=== PATIENT | female | born 1975 | race Caucasian/White ===

== ENCOUNTER 2019-10-24 13:59 | Emergency (ER) | payer MEDICARE, MEDICAID, SELFPAY ==
--- NOTE | 2019-10-24 14:02 | XR_ITS ---
WS: [id number] XR chest 1V portable [id number] REASON FOR EXAM: sob FINDINGS: A large hiatal hernia is noted. The heart is not enlarged mediastinal interfaces are normal. Peripheral lung show no pneumonia, pleural effusion, pulmonary edema, or mass effect. The hilum and apices are normal. No osseous abnormalities. XR/XR chest 1V portable [id number] IMPRESSION: Large hiatal hernia.
--- NOTE | 2019-10-24 14:02 | ECG_ITS ---
Measurements Intervals [place] Rate: 101 P: 23 TX: 157 QRS: -16 QRSD: 88 T: 58 QT: 379 QTc: 493 SINUS TACHYCARDIA LOW QRS VOLTAGE IN PRECORDIAL LEADS [QRS DEFLECTION < 1.0 mV IN CHEST LEADS] POSSIBLE ANTERIOR MYOCARDIAL INFARCTION,PROBABLY OLD Compared to ECG 08/31/2019 01:15:28 Myocardial infarct finding now present Sinus rhythm no longer present T-wave abnormality no longer present Electronically Signed On 10-24-2019 19:30:31 [employer]ES PROFESSIONAL [employer] by Odalis Johnston M.D. [email or web address]
[2019-10-24 14:05] VITALS: BP 137/94; PULSE 109; RESP 16; TEMP 36.4; O2SAT 98; BMI 31.8
[2019-10-24 15:00] LABS: Basophils # 0.1 10^3/uL (0.0-0.1); Basophils % 1.1 %; Eosinophils # 0.1 10^3/uL (0.0-0.8); Eosinophils % 3.2 %; Hematocrit 29.4 % (37.0-47.0); Hemoglobin 7.1 g/dL (11.5-15.3); Lymphocytes # 1.5 10^3/uL (0.8-4.8); Mean Corpuscular HGB Conc 24.1 g/dL (30.0-36.0); Mean Corpuscular Hemoglobin 20.4 pg (28.0-34.0); Mean Corpuscular Volume 84.5 fL (81-99); Monocytes # 0.4 10^3/uL (0.2-0.9); Monocytes % 9.6 %; Neutrophils # 2.2 10^3/uL (1.8-7.7); Neutrophils % 50.6 %; Nucleated Red Blood Cells % 0 %; Platelet Count 434 10^3/cmm (130-400); Red Blood Count 3.48 10^6/uL (4.1-5.3); Red Cell Distribution Width 19.1 % (12.1-15.1); White Blood Count 4.4 10^3/uL (4.0-10.0)
--- NOTE | 2019-10-24 15:17 | ED_ITS ---
Entered by Ruby Mann, acting as scribe for Luis Alberto Yang DO Oct 24, 2019 13:59 HPI - SOB/Dyspnea General: Chief Complaint: Shortness of Breath/Dyspnea Stated Complaint: SOB Time Seen by Provider: 10/24/19 15:16 PFSH ED PFSH: Social History (Updated 09/07/19 @ 15:45 by ARIAN Mohr) Smoking and tobacco status: current every day smoker Quit status (tobacco): has quit using tobacco Former quit date comment: Smoked for one year 10 cugarettes a day Alcohol intake: current Alcohol intake frequency: 0-2 Drinks per Day Lives independently: Yes Household members: spouse Course Vital Signs: Vital signs: Vital Signs Temperature 97.6 F 10/24/19 14:05 Pulse Rate 109 H 10/24/19 14:05 Respiratory Rate 16 10/24/19 14:05 Blood Pressure 137/94 10/24/19 14:05 Pulse Oximetry 98 10/24/19 14:05 MDM - SOB/Dyspnea Lab Data: Labs: Lab Results 10/24/19 Range/Units 14:42 WBC 4.4 (4.0-10.0) 10^3/ uL RBC 3.48 L (4.1-5.3) 10^6/u L Hgb 7.1 L (11.5-15.3) g/dL Hct 29.4 L (37.0-47.0) % MCV 84.5 (81-99) fL MCH 20.4 L (28.0-34.0) pg MCHC 24.1 L (30.0-36.0) g/dL RDW 19.1 H (12.1-15.1) % Plt Count 434 H (130-400) 10^3/c mm MPV 10.0 (7.4-10.4) fL Neut % (Auto) 50.6 % Lymph % (Auto) 35.0 % [place] % (Auto) 9.6 % Eos % (Auto) 3.2 % Baso % (Auto) 1.1 % Neut # (Auto) 2.2 (1.8-7.7) 10^3/u L Lymph # (Auto) 1.5 (0.8-4.8) 10^3/u L [place] # (Auto) 0.4 (0.2-0.9) 10^3/u L Eos # (Auto) 0.1 (0.0-0.8) 10^3/u L Baso # (Auto) 0.1 (0.0-0.1) 10^3/u L Nucleated RBC % (a uto) 0 % Nucleated RBCs # 0.0 /100WBC Imaging Data^: CXR: Radiologist's impression: [address] [address] XRay Report Signed Patient: Delores Mckeon #: [id number] : 1975Acct#:[id number] Age/Sex: 44 / FADM Date: 10/24/19 Loc: ERRoom/Bed: Attending Dr: Ordering Provider/Ordering MD: Navarro Plata MD Date of Service: 10/24/19 Procedure(s): XR chest 1V portable [id number] Accession Number(s): [id number] Report Number: [id number] WS: [id number] XR chest 1V portable [id number] REASON FOR EXAM: sob FINDINGS: A large hiatal hernia is noted. The heart is not enlarged mediastinal interfaces are normal. Peripheral lung show no pneumonia, pleural effusion, pulmonary edema, or mass effect. The hilum and apices are normal. No osseous abnormalities. XR/XR chest 1V portable [id number] IMPRESSION: Large hiatal hernia. Dictated By:Gwyn Irving DO Signed By:Gwyn Irving DOSigned Date/Time:10/24/191414 DD/ 13 Discharge Plan Discharge Prescriptions: No Action levothyroxine 200 mcg capsule 200 mcg PO ONCE RF: 0 levetiracetam [Keppra] 500 mg tablet 500 mg PO BID RF: 0 liothyronine [Cytomel] 25 mcg tablet 25 mcg PO ONCE RF: 0 furosemide [Lasix] 40 mg tablet 40 mg PO QAM RF: 0 potassium chloride [Klor-Con M20] 20 mEq tablet,ER particles/crystals 20 meq PO BID RF: 0 epinephrine [EpiPen 2-Tim] 0.3 mg/0.3 mL auto-injector 0.3 mg IM ONCE RF: 0 Dexilant 60 mg capsule,biphase delayed releas 60 mg PO ONCE RF: 0 pantoprazole [Protonix] 40 mg tablet,delayed release (DR/EC) 40 mg PO BID RF: 0 albuterol sulfate 0.63 mg/3 mL solution for nebulization 0.63 mg INHALATION TID RF: 0 mupirocin calcium 2 % cream 1 applic TOPICAL TID RF: 0 promethazine 25 mg suppository 25 mg AK Q6H PRNRF: 0 Symbicort 160-4.5 mcg/actuation HFA aerosol inhaler 2 puff INHALATION BID RF: 0 Eliquis 5 mg tablet 5 mg PO BID RF: 0 loratadine 10 mg tablet 10 mg PO ONCE RF: 0 folic acid 1 mg tablet 1 mg PO ONCE RF: 0 quetiapine 100 mg tablet 100 mg PO ONCE RF: 0 potassium chloride 20 mEq tablet extended release 20 meq PO ONCE RF: 0 ondansetron HCl 4 mg tablet 4 mg PO Q6H RF: 0 metoprolol succinate [Toprol XL] 50 mg tablet extended release 24 hr 50 mg PO ONCE RF: 0 albuterol 90 mcg/actuation aerosol INHALATION QID PRNRF: 0 Incruse Ellipta 62.5 mcg/actuation blister with device 1 inh INHALATION BID RF: 0 clonazepam 0.5 mg tablet 0.5 mg PO TID RF: 0 quetiapine [Seroquel] 100 mg tablet 100 mg PO BID RF: 0 quetiapine [Seroquel] 100 mg tablet 100 mg PO ONCE RF: 0 quetiapine [Seroquel] 25 mg tablet 25 mg PO ONCE RF: 0 Coding Level of Care Code 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
[2019-10-24 15:32] LABS: Alanine Aminotransferase 6 U/L (0-33); Albumin Level 2.9 g/dL (3.5-5.2); Alkaline Phosphatase 204 IU/L (35-105); Anion Gap 18.7 (5-19); Aspartate Amino Transferase 8 U/L (0-32); Blood Urea Nitrogen 5 mg/dL (6-20); Calcium 7.8 mg/dL (8.5-10.5); Carbon Dioxide 22 mmol/L (22-29); Chloride 102 mmol/L (98-107); Globulin 4.9 g/dL (1.3-4.6); Glomerular Filtration Rate 67.7 mL/min (90-130); Glucose 138 mg/dL (65-115); NT Pro B Type Natriuretic Pept 521 pg/mL (0-125); Potassium 3.7 mmol/L (3.5-5.1); Sodium 139 mmol/L (136-145); Total Bilirubin 0.3 mg/dL (0.15-1.2); Total Protein 7.8 g/dL (6.6-8.7)
--- NOTE | 2019-10-24 15:45 | ED_ITS ---
Entered by Ruby Mann, acting as scribe for Luis Alberto Yagn DO Oct 24, 2019 13:59 HPI - SOB/Dyspnea General: Chief Complaint: Shortness of Breath/Dyspnea Stated Complaint: SOB Time Seen by Provider: 10/24/19 15:16 Source: patient Mode of arrival: ambulatory Limitations: no limitations History of Present Illness: HPI Narrative: 44 yo Female presents to ED with complaint of shortness of breath. Pt states that she is having chest pain and gurgling in her lungs. Pt states that she feels like she does when her hemoglobin gets low. Pt states that her stools have been dark but she has also been taking iron supplements. MD elicited complaint: shortness of breath Severity: moderate Exacerbating factors: nothing Relieving factors: nothing Associated symptoms: Reports chest pain and cough; Deny abdominal pain, dizziness, extremity pain, fever(s), nausea, orthopnea, palpitations, polydipsia, polyuria, syncope or vomiting Treatment prior to arrival: none Review of Systems Const: Denies: fever, chills, body aches, fatigue, malaise or night sweats Eyes: Denies: change in vision or blurry vision ENMT: Denies: throat pain, oral sores/lesions, dental pain, nasal discharge or nasal congestion Card: Reports: chest pain, edema and swelling of feet/ankles; Denies: palpitations, irregular heart rhythm, syncope, shortness of breath on exertion, shortness of breath when lying down or leg pain with exertion Resp: Reports: shortness of breath and non-productive cough; Denies: productive cough or wheezing GI: Denies: abdominal pain, nausea, vomiting, vomiting blood, coffee grounds in vomit, difficulty swallowing, heartburn/indigestion, diarrhea, constipation, cramping, blood in stool or black tarry stool : Denies: flank pain, painful urination, urinary frequency, urinary urgency, urinary incontinence or blood in urine Musc: Denies: neck pain, back pain, extremity pain, extremity swelling, joint pain or joint swelling Skin/Breast: Denies: rash, itching or redness Neuro: Denies: headache, numbness in extremities, weakness in extremities, changes in sensation, lack of coordination, difficulty walking, frequent falls, dizziness, vertigo or confusion Psych: Denies: anxiety, depression, loss of interest, visual hallucinations, auditory hallucinations, suicidal ideation or homicidal ideation Endo: Denies: excessive urination, excessive thirst, tired all the time or cold intolerance Sonido/Lymph: Denies: easy bruising, easy bleeding, petechiae, enlarged lymph nodes or tender lymph nodes PFSH ED PFSH: Social History Smoking and tobacco status: current every day smoker Quit status (tobacco): has quit using tobacco Former quit date comment: Smoked for one year 10 cugarettes a day Alcohol intake: current Alcohol intake frequency: 0-2 Drinks per Day Lives independently: Yes Household members: spouse Physical Exam Const: COMMON NORMALS: average body habitus, oriented x3 and alert GENERAL APPEARANCE: cooperative, comfortable, well kempt and well developed NUTRITIONAL APPEARANCE: obese ORIENTATION/CONSCIOUSNESS: Yes awake, Yes oriented to person and Yes oriented to place HENMT: COMMON NORMALS: normocephalic, head/scalp atraumatic, EAC's normal, TM's normal bilaterally, external nose normal, moist oral mucous membranes and o ropharynx normal HEAD & SCALP: normocephalic and atraumatic NOSE: external nose normal EXTERNAL AUDITORY CANAL: EAC's normal TYMPANIC MEMBRANE: TM's normal bilaterally MOUTH: oral and palatal mucosa normal, lip normal and tongue normal THROAT: posterior oropharynx normal and tonsils normal Eye: COMMON NORMALS: PERRL, EOMs intact bilaterally, conjunctivae normal and no scleral icterus CONJUNCTIVA: Yes conjunctivae normal PUPIL: Yes PERRL Neck/C-Spine: COMMON NORMALS: full ROM, no lymphadenopathy, supple, no meningeal signs and thyroid normal THYROID: thyroid normal and asymmetrical Lymph: LYMPHATIC: no lymphadenopathy noted Resp: COMMON NORMALS: normal respiratory effort, no retractions, no use of accessory muscles and clear to auscultation bilaterally AUSCULTATION: clear to auscultation bilaterally Cardio: COMMON NORMALS: regular rate and regular rhythm RATE: regular rate RHYTHM: regular rhythm HEART SOUNDS: no murmurs GI: COMMON NORMALS: normal to inspection, nondistended, normoactive bowel sounds, soft to palpation and no hepatosplenomegaly PALPATION: Yes soft and Yes no hepatosplenomegaly : COMMON NORMALS: Yes no CVA tenderness BLADDER/KIDNEY EXAM: Yes no CVA tenderness Back/Pelvis: COMMON NORMALS: no CVA tenderness LUMBAR SPINE/LOWER BACK: Yes normal to inspection Extremity: COMMON NORMALS: no clubbing, cyanosis or edema, no calf tenderness and no pedal edema Neuro: COMMON NORMALS: oriented x3 SENSORIUM/ORIENTATION: Yes alert, Yes oriented to person and Yes oriented to place MENINGEAL SIGNS: Yes no meningeal signs Psych: APPEARANCE: Yes well kempt Skin: COMMON NORMALS: no rashes or lesions noted and skin turgor normal GENERAL SKIN EXAM: no rashes or lesions noted and turgor normal Course ED course: Prolonged ER course due to difficulty establishing IV for CTA. Discussed the patient does have pulmonary nodules only followed up she also needs to have anemia followed up she is chronically been anemic but she is still very low at this point and on think she needs to be transfused but likely may need to in the relatively near future encourage her to follow-up early next week return if has problems. Reevaluation(s): Reevaluation #1: Patient's IV was established at 19:40 after multiple attempts by nursing staff on day shift and mine shifter, causing delay in patient's CTA and further treatment. Vital Signs: Vital signs: Vital Signs Temperature 97.6 F 10/24/19 14:05 Pulse Rate 109 H 10/24/19 14:05 Respiratory Rate 16 10/24/19 14:05 Blood Pressure 137/94 10/24/19 14:05 Pulse Oximetry 98 10/24/19 14:05 MDM - SOB/Dyspnea Lab Data: Labs: Lab Results 10/24/19 10/24/19 Range/Units 14:42 14:42 WBC 4.4 (4.0-10.0) 10^3/ uL RBC 3.48 L (4.1-5.3) 10^6/u L Hgb 7.1 L (11.5-15.3) g/dL Hct 29.4 L (37.0-47.0) % MCV 84.5 (81-99) fL MCH 20.4 L (28.0-34.0) pg MCHC 24.1 L (30.0-36.0) g/dL RDW 19.1 H (12.1-15.1) % Plt Count 434 H (130-400) 10^3/c mm MPV 10.0 (7.4-10.4) fL Neut % (Auto) 50.6 % Lymph % (Auto) 35.0 % [place] % (Auto) 9.6 % Eos % (Auto) 3.2 % Baso % (Auto) 1.1 % Neut # (Auto) 2.2 (1.8-7.7) 10^3/u L Lymph # (Auto) 1.5 (0.8-4.8) 10^3/u L [place] # (Auto) 0.4 (0.2-0.9) 10^3/u L Eos # (Auto) 0.1 (0.0-0.8) 10^3/u L Baso # (Auto) 0.1 (0.0-0.1) 10^3/u L Nucleated RBC % (a uto) 0 % Nucleated RBCs # 0.0 /100WBC Sodium 139 (136-145) mmol/L Potassium 3.7 (3.5-5.1) mmol/L Chloride 102 (98-107) mmol/L Carbon Dioxide 22 (22-29) mmol/L Anion Gap 18.7 (5-19) BUN 5 L (6-20) mg/dL Creatinine 0.9 (0.5-0.9) mg/dL GFR Calculation 67.7 L (90-130) mL/min Glucose 138 H (65-115) mg/dL Calcium 7.8 L (8.5-10.5) mg/dL Total Bilirubin 0.3 (0.15-1.2) mg/dL AST 8 (0-32) U/L ALT 6 (0-33) U/L Alkaline Phosphata se 204 H (35-105) IU/L NT-Pro-B Natriuret Pep 521 H (0-125) pg/mL Total Protein 7.8 (6.6-8.7) g/dL Albumin 2.9 L (3.5-5.2) g/dL Globulin 4.9 H (1.3-4.6) g/dL Imaging Data^: CXR: Radiologist's impression: [address] [address] XRay Report Signed Patient: Delores Mckeon AUnit #: [id number] : 1975Acct#:[id number] Age/Sex: 44 / FADM Date: 10/24/19 Loc: ERRoom/Bed: Attending Dr: Ordering Provider/Ordering MD: Navarro Plata MD Date of Service: 10/24/19 Procedure(s): XR chest 1V portable [id number] Accession Number(s): [id number] Report Number: [id number] WS: [id number] XR chest 1V portable [id number] REASON FOR EXAM: sob FINDINGS: A large hiatal hernia is noted. The heart is not enlarged mediastinal interfaces are normal. Peripheral lung show no pneumonia, pleural effusion, pulmonary edema, or mass effect. The hilum and apices are normal. No osseous abnormalities. XR/XR chest 1V portable [id number] IMPRESSION: Large hiatal hernia. Dictated By:Gwyn Irving DO Signed By:Gwyn Irving DOSigned Date/Time:10/24/191414 DD/ 13 CTA Chest: Radiologist's impression: [place] [address] CT Scan Report Signed Patient: Delores Mckeon #: [id number] : 1975Acct#:[id number] Age/Sex: 44 / FADM Date: 10/24/19 Loc: ERRoom/Bed: Attending Dr: Ordering Provider/Ordering MD: Luis Alberto Yang DO Date of Service: 10/24/19 Procedure(s): CT angio chest PE protcl [id number] Accession Number(s): [id number] Report Number: [id number] PROCEDURE INFORMATION: Exam: CT Angiography Chest With Contrast Exam date and time: 10/24/2019 8:00 PM Age: 44 years old Clinical indication: Shortness of breath; Prior surgery; Surgery date: 6+ months; Surgery type: Port w revision; Patient HX: SOB w HX of dvt and chf; Additional info: Dyspnea, HX of dvt TECHNIQUE: Imaging protocol: Computed tomographic angiography of the chest with intravenous contrast. 3D rendering: MIP and/or 3D reconstructed images were created by the technologist. Total DLP: 572.55 mGy-cm Radiation optimization: All CT scans at this facility use at least one of these dose optimization techniques: automated exposure control; mA and/or kV adjustment per patient size (includes targeted exams where dose is matched to clinical indication); or iterative reconstruction. Contrast material: VISI 320; Contrast volume: 95 ml; Contrast route: 18G; COMPARISON: CTA Chest-Pulmonary Emb [id number] 11/28/2016 11:28 PM FINDINGS: Limitations: Study is somewhat limited by patient motion. Pulmonary arteries: There is no evidence of filling defects within the pulmonary arterial circulation to suggest pulmonary embolism. Aorta: Unremarkable. No aortic aneurysm. No aortic dissection. Lungs: There is 11 x 13 x 9 mm nodule in the right lower lobe abutting the major fissure on image number [id number] which is larger than on prior examinations. Further evaluation such as with PET CT scan is suggested. Pleural space: Unremarkable. No pneumothorax. No pleural effusion. Heart: Unremarkable. No cardiomegaly. No pericardial effusion. Mediastinum: A large hiatal hernia is present. Liver: There is an 8 mm benign-appearing cyst in the left lobe of the liver. Adrenals: The adrenal glands are normal. Lymph nodes: There are enlarged bilateral axillary lymph nodes which are changed from 11/28/2016, largest on the right measuring 13 x 19 mm and on the left measuring 13 x 17 mm. Further evaluation is suggested. Bones/joints: Unremarkable. No acute fracture. Soft tissues: Unremarkable. CT/CT angio chest PE protcl [id number] IMPRESSION: 1. No evidence of pulmonary embolism. 2. Enlarging right pulmonary nodule 3. Bilateral axillary adenopathy 4. Large hiatus hernia. Radiation Dose CTDIVOL = (mGy): DLP = 572.55 (mGy-cm) Dictated By:Elio Braden Signed By:Yobany Bradenigned Date/Time:10/24/192052 DD/ 51 Discharge Plan Discharge Patient Disposition: Home, Self-Care Clinical Impression: Pulmonary nodule, Axillary adenopathy, Pleuritic chest pain, COPD (chronic obstructive pulmonary disease) Condition: Stable Prescriptions: New promethazine 12.5 mg tablet 12.5 mg PO Q6H PRN (Reason: nausea and vomiting) Qty: 10 RF: 0 tramadol 50 mg tablet 50 mg PO Q6H PRN (Reason: pain) Qty: 14 RF: 0 No Action levothyroxine 200 mcg capsule 200 mcg PO ONCE RF: 0 levetiracetam [Keppra] 500 mg tablet 500 mg PO BID RF: 0 liothyronine [Cytomel] 25 mcg tablet 25 mcg PO ONCE RF: 0 furosemide [Lasix] 40 mg tablet 40 mg PO QAM RF: 0 potassium chloride [Klor-Con M20] 20 mEq tablet,ER particles/crystals 20 meq PO BID RF: 0 epinephrine [EpiPen 2-Tim] 0.3 mg/0.3 mL auto-injector 0.3 mg IM ONCE RF: 0 Dexilant 60 mg capsule,biphase delayed releas 60 mg PO ONCE RF: 0 pantoprazole [Protonix] 40 mg tablet,delayed release (DR/EC) 40 mg PO BID RF: 0 albuterol sulfate 0.63 mg/3 mL solution for nebulization 0.63 mg INHALATION TID RF: 0 mupirocin calcium 2 % cream 1 applic TOPICAL TID RF: 0 promethazine 25 mg suppository 25 mg [place] Q6H PRNRF: 0 Symbicort 160-4.5 mcg/actuation HFA aerosol inhaler 2 puff INHALATION BID RF: 0 Eliquis 5 mg tablet 5 mg PO BID RF: 0 loratadine 10 mg tablet 10 mg PO ONCE RF: 0 folic acid 1 mg tablet 1 mg PO ONCE RF: 0 quetiapine 100 mg tablet 100 mg PO ONCE RF: 0 potassium chloride 20 mEq tablet extended release 20 meq PO ONCE RF: 0 ondansetron HCl 4 mg tablet 4 mg PO Q6H RF: 0 metoprolol succinate [Toprol XL] 50 mg tablet extended release 24 hr 50 mg PO ONCE RF: 0 albuterol 90 mcg/actuation aerosol INHALATION QID PRNRF: 0 Incruse Ellipta 62.5 mcg/actuation blister with device 1 inh INHALATION BID RF: 0 clonazepam 0.5 mg tablet 0.5 mg PO TID RF: 0 quetiapine [Seroquel] 100 mg tablet 100 mg PO BID RF: 0 quetiapine [Seroquel] 100 mg tablet 100 mg PO ONCE RF: 0 quetiapine [Seroquel] 25 mg tablet 25 mg PO ONCE RF: 0 Discharge Orders: Discharge Order (Routine); Ordered 10/24/19 Ordered By: Luis Alberto Yang Referrals: Jacek Ventura MD [Physician] - (Follow-up on pulmonary nodules and axillary lymphadenopathy seen on CT 10/24/2019) Discharge Diet: Usual diet Discharge Activity: Increase activity as tolerated Activity Restrictions/Additional Instructions: supermarket manager will make arrangements for you for follow-up with Dr. Ventura Interventions: ED Discharge Assessment Last Done: 10/24/19 22:04 Discharge Date/Time: 10/24/19 22:00 Coding Level of Care Code ED Local Hazmat Driver for Chg Fwd Exam Comprehensive The documentation recorded by the Johnathan juárez Carmen, accurately reflects the service I personally performed and the decisions made by Celia lopez Curtis L, DO Oct 24, 2019 13:59
--- NOTE | 2019-10-24 16:24 | CTR_ITS ---
PROCEDURE INFORMATION: Exam: CT Angiography Chest With Contrast Exam date and time: 10/24/2019 8:00 PM Age: 44 years old Clinical indication: Shortness of breath; Prior surgery; Surgery date: 6+ months; Surgery type: Port w revision; Patient HX: SOB w HX of dvt and chf; Additional info: Dyspnea, HX of dvt TECHNIQUE: Imaging protocol: Computed tomographic angiography of the chest with intravenous contrast. 3D rendering: MIP and/or 3D reconstructed images were created by the technologist. Total DLP: 572.55 mGy-cm Radiation optimization: All CT scans at this facility use at least one of these dose optimization techniques: automated exposure control; mA and/or kV adjustment per patient size (includes targeted exams where dose is matched to clinical indication); or iterative reconstruction. Contrast material: VISI 320; Contrast volume: 95 ml; Contrast route: 18G; COMPARISON: CTA Chest-Pulmonary Emb [id number] 11/28/2016 11:28 PM FINDINGS: Limitations: Study is somewhat limited by patient motion. Pulmonary arteries: There is no evidence of filling defects within the pulmonary arterial circulation to suggest pulmonary embolism. Aorta: Unremarkable. No aortic aneurysm. No aortic dissection. Lungs: There is 11 x 13 x 9 mm nodule in the right lower lobe abutting the major fissure on image number [id number] which is larger than on prior examinations. Further evaluation such as with PET CT scan is suggested. Pleural space: Unremarkable. No pneumothorax. No pleural effusion. Heart: Unremarkable. No cardiomegaly. No pericardial effusion. Mediastinum: A large hiatal hernia is present. Liver: There is an 8 mm benign-appearing cyst in the left lobe of the liver. Adrenals: The adrenal glands are normal. Lymph nodes: There are enlarged bilateral axillary lymph nodes which are changed from 11/28/2016, largest on the right measuring 13 x 19 mm and on the left measuring 13 x 17 mm. Further evaluation is suggested. Bones/joints: Unremarkable. No acute fracture. Soft tissues: Unremarkable. CT/CT angio chest PE protcl [id number] IMPRESSION: 1. No evidence of pulmonary embolism. 2. Enlarging right pulmonary nodule 3. Bilateral axillary adenopathy 4. Large hiatus hernia. Radiation Dose CTDIVOL = (mGy): DLP = 572.55 (mGy-cm)
[2019-10-24] MEDS: LORazepam 2 mg/mL INJ 1 mL 1 MG IVP (17:14)
[2019-10-24] MEDS: hydrocortisone 100 mg/2 mL SDV IVP (20:02)
[2019-10-24] MEDS: diphenhydrAMINE 50 mg/mL SDV 1mL IVP (20:02)
[2019-10-24] MEDS: iodixanol 320 mg/mL 100mL Btl IV (20:19)
--- NOTE | 2019-10-27 14:08 | DCPLANNER ---
sales strategy manager had message to schedule a follow up appointment for patient with Dr. Ventura in [facility]. sales strategy manager called [facility], spoke with Renee, a follow up appointment was scheduled for , November 05, 2019 at 2:[address] Ventura. Clinic will call patient with appointment information.
--- NOTE | 2019-11-12 09:15 | DCPLANNER ---
Patient did not attend appointment scheduled for 11.05.19 with [facility].
== END 2019-10-24 22:00 | disposition home or self-care (01) ==
PROVIDERS: Emergency Medicine; Emergency Provider Family Medicine; PCP Internal Medicine
DX: R07.81 Pleurodynia (principal); J44.9 Chronic obstructive pulmonary disease, unspecified; R91.1 Solitary pulmonary nodule; R59.0 Localized enlarged lymph nodes; E66.9 Obesity, unspecified; D64.9 Anemia, unspecified; Z79.51 Long term (current) use of inhaled steroids; Z87.891 Personal history of nicotine dependence
CPT/HCPCS: 36415; 71045; 71275; 80053; 83880; 85025; 93005; 96374; 96375; 99282; 99284; J1200; J1720; J2060; Q9967

== ENCOUNTER 2019-12-18 05:48 | Emergency (ER) | payer MEDICARE, MEDICAID, SELFPAY ==
[2019-12-18 06:00] VITALS: BP 115/62; PULSE 84; RESP 24; TEMP 36.5; O2SAT 97; BMI 36.6
--- NOTE | 2019-12-18 06:10 | ECG_ITS ---
Measurements Intervals [place] Rate: 86 P: 27 NE: 175 QRS: -6 QRSD: 94 T: 0 QT: 381 QTc: 457 SINUS RHYTHM LOW QRS VOLTAGE IN PRECORDIAL LEADS [QRS DEFLECTION < 1.0 mV IN CHEST LEADS] NONSPECIFIC ST & T-WAVE ABNORMALITY Compared to ECG 10/24/2019 15:37:51 T-wave abnormality now present Sinus tachycardia no longer present Myocardial infarct finding no longer present Electronically Signed On 12-18-2019 18:25:01 CDT by Magda Bennett M.D. [email or web address]
--- NOTE | 2019-12-18 06:10 | XR_ITS ---
WS: [id number] PORTABLE CHEST HISTORY: sob COMPARISON: 10/24/2019 Minimal opacification at the RIGHT lung base is new. Ill-defined and subsegmental. LEFT lung is clear . No pleural effusion or pneumothorax. Cardiac size: Mildly enlarged cardiac silhouette. Mediastinum/Aorta: No mediastinal widening. Large hiatal hernia. No osseous abnormality seen. XR/XR chest 1V portable [id number] IMPRESSION: 1. Minimal atelectasis or pneumonitis at the RIGHT lung base. 2. Large hiatal hernia.
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
[2019-12-18 07:02] VITALS: BP 120/69; PULSE 90; RESP 18; O2SAT 100
[2019-12-18 07:42] VITALS: BP 123/95; PULSE 90; RESP 18; O2SAT 100
[2019-12-18 07:58] LABS: Influenza A by IFA Negative (Negative); Influenza B by IFA Negative (Negative)
== END 2019-12-18 07:40 | disposition left against medical advice (07) ==
PROVIDERS: Emergency Medicine; Emergency Provider Family Medicine; PCP Internal Medicine
DX: Z53.21 Procedure and treatment not carried out due to patient leaving prior to being seen by health care provider (principal); J44.9 Chronic obstructive pulmonary disease, unspecified; I50.9 Heart failure, unspecified
CPT/HCPCS: 12345; 71045; 87804; 93005; 99282; 99283; J1940

== ENCOUNTER 2020-01-05 12:19 | Outpatient (CLI) | payer MEDICARE, MEDICAID, SELFPAY ==
--- NOTE | 2020-01-05 12:42 | XR_ITS ---
WS: [id number] XR chest 2V* [id number] REASON FOR EXAM: Shortness of breath FINDINGS: Prominent hiatal hernia is present. The heart is not grossly enlarged. The lung hernandez are well aerated there is no pneumonia, pleural effusion, pulmonary edema, The hilum and apices are normal. XR/XR chest 2V* [id number] IMPRESSION: Prominent hiatal hernia.
[2020-01-05 12:43] LABS: Basophils % 0.9 %; Eosinophils # 0.2 10^3/uL (0.0-0.8); Eosinophils % 5.7 %; Lymphocytes # 1.2 10^3/uL (0.8-4.8); Mean Corpuscular HGB Conc 24.1 g/dL (30.0-36.0); Mean Corpuscular Hemoglobin 17.1 pg (28.0-34.0); Monocytes # 0.3 10^3/uL (0.2-0.9); Monocytes % 7.1 %; Neutrophils # 2.4 10^3/uL (1.8-7.7); Neutrophils % 57.3 %; Nucleated Red Blood Cells % 0 %; Platelet Count 310 10^3/cmm (130-400); Red Blood Count 2.86 10^6/uL (4.1-5.3); Red Cell Distribution Width 18.1 % (12.1-15.1); White Blood Count 4.2 10^3/uL (4.0-10.0)
[2020-01-05 12:53] LABS: Hematocrit 20.3 % (37.0-47.0); Hemoglobin 4.9 g/dL (11.5-15.3)
[2020-01-06 15:41] LABS: Immunoglobulin E 18 kU/L (<OR=114)
== END 2020-01-05 12:20 | disposition home or self-care (01) ==
LOC: LAB 12:21
PROVIDERS: PCP Internal Medicine; Visit Provider Internal Medicine Critical Care Medicine
DX: R06.02 Shortness of breath (principal); K44.9 Diaphragmatic hernia without obstruction or gangrene; R06.00 Dyspnea, unspecified
CPT/HCPCS: 36415; 71046; 82785; 85025

== ENCOUNTER 2020-01-05 19:12 | Observation (INO) | payer MEDICARE, MEDICAID, SELFPAY ==
[2020-01-05 19:24] VITALS: PULSE 102; RESP 18; TEMP 36; O2SAT 91; BMI 33.6
[2020-01-05 20:20] LABS: Basophils # 0.1 10^3/uL (0.0-0.1); Basophils % 1.1 %; Eosinophils # 0.3 10^3/uL (0.0-0.8); Eosinophils % 5.6 %; Hematocrit 21.8 % (37.0-47.0); Lymphocytes # 1.3 10^3/uL (0.8-4.8); Lymphocytes % 28.7 %; Mean Corpuscular HGB Conc 24.3 g/dL (30.0-36.0); Mean Corpuscular Hemoglobin 17.3 pg (28.0-34.0); Mean Corpuscular Volume 71.2 fL (81-99); Mean Platelet Volume 9.3 fL (7.4-10.4); Monocytes # 0.3 10^3/uL (0.2-0.9); Monocytes % 7.2 %; Neutrophils # 2.5 10^3/uL (1.8-7.7); Neutrophils % 57.2 %; Nucleated Red Blood Cells % 0 %; Platelet Count 356 10^3/cmm (130-400); Red Blood Count 3.06 10^6/uL (4.1-5.3); Red Cell Distribution Width 18.3 % (12.1-15.1); White Blood Count 4.4 10^3/uL (4.0-10.0)
[2020-01-05 20:41] LABS: Hemoglobin 5.3 g/dL (11.5-15.3)
--- NOTE | 2020-01-05 20:41 | ECG_ITS ---
Measurements Intervals [place] Rate: 86 P: 39 OK: 163 QRS: 13 QRSD: 86 T: 43 QT: 389 QTc: 466 SINUS RHYTHM NONSPECIFIC T-WAVE ABNORMALITY Compared to ECG 12/18/2019 07:28:10 No significant changes Electronically Signed On 01-06-2020 17:11:27 CDT by Gamaliel Friend M.D. [email or web address]
[2020-01-05 20:43] LABS: INR 1.07 (0.8-1.2)
[2020-01-05 20:44] LABS: Partial Thromboplastin Time 27.5 SECONDS (23.9-36.7)
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
[2020-01-05 20:52] LABS: Alanine Aminotransferase < 5 U/L (0-33); Albumin Level 3.5 g/dL (3.5-5.2); Alkaline Phosphatase 212 IU/L (35-105); Aspartate Amino Transferase 8 U/L (0-32); Blood Urea Nitrogen 9 mg/dL (6-20); Calcium 7.8 mg/dL (8.5-10.5); Carbon Dioxide 21 mmol/L (22-29); Chloride 99 mmol/L (98-107); Globulin 4.7 g/dL (1.3-4.6); Glomerular Filtration Rate 48.6 mL/min (90-130); Glucose 103 mg/dL (65-115); Osmolality Calculated 272 mOsm/kg (285-295); Sodium 133 mmol/L (136-145); Total Bilirubin 0.5 mg/dL (0.15-1.2); Total Protein 8.2 g/dL (6.6-8.7)
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
--- NOTE | 2020-01-05 22:41 | ECG_ITS ---
Measurements Intervals Scenic Rate: 92 P: 31 MO: 155 QRS: 6 QRSD: 89 T: 50 QT: 386 QTc: 478 SINUS RHYTHM NONSPECIFIC T-WAVE ABNORMALITY Compared to ECG 12/18/2019 07:28:10 No significant changes Electronically Signed On 01-06-2020 17:14:53 CDT by Gamaliel Friend M.D. [email or web address]
[2020-01-05] MEDS: morphine 4 mg/mL SDV 1 mL IVP (23:20)
[2020-01-05 23:57] LABS: HCG, Serum Qual Negative (Negative)
[2020-01-05] MEDS: lidocaine 1% INJ 20 mL SUBCUT (23:59)
[2020-01-05] MEDS: calcium gluconate 0.1 gm/mL 10% SDV 10mL 1 GM IVP (23:59)
[2020-01-06] VITALS (32 sets, daily range): BP systolic 97–139; BP diastolic 62–83; PULSE 74–107; RESP 16–24; TEMP 36.4–37.2; O2SAT 20–100
[2020-01-06] MEDS: sodium chloride 0.9% 1,000 ML 100 ML IV
[2020-01-06 00:02] LABS: Troponin(5th) Baseline 6 ng/mL (0-10)
[2020-01-06] MEDS: ipratropium-albuterol 3 mL Neb INHALATION ×3 (02:33→21:33)
--- NOTE | 2020-01-06 02:41 | ECG_ITS ---
Measurements Intervals Fidelity Rate: 90 P: 43 CA: 158 QRS: 13 QRSD: 90 T: 73 QT: 379 QTc: 464 SINUS RHYTHM LOW QRS VOLTAGE IN PRECORDIAL LEADS [QRS DEFLECTION < 1.0 mV IN CHEST LEADS] NONSPECIFIC T-WAVE ABNORMALITY INTERPRETATION BASED ON A DEFAULT AGE OF 40 YEARS Compared to ECG 12/18/2019 07:28:10 No significant changes Electronically Signed On 01-06-2020 17:16:02 CDT by Gamaliel Friend M.D. [email or web address]
[2020-01-06 02:55] LABS: Lactate Dehydrogenase 339 U/L (135-214)
[2020-01-06 02:58] LABS: Alcohol Level < 10 mg/dL (0-10)
[2020-01-06] MEDS: sodium chloride 0.9% (100 ml) 100 ML (04:06)
[2020-01-06] MEDS: morphine 4 mg/mL SDV 1 mL 2 MG IVP ×5 (04:26→21:32)
--- NOTE | 2020-01-06 05:58 | PC.NURSE ---
Patient has complained of pain in lower abdomen and not able to void throughout the night. Bladder scan showed 743 ml in bladder. This nurse called Dr. Dennis who then ordered placement of hylton catheter. Hylton was then placed by this nurse with 650 urine output. Patient stated she felt immediate relief and tolerated well.
[2020-01-06] MEDS: pantoprazole 40 mg SDV IVP ×2 (08:29→17:30)
[2020-01-06] MEDS: levothyroxine 100 mcg Tablet 200 MCG PO (08:44)
[2020-01-06] MEDS: CLONazepam 0.5 mg Tablet PO ×3 (08:44→21:51)
--- NOTE | 2020-01-06 10:25 | PC.CHAP ---
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 child welfare assistant visit [] Patient/Family/Request visit [] Outpatient visit [] Follow-up visit [] Physician referral [] Code/Alert [x] Routine visit [] Staff referral [] Actively dying [] Patient sleeping [] Family support [] [] Out of room [] Palliative care [] [] Receiving care in room [] Pre-surgical visit [] Trauma [] Long length of stay [] ICU visit [] Other: Relational/Emotional Strength [] Patient feels connected with others/family/visitors/staff [] Distress [] Loneliness/isolation [] Abandonment Spirituality of Patient [] Person of Angy [] Attends Episcopalian of their Angy [x] Believes in Prayer [] Reads Bible or Hindu materials [] There are Spiritual issues to be addressed Time Study Technologist Interventions [x] Prayer [] Active listening [] Non-anxious presence [] Spiritual/emotional support [] Crisis/trauma care [] Spiritual counseling [] Bereavement support [] Provided bereavement packet [] Provided Bible/devotional materials [] Provided toy/stuffed animal, coloring book to patient or family member [] Provided Communion [] Anointing/Cavendish [] Salvation [x] Completed spiritual assessment [] Other: Impact on Illness or Injury [] Angry [] Fearful [] Anxious [] Often cries [] Exhaustion [] Unable to work [] Unable to attend sabianism [] Unable to walk/stand [] Unable to read [] Unable to drive [] Unable to eat/drink [] Unable to sleep [] Unable to be with family [] Patient intubated [] Other: Summary Patient's issue is being address by staff. Patient is ready to rest Time spent with patient 10min
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
[2020-01-06] MEDS: FUROsemide 10 mg/mL SDV 2mL 20 MG IVP (13:52)
[2020-01-06 15:20] LABS: Basophils % 0.5 %; Eosinophils # 0.3 10^3/uL (0.0-0.8); Eosinophils % 6.5 %; Hematocrit 26.7 % (37.0-47.0); Hemoglobin 7.5 g/dL (11.5-15.3); Lymphocytes % 24.4 %; Mean Corpuscular HGB Conc 28.1 g/dL (30.0-36.0); Mean Corpuscular Hemoglobin 20.9 pg (28.0-34.0); Mean Corpuscular Volume 74.4 fL (81-99); Mean Platelet Volume 9.7 fL (7.4-10.4); Monocytes # 0.4 10^3/uL (0.2-0.9); Monocytes % 9.5 %; Neutrophils # 2.4 10^3/uL (1.8-7.7); Neutrophils % 58.9 %; Nucleated Red Blood Cells % 0 %; Platelet Count 286 10^3/cmm (130-400); Red Blood Count 3.59 10^6/uL (4.1-5.3); Red Cell Distribution Width 20.6 % (12.1-15.1)
[2020-01-06 15:49] LABS: Anion Gap 14.1 (5-19); Blood Urea Nitrogen 7 mg/dL (6-20); Calcium 7.6 mg/dL (8.5-10.5); Carbon Dioxide 24 mmol/L (22-29); Chloride 100 mmol/L (98-107); Glomerular Filtration Rate 67.7 mL/min (90-130); Glucose 99 mg/dL (65-115); Osmolality Calculated 274 mOsm/kg (285-295); Potassium 4.1 mmol/L (3.5-5.1); Sodium 134 mmol/L (136-145)
[2020-01-06 15:50] LABS: Lactic Acid level (Lactate) 0.8 mmol/L (0.5-2.2)
--- NOTE | 2020-01-06 16:56 | PM.PN ---
Subjective Subjective: Interval history: Dr. Crowley's note sreviewed. Patient states she previously followed with hematology for BM suppression and received tranfusions from time to time. No ghassan or hematemesis today. pending FOB at no BM yet. hemodynamically stable. Completed one unit transfusion thus far. 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 Urinary Catheter Management^: Cosme: Cath Placed During This Visit: yes Reason for Continuing Indwelling Catheter: Acute Urinary Retention or Obstruction Urinary Catheter Date of Insertion: 01/06/20 Urinary Catheter Time of Insertion: 05:46 Data : 01/06/20 15:11 01/06/20 15:11 A&P Assessment and plan (1) Anemia: Status: Acute Qualifiers: Anemia type: unspecified type Qualified Code(s): D64.9 - Anemia, unspecified (2) Microcytic anemia: Status: Acute (3) Pulmonary nodule, right: Status: Acute (4) GERD with esophagitis: Status: Acute (5) Hypocalcemia: Status: Acute (6) Non-pitting edema: Status: Acute (7) Acute worsening of stage 3 chronic kidney disease: Status: Acute Additional A&P Information Acute on chronic microcytic anemia Baseline hemoglobin 7-10g/dl, recurrent episodes of iron deficiency anemia, previosuly followed with hematology for what appears to be BM suppression appreciate Dr. Sue's consult No acute indication for endoscopy at this point FOBT ordered History of hepatitis C with splenomegaly Hypersplenism could be the cause of her anemia, patient is denying esophageal varices or portal hypertension in the past Hypocalcemia without neurological symptoms Calcium gluconate given Albumin 3.5 Acute on chronic kidney disease stage III exacerbation due to hypotension and blood loss improved now History of PE, not able tolerate anticoagulation because of GI bleed IVC filter was placed 2016 It has not been removed Hiatal hernia with underlying GERD and esophagitis Patient has been having recurrent bouts of shortness of breath, hoarseness of voice due to her hiatal hernia, she is taking Protonix at home, Right pulmonary nodule Recent PET scan negative for activity, currently following up with Dr. Ventura and Dr. Escalera Attestations Medical Necessity Statement*: getting blood transfusion for symptomatic anemia, monitor H&H Coding Level of Care Code Acute Surgical Clinical Reviewer for Chg Fwd Diagnoses Anemia D64.9 Anemia type: unspecified type Microcytic anemia D50.9 Pulmonary nodule, right R91.1 GERD with esophagitis K21.0 Hypocalcemia E83.51 Non-pitting edema R60.9 Acute worsening of stage 3 chronic kidney disease N18.3
[2020-01-06] MEDS: sodium chloride 0.9% (100 ml) 100 ML 250 ML ×2 (17:27→17:28)
--- NOTE | 2020-01-06 18:52 | PC.NURSE ---
hylton removed as ordered, had 950 clear yellow urine taken out of hylton bag before taking hylton out, 9ml in balloon, pt tolerated well.
[2020-01-06 22:05] LABS: Hematocrit 30.5 % (37.0-47.0); Hemoglobin 8.6 g/dL (11.5-15.3)
[2020-01-07] VITALS (14 sets, daily range): BP systolic 104–134; BP diastolic 67–79; PULSE 79–104; RESP 15–20; TEMP 36.5–36.9; O2SAT 93–99
[2020-01-07] MEDS: morphine 4 mg/mL SDV 1 mL 2 MG IVP ×4 (01:30→14:32)
[2020-01-07] MEDS: guaiFENesin-dextromethorphan UDC 10 mL 30 ML PO (01:40)
[2020-01-07] MEDS: ipratropium-albuterol 3 mL Neb INHALATION ×2 (03:40→09:04)
[2020-01-07] MEDS: guaiFENesin-dextromethorphan UDC 10 mL 20 ML PO ×2 (06:18→10:28)
[2020-01-07 06:24] LABS: Hematocrit 31.2 % (37.0-47.0); Hemoglobin 8.6 g/dL (11.5-15.3)
[2020-01-07] MEDS: pantoprazole 40 mg SDV IVP (09:15)
[2020-01-07] MEDS: levothyroxine 100 mcg Tablet 200 MCG PO (09:15)
[2020-01-07] MEDS: CLONazepam 0.5 mg Tablet PO ×2 (09:15→14:33)
--- NOTE | 2020-01-07 14:01 | PM.DCS ---
Discharge Providers Date of Admission: 01/05/20 21:51 Date of Discharge: January 07, 2020 Attending Provider at Admission: Magda Dennis MD Attending Provider at Discharge: Klaudia Smith MD Primary Care Provider: Octaviano Sue MD Diagnoses at Discharge Discharge Diagnosis (1) Anemia: Status: Acute Qualifiers: Anemia type: unspecified type Qualified Code(s): D64.9 - Anemia, unspecified (2) Microcytic anemia: Status: Acute (3) Pulmonary nodule, right: Status: Acute (4) GERD with esophagitis: Status: Acute (5) Hypocalcemia: Status: Acute (6) Non-pitting edema: Status: Acute (7) Acute worsening of stage 3 chronic kidney disease: Status: Acute Reason for Visit Reason for Visit: Reason For Visit: ab labs Hospital Course Discharge Summary: Delores Mckeon is a 44 year old female who carries diagnosis of right pulmonary nodule, morbid obesity, recurrent blood transfusion due to blood loss anemia, iron deficiency anemia, gastritis, GERD, Ghosh's esophagus, diverticular disease, previous history of alcohol abuse, splenomegaly who came in for shortness of breath and lethargy. She saw Dr. Escalera for right pulmonary nodule and COPD, blood work at the clinic came back with hemoglobin of 4.9, she was asked to come to the ER for further evaluation. Patient is stating that for last couple of months she has been very tired and lethargic, she would get short of breath at rest and on exertion, she has chronic shortness of breath for which she takes 4 L of oxygen [id number], he has not noticed any fever, sick contacts. Upon presentation to the ER her hemoglobin was 5.3 and she underwent 3 units of blood transfusion which improved her hemoglobin to 8.7 this morning. She denies any complaints of nausea vomiting, hematemesis or melena. Dr. Sue, who is also her primary and has done endoscopies on her on the past was consulted. For additional history obtained from primary care doctor and the patient later, she stated that she had been worked up in the past for bone marrow suppression, presumptively alcohol induced suppression was thought to be the cause. She is to follow-up as an outpatient with hematology but then has not followed closely in the recent years. She is encouraged to resume this follow-up to a certain the cause of her numbness. An endoscopy was deferred as the patient denied any overt GI bleeding symptoms. She is being discharged now in stable condition. She symptomatically feels much better. 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 Urinary Catheter Management^: Cosme: Cath Placed During This Visit: yes, but has since been removed by the nurse Reason for Continuing Indwelling Catheter: Not indwelling catheter Urinary Catheter Date of Insertion: 01/06/20 Urinary Catheter Time of Insertion: 05:46 Date Urinary Catheter Removed: 01/06/20 Time Urinary Catheter Discontinued: 18:52 Discharge Data Data Completed and Pending: Pending at discharge Category Date Time Status Leukocyte Reduced RBC Stat Lab 01/05/20 19:55 Results Type and Screen S tat Lab 01/05/20 19:55 Results Labs from last 24 hours 01/07/20 01/06/20 01/06/20 06:10 21:39 15:11 WBC RBC Hgb 8.6 L 8.6 L Hct 31.2 L 30.5 L MCV MCH MCHC RDW Plt Count MPV Neut % (Auto) Lymph % (Auto) Haskell % (Auto) Eos % (Auto) Baso % (Auto) Neut # (Auto) Lymph # (Auto) Haskell # (Auto) Eos # (Auto) Baso # (Auto) Nucleated RBC % (a uto) Nucleated RBCs # Sodium Potassium Chloride Carbon Dioxide Anion Gap BUN Creatinine GFR Calculation Glucose Calculated Osmolal ity Lactic Acid (Sepsi s) 0.8 Calcium Blood Type Rho(D) Type Antibody Screen Crossmatch 01/06/20 01/06/20 01/05/20 15:11 15:11 19:55 WBC 4.0 RBC 3.59 L Hgb 7.5 L D Hct 26.7 L MCV 74.4 L MCH 20.9 L D MCHC 28.1 L D RDW 20.6 H Plt Count 286 MPV 9.7 Neut % (Auto) 58.9 Lymph % (Auto) 24.4 Haskell % (Auto) 9.5 Eos % (Auto) 6.5 Baso % (Auto) 0.5 Neut # (Auto) 2.4 Lymph # (Auto) 1.0 Haskell # (Auto) 0.4 Eos # (Auto) 0.3 Baso # (Auto) 0.0 Nucleated RBC % (a uto) 0 Nucleated RBCs # 0.0 Sodium 134 L Potassium 4.1 Chloride 100 Carbon Dioxide 24 Anion Gap 14.1 BUN 7 Creatinine 0.9 GFR Calculation 67.7 L Glucose 99 Calculated Osmolal ity 274 L Lactic Acid (Sepsi s) Calcium 7.6 L Blood Type A Positive Rho(D) Type Positive Antibody Screen Negative Crossmatch See Detail Vitals: Last Vital Signs Temp 98.4 F 01/07/20 11:23 Pulse 93 01/07/20 11:23 Resp 16 01/07/20 11:23 BP 126/78 01/07/20 11:23 Pulse Ox 95 01/07/20 11:23 Discharge Plan Discharge Patient Disposition: Home, Self-Care Condition: Stable Prescriptions: Continued atenolol 50 mg tablet 50 mg PO DAILY RF: 0 levothyroxine 200 mcg capsule 200 mcg PO DAILY RF: 0 liothyronine [Cytomel] 25 mcg tablet 25 mcg PO ONCE RF: 0 potassium chloride [Klor-Con M20] 20 mEq tablet,ER particles/crystals 20 meq PO BID RF: 0 epinephrine [EpiPen 2-Tim] 0.3 mg/0.3 mL auto-injector 0.3 mg IM ONCE RF: 0 pantoprazole [Protonix] 40 mg tablet,delayed release (DR/EC) 40 mg PO BID RF: 0 promethazine 25 mg suppository 25 mg VA Q6H PRN (Reason: Shortness Of Breath) RF: 0 ondansetron HCl 4 mg tablet 4 mg PO Q6H RF: 0 clonazepam 0.5 mg tablet 0.5 mg PO TID RF: 0 levetiracetam [Keppra] 500 mg tablet 1,000 mg PO BID RF: 0 tramadol 50 mg tablet 50 mg PO Q6H PRN (Reason: pain) Qty: 14 RF: 0 furosemide [Lasix] 40 mg tablet 40 mg PO QAM 30 Days Qty: 30 RF: 0 albuterol sulfate 0.63 mg/3 mL solution for nebulization 0.63 mg INHALATION TID 30 Days Qty: 270 RF: 0 Symbicort 160-4.5 mcg/actuation HFA aerosol inhaler 2 puff INHALATION BID 60 Days Qty: 10.2 RF: 2 Spiriva Respimat 2.5 mcg/actuation mist 2 puff INHALATION QAM 90 Days Qty: 4 RF: 2 Discontinued albuterol 90 mcg/actuation aerosol 90 mcg INHALATION QID PRN (Reason: Shortness Of Breath) RF: 0 Discharge Orders: Discharge Order (Routine); Ordered 01/07/20 Ordered By: Klaudia Smith Referrals: Octaviano Sue MD [Primary Care Provider] - 2 weeks Arvind Cr MD [Hospitalist] - 1 week Discharge Diet: Usual diet Discharge Activity: Resume usual activity Discharge Attestations Time Spent in Discharge Care*: greater than 30 min Quality Metrics Clinical Quality Measures During this hospital stay, did patient experience: None Coding Level of Care Code Acute 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
--- NOTE | 2020-01-07 15:51 | PC.RESP ---
Pulmonary Rehab information to patient.
== END 2020-01-07 18:14 | disposition home or self-care (01) ==
LOC: ER 21:54 → MEDSURG 01-06 00:11
PROVIDERS: Admitting Provider Internal Medicine; Emergency Provider Emergency Medicine; PCP Internal Medicine; Visit Provider Student in an Organized Health Care Education/Training Program
DX: D64.9 Anemia, unspecified (principal); D50.9 Iron deficiency anemia, unspecified; R91.1 Solitary pulmonary nodule; K21.0 Gastro-esophageal reflux disease with esophagitis; E83.51 Hypocalcemia; R60.9 Edema, unspecified; N18.3 Chronic kidney disease, stage 3 (moderate); Z86.19 Personal history of other infectious and parasitic diseases; Z86.711 Personal history of pulmonary embolism; J44.9 Chronic obstructive pulmonary disease, unspecified; I50.30 Unspecified diastolic (congestive) heart failure
CPT/HCPCS: 12345; 36415; 36430; 36556; 36592; 51702; 80048; 80053; 80307; 82274; 83605; 83615; 84484; 84703; 85014; 85018; 85025; 85045; 85610; 85730; 86850; 86900; 86920; 93005; 94640; 96361; 96374; 96375; 99282; 99285; C1751; C9113; G0378; J0610; J1940; J2001; J2270; J7030; P9016

== ENCOUNTER 2020-01-18 11:11 | Day surgery (SDC) | payer MEDICARE, MEDICAID, SELFPAY ==
[2020-01-15 13:08] VITALS: BMI 26.9
[2020-01-18 11:25] VITALS: BP 134/88; PULSE 108; RESP 16; TEMP 37.4; O2SAT 99
--- NOTE | 2020-01-18 11:53 | W.PM.OPSUD ---
Surgery/Procedure H&P Update DATE OF PROCEDURE: January 18, 2020 DATE H&P PERFORMED: 01/14/20 H&P UPDATE INFORMATION: I have reviewed H&P completed within last 30 days, I have examined patient prior to procedure (Patient is conscious alert oriented timesx3, head and neck examination PERRLA no masses no lymphadenopathy, chest is clear bilateral, abdominal examination nontender nondistended soft no signs of peritonitis) and No changes to prior documentation PREOP DIAGNOSIS: Symptomatic hiatal hernia PRIMARY INDICATION FOR PROCEDURE: The same PLANNED PROCEDURE: Operation Date: 01/18/20 12:35 Proposed Procedures p EGD 76152/K44.9(Not Applicable) - Marco A Nixon MD
[2020-01-18] MEDS: sodium chloride 0.9% 1,000 ML 30 ML IV (11:57)
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
[2020-01-18 13:18] VITALS: BP 125/80; PULSE 103; RESP 16; TEMP 36.6; O2SAT 94
[2020-01-18 13:33] VITALS: BP 117/77; PULSE 99; RESP 16; TEMP 36.6; O2SAT 96
[2020-01-19 10:07] LABS: H. Pylori / CLO Test Negative
== END 2020-01-18 13:50 | disposition home or self-care (01) ==
PROVIDERS: PCP Internal Medicine; Visit Provider Surgery
PROC: 0DJ08ZZ Inspection of Upper Intestinal Tract, Via Natural or Artificial Opening Endoscopic (ICD-10-PCS; CPT 43235; principal; 2020-01-18 12:30)
DX: K44.9 Diaphragmatic hernia without obstruction or gangrene (principal); D64.9 Anemia, unspecified; K21.9 Gastro-esophageal reflux disease without esophagitis; K29.70 Gastritis, unspecified, without bleeding; J44.9 Chronic obstructive pulmonary disease, unspecified; N18.3 Chronic kidney disease, stage 3 (moderate); B19.20 Unspecified viral hepatitis C without hepatic coma; Z86.718 Personal history of other venous thrombosis and embolism
CPT/HCPCS: 12345; 43239; 87077; J2704; J7030

== ENCOUNTER 2020-01-21 17:38 | Emergency (ER) | payer MEDICARE, MEDICAID, SELFPAY ==
[2020-01-21] VITALS (36 sets, daily range): BP systolic 129–178; BP diastolic 81–117; PULSE 96–104; RESP 16–20; TEMP 36.8; O2SAT 92–97; BMI 37.2
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
--- NOTE | 2020-01-21 18:14 | XR_ITS ---
WS: [id number] CHEST XRAY TECHNIQUE: Portable chest. CLINICAL INFORMATION: Wheezing COMPARISON: January 05, 2020 FINDINGS: Moderate esophageal hiatal hernia with air-fluid level. Heart: Cardiomegaly. Lungs: Shallow inspiration. Small pleural effusion. No focal pneumonia. Bones: Normal visualized bony structures. XR/XR chest 1V portable [id number] IMPRESSION: Moderate esophageal hiatal hernia with air-fluid level. Small left pleural effu vincenzo.
--- NOTE | 2020-01-21 18:16 | CTR_ITS ---
PROCEDURE INFORMATION: Exam: CT Head Without Contrast Exam date and time: 01/21/2020 6:16 PM Age: 44 years old Clinical indication: Altered mental status/memory loss; Confusion or disorientation; Additional info: Mental status change TECHNIQUE: Imaging protocol: Computed tomography of the head without contrast. Radiation optimization: All CT scans at this facility use at least one of these dose optimization techniques: automated exposure control; mA and/or kV adjustment per patient size (includes targeted exams where dose is matched to clinical indication); or iterative reconstruction. COMPARISON: CT head wo con* [id number] 08/30/2019 8:36 PM FINDINGS: Examination is limited by artifacts from patient motion. There are moderate intracranial arterial calcifications, unexpected for the patient's stated age. Evaluation of the brain demonstrates no other areas of abnormal density when allowing for artifacts from patient motion. There is mild to moderate cerebral cortical volume loss, unexpected for the patient's stated age. Ventricles do not appear significantly dilated. No depressed calvarial fracture is demonstrated. Visualized paranasal sinuses and mastoid air cells demonstrate no significant opacification. There is aeration of the right anterior clinoid process and the optic nerve traverses this region. CT/CT head wo con* [id number] IMPRESSION: No definite acute intracranial process is demonstrated. There are moderate intracranial arterial calcifications, unexpected for the patient's stated age. There is mild to moderate cerebral cortical volume loss, unexpected for the patient's stated age. Total DLP: 621.9 mGy-cm Radiation Dose CTDIVOL = (mGy): DLP = 621.9 (mGy-cm)
[2020-01-21] MEDS: ondansetron 2 mg/ML SDV 2 mL 4 MG IVP ×2 (18:20→21:12)
[2020-01-21] MEDS: ipratropium-albuterol 3 mL Neb INHALATION (18:22)
[2020-01-21 18:33] LABS: ABG PCO2 38.5 mmHg (35-45); ABG PH Result 7.42 (7.35-7.45); Alveolar-Arterial Oxygen Gradi 73.8 mmHg (5-10); Arterial Blood Gas Hematocrit 30.3 % (37-47); Base Excess ABG 0.1 mmol/L (-2.0-2.0); Blood Gas Allen Test Pos; Blood Gas Sample Site Brachial, left; Blood Gas Sample Type Arterial; Carboxyhemoglobin 1.2 %THgb (0.4-20.1); HCO3 ABG 24.6 mmol/L (22-26); HGB O2 Sat 92.9 % (95-100); Methemoglobin 0.6 % (0.4-1.5); Oxygen Device NC; Oxygen Saturation ABG 94.6; PO2 ABG 75.4 mmHg (80.0-100.0); Potassium Level - ABG 3.2 mmol/L (3.5-5.0); Total Hemoglobin 9.9 g/dL (12-16)
[2020-01-21] MEDS: sodium chloride 0.9% 500 ML IV (18:50)
[2020-01-21 19:27] LABS: Basophils # 0.1 10^3/uL (0.0-0.1); Basophils % 1.1 %; Eosinophils # 0.2 10^3/uL (0.0-0.8); Eosinophils % 4.9 %; Hematocrit 36.8 % (37.0-47.0); Hemoglobin 9.2 g/dL (11.5-15.3); Lymphocytes % 43.8 %; Mean Corpuscular Hemoglobin 21.9 pg (28.0-34.0); Mean Corpuscular Volume 87.6 fL (81-99); Mean Platelet Volume 9.5 fL (7.4-10.4); Monocytes # 0.3 10^3/uL (0.2-0.9); Neutrophils # 1.9 10^3/uL (1.8-7.7); Neutrophils % 42.8 %; Nucleated Red Blood Cells % 0 %; Platelet Count 356 10^3/cmm (130-400); Red Cell Distribution Width 23.8 % (12.1-15.1); White Blood Count 4.5 10^3/uL (4.0-10.0)
[2020-01-21] MEDS: morphine 4 mg/mL SDV 1 mL IVP ×2 (19:33→21:11)
[2020-01-21 19:39] LABS: Lactic Acid level (Lactate) 1.7 mmol/L (0.5-2.2)
[2020-01-21 19:40] LABS: Alanine Aminotransferase 6 U/L (0-33); Albumin Level 3.3 g/dL (3.5-5.2); Alkaline Phosphatase 177 IU/L (35-105); Anion Gap 17.4 (5-19); Aspartate Amino Transferase 9 U/L (0-32); Blood Urea Nitrogen 4 mg/dL (6-20); Calcium 7.4 mg/dL (8.5-10.5); Carbon Dioxide 22 mmol/L (22-29); Chloride 107 mmol/L (98-107); Globulin 4.1 g/dL (1.3-4.6); Glomerular Filtration Rate 77.6 mL/min (90-130); Glucose 115 mg/dL (65-115); Osmolality Calculated 293 mOsm/kg (285-295); Potassium 3.4 mmol/L (3.5-5.1); Sodium 143 mmol/L (136-145); Total Bilirubin 0.3 mg/dL (0.15-1.2); Total Protein 7.4 g/dL (6.6-8.7)
--- NOTE | 2020-01-21 19:53 | XR_ITS ---
WS: [id number] PROCEDURE: XR chest 2V* [id number] CLINICAL INFORMATION: wheezing COMPARISON: January 21, 2020 FINDINGS: Moderate Esophageal hiatal hernia with air-fluid level. Heart: Normal cardiac silhouette. Lungs: Lungs are clear. No consolidation or pleural fluid. Bones: Normal visualized bony structures. IVC filter. Cholecystectomy clips. XR/XR chest 2V* [id number] IMPRESSION: 1. Moderate esophageal hiatal hernia with air-fluid level. 2. No acute pulmonary infiltrates.
[2020-01-21 20:16] LABS: Partial Thromboplastin Time 24.5 SECONDS (23.9-36.7)
[2020-01-21 20:30] LABS: Bilirubin Urine Neg (NEGATIVE); Blood Urine Neg (Negative); Glucose Urine UA Norm (Normal); Ketones Urine Negative (Negative); Leukocyte Esterase Urine Negative (Negative); Nitrate Urine Negative (Negative); Protein Urine Neg (Negative); Urine Appearance Clear (CLEAR); Urine Color Yellow (Yellow); Urobilinogen Urine Norm (Negative); pH Urine 5 (5-7)
[2020-01-21 20:31] LABS: Add Urine Culture? No; Bacteria Urine TRACE; Mucus Urine 2+; RBC Urine 0-4 /hpf (0-2)
--- NOTE | 2020-01-22 10:12 | DCPLANNER ---
scheduling manager had message to schedule a follow up appointment for patient with general surgery. scheduling manager called [facility], spoke with Radha, a follow up appointment was scheduled for Monday, January 27, [address] at 1:[address] Nixon. Clinic will call patient with appointment information.
== END 2020-01-21 22:06 | disposition home or self-care (01) ==
PROVIDERS: Emergency Provider Physician Assistant; PCP Internal Medicine
DX: Z98.890 Other specified postprocedural states (principal); N18.3 Chronic kidney disease, stage 3 (moderate); J44.9 Chronic obstructive pulmonary disease, unspecified; I50.30 Unspecified diastolic (congestive) heart failure; Z86.19 Personal history of other infectious and parasitic diseases
CPT/HCPCS: 82272; 12345; 36415; 36600; 70450; 71045; 71046; 80051; 80053; 81001; 82810; 83605; 83986; 85025; 85610; 85730; 86850; 86900; 87040; 94640; 96361; 96374; 96375; 96376; 99283; 99284; J2270; J2405; J7040

== ENCOUNTER 2020-02-19 18:00 | Emergency (ER) | payer MEDICARE, MEDICAID, SELFPAY ==
[2020-02-19 18:20] VITALS: BP 119/74; PULSE 102; RESP 18; TEMP 36.6; O2SAT 88; BMI 30.9
--- NOTE | 2020-02-19 18:29 | ED_ITS ---
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 (Negative) ng/mL Urine Cocaine Scre en (Negative) ng/mL U Marijuana (THC) Screen (Negative) ng/mL Ethyl Alcohol 278 H (0-10) mg/dL Serum Ketones (Negative) 02/19/20 02/19/20 02/19/20 Range/Units 18:50 18:50 18:50 WBC (4.0-10.0) 10^3/ uL RBC (4.1-5.3) 10^6/u L Hgb (11.5-15.3) g/dL Hct (37.0-47.0) % MCV (81-99) fL MCH (28.0-34.0) pg MCHC (30.0-36.0) g/dL RDW (12.1-15.1) % Plt Count (130-400) 10^3/c mm MPV (7.4-10.4) fL Neut % (Auto) % Lymph % (Auto) % [place] % (Auto) % Eos % (Auto) % Baso % (Auto) % Neut # (Auto) (1.8-7.7) 10^3/u L Lymph # (Auto) (0.8-4.8) 10^3/u L [place] # (Auto) (0.2-0.9) 10^3/u L Eos # (Auto) (0.0-0.8) 10^3/u L Baso # (Auto) (0.0-0.1) 10^3/u L Nucleated RBC % (a uto) % Nucleated RBCs # /100WBC Specimen Type Sample Site ABG pH (7.35-7.45) ABG pCO2 (35-45) mmHg ABG pO2 (80.0-100.0) mmH g ABG HCO3 (22-26) mmol/L ABG O2 Saturation ABG Base Excess (-2.0-2.0) mmol/ L Scottie Test A-a O2 Gradient (5-10) mmHg Hematocrit (37-47) % Hgb O2 Saturation (95-100) % Carboxyhemoglobin (0.4-20.1) %THgb Methemoglobin (0.4-1.5) % Total Hemoglobin (12-16) g/dL Ionized Calcium (1.1-1.4) mmol/L O2 Delivery Device FiO2 % Retail Training Manager ID Sodium (136-145) mmol/L Potassium (3.5-5.1) mmol/L Chloride (98-107) mmol/L Carbon Dioxide (22-29) mmol/L Anion Gap (5-19) BUN (6-20) mg/dL Creatinine (0.5-0.9) mg/dL GFR Calculation (90-130) mL/min Glucose (65-115) mg/dL Calculated Osmolal ity (285-295) mOsm/k g Lactate (0.5-2.2) mmol/L Calcium (8.5-10.5) mg/dL Magnesium 2.3 (1.7-2.3) mg/dL Total Bilirubin (0.15-1.2) mg/dL AST (0-32) U/L ALT (0-33) U/L Alkaline Phosphata se (35-105) IU/L Creatine Kinase (26-192) U/L Troponin T Baselin e 6 (0-10) ng/L Troponin T 120 Min absentee-shawnee (0-10) ng/L Delta Troponin T (0-10) ABS# NT-Pro-B Natriuret Pep (0-125) pg/mL Total Protein (6.6-8.7) g/dL Albumin (3.5-5.2) g/dL Globulin (1.3-4.6) g/dL Lipase (13-60) U/L Urine Color (Yellow) Urine Appearance (CLEAR) Urine pH (5-7) Ur Specific Gravit y (1.005-1.030) Urine Protein (Negative) Urine Glucose (UA) (Normal) Urine Ketones (Negative) Urine Blood (Negative) Urine Nitrate (Negative) Urine Bilirubin (NEGATIVE) Urine Urobilinogen (Negative) mg/dL Ur Leukocyte Maryellen ase (Negative) Urine Opiates Scre en (Negative) ng/mL Ur Barbiturates Sc reen (Negative) ng/mL Ur Phencyclidine S crn (Negative) ng/mL Ur Amphetamines Sc reen (Negative) ng/mL U Benzodiazepines Scrn (Negative) ng/mL Urine Cocaine Scre en (Negative) ng/mL U Marijuana (THC) Screen (Negative) ng/mL Ethyl Alcohol (0-10) mg/dL Serum Ketones Negative (Negative) 02/19/20 02/19/20 02/19/20 Range/Units 18:50 19:25 21:25 WBC (4.0-10.0) 10^3/ uL RBC (4.1-5.3) 10^6/u L Hgb (11.5-15.3) g/dL Hct (37.0-47.0) % MCV (81-99) fL MCH (28.0-34.0) pg MCHC (30.0-36.0) g/dL RDW (12.1-15.1) % Plt Count (130-400) 10^3/c mm MPV (7.4-10.4) fL Neut % (Auto) % Lymph % (Auto) % [place] % (Auto) % Eos % (Auto) % Baso % (Auto) % Neut # (Auto) (1.8-7.7) 10^3/u L Lymph # (Auto) (0.8-4.8) 10^3/u L [place] # (Auto) (0.2-0.9) 10^3/u L Eos # (Auto) (0.0-0.8) 10^3/u L Baso # (Auto) (0.0-0.1) 10^3/u L Nucleated RBC % (a uto) % Nucleated RBCs # /100WBC Specimen Type Arterial Sample Site Brachial, left ABG pH 7.41 (7.35-7.45) ABG pCO2 38.7 (35-45) mmHg ABG pO2 67.9 L (80.0-100.0) mmH g ABG HCO3 24.2 (22-26) mmol/L ABG O2 Saturation 92.3 ABG Base Excess -0.4 (-2.0-2.0) mmol/ L Scottie Test N/a A-a O2 Gradient 32.8 H (5-10) mmHg Hematocrit 29.3 L (37-47) % Hgb O2 Saturation 90.2 L (95-100) % Carboxyhemoglobin 1.5 (0.4-20.1) %THgb Methemoglobin 0.7 (0.4-1.5) % Total Hemoglobin 9.5 L (12-16) g/dL Ionized Calcium 1.0 L (1.1-1.4) mmol/L O2 Delivery Device None FiO2 21.0 % Retail Training Manager ID [email or web address] Sodium 144.0 H (136-145) mmol/L Potassium 2.8 L (3.5-5.1) mmol/L Chloride (98-107) mmol/L Carbon Dioxide (22-29) mmol/L Anion Gap (5-19) BUN (6-20) mg/dL Creatinine (0.5-0.9) mg/dL GFR Calculation (90-130) mL/min Glucose 115.0 (65-115) mg/dL Calculated Osmolal ity (285-295) mOsm/k g Lactate (0.5-2.2) mmol/L Calcium (8.5-10.5) mg/dL Magnesium (1.7-2.3) mg/dL Total Bilirubin (0.15-1.2) mg/dL AST (0-32) U/L ALT (0-33) U/L Alkaline Phosphata se (35-105) IU/L Creatine Kinase (26-192) U/L Troponin T Baselin e (0-10) ng/L Troponin T 120 Min absentee-shawnee 6.00 (0-10) ng/L Delta Troponin T 0 (0-10) ABS# NT-Pro-B Natriuret Pep 396 H (0-125) pg/mL Total Protein (6.6-8.7) g/dL Albumin (3.5-5.2) g/dL Globulin (1.3-4.6) g/dL Lipase (13-60) U/L Urine Color (Yellow) Urine Appearance (CLEAR) Urine pH (5-7) Ur Specific Gravit y (1.005-1.030) Urine Protein (Negative) Urine Glucose (UA) (Normal) Urine Ketones (Negative) Urine Blood (Negative) Urine Nitrate (Negative) Urine Bilirubin (NEGATIVE) Urine Urobilinogen (Negative) mg/dL Ur Leukocyte Maryellen ase (Negative) Urine Opiates Scre en (Negative) ng/mL Ur Barbiturates Sc reen (Negative) ng/mL Ur Phencyclidine S crn (Negative) ng/mL Ur Amphetamines Sc reen (Negative) ng/mL U Benzodiazepines Scrn (Negative) ng/mL Urine Cocaine Scre en (Negative) ng/mL U Marijuana (THC) Screen (Negative) ng/mL Ethyl Alcohol (0-10) mg/dL Serum Ketones (Negative) 02/19/20 02/19/20 Range/Units 22:45 22:45 WBC (4.0-10.0) 10^3/ uL RBC (4.1-5.3) 10^6/u L Hgb (11.5-15.3) g/dL Hct (37.0-47.0) % MCV (81-99) fL MCH (28.0-34.0) pg MCHC (30.0-36.0) g/dL RDW (12.1-15.1) % Plt Count (130-400) 10^3/c mm MPV (7.4-10.4) fL Neut % (Auto) % Lymph % (Auto) % [place] % (Auto) % Eos % (Auto) % Baso % (Auto) % Neut # (Auto) (1.8-7.7) 10^3/u L Lymph # (Auto) (0.8-4.8) 10^3/u L [place] # (Auto) (0.2-0.9) 10^3/u L Eos # (Auto) (0.0-0.8) 10^3/u L Baso # (Auto) (0.0-0.1) 10^3/u L Nucleated RBC % (a uto) % Nucleated RBCs # /100WBC Specimen Type Sample Site ABG pH (7.35-7.45) ABG pCO2 (35-45) mmHg ABG pO2 (80.0-100.0) mmH g ABG HCO3 (22-26) mmol/L ABG O2 Saturation ABG Base Excess (-2.0-2.0) mmol/ L Scottie Test A-a O2 Gradient (5-10) mmHg Hematocrit (37-47) % Hgb O2 Saturation (95-100) % Carboxyhemoglobin (0.4-20.1) %THgb Methemoglobin (0.4-1.5) % Total Hemoglobin (12-16) g/dL Ionized Calcium (1.1-1.4) mmol/L O2 Delivery Device FiO2 % Retail Training Manager ID Sodium (136-145) mmol/L Potassium (3.5-5.1) mmol/L Chloride (98-107) mmol/L Carbon Dioxide (22-29) mmol/L Anion Gap (5-19) BUN (6-20) mg/dL Creatinine (0.5-0.9) mg/dL GFR Calculation (90-130) mL/min Glucose (65-115) mg/dL Calculated Osmolal ity (285-295) mOsm/k g Lactate (0.5-2.2) mmol/L Calcium (8.5-10.5) mg/dL Magnesium (1.7-2.3) mg/dL Total Bilirubin (0.15-1.2) mg/dL AST (0-32) U/L ALT (0-33) U/L Alkaline Phosphata se (35-105) IU/L Creatine Kinase (26-192) U/L Troponin T Baselin e (0-10) ng/L Troponin T 120 Min absentee-shawnee (0-10) ng/L Delta Troponin T (0-10) ABS# NT-Pro-B Natriuret Pep (0-125) pg/mL Total Protein (6.6-8.7) g/dL Albumin (3.5-5.2) g/dL Globulin (1.3-4.6) g/dL Lipase (13-60) U/L Urine Color Yellow (Yellow) Urine Appearance Clear (CLEAR) Urine pH 6 (5-7) Ur Specific Gravit y 1.010 (1.005-1.030) Urine Protein Neg (Negative) Urine Glucose (UA) Norm (Normal) Urine Ketones Negative (Negative) Urine Blood Neg (Negative) Urine Nitrate Negative (Negative) Urine Bilirubin Neg (NEGATIVE) Urine Urobilinogen Norm (Negative) mg/dL Ur Leukocyte Maryellen ase Negative (Negative) Urine Opiates Scre en Positive H (Negative) ng/mL Ur Barbiturates Sc reen Negative (Negative) ng/mL Ur Phencyclidine S crn Negative (Negative) ng/mL Ur Amphetamines Sc reen Negative (Negative) ng/mL U Benzodiazepines Scrn Negative (Negative) ng/mL Urine Cocaine Scre en Negative (Negative) ng/mL U Marijuana (THC) Screen Negative (Negative) ng/mL Ethyl Alcohol (0-10) mg/dL Serum Ketones (Negative) Imaging Data^: CT Head: Radiologist's impression: [address] [address] [address] Scan Report Signed Patient: Delores Mckeon Unit #: [id number] : 1975 Age/Sex: 44 / F ADM Date: 02/19/20 Loc: ER Room/Bed: Attending Dr: Ordering Provider/Ordering MD: Luis Alberto Yang DO Date of Service: 02/19/20 Procedure(s): CT head wo con* [id number] Accession Number(s): [id number] Report Number: [id number] PROCEDURE INFORMATION: Exam: CT Head Without Contrast Exam date and time: 02/19/2020 6:46 PM Age: 44 years old Clinical indication: Altered mental status/memory loss; Confusion or disorientation; Patient HX: AMS TECHNIQUE: Imaging protocol: Computed tomography of the head without contrast. Radiation optimization: All CT scans at this facility use at least one of these dose optimization techniques: automated exposure control; mA and/or kV adjustment per patient size (includes targeted exams where dose is matched to clinical indication); or iterative reconstruction. COMPARISON: CT head wo con* [id number] 01/21/2020 6:29 PM RADIATION DOSE METRICS: Total DLP (mGy-cm): 849.42 FINDINGS: Brain: There is unchanged mild volume loss and vascular calcifications. No hemorrhage. Unremarkable white matter. No mass effect. Ventricles: Normal. No ventriculomegaly. Bones/joints: Unremarkable. No acute fracture. Sinuses: Visualized sinuses are unremarkable. No fluid levels. Mastoid air cells: Visualized mastoid air cells are well aerated. Soft tissues: Unremarkable. CT/CT head wo con* [id number] IMPRESSION: No acute intracranial abnormality. Radiation Dose CTDIVOL = (mGy): DLP = 849.42 (mGy-cm) Dictated By: Desi Garcia Signed By: Desi Garcia Signed Date/Time: 02/19/201910 DD/ 09 CTA Head and Neck: Radiologist's impression: [place] [address] CT Scan Report Signed Patient: Delores Mckeon Unit #: [id number] : 1975 Age/Sex: 44 / F ADM Date: 02/19/20 Loc: ER Room/Bed: Attending Dr: Ordering Provider/Ordering MD: Luis Alberto Yang DO Date of Service: 02/19/20 Procedure(s): CT angio headneck* [id number] Accession Number(s): [id number] Report Number: [id number] PROCEDURE INFORMATION: Exam: CT Angiography Head With Contrast Exam date and time: 02/19/2020 8:00 PM Age: 44 years old Clinical indication: Weakness; Additional info: L side deficiets TECHNIQUE: Imaging protocol: Computed tomography angiography of the head with intravenous contrast. 3D rendering: MIP and/or 3D reconstructed images were created by the technologist. Radiation optimization: All CT scans at this facility use at least one of these dose optimization techniques: automated exposure control; mA and/or kV adjustment per patient size (includes targeted exams where dose is matched to clinical indication); or iterative reconstruction. Contrast material: VISIPAQUE; Contrast volume: 95 ml; Contrast route: INTRAVENOUS (IV); COMPARISON: CT head wo con* [id number] 02/19/2020 6:48 PM RADIATION DOSE METRICS: Total DLP (mGy-cm): 2140.03 FINDINGS: Anterior cerebral arteries: No occlusion or significant stenosis. No aneurysm. Right internal carotid artery: Intracranial segment is patent with no significant stenosis or occlusion. No aneurysm. Right middle cerebral artery: No occlusion or significant stenosis. No aneurysm. Right posterior cerebral artery: No occlusion or significant stenosis. No aneurysm. Right vertebral artery: No occlusion or significant stenosis. No aneurysm. Left internal carotid artery: Intracranial segment is patent with no significant stenosis or occlusion. No aneurysm. Left middle cerebral artery: No occlusion or significant stenosis. No aneurysm. Left posterior cerebral artery: No occlusion or significant stenosis. No aneurysm. Left vertebral artery: No occlusion or significant stenosis. No aneurysm. Basilar artery: No occlusion or significant stenosis. No aneurysm. IMPRESSION: No large vessel stenosis or occlusion. PROCEDURE INFORMATION: Exam: CT Angiography Neck With Contrast Exam date and time: 02/19/2020 8:00 PM Age: 44 years old Clinical indication: Weakness; Additional info: L side deficiets TECHNIQUE: Imaging protocol: Computed tomography angiography of the neck with intravenous contrast. 3D rendering: MIP and/or 3D reconstructed images were created by the technologist. Radiation optimization: All CT scans at this facility use at least one of these dose optimization techniques: automated exposure control; mA and/or kV adjustment per patient size (includes targeted exams where dose is matched to clinical indication); or iterative reconstruction. Contrast material: VISIPAQUE; Contrast volume: 95 ml; Contrast route: INTRAVENOUS (IV); COMPARISON: CT head wo con* [id number] 02/19/2020 6:48 PM RADIATION DOSE METRICS: Total DLP (mGy-cm): 2140.03 FINDINGS: Right common carotid artery: No stenosis. No dissection or occlusion. Right internal carotid artery: No stenosis of the extracranial segment. No dissection or occlusion. Right external carotid artery: No occlusion or stenosis of the origin. Right vertebral artery: No stenosis. No dissection or occlusion. Left common carotid artery: No stenosis. No dissection or occlusion. Left internal carotid artery: No stenosis of the extracranial segment. No dissection or occlusion. Left external carotid artery: No occlusion or stenosis of the origin. Left vertebral artery: No stenosis. No dissection or occlusion. Other vasculature: Motion artifact degrades the images. Retropharyngeal course of bilateral internal carotid and common carotid arteries. Bones/joints: No acute fracture. Soft tissues: Normal. No significant soft tissue swelling. CT/CT angio headneck* [id number] IMPRESSION: No acute abnormality. REFERENCES: NASCET CRITERIA. The degree of internal carotid artery stenosis is based on NASCET criteria. Normal is no stenosis. Mild is less than 50% stenosis. Moderate is 50-69% stenosis. Severe is 70% to 99% stenosis. Total occlusion is no detectable patent lumen. Radiation Dose CTDIVOL = (mGy): DLP = 2140.03 2140.03 (mGy-cm) Dictated By: Efra Dukes MD Signed By: Efra Dukes MD Signed Date/Time: 02/19/202217 DD/ 16 CXR: Radiologist's impression: [address] [address] XRay Report Signed Patient: Delores Mckeon Unit #: [id number] : 1975 Age/Sex: 44 / F ADM Date: 02/19/20 Loc: ER Room/Bed: Attending Dr: Ordering Provider/Ordering MD: Luis Alberto Yang DO Date of Service: 02/19/20 Procedure(s): XR chest 1V portable [id number] Accession Number(s): [id number] Report Number: [id number] PROCEDURE INFORMATION: Exam: XR Chest, 1 View Exam date and time: 02/19/2020 7:09 PM Age: 44 years old Clinical indication: Dyspnea; Additional info: Dyspnea/cough TECHNIQUE: Imaging protocol: XR of the chest Views: 1 view. COMPARISON: CT angio chest PE prot [id number] 10/24/2019 8:25 PM FINDINGS: Lungs: There is vascular congestion with cephalization of flow, interstitial edema and ground-glass opacities compatible with CHF. There is mild ground-glass opacity in the left lung base compatible with mild pneumonitis versus atelectasis. Pleural space: Unremarkable. No pleural effusion. No pneumothorax. Heart/Mediastinum: The heart is enlarged. Bones/joints: No acute abnormality. XR/XR chest 1V portable [id number] IMPRESSION: 1. There is vascular congestion with cephalization of flow, interstitial edema and ground-glass opacities compatible with CHF. 2. There is mild ground-glass opacity in the left lung base compatible with mild pneumonitis versus atelectasis. Dictated By: Desi Garcia Signed By: Desi Garcia Signed Date/Time: 02/19/201921 DD/ 19 EKG Data^: EKG 1: Attestation: I personally reviewed and interpreted this EKG as follows: EKG interpretation date: 02/19/20 EKG interpretation time: 19:46 Interpretation: Normal sinus rhythm at 97 beats a minute, normal axis, no blocks, normal intervals, nonspecific ST and T wave changes. EKG 2: Attestation: I personally reviewed and interpreted this EKG as follows: EKG interpretation date: 02/19/20 Interpretation: Normal sinus rhythm at 91 beats a minute, no blocks, normal intervals, nonspecific ST-T wave changes. Discharge Plan Discharge Patient Disposition: Left Against Medical Advice Clinical Impression: TIA (transient ischemic attack) Alcoholic intoxication Qualifiers: Complication of substance-induced condition: uncomplicated Qualified Code(s): F10.920 - Alcohol use, unspecified with intoxication, uncomplicated Condition: Stable Prescriptions: New aspirin 325 mg tablet 325 mg PO DAILY Qty: 30 RF: 0 No Action atenolol 50 mg tablet 50 mg PO DAILY RF: 0 levothyroxine 200 mcg capsule 200 mcg PO DAILY RF: 0 liothyronine [Cytomel] 25 mcg tablet 25 mcg PO DAILY RF: 0 potassium chloride [Klor-Con M20] 20 mEq tablet,ER particles/crystals 20 meq PO BID RF: 0 epinephrine [EpiPen 2-Tim] 0.3 mg/0.3 mL auto-injector 0.3 mg IM ONCE RF: 0 pantoprazole [Protonix] 40 mg tablet,delayed release (DR/EC) 40 mg PO BID RF: 0 promethazine 25 mg suppository 25 mg TX Q6H PRN (Reason: Shortness Of Breath) RF: 0 ondansetron HCl 4 mg tablet 4 mg PO Q6H RF: 0 clonazepam 0.5 mg tablet 0.5 mg PO TID RF: 0 levetiracetam [Keppra] 500 mg tablet 1,000 mg PO BID RF: 0 Incruse Ellipta 62.5 mcg/actuation blister with device 1 inh INHALATION DAILY Qty: 30 RF: 3 furosemide [Lasix] 40 mg tablet 40 mg PO QAM 30 Days Qty: 30 RF: 0 albuterol sulfate 0.63 mg/3 mL solution for nebulization 0.63 mg INHALATION TID 30 Days Qty: 270 RF: 0 Spiriva Respimat 2.5 mcg/actuation mist 2 puff INHALATION QAM 90 Days Qty: 4 RF: 2 ferric citrate 210 mg iron tablet 210 mg PO DAILY Qty: 30 RF: 0 Discharge Orders: Discharge Order (Routine); Ordered 02/19/20 Ordered By: Filomena Martinez Referrals: Octaviano Sue MD [Primary Care Provider] - 1-3 days Discharge Diet: Usual diet Discharge Activity: Increase activity as tolerated Patient Instructions: Transient Ischemic Attack (ED), Alcohol Intoxication (ED) Activity Restrictions/Additional Instructions: You're leaving AGAINST MEDICAL ADVICE and are at risk for or severe permanent disability by doing so. You are more than welcome to return at any time for recheck and for further evaluation and care suture change you change your mind. Be certain to take an aspirin daily and follow-up with your doctor as soon as possible for recheck. If you change your mind and wish to have further evaluation and care you are welcome to return here at any time. Stand Alone Forms: Against Medical Advice Discharge Date/Time: 02/19/20 23:22 Sign Out Sign Out Data: Patient Sign Out occurred on 02/19/20 at 19:30. Patient's care was discussed, and care was transferred from Luis Alberto Yang DO to Filomena Martinez. Sign Out Comment: Labs pending CT head and neck CTA head neck Last updated by Luis Alberto Yang DO at 02/19/20 19:15 Coding Level of Care Code ED Cinema Operator for Chg Fwd Exam Comprehensive
--- NOTE | 2020-02-19 18:39 | CTR_ITS ---
PROCEDURE INFORMATION: Exam: CT Head Without Contrast Exam date and time: 02/19/2020 6:46 PM Age: 44 years old Clinical indication: Altered mental status/memory loss; Confusion or disorientation; Patient HX: AMS TECHNIQUE: Imaging protocol: Computed tomography of the head without contrast. Radiation optimization: All CT scans at this facility use at least one of these dose optimization techniques: automated exposure control; mA and/or kV adjustment per patient size (includes targeted exams where dose is matched to clinical indication); or iterative reconstruction. COMPARISON: CT head wo con* [id number] 01/21/2020 6:29 PM RADIATION DOSE METRICS: Total DLP (mGy-cm): 849.42 FINDINGS: Brain: There is unchanged mild volume loss and vascular calcifications. No hemorrhage. Unremarkable white matter. No mass effect. Ventricles: Normal. No ventriculomegaly. Bones/joints: Unremarkable. No acute fracture. Sinuses: Visualized sinuses are unremarkable. No fluid levels. Mastoid air cells: Visualized mastoid air cells are well aerated. Soft tissues: Unremarkable. CT/CT head wo con* [id number] IMPRESSION: No acute intracranial abnormality. Radiation Dose CTDIVOL = (mGy): DLP = 849.42 (mGy-cm)
--- NOTE | 2020-02-19 18:39 | XRR_ITS ---
PROCEDURE INFORMATION: Exam: XR Chest, 1 View Exam date and time: 02/19/2020 7:09 PM Age: 44 years old Clinical indication: Dyspnea; Additional info: Dyspnea/cough TECHNIQUE: Imaging protocol: XR of the chest Views: 1 view. COMPARISON: CT angio chest PE protcl [id number] 10/24/2019 8:25 PM FINDINGS: Lungs: There is vascular congestion with cephalization of flow, interstitial edema and ground-glass opacities compatible with CHF. There is mild ground-glass opacity in the left lung base compatible with mild pneumonitis versus atelectasis. Pleural space: Unremarkable. No pleural effusion. No pneumothorax. Heart/Mediastinum: The heart is enlarged. Bones/joints: No acute abnormality. XR/XR chest 1V portable [id number] IMPRESSION: 1. There is vascular congestion with cephalization of flow, interstitial edema and ground-glass opacities compatible with CHF. 2. There is mild ground-glass opacity in the left lung base compatible with mild pneumonitis versus atelectasis.
--- NOTE | 2020-02-19 18:40 | ECG_ITS ---
[facility] ED Test Date: 2020-02-19 Pat Name: Delores Mckeon Department: Room: Gender: Female Remote Coders: : 1975 Requested By: Luis Alberto Munroe Order Number: [id number] Garland MD: Odalis Johnston M.D. Measurements Intervals [place] Rate: 97 P: 45 WV: 161 QRS: 33 QRSD: 95 T: 53 QT: 386 QTc: 492 Interpretive Statements SINUS RHYTHM LOW QRS VOLTAGE IN PRECORDIAL LEADS [QRS DEFLECTION < 1.0 mV IN CHEST LEADS] NONSPECIFIC T-WAVE ABNORMALITY Compared to ECG 01/06/2020 04:11:18 No significant changes Electronically Signed On 02-20-2020 22:51:19 CDT by Odalis Johnston M.D. [id number]
[2020-02-19 19:05] LABS: Basophils # 0.1 10^3/uL (0.0-0.1); Eosinophils # 0.2 10^3/uL (0.0-0.8); Eosinophils % 4.2 %; Hematocrit 33.6 % (37.0-47.0); Hemoglobin 9.4 g/dL (11.5-15.3); Mean Corpuscular Hemoglobin 23.9 pg (28.0-34.0); Mean Corpuscular Volume 85.5 fL (81-99); Mean Platelet Volume 9.1 fL (7.4-10.4); Monocytes # 0.4 10^3/uL (0.2-0.9); Monocytes % 7.9 %; Neutrophils # 2.3 10^3/uL (1.8-7.7); Neutrophils % 45.5 %; Nucleated Red Blood Cells % 0 %; Platelet Count 390 10^3/cmm (130-400); Red Blood Count 3.93 10^6/uL (4.1-5.3); Red Cell Distribution Width 25.2 % (12.1-15.1)
--- NOTE | 2020-02-19 19:07 | CTR_ITS ---
PROCEDURE INFORMATION: Exam: CT Angiography Head With Contrast Exam date and time: 02/19/2020 8:00 PM Age: 44 years old Clinical indication: Weakness; Additional info: L side deficiets TECHNIQUE: Imaging protocol: Computed tomography angiography of the head with intravenous contrast. 3D rendering: MIP and/or 3D reconstructed images were created by the technologist. Radiation optimization: All CT scans at this facility use at least one of these dose optimization techniques: automated exposure control; mA and/or kV adjustment per patient size (includes targeted exams where dose is matched to clinical indication); or iterative reconstruction. Contrast material: VISIPAQUE; Contrast volume: 95 ml; Contrast route: INTRAVENOUS (IV); COMPARISON: CT head wo con* [id number] 02/19/2020 6:48 PM RADIATION DOSE METRICS: Total DLP (mGy-cm): 2140.03 FINDINGS: Anterior cerebral arteries: No occlusion or significant stenosis. No aneurysm. Right internal carotid artery: Intracranial segment is patent with no significant stenosis or occlusion. No aneurysm. Right middle cerebral artery: No occlusion or significant stenosis. No aneurysm. Right posterior cerebral artery: No occlusion or significant stenosis. No aneurysm. Right vertebral artery: No occlusion or significant stenosis. No aneurysm. Left internal carotid artery: Intracranial segment is patent with no significant stenosis or occlusion. No aneurysm. Left middle cerebral artery: No occlusion or significant stenosis. No aneurysm. Left posterior cerebral artery: No occlusion or significant stenosis. No aneurysm. Left vertebral artery: No occlusion or significant stenosis. No aneurysm. Basilar artery: No occlusion or significant stenosis. No aneurysm. IMPRESSION: No large vessel stenosis or occlusion. PROCEDURE INFORMATION: Exam: CT Angiography Neck With Contrast Exam date and time: 02/19/2020 8:00 PM Age: 44 years old Clinical indication: Weakness; Additional info: L side deficiets TECHNIQUE: Imaging protocol: Computed tomography angiography of the neck with intravenous contrast. 3D rendering: MIP and/or 3D reconstructed images were created by the technologist. Radiation optimization: All CT scans at this facility use at least one of these dose optimization techniques: automated exposure control; mA and/or kV adjustment per patient size (includes targeted exams where dose is matched to clinical indication); or iterative reconstruction. Contrast material: VISIPAQUE; Contrast volume: 95 ml; Contrast route: INTRAVENOUS (IV); COMPARISON: CT head wo con* [id number] 02/19/2020 6:48 PM RADIATION DOSE METRICS: Total DLP (mGy-cm): 2140.03 FINDINGS: Right common carotid artery: No stenosis. No dissection or occlusion. Right internal carotid artery: No stenosis of the extracranial segment. No dissection or occlusion. Right external carotid artery: No occlusion or stenosis of the origin. Right vertebral artery: No stenosis. No dissection or occlusion. Left common carotid artery: No stenosis. No dissection or occlusion. Left internal carotid artery: No stenosis of the extracranial segment. No dissection or occlusion. Left external carotid artery: No occlusion or stenosis of the origin. Left vertebral artery: No stenosis. No dissection or occlusion. Other vasculature: Motion artifact degrades the images. Retropharyngeal course of bilateral internal carotid and common carotid arteries. Bones/joints: No acute fracture. Soft tissues: Normal. No significant soft tissue swelling. CT/CT angio headneck* [id number] IMPRESSION: No acute abnormality. REFERENCES: NASCET CRITERIA. The degree of internal carotid artery stenosis is based on NASCET criteria. Normal is no stenosis. Mild is less than 50% stenosis. Moderate is 50-69% stenosis. Severe is 70% to 99% stenosis. Total occlusion is no detectable patent lumen. Radiation Dose CTDIVOL = (mGy): DLP = 2140.03~2140.03 (mGy-cm)
[2020-02-19 19:17] LABS: Lactate (Lactic Acid level) 2.7 mmol/L (0.5-2.2)
[2020-02-19 19:21] LABS: Ketone (Acetest) Serum Negative (Negative)
[2020-02-19 19:26] LABS: Alanine Aminotransferase 10 U/L (0-33); Albumin Level 3.1 g/dL (3.5-5.2); Alcohol Level 278 mg/dL (0-10); Alkaline Phosphatase 207 IU/L (35-105); Anion Gap 16.9 (5-19); Aspartate Amino Transferase 16 U/L (0-32); Blood Urea Nitrogen 3 mg/dL (6-20); Calcium 7.7 mg/dL (8.5-10.5); Carbon Dioxide 22 mmol/L (22-29); Chloride 102 mmol/L (98-107); Creatine Phosphokinase 28 U/L (26-192); Globulin 3.3 g/dL (1.3-4.6); Glomerular Filtration Rate 77.6 mL/min (90-130); Glucose 109 mg/dL (65-115); Lipase 78 U/L (13-60); Osmolality Calculated 282 mOsm/kg (285-295); Sodium 138 mmol/L (136-145); Total Bilirubin 0.3 mg/dL (0.15-1.2); Total Protein 6.4 g/dL (6.6-8.7)
[2020-02-19 19:28] LABS: Potassium 2.9 mmol/L (3.5-5.1); Troponin(5th) Baseline 6 ng/L (0-10)
[2020-02-19 19:35] LABS: ABG PCO2 38.7 mmHg (35-45); ABG PH Result 7.41 (7.35-7.45); Alveolar-Arterial Oxygen Gradi 32.8 mmHg (5-10); Arterial Blood Gas Hematocrit 29.3 % (37-47); Base Excess ABG -0.4 mmol/L (-2.0-2.0); Blood Gas Sample Site Brachial, left; Blood Gas Sample Type Arterial; Carboxyhemoglobin 1.5 %THgb (0.4-20.1); HCO3 ABG 24.2 mmol/L (22-26); HGB O2 Sat 90.2 % (95-100); Methemoglobin 0.7 % (0.4-1.5); Oxygen Saturation ABG 92.3; PO2 ABG 67.9 mmHg (80.0-100.0); Potassium Level - ABG 2.8 mmol/L (3.5-5.0); Total Hemoglobin 9.5 g/dL (12-16)
[2020-02-19] MEDS: sodium chloride 0.9% 1,000 ML 999 ML IV (20:09)
[2020-02-19] MEDS: diphenhydrAMINE 50 mg/mL SDV 1mL IVP (20:10)
[2020-02-19] MEDS: potassium chloride oral liq 20 mEq/15 mL UDC 40 MEQ PO (20:13)
[2020-02-19 20:20] LABS: NT Pro B Type Natriuretic Pept 396 pg/mL (0-125)
--- NOTE | 2020-02-19 20:40 | ECG_ITS ---
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 Measurements Intervals [place] Rate: 91 P: 44 TX: 159 QRS: 31 QRSD: 92 T: 55 QT: 412 QTc: 509 Interpretive Statements SINUS RHYTHM LOW QRS VOLTAGE IN PRECORDIAL LEADS [QRS DEFLECTION < 1.0 mV IN CHEST LEADS] Compared to ECG 02/19/2020 18:50:03 T-wave abnormality no longer present Electronically Signed On 02-20-2020 23:00:46 CDT by Odalis Johnston M.D. [id number]
[2020-02-19 20:42] LABS: Magnesium 2.3 mg/dL (1.7-2.3)
[2020-02-19] MEDS: levofloxacin-dextrose 5 % 750 MG/150 ML PREMIX 150 MG IV (21:21)
[2020-02-19] MEDS: hydrocortisone 100 mg/2 mL SDV IVP (21:21)
[2020-02-19] MEDS: iodixanol 320 mg/mL 100mL Btl IV (21:54)
[2020-02-19 22:04] LABS: Troponin 5 2HR Delta 0 ABS# (0-10)
[2020-02-19 22:16] VITALS: O2SAT 94
[2020-02-19 23:08] LABS: Add Urine Microscopic? NO
[2020-02-19 23:16] LABS: Bilirubin Urine Neg (NEGATIVE); Blood Urine Neg (Negative); Glucose Urine UA Norm (Normal); Ketones Urine Negative (Negative); Leukocyte Esterase Urine Negative (Negative); Nitrate Urine Negative (Negative); Protein Urine Neg (Negative); Urine Appearance Clear (CLEAR); Urine Color Yellow (Yellow); Urobilinogen Urine Norm (Negative); pH Urine 6 (5-7)
[2020-02-19 23:20] LABS: Amphetamines Screen Urine Negative (Negative); Barbiturates Screen Urine Negative (Negative); Benzodiazepines Screen Urine Negative (Negative); Cocaine Screen Urine Negative (Negative); Opiate Screen Urine Positive (Negative); PCP Screen Urine Negative (Negative); THC Screen Urine Negative (Negative)
== END 2020-02-19 23:22 | disposition left against medical advice (07) ==
PROVIDERS: Family Medicine; Emergency Provider Emergency Medicine; PCP Internal Medicine
DX: G45.9 Transient cerebral ischemic attack, unspecified (principal); F10.120 Alcohol abuse with intoxication, uncomplicated; Y90.9 Presence of alcohol in blood, level not specified; I13.0 Hypertensive heart and chronic kidney disease with heart failure and stage 1 through stage 4 chronic kidney disease, or unspecified chronic kidney disease; N18.3 Chronic kidney disease, stage 3 (moderate); I50.30 Unspecified diastolic (congestive) heart failure; J44.9 Chronic obstructive pulmonary disease, unspecified; Z86.19 Personal history of other infectious and parasitic diseases
CPT/HCPCS: 12345; 36415; 36600; 70450; 70496; 70498; 71045; 80051; 80053; 80306; 80307; 81003; 82009; 82550; 82810; 83605; 83690; 83735; 83880; 83986; 84484; 85025; 87040; 93005; 96365; 96366; 96367; 96375; 99283; 99284; J1200; J1720; J1956; J3480; J7030; Q9967

== ENCOUNTER 2020-03-06 19:27 | Inpatient (IN) | payer MEDICARE, MEDICAID, SELFPAY ==
[2020-03-06 19:31] VITALS: BP 133/79; PULSE 107; RESP 26; TEMP 36.8; O2SAT 96; BMI 33.3
--- NOTE | 2020-03-06 19:55 | ECG_ITS ---
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 Measurements Intervals [place] Rate: 87 P: 41 LA: 173 QRS: -19 QRSD: 80 T: 27 QT: 370 QTc: 447 Interpretive Statements SINUS RHYTHM LOW QRS VOLTAGE IN PRECORDIAL LEADS [QRS DEFLECTION < 1.0 mV IN CHEST LEADS] INFERIOR MYOCARDIAL INFARCTION , PROBABLY OLD [40+ ms Q WAVE AND/OR ST/T ABNORMALITY IN II/aVF] Compared to ECG 02/19/2020 21:12:36 Myocardial infarct finding now present Electronically Signed On 03-06-2020 20:06:03 CDT by Ravinder House M.D. [id number]
--- NOTE | 2020-03-06 19:55 | XR_ITS ---
WS: [id number] PORTABLE CHEST HISTORY: sob COMPARISON: 02/19/2020 Lungs are clear and well expanded. No pleural effusion or pneumothorax. Cardiac size: Mildly enlarged cardiac silhouette. Mediastinum/Aorta: No mediastinal widening. Moderate size hiatal hernia. No osseous abnormality seen. XR/XR chest 1V portable [id number] IMPRESSION: 1. Mild cardiomegaly. 2. Moderate size hiatal hernia.
[2020-03-06] MEDS: FUROsemide 10 mg/mL SDV 10mL 80 MG IVP (20:21)
[2020-03-06 20:22] VITALS: RESP 18; O2SAT 98
[2020-03-06] MEDS: HYDROmorphone 1 mg/mL INJ 1 mL IVP ×2 (20:22→23:08)
[2020-03-06 21:15] LABS: Basophils % 0.3 %; Eosinophils # 0.3 10^3/uL (0.0-0.8); Eosinophils % 5.3 %; Hematocrit 26.9 % (37.0-47.0); Hemoglobin 7.6 g/dL (11.5-15.3); Lymphocytes # 1.1 10^3/uL (0.8-4.8); Lymphocytes % 17.8 %; Mean Corpuscular HGB Conc 28.3 g/dL (30.0-36.0); Mean Corpuscular Hemoglobin 25.1 pg (28.0-34.0); Mean Corpuscular Volume 88.8 fL (81-99); Monocytes # 0.4 10^3/uL (0.2-0.9); Monocytes % 6.4 %; Neutrophils # 4.1 10^3/uL (1.8-7.7); Neutrophils % 69.7 %; Nucleated Red Blood Cells % 0 %; Platelet Count 350 10^3/cmm (130-400); Red Blood Count 3.03 10^6/uL (4.1-5.3); Red Cell Distribution Width 23.9 % (12.1-15.1); White Blood Count 5.9 10^3/uL (4.0-10.0)
[2020-03-06 22:08] LABS: Alanine Aminotransferase 8 U/L (0-33); Albumin Level 3.1 g/dL (3.5-5.2); Alkaline Phosphatase 138 IU/L (35-105); Anion Gap 14.4 (5-19); Aspartate Amino Transferase 13 U/L (0-32); Blood Urea Nitrogen 5 mg/dL (6-20); Calcium 7.8 mg/dL (8.5-10.5); Carbon Dioxide 26 mmol/L (22-29); Chloride 100 mmol/L (98-107); Globulin 3.9 g/dL (1.3-4.6); Glomerular Filtration Rate 67.7 mL/min (90-130); Glucose 107 mg/dL (65-115); NT Pro B Type Natriuretic Pept 442 pg/mL (0-125); Osmolality Calculated 280 mOsm/kg (285-295); Potassium 3.4 mmol/L (3.5-5.1); Sodium 137 mmol/L (136-145); Total Bilirubin 0.5 mg/dL (0.15-1.2)
[2020-03-06 22:10] LABS: Alcohol Level < 10 mg/dL (0-10)
[2020-03-06 22:21] LABS: Lactic Sepsis W/Reflex 1.3 mmol/L (0.5-2.2)
[2020-03-06 23:08] VITALS: RESP 20; O2SAT 97
[2020-03-06 23:14] VITALS: BP 107/82; PULSE 98; RESP 24; O2SAT 96
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
[2020-03-07] VITALS (13 sets, daily range): BP systolic 108–137; BP diastolic 68–87; PULSE 73–100; RESP 16–20; TEMP 36.4–37.3; O2SAT 94–98
--- NOTE | 2020-03-07 01:20 | USCV_ITS ---
Mike Delores Age: 44 Gender: F : 1975 Exam Date: 03/07/2020 07:18 Ordering Phys: Magda Dennis MD Technologist: Sheryl Perales [place] [facility] [place]: SWELLING HISTORY: Lower extremity edema. PROCEDURES: Venous duplex imaging was performed in bilateral lower extremities. Bilaterally, the common femoral, superficial femoral, profunda femoral, popliteal, posterior tibial, greater saphenous veins, and the peroneal trunk were identified and interrogated in the standard fashion. FINDINGS: Normal 2-D Doppler and augmentation and compressibility throughout the lower extremity venous structures. Additional imaging through the proximal calf veins also reveals no thrombus. Limited evaluation of the greater saphenous vein is patent with no thrombus. CONCLUSIONS No DVT bilateral lower extremities. There is subcutaneous bilateral lower extremity edema noted. Dr. Kassie Darnell DO (Electronically Signed) Final Date: 07 March 2020 10:33 S
[2020-03-07] MEDS: calcium gluconate 0.1 gm/mL 10% SDV 10mL 1 GM IVP (02:01)
[2020-03-07] MEDS: ondansetron 2 mg/ML SDV 2 mL 4 MG IVP (02:01)
[2020-03-07] MEDS: potassium chloride ER 10 mEq Tablet 40 MEQ PO (02:59)
[2020-03-07] MEDS: sodium chloride 0.9% (100 ml) 100 ML (06:43)
--- NOTE | 2020-03-07 07:36 | PC.NURSE ---
Blood product infusion was not complete due to patient stating it is uncomfortable and no longer was the blood to infuse through this IV Patient also stated I want a different IV . IV is an 18g in upper left arm. IV is patent, flushed, and has blood return. Patient refuses to allow this IV to be used and requested a new one. There is 75 Ml of blood left in the unit that was wasted. A request was submitted for assistance in retaining a new IV access with ultrasound.
[2020-03-07 07:53] LABS: Glucose Point of Care 147 mg/dL (70-110)
--- NOTE | 2020-03-07 09:09 | PC.CHAP ---
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 clip on sunglasses assembler visit [] Patient/Family/Request visit [] Outpatient visit [] Follow-up visit [] Physician referral [] Code/Alert [x] Routine visit [] Staff referral [] Actively dying [] Patient sleeping [] Family support [] [] Out of room [] Palliative care [] [] Receiving care in room [] Pre-surgical visit [] Trauma [] Long length of stay [] ICU visit [] Other: Relational/Emotional Strength [] Patient feels connected with others/family/visitors/staff [] Distress [] Loneliness/isolation [] Abandonment Spirituality of Patient [] Person of Angy [] Attends Sabianist of their Angy [] Believes in Prayer [] Reads Bible or Bahai materials [] There are Spiritual issues to be addressed Nutrition Internship Interventions [x] Prayer [x] Active listening [x] Non-anxious presence [x] Spiritual/emotional support [] Crisis/trauma care [] Spiritual counseling [] Bereavement support [] Provided bereavement packet [] Provided Bible/devotional materials [] Provided toy/stuffed animal, coloring book to patient or family member [] Provided Communion [] Anointing/[place] [] Salvation [x] Completed spiritual assessment [] Other: Impact on Illness or Injury [] Angry [] Fearful [] Anxious [] Often cries [] Exhaustion [] Unable to work [] Unable to attend jew [] Unable to walk/stand [] Unable to read [] Unable to drive [] Unable to eat/drink [] Unable to sleep [] Unable to be with family [] Patient intubated [] Other: Summary Patient still having difficulty breathing. Time spent with patient 10 min
[2020-03-07] MEDS: pantoprazole 40 mg SDV IVP (09:43)
[2020-03-07] MEDS: FUROsemide 10 mg/mL SDV 2mL 40 MG IVP (09:46)
--- NOTE | 2020-03-07 12:41 | PC.RESP ---
Pulmonary Rehab information to patient.
[2020-03-07 17:27] LABS: Hematocrit 26.4 % (37.0-47.0); Hemoglobin 7.3 g/dL (11.5-15.3)
--- NOTE | 2020-03-07 17:41 | PM.PN ---
Subjective Subjective: Interval history: Delores got about 8090% of her first unit prior to the IV infiltrating. She states she still feels very tired. She does feel better than she did. History and physical was reviewed. She does not believe she is withdrawing. Medications: Reviewed: Yes Vitals/I&O/Wt Last Vital Signs Temp 99.2 F 03/07/20 15:51 Pulse 84 03/07/20 15:51 Resp 20 H 03/07/20 15:51 BP 108/72 03/07/20 15:51 Pulse Ox 98 03/07/20 15:51 03/07/20 03/07/20 03/07/20 06:59 14:59 22:59 Intake Total 0 / 0 1475 / 1475 Balance 0 / 0 1475 / 1475 Weight last 48 hrs Weight 85.275 kg Physical Exam Narrative: EXAM NARRATIVE: General exam no apparent distress. No evidence of withdrawal on exam. Cardiovascular regular in rhythm without murmur Lungs diminished breath sounds bilaterally Abdomen is soft, positive bowel sounds Extremities no cyanosis clubbing. 2+ edema. Data : 03/07/20 16:55 03/06/20 21:40 A&P Assessment and plan (1) Normocytic anemia, not due to blood loss: Hemoglobin repeated this afternoon is 7.3 still significantly low. Will observe till tomorrow. She has lost her IV. If hemoglobin does not improve with the diuresis given today, will need to ultrasound to do perhaps a midline for transfusion. Central line would carry significant risks in her. She has had a port before but there was concern of sepsis, port infection in the past. No obvious active bleeding currently. Bone marrow suppression from alcoholism may contribute. Status: Acute (2) Paraesophageal hernia: Status: Acute (3) COPD (chronic obstructive pulmonary disease): Severe but stable. Chronically on 4 L of oxygen. Status: Acute Qualifiers: COPD type: unspecified COPD Qualified Code(s): J44.9 - Chronic obstructive pulmonary disease, unspecified (4) Splenomegaly: Status: Acute (5) Hypocalcemia: Near normal. Status: Acute Additional A&P Information Alcoholism. No evidence of withdrawal. She reports she stopped drinking 3 days ago. History of seizure disorder History of splenomegaly History of cirrhosis Full code SCDs for DVT prophylaxis Attestations Medical Necessity Statement*: Needs continued hospitalization, for close follow-up with hemoglobin secondary to symptomatic anemia. May require repeat transfusion. Coding Level of Care Code Acute Inspector Fibrous Wallboard for Chg Fwd Diagnoses Normocytic anemia, not due to blood loss D64.9 Paraesophageal hernia K44.9 COPD (chronic obstructive pulmonary disease) J44.9 COPD type: unspecified COPD Splenomegaly R16.1 Hypocalcemia E83.51
[2020-03-07] MEDS: levETIRAcetam 500 mg Tablet 1000 MG PO (18:40)
[2020-03-07] MEDS: potassium chloride ER 10 mEq Tablet 20 MEQ PO (18:40)
[2020-03-07] MEDS: pantoprazole DR 40 mg Tablet PO (18:40)
[2020-03-07] MEDS: FUROsemide 40 mg Tablet PO (18:40)
[2020-03-07] MEDS: CLONazepam 0.5 mg Tablet PO (18:44)
[2020-03-08] VITALS (19 sets, daily range): BP systolic 100–145; BP diastolic 60–93; PULSE 78–100; RESP 16–20; TEMP 36.3–37.1; O2SAT 90–99
[2020-03-08 05:10] LABS: Anion Gap 15.9 (5-19); Blood Urea Nitrogen 8 mg/dL (6-20); Calcium 7.6 mg/dL (8.5-10.5); Carbon Dioxide 27 mmol/L (22-29); Chloride 101 mmol/L (98-107); Glomerular Filtration Rate 67.7 mL/min (90-130); Glucose 110 mg/dL (65-115); Osmolality Calculated 287 mOsm/kg (285-295); Potassium 3.9 mmol/L (3.5-5.1); Sodium 140 mmol/L (136-145)
[2020-03-08] MEDS: CLONazepam 0.5 mg Tablet PO ×2 (06:13→14:29)
[2020-03-08 07:37] LABS: Hematocrit 25.4 % (37.0-47.0)
[2020-03-08] MEDS: ipratropium-albuterol 3 mL Neb INHALATION (07:38)
[2020-03-08] MEDS: levothyroxine 100 mcg Tablet 200 MCG PO (08:51)
[2020-03-08] MEDS: levETIRAcetam 500 mg Tablet 1000 MG PO ×2 (08:51→17:29)
[2020-03-08] MEDS: potassium chloride ER 10 mEq Tablet 20 MEQ PO ×2 (08:51→17:29)
[2020-03-08] MEDS: pantoprazole DR 40 mg Tablet PO ×2 (08:52→17:29)
[2020-03-08] MEDS: FUROsemide 40 mg Tablet PO ×2 (08:52→17:29)
[2020-03-08] MEDS: ferrous sulfate EC 325 mg Tablet PO (08:52)
--- NOTE | 2020-03-08 10:50 | XR_ITS ---
WS: [id number] PORTABLE CHEST HISTORY: PICC PLACEMENT COMPARISON: 03/06/2020 Right-sided PICC line is been placed with tip terminating over the mid SVC after retraction. Lungs are clear and well expanded. No pleural effusion or pneumothorax. Cardiac size: Normal. Mediastinum/Aorta: Normal mediastinum. No osseous abnormality seen. XR/XR chest 1V portable [id number] IMPRESSION: Satisfactory placement right-sided PICC line.
--- NOTE | 2020-03-08 11:37 | PC.CHAP ---
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 gasket notcher visit [] Patient/Family/Request visit [] Outpatient visit [] Follow-up visit [] Physician referral [] Code/Alert [] Routine visit [] Staff referral [] Actively dying [] Patient sleeping [] Family support [] [] Out of room [] Palliative care [] [] Receiving care in room [] Pre-surgical visit [] Trauma [] Long length of stay [] ICU visit [x] Other: Fellow UP Relational/Emotional Strength [] Patient feels connected with others/family/visitors/staff [] Distress [] Loneliness/isolation [] Abandonment Spirituality of Patient [] Person of Angy [] Attends Mandaeism of their Angy [] Believes in Prayer [] Reads Bible or Catholic materials [] There are Spiritual issues to be addressed Die Assembler Interventions [] Prayer [] Active listening [] Non-anxious presence [] Spiritual/emotional support [] Crisis/trauma care [] Spiritual counseling [] Bereavement support [] Provided bereavement packet [] Provided Bible/devotional materials [] Provided toy/stuffed animal, coloring book to patient or family member [] Provided Communion [] Anointing/[place] [] Salvation [] Completed spiritual assessment [] Other: Impact on Illness or Injury [] Angry [] Fearful [] Anxious [] Often cries [] Exhaustion [] Unable to work [] Unable to attend druze [] Unable to walk/stand [] Unable to read [] Unable to drive [] Unable to eat/drink [] Unable to sleep [] Unable to be with family [] Patient intubated [] Other: Summary Fellow UP Time spent with patient 5 mins
[2020-03-08] MEDS: sodium chloride 0.9% (100 ml) 100 ML (12:27)
[2020-03-08] MEDS: FUROsemide 10 mg/mL SDV 2mL 20 MG IVP (15:26)
--- NOTE | 2020-03-08 16:44 | P.DS_ITS ---
Discharge Providers Date of Admission: 03/07/20 18:22 Date of Discharge: March 08, 2020 Attending Provider at Admission: Magda Dennis MD Attending Provider at Discharge: Sanjeev Olivo MD Primary Care Provider: Octaviano Sue MD Diagnoses at Discharge Discharge Diagnosis (1) Normocytic anemia, not due to blood loss: Status: Acute Problem details: Transfuse approximately 3 units while in the hospital. No evidence of active bleeding. (2) Paraesophageal hernia: Status: Acute (3) COPD (chronic obstructive pulmonary disease): Status: Acute Qualifiers: COPD type: unspecified COPD Qualified Code(s): J44.9 - Chronic obstructive pulmonary disease, unspecified (4) Splenomegaly: Status: Acute (5) Hypocalcemia: Status: Acute Reason for Visit Reason for Visit: sob Hospital Course Hospital Course: Delores is a 44-year-old white female who presented to the hospital with shortness of breath, dizziness. She was found to be significantly anemic, with a hemoglobin of 7.6. She also had some edema although this may not have been much more than what she has at baseline. She has had many GI evaluations, with the last EGD being in December demonstrating some gastritis. She continues to drink alcohol heavily. This is thought to play a role is in her gastritis as well as bone marrow suppression. She reports she is getting transfusions about every 1 month as an outpatient. This has not always been done at this hospital. While here she was admitted and a transfusion was ordered. During the first unit her IV infiltrated and it was discontinued with still approximately 75 to 100 cc to infuse. Hemoglobin was repeated at that time and still significantly low. A PICC line was therefore placed the next day and she received 2 more units of blood tolerating this well. She had significant improvement in shortness of breath. She believes she was ready to go home, on her normal oxygen amount of 4 L. Which she already has established at home. The PICC line will be left in at discharge, to facilitate if any other transfusions are needed in the next 6 to 8 weeks. If she does well, consideration of a port should occur. She has very difficult IV access. She had had a port in the past but this was removed secondary to concern of infection several years ago. I will defer port placement planning to her primary care provider or garage door opener installer. Other studies done while in the hospital included a venous duplex of lower extremities which was negative. A hemoglobin and hematocrit will be done after blood transfusion but she will not need to wait on the results for this hospital stay. It will serve as a baseline for recheck of her hemoglobin on follow-up with primary care provider. While in the hospital the patient had chronic pain and did receive some narcotics. A small number were ordered on discharge. I reviewed with her her listed allergy to oxycodone. She denied this reporting that was only from the Tylenol product. Precautions with its use were discussed including no driving, complicated decision-making, etc. Physical Exam Narrative: EXAM NARRATIVE: General exam no apparent distress Cardiovascular regular in rhythm Lungs clear but with diminished breath sounds bilaterally Abdomen is soft with positive bowel sounds PICC line right upper extremity without evidence of infection Extremities trace to 1+ bilateral chronic appearing edema. Discharge Data Data Completed and Pending: Completed Studies During Hospitalization Category Date Time Status XR chest 1V nichole ble [id number] Routine Exams 03/08/20 10:50 Completed XR chest 1V nichole ble [id number] Urgent Exams 03/06/20 19:55 [place] [id number] Routin e Ultrasound 03/07/20 01:20 Completed Pending at discharge Category Date Time Status Hemoglobin and He matocrit Timed Lab 03/08/20 16:39 Ordered Leukocyte Reduced RBC Routine Lab 03/07/20 01:20 Results Retype for XM Rou saud Lab 03/06/20 23:45 Results Type and Screen R outine Lab 03/06/20 23:45 Results Labs from last 24 hours 03/08/20 03/08/20 03/08/20 07:30 03:04 03:04 WBC Cancelled Corrected WBC Cancelled RBC Cancelled Hgb 7.0 L Cancelled Hct 25.4 L Cancelled MCV Cancelled MCH Cancelled MCHC Cancelled RDW Cancelled Plt Count Cancelled MPV Cancelled Gran % Cancelled Neut % (Auto) Cancelled Lymph % (Auto) Cancelled [place] % (Auto) Cancelled Eos % (Auto) Cancelled Baso % (Auto) Cancelled Neut # (Auto) Cancelled Lymph # (Auto) Cancelled [place] # (Auto) Cancelled Eos # (Auto) Cancelled Baso # (Auto) Cancelled Absolute Gran (aut o) Cancelled Nucleated RBC % (a uto) Cancelled Nucleated RBCs # Cancelled Sodium 140 Potassium 3.9 Chloride 101 Carbon Dioxide 27 Anion Gap 15.9 BUN 8 Creatinine 0.9 GFR Calculation 67.7 L Glucose 110 Calculated Osmolal ity 287 Calcium 7.6 L Blood Type Rho(D) Type Antibody Screen Crossmatch 03/07/20 03/06/20 16:55 23:45 WBC Corrected WBC RBC Hgb 7.3 L Hct 26.4 L MCV MCH MCHC RDW Plt Count MPV Gran % Neut % (Auto) Lymph % (Auto) [place] % (Auto) Eos % (Auto) Baso % (Auto) Neut # (Auto) Lymph # (Auto) [place] # (Auto) Eos # (Auto) Baso # (Auto) Absolute Gran (aut o) Nucleated RBC % (a uto) Nucleated RBCs # Sodium Potassium Chloride Carbon Dioxide Anion Gap BUN Creatinine GFR Calculation Glucose Calculated Osmolal ity Calcium Blood Type A Positive Rho(D) Type Positive Antibody Screen Negative Crossmatch See Detail Vitals: Last Vital Signs Temp 98.0 F 03/08/20 16:07 Pulse 90 03/08/20 16:07 Resp 18 03/08/20 16:07 BP 115/73 03/08/20 16:07 Pulse Ox 91 03/08/20 16:07 Discharge Plan Discharge Patient Disposition: Home Health Service Condition: Stable Prescriptions: New oxycodone 5 mg capsule 5 mg PO TID PRN (Reason: pain) Qty: 10 RF: 0 pantoprazole 40 mg Tablet,Delayed Release (Dr/Ec) 40 mg PO BID Qty: 60 RF: 0 Continued levothyroxine 200 mcg capsule 200 mcg PO DAILY RF: 0 liothyronine [Cytomel] 25 mcg tablet 25 mcg PO DAILY RF: 0 potassium chloride [Klor-Con M20] 20 mEq tablet,ER particles/crystals 20 meq PO BID RF: 0 epinephrine [EpiPen 2-Tim] 0.3 mg/0.3 mL auto-injector 0.3 mg IM ONCE RF: 0 promethazine 25 mg suppository 25 mg HI Q6H PRN (Reason: if unable to take PO zofran ) RF: 0 ondansetron HCl 4 mg tablet 4 mg PO Q6H PRN (Reason: Nausea) RF: 0 clonazepam 0.5 mg tablet 0.5 mg PO TID RF: 0 levetiracetam [Keppra] 500 mg tablet 1,000 mg PO BID RF: 0 Incruse Ellipta 62.5 mcg/actuation blister with device 1 inh INHALATION DAILY Qty: 30 RF: 3 furosemide 40 mg Tablet 40 mg PO BID RF: 0 ferrous sulfate 325 mg (65 mg iron) tablet,delayed release (DR/EC) 325 mg PO DAILY RF: 0 albuterol sulfate 0.63 mg/3 mL solution for nebulization 0.63 mg INHALATION TID 30 Days Qty: 270 RF: 0 Spiriva Respimat 2.5 mcg/actuation mist 2 puff INHALATION QAM 90 Days Qty: 4 RF: 2 Discontinued pantoprazole [Protonix] 40 mg tablet,delayed release (DR/EC) 40 mg PO BID RF: 0 Discharge Orders: Discharge Order (Routine); Ordered 03/08/20 Ordered By: Sanjeev Olivo Referrals: [facility] [place] [Outside] Octavaino Sue MD [Primary Care Provider] - 4-7 days (CBC on follow-up) Arvind Cr MD [Hospitalist] - 7-10 days Discharge Diet: Usual diet Discharge Activity: Increase activity as tolerated Activity Restrictions/Additional Instructions: Do not drink any alcohol. No alcohol. No alcohol Follow-up with primary care provider as well as hematology regarding anemia Return immediately for any fever Finish blood transfusion prior to discharge and draw hemoglobin and hematocrit. Results do not have to return prior to discharge. Discharge Attestations Time Spent in Discharge Care*: greater than 30 min Quality Metrics Clinical Quality Measures During this hospital stay, did patient experience: None Coding Level of Care Code Acute Python Consultant for Chg Fwd Diagnoses Normocytic anemia, not due to blood loss D64.9 Paraesophageal hernia K44.9 COPD (chronic obstructive pulmonary disease) J44.9 COPD type: unspecified COPD Splenomegaly R16.1 Hypocalcemia E83.51
[2020-03-08 18:45] LABS: Hematocrit 35.1 % (37.0-47.0)
[2020-03-08 18:57] LABS: Hemoglobin 10.2 g/dL (11.5-15.3)
--- NOTE | 2020-03-09 10:17 | PC.NURSE ---
This RN received a call from this patient as well as [facility] stating that the Oxycodone that was prescribed by Dr. Olivo upon d/c on 03/08 was written for capsules by mistake rather than tablets. I spoke with Dr. Olivo and it was corrected and a new E-Script was sent for tablets. I called [facility] and informed them of the correction and requested that the original order be cancelled. Per Yenifer with [facility], the original order will be cancelled and the tablets will be filled as ordered. I attempted to call and inform the patient of this, however she didn't answer and there was no voicemail available. Will try again later.
== END 2020-03-08 18:42 | disposition home health service (06) | DRG 812 ==
LOC: ER 19:45 → MEDSURG 03-07 00:29
PROVIDERS: Emergency Medicine; Admitting Provider Internal Medicine; PCP Internal Medicine; Visit Provider Internal Medicine
DX: D64.9 Anemia, unspecified (principal); I50.32 Chronic diastolic (congestive) heart failure; K76.6 Portal hypertension; J44.9 Chronic obstructive pulmonary disease, unspecified; K44.9 Diaphragmatic hernia without obstruction or gangrene; E83.51 Hypocalcemia; R16.1 Splenomegaly, not elsewhere classified; E66.01 Morbid (severe) obesity due to excess calories; Z68.33 Body mass index [BMI] 33.0-33.9, adult; K21.9 Gastro-esophageal reflux disease without esophagitis; B19.20 Unspecified viral hepatitis C without hepatic coma; K22.70 Barrett's esophagus without dysplasia; F10.20 Alcohol dependence, uncomplicated; F31.9 Bipolar disorder, unspecified; N18.3 Chronic kidney disease, stage 3 (moderate); Z86.010 Personal history of colon polyps; Z86.718 Personal history of other venous thrombosis and embolism; G40.909 Epilepsy, unspecified, not intractable, without status epilepticus; E03.9 Hypothyroidism, unspecified; Z77.22 Contact with and (suspected) exposure to environmental tobacco smoke (acute) (chronic); K70.30 Alcoholic cirrhosis of liver without ascites; Z99.81 Dependence on supplemental oxygen; G89.29 Other chronic pain
CPT/HCPCS: 12345; 36415; 36416; 36430; 36569; 71045; 80048; 80053; 80307; 82962; 83605; 83880; 85014; 85018; 85025; 86850; 86900; 86920; 93005; 93970; 94640; 96375; 99282; C9113; G0378; J0610; J1170; J1940; J2405; J2930; P9016

== ENCOUNTER 2020-03-14 19:15 | Emergency (ER) | payer MEDICARE, MEDICAID, SELFPAY ==
[2020-03-14 19:28] VITALS: BP 141/95; PULSE 112; RESP 16; TEMP 35.8; O2SAT 95; BMI 36.9
--- NOTE | 2020-03-14 20:40 | XRR_ITS ---
PROCEDURE INFORMATION: Exam: XR Chest, 1 View Exam date and time: 03/14/2020 9:14 PM Age: 44 years old Clinical indication: Dyspnea; Prior surgery; Surgery type: Picc line; Patient HX: Breast, cervical CA TECHNIQUE: Imaging protocol: XR of the chest Views: 1 view. COMPARISON: CR XR chest 1V portable [id number] 03/08/2020 10:59 AM FINDINGS: Tubes, catheters and devices: There is a right arm PICC line present with the tip in the superior vena cava. Lungs: No pneumonia or pulmonary edema. Pleural space: No pleural effusion or pneumothorax. Heart/Mediastinum: The cardiac silhouette is enlarged. Large hiatal hernia. Bones/joints: No acute osseous abnormality. XR/XR chest 1V portable [id number] IMPRESSION: 1. Cardiomegaly. 2. Large hiatal hernia.
--- NOTE | 2020-03-14 20:41 | ECG_ITS ---
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 Measurements Intervals [place] Rate: 96 P: 29 ID: 168 QRS: 5 QRSD: 90 T: 38 QT: 376 QTc: 476 Interpretive Statements SINUS RHYTHM Compared to ECG 03/06/2020 20:12:52 Myocardial infarct finding no longer present Electronically Signed On 03-15-2020 19:16:51 CDT by Magda Bennett M.D. [id number]
[2020-03-14 21:11] LABS: ABG PCO2 41.4 mmHg (35-45); ABG PH Result 7.41 (7.35-7.45); Arterial Blood Gas Hematocrit 30.8 % (37-47); Base Excess ABG 1.1 mmol/L (-2.0-2.0); Blood Gas Allen Test Pos; Blood Gas Sample Site Radial, left; Blood Gas Sample Type Arterial; HCO3 ABG 25.9 mmol/L (22-26); PO2 ABG 76.1 mmHg (80.0-100.0)
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
[2020-03-14] MEDS: ipratropium-albuterol 3 mL Neb 9 ML INHALATION (21:14)
[2020-03-14 21:15] VITALS: PULSE 96; RESP 20; O2SAT 97
[2020-03-14 21:29] LABS: Basophils # 0.1 10^3/uL (0.0-0.1); Basophils % 0.8 %; Eosinophils # 0.2 10^3/uL (0.0-0.8); Eosinophils % 2.4 %; Hematocrit 32.7 % (37.0-47.0); Hemoglobin 9.5 g/dL (11.5-15.3); Lymphocytes # 0.9 10^3/uL (0.8-4.8); Lymphocytes % 10.9 %; Mean Corpuscular HGB Conc 29.1 g/dL (30.0-36.0); Mean Corpuscular Hemoglobin 26.2 pg (28.0-34.0); Mean Corpuscular Volume 90.3 fL (81-99); Mean Platelet Volume 10.4 fL (7.4-10.4); Monocytes # 0.6 10^3/uL (0.2-0.9); Monocytes % 7.4 %; Neutrophils # 6.13 10^3/uL (1.8-7.7); Nucleated Red Blood Cells % 0 %; Platelet Count 267 10^3/cmm (130-400); Red Blood Count 3.62 10^6/uL (4.1-5.3); Red Cell Distribution Width 19.8 % (12.1-15.1); White Blood Count 7.9 10^3/uL (4.0-10.0)
[2020-03-14 21:49] LABS: Troponin(5th) Baseline 6 ng/L (0-10)
[2020-03-14] MEDS: FUROsemide 10 mg/mL SDV 4mL 40 MG IVP (22:06)
[2020-03-14 22:22] LABS: Alanine Aminotransferase 15 U/L (0-33); Albumin Level 3.3 g/dL (3.5-5.2); Alkaline Phosphatase 158 IU/L (35-105); Anion Gap 13.6 (5-19); Aspartate Amino Transferase 11 U/L (0-32); Blood Urea Nitrogen 8 mg/dL (6-20); Calcium 8.4 mg/dL (8.5-10.5); Carbon Dioxide 26 mmol/L (22-29); Chloride 99 mmol/L (98-107); Globulin 3.6 g/dL (1.3-4.6); Glomerular Filtration Rate 77.6 mL/min (90-130); Glucose 124 mg/dL (65-115); Magnesium 2.3 mg/dL (1.7-2.3); NT Pro B Type Natriuretic Pept 346 pg/mL (0-125); Osmolality Calculated 277 mOsm/kg (285-295); Potassium 3.6 mmol/L (3.5-5.1); Sodium 135 mmol/L (136-145); Total Bilirubin 1.2 mg/dL (0.15-1.2); Total Protein 6.9 g/dL (6.6-8.7)
[2020-03-14] MEDS: FUROsemide 10 mg/mL SDV 2mL 20 MG IVP (23:04)
[2020-03-14] MEDS: albuterol 8 gm MDI 2 PUFF INHALATION (23:06)
[2020-03-14 23:07] VITALS: PULSE 109; RESP 18; O2SAT 98
[2020-03-14 23:11] VITALS: BP 129/95; PULSE 112; RESP 18; O2SAT 94
== END 2020-03-14 23:12 | disposition home or self-care (01) ==
PROVIDERS: Emergency Provider Emergency Medicine; PCP Internal Medicine
DX: Z76.0 Encounter for issue of repeat prescription (principal); N18.3 Chronic kidney disease, stage 3 (moderate); I50.30 Unspecified diastolic (congestive) heart failure; Z86.19 Personal history of other infectious and parasitic diseases; J44.9 Chronic obstructive pulmonary disease, unspecified; Z77.22 Contact with and (suspected) exposure to environmental tobacco smoke (acute) (chronic)
CPT/HCPCS: 12345; 36600; 71045; 80053; 82803; 83735; 83880; 84484; 85025; 93005; 94640; 96374; 96375; 96376; 99283; 99284; J1940; J3535

== ENCOUNTER 2020-03-21 01:29 | Emergency (ER) | payer MEDICARE, MEDICAID, SELFPAY ==
[2020-03-21 01:35] VITALS: BP 136/96; PULSE 107; RESP 23; TEMP 36.4; O2SAT 100; BMI 35.4
--- NOTE | 2020-03-21 01:43 | XR_ITS ---
WS: [id number] PORTABLE CHEST HISTORY: sob COMPARISON: 03/14/2020 Right-sided PICC line has been placed with tip in the mid SVC. Lungs are clear and well expanded. Mild blunting of the LEFT costophrenic angle. Cardiac size: Moderately enlarged cardiac silhouette. Mediastinum/Aorta: No mediastinal widening. Small hiatal hernia. No osseous abnormality seen. XR/XR chest 1V portable [id number] IMPRESSION: 1. Minimal pleural thickening or pleural fluid at the LEFT costophrenic angle. 2. Small hiatal hernia.
--- NOTE | 2020-03-21 01:43 | ECG_ITS ---
[facility] Test Date: 2020-03-21 Pat Name: Delores Mckeon Department: Room: Gender: Female [employer]: : 1975 Requested By: Navarro Plata Order Number: [id number] Gar[place] MD: Gamaliel Friend M.D. Measurements Intervals [place] Rate: 93 P: -2 DC: 154 QRS: -2 QRSD: 77 T: 25 QT: 378 QTc: 472 Interpretive Statements SINUS RHYTHM LOW QRS VOLTAGE IN PRECORDIAL LEADS [QRS DEFLECTION < 1.0 mV IN CHEST LEADS] POSSIBLE RIGHT VENTRICULAR CONDUCTION DELAY [RSR (QR) IN V1/V2] ANTEROSEPTAL MYOCARDIAL INFARCTION , OF INDETERMINATE AGE [40+ ms Q WAVE IN V1-V4] Compared to ECG 03/14/2020 21:16:34 Low QRS voltage now present Myocardial infarct finding now present Electronically Signed On 03-22-2020 16:23:33 CDT by Gamaliel Friend M.D. [id number]
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
[2020-03-21 01:49] VITALS: BP 150/109; PULSE 108; RESP 16; O2SAT 99
[2020-03-21 02:00] LABS: Basophils # 0.1 10^3/uL (0.0-0.1); Basophils % 0.9 %; Eosinophils # 0.2 10^3/uL (0.0-0.8); Eosinophils % 2.2 %; Hematocrit 38.4 % (37.0-47.0); Hemoglobin 11.1 g/dL (11.5-15.3); Lymphocytes # 1.5 10^3/uL (0.8-4.8); Lymphocytes % 22.4 %; Mean Corpuscular HGB Conc 28.9 g/dL (30.0-36.0); Mean Corpuscular Hemoglobin 26.4 pg (28.0-34.0); Mean Corpuscular Volume 91.2 fL (81-99); Mean Platelet Volume 9.2 fL (7.4-10.4); Monocytes # 0.6 10^3/uL (0.2-0.9); Monocytes % 8.5 %; Neutrophils # 4.38 10^3/uL (1.8-7.7); Neutrophils % 65.6 %; Nucleated Red Blood Cells % 0 %; Platelet Count 304 10^3/cmm (130-400); Red Blood Count 4.21 10^6/uL (4.1-5.3); Red Cell Distribution Width 19.9 % (12.1-15.1); White Blood Count 6.7 10^3/uL (4.0-10.0)
[2020-03-21] MEDS: FUROsemide 10 mg/mL SDV 10mL 60 MG IVP (02:07)
[2020-03-21] MEDS: ipratropium-albuterol 3 mL Neb INHALATION (02:07)
[2020-03-21 02:08] VITALS: PULSE 101; RESP 20; O2SAT 99
[2020-03-21 02:28] LABS: Alanine Aminotransferase 11 U/L (0-33); Albumin Level 3.6 g/dL (3.5-5.2); Alkaline Phosphatase 190 IU/L (35-105); Aspartate Amino Transferase 12 U/L (0-32); Blood Urea Nitrogen 5 mg/dL (6-20); Calcium 8.1 mg/dL (8.5-10.5); Carbon Dioxide 23 mmol/L (22-29); Chloride 103 mmol/L (98-107); Creatinine Clr Calc Pharmacy 84.3977; Globulin 3.8 g/dL (1.3-4.6); Glomerular Filtration Rate 67.7 mL/min (90-130); Glucose 107 mg/dL (65-115); NT Pro B Type Natriuretic Pept 43 pg/mL (0-125); Osmolality Calculated 282 mOsm/kg (285-295); Sodium 138 mmol/L (136-145); Total Bilirubin 1.4 mg/dL (0.15-1.2); Total Protein 7.4 g/dL (6.6-8.7)
[2020-03-21 02:40] LABS: Anion Gap 16.2 (5-19); Potassium 4.2 mmol/L (3.5-5.1)
[2020-03-21 03:23] VITALS: BP 157/105; PULSE 111; RESP 16; O2SAT 96
== END 2020-03-21 03:32 | disposition home or self-care (01) ==
PROVIDERS: Emergency Provider Emergency Medicine; PCP Internal Medicine
DX: J44.9 Chronic obstructive pulmonary disease, unspecified (principal); Z77.22 Contact with and (suspected) exposure to environmental tobacco smoke (acute) (chronic); N18.3 Chronic kidney disease, stage 3 (moderate); I50.30 Unspecified diastolic (congestive) heart failure; Z86.19 Personal history of other infectious and parasitic diseases
CPT/HCPCS: 12345; 36415; 71045; 80053; 83880; 85025; 93005; 94640; 96374; 96375; 99282; 99284; J1940; J2930; J7611

== ENCOUNTER 2020-03-27 14:36 | Emergency (ER) | payer MEDICARE, MEDICAID, SELFPAY ==
[2020-03-27 14:43] VITALS: BP 133/87; PULSE 116; RESP 20; TEMP 37.2; O2SAT 96; BMI 35.7
== END 2020-03-27 16:25 | disposition left against medical advice (07) ==
LOC: ER 15:34
PROVIDERS: Emergency Provider Emergency Medicine; PCP Internal Medicine
DX: Z53.21 Procedure and treatment not carried out due to patient leaving prior to being seen by health care provider (principal)
CPT/HCPCS: 99281

== ENCOUNTER 2020-03-29 13:26 | Emergency (ER) | payer MEDICARE, MEDICAID, SELFPAY ==
[2020-03-29 13:28] VITALS: BP 143/104; PULSE 102; RESP 18; TEMP 36.6; O2SAT 95; BMI 40.7
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
--- NOTE | 2020-03-29 13:51 | PC.NURSE ---
Pt told Dr Begum that she wants her PICC line removed, and that there is nothing legally stopping her from ripping it out. Dr Begum warned pt not to take the PICC line out d/t risks of complications that could arise from this. Pt reports she is unable to care for the PICC line. PICC line dressing replaced. Pt educated on need to keep PICC line until PAC access can be obtained again. Pt verbalizes understanding of this.
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
== END 2020-03-29 14:19 | disposition home or self-care (01) ==
LOC: ER 13:48
PROVIDERS: Emergency Provider Family Medicine; PCP Internal Medicine
DX: T82.9XXA Unspecified complication of cardiac and vascular prosthetic device, implant and graft, initial encounter (principal); N18.3 Chronic kidney disease, stage 3 (moderate); I50.30 Unspecified diastolic (congestive) heart failure; Z86.19 Personal history of other infectious and parasitic diseases; Z77.22 Contact with and (suspected) exposure to environmental tobacco smoke (acute) (chronic)
CPT/HCPCS: 12345; 99282

== ENCOUNTER 2020-04-06 16:07 | Emergency (ER) | payer MEDICARE, MEDICAID, SELFPAY ==
[2020-04-06 16:22] VITALS: BP 118/74; PULSE 104; RESP 18; TEMP 36.7; O2SAT 94; BMI 35.4
== END 2020-04-06 18:58 | disposition left against medical advice (07) ==
PROVIDERS: Emergency Provider Emergency Medicine; PCP Internal Medicine
DX: Z53.21 Procedure and treatment not carried out due to patient leaving prior to being seen by health care provider (principal)
CPT/HCPCS: 99281

== ENCOUNTER 2020-04-09 04:50 | Emergency (ER) | payer MEDICARE, MEDICAID, SELFPAY ==
[2020-04-09 04:56] VITALS: BP 138/90; PULSE 133; RESP 32; TEMP 36.4; O2SAT 93; BMI 35.4
--- NOTE | 2020-04-09 05:03 | ECG_ITS ---
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 Measurements Intervals [place] Rate: 106 P: 40 FL: 167 QRS: 5 QRSD: 69 T: 22 QT: 338 QTc: 450 Interpretive Statements SINUS TACHYCARDIA MINIMAL ST DEPRESSION [0.025+ mV ST DEPRESSION] Compared to ECG 03/21/2020 02:12:25 ST (T wave) deviation now present Sinus rhythm no longer present Myocardial infarct finding no longer present Electronically Signed On 04-09-2020 12:41:42 CDT by Odalis Johnston M.D. [id number]
--- NOTE | 2020-04-09 05:03 | XRR_ITS ---
PROCEDURE INFORMATION: Exam: XR Chest, 1 View Exam date and time: 04/09/2020 6:06 AM Age: 44 years old Clinical indication: Shortness of breath; Additional info: SOB TECHNIQUE: Imaging protocol: XR of the chest Views: 1 view. COMPARISON: CR XR chest 1V portable [id number] 03/21/2020 1:49 AM FINDINGS: Tubes, catheters and devices: Right arm PICC catheter, not significantly changed in position. Lungs: No definite CHF/pulmonary edema. Poor inspiration somewhat limits evaluation, especially of the lung bases. Suspect mild right lung base opacities, new since the prior exam. This could represent pneumonitis or atelectasis. Please correlate clinically. Visible lungs appear essentially clear. Pleural space: No visible pneumothorax. No definite pleural fluid. Heart/Mediastinum: Mild to moderate cardiomegaly, essentially stable. Large hiatal hernia again identified. Bones/joints: No significant acute finding. XR/XR chest 1V portable [id number] IMPRESSION: 1. Suspect mild right lung base opacities, new since the prior exam. This could represent pneumonitis or atelectasis. Please correlate clinically. 2. Other findings discussed above.
[2020-04-09 05:25] LABS: Basophils % 0.6 %; Eosinophils # 0.1 10^3/uL (0.0-0.8); Hematocrit 30.7 % (37.0-47.0); Hemoglobin 8.6 g/dL (11.5-15.3); Lymphocytes # 0.7 10^3/uL (0.8-4.8); Lymphocytes % 11.2 %; Mean Corpuscular Hemoglobin 26.7 pg (28.0-34.0); Mean Corpuscular Volume 95.3 fL (81-99); Mean Platelet Volume 9.6 fL (7.4-10.4); Monocytes # 0.5 10^3/uL (0.2-0.9); Monocytes % 7.8 %; Neutrophils # 4.95 10^3/uL (1.8-7.7); Neutrophils % 78.9 %; Nucleated Red Blood Cells % 0 %; Platelet Count 255 10^3/cmm (130-400); Red Blood Count 3.22 10^6/uL (4.1-5.3); Red Cell Distribution Width 20.6 % (12.1-15.1); White Blood Count 6.3 10^3/uL (4.0-10.0)
[2020-04-09 05:35] LABS: INR 1.03 (0.8-1.2)
[2020-04-09 05:42] LABS: Troponin(5th) Baseline 6 ng/L (0-10)
[2020-04-09 05:48] LABS: ABG PCO2 42.4 mmHg (35-45); ABG PH Result 7.38 (7.35-7.45); Arterial Blood Gas Hematocrit 28.7 % (37-47); Base Excess ABG -0.4 mmol/L (-2.0-2.0); Blood Gas Operator Identificat HARKR; Blood Gas Sample Site Brachial, left; Blood Gas Sample Type Arterial; Carboxyhemoglobin 1.3 %THgb (0.4-20.1); HCO3 ABG 24.9 mmol/L (22-26); HGB O2 Sat 96.9 % (95-100); Methemoglobin 0.6 % (0.4-1.5); Oxygen Device NC; Total Hemoglobin 9.4 g/dL (12-16)
[2020-04-09 05:49] LABS: Blood Gas Allen Test Pos
[2020-04-09 05:52] LABS: Alanine Aminotransferase 9 U/L (0-33); Albumin Level 3.8 g/dL (3.5-5.2); Alkaline Phosphatase 171 IU/L (35-105); Anion Gap 14.7 (5-19); Aspartate Amino Transferase 10 U/L (0-32); Blood Urea Nitrogen 6 mg/dL (6-20); Calcium 7.8 mg/dL (8.5-10.5); Carbon Dioxide 26 mmol/L (22-29); Chloride 103 mmol/L (98-107); Creatinine Clr Calc Pharmacy 84.3977; Globulin 2.8 g/dL (1.3-4.6); Glomerular Filtration Rate 67.7 mL/min (90-130); Glucose 129 mg/dL (65-115); NT Pro B Type Natriuretic Pept 141 pg/mL (0-125); Osmolality Calculated 287 mOsm/kg (285-295); Potassium 3.7 mmol/L (3.5-5.1); Sodium 140 mmol/L (136-145); Total Bilirubin 0.8 mg/dL (0.15-1.2); Total Protein 6.6 g/dL (6.6-8.7)
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
[2020-04-09 06:20] VITALS: PULSE 101; RESP 20; O2SAT 98
[2020-04-09] MEDS: ipratropium-albuterol 3 mL Neb INHALATION (06:20)
[2020-04-09] MEDS: FUROsemide 10 mg/mL SDV 10mL 80 MG IVP (06:28)
[2020-04-09 06:30] VITALS: PULSE 98
[2020-04-09 06:38] VITALS: BP 122/88; PULSE 78; RESP 19; O2SAT 96
== END 2020-04-09 06:43 | disposition home or self-care (01) ==
PROVIDERS: Emergency Provider Emergency Medicine; PCP Internal Medicine
DX: R60.9 Edema, unspecified (principal); J44.1 Chronic obstructive pulmonary disease with (acute) exacerbation; N18.3 Chronic kidney disease, stage 3 (moderate); I50.30 Unspecified diastolic (congestive) heart failure; Z86.19 Personal history of other infectious and parasitic diseases; Z77.22 Contact with and (suspected) exposure to environmental tobacco smoke (acute) (chronic); R07.9 Chest pain, unspecified
CPT/HCPCS: 12345; 36600; 71045; 80053; 82805; 83880; 84484; 85025; 85610; 87040; 87077; 87205; 93005; 94640; 96374; 96375; 99282; 99284; J1940; J2930

== ENCOUNTER 2020-04-18 21:56 | Emergency (ER) | payer MEDICARE, MEDICAID, SELFPAY ==
[2020-04-18 22:18] VITALS: BP 110/66; PULSE 108; RESP 20; TEMP 36.9; O2SAT 94; BMI 38.9
--- NOTE | 2020-04-18 22:26 | XR_ITS ---
WS: [id number] EXAM: AP CHEST: PORTABLE UPRIGHT DATE OF EXAM: 04/18/2020, 2357 hours COMPARISON: Chest x-ray from 04/09/2020 HISTORY: Patient is 44 years old with shortness of breath. History of breast and cervical cancer.. FINDINGS: The cardiac silhouette is enlarged but similar. Retrocardiac hiatal hernia again noted with air-flui d level no longer visualized. The mediastinal contours are similar. Right-sided PICC line ends in t he SVC region. The pulmonary vascularity is congested. No interstitial edema. There is some minima l infiltrate in the left lung base. Question compression atelectasis secondary to the hiatal hernia. Loss of the left heart border is presumably related to soft tissue attenuation artifact versus minima l infiltrate atelectasis in the area of the lingula. There is no effusion or pneumothorax. No acute bony abnormality is seen. XR/XR chest 1V portable [id number] IMPRESSION: Stable enlarged cardiac silhouette. Some minimal infiltrate left lung base pres umably compression atelectasis. Pulmonary vascular congestion without pulmonary edema.
--- NOTE | 2020-04-18 22:27 | ECG_ITS ---
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 Measurements Intervals [place] Rate: 99 P: 37 SC: 150 QRS: 29 QRSD: 80 T: 74 QT: 341 QTc: 438 Interpretive Statements SINUS RHYTHM LOW QRS VOLTAGE IN PRECORDIAL LEADS [QRS DEFLECTION < 1.0 mV IN CHEST LEADS] MINIMAL ST DEPRESSION [0.025+ mV ST DEPRESSION] Compared to ECG 04/09/2020 05:05:35 Low QRS voltage now present ST (T wave) deviation still present Electronically Signed On 04-19-2020 13:37:27 CDT by Johnny Walsh M.D. [id number]
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
[2020-04-18] MEDS: LORazepam 2 mg/mL INJ 1 mL 1 MG IVP (22:50)
[2020-04-18 22:51] VITALS: BP 114/59; PULSE 98; RESP 16; O2SAT 93
[2020-04-18] MEDS: FUROsemide 10 mg/mL SDV 10mL 60 MG IVP (22:54)
[2020-04-18 23:53] LABS: Basophils # 0.1 10^3/uL (0.0-0.1); Basophils % 0.4 %; Eosinophils # 0.1 10^3/uL (0.0-0.8); Eosinophils % 0.9 %; Hemoglobin 8.4 g/dL (11.5-15.3); Lymphocytes # 0.9 10^3/uL (0.8-4.8); Lymphocytes % 7.3 %; Mean Corpuscular Hemoglobin 25.9 pg (28.0-34.0); Mean Corpuscular Volume 92.6 fL (81-99); Mean Platelet Volume 9.4 fL (7.4-10.4); Monocytes # 0.9 10^3/uL (0.2-0.9); Monocytes % 7.9 %; Neutrophils # 9.61 10^3/uL (1.8-7.7); Nucleated Red Blood Cells % 0 %; Platelet Count 235 10^3/cmm (130-400); Red Blood Count 3.24 10^6/uL (4.1-5.3); Red Cell Distribution Width 19.8 % (12.1-15.1); White Blood Count 11.6 10^3/uL (4.0-10.0)
[2020-04-19 00:23] VITALS: RESP 20
[2020-04-19] MEDS: morphine 4 mg/mL SDV 1 mL IVP (00:23)
[2020-04-19 00:24] LABS: Alanine Aminotransferase 7 U/L (0-33); Albumin Level 3.6 g/dL (3.5-5.2); Alkaline Phosphatase 137 IU/L (35-105); Anion Gap 13.8 (5-19); Aspartate Amino Transferase 8 U/L (0-32); Blood Urea Nitrogen 10 mg/dL (6-20); Calcium 7.1 mg/dL (8.5-10.5); Carbon Dioxide 22 mmol/L (22-29); Chloride 103 mmol/L (98-107); Globulin 3.4 g/dL (1.3-4.6); Glomerular Filtration Rate 48.6 mL/min (90-130); Glucose 112 mg/dL (65-115); NT Pro B Type Natriuretic Pept 1892 pg/mL (0-125); Osmolality Calculated 277 mOsm/kg (285-295); Potassium 3.8 mmol/L (3.5-5.1); Sodium 135 mmol/L (136-145); Total Bilirubin 0.7 mg/dL (0.15-1.2)
[2020-04-19 00:27] VITALS: BP 127/93; PULSE 98; RESP 20; O2SAT 97
[2020-04-19 01:41] VITALS: BP 121/85; PULSE 97; RESP 22; O2SAT 92
== END 2020-04-19 01:42 | disposition home or self-care (01) ==
PROVIDERS: Emergency Provider Emergency Medicine; PCP Internal Medicine
DX: I11.0 Hypertensive heart disease with heart failure (principal); I50.9 Heart failure, unspecified; N18.3 Chronic kidney disease, stage 3 (moderate); J44.9 Chronic obstructive pulmonary disease, unspecified; Z86.19 Personal history of other infectious and parasitic diseases; Z77.22 Contact with and (suspected) exposure to environmental tobacco smoke (acute) (chronic)
CPT/HCPCS: 12345; 36415; 71045; 80053; 83880; 85025; 93005; 96374; 96375; 99282; 99284; J1940; J2060; J2270

== ENCOUNTER 2020-04-20 19:16 | Emergency (ER) | payer MEDICARE, MEDICAID, SELFPAY ==
--- NOTE | 2020-04-20 19:19 | XR_ITS ---
WS: [id number] EXAM: AP CHEST: PORTABLE UPRIGHT DATE OF EXAM: 04/20/2020, 1924 hours COMPARISON: Chest x-ray from 04/18/2020 HISTORY: Patient is 44 years old with chest pain and shortness of breath. Leg swelling for the last 3 days. Hi story of breast and cervical cancer. Prior cholecystectomy and section. FINDINGS: The cardiac silhouette is enlarged but similar. The mediastinal contours are unchanged. Right-sided PICC line ends in the SVC region. The pulmonary vascularity is normal. Right lung is clear. There is minimal infiltrate/atelectasis in the left lung base which is less apparent than on the exam from 04/18/2020. Retrocardiac hernia again noted. There is no effusion or pneumothorax. No acute bony ab normality is seen. XR/XR chest 1V portable [id number] IMPRESSION: Regressing infiltrate/atelectatic left lung base. Persistent findings of a retrocardiac hiatal hernia. Right lung is clear. No pulmonary edema.
[2020-04-20 19:37] VITALS: BP 113/70; PULSE 102; RESP 22; TEMP 36.7; O2SAT 98; BMI 44.2
== END 2020-04-20 20:30 | disposition left against medical advice (07) ==
LOC: ER 19:41
PROVIDERS: Emergency Provider Emergency Medicine; PCP Internal Medicine
DX: Z53.21 Procedure and treatment not carried out due to patient leaving prior to being seen by health care provider (principal)
CPT/HCPCS: 71045; 99281; 99283

== ENCOUNTER 2020-04-24 16:20 | Observation (INO) | payer MEDICARE, MEDICAID, SELFPAY ==
[2020-04-24 16:38] VITALS: BP 101/55; PULSE 81; RESP 18; TEMP 36.5; O2SAT 96; BMI 40.4
--- NOTE | 2020-04-24 17:12 | ECG_ITS ---
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 Measurements Intervals [place] Rate: 74 P: 33 AR: 157 QRS: 22 QRSD: 86 T: 41 QT: 404 QTc: 450 Interpretive Statements SINUS RHYTHM LOW QRS VOLTAGE IN PRECORDIAL LEADS [QRS DEFLECTION < 1.0 mV IN CHEST LEADS] Compared to ECG 04/18/2020 22:39:40 ST (T wave) deviation no longer present Electronically Signed On 04-24-2020 18:32:02 CDT by Johnny Walsh M.D. [id number]
--- NOTE | 2020-04-24 17:12 | XRR_ITS ---
PROCEDURE INFORMATION: Exam: XR Chest, 1 View Exam date and time: 04/24/2020 5:28 PM Age: 44 years old Clinical indication: Dyspnea TECHNIQUE: Imaging protocol: XR of the chest Views: 1 view. COMPARISON: CR XR chest 1V portable [id number] 04/20/2020 7:22 PM FINDINGS: Tubes, catheters and devices: There is a right arm PICC with the tip in the superior vena cava. Lungs: Poor inspiration. Decreased lung volumes. No definite pneumonia or pulmonary edema. Pleural space: No pleural effusion or pneumothorax. Heart/Mediastinum: The cardiac silhouette appears enlarged, potentially accentuated by a left epicardial fat pad. There is a moderate size hiatal hernia. The superior mediastinal contours are normal. Bones/joints: No acute osseous abnormality. XR/XR chest 1V portable [id number] IMPRESSION: Poor inspiration. No definite pneumonia or pulmonary edema.
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
[2020-04-24 18:12] LABS: Add Urine Microscopic? YES; Bilirubin Urine Neg (NEGATIVE); Blood Urine Neg (Negative); Glucose Urine UA Norm (Normal); Ketones Urine Negative (Negative); Leukocyte Esterase Urine Negative (Negative); Nitrate Urine Negative (Negative); Protein Urine Neg (Negative); Urine Appearance SL Hazy (CLEAR); Urine Color Yellow (Yellow); Urobilinogen Urine 1 mg/dL (Negative); pH Urine 5 (5-7)
[2020-04-24 18:15] LABS: Add Urine Culture? No; Bacteria Urine 2+; Hyaline Casts Urine 15-25; Mucus Urine 2+; WBC Urine 0-4 /hpf (0-5)
--- NOTE | 2020-04-24 19:12 | ECG_ITS ---
[facility] Test Date: 2020-04-24 Pat Name: Delores Mckeon Department: Room: Gender: Female Charger: : 1975 Requested By: Cindy Munroe Order Number: [id number] [place] MD: Johnny Walsh M.D. Measurements Intervals [place] Rate: 73 P: 45 [place]: 172 QRS: 47 QRSD: 71 T: 55 QT: 394 QTc: 435 Interpretive Statements SINUS RHYTHM LOW QRS VOLTAGE IN PRECORDIAL LEADS [QRS DEFLECTION < 1.0 mV IN CHEST LEADS] ST DEPRESSION [0.05+ mV ST DEPRESSION] Compared to ECG 04/24/2020 18:31:57 ST (T wave) deviation now present Electronically Signed On 04-25-2020 12:03:22 CDT by Johnny Walsh M.D. [email or web address]
[2020-04-24 19:23] LABS: Basophils # 0.1 10^3/uL (0.0-0.1); Basophils % 0.6 %; Eosinophils # 0.2 10^3/uL (0.0-0.8); Eosinophils % 1.9 %; Hematocrit 25.5 % (37.0-47.0); Hemoglobin 7.1 g/dL (11.5-15.3); Lymphocytes # 0.7 10^3/uL (0.8-4.8); Lymphocytes % 8.7 %; Mean Corpuscular HGB Conc 27.8 g/dL (30.0-36.0); Mean Corpuscular Hemoglobin 25.9 pg (28.0-34.0); Mean Corpuscular Volume 93.1 fL (81-99); Mean Platelet Volume 10.5 fL (7.4-10.4); Monocytes # 0.5 10^3/uL (0.2-0.9); Monocytes % 5.6 %; Neutrophils # 6.71 10^3/uL (1.8-7.7); Neutrophils % 82.8 %; Nucleated Red Blood Cells % 0 %; Platelet Count 173 10^3/cmm (130-400); Red Blood Count 2.74 10^6/uL (4.1-5.3); Red Cell Distribution Width 19.2 % (12.1-15.1); White Blood Count 8.1 10^3/uL (4.0-10.0)
[2020-04-24 19:48] LABS: Lactic Sepsis W/Reflex 1.3 mmol/L (0.5-2.2)
[2020-04-24 20:09] LABS: Alanine Aminotransferase 6 U/L (0-33); Albumin Level 3.2 g/dL (3.5-5.2); Alkaline Phosphatase 129 IU/L (35-105); Anion Gap 13.2 (5-19); Aspartate Amino Transferase 8 U/L (0-32); Blood Urea Nitrogen 12 mg/dL (6-20); Calcium 7.1 mg/dL (8.5-10.5); Carbon Dioxide 22 mmol/L (22-29); Chloride 98 mmol/L (98-107); Globulin 3.2 g/dL (1.3-4.6); Glucose 89 mg/dL (65-115); Lipase 14 U/L (13-60); NT Pro B Type Natriuretic Pept 1601 pg/mL (0-125); Osmolality Calculated 266 mOsm/kg (285-295); Potassium 3.2 mmol/L (3.5-5.1); Procalcitonin 8.65 ng/mL (0-0.5); Sodium 130 mmol/L (136-145); Total Bilirubin 0.5 mg/dL (0.15-1.2); Total Protein 6.4 g/dL (6.6-8.7)
[2020-04-24 20:10] LABS: Troponin(5th) Baseline 6 ng/L (0-10)
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
[2020-04-24] MEDS: FUROsemide 10 mg/mL SDV 10mL 80 MG IVP (20:42)
[2020-04-24 20:44] VITALS: RESP 18
[2020-04-24] MEDS: fentaNYL 50 mcg/mL INJ 2mL 100 MCG IVP (20:44)
[2020-04-24] MEDS: ondansetron 2 mg/ML SDV 2 mL 4 MG IVP (20:52)
[2020-04-24 21:20] LABS: Troponin 5 2HR Delta 0 ABS# (0-10)
[2020-04-24 21:24] VITALS: BP 115/68; PULSE 75; RESP 18; O2SAT 98
[2020-04-24] MEDS: potassium chloride ER 10 mEq Tablet 40 MEQ PO (21:33)
[2020-04-24 21:38] VITALS: BP 101/58; PULSE 77; RESP 20; TEMP 36.4; O2SAT 100
[2020-04-24] MEDS: iron complex forte Capsule 1 EACH PO (21:53)
[2020-04-24] MEDS: CLONazepam 0.5 mg Tablet PO (21:53)
[2020-04-24 22:54] VITALS: RESP 18
[2020-04-24] MEDS: oxyCODONE 5 mg IR Tab/Cap PO (22:54)
[2020-04-24 23:12] VITALS: BP 96/62; PULSE 82; RESP 19; TEMP 36.9; O2SAT 100
[2020-04-25] VITALS (20 sets, daily range): BP systolic 96–116; BP diastolic 57–79; PULSE 69–84; RESP 17–22; TEMP 36.4–37; O2SAT 92–99
[2020-04-25] MEDS: sodium chloride 0.9% (100 ml) 200 ML 75 ML (01:01)
[2020-04-25] MEDS: oxyCODONE 5 mg IR Tab/Cap PO ×2 (06:03→12:02)
[2020-04-25 06:53] LABS: Calcium 7.5 mg/dL (8.5-10.5); Parathyroid Hormone 66.6 pg/mL (15-65)
[2020-04-25 08:31] LABS: Magnesium 2.3 mg/dL (1.7-2.3)
[2020-04-25] MEDS: ipratropium-albuterol 3 mL Neb INHALATION (08:47)
[2020-04-25] MEDS: levothyroxine 100 mcg Tablet 200 MCG PO (09:12)
[2020-04-25] MEDS: pantoprazole DR 40 mg Tablet PO (09:12)
[2020-04-25] MEDS: thiamine 100 mg Tablet PO (09:12)
[2020-04-25] MEDS: folic acid 1 mg Tablet PO (09:12)
[2020-04-25] MEDS: CLONazepam 0.5 mg Tablet PO ×2 (09:14→14:00)
[2020-04-25 10:03] LABS: Hematocrit 32.4 % (37.0-47.0); Hemoglobin 9.2 g/dL (11.5-15.3)
--- NOTE | 2020-04-25 11:49 | PC.CHAP ---
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 quill layer visit [] Patient/Family/Request visit [] Outpatient visit [] Follow-up visit [] Physician referral [] Code/Alert [x] Routine visit [] Staff referral [] Actively dying [] Patient sleeping [] Family support [] [] Out of room [] Palliative care [] [] Receiving care in room [] Pre-surgical visit [] Trauma [] Long length of stay [] ICU visit [] Other: Relational/Emotional Strength [x] Patient feels connected with others/family/visitors/staff [] Distress [] Loneliness/isolation [] Abandonment Spirituality of Patient [x] Person of Angy [] Attends Holiness of their Angy [x] Believes in Prayer [] Reads Bible or Moravian materials [] There are Spiritual issues to be addressed Organizational Effectiveness Director Interventions [x] Prayer [x] Active listening [x] Non-anxious presence [x] Spiritual/emotional support [] Crisis/trauma care [] Spiritual counseling [] Bereavement support [] Provided bereavement packet [] Provided Bible/devotional materials [] Provided toy/stuffed animal, coloring book to patient or family member [] Provided Communion [] Anointing/[place] [] Salvation [] Completed spiritual assessment [] Other: Impact on Illness or Injury [] Angry [] Fearful [] Anxious [] Often cries [] Exhaustion [] Unable to work [] Unable to attend taoism [] Unable to walk/stand [] Unable to read [] Unable to drive [] Unable to eat/drink [] Unable to sleep [] Unable to be with family [] Patient intubated [] Other: Summary Chaplains Elijah and Ratna Dawn prayed with patient. Time spent with patient 8 minutes.
--- NOTE | 2020-04-25 13:11 | PM.DCS ---
Discharge Providers Date of Admission: 04/24/20 20:54 Date of Discharge: April 25, 2020 Attending Provider at Admission: Magda Dennis MD Attending Provider at Discharge: Herminio Ovalle Primary Care Provider: Octaviano Sue MD Diagnoses at Discharge Discharge Diagnosis (1) Normocytic anemia, not due to blood loss: Status: Acute (2) Hypokalemia: Status: Acute (3) Splenomegaly: Status: Acute (4) Paraesophageal hernia: Status: Acute (5) Non-pitting edema: Status: Acute (6) Hypocalcemia: Status: Acute (7) GERD with esophagitis: Status: Acute (8) Pulmonary nodule, right: Status: Acute Reason for Visit Reason for Visit: fluid build up Hospital Course Hospital Course: 44-year-old lady with history of recurrent anemia due to which she follows with toe former, as well as with PICC line in place due to difficult peripheral IV access and need for recurrent transfusions, with arrangements underway for port a cath placement, was admitted for assessment management of symptomatic anemia, as well as exacerbation of diastolic CHF, with noted lower extremity edema, and other peripheral swelling reported by the patient. She received. Received transfusion, with good response and hemoglobin. She was treated with IV dose of Lasix. It appears she had run out of Lasix at home, and so I refill is being given to her for this, as well as for potassium. She is encouraged to maintain contact with her primary care provider's office for refills on her pain medications which she requests. She is encouraged to continue follow-up with her toe former and PCP in office, with rechecking of blood counts during the visit. She is encouraged to completely discontinue alcohol intake, due to concern of worsening anemia, possible bone marrow suppression, possible effects on liver, risk of progression to cirrhosis, worsening splenomegaly, and other complications. She verbalized understanding and states that she will discontinue any further alcohol intake. Hepatitis C appears was never treated, and so may benefit from additional assessment and treatment if this is possible. She is encouraged to continue follow-up with pulmonology, general surgery, and thoracic surgery as previously recommended for follow-up on chronic dyspnea, hiatal hernia, pulmonary nodule. Follow-up as previously with results of PFT and PET scan. As well as continue arrangements for Port-A-Cath and removal of PICC line. We discussed risks of infection. At this time there is been no sign of infection at the insertion site, she states that she has been maintaining PICC line in clean condition at home. She states that all of her questions have been answered to her satisfaction. Physical Exam Const: COMMON NORMALS: no acute distress, patient oriented x3 and alert NUTRITIONAL APPEARANCE: overweight ORIENTATION/CONSCIOUSNESS: Yes awake OTHER: She is still feeling some swelling going on, but we will continue diuresis at home. Otherwise denies any other complaints. HENMT: COMMON NORMALS: oropharynx normal Neck/C-Spine: COMMON NORMALS: no JVD Resp: COMMON NORMALS: normal respiratory effort and clear to auscultation bilaterally AUSCULTATION: clear to auscultation bilaterally Cardio: COMMON NORMALS: no JVD, regular rhythm, S1 normal heart sound present, S2 normal heart sound present and No murmurs present (Cardio) RHYTHM: regular rhythm HEART SOUNDS: S1 normal heart sound present and S2 normal heart sound present GI: COMMON NORMALS: Normal to inspection, nondistended, normoactive bowel sounds present, Soft to palpation and non-tender PALPATION: Yes Soft to palpation Extremity: COMMON NORMALS: no joint enlargement OTHER: Trace LE edema Neuro: COMMON NORMALS: patient oriented x3 and moves all extremities SENSORIUM/ORIENTATION: Yes alert Skin: COMMON NORMALS: no rashes or lesions noted GENERAL SKIN EXAM: no rashes or lesions noted Discharge Data Data Completed and Pending: Completed Studies During Hospitalization Category Date Time Status XR chest 1V nichole ble [id number] Stat Exams 04/24/20 17:12 Completed Labs from last 24 hours 04/25/20 04/24/20 04/24/20 09:32 20:50 20:50 WBC RBC Hgb 9.2 L Hct 32.4 L MCV MCH MCHC RDW Plt Count MPV Neut % (Auto) Lymph % (Auto) [place] % (Auto) Eos % (Auto) Baso % (Auto) Neut # (Auto) Lymph # (Auto) [place] # (Auto) Eos # (Auto) Baso # (Auto) Nucleated RBC % (a uto) Nucleated RBCs # Sodium Potassium Chloride Carbon Dioxide Anion Gap BUN Creatinine GFR Calculation Glucose Calculated Osmolal ity Lactic Acid Calcium Magnesium Total Bilirubin AST ALT Alkaline Phosphata se Troponin T Baselin e Troponin T 120 Min [place] 6.00 Delta Troponin T 0 NT-Pro-B Natriuret Pep Total Protein Albumin Globulin Lipase Procalcitonin PTH Intact Calcium (PTH Intac t) Urine Color Urine Appearance Urine pH Ur Specific Gravit y Urine Protein Urine Glucose (UA) Urine Ketones Urine Blood Urine Nitrate Urine Bilirubin Urine Urobilinogen Ur Leukocyte Maryellen ase Urine RBC Urine WBC Ur Squamous Epith Cells Amorphous Sediment Urine Bacteria Hyaline Casts Urine Mucus Blood Type A Positive Rho(D) Type Positive Antibody Screen Negative Crossmatch See Detail 04/24/20 04/24/20 04/24/20 19:11 19:11 19:11 WBC RBC Hgb Hct MCV MCH MCHC RDW Plt Count MPV Neut % (Auto) Lymph % (Auto) [place] % (Auto) Eos % (Auto) Baso % (Auto) Neut # (Auto) Lymph # (Auto) [place] # (Auto) Eos # (Auto) Baso # (Auto) Nucleated RBC % (a uto) Nucleated RBCs # Sodium Potassium Chloride Carbon Dioxide Anion Gap BUN Creatinine GFR Calculation Glucose Calculated Osmolal ity Lactic Acid Calcium Magnesium 2.3 Total Bilirubin AST ALT Alkaline Phosphata se Troponin T Baselin e 6 Troponin T 120 Min [place] Delta Troponin T NT-Pro-B Natriuret Pep Total Protein Albumin Globulin Lipase Procalcitonin PTH Intact 66.6 H Calcium (PTH Intac t) 7.5 L Urine Color Urine Appearance Urine pH Ur Specific Gravit y Urine Protein Urine Glucose (UA) Urine Ketones Urine Blood Urine Nitrate Urine Bilirubin Urine Urobilinogen Ur Leukocyte Maryellen ase Urine RBC Urine WBC Ur Squamous Epith Cells Amorphous Sediment Urine Bacteria Hyaline Casts Urine Mucus Blood Type Rho(D) Type Antibody Screen Crossmatch 04/24/20 04/24/20 04/24/20 19:11 19:11 19:11 WBC 8.1 RBC 2.74 L Hgb 7.1 L Hct 25.5 L MCV 93.1 MCH 25.9 L MCHC 27.8 L RDW 19.2 H Plt Count 173 MPV 10.5 H Neut % (Auto) 82.8 Lymph % (Auto) 8.7 [place] % (Auto) 5.6 Eos % (Auto) 1.9 Baso % (Auto) 0.6 Neut # (Auto) 6.71 Lymph # (Auto) 0.7 L [place] # (Auto) 0.5 Eos # (Auto) 0.2 Baso # (Auto) 0.1 Nucleated RBC % (a uto) 0 Nucleated RBCs # 0.0 Sodium 130 L Potassium 3.2 L Chloride 98 Carbon Dioxide 22 Anion Gap 13.2 BUN 12 Creatinine 1.0 H GFR Calculation 60.0 L Glucose 89 Calculated Osmolal ity 266 L Lactic Acid 1.3 Calcium 7.1 L Magnesium Total Bilirubin 0.5 AST 8 ALT 6 Alkaline Phosphata se 129 H Troponin T Baselin e Troponin T 120 Min [place] Delta Troponin T NT-Pro-B Natriuret Pep 1601 H Total Protein 6.4 L Albumin 3.2 L Globulin 3.2 Lipase 14 Procalcitonin 8.65 H PTH Intact Calcium (PTH Intac t) Urine Color Urine Appearance Urine pH Ur Specific Gravit y Urine Protein Urine Glucose (UA) Urine Ketones Urine Blood Urine Nitrate Urine Bilirubin Urine Urobilinogen Ur Leukocyte Maryellen ase Urine RBC Urine WBC Ur Squamous Epith Cells Amorphous Sediment Urine Bacteria Hyaline Casts Urine Mucus Blood Type Rho(D) Type Antibody Screen Crossmatch 04/24/20 16:58 WBC RBC Hgb Hct MCV MCH MCHC RDW Plt Count MPV Neut % (Auto) Lymph % (Auto) [place] % (Auto) Eos % (Auto) Baso % (Auto) Neut # (Auto) Lymph # (Auto) [place] # (Auto) Eos # (Auto) Baso # (Auto) Nucleated RBC % (a uto) Nucleated RBCs # Sodium Potassium Chloride Carbon Dioxide Anion Gap BUN Creatinine GFR Calculation Glucose Calculated Osmolal ity Lactic Acid Calcium Magnesium Total Bilirubin AST ALT Alkaline Phosphata se Troponin T Baselin e Troponin T 120 Min [place] Delta Troponin T NT-Pro-B Natriuret Pep Total Protein Albumin Globulin Lipase Procalcitonin PTH Intact Calcium (PTH Intac t) Urine Color Yellow Urine Appearance Sl hazy Urine pH 5 Ur Specific Gravit y 1.020 Urine Protein Neg Urine Glucose (UA) Norm Urine Ketones Negative Urine Blood Neg Urine Nitrate Negative Urine Bilirubin Neg Urine Urobilinogen 1 H Ur Leukocyte Maryellen ase Negative Urine RBC None Urine WBC 0-4 H Ur Squamous Epith Cells 10-15 H Amorphous Sediment Not Reportable Urine Bacteria 2+ H Hyaline Casts 15-25 H Urine Mucus 2+ Blood Type Rho(D) Type Antibody Screen Crossmatch Vitals: Last Vital Signs Temp 97.7 F 04/25/20 11:42 Pulse 76 04/25/20 11:42 Resp 18 04/25/20 12:02 BP 101/61 04/25/20 11:42 Pulse Ox 99 04/25/20 11:42 Discharge Plan Discharge Patient Disposition: Home Condition: Stable Prescriptions: Continued levothyroxine 200 mcg capsule 200 mcg PO DAILY RF: 0 liothyronine [Cytomel] 25 mcg tablet 25 mcg PO DAILY RF: 0 epinephrine [EpiPen 2-Tim] 0.3 mg/0.3 mL auto-injector 0.3 mg IM ONCE RF: 0 promethazine 25 mg suppository 25 mg NM Q6H PRN (Reason: if unable to take PO zofran ) RF: 0 ondansetron HCl 4 mg tablet 4 mg PO Q6H PRN (Reason: Nausea) RF: 0 clonazepam 0.5 mg tablet 0.5 mg PO TID RF: 0 levetiracetam [Keppra] 500 mg tablet 1,000 mg PO BID RF: 0 Incruse Ellipta 62.5 mcg/actuation blister with device 1 inh INHALATION DAILY Qty: 30 RF: 3 pantoprazole 40 mg Tablet,Delayed Release (Dr/Ec) 40 mg PO BID Qty: 60 RF: 0 oxycodone 5 mg tablet 5 mg PO Q6H PRN (Reason: pain) Qty: 10 RF: 0 albuterol sulfate 90 mcg/actuation HFA aerosol inhaler 2 inh INHALATION Q4H PRN (Reason: shortness of breath or wheezing) Qty: 6.7 RF: 0 albuterol sulfate 0.63 mg/3 mL solution for nebulization 0.63 mg INHALATION TID 30 Days Qty: 270 RF: 0 Spiriva Respimat 2.5 mcg/actuation mist 2 puff INHALATION QAM 90 Days Qty: 4 RF: 2 furosemide 40 mg Tablet 40 mg PO BID Qty: 60 RF: 0 Klor-Con M20 20 mEq tablet,ER particles/crystals 20 meq PO BID Qty: 30 RF: 0 Discharge Orders: Discharge Order (Routine); Ordered 04/25/20 Ordered By: Herminio Ovalle Referrals: Octaviano Sue MD [Primary Care Provider] - 05/02/20 2:45 pm ( ) Jacek Ventura MD [Physician] - Arvind Cr MD [Hospitalist] - 1 week (Recurrent anemia, arrangements for portacath) Kelsy Escalera MD [Physician] - Discharge Diet: Usual diet and As Directed Discharge Activity: Increase activity as tolerated Patient Instructions: Anemia, Hiatal Hernia (DC), Hypokalemia (DC) Activity Restrictions/Additional Instructions: Please abstain from any alcohol. Please follow up with your toe former and PCP with regards to continued work-up of recurrent anemia, arrangements to discontinue PICC line and port placement. Please have your primary care provider and/or Dr. Cr follow-up your hemoglobin level for anemia in office, whichever sees you first. Continue follow-up as previously with Dr. Escalera and Candace with results of pulmonary function testing and CAT scan results regarding a lung nodule. Continue follow-up with general surgery as recommended by pulmonology for hiatal hernia. If you run out of medications, please contact your primary care physician's office so that they may supply you with a refill. Similarly if you notice your having worsening swelling, gaining weight, please contact your primary care physician's office to discuss strategies for dealing with edema. If you experience any shortness of breath, dizziness, chest pain, or other abnormal symptoms, please seek medical attention without delay. Discharge Attestations Time Spent in Discharge Care*: greater than 30 min Quality Metrics Clinical Quality Measures During this hospital stay, did patient experience: None Coding Level of Care Code Acute Restaurant Operations Manager for Chg Fwd Diagnoses Normocytic anemia, not due to blood loss D64.9 Hypokalemia E87.6 Splenomegaly R16.1 Paraesophageal hernia K44.9 Non-pitting edema R60.9 Hypocalcemia E83.51 GERD with esophagitis K21.0 Pulmonary nodule, right R91.1
--- NOTE | 2020-04-25 15:45 | PC.RESP ---
PULMONARY REHAB INFORMATION SENT TO PATIENT.
== END 2020-04-25 14:12 | disposition home or self-care (01) ==
LOC: ER 19:39 → MEDSURG 22:50
PROVIDERS: Emergency Medicine; Admitting Provider Internal Medicine; Emergency Provider Emergency Medicine; PCP Internal Medicine; Visit Provider Internal Medicine
DX: D64.9 Anemia, unspecified (principal); E87.6 Hypokalemia; R16.1 Splenomegaly, not elsewhere classified; K44.9 Diaphragmatic hernia without obstruction or gangrene; R60.0 Localized edema; E83.51 Hypocalcemia; K21.0 Gastro-esophageal reflux disease with esophagitis; R91.1 Solitary pulmonary nodule; N18.3 Chronic kidney disease, stage 3 (moderate); J44.9 Chronic obstructive pulmonary disease, unspecified; I50.30 Unspecified diastolic (congestive) heart failure; E03.9 Hypothyroidism, unspecified; Z99.81 Dependence on supplemental oxygen; E66.01 Morbid (severe) obesity due to excess calories; Z68.41 Body mass index [BMI] 40.0-44.9, adult; F10.10 Alcohol abuse, uncomplicated; B19.20 Unspecified viral hepatitis C without hepatic coma; J96.11 Chronic respiratory failure with hypoxia; R07.89 Other chest pain
CPT/HCPCS: 12345; 36430; 71045; 80053; 81001; 82310; 83605; 83690; 83735; 83880; 83970; 84145; 84484; 85014; 85018; 85025; 86850; 86900; 86920; 93005; 94640; 96365; 96374; 96375; 99282; 99285; G0378; J0610; J1642; J1940; J2405; J3010; P9016

== ENCOUNTER 2020-04-27 18:06 | Emergency (ER) | payer MEDICARE, MEDICAID, SELFPAY ==
[2020-04-27 18:40] VITALS: BP 144/69; PULSE 77; RESP 14; TEMP 36.3; O2SAT 94; BMI 39.3
[2020-04-27 20:43] VITALS: BP 132/86; PULSE 82; RESP 16; TEMP 37; O2SAT 93
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
[2020-04-27 21:48] LABS: Basophils % 0.4 %; Eosinophils # 0.2 10^3/uL (0.0-0.8); Eosinophils % 3.3 %; Hematocrit 32.9 % (37.0-47.0); Hemoglobin 9.8 g/dL (11.5-15.3); Lymphocytes % 19.5 %; Mean Corpuscular HGB Conc 29.8 g/dL (30.0-36.0); Mean Corpuscular Hemoglobin 26.3 pg (28.0-34.0); Mean Corpuscular Volume 88.2 fL (81-99); Mean Platelet Volume 11.3 fL (7.4-10.4); Monocytes # 0.4 10^3/uL (0.2-0.9); Monocytes % 8.3 %; Neutrophils # 3.51 10^3/uL (1.8-7.7); Neutrophils % 67.9 %; Nucleated Red Blood Cells % 0 %; Platelet Count 132 10^3/cmm (130-400); Red Blood Count 3.73 10^6/uL (4.1-5.3); Red Cell Distribution Width 18.2 % (12.1-15.1); White Blood Count 5.2 10^3/uL (4.0-10.0)
[2020-04-27] MEDS: diphenhydrAMINE 25 mg Capsule PO (21:51)
[2020-04-27] MEDS: cefTRIAXone 1,000 mg SDV 1000 MG IM (21:51)
[2020-04-27] MEDS: lidocaine 1% INJ 20 mL 2.1 ML IM (21:51)
[2020-04-27 22:20] LABS: Slide Review Slide Review Perform
[2020-04-27 22:58] VITALS: RESP 18; O2SAT 95
[2020-04-27] MEDS: oxyCODONE 5 mg IR Tab/Cap PO (22:58)
[2020-04-27 23:02] VITALS: PULSE 85; RESP 18; O2SAT 95
== END 2020-04-27 23:03 | disposition home or self-care (01) ==
PROVIDERS: Emergency Provider Physician Assistant; PCP Internal Medicine
DX: Z46.89 Encounter for fitting and adjustment of other specified devices (principal); L03.113 Cellulitis of right upper limb; N18.3 Chronic kidney disease, stage 3 (moderate); J44.9 Chronic obstructive pulmonary disease, unspecified; Z86.19 Personal history of other infectious and parasitic diseases; I50.30 Unspecified diastolic (congestive) heart failure; Z77.22 Contact with and (suspected) exposure to environmental tobacco smoke (acute) (chronic)
CPT/HCPCS: 12345; 36415; 85025; 87040; 87070; 87075; 87077; 87186; 87205; 96372; 99281; 99283; J0696

== ENCOUNTER 2020-05-06 23:54 | Emergency (ER) | payer MEDICARE, MEDICAID, SELFPAY ==
[2020-05-07] VITALS (8 sets, daily range): BP systolic 118–152; BP diastolic 91–104; PULSE 99–116; RESP 18–23; TEMP 36; O2SAT 95–98; BMI 37.9
[2020-05-07 02:29] LABS: Add Urine Microscopic? NO
[2020-05-07 02:32] LABS: Urine Appearance Clear (CLEAR); Urine Color Yellow (Yellow); pH Urine 5 (5-7)
[2020-05-07 02:33] LABS: Bilirubin Urine 1+ (NEGATIVE); Blood Urine Neg (Negative); Glucose Urine UA Norm (Normal); Ketones Urine 1+ (Negative); Leukocyte Esterase Urine Negative (Negative); Nitrate Urine Negative (Negative); Protein Urine Neg (Negative); Urobilinogen Urine 1 mg/dL (Negative)
[2020-05-07] MEDS: ondansetron 2 mg/ML SDV 2 mL 4 MG IVP ×2 (02:52→04:18)
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
[2020-05-07 03:38] LABS: Basophils # 0.1 10^3/uL (0.0-0.1); Basophils % 0.9 %; Eosinophils # 0.1 10^3/uL (0.0-0.8); Eosinophils % 1.3 %; Hematocrit 36.1 % (37.0-47.0); Hemoglobin 10.6 g/dL (11.5-15.3); Lymphocytes # 0.9 10^3/uL (0.8-4.8); Lymphocytes % 8.9 %; Mean Corpuscular HGB Conc 29.4 g/dL (30.0-36.0); Mean Corpuscular Hemoglobin 25.5 pg (28.0-34.0); Mean Corpuscular Volume 86.8 fL (81-99); Mean Platelet Volume 10.7 fL (7.4-10.4); Monocytes # 0.5 10^3/uL (0.2-0.9); Monocytes % 4.4 %; Neutrophils # 8.88 10^3/uL (1.8-7.7); Neutrophils % 83.9 %; Nucleated Red Blood Cells % 0 %; Platelet Count 270 10^3/cmm (130-400); Red Blood Count 4.16 10^6/uL (4.1-5.3); Red Cell Distribution Width 17.5 % (12.1-15.1); White Blood Count 10.6 10^3/uL (4.0-10.0)
[2020-05-07 03:40] LABS: Albumin Level 3.8 g/dL (3.5-5.2); Alkaline Phosphatase 221 IU/L (35-105); Blood Urea Nitrogen 9 mg/dL (6-20); Calcium 8.5 mg/dL (8.5-10.5); Carbon Dioxide 24 mmol/L (22-29); Chloride 99 mmol/L (98-107); Globulin 4.2 g/dL (1.3-4.6); Glomerular Filtration Rate 48.6 mL/min (90-130); Glucose 124 mg/dL (65-115); Lipase 45 U/L (13-60); NT Pro B Type Natriuretic Pept 147 pg/mL (0-125); Osmolality Calculated 281 mOsm/kg (285-295); Sodium 137 mmol/L (136-145); Total Bilirubin 0.8 mg/dL (0.15-1.2)
[2020-05-07 03:41] LABS: Alanine Aminotransferase 11 U/L (0-33); Anion Gap 18.4 (5-19); Aspartate Amino Transferase 17 U/L (0-32); Potassium 4.4 mmol/L (3.5-5.1)
[2020-05-07 03:57] LABS: Slide Review Slide Review Perform
[2020-05-07] MEDS: fentaNYL 50 mcg/mL INJ 2mL 100 MCG IVP (04:17)
[2020-05-07] MEDS: ipratropium-albuterol 3 mL Neb INHALATION (04:17)
--- NOTE | 2020-05-07 04:26 | XRR_ITS ---
PROCEDURE INFORMATION: Exam: XR Chest, 1 View Exam date and time: 05/07/2020 4:46 AM Age: 44 years old Clinical indication: Shortness of breath; Additional info: SOB TECHNIQUE: Imaging protocol: XR of the chest Views: 1 view. COMPARISON: CR XR chest 1V portable [id number] 04/24/2020 5:18 PM FINDINGS: Lungs: Strandy and hazy opacities are seen in the left lung base compatible with left basilar atelectasis versus pneumonia. Pleural space: Unremarkable. No pleural effusion. No pneumothorax. Heart/Mediastinum: Unremarkable. No cardiomegaly. Bones/joints: Unremarkable. XR/XR chest 1V [id number] IMPRESSION: Strandy and hazy opacities in the left lung base compatible with left basilar atelectasis versus pneumonia.
[2020-05-07 04:37] LABS: C Reactive Protein 13.4 mg/L (0.0-4.9)
== END 2020-05-07 04:56 | disposition home or self-care (01) ==
PROVIDERS: Emergency Provider Emergency Medicine; PCP Internal Medicine
DX: R11.2 Nausea with vomiting, unspecified (principal); N18.3 Chronic kidney disease, stage 3 (moderate); J44.9 Chronic obstructive pulmonary disease, unspecified; I50.30 Unspecified diastolic (congestive) heart failure; Z86.19 Personal history of other infectious and parasitic diseases; Z77.22 Contact with and (suspected) exposure to environmental tobacco smoke (acute) (chronic)
CPT/HCPCS: 12345; 36415; 71045; 80053; 81003; 83690; 83880; 85025; 86140; 94640; 96374; 96375; 99283; J2405; J3010

== ENCOUNTER 2020-05-13 20:21 | Inpatient (IN) | payer MEDICARE, MEDICAID, SELFPAY ==
[2020-05-13] VITALS (8 sets, daily range): BP systolic 102–158; BP diastolic 63–99; PULSE 110–144; RESP 16–26; TEMP 39; O2SAT 91–99; BMI 39.7
--- NOTE | 2020-05-13 20:26 | XRR_ITS ---
PROCEDURE INFORMATION: Exam: XR Chest, 1 View Exam date and time: 05/13/2020 9:25 PM Age: 44 years old Clinical indication: Dyspnea TECHNIQUE: Imaging protocol: XR of the chest Views: 1 view. COMPARISON: CR XR chest 1V [id number] 05/07/2020 4:37 AM FINDINGS: Lungs: Left lower lobe atelectasis versus infiltrate. Pleural space: Unremarkable. No pleural effusion. No pneumothorax. Heart/Mediastinum: Cardiomegaly. Bones/joints: Unremarkable. XR/XR chest 1V portable [id number] IMPRESSION: 1. Cardiomegaly. 2. Left lower lobe atelectasis versus infiltrate.
--- NOTE | 2020-05-13 20:27 | ECG_ITS ---
[facility] Test Date: 2020-05-13 Pat Name: Delores Mckeon Department: Room: Gender: Female Rn Surgical Pcu: : 1975 Requested By: Filomena Valentine Order Number: [id number] Garland MD: Magda Bennett M.D. Measurements Intervals [place] Rate: 131 P: 12 [place]: 149 QRS: 5 QRSD: 77 T: 30 QT: 333 QTc: 492 Interpretive Statements SINUS TACHYCARDIA LOW QRS VOLTAGE IN PRECORDIAL LEADS [QRS DEFLECTION < 1.0 mV IN CHEST LEADS] NONSPECIFIC T-WAVE ABNORMALITY ABNORMAL RHYTHM ECG Compared to ECG 04/24/2020 20:09:59 T-wave abnormality now present Sinus rhythm no longer present ST (T wave) deviation no longer present Electronically Signed On 05-14-2020 16:20:39 CDT by Magda Bennett M.D. [email or web address]
[2020-05-13] MEDS: albuterol 8 gm MDI 6 PUFF INHALATION (21:10)
[2020-05-13 21:19] LABS: ABG PCO2 41.9 mmHg (35-45); ABG PH Result 7.37 (7.35-7.45); Arterial Blood Gas Hematocrit 28.2 % (37-47); Base Excess ABG -1.4 mmol/L (-2.0-2.0); Blood Gas Allen Test Pos; Blood Gas Sample Site Brachial, left; Blood Gas Sample Type Arterial; Carboxyhemoglobin 1.5 %THgb (0.4-20.1); HCO3 ABG 23.9 mmol/L (22-26); HGB O2 Sat 95.6 % (95-100); Ionized Calcium Level - ABG 1.1 mmol/L (1.1-1.4); Methemoglobin 0.7 % (0.4-1.5); Oxygen Device NC; Oxygen Saturation ABG 97.8; PO2 ABG 83.6 mmHg (80.0-100.0); Total Hemoglobin 9.2 g/dL (12-16)
[2020-05-13 21:22] LABS: Basophils % 0.3 %; Eosinophils # 0.1 10^3/uL (0.0-0.8); Eosinophils % 0.9 %; Hematocrit 31.4 % (37.0-47.0); Hemoglobin 8.9 g/dL (11.5-15.3); Lymphocytes # 0.2 10^3/uL (0.8-4.8); Lymphocytes % 1.8 %; Mean Corpuscular HGB Conc 28.3 g/dL (30.0-36.0); Mean Corpuscular Hemoglobin 25.2 pg (28.0-34.0); Mean Platelet Volume 10.6 fL (7.4-10.4); Monocytes # 0.1 10^3/uL (0.2-0.9); Monocytes % 0.8 %; Neutrophils # 10.08 10^3/uL (1.8-7.7); Neutrophils % 95.9 %; Nucleated Red Blood Cells % 0.3 %; Platelet Count 212 10^3/cmm (130-400); Red Blood Count 3.53 10^6/uL (4.1-5.3); Red Cell Distribution Width 19.2 % (12.1-15.1); White Blood Count 10.5 10^3/uL (4.0-10.0)
[2020-05-13] MEDS: LORazepam 2 mg/mL INJ 1 mL 0.5 MG IVP (21:30)
[2020-05-13] MEDS: ibuprofen 200 mg Tablet 400 MG PO (21:30)
[2020-05-13] MEDS: sodium chloride 0.9% 1,000 ML 100 ML IV (21:31)
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
[2020-05-13 21:41] LABS: Slide Review Slide Review Perform
[2020-05-13 21:51] LABS: Troponin(5th) Baseline 6 ng/L (0-10)
[2020-05-13 22:00] LABS: Alanine Aminotransferase 10 U/L (0-33); Albumin Level 3.6 g/dL (3.5-5.2); Alkaline Phosphatase 177 IU/L (35-105); Aspartate Amino Transferase 14 U/L (0-32); Blood Urea Nitrogen 10 mg/dL (6-20); Calcium 7.6 mg/dL (8.5-10.5); Carbon Dioxide 24 mmol/L (22-29); Chloride 97 mmol/L (98-107); Globulin 3.4 g/dL (1.3-4.6); Glomerular Filtration Rate 44.3 mL/min (90-130); Glucose 165 mg/dL (65-115); Magnesium 1.8 mg/dL (1.7-2.3); NT Pro B Type Natriuretic Pept 196 pg/mL (0-125); Osmolality Calculated 274 mOsm/kg (285-295); Sodium 132 mmol/L (136-145); Total Bilirubin 1.1 mg/dL (0.15-1.2)
[2020-05-13 22:04] LABS: Anion Gap 15.4 (5-19); Potassium 4.4 mmol/L (3.5-5.1)
[2020-05-13 22:05] LABS: SARS Covid-2 Antigen Negative (Negative)
--- NOTE | 2020-05-13 22:27 | ECG_ITS ---
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 Measurements Intervals [place] Rate: 116 P: 25 NC: 148 QRS: 22 QRSD: 82 T: 60 QT: 341 QTc: 476 Interpretive Statements SINUS TACHYCARDIA NONSPECIFIC T-WAVE ABNORMALITY ABNORMAL RHYTHM ECG Compared to ECG 05/13/2020 21:20:32 No significant changes Electronically Signed On 05-14-2020 16:22:12 CDT by Magda Bennett M.D. [id number]
[2020-05-13] MEDS: ipratropium 0.5 mg/2.5 mL Neb 1.5 MG INHALATION (22:48)
[2020-05-13] MEDS: morphine 4 mg/mL SDV 1 mL IVP (23:08)
[2020-05-13 23:21] LABS: Alcohol Level < 10 mg/dL (0-10)
[2020-05-13 23:56] LABS: Troponin 5 2HR Delta 0 ABS# (0-10)
[2020-05-14] VITALS (44 sets, daily range): BP systolic 86–145; BP diastolic 57–102; PULSE 64–109; RESP 14–29; TEMP 36.7–37.1; O2SAT 88–98; BMI 40.1
[2020-05-14 00:32] LABS: Add Urine Microscopic? YES; Bacteria Urine TRACE /hpf; Bilirubin Urine 1+ (Negative); Blood Urine Neg (Negative); Glucose Urine UA Norm (Normal); Ketones Urine 1+ (Negative); Leukocyte Esterase Urine Trace (Negative); Mucus Urine 1+ /hpf; Nitrate Urine Negative (Negative); Protein Urine Trace (Negative); RBC Urine 0-4 /hpf (0-2); Specific Gravity, Urine 1.025 (1.005-1.030); Squamous Epithelial Cell Urine 0-4 /hpf (0-5); Urine Appearance SL Hazy (CLEAR); Urine Color Yellow (Yellow); Urobilinogen Urine 1 mg/dL (Negative); pH Urine 5 (5-7)
--- NOTE | 2020-05-14 02:27 | ECG_ITS ---
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 Measurements Intervals [place] Rate: 90 P: 20 CO: 165 QRS: -1 QRSD: 81 T: 30 QT: 382 QTc: 469 Interpretive Statements SINUS RHYTHM LOW QRS VOLTAGE IN PRECORDIAL LEADS [QRS DEFLECTION < 1.0 mV IN CHEST LEADS] Compared to ECG 05/13/2020 22:36:41 Low QRS voltage now present Sinus tachycardia no longer present T-wave abnormality no longer present Electronically Signed On 05-14-2020 16:25:53 CDT by Magda Bennett M.D. [id number]
[2020-05-14] MEDS: sodium chloride 0.9% 1,000 ML 100 ML IV (03:20)
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
[2020-05-14] MEDS: albuterol 8 gm MDI 6 PUFF INHALATION ×3 (03:55→14:32)
[2020-05-14 04:12] LABS: Troponin 5 6HR Delta 0 ng/L (0-12)
[2020-05-14] MEDS: levofloxacin-dextrose 5 % 750 MG/150 ML PREMIX 100 MG IV (04:29)
[2020-05-14] MEDS: morphine 4 mg/mL SDV 1 mL 2 MG IVP ×2 (04:31→09:55)
--- NOTE | 2020-05-14 05:16 | PC.PHAR ---
Pharmacokinetic dosing service Date: 05/14/20 Time: 514 Objective: Patient: Delores Mckeon Floor: ICU-7 Age: 44 yo Serum creatinine: 1.3 mg/dL Height: 63.0 Inches Weight (kg): 101.741 Diagnosis: Relevant medical/social history: Cultures and sensitivities: Other labs: Assessment: IBW (kg): 52.40 Dosing wt(kg): 101.741 Estimated Creatinine clearance (ml/min): 45.2 CRCL method: Cockcroft and Gault using ibw(default). Drug selected: Vancomycin Loading dose (mg): 0 Vd (liters): 91.6 (factor used: 0.9 L/kg) Derrick (hr-1): 0.042 Half life (hrs): 16.50 Recommended dose: 2000 mg Interval: 24 hrs Infusion time (hrs): 1.5 Predicted peak (mcg/mL): 33.3 Predicted trough (mcg/mL): 12.94 Total body weight is being used for vancomycin dosing. Renal function is stable [ ] /unstable [ ] Recommendations: Give Vancomycin 2000 mg q 24 hrs with an expected Cpeak of 33.3 mcg/ml and an expected Ctrough of 12.94 mcg/ml Renal dosing of other antibiotics (review renal dosing of other medications and list guidelines here): Thank you for the consult, will continue to follow. Signature: Miryam Nelson [facility]
[2020-05-14 06:45] LABS: Basophils % 0.1 %; Hematocrit 29.1 % (37.0-47.0); Hemoglobin 8.1 g/dL (11.5-15.3); Lymphocytes # 0.4 10^3/uL (0.8-4.8); Lymphocytes % 4.7 %; Mean Corpuscular HGB Conc 27.8 g/dL (30.0-36.0); Mean Corpuscular Hemoglobin 25.4 pg (28.0-34.0); Mean Corpuscular Volume 91.2 fL (81-99); Mean Platelet Volume 10.1 fL (7.4-10.4); Monocytes # 0.1 10^3/uL (0.2-0.9); Monocytes % 1.3 %; Neutrophils % 93.5 %; Nucleated Red Blood Cells % 0 %; Platelet Count 181 10^3/cmm (130-400); Red Blood Count 3.19 10^6/uL (4.1-5.3); Red Cell Distribution Width 18.9 % (12.1-15.1); White Blood Count 7.6 10^3/uL (4.0-10.0)
[2020-05-14 07:12] LABS: Anion Gap 13.9 (5-19); Blood Urea Nitrogen 10 mg/dL (6-20); Calcium 7.7 mg/dL (8.5-10.5); Carbon Dioxide 22 mmol/L (22-29); Chloride 103 mmol/L (98-107); Glomerular Filtration Rate 53.7 mL/min (90-130); Glucose 220 mg/dL (65-115); Osmolality Calculated 283 mOsm/kg (285-295); Potassium 3.9 mmol/L (3.5-5.1); Sodium 135 mmol/L (136-145)
[2020-05-14] MEDS: ondansetron 2 mg/ML SDV 2 mL 4 MG IVP ×2 (08:09→18:00)
[2020-05-14] MEDS: sucralfate 1 gm Tablet PO ×4 (08:09→20:47)
[2020-05-14] MEDS: FUROsemide 40 mg Tablet PO ×2 (09:30→15:41)
[2020-05-14] MEDS: levothyroxine 100 mcg Tablet 200 MCG PO (09:30)
[2020-05-14] MEDS: levETIRAcetam 500 mg Tablet 1000 MG PO ×2 (09:30→17:51)
[2020-05-14] MEDS: pantoprazole DR 40 mg Tablet PO (09:36)
[2020-05-14] MEDS: potassium chloride ER 10 mEq Tablet 20 MEQ PO (09:36)
--- NOTE | 2020-05-14 14:05 | PM.PN ---
Subjective Subjective: Interval history: She is feeling somewhat better this morning. Sitting up in bed watching TV, but denies that this is due to orthopnea symptoms. Denies any chest pain or pressure. Is having some dry cough. Request for her chronic pain medications to be restarted. Vitals/I&O/Wt Last Vital Signs Temp 98.7 F 05/14/20 11:00 Pulse 81 05/14/20 14:00 Resp 29 H 05/14/20 14:00 BP 124/77 05/14/20 14:00 Pulse Ox 95 05/14/20 14:00 05/13/20 05/14/20 05/14/20 22:59 06:59 14:59 Intake Total 901.667 / 901.667 360 / 360 Output Total 600 / 600 700 / 700 Balance 301.667 / 301.667 -340 / -340 Weight last 48 hrs Weight 102.92 kg Weight 101.741 kg Physical Exam Const: COMMON NORMALS: no acute distress and patient oriented x3 NUTRITIONAL APPEARANCE: obese HENMT: COMMON NORMALS: oropharynx normal Neck/C-Spine: COMMON NORMALS: no JVD Resp: COMMON NORMALS: normal respiratory effort AUSCULTATION: diminished lung sounds Cardio: COMMON NORMALS: no JVD, regular rhythm, S1 normal heart sound present, S2 normal heart sound present and No murmurs present (Cardio) RHYTHM: regular rhythm HEART SOUNDS: S1 normal heart sound present and S2 normal heart sound present GI: COMMON NORMALS: Normal to inspection, nondistended, normoactive bowel sounds present, Soft to palpation and non-tender PALPATION: Yes Soft to palpation Extremity: COMMON NORMALS: no joint enlargement GENERAL: Yes edema (Bilateral lower extremity edema below the knees) Neuro: COMMON NORMALS: patient oriented x3 and moves all extremities Skin: COMMON NORMALS: no rashes or lesions noted GENERAL SKIN EXAM: no rashes or lesions noted Data : 05/14/20 06:26 05/14/20 06:26 Micro: Microbiology 05/14/20 08:45 MRSA Culture - Final Nose 05/14/20 07:40 Bacterial Antigens - Final Urine,Voided 05/14/20 07:40 Legionella Urinary Antigen - Final Urine Catheterized 05/14/20 06:20 Blood Culture - Preliminary Blood SPECIMEN COLLECTED 05/14/20 06:26 Blood Culture - Preliminary Blood SPECIMEN COLLECTED A&P Assessment and plan (1) Respiratory failure with hypoxia: Improving. Weaned off BiPAP. Currently on 3 L nasal cannula oxygen. Diminished air entry bilaterally. Continue steroids. Continue breathing treatments. Continue antibiotics for pneumonia. Rapid COVID-19 negative. Pending PCR. May transfer out of ICU if this is possible. ERNESTINE Cosme. Sepsis appears to be improving. Fever resolved. Leukocytosis resolved. -Monitor respiratory status closely Follow blood cx, sputum cx and gram stain bacterial antigens, Legionella, MRSA negative Status: Acute Qualifiers: Chronicity: acute Qualified Code(s): J96.01 - Acute respiratory failure with hypoxia (2) Sepsis: -as noted above Status: Acute Qualifiers: Acute respiratory failure type: with hypoxia Sepsis acute organ dysfunction status: with acute organ dysfunction Sepsis type: sepsis due to unspecified organism Severe sepsis acute organ dysfunction type: acute respiratory failure Severe sepsis shock status: without septic shock Qualified Code(s): A41.9 - Sepsis, unspecified organism; R65.20 - Severe sepsis without septic shock; J96.01 - Acute respiratory failure with hypoxia (3) UTI (urinary tract infection): -f/u urine cx -on IV antibiotics Status: Acute Qualifiers: Hematuria presence: with hematuria Urinary tract infection type: site unspecified Qualified Code(s): N39.0 - Urinary tract infection, site not specified; R31.9 - Hematuria, unspecified (4) Anemia: Discussed with her hemoglobin down to 8.1. Monitor. Transfuse if falling below 7. Continue follow-up with hematology. -Has known history of anemia with intermittent transfusion dependence -Follows up with Dr. Cr -Previously had a PICC line for transfusions, PICC line got infected and was subsequently removed. Pending reevaluation for port placement -Noted anemia, closely monitor hemoglobin, anticipate need for transfusion of blood products -has had GI workup done in 01/2020 with EGD showing GERD, hiatal hernia and gastritis Status: Chronic Qualifiers: Anemia type: unspecified type Qualified Code(s): D64.9 - Anemia, unspecified (5) COPD (chronic obstructive pulmonary disease): Clinically appears to be improving. Still decreased air entry bilaterally. -Oxygen dependent at baseline -Neb treatments as needed, IV steroids -Follows up with Dr. Escalera Status: Acute Qualifiers: COPD type: COPD with acute exacerbation Qualified Code(s): J44.1 - Chronic obstructive pulmonary disease with (acute) exacerbation (6) Seizures: -Seizure precautions -Resume Keppra Status: Chronic (7) Pulmonary nodule, right: -Surveillance imaging being done by Dr. Ventura; PET scan in 12/2017 showed no abnormal activity -Pending CT scan Status: Acute Additional A&P Information -Chronic diastolic CHF with possibly mild exacerbation as notes recent lower extremity edema, although otherwise denies orthopnea. Continue Lasix. Monitor I&O, volume status. Resume oral Lasix; monitor for fluid overload particularly if need for transfusion of blood products. 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 Continue to monitor renal function, avoid nephrotoxins, renally dose meds -cardiac diet as tolerated -GI ppx with PPI -DVT ppx with SCDs; no AC due to acute anemia -Dispo: home -Code status: FULL code Attestations Medical Necessity Statement*: Continue admission for assessment of management of respiratory failure, pneumonia, COPD suspicion, acute on chronic anemia. Coding Level of Care Code Acute Audio Technician for [facility] Diagnoses Respiratory failure with hypoxia J96.01 Chronicity: acute Sepsis A41.9; R65.20; J96.01 Acute respiratory failure type: with hypoxia Sepsis acute organ dysfunction status: with acute organ dysfunction Sepsis type: sepsis due to unspecified organism Severe sepsis acute organ dysfunction type: acute respiratory failure Severe sepsis shock status: without septic shock UTI (urinary tract infection) N39.0; R31.9 Hematuria presence: with hematuria Urinary tract infection type: site unspecified Anemia D64.9 Anemia type: unspecified type COPD (chronic obstructive pulmonary disease) J44.1 COPD type: COPD with acute exacerbation Seizures R56.9 Pulmonary nodule, right R91.1
[2020-05-14] MEDS: oxyCODONE 5 mg IR Tab/Cap PO ×2 (14:24→20:47)
[2020-05-14] MEDS: CLONazepam 0.5 mg Tablet PO ×2 (14:24→20:47)
[2020-05-14] MEDS: ibuprofen 200 mg Tablet 400 MG PO (17:51)
[2020-05-15] VITALS (11 sets, daily range): BP systolic 129–149; BP diastolic 73–91; PULSE 66–102; RESP 16–26; TEMP 36.4–36.6; O2SAT 92–97
[2020-05-15] MEDS: levofloxacin-dextrose 5 % 750 MG/150 ML PREMIX 100 MG IV (03:00)
[2020-05-15] MEDS: oxyCODONE 5 mg IR Tab/Cap PO ×3 (05:32→17:44)
[2020-05-15] MEDS: sucralfate 1 gm Tablet PO ×4 (06:03→21:24)
[2020-05-15] MEDS: albuterol 8 gm MDI 6 PUFF INHALATION (08:28)
[2020-05-15] MEDS: CLONazepam 0.5 mg Tablet PO ×3 (08:31→21:25)
[2020-05-15] MEDS: levothyroxine 100 mcg Tablet 200 MCG PO (08:31)
[2020-05-15] MEDS: levETIRAcetam 500 mg Tablet 1000 MG PO ×2 (08:31→17:02)
[2020-05-15] MEDS: potassium chloride ER 10 mEq Tablet 20 MEQ PO (08:31)
[2020-05-15] MEDS: FUROsemide 40 mg Tablet PO ×2 (08:31→16:59)
[2020-05-15] MEDS: pantoprazole DR 40 mg Tablet PO (08:32)
[2020-05-15] MEDS: guaiFENesin-dextromethorphan UDC 10 mL PO (14:08)
[2020-05-15] MEDS: ondansetron 2 mg/ML SDV 2 mL 4 MG IVP (14:08)
--- NOTE | 2020-05-15 14:19 | PC.NURSE ---
Patient is up in her room changing the sheets on her bed. Patient is not wearing her oxygen. Patient is 94% on room air. Patient states, He is he going to do anything different about my pain? Updated the patient that the doctor added the cough syrup and he wants to see if it helps. Patient verbalized understanding.
[2020-05-15 14:39] LABS: Coronavirus Lab Test PTC Negative
[2020-05-15 15:51] LABS: Basophils % 0.2 %; Hemoglobin 7.8 g/dL (11.5-15.3); Lymphocytes # 0.3 10^3/uL (0.8-4.8); Lymphocytes % 2.8 %; Mean Corpuscular HGB Conc 27.9 g/dL (30.0-36.0); Mean Corpuscular Hemoglobin 25.2 pg (28.0-34.0); Mean Corpuscular Volume 90.3 fL (81-99); Mean Platelet Volume 10.2 fL (7.4-10.4); Monocytes # 0.3 10^3/uL (0.2-0.9); Monocytes % 2.4 %; Neutrophils # 10.64 10^3/uL (1.8-7.7); Neutrophils % 94.1 %; Nucleated Red Blood Cells % 0 %; Platelet Count 220 10^3/cmm (130-400); Red Cell Distribution Width 18.6 % (12.1-15.1); White Blood Count 11.3 10^3/uL (4.0-10.0)
[2020-05-15 16:11] LABS: Alanine Aminotransferase 7 U/L (0-33); Albumin Level 3.2 g/dL (3.5-5.2); Alkaline Phosphatase 117 IU/L (35-105); Anion Gap 15.2 (5-19); Aspartate Amino Transferase 6 U/L (0-32); Blood Urea Nitrogen 13 mg/dL (6-20); Calcium 7.6 mg/dL (8.5-10.5); Carbon Dioxide 23 mmol/L (22-29); Chloride 102 mmol/L (98-107); Globulin 3.1 g/dL (1.3-4.6); Glomerular Filtration Rate 53.7 mL/min (90-130); Glucose 244 mg/dL (65-115); Osmolality Calculated 286 mOsm/kg (285-295); Potassium 4.2 mmol/L (3.5-5.1); Sodium 136 mmol/L (136-145); Total Bilirubin 0.3 mg/dL (0.15-1.2); Total Protein 6.3 g/dL (6.6-8.7)
[2020-05-15 16:22] LABS: Thyroid Stimulating Hormone 18.28 uIU/mL (0.27-4.20)
--- NOTE | 2020-05-15 18:09 | PC.NURSE ---
End of shift report Patient is COVIID negative. Patient was up walking around in her room without her oxygen and was stating 94% on room air. Patient has vomited 1x today and has since put her oxygen back on and states that she is feeling short of breath at this time. [id number] Dr. Dhaliwal at bedside.
--- NOTE | 2020-05-15 18:58 | PC.NURSE ---
Report to Eveline BARRETT
--- NOTE | 2020-05-15 19:53 | P.PN_ITS ---
Subjective Subjective: Interval history: Subjectively she is saying she is actually feeling somewhat better. Still having pleuritic pain, and asking for stronger medication than oxycodone. Intermittent nonproductive cough. Denies persistent/resting chest pain. Vitals/I&O/Wt Last Vital Signs Temp 97.8 F 05/15/20 15:11 Pulse 102 H 05/15/20 15:11 Resp 18 05/15/20 17:44 BP 143/73 05/15/20 15:11 Pulse Ox 93 05/15/20 17:44 05/15/20 05/15/20 05/15/20 06:59 14:59 22:59 Intake Total 150 / 1850 260 / 260 200 / 460 Output Total 400 / 400 450 / 850 Balance 150 / 1150 -140 / -140 -250 / -390 Weight last 48 hrs Weight 107.218 kg Weight 102.92 kg Weight 101.741 kg Physical Exam Const: COMMON NORMALS: no acute distress and patient oriented x3 NUTRITIONAL APPEARANCE: obese HENMT: COMMON NORMALS: oropharynx normal Neck/C-Spine: COMMON NORMALS: no JVD Resp: COMMON NORMALS: normal respiratory effort AUSCULTATION: diminished lung sounds (Improved air entry today.) Cardio: COMMON NORMALS: no JVD, regular rhythm, S1 normal heart sound present, S2 normal heart sound present and No murmurs present (Cardio) RHYTHM: regular rhythm HEART SOUNDS: S1 normal heart sound present and S2 normal heart sound present GI: COMMON NORMALS: Normal to inspection, nondistended, normoactive bowel sounds present, Soft to palpation and non-tender PALPATION: Yes Soft to palpation Extremity: COMMON NORMALS: no joint enlargement GENERAL: Yes edema (Bilateral lower extremity edema below the knees) Neuro: COMMON NORMALS: patient oriented x3 and moves all extremities Skin: COMMON NORMALS: no rashes or lesions noted GENERAL SKIN EXAM: no rashes or lesions noted Data : 05/15/20 15:34 05/15/20 15:34 Micro: Microbiology 05/14/20 06:26 Blood Culture - Preliminary Blood Gram positive cocci 05/15/20 15:39 Blood Culture - Preliminary Blood SPECIMEN COLLECTED 05/15/20 15:34 Blood Culture - Preliminary Blood SPECIMEN COLLECTED 05/13/20 23:06 Urine Culture - Preliminary Urine,Voided 05/14/20 06:20 Blood Culture - Preliminary Blood NEGATIVE TO DATE A&P Assessment and plan (1) Gram-positive cocci in clusters: Discussed with her blood cultures showing gram-positive cocci, 1/4 bottles. This evening I see upgraded to 2/4 bottles. Same set. Under usual circumstances this may be considered perhaps contamination. Discussed with her in her case we would want to be more cautious given she has recently had a PICC line removal due to suspected infection. Requested repeat blood culture 05/14. Follow-up ID and sensitivity on this culture and repeat. May need additional evaluation in case suspicion of true bacteremia. Status: Acute (2) Respiratory failure with hypoxia: Air entry is better today. She is still having pleuritic pain, intermittent dry cough. Denies chest pain. No hemoptysis. With history of PE, persistent pleuritic discomfort, dry cough, would like to assess that she does not have more new PE. Discussed with her this is probably less like given she already had a [place] filter in place, has not been on tachycardia relation, and so there is small but possibility that may have additional more PE. Discussed with her risks of additional imaging including contrast nephropathy COVID 19 PCR negative. weaning off oxygen. Continue steroids. Reduced methylprednisolone dose frequency. Continue breathing treatments. Continue antibiotics for pneumonia. Follow blood cx, sputum cx and gram stain bacterial antigens, Legionella, MRSA negative Status: Acute Qualifiers: Chronicity: acute Qualified Code(s): J96.01 - Acute respiratory failure with hypoxia (3) Sepsis: Improved Status: Acute Qualifiers: Acute respiratory failure type: with hypoxia Sepsis acute organ dysfunction status: with acute organ dysfunction Sepsis type: sepsis due to unspecified organism Severe sepsis acute organ dysfunction type: acute respiratory failure Severe sepsis shock status: without septic shock Qualified Code(s): A41.9 - Sepsis, unspecified organism; R65.20 - Severe sepsis without septic shock; J96.01 - Acute respiratory failure with hypoxia (4) UTI (urinary tract infection): No growth so far -f/u urine cx -on IV antibiotics Status: Acute Qualifiers: Hematuria presence: with hematuria Urinary tract infection type: site unspecified Qualified Code(s): N39.0 - Urinary tract infection, site not specified; R31.9 - Hematuria, unspecified (5) Anemia: Discussed with her hemoglobin down to 8.1. Monitor. Transfuse if falling below 7. Continue follow-up with hematology. Previously anticoagulated with Eliquis due to history of VTE. Due to anemia this was discontinued in the past. She states etiology of anemia is not known, but reports prior admission for GI bleed. Continue PPI. -Has known history of anemia with intermittent transfusion dependence -Follows up with Dr. Cr -Previously had a PICC line for transfusions, PICC line got infected and was subsequently removed. Long-term consideration for port placement. May need to be delayed currently for additional investigation of possible bacteremia. -Noted anemia, closely monitor hemoglobin, anticipate need for transfusion of blood products -has had GI workup done in 01/2020 with EGD showing GERD, hiatal hernia and gastritis Status: Chronic Qualifiers: Anemia type: unspecified type Qualified Code(s): D64.9 - Anemia, unspecified (6) COPD (chronic obstructive pulmonary disease): Clinically appears to be improving. Improving air entry bilaterally. -Oxygen dependent at baseline -Neb treatments as needed, decrease IV steroids -Follows up with Dr. Escalera Status: Acute Qualifiers: COPD type: COPD with acute exacerbation Qualified Code(s): J44.1 - Chronic obstructive pulmonary disease with (acute) exacerbation (7) Seizures: -Seizure precautions -Keppra Status: Chronic (8) Pulmonary nodule, right: -Surveillance imaging being done by Dr. Ventura; PET scan in 12/2017 showed no abnormal activity -Pending CT scan Status: Acute Additional A&P Information -Chronic diastolic CHF with possibly mild exacerbation as notes recent lower extremity edema, although otherwise denies orthopnea. Continue Lasix. Monitor I&O, volume status. Resume oral Lasix; monitor for fluid overload particularly if need for transfusion of blood products. 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 Continue to monitor renal function, avoid nephrotoxins, renally dose meds -cardiac diet as tolerated -GI ppx with PPI -DVT ppx with SCDs; no AC due to acute anemia -Dispo: home -Code status: FULL code Attestations Medical Necessity Statement*: Continue admission for additional investigation of possible bacteremia, improving respiratory failure, sepsis, treatment for pneumonia, COPD exacerbation. Coding Level of Care Code Acute Leadership Program Associate for [facility] Fwd Diagnoses Gram-positive cocci in clusters R68.89 Respiratory failure with hypoxia J96.01 Chronicity: acute Sepsis A41.9; R65.20; J96.01 Acute respiratory failure type: with hypoxia Sepsis acute organ dysfunction status: with acute organ dysfunction Sepsis type: sepsis due to unspecified organism Severe sepsis acute organ dysfunction type: acute respiratory failure Severe sepsis shock status: without septic shock UTI (urinary tract infection) N39.0; R31.9 Hematuria presence: with hematuria Urinary tract infection type: site unspecified Anemia D64.9 Anemia type: unspecified type COPD (chronic obstructive pulmonary disease) J44.1 COPD type: COPD with acute exacerbation Seizures R56.9 Pulmonary nodule, right R91.1
[2020-05-16] VITALS (14 sets, daily range): BP systolic 119–134; BP diastolic 79–88; PULSE 79–94; RESP 18–22; TEMP 36.1–36.8; O2SAT 91–97
[2020-05-16] MEDS: guaiFENesin-dextromethorphan UDC 10 mL PO ×2 (00:14→17:36)
[2020-05-16] MEDS: oxyCODONE 5 mg IR Tab/Cap PO ×3 (00:15→17:36)
[2020-05-16] MEDS: ondansetron 2 mg/ML SDV 2 mL 4 MG IVP (00:33)
[2020-05-16] MEDS: sucralfate 1 gm Tablet PO ×4 (06:05→22:05)
[2020-05-16 07:56] LABS: Eosinophils % 0.1 %; Hematocrit 28.4 % (37.0-47.0); Hemoglobin 8.1 g/dL (11.5-15.3); Lymphocytes # 0.4 10^3/uL (0.8-4.8); Lymphocytes % 3.6 %; Mean Corpuscular HGB Conc 28.5 g/dL (30.0-36.0); Mean Corpuscular Hemoglobin 24.9 pg (28.0-34.0); Mean Corpuscular Volume 87.4 fL (81-99); Mean Platelet Volume 10.6 fL (7.4-10.4); Monocytes # 0.5 10^3/uL (0.2-0.9); Monocytes % 3.9 %; Neutrophils # 11.16 10^3/uL (1.8-7.7); Neutrophils % 91.8 %; Nucleated Red Blood Cells % 0 %; Platelet Count 247 10^3/cmm (130-400); Red Blood Count 3.25 10^6/uL (4.1-5.3); Red Cell Distribution Width 18.6 % (12.1-15.1); White Blood Count 12.2 10^3/uL (4.0-10.0)
--- NOTE | 2020-05-16 08:09 | PC.NURSE ---
IV ACCESS WAS LOST AT AROUND 0100. MULTIPLE ATTEMPTS WERE MADE BY FLOOR NURSES AND [employer] AND DR. ARMANDO. DR. ARMANDO FINALLY OBTAINED ACCESS AROUND 0530 AND PT WAS STARTED ON VANCOMYCIN. 30 MINUTES LATER PT BEGAN TO SCREAM IN PAIN SAYING HER ARM WAS BURNING. THIS NURSE TRIED TO FLUSH THE IV AND PT HAD EXTREME PAIN AND BLOOD RETURN COULD NOT BE OBTAINED. THIS NURSE THEN CALLED AN ANESTHESIOLOGIST WHO OBTAINED IV ACCESS AT AROUND 0730, HOWEVER, SHE IS NOT CERTAIN IF SHE GOT THE ARTERY OR THE VEIN, SO A BLOOD GAS HAS TO BE OBTAINED BEFORE WE CAN RUN ANY MEDICATION THROUGH THE LINE.
[2020-05-16 08:13] LABS: Alanine Aminotransferase 6 U/L (0-33); Albumin Level 3.2 g/dL (3.5-5.2); Alkaline Phosphatase 103 IU/L (35-105); Anion Gap 11.7 (5-19); Aspartate Amino Transferase 5 U/L (0-32); Blood Urea Nitrogen 15 mg/dL (6-20); Calcium 7.6 mg/dL (8.5-10.5); Carbon Dioxide 27 mmol/L (22-29); Chloride 102 mmol/L (98-107); Globulin 3.1 g/dL (1.3-4.6); Glucose 145 mg/dL (65-115); Osmolality Calculated 283 mOsm/kg (285-295); Potassium 3.7 mmol/L (3.5-5.1); Sodium 137 mmol/L (136-145); Total Bilirubin 0.3 mg/dL (0.15-1.2); Total Protein 6.3 g/dL (6.6-8.7)
[2020-05-16 08:18] LABS: Vancomycin Trough 21.3 ug/mL (10-15)
[2020-05-16 08:19] LABS: Blood Gas Operator Identificat MONRO; Blood Gas Sample Type Venous; Oxygen Device NC
--- NOTE | 2020-05-16 09:24 | USCV_ITS ---
Delores Mckeon Age: 44 Gender: F : 1975 Exam Date: 05/16/2020 14:41 Ordering Phys: Edgardo Alexander MD Technologist: Stanford Burns Exam Location: [facility] [place] Indication: SOB BP: 128 / 73 HR: 92 Rhythm: Sinus Technical Quality: Suboptimal MEASUREMENTS (Male / Female) Normal Values 2D ECHO LV Diastolic Diameter PLAX 5.0 cm 4.2 - 5.9 / 3.9 - 5.3 cm LV Systolic Diameter PLAX 2.4 cm IVS Diastolic Thickness 0.6 cm 0.6 - 1.0 / 0.6 - 0.9 cm IVS Systolic Thickness 1.3 cm LVPW Diastolic Thickness 0.8 cm 0.6 - 1.0 / 0.6 - 0.9 cm LVPW Systolic Thickness 1.3 cm LVOT Diameter 2.0 cm LV Ejection Fraction 2D Teich 82.0 % LV Ejection Fraction MOD 2C 57.2 % LV Ejection Fraction 2C AL 57.7 % LA Diameter 4.2 cm LA Width 4.0 cm LA Height 4.6 cm RA Width 3.4 cm RA Height 4.1 cm M-MODE LV Diastolic Diameter MM 4.4 cm 4.2 - 5.9 / 3.9 - 5.3 cm LV Systolic Diameter MM 2.5 cm LV Ejection Fraction MM Teich 75.3 % IVS Diastolic Thickness MM 1.1 cm 0.6 - 1.0 / 0.6 - 0.9 cm IVS Systolic Thickness MM 1.5 cm LVPW Diastolic Thickness MM 1.0 cm 0.6 - 1.0 / 0.6 - 0.9 cm LVPW Systolic Thickness MM 1.4 cm RV Diastolic Diameter MM 1.8 cm Aortic Annulus Diameter 2.9 cm LA Ao Ratio MM 1.4 MV E Point Septal Separation 0.8 cm DOPPLER AV Peak Velocity 165.0 cm/s LVOT Peak Velocity 107.0 cm/s AV Area Cont Eq vti 2.0 cm squared AV Area Cont Eq pk 2.1 cm squared MV Area PHT 5.0 cm squared Mitral E to A Ratio 1.1 MV E' Velocity 11.0 cm/s Mitral E to MV E' Ratio 9.9 Mitral E to LV E' Lateral Ratio 9.8 Mitral E to LV E' Septal Ratio 10.0 TR Peak Velocity 188.0 cm/s TR Peak Gradient 14.2 mmHg TV Peak E Velocity 109.0 cm/s Right Atrial Pressure 3.0 mmHg Pulmonary Artery Systolic Pressu 17.1 mmHg FINDINGS Left Ventricle Normal left ventricular size and systolic function, EF 57 %. No regional wall motion abnormalities. Right Ventricle Normal right ventricular size and systolic function. Right Atrium Normal right atrial size. Left Atrium Mildly increased left atrial size. Some echodensities are noted in the left atrium, appears to be not attached to the valve Mitral Valve Thickened mitral valve. Mild mitral annular calcification. Aortic Valve No gross abnormalities noted Tricuspid Valve Trace tricuspid valve regurgitation. Estimated pulmonary artery peak systolic pressure of 70 mmHg Pulmonic Valve Pulmonic valve not well visualized. Pericardium No pericardial effusion. Aorta Normal aortic annulus size. CONCLUSIONS Normal left ventricular size and systolic function, EF 57 %. No regional wall motion abnormalities. Mildly increased left atrial size. Some echodensities are noted in the left atrium, cannot exclude a vegetation Thickened mitral valve. Mild mitral annular calcification. Trace tricuspid valve regurgitation. There is no pericardial effusion. Comparison with the previous study is difficult because of the difference in the technical quality. Consider HANY, to rule out vegetation, if clinically indicated Dr Ravinder House MD FACC (Electronically Signed) Final Date: 17 May 2020 18:07 S
--- NOTE | 2020-05-16 09:24 | PM.PN ---
Subjective Subjective: Interval history: No acute events overnight. States she is feeling a lot better. Still complaining of pain through the IV lines. Denies of any nausea, vomiting, headache. Complaining of cough. No expectoration. Denies of any nausea, vomiting, headache. Vitals/I&O/Wt Last Vital Signs Temp 97.8 F 05/16/20 07:16 Pulse 87 05/16/20 08:08 Resp 18 05/16/20 08:08 BP 129/86 05/16/20 07:16 Pulse Ox 94 05/16/20 08:08 05/15/20 05/16/20 05/16/20 22:59 06:59 14:59 Intake Total 200 / 960 Output Total 450 / 850 Balance -250 / 110 Weight last 48 hrs Weight 107.048 kg Weight 107.218 kg Physical Exam Narrative: EXAM NARRATIVE: General: No acute distress, AO x3, obese, sleepy HEENT: PERRLA, pupils bilaterally equal and reactive Chest: Bilateral expiratory wheeze, bilateral bronchial breath sounds, equal air entry all over the lung hernandez CVS: S1-S2 regular, no murmurs, no tachycardia, no gallops, no rubs Abdomen: Soft, nontender, no organomegaly, bowel sounds present Neuro: No focal deficits, no facial deformity, AO x3, power 5/5 in all limbs Data : 05/16/20 07:40 05/16/20 07:40 Micro: Microbiology 05/14/20 06:26 Blood Culture - Preliminary Blood Coagulase negativ staphylococc 05/13/20 23:06 Urine Culture - Final Urine,Voided 05/15/20 15:39 Blood Culture - Preliminary Blood SPECIMEN COLLECTED 05/15/20 15:34 Blood Culture - Preliminary Blood SPECIMEN COLLECTED 05/14/20 06:20 Blood Culture - Preliminary Blood NEGATIVE TO DATE A&P Assessment and plan (1) Gram-positive cocci in clusters: 2 out of 4 bottles positive for coag negative staph. Repeat blood cultures have remained negative. MRSA negative. PICC line from 826 also positive for staph epidermidis along with other staph colonies. At present patient is on vancomycin which is culture directed from the PICC line cultures. We will continue the same. Check echocardiogram to rule of infective endocarditis. Status: Acute (2) Respiratory failure with hypoxia: Could be multiple etiologies. Most likely because of bronchitis leading to exacerbation of asthma. Cannot rule out TRALI because of recurrent blood transfusions. Chances of pneumonia are less. But she is adequately covered with vancomycin and Levaquin. We will continue the same. Can be secondary to heart failure. Patient does have a history of diastolic heart failure in the past. Checking echocardiogram as above. Check proBNP. For now continue home dose of Lasix 40 mg twice daily. Strict input output charting. Daily weights. Patient has an IVC filter. Does have a history of DVT in the past for which she was on Eliquis in the past but which was stopped after the lower limb Dopplers were negative. Chances of PE are low but patient is already been ordered for CTA PE and wants to go ahead with that today in the afternoon. We will continue to follow. We will start patient on duo nebs, budesonide. We will wean off methylprednisolone to 40 mg daily. Most likely patient will require slow steroid taper as an outpatient. Oxygen supplementation keeping saturation over 90%. Status: Acute Qualifiers: Chronicity: acute Qualified Code(s): J96.01 - Acute respiratory failure with hypoxia (3) Sepsis: Improved Status: Acute Qualifiers: Acute respiratory failure type: with hypoxia Sepsis acute organ dysfunction status: with acute organ dysfunction Sepsis type: sepsis due to unspecified organism Severe sepsis acute organ dysfunction type: acute respiratory failure Severe sepsis shock status: without septic shock Qualified Code(s): A41.9 - Sepsis, unspecified organism; R65.20 - Severe sepsis without septic shock; J96.01 - Acute respiratory failure with hypoxia (4) UTI (urinary tract infection): No growth so far -f/u urine cx -on IV antibiotics Status: Acute Qualifiers: Hematuria presence: with hematuria Urinary tract infection type: site unspecified Qualified Code(s): N39.0 - Urinary tract infection, site not specified; R31.9 - Hematuria, unspecified (5) Anemia: Present with Dr. Cr. Patient is intermittent transfusion dependent. Check Iron panel. Will start patient on IV iron supplementation. Monitor. Transfuse if falling below 7. Continue follow-up with hematology. Previously anticoagulated with Eliquis due to history of VTE. Due to anemia this was discontinued in the past. She states etiology of anemia is not known, but reports prior admission for GI bleed. Continue PPI. -Has known history of anemia with intermittent transfusion dependence -Follows up with Dr. Cr -Previously had a PICC line for transfusions, PICC line got infected and was subsequently removed. Long-term consideration for port placement. May need to be delayed currently for additional investigation of possible bacteremia. -Noted anemia, closely monitor hemoglobin, anticipate need for transfusion of blood products -has had GI workup done in 01/2020 with EGD showing GERD, hiatal hernia and gastritis Status: Chronic Qualifiers: Anemia type: unspecified type Qualified Code(s): D64.9 - Anemia, unspecified (6) COPD (chronic obstructive pulmonary disease): Clinically appears to be improving. Improving air entry bilaterally. -Oxygen dependent at baseline -Neb treatments as needed, decrease IV steroids -Follows up with Dr. Escalera Status: Acute Qualifiers: COPD type: COPD with acute exacerbation Qualified Code(s): J44.1 - Chronic obstructive pulmonary disease with (acute) exacerbation (7) Seizures: -Seizure precautions -Keppra Status: Chronic (8) Pulmonary nodule, right: -Surveillance imaging being done by Dr. Ventura; PET scan in 12/2017 showed no abnormal activity -Pending CT scan Status: Acute Additional A&P Information -Chronic diastolic CHF with possibly mild exacerbation as notes recent lower extremity edema, although otherwise denies orthopnea. Continue Lasix. Monitor I&O, volume status. Resume oral Lasix; monitor for fluid overload particularly if need for transfusion of blood products. Echo (06/2019): EF=70%, no RWMA, trace to mild TR, trace NV -HTN; monitor vital signs -Morbid obesity: BMI-40 kg/m2 -Hypothyroidism; resume thyroid replacement; TSH elevated. 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 Continue to monitor renal function, avoid nephrotoxins, renally dose meds -cardiac diet as tolerated -GI ppx with PPI -DVT ppx with SCDs; no AC due to acute anemia Dispo: home Code status: FULL code Attestations Medical Necessity Statement*: Gram-positive bacteremia, respiratory failure Time Spent in Patient Care: Greater than 35 minutes (>than 50% of time spent in counselling and/or direct pt care on unit). Coding Level of Care Code Acute Belly Dancer for [facility] Diagnoses Gram-positive cocci in clusters R68.89 Respiratory failure with hypoxia J96.01 Chronicity: acute Sepsis A41.9; R65.20; J96.01 Acute respiratory failure type: with hypoxia Sepsis acute organ dysfunction status: with acute organ dysfunction Sepsis type: sepsis due to unspecified organism Severe sepsis acute organ dysfunction type: acute respiratory failure Severe sepsis shock status: without septic shock UTI (urinary tract infection) N39.0; R31.9 Hematuria presence: with hematuria Urinary tract infection type: site unspecified Anemia D64.9 Anemia type: unspecified type COPD (chronic obstructive pulmonary disease) J44.1 COPD type: COPD with acute exacerbation Seizures R56.9 Pulmonary nodule, right R91.1
--- NOTE | 2020-05-16 09:25 | PC.NURSE ---
Rcvd verbal order from Dr Alexander for 50mg IVP Benadryl to premedicate for CT scan.
[2020-05-16 10:13] LABS: Free T4 Free Thyroxine 0.82 ng/dL (0.82-1.77); NT Pro B Type Natriuretic Pept 2257 pg/mL (0-125)
[2020-05-16 10:22] LABS: PCO2 VBG 53.5 mmHg (41-51); PO2 VBG 22.9 mmHg (25-40); pH VBG 7.29 (7.32-7.42)
[2020-05-16 10:23] LABS: Base Excess VBG -1.3 mmol/L (-3.0-3.0); HCO3 VBG 25.4 mmol/L (24-28)
[2020-05-16] MEDS: diphenhydrAMINE 50 mg/mL SDV 1mL IVP (10:24)
[2020-05-16] MEDS: pantoprazole DR 40 mg Tablet PO (10:24)
[2020-05-16] MEDS: FUROsemide 40 mg Tablet PO ×2 (10:24→15:45)
[2020-05-16] MEDS: CLONazepam 0.5 mg Tablet PO ×3 (10:24→22:06)
[2020-05-16] MEDS: levothyroxine 100 mcg Tablet 200 MCG PO (10:24)
[2020-05-16] MEDS: potassium chloride ER 10 mEq Tablet 20 MEQ PO (10:24)
[2020-05-16] MEDS: levETIRAcetam 500 mg Tablet 1000 MG PO ×2 (10:24→16:45)
[2020-05-16] MEDS: levofloxacin-dextrose 5 % 750 MG/150 ML PREMIX 100 MG IV (10:34)
--- NOTE | 2020-05-16 11:22 | PC.NURSE ---
Notified Dr Alexander that patient refuses to let us use the two IVs she had. She states they are not in the correct place and they are burning. Anesthesia place the IV in the left upper arm this AM. Per Dr Alexander, call to see if someone can use ultrasound to place IV again.
--- NOTE | 2020-05-16 12:03 | PC.RESP ---
Pulmonary Rehab information to patient.
--- NOTE | 2020-05-16 12:58 | PC.NURSE ---
Called hotel houseman to find someone to try to insert IV using ultrasound. Human Factors Advisor Lead has called twice and hotel houseman said she is still looking.
--- NOTE | 2020-05-16 13:26 | PC.NURSE ---
IV started by Rolf from ER.
[2020-05-16] MEDS: iodixanol 320 mg/mL 100mL Btl IV (14:12)
[2020-05-16] MEDS: ipratropium-albuterol 3 mL Neb INHALATION ×2 (14:29→20:11)
[2020-05-16] MEDS: iron sucrose 200 MG in sodium chloride 0.9% (100 ml) 100 ML 220 MG IV (15:42)
[2020-05-16] MEDS: sodium chloride 0.9% (100 ml) 100 ML (15:43)
[2020-05-16] MEDS: benzonatate 100 mg Capsule PO ×2 (15:45→22:06)
[2020-05-16] MEDS: FUROsemide 10 mg/mL SDV 4mL 40 MG IVP (16:45)
[2020-05-16 16:51] LABS: Iron 16 ug/dL (37-145); Percent Saturation 4.5 % (20-50); Total Iron Binding Capacity 349 mcg/dl; Unsaturated Iron Binding 333 ug/dL (112-347)
--- NOTE | 2020-05-16 19:53 | CT_ITS ---
WS: [id number] CT CHEST ANGIOGRAPHY WITH REFORMATS HISTORY: cough, pleuritic pain, dyspnea TECHNIQUE: Contiguous axial images are obtained through the chest during arterial injection of intrav enous contrast. Images are reconstructed to evaluate the pulmonary arteries. MIP imaging also reviewe d. All CT scans at [facility] use at least one of these dose optimization techniques: aut omated exposure control; mA and/or kV adjustment per patient size (includes targeted exams where dose is matched to clinical indication); or iterative reconstruction. CONTRAST: Visipaque 320; 95 mL IV. DLP: 1505.31 mGy.cm COMPARISON: 10/24/2019 Study is significantly limited by breathing motion. Suboptimal opacification of the pulmonary arterie s. Centrally no pulmonary embolism is identified. Beyond the lobar branches the motion artifact is li miting assessment for pulmonary emboli. Pulmonary artery is enlarged measuring 3.4 cm. No pericardial or pleural effusions. Diffuse pulmonary haziness. Mild fluid overload and edema. RIGHT lower lobe pulmonary nodule which ab uts the fissure measures 1.2 cm and is unchanged. Mild dependent changes at the lung bases. No medias tinal or hilar adenopathy. Large hiatal hernia. There is air dissecting through the soft tissues planes around the RIGHT shoulder and over the pector sb muscle. Air extends along the proximal RIGHT humerus. There is inflammation or stranding in the soft tissues of the RIGHT upper extremity. There is no pneumothorax. Liver is enlarged. Stable hepatic cyst towards the diaphragm of the liver. Gallbladder has been surgi livier. Spleen also appears enlarged but is incompletely visualized. Spleen measures at least [address]/CT angio chest PE protcl [id number] IMPRESSION: 1. Significantly limited evaluation of the pulmonary arteries due to motion. C entrally there is no pulmonary embolism. 2. Moderate pulmonary artery enlargement. 3. Subcutaneous air dissecting through the soft tissues around the RIGHT shoul blayne and over the RIGHT pectoralis muscle. Correlate for possible recent interve ntion. Necrotizing fasciitis is a possible etiology if there is no other explan ation. 4. Stable RIGHT lower lobe pulmonary nodule with dependent changes bilaterally in both lungs. 5. Large hiatal hernia. 6. Cardiomegaly. 7. Spleen appears enlarged although not completely visualized on this examinat ion.
[2020-05-16] MEDS: budesonide 0.5 mg/2 mL Neb INHALATION (20:11)
[2020-05-17] VITALS (16 sets, daily range): BP systolic 116–147; BP diastolic 67–96; PULSE 64–115; RESP 17–22; TEMP 36.4–36.8; O2SAT 91–100
[2020-05-17] MEDS: guaiFENesin-dextromethorphan UDC 10 mL PO ×3 (02:48→17:42)
[2020-05-17] MEDS: oxyCODONE 5 mg IR Tab/Cap PO ×3 (02:50→17:43)
--- NOTE | 2020-05-17 05:08 | PC.NURSE ---
When RN went to administer vanc Pt's IV access had been lost, Doctor Sonny notified, okay given to hold IV meds until able to accessed or PICC placed.
[2020-05-17] MEDS: sucralfate 1 gm Tablet PO ×4 (06:02→21:20)
--- NOTE | 2020-05-17 07:43 | PC.NURSE ---
called house father for IV insertion using ultrasound.
--- NOTE | 2020-05-17 08:38 | P.PN_ITS ---
Subjective Subjective: Interval history: No acute events overnight. She denies of any nausea, vomiting, headache. She is concerned about cough. She does not have any expectoration, chest pain. Patient has remained afebrile and hemodynamically stable. Patient did lose IV access last night. Trying to arrange for an ultrasound- guided IV access. Vitals/I&O/Wt Last Vital Signs Temp 98.1 F 05/17/20 07:40 Pulse 64 05/17/20 07:40 Resp 22 H 05/17/20 07:40 BP 130/74 05/17/20 07:40 Pulse Ox 92 05/17/20 07:40 05/16/20 05/17/20 05/17/20 22:59 06:59 14:59 Intake Total 480 / 1460 Output Total 402 / 402 Balance 480 / 1460 -402 / 1058 Weight last 48 hrs Weight 107.104 kg Weight 107.411 kg Weight 107.048 kg Physical Exam Narrative: EXAM NARRATIVE: General: No acute distress, AO x3, obese, more awake today. HEENT: PERRLA, pupils bilaterally equal and reactive Chest: Bilateral expiratory wheeze, bilateral bronchial breath sounds, equal air entry all over the lung hernandez, no localized subcutaneous crepitus present, mild localized tenderness present in the right arm, no bruise, no blister no skin changes. CVS: S1-S2 regular, no murmurs, no tachycardia, no gallops, no rubs Abdomen: Soft, nontender, no organomegaly, bowel sounds present Neuro: No focal deficits, no facial deformity, AO x3, power 5/5 in all limbs Data : 05/17/20 10:22 05/17/20 10:22 Micro: Microbiology 05/14/20 06:26 Blood Culture - Preliminary Blood Coagulase negativ staphylococc 05/15/20 15:39 Blood Culture - Preliminary Blood NEGATIVE TO DATE 05/15/20 15:34 Blood Culture - Preliminary Blood NEGATIVE TO DATE 05/13/20 23:06 Urine Culture - Final Urine,Voided A&P Assessment and plan (1) Subcutaneous air: CTA done yesterday concerning for subcutaneous air dissecting the soft tissue on the right side involving the arm and chest including pectoralis muscle. CT discussed in detail with Dr. Darnell from radiology. She states it is quite possibly related to her recent PICC line but because of presence of some bubbles cannot rule out necrotizing fasciitis versus thrombophlebitis. We will get right upper limb ultrasound to rule out DVT. Patient has remained hemodynamically stable. Has remained afebrile. Leukocytosis is mild. She does have possible staph bacteremia which is still under evaluation. Patient did have a PICC line which had infected PICC line tip but was removed around 3 weeks ago. At this point clinically on examination as patient does not have any localized tenderness, subcutaneous crepitations chances of necrotizing fasciitis is low. Will get surgical consultation for further evaluation and work-up as needed. Status: Acute (2) Gram-positive cocci in clusters: 2 out of 4 bottles positive for coag negative staph. Have requested the lab for further speciation and identification with sensitivities. Repeat blood cultures have remained negative. MRSA negative. PICC line from 04/27 also positive for staph epidermidis along with other staph colonies. At present patient is on vancomycin which is culture directed from the PICC line cultures. We will continue the same. Check echocardiogram to rule of infective endocarditis. Status: Acute (3) Respiratory failure with hypoxia: At home patient is on 3 to 4 L of oxygen supplementation. At present saturation 95% on 2 L nasal cannula. Could be multiple etiologies. Most likely because of bronchitis leading to exacerbation of asthma. CT scan reviewed. Has ruled out PE and TRALI. Chances of pneumonia are less. But she is adequately covered with vancomycin and Levaquin. We will continue the same. Day 4 of antibiotics today. proBNP elevated. Echocardiogram done but results awaited. Change Lasix to 40 mg IV twice daily. Strict input output charting. Have asked nursing staff for strict output charting. Daily weights. Change methylprednisone 40 mg IV daily to prednisone 40 mg oral daily. Most likely patient will require slow steroid taper as an outpatient. Oxygen supplementation keeping saturation over 90%. Tessalon Perles 100 mg 3 times daily scheduled, Robitussin DM every 4 hours as needed. Status: Acute Qualifiers: Chronicity: acute Qualified Code(s): J96.01 - Acute respiratory failure with hypoxia (4) Sepsis: Improved Status: Acute Qualifiers: Acute respiratory failure type: with hypoxia Sepsis acute organ dysfunction status: with acute organ dysfunction Sepsis type: sepsis due to unspecified organism Severe sepsis acute organ dysfunction type: acute respiratory failure Severe sepsis shock status: without septic shock Qualified Code(s): A41.9 - Sepsis, unspecified organism; R65.20 - Severe sepsis without septic shock; J96.01 - Acute respiratory failure with hypoxia (5) UTI (urinary tract infection): No growth so far -f/u urine cx -on IV antibiotics Status: Acute Qualifiers: Hematuria presence: with hematuria Urinary tract infection type: site unspecified Qualified Code(s): N39.0 - Urinary tract infection, site not specified; R31.9 - Hematuria, unspecified (6) Anemia: Present with Dr. rC. Patient is intermittent transfusion dependent. Iron panel results appreciated. Continue with IV iron supplementation. Day 2 today. Monitor. Transfuse if falling below 7. Continue follow-up with hematology. Previously anticoagulated with Eliquis due to history of VTE. Due to anemia this was discontinued in the past. She states etiology of anemia is not known, but reports prior admission for GI bleed. Continue PPI. -Has known history of anemia with intermittent transfusion dependence -Follows up with Dr. Cr -Previously had a PICC line for transfusions, PICC line got infected and was subsequently removed. Long-term consideration for port placement. May need to be delayed currently for additional investigation of possible bacteremia. -Noted anemia, closely monitor hemoglobin, anticipate need for transfusion of blood products -has had GI workup done in 01/2020 with EGD showing GERD, hiatal hernia and gas tritis Status: Chronic Qualifiers: Anemia type: unspecified type Qualified Code(s): D64.9 - Anemia, unspecified (7) COPD (chronic obstructive pulmonary disease): Clinically appears to be improving. Improving air entry bilaterally. -Oxygen dependent at baseline -Neb treatments as needed, decrease IV steroids -Follows up with Dr. 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 Ventura; PET scan in 12/2017 showed no abnormal activity -Pending CT scan Status: Acute (10) Acute thrombosis of basilic vein: Status: Acute Additional A&P Information Chronic diastolic CHF with possibly mild exacerbation as notes recent lower extremity edema, although otherwise denies orthopnea. Continue Lasix. Monitor I&O, volume status. Resume oral Lasix; monitor for fluid overload particularly if need for transfusion of blood products. Echo (06/2019): EF=70%, no RWMA, trace to mild TR, trace NC HTN-goal blood pressure less than 140/90 mmHg. Monitor vital signs Morbid obesity: BMI-40 kg/m2 Hypothyroidism; resume thyroid replacement; TSH elevated. Free T3 and T4 within normal limits. 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 Continue to monitor renal function, avoid nephrotoxins, renally dose meds -cardiac diet as tolerated -GI ppx with PPI -DVT ppx with SCDs; no AC due to acute anemia Dispo: home Code status: FULL code Protonix 40 mg twice daily for PUD prophylaxis. Attestations Medical Necessity Statement*: Acute on chronic hypoxic respiratory failure, gram-positive bacteremia. Time Spent in Patient Care: Greater than 35 minutes (>than 50% of time spent in counselling and/or direct pt care on unit) . Coding Level of Care Code Acute Personalized Living Manager for Chg Fwd Diagnoses Subcutaneous air T79.7XXA Gram-positive cocci in clusters R68.89 Respiratory failure with hypoxia J96.01 Chronicity: acute Sepsis A41.9; R65.20; J96.01 Acute respiratory failure type: with hypoxia Sepsis acute organ dysfunction status: with acute organ dysfunction Sepsis type: sepsis due to unspecified organism Severe sepsis acute organ dysfunction type: acute respiratory failure Severe sepsis shock status: without septic shock UTI (urinary tract infection) N39.0; R31.9 Hematuria presence: with hematuria Urinary tract infection type: site unspecified Anemia D64.9 Anemia type: unspecified type COPD (chronic obstructive pulmonary disease) J44.1 COPD type: COPD with acute exacerbation Seizures R56.9 Pulmonary nodule, right R91.1 Acute thrombosis of basilic vein I82.619
[2020-05-17] MEDS: ipratropium-albuterol 3 mL Neb INHALATION ×3 (09:09→20:12)
[2020-05-17] MEDS: levETIRAcetam 500 mg Tablet 1000 MG PO ×2 (09:18→17:42)
[2020-05-17] MEDS: levothyroxine 100 mcg Tablet 200 MCG PO (09:18)
[2020-05-17] MEDS: FUROsemide 40 mg Tablet PO (09:18)
[2020-05-17] MEDS: predniSONE 20 mg Tablet 40 MG PO (09:19)
[2020-05-17] MEDS: CLONazepam 0.5 mg Tablet PO ×3 (09:19→21:20)
[2020-05-17] MEDS: potassium chloride ER 10 mEq Tablet 20 MEQ PO (09:19)
[2020-05-17] MEDS: fluticasone nasal spray 16gm Btl 1 SPRAY NASAL ×2 (09:19→17:43)
[2020-05-17] MEDS: benzonatate 100 mg Capsule PO ×3 (09:19→21:20)
--- NOTE | 2020-05-17 09:27 | PC.NURSE ---
Dr Alexander at bedside. per Dr Alexander no IV sticks in Right arm. Foot sticks are ok
--- NOTE | 2020-05-17 10:25 | PC.SOCIAL ---
Pg 2 IMM Explained to pt Pg 2 IMM. Provided pt a copy. No questions voiced. Signed, dated, & timed a copy & placed in chart.
--- NOTE | 2020-05-17 10:31 | USCV_ITS ---
Delores Mckeon Age: 44 Gender: F : 1975 Exam Date: 05/17/2020 13:08 Ordering Phys: Edgardo Alexander MD Technologist: Stanford Burns Exam Location: [facility] – [place]_ Indication: RT ARM PAIN HX OF PIC LINE HISTORY: Upper extremity swelling. PROCEDURES: Venous duplex imaging was performed in only the right upper extremity. The following venous structures were evaluated: internal jugular vein, subclavian vein, axillary vein, and brachial veins. In addition, the basilic vein, cephalic vein, radial vein, and ulnar vein. FINDINGS: Occluding thrombus in the right basilic vein. The remaining veins proximal and distal are patent with no thrombus. CONCLUSIONS Acute occlusive thrombus right basilic vein. Dr. Kassie Darnell DO (Electronically Signed) Final Date: 17 May 2020 13:37 S
[2020-05-17 10:57] LABS: Basophils % 0.1 %; Hematocrit 32.3 % (37.0-47.0); Lymphocytes # 0.7 10^3/uL (0.8-4.8); Mean Corpuscular HGB Conc 27.9 g/dL (30.0-36.0); Mean Corpuscular Hemoglobin 24.9 pg (28.0-34.0); Mean Corpuscular Volume 89.2 fL (81-99); Mean Platelet Volume 10.6 fL (7.4-10.4); Monocytes # 0.4 10^3/uL (0.2-0.9); Monocytes % 3.7 %; Neutrophils % 86.8 %; Nucleated Red Blood Cells # 0.1 /100WBC; Nucleated Red Blood Cells % 0.8 %; Platelet Count 260 10^3/cmm (130-400); Red Blood Count 3.62 10^6/uL (4.1-5.3); Red Cell Distribution Width 18.2 % (12.1-15.1); White Blood Count 9.8 10^3/uL (4.0-10.0)
[2020-05-17 11:20] LABS: Alanine Aminotransferase 10 U/L (0-33); Albumin Level 3.4 g/dL (3.5-5.2); Alkaline Phosphatase 97 IU/L (35-105); Blood Urea Nitrogen 17 mg/dL (6-20); Calcium 7.8 mg/dL (8.5-10.5); Carbon Dioxide 29 mmol/L (22-29); Chloride 96 mmol/L (98-107); Globulin 3.3 g/dL (1.3-4.6); Glomerular Filtration Rate 67.7 mL/min (90-130); Glucose 203 mg/dL (65-115); Osmolality Calculated 284 mOsm/kg (285-295); Sodium 136 mmol/L (136-145); Total Bilirubin 0.4 mg/dL (0.15-1.2); Total Protein 6.7 g/dL (6.6-8.7)
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
[2020-05-17 11:47] LABS: Anion Gap 15.2 (5-19); Aspartate Amino Transferase 10 U/L (0-32); Potassium 4.2 mmol/L (3.5-5.1)
--- NOTE | 2020-05-17 12:48 | PC.NURSE ---
Rcvd verbal order from Dr Alexander to switch IV levofloxacin to Levofloxacin 500mg PO daily, and order a one time dose of 80mg lasix. casualty underwriter entered orders
[2020-05-17] MEDS: levoFLOXacin 500 mg Tablet PO (13:43)
[2020-05-17] MEDS: FUROsemide 40 mg Tablet 80 MG PO (13:43)
--- NOTE | 2020-05-17 14:09 | PC.NURSE ---
Notified Dr Smith that patient has not urinated at all this shift and only had 200ml out last night. Per Dr Smith, notified and if he doesn't urinate by 1700, straight cath.
--- NOTE | 2020-05-17 15:01 | PC.NURSE ---
Patient just got IV access. Times adjusted for Iron Sucrose and Vancomycin
[2020-05-17] MEDS: iron sucrose 200 MG in sodium chloride 0.9% (100 ml) 100 ML 220 MG IV (15:17)
[2020-05-17] MEDS: pantoprazole DR 40 mg Tablet PO (17:42)
[2020-05-17] MEDS: FUROsemide 10 mg/mL SDV 4mL 40 MG IVP (17:43)
[2020-05-17] MEDS: budesonide 0.5 mg/2 mL Neb INHALATION (20:12)
[2020-05-17] MEDS: ondansetron 2 mg/ML SDV 2 mL 4 MG IVP (21:07)
--- NOTE | 2020-05-17 21:37 | PC.NURSE ---
This automobile service writer offered to give the pt motrin for her pain and she refused saying it will make my stomach bleed .
[2020-05-17] MEDS: HYDROmorphone 1 mg/mL INJ 1 mL 2 MG IVP (23:02)
[2020-05-18] VITALS (15 sets, daily range): BP systolic 124–143; BP diastolic 73–91; PULSE 88–113; RESP 16–21; TEMP 36.5–36.7; O2SAT 90–95
[2020-05-18] MEDS: guaiFENesin-dextromethorphan UDC 10 mL PO ×3 (02:28→20:38)
[2020-05-18] MEDS: ipratropium-albuterol 3 mL Neb INHALATION ×4 (02:50→20:05)
[2020-05-18] MEDS: FUROsemide 10 mg/mL SDV 4mL 40 MG IVP ×2 (04:07→15:07)
[2020-05-18] MEDS: sucralfate 1 gm Tablet PO ×4 (06:03→20:37)
[2020-05-18] MEDS: budesonide 0.5 mg/2 mL Neb INHALATION ×2 (08:23→19:55)
[2020-05-18] MEDS: iron sucrose 200 MG in sodium chloride 0.9% (100 ml) 100 ML 220 MG IV (09:09)
[2020-05-18] MEDS: levETIRAcetam 500 mg Tablet 1000 MG PO ×2 (09:10→16:58)
[2020-05-18] MEDS: CLONazepam 0.5 mg Tablet PO ×3 (09:10→20:37)
[2020-05-18] MEDS: predniSONE 20 mg Tablet 40 MG PO (09:10)
[2020-05-18] MEDS: levothyroxine 100 mcg Tablet 200 MCG PO (09:10)
[2020-05-18] MEDS: potassium chloride ER 10 mEq Tablet 20 MEQ PO (09:10)
[2020-05-18] MEDS: levoFLOXacin 500 mg Tablet PO (09:10)
[2020-05-18] MEDS: fluticasone nasal spray 16gm Btl 1 SPRAY NASAL (09:11)
[2020-05-18] MEDS: oxyCODONE 5 mg IR Tab/Cap PO ×3 (09:11→20:37)
[2020-05-18] MEDS: pantoprazole DR 40 mg Tablet PO ×2 (09:11→16:58)
[2020-05-18] MEDS: benzonatate 100 mg Capsule PO ×3 (10:11→20:37)
[2020-05-18] MEDS: linezolid 600 mg Tablet PO ×2 (10:11→20:37)
[2020-05-18] MEDS: ondansetron 2 mg/ML SDV 2 mL 4 MG IVP (11:01)
--- NOTE | 2020-05-18 13:40 | PM.PN ---
Subjective Subjective: Interval history: No acute events overnight. She is feeling a lot better. States her cough is better. Denies any nausea, vomiting, headache, dizziness. Patient has remained afebrile and hemodynamically stable. Vitals/I&O/Wt Last Vital Signs Temp 97.9 F 05/18/20 10:49 Pulse 104 H 05/18/20 10:49 Resp 20 H 05/18/20 10:49 BP 139/91 05/18/20 10:49 Pulse Ox 91 05/18/20 10:49 05/17/20 05/18/20 05/18/20 22:59 06:59 14:59 Intake Total 568 / 808 840 / 840 Output Total 2100 / 3600 2800 / 6400 250 / 250 Balance -1532 / -2792 -2800 / -5592 590 / 590 Weight last 48 hrs Weight 102.376 kg Weight 107.104 kg Weight 107.411 kg Physical Exam Narrative: EXAM NARRATIVE: General: No acute distress, AO x3, obese, more awake today. HEENT: PERRLA, pupils bilaterally equal and reactive Chest: Bilateral expiratory wheeze improving than yesterday, bilateral bronchial breath sounds, equal air entry all over the lung hernandez, no localized subcutaneous crepitus present, mild localized tenderness present in the right arm, no bruise, no blister no skin changes. CVS: S1-S2 regular, no murmurs, no tachycardia, no gallops, no rubs Abdomen: Soft, nontender, no organomegaly, bowel sounds present Neuro: No focal deficits, no facial deformity, AO x3, power 5/5 in all limbs Data : 05/17/20 10:22 05/17/20 10:22 Micro: Microbiology 05/14/20 06:26 Blood Culture - Preliminary Blood Staphylococcus hominis A&P Assessment and plan (1) Subcutaneous air: CTA done concerning for subcutaneous air dissecting the soft tissue on the right side involving the arm and chest including pectoralis muscle. CT discussed in detail with Dr. Darnell from radiology. She states it is quite possibly related to her recent PICC line but because of presence of some bubbles cannot rule out necrotizing fasciitis versus thrombophlebitis. Patient was seen by Dr. Nixon from surgery and necrotizing fasciitis has been ruled out as patient does not have any clinical findings on examination and has remained hemodynamically stable, afebrile with no leukocytosis. Right upper limb Doppler suggestive of basilic vein thrombosis. Status: Acute (2) Gram-positive cocci in clusters: 2 out of 4 bottles positive for staph hominis. Repeat blood cultures have remained negative. MRSA negative. PICC line from 04/27 also positive for staph epidermidis along with other staph colonies. Echocardiogram negative for infective endocarditis though patient does have possible echodensity in left atria. As patient's blood cultures have remained negative and the culture from blood is not the same from culture from PICC line counts of infective endocarditis are low. Will not go ahead with HANY for now. Patient's culture sensitive to Augmentin and linezolid. Unfortunately patient is allergic to penicillin. We will start patient on linezolid for overall 4 weeks. Patient might need weekly labs, possible blood culture as an outpatient. Patient will possibly require to follow-up with ID as an outpatient as patient is also been worked up for possible port as an outpatient. Will consult ID for further recommendations. Status: Acute (3) Respiratory failure with hypoxia: At home patient is on 3 to 4 L of oxygen supplementation. At present saturation 95% on 2 L nasal cannula. Could be multiple etiologies. Most likely because of bronchitis leading to exacerbation of asthma. CT scan reviewed. Has ruled out PE and TRALI. Chances of pneumonia are less. Today is day 5 of Levaquin. We will stop Levaquin after today. We will continue linezolid as above. proBNP elevated. Echocardiogram consistent with EF 57% with diastolic dysfunction. Patient is diuresed around 6 L yesterday and is feeling better. We will continue IV diuresis for 1 more day. Strict input output charting. Have asked nursing staff for strict output charting. Daily weights. Continue with prednisone 40 mg oral daily. Patient will require slow taper as an outpatient. Continue Flonase, DuoNeb's and budesonide. Oxygen supplementation keeping saturation over 90%. Tessalon Perles 100 mg 3 times daily scheduled, Robitussin DM every 4 hours as needed. Status: Acute Qualifiers: Chronicity: acute Qualified Code(s): J96.01 - Acute respiratory failure with hypoxia (4) Sepsis: Improved Status: Acute Qualifiers: Acute respiratory failure type: with hypoxia Sepsis acute organ dysfunction status: with acute organ dysfunction Sepsis type: sepsis due to unspecified organism Severe sepsis acute organ dysfunction type: acute respiratory failure Severe sepsis shock status: without septic shock Qualified Code(s): A41.9 - Sepsis, unspecified organism; R65.20 - Severe sepsis without septic shock; J96.01 - Acute respiratory failure with hypoxia (5) UTI (urinary tract infection): No growth so far -f/u urine cx -on IV antibiotics Status: Acute Qualifiers: Hematuria presence: with hematuria Urinary tract infection type: site unspecified Qualified Code(s): N39.0 - Urinary tract infection, site not specified; R31.9 - Hematuria, unspecified (6) Anemia: Follows up with Dr. Cr. Patient is intermittent transfusion dependent. Iron panel results appreciated. Continue with IV iron supplementation. Day 3/5 today. Hemoglobin stable. Monitor. Transfuse if falling below 7. Continue follow-up with hematology. Previously anticoagulated with Eliquis due to history of VTE. Due to anemia this was discontinued in the past. She states etiology of anemia is not known, but reports prior admission for GI bleed. Continue PPI. -Has known history of anemia with intermittent transfusion dependence -Follows up with Dr. Cr -Previously had a PICC line for transfusions, PICC line got infected and was subsequently removed. Long-term consideration for port placement. May need to be delayed currently for additional investigation of possible bacteremia. -Noted anemia, closely monitor hemoglobin, anticipate need for transfusion of blood products -has had GI workup done in 01/2020 with EGD showing GERD, hiatal hernia and gastritis Status: Chronic Qualifiers: Anemia type: unspecified type Qualified Code(s): D64.9 - Anemia, unspecified (7) COPD (chronic obstructive pulmonary disease): Clinically appears to be improving. Improving air entry bilaterally. -Oxygen dependent at baseline -Neb treatments as needed, decrease IV steroids -Follows up with Dr. Escalera Status: Acute Qualifiers: COPD type: COPD with acute exacerbation Qualified Code(s): J44.1 - Chronic obstructive pulmonary disease with (acute) exacerbation (8) Seizures: -Seizure precautions -Keppra Status: Chronic (9) Pulmonary nodule, right: -Surveillance imaging being done by Dr. Ventura; PET scan in 12/2017 showed no abnormal activity -Pending CT scan Status: Acute (10) Acute thrombosis of basilic vein: Status: Acute Additional A&P Information Chronic diastolic CHF with possibly mild exacerbation as notes recent lower extremity edema, although otherwise denies orthopnea. Continue Lasix. Monitor I&O, volume status. Resume oral Lasix; monitor for fluid overload particularly if need for transfusion of blood products. Echo (06/2019): EF=70%, no RWMA, trace to mild TR, trace [place] HTN-goal blood pressure less than 140/90 mmHg. Monitor vital signs Morbid obesity: BMI-40 kg/m2 Hypothyroidism; resume thyroid replacement; TSH elevated. Free T3 and T4 within normal limits. 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 Continue to monitor renal function, avoid nephrotoxins, renally dose meds -cardiac diet as tolerated -GI ppx with PPI -DVT ppx with SCDs; no AC due to acute anemia Dispo: home Code status: FULL code Protonix 40 mg twice daily for PUD prophylaxis. Attestations Medical Necessity Statement*: Gram-positive bacteremia, acute hypoxia Time Spent in Patient Care: Greater than 35 minutes (>than 50% of time spent in counselling and/or direct pt care on unit). Coding Level of Care Code Acute Watch Crystal Edge Grinder for Chg Fwd Diagnoses Subcutaneous air T79.7XXA Gram-positive cocci in clusters R68.89 Respiratory failure with hypoxia J96.01 Chronicity: acute Sepsis A41.9; R65.20; J96.01 Acute respiratory failure type: with hypoxia Sepsis acute organ dysfunction status: with acute organ dysfunction Sepsis type: sepsis due to unspecified organism Severe sepsis acute organ dysfunction type: acute respiratory failure Severe sepsis shock status: without septic shock UTI (urinary tract infection) N39.0; R31.9 Hematuria presence: with hematuria Urinary tract infection type: site unspecified Anemia D64.9 Anemia type: unspecified type COPD (chronic obstructive pulmonary disease) J44.1 COPD type: COPD with acute exacerbation Seizures R56.9 Pulmonary nodule, right R91.1 Acute thrombosis of basilic vein I82.619
--- NOTE | 2020-05-18 14:53 | PC.PT ---
PT note; physical therapy goals achieved, patient to continue independent ambulation with walker with nursing staff, and independent with home exercise program.
[2020-05-19] VITALS (17 sets, daily range): BP systolic 124–145; BP diastolic 63–78; PULSE 76–102; RESP 17–21; TEMP 36.6–36.8; O2SAT 81–95
[2020-05-19] MEDS: oxyCODONE 5 mg IR Tab/Cap PO ×3 (02:20→14:22)
[2020-05-19] MEDS: guaiFENesin-dextromethorphan UDC 10 mL PO ×2 (02:21→09:31)
[2020-05-19] MEDS: ipratropium-albuterol 3 mL Neb INHALATION ×2 (02:45→08:26)
[2020-05-19] MEDS: FUROsemide 10 mg/mL SDV 4mL 40 MG IVP (03:29)
[2020-05-19 05:12] LABS: Hematocrit 32.9 % (37.0-47.0); Hemoglobin 9.3 g/dL (11.5-15.3); Mean Corpuscular HGB Conc 28.3 g/dL (30.0-36.0); Mean Corpuscular Volume 88.4 fL (81-99); Mean Platelet Volume 9.7 fL (7.4-10.4); Platelet Count 263 10^3/cmm (130-400); Red Blood Count 3.72 10^6/uL (4.1-5.3); Red Cell Distribution Width 19.5 % (12.1-15.1); White Blood Count 9.9 10^3/uL (4.0-10.0)
[2020-05-19 05:46] LABS: Alanine Aminotransferase 10 U/L (0-33); Albumin Level 3.5 g/dL (3.5-5.2); Alkaline Phosphatase 93 IU/L (35-105); Anion Gap 14.5 (5-19); Aspartate Amino Transferase 6 U/L (0-32); Blood Urea Nitrogen 19 mg/dL (6-20); Calcium 7.9 mg/dL (8.5-10.5); Carbon Dioxide 32 mmol/L (22-29); Chloride 96 mmol/L (98-107); Glomerular Filtration Rate 53.7 mL/min (90-130); Glucose 124 mg/dL (65-115); Osmolality Calculated 292 mOsm/kg (285-295); Potassium 3.5 mmol/L (3.5-5.1); Sodium 139 mmol/L (136-145); Total Bilirubin 0.7 mg/dL (0.15-1.2); Total Protein 6.5 g/dL (6.6-8.7)
[2020-05-19] MEDS: sucralfate 1 gm Tablet PO ×2 (06:09→11:52)
[2020-05-19 06:43] LABS: Glucose Point of Care 112 mg/dL (70-110)
[2020-05-19 07:18] LABS: Slide Review Slide Review Perform
[2020-05-19 07:22] LABS: Absolute Segmented Neutrophil 6.9 10/cmm (1.6-7.1); Band Neutrophils Absolute 0.1 10^3/cmm (0.0-1.2); Lymphocytes 18 %; Monocytes Absolute 0.2 10^3/cmm (0.1-0.6); Polychromasia Trace; Segmented Neutrophils 70 %; Total Cells Counted 100 (0-100)
[2020-05-19 07:23] LABS: Anisocytosis 1+; Hypochromasia 1+; Platelet Estimate Normal (Normal); Poikilocytosis Trace
[2020-05-19] MEDS: budesonide 0.5 mg/2 mL Neb INHALATION (08:26)
--- NOTE | 2020-05-19 09:20 | PC.SOCIAL ---
IMM Updated Page 2 of IMM updated and given to patient. Initialed, dated, and timed and placed back in chart.
[2020-05-19] MEDS: levoFLOXacin 500 mg Tablet PO (09:26)
[2020-05-19] MEDS: pantoprazole DR 40 mg Tablet PO (09:26)
[2020-05-19] MEDS: levothyroxine 100 mcg Tablet 200 MCG PO (09:27)
[2020-05-19] MEDS: levETIRAcetam 500 mg Tablet 1000 MG PO (09:27)
[2020-05-19] MEDS: potassium chloride ER 10 mEq Tablet 20 MEQ PO (09:27)
[2020-05-19] MEDS: CLONazepam 0.5 mg Tablet PO ×2 (09:27→14:23)
[2020-05-19] MEDS: predniSONE 20 mg Tablet 40 MG PO (09:27)
[2020-05-19] MEDS: fluticasone nasal spray 16gm Btl 1 SPRAY NASAL (09:27)
[2020-05-19] MEDS: benzonatate 100 mg Capsule 200 MG PO ×2 (09:35→14:23)
[2020-05-19] MEDS: linezolid 600 mg Tablet PO (09:36)
[2020-05-19] MEDS: cetylpyridinium Lozenge 1 EACH MUCOUS MEM (09:36)
[2020-05-19] MEDS: iron sucrose 200 MG in sodium chloride 0.9% (100 ml) 100 ML 220 MG IV (11:51)
--- NOTE | 2020-05-19 12:31 | P.DS_ITS ---
Discharge Providers Date of Admission: 05/14/20 01:57 Date of Discharge: May 19, 2020 Attending Provider at Admission: Latha Matson MD Attending Provider at Discharge: Edgardo Alexander MD Consults: Surgery: Dr. Doe ID: Dr. Smith Primary Care Provider: Octaviano Sue MD Diagnoses at Discharge Discharge Diagnosis (1) Subcutaneous air: Status: Acute Problem details: On CTA done on 05/16- Subcutaneous air dissecting through the soft tissues around the RIGHT shoulder and over the RIGHT pectoralis muscle. (2) Gram-positive cocci in clusters: Status: Acute (3) Respiratory failure with hypoxia: Status: Acute Qualifiers: Chronicity: acute Qualified Code(s): J96.01 - Acute respiratory failure with hypoxia (4) Sepsis: Status: Acute Qualifiers: Acute respiratory failure type: with hypoxia Sepsis acute organ dysfunction status: with acute organ dysfunction Sepsis type: sepsis due to unspecified organism Severe sepsis acute organ dysfunction type: acute respiratory failure Severe sepsis shock status: without septic shock Qualified Code(s): A41.9 - Sepsis, unspecified organism; R65.20 - Severe sepsis without septic shock; J96.01 - Acute respiratory failure with hypoxia (5) UTI (urinary tract infection): Status: Acute Qualifiers: Hematuria presence: with hematuria Urinary tract infection type: site unspecified Qualified Code(s): N39.0 - Urinary tract infection, site not specified; R31.9 - Hematuria, unspecified (6) Anemia: Status: Chronic Qualifiers: Anemia type: unspecified type Qualified Code(s): D64.9 - Anemia, unspecified (7) COPD (chronic obstructive pulmonary disease): Status: Acute Problem details: -oxygen dependent Qualifiers: COPD type: COPD with acute exacerbation Qualified Code(s): J44.1 - Chronic obstructive pulmonary disease with (acute) exacerbation (8) Seizures: Status: Chronic (9) Pulmonary nodule, right: Status: Acute (10) Acute thrombosis of basilic vein: Status: Acute Reason for Visit Reason for Visit: sob Hospital Course Discharge Summary: Delores Mckeon, 44-year-old female with past medical history of CKD stage III, COPD on previous oxygen supplementation, pulmonary nodule, diastolic heart failure, recurrent anemia for which she is on recurrent blood transfusions through PICC line, history of DVT not on anticoagulation because of anemia, hypothyroidism, presence of IVC filter, seizure disorder and GERD, Recent PICC line infection which was removed on April 27 growing staph epidermidis presents to the ER on May 14 complaining of difficulty in breathing. On admission she was not a lot of respiratory distress for which she was put on BiPAP ventilation and transferred to the ICU. I started her started on broad-spectrum antibiotics for possible sepsis and blood cultures were done. For her acute on chronic respiratory failure multiple etiologies were possible. Pneumonia was ruled out with afebrile status, negative consolidation on chest imaging, PE was ruled out with CTA chest,TRALI was ruled out with CT chest. She also started on nebulization and steroids. She started feeling better and was moved out of the ICU. She has been saturating well on her baseline O2 supplementation for last 2 days but is been concerned with extensive cough. For cough along with acute on chronic hypoxic respiratory failure: She having COPD/asthma exacerbation due to post viral bronchitis. The cough is post viral bronchitis cough. Her symptoms are improving well with Flonase, steroid taper and nebulization. CT chest was concerning for possible subcutaneous air dissecting the soft tissue on the right side involving the arm and chest including pectoralis muscle. CT discussed in detail with Dr. Darnell from radiology. She states it is quite possibly related to her recent PICC line but because of presence of some bubbles cannot rule out necrotizing fasciitis versus thrombophlebitis. Necrotizing fasciitis was ruled out with a benign examination and surgical consultation. Patient remained hemodynamically stable and afebrile during the hospitalization. Right upper limb ultrasound was done which showed basilic vein thrombosis. Basilic vein being a superficial vein and patient and patient having a history of chronic anemia requiring recurrent blood transfusion report decided to treat patient conservatively and for her to repeat an upper limb ultrasound in 6 months. For possible PICC line infection: Her PICC line cultures from April 2016 grew staph epidermidis staph epidermidis. Her blood cultures grew 2 out of 4 for staph hominis. She was continued on vancomycin and repeat cultures have been negative. Echocardiogram was done to rule out endocarditis which was notable for EF of 50%, mildly dilated left atrium with some echodensities which are not attached, trace TR with PASP of 70 mmHg and grade 1 diastolic dysfunction. Unfortunately endocarditis could not be ruled out. Option of HANY versus antibiotic treatment for 6 weeks were discussed with the patient and she chose for antibiotic course for 6 weeks. Infectious disease was consulted as patient will need to be followed up with ID as an outpatient for possible port placement for further blood transfusion. Patient's antibiotics were changed to linezolid as per the culture sensitivities. Patient is been discharged in medically stable condition with home health for further rehabilitation on Flonase, steroid taper, nebulization, oral antibiotics for 6 weeks with advised to follow-up with ID in the next 2 weeks for surveillance blood cultures, weekly CBC while patient is on antibiotics which will be followed through ID, repeat right upper limb ultrasound and 2 to 3 months for follow-up of basilic vein thrombosis, follow-up with primary care provider within next 4 to 7 days. Physical Exam Narrative: EXAM NARRATIVE: General: No acute distress, AO x3, obese, more awake today. HEENT: PERRLA, pupils bilaterally equal and reactive Chest: Bilateral expiratory wheeze improving than yesterday, bilateral bronchial breath sounds, equal air entry all over the lung hernandez, no localized subcutaneous crepitus present, mild localized tenderness present in the right arm, no bruise, no blister no skin changes. CVS: S1-S2 regular, no murmurs, no tachycardia, no gallops, no rubs Abdomen: Soft, nontender, no organomegaly, bowel sounds present Neuro: No focal deficits, no facial deformity, AO x3, power 5/5 in all limbs Discharge Data Data Completed and Pending: Completed Studies During Hospitalization Category Date Time Status CT angio chest PE protcl [id number] Rose Marie kelly Cat Scan 05/16/20 19:53 Completed XR chest 1V nichole ble [id number] Stat Exams 05/13/20 20:26 Completed CV echo complete* [id number] Routine Ultrasound 05/16/20 09:24 [place] [id number] Routin e Ultrasound 05/17/20 10:31 Completed Pending at discharge Category Date Time Status Blood Culture Sta t Lab 05/14/20 06:20 Results Blood Culture Sta t Lab 05/15/20 15:39 Results Sputum Culture an d Gram Stain Sri bunch Lab 05/14/20 03:58 Uncollected Labs from last 24 hours 05/19/20 05/19/20 05/19/20 06:27 04:30 04:30 WBC 9.9 RBC 3.72 L Hgb 9.3 L Hct 32.9 L MCV 88.4 MCH 25.0 L MCHC 28.3 L RDW 19.5 H Plt Count 263 MPV 9.7 Lymph % (Auto) Not Reportable Vance % (Auto) Not Reportable Lymph # (Auto) Not Reportable Vance # (Auto) Not Reportable Total Counted 100 Absolute Neutrophi ls 7.0 H Segmented Neutroph ils 70 Abs Segm Neuts (Ma n) 6.9 Band Neutrophils 1.0 Abs Band Neuts (Ma n) 0.1 Lymphocytes (Manua l) 18 Monocytes (Manual) 2.0 Absolute Monocytes 0.2 Metamyelocytes 3.0 Myelocytes 6.0 Nucleated RBCs 2.0 H Platelet Estimate Normal Polychromasia Trace Hypochromasia 1+ H Poikilocytosis Trace Anisocytosis 1+ H Sodium 139 Potassium 3.5 Chloride 96 L Carbon Dioxide 32 H Anion Gap 14.5 BUN 19 Creatinine 1.1 H GFR Calculation 53.7 L Glucose 124 H POC Glucose 112 Calculated Osmolal ity 292 Calcium 7.9 L Total Bilirubin 0.7 AST 6 ALT 10 Alkaline Phosphata se 93 Total Protein 6.5 L Albumin 3.5 Globulin 3.0 Vitals: Last Vital Signs Temp 98.0 F 05/19/20 11:45 Pulse 101 H 05/19/20 11:45 Resp 18 05/19/20 11:45 BP 144/75 05/19/20 11:45 Pulse Ox 92 05/19/20 11:00 Discharge Plan Discharge Patient Disposition: Home Health Service Condition: Stable Prescriptions: New sucralfate 1 gram Tablet 1 g PO AC&BEDTIME Qty: 15 RF: 0 dextromethorphan-guaifenesin 10-100 mg/5 mL Syrup 10 ml PO Q4H PRN (Reason: Cough) Qty: 30 RF: 0 linezolid 600 mg Tablet 600 mg PO Q12H 28 Days Qty: 56 RF: 0 benzonatate 100 mg Capsule 200 mg PO TID Qty: 20 RF: 0 pantoprazole 40 mg Tablet,Delayed Release (Dr/Ec) 40 mg PO BID Qty: 20 RF: 0 menthol 1.7 mg lozenge 1.7 mg MUCOUS MEM Q4H PRN (Reason: sore throat) Qty: 20 RF: 0 Flonase Allergy Relief 50 mcg/actuation spray,suspension 1 spray INTRANASAL BID Qty: 9.9 RF: 0 prednisone 10 mg tablet See Rx Instructions .ROUTE .COMPLEX Qty: 42 RF: 0 budesonide 0.25 mg/2 mL suspension for nebulization 0.25 mg INHALATION BID Qty: 60 RF: 0 ipratropium-albuterol 0.5 mg-3 mg(2.5 mg base)/3 mL solution for nebulization 3 ml INHALATION Q6H Qty: 15 RF: 0 ferrous sulfate 325 mg (65 mg iron) tablet,delayed release (DR/EC) 325 mg PO BID Qty: 30 RF: 0 Continued furosemide 40 mg tablet 40 mg PO BID Qty: 60 RF: 8 albuterol sulfate 90 mcg/actuation HFA aerosol inhaler 2 inh INHALATION Q4H PRN (Reason: shortness of breath or wheezing) Qty: 6.7 RF: 0 albuterol sulfate 0.63 mg/3 mL solution for nebulization 0.63 mg INHALATION TID 30 Days Qty: 270 RF: 3 oxycodone 5 mg tablet 5 mg PO Q6H PRN (Reason: pain) 14 Days Qty: 10 RF: 0 levothyroxine 200 mcg capsule 200 mcg PO DAILY RF: 0 liothyronine [Cytomel] 25 mcg tablet 25 mcg PO DAILY RF: 0 epinephrine [EpiPen 2-Tim] 0.3 mg/0.3 mL auto-injector 0.3 mg IM ONCE RF: 0 promethazine 25 mg suppository 25 mg [place] Q6H PRN (Reason: if unable to take PO zofran ) RF: 0 clonazepam 0.5 mg tablet 0.5 mg PO TID RF: 0 levetiracetam [Keppra] 500 mg tablet 1,000 mg PO BID RF: 0 Incruse Ellipta 62.5 mcg/actuation blister with device 1 inh INHALATION DAILY Qty: 30 RF: 3 Spiriva Respimat 2.5 mcg/actuation mist 2 puff INHALATION QAM 90 Days Qty: 4 RF: 2 potassium chloride [Klor-Con M20] 20 mEq tablet,ER particles/crystals 20 meq PO BID Qty: 30 RF: 0 ondansetron 4 mg film 4 mg PO DAILY PRN (Reason: nausea and vomiting) Qty: 10 RF: 0 sucralfate [Carafate] 1 gram tablet 1 gm PO Q6H Qty: 30 RF: 0 Discontinued pantoprazole 40 mg tablet,delayed release (DR/EC) 40 mg PO BID Qty: 60 RF: 0 Discharge Orders: Discharge Order (Routine); Ordered 05/19/20 Ordered By: Edgardo Alexander Other Ambulatory Orders: Complete Blood Count w/Auto (WEEKLY) Timeframe: 20200609 Location: Determined by Patient Ordered By: Edgardo Alexander Complete Blood Count w/Auto (WEEKLY) Timeframe: 20200610 Location: Determined by Patient Ordered By: Edgardo Alexander Complete Blood Count w/Auto (WEEKLY) Timeframe: 20200611 Location: Determined by Patient Ordered By: Edgardo Alexander Complete Blood Count w/Auto (WEEKLY) Timeframe: 20200612 Location: Determined by Patient Ordered By: Edgardo Alexander Complete Blood Count w/Auto (WEEKLY) Timeframe: 20200613 Location: Determined by Patient Ordered By: Edgardo Alexander DME: Walker (Order) Location: None Selected Ordered By: Edgardo Alexander [place] [facility] [place] [facility] [Outside] Octaviano Sue MD [Primary Care Provider] - 05/25/20 2:30 pm Klaudia Smith MD [Hospitalist] - 06/07/20 10:45 am Discharge Diet: Usual diet, Cardiac and Low Salt Discharge Activity: Resume usual activity and Increase activity as tolerated Patient Instructions: Benzonatate (By mouth), Sucralfate (By mouth), Prednisone (By mouth), Budesonide (By breathing), Pantoprazole (By mouth), Menthol (By mouth), Dextromethorphan/Guaifenesin/Phenylephrine (By mouth), Ascorbic Acid/Cyanocobalamin/Ferrous Fumarate (By mouth), Hypoxia (GEN), Venous Thromboembolism (DC) Activity Restrictions/Additional Instructions: Linezolid and the antibiotic which you need to be on for 4 weeks. Linezolid can cause drop in the hemoglobin so CBC needs to be checked every week. Port to be put in only after confirmation from ID. Please check CBC weekly while being on antibiotics. Please check CMP in 1 week with a primary care provider. Please follow-up in ID clinic in 2 weeks for repeat blood cultures. Repeat right limb ultrasound in 2 months for follow up of basilic vein thrombosis Discharge Date/Time: 05/19/20 15:33 Discharge Attestations Time Spent in Discharge Care*: greater than 30 min Specific Discharge Activities: Specific discharge activities: educating patient, discussing with pcp/other providers, discussing with bilingual patient support caseworker/social workers/dc planners, documenting/other paperwork and evaluating patient/reviewing data Status at Discharge: Cognitive status at discharge: cognitively intact , Beh avioral status at discharge: cooperative , Functional status at discharge: uses cane/walker Overall status at discharge: patient is progressing back to baseline Quality Metrics Clinical Quality Measures During this hospital stay, did patient experience: None Coding Level of Care Code Acute Fur Finisher Seamstress for Chg Fwd Diagnoses Subcutaneous air T79.7XXA Gram-positive cocci in clusters R68.89 Respiratory failure with hypoxia J96.01 Chronicity: acute Sepsis A41.9; R65.20; J96.01 Acute respiratory failure type: with hypoxia Sepsis acute organ dysfunction status: with acute organ dysfunction Sepsis type: sepsis due to unspecified organism Severe sepsis acute organ dysfunction type: acute respiratory failure Severe sepsis shock status: without septic shock UTI (urinary tract infection) N39.0; R31.9 Hematuria presence: with hematuria Urinary tract infection type: site unspecified Anemia D64.9 Anemia type: unspecified type COPD (chronic obstructive pulmonary disease) J44.1 COPD type: COPD with acute exacerbation Seizures R56.9 Pulmonary nodule, right R91.1 Acute thrombosis of basilic vein I82.619
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
== END 2020-05-19 15:33 | disposition home health service (06) | DRG 871 ==
LOC: ER 20:49 → ICU 05-14 02:28 → MEDSURG 05-14 15:22
PROVIDERS: Internal Medicine; Admitting Provider Family Medicine; Emergency Provider Emergency Medicine; PCP Internal Medicine; Visit Provider Student in an Organized Health Care Education/Training Program
DX: A41.9 Sepsis, unspecified organism (principal); J96.01 Acute respiratory failure with hypoxia; J44.1 Chronic obstructive pulmonary disease with (acute) exacerbation; N39.0 Urinary tract infection, site not specified; I82.619 Acute embolism and thrombosis of superficial veins of unspecified upper extremity; R91.1 Solitary pulmonary nodule; R56.9 Unspecified convulsions; R31.9 Hematuria, unspecified; R65.20 Severe sepsis without septic shock; Z99.81 Dependence on supplemental oxygen; N18.3 Chronic kidney disease, stage 3 (moderate); D63.1 Anemia in chronic kidney disease; Z86.19 Personal history of other infectious and parasitic diseases; E03.9 Hypothyroidism, unspecified; Z91.5 Personal history of self-harm; F31.9 Bipolar disorder, unspecified
CPT/HCPCS: 12345; 36415; 36416; 36600; 51701; 51702; 71045; 71275; 80051; 80053; 80202; 80307; 81001; 81003; 82803; 82810; 82962; 83540; 83550; 83735; 83880; 83986; 84439; 84443; 84481; 84484; 85007; 85025; 85610; 86403; 87040; 87077; 87086; 87186; 87205; 87426; 87449; 87635; 87641; 93005; 93306; 93971; 94640; 94660; 96375; 97116; 97161; 97530; 99284; J0743; J1170; J1200; J1756; J1940; J1956; J2060; J2270; J2405; J2920; J2930; J3370; J3535; J7030; J7040; J7050; J7512; J7626; J7644; Q9967

== ENCOUNTER 2020-05-29 07:32 | Inpatient (IN) | payer MEDICARE, MEDICAID, SELFPAY ==
[2020-05-29] VITALS (14 sets, daily range): BP systolic 113–161; BP diastolic 71–98; PULSE 67–100; RESP 14–22; TEMP 36.3–36.8; O2SAT 91–100; BMI 39.8
--- NOTE | 2020-05-29 07:59 | USR_ITS ---
PROCEDURE INFORMATION: Exam: US Duplex Lower Extremity Veins, Bilateral Exam date and time: 05/29/2020 8:02 AM Age: 44 years old Clinical indication: Swelling (edema) of limb; Lower extremity, bilateral; Additional info: Leg swelling TECHNIQUE: Imaging protocol: Real-time duplex ultrasound of the extremities with 2-D gutierrez scale, color Doppler flow and spectral waveform analysis with image documentation. Complete exam focused on the bilateral lower extremity veins. COMPARISON: No relevant prior studies available. FINDINGS: Right deep veins: No deep venous thrombosis in the visualized right common femoral, profunda femoris, superficial femoral, popliteal, or peroneal veins. Right superficial veins: Saphenofemoral junction is patent without thrombus. Left deep veins: No deep venous thrombosis in the visualized left common femoral, profunda femoris, superficial femoral, popliteal, or peroneal veins. Left superficial veins: Saphenofemoral junction is patent without thrombus. Lymph nodes: Subcentimeter lymph nodes. Soft tissues: Prominent subcutaneous edema. US/CV venous duplex [facility] [id number] IMPRESSION: No deep venous thrombosis in the visualized bilateral lower extremities.
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
[2020-05-29 08:22] LABS: Basophils % 0.3 %; Eosinophils # 0.1 10^3/uL (0.0-0.8); Hematocrit 35.9 % (37.0-47.0); Hemoglobin 10.7 g/dL (11.5-15.3); Lymphocytes # 0.9 10^3/uL (0.8-4.8); Lymphocytes % 8.6 %; Mean Corpuscular HGB Conc 29.8 g/dL (30.0-36.0); Mean Corpuscular Hemoglobin 26.3 pg (28.0-34.0); Mean Corpuscular Volume 88.2 fL (81-99); Mean Platelet Volume 8.8 fL (7.4-10.4); Monocytes # 0.9 10^3/uL (0.2-0.9); Monocytes % 8.7 %; Neutrophils # 8.27 10^3/uL (1.8-7.7); Neutrophils % 81.2 %; Nucleated Red Blood Cells % 0 %; Platelet Count 164 10^3/cmm (130-400); Red Blood Count 4.07 10^6/uL (4.1-5.3); Red Cell Distribution Width 23.3 % (12.1-15.1); White Blood Count 10.2 10^3/uL (4.0-10.0)
[2020-05-29] MEDS: sodium chloride 0.9% 500 ML 999 ML IV (08:57)
[2020-05-29] MEDS: ondansetron 2 mg/ML SDV 2 mL 4 MG IVP ×3 (08:57→19:19)
--- NOTE | 2020-05-29 08:57 | PC.NURSE ---
Read and agree with assessment.
[2020-05-29 09:03] LABS: Alanine Aminotransferase 34 U/L (0-33); Albumin Level 3.6 g/dL (3.5-5.2); Alkaline Phosphatase 206 IU/L (35-105); Anion Gap 15.1 (5-19); Aspartate Amino Transferase 19 U/L (0-32); Blood Urea Nitrogen 10 mg/dL (6-20); Calcium 7.5 mg/dL (8.5-10.5); Carbon Dioxide 25 mmol/L (22-29); Chloride 102 mmol/L (98-107); Globulin 2.6 g/dL (1.3-4.6); Glomerular Filtration Rate 90.5 mL/min (90-130); Glucose 122 mg/dL (65-115); Osmolality Calculated 286 mOsm/kg (285-295); Potassium 4.1 mmol/L (3.5-5.1); Sodium 138 mmol/L (136-145); Total Bilirubin 2.6 mg/dL (0.15-1.2); Total Protein 6.2 g/dL (6.6-8.7)
[2020-05-29 09:48] LABS: SARS Covid-2 Antigen Negative (Negative)
--- NOTE | 2020-05-29 09:48 | XRR_ITS ---
PROCEDURE INFORMATION: Exam: XR Chest, 1 View Exam date and time: 05/29/2020 9:48 AM Age: 44 years old Clinical indication: Dyspnea; Additional info: Dyspnea/cough TECHNIQUE: Imaging protocol: XR of the chest Views: 1 view. COMPARISON: CR XR chest 1V portable [id number] 05/13/2020 9:16 PM FINDINGS: Lungs: Asymmetric left basilar airspace/pleural disease. Interstitial prominence. Heart/Mediastinum: Hiatal hernia. Borderline cardiomegaly. Bones/joints: Healing right rib fracture. XR/XR chest 1V portable [id number] IMPRESSION: 1. Asymmetric left basilar airspace/pleural disease. 2. Additional findings as described above.
--- NOTE | 2020-05-29 10:16 | CTR_ITS ---
PROCEDURE INFORMATION: Exam: CT Angiography Chest With Contrast Exam date and time: 05/29/2020 11:15 AM Age: 44 years old Clinical indication: Cough and dyspnea; Additional info: Dyspena TECHNIQUE: Imaging protocol: Computed tomographic angiography of the chest with intravenous contrast. 3D rendering (Not supervised by radiologist): MIP and/or 3D reconstructed images were created by the technologist. Radiation optimization: All CT scans at this facility use at least one of these dose optimization techniques: automated exposure control; mA and/or kV adjustment per patient size (includes targeted exams where dose is matched to clinical indication); or iterative reconstruction. Contrast material: OMNIPAQUE 350; Contrast volume: 95 ml; Contrast route: INTRAVENOUS (IV); COMPARISON: CT angio chest PE protcl [id number] 05/16/2020 2:03 PM RADIATION DOSE METRICS: Total DLP (mGy-cm): 532.95 FINDINGS: Pulmonary arteries: Evaluation of pulmonary emboli is limited due to suboptimal opacification of the pulmonary arteries, related to bolus timing. Pulmonary emboli are suspected in the left upper lobe (series 2: Image 122) , proximal right pulmonary artery (series 2: Image 196), and right lower lobe (series 2: Image 221). Aorta: Uniform opacification and normal caliber of the thoracic aorta. Lungs: Interstitial prominence, bronchial wall thickening, and mild airspace disease. Stable 1.3 cm cavitary nodule in the right lower lobe, immediately posterior to the right major fissure. For both low risk and high risk patients, consider CT Chest at 3 months, PET/CT, or biopsy. (Reference: [facility]). Pleural space: No significant pleural effusion. Heart: Borderline cardiomegaly. Mediastinal space: Large hiatal hernia. Lymph nodes: Subcentimeter lymph nodes. Upper abdomen: Hepatosplenomegaly and fatty infiltration of the liver. Status post cholecystectomy. Nonobstructing left renal calculi. Subtle infiltration of peripancreatic fat, suspicious for pancreatitis. Clinical correlation recommended. Bones/joints: Old right rib fracture. Marginal osteophytes and Schmorl's nodes. CT/CT angio chest PE protcl [id number] IMPRESSION: 1. Evaluation of pulmonary emboli is limited due to suboptimal opacification of the pulmonary arteries, related to bolus timing. Pulmonary emboli are suspected in the left upper lobe (series 2: Image 122) , proximal right pulmonary artery (series 2: Image 196), and right lower lobe (series 2: Image 221). 2. Interstitial prominence, bronchial wall thickening, and mild airspace disease. 3. Stable 1.3 cm cavitary nodule in the right lower lobe, immediately posterior to the right major fissure. 4. Subtle infiltration of peripancreatic fat, suspicious for pancreatitis. Clinical correlation recommended. 5. Additional findings as described above. THIS REPORT CONTAINS FINDINGS THAT MAY BE CRITICAL TO PATIENT CARE. The findings were verbally communicated via telephone conference with Luis Alberto Lambert at 12:27 PM CDT on 05/29/2020. The findings were acknowledged and understood. Radiation Dose CTDIVOL = (mGy): DLP = 532.95 (mGy-cm)
[2020-05-29 10:39] LABS: Fibrinogen 293 mg/dL (174-498)
[2020-05-29 11:01] LABS: C Reactive Protein 6.8 mg/L (0.0-4.9); Ferritin 150 ng/mL (15-150); Lactate Dehydrogenase 318 U/L (135-214)
[2020-05-29] MEDS: iohexol 350 mg/mL 100 mL Btl IV (12:12)
[2020-05-29] MEDS: ketorolac 30 mg/mL INJ IVP (12:14)
[2020-05-29 13:02] LABS: Lipase 212 U/L (13-60)
[2020-05-29] MEDS: HYDROmorphone 1 mg/mL INJ 1 mL IVP (13:50)
[2020-05-29] MEDS: promethazine 25 mg/mL SDV 1 mL IM (13:55)
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
--- NOTE | 2020-05-29 14:28 | USR_ITS ---
PROCEDURE INFORMATION: Exam: US Abdomen, Limited; Right Upper Quadrant Exam date and time: 05/29/2020 3:29 PM Age: 44 years old Clinical indication: Abdominal pain; Epigastric; Prior surgery; Surgery date: 6+ months; Surgery type: Gb; Additional info: Pancreatitis. Right upper quadrant. Please evaluate liver, biliary system and gallbladder. TECHNIQUE: Imaging protocol: US abdomen. Real time ultrasound with image documentation. Limited exam focused on the right upper quadrant. COMPARISON: 1. US gall bladder [id number] 08/19/2014 8:19 AM 2. US Abdomen* [id number] 06/05/2019 6:04:44 AM FINDINGS: Liver: Hepatic steatosis. No masses. Gallbladder: Cholecystectomy. Common bile duct: Dilated, maximum 12 mm. No significant intrahepatic ductal dilatation. Pancreas: Not visualized. Right kidney: No hydronephrosis. US/US abdomen limited [id number] IMPRESSION: Nonspecific biliary ductal dilatation status post cholecystectomy. Consider follow-up MRCP if indicated.
[2020-05-29 15:05] LABS: INR 1.06 (0.8-1.2)
[2020-05-29 15:06] LABS: Partial Thromboplastin Time 28.3 SECONDS (23.9-36.7)
[2020-05-29] MEDS: ipratropium-albuterol 3 mL Neb INHALATION (15:08)
--- NOTE | 2020-05-29 15:14 | PC.NURSE ---
This nurse in to introduce self and assume care of patient, radiology completing Ultrasound right now, introduced self, no distress noted.
[2020-05-29 15:19] LABS: Procalcitonin 0.16 ng/mL (0-0.5)
--- NOTE | 2020-05-29 16:02 | PC.NURSE ---
Dr. Whitt notified of pain level of 10/10, discussed patient allergies, patient reports, I can take morphine and dilaudid without any problem or allergic reaction. New order received for morphine PRN, see MAR for further details.
[2020-05-29] MEDS: pantoprazole 40 mg SDV IVP (16:34)
[2020-05-29] MEDS: morphine 4 mg/mL SDV 1 mL 2 MG IVP ×3 (16:35→22:09)
[2020-05-29] MEDS: sodium chloride 0.9% 1,000 ML 100 ML IV ×2 (16:40→23:36)
[2020-05-29] MEDS: levETIRAcetam 500 mg Tablet 1000 MG PO (16:43)
[2020-05-29] MEDS: sucralfate 1 gm Tablet PO ×2 (16:43→19:11)
[2020-05-29] MEDS: fluticasone nasal spray 16gm Btl 1 SPRAY INTRANASAL (16:43)
[2020-05-29 17:21] LABS: Alcohol Level < 10 mg/dL (0-10)
--- NOTE | 2020-05-29 17:23 | PC.NURSE ---
Dr. Whitt new orders for no bolus of heparin on initiation, just start maintenance, per protocol, see MAR for further details.
[2020-05-29] MEDS: heparin drip 25,000 UNIT/500 ML PREMIX 28.6 UNIT IV (17:33)
[2020-05-29] MEDS: linezolid premix 600 MG/300 ML PREMIX 300 MG IV (17:34)
--- NOTE | 2020-05-29 18:39 | PC.NURSE ---
patient resting with eyes closed, equal rise and fall of chest
[2020-05-29] MEDS: albuterol 8 gm MDI 2 PUFF INHALATION (20:53)
[2020-05-29] MEDS: LORazepam 2 mg/mL INJ 1 mL 1 MG IVP (23:30)
[2020-05-30] VITALS (19 sets, daily range): BP systolic 104–184; BP diastolic 69–80; PULSE 71–109; RESP 14–20; TEMP 36.6–37; O2SAT 96–100
[2020-05-30 00:10] LABS: Partial Thromboplastin Time 107.4 SECONDS (23.9-36.7)
[2020-05-30] MEDS: morphine 4 mg/mL SDV 1 mL 2 MG IVP ×7 (00:59→22:12)
[2020-05-30] MEDS: ondansetron 2 mg/ML SDV 2 mL 4 MG IVP ×3 (00:59→14:33)
[2020-05-30] MEDS: pantoprazole 40 mg SDV IVP ×2 (02:04→14:32)
[2020-05-30] MEDS: albuterol 8 gm MDI 2 PUFF INHALATION ×4 (02:35→20:03)
[2020-05-30 03:43] LABS: Amphetamines Screen Urine Negative (Negative); Barbiturates Screen Urine Negative (Negative); Benzodiazepines Screen Urine Negative (Negative); Cocaine Screen Urine Negative (Negative); Opiate Screen Urine Positive (Negative); PCP Screen Urine Negative (Negative); THC Screen Urine Negative (Negative)
[2020-05-30] MEDS: linezolid premix 600 MG/300 ML PREMIX 300 MG IV ×2 (03:50→14:33)
[2020-05-30] MEDS: sucralfate 1 gm Tablet PO ×4 (05:32→19:58)
[2020-05-30 06:08] LABS: Basophils % 0.6 %; Eosinophils # 0.2 10^3/uL (0.0-0.8); Eosinophils % 4.4 %; Hematocrit 27.3 % (37.0-47.0); Lymphocytes # 0.7 10^3/uL (0.8-4.8); Lymphocytes % 12.4 %; Mean Corpuscular HGB Conc 29.3 g/dL (30.0-36.0); Mean Corpuscular Hemoglobin 26.3 pg (28.0-34.0); Mean Corpuscular Volume 89.8 fL (81-99); Mean Platelet Volume 11.4 fL (7.4-10.4); Monocytes # 0.5 10^3/uL (0.2-0.9); Monocytes % 9.2 %; Neutrophils # 3.82 10^3/uL (1.8-7.7); Nucleated Red Blood Cells % 0 %; Platelet Count 121 10^3/cmm (130-400); Red Blood Count 3.04 10^6/uL (4.1-5.3); Red Cell Distribution Width 23.1 % (12.1-15.1); White Blood Count 5.2 10^3/uL (4.0-10.0)
[2020-05-30 06:26] LABS: Lipase 131 U/L (13-60); Magnesium 1.4 mg/dL (1.7-2.3)
[2020-05-30 06:27] LABS: Alanine Aminotransferase 19 U/L (0-33); Albumin Level 2.7 g/dL (3.5-5.2); Alkaline Phosphatase 151 IU/L (35-105); Anion Gap 11.5 (5-19); Aspartate Amino Transferase 10 U/L (0-32); Blood Urea Nitrogen 8 mg/dL (6-20); Calcium 6.9 mg/dL (8.5-10.5); Carbon Dioxide 24 mmol/L (22-29); Chloride 104 mmol/L (98-107); Glomerular Filtration Rate 77.6 mL/min (90-130); Glucose 112 mg/dL (65-115); Osmolality Calculated 281 mOsm/kg (285-295); Potassium 3.5 mmol/L (3.5-5.1); Sodium 136 mmol/L (136-145); Total Bilirubin 1.6 mg/dL (0.15-1.2); Total Protein 4.7 g/dL (6.6-8.7)
[2020-05-30] MEDS: levETIRAcetam 500 mg Tablet 1000 MG PO ×2 (08:27→17:56)
[2020-05-30] MEDS: levothyroxine 100 mcg Tablet 200 MCG PO (08:27)
[2020-05-30] MEDS: folic acid 1 mg Tablet PO (08:28)
[2020-05-30] MEDS: multivitamin therapeutic Tablet 1 TAB PO (08:28)
[2020-05-30] MEDS: fluticasone nasal spray 16gm Btl 1 SPRAY INTRANASAL ×2 (08:47→17:55)
--- NOTE | 2020-05-30 08:49 | PC.NURSE ---
Rechecked blood pressure due to high charted reading, blood pressure 116/70
[2020-05-30] MEDS: sodium chloride 0.9% 1,000 ML 100 ML IV (10:03)
[2020-05-30 10:42] LABS: Add Urine Culture? No; Bacteria Urine TRACE /hpf; Bilirubin Urine Neg (Negative); Blood Urine Neg (Negative); Glucose Urine UA Norm (Normal); Ketones Urine Negative (Negative); Leukocyte Esterase Urine Negative (Negative); Nitrate Urine Negative (Negative); Protein Urine Neg (Negative); Squamous Epithelial Cell Urine 0-4 /hpf (0-5); Urine Appearance Clear (CLEAR); Urine Color Dark Yellow (Yellow); Urobilinogen Urine 1 mg/dL (Negative); WBC Urine 0-4 /hpf (0-5); pH Urine 7 (5-7)
--- NOTE | 2020-05-30 11:35 | PC.NURSE ---
Patient requesting fluids, notified Dr. Smith, new order received for clear liquid diet. see orders for further details.
[2020-05-30 13:01] LABS: Partial Thromboplastin Time 53.4 SECONDS (23.9-36.7)
[2020-05-30] MEDS: heparin drip 25,000 UNIT/500 ML PREMIX 27 UNIT IV (13:25)
--- NOTE | 2020-05-30 14:40 | PC.NURSE ---
patient reports pain 10/10 with nausea to abdomen, administered morphine PRN and zofran PRN, see MAR for further details, patient resting with eyes closed within 5 minutes after administration of medication. Call light in reach, side rails up X2
[2020-05-30] MEDS: HYDROmorphone 1 mg/mL INJ 1 mL 0.5 MG IVP ×2 (16:00→19:54)
[2020-05-30] MEDS: enoxaparin 100 mg/mL Syringe SUBCUT (16:02)
--- NOTE | 2020-05-30 17:12 | PM.PN ---
Subjective Subjective: Interval history: Continues to complain of epigastric bandlike pain radiating into the back. Still with significant nausea, no vomiting. Continues with supplemental O2 at 4 L/min, maintaining O2 sats of 98%. 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 SAFETY SCIENTIST: no focal neuro deficits Data : 05/30/20 05:30 05/30/20 05:30 Micro: Microbiology 05/29/20 14:40 Blood Culture - Preliminary Blood NEGATIVE TO DATE 05/29/20 14:35 Blood Culture - Preliminary Blood NEGATIVE TO DATE 05/30/20 03:52 Gram Stain - Final Sputum - Expectorated Sputum A&P Additional A&P Information 54-year-old female with complicated past medical history including thrombophilia, DVTs, COPD, on home oxygen, previous pancreatitis, EtOH, upper GI bleeding, peptic ulcer disease, endocarditis and bacteremia for which she is currently on linezolid who is presenting with abdominal pain, nausea and vomiting, and shortness of breath. The patient has PE. She has history of thrombophilia but not on anticoagulation currently due to remote history of GI bleeding. She has IVC filter. I had a very long discussion with the patient regarding risks and benefits of anticoagulation. She agreed that at this point probably we should start the anticoagulation and monitor for any signs of blood loss. After discussion with hematology and the patient, she has agreed to be placed back on Lovenox. States that she was on this medication for the last 2 years and eventually discontinued during an episode of acute GI bleeding when she was actively drinking. Will discontinue heparin drip and place her back on anticoagulation with Lovenox and monitor very closely her hemoglobin. Currently her bowel movements are nonbloody. Check anti-X a levels. History of peptic ulcer disease and upper GI bleeding. I will switch her PPI to IV twice daily and continue home Carafate. We will monitor her anemia daily. If we detect any signs of bleeding or hemodynamic compromise level need to reassess the treatments and consider stopping Lovenox. Acute pancreatitis. The patient denies recent alcohol. She states that her last alcohol intake was about 2 months ago. She wishes to try clear liquid today and her diet will be advanced in accordance. Hold IV fluids for now as patient is developing bilateral dependent edema.. I will order right upper quadrant ultrasound to rule out biliary problems or cholecystitis/cholelithiasis. We will continue pain management. We will continue monitoring and replacing her electrolytes. Possible history of alcohol. I will start her on CIWA protocol. We will start thiamine replacement. She does have history of diastolic congestive heart failure. Holding home Lasix dosing. Stop IV fluids. Patient wishes to try p.o. clears which we have started. History of COPD. No evidence of acute exacerbation. Continue home medications. History of bacteremia and endocarditis. Stop linezolid. Switch to IV vancomycin History of seizure disorder. We will continue her home medication. The patient wants to be full code. The plan of care was discussed with the patient. She verbalized understanding and agreement. Attestations Medical Necessity Statement*: Switching patient from IV heparin to Lovenox, high risk of GI bleeding needs close monitoring, acute pancreatitis, starting p.o. clears today, diastolic CHF starting to appear fluid overloaded, discontinuing IV fluids today and careful diuresis if needed. Coding Level of Care Code Acute Pyrotechnics Press Tender for Janeen Ray
[2020-05-30 18:35] LABS: Partial Thromboplastin Time 49.9 SECONDS (23.9-36.7)
[2020-05-30 19:32] LABS: Quest SARS-CoV-2 RNA NOT DETECTED (NOT DETECTED)
[2020-05-31] VITALS (18 sets, daily range): BP systolic 105–132; BP diastolic 68–85; PULSE 71–105; RESP 14–18; TEMP 36.4–37.2; O2SAT 96–100; BMI 39.4
[2020-05-31] MEDS: HYDROmorphone 1 mg/mL INJ 1 mL 0.5 MG IVP ×3 (00:23→21:49)
[2020-05-31] MEDS: ondansetron 2 mg/ML SDV 2 mL 4 MG IVP ×3 (00:23→21:49)
[2020-05-31] MEDS: albuterol 8 gm MDI 2 PUFF INHALATION (03:04)
[2020-05-31] MEDS: pantoprazole 40 mg SDV IVP ×2 (03:10→16:34)
[2020-05-31] MEDS: morphine 4 mg/mL SDV 1 mL 2 MG IVP ×5 (03:11→16:36)
[2020-05-31] MEDS: enoxaparin 100 mg/mL Syringe SUBCUT ×2 (03:13→16:39)
[2020-05-31] MEDS: sucralfate 1 gm Tablet PO ×4 (06:02→20:19)
[2020-05-31] MEDS: folic acid 1 mg Tablet PO (08:12)
[2020-05-31] MEDS: levothyroxine 100 mcg Tablet 200 MCG PO (08:12)
[2020-05-31] MEDS: multivitamin therapeutic Tablet 1 TAB PO (08:12)
[2020-05-31] MEDS: levETIRAcetam 500 mg Tablet 1000 MG PO ×2 (08:12→17:38)
[2020-05-31] MEDS: budesonide 0.5 mg/2 mL Neb 0.25 MG INHALATION ×2 (08:20→20:01)
[2020-05-31] MEDS: ipratropium-albuterol 3 mL Neb INHALATION ×3 (08:20→20:01)
[2020-05-31] MEDS: fluticasone nasal spray 16gm Btl 1 SPRAY INTRANASAL ×2 (10:21→17:38)
[2020-05-31 10:44] LABS: Alanine Aminotransferase 15 U/L (0-33); Alkaline Phosphatase 150 IU/L (35-105); Aspartate Amino Transferase 9 U/L (0-32); Blood Urea Nitrogen 4 mg/dL (6-20); Calcium 7.3 mg/dL (8.5-10.5); Carbon Dioxide 21 mmol/L (22-29); Chloride 103 mmol/L (98-107); Glomerular Filtration Rate 67.7 mL/min (90-130); Glucose 108 mg/dL (65-115); Osmolality Calculated 279 mOsm/kg (285-295); Sodium 136 mmol/L (136-145); Total Bilirubin 0.5 mg/dL (0.15-1.2)
[2020-05-31 10:47] LABS: Anion Gap 15.6 (5-19); Potassium 3.6 mmol/L (3.5-5.1)
[2020-05-31 15:17] LABS: Osmolality Serum 277 mOsm/kg (278-305)
--- NOTE | 2020-05-31 17:36 | P.PN_ITS ---
Subjective Subjective: Interval history: Continues to have a poor appetite today. Try clears yesterday, however did have significant nausea and vomiting afterwards. He is able to finish half of her breakfast tray but has not had anything afterwards. Respiratory status appears to be better since stopping the fluids. Unable to be drawn CBC this morning as blood clotted and she has poor peripheral access. Has not had bowel movement yet. Passing flatus. Medications: Reviewed: Yes Vitals/I&O/Wt Last Vital Signs Temp 98.8 F 05/31/20 15:46 Pulse 71 05/31/20 15:46 Resp 16 05/31/20 16:36 BP 126/68 05/31/20 15:46 Pulse Ox 97 05/31/20 15:46 05/31/20 05/31/20 05/31/20 06:59 14:59 22:59 Intake Total 490 / 3274.883 Output Total 925 / 1925 Balance -435 / 1349.883 Weight last 48 hrs Weight 100.97 kg Weight 100.425 kg Physical Exam Narrative: EXAM NARRATIVE: GEN: Awake, alert and oriented, no acute distress CVS: S1S2 N RS: CTA B/L Abd: Soft, nt/nd , bs+ VICE PRESIDENT OF COMMUNICATIONS: no focal neuro deficits Data : 05/30/20 05:30 05/31/20 10:17 Micro: Microbiology 05/30/20 03:52 Gram Stain - Final Sputum - Expectorated Sputum Sputum Culture - Preliminary Gram Negative Rods 05/29/20 14:40 Blood Culture - Preliminary Blood NEGATIVE TO DATE 05/29/20 14:35 Blood Culture - Preliminary Blood NEGATIVE TO DATE A&P Additional A&P Information 54-year-old female with complicated past medical history including thrombophilia, DVTs, COPD, on home oxygen, previous pancreatitis, EtOH, upper GI bleeding, peptic ulcer disease, endocarditis and bacteremia for which she is currently on linezolid who is presenting with abdominal pain, nausea and vomiting, and shortness of breath. The patient has PE. She has history of thrombophilia but not on anticoagulation currently due to remote history of GI bleeding. She has IVC filter. I had a very long discussion with the patient regarding risks and benefits of anticoagulation. She agreed that at this point probably we should start the anticoagulation and monitor for any signs of blood loss. After discussion with hematology and the patient, she has agreed to be placed back on Lovenox. States that she was on this medication for the last 2 years and eventually discontinued during an episode of acute GI bleeding when she was actively drinking. Will discontinue heparin drip and place her back on anticoagulation with Lovenox and monitor very closely her hemoglobin. Check anti-X a levels. History of peptic ulcer disease and upper GI bleeding. I will switch her PPI to IV twice daily and continue home Carafate. We will monitor her anemia daily. If we detect any signs of bleeding or hemodynamic compromise level need to reassess the treatments and consider stopping Lovenox. Acute pancreatitis. The patient denies recent alcohol. She states that her last alcohol intake was about 2 months ago. She wishes to try clear liquid today and her diet will be advanced in accordance. Hold IV fluids for now as patient is developing bilateral dependent edema.. Resume her home dose of Lasix. Possible history of alcohol. I will start her on CIWA protocol. We will start thiamine replacement. She does have history of diastolic congestive heart failure. Holding home Lasix dosing. Stop IV fluids. Patient wishes to try p.o. clears which we have started. History of COPD. No evidence of acute exacerbation. Continue home medications. History of bacteremia and endocarditis. Stop linezolid. Switch to IV vancomycin History of seizure disorder. We will continue her home medication. The patient wants to be full code. The plan of care was discussed with the patient. She verbalized understanding and agreement. Attestations Medical Necessity Statement*: Acute pancreatitis, slowly improving, needs close monitoring of hemoglobin with initiation of full dose Lovenox. Coding Level of Care Code Acute Content Manager for Janeen Ray
[2020-05-31] MEDS: FUROsemide 40 mg Tablet PO (18:15)
--- NOTE | 2020-05-31 18:27 | PC.NURSE ---
Patient's R AC IV infiltrated while her Vancomycin was running. IV removed and Timber Supervisor at bedside to try and start a new IV.
--- NOTE | 2020-05-31 19:05 | PC.NURSE ---
Report to Jerman BARRETT at this time.
[2020-06-01] VITALS (17 sets, daily range): BP systolic 107–123; BP diastolic 71–82; PULSE 92–112; RESP 14–24; TEMP 36.4–37.1; O2SAT 16–98; BMI 39.4
[2020-06-01] MEDS: morphine 4 mg/mL SDV 1 mL 2 MG IVP ×5 (01:48→20:20)
[2020-06-01] MEDS: pantoprazole 40 mg SDV IVP ×2 (03:09→15:06)
[2020-06-01] MEDS: HYDROmorphone 1 mg/mL INJ 1 mL 0.5 MG IVP ×2 (03:09→08:55)
[2020-06-01] MEDS: enoxaparin 100 mg/mL Syringe SUBCUT ×2 (03:10→15:06)
[2020-06-01] MEDS: ipratropium-albuterol 3 mL Neb INHALATION ×3 (03:18→16:12)
[2020-06-01 05:10] LABS: Basophils % 0.7 %; Eosinophils # 0.3 10^3/uL (0.0-0.8); Eosinophils % 5.6 %; Hematocrit 27.6 % (37.0-47.0); Lymphocytes # 0.8 10^3/uL (0.8-4.8); Lymphocytes % 16.9 %; Mean Corpuscular Hemoglobin 26.6 pg (28.0-34.0); Mean Corpuscular Volume 91.7 fL (81-99); Mean Platelet Volume 10.3 fL (7.4-10.4); Monocytes # 0.3 10^3/uL (0.2-0.9); Monocytes % 7.6 %; Neutrophils # 3.09 10^3/uL (1.8-7.7); Neutrophils % 68.5 %; Nucleated Red Blood Cells % 0 %; Platelet Count 160 10^3/cmm (130-400); Red Blood Count 3.01 10^6/uL (4.1-5.3); Red Cell Distribution Width 23.6 % (12.1-15.1); White Blood Count 4.5 10^3/uL (4.0-10.0)
[2020-06-01 05:34] LABS: Alanine Aminotransferase 13 U/L (0-33); Alkaline Phosphatase 140 IU/L (35-105); Aspartate Amino Transferase 6 U/L (0-32); Blood Urea Nitrogen 3 mg/dL (6-20); Calcium 7.4 mg/dL (8.5-10.5); Carbon Dioxide 25 mmol/L (22-29); Chloride 103 mmol/L (98-107); Globulin 2.7 g/dL (1.3-4.6); Glomerular Filtration Rate 67.7 mL/min (90-130); Glucose 97 mg/dL (65-115); Osmolality Calculated 284 mOsm/kg (285-295); Sodium 139 mmol/L (136-145); Total Bilirubin 0.5 mg/dL (0.15-1.2); Total Protein 5.7 g/dL (6.6-8.7)
--- NOTE | 2020-06-01 06:02 | PC.NURSE ---
Patient failed bedside Nursing Dysphasia Screening. Patient made NPO. Patients needs Swallow study.
[2020-06-01] MEDS: levothyroxine 100 mcg Tablet 200 MCG PO (08:19)
[2020-06-01] MEDS: levETIRAcetam 500 mg Tablet 1000 MG PO ×2 (08:20→17:21)
[2020-06-01] MEDS: FUROsemide 40 mg Tablet PO ×2 (08:20→17:23)
[2020-06-01] MEDS: multivitamin therapeutic Tablet 1 TAB PO (08:20)
[2020-06-01] MEDS: folic acid 1 mg Tablet PO (08:20)
[2020-06-01] MEDS: fluticasone nasal spray 16gm Btl 1 SPRAY INTRANASAL ×2 (08:25→17:23)
[2020-06-01] MEDS: budesonide 0.5 mg/2 mL Neb 0.25 MG INHALATION (09:58)
--- NOTE | 2020-06-01 10:55 | PC.SOCIAL ---
IMM Page 2 of IMM explained to patient. Initialed, dated, and timed and placed in chart. Copy provided to patient.
[2020-06-01] MEDS: sucralfate 1 gm Tablet PO ×3 (11:04→20:38)
[2020-06-01] MEDS: ondansetron 2 mg/ML SDV 2 mL 4 MG IVP (12:51)
--- NOTE | 2020-06-01 15:35 | PM.PN ---
Subjective Subjective: Interval history: Patient continues to complain of nausea and bandlike abdominal pain in the epigastric region, however has not had any episodes of emesis today. Overnight there was concern that patient may be aspirating and she underwent swallow evaluation this morning where it was recommended that and thickened liquids. Patient denies any past history of aspiration episodes. Hemoglobin remained stable at 8 today. Urine output 1.8 L. 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: no focal neuro deficits Extremities bilateral lower extremity edema present Data : 06/01/20 04:36 06/01/20 04:36 Micro: Microbiology 05/30/20 03:52 Gram Stain - Final Sputum - Expectorated Sputum Sputum Culture - Final Enterobacter cloacae A&P Assessment and plan (1) Pancreatitis: Status: Acute (2) Pulmonary embolism: Status: Acute (3) Endocarditis: Status: Resolved (4) Barretts esophagus: Status: Acute (5) Paraesophageal hernia: Status: Acute (6) Acute worsening of stage 3 chronic kidney disease: Status: Acute (7) COPD (chronic obstructive pulmonary disease): Status: Acute Qualifiers: COPD type: COPD with acute exacerbation Qualified Code(s): J44.1 - Chronic obstructive pulmonary disease with (acute) exacerbation (8) Seizures: Status: Chronic (9) Anemia: Status: Chronic Qualifiers: Anemia type: unspecified type Qualified Code(s): D64.9 - Anemia, unspecified Additional A&P Information 54-year-old female with complicated past medical history including thrombophilia, DVTs, COPD, on home oxygen, previous pancreatitis, EtOH, upper GI bleeding, peptic ulcer disease, endocarditis and bacteremia for which she is currently on linezolid who is presenting with abdominal pain, nausea and vomiting, and shortness of breath. # The patient has PE. She has history of thrombophilia but not on anticoagulation recently due to remote history of GI bleeding. She has IVC filter. After extensive discussion with hematology and the patient, she has agreed to be placed back on Lovenox for her current PE and history of thrombophilia. States that she was on this medication for the last 2 years and eventually discontinued during an episode of acute GI bleeding when she was actively drinking. She is currently been placed on Lovenox and is doing well. Had a bowel movement this morning which was yellow-brown in color. No diarrhea. No blood noted in stools. Hemoglobin remained stable at 8.0. # History of peptic ulcer disease and upper GI bleeding. Continue PPI twice daily and continue home Carafate. We will monitor her anemia daily. If we detect any signs of bleeding or hemodynamic compromise level need to reassess the treatments and consider stopping Lovenox. #On recent admission in May patient had presented with fever, sepsis, coag negative staph positive blood culture and a recent history of SSDI with basilic vein thrombosis and there was considered to be a possibility of endovascular infection such as septic thrombophlebitis. A HANY was performed which was read with possible echodensities. Additionally she is plan to eventually get a port for recurrent transfusions for anemia, based on all of the above it was decided to treat the patient for at least 4 to 6 weeks. Outpatient she was on p.o. linezolid. This has been changed to IV vancomycin for inpatient use. Follow-up with infectious disease as outpatient to determine final course of treatment. # Acute pancreatitis. The patient denies recent alcohol. She states that her last alcohol intake was about 2 months ago. She is currently on clear liquid diet, tolerating it though with some nausea. Overnight there was some concern for noted aspiration events and this morning on a swallow eval to start better to let the patient to straw and thickened liquids. Will order a barium swallow for now to ascertain for any oropharyngeal dysphagia. # She does have history of diastolic congestive heart failure. Lasix 40 mg p.o. twice daily resumed yesterday # History of COPD. No evidence of acute exacerbation. Continue home medications. History of seizure disorder. We will continue her home medication Keppra thousand milligrams twice daily. Full code DVT prophylaxis currently on full dose Lovenox Attestations Medical Necessity Statement*: Patient needs ongoing monitoring for pancreatitis, if barium swallow returns without any signs of aspiration will advance her diet and assess for tolerability. Also needs close monitoring of hemoglobin after being resumed on Lovenox. Coding Level of Care Code Acute Machine Splitter for g Fwd Diagnoses Pancreatitis K85.90 Pulmonary embolism I26.99 Endocarditis I38 Barretts esophagus K22.70 Paraesophageal hernia K44.9 Acute worsening of stage 3 chronic kidney disease N18.3 COPD (chronic obstructive pulmonary disease) J44.1 COPD type: COPD with acute exacerbation Seizures R56.9 Anemia D64.9 Anemia type: unspecified type
[2020-06-01 21:09] LABS: Vancomycin Trough 24.8 ug/mL (10-15)
--- NOTE | 2020-06-01 21:34 | PC.PHAR ---
Vancomycin trough level os 24.8. Hold Vancomycin and repeat trough level in 24 hours.
[2020-06-02] VITALS (17 sets, daily range): BP systolic 100–127; BP diastolic 69–85; PULSE 98–109; RESP 16–22; TEMP 36.4–37.2; O2SAT 91–98
[2020-06-02 01:54] LABS: Basophils % 0.8 %; Eosinophils # 0.2 10^3/uL (0.0-0.8); Eosinophils % 5.4 %; Hematocrit 29.8 % (37.0-47.0); Hemoglobin 8.7 g/dL (11.5-15.3); Lymphocytes # 0.7 10^3/uL (0.8-4.8); Lymphocytes % 18.6 %; Mean Corpuscular HGB Conc 29.2 g/dL (30.0-36.0); Mean Corpuscular Hemoglobin 26.4 pg (28.0-34.0); Mean Corpuscular Volume 90.3 fL (81-99); Mean Platelet Volume 11.4 fL (7.4-10.4); Monocytes # 0.4 10^3/uL (0.2-0.9); Monocytes % 9.3 %; Neutrophils # 2.53 10^3/uL (1.8-7.7); Neutrophils % 65.4 %; Nucleated Red Blood Cells % 0 %; Platelet Count 166 10^3/cmm (130-400); Red Cell Distribution Width 23.9 % (12.1-15.1); White Blood Count 3.9 10^3/uL (4.0-10.0)
[2020-06-02] MEDS: morphine 4 mg/mL SDV 1 mL 2 MG IVP ×5 (02:06→15:22)
[2020-06-02] MEDS: ondansetron 2 mg/ML SDV 2 mL 4 MG IVP ×2 (02:09→12:02)
[2020-06-02 02:14] LABS: Alanine Aminotransferase 12 U/L (0-33); Albumin Level 3.4 g/dL (3.5-5.2); Alkaline Phosphatase 159 IU/L (35-105); Aspartate Amino Transferase 9 U/L (0-32); Blood Urea Nitrogen 2 mg/dL (6-20); Calcium 7.6 mg/dL (8.5-10.5); Carbon Dioxide 27 mmol/L (22-29); Chloride 101 mmol/L (98-107); Globulin 2.8 g/dL (1.3-4.6); Glomerular Filtration Rate 77.6 mL/min (90-130); Glucose 87 mg/dL (65-115); Osmolality Calculated 282 mOsm/kg (285-295); Sodium 138 mmol/L (136-145); Total Bilirubin 0.4 mg/dL (0.15-1.2); Total Protein 6.2 g/dL (6.6-8.7)
[2020-06-02 02:26] LABS: Slide Review Slide Review Perform
[2020-06-02] MEDS: enoxaparin 100 mg/mL Syringe SUBCUT ×2 (03:31→14:45)
[2020-06-02] MEDS: ipratropium-albuterol 3 mL Neb INHALATION ×4 (04:00→20:08)
[2020-06-02] MEDS: budesonide 0.5 mg/2 mL Neb 0.25 MG INHALATION ×2 (08:09→20:07)
[2020-06-02] MEDS: folic acid 1 mg Tablet PO (08:57)
[2020-06-02] MEDS: levETIRAcetam 500 mg Tablet 1000 MG PO ×2 (08:57→16:20)
[2020-06-02] MEDS: levothyroxine 100 mcg Tablet 200 MCG PO (08:58)
[2020-06-02] MEDS: fluticasone nasal spray 16gm Btl 1 SPRAY INTRANASAL ×2 (08:58→16:20)
[2020-06-02] MEDS: multivitamin therapeutic Tablet 1 TAB PO (08:58)
[2020-06-02] MEDS: pantoprazole DR 40 mg Tablet PO ×2 (08:58→16:20)
--- NOTE | 2020-06-02 10:30 | FL_ITS ---
WS: [id number] Modified barium swallow, 06/02/2020 Clinical Data: Oral dysphagia Comparison: None. Fluoroscopy time: 2.5 minutes. Findings: The patient experienced mild oral phase deficit with extended preparation time. There is mild prematu re spillage with residue that cleared on multiple swallows. There is minimal penetration with thin li quids but not with other food material. The patient swallowed the barium tablet which passed slowly t hrough the gastroesophageal junction. There was a moderate sliding hiatal hernia. FL/FL barium swallow modifd [id number] Impression: 1 premature spillage with residue cleared of multiple cyst manriquez. 2. Minimal penetration with thin liquids. 3. Slow passage of barium tablet into the stomach. 4. Moderate sliding hiatal hernia.
--- NOTE | 2020-06-02 10:43 | PC.NURSE ---
Took pt to radiology for barium swallow test. Pt tolerated the procedure well. No complaints. Pt is now resting in her room.
[2020-06-02] MEDS: sucralfate 1 gm Tablet PO ×4 (11:12→22:12)
[2020-06-02] MEDS: FUROsemide 40 mg Tablet PO ×2 (11:12→16:21)
[2020-06-02] MEDS: potassium chloride ER 10 mEq Tablet 40 MEQ PO (11:13)
--- NOTE | 2020-06-02 14:07 | PC.NURSE ---
Checked on pt and she is resting comfortably. Complains of no pain at this time. Call light is in reach and bed at its lowest level.
--- NOTE | 2020-06-02 15:59 | PM.PN ---
Subjective Subjective: Interval history: underwent modified barium wallow today,showed premature spillage with residue cleared of multiple cyst manriquez.Minimal penetration with thin liquids. Moderate sliding hiatal hernia. Medications: Reviewed: Yes Vitals/I&O/Wt Last Vital Signs Temp 98.2 F 06/02/20 15:49 Pulse 101 H 06/02/20 15:49 Resp 16 06/02/20 15:49 BP 119/69 06/02/20 15:49 Pulse Ox 98 06/02/20 15:49 06/02/20 06/02/20 06/02/20 06:59 14:59 22:59 Intake Total 1800 / 1800 Output Total 2049 / 0 Balance -0 / -1420 1800 / 1800 Weight last 48 hrs Weight 98.611 kg Weight 100.97 kg Physical Exam Narrative: EXAM NARRATIVE: GEN: Awake, alert and oriented, no acute distress CVS: S1S2 N RS: CTA B/L Abd: Soft, nt/nd , bs+ ANIMAL HEALTH TECHNICIAN: no focal neuro deficits Data : 06/02/20 01:30 06/02/20 01:30 Micro: Microbiology 05/30/20 03:52 Gram Stain - Final Sputum - Expectorated Sputum Sputum Culture - Final Enterobacter cloacae A&P Assessment and plan (1) Pancreatitis: Status: Acute (2) Pulmonary embolism: Status: Acute (3) Endocarditis: Status: Resolved (4) Barretts esophagus: Status: Acute (5) Paraesophageal hernia: Status: Acute (6) Acute worsening of stage 3 chronic kidney disease: Status: Acute (7) COPD (chronic obstructive pulmonary disease): Status: Acute Qualifiers: COPD type: COPD with acute exacerbation Qualified Code(s): J44.1 - Chronic obstructive pulmonary disease with (acute) exacerbation (8) Seizures: Status: Chronic (9) Anemia: Status: Chronic Qualifiers: Anemia type: unspecified type Qualified Code(s): D64.9 - Anemia, unspecified Additional A&P Information 44-year-old lady with complicated past medical history including thrombophilia, DVTs, COPD, on home oxygen, previous pancreatitis, EtOH, upper GI bleeding, peptic ulcer disease, endocarditis and bacteremia for which she is currently on linezolid as outpatient who is presenting with abdominal pain, nausea and vomiting, and shortness of breath. # The patient has PE. She has history of thrombophilia but not on anticoagulation recently due to remote history of GI bleeding. She has IVC filter. After extensive discussion with hematology and the patient, she has agreed to be placed back on Lovenox for her current PE and history of thrombophilia. States that she was on this medication for the last 2 years and eventually discontinued during an episode of acute GI bleeding when she was actively drinking. She is currently been placed on Lovenox and is doing well. Hb remains stable. no ghassan or hematemesis # Acute pancreatitis. The patient denies recent alcohol. Continue to have abdominal pain, requiring morphine every 3-4 hrs, she states that her last alcohol intake was about 2 months ago. She is currently on clear liquid diet, tolerating it though with some nausea. There was some noted aspiration on attempting liquid diet fo which she underwent barium swallow. recommendations currently for mechanical soft diet. will advance today and assess for tolerability, no vomiting, nausea persisting # History of peptic ulcer disease and upper GI bleeding. Continue PPI twice daily and continue home Carafate. We will monitor her anemia daily. If we detect any signs of bleeding or hemodynamic compromise level need to reassess the treatments and consider stopping Lovenox. #On recent admission in May patient had presented with fever, sepsis, coag negative staph positive blood culture and a recent history of SSTI with basilic vein thrombosis and there was considered to be a possibility of endovascular infection such as septic thrombophlebitis. A HANY was performed which was read with possible echodensities. Additionally she is plan to eventually get a port for recurrent transfusions for anemia, based on all of the above it was decided to treat the patient for at least 4 to 6 weeks. Outpatient she was on p.o. linezolid. This has been changed to IV vancomycin for inpatient use. Follow-up with infectious disease as outpatient to determine final course of treatment. # She does have history of diastolic congestive heart failure. Lasix 40 mg p.o. twice daily resumed yesterday # History of COPD. No evidence of acute exacerbation. Continue home medications. History of seizure disorder. We will continue her home medication Keppra thousand milligrams twice daily. Full code DVT prophylaxis currently on full dose Lovenox Attestations Medical Necessity Statement*: advance diet today, assess for tolerability, if tolerating po intake and Hb stable, planning discharge in the next 24-48 hrs Coding Level of Care Code Acute Vascular Technician for Chg Fwd Diagnoses Pancreatitis K85.90 Pulmonary embolism I26.99 Endocarditis I38 Barretts esophagus K22.70 Paraesophageal hernia K44.9 Acute worsening of stage 3 chronic kidney disease N18.3 COPD (chronic obstructive pulmonary disease) J44.1 COPD type: COPD with acute exacerbation Seizures R56.9 Anemia D64.9 Anemia type: unspecified type
--- NOTE | 2020-06-02 17:51 | PC.NURSE ---
Shift summary Patient has been calm and cooperative this shift. Staff still awaiting a stool sample. She has c/o pain to the abdomen on the right side that radiates to the back that will decrease to a 3/10 after giving IV morphine then within 3 hours increase to a 7/10. She has had appropriate output at 1300 ml. She has had tesslon pearls for cough that she reports has helped her cough. She denies all other needs.
[2020-06-02] MEDS: HYDROmorphone 1 mg/mL INJ 1 mL 0.5 MG IVP ×3 (18:38→21:53)
[2020-06-02 22:04] LABS: Vancomycin Trough 8.5 ug/mL (10-15)
--- NOTE | 2020-06-02 22:10 | PC.PHAR ---
Vancomycin trough after being held for 24 hours due to high level of 24.8 is 8.5. Vancomycin is resumed at 1000mg IVPB every 12 hours with a trough to be obtained before the fourth one gram dose.
--- NOTE | 2020-06-02 22:16 | PC.NURSE ---
Accidently administered Dilaudid & Sulcrafate under Pawel Romo RN login. I undid both entries & had to hand moss both meds under my login. Pawel Romo notified.
[2020-06-02] MEDS: vancomycin 1,000 MG in sodium chloride 0.9% 250 ML 250 MG IV (23:07)
[2020-06-03] VITALS (19 sets, daily range): BP systolic 90–127; BP diastolic 56–86; PULSE 84–115; RESP 17–22; TEMP 36.7–37.1; O2SAT 90–98
[2020-06-03] MEDS: benzonatate 100 mg Capsule 200 MG PO ×2 (00:36→08:05)
[2020-06-03] MEDS: HYDROmorphone 1 mg/mL INJ 1 mL 0.5 MG IVP ×4 (01:53→14:57)
[2020-06-03] MEDS: ipratropium-albuterol 3 mL Neb INHALATION ×3 (02:36→20:28)
[2020-06-03] MEDS: enoxaparin 100 mg/mL Syringe SUBCUT ×2 (04:28→14:57)
[2020-06-03 05:02] LABS: Basophils % 0.7 %; Eosinophils # 0.2 10^3/uL (0.0-0.8); Eosinophils % 5.5 %; Hematocrit 30.7 % (37.0-47.0); Hemoglobin 8.9 g/dL (11.5-15.3); Lymphocytes # 0.9 10^3/uL (0.8-4.8); Lymphocytes % 20.2 %; Mean Corpuscular Volume 89.8 fL (81-99); Mean Platelet Volume 9.3 fL (7.4-10.4); Monocytes # 0.4 10^3/uL (0.2-0.9); Monocytes % 9.8 %; Neutrophils % 63.6 %; Nucleated Red Blood Cells % 0 %; Platelet Count 249 10^3/cmm (130-400); Red Blood Count 3.42 10^6/uL (4.1-5.3); Red Cell Distribution Width 23.8 % (12.1-15.1); White Blood Count 4.4 10^3/uL (4.0-10.0)
[2020-06-03 05:26] LABS: Alanine Aminotransferase 11 U/L (0-33); Albumin Level 3.4 g/dL (3.5-5.2); Alkaline Phosphatase 162 IU/L (35-105); Aspartate Amino Transferase 9 U/L (0-32); Blood Urea Nitrogen 3 mg/dL (6-20); Calcium 8.1 mg/dL (8.5-10.5); Carbon Dioxide 24 mmol/L (22-29); Chloride 99 mmol/L (98-107); Glomerular Filtration Rate 67.7 mL/min (90-130); Glucose 124 mg/dL (65-115); Osmolality Calculated 280 mOsm/kg (285-295); Sodium 136 mmol/L (136-145); Total Bilirubin 0.5 mg/dL (0.15-1.2); Total Protein 6.4 g/dL (6.6-8.7)
[2020-06-03] MEDS: ondansetron 2 mg/ML SDV 2 mL 4 MG IVP ×3 (06:01→21:26)
[2020-06-03] MEDS: sucralfate 1 gm Tablet PO ×4 (06:19→21:02)
[2020-06-03] MEDS: multivitamin therapeutic Tablet 1 TAB PO (08:01)
[2020-06-03] MEDS: levothyroxine 100 mcg Tablet 200 MCG PO (08:02)
[2020-06-03] MEDS: levETIRAcetam 500 mg Tablet 1000 MG PO ×2 (08:03→16:45)
[2020-06-03] MEDS: pantoprazole DR 40 mg Tablet PO ×2 (08:04→16:46)
[2020-06-03] MEDS: fluticasone nasal spray 16gm Btl 1 SPRAY INTRANASAL ×2 (08:07→16:45)
[2020-06-03] MEDS: folic acid 1 mg Tablet PO (08:07)
--- NOTE | 2020-06-03 09:36 | XR_ITS ---
WS: [id number] Chest 2 views, 06/03/2020 Clinical Data: cough Comparison: Portable chest, 05/29/2020 Findings: No nodules, masses or effusions are seen. The heart is slightly enlarged. The pulmonary vas cularity is not increased. No pneumonia or pneumothorax is seen. There is a hiatal hernia behind the heart. XR/XR chest 2V* [id number] Impression: Mild cardiomegaly.
[2020-06-03] MEDS: FUROsemide 40 mg Tablet PO ×2 (10:45→16:45)
[2020-06-03] MEDS: vancomycin 1,000 MG in sodium chloride 0.9% 250 ML 250 MG IV (10:46)
[2020-06-03] MEDS: potassium chloride ER 10 mEq Tablet 60 MEQ PO (10:46)
--- NOTE | 2020-06-03 11:17 | PC.SOCIAL ---
IMM Update Pg. 2 of IMM updated and reviewed with patient who verbalized understanding. Copy provided.
--- NOTE | 2020-06-03 14:23 | PC.NURSE ---
Nausea Patient complaining of nausea, no vomiting. Administer zofran 4mg IVP.
--- NOTE | 2020-06-03 16:13 | PM.PN ---
Subjective Subjective: Interval history: Had 3 episodes of diarrhea yesterday. C. difficile PCR eventually returned positive. Hemoglobin is stable at 8.9. Potassium again at 3.0. currently tolerating soft diet Medications: Reviewed: Yes Vitals/I&O/Wt Last Vital Signs Temp 98.5 F 06/03/20 15:14 Pulse 108 H 06/03/20 15:14 Resp 20 H 06/03/20 15:14 BP 121/85 06/03/20 15:14 Pulse Ox 90 06/03/20 15:14 06/03/20 06/03/20 06/03/20 06:59 14:59 22:59 Intake Total 250 / 2290 280 / 280 Output Total 310 / 2420 200 / 200 Balance -60 / -130 80 / 80 Weight last 48 hrs Weight 98.089 kg Weight 98.611 kg Physical Exam Narrative: EXAM NARRATIVE: GEN: Awake, alert and oriented, no acute distress CVS: S1S2 N RS: CTA B/L Abd: Soft, nt/nd , bs+ AUTHORIZATION NURSE: no focal neuro deficits EXT; unchanged LE edema Data : 06/03/20 04:54 06/03/20 04:54 Micro: Microbiology 05/29/20 14:40 Blood Culture - Final Blood NO GROWTH AFTER 5 DAYS 05/29/20 14:35 Blood Culture - Final Blood NO GROWTH AFTER 5 DAYS 06/02/20 21:32 C.difficile Toxin B Gene (PCR) - Final Stool Routine Collection A&P Assessment and plan (1) Pancreatitis: Status: Acute (2) Pulmonary embolism: Status: Acute (3) Endocarditis: Status: Resolved (4) Barretts esophagus: Status: Acute (5) Paraesophageal hernia: Status: Acute (6) Acute worsening of stage 3 chronic kidney disease: Status: Acute (7) COPD (chronic obstructive pulmonary disease): Status: Acute Qualifiers: COPD type: COPD with acute exacerbation Qualified Code(s): J44.1 - Chronic obstructive pulmonary disease with (acute) exacerbation (8) Seizures: Status: Chronic (9) Anemia: Status: Chronic Qualifiers: Anemia type: unspecified type Qualified Code(s): D64.9 - Anemia, unspecified (10) C. difficile diarrhea: Status: Acute Additional A&P Information 44-year-old lady with complicated past medical history including thrombophilia, DVTs, COPD, on home oxygen, previous pancreatitis, EtOH, upper GI bleeding, peptic ulcer disease, endocarditis and bacteremia for which she is currently on linezolid as outpatient who is presenting with abdominal pain, nausea and vomiting, and shortness of breath. # The patient has PE. She has history of thrombophilia but not on anticoagulation recently due to remote history of GI bleeding. She has IVC filter. After extensive discussion with hematology and the patient. Loveniox has been resumed and she is tolerating well Hb remains stable. no hgassan or hematemesis # Acute pancreatitis. The patient denies recent alcohol. Continue to have abdominal pain, requiring morphine every 3-4 hrs, she states that her last alcohol intake was about 2 months ago. currently on mechanical soft diet which she is tolerating today. No vomiting. # C diff diarrhea : start po vancomycin 125mg QID # History of peptic ulcer disease and upper GI bleeding. Continue PPI twice daily and continue home Carafate. We will monitor her anemia daily. If we detect any signs of bleeding or hemodynamic compromise level need to reassess the treatments and consider stopping Lovenox. #On recent admission in May patient had presented with fever, sepsis, coag negative staph positive blood culture and a recent history of SSTI with basilic vein thrombosis and there was considered to be a possibility of endovascular infection such as septic thrombophlebitis. A HANY was performed which was read with possible echodensities. Additionally she is plan to eventually get a port for recurrent transfusions for anemia, based on all of the above it was decided to treat the patient for at least 4 to 6 weeks. Outpatient she was on p.o. linezolid. This has been changed to IV vancomycin for inpatient use. Follow-up with infectious disease as outpatient to determine final course of treatment. # She does have history of diastolic congestive heart failure. Lasix 40 mg p.o. twice daily to continue. Currently euvolemic # History of COPD. No evidence of acute exacerbation. Continue home medications. History of seizure disorder. We will continue her home medication Keppra thousand milligrams twice daily. Full code DVT prophylaxis currently on full dose Lovenox Attestations Medical Necessity Statement*: improving pancreatitis, CDI, started po vancomycin, Hb holding with a/c. Likely discharge in the next 24 hrs Coding Level of Care Code Acute Workforce Management Analyst for [facility] Diagnoses Pancreatitis K85.90 Pulmonary embolism I26.99 Endocarditis I38 Barretts esophagus K22.70 Paraesophageal hernia K44.9 Acute worsening of stage 3 chronic kidney disease N18.3 COPD (chronic obstructive pulmonary disease) J44.1 COPD type: COPD with acute exacerbation Seizures R56.9 Anemia D64.9 Anemia type: unspecified type C. difficile diarrhea A04.72
--- NOTE | 2020-06-03 18:14 | PC.NURSE ---
Shift summary Patient has tolerated [facility] soft diet this shift, she has c/o nausea x 1 with zofran given. IV pain meds given x 2, no oral given since physician ordered. She states her pain is 3/10 at this time. She is alert and oriented. Output has been appropriate. She is ambulatory, in the room at this time.
[2020-06-03] MEDS: budesonide 0.5 mg/2 mL Neb 0.25 MG INHALATION (20:28)
[2020-06-04] VITALS: BP 107/70; PULSE 89; RESP 18; TEMP 37.1; O2SAT 96
[2020-06-04] MEDS: benzonatate 100 mg Capsule 200 MG PO (00:06)
[2020-06-04] MEDS: vancomycin 1,000 MG in sodium chloride 0.9% 250 ML 250 MG IV (00:06)
[2020-06-04 04:00] VITALS: BP 116/74; PULSE 94; RESP 20; TEMP 36.7; O2SAT 96
[2020-06-04] MEDS: enoxaparin 100 mg/mL Syringe SUBCUT (04:26)
[2020-06-04 05:32] LABS: Basophils % 0.7 %; Eosinophils # 0.2 10^3/uL (0.0-0.8); Eosinophils % 7.1 %; Hematocrit 29.4 % (37.0-47.0); Hemoglobin 8.5 g/dL (11.5-15.3); Lymphocytes # 0.7 10^3/uL (0.8-4.8); Lymphocytes % 26.1 %; Mean Corpuscular HGB Conc 28.9 g/dL (30.0-36.0); Mean Corpuscular Hemoglobin 26.2 pg (28.0-34.0); Mean Corpuscular Volume 90.5 fL (81-99); Monocytes # 0.3 10^3/uL (0.2-0.9); Monocytes % 10.2 %; Neutrophils # 1.57 10^3/uL (1.8-7.7); Neutrophils % 55.5 %; Nucleated Red Blood Cells % 0 %; Platelet Count 263 10^3/cmm (130-400); Red Blood Count 3.25 10^6/uL (4.1-5.3); White Blood Count 2.8 10^3/uL (4.0-10.0)
[2020-06-04 05:48] LABS: Alanine Aminotransferase 9 U/L (0-33); Alkaline Phosphatase 133 IU/L (35-105); Anion Gap 11.9 (5-19); Aspartate Amino Transferase 7 U/L (0-32); Blood Urea Nitrogen 3 mg/dL (6-20); Calcium 7.9 mg/dL (8.5-10.5); Carbon Dioxide 25 mmol/L (22-29); Chloride 103 mmol/L (98-107); Globulin 2.7 g/dL (1.3-4.6); Glomerular Filtration Rate 77.6 mL/min (90-130); Glucose 150 mg/dL (65-115); Osmolality Calculated 283 mOsm/kg (285-295); Sodium 137 mmol/L (136-145); Total Bilirubin 0.5 mg/dL (0.15-1.2); Total Protein 5.7 g/dL (6.6-8.7)
[2020-06-04 05:49] LABS: Potassium 2.9 mmol/L (3.5-5.1)
[2020-06-04] MEDS: sucralfate 1 gm Tablet PO (06:17)
[2020-06-04 08:00] VITALS: BP 120/73; PULSE 90; RESP 20; TEMP 36.8; O2SAT 96
[2020-06-04] MEDS: ipratropium-albuterol 3 mL Neb INHALATION (08:27)
[2020-06-04] MEDS: budesonide 0.5 mg/2 mL Neb 0.25 MG INHALATION (08:27)
[2020-06-04 08:28] VITALS: PULSE 110; RESP 18; O2SAT 94
[2020-06-04] MEDS: multivitamin therapeutic Tablet 1 TAB PO (08:33)
[2020-06-04] MEDS: levothyroxine 100 mcg Tablet 200 MCG PO (08:33)
[2020-06-04] MEDS: folic acid 1 mg Tablet PO (08:33)
[2020-06-04] MEDS: pantoprazole DR 40 mg Tablet PO (08:33)
[2020-06-04] MEDS: fluticasone nasal spray 16gm Btl 1 SPRAY INTRANASAL (08:33)
[2020-06-04 08:34] VITALS: PULSE 112
[2020-06-04] MEDS: levETIRAcetam 500 mg Tablet 1000 MG PO (08:37)
--- NOTE | 2020-06-04 08:42 | PC.NURSE ---
Dr. Smith notified of patient complaint of pain and refusing to take tramadol due to rash occurring . notified of potassium level 2.9 with no orders for potassium scheduled today. Dr. Smith will order as needed.
--- NOTE | 2020-06-04 09:28 | PM.DCS ---
Discharge Providers Date of Admission: 05/29/20 13:44 Date of Discharge: June 04, 2020 Attending Provider at Admission: Jonny Whitt Attending Provider at Discharge: Klaudia Smith MD Primary Care Provider: Octaviano Sue MD Diagnoses at Discharge Discharge Diagnosis (1) Pancreatitis: Status: Acute (2) Pulmonary embolism: Status: Acute (3) Endocarditis: Status: Resolved (4) Barretts esophagus: Status: Acute (5) Paraesophageal hernia: Status: Acute (6) Acute worsening of stage 3 chronic kidney disease: Status: Acute (7) COPD (chronic obstructive pulmonary disease): Status: Acute Problem details: -oxygen dependent Qualifiers: COPD type: COPD with acute exacerbation Qualified Code(s): J44.1 - Chronic obstructive pulmonary disease with (acute) exacerbation (8) Seizures: Status: Chronic (9) Anemia: Status: Chronic Qualifiers: Anemia type: unspecified type Qualified Code(s): D64.9 - Anemia, unspecified (10) C. difficile diarrhea: Status: Acute Reason for Visit Reason for Visit: N/V Hospital Course Discharge Summary: 44-year-old lady with complicated past medical history including thrombophilia, DVTs, COPD, on home oxygen, previous pancreatitis, EtOH, upper GI bleeding, peptic ulcer disease, endocarditis and bacteremia for which she is currently on linezolid as outpatient who is presenting with abdominal pain, nausea and vomiting, and shortness of breath.Hospital course as below: # The patient has PE. She has history of thrombophilia but not on anticoagulation recently due to remote history of GI bleeding. She has IVC filter. After extensive discussion with hematology and the patient Lovenox has been resumed and she is tolerating well Hb remains stable. no ghassan or hematemesis # Acute pancreatitis. The patient denies recent alcohol. Continue to have abdominal pain, requiring morphine every 3-4 hrs, she states that her last alcohol intake was about 2 months ago. currently on mechanical soft diet which she is tolerating today. No vomiting. # C diff diarrhea : start po vancomycin 125mg QID over the next 14 days # History of peptic ulcer disease and upper GI bleeding. Continue PPI twice daily and continue home Carafate. We will monitor her anemia daily. If we detect any signs of bleeding or hemodynamic compromise level need to reassess the treatments and consider stopping Lovenox. Follow up with PCP in 4-7 days to monitor Hb level while on Lovenox. #On recent admission in May patient had presented with fever, sepsis, coag negative staph positive blood culture and a recent history of SSTI with basilic vein thrombosis and there was considered to be a possibility of endovascular infection such as septic thrombophlebitis. A HANY was performed which was read with possible echodensities. Additionally she is plan to eventually get a port for recurrent transfusions for anemia, based on all of the above it was decided to treat the patient for at least 4 to 6 weeks. Outpatient she was on p.o. linezolid. This has been changed to IV vancomycin for inpatient use. Follow-up with infectious disease as outpatient to determine final course of treatment. # She does have history of diastolic congestive heart failure. Lasix 40 mg p.o. twice daily to continue. Currently euvolemic # History of COPD. No evidence of acute exacerbation. Continue home medications. Patient feels well today, all active issues currently resolved, discharge to home with [facility] [address] Physical Exam Narrative: EXAM NARRATIVE: GEN: Awake, alert and oriented, no acute distress CVS: S1S2 N RS: CTA B/L Abd: Soft, nt/nd , bs+ CRUTCHING CONTRACTOR: no focal neuro deficits Discharge Data Data Completed and Pending: Completed Studies During Hospitalization Category Date Time Status CT angio chest PE protcl [id number] Stat Cat Scan 05/29/20 10:16 Completed FL barium swallow modifd [id number] Rout ine Exams 06/02/20 10:30 Completed XR chest 1V nichole ble [id number] Stat Exams 05/29/20 09:48 Completed XR chest 2V* 7104 6 Routine Exams 06/03/20 09:36 [place] [id number] Urgent Ultrasound 05/29/20 07:59 Completed US abdomen limite d [id number] Routine Ultrasound 05/29/20 14:28 Completed Pending at discharge Category Date Time Status CA echo doppler c omplete Routine Exams 05/29/20 17:36 Ordered Arterial Blood Ga s Full Stat Lab 05/29/20 08:23 Received Miscellaneous Ernestine t Routine Lab 05/30/20 15:38 Received Vancomycin Trough Timed Lab 06/04/20 10:00 Ordered Labs from last 24 hours 06/04/20 06/04/20 05:15 05:15 WBC 2.8 L RBC 3.25 L Hgb 8.5 L Hct 29.4 L MCV 90.5 MCH 26.2 L MCHC 28.9 L RDW 23.0 H Plt Count 263 MPV 10.0 Neut % (Auto) 55.5 Lymph % (Auto) 26.1 Meeker % (Auto) 10.2 Eos % (Auto) 7.1 Baso % (Auto) 0.7 Neut # (Auto) 1.57 L Lymph # (Auto) 0.7 L Meeker # (Auto) 0.3 Eos # (Auto) 0.2 Baso # (Auto) 0.0 Nucleated RBC % (a uto) 0 Nucleated RBCs # 0.0 Sodium 137 Potassium 2.9 L Chloride 103 Carbon Dioxide 25 Anion Gap 11.9 BUN 3 L Creatinine 0.8 GFR Calculation 77.6 L Glucose 150 H Calculated Osmolal ity 283 L Calcium 7.9 L Total Bilirubin 0.5 AST 7 ALT 9 Alkaline Phosphata se 133 H Total Protein 5.7 L Albumin 3.0 L Globulin 2.7 Vitals: Last Vital Signs Temp 98.3 F 06/04/20 08:00 Pulse 112 H 06/04/20 08:34 Resp 18 06/04/20 08:28 BP 120/73 06/04/20 08:00 Pulse Ox 94 06/04/20 08:28 Discharge Plan Discharge Patient Disposition: Home Health Service Condition: Stable Prescriptions: New vancomycin 1,000 mg Recon Soln 125 mg PO QID 14 Days Qty: 60 RF: 0 enoxaparin 100 mg/mL Syringe 90 mg SUBCUT Q12H 30 Days Qty: 54 RF: 0 oxycodone 10 mg tablet 10 mg PO BID PRN (Reason: pain) 7 Days Qty: 14 RF: 0 Continued furosemide 40 mg tablet 40 mg PO BID Qty: 60 RF: 8 albuterol sulfate 90 mcg/actuation HFA aerosol inhaler 2 inh INHALATION Q4H PRN (Reason: shortness of breath or wheezing) Qty: 6.7 RF: 0 epinephrine [EpiPen 2-Tim] 0.3 mg/0.3 mL auto-injector 0.3 mg IM ONCE RF: 0 promethazine 25 mg suppository 25 mg WV Q6H PRN (Reason: if unable to take PO zofran ) RF: 0 levetiracetam [Keppra] 500 mg tablet 1,000 mg PO BID RF: 0 potassium chloride [Klor-Con M20] 20 mEq tablet,ER particles/crystals 20 meq PO BID Qty: 30 RF: 0 liothyronine [Cytomel] 25 mcg tablet 25 mcg PO DAILY Qty: 90 RF: 3 levothyroxine 200 mcg capsule 200 mcg PO DAILY Qty: 90 RF: 3 Incruse Ellipta 62.5 mcg/actuation blister with device 1 inh INHALATION DAILY Qty: 30 RF: 3 Spiriva Respimat 2.5 mcg/actuation mist 2 puff INHALATION QAM 90 Days Qty: 4 RF: 2 ondansetron 4 mg film 4 mg PO DAILY PRN (Reason: nausea and vomiting) Qty: 10 RF: 0 sucralfate 1 gram Tablet 1 g PO AC&BEDTIME Qty: 15 RF: 0 dextromethorphan-guaifenesin 10-100 mg/5 mL Syrup 10 ml PO Q4H PRN (Reason: Cough) Qty: 30 RF: 0 linezolid 600 mg Tablet 600 mg PO Q12H 28 Days Qty: 56 RF: 0 benzonatate 100 mg Capsule 200 mg PO TID Qty: 20 RF: 0 pantoprazole 40 mg Tablet,Delayed Release (Dr/Ec) 40 mg PO BID Qty: 20 RF: 0 menthol 1.7 mg lozenge 1.7 mg MUCOUS MEM Q4H PRN (Reason: sore throat) Qty: 20 RF: 0 fluticasone propionate [Flonase Allergy Relief] 50 mcg/actuation spray,suspension 1 spray INTRANASAL BID Qty: 9.9 RF: 0 prednisone 10 mg tablet See Rx Instructions .ROUTE .COMPLEX Qty: 42 RF: 0 budesonide 0.25 mg/2 mL suspension for nebulization 0.25 mg INHALATION BID Qty: 60 RF: 0 ipratropium-albuterol 0.5 mg-3 mg(2.5 mg base)/3 mL solution for nebulization 3 ml INHALATION Q6H Qty: 15 RF: 0 albuterol sulfate 0.63 mg/3 mL solution for nebulization 0.63 mg INHALATION Q4H PRN (Reason: Shortness Of Breath) RF: 0 Discharge Orders: Discharge Order (Routine); Ordered 06/04/20 Ordered By: Klaudia Smith Other Ambulatory Orders: Complete Blood Count w/Auto (Routine) Timeframe: 1 Week Location: Determined by Patient Ordered By: Klaudia Smith [place] [facility] [place] [facility] [Outside] Octaviano Sue MD [Primary Care Provider] - 4-7 days (hospital discharge follow up, resumed on a/c ) Klaudia Smith MD [Hospitalist] - 06/21/20 10:45 am (office located at [address] [place] [address] ) Arvind Cr MD [Hospitalist] - 7-10 days (thrombophilia, PE, h/o GI bleed, started on high risk anticoagulation ) Discharge Diet: Advance as tolerated Discharge Activity: Resume usual activity Patient Instructions: Clostridium Difficile, Oxycodone/Acetaminophen (By mouth), Enoxaparin (Injection), Vancomycin (By mouth), Pulmonary Embolism (DC), Pancreatitis (DC) Discharge Date/Time: 06/04/20 11:11 Discharge Attestations Time Spent in Discharge Care*: greater than 30 min Specific Discharge Activities: Specific discharge activities: educating and/or supporting family/caregiver and discussing with business case analyst/social workers/dc planners Status at Discharge: Cognitive status at discharge: cognitively intact, Behavioral status at discharge: cooperative, Quality Metrics Clinical Quality Measures During this hospital stay, did patient experience: VTE Contraindication to Overlap Therapy: Overlap therapy prescribed VTE Discharge Education: Education about anticoagulant therapy/Care Notes given and Follow-up arranged Deep Vein Thrombosis/Pulmonary Embolism Present on Admission: Yes Coding Level of Care Code Acute Inspectors And Regulatory Officers for [facility] F[facility] Diagnoses Pancreatitis K85.90 Pulmonary embolism I26.99 Endocarditis I38 Barretts esophagus K22.70 Paraesophageal hernia K44.9 Acute worsening of stage 3 chronic kidney disease N18.3 COPD (chronic obstructive pulmonary disease) J44.1 COPD type: COPD with acute exacerbation Seizures R56.9 Anemia D64.9 Anemia type: unspecified type C. difficile diarrhea A04.72
[2020-06-04 10:01] VITALS: PULSE 112
--- NOTE | 2020-06-04 10:05 | PC.NURSE ---
Dr. Smith notified this nurse of new order for potassium chloride 80meq po then discharge home.
[2020-06-04] MEDS: potassium chloride ER 10 mEq Tablet 80 MEQ PO (10:18)
--- NOTE | 2020-06-04 10:21 | PC.NURSE ---
discharge instructions completed, denies further questions
--- NOTE | 2020-06-04 11:12 | PC.NURSE ---
Dr. Smith changing discharge pain medication and calling in order herself due to patient allergic to acetaminophen , continue with discharge per Dr. Smith.
== END 2020-06-04 11:11 | disposition home health service (06) | DRG 175 ==
LOC: ER 07:58 → MEDSURG 14:13
PROVIDERS: Admitting Provider Internal Medicine; Emergency Provider Family Medicine; PCP Internal Medicine; Visit Provider Student in an Organized Health Care Education/Training Program
DX: I26.99 Other pulmonary embolism without acute cor pulmonale (principal); K85.90 Acute pancreatitis without necrosis or infection, unspecified; I50.30 Unspecified diastolic (congestive) heart failure; J44.1 Chronic obstructive pulmonary disease with (acute) exacerbation; A04.72 Enterocolitis due to Clostridium difficile, not specified as recurrent; I38 Endocarditis, valve unspecified; K22.70 Barrett's esophagus without dysplasia; K44.9 Diaphragmatic hernia without obstruction or gangrene; R56.9 Unspecified convulsions; F31.9 Bipolar disorder, unspecified; D64.9 Anemia, unspecified; Z99.81 Dependence on supplemental oxygen; Z87.11 Personal history of peptic ulcer disease; Z86.718 Personal history of other venous thrombosis and embolism; E03.9 Hypothyroidism, unspecified; N18.30 Chronic kidney disease, stage 3 unspecified
CPT/HCPCS: 12345; 36415; 36600; 71045; 71046; 71275; 74230; 76705; 80051; 80053; 80202; 80306; 80307; 81001; 82728; 82810; 83615; 83690; 83735; 83930; 83986; 84145; 85025; 85384; 85610; 85730; 86140; 87040; 87070; 87077; 87186; 87205; 87426; 87493; 87635; 92526; 92610; 92611; 93970; 94640; 94664; 96372; 96375; 99283; C9113; J1170; J1644; J1650; J1885; J2020; J2060; J2270; J2405; J2550; J3370; J3411; J3535; J7030; J7040; J7050; J7626; Q9967

== ENCOUNTER 2020-07-09 02:34 | Observation (INO) | payer MEDICARE, MEDICAID, SELFPAY ==
[2020-07-09] VITALS (17 sets, daily range): BP systolic 108–165; BP diastolic 70–101; PULSE 82–110; RESP 17–24; TEMP 36.2–36.9; O2SAT 91–100; BMI 38.6
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
--- NOTE | 2020-07-09 02:46 | CTR_ITS ---
PROCEDURE INFORMATION: Exam: CT Abdomen And Pelvis Without Contrast Exam date and time: 07/09/2020 4:06 AM Age: 45 years old Clinical indication: Nausea and vomiting; Prior surgery; Surgery type: Btl, cholecystectomy; Additional info: Gi bleed TECHNIQUE: Imaging protocol: Computed tomography of the abdomen and pelvis without contrast. Radiation optimization: All CT scans at this facility use at least one of these dose optimization techniques: automated exposure control; mA and/or kV adjustment per patient size (includes targeted exams where dose is matched to clinical indication); or iterative reconstruction. COMPARISON: 1. CT abdomen pelvis wo con [id number] 02/23/2018 11:08 PM 2. CTA Chest-Pulmonary Emb [id number] 10/02/2016 10:54:34 PM RADIATION DOSE METRICS: Total DLP (mGy-cm): 1504.74 FINDINGS: Lungs: Noncalcified 12 mm right lower lobe pulmonary nodule is stable since 02/23/2018 and is increased in size since 2017 when it measured 9 mm diameter. Liver: There is diffuse low-attenuation of the liver relative to the spleen consistent with fatty infiltration. There is no focal liver abnormality. Gallbladder and bile ducts: The gallbladder is absent. There is ectasia of the common bile duct and central intrahepatic ducts. Pancreas: The pancreas is unremarkable. Spleen: The spleen is mildly enlarged. Adrenal glands: The adrenal glands are unremarkable. Kidneys and ureters: The kidneys are unremarkable. No hydronephrosis or stones. No ureteral dilation. Stomach and bowel: There is a large hiatal hernia containing most of the stomach. The stomach is nondistended. There is no sign of inflammation. The small bowel is nondilated. There is mild descending colonic diverticulosis without evidence of diverticulitis. Appendix: The appendix is normal. Intraperitoneal space: There is no free air or significant intraperitoneal free fluid. Vasculature: There is a filter in the inferior vena cava positioned below the level of the renal veins. The aorta is unremarkable. There is no aneurysm. Lymph nodes: There is no lymphadenopathy in the retroperitoneum, mesentery, pelvis or inguinal regions. Urinary bladder: The urinary bladder is unremarkable. Reproductive: The uterus is absent. There is no adnexal mass or large cyst. Bones/joints: There is moderate degenerative disease in the lumbar spine. The pelvis and hips are intact. Soft tissues: There is a small fat containing umbilical hernia. CT/CT abdomen pelvis wo con [id number] IMPRESSION: 1. No acute findings. 2. 12 mm right lower lobe pulmonary nodule, stable in size since 2018 and significantly increased in size since 2017. Continued follow-up is recommended. Consider biopsy and/or PET-CT, or repeat chest CT in 3 months. 3. Additional incidental findings above. Radiation Dose CTDIVOL = (mGy): DLP = 1504.74 (mGy-cm)
--- NOTE | 2020-07-09 02:54 | XRR_ITS ---
PROCEDURE INFORMATION: Exam: XR Chest, 1 View Exam date and time: 07/09/2020 3:07 AM Age: 45 years old Clinical indication: Other: Gi bleed; Prior surgery; Surgery type: Port and removal TECHNIQUE: Imaging protocol: XR of the chest Views: 1 view. COMPARISON: CR XR chest 2V* [id number] 06/03/2020 9:50 AM FINDINGS: Lungs: Lungs are clear. Pleural space: There is no pleural effusion or pneumothorax. Heart/Mediastinum: The cardiac silhouette is within normal limits of size given AP technique. Bones/joints: Bones are unremarkable. XR/XR chest 1V portable [id number] IMPRESSION: No acute findings.
[2020-07-09] MEDS: metoclopramide 5 mg/mL SDV 2 mL 10 MG IVP (04:13)
[2020-07-09] MEDS: diphenhydrAMINE 50 mg/mL SDV 1mL 25 MG IVP (04:14)
[2020-07-09] MEDS: ondansetron 2 mg/ML SDV 2 mL 4 MG IM (04:14)
[2020-07-09] MEDS: pantoprazole 40 mg SDV 80 MG IVP (04:35)
[2020-07-09] MEDS: sodium chloride 0.9% 500 ML 999 ML IV (04:37)
[2020-07-09 04:39] LABS: Basophils # 0.1 10^3/uL (0.0-0.1); Basophils % 0.9 %; Eosinophils # 0.1 10^3/uL (0.0-0.8); Eosinophils % 1.3 %; Hematocrit 33.3 % (37.0-47.0); Hemoglobin 9.4 g/dL (11.5-15.3); Lymphocytes # 1.2 10^3/uL (0.8-4.8); Lymphocytes % 16.9 %; Mean Corpuscular HGB Conc 28.2 g/dL (30.0-36.0); Mean Corpuscular Hemoglobin 23.9 pg (28.0-34.0); Mean Corpuscular Volume 84.7 fL (81-99); Mean Platelet Volume 10.8 fL (7.4-10.4); Monocytes # 0.5 10^3/uL (0.2-0.9); Monocytes % 7.1 %; Neutrophils % 73.4 %; Nucleated Red Blood Cells % 0 %; Platelet Count 369 10^3/cmm (130-400); Red Blood Count 3.93 10^6/uL (4.1-5.3); Red Cell Distribution Width 20.7 % (12.1-15.1); White Blood Count 6.9 10^3/uL (4.0-10.0)
--- NOTE | 2020-07-09 04:45 | ECG_ITS ---
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 Measurements Intervals [place] Rate: 97 P: 60 [place]: 157 QRS: 60 QRSD: 82 T: 67 QT: 380 QTc: 483 Interpretive Statements SINUS RHYTHM LOW QRS VOLTAGE IN PRECORDIAL LEADS [QRS DEFLECTION < 1.0 mV IN CHEST LEADS] Compared to ECG 05/14/2020 02:23:05 No significant changes Electronically Signed On 07-09-2020 11:34:05 CHILD GUIDANCE COUNSELOR by Odalis Johnston M.D. [id number]
[2020-07-09 05:02] LABS: Alanine Aminotransferase 40 U/L (0-33); Albumin Level 3.2 g/dL (3.5-5.2); Alkaline Phosphatase 305 IU/L (35-105); Aspartate Amino Transferase 46 U/L (0-32); Blood Urea Nitrogen 7 mg/dL (6-20); Calcium 7.6 mg/dL (8.5-10.5); Carbon Dioxide 23 mmol/L (22-29); Chloride 103 mmol/L (98-107); Globulin 3.3 g/dL (1.3-4.6); Glomerular Filtration Rate 67.4 mL/min (90-130); Glucose 106 mg/dL (65-115); Lipase 35 U/L (13-60); Osmolality Calculated 280 mOsm/kg (285-295); Sodium 136 mmol/L (136-145); Total Bilirubin 0.5 mg/dL (0.15-1.2); Total Protein 6.5 g/dL (6.6-8.7)
[2020-07-09 05:04] LABS: Troponin(5th) Baseline 6 ng/L (0-10)
[2020-07-09 05:09] LABS: Anion Gap 14.5 (5-19); Potassium 4.5 mmol/L (3.5-5.1)
[2020-07-09] MEDS: pantoprazole 40 MG in sodium chloride 0.9% (plus) 100 ML 20 MG IV (05:54)
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
[2020-07-09 06:29] LABS: Alcohol Level < 10 mg/dL (0-10)
[2020-07-09] MEDS: thiamine 100 mg Tablet PO (08:44)
[2020-07-09] MEDS: folic acid 1 mg Tablet PO (08:44)
[2020-07-09] MEDS: multivitamin therapeutic Tablet 1 TAB PO (08:44)
[2020-07-09] MEDS: levETIRAcetam 500 mg Tablet 1000 MG PO ×2 (08:44→17:22)
[2020-07-09] MEDS: levothyroxine 100 mcg Tablet 200 MCG PO (08:44)
[2020-07-09] MEDS: sucralfate 1 gm Tablet PO ×4 (08:44→21:28)
[2020-07-09] MEDS: fluticasone nasal spray 16gm Btl 1 SPRAY INTRANASAL (08:45)
[2020-07-09] MEDS: potassium chloride ER 10 mEq Tablet 20 MEQ PO ×2 (08:45→17:21)
[2020-07-09] MEDS: FUROsemide 40 mg Tablet PO ×2 (08:45→17:21)
[2020-07-09] MEDS: dextrose 5%-sod chloride 0.45% 1,000 ML 75 ML IV ×2 (08:46→22:19)
[2020-07-09] MEDS: albuterol 8 gm MDI 1 PUFF INHALATION ×3 (10:35→19:42)
--- NOTE | 2020-07-09 11:53 | PC.OT ---
Patient screened for occupational therapy. No occupational therapy need indicated at this time.
--- NOTE | 2020-07-09 11:53 | PC.CHAP ---
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 stringed instrument tuner visit [] Patient/Family/Request visit [] Outpatient visit [] Follow-up visit [] Physician referral [] Code/Alert [X] Routine visit [] Staff referral [] Actively dying [] Patient sleeping [] Family support [] [] Out of room [] Palliative care [] [] Receiving care in room [] Pre-surgical visit [] Trauma [] Long length of stay [] ICU visit [] Other: Relational/Emotional Strength [] Patient feels connected with others/family/visitors/staff [] Distress [] Loneliness/isolation [] Abandonment Spirituality of Patient [] Person of Angy [] Attends Sabianist of their Angy [] Believes in Prayer [] Reads Bible or Methodist materials [] There are Spiritual issues to be addressed Body Builder Apprentice Interventions [] Prayer [] Active listening [] Non-anxious presence [] Spiritual/emotional support [] Crisis/trauma care [] Spiritual counseling [] Bereavement support [] Provided bereavement packet [] Provided Bible/devotional materials [] Provided toy/stuffed animal, coloring book to patient or family member [] Provided Communion [] Anointing/[place] [] Salvation [] Completed spiritual assessment [] Other: Impact on Illness or Injury [] Angry [] Fearful [] Anxious [] Often cries [] Exhaustion [] Unable to work [] Unable to attend hoahaoism [] Unable to walk/stand [] Unable to read [] Unable to drive [] Unable to eat/drink [] Unable to sleep [] Unable to be with family [] Patient intubated [] Other: Summary Time spent with patient
--- NOTE | 2020-07-09 12:14 | P.PN_ITS ---
Subjective Subjective: Interval history: Overnight labs and H&P reviewed. Hemoglobin remained stable at 10. No further episodes of hematemesis or melena. Patient symptomatically improving. Medications: Reviewed: Yes Vitals/I&O/Wt Last Vital Signs Temp 97.8 F 07/09/20 11:40 Pulse 108 H 07/09/20 11:40 Resp 18 07/09/20 11:40 BP 108/71 07/09/20 11:40 Pulse Ox 96 07/09/20 11:40 07/08/20 07/09/20 07/09/20 22:59 06:59 14:59 Intake Total 500 / 500 Balance 500 / 500 Weight last 48 hrs Weight 98.883 kg Physical Exam Narrative: EXAM NARRATIVE: GEN: Awake, alert and oriented, no acute distress CVS: S1S2 N RS: CTA B/L Abd: Soft, nt/nd , bs+ DIRECTOR OF WOMEN'S SERVICES: no focal neuro deficits Data : 07/09/20 11:26 07/09/20 04:00 A&P Assessment and plan (1) Acute upper GI bleed: Concerns for upper GI bleed overnight given hematemesis. This may be related to a Alison-Cano tear because of excessive retching. Is on therapeutic Lovenox for PE, patient reports history of thrombophilia and previous attempts at taking off her anticoagulation have resulted in DVT and PE. For this reason on last admission the case was discussed with the hematology and it was eventually decided to proceed with anticoagulation with Lovenox which patient has tolerated for 2 years in the past. Given that patient has had hematemesis, weighing the risk benefit ratio will reduce the dose of Lovenox 200 mg once daily instead of twice daily upon discharge. It is once again emphasized that she needs to follow with hematology Dr. Cr Patient has history of peptic ulcer disease, gastritis, however currently that she has not had any further episodes, this makes my suspicion for ongoing GI bleed lower at this point. Hemoglobin is stable at 10. EGD in January 2020 showed gastritis Holding all anticoagulation for now and monitoring closely Check hemoglobin with a.m. labs Monitor for bloody or black stools, no active hematemesis Change Protonix to 40 mg IV every 12h Carafate Start clear liquid diet and advance as tolerated Status: Acute (2) Pulmonary embolism: History of DVT and PE with thrombophilia No therapeutic Lovenox for now. Will reassess upon discharge Status: Acute (3) Pancreatitis: Lipase within normal limits, Status: Acute (4) S/P infectious endocarditis: Has patient about therapy. Completed treatment for the same between 05/15-June 26 with p.o. linezolid. Status: Resolved (5) GERD with esophagitis: Status: Acute (6) Anemia: Status: Chronic Qualifiers: Anemia type: unspecified type Qualified Code(s): D64.9 - Anemia, unspecified (7) COPD (chronic obstructive pulmonary disease): Continue inhalers Status: Acute Qualifiers: COPD type: COPD with acute exacerbation Qualified Code(s): J44.1 - Chronic obstructive pulmonary disease with (acute) exacerbation (8) Seizures: Continue home medication Status: Chronic (9) Chronic kidney disease, stage III (moderate): Status: Acute (10) Alcohol abuse: Obtain blood alcohol level, [facility] protocol Status: Acute Attestations Medical Necessity Statement*: Ongoing observation admission for close monitoring of hemoglobin, any further recurrence of GI bleeding and decision regarding anticoagulation. Coding Level of Care Code Acute Hot Roll Inspector for [facility] Fwd Diagnoses Acute upper GI bleed K92.2 Pulmonary embolism I26.99 Pancreatitis K85.90 S/P infectious endocarditis Z86.79 GERD with esophagitis K21.0 Anemia D64.9 Anemia type: unspecified type COPD (chronic obstructive pulmonary disease) J44.1 COPD type: COPD with acute exacerbation Seizures R56.9 Chronic kidney disease, stage III (moderate) N18.3 Alcohol abuse F10.10
[2020-07-09] MEDS: benzonatate 100 mg Capsule PO (12:29)
[2020-07-09] MEDS: ondansetron 2 mg/ML SDV 2 mL 4 MG IVP (12:29)
[2020-07-09 12:45] LABS: Hematocrit 36.4 % (37.0-47.0)
[2020-07-09 12:58] LABS: INR 1.06 (0.8-1.2)
[2020-07-09 14:09] LABS: Troponin 5 6HR Delta 0 ng/L (0-12)
--- NOTE | 2020-07-09 14:24 | PC.NURSE ---
pt requesting anxiety medication. pt does not meet criteria for ciwa protocol to receive 2mg of ativan. contacted Dr. Smith and she ok to give pt a 2mg PO of ativan.
--- NOTE | 2020-07-09 14:30 | PC.NURSE ---
pt tolerated full liquids. advanced diet to gi soft for dinner.
[2020-07-09] MEDS: LORazepam 2 mg Tablet PO ×2 (14:36→21:36)
--- NOTE | 2020-07-09 17:33 | PC.NURSE ---
pt has had a good day. pt reports no nausea or vomiting. pt tolerating food well. pts brought in fast food and a drLoreto pepper to pt.
[2020-07-10] VITALS (7 sets, daily range): BP systolic 128–155; BP diastolic 72–89; PULSE 80–110; RESP 16–20; TEMP 36.6–37.1; O2SAT 93–99
[2020-07-10 06:28] LABS: INR 1.03 (0.8-1.2)
[2020-07-10 06:31] LABS: Alanine Aminotransferase 29 U/L (0-33); Albumin Level 3.2 g/dL (3.5-5.2); Alkaline Phosphatase 296 IU/L (35-105); Anion Gap 14.7 (5-19); Aspartate Amino Transferase 27 U/L (0-32); Blood Urea Nitrogen 6 mg/dL (6-20); Calcium 7.8 mg/dL (8.5-10.5); Carbon Dioxide 26 mmol/L (22-29); Chloride 102 mmol/L (98-107); Globulin 3.2 g/dL (1.3-4.6); Glomerular Filtration Rate 59.7 mL/min (90-130); Glucose 125 mg/dL (65-115); Magnesium 1.8 mg/dL (1.7-2.3); Osmolality Calculated 287 mOsm/kg (285-295); Phosphorus 3.7 mg/dL (2.5-4.5); Potassium 3.7 mmol/L (3.5-5.1); Sodium 139 mmol/L (136-145); Total Bilirubin 0.7 mg/dL (0.15-1.2); Total Protein 6.4 g/dL (6.6-8.7)
[2020-07-10 06:32] LABS: Lactic Sepsis W/Reflex 2.3 mmol/L (0.5-2.2)
[2020-07-10 06:33] LABS: Basophils % 0.5 %; Eosinophils # 0.2 10^3/uL (0.0-0.8); Eosinophils % 4.3 %; Hemoglobin 10.5 g/dL (11.5-15.3); Lymphocytes # 0.8 10^3/uL (0.8-4.8); Lymphocytes % 22.6 %; Mean Corpuscular HGB Conc 28.4 g/dL (30.0-36.0); Mean Corpuscular Volume 84.7 fL (81-99); Mean Platelet Volume 10.8 fL (7.4-10.4); Monocytes # 0.3 10^3/uL (0.2-0.9); Monocytes % 7.6 %; Neutrophils # 2.38 10^3/uL (1.8-7.7); Neutrophils % 64.7 %; Nucleated Red Blood Cells % 0 %; Platelet Count 290 10^3/cmm (130-400); Red Blood Count 4.37 10^6/uL (4.1-5.3); Red Cell Distribution Width 21.2 % (12.1-15.1); White Blood Count 3.7 10^3/uL (4.0-10.0)
[2020-07-10] MEDS: albuterol 8 gm MDI 1 PUFF INHALATION (07:37)
[2020-07-10 07:53] LABS: Reflex Lactate Order REFLEX LACTIC ORDERD
[2020-07-10] MEDS: potassium chloride ER 10 mEq Tablet 20 MEQ PO (08:02)
[2020-07-10] MEDS: folic acid 1 mg Tablet PO (08:02)
[2020-07-10] MEDS: FUROsemide 40 mg Tablet PO (08:02)
[2020-07-10] MEDS: levETIRAcetam 500 mg Tablet 1000 MG PO (08:02)
[2020-07-10] MEDS: multivitamin therapeutic Tablet 1 TAB PO (08:02)
[2020-07-10] MEDS: levothyroxine 100 mcg Tablet 200 MCG PO (08:02)
[2020-07-10] MEDS: sucralfate 1 gm Tablet PO (08:02)
[2020-07-10] MEDS: thiamine 100 mg Tablet PO (08:03)
[2020-07-10] MEDS: benzonatate 100 mg Capsule PO (08:25)
[2020-07-10] MEDS: fluticasone nasal spray 16gm Btl 1 SPRAY INTRANASAL (09:52)
--- NOTE | 2020-07-10 12:11 | PC.NURSE ---
pt iv taken out and intact. pt discharge instructions explained and questions answered. pt taken to emergency entrance via wheelchair.
--- NOTE | 2020-07-10 15:14 | PM.DCS ---
Discharge Providers Date of Admission: 07/09/20 05:54 Date of Discharge: July 10, 2020 Attending Provider at Admission: Bran Arita MD Attending Provider at Discharge: Klaudia Smith MD Primary Care Provider: Octaviano Sue MD Diagnoses at Discharge Discharge Diagnosis (1) Acute upper GI bleed: Status: Acute (2) Pulmonary embolism: Status: Acute (3) Pancreatitis: Status: Acute (4) S/P infectious endocarditis: Status: Resolved (5) GERD with esophagitis: Status: Acute (6) Anemia: Status: Chronic Qualifiers: Anemia type: unspecified type Qualified Code(s): D64.9 - Anemia, unspecified (7) COPD (chronic obstructive pulmonary disease): Status: Acute Permanent problem details: -oxygen dependent Qualifiers: COPD type: COPD with acute exacerbation Qualified Code(s): J44.1 - Chronic obstructive pulmonary disease with (acute) exacerbation (8) Seizures: Status: Chronic (9) Chronic kidney disease, stage III (moderate): Status: Acute (10) Alcohol abuse: Status: Acute Reason for Visit Reason for Visit: n/v/dizzy Hospital Course Discharge Summary: Delores Mckoen is a 45 year old female with a past medical history of thrombophilia, DVTs, PEs most recently in June 2020 , on therapeutic Lovenox twice daily, COPD, on home oxygen, pancreatitis, ethanol abuse, history of recurrent upper GI bleed, peptic ulcer disease, endocarditis, bacteremia, history of recurrent nausea and vomiting, who presented to [facility] on 07/09 with one episode of hematemesis and nausea vomiting. She has a h/o gastritis in the past. She was admitted for close monitoring and serial Hb checks. There were no further episodes of vomiting or hemtaemesis. There was no ghassan. Hb remained stable to improved at ~10. She remained hemodynamically stable. I had an extensive discussion with her regarding her anticoagulation with Lovenox. On her last discharge in June 2020, I had also discussed the case with her outpatient radiological technologist Dr. Cr. Of note, patient has not been back to see him in spite of stressing the importance of the same. Given that patient has had a recent PE one month ago for which she is resumed on a/c, has a h/o thrombophilia, remaining on anticoagulation is of vital importance. Her episode of GI bleed without concomitant hemodynamic instability or Hb drop appears most likely to be related to excessive retching. She has had multipel EGDs in the past. I presented the option of resuming a/c, though at a lower dose of 1mg/kg once daily and monitoring closely her HB and watching for any signs of bleeding vs discontinuing a/c and increasing the risk of blood clots. Of these, she opted to resume lovenox at half the dosing understanding the risks. I have stressed again the improtance of follow up with hematology and her PCP as an outpatient. Physical Exam Narrative: EXAM NARRATIVE: GEN: Awake, alert and oriented, no acute distress CVS: S1S2 N RS: CTA B/L Abd: Soft, nt/nd , bs+ NURSING STUDENT: no focal neuro deficits Discharge Data Data Completed and Pending: Completed Studies During Hospitalization Category Date Time Status CT abdomen pelvis wo con [id number] Urge nt Cat Scan 07/09/20 02:46 Completed XR chest 1V nichole ble [id number] Stat Exams 07/09/20 02:54 Completed Labs from last 24 hours 07/10/20 07/10/20 07/10/20 06:00 06:00 06:00 WBC RBC Hgb Hct MCV MCH MCHC RDW Plt Count MPV Neut % (Auto) Lymph % (Auto) [place] % (Auto) Eos % (Auto) Baso % (Auto) Neut # (Auto) Lymph # (Auto) [place] # (Auto) Eos # (Auto) Baso # (Auto) Nucleated RBC % (a uto) Nucleated RBCs # PT 13.80 INR 1.03 Sodium 139 Potassium 3.7 Chloride 102 Carbon Dioxide 26 Anion Gap 14.7 BUN 6 Creatinine 1.0 H GFR Calculation 59.7 L Glucose 125 H Calculated Osmolal ity 287 Lactic Acid 2.3 H Calcium 7.8 L Phosphorus 3.7 Magnesium 1.8 Total Bilirubin 0.7 AST 27 ALT 29 Alkaline Phosphata se 296 H Total Protein 6.4 L Albumin 3.2 L Globulin 3.2 07/10/20 06:00 WBC 3.7 L RBC 4.37 Hgb 10.5 L Hct 37.0 MCV 84.7 MCH 24.0 L MCHC 28.4 L RDW 21.2 H Plt Count 290 MPV 10.8 H Neut % (Auto) 64.7 Lymph % (Auto) 22.6 [place] % (Auto) 7.6 Eos % (Auto) 4.3 Baso % (Auto) 0.5 Neut # (Auto) 2.38 Lymph # (Auto) 0.8 [place] # (Auto) 0.3 Eos # (Auto) 0.2 Baso # (Auto) 0.0 Nucleated RBC % (a uto) 0 Nucleated RBCs # 0.0 PT INR Sodium Potassium Chloride Carbon Dioxide Anion Gap BUN Creatinine GFR Calculation Glucose Calculated Osmolal ity Lactic Acid Calcium Phosphorus Magnesium Total Bilirubin AST ALT Alkaline Phosphata se Total Protein Albumin Globulin Vitals: Last Vital Signs Temp 98.1 F 07/10/20 12:10 Pulse 110 H 07/10/20 12:10 Resp 20 H 07/10/20 12:10 BP 128/89 07/10/20 12:10 Pulse Ox 97 07/10/20 12:10 Discharge Plan Discharge Patient Disposition: Home Condition: Stable Prescriptions: New sucralfate 1 gram Tablet 1 g PO AC&BEDTIME 14 Days Qty: 28 RF: 0 folic acid 1 mg Tablet 1 mg PO DAILY Qty: 0 RF: 0 Vitamin B-1 (mononitrate) 100 mg Tablet 100 mg PO DAILY Qty: 0 RF: 0 Umeclidinium [I 1 inh inhalation DAILY Qty: 0 RF: 0 oxycodone 5 mg capsule 5 mg PO Q12H PRN (Reason: pain) 5 Days Qty: 10 RF: 0 Continued albuterol sulfate 90 mcg/actuation HFA aerosol inhaler 2 inh INHALATION Q4H PRN (Reason: shortness of breath or wheezing) Qty: 6.7 RF: 0 epinephrine [EpiPen 2-Tim] 0.3 mg/0.3 mL auto-injector 0.3 mg IM PRN PRN (Reason: Allergic Reaction) RF: 0 levetiracetam [Keppra] 500 mg tablet 1,000 mg PO BID RF: 0 potassium chloride [Klor-Con M20] 20 mEq tablet,ER particles/crystals 20 meq PO BID Qty: 30 RF: 0 liothyronine [Cytomel] 25 mcg tablet 25 mcg PO DAILY Qty: 90 RF: 3 levothyroxine 200 mcg capsule 200 mcg PO DAILY Qty: 90 RF: 3 furosemide 40 mg tablet 40 mg PO BID Qty: 60 RF: 8 Spiriva Respimat 2.5 mcg/actuation mist 2 puff INHALATION QAM 90 Days Qty: 4 RF: 2 ondansetron 4 mg film 4 mg PO DAILY PRN (Reason: nausea and vomiting) Qty: 10 RF: 0 dextromethorphan-guaifenesin 10-100 mg/5 mL Syrup 10 ml PO Q4H PRN (Reason: Cough) Qty: 30 RF: 0 benzonatate 100 mg Capsule 200 mg PO TID Qty: 20 RF: 0 pantoprazole 40 mg Tablet,Delayed Release (Dr/Ec) 40 mg PO BID Qty: 20 RF: 0 fluticasone propionate [Flonase Allergy Relief] 50 mcg/actuation spray,suspension 1 spray INTRANASAL BID Qty: 9.9 RF: 0 budesonide 0.25 mg/2 mL suspension for nebulization 0.25 mg INHALATION BID Qty: 60 RF: 0 ipratropium-albuterol 0.5 mg-3 mg(2.5 mg base)/3 mL solution for nebulization 3 ml INHALATION Q6H Qty: 15 RF: 0 albuterol sulfate 0.63 mg/3 mL solution for nebulization 0.63 mg INHALATION Q4H PRN (Reason: Shortness Of Breath) RF: 0 Changed enoxaparin 100 mg/mL syringe 100 mg SUBCUT DAILY Qty: 0 RF: 0 Discharge Orders: Discharge Order (Routine); Ordered 07/10/20 Ordered By: Klaudia Smith Referrals: Octaviano Sue MD [Primary Care Provider] - 4-7 days (Please call Dr. Sue's office and make an appointment with them within 7 days. [phone]) Arvind Cr MD [Hospitalist] - 7-10 days (Please call [facility] and make an appointment with Dr. Cr. [phone]) Discharge Diet: Usual diet Discharge Activity: Resume usual activity Patient Instructions: Sucralfate (By mouth), Thiamine (Vitamin B-1) (By mouth), Folic Acid (By mouth), Oxycodone, Rapid Release (By mouth), Enoxaparin (Injection), Umeclidinium (By breathing), Gastrointestinal Bleeding (DC), Chronic Kidney Disease (DC), Abuse of Alcohol (DC) Discharge Date/Time: 07/10/20 12:12 Discharge Attestations Time Spent in Discharge Care*: greater than 30 min Specific Discharge Activities: Specific discharge activities: educating patient and evaluating patient/reviewing data Status at Discharge: Cognitive status at discharge: cognitively intact, Behavioral status at discharge: cooperative, Quality Metrics Clinical Quality Measures During this hospital stay, did patient experience: None Coding Level of Care Code Acute Microwave Engineer for g Fwd Diagnoses Acute upper GI bleed K92.2 Pulmonary embolism I26.99 Pancreatitis K85.90 S/P infectious endocarditis Z86.79 GERD with esophagitis K21.0 Anemia D64.9 Anemia type: unspecified type COPD (chronic obstructive pulmonary disease) J44.1 COPD type: COPD with acute exacerbation Seizures R56.9 Chronic kidney disease, stage III (moderate) N18.3 Alcohol abuse F10.10
--- NOTE | 2020-07-11 17:52 | PC.RESP ---
Pulmonary Rehab information sent to patient.
== END 2020-07-10 12:12 | disposition home or self-care (01) ==
LOC: ER 05:25 → MEDSURG 06:03
PROVIDERS: Emergency Medicine; Nurse Practitioner Family; Admitting Provider Family Medicine; PCP Internal Medicine; Visit Provider Student in an Organized Health Care Education/Training Program
DX: K92.2 Gastrointestinal hemorrhage, unspecified (principal); I26.99 Other pulmonary embolism without acute cor pulmonale; K85.90 Acute pancreatitis without necrosis or infection, unspecified; Z86.79 Personal history of other diseases of the circulatory system; K21.00 Gastro-esophageal reflux disease with esophagitis, without bleeding; D64.9 Anemia, unspecified; J44.1 Chronic obstructive pulmonary disease with (acute) exacerbation; N18.30 Chronic kidney disease, stage 3 unspecified; F10.10 Alcohol abuse, uncomplicated; Z99.81 Dependence on supplemental oxygen; Z87.11 Personal history of peptic ulcer disease; Z79.52 Long term (current) use of systemic steroids; I50.30 Unspecified diastolic (congestive) heart failure; B19.20 Unspecified viral hepatitis C without hepatic coma; Z86.718 Personal history of other venous thrombosis and embolism
CPT/HCPCS: 12345; 36415; 71045; 74176; 80053; 80307; 83605; 83690; 83735; 84100; 84484; 85014; 85018; 85025; 85610; 86850; 86900; 90471; 90686; 93005; 94640; 94664; 96361; 96365; 96372; 96375; 97110; 97116; 97161; 99283; 99285; C9113; G0378; J1200; J2405; J2765; J3411; J3535; J7040; J7799

== ENCOUNTER 2020-07-24 16:23 | Inpatient (IN) | payer MEDICARE, MEDICAID, SELFPAY ==
[2020-07-24] VITALS (10 sets, daily range): BP systolic 107–147; BP diastolic 68–93; PULSE 91–106; RESP 18–26; TEMP 36.4–36.8; O2SAT 96–100; BMI 38.4
--- NOTE | 2020-07-24 16:30 | ECG_ITS ---
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 Measurements Intervals [place] Rate: 91 P: 41 AL: 158 QRS: -6 QRSD: 89 T: 56 QT: 389 QTc: 481 Interpretive Statements SINUS RHYTHM LOW QRS VOLTAGE IN PRECORDIAL LEADS [QRS DEFLECTION < 1.0 mV IN CHEST LEADS] NONSPECIFIC T-WAVE ABNORMALITY Compared to ECG 07/09/2020 05:21:49 T-wave abnormality now present Electronically Signed On 07-24-2020 18:38:44 MOLD MECHANIC by Johnny Walsh M.D. [id number]
--- NOTE | 2020-07-24 16:42 | XRR_ITS ---
PROCEDURE INFORMATION: Exam: XR Chest, 1 View Exam date and time: 07/24/2020 4:45 PM Age: 45 years old Clinical indication: Chest pain TECHNIQUE: Imaging protocol: XR of the chest Views: 1 view. COMPARISON: CR XR chest 1V portable [id number] 07/09/2020 3:24 AM FINDINGS: Lungs: Unremarkable. No consolidation. Pleural space: Unremarkable. No pleural effusion. No pneumothorax. Heart/Mediastinum: Unremarkable. No cardiomegaly. Hiatal hernia Bones/joints: Unremarkable. Other findings: Similar findings are seen on prior XR/XR chest 1V portable [id number] IMPRESSION: 1. No acute findings. 2. Hiatal hernia
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
[2020-07-24] MEDS: sodium chloride 0.9% 1,000 ML 100 ML IV (17:00)
--- NOTE | 2020-07-24 17:19 | PC.NURSE ---
Hyperactive bowel sounds
[2020-07-24] MEDS: pantoprazole 40 MG in sodium chloride 0.9% (plus) 100 ML 20 MG IV ×2 (17:30→23:12)
[2020-07-24] MEDS: pantoprazole 40 mg SDV 80 MG IVP (18:00)
[2020-07-24] MEDS: ondansetron 2 mg/ML SDV 2 mL 4 MG IVP (18:00)
[2020-07-24 18:17] LABS: Basophils # 0.1 10^3/uL (0.0-0.1); Basophils % 1.3 %; Eosinophils # 0.2 10^3/uL (0.0-0.8); Eosinophils % 5.9 %; Hematocrit 29.2 % (37.0-47.0); Hemoglobin 8.1 g/dL (11.5-15.3); Lymphocytes % 51.5 %; Mean Corpuscular HGB Conc 27.7 g/dL (30.0-36.0); Mean Corpuscular Hemoglobin 23.8 pg (28.0-34.0); Mean Corpuscular Volume 85.6 fL (81-99); Mean Platelet Volume 9.9 fL (7.4-10.4); Monocytes # 0.3 10^3/uL (0.2-0.9); Monocytes % 6.9 %; Neutrophils # 1.32 10^3/uL (1.8-7.7); Neutrophils % 33.9 %; Nucleated Red Blood Cells % 0 %; Platelet Count 335 10^3/cmm (130-400); Red Blood Count 3.41 10^6/uL (4.1-5.3); Red Cell Distribution Width 20.3 % (12.1-15.1); White Blood Count 3.9 10^3/uL (4.0-10.0)
[2020-07-24] MEDS: LORazepam 2 mg/mL INJ 1 mL 1 MG IVP (18:30)
--- NOTE | 2020-07-24 18:43 | ECG_ITS ---
[facility] Test Date: 2020-07-24 Pat Name: Delores Mckeon Department: Room: Gender: Female Glove Operator: : 1975 Requested By: Filomena Valentine Order Number: [id number] Garland MD: Johnny Walsh M.D. Measurements Intervals [place] Rate: 93 P: 39 LA: 161 QRS: 3 QRSD: 71 T: 33 QT: 351 QTc: 438 Interpretive Statements SINUS RHYTHM LOW QRS VOLTAGE IN PRECORDIAL LEADS [QRS DEFLECTION < 1.0 mV IN CHEST LEADS] NONSPECIFIC ST & T-WAVE ABNORMALITY Compared to ECG 07/24/2020 16:33:23 No significant changes Electronically Signed On 07-24-2020 19:05:51 PAPER CUP MACHINE OPERATOR by Johnny Walsh M.D. [email or web address]
[2020-07-24 18:49] LABS: Ketone (Acetest) Serum Negative (Negative)
[2020-07-24 19:01] LABS: Alanine Aminotransferase 16 U/L (0-33); Albumin Level 3.1 g/dL (3.5-5.2); Alkaline Phosphatase 172 IU/L (35-105); Aspartate Amino Transferase 21 U/L (0-32); Blood Urea Nitrogen 6 mg/dL (6-20); Calcium 7.4 mg/dL (8.5-10.5); Carbon Dioxide 27 mmol/L (22-29); Chloride 110 mmol/L (98-107); Creatine Phosphokinase 37 U/L (26-192); Glomerular Filtration Rate 90.1 mL/min (90-130); Glucose 104 mg/dL (65-115); Lipase 50 U/L (13-60); Magnesium 2.1 mg/dL (1.7-2.3); Osmolality Calculated 298 mOsm/kg (285-295); Sodium 145 mmol/L (136-145); Total Bilirubin 0.2 mg/dL (0.15-1.2); Total Protein 6.1 g/dL (6.6-8.7)
[2020-07-24 19:02] LABS: Troponin(5th) Baseline 6 ng/L (0-10)
[2020-07-24 19:04] LABS: Alcohol Level 312 mg/dL (0-10)
[2020-07-24 19:07] LABS: Troponin 5 2HR Delta 0 ABS# (0-10)
[2020-07-24 19:13] LABS: INR 1.09 (0.8-1.2); Partial Thromboplastin Time 25.4 SECONDS (23.9-36.7)
[2020-07-24 19:18] LABS: HCG, Serum Qual Negative (Negative)
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
[2020-07-24 20:13] LABS: Lactic Sepsis W/Reflex 1.1 mmol/L (0.5-2.2)
[2020-07-24] MEDS: HYDROmorphone 1 mg/mL INJ 1 mL IVP (21:15)
[2020-07-25] VITALS (22 sets, daily range): BP systolic 89–133; BP diastolic 43–87; PULSE 84–117; RESP 14–24; TEMP 36.1–37.4; O2SAT 92–100
[2020-07-25] MEDS: LORazepam 2 mg Tablet PO
[2020-07-25] MEDS: morphine 4 mg/mL SDV 1 mL 2 MG IVP ×6 (03:48→20:23)
[2020-07-25] MEDS: sodium chloride 0.9% (100 ml) 100 ML 50 ML (03:58)
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
[2020-07-25 07:03] LABS: Alanine Aminotransferase 18 U/L (0-33); Albumin Level 3.2 g/dL (3.5-5.2); Alkaline Phosphatase 177 IU/L (35-105); Anion Gap 12.1 (5-19); Aspartate Amino Transferase 23 U/L (0-32); Blood Urea Nitrogen 6 mg/dL (6-20); Calcium 7.1 mg/dL (8.5-10.5); Carbon Dioxide 27 mmol/L (22-29); Chloride 108 mmol/L (98-107); Globulin 2.7 g/dL (1.3-4.6); Glomerular Filtration Rate 90.1 mL/min (90-130); Glucose 100 mg/dL (65-115); Osmolality Calculated 294 mOsm/kg (285-295); Potassium 4.1 mmol/L (3.5-5.1); Sodium 143 mmol/L (136-145); Total Bilirubin 2.9 mg/dL (0.15-1.2); Total Protein 5.9 g/dL (6.6-8.7)
--- NOTE | 2020-07-25 08:00 | PC.NURSE ---
Patient requesting pain and nerve medication . When I asked patient to clarify what medications she was asking for she stated medications Morphine and Ativan. I explained to the patient that I would like to treat her pain with the Morphine and then reevaluate her need for Ativan later on in the morning as I did not feel comfortable giving her both medications at the same time. I explained the risks of administering both mediations together and this low blood pressures patient has exhibited through the night. Patient was in agreement to take Morphine only at this time. Will continue to monitor.
[2020-07-25] MEDS: FUROsemide 10 mg/mL SDV 4mL 40 MG IVP (08:15)
[2020-07-25] MEDS: pantoprazole 40 mg SDV IVP ×2 (08:15→17:14)
--- NOTE | 2020-07-25 09:29 | PC.CHAP ---
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 core drill operator visit [] Patient/Family/Request visit [] Outpatient visit [] Follow-up visit [] Physician referral [] Code/Alert [x] Routine visit [] Staff referral [] Actively dying [] Patient sleeping [] Family support [] [] Out of room [] Palliative care [] [] Receiving care in room [] Pre-surgical visit [] Trauma [] Long length of stay [] ICU visit [] Other: Relational/Emotional Strength [] Patient feels connected with others/family/visitors/staff [] Distress [] Loneliness/isolation [] Abandonment Spirituality of Patient [] Person of Angy [] Attends Caodaism of their Angy [] Believes in Prayer [] Reads Bible or Islam materials [] There are Spiritual issues to be addressed Physician Office Rep Interventions [x] Prayer [x] Active listening [x] Non-anxious presence [x] Spiritual/emotional support [] Crisis/trauma care [] Spiritual counseling [] Bereavement support [] Provided bereavement packet [] Provided Bible/devotional materials [] Provided toy/stuffed animal, coloring book to patient or family member [] Provided Communion [] Anointing/[place] [] Salvation [x] Completed spiritual assessment [] Other: Impact on Illness or Injury [] Angry [] Fearful [] Anxious [] Often cries [] Exhaustion [] Unable to work [] Unable to attend adventism [] Unable to walk/stand [] Unable to read [] Unable to drive [] Unable to eat/drink [] Unable to sleep [] Unable to be with family [] Patient intubated [] Other: Summary patient not resting well... pacing in room Time spent with patient 5 min
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
--- NOTE | 2020-07-25 11:12 | PC.NURSE ---
Patient has been putting on her call light several times and standing in the hallway requesting Ativan to be given to her. Patient appears to be in no distress at this time. I went to patient room to perform CIWA ptotocol scoring before giving patient Ativan. Patient exhibited mild nausea and anxiety. Patient denied any headache or hallucinations. Tremors could not be seen but felt with arms extended. Patient scored a 4 on CIWA protocol scoring scale. I explained to the patient that the current order for Ativan that I had was ordered to be given only if she scored 10 or higher on her CIWA protocol score. I explained that based on my assessment that she has not scored high enough at this time and we can re-evaluate at a later time. Patient was not happy with this answer and stated That does not make any sense because they gave it to me this morning. I explained that that was on the nurse that assessed her this morning and that if that nurse felt she scored high enough to be given the Ativan then that was that nurse's decision but my decision based on my assessment was that she does not exhibit the need to be given the Ativan at this time. I asked patient what she usually takes at home for anxiety. Patient reports that she takes Klonopin 1mg PRN at home. I did not find this medication on her home medication list so I asked who prescribed her this medication. Patient states that [facility]. I told the patient that I would be happy to call the doctor and see if he would be willing to place an order for this medication. Patient stated You done upset me now. Patient did not voice a decision to previous question and proceeded to ignore me watching TV. Will continue to monitor
--- NOTE | 2020-07-25 13:15 | PM.PN ---
Subjective Subjective: Interval history: Chart reviewed, patient known to me from previous admission, had EGD done earlier this morning showing hiatal hernia and gastritis. Received 1 unit of PRBCs, repeat CBC pending. Medications: Reviewed: Yes Medication Review Details: Active Medications Generic Name Dose Route Start Last Admin Trade Name Freq PRN Reason Stop Dose Admin Albuterol/Ipratrop ium 3 ml 07/24/20 22:03 Ipratropium-Albu terol 3 Ml Neb INHALATION Q6H PRN SHORTNESS OF MICK TH Folic Acid 1 mg 07/25/20 09:00 07/25/20 08:15 Folic Acid 1 Mg Tablet PO Not Given DAILY JAKE Furosemide 40 mg 07/25/20 09:00 07/25/20 08:15 Furosemide 10 Mg /Ml Sdv 4ml IVP 40 mg DAILY JAKE Administration Lorazepam 2 mg 07/24/20 22:03 Lorazepam 2 Mg/M l Inj 1 Ml IM PROTOCOL PRN ALCOWD Protocol Lorazepam 2 mg 07/24/20 22:03 07/25/20 00:00 Lorazepam 2 Mg T ablet PO 2 mg PROTOCOL PRN Administration WITHDRAWAL Protocol Morphine Sulfate 2 mg 07/24/20 22:03 07/25/20 12:05 Morphine 4 Mg/Ml Sdv 1 Ml IVP 2 mg Q4H PRN Administration SEVERE PAIN Multivitamins Ther apeutic 1 tab 07/25/20 09:00 07/25/20 08:15 Multivitamin The rapeutic Tablet PO Not Given DAILY JAKE Pantoprazole Sodiu m 40 mg 07/25/20 09:00 07/25/20 08:15 Pantoprazole 40 Mg Sdv IVP 40 mg BID JAKE Administration Thiamine Mononitra te 100 mg 07/25/20 09:00 07/25/20 08:15 Thiamine 100 Mg Tablet PO Not Given DAILY JAKE acetaminophen [From Percocet] Allergy (Verified 07/09/20 02:44) Unknown cephalexin [From Keflex] Allergy (Verified 07/09/20 02:44) Angioedema erythromycin base Allergy (Verified 07/09/20 02:44) Unknown hydrocodone Allergy (Verified 07/09/20 02:44) Unknown lamotrigine [From Lamictal] Allergy (Verified 07/09/20 02:44) ALGY-Anaphylaxis oxycodone [From Percocet] Allergy (Verified 07/09/20 02:44) Unknown Penicillins Allergy (Verified 07/09/20 02:44) Unknown rifampin Allergy (Verified 07/09/20 02:44) Unknown Sulfa (Sulfonamide Antibiotics) Allergy (Verified 07/09/20 02:44) Unknown sulfadiazine Allergy (Verified 07/09/20 02:44) Unknown Tetracyclines Allergy (Verified 07/09/20 02:44) Unknown Vitals/I&O/Wt Last Vital Signs Temp 97 F L 07/25/20 11:31 Pulse 96 07/25/20 11:42 Resp 18 07/25/20 12:05 BP 133/87 07/25/20 11:42 Pulse Ox 100 07/25/20 11:42 07/24/20 07/25/20 07/25/20 22:59 06:59 14:59 Intake Total 350 / 350 Output Total 400 / 400 Balance -50 / -50 Weight last 48 hrs Weight 98.43 kg Physical Exam Const: COMMON NORMALS: no acute distress, patient oriented x3 and alert GENERAL APPEARANCE: cooperative and comfortable NUTRITIONAL APPEARANCE: obese morbidly obese ORIENTATION/CONSCIOUSNESS: Yes awake OTHER: -resting quietly in bed HENMT: COMMON NORMALS: normocephalic, atraumatic, hearing grossly normal bilaterally and moist oral mucous membranes HEAD & SCALP: normocephalic and atraumatic Eye: COMMON NORMALS: Equal, round and reactive pupils present, EOMs intact bilaterally and conjunctivae normal CONJUNCTIVA: Yes conjunctivae normal PUPIL: Yes Equal, round and reactive pupils present Neck/C-Spine: COMMON NORMALS: full ROM GENERAL: Yes normal visual inspection and Yes trachea midline Resp: COMMON NORMALS: normal respiratory effort, No retractions, No use of accessory muscles and clear to auscultation bilaterally EFFORT & INSPECTION: Yes able to speak in complete sentences, Yes symmetric chest movement and No tachypneic AUSCULTATION: clear to auscultation bilaterally Cardio: COMMON NORMALS: regular rate, regular rhythm, S1 normal heart sound present, S2 normal heart sound present and No murmurs present (Cardio) RATE: regular rate RHYTHM: regular rhythm HEART SOUNDS: S1 normal heart sound present and S2 normal heart sound present GI: COMMON NORMALS: Normal to inspection, nondistended, normoactive bowel sounds present, Soft to palpation and non-tender INSPECTION: Yes central obesity PALPATION: Yes Soft to palpation Extremity: COMMON NORMALS: normal to inspection, full ROM and no clubbing, cyanosis or edema; negative for no pedal edema Neuro: COMMON NORMALS: patient oriented x3, moves all extremities, no focal motor deficits, no sensory deficits noted and gait normal SENSORIUM/ORIENTATION: Yes alert Psych: COMMON NORMALS: mental status grossly normal, Normal thought process present, cooperative, normal affect and speech normal SPEECH: Yes normal speech THOUGHT PROCESS: Normal thought process present Skin: COMMON NORMALS: no rashes or lesions noted, no jaundice, no petechiae and no mottling GENERAL SKIN EXAM: no rashes or lesions noted Data : 07/24/20 17:12 07/25/20 05:40 A&P Assessment and plan (1) Acute upper GI bleed: -Has had multiple prior evaluations and hospital admissions for the same -s/p EGD this morning showing hiatal hernia and gastritis, biopsy obtained for H. pylori testing -On PPI, Carafate -Clear liquid diet for now, advance as tolerated -Transfused 1 unit of PRBCs, continue to monitor H&H -Continue to monitor for bleeding Status: Acute (2) Pulmonary embolism: -recently diagnosed and on treatment with lovenox; once daily dosing due to anemia Status: Acute Qualifiers: Acute cor pulmonale presence: without acute cor pulmonale Chronicity: acute Pulmonary embolism type: unspecified Qualified Code(s): I26.99 - Other pulmonary embolism without acute cor pulmonale (3) Alcohol abuse: -Noted to be acutely intoxicated on admission, alcohol level of 312 -On CIWA protocol Status: Acute Additional A&P Information -Oxygen dependent COPD, 3-4 L at baseline; follows up with Dr. Escalera -Has known history of anemia with intermittent transfusion dependence -hx of seizures; on Keppra -R pulmonary nodule; surveillance imaging -Chronic diastolic CHF with no acute exacerbation; on Lasix; monitor for fluid overload particularly if need for transfusion of additional blood products. Echo (06/2019): EF=70%, no RWMA, trace to mild TR, trace DC -HTN; continue to monitor vital signs -Morbid obesity: BMI-38 kg/m2 -Hypothyroidism; resume thyroid replacement -s/p amputation of 3rd and 4th digits done in 05/2019 at [facility] secondary to osteomyelitis -hx of hepatitis C; untreated -hx of DVT/PE, s/p IVC filter; AC on hold for now due to worsening anemia -Bipolar disorder -CKD stage 2-3; baseline Cr 0.9-1. Continue to monitor renal function, avoid nephrotoxins, renally dose meds -CLD for now; advance as tolerated -GI ppx with PPI -DVT ppx with SCDs; AC on hold -Dispo: home with HH ([facility]) -Code status: FULL code Attestations Medical Necessity Statement*: Patient requires hospitalization for continued management of acutely worsening anemia, upper GI bleed s/p endoscopy. Time Spent in Patient Care: 16 - 35 minutes (>than 50% of time spent in counselling and/or direct pt care on unit). 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
--- NOTE | 2020-07-25 15:12 | PM.PACU ---
PACU note Post-Anesthesia Exam: awake and vital signs stable Disposition: back to floor
[2020-07-25] MEDS: ondansetron 2 mg/ML SDV 2 mL 4 MG IVP (17:14)
[2020-07-26] VITALS (12 sets, daily range): BP systolic 113–129; BP diastolic 78–86; PULSE 82–96; RESP 14–22; TEMP 36.7–37.7; O2SAT 93–99
[2020-07-26] MEDS: ondansetron 2 mg/ML SDV 2 mL 4 MG IVP ×2 (00:17→08:52)
[2020-07-26] MEDS: morphine 4 mg/mL SDV 1 mL 2 MG IVP ×4 (00:35→13:59)
[2020-07-26 05:41] LABS: Basophils % 0.9 %; Eosinophils # 0.2 10^3/uL (0.0-0.8); Eosinophils % 5.2 %; Hematocrit 29.5 % (37.0-47.0); Hemoglobin 8.5 g/dL (11.5-15.3); Lymphocytes # 0.5 10^3/uL (0.8-4.8); Lymphocytes % 14.5 %; Mean Corpuscular HGB Conc 28.8 g/dL (30.0-36.0); Mean Corpuscular Volume 83.3 fL (81-99); Mean Platelet Volume 10.1 fL (7.4-10.4); Monocytes # 0.2 10^3/uL (0.2-0.9); Monocytes % 5.8 %; Neutrophils # 2.52 10^3/uL (1.8-7.7); Neutrophils % 73.3 %; Nucleated Red Blood Cells % 0 %; Red Blood Count 3.54 10^6/uL (4.1-5.3); Red Cell Distribution Width 18.7 % (12.1-15.1); White Blood Count 3.4 10^3/uL (4.0-10.0)
[2020-07-26 06:42] LABS: H. Pylori / CLO Test Negative
[2020-07-26 07:07] LABS: Platelet Count 274 10^3/cmm (130-400)
[2020-07-26 07:08] LABS: Slide Review Slide Review Perform
[2020-07-26] MEDS: FUROsemide 10 mg/mL SDV 4mL 40 MG IVP (08:52)
[2020-07-26] MEDS: pantoprazole 40 mg SDV IVP (08:52)
[2020-07-26] MEDS: thiamine 100 mg Tablet PO (08:53)
[2020-07-26] MEDS: folic acid 1 mg Tablet PO (08:53)
[2020-07-26] MEDS: multivitamin therapeutic Tablet 1 TAB PO (08:53)
--- NOTE | 2020-07-26 12:49 | PC.RESP ---
PULMONARY REHAB INFORMATION SENT TO PATIENT.
--- NOTE | 2020-07-26 13:21 | ANE.PACU2 ---
Inpatient post-anesthesia follow up: Airway intact: Yes Vital signs: Temperature 98.1 F Pulse Rate [Right Radial] 94 Pulse Rate 82 Respiratory Rate 20 Blood Pressure [Le ft Arm] 147/93 Blood Pressure 129/78 Pulse Oximetry 99 Oxygen Delivery Me thod Nasal Cannula Oxygen Flow Rate 2.5 Fraction of Inspir ed Oxygen Hydration adequate: Yes Nausea and vomiting: No Pain level: 1 Mental status: Baseline
--- NOTE | 2020-07-26 14:30 | PM.DCS ---
Discharge Providers Date of Admission: 07/24/20 21:03 Date of Discharge: July 26, 2020 Attending Provider at Admission: Magda Dennis MD Attending Provider at Discharge: Latha Matson MD Consults: General surgery, Dr. Clements Primary Care Provider: Octaviano Sue MD Diagnoses at Discharge Discharge Diagnosis (1) Acute upper GI bleed: Status: Acute Permanent problem details: -Has had multiple prior evaluations and hospital admissions for the same -s/p EGD showing hiatal hernia and gastritis, biopsy obtained for H. pylori testing -On PPI, Carafate -Transfused 1 unit of PRBCs, stable H&H (2) Pulmonary embolism: Status: Acute Permanent problem details: -recently diagnosed and on treatment with lovenox; once daily dosing due to anemia Qualifiers: Acute cor pulmonale presence: without acute cor pulmonale Chronicity: acute Pulmonary embolism type: unspecified Qualified Code(s): I26.99 - Other pulmonary embolism without acute cor pulmonale (3) Alcohol abuse: Status: Acute Permanent problem details: -Noted to be acutely intoxicated on admission, alcohol level of 312 -On CIWA protocol Other Information Additional DC diagnoses/information: -Oxygen dependent COPD, 3-4 L at baseline; follows up with Dr. Escalera -Has known history of anemia with intermittent transfusion dependence -hx of seizures; on Keppra -R pulmonary nodule; surveillance imaging -Chronic diastolic CHF with no acute exacerbation; on Lasix; monitor for fluid overload particularly if need for transfusion of additional blood products. Echo (06/2019): EF=70%, no RWMA, trace to mild TR, trace MT -HTN; continue to monitor vital signs -Morbid obesity: BMI-38 kg/m2 -Hypothyroidism; resume thyroid replacement -s/p amputation of 3rd and 4th digits done in 05/2019 at [facility] secondary to osteomyelitis -hx of hepatitis C; untreated -hx of DVT/PE, s/p IVC filter; AC on hold for now due to worsening anemia -Bipolar disorder -CKD stage 2-3; baseline Cr 0.9-1. Continue to monitor renal function, avoid nephrotoxins, renally dose meds -laryngitis; likely viral, supportive care Reason for Visit Reason for Visit: Hematemesis, black tarry stools Hospital Course Hospital Course Patient was admitted to the medical surgical floor and general surgery consulted due to noted concern for acute upper GI bleed. Patient has a known history of chronic anemia with intermittent requirement for transfusion. She had been admitted earlier in the month for similar symptoms. She has had an endoscopy showing hiatal hernia and gastritis, biopsy obtained for H. pylori testing is pending. She did require transfusion of 1 unit of PRBCs and hemoglobin has been stable thereafter. Oral intake was introduced and advanced as tolerated. She was noted to be acutely intoxicated on admission with an alcohol level of 312, so covered with CIWA protocol. She has been maintained on her baseline oxygen requirement of 2 to 3 L nasal cannula. She will require appropriate follow-up with her primary care provider within 1 week and continued monitoring of her hemoglobin as she will likely require further transfusion in the near future. She was recently diagnosed with PE and has been on once daily dosing of Lovenox which was held during this hospitalization secondary to acutely worsening anemia. She can resume her anticoagulation with continued close monitoring of her hemoglobin. She may not be a good candidate for long-term anticoagulation given transfusion dependent anemia. Physical Exam Const: COMMON NORMALS: no acute distress, patient oriented x3 and alert GENERAL APPEARANCE: cooperative and comfortable NUTRITIONAL APPEARANCE: obese morbidly obese ORIENTATION/CONSCIOUSNESS: Yes awake OTHER: -resting quietly in bed HENMT: COMMON NORMALS: normocephalic, atraumatic, hearing grossly normal bilaterally and moist oral mucous membranes HEAD & SCALP: normocephalic and atraumatic OTHER: -hoarse voice Eye: COMMON NORMALS: Equal, round and reactive pupils present, EOMs intact bilaterally and conjunctivae normal CONJUNCTIVA: Yes conjunctivae normal PUPIL: Yes Equal, round and reactive pupils present Neck/C-Spine: COMMON NORMALS: full ROM GENERAL: Yes normal visual inspection and Yes trachea midline Resp: COMMON NORMALS: normal respiratory effort, No retractions, No use of accessory muscles and clear to auscultation bilaterally EFFORT & INSPECTION: Yes able to speak in complete sentences, Yes symmetric chest movement and No tachypneic AUSCULTATION: clear to auscultation bilaterally Cardio: COMMON NORMALS: regular rate, regular rhythm, S1 normal heart sound present, S2 normal heart sound present and No murmurs present (Cardio) RATE: regular rate RHYTHM: regular rhythm HEART SOUNDS: S1 normal heart sound present and S2 normal heart sound present GI: COMMON NORMALS: Normal to inspection, nondistended, normoactive bowel sounds present, Soft to palpation and non-tender INSPECTION: Yes central obesity PALPATION: Yes Soft to palpation Extremity: COMMON NORMALS: normal to inspection, full ROM and no clubbing, cyanosis or edema; negative for no pedal edema Neuro: COMMON NORMALS: patient oriented x3, moves all extremities, no focal motor deficits, no sensory deficits noted and gait normal SENSORIUM/ORIENTATION: Yes alert Psych: COMMON NORMALS: mental status grossly normal, Normal thought process present, cooperative, normal affect and speech normal SPEECH: Yes normal speech THOUGHT PROCESS: Normal thought process present Skin: COMMON NORMALS: no rashes or lesions noted, no jaundice, no petechiae and no mottling GENERAL SKIN EXAM: no rashes or lesions noted Discharge Data Data Completed and Pending: Completed Studies During Hospitalization Category Date Time Status XR chest 1V nichole ble [id number] Stat Exams 07/24/20 16:42 Completed Labs from last 24 hours 07/26/20 07/25/20 05:24 11:34 WBC 3.4 L RBC 3.54 L Hgb 8.5 L Hct 29.5 L MCV 83.3 MCH 24.0 L MCHC 28.8 L RDW 18.7 H Plt Count 274 MPV 10.1 Neut % (Auto) 73.3 Lymph % (Auto) 14.5 [place] % (Auto) 5.8 Eos % (Auto) 5.2 Baso % (Auto) 0.9 Neut # (Auto) 2.52 Lymph # (Auto) 0.5 L [place] # (Auto) 0.2 Eos # (Auto) 0.2 Baso # (Auto) 0.0 Nucleated RBC % (a uto) 0 Nucleated RBCs # 0.0 H. pylori IgG Anti body Negative Vitals: Last Vital Signs Temp 98.1 F 07/26/20 11:57 Pulse 82 07/26/20 11:57 Resp 20 H 07/26/20 13:59 BP 129/78 07/26/20 11:57 Pulse Ox 99 07/26/20 11:57 Discharge Plan Discharge Patient Disposition: Home Condition: Stable Prescriptions: New clonazepam 0.5 mg tablet 0.25 mg PO BID PRN (Reason: anxiety) Qty: 14 RF: 0 Zofran 4 mg tablet 4 mg PO Q8H PRN (Reason: nausea and vomiting) 5 Days Qty: 15 RF: 0 oxycodone 5 mg tablet 5 mg PO BID PRN (Reason: Pain) 7 Days Qty: 14 RF: 0 Continued albuterol sulfate 90 mcg/actuation HFA aerosol inhaler 2 inh INHALATION Q4H PRN (Reason: shortness of breath or wheezing) Qty: 6.7 RF: 0 epinephrine [EpiPen 2-Tim] 0.3 mg/0.3 mL auto-injector 0.3 mg IM PRN PRN (Reason: Allergic Reaction) RF: 0 levetiracetam [Keppra] 500 mg tablet 1,000 mg PO BID RF: 0 potassium chloride [Klor-Con M20] 20 mEq tablet,ER particles/crystals 20 meq PO BID Qty: 30 RF: 0 liothyronine [Cytomel] 25 mcg tablet 25 mcg PO DAILY Qty: 90 RF: 3 levothyroxine 200 mcg capsule 200 mcg PO DAILY Qty: 90 RF: 3 furosemide 40 mg tablet 40 mg PO BID Qty: 60 RF: 8 folic acid 1 mg Tablet 1 mg PO DAILY Qty: 0 RF: 0 thiamine mononitrate (vit B1) [Vitamin B-1 (mononitrate)] 100 mg Tablet 100 mg PO DAILY Qty: 0 RF: 0 Spiriva Respimat 2.5 mcg/actuation mist 2 puff INHALATION QAM 90 Days Qty: 4 RF: 2 dextromethorphan-guaifenesin 10-100 mg/5 mL Syrup 10 ml PO Q4H PRN (Reason: Cough) Qty: 30 RF: 0 benzonatate 100 mg Capsule 200 mg PO TID Qty: 20 RF: 0 pantoprazole 40 mg Tablet,Delayed Release (Dr/Ec) 40 mg PO BID Qty: 20 RF: 0 fluticasone propionate [Flonase Allergy Relief] 50 mcg/actuation spray,suspension 1 spray INTRANASAL BID Qty: 9.9 RF: 0 budesonide 0.25 mg/2 mL suspension for nebulization 0.25 mg INHALATION BID Qty: 60 RF: 0 ipratropium-albuterol 0.5 mg-3 mg(2.5 mg base)/3 mL solution for nebulization 3 ml INHALATION Q6H Qty: 15 RF: 0 albuterol sulfate 0.63 mg/3 mL solution for nebulization 0.63 mg INHALATION Q4H PRN (Reason: Shortness Of Breath) RF: 0 sucralfate 1 gram tablet 1 g PO TID RF: 0 Incruse Ellipta 62.5 mcg/actuation blister with device 1 inh INHALATION DAILY RF: 0 Discontinued ondansetron 4 mg film 4 mg PO DAILY PRN (Reason: nausea and vomiting) Qty: 10 RF: 0 oxycodone 5 mg tablet 5 mg PO BID PRN (Reason: Pain) RF: 0 Discharge Orders: Discharge Order (Routine); Ordered 07/26/20 Ordered By: Latha Matson Referrals: [facility] [Outside] Octaviano Sue MD [Primary Care Provider] - 08/03/20 9:00 am Discharge Diet: Advance as tolerated and Cardiac Discharge Activity: Increase activity as tolerated Activity Restrictions/Additional Instructions: -Alcohol cessation strongly recommended -Please hydrate appropriately and advance diet over the next 2 to 3 days starting with soft bland foods as tolerated -Please seek medical attention immediately should you have further bleeding Discharge Attestations Time Spent in Discharge Care*: greater than 30 min Specific Discharge Activities: educating patient, discussing with rehabilitation case coordinator/social workers/dc planners, documenting/other paperwork and evaluating patient/reviewing data Status at Discharge: Cognitive status at discharge: cognitively intact, Behavioral status at discharge: cooperative, Functional status at discharge: independent ambulation Overall status at discharge: patient is back to baseline Quality Metrics Clinical Quality Measures During this hospital stay, did patient experience: None Coding Level of Care Code Acute Technician Automatic for Janeen Ray Diagnoses Acute upper GI bleed K92.2 Pulmonary embolism I26.99 Acute cor pulmonale presence: without acute cor pulmonale Chronicity: acute Pulmonary embolism type: unspecified Alcohol abuse F10.10
== END 2020-07-26 16:30 | disposition home or self-care (01) | DRG 378 ==
LOC: ER 21:08 → MEDSURG 21:34
PROVIDERS: Emergency Medicine; Surgery; Admitting Provider Internal Medicine; Emergency Provider Emergency Medicine; PCP Internal Medicine; Visit Provider Family Medicine
PROC: 0DJ08ZZ Inspection of Upper Intestinal Tract, Via Natural or Artificial Opening Endoscopic (ICD-10-PCS; CPT 43235; principal; 2020-07-25 10:45)
DX: K29.21 Alcoholic gastritis with bleeding (principal); I13.0 Hypertensive heart and chronic kidney disease with heart failure and stage 1 through stage 4 chronic kidney disease, or unspecified chronic kidney disease; I50.32 Chronic diastolic (congestive) heart failure; D62 Acute posthemorrhagic anemia; K44.9 Diaphragmatic hernia without obstruction or gangrene; Z99.81 Dependence on supplemental oxygen; N18.30 Chronic kidney disease, stage 3 unspecified; E66.01 Morbid (severe) obesity due to excess calories; Z68.38 Body mass index [BMI] 38.0-38.9, adult; K21.9 Gastro-esophageal reflux disease without esophagitis; K22.70 Barrett's esophagus without dysplasia; R91.8 Other nonspecific abnormal finding of lung field; F10.129 Alcohol abuse with intoxication, unspecified; Y90.8 Blood alcohol level of 240 mg/100 ml or more; B19.20 Unspecified viral hepatitis C without hepatic coma; Z86.718 Personal history of other venous thrombosis and embolism; Z86.711 Personal history of pulmonary embolism; K70.30 Alcoholic cirrhosis of liver without ascites; Z89.021 Acquired absence of right finger(s); D69.6 Thrombocytopenia, unspecified; R16.1 Splenomegaly, not elsewhere classified; Z95.828 Presence of other vascular implants and grafts; E03.9 Hypothyroidism, unspecified; J44.9 Chronic obstructive pulmonary disease, unspecified; F31.9 Bipolar disorder, unspecified
CPT/HCPCS: 12345; 36415; 36430; 43239; 71045; 80053; 80307; 82009; 82550; 83605; 83690; 83735; 84484; 84703; 85025; 85610; 85730; 86850; 86900; 86920; 87077; 93005; 96372; 96375; 99283; C9113; J1170; J1940; J2060; J2270; J2405; J3411; J7030; P9016

== ENCOUNTER 2020-08-27 06:58 | Inpatient (IN) | payer MEDICARE, MEDICAID, SELFPAY ==
[2020-08-27] VITALS (16 sets, daily range): BP systolic 111–154; BP diastolic 72–123; PULSE 75–105; RESP 16–24; TEMP 36.3; O2SAT 91–100; BMI 35.4
--- NOTE | 2020-08-27 07:28 | XRR_ITS ---
PROCEDURE INFORMATION: Exam: XR Chest, 1 View Exam date and time: 08/27/2020 7:37 AM Age: 45 years old Clinical indication: Prior surgery; Surgery date: 6+ months; Surgery type: Port. Breast; Patient HX: C/O vomiting/diarrhea/nausea/weakness. HX of breast cancer and uterine; Additional info: Weakness, swelling TECHNIQUE: Imaging protocol: XR of the chest Views: 1 view. COMPARISON: CR (CHEST, ) 07/24/2020 5:06 PM FINDINGS: Lungs: Similar minimal atelectasis or scarring right lower lung. Pleural space: Unremarkable. No pleural effusion. No pneumothorax. Heart/Mediastinum: Hiatal hernia. Cardiac silhouette is accentuated. Bones/joints: Unremarkable. Soft tissues: External soft tissue density or epicardial fat pad at the lower left heart border. XR/XR chest 1V portable [id number] IMPRESSION: Stable chest without interval change.
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
--- NOTE | 2020-08-27 07:43 | ECG_ITS ---
[facility] Test Date: 2020-08-27 Pat Name: Delores Mckeon Department: Room: Gender: Female Director Product: : 1975 Requested By: Genie Augustin Order Number: [id number] Garland MD: Johnny Walsh M.D. Measurements Intervals Stow Rate: 82 P: 18 VT: 161 QRS: 7 QRSD: 88 T: 53 QT: 382 QTc: 447 Interpretive Statements SINUS RHYTHM NONSPECIFIC ST & T-WAVE ABNORMALITY Compared to ECG 07/24/2020 19:00:58 No significant changes Electronically Signed On 08-27-2020 16:55:32 BIOLOGY RESEARCH ASSISTANT by Johnny Walsh M.D. [id number]
[2020-08-27] MEDS: ondansetron 2 mg/ML SDV 2 mL 4 MG IVP ×2 (08:37→11:18)
[2020-08-27] MEDS: morphine 4 mg/mL SDV 1 mL IVP ×3 (08:39→13:17)
[2020-08-27] MEDS: sodium chloride 0.9% 500 ML 999 ML IV (08:44)
[2020-08-27] MEDS: LORazepam 2 mg/mL INJ 1 mL 0.5 MG IVP (09:08)
[2020-08-27 09:36] LABS: Add Urine Microscopic? NO
[2020-08-27 09:40] LABS: Urine Appearance Clear (CLEAR); Urine Color Yellow (Yellow); pH Urine 8 (5-7)
[2020-08-27 09:41] LABS: Bilirubin Urine Neg (Negative); Blood Urine Neg (Negative); Glucose Urine UA Norm (Normal); Ketones Urine Negative (Negative); Leukocyte Esterase Urine Negative (Negative); Nitrate Urine Negative (Negative); Protein Urine Neg (Negative); Sulfosalicylic Acid Urine Negative (Negative); Urobilinogen Urine 1 mg/dL (Negative)
--- NOTE | 2020-08-27 12:07 | XRR_ITS ---
PROCEDURE INFORMATION: Exam: XR Chest, 1 View Exam date and time: 08/27/2020 12:38 PM Age: 45 years old Clinical indication: Other vascular access device placement or adjustment; Central line, non-tunnelled; Additional info: Post ij placement TECHNIQUE: Imaging protocol: XR of the chest Views: 1 view. COMPARISON: CR XR chest 1V portable [id number] 08/27/2020 8:10 AM FINDINGS: Tubes, catheters and devices: A right central line extends into the right atrium. Lungs: Unremarkable. No consolidation. Pleural space: Unremarkable. No pleural effusion. No pneumothorax. Heart/Mediastinum: Unremarkable. No cardiomegaly. Bones/joints: Unremarkable. XR/XR chest 1V portable [id number] IMPRESSION: 1. No acute findings. 2. Right central line extends into the right atrium
--- NOTE | 2020-08-27 12:13 | ANES.PROC ---
Anesthesia Procedures Procedure/Date: 08/27/20 Central Venous Insert: Time Out Performed: Yes Consent: requested by attending/covering physician, risks and benefits reviewed and patient agrees to proceed Central Line: New Anesthesia monitors: pulse oximetry, EKG, BP cuff and oxygen (2L NC) Vein cannulated: right internal jugular Post procedure: Obtain Chest X-Ray Additional Comments: Prepped and draped in sterile fashion--gown, gloves, mask. Stuarter tech, 7fr. 20cm. Seeker needle and palpation used, sutured at 16cm, sterile dressing. Patient tolerated well.
[2020-08-27 12:39] LABS: Alanine Aminotransferase 19 U/L (0-33); Albumin Level 2.9 g/dL (3.5-5.2); Alkaline Phosphatase 297 IU/L (35-105); Anion Gap 12.4 (5-19); Aspartate Amino Transferase 29 U/L (0-32); Blood Urea Nitrogen 6 mg/dL (6-20); Calcium 6.8 mg/dL (8.5-10.5); Carbon Dioxide 32 mmol/L (22-29); Chloride 96 mmol/L (98-107); Globulin 3.1 g/dL (1.3-4.6); Glomerular Filtration Rate 90.1 mL/min (90-130); Glucose 98 mg/dL (65-115); Lipase 28 U/L (13-60); Osmolality Calculated 282 mOsm/kg (285-295); Potassium 3.4 mmol/L (3.5-5.1); Sodium 137 mmol/L (136-145); Total Bilirubin 0.6 mg/dL (0.15-1.2)
[2020-08-27 13:25] LABS: Basophils % 0.6 %; Eosinophils % 0.8 %; Hematocrit 25.4 % (37.0-47.0); Hemoglobin 7.2 g/dL (11.5-15.3); Lymphocytes % 19.9 %; Mean Corpuscular HGB Conc 28.3 g/dL (30.0-36.0); Mean Corpuscular Hemoglobin 21.6 pg (28.0-34.0); Mean Corpuscular Volume 76.3 fL (81-99); Mean Platelet Volume 9.6 fL (7.4-10.4); Monocytes # 0.4 10^3/uL (0.2-0.9); Monocytes % 8.2 %; Neutrophils # 3.35 10^3/uL (1.8-7.7); Neutrophils % 70.1 %; Nucleated Red Blood Cells % 0 %; Platelet Count 324 10^3/cmm (130-400); Red Blood Count 3.33 10^6/uL (4.1-5.3); Red Cell Distribution Width 18.7 % (12.1-15.1); White Blood Count 4.8 10^3/uL (4.0-10.0)
[2020-08-27 14:33] LABS: Hematocrit 26.7 % (37.0-47.0); Hemoglobin 7.5 g/dL (11.5-15.3)
[2020-08-27 14:53] LABS: NT Pro B Type Natriuretic Pept 43 pg/mL (0-125)
[2020-08-27] MEDS: calcium carbonate 500 mg Chew Tablet 1000 MG PO (14:54)
[2020-08-27] MEDS: HYDROmorphone 1 mg/mL INJ 1 mL 0.5 MG IVP ×2 (14:54→18:06)
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
[2020-08-27 18:10] LABS: Alcohol Level < 10 mg/dL (0-10)
[2020-08-27 18:30] LABS: SARS Covid-2 Antigen Negative (Negative)
[2020-08-27] MEDS: LORazepam 0.5 mg Tablet PO (19:08)
[2020-08-27] MEDS: FUROsemide 10 mg/mL SDV 4mL 40 MG IVP (21:35)
[2020-08-27 21:36] LABS: Ammonia 28 umol/L (11-51)
[2020-08-27] MEDS: sucralfate 1 gm Tablet PO (21:41)
[2020-08-27] MEDS: benzonatate 100 mg Capsule 200 MG PO (21:41)
[2020-08-27] MEDS: fluticasone nasal spray 16gm Btl 1 SPRAY INTRANASAL (21:41)
[2020-08-27] MEDS: potassium chloride ER 20 mEq Tablet PO (21:41)
[2020-08-27] MEDS: levETIRAcetam 500 mg Tablet 1000 MG PO (21:42)
[2020-08-27] MEDS: pantoprazole DR 40 mg Tablet PO (21:42)
[2020-08-27] MEDS: oxyCODONE 5 mg IR Tab/Cap PO (21:42)
[2020-08-27 22:00] LABS: 25 Hydroxy Vitamin D 5 ng/mL (30-100); Thyroid Stimulating Hormone 46.44 uIU/mL (0.27-4.20)
[2020-08-27 22:15] LABS: Calcium 7.2 mg/dL (8.5-10.5); Parathyroid Hormone 215.2 pg/mL (15-65)
[2020-08-27 23:49] LABS: Ionized Calcium 0.9 mmol/L (1.1-1.4)
[2020-08-28] VITALS (18 sets, daily range): BP systolic 108–135; BP diastolic 68–89; PULSE 84–105; RESP 16–24; TEMP 36.4–37.1; O2SAT 90–100
[2020-08-28] MEDS: CLONazepam 0.5 mg Tablet 0.25 MG PO ×3 (00:39→20:47)
[2020-08-28] MEDS: diphenhydrAMINE 25 mg Capsule PO (01:03)
[2020-08-28] MEDS: ipratropium-albuterol 3 mL Neb INHALATION ×3 (03:44→14:34)
[2020-08-28 04:46] LABS: Eosinophils # 0.2 10^3/uL (0.0-0.8); Eosinophils % 4.5 %; Hematocrit 25.8 % (37.0-47.0); Hemoglobin 7.2 g/dL (11.5-15.3); Lymphocytes # 1.1 10^3/uL (0.8-4.8); Lymphocytes % 25.9 %; Mean Corpuscular HGB Conc 27.9 g/dL (30.0-36.0); Mean Corpuscular Hemoglobin 21.5 pg (28.0-34.0); Mean Platelet Volume 9.7 fL (7.4-10.4); Monocytes # 0.3 10^3/uL (0.2-0.9); Monocytes % 7.4 %; Neutrophils # 2.56 10^3/uL (1.8-7.7); Neutrophils % 60.7 %; Nucleated Red Blood Cells % 0 %; Platelet Count 302 10^3/cmm (130-400); Red Blood Count 3.35 10^6/uL (4.1-5.3); Red Cell Distribution Width 18.7 % (12.1-15.1); White Blood Count 4.2 10^3/uL (4.0-10.0)
[2020-08-28 05:05] LABS: Lactate (Lactic Acid level) 1.1 mmol/L (0.5-2.2)
[2020-08-28 05:17] LABS: NT Pro B Type Natriuretic Pept 101 pg/mL (0-125); Procalcitonin 0.13 ng/mL (0-0.5)
[2020-08-28 05:29] LABS: Alanine Aminotransferase 16 U/L (0-33); Albumin Level 3.2 g/dL (3.5-5.2); Alkaline Phosphatase 288 IU/L (35-105); Anion Gap 12.1 (5-19); Aspartate Amino Transferase 18 U/L (0-32); Blood Urea Nitrogen 7 mg/dL (6-20); C Reactive Protein 2.5 mg/L (0.0-4.9); Calcium 7.1 mg/dL (8.5-10.5); Carbon Dioxide 33 mmol/L (22-29); Chloride 96 mmol/L (98-107); Creatine Phosphokinase 52 U/L (26-192); Globulin 3.5 g/dL (1.3-4.6); Glomerular Filtration Rate 67.4 mL/min (90-130); Glucose 94 mg/dL (65-115); Magnesium 1.5 mg/dL (1.7-2.3); Osmolality Calculated 284 mOsm/kg (285-295); Phosphorus 3.3 mg/dL (2.5-4.5); Potassium 3.1 mmol/L (3.5-5.1); Sodium 138 mmol/L (136-145); Total Bilirubin 1.4 mg/dL (0.15-1.2); Total Protein 6.7 g/dL (6.6-8.7)
[2020-08-28 05:30] LABS: INR 1.16 (0.8-1.2)
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
[2020-08-28] MEDS: benzonatate 100 mg Capsule 200 MG PO ×3 (08:18→20:49)
[2020-08-28] MEDS: levothyroxine 100 mcg Tablet 200 MCG PO (08:18)
[2020-08-28] MEDS: sucralfate 1 gm Tablet PO ×2 (08:18→18:02)
[2020-08-28] MEDS: fluticasone nasal spray 16gm Btl 1 SPRAY INTRANASAL ×2 (08:18→18:02)
[2020-08-28] MEDS: thiamine 100 mg Tablet PO ×2 (08:19→08:22)
[2020-08-28] MEDS: folic acid 1 mg Tablet PO (08:20)
[2020-08-28] MEDS: multivitamin therapeutic Tablet 1 TAB PO (08:20)
[2020-08-28] MEDS: pantoprazole DR 40 mg Tablet PO ×2 (08:20→18:02)
[2020-08-28] MEDS: levETIRAcetam 500 mg Tablet 1000 MG PO ×2 (08:20→18:01)
[2020-08-28] MEDS: potassium chloride ER 20 mEq Tablet PO ×2 (08:20→18:02)
[2020-08-28] MEDS: FUROsemide 10 mg/mL SDV 4mL 40 MG IVP ×2 (08:21→22:02)
[2020-08-28] MEDS: oxyCODONE 5 mg IR Tab/Cap PO ×3 (08:22→23:53)
[2020-08-28] MEDS: NON-FORMULARY MEDICATION (Umeclidinium [Incruse Ellipta] 62.5 mcg/actuation blister with d 1 EACH INHALATION (09:22)
[2020-08-28] MEDS: cholecalciferol (vitamin D3) 5,000 unit Tablet 5000 UNIT PO (10:32)
--- NOTE | 2020-08-28 13:41 | P.PN_ITS ---
Subjective Subjective: Interval history: Patient was examined this morning, she is complaining of generalized fatigue, some cough, bilateral extremity edema Vitals/I&O/Wt Last Vital Signs Temp 98.4 F 08/28/20 12:44 Pulse 95 08/28/20 12:44 Resp 16 08/28/20 12:44 BP 115/74 08/28/20 12:44 Pulse Ox 98 08/28/20 12:44 08/27/20 08/28/20 08/28/20 22:59 06:59 14:59 Intake Total 240 / 240 Output Total 2200 / 2200 Balance -2200 / -2200 240 / 240 Weight last 48 hrs Weight 90.718 kg Physical Exam Const: COMMON NORMALS: no acute distress and patient oriented x3 HENMT: COMMON NORMALS: normocephalic HEAD & SCALP: normocephalic Neck/C-Spine: COMMON NORMALS: no JVD Resp: COMMON NORMALS: normal respiratory effort, No retractions, No use of accessory muscles and clear to auscultation bilaterally AUSCULTATION: clear to auscultation bilaterally Cardio: COMMON NORMALS: no JVD, regular rate, regular rhythm, S1 normal heart sound present and S2 normal heart sound present RATE: regular rate RHYTHM: regular rhythm HEART SOUNDS: S1 normal heart sound present and S2 normal heart sound present GI: COMMON NORMALS: Normal to inspection, nondistended, normoactive bowel sounds present, Soft to palpation, non-tender, No hepatosplenomegaly present, no masses and no bruits PALPATION: Yes Soft to palpation and Yes No hepatosplenomegaly present Extremity: COMMON NORMALS: capillary refill normal, no clubbing, cyanosis or edema, no calf tenderness and no pedal edema OTHER: Bilateral lower extremity edema 1+ pitting Neuro: COMMON NORMALS: patient oriented x3 Psych: COMMON NORMALS: mental status grossly normal Data : 08/28/20 04:25 08/28/20 04:25 A&P Assessment and plan (1) Acute upper GI bleed: -History of acute on chronic anemia -Has received 3 units of PRBC has history of alcoholism, on last admission, has had multiple EGDs, which showed mild gastritis and a small hiatal hernia -No NSAID use, anticoagulation -Has a history of alcoholism and hepatitis C -Etiology is concerning for upper GI bleed and or chronic alcoholism and bone marrow suppression associated, but certainly esophageal varices are concerned given patient's risk factors, but denies any hematemesis Plan: -Monitor on general medical floors -Monitor H&H -Hemoglobin 7.2, will transfuse 1 unit PRBC -Protonix, Carafate -Monitor hemodynamics -General surgery on consult, holding off on EGD for now Status: Acute (2) Bilateral edema of lower extremity: -Fluid restrictions 1500 cc -Lasix 40 mg IV twice daily -Bilateral lower extremity ultrasounds ordered Status: Acute (3) Pulmonary embolism: Anticoagulation on hold Status: Acute (4) Normocytic anemia, not due to blood loss: Status: Acute (5) Hypocalcemia: Ionized calcium, PTH, vitamin D Status: Acute (6) COPD (chronic obstructive pulmonary disease): Not in exacerbation, chronically on 4 L Status: Acute Qualifiers: COPD type: COPD with acute exacerbation Qualified Code(s): J44.1 - Chronic obstructive pulmonary disease with (acute) exacerbation (7) Pulmonary nodule, right: Status: Acute (8) Alcohol abuse: [facility] protocol Status: Inactive (9) Fatigue: -Etiology unclear at this point, could be a component of alcoholism, fluid overload -Does have vitamin D deficiency, start vitamin D - TSH is 46, she is adamant she is using her levothyroxine 200 mcg daily, with Cytomel, will increase levothyroxine to 250 mcg daily, recheck TSH in 6 weeks 99 Status: Acute Attestations Medical Necessity Statement*: Patient requires hospitalization for anemia, upper GI bleed, fatigue, weakness, bilateral extremity edema, diastolic CHF e xacerbation, inpatient, greater than 2 midnights Coding Level of Care Code 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
[2020-08-28] MEDS: sodium chloride 0.9% (100 ml) 100 ML 50 ML (14:15)
[2020-08-28] MEDS: LORazepam 2 mg Tablet PO ×2 (14:18→21:26)
--- NOTE | 2020-08-28 14:22 | PC.NURSE ---
Patient with increased anxiety as evidenced by crying. anxious affect fine tremors in hands and grabbing at legs. Ativan 2 mg po given for this.
--- NOTE | 2020-08-28 20:34 | USR_ITS ---
PROCEDURE INFORMATION: Exam: US Duplex Lower Extremity Veins, Bilateral Exam date and time: 08/28/2020 10:24 AM Age: 45 years old Clinical indication: Pain; Leg, lower; Bilateral; Patient HX: S/P ivc filter; Additional info: R/O dvt TECHNIQUE: Imaging protocol: Real-time duplex ultrasound of the extremities with 2-D gutierrez scale, color Doppler flow and spectral waveform analysis with image documentation. Complete exam focused on the bilateral lower extremity veins. COMPARISON: [id number] 05/29/2020 8:35 AM FINDINGS: Right deep veins: Unremarkable. The common femoral, femoral, proximal profunda femoral and popliteal veins are patent without thrombus. Normal Doppler waveforms. Normal compressibility and/or augmentation response. Right superficial veins: Saphenofemoral junction is patent without thrombus. Left deep veins: Unremarkable. The common femoral, femoral, proximal profunda femoral and popliteal veins are patent without thrombus. Normal Doppler waveforms. Normal compressibility and/or augmentation response. Left superficial veins: Saphenofemoral junction is patent without thrombus. Soft tissues: There is edema in the subcutaneous soft tissues of the calf region. US/[id number] IMPRESSION: No evidence of deep vein thrombosis.
--- NOTE | 2020-08-28 21:28 | PC.NURSE ---
AGITATION Quite agitated. Says noone takes her pain seriously and she needs more pain med. Tearful and says wants to leave and go to another hospital. Was given po Ativan per CIWA protocol and says will probably stay and get transferred somewhere tomorrow
[2020-08-29] VITALS (15 sets, daily range): BP systolic 102–129; BP diastolic 63–82; PULSE 83–115; RESP 16–22; TEMP 36.4–37.3; O2SAT 83–97
[2020-08-29] MEDS: LORazepam 2 mg Tablet PO ×4 (01:41→19:36)
[2020-08-29] MEDS: ipratropium-albuterol 3 mL Neb INHALATION ×4 (02:14→20:16)
[2020-08-29] MEDS: ondansetron 2 mg/ML SDV 2 mL 4 MG IVP (03:37)
--- NOTE | 2020-08-29 06:40 | PC.NURSE ---
SHIFT SUMMARY Has rested for intervals. As soon as she wakes up for any reason she asks for pain or anxiety meds. Knows what time she can have pain meds but asks often anyway. c/o muscle spasms in legs and wants a muscle relaxer. The Ativan per CIWA assessment seems to help and this has been given per scoring. Has been anxious and some agitation when told not time for meds. c/o some nausea through night but no emesis and actually ate a sandwich and drank well. 1500ml fluid restriction in effect. Voiding well mony in evening after getting IV Lasix. Cont to have pitting edema to BLE
--- NOTE | 2020-08-29 07:21 | PC.OT ---
Occupational therapy treatment held due to critical labs.
[2020-08-29] MEDS: budesonide 0.5 mg/2 mL Neb 0.25 MG INHALATION ×2 (08:07→20:16)
[2020-08-29] MEDS: FUROsemide 10 mg/mL SDV 4mL 40 MG IVP ×2 (09:05→21:40)
[2020-08-29] MEDS: folic acid 1 mg Tablet PO (09:06)
[2020-08-29] MEDS: sucralfate 1 gm Tablet PO ×2 (09:06→17:35)
[2020-08-29] MEDS: pantoprazole DR 40 mg Tablet PO ×2 (09:06→17:35)
[2020-08-29] MEDS: potassium chloride ER 20 mEq Tablet PO ×2 (09:06→17:35)
[2020-08-29] MEDS: levothyroxine 100 mcg Tablet 200 MCG PO (09:06)
[2020-08-29] MEDS: multivitamin therapeutic Tablet 1 TAB PO (09:06)
[2020-08-29] MEDS: benzonatate 100 mg Capsule 200 MG PO ×3 (09:06→21:01)
[2020-08-29] MEDS: cholecalciferol (vitamin D3) 5,000 unit Tablet 5000 UNIT PO (09:06)
[2020-08-29] MEDS: levothyroxine 25 mcg Tablet PO (09:06)
[2020-08-29] MEDS: levETIRAcetam 500 mg Tablet 1000 MG PO ×2 (09:07→17:35)
[2020-08-29] MEDS: thiamine 100 mg Tablet PO (09:07)
[2020-08-29] MEDS: fluticasone nasal spray 16gm Btl 1 SPRAY INTRANASAL ×2 (09:14→17:34)
[2020-08-29] MEDS: oxyCODONE 5 mg IR Tab/Cap PO ×2 (09:14→17:35)
--- NOTE | 2020-08-29 10:00 | PM.PN ---
Subjective Subjective: Interval history: The patient was asleep when I walked in but was easily arousable. She has no new complaints. She says she received a unit of blood last night. She is wondering if she will need a Port-A-Cath for poor peripheral venous access. She currently has a central line in place because they could not find peripheral IV site. Vitals/I&O/Wt Last Vital Signs Temp 99.2 F 08/29/20 08:00 Pulse 112 H 08/29/20 08:14 Resp 18 08/29/20 09:14 BP 111/75 08/29/20 08:00 Pulse Ox 93 08/29/20 08:11 08/28/20 08/29/20 08/29/20 22:59 06:59 14:59 Intake Total 140 / 1450 600 / 1450 200 / 200 Output Total 1000 / 3100 1700 / 3100 400 / 400 Balance -860 / -1650 -1100 / -1650 -200 / -200 Physical Exam Narrative: EXAM NARRATIVE: Abdomen remains soft. Data : 08/28/20 04:25 08/28/20 04:25 A&P Assessment and plan (1) Anemia: The patient's hemoglobin has drifted over the last several weeks. The patient says that she is in the habit of getting transfused every several weeks for her anemia. Without significant obvious losses, it makes one wonder if she has an issue with her bone marrow. She says she received a unit of blood yesterday. Her hemoglobin is still low but she denies any melanotic stool, vomiting, etc. Status: Acute (2) History of gastritis: The patient is taking Protonix twice daily at home. She has not had any recent evidence of obvious blood loss including hematochezia, melena, etc. She just had an EGD done last month which revealed some mild gastritis and a hiatal hernia. Her CLOtest was negative. I cannot imagine that repeating an EGD at this time is going to change her management. She would like to avoid another endoscopic procedure if possible. I will hold on endoscopy. I am going to allow the patient at least a clear liquid diet for now. Status: Inactive Attestations Medical Necessity Statement*: See admitting service's notation. Coding Level of Care Code Acute Final Inspector Truck Trailer for [facility] Fwd Diagnoses Anemia D64.9 History of gastritis Z87.19
[2020-08-29] MEDS: cyclobenzaprine 10 mg Tablet 5 MG PO ×2 (10:39→17:35)
--- NOTE | 2020-08-29 12:17 | PM.PN ---
Subjective Subjective: Interval history: This morning patient was seen, she sitting up in bed, her edema has improved, she can move around a bit more, but continues to have bilateral lower extremity pain Vitals/I&O/Wt Last Vital Signs Temp 98.0 F 08/29/20 12:00 Pulse 83 08/29/20 12:00 Resp 16 08/29/20 12:00 BP 102/63 08/29/20 12:00 Pulse Ox 97 08/29/20 12:00 08/28/20 08/29/20 08/29/20 22:59 06:59 14:59 Intake Total 140 / 850 600 / 1450 200 / 200 Output Total 1000 / 1400 1700 / 3100 400 / 400 Balance -860 / -550 -1100 / -1650 -200 / -200 Physical Exam Const: COMMON NORMALS: no acute distress and patient oriented x3 HENMT: COMMON NORMALS: normocephalic HEAD & SCALP: normocephalic Neck/C-Spine: COMMON NORMALS: no JVD Resp: COMMON NORMALS: normal respiratory effort, No retractions, No use of accessory muscles and clear to auscultation bilaterally AUSCULTATION: clear to auscultation bilaterally Cardio: COMMON NORMALS: no JVD, regular rate, regular rhythm, S1 normal heart sound present and S2 normal heart sound present RATE: regular rate RHYTHM: regular rhythm HEART SOUNDS: S1 normal heart sound present and S2 normal heart sound present GI: COMMON NORMALS: Normal to inspection, nondistended, normoactive bowel sounds present, Soft to palpation, non-tender, No hepatosplenomegaly present, no masses and no bruits PALPATION: Yes Soft to palpation and Yes No hepatosplenomegaly present Extremity: COMMON NORMALS: capillary refill normal and no calf tenderness NARRATIVE EXTREMITY EXAM: 1+ pitting edema Neuro: COMMON NORMALS: patient oriented x3 Psych: COMMON NORMALS: mental status grossly normal Data : 08/28/20 04:25 08/28/20 04:25 A&P Assessment and plan (1) Acute upper GI bleed: -History of acute on chronic anemia -Has received 3 units of PRBC has history of alcoholism, on last admission, has had multiple EGDs, which showed mild gastritis and a small hiatal hernia -No NSAID use, anticoagulation -Has a history of alcoholism and hepatitis C -Etiology is concerning for upper GI bleed and or chronic alcoholism and bone marrow suppression associated, but certainly esophageal varices are concerned given patient's risk factors, but denies any hematemesis -Status post 1 unit PRBC -Blood work this morning pending Plan: -Monitor on general medical floors -Monitor H&H -Protonix, Carafate -Monitor hemodynamics -General surgery on consult Status: Acute (2) Bilateral edema of lower extremity: -Fluid restrictions 1500 cc -Lasix 40 mg IV twice daily -Bilateral lower extremity ultrasound negative for DVT Status: Acute (3) Pulmonary embolism: Anticoagulation on hold Status: Acute (4) Normocytic anemia, not due to blood loss: Status: Acute (5) Hypocalcemia: Ionized calcium, PTH, vitamin D Status: Acute (6) COPD (chronic obstructive pulmonary disease): Not in exacerbation, chronically on 4 L Status: Acute Qualifiers: COPD type: COPD with acute exacerbation Qualified Code(s): J44.1 - Chronic obstructive pulmonary disease with (acute) exacerbation (7) Pulmonary nodule, right: Status: Acute (8) Alcohol abuse: [facility] protocol Status: Inactive (9) Fatigue: -Etiology unclear at this point, could be a component of alcoholism, fluid overload -She does have low-grade temperatures in the ER, will do Covid test Status: Acute Additional A&P Information Patient continues to have pain in the bilateral lower extremities, her hemoglobin is improving, still feels restless leg, but could be a component, she says that the only thing that is helped is Dilaudid, she is already on oxycodone, will try some Flexeril, if that does not work we can always try Requip Attestations Medical Necessity Statement*: Patient requires hospitalization for anemia, upper GI bleed, bilateral knee edema, diastolic CHF Coding Level of Care Code Acute Vegetable Inspector for [facility] Fw 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
[2020-08-29 13:12] LABS: Basophils % 0.8 %; Eosinophils # 0.3 10^3/uL (0.0-0.8); Eosinophils % 5.6 %; Hematocrit 30.3 % (37.0-47.0); Hemoglobin 8.7 g/dL (11.5-15.3); Lymphocytes # 1.3 10^3/uL (0.8-4.8); Lymphocytes % 25.6 %; Mean Corpuscular HGB Conc 28.7 g/dL (30.0-36.0); Mean Corpuscular Hemoglobin 22.4 pg (28.0-34.0); Mean Corpuscular Volume 77.9 fL (81-99); Mean Platelet Volume 10.3 fL (7.4-10.4); Monocytes # 0.5 10^3/uL (0.2-0.9); Monocytes % 9.2 %; Neutrophils # 2.93 10^3/uL (1.8-7.7); Neutrophils % 58.6 %; Nucleated Red Blood Cells % 0 %; Platelet Count 286 10^3/cmm (130-400); Red Blood Count 3.89 10^6/uL (4.1-5.3); Red Cell Distribution Width 18.7 % (12.1-15.1)
[2020-08-29 13:34] LABS: Alanine Aminotransferase 12 U/L (0-33); Albumin Level 3.6 g/dL (3.5-5.2); Alkaline Phosphatase 252 IU/L (35-105); Anion Gap 15.3 (5-19); Aspartate Amino Transferase 13 U/L (0-32); Blood Urea Nitrogen 7 mg/dL (6-20); Calcium 6.9 mg/dL (8.5-10.5); Carbon Dioxide 33 mmol/L (22-29); Chloride 94 mmol/L (98-107); Globulin 3.6 g/dL (1.3-4.6); Glomerular Filtration Rate 53.5 mL/min (90-130); Glucose 113 mg/dL (65-115); INR 1.07 (0.8-1.2); Magnesium 1.5 mg/dL (1.7-2.3); Osmolality Calculated 287 mOsm/kg (285-295); Phosphorus 3.6 mg/dL (2.5-4.5); Potassium 3.3 mmol/L (3.5-5.1); Sodium 139 mmol/L (136-145); Total Bilirubin 0.6 mg/dL (0.15-1.2); Total Protein 7.2 g/dL (6.6-8.7)
[2020-08-29 13:46] LABS: NT Pro B Type Natriuretic Pept 120 pg/mL (0-125)
[2020-08-29 13:56] LABS: Creatine Phosphokinase 53 U/L (26-192)
[2020-08-29 14:55] LABS: Lactate (Lactic Acid level) 1.9 mmol/L (0.5-2.2)
--- NOTE | 2020-08-29 17:41 | PC.NURSE ---
Patient has been reminded off and on all that she is on a 1500 mls fluid restriction. Patient verbalizes understanding but then drinks as much as she want. Patient has [address] Alexander soda today and her significant other just brought her another bottle. Patient has had all liquids on her meal trays today along with small sprite which is 237 mls. Reminded patient again not to drink her other Dr. Alexander betty because she is at her limit of fluids for today. Patient states, I won't. Asked patient to let this marketing underwriter put her Dr. Alexander in the refrigerator until tomorrow morning. Patient states, No Thanks It will be fine her with me.
[2020-08-30] VITALS (9 sets, daily range): BP systolic 119–137; BP diastolic 75–91; PULSE 75–115; RESP 16–20; TEMP 36.3–36.9; O2SAT 93–98
--- NOTE | 2020-08-30 00:37 | PC.NURSE ---
PAIN C/O Pt c/o pain to nurse and went back to tell her it would be close to another hour and she was snoring
[2020-08-30] MEDS: CLONazepam 0.5 mg Tablet 0.25 MG PO (01:22)
[2020-08-30] MEDS: oxyCODONE 5 mg IR Tab/Cap PO ×2 (01:27→08:17)
[2020-08-30] MEDS: LORazepam 2 mg Tablet PO ×2 (03:25→12:56)
[2020-08-30 04:44] LABS: Basophils # 0.1 10^3/uL (0.0-0.1); Basophils % 0.9 %; Eosinophils # 0.3 10^3/uL (0.0-0.8); Eosinophils % 5.5 %; Hematocrit 31.3 % (37.0-47.0); Hemoglobin 8.7 g/dL (11.5-15.3); Lymphocytes # 1.6 10^3/uL (0.8-4.8); Lymphocytes % 28.9 %; Mean Corpuscular HGB Conc 27.8 g/dL (30.0-36.0); Mean Corpuscular Volume 79.2 fL (81-99); Monocytes # 0.5 10^3/uL (0.2-0.9); Monocytes % 9.3 %; Neutrophils % 55.2 %; Nucleated Red Blood Cells % 0 %; Platelet Count 282 10^3/cmm (130-400); Red Blood Count 3.95 10^6/uL (4.1-5.3); Red Cell Distribution Width 19.1 % (12.1-15.1); White Blood Count 5.6 10^3/uL (4.0-10.0)
[2020-08-30 04:57] LABS: INR 1.01 (0.8-1.2)
[2020-08-30 05:09] LABS: Alanine Aminotransferase 13 U/L (0-33); Albumin Level 3.3 g/dL (3.5-5.2); Alkaline Phosphatase 239 IU/L (35-105); Anion Gap 13.7 (5-19); Aspartate Amino Transferase 11 U/L (0-32); Blood Urea Nitrogen 11 mg/dL (6-20); Calcium 7.5 mg/dL (8.5-10.5); Carbon Dioxide 31 mmol/L (22-29); Chloride 94 mmol/L (98-107); Glomerular Filtration Rate 59.7 mL/min (90-130); Glucose 114 mg/dL (65-115); Magnesium 1.7 mg/dL (1.7-2.3); Osmolality Calculated 280 mOsm/kg (285-295); Phosphorus 3.3 mg/dL (2.5-4.5); Potassium 3.7 mmol/L (3.5-5.1); Sodium 135 mmol/L (136-145); Total Bilirubin 0.6 mg/dL (0.15-1.2); Total Protein 7.3 g/dL (6.6-8.7)
[2020-08-30 05:11] LABS: Lactate (Lactic Acid level) 1.3 mmol/L (0.5-2.2)
[2020-08-30 05:14] LABS: NT Pro B Type Natriuretic Pept 99 pg/mL (0-125)
[2020-08-30 05:25] LABS: Creatine Phosphokinase 50 U/L (26-192)
--- NOTE | 2020-08-30 05:36 | PC.NURSE ---
SHIFT SULMMARY Has rested for intervals. Continues to request freq meds when she wakes. Sometimes she goes back to resting with eyes closed or is heard to be snoring before med can even be brought to her. c/o anxiety and pain in both legs. Also c/o itching all over. Uses lotion over body. Tells me she now thinks she has bone marrow cancer Does have some agitation over meds and not receiving the Dilaudid she wants for pain. Has scored on CIWA X2 tonight enough to receive po Ativan and this works well. Very good urine output after receiving pm dose of IV Lasix. IJ triple lumen intact to right neck. Is on 1500ml fluid restriction. BLE remain edematous but are improving.
[2020-08-30] MEDS: cyclobenzaprine 10 mg Tablet 5 MG PO ×2 (06:24→12:55)
--- NOTE | 2020-08-30 07:41 | PC.NURSE ---
I reported the pain to the nurse
[2020-08-30] MEDS: FUROsemide 10 mg/mL SDV 4mL 40 MG IVP (08:11)
[2020-08-30] MEDS: potassium chloride ER 20 mEq Tablet PO (08:11)
[2020-08-30] MEDS: pantoprazole DR 40 mg Tablet PO (08:11)
[2020-08-30] MEDS: folic acid 1 mg Tablet PO (08:11)
[2020-08-30] MEDS: levothyroxine 100 mcg Tablet 200 MCG PO (08:12)
[2020-08-30] MEDS: sucralfate 1 gm Tablet PO (08:13)
[2020-08-30] MEDS: levETIRAcetam 500 mg Tablet 1000 MG PO (08:13)
[2020-08-30] MEDS: benzonatate 100 mg Capsule 200 MG PO (08:13)
[2020-08-30] MEDS: cholecalciferol (vitamin D3) 5,000 unit Tablet 5000 UNIT PO (08:13)
[2020-08-30] MEDS: levothyroxine 25 mcg Tablet PO (08:13)
[2020-08-30] MEDS: budesonide 0.5 mg/2 mL Neb 0.25 MG INHALATION (08:44)
[2020-08-30] MEDS: ipratropium-albuterol 3 mL Neb INHALATION (08:45)
[2020-08-30] MEDS: fluticasone nasal spray 16gm Btl 1 SPRAY INTRANASAL (09:00)
[2020-08-30] MEDS: multivitamin therapeutic Tablet 1 TAB PO (09:00)
[2020-08-30] MEDS: thiamine 100 mg Tablet PO (09:00)
--- NOTE | 2020-08-30 11:31 | PM.DCS ---
Discharge Providers Date of Admission: 08/27/20 17:41 Date of Discharge: August 30, 2020 Attending Provider at Admission: Bran Arita MD Attending Provider at Discharge: Bran Arita MD Primary Care Provider: Octaviano Sue MD Diagnoses at Discharge Discharge Diagnosis (1) Acute upper GI bleed: Status: Acute (2) Bilateral edema of lower extremity: Status: Acute (3) Pulmonary embolism: Status: Acute (4) Normocytic anemia, not due to blood loss: Status: Acute Permanent problem details: Transfuse approximately 3 units while in the hospital. No evidence of active bleeding. (5) Hypocalcemia: Status: Acute (6) COPD (chronic obstructive pulmonary disease): Status: Acute Permanent problem details: -oxygen dependent Qualifiers: COPD type: COPD with acute exacerbation Qualified Code(s): J44.1 - Chronic obstructive pulmonary disease with (acute) exacerbation (7) Pulmonary nodule, right: Status: Acute (8) Alcohol abuse: Status: Inactive Permanent problem details: -Noted to be acutely intoxicated on admission, alcohol level of 312 -On CIWA protocol (9) Fatigue: Status: Acute Reason for Visit Reason for Visit: n/v, dizzy Hospital Course Hospital Course Delores Mckeon is a 45 year old female with a past medical history of acute on chronic anemia, history of multiple EGDs, history of upper GI bleeds, alcohol abuse, history of seizures, history of pulmonary nodule, history of diastolic heart failure, history of bilateral extremity edema, hypertension, morbid obesity, hypothyroidism, status post amputation of third and fourth digits, hepatitis C, DVT/PE status post IVC filter anticoagulation on hold due to anemia, bipolar disorders, CKD stage II-III, who presents [facility] due to complaints of generalized weakness and bilateral lower extremity edema. Patient was admitted to [facility] for acute on chronic anemia secondary to GI bleed, general surgery was consulted, she did require 1 unit PRBC, she clinically improved, no EGD was required, she has had multiple EGDs in the past, hemoglobin on discharge 8.7. Patient should follow-up with general surgery for consideration for referral for capsule endoscopy Patient had a diastolic CHF exacerbation during her hospitalization, including bilateral extremity edema and shortness of breath. She was diuresed with Lasix, she is -7 L since admission, clinically improved. Discharged on Lasix 40 mg twice daily, potassium replacement, daily weights, fluid restrictions between 1.5 to 2 L, and metolazone 5 mg as needed if she were to gain more than 2 to 3 pounds. Physical Exam Const: COMMON NORMALS: no acute distress and patient oriented x3 HENMT: COMMON NORMALS: normocephalic HEAD & SCALP: normocephalic Neck/C-Spine: COMMON NORMALS: no JVD Resp: COMMON NORMALS: normal respiratory effort, No retractions, No use of accessory muscles and clear to auscultation bilaterally AUSCULTATION: clear to auscultation bilaterally Cardio: COMMON NORMALS: no JVD, regular rate, regular rhythm, S1 normal heart sound present and S2 normal heart sound present RATE: regular rate RHYTHM: regular rhythm HEART SOUNDS: S1 normal heart sound present and S2 normal heart sound present GI: COMMON NORMALS: Normal to inspection, nondistended, normoactive bowel sounds present, Soft to palpation, non-tender, No hepatosplenomegaly present, no masses and no bruits PALPATION: Yes Soft to palpation and Yes No hepatosplenomegaly present Extremity: COMMON NORMALS: capillary refill normal, no clubbing, cyanosis or edema, no calf tenderness and no pedal edema Neuro: COMMON NORMALS: patient oriented x3 Psych: COMMON NORMALS: mental status grossly normal Discharge Data Data Completed and Pending: Completed Studies During Hospitalization Category Date Time Status XR chest 1V nichole ble [id number] Stat Exams 08/27/20 07:28 Completed XR chest 1V nichole ble [id number] Stat Exams 08/27/20 12:07 [place] [id number] Routin e Ultrasound 08/28/20 20:34 Completed Labs from last 24 hours 08/30/20 08/30/20 08/30/20 04:29 04:29 04:29 WBC RBC Hgb Hct MCV MCH MCHC RDW Plt Count MPV Neut % (Auto) Lymph % (Auto) [place] % (Auto) Eos % (Auto) Baso % (Auto) Neut # (Auto) Lymph # (Auto) [place] # (Auto) Eos # (Auto) Baso # (Auto) Nucleated RBC % (a uto) Nucleated RBCs # PT 13.60 INR 1.01 Sodium Potassium Chloride Carbon Dioxide Anion Gap BUN Creatinine GFR Calculation Glucose Calculated Osmolal ity Lactate 1.3 Calcium Phosphorus Magnesium Total Bilirubin AST ALT Alkaline Phosphata se Creatine Kinase 50 C-Reactive Protein NT-Pro-B Natriuret Pep 99 Total Protein Albumin Globulin Procalcitonin 0.10 08/30/20 08/30/20 08/29/20 04:29 04:29 12:49 WBC 5.6 RBC 3.95 L Hgb 8.7 L Hct 31.3 L MCV 79.2 L MCH 22.0 L MCHC 27.8 L RDW 19.1 H Plt Count 282 MPV 10.0 Neut % (Auto) 55.2 Lymph % (Auto) 28.9 [place] % (Auto) 9.3 Eos % (Auto) 5.5 Baso % (Auto) 0.9 Neut # (Auto) 3.10 Lymph # (Auto) 1.6 [place] # (Auto) 0.5 Eos # (Auto) 0.3 Baso # (Auto) 0.1 Nucleated RBC % (a uto) 0 Nucleated RBCs # 0.0 PT INR Sodium 135 L Potassium 3.7 Chloride 94 L Carbon Dioxide 31 H Anion Gap 13.7 BUN 11 Creatinine 1.0 H GFR Calculation 59.7 L Glucose 114 Calculated Osmolal ity 280 L Lactate Calcium 7.5 L Phosphorus 3.3 Magnesium 1.7 Total Bilirubin 0.6 AST 11 ALT 13 Alkaline Phosphata se 239 H Creatine Kinase 53 C-Reactive Protein 5.0 H NT-Pro-B Natriuret Pep 120 Total Protein 7.3 Albumin 3.3 L Globulin 4.0 Procalcitonin 0.10 08/29/20 08/29/20 08/29/20 12:49 12:49 12:49 WBC RBC Hgb Hct MCV MCH MCHC RDW Plt Count MPV Neut % (Auto) Lymph % (Auto) [place] % (Auto) Eos % (Auto) Baso % (Auto) Neut # (Auto) Lymph # (Auto) [place] # (Auto) Eos # (Auto) Baso # (Auto) Nucleated RBC % (a uto) Nucleated RBCs # PT 14.20 INR 1.07 Sodium 139 Potassium 3.3 L Chloride 94 L Carbon Dioxide 33 H Anion Gap 15.3 BUN 7 Creatinine 1.1 H GFR Calculation 53.5 L Glucose 113 Calculated Osmolal ity 287 Lactate 1.9 Calcium 6.9 L Phosphorus 3.6 Magnesium 1.5 L Total Bilirubin 0.6 AST 13 ALT 12 Alkaline Phosphata se 252 H Creatine Kinase C-Reactive Protein 6.0 H NT-Pro-B Natriuret Pep Total Protein 7.2 Albumin 3.6 Globulin 3.6 Procalcitonin 08/29/20 12:49 WBC 5.0 RBC 3.89 L Hgb 8.7 L Hct 30.3 L MCV 77.9 L MCH 22.4 L MCHC 28.7 L RDW 18.7 H Plt Count 286 MPV 10.3 Neut % (Auto) 58.6 Lymph % (Auto) 25.6 [place] % (Auto) 9.2 Eos % (Auto) 5.6 Baso % (Auto) 0.8 Neut # (Auto) 2.93 Lymph # (Auto) 1.3 [place] # (Auto) 0.5 Eos # (Auto) 0.3 Baso # (Auto) 0.0 Nucleated RBC % (a uto) 0 Nucleated RBCs # 0.0 PT INR Sodium Potassium Chloride Carbon Dioxide Anion Gap BUN Creatinine GFR Calculation Glucose Calculated Osmolal ity Lactate Calcium Phosphorus Magnesium Total Bilirubin AST ALT Alkaline Phosphata se Creatine Kinase C-Reactive Protein NT-Pro-B Natriuret Pep Total Protein Albumin Globulin Procalcitonin Vitals: Last Vital Signs Temp 97.4 F L 08/30/20 10:58 Pulse 75 08/30/20 10:58 Resp 18 08/30/20 10:58 BP 137/83 08/30/20 10:58 Pulse Ox 98 08/30/20 10:58 Discharge Plan Discharge Patient Disposition: Home Health Service Condition: Stable Prescriptions: New cholecalciferol (vitamin D3) 125 mcg (5,000 unit) Tablet 5,000 unit PO DAILY 30 Days Qty: 30 RF: 0 levothyroxine 25 mcg Tablet 25 mcg PO DAILY 30 Days Qty: 30 RF: 0 metolazone 5 mg tablet 5 mg PO DAILY PRN (Reason: weight gain) 30 Days Qty: 30 RF: 0 Continued albuterol sulfate 90 mcg/actuation HFA aerosol inhaler 2 inh INHALATION Q4H PRN (Reason: shortness of breath or wheezing) Qty: 6.7 RF: 0 epinephrine [EpiPen 2-Tim] 0.3 mg/0.3 mL auto-injector 0.3 mg IM PRN PRN (Reason: Allergic Reaction) RF: 0 levetiracetam [Keppra] 500 mg tablet 1,000 mg PO BID RF: 0 liothyronine [Cytomel] 25 mcg tablet 25 mcg PO DAILY Qty: 90 RF: 3 levothyroxine 200 mcg capsule 200 mcg PO DAILY Qty: 90 RF: 3 folic acid 1 mg Tablet 1 mg PO DAILY Qty: 0 RF: 0 thiamine mononitrate (vit B1) [Vitamin B-1 (mononitrate)] 100 mg Tablet 100 mg PO DAILY Qty: 0 RF: 0 Spiriva Respimat 2.5 mcg/actuation mist 2 puff INHALATION QAM 90 Days Qty: 4 RF: 2 dextromethorphan-guaifenesin 10-100 mg/5 mL Syrup 10 ml PO Q4H PRN (Reason: Cough) Qty: 30 RF: 0 benzonatate 100 mg Capsule 200 mg PO TID Qty: 20 RF: 0 pantoprazole 40 mg Tablet,Delayed Release (Dr/Ec) 40 mg PO BID Qty: 20 RF: 0 fluticasone propionate [Flonase Allergy Relief] 50 mcg/actuation spray,suspension 1 spray INTRANASAL BID Qty: 9.9 RF: 0 budesonide 0.25 mg/2 mL suspension for nebulization 0.25 mg INHALATION BID Qty: 60 RF: 0 ipratropium-albuterol 0.5 mg-3 mg(2.5 mg base)/3 mL solution for nebulization 3 ml INHALATION Q6H Qty: 15 RF: 0 albuterol sulfate 0.63 mg/3 mL solution for nebulization 0.63 mg INHALATION Q4H PRN (Reason: Shortness Of Breath) RF: 0 sucralfate 1 gram tablet 1 g PO BID RF: 0 Incruse Ellipta 62.5 mcg/actuation blister with device 1 inh INHALATION DAILY RF: 0 clonazepam 0.5 mg tablet 0.25 mg PO BID PRN (Reason: anxiety) Qty: 14 RF: 0 Klor-Con M20 20 mEq tablet,ER particles/crystals 20 meq PO BID 30 Days Qty: 60 RF: 3 oxycodone 5 mg tablet 5 mg PO BID PRN (Reason: Pain) 7 Days Qty: 14 RF: 0 furosemide 40 mg tablet 40 mg PO BID 30 Days Qty: 60 RF: 8 Discharge Orders: Discharge Order (Routine); Ordered 08/30/20 Ordered By: Bran Arita Referrals: [facility] [place] [Outside] [facility] [Outside] William Clements MD [Physician] - 1 month (refer for capsule endoscopy) Discharge Diet: Cardiac Discharge Activity: Resume usual activity Activity Restrictions/Additional Instructions: -Continue to take Lasix 40 mg twice daily, potassium replacement -Only take metolazone 5 mg if you gain more than 2 to 3 pounds in a day -Daily weights -Restrict fluids between 1.5 to 2 L -Avoid blood thinners, NSAIDs -Follow-up with general surgery in 1 month for consideration of capsule endoscopy referral to [facility] Discharge Attestations Time Spent in Discharge Care*: greater than 30 min Status at Discharge: Cognitive status at discharge: cognitively intact, Behavioral status at discharge: cooperative, Quality Metrics Clinical Quality Measures During this hospital stay, did patient experience: None Coding Level of Care Code Acute Systems Trainer for [place] Fwd 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
--- NOTE | 2020-08-30 13:05 | PC.SOCIAL ---
IMM Update Pg. 2 of IMM updated and reviewed with patient who verbalized understanding. Copy provided.
--- NOTE | 2020-08-30 15:00 | PC.NURSE ---
In room to review patient's discharge with patient. Patient is not in her room and gown is on the bed. looked all over med-surgical floor patient is not found. Called patient's cell phone number no one answered and I left a message to return a call to the floor to review discharge instructions. Patient's Central Line was removed at 1400. Waited an hour to make sure there was no bleeding which patient agreed to on her discharge time. Patient medications were delivered to bedside at 1445. Will attempted to call patient again.
== END 2020-08-30 15:00 | disposition home health service (06) | DRG 377 ==
LOC: ER 15:06 → MEDSURG 19:23
PROVIDERS: Nurse Practitioner Family; Admitting Provider Family Medicine; Emergency Provider Family Medicine; PCP Internal Medicine; Visit Provider Family Medicine
DX: K92.2 Gastrointestinal hemorrhage, unspecified (principal); I50.33 Acute on chronic diastolic (congestive) heart failure; I26.99 Other pulmonary embolism without acute cor pulmonale; I13.0 Hypertensive heart and chronic kidney disease with heart failure and stage 1 through stage 4 chronic kidney disease, or unspecified chronic kidney disease; J44.1 Chronic obstructive pulmonary disease with (acute) exacerbation; D50.9 Iron deficiency anemia, unspecified; N18.30 Chronic kidney disease, stage 3 unspecified; F10.129 Alcohol abuse with intoxication, unspecified; Y90.8 Blood alcohol level of 240 mg/100 ml or more; E66.01 Morbid (severe) obesity due to excess calories; Z68.35 Body mass index [BMI] 35.0-35.9, adult; E03.9 Hypothyroidism, unspecified; Z89.021 Acquired absence of right finger(s); Z86.19 Personal history of other infectious and parasitic diseases; Z86.718 Personal history of other venous thrombosis and embolism; Z86.711 Personal history of pulmonary embolism; Z95.828 Presence of other vascular implants and grafts; F31.9 Bipolar disorder, unspecified; R91.8 Other nonspecific abnormal finding of lung field; E83.51 Hypocalcemia; K44.9 Diaphragmatic hernia without obstruction or gangrene; Z79.891 Long term (current) use of opiate analgesic; Z79.51 Long term (current) use of inhaled steroids; Z77.22 Contact with and (suspected) exposure to environmental tobacco smoke (acute) (chronic)
CPT/HCPCS: 12345; 36415; 36430; 36556; 36592; 71045; 80053; 80307; 81003; 82140; 82306; 82310; 82330; 82550; 83605; 83690; 83735; 83880; 83970; 84100; 84145; 84443; 85014; 85018; 85025; 85610; 86140; 86850; 86900; 86920; 87426; 93005; 93970; 94640; 96372; 97116; 97161; 97166; 97535; 99282; C1751; J1170; J1940; J2060; J2270; J2405; J3411; J7040; J7626; P9016

== ENCOUNTER 2020-09-09 17:50 | Inpatient (IN) | payer MEDICARE, MEDICAID, SELFPAY ==
[2020-09-09 18:05] VITALS: BP 165/106; PULSE 122; RESP 24; TEMP 36.7; O2SAT 94; BMI 35.4
--- NOTE | 2020-09-09 18:59 | XRR_ITS ---
PROCEDURE INFORMATION: Exam: XR Chest, 1 View Exam date and time: 09/09/2020 7:06 PM Age: 45 years old Clinical indication: Shortness of breath; Additional info: SOB TECHNIQUE: Imaging protocol: XR of the chest Views: 1 view. Total images: 1 COMPARISON: CR (CHEST, ) 08/27/2020 12:28 PM FINDINGS: Lungs: Diminished inspiratory effort with vascular crowding in the lung bases. No visible active interstitial or alveolar airspace disease. Pleural space: Unremarkable. No pleural effusion. No pneumothorax. Heart/Mediastinum: Large hiatal hernia. Cardiac structures and configuration stable and unremarkable. Bones/joints: Unremarkable. Other findings: Heavy body habitus. XR/XR chest 1V [id number] IMPRESSION: Diminished inspiratory effort.
[2020-09-09] MEDS: haloperidol inj 5 mg/mL INJ 1 mL IM (19:25)
[2020-09-09 19:29] VITALS: BP 147/93; PULSE 121; RESP 14; O2SAT 96
[2020-09-09] MEDS: LORazepam 2 mg/mL INJ 1 mL IM (20:03)
[2020-09-09 20:13] VITALS: BP 144/79; O2SAT 97
--- NOTE | 2020-09-09 20:19 | PC.NURSE ---
patient placed on 2 liters oxygen at 2002 by nurse
[2020-09-09 20:25] LABS: Add Urine Microscopic? NO
[2020-09-09 20:44] LABS: Basophils % 0.5 %; Eosinophils % 0.3 %; Hematocrit 28.8 % (37.0-47.0); Hemoglobin 8.1 g/dL (11.5-15.3); Lymphocytes # 0.5 10^3/uL (0.8-4.8); Lymphocytes % 6.8 %; Mean Corpuscular HGB Conc 28.1 g/dL (30.0-36.0); Mean Corpuscular Hemoglobin 21.8 pg (28.0-34.0); Mean Corpuscular Volume 77.6 fL (81-99); Mean Platelet Volume 9.8 fL (7.4-10.4); Monocytes # 0.5 10^3/uL (0.2-0.9); Monocytes % 5.9 %; Neutrophils # 6.61 10^3/uL (1.8-7.7); Neutrophils % 86.2 %; Nucleated Red Blood Cells % 0 %; Platelet Count 344 10^3/cmm (130-400); Red Blood Count 3.71 10^6/uL (4.1-5.3); Red Cell Distribution Width 19.6 % (12.1-15.1); White Blood Count 7.7 10^3/uL (4.0-10.0)
[2020-09-09] MEDS: sodium chloride 0.9% 1,000 ML 999 ML IV (20:52)
[2020-09-09] MEDS: ondansetron 2 mg/ML SDV 2 mL 4 MG IVP (20:53)
[2020-09-09 20:55] LABS: Bilirubin Urine Neg (Negative); Blood Urine Neg (Negative); Glucose Urine UA Norm (Normal); Ketones Urine Negative (Negative); Leukocyte Esterase Urine Negative (Negative); Nitrate Urine Negative (Negative); Protein Urine Neg (Negative); Urine Appearance Clear (CLEAR); Urine Color Yellow (Yellow); Urobilinogen Urine 1 mg/dL (Negative); pH Urine 6 (5-7)
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
[2020-09-09] MEDS: HYDROmorphone 1 mg/mL INJ 1 mL 2 MG IVP (21:03)
[2020-09-09 21:19] LABS: INR 1.15 (0.8-1.2); Partial Thromboplastin Time 23.8 SECONDS (23.9-36.7)
[2020-09-09 21:31] VITALS: O2SAT 96
[2020-09-09 21:31] LABS: Alanine Aminotransferase 18 U/L (0-33); Albumin Level 3.4 g/dL (3.5-5.2); Alkaline Phosphatase 227 IU/L (35-105); Anion Gap 15.4 (5-19); Aspartate Amino Transferase 14 U/L (0-32); Blood Urea Nitrogen 8 mg/dL (6-20); C Reactive Protein 1.5 mg/L (0.0-4.9); Calcium 7.9 mg/dL (8.5-10.5); Carbon Dioxide 30 mmol/L (22-29); Chloride 100 mmol/L (98-107); Creatine Phosphokinase 59 U/L (26-192); Globulin 3.8 g/dL (1.3-4.6); Glomerular Filtration Rate 59.7 mL/min (90-130); Glucose 102 mg/dL (65-115); Lipase 43 U/L (13-60); Osmolality Calculated 293 mOsm/kg (285-295); Potassium 3.4 mmol/L (3.5-5.1); Sodium 142 mmol/L (136-145); Total Bilirubin 0.7 mg/dL (0.15-1.2); Total Protein 7.2 g/dL (6.6-8.7)
[2020-09-09 21:32] LABS: Lactate (Lactic Acid level) 3.4 mmol/L (0.5-2.2)
[2020-09-09 22:08] VITALS: BP 94/72; PULSE 99; RESP 18; O2SAT 99
[2020-09-09 22:50] VITALS: BP 119/80; O2SAT 100
[2020-09-09 23:01] LABS: Alcohol Level < 10 mg/dL (0-10)
--- NOTE | 2020-09-09 23:33 | CTR_ITS ---
PROCEDURE INFORMATION: Exam: CT Abdomen And Pelvis Without Contrast Exam date and time: 09/09/2020 11:34 PM Age: 45 years old Clinical indication: Abdominal pain; Prior surgery; Surgery type: Gb; Patient HX: Bilateral flank pain with n/v. ; Additional info: Intractable vomiting, back pain, reported hematuria TECHNIQUE: Imaging protocol: Computed tomography of the abdomen and pelvis without contrast. Radiation optimization: All CT scans at this facility use at least one of these dose optimization techniques: automated exposure control; mA and/or kV adjustment per patient size (includes targeted exams where dose is matched to clinical indication); or iterative reconstruction. COMPARISON: CT abdomen pelvis wo con [id number] 07/09/2020 4:24 AM RADIATION DOSE METRICS: Total DLP (mGy-cm): 1900.68 FINDINGS: Mediastinal space: There are strandy opacities that superimposed over the hiatal hernia compatible with atelectasis. Liver: There is hypoattenuation of the hepatic parenchyma compatible with mild fatty infiltration. Gallbladder and bile ducts: Status post cholecystectomy. The common bile duct is prominent measuring 13 mm in its midportion tapering to normal caliber within the pancreas. Pancreas: Normal. No ductal dilation. Spleen: Normal. No splenomegaly. Adrenal glands: Normal. No mass. Kidneys and ureters: Normal. No hydronephrosis. Stomach and bowel: There is a prominent hernia measuring 13 cm transverse dimension containing the proximal and mid stomach. Diverticula are seen the descending and sigmoid colon. There are no inflammatory changes seen to suggest diverticulitis. Appendix: The appendix is visualized and is normal in configuration. Intraperitoneal space: Unremarkable. No free air. No significant fluid collection. Vasculature: An inferior vena caval filter is present. Lymph nodes: Unremarkable. No enlarged lymph nodes. Urinary bladder: Unremarkable as visualized. Reproductive: Status post hysterectomy. Bones/joints: There is diffuse loss of disc height seen within the thoracolumbar spine compatible with degenerative disc disease. Soft tissues: There is a small umbilical hernia present. CT/CT kidney stone [id number] IMPRESSION: 1. Prominent hiatal hernia containing the proximal and mid stomach. There is no evidence for bowel obstruction. 2. Mildly prominent common bile duct without evidence of choledocholithiasis or extrinsic masses. This is likely compensatory to cholecystectomy. 3. Fatty infiltration liver 4. Small fat filled umbilical hernia 5. Diverticulosis of the descending and sigmoid colon 6. Probable atelectasis superimposed over the large hiatal hernia. Radiation Dose CTDIVOL = (mGy): DLP = 1900.68 (mGy-cm)
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
--- NOTE | 2020-09-09 23:41 | PC.NURSE ---
tried to call report to [facility] but was unable to get ahold of receiving nurse.
[2020-09-10] VITALS (17 sets, daily range): BP systolic 109–139; BP diastolic 71–91; PULSE 85–106; RESP 16–18; TEMP 36.8–37.4; O2SAT 89–98
[2020-09-10 00:40] LABS: ABG PCO2 48.2 mmHg (35-45); ABG PH Result 7.43 (7.35-7.45); Arterial Blood Gas Hematocrit 24.3 % (37-47); Base Excess ABG 6.5 mmol/L (-2.0-2.0); Blood Gas Allen Test Pos; Blood Gas Sample Type Arterial; HCO3 ABG 31.6 mmol/L (22-26); PO2 ABG 77.3 mmHg (80.0-100.0)
[2020-09-10 00:44] LABS: Blood Gas Sample Site Radial, right; Oxygen Device NC
[2020-09-10 01:22] LABS: Thyroid Stimulating Hormone 37.32 uIU/mL (0.27-4.20)
[2020-09-10] MEDS: lactated ringers 1,000 ML 100 ML IV ×2 (01:36→16:07)
[2020-09-10] MEDS: lidocaine 1% 5 ML in potassium chloride premix 100 ML 25 ML IV (01:37)
[2020-09-10 03:17] LABS: Ferritin 22 ng/mL (15-150); Iron 20 ug/dL (37-145); Percent Saturation 4.3 % (20-50); Total Iron Binding Capacity 460 mcg/dl; Unsaturated Iron Binding 440 ug/dL (112-347)
[2020-09-10 04:06] LABS: Basophils % 0.7 %; Eosinophils # 0.1 10^3/uL (0.0-0.8); Eosinophils % 1.4 %; Hematocrit 25.9 % (37.0-47.0); Hemoglobin 7.2 g/dL (11.5-15.3); Lymphocytes # 0.8 10^3/uL (0.8-4.8); Lymphocytes % 18.2 %; Mean Corpuscular HGB Conc 27.8 g/dL (30.0-36.0); Mean Corpuscular Hemoglobin 21.4 pg (28.0-34.0); Mean Corpuscular Volume 77.1 fL (81-99); Mean Platelet Volume 9.9 fL (7.4-10.4); Monocytes # 0.4 10^3/uL (0.2-0.9); Monocytes % 10.1 %; Neutrophils # 2.89 10^3/uL (1.8-7.7); Neutrophils % 69.4 %; Nucleated Red Blood Cells % 0 %; Platelet Count 284 10^3/cmm (130-400); Red Blood Count 3.36 10^6/uL (4.1-5.3); Red Cell Distribution Width 19.8 % (12.1-15.1); White Blood Count 4.2 10^3/uL (4.0-10.0)
[2020-09-10 04:34] LABS: Alanine Aminotransferase 15 U/L (0-33); Alkaline Phosphatase 210 IU/L (35-105); Anion Gap 10.1 (5-19); Aspartate Amino Transferase 14 U/L (0-32); Blood Urea Nitrogen 8 mg/dL (6-20); Calcium 7.5 mg/dL (8.5-10.5); Carbon Dioxide 31 mmol/L (22-29); Chloride 102 mmol/L (98-107); Globulin 3.3 g/dL (1.3-4.6); Glomerular Filtration Rate 67.4 mL/min (90-130); Glucose 89 mg/dL (65-115); Osmolality Calculated 286 mOsm/kg (285-295); Potassium 4.1 mmol/L (3.5-5.1); Sodium 139 mmol/L (136-145); Total Bilirubin 1.2 mg/dL (0.15-1.2); Total Protein 6.3 g/dL (6.6-8.7)
[2020-09-10] MEDS: sucralfate 1 gm Tablet PO ×2 (05:30→17:24)
[2020-09-10] MEDS: potassium chloride ER 20 mEq Tablet PO ×2 (05:31→17:34)
[2020-09-10] MEDS: folic acid 1 mg Tablet PO (05:31)
[2020-09-10] MEDS: levETIRAcetam 500 mg Tablet 1000 MG PO ×2 (05:31→17:25)
[2020-09-10] MEDS: benzonatate 100 mg Capsule 200 MG PO ×3 (05:32→17:24)
[2020-09-10] MEDS: pantoprazole DR 40 mg Tablet PO ×2 (05:33→17:25)
[2020-09-10] MEDS: levothyroxine 25 mcg Tablet PO (05:33)
[2020-09-10] MEDS: levothyroxine 100 mcg Tablet 200 MCG PO (05:34)
[2020-09-10] MEDS: fluticasone nasal spray 16gm Btl 1 SPRAY INTRANASAL ×2 (05:38→17:25)
[2020-09-10] MEDS: budesonide 0.5 mg/2 mL Neb 0.25 MG INHALATION ×2 (08:46→19:37)
[2020-09-10] MEDS: ipratropium-albuterol 3 mL Neb INHALATION ×3 (08:46→20:05)
[2020-09-10 09:54] LABS: Lactate Dehydrogenase 268 U/L (135-214)
--- NOTE | 2020-09-10 12:06 | PM.PN ---
Subjective Subjective: Interval history: This is a 45-year-old female with complicated medical history including chronic anemia, gastritis who presented to the ER with some difficulty breathing nausea vomiting. The patient also is on chronic oxygen 2 L for COPD. This morning she reports that she feels slightly better. Less nausea no episodes of vomiting since admission. denies Medications: Reviewed: Yes Vitals/I&O/Wt Last Vital Signs Temp 98.2 F 09/10/20 11:34 Pulse 87 09/10/20 11:34 Resp 18 09/10/20 11:34 BP 133/83 09/10/20 11:34 Pulse Ox 96 09/10/20 11:34 09/09/20 09/10/20 09/10/20 22:59 06:59 14:59 Intake Total 60 / 60 120 / 120 Output Total 150 / 150 Balance -90 / -90 120 / 120 Weight last 48 hrs Weight 216 lb 12.8 oz Weight 200 lb Physical Exam Const: COMMON NORMALS: no acute distress and patient oriented x3 GENERAL APPEARANCE: cooperative Resp: COMMON NORMALS: normal respiratory effort and No retractions Cardio: COMMON NORMALS: regular rate RATE: regular rate GI: COMMON NORMALS: Soft to palpation and non-tender PALPATION: Yes Soft to palpation Neuro: COMMON NORMALS: patient oriented x3 and CN's II-XII intact bilaterally Psych: COMMON NORMALS: mental status grossly normal Data : 09/10/20 03:55 09/10/20 03:55 A&P Assessment and plan (1) Intractable nausea and vomiting: Status: Acute (2) Chronic kidney disease, stage III (moderate): Status: Acute (3) COPD (chronic obstructive pulmonary disease): Status: Acute Qualifiers: COPD type: COPD with acute exacerbation Qualified Code(s): J44.1 - Chronic obstructive pulmonary disease with (acute) exacerbation (4) Microcytic anemia: Status: Acute Additional A&P Information Is a 45-year-old female with complicated medical history including COPD, chronic anemia, gastritis who presented nausea vomiting and anemia. #intractable nausea and vomiting -stable -advance diet as tolerated -IVF -PRN antiemetics #Microcytic anemia -monitor vitals -repeat H/H -IVF -check stool occult -check PBS, retic count, LDH, haptoglobin -Less than 7 or she develops symptoms -PPI, sucralfate -Consider surgery consultation COPD -Continue oxygen and inhalers Hypothyroidism -Abnormal TSH continue home dose of thyroid replacement -Outpatient endocrinology evaluation Dispo: DC soon if H/H stable,and nausea improved Attestations Medical Necessity Statement*: Delores Bijan Mckeon's hospital stay will require greater than 2 midnights for nausea Coding Level of Care Code Acute Insurance Law Specialist for Chg 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 Diagnoses Intractable nausea and vomiting R11.2 Chronic kidney disease, stage III (moderate) N18.3 COPD (chronic obstructive pulmonary disease) J44.1 COPD type: COPD with acute exacerbation Microcytic anemia D50.9
--- NOTE | 2020-09-10 12:28 | PC.NURSE ---
Patient aware of need for stool sample. Patient up to bedside commode twice over the past few hours, but denies need to have bowel movement.
[2020-09-10 13:42] LABS: LAB Peripheral Smear Sent for Review
[2020-09-10 13:56] LABS: Hematocrit 25.5 % (37.0-47.0)
--- NOTE | 2020-09-10 14:05 | PC.NURSE ---
Patient resting in bed. at bedside
--- NOTE | 2020-09-10 15:27 | PC.NURSE ---
Patient's at bedside.
--- NOTE | 2020-09-10 16:16 | PC.NURSE ---
Patient sleeping. at bedside
--- NOTE | 2020-09-10 18:07 | PC.NURSE ---
Patient states she is only allergic to the oxycodone with acetaminophen in it. States she takes plain oxycodone at home.
[2020-09-10] MEDS: oxyCODONE 5 mg IR Tab/Cap PO (18:12)
--- NOTE | 2020-09-10 18:28 | PC.NURSE ---
SHIFT SUMMARY Patient has had increased awareness and more awake throughout the day. Initially, patient was very lethargic, however, patient is now staying awake more easily and was having conversations with her while at bedside. She is able to get to the bedside commode by herself. Patient is aware of the need for a stool sample, but has been unable to have bowel movement during shift. Patient has had some complaint of bone pain; oxycodone 5mg given per Dr. Early. Patient is requesting to be moved to a full diet versus liquid diet.
[2020-09-10 18:53] LABS: Hemoglobin 7.7 g/dL (11.5-15.3)
[2020-09-10] MEDS: morphine 4 mg/mL SDV 1 mL 2 MG IVP ×2 (21:19→23:50)
[2020-09-10] MEDS: ondansetron 2 mg/ML SDV 2 mL 4 MG IVP (23:51)
[2020-09-11] VITALS (19 sets, daily range): BP systolic 115–154; BP diastolic 70–87; PULSE 85–109; RESP 16–20; TEMP 36.4–37.3; O2SAT 93–100
[2020-09-11] MEDS: lactated ringers 1,000 ML 100 ML IV (02:14)
[2020-09-11] MEDS: ipratropium-albuterol 3 mL Neb INHALATION ×4 (02:15→20:12)
[2020-09-11] MEDS: oxyCODONE 5 mg IR Tab/Cap PO ×3 (03:12→17:38)
[2020-09-11 04:06] LABS: Basophils % 0.7 %; Eosinophils # 0.2 10^3/uL (0.0-0.8); Eosinophils % 5.6 %; Hematocrit 25.8 % (37.0-47.0); Lymphocytes # 0.8 10^3/uL (0.8-4.8); Lymphocytes % 26.8 %; Mean Corpuscular HGB Conc 27.1 g/dL (30.0-36.0); Mean Corpuscular Hemoglobin 21.7 pg (28.0-34.0); Mean Corpuscular Volume 79.9 fL (81-99); Mean Platelet Volume 9.6 fL (7.4-10.4); Monocytes # 0.3 10^3/uL (0.2-0.9); Monocytes % 10.3 %; Neutrophils % 56.3 %; Nucleated Red Blood Cells % 0 %; Platelet Count 251 10^3/cmm (130-400); Red Blood Count 3.23 10^6/uL (4.1-5.3); Red Cell Distribution Width 19.6 % (12.1-15.1)
[2020-09-11 04:29] LABS: Alanine Aminotransferase 12 U/L (0-33); Albumin Level 2.7 g/dL (3.5-5.2); Alkaline Phosphatase 191 IU/L (35-105); Anion Gap 10.8 (5-19); Aspartate Amino Transferase 12 U/L (0-32); Blood Urea Nitrogen 6 mg/dL (6-20); Calcium 7.4 mg/dL (8.5-10.5); Carbon Dioxide 27 mmol/L (22-29); Chloride 106 mmol/L (98-107); Globulin 3.2 g/dL (1.3-4.6); Glomerular Filtration Rate 67.4 mL/min (90-130); Glucose 78 mg/dL (65-115); Osmolality Calculated 286 mOsm/kg (285-295); Potassium 3.8 mmol/L (3.5-5.1); Sodium 140 mmol/L (136-145); Total Bilirubin 0.9 mg/dL (0.15-1.2); Total Protein 5.9 g/dL (6.6-8.7)
--- NOTE | 2020-09-11 04:44 | XRR_ITS ---
PROCEDURE INFORMATION: Exam: XR Lumbosacral Spine, 2 or 3 Views Exam date and time: 09/11/2020 4:45 AM Age: 45 years old Clinical indication: Pain and injury or trauma; Blunt trauma (contusions or hematomas); Patient HX: Low back pain, fall 1 week ago TECHNIQUE: Imaging protocol: XR of the lumbosacral spine, 2 or 3 views. COMPARISON: CT kidney stone [id number] 09/10/2020 12:03 AM FINDINGS: Bones/joints: Vascular filter overlies the central abdomen at L2-L3 level right of midline. Degenerative facet arthritis and degenerative endplate irregularity at the lumbosacral junction. Normal alignment with straightening of lumbar lordosis. Mild upper lumbar degenerative endplate irregularity. Narrowing of lumbar interspaces most pronounced at L1, L2 and L5. Soft tissues: Unremarkable. Intraperitoneal space: Surgical clips right upper quadrant. XR/XR lumbar spine 2-3V* [id number] IMPRESSION: 1. Degenerative changes lumbar spine. 2. No acute fracture.
[2020-09-11] MEDS: pantoprazole DR 40 mg Tablet PO ×2 (05:08→17:38)
[2020-09-11] MEDS: sucralfate 1 gm Tablet PO ×2 (05:08→17:38)
[2020-09-11] MEDS: folic acid 1 mg Tablet PO (05:08)
[2020-09-11] MEDS: benzonatate 100 mg Capsule 200 MG PO ×3 (05:09→21:03)
[2020-09-11] MEDS: fluticasone nasal spray 16gm Btl 1 SPRAY INTRANASAL ×2 (05:09→17:37)
[2020-09-11] MEDS: levothyroxine 100 mcg Tablet 200 MCG PO (05:09)
[2020-09-11] MEDS: potassium chloride ER 20 mEq Tablet PO ×2 (05:09→17:38)
[2020-09-11] MEDS: levETIRAcetam 500 mg Tablet 1000 MG PO ×2 (05:09→17:38)
[2020-09-11] MEDS: levothyroxine 25 mcg Tablet PO (05:09)
--- NOTE | 2020-09-11 06:24 | NUR.SHIFT ---
Patient only slept partially through the night. Patient's pain was not controlled by oxycodone or morphine. Dr ordered lidocaine patient.
[2020-09-11] MEDS: lidocaine 5% Patch 1 PATCH TOPICAL ×2 (08:14→21:04)
[2020-09-11] MEDS: budesonide 0.5 mg/2 mL Neb 0.25 MG INHALATION ×2 (08:29→19:30)
[2020-09-11] MEDS: ondansetron 2 mg/ML SDV 2 mL 4 MG IVP (10:25)
--- NOTE | 2020-09-11 11:31 | PM.PN ---
Subjective Subjective: Interval history: This is a 45-year-old female with complicated medical history including chronic anemia, gastritis who presented to the ER with some difficulty breathing nausea vomiting. The patient also is on chronic oxygen 2 L for COPD. reports joint pain, most notable in back denies SOB, has nausea Hgb noted to be 7 this AM Medications: Reviewed: Yes Vitals/I&O/Wt Last Vital Signs Temp 98.5 F 09/11/20 11:06 Pulse 93 09/11/20 11:06 Resp 20 H 09/11/20 11:06 BP 154/79 09/11/20 11:06 Pulse Ox 98 09/11/20 11:06 09/10/20 09/11/20 09/11/20 22:59 06:59 14:59 Intake Total 360 / 1900 1120 / 3020 800 / 800 Output Total 1000 / 1000 Balance 360 / 1750 1120 / 2870 -200 / -200 Weight last 48 hrs Weight 215 lb 11.2 oz Weight 216 lb 12.8 oz Weight 200 lb Physical Exam Const: COMMON NORMALS: no acute distress and patient oriented x3 GENERAL APPEARANCE: cooperative Resp: COMMON NORMALS: normal respiratory effort and No retractions Cardio: COMMON NORMALS: regular rate RATE: regular rate GI: COMMON NORMALS: Soft to palpation and non-tender PALPATION: Yes Soft to palpation Neuro: COMMON NORMALS: patient oriented x3 and CN's II-XII intact bilaterally Psych: COMMON NORMALS: mental status grossly normal Data : 09/11/20 03:55 09/11/20 03:55 A&P Assessment and plan (1) Intractable nausea and vomiting: Status: Acute (2) Chronic kidney disease, stage III (moderate): Status: Acute (3) COPD (chronic obstructive pulmonary disease): Status: Acute Qualifiers: COPD type: COPD with acute exacerbation Qualified Code(s): J44.1 - Chronic obstructive pulmonary disease with (acute) exacerbation (4) Microcytic anemia: Status: Acute Additional A&P Information Is a 45-year-old female with complicated medical history including COPD, chronic anemia, gastritis who presented nausea vomiting and anemia. #intractable nausea and vomiting -stable, PRN Zofran -advance diet as tolerated -IVF -PRN antiemetics #Microcytic anemia -monitor vitals -repeat H/H -IVF -check stool occult -check PBS, retic count, LDH, haptoglobin--pending -celiac pending -transfuse 1 unit prbc -PPI, sucralfate -Consider surgery consultation COPD -Continue oxygen and inhalers Hypothyroidism -Abnormal TSH continue home dose of thyroid replacement -Outpatient endocrinology evaluation Lumbago -add tizanidine Dispo: DC soon if H/H stable,and nausea improved Attestations Medical Necessity Statement*: Delores Thakkar Mike's hospital stay will require greater than 2 midnights for nausea, anemia Coding Level of Care Code Acute Coagulating Operator for Chg Fwd Diagnoses Intractable nausea and vomiting R11.2 Chronic kidney disease, stage III (moderate) N18.3 COPD (chronic obstructive pulmonary disease) J44.1 COPD type: COPD with acute exacerbation Microcytic anemia D50.9
--- NOTE | 2020-09-11 12:35 | PC.CHAP ---
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 salt washer visit [] Patient/Family/Request visit [] Outpatient visit [] Follow-up visit [] Physician referral [] Code/Alert [XX] Routine visit [] Staff referral [] Actively dying [] Patient sleeping [] Family support [] [] Out of room [] Palliative care [] [] Receiving care in room [] Pre-surgical visit [] Trauma [] Long length of stay [] ICU visit [] Other: Relational/Emotional Strength [XX] Patient feels connected with others/family/visitors/staff [] Distress [] Loneliness/isolation [] Abandonment Spirituality of Patient [XX] Person of Angy [XX] Attends Yazidism of their Angy [XX] Believes in Prayer [XX] Reads Bible or Hindu materials [] There are Spiritual issues to be addressed Dusting And Brushing Machine Operator Interventions [XX] Prayer [XX] Active listening [XX] Non-anxious presence [XX] Spiritual/emotional support [] Crisis/trauma care [] Spiritual counseling [] Bereavement support [] Provided bereavement packet [XX] Provided Bible/devotional materials [] Provided toy/stuffed animal, coloring book to patient or family member [] Provided Communion [] Anointing/[place] [] Salvation [XX] Completed spiritual assessment [] Other: Impact on Illness or Injury [] Angry [] Fearful [] Anxious [] Often cries [] Exhaustion [] Unable to work [] Unable to attend scientology [] Unable to walk/stand [] Unable to read [] Unable to drive [] Unable to eat/drink [] Unable to sleep [] Unable to be with family [] Patient intubated [] Other: Summary: Pt concerned because underlying cause of the bleeding has not yet been determined. Her new grandchildren are visiting and she's not yet been able to see them. Pt has good support system and was able to watch her religion service online this morning. Time spent with patient: 10 mins
[2020-09-11] MEDS: CLONazepam 0.5 mg Tablet 0.25 MG PO (14:09)
[2020-09-11] MEDS: sodium chloride 0.9% (100 ml) 100 ML 30 ML (18:17)
--- NOTE | 2020-09-11 18:27 | PC.NURSE ---
SHIFT SUMMARY Patient has been calm and cooperative throughout shift, though she has had complaints of increased pain. Did have some nausea earlier this shift, but after ondansetron this AM has not had any other complaints. Patient was given lidocaine patch (placed on right lower back) but experienced minimal relief. Have been giving her oxycodone 5mg around the clock as well as giving her her klonopin. Does still have some complaints of pain, but has been able to rest throughout the day. Did receive one unit of blood today. Patient's came and sat with her this afternoon during visiting hours. Patient had one bowel movement today; specimen sent to lab. Patient has been requesting regular diet; per Dr. Early, patient's diet was moved to full liquid diet this afternoon and, if she tolerates it, will move to a regular diet tomorrow AM.
[2020-09-12] VITALS (10 sets, daily range): BP systolic 114–153; BP diastolic 72–94; PULSE 65–94; RESP 17–22; TEMP 36.4–36.7; O2SAT 96–99
[2020-09-12] MEDS: lactated ringers 1,000 ML 100 ML IV ×2 (00:21→08:48)
[2020-09-12] MEDS: CLONazepam 0.5 mg Tablet 0.25 MG PO ×2 (00:22→11:58)
[2020-09-12] MEDS: oxyCODONE 5 mg IR Tab/Cap PO ×2 (00:22→08:42)
[2020-09-12] MEDS: ipratropium-albuterol 3 mL Neb INHALATION ×2 (02:20→08:13)
[2020-09-12 04:38] LABS: Eosinophils # 0.3 10^3/uL (0.0-0.8); Eosinophils % 7.8 %; Hematocrit 28.2 % (37.0-47.0); Hemoglobin 7.9 g/dL (11.5-15.3); Lymphocytes # 1.1 10^3/uL (0.8-4.8); Lymphocytes % 28.5 %; Mean Corpuscular Hemoglobin 22.4 pg (28.0-34.0); Mean Corpuscular Volume 80.1 fL (81-99); Mean Platelet Volume 10.7 fL (7.4-10.4); Monocytes # 0.3 10^3/uL (0.2-0.9); Monocytes % 8.6 %; Neutrophils # 2.06 10^3/uL (1.8-7.7); Neutrophils % 53.8 %; Nucleated Red Blood Cells % 0 %; Platelet Count 282 10^3/cmm (130-400); Red Blood Count 3.52 10^6/uL (4.1-5.3); Red Cell Distribution Width 19.3 % (12.1-15.1); White Blood Count 3.8 10^3/uL (4.0-10.0)
[2020-09-12 05:07] LABS: Alanine Aminotransferase 12 U/L (0-33); Albumin Level 2.9 g/dL (3.5-5.2); Alkaline Phosphatase 168 IU/L (35-105); Anion Gap 12.2 (5-19); Aspartate Amino Transferase 10 U/L (0-32); Blood Urea Nitrogen 5 mg/dL (6-20); Calcium 7.6 mg/dL (8.5-10.5); Carbon Dioxide 25 mmol/L (22-29); Chloride 106 mmol/L (98-107); Globulin 3.3 g/dL (1.3-4.6); Glomerular Filtration Rate 77.2 mL/min (90-130); Glucose 107 mg/dL (65-115); Osmolality Calculated 286 mOsm/kg (285-295); Potassium 4.2 mmol/L (3.5-5.1); Sodium 139 mmol/L (136-145); Total Bilirubin 0.9 mg/dL (0.15-1.2); Total Protein 6.2 g/dL (6.6-8.7)
[2020-09-12] MEDS: benzonatate 100 mg Capsule 200 MG PO ×2 (05:41→11:57)
[2020-09-12] MEDS: levothyroxine 25 mcg Tablet PO (05:42)
[2020-09-12] MEDS: levETIRAcetam 500 mg Tablet 1000 MG PO (05:42)
[2020-09-12] MEDS: pantoprazole DR 40 mg Tablet PO (05:42)
[2020-09-12] MEDS: folic acid 1 mg Tablet PO (05:42)
[2020-09-12] MEDS: sucralfate 1 gm Tablet PO (05:42)
[2020-09-12] MEDS: levothyroxine 100 mcg Tablet 200 MCG PO (05:43)
[2020-09-12] MEDS: fluticasone nasal spray 16gm Btl 1 SPRAY INTRANASAL (05:44)
[2020-09-12] MEDS: potassium chloride ER 20 mEq Tablet PO (05:44)
[2020-09-12] MEDS: budesonide 0.5 mg/2 mL Neb 0.25 MG INHALATION (08:13)
[2020-09-12] MEDS: lidocaine 5% Patch 1 PATCH TOPICAL (08:40)
[2020-09-12] MEDS: tizanidine 4 mg Tablet PO ×2 (08:42→13:51)
[2020-09-12] MEDS: guaiFENesin-dextromethorphan UDC 10 mL PO ×2 (08:47→13:51)
--- NOTE | 2020-09-12 13:03 | PC.RESP ---
Pulmonary Rehab information sent to patient.
--- NOTE | 2020-09-12 20:28 | P.DS_ITS ---
Discharge Providers Date of Admission: 09/10/20 14:04 Date of Discharge: September 12, 2020 Attending Provider at Admission: Herminio Ovalle Attending Provider at Discharge: Oralia Gabriel Primary Care Provider: Octaviano Sue MD Diagnoses at Discharge Discharge Diagnosis (1) Intractable nausea and vomiting: Status: Resolved (2) Chronic kidney disease, stage III (moderate): Status: Acute (3) COPD (chronic obstructive pulmonary disease): Status: Acute Permanent problem details: -oxygen dependent Qualifiers: COPD type: COPD with acute exacerbation Qualified Code(s): J44.1 - Chronic obstructive pulmonary disease with (acute) exacerbation (4) Microcytic anemia: Status: Acute Reason for Visit Reason for Visit: SOB, Bloody Discharge Hospital Course Hospital Course 45-year-old lady with recent admission for assessment management of anemia, with multiple prior EGDs, last admit was monitored, and preferred not to undergo EGD due to recent study which showed gastritis. Concern was expressed by surgery with regards to inadequate bone marrow production. She was also referred for follow-up with surgery for additional referral for capsule endoscopy. Hemoglobin at discharge was 8.7. She currently presents to the hospital due to several days of intermittent vomiting. During my visit in ER she is somnolent, wakes up and answers a few questions, but promptly falls back asleep. History mostly obtained from her , although he is not a good historian. She reportedly was very bothered by nausea earlier, was becoming very restless. So far has been treated with 1 L fluid bolus. Zofran, Dilaudid, Ativan, Haldol. Her lactic acid is noted to be 3.4. BUN 8. Creatinine 1. Potassium 3.4. Alk phos with chronic elevation at 227. Urinalysis unremarkable. EtOH less than 10. Hemoglobin 8.1. Chest x-ray with diminished inspiratory effort. Noted sinus tachycardia, current heart rate in the 90s. She is on 2 L oxygen, and states she uses oxygen chronically for COPD. Upon admission to the hospital patient was transfused with 1 unit of PRBCs. Her admission hemoglobin was 8.1. This had decreased to 7.0. She was transfused with 1 unit of PRBCs. After this hemoglobin had remained fairly stable. Iron studies has shown iron level of 20, TIBC of 460% saturation of 4.3 and ferritin of 22. TSH was found to be slightly elevated 37. autoimmune workup was sent and pending at the time of discharge. At the time of discharge she had improved to 7.9. No further episodes of emesis. At the time assumed care the patient she was tolerating oral intake. Advised her to follow-up with Hematology-Oncology shortly after discharge. Patient was wanting to be discharged home. As she was in stable condition this was completed on 09/12. Repeat outpatient cbc was advised with in 1 week after discharge. Advised to also follow up with pcp with in 1 week. To return to ER if any new symptoms or bleeding. Physical Exam Const: COMMON NORMALS: no acute distress and patient oriented x3 GENERAL APPEARANCE: cooperative and lethargic NUTRITIONAL APPEARANCE: obese ORIENTATION/CONSCIOUSNESS: Yes lethargic HENMT: COMMON NORMALS: oropharynx normal Neck/C-Spine: COMMON NORMALS: no JVD Resp: COMMON NORMALS: normal respiratory effort, No retractions and clear to auscultation bilaterally AUSCULTATION: clear to auscultation bilaterally Cardio: COMMON NORMALS: no JVD, regular rate, regular rhythm, S1 normal heart sound present, S2 normal heart sound present and No murmurs present (Cardio) RATE: regular rate RHYTHM: regular rhythm HEART SOUNDS: S1 normal heart sound present and S2 normal heart sound present GI: COMMON NORMALS: Normal to inspection, nondistended, normoactive bowel sounds present, Soft to palpation and non-tender PALPATION: Yes Soft to palpation Extremity: COMMON NORMALS: no joint enlargement and no pedal edema Neuro: COMMON NORMALS: patient oriented x3, CN's II-XII intact bilaterally and moves all extremities SENSORIUM/ORIENTATION: Yes lethargic Psych: COMMON NORMALS: mental status grossly normal Skin: COMMON NORMALS: no rashes or lesions noted GENERAL SKIN EXAM: no rashes or lesions noted Discharge Data Data Completed and Pending: Completed Studies During Hospitalization Category Date Time Status CT kidney stone 7 [id number] Urgent Cat Scan 09/09/20 23:33 Completed XR chest 1V [id number] Stat Exams 09/09/20 18:59 Completed XR lumbar spine 2 -3V* [id number] Routine Exams 09/11/20 04:44 Completed Pending at discharge Category Date Time Status Celiac Disease Di agniostic Malloy Rout ine Lab 09/10/20 13:43 Results Labs from last 24 hours 09/10/20 13:43 IgA 193 Vitals: Last Vital Signs Temp 98.1 F 09/12/20 14:52 Pulse 65 09/12/20 14:52 Resp 20 H 09/12/20 14:52 BP 123/72 09/12/20 14:52 Pulse Ox 99 09/12/20 14:52 Discharge Plan Discharge Patient Disposition: Home Condition: Stable Prescriptions: New Zanaflex 2 mg capsule 2 mg PO Q12H PRN (Reason: muscle spasticity) Qty: 10 RF: 0 Continued albuterol sulfate 90 mcg/actuation HFA aerosol inhaler 2 inh INHALATION Q4H PRN (Reason: shortness of breath or wheezing) Qty: 6.7 RF: 0 epinephrine [EpiPen 2-Tim] 0.3 mg/0.3 mL auto-injector 0.3 mg IM PRN PRN (Reason: Allergic Reaction) RF: 0 levetiracetam [Keppra] 500 mg tablet 1,000 mg PO BID@0600,1800 RF: 0 liothyronine [Cytomel] 25 mcg tablet 25 mcg PO DAILY Qty: 90 RF: 3 furosemide 40 mg tablet 40 mg PO BID@0600,1800 RF: 0 levothyroxine 25 mcg tablet 25 mcg PO DAILY@0600 RF: 0 Klor-Con M20 20 mEq tablet,ER particles/crystals 20 meq PO BID@0600,1800 RF: 0 benzonatate 100 mg capsule 200 mg PO TID@0600,1200,1800 RF: 0 pantoprazole 40 mg tablet,delayed release (DR/EC) 40 mg PO BID@0600,1800 RF: 0 budesonide 0.25 mg/2 mL suspension for nebulization 0.25 mg INHALATION BID@0600,1800 RF: 0 folic acid 1 mg tablet 1 mg PO DAILY@0600 RF: 0 Flonase Allergy Relief 50 mcg/actuation spray,suspension 1 spray INTRANASAL BID@0600,1800 RF: 0 cholecalciferol (vitamin D3) 125 mcg (5,000 unit) tablet 5,000 unit PO DAILY@0600 RF: 0 Vitamin B-1 (mononitrate) 100 mg tablet 100 mg PO DAILY@0600 RF: 0 Spiriva Respimat 2.5 mcg/actuation mist 2 puff INHALATION DAILY@0600 RF: 0 levothyroxine 200 mcg capsule 200 mcg PO DAILY@0600 RF: 0 dextromethorphan-guaifenesin 10-100 mg/5 mL Syrup 10 ml PO Q4H PRN (Reason: Cough) Qty: 30 RF: 0 ipratropium-albuterol 0.5 mg-3 mg(2.5 mg base)/3 mL solution for nebulization 3 ml INHALATION Q6H Qty: 15 RF: 0 albuterol sulfate 0.63 mg/3 mL solution for nebulization 0.63 mg INHALATION Q4H PRN (Reason: Shortness Of Breath) RF: 0 sucralfate 1 gram tablet 1 g PO BID@0600,1800 RF: 0 Incruse Ellipta 62.5 mcg/actuation blister with device 1 inh INHALATION DAILY@0600 RF: 0 clonazepam 0.5 mg tablet 0.25 mg PO BID PRN (Reason: anxiety) Qty: 14 RF: 0 metolazone 5 mg tablet 5 mg PO DAILY PRN (Reason: weight gain) 30 Days Qty: 30 RF: 0 Discharge Orders: Discharge Order (Routine); Ordered 09/12/20 Ordered By: Oralia Gabriel Other Ambulatory Orders: Complete Blood Count w/Auto (Routine) Timeframe: 3 Days Location: Determined by Patient Ordered By: Oralia Gabriel Referrals: Octaviano Sue MD [Primary Care Provider] - 09/27/20 11:00 am Discharge Diet: Usual diet Discharge Activity: Increase activity as tolerated Patient Instructions: Tizanidine (By mouth), Hematuria - Female, Hypokalemia, Acute Nausea and Vomiting (DC) Activity Restrictions/Additional Instructions: return to ER if recurrence of GI bleed. Follow up for repeat CBC in 3 days. 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
[2020-09-14 10:19] LABS: Immunoglobulin A 193 mg/dL (47-310)
[2020-09-14 15:28] LABS: Tissue Transglutaminase IgA Ab <1 U/mL; Tissue transglutaminase Ab.IgG 2 U/mL
[2020-09-15 00:04] LABS: Gliadin Ab.IgA 3 U (<20); Gliadin Ab.IgG 3 U (<20)
== END 2020-09-12 14:52 | disposition home or self-care (01) | DRG 812 ==
LOC: ER 18:52 → MEDSURG 23:29
PROVIDERS: Internal Medicine; Admitting Provider Internal Medicine; Emergency Provider Emergency Medicine; PCP Internal Medicine; Visit Provider Hospitalist
DX: D50.9 Iron deficiency anemia, unspecified (principal); J44.1 Chronic obstructive pulmonary disease with (acute) exacerbation; E87.2 Acidosis; Z99.81 Dependence on supplemental oxygen; F10.129 Alcohol abuse with intoxication, unspecified; Y90.8 Blood alcohol level of 240 mg/100 ml or more; K22.70 Barrett's esophagus without dysplasia; F31.9 Bipolar disorder, unspecified; N18.30 Chronic kidney disease, stage 3 unspecified; I50.9 Heart failure, unspecified; K57.90 Diverticulosis of intestine, part unspecified, without perforation or abscess without bleeding; Z86.19 Personal history of other infectious and parasitic diseases; K44.9 Diaphragmatic hernia without obstruction or gangrene; Z86.718 Personal history of other venous thrombosis and embolism; Z86.711 Personal history of pulmonary embolism; E03.9 Hypothyroidism, unspecified; Z95.828 Presence of other vascular implants and grafts; Z89.021 Acquired absence of right finger(s); K29.70 Gastritis, unspecified, without bleeding; Z79.51 Long term (current) use of inhaled steroids; M54.5 Low back pain; R31.9 Hematuria, unspecified; R11.2 Nausea with vomiting, unspecified; E87.6 Hypokalemia
CPT/HCPCS: 12345; 36415; 36430; 36600; 71045; 72100; 74176; 80053; 80307; 80500; 81003; 82274; 82550; 82728; 82784; 82803; 83010; 83516; 83540; 83550; 83605; 83615; 83690; 84443; 85014; 85018; 85025; 85045; 85610; 85730; 86140; 86850; 86900; 86920; 94640; 94664; 96372; 99283; G0378; J1170; J1630; J2060; J2270; J2405; J3480; J7030; J7626; P9016

== ENCOUNTER 2020-10-02 02:30 | Inpatient (IN) | payer MEDICARE, MEDICAID, SELFPAY ==
[2020-10-02] VITALS (20 sets, daily range): BP systolic 124–182; BP diastolic 75–117; PULSE 92–118; RESP 17–26; TEMP 36.3–37.4; O2SAT 92–100; BMI 31.8
--- NOTE | 2020-10-02 02:36 | XRR_ITS ---
PROCEDURE INFORMATION: Exam: XR Chest, 1 View Exam date and time: 10/02/2020 2:47 AM Age: 45 years old Clinical indication: Chest pain; Type not specified; Additional info: Cp TECHNIQUE: Imaging protocol: XR of the chest Views: 1 view. COMPARISON: CR XR chest 1V [id number] 09/09/2020 7:04 PM FINDINGS: The heart size is normal. Pleural effusion and underlying atelectasis is seen in the left base. The right lung is clear. A hiatal hernia is noted. XR/XR chest 1V portable [id number] IMPRESSION: Combination of small pleural effusion and underlying atelectasis is seen in the left base.
--- NOTE | 2020-10-02 02:36 | ECG_ITS ---
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 Measurements Intervals [place] Rate: 84 P: 32 AR: 154 QRS: -5 QRSD: 88 T: 55 QT: 380 QTc: 449 Interpretive Statements SINUS RHYTHM LOW QRS VOLTAGE IN PRECORDIAL LEADS [QRS DEFLECTION < 1.0 mV IN CHEST LEADS] NONSPECIFIC ST & T-WAVE ABNORMALITY Compared to ECG 08/27/2020 08:50:14 Low QRS voltage now present T-wave abnormality still present Electronically Signed On 10-02-2020 17:03:26 CARPET TILE LAYER by Johnny Walsh M.D. [email or web address]
--- NOTE | 2020-10-02 02:45 | PC.NURSE ---
EKG given to ED provider
[2020-10-02 03:11] LABS: Basophils % 0.3 %; Eosinophils # 0.1 10^3/uL (0.0-0.8); Eosinophils % 0.7 %; Hematocrit 33.5 % (37.0-47.0); Hemoglobin 9.4 g/dL (11.5-15.3); Lymphocytes # 0.5 10^3/uL (0.8-4.8); Lymphocytes % 7.4 %; Mean Corpuscular HGB Conc 28.1 g/dL (30.0-36.0); Mean Corpuscular Hemoglobin 22.1 pg (28.0-34.0); Mean Corpuscular Volume 78.6 fL (81-99); Mean Platelet Volume 9.7 fL (7.4-10.4); Monocytes # 0.2 10^3/uL (0.2-0.9); Monocytes % 3.4 %; Neutrophils # 6.26 10^3/uL (1.8-7.7); Neutrophils % 87.8 %; Nucleated Red Blood Cells % 0 %; Platelet Count 203 10^3/cmm (130-400); Red Blood Count 4.26 10^6/uL (4.1-5.3); White Blood Count 7.1 10^3/uL (4.0-10.0)
[2020-10-02] MEDS: morphine 4 mg/mL SDV 1 mL IVP (03:26)
[2020-10-02] MEDS: LORazepam 2 mg/mL INJ 1 mL 1 MG IVP ×2 (03:26→04:23)
[2020-10-02 03:35] LABS: Troponin(5th) Baseline 6 ng/L (0-10)
[2020-10-02 03:37] LABS: Alanine Aminotransferase 26 U/L (0-33); Alcohol Level 32 mg/dL (0-10); Alkaline Phosphatase 470 IU/L (35-105); Anion Gap 16.1 (5-19); Aspartate Amino Transferase 51 U/L (0-32); Blood Urea Nitrogen 6 mg/dL (6-20); Calcium 7.7 mg/dL (8.5-10.5); Carbon Dioxide 27 mmol/L (22-29); Chloride 100 mmol/L (98-107); Creatine Phosphokinase 103 U/L (26-192); Globulin 4.3 g/dL (1.3-4.6); Glomerular Filtration Rate 77.2 mL/min (90-130); Glucose 99 mg/dL (65-115); Lipase 289 U/L (13-60); NT Pro B Type Natriuretic Pept 58 pg/mL (0-125); Osmolality Calculated 288 mOsm/kg (285-295); Potassium 3.1 mmol/L (3.5-5.1); Sodium 140 mmol/L (136-145); Total Bilirubin 0.7 mg/dL (0.15-1.2); Total Protein 7.3 g/dL (6.6-8.7)
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
[2020-10-02] MEDS: haloperidol inj 5 mg/mL INJ 1 mL 3 MG IVP (04:24)
--- NOTE | 2020-10-02 05:24 | CTR_ITS ---
PROCEDURE INFORMATION: Exam: CT Abdomen And Pelvis With Contrast Exam date and time: 10/02/2020 6:07 AM Age: 45 years old Clinical indication: Abdominal pain; Epigastric; Additional info: Epigastric pain TECHNIQUE: Imaging protocol: Computed tomography of the abdomen and pelvis with contrast. Radiation optimization: All CT scans at this facility use at least one of these dose optimization techniques: automated exposure control; mA and/or kV adjustment per patient size (includes targeted exams where dose is matched to clinical indication); or iterative reconstruction. Contrast material: OMNI 300; Contrast volume: 95 ml; Contrast route: INTRAVENOUS (IV); COMPARISON: CT kidney stone [id number] 09/10/2020 12:03 AM RADIATION DOSE METRICS: Total DLP (mGy-cm): 1567.01 FINDINGS: Lungs: Bibasilar compressive atelectasis adjacent to the hiatal hernia. Mediastinal space: There is a large hiatal hernia. Liver: There is fatty change involving the liver parenchyma. Gallbladder and bile ducts: Prior cholecystectomy. No biliary ductal dilatation allowing for that. Pancreas: There is peripancreatic fat stranding compatible with acute pancreatitis. No pancreatic ductal dilatation. Spleen: The spleen is homogeneous and is not enlarged. Adrenal glands: No adrenal mass. Kidneys and ureters: No hydronephrosis, nephrolithiasis, or renal mass. Stomach and bowel: Mild diverticulosis without diverticulitis. No bowel obstruction. Appendix: The appendix has a normal caliber with no wall thickening. No periappendiceal stranding. Intraperitoneal space: No ascites or pneumoperitoneum. Vasculature: There is an infrarenal inferior vena caval filter present. No abdominal aortic aneurysm. The mesenteric arteries are patent. The mesenteric, portal, and hepatic veins are patent. Lymph nodes: No pathologically enlarged lymph nodes. Urinary bladder: No urinary bladder calculus or wall thickening. Reproductive: Unremarkable as visualized. Bones/joints: Multilevel disc degeneration in the lower thoracic and in the lumbar spine. Soft tissues: Small umbilical hernia containing fat. CT/CT abdomen pelvis w con* [id number] IMPRESSION: Acute pancreatitis. COMMENTS: For patients with an IVC filter, recommend assessment for a management plan for the patient's IVC filter. If there is no established management plan, recommend referral to an interventional clinician on a nonemergent basis for evaluation. Radiation Dose CTDIVOL = (mGy): DLP = 1567.01 (mGy-cm)
[2020-10-02 05:47] LABS: Troponin 5 2HR Delta 0 ABS# (0-10)
[2020-10-02 06:05] LABS: INR 1.08 (0.8-1.2)
[2020-10-02] MEDS: iohexol 300 mg/mL 100 mL Btl IV (06:16)
[2020-10-02] MEDS: metoclopramide 5 mg/mL SDV 2 mL 10 MG IVP (07:01)
[2020-10-02] MEDS: sodium chloride 0.9% 1,000 ML 999 ML IV (07:01)
[2020-10-02] MEDS: potassium chloride oral liq 20 mEq/15 mL UDC 40 MEQ PO (07:01)
[2020-10-02] MEDS: diphenhydrAMINE 50 mg/mL SDV 1mL 25 MG IVP (07:01)
[2020-10-02 08:38] LABS: C Reactive Protein 1.1 mg/L (0.0-4.9); Magnesium 1.7 mg/dL (1.7-2.3)
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
[2020-10-02] MEDS: sodium chlor 0.45% +KCl 20 mEq 20 MEQ/1,000 ML BAG 125 MEQ IV (09:12)
[2020-10-02 09:30] LABS: Troponin 5 6HR Delta 0 ng/L (0-12)
[2020-10-02 09:32] LABS: Urine Color Yellow (Yellow)
[2020-10-02 09:33] LABS: Bilirubin Urine Neg (Negative); Blood Urine Neg (Negative); Glucose Urine UA Norm (Normal); Ketones Urine Negative (Negative); Leukocyte Esterase Urine Negative (Negative); Nitrate Urine Positive (Negative); Protein Urine Neg (Negative); Specific Gravity, Urine 1.005 (1.005-1.030); Urine Appearance SL Hazy (CLEAR); Urobilinogen Urine Norm (Negative); pH Urine 7 (5-7)
[2020-10-02 09:39] LABS: Bacteria Urine 4+ /hpf
[2020-10-02 09:40] LABS: Add Urine Culture? Yes; SARS Covid-2 Antigen Negative (Negative)
[2020-10-02] MEDS: sodium chloride 0.9% 1,000 ML 150 ML IV (10:14)
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
[2020-10-02] MEDS: benzonatate 100 mg Capsule 200 MG PO ×2 (11:29→17:46)
[2020-10-02] MEDS: atorvastatin 40 mg Tablet PO (11:29)
--- NOTE | 2020-10-02 11:34 | PC.OT ---
OT ATTEMPTED EVALUATION AT 11:30 ON 10/02, HOWEVER, PER NURSING PATIENT HAS RECEIVED ATIVAN AND CONTINUES TO BE OUT OF IT . HOLD THERAPY UNTIL TOMORROW.
[2020-10-02] MEDS: morphine 4 mg/mL SDV 1 mL 2 MG IVP ×2 (14:21→17:47)
[2020-10-02 17:00] LABS: Glucose Point of Care 102 mg/dL (70-110)
--- NOTE | 2020-10-02 17:37 | PC.NURSE ---
patient still complaining of pain at 04/11. morphine 2mg given at 162, next dose not scheduled to be due until 1820. Patient unable to take acetaminophen due to allergy. Dr. Arita notified who gave orders to give PRN dose of morphine 2mg early.
[2020-10-02] MEDS: sucralfate 1 gm Tablet PO (17:46)
[2020-10-02] MEDS: pantoprazole DR 40 mg Tablet PO (17:46)
[2020-10-02] MEDS: levETIRAcetam 500 mg Tablet 1000 MG PO (17:46)
[2020-10-02] MEDS: potassium chloride ER 20 mEq Tablet PO (17:46)
[2020-10-02] MEDS: fluticasone nasal spray 16gm Btl 1 SPRAY INTRANASAL (17:46)
[2020-10-02] MEDS: CLONazepam 0.5 mg Tablet 0.25 MG PO (19:35)
[2020-10-02 20:56] LABS: Glucose Point of Care 84 mg/dL (70-110)
[2020-10-02] MEDS: budesonide 0.5 mg/2 mL Neb 0.25 MG INHALATION (21:01)
[2020-10-02] MEDS: ipratropium-albuterol 3 mL Neb INHALATION (21:02)
[2020-10-03] VITALS (21 sets, daily range): BP systolic 125–158; BP diastolic 78–111; PULSE 88–111; RESP 16–24; TEMP 36.6–36.9; O2SAT 92–99
[2020-10-03] MEDS: HYDROmorphone 1 mg/mL INJ 1 mL IVP ×5 (02:36→21:08)
[2020-10-03] MEDS: ondansetron 2 mg/ML SDV 2 mL 4 MG IVP ×2 (02:50→11:25)
[2020-10-03] MEDS: ipratropium-albuterol 3 mL Neb INHALATION ×4 (03:13→20:01)
--- NOTE | 2020-10-03 05:04 | NUR.SHIFT ---
Patient's pain was uncontrolled by morphine. This was remedied by hydromorphine. Patient did not sleep much throughout the night. Patient only complained of nausea once.
[2020-10-03 05:27] LABS: Basophils % 0.4 %; Eosinophils # 0.2 10^3/uL (0.0-0.8); Hematocrit 31.5 % (37.0-47.0); Hemoglobin 8.7 g/dL (11.5-15.3); Lymphocytes # 0.9 10^3/uL (0.8-4.8); Lymphocytes % 13.4 %; Mean Corpuscular HGB Conc 27.6 g/dL (30.0-36.0); Mean Corpuscular Hemoglobin 22.1 pg (28.0-34.0); Mean Corpuscular Volume 80.2 fL (81-99); Mean Platelet Volume 10.1 fL (7.4-10.4); Monocytes # 0.3 10^3/uL (0.2-0.9); Monocytes % 4.9 %; Neutrophils # 5.37 10^3/uL (1.8-7.7); Nucleated Red Blood Cells % 0 %; Platelet Count 139 10^3/cmm (130-400); Red Blood Count 3.93 10^6/uL (4.1-5.3); Red Cell Distribution Width 22.5 % (12.1-15.1); White Blood Count 6.9 10^3/uL (4.0-10.0)
[2020-10-03] MEDS: benzonatate 100 mg Capsule 200 MG PO ×3 (05:29→18:06)
[2020-10-03] MEDS: levothyroxine 100 mcg Tablet 200 MCG PO (05:29)
[2020-10-03] MEDS: fluticasone nasal spray 16gm Btl 1 SPRAY INTRANASAL ×2 (05:29→18:07)
[2020-10-03] MEDS: levothyroxine 25 mcg Tablet PO ×2 (05:30→10:27)
[2020-10-03] MEDS: pantoprazole DR 40 mg Tablet PO ×2 (05:30→18:07)
[2020-10-03] MEDS: potassium chloride ER 20 mEq Tablet PO ×2 (05:30→18:07)
[2020-10-03] MEDS: sucralfate 1 gm Tablet PO ×2 (05:30→18:06)
[2020-10-03] MEDS: levETIRAcetam 500 mg Tablet 1000 MG PO ×2 (05:30→18:06)
[2020-10-03] MEDS: cholecalciferol (vitamin D3) 5,000 unit Tablet 5000 UNIT PO (05:30)
[2020-10-03] MEDS: folic acid 1 mg Tablet PO (05:30)
[2020-10-03] MEDS: thiamine 100 mg Tablet PO (05:31)
[2020-10-03 05:59] LABS: Alanine Aminotransferase 20 U/L (0-33); Albumin Level 2.9 g/dL (3.5-5.2); Alkaline Phosphatase 380 IU/L (35-105); Aspartate Amino Transferase 29 U/L (0-32); Blood Urea Nitrogen 6 mg/dL (6-20); Calcium 7.8 mg/dL (8.5-10.5); Carbon Dioxide 26 mmol/L (22-29); Chloride 100 mmol/L (98-107); Creatinine Clr Calc Pharmacy 118.5531; Glomerular Filtration Rate 107.6 mL/min (90-130); Glucose 81 mg/dL (65-115); Lipase 229 U/L (13-60); Magnesium 1.6 mg/dL (1.7-2.3); NT Pro B Type Natriuretic Pept 428 pg/mL (0-125); Osmolality Calculated 279 mOsm/kg (285-295); Phosphorus 2.5 mg/dL (2.5-4.5); Sodium 136 mmol/L (136-145); Total Bilirubin 1.7 mg/dL (0.15-1.2); Total Protein 6.9 g/dL (6.6-8.7)
[2020-10-03 06:01] LABS: Anion Gap 13.6 (5-19); Potassium 3.6 mmol/L (3.5-5.1)
[2020-10-03 06:45] LABS: Glucose Point of Care 84 mg/dL (70-110)
[2020-10-03] MEDS: multivitamin therapeutic Tablet 1 TAB PO (08:17)
[2020-10-03] MEDS: atorvastatin 40 mg Tablet PO (08:17)
[2020-10-03] MEDS: magnesium oxide 400 mg tablet PO ×2 (09:22→18:06)
[2020-10-03] MEDS: budesonide 0.5 mg/2 mL Neb 0.25 MG INHALATION ×2 (09:45→19:58)
--- NOTE | 2020-10-03 09:56 | PC.CHAP ---
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 taker off visit [] Patient/Family/Request visit [] Outpatient visit [] Follow-up visit [] Physician referral [] Code/Alert [] Routine visit [] Staff referral [] Actively dying [] Patient sleeping [] Family support [] [] Out of room [] Palliative care [] [] Receiving care in room [] Pre-surgical visit [] Trauma [] Long length of stay [] ICU visit [] Other: Relational/Emotional Strength [] Patient feels connected with others/family/visitors/staff [] Distress [] Loneliness/isolation [] Abandonment Spirituality of Patient [] Person of Angy [] Attends Spiritism of their Angy [] Believes in Prayer [] Reads Bible or Scientology materials [] There are Spiritual issues to be addressed Postdoctoral Research Associate Interventions [] Prayer [] Active listening [] Non-anxious presence [] Spiritual/emotional support [] Crisis/trauma care [] Spiritual counseling [] Bereavement support [] Provided bereavement packet [] Provided Bible/devotional materials [] Provided toy/stuffed animal, coloring book to patient or family member [] Provided Communion [] Anointing/[place] [] Salvation [x] Completed spiritual assessment [] Other: Impact on Illness or Injury [] Angry [] Fearful [] Anxious [] Often cries [] Exhaustion [] Unable to work [] Unable to attend confucianism [] Unable to walk/stand [] Unable to read [] Unable to drive [] Unable to eat/drink [] Unable to sleep [] Unable to be with family [] Patient intubated [] Other: Summary patient very tired Time spent with patient 10 [id number]
--- NOTE | 2020-10-03 10:24 | P.PN_ITS ---
Subjective Subjective: Interval history: Patient was examined this morning, she sitting up to the side of the bed, she is tolerating a clear liquid diet well, is tells me that her epigastric pain is minimal, patient's TSH is 138, patient is adamant that she takes her levothyroxine to 25, and Cytomel 25 mcg daily, she takes her medications list 30 minutes before she takes any other medications or she eats, denies headaches, blurry vision, does have mild nausea, no muscle aches or pains, alert oriented x3, ambulating Vitals/I&O/Wt Last Vital Signs Temp 98.1 F 10/03/20 07:32 Pulse 104 H 10/03/20 09:53 Resp 20 H 10/03/20 09:47 BP 132/97 10/03/20 07:32 Pulse Ox 99 10/03/20 09:47 10/02/20 10/03/20 10/03/20 22:59 06:59 14:59 Intake Total 1240 / 2290 200 / 200 Balance 1240 / 2290 200 / 200 Weight last 48 hrs Weight 81.647 kg Physical Exam Const: COMMON NORMALS: no acute distress and patient oriented x3 HENMT: COMMON NORMALS: normocephalic HEAD & SCALP: normocephalic Neck/C-Spine: COMMON NORMALS: no JVD Resp: COMMON NORMALS: normal respiratory effort, No retractions, No use of accessory muscles and clear to auscultation bilaterally AUSCULTATION: clear to auscultation bilaterally Cardio: COMMON NORMALS: no JVD, regular rate, regular rhythm, S1 normal heart sound present and S2 normal heart sound present RATE: regular rate RHYTHM: regular rhythm HEART SOUNDS: S1 normal heart sound present and S2 normal h eart sound present GI: COMMON NORMALS: Normal to inspection, nondistended, normoactive bowel sounds present, Soft to palpation, non-tender, no masses and no bruits PALPATION: Yes Soft to palpation and Yes Tenderness to palpation present (GI) (Epigastrium) Extremity: COMMON NORMALS: capillary refill normal, no clubbing, cyanosis or edema, no calf tenderness and no pedal edema Neuro: COMMON NORMALS: patient oriented x3 Psych: COMMON NORMALS: mental status grossly normal Data : 10/03/20 05:06 10/03/20 05:06 Micro: Microbiology 10/02/20 09:10 Urine Culture - Preliminary Urine,Clean Catch Gram Negative Rods 10/02/20 10:53 C.difficile Toxin B Gene (PCR) - Final Stool Routine Collection A&P Assessment and plan (1) Acute pancreatitis: -Likely alcoholic pancreatitis, like last alcohol drink was at noon yesterday -CT scan of the abdomen pelvis with contrast showed: Liver: There is fatty change involving the liver parenchyma. Gallbladder and bile ducts: Prior cholecystectomy. No biliary ductal dilatation allowing for that. Pancreas: There is peripancreatic fat stranding compatible with acute pancreatitis. No pancreatic ductal dilatation. Spleen: The spleen is homogeneous and is not enlarged. Adrenal glands: No adrenal mass. Kidneys and ureters: No hydronephrosis, nephrolithiasis, or renal mass. Stomach and bowel: Mild diverticulosis without diverticulitis. No bowel obstruction. Appendix: The appendix has a normal caliber with no wall thickening. No periappendiceal stranding. Intraperitoneal space: No ascites or pneumoperitoneum. Vasculature: There is an infrarenal inferior vena caval filter present. No abdominal aortic aneurysm. The mesenteric arteries are patent. The mesenteric, portal, and hepatic veins are patent. Lymph nodes: No pathologically enlarged lymph nodes. Urinary bladder: No urinary bladder calculus or wall thickening. Reproductive: Unremarkable as visualized. Bones/joints: Multilevel disc degeneration in the lower thoracic and in the lumbar spine. Soft tissues: Small umbilical hernia containing fat. -No gallstones seen Plan: -Currently minimal pain, morphine for pain -Continue clear liquid diet -Hold off on IV fluids, as patient has 1+ pitting edema, has significant diastolic heart failure -Serial abdominal exams -Full code -Anticoagulation for DVT prophylaxis contraindicated due to GI bleeds, SCDs Status: Acute Qualifiers: Acute pancreatitis complication: no infection or necrosis Pancreatitis type: unspecified pancreatitis type Qualified Code(s): K85.90 - Acute pancreatitis without necrosis or infection, unspecified (2) Alcohol abuse: -[facility] protocol Status: Acute (3) Myxedema coma: -Inciting factor could be her pancreatitis -She is adamant that she is taking her levothyroxine and Cytomel -Currently white blood cell count 6.9, hemoglobin 8.7, sodium 136, creatinine 0.6, CPK pending -TSH 130, T3-T4 pending -Alert oriented x3, on 2 L, no hemodynamic compromise Plan -Increase oral levothyroxine to 250 mcg, increase Cytomel to 50 mcg -Daily TSH, free T3, free T4, CPK, electrolytes -If TSH does not improve tomorrow, will consider switching over to IV levothyroxine, and stress dosing steroids Status: Acute (4) Chest pain: -Nonspecific pain, likely musculoskeletal -6-hour troponin 6, no clinically significant delta -EKG no acute ST-T wave changes -No current chest pain -Aspirin contraindicated given GI bleeds -Continue statin -Clinically monitor -Nitro as needed for chest pain -Telemetry monitoring Status: Acute (5) Normocytic anemia, not due to blood loss: Status: Acute (6) Non-pitting edema: Status: Acute (7) GERD with esophagitis: Status: Acute (8) Microcytic anemia: Status: Acute (9) COPD (chronic obstructive pulmonary disease): Status: Acute Qualifiers: COPD type: COPD with acute exacerbation Qualified Code(s): J44.1 - Chronic obstructive pulmonary disease with (acute) exacerbation (10) Seizures: Status: Chronic (11) Hepatitis C: Status: Acute (12) Bipolar 1 disorder: Status: Acute (13) Chronic kidney disease, stage III (moderate): Status: Acute Attestations Medical Necessity Statement*: Patient requires hospitalization for acute pancr eatitis, chest pain, myxedema coma, Coding Level of Care Code Acute Superintendent Transmission for [facility] [facility] Diagnoses Acute pancreatitis K85.90 Acute pancreatitis complication: no infection or necrosis Pancreatitis type: unspecified pancreatitis type Alcohol abuse F10.10 Myxedema coma E03.5 Chest pain R07.9 Normocytic anemia, not due to blood loss D64.9 Non-pitting edema R60.9 GERD with esophagitis K21.0 Microcytic anemia D50.9 COPD (chronic obstructive pulmonary disease) J44.1 COPD type: COPD with acute exacerbation Seizures R56.9 Hepatitis C B19.20 Bipolar 1 disorder F31.9 Chronic kidney disease, stage III (moderate) N18.3
[2020-10-03 10:33] LABS: Glucose Point of Care 86 mg/dL (70-110)
[2020-10-03 11:00] LABS: Creatine Phosphokinase 176 U/L (26-192)
[2020-10-03 11:05] LABS: T3 Free 2.1 PG/ML (2.0-4.4)
[2020-10-03] MEDS: CLONazepam 0.5 mg Tablet 0.25 MG PO (15:41)
--- NOTE | 2020-10-03 15:55 | PC.RESP ---
Pulmonary Rehab information sent to patient.
[2020-10-03] MEDS: FUROsemide 40 mg Tablet PO (18:06)
[2020-10-04] VITALS (22 sets, daily range): BP systolic 102–140; BP diastolic 61–100; PULSE 66–117; RESP 16–24; TEMP 36.2–36.8; O2SAT 94–99
[2020-10-04] MEDS: ondansetron 2 mg/ML SDV 2 mL 4 MG IVP (00:19)
--- NOTE | 2020-10-04 00:28 | PC.NURSE ---
REPORTED BP TO NURSE!
--- NOTE | 2020-10-04 00:49 | PC.NURSE ---
Addendum entered by NEETA Melton 10/04/20 03:50: PATIENTS BLOOD PRESSURE IMPROVED AFTER ADMINISTRATION OF PAIN MEDICATION TO 133/88. PATIENT LAYING IN BED RESTING AT 0238. Original Note: MIDNIGHT VITALS: [employer]ER NOTIFIED THIS NURSE OF PATIENTS BLOOD PRESSURE BEING 140/100 MANUALLY TAKEN. THIS NURSE REVIEWED PATIENTS FLOW SHEET AND MAR. SPOKE WITH PATIENT AND WILL REASSESS BLOOD PRESSURE AFTER NEXT PRN DOSE OF DILAUDID IS GIVEN THAT IS DUE AT 0108.
[2020-10-04] MEDS: HYDROmorphone 1 mg/mL INJ 1 mL IVP ×4 (01:18→14:43)
[2020-10-04] MEDS: ipratropium-albuterol 3 mL Neb INHALATION ×4 (02:39→20:50)
[2020-10-04 03:13] LABS: Basophils % 0.6 %; Eosinophils # 0.2 10^3/uL (0.0-0.8); Eosinophils % 2.9 %; Hematocrit 32.4 % (37.0-47.0); Hemoglobin 8.6 g/dL (11.5-15.3); Lymphocytes # 0.9 10^3/uL (0.8-4.8); Lymphocytes % 13.9 %; Mean Corpuscular HGB Conc 26.5 g/dL (30.0-36.0); Mean Corpuscular Hemoglobin 22.5 pg (28.0-34.0); Mean Corpuscular Volume 84.8 fL (81-99); Mean Platelet Volume 11.3 fL (7.4-10.4); Monocytes # 0.4 10^3/uL (0.2-0.9); Monocytes % 5.2 %; Neutrophils % 76.7 %; Nucleated Red Blood Cells % 0 %; Platelet Count 123 10^3/cmm (130-400); Red Blood Count 3.82 10^6/uL (4.1-5.3); White Blood Count 6.8 10^3/uL (4.0-10.0)
[2020-10-04] MEDS: LORazepam 2 mg/mL INJ 1 mL 1 MG IVP (04:00)
--- NOTE | 2020-10-04 04:02 | PC.NURSE ---
PATIENT UPDATE: PATIENT ON CIWA PROTOCOL Q4, 1999 ASSESSMENT WAS A 2, 0000 ASSESSMENT WAS A 4. RESPIRATORY NOTIFIED CHARGE NURSE THAT PATIENT WAS ACTING DIFFERENT FROM EARLIER IN THE SHIFT. CHARGE NURSE NOTIFIED THIS NURSE AND PRECEPTOR. PATIENT WAS SITTING ON SIDE OF BED GETTING A BREATHING TREATMENT WITH RESPIRATORY PRESENT. CHARGE NURSE AND PRECEPTOR OVERSEEN THIS NURSE DOING CIWA ASSESSMENT. THIS ASSESSMENT WAS A 14. THIS NURSE CALLED DR. KEARNEY BECAUSE THERE WERE NO MEDICATIONS LINKED TO THE CIWA ASSESSMENT PROTOCOL YET THERE WAS MENTION OF CIWA PROTOCOL IN THE PROGRESS NOTES BY DR. BLUM ON 10/02/2020. PUT IN MEDICATION ORDERS TO GO WITH CIWA ASSESSMENT. CHARGE NURSE ADMINISTERED ATIVAN PER PROTOCOL, THIS NURSE AND PRECEPTOR WILL REASSESS PATIENT FOR POST MEDICATION ASSESSMENT.
[2020-10-04 04:10] LABS: Alanine Aminotransferase 21 U/L (0-33); Albumin Level 3.2 g/dL (3.5-5.2); Alkaline Phosphatase 363 IU/L (35-105); Anion Gap 13.7 (5-19); Aspartate Amino Transferase 25 U/L (0-32); Blood Urea Nitrogen 6 mg/dL (6-20); Calcium 7.7 mg/dL (8.5-10.5); Carbon Dioxide 28 mmol/L (22-29); Chloride 95 mmol/L (98-107); Creatinine Clr Calc Pharmacy 101.6169; Globulin 4.4 g/dL (1.3-4.6); Glomerular Filtration Rate 90.1 mL/min (90-130); Glucose 86 mg/dL (65-115); Magnesium 1.5 mg/dL (1.7-2.3); Osmolality Calculated 273 mOsm/kg (285-295); Phosphorus 3.6 mg/dL (2.5-4.5); Potassium 3.7 mmol/L (3.5-5.1); Sodium 133 mmol/L (136-145); Total Bilirubin 1.3 mg/dL (0.15-1.2); Total Protein 7.6 g/dL (6.6-8.7)
[2020-10-04 04:13] LABS: Creatine Phosphokinase 169 U/L (26-192); T3 Free 4.4 PG/ML (2.0-4.4); Thyroid Stimulating Hormone 45.05 uIU/mL (0.27-4.20)
[2020-10-04] MEDS: cholecalciferol (vitamin D3) 5,000 unit Tablet 5000 UNIT PO (05:48)
[2020-10-04] MEDS: fluticasone nasal spray 16gm Btl 1 SPRAY INTRANASAL ×2 (05:48→18:16)
[2020-10-04] MEDS: sucralfate 1 gm Tablet PO ×2 (05:49→18:14)
[2020-10-04] MEDS: pantoprazole DR 40 mg Tablet PO ×2 (05:49→18:13)
[2020-10-04] MEDS: potassium chloride ER 20 mEq Tablet PO ×2 (05:49→18:14)
[2020-10-04] MEDS: levETIRAcetam 500 mg Tablet 1000 MG PO ×2 (05:49→18:13)
[2020-10-04] MEDS: benzonatate 100 mg Capsule 200 MG PO ×3 (05:49→18:13)
[2020-10-04] MEDS: folic acid 1 mg Tablet PO ×2 (05:49→08:30)
[2020-10-04] MEDS: thiamine 100 mg Tablet PO ×2 (05:49→08:30)
[2020-10-04] MEDS: FUROsemide 40 mg Tablet PO ×2 (05:50→18:14)
[2020-10-04] MEDS: levothyroxine 100 mcg Tablet 200 MCG PO (05:50)
[2020-10-04] MEDS: levothyroxine 50 mcg Tablet PO (05:50)
[2020-10-04] MEDS: magnesium oxide 400 mg tablet PO ×2 (08:29→18:13)
[2020-10-04] MEDS: multivitamin therapeutic Tablet 1 TAB PO ×2 (08:29)
[2020-10-04] MEDS: atorvastatin 40 mg Tablet PO (08:29)
[2020-10-04] MEDS: budesonide 0.5 mg/2 mL Neb 0.25 MG INHALATION ×2 (08:50→20:50)
--- NOTE | 2020-10-04 09:38 | PC.CHAP ---
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 millroom supervisor visit [] Patient/Family/Request visit [] Outpatient visit [] Follow-up visit [] Physician referral [] Code/Alert [x] Routine visit [] Staff referral [] Actively dying [] Patient sleeping [] Family support [] [] Out of room [] Palliative care [] [] Receiving care in room [] Pre-surgical visit [] Trauma [] Long length of stay [] ICU visit [] Other: Relational/Emotional Strength [x] Patient feels connected with others/family/visitors/staff [] Distress [] Loneliness/isolation [] Abandonment Spirituality of Patient [x] Person of Angy [] Attends Voodoo of their Angy [] Believes in Prayer [] Reads Bible or Anabaptism materials [] There are Spiritual issues to be addressed Blade Grinder Interventions [x] Prayer [x] Active listening [] Non-anxious presence [] Spiritual/emotional support [] Crisis/trauma care [] Spiritual counseling [] Bereavement support [] Provided bereavement packet [] Provided Bible/devotional materials [] Provided toy/stuffed animal, coloring book to patient or family member [] Provided Communion [] Anointing/[place] [] Salvation [x] Completed spiritual assessment [] Other: Impact on Illness or Injury [] Angry [] Fearful [] Anxious [] Often cries [] Exhaustion [] Unable to work [] Unable to attend taoism [] Unable to walk/stand [] Unable to read [] Unable to drive [] Unable to eat/drink [] Unable to sleep [] Unable to be with family [] Patient intubated [] Other: Summary patient still not feeling i\o\up tp lamont Time spent with patient 15 min
--- NOTE | 2020-10-04 09:53 | PM.PN ---
Subjective Subjective: Interval history: Patient denies being short of breath or having chest pain. Does report epigastric area discomfort and frequent episodes of heartburn . Reports that she stopped drinking alcohol 5 to 6 weeks ago although it is somewhat hard to believe. She is hypomagnesemic and shows evidence of thrombocytopenia. Her bilirubin and alk phos are coming down Vitals/I&O/Wt Last Vital Signs Temp 97.6 F 10/04/20 07:05 Pulse 102 H 10/04/20 08:58 Resp 17 10/04/20 08:58 BP 110/73 10/04/20 07:05 Pulse Ox 98 10/04/20 08:58 10/03/20 10/04/20 10/04/20 22:59 06:59 14:59 Intake Total 480 / 1160 360 / 360 Output Total 600 / 600 Balance 480 / 1160 -600 / 560 360 / 360 Physical Exam Const: COMMON NORMALS: no acute distress and patient oriented x3 Resp: COMMON NORMALS: normal respiratory effort and clear to auscultation bilaterally AUSCULTATION: clear to auscultation bilaterally Cardio: COMMON NORMALS: regular rate, regular rhythm and S2 normal heart sound present RATE: regular rate RHYTHM: regular rhythm HEART SOUNDS: S2 normal heart sound present OTHER: 3+ lower extremity edema bilaterally GI: COMMON NORMALS: Normal to inspection, nondistended, normoactive bowel sounds present and Soft to palpation PALPATION: Yes Soft to palpation OTHER: Minimally tender at epigastric area Neuro: COMMON NORMALS: patient oriented x3 and no focal motor deficits Data : 10/04/20 02:28 10/04/20 02:28 Micro: Microbiology 10/02/20 09:10 Urine Culture - Final Urine,Clean Catch Klebsiella pneumoniae A&P Assessment and plan (1) Acute pancreatitis: -Likely alcoholic pancreatitis, like last alcohol drink was at noon yesterday -CT scan of the abdomen pelvis with contrast showed: Liver: There is fatty change involving the liver parenchyma. Gallbladder and bile ducts: Prior cholecystectomy. No biliary ductal dilatation allowing for that. Pancreas: There is peripancreatic fat stranding compatible with acute pancreatitis. No pancreatic ductal dilatation. Spleen: The spleen is homogeneous and is not enlarged. Adrenal glands: No adrenal mass. Kidneys and ureters: No hydronephrosis, nephrolithiasis, or renal mass. Stomach and bowel: Mild diverticulosis without diverticulitis. No bowel obstruction. Appendix: The appendix has a normal caliber with no wall thickening. No periappendiceal stranding. Intraperitoneal space: No ascites or pneumoperitoneum. Vasculature: There is an infrarenal inferior vena caval filter present. No abdominal aortic aneurysm. The mesenteric arteries are patent. The mesenteric, portal, and hepatic veins are patent. Lymph nodes: No pathologically enlarged lymph nodes. Urinary bladder: No urinary bladder calculus or wall thickening. Reproductive: Unremarkable as visualized. Bones/joints: Multilevel disc degeneration in the lower thoracic and in the lumbar spine. Soft tissues: Small umbilical hernia containing fat. -No gallstones seen Plan: -Currently minimal pain, morphine for pain -Continue clear liquid diet -Hold off on IV fluids, as patient has 1+ pitting edema, has significant diastolic heart failure -Serial abdominal exams -Full code -Anticoagulation for DVT prophylaxis contraindicated due to GI bleeds, SCDs Status: Acute Qualifiers: Acute pancreatitis complication: no infection or necrosis Pancreatitis type: unspecified pancreatitis type Qualified Code(s): K85.90 - Acute pancreatitis without necrosis or infection, unspecified (2) Alcohol abuse: -[facility] protocol Status: Acute (3) Myxedema coma: -Inciting factor could be her pancreatitis -She is adamant that she is taking her levothyroxine and Cytomel -Currently white blood cell count 6.9, hemoglobin 8.7, sodium 136, creatinine 0.6, CPK pending -TSH 130, T3-T4 pending -Alert oriented x3, on 2 L, no hemodynamic compromise Plan -Increase oral levothyroxine to 250 mcg, increase Cytomel to 50 mcg -Daily TSH, free T3, free T4, CPK, electrolytes -If TSH does not improve tomorrow, will consider switching over to IV levothyroxine, and stress dosing steroids Status: Acute (4) Chest pain: -Nonspecific pain, likely musculoskeletal -6-hour troponin 6, no clinically significant delta -EKG no acute ST-T wave changes -No current chest pain -Aspirin contraindicated given GI bleeds -Continue statin -Clinically monitor -Nitro as needed for chest pain -Telemetry monitoring Status: Acute (5) Normocytic anemia, not due to blood loss: Status: Acute (6) Non-pitting edema: Status: Acute (7) GERD with esophagitis: Status: Acute (8) Microcytic anemia: Status: Acute (9) COPD (chronic obstructive pulmonary disease): Status: Acute Qualifiers: COPD type: COPD with acute exacerbation Qualified Code(s): J44.1 - Chronic obstructive pulmonary disease with (acute) exacerbation (10) Seizures: Status: Chronic (11) Hepatitis C: Status: Acute (12) Bipolar 1 disorder: Status: Acute (13) Chronic kidney disease, stage III (moderate): Status: Acute Additional A&P Information PLAN: Continue current monitoring and treatment. Replete magnesium Monitor on telemetry Attestations Medical Necessity Statement*: Patient with acute pancreatitis requires close inpatient monitoring and treatment. Time Spent in Patient Care: 16 - 35 minutes Coding Level of Care Code Acute Automatic Lathe Setter for [facility] Fwd Diagnoses Acute pancreatitis K85.90 Acute pancreatitis complication: no infection or necrosis Pancreatitis type: unspecified pancreatitis type Alcohol abuse F10.10 Myxedema coma E03.5 Chest pain R07.9 Normocytic anemia, not due to blood loss D64.9 Non-pitting edema R60.9 GERD with esophagitis K21.0 Microcytic anemia D50.9 COPD (chronic obstructive pulmonary disease) J44.1 COPD type: COPD with acute exacerbation Seizures R56.9 Hepatitis C B19.20 Bipolar 1 disorder F31.9 Chronic kidney disease, stage III (moderate) N18.3
[2020-10-04] MEDS: magnesium sulfate premix 2 GM/50 ML PIGGYBACK IV (10:17)
[2020-10-04] MEDS: levofloxacin-dextrose 5 % 750 MG/150 ML PREMIX 100 MG IV (18:14)
[2020-10-04] MEDS: chlordiazePOXIDE 25 mg Capsule 50 MG PO (22:27)
[2020-10-04] MEDS: LORazepam 2 mg Tablet PO (22:27)
--- NOTE | 2020-10-04 23:28 | CTR_ITS ---
PROCEDURE INFORMATION: Exam: CT Head Without Contrast Exam date and time: 10/04/2020 11:49 PM Age: 45 years old Clinical indication: Injury or trauma; Blunt trauma (contusions or hematomas); Patient HX: Fall today. Sustained a blow to forehead with bruising. ; Additional info: Patient stated fell and hit head notable bruise TECHNIQUE: Imaging protocol: Computed tomography of the head without contrast. Radiation optimization: All CT scans at this facility use at least one of these dose optimization techniques: automated exposure control; mA and/or kV adjustment per patient size (includes targeted exams where dose is matched to clinical indication); or iterative reconstruction. COMPARISON: CT head wo con* [id number] 02/19/2020 6:48 PM RADIATION DOSE METRICS: Total DLP (mGy-cm): 884.07 FINDINGS: Brain: Normal. No hemorrhage. Unremarkable white matter. No mass effect. Cerebral ventricles: No ventriculomegaly. Bones/joints: Unremarkable. No acute fracture. Paranasal sinuses: Paranasal sinus partial opacification. Mastoid air cells: Visualized mastoid air cells are well aerated. Soft tissues: Unremarkable. CT/CT head wo con* [id number] IMPRESSION: Negative for intracranial hemorrhage or mass effect Radiation Dose CTDIVOL = (mGy): DLP = 884.07 (mGy-cm)
[2020-10-05] VITALS (15 sets, daily range): BP systolic 105–159; BP diastolic 67–109; PULSE 90–122; RESP 16–25; TEMP 36.5–37.1; O2SAT 91–99
[2020-10-05] MEDS: ipratropium-albuterol 3 mL Neb INHALATION ×4 (03:36→20:58)
[2020-10-05] MEDS: ondansetron 4 MG Tablet PO ×2 (03:40→16:58)
[2020-10-05 06:06] LABS: Basophils % 0.5 %; Eosinophils # 0.2 10^3/uL (0.0-0.8); Eosinophils % 3.7 %; Hematocrit 26.2 % (37.0-47.0); Hemoglobin 7.4 g/dL (11.5-15.3); Lymphocytes # 0.7 10^3/uL (0.8-4.8); Lymphocytes % 17.6 %; Mean Corpuscular HGB Conc 28.2 g/dL (30.0-36.0); Mean Corpuscular Hemoglobin 22.4 pg (28.0-34.0); Mean Corpuscular Volume 79.2 fL (81-99); Mean Platelet Volume 11.3 fL (7.4-10.4); Monocytes # 0.4 10^3/uL (0.2-0.9); Monocytes % 10.4 %; Neutrophils # 2.73 10^3/uL (1.8-7.7); Neutrophils % 67.6 %; Nucleated Red Blood Cells % 0 %; Platelet Count 126 10^3/cmm (130-400); Red Blood Count 3.31 10^6/uL (4.1-5.3); Red Cell Distribution Width 23.3 % (12.1-15.1)
--- NOTE | 2020-10-05 06:19 | PC.NURSE ---
Pt lost ultrasound guided IV early in the shift. Staff was unable to obtain regular IV access. ER was called a multiple of 5 times this shift to try to access IV using ultrasound and all trained staff was tied up all channing home. ICU was called once and no one was trained. Dr. Archuleta was notified of inability to gain access while he was present on floor and verbalized and order for a PICC line.
[2020-10-05 06:24] LABS: Alanine Aminotransferase 18 U/L (0-33); Albumin Level 2.9 g/dL (3.5-5.2); Alkaline Phosphatase 305 IU/L (35-105); Aspartate Amino Transferase 22 U/L (0-32); Blood Urea Nitrogen 3 mg/dL (6-20); Calcium 7.5 mg/dL (8.5-10.5); Carbon Dioxide 33 mmol/L (22-29); Chloride 97 mmol/L (98-107); Creatinine Clr Calc Pharmacy 101.6169; Glomerular Filtration Rate 90.1 mL/min (90-130); Glucose 94 mg/dL (65-115); Magnesium 1.6 mg/dL (1.7-2.3); Osmolality Calculated 282 mOsm/kg (285-295); Phosphorus 4.3 mg/dL (2.5-4.5); Sodium 138 mmol/L (136-145); Total Bilirubin 0.9 mg/dL (0.15-1.2); Total Protein 6.9 g/dL (6.6-8.7)
[2020-10-05] MEDS: benzonatate 100 mg Capsule 200 MG PO ×3 (06:32→17:05)
[2020-10-05] MEDS: potassium chloride ER 20 mEq Tablet PO ×2 (06:32→17:05)
[2020-10-05] MEDS: cholecalciferol (vitamin D3) 5,000 unit Tablet 5000 UNIT PO (06:32)
[2020-10-05] MEDS: sucralfate 1 gm Tablet PO ×2 (06:32→17:05)
[2020-10-05] MEDS: levETIRAcetam 500 mg Tablet 1000 MG PO ×2 (06:32→17:05)
[2020-10-05] MEDS: FUROsemide 40 mg Tablet PO ×2 (06:32→17:06)
[2020-10-05] MEDS: levothyroxine 50 mcg Tablet PO (06:32)
[2020-10-05] MEDS: pantoprazole DR 40 mg Tablet PO ×2 (06:32→17:05)
[2020-10-05] MEDS: levothyroxine 100 mcg Tablet 200 MCG PO (06:32)
[2020-10-05] MEDS: fluticasone nasal spray 16gm Btl 1 SPRAY INTRANASAL ×2 (06:33→17:05)
[2020-10-05] MEDS: folic acid 1 mg Tablet PO ×2 (06:42→08:23)
[2020-10-05] MEDS: thiamine 100 mg Tablet PO ×2 (06:44→08:22)
--- NOTE | 2020-10-05 07:10 | XR_ITS ---
WS: [id number] PORTABLE CHEST HISTORY: cough COMPARISON: 10/02/2020 Quality is limited by body habitus and poor inspiration. Suspect a small amount of fluid overload as compared to the prior study. No pneumonia. No pleural eff usion or pneumothorax. Cardiac size: Mildly enlarged cardiac silhouette. Mediastinum/Aorta: No mediastinal widening. Small hiatal hernia. No osseous abnormality seen. XR/XR chest 1V portable [id number] IMPRESSION: 1. Suspect a small amount of interstitial edema developed since the prior stud y. 2. Small hiatal hernia.
[2020-10-05 07:12] LABS: Creatine Phosphokinase 181 U/L (26-192); T3 Free 4.8 PG/ML (2.0-4.4); Thyroid Stimulating Hormone 15.48 uIU/mL (0.27-4.20)
--- NOTE | 2020-10-05 07:16 | PC.NURSE ---
THIS NURSE WENT INTO ROOM 266 TO DO SHIFT ASSESSMENT APPROXIMATELY AT 1999 AND PATIENT STATED I TRIPPED ON MY OXYGEN HOSE AND FELL AND HIT MY HEAD. PATIENT ALSO STATED A CANOPY STRINGER ENTERED THE ROOM SEEN THAT I FELL AND SAID LET ME GO GET SOME HELP AND NEVER RETURNED. THIS NURSE NOTICED A BRUISE ON FOREHEAD THAT WAS NOT VISIBLE ON PREVIOUS NOC SHIFT THIS NURSE CARED FOR PATIENT BOTH NIGHTS. UPON REVIEWING CHART IT WAS FOUND THAT NO DOCUMENTATION HAD BEEN DONE. THIS NURSE NOTIFIED [facility] CHARGE NURSE. THIS NURSE CALLED THE [facility] HOSPITALIST AND HE ORDERED A CT C/O CONTRAST. PHYSICIAN CAME TO FLOOR LATER AND LOOKED AT PATIENT.
--- NOTE | 2020-10-05 07:21 | P.PN_ITS ---
Subjective Subjective: Interval history: Patient reports persistent dry cough and nasal congestion. It was noted that patient had barium swallow study performed approximately 3 months ago showing penetration with thin liquids. Patient confirms that she does aspirate a lot. She has soda drink at her bedside that she is drinking. She was started on antibiotic yesterday. She denies chest pain but does report diffuse upper abdominal discomfort especially when she coughs. Her hemoglobin is down to 7.4 and platelets slightly improved to 126. On long exam patient moves air well and does not have any wheezing. Vitals/I&O/Wt Last Vital Signs Temp 98.4 F 10/05/20 03:35 Pulse 104 H 10/05/20 05:36 Resp 17 10/05/20 03:36 BP 112/75 10/05/20 03:35 Pulse Ox 96 10/05/20 03:36 10/04/20 10/05/20 10/05/20 22:59 06:59 14:59 Intake Total 196.667 / 726.667 Output Total 1200 / 2200 Balance 196.667 / -273.333 -1200 / -1473.333 Physical Exam Const: COMMON NORMALS: no acute distress and patient oriented x3 Resp: COMMON NORMALS: normal respiratory effort and clear to auscultation bilaterally AUSCULTATION: clear to auscultation bilaterally Cardio: COMMON NORMALS: regular rate, regular rhythm and S2 normal heart sound present RATE: regular rate RHYTHM: regular rhythm HEART SOUNDS: S2 normal heart sound present OTHER: 3+ lower extremity edema bilaterally GI: COMMON NORMALS: Normal to inspection, nondistended, normoactive bowel sounds present and Soft to palpation PALPATION: Yes Soft to palpation OTHER: Minimally tender at epigastric area Neuro: COMMON NORMALS: patient oriented x3 and no focal motor deficits Data : 10/05/20 05:19 10/05/20 05:19 Micro: Microbiology 10/02/20 09:10 Urine Culture - Final Urine,Clean Catch Klebsiella pneumoniae A&P Assessment and plan (1) Acute pancreatitis: -Likely alcoholic pancreatitis, like last alcohol drink was at noon yesterday -CT scan of the abdomen pelvis with contrast showed: Liver: There is fatty change involving the liver parenchyma. Gallbladder and bile ducts: Prior cholecystectomy. No biliary ductal dilatation allowing for that. Pancreas: There is peripancreatic fat stranding compatible with acute pancreatitis. No pancreatic ductal dilatation. Spleen: The spleen is homogeneous and is not enlarged. Adrenal glands: No adrenal mass. Kidneys and ureters: No hydronephrosis, nephrolithiasis, or renal mass. Stomach and bowel: Mild diverticulosis without diverticulitis. No bowel obstruction. Appendix: The appendix has a normal caliber with no wall thickening. No periappendiceal stranding. Intraperitoneal space: No ascites or pneumoperitoneum. Vasculature: There is an infrarenal inferior vena caval filter present. No abdominal aortic aneurysm. The mesenteric arteries are patent. The mesenteric, portal, and hepatic veins are patent. Lymph nodes: No pathologically enlarged lymph nodes. Urinary bladder: No urinary bladder calculus or wall thickening. Reproductive: Unremarkable as visualized. Bones/joints: Multilevel disc degeneration in the lower thoracic and in the lumbar spine. Soft tissues: Small umbilical hernia containing fat. -No gallstones seen Plan: -Currently minimal pain, morphine for pain -Continue clear liquid diet -Hold off on IV fluids, as patient has 1+ pitting edema, has significant diastolic heart failure -Serial abdominal exams -Full code -Anticoagulation for DVT prophylaxis contraindicated due to GI bleeds, SCDs Status: Acute Qualifiers: Acute pancreatitis complication: no infection or necrosis Pancreatitis type: unspecified pancreatitis type Qualified Code(s): K85.90 - Acute pancreatitis without necrosis or infection, unspecified (2) Alcohol abuse: -[facility] protocol Status: Acute (3) Myxedema coma: -Inciting factor could be her pancreatitis -She is adamant that she is taking her levothyroxine and Cytomel -Currently white blood cell count 6.9, hemoglobin 8.7, sodium 136, creatinine 0.6, CPK pending -TSH 130, T3-T4 pending -Alert oriented x3, on 2 L, no hemodynamic compromise Plan -Increase oral levothyroxine to 250 mcg, increase Cytomel to 50 mcg -Daily TSH, free T3, free T4, CPK, electrolytes -If TSH does not improve tomorrow, will consider switching over to IV levothyroxine, and stress dosing steroids Status: Acute (4) Chest pain: -Nonspecific pain, likely musculoskeletal -6-hour troponin 6, no clinically significant delta -EKG no acute ST-T wave changes -No current chest pain -Aspirin contraindicated given GI bleeds -Continue statin -Clinically monitor -Nitro as needed for chest pain -Telemetry monitoring Status: Acute (5) Normocytic anemia, not due to blood loss: Status: Acute (6) Non-pitting edema: Status: Acute (7) GERD with esophagitis: Status: Acute (8) Microcytic anemia: Status: Acute (9) COPD (chronic obstructive pulmonary disease): Status: Acute Qualifiers: COPD type: COPD with acute exacerbation Qualified Code(s): J44.1 - Chronic obstructive pulmonary disease with (acute) exacerbation (10) Seizures: Status: Chronic (11) Hepatitis C: Status: Acute (12) Bipolar 1 disorder: Status: Acute (13) Chronic kidney disease, stage III (moderate): Status: Acute Additional A&P Information Acute bronchitis. Aspiration pneumonitis/bronchitis highly suspected. Postnasal drip likely plays a role PLAN: Continue current monitoring and treatment including Levaquin. We will request speech therapy evaluation and will change her diet to thickened liquids. Repeat chest x-ray. Replete potassium Check BNP and lipase tomorrow and if continues to improve we will likely be able to dismiss patient home tomorrow. 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
[2020-10-05] MEDS: magnesium oxide 400 mg tablet PO ×3 (08:22→17:06)
[2020-10-05] MEDS: multivitamin therapeutic Tablet 1 TAB PO (08:22)
[2020-10-05] MEDS: atorvastatin 40 mg Tablet PO (08:23)
[2020-10-05] MEDS: LORazepam 2 mg Tablet PO ×2 (08:23→17:06)
[2020-10-05] MEDS: budesonide 0.5 mg/2 mL Neb 0.25 MG INHALATION ×2 (08:41→20:59)
[2020-10-05] MEDS: potassium chloride ER 20 mEq Tablet 40 MEQ PO (12:03)
[2020-10-05] MEDS: CLONazepam 0.5 mg Tablet 0.25 MG PO (12:03)
[2020-10-05] MEDS: tizanidine 4 mg Tablet 2 MG PO (21:44)
[2020-10-06] VITALS (17 sets, daily range): BP systolic 91–126; BP diastolic 54–85; PULSE 60–120; RESP 16–21; TEMP 36.1–36.9; O2SAT 92–98
[2020-10-06] MEDS: ipratropium-albuterol 3 mL Neb INHALATION ×4 (02:44→20:19)
[2020-10-06] MEDS: levETIRAcetam 500 mg Tablet 1000 MG PO ×2 (05:26→17:28)
[2020-10-06] MEDS: levoFLOXacin 750 mg Tablet PO (05:27)
[2020-10-06] MEDS: pantoprazole DR 40 mg Tablet PO ×2 (05:27→17:29)
[2020-10-06] MEDS: cholecalciferol (vitamin D3) 5,000 unit Tablet 5000 UNIT PO (05:27)
[2020-10-06] MEDS: levothyroxine 50 mcg Tablet PO (05:27)
[2020-10-06] MEDS: benzonatate 100 mg Capsule 200 MG PO ×3 (05:27→17:29)
[2020-10-06] MEDS: thiamine 100 mg Tablet PO ×2 (05:27→09:31)
[2020-10-06] MEDS: folic acid 1 mg Tablet PO ×2 (05:27→09:31)
[2020-10-06] MEDS: potassium chloride ER 20 mEq Tablet PO ×2 (05:27→17:29)
[2020-10-06] MEDS: sucralfate 1 gm Tablet PO ×2 (05:27→17:28)
[2020-10-06] MEDS: FUROsemide 40 mg Tablet PO ×2 (05:27→17:29)
[2020-10-06] MEDS: levothyroxine 100 mcg Tablet 200 MCG PO (05:29)
[2020-10-06] MEDS: fluticasone nasal spray 16gm Btl 1 SPRAY INTRANASAL ×2 (05:29→17:29)
[2020-10-06 06:50] LABS: Basophils % 0.6 %; Eosinophils # 0.1 10^3/uL (0.0-0.8); Eosinophils % 3.7 %; Hematocrit 27.9 % (37.0-47.0); Hemoglobin 7.7 g/dL (11.5-15.3); Lymphocytes % 29.4 %; Mean Corpuscular HGB Conc 27.6 g/dL (30.0-36.0); Mean Corpuscular Hemoglobin 22.5 pg (28.0-34.0); Mean Corpuscular Volume 81.6 fL (81-99); Mean Platelet Volume 10.4 fL (7.4-10.4); Monocytes # 0.6 10^3/uL (0.2-0.9); Monocytes % 19.3 %; Neutrophils # 1.51 10^3/uL (1.8-7.7); Neutrophils % 46.4 %; Nucleated Red Blood Cells % 0 %; Platelet Count 109 10^3/cmm (130-400); Red Blood Count 3.42 10^6/uL (4.1-5.3); Red Cell Distribution Width 24.5 % (12.1-15.1); White Blood Count 3.3 10^3/uL (4.0-10.0)
[2020-10-06 07:12] LABS: Alanine Aminotransferase 17 U/L (0-33); Albumin Level 2.9 g/dL (3.5-5.2); Alkaline Phosphatase 275 IU/L (35-105); Anion Gap 11.6 (5-19); Aspartate Amino Transferase 24 U/L (0-32); Blood Urea Nitrogen 4 mg/dL (6-20); Calcium 7.8 mg/dL (8.5-10.5); Carbon Dioxide 33 mmol/L (22-29); Chloride 96 mmol/L (98-107); Globulin 4.1 g/dL (1.3-4.6); Glomerular Filtration Rate 67.4 mL/min (90-130); Glucose 106 mg/dL (65-115); Magnesium 1.6 mg/dL (1.7-2.3); Osmolality Calculated 281 mOsm/kg (285-295); Potassium 3.6 mmol/L (3.5-5.1); Sodium 137 mmol/L (136-145); Total Bilirubin 0.6 mg/dL (0.15-1.2)
[2020-10-06 07:29] LABS: Slide Review Slide Review Perform
[2020-10-06 07:38] LABS: NT Pro B Type Natriuretic Pept 297 pg/mL (0-125); T3 Free 5.6 PG/ML (2.0-4.4); Thyroid Stimulating Hormone 6.48 uIU/mL (0.27-4.20)
[2020-10-06 07:53] LABS: Creatine Phosphokinase 165 U/L (26-192); Lipase 135 U/L (13-60)
--- NOTE | 2020-10-06 08:06 | PC.NURSE ---
patient stated that she was fine on the side of the bed. she does not want to sit in the chair
[2020-10-06] MEDS: budesonide 0.5 mg/2 mL Neb 0.25 MG INHALATION ×2 (08:53→20:18)
[2020-10-06 09:29] LABS: T4 Total 2.9 mcg/dL (5.1-11.9)
[2020-10-06] MEDS: atorvastatin 40 mg Tablet PO (09:30)
[2020-10-06] MEDS: magnesium oxide 400 mg tablet PO ×2 (09:30→17:29)
[2020-10-06] MEDS: multivitamin therapeutic Tablet 1 TAB PO (09:31)
--- NOTE | 2020-10-06 09:48 | PM.PN ---
Subjective Subjective: Interval history: Patient continues to have cough and reports that now she appears to be producing some phlegm. Reports that her alternating feeling of cold and warm she had yesterday resolved. Overall reports feeling better compared to yesterday. Denies shortness of breath or chest pain. Denies abdominal pain. Vitals/I&O/Wt Last Vital Signs Temp 97.0 F L 10/06/20 08:00 Pulse 103 H 10/06/20 08:56 Resp 18 10/06/20 08:55 BP 126/85 10/06/20 08:00 Pulse Ox 98 10/06/20 08:55 10/05/20 10/06/20 10/06/20 22:59 06:59 14:59 Intake Total 240 / 600 Balance 240 / 600 Physical Exam Const: COMMON NORMALS: no acute distress and patient oriented x3 Resp: COMMON NORMALS: normal respiratory effort and clear to auscultation bilaterally (But overall decreased air movement throughout) AUSCULTATION: clear to auscultation bilaterally (But overall decreased air movement throughout) Cardio: COMMON NORMALS: regular rate, regular rhythm and S2 normal heart sound present RATE: regular rate RHYTHM: regular rhythm HEART SOUNDS: S2 normal heart sound present OTHER: 2+ lower extremity edema bilaterally GI: COMMON NORMALS: Normal to inspection, nondistended, normoactive bowel sounds present and Soft to palpation PALPATION: Yes Soft to palpation OTHER: Minimally tender at epigastric area Neuro: COMMON NORMALS: patient oriented x3 and no focal motor deficits Data : 10/06/20 06:02 10/06/20 06:02 A&P Assessment and plan (1) Acute pancreatitis: -Likely alcoholic pancreatitis, like last alcohol drink was at noon yesterday -CT scan of the abdomen pelvis with contrast showed: Liver: There is fatty change involving the liver parenchyma. Gallbladder and bile ducts: Prior cholecystectomy. No biliary ductal dilatation allowing for that. Pancreas: There is peripancreatic fat stranding compatible with acute pancreatitis. No pancreatic ductal dilatation. Spleen: The spleen is homogeneous and is not enlarged. Adrenal glands: No adrenal mass. Kidneys and ureters: No hydronephrosis, nephrolithiasis, or renal mass. Stomach and bowel: Mild diverticulosis without diverticulitis. No bowel obstruction. Appendix: The appendix has a normal caliber with no wall thickening. No periappendiceal stranding. Intraperitoneal space: No ascites or pneumoperitoneum. Vasculature: There is an infrarenal inferior vena caval filter present. No abdominal aortic aneurysm. The mesenteric arteries are patent. The mesenteric, portal, and hepatic veins are patent. Lymph nodes: No pathologically enlarged lymph nodes. Urinary bladder: No urinary bladder calculus or wall thickening. Reproductive: Unremarkable as visualized. Bones/joints: Multilevel disc degeneration in the lower thoracic and in the lumbar spine. Soft tissues: Small umbilical hernia containing fat. -No gallstones seen Plan: -Currently minimal pain, morphine for pain -Continue clear liquid diet -Hold off on IV fluids, as patient has 1+ pitting edema, has significant diastolic heart failure -Serial abdominal exams -Full code -Anticoagulation for DVT prophylaxis contraindicated due to GI bleeds, SCDs Status: Acute Qualifiers: Acute pancreatitis complication: no infection or necrosis Pancreatitis type: unspecified pancreatitis type Qualified Code(s): K85.90 - Acute pancreatitis without necrosis or infection, unspecified (2) Alcohol abuse: -[facility] protocol Status: Acute (3) Myxedema coma: -Inciting factor could be her pancreatitis -She is adamant that she is taking her levothyroxine and Cytomel -Currently white blood cell count 6.9, hemoglobin 8.7, sodium 136, creatinine 0.6, CPK pending -TSH 130, T3-T4 pending -Alert oriented x3, on 2 L, no hemodynamic compromise Plan -Increase oral levothyroxine to 250 mcg, increase Cytomel to 50 mcg -Daily TSH, free T3, free T4, CPK, electrolytes -If TSH does not improve tomorrow, will consider switching over to IV levothyroxine, and stress dosing steroids Status: Acute (4) Chest pain: -Nonspecific pain, likely musculoskeletal -6-hour troponin 6, no clinically significant delta -EKG no acute ST-T wave changes -No current chest pain -Aspirin contraindicated given GI bleeds -Continue statin -Clinically monitor -Nitro as needed for chest pain -Telemetry monitoring Status: Acute (5) Normocytic anemia, not due to blood loss: Status: Acute (6) Non-pitting edema: Status: Acute (7) GERD with esophagitis: Status: Acute (8) Microcytic anemia: Status: Acute (9) COPD (chronic obstructive pulmonary disease): Status: Acute Qualifiers: COPD type: COPD with acute exacerbation Qualified Code(s): J44.1 - Chronic obstructive pulmonary disease with (acute) exacerbation (10) Seizures: Status: Chronic (11) Hepatitis C: Status: Acute (12) Bipolar 1 disorder: Status: Acute (13) Chronic kidney disease, stage III (moderate): Status: Acute Additional A&P Information Acute bronchitis. Aspiration pneumonitis/bronchitis highly suspected. Postnasal drip likely plays a role PLAN: Continue current monitoring and treatment. Continue thickened liquids and patient is aware and reports that she is compliant with it. Monitor CBC. Attestations Medical Necessity Statement*: Patient with acute bronchitis/pneumonia requires close inpatient monitoring and treatment including CBC. 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
--- NOTE | 2020-10-06 11:40 | PC.SOCIAL ---
IMM UPDATE Pg. 2 of IMM updated and reviewed with patient who verbalized understanding. Copy provided.
[2020-10-06] MEDS: LORazepam 2 mg Tablet PO ×4 (12:35→22:30)
[2020-10-07] VITALS (9 sets, daily range): BP systolic 108–137; BP diastolic 64–88; PULSE 87–127; RESP 16–25; TEMP 36.3–37.1; O2SAT 91–97
[2020-10-07] MEDS: LORazepam 2 mg Tablet PO ×4 (01:33→08:19)
[2020-10-07] MEDS: ipratropium-albuterol 3 mL Neb INHALATION ×2 (02:31→09:06)
--- NOTE | 2020-10-07 03:33 | ECG_ITS ---
[facility] Test Date: 2020-10-07 Pat Name: Delores Mckeon Department: Room: 266 Gender: Female Medical Collections: : [id number] Requested By: NOLAN ZHANG Order Number: [id number] [place] MD: Johnny Walsh M.D. Measurements Intervals [place] Rate: 119 P: 24 PA: 161 QRS: 3 QRSD: 83 T: 22 QT: 313 QTc: 441 Interpretive Statements SINUS TACHYCARDIA LOW QRS VOLTAGE IN PRECORDIAL LEADS [QRS DEFLECTION < 1.0 mV IN CHEST LEADS] INFERIOR MYOCARDIAL INFARCTION [40+ ms Q WAVE AND/OR ST/T ABNORMALITY IN II/aVF], PROBABLY OLD Compared to ECG 10/02/2020 02:41:22 T-wave abnormality no longer present Electronically Signed On 10-08-2020 10:59:28 RUG CLEANER HELPER by Johnny Walsh M.D. [id number]
[2020-10-07] MEDS: levoFLOXacin 750 mg Tablet PO (05:35)
[2020-10-07] MEDS: pantoprazole DR 40 mg Tablet PO (05:35)
[2020-10-07] MEDS: benzonatate 100 mg Capsule 200 MG PO ×2 (05:35→12:38)
[2020-10-07] MEDS: sucralfate 1 gm Tablet PO (05:35)
[2020-10-07] MEDS: levothyroxine 50 mcg Tablet PO (05:35)
[2020-10-07] MEDS: cholecalciferol (vitamin D3) 5,000 unit Tablet 5000 UNIT PO (05:36)
[2020-10-07] MEDS: folic acid 1 mg Tablet PO ×2 (05:36→08:19)
[2020-10-07] MEDS: levETIRAcetam 500 mg Tablet 1000 MG PO (05:36)
[2020-10-07] MEDS: levothyroxine 100 mcg Tablet 200 MCG PO (05:36)
[2020-10-07] MEDS: potassium chloride ER 20 mEq Tablet PO (05:36)
[2020-10-07] MEDS: FUROsemide 40 mg Tablet PO (05:36)
[2020-10-07] MEDS: thiamine 100 mg Tablet PO ×2 (05:36→08:19)
[2020-10-07] MEDS: fluticasone nasal spray 16gm Btl 1 SPRAY INTRANASAL (05:37)
[2020-10-07 06:11] LABS: Basophils % 0.8 %; Eosinophils # 0.1 10^3/uL (0.0-0.8); Eosinophils % 2.4 %; Hematocrit 30.6 % (37.0-47.0); Hemoglobin 8.3 g/dL (11.5-15.3); Lymphocytes # 1.3 10^3/uL (0.8-4.8); Lymphocytes % 25.5 %; Mean Corpuscular HGB Conc 27.1 g/dL (30.0-36.0); Mean Corpuscular Hemoglobin 22.1 pg (28.0-34.0); Mean Corpuscular Volume 81.6 fL (81-99); Mean Platelet Volume 10.7 fL (7.4-10.4); Monocytes # 0.9 10^3/uL (0.2-0.9); Monocytes % 17.7 %; Neutrophils # 2.66 10^3/uL (1.8-7.7); Neutrophils % 53.4 %; Nucleated Red Blood Cells % 0 %; Platelet Count 238 10^3/cmm (130-400); Red Blood Count 3.75 10^6/uL (4.1-5.3); Red Cell Distribution Width 25.2 % (12.1-15.1)
[2020-10-07 06:30] LABS: Alanine Aminotransferase 23 U/L (0-33); Albumin Level 3.5 g/dL (3.5-5.2); Alkaline Phosphatase 290 IU/L (35-105); Anion Gap 10.2 (5-19); Aspartate Amino Transferase 34 U/L (0-32); Blood Urea Nitrogen 7 mg/dL (6-20); Calcium 8.3 mg/dL (8.5-10.5); Carbon Dioxide 36 mmol/L (22-29); Chloride 92 mmol/L (98-107); Globulin 4.7 g/dL (1.3-4.6); Glomerular Filtration Rate 59.7 mL/min (90-130); Glucose 97 mg/dL (65-115); Magnesium 1.6 mg/dL (1.7-2.3); Osmolality Calculated 278 mOsm/kg (285-295); Potassium 3.2 mmol/L (3.5-5.1); Sodium 135 mmol/L (136-145); Total Bilirubin 0.8 mg/dL (0.15-1.2); Total Protein 8.2 g/dL (6.6-8.7)
[2020-10-07 06:32] LABS: Troponin T (5th) Once 6 ng/L (0-10)
[2020-10-07 07:53] LABS: T4 Total 7.3 mcg/dL (5.1-11.9)
[2020-10-07] MEDS: magnesium oxide 400 mg tablet PO (08:18)
[2020-10-07] MEDS: tizanidine 4 mg Tablet 2 MG PO (08:19)
[2020-10-07] MEDS: multivitamin therapeutic Tablet 1 TAB PO (08:19)
[2020-10-07] MEDS: atorvastatin 40 mg Tablet PO (08:19)
--- NOTE | 2020-10-07 08:38 | PM.DCS ---
Discharge Providers Date of Admission: 10/03/20 15:48 Date of Discharge: October 07, 2020 Attending Provider at Admission: Bran Arita MD Attending Provider at Discharge: Sreedhar Blackwood MD Primary Care Provider: Octaviano Sue MD Diagnoses at Discharge Discharge Diagnosis (1) Acute pancreatitis: Status: Acute Qualifiers: Acute pancreatitis complication: no infection or necrosis Pancreatitis type: unspecified pancreatitis type Qualified Code(s): K85.90 - Acute pancreatitis without necrosis or infection, unspecified (2) Alcohol abuse: Status: Acute (3) Myxedema coma: Status: Acute (4) Chest pain: Status: Acute (5) Normocytic anemia, not due to blood loss: Status: Acute Permanent problem details: Transfuse approximately 3 units while in the hospital. No evidence of active bleeding. (6) Non-pitting edema: Status: Acute (7) GERD with esophagitis: Status: Acute (8) Microcytic anemia: Status: Acute Permanent problem details: 71 highly suspected slow upper GI bleed related to alcohol induced gastritis (9) COPD (chronic obstructive pulmonary disease): Status: Acute Permanent problem details: -oxygen dependent Qualifiers: COPD type: COPD with acute exacerbation Qualified Code(s): J44.1 - Chronic obstructive pulmonary disease with (acute) exacerbation (10) Seizures: Status: Chronic (11) Hepatitis C: Status: Acute (12) Bipolar 1 disorder: Status: Acute (13) Chronic kidney disease, stage III (moderate): Status: Acute Reason for Visit Reason for Visit: chest pain Hospital Course Hospital Course Patient with significant history of alcohol abuse presents with chest pain and diagnosed with acute pancreatitis. Patient's chest pain felt to be noncardiac and highly suggestive to be GI in etiology. She appears to continue to drink alcohol. Reports that last alcohol drink was approximately 5 weeks ago. She has chronic back pain and requesting opioid analgesics. I had extensive discussion with patient regarding importance of appropriate follow-up with pain clinic for further evaluation. Patient is on muscle relaxants and benzodiazepines. Patient noted to have significant elevated TSH which improved with increase in thyroid medications. Patient reports that she takes both liothyronine and levothyroxine. Will request outpatient follow-up with endocrinology service. Patient noted to have aspiration to thin liquids and was seen by speech therapy with recommendation to thicken her liquids but apparently this morning during my evaluation with RN at bedside she reports that the patient does not comply with recommendation. I had extensive discussion regarding importance to comply to avoid aspiration pneumonia/Pneumonitis. Patient voiced understanding. I will continue Levaquin for 5 more days as patient's cough significantly improved. I will discontinue cough suppressants as it will predispose patient to pneumonia. I have recommended patient to stay away from the alcohol. She denies any withdrawal signs. This morning patient denies shortness of breath or chest pain. Her cough is better. She does not appear in any distress during my evaluation. She felt safe to be dismissed home with outpatient follow-up. I have recommended to follow-up with GI specialist to consider EUS and celiac block in case if she continues to have epigastric area pain. Patient will continue with PPI but her gastritis and GI bleed may continue if patient continues to drink alcohol. She understands that. I will request home health to make sure patient is taking her medications appropriately and doing okay. Patient agreed with home health. Physical Exam Const: COMMON NORMALS: no acute distress and patient oriented x3 Resp: COMMON NORMALS: normal respiratory effort and clear to auscultation bilaterally AUSCULTATION: clear to auscultation bilaterally Cardio: COMMON NORMALS: regular rate, regular rhythm and S2 normal heart sound present RATE: regular rate RHYTHM: regular rhythm HEART SOUNDS: S2 normal heart sound present OTHER: 1-2+ lower extremity edema GI: COMMON NORMALS: Normal to inspection, nondistended, normoactive bowel sounds present, Soft to palpation and non-tender PALPATION: Yes Soft to palpation Neuro: COMMON NORMALS: patient oriented x3 and no focal motor deficits Discharge Data Data Completed and Pending: Completed Studies During Hospitalization Category Date Time Status CT abdomen pelvis w con* [id number] Urge nt Cat Scan 10/02/20 05:[address] head wo con* 7 [id number] Stat Cat Scan 10/04/20 23:28 Completed XR chest 1V nichole ble [id number] Routine Exams 10/05/20 07:10 Completed XR chest 1V nichole ble [id number] Stat Exams 10/02/20 02:36 Completed Pending at discharge Category Date Time Status Complete Blood Co unt w/Auto AM LABS Lab 10/08/20 04:00 Ordered Comprehensive Met abolic Panel AM LA BS Lab 10/08/20 04:00 Ordered Magnesium AM LABS Lab 10/08/20 04:00 Ordered Sputum Culture an d Gram Stain Sri ne Lab 10/06/20 09:55 Uncollected Labs from last 24 hours 10/07/20 10/07/20 10/07/20 05:55 05:55 05:55 WBC 5.0 RBC 3.75 L Hgb 8.3 L Hct 30.6 L MCV 81.6 MCH 22.1 L MCHC 27.1 L RDW 25.2 H Plt Count 238 MPV 10.7 H Neut % (Auto) 53.4 Lymph % (Auto) 25.5 [place] % (Auto) 17.7 Eos % (Auto) 2.4 Baso % (Auto) 0.8 Neut # (Auto) 2.66 Lymph # (Auto) 1.3 [place] # (Auto) 0.9 Eos # (Auto) 0.1 Baso # (Auto) 0.0 Nucleated RBC % (a uto) 0 Nucleated RBCs # 0.0 Sodium 135 L Potassium 3.2 L Chloride 92 L Carbon Dioxide 36 H Anion Gap 10.2 BUN 7 Creatinine 1.0 H GFR Calculation 59.7 L Glucose 97 Calculated Osmolal ity 278 L Calcium 8.3 L Magnesium 1.6 L Total Bilirubin 0.8 AST 34 H ALT 23 Alkaline Phosphata se 290 H Troponin T Gen 5 n g/L 6 Total Protein 8.2 Albumin 3.5 Globulin 4.7 H Thyroxine (T4) 10/06/20 10/03/20 06:02 05:06 WBC RBC Hgb Hct MCV MCH MCHC RDW Plt Count MPV Neut % (Auto) Lymph % (Auto) [place] % (Auto) Eos % (Auto) Baso % (Auto) Neut # (Auto) Lymph # (Auto) [place] # (Auto) Eos # (Auto) Baso # (Auto) Nucleated RBC % (a uto) Nucleated RBCs # Sodium Potassium Chloride Carbon Dioxide Anion Gap BUN Creatinine GFR Calculation Glucose Calculated Osmolal ity Calcium Magnesium Total Bilirubin AST ALT Alkaline Phosphata se Troponin T Gen 5 n g/L Total Protein Albumin Globulin Thyroxine (T4) 7.3 2.9 L Vitals: Last Vital Signs Temp 98.4 F 10/07/20 08:00 Pulse 117 H 10/07/20 08:00 Resp 17 10/07/20 08:00 BP 109/83 10/07/20 08:00 Pulse Ox 97 10/07/20 08:00 Discharge Plan Discharge Patient Disposition: Home Health Service Condition: Stable Prescriptions: New multivitamin with folic acid [Thera] 400 mcg Tablet 1 tab PO DAILY Qty: 30 RF: 0 polyethylene glycol 3350 17 gram Powder In Packet 17 g PO DAILY Qty: 30 RF: 0 atorvastatin 40 mg Tablet 40 mg PO DAILY Qty: 30 RF: 0 magnesium oxide 400 mg (241.3 mg magnesium) Tablet 400 mg PO BID Qty: 60 RF: 0 levofloxacin 750 mg Tablet 750 mg PO DAILY@0600 Qty: 5 RF: 0 levothyroxine 50 mcg Tablet 50 mcg PO DAILY@0600 Qty: 30 RF: 0 liothyronine 25 mcg Tablet 50 mcg PO DAILY Qty: 30 RF: 0 Continued epinephrine [EpiPen 2-Tim] 0.3 mg/0.3 mL auto-injector 0.3 mg IM PRN PRN (Reason: Allergic Reaction) RF: 0 levetiracetam [Keppra] 500 mg tablet 1,000 mg PO BID@0600,1800 RF: 0 albuterol sulfate [Ventolin HFA] 90 mcg/actuation HFA aerosol inhaler See Rx Instructions .ROUTE .COMPLEX Qty: 18 RF: 0 furosemide 40 mg tablet 40 mg PO BID@0600,1800 RF: 0 potassium chloride [Klor-Con M20] 20 mEq tablet,ER particles/crystals 20 meq PO BID@0600,1800 RF: 0 pantoprazole 40 mg tablet,delayed release (DR/EC) 40 mg PO BID@0600,1800 RF: 0 budesonide 0.25 mg/2 mL suspension for nebulization 0.25 mg INHALATION BID@0600,1800 RF: 0 folic acid 1 mg tablet 1 mg PO DAILY@0600 RF: 0 fluticasone propionate [Flonase Allergy Relief] 50 mcg/actuation spray,suspension 1 spray INTRANASAL BID@0600,1800 RF: 0 cholecalciferol (vitamin D3) 125 mcg (5,000 unit) tablet 5,000 unit PO DAILY@0600 RF: 0 thiamine mononitrate (vit B1) [Vitamin B-1 (mononitrate)] 100 mg tablet 100 mg PO DAILY@0600 RF: 0 Spiriva Respimat 2.5 mcg/actuation mist 2 puff INHALATION DAILY@0600 RF: 0 levothyroxine 200 mcg capsule 200 mcg PO DAILY@0600 RF: 0 tizanidine [Zanaflex] 2 mg capsule 2 mg PO Q12H PRN (Reason: muscle spasticity) Qty: 10 RF: 0 ipratropium-albuterol 0.5 mg-3 mg(2.5 mg base)/3 mL solution for nebulization 3 ml INHALATION Q6H Qty: 15 RF: 0 albuterol sulfate 0.63 mg/3 mL solution for nebulization 0.63 mg INHALATION Q4H PRN (Reason: Shortness Of Breath) RF: 0 Incruse Ellipta 62.5 mcg/actuation blister with device 1 inh INHALATION DAILY@0600 RF: 0 clonazepam 0.5 mg tablet 0.25 mg PO BID PRN (Reason: anxiety) Qty: 14 RF: 0 Discontinued liothyronine [Cytomel] 25 mcg tablet 25 mcg PO DAILY Qty: 90 RF: 3 levothyroxine 25 mcg tablet 25 mcg PO DAILY@0600 RF: 0 benzonatate 100 mg capsule 200 mg PO TID@0600,1200,1800 RF: 0 dextromethorphan-guaifenesin 10-100 mg/5 mL Syrup 10 ml PO Q4H PRN (Reason: Cough) Qty: 30 RF: 0 sucralfate 1 gram tablet 1 g PO BID@0600,1800 RF: 0 Discharge Orders: Discharge Order (Routine); Ordered 10/07/20 Ordered By: Sreedhar Blackwood Referrals: Octaviano Sue MD [Primary Care Provider] - 4-7 days Michael Campbell MD [Physician] - 4-7 days Octaviano Snyder MD [Physician] - 4-7 days Romero Collins MD [Physician] - 4-7 days Discharge Diet: As Directed Discharge Activity: Increase activity as tolerated Activity Restrictions/Additional Instructions: Please call your doctor or present to emergency department if your condition worsens or you develop diarrhea, lightheadedness, fatigue or see blood in your stool or black stool. Please follow speech therapy recommendation and thicken your liquids to prevent aspirations as we have discussed. Please follow-up with specialist I have requested for further evaluation, monitoring and medication adjustment. Please follow-up with [facility] earliest possible. Please follow-up with GI specialist in [facility] or [place] to consider EUS procedure with celiac block if you continue to have repeated episodes of epigastric pain. Please discuss about this with your doctor. 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
[2020-10-07] MEDS: budesonide 0.5 mg/2 mL Neb 0.25 MG INHALATION (09:05)
[2020-10-07] MEDS: potassium chloride ER 20 mEq Tablet 40 MEQ PO (12:39)
--- NOTE | 2020-10-07 14:00 | PC.NURSE ---
Discharge instructions given to patient, voiced full understanding. Meds delivered from [facility] pharmacy,patient to main entrance via wheelchair to private vehicle with zero difficulties.
== END 2020-10-07 14:00 | disposition home health service (06) | DRG 438 ==
LOC: ER 08:50 → MEDSURG 23:49
PROVIDERS: Emergency Medicine; Internal Medicine Addiction Medicine; Admitting Provider Family Medicine; Emergency Provider Family Medicine; PCP Internal Medicine; Visit Provider Internal Medicine
DX: K85.90 Acute pancreatitis without necrosis or infection, unspecified (principal); E03.5 Myxedema coma; B17.10 Acute hepatitis C without hepatic coma; J44.1 Chronic obstructive pulmonary disease with (acute) exacerbation; I50.32 Chronic diastolic (congestive) heart failure; I13.0 Hypertensive heart and chronic kidney disease with heart failure and stage 1 through stage 4 chronic kidney disease, or unspecified chronic kidney disease; D64.9 Anemia, unspecified; F10.10 Alcohol abuse, uncomplicated; K21.00 Gastro-esophageal reflux disease with esophagitis, without bleeding; Z99.81 Dependence on supplemental oxygen; N18.30 Chronic kidney disease, stage 3 unspecified; F31.9 Bipolar disorder, unspecified; K57.90 Diverticulosis of intestine, part unspecified, without perforation or abscess without bleeding; E03.9 Hypothyroidism, unspecified; J20.9 Acute bronchitis, unspecified; R56.9 Unspecified convulsions; G89.29 Other chronic pain; M54.9 Dorsalgia, unspecified; E66.01 Morbid (severe) obesity due to excess calories; Z68.31 Body mass index [BMI] 31.0-31.9, adult; Z86.718 Personal history of other venous thrombosis and embolism; Z77.22 Contact with and (suspected) exposure to environmental tobacco smoke (acute) (chronic)
CPT/HCPCS: 12345; 36415; 36416; 70450; 71045; 74177; 80053; 80307; 81001; 82550; 82962; 83690; 83735; 83880; 84100; 84436; 84443; 84481; 84484; 85025; 85610; 86140; 87077; 87086; 87186; 87426; 87493; 92610; 93005; 94640; 94664; 96372; 97110; 97161; 97165; 99283; G0378; J1170; J1200; J1630; J1956; J2060; J2270; J2405; J2765; J3411; J3475; J7030; J7611; J7626; Q0162; Q9967

== ENCOUNTER 2020-11-02 12:15 | Emergency (ER) | payer MEDICARE, MEDICAID, SELFPAY ==
[2020-11-02 12:16] VITALS: BP 126/80; PULSE 99; RESP 20; TEMP 36.8; O2SAT 98; BMI 33.6
--- NOTE | 2020-11-02 12:22 | XR_ITS ---
WS: [id number] PORTABLE CHEST HISTORY: dyspnea COMPARISON: 10/05/2020 Very slight increase in obscuration of the LEFT costophrenic angle. In part this is due to the heart shadow. Small effusion and atelectasis is not excluded. No pleural effusion or pneumothorax. Cardiac size: Mildly enlarged cardiac silhouette. Mediastinum/Aorta: Small hiatal hernia. No osseous abnormality seen. XR/XR chest 1V portable [id number] IMPRESSION: 1. Partial obscuration of the LEFT costophrenic angle due to small amount of a telectasis or fluid. 2. Small hiatal hernia. 3. Mild cardiomegaly.
--- NOTE | 2020-11-02 12:22 | ECG_ITS ---
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 Measurements Intervals [place] Rate: 92 P: 40 [place]: 156 QRS: 10 QRSD: 88 T: 69 QT: 369 QTc: 458 Interpretive Statements SINUS RHYTHM LOW QRS VOLTAGE IN PRECORDIAL LEADS [QRS DEFLECTION < 1.0 mV IN CHEST LEADS] Compared to ECG 10/07/2020 03:50:02 Sinus tachycardia no longer present Myocardial infarct finding no longer present Electronically Signed On 11-02-2020 20:56:14 STAFF ANALYST by Ravinder House M.D. [id number]
[2020-11-02] MEDS: aspirin 81 mg Chew Tablet 324 MG PO (12:47)
[2020-11-02] MEDS: sodium chloride 0.9% 1,000 ML 999 ML IV (12:47)
[2020-11-02 13:12] LABS: Basophils % 1.3 %; Eosinophils # 0.1 10^3/uL (0.0-0.8); Eosinophils % 3.2 %; Hematocrit 32.4 % (37.0-47.0); Hemoglobin 8.9 g/dL (11.5-15.3); Lymphocytes # 1.7 10^3/uL (0.8-4.8); Lymphocytes % 53.2 %; Mean Corpuscular HGB Conc 27.5 g/dL (30.0-36.0); Mean Corpuscular Hemoglobin 21.2 pg (28.0-34.0); Mean Corpuscular Volume 77.3 fL (81-99); Mean Platelet Volume 9.5 fL (7.4-10.4); Monocytes # 0.4 10^3/uL (0.2-0.9); Monocytes % 11.2 %; Neutrophils % 30.8 %; Nucleated Red Blood Cells % 0 %; Platelet Count 397 10^3/cmm (130-400); Red Blood Count 4.19 10^6/uL (4.1-5.3); Red Cell Distribution Width 23.9 % (12.1-15.1); White Blood Count 3.1 10^3/uL (4.0-10.0)
[2020-11-02 13:14] LABS: Neutrophils # 0.96 10^3/uL (1.8-7.7)
[2020-11-02 14:03] VITALS: BP 130/85; PULSE 93; RESP 18; O2SAT 96
--- NOTE | 2020-11-02 14:15 | PC.NURSE ---
EKG done at 1409 and shown to ER doctor
--- NOTE | 2020-11-02 14:22 | ECG_ITS ---
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 Measurements Intervals [place] Rate: 91 P: 27 [place]: 164 QRS: -17 QRSD: 89 T: 69 QT: 393 QTc: 484 Interpretive Statements SINUS RHYTHM LOW QRS VOLTAGE IN PRECORDIAL LEADS [QRS DEFLECTION < 1.0 mV IN CHEST LEADS] NONSPECIFIC T-WAVE ABNORMALITY Compared to ECG 11/02/2020 12:32:39 T-wave abnormality now present Electronically Signed On 11-02-2020 21:01:48 MARZIPAN MAKER by Ravinder House M.D. [id number]
[2020-11-02 14:25] LABS: Ammonia 72 umol/L (11-51)
[2020-11-02 14:33] LABS: INR 1.04 (0.8-1.2)
[2020-11-02 14:35] LABS: Alanine Aminotransferase 39 U/L (0-33); Albumin Level 2.6 g/dL (3.5-5.2); Alkaline Phosphatase 211 IU/L (35-105); Aspartate Amino Transferase 69 U/L (0-32); Blood Urea Nitrogen 2 mg/dL (6-20); Calcium 7.3 mg/dL (8.5-10.5); Carbon Dioxide 28 mmol/L (22-29); Chloride 108 mmol/L (98-107); Creatinine Clr Calc Pharmacy 104.4933; D Dimer 3.35 ug/mIFEU (0-0.59); Globulin 4.3 g/dL (1.3-4.6); Glomerular Filtration Rate 90.1 mL/min (90-130); Glucose 127 mg/dL (65-115); Osmolality Calculated 302 mOsm/kg (285-295); Sodium 147 mmol/L (136-145); Total Bilirubin 0.3 mg/dL (0.15-1.2); Total Protein 6.9 g/dL (6.6-8.7)
[2020-11-02 14:37] LABS: Troponin(5th) Baseline 7 ng/L (0-10)
[2020-11-02 14:38] LABS: Alcohol Level 346 mg/dL (0-10)
[2020-11-02 14:42] VITALS: BP 143/88; PULSE 90; RESP 18; O2SAT 96
[2020-11-02 15:40] LABS: Troponin 5 2HR 7.41 ng/L (0-10); Troponin 5 2HR Delta 0.41 ABS# (0-10)
--- NOTE | 2020-11-02 15:42 | CTR_ITS ---
PROCEDURE INFORMATION: Exam: CT Angiography Chest With Contrast Exam date and time: 11/02/2020 3:46 PM Age: 45 years old Clinical indication: Dyspnea; Prior surgery; Surgery date: 6+ months; Surgery type: Gb; Additional info: R/O pe TECHNIQUE: Imaging protocol: Computed tomographic angiography of the chest with contrast. 3D rendering (Not supervised by radiologist): MIP and/or 3D reconstructed images were created by the technologist. Total images: 910 Radiation optimization: All CT scans at this facility use at least one of these dose optimization techniques: automated exposure control; mA and/or kV adjustment per patient size (includes targeted exams where dose is matched to clinical indication); or iterative reconstruction. Contrast material: OMNI 350; Contrast volume: 95 ml; Contrast route: INTRAVENOUS (IV); COMPARISON: 1. CT angio chest PE protcl [id number] 05/29/2020 11:[address] abdomen pelvis w con* [id number] 10/02/2020 6:03:[address] angio chest PE protcl [id number] 05/16/2020 2:03:25 PM RADIATION DOSE METRICS: Total DLP (mGy-cm): 577.62 FINDINGS: Pulmonary arteries: Examination is positive for pulmonary embolism/pulmonary arterial thrombus. Examination reveals nonocclusive pulmonary embolism thrombus proximal right upper lobes segmental artery and a small nonobstructing tiny string thrombus medial basal segment right lower lobe segmental artery. No visible left lung involvement. No associated right ventricular strain. Aorta: The thoracic aorta is nonaneurysmal. No intimal flap or dissection. Lungs: Stable 12 mm pulmonary nodule anterior basal segment right lower lobe since 05/16/2020. Potential granuloma. No visible active interstitial or alveolar airspace disease. Pleural spaces: Unremarkable. No pneumothorax. No pleural effusion. Heart: Cardiac size upper limits of normal. No visible pericardial effusion. No visible significant coronary artery disease. Mediastinal space: Diaphragmatic foramen of Bochdelek hernia with hiatal hernia stable since prior study. Lymph nodes: Stable sub cm mediastinal and hilar lymph nodes. Liver: Marked diffuse fatty infiltration of the liver with hepatomegaly. Gallbladder and bile ducts: Status post cholecystectomy. Spleen: Tiny splenules. Spleen otherwise unremarkable. Bones/joints: No visible active or acute osseous pathology. Soft tissues: Obesity. CT/CT angio chest PE protcl [id number] IMPRESSION: 1. Examination is positive for pulmonary embolism/pulmonary arterial thrombus of small load as detailed in text above. 2. No visible right ventricular strain. 3. No visible pulmonary infarction. 4. Stable 12 mm pulmonary nodule anterior basal segment right lower lobe since 05/16/2020. For both low risk and high risk patients, consider CT Chest at 3 months, PET/CT, or biopsy. (Reference: Osiel). 5. Other nonurgent, nonemergent, chronic, and age related findings as detailed in text above. REFERENCES: Osiel Cowart, et al. Guidelines for Management of Incidental Pulmonary Nodules Detected on CT Images: From the Fleischner Society 2017. Radiology. 2017;284(1):228-243. Radiation Dose CTDIVOL = (mGy): DLP = 577.62 (mGy-cm)
[2020-11-02] MEDS: potassium chloride ER 20 mEq Tablet 40 MEQ PO (15:44)
--- NOTE | 2020-11-02 15:57 | PC.NURSE ---
Nurse at bedside getting IV.
[2020-11-02 16:15] LABS: Lipase 31 U/L (13-60)
[2020-11-02 16:26] LABS: Amphetamines Screen Urine Negative (Negative); Barbiturates Screen Urine Negative (Negative); Benzodiazepines Screen Urine Positive (Negative); Cocaine Screen Urine Negative (Negative); Opiate Screen Urine Negative (Negative); PCP Screen Urine Negative (Negative); THC Screen Urine Negative (Negative)
[2020-11-02] MEDS: lidocaine 2% viscous 15 ML, aluminum-mag hydrox-simethicon 30 ML, sucralfate oral liq 1 GM PO (16:50)
--- NOTE | 2020-11-02 16:53 | PC.NURSE ---
patient to ct
[2020-11-02 16:57] LABS: Bilirubin Urine 1+ (Negative); Blood Urine Neg (Negative); Glucose Urine UA Norm (Normal); Ketones Urine 1+ (Negative); Nitrate Urine Negative (Negative); Protein Urine Trace (Negative); Urine Appearance Clear (CLEAR); Urine Color Yellow (Yellow); pH Urine 7 (5-7)
[2020-11-02 16:58] LABS: Add Urine Microscopic? YES; Leukocyte Esterase Urine Negative (Negative); RBC Urine 0-4 /hpf (0-2); Urobilinogen Urine Norm (Negative); WBC Urine 0-4 /hpf (0-5)
[2020-11-02] MEDS: iohexol 350 mg/mL 100 mL Btl IV (16:58)
[2020-11-02 16:59] LABS: Bacteria Urine 1+ /hpf; Mucus Urine 1+ /hpf
[2020-11-02 17:00] LABS: Add Urine Culture? Yes
[2020-11-02 17:12] VITALS: BP 125/92; PULSE 89; RESP 20; O2SAT 99
[2020-11-02] MEDS: FUROsemide 10 mg/mL SDV 4mL 40 MG IVP (17:43)
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
[2020-11-02] MEDS: enoxaparin 80 mg/0.8 mL Syringe SUBCUT (17:55)
[2020-11-02 18:03] LABS: NT Pro B Type Natriuretic Pept 231 pg/mL (0-125)
[2020-11-02 18:45] VITALS: BP 116/57; PULSE 87; RESP 20; O2SAT 99
--- NOTE | 2020-11-02 18:45 | P.MISC_ITS ---
Miscellaneous Note Purpose of Documentation: Patient seen in ER Note: Patient presented with left-sided chest pain. She has alcohol use disorder and was intoxicated in ER. She was further evaluated and found to have pulmonary emboli. Patient has previous history of GI bleed and I have recommended admission to ICU for close monitoring while patient is being anticoagulated. Unfortunately we do not have ICU beds available therefore patient was recommended to be transferred to [place]. Patient reports that she does not want to be transferred and prefers to go home and follow-up tomorrow with Dr. Cr. She reports that if she is not doing well she will c ome back. I had extensive discussion in ER with patient's significant other at bedside regarding importance of appropriate treatment of pulmonary emboli under appropriate settings. I do not think patient should be discharged on blood thinner due to very high risk of GI bleed and if she decides to leave it will be AGAINST MEDICAL ADVICE. Discussed with Dr. Yanez who is in agreement.
== END 2020-11-02 18:47 | disposition left against medical advice (07) ==
PROVIDERS: Emergency Provider Family Medicine; PCP Internal Medicine
DX: I26.99 Other pulmonary embolism without acute cor pulmonale (principal); F10.10 Alcohol abuse, uncomplicated; J98.4 Other disorders of lung; R07.9 Chest pain, unspecified; Z53.21 Procedure and treatment not carried out due to patient leaving prior to being seen by health care provider; N18.30 Chronic kidney disease, stage 3 unspecified; J44.9 Chronic obstructive pulmonary disease, unspecified; Z86.19 Personal history of other infectious and parasitic diseases; I50.30 Unspecified diastolic (congestive) heart failure; Z77.22 Contact with and (suspected) exposure to environmental tobacco smoke (acute) (chronic)
CPT/HCPCS: 36415; 71045; 71275; 80053; 80306; 80307; 81001; 82140; 83690; 83880; 84484; 85025; 85378; 85610; 87086; 93005; 96361; 96372; 96374; 99284; J1650; J1940; J7030; Q9967

== ENCOUNTER 2020-11-03 10:48 | Inpatient (IN) | payer MEDICARE, MEDICAID, SELFPAY ==
[2020-11-03] VITALS (49 sets, daily range): BP systolic 101–157; BP diastolic 69–103; PULSE 82–117; RESP 15–33; TEMP 36.7–37.2; O2SAT 86–99; BMI 31.8
--- NOTE | 2020-11-03 11:07 | XR_ITS ---
WS: [id number] Portable AP upright chest, 11/03/2020 Clinical Data: chest pain Comparison: Portable chest, 11/02/2020 Findings: No nodules, masses or effusions are seen. The heart is enlarged. The pulmonary vascularity is not increased. No pneumonia or pneumothorax is seen. There is minimal atelectasis in the left lowe r lobe. There is a large retrocardiac hiatal hernia. XR/XR chest 1V portable [id number] Impression: No change from yesterday's portable chest.
--- NOTE | 2020-11-03 11:08 | ECG_ITS ---
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 Measurements Intervals Ophiem Rate: 98 P: 30 OH: 164 QRS: -2 QRSD: 90 T: 14 QT: 362 QTc: 463 Interpretive Statements SINUS RHYTHM LOW QRS VOLTAGE IN PRECORDIAL LEADS [QRS DEFLECTION < 1.0 mV IN CHEST LEADS] MODERATE T-WAVE ABNORMALITY, CONSIDER ANTERIOR ISCHEMIA [-0.1+ mV T WAVE IN V3/V4] Compared to ECG 11/02/2020 14:11:15 Possible ischemia now present T-wave abnormality still present Electronically Signed On 11-03-2020 21:57:14 [employer] ARCHITECT by Odalis Johnston M.D. [id number]
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
[2020-11-03 13:07] LABS: Basophils % 0.9 %; Eosinophils # 0.1 10^3/uL (0.0-0.8); Eosinophils % 2.4 %; Hematocrit 29.8 % (37.0-47.0); Hemoglobin 8.3 g/dL (11.5-15.3); Lymphocytes % 58.3 %; Mean Corpuscular HGB Conc 27.9 g/dL (30.0-36.0); Mean Corpuscular Hemoglobin 21.5 pg (28.0-34.0); Mean Corpuscular Volume 77.2 fL (81-99); Mean Platelet Volume 8.9 fL (7.4-10.4); Monocytes # 0.4 10^3/uL (0.2-0.9); Monocytes % 11.3 %; Neutrophils % 26.8 %; Nucleated Red Blood Cells % 0 %; Platelet Count 335 10^3/cmm (130-400); Red Blood Count 3.86 10^6/uL (4.1-5.3); White Blood Count 3.4 10^3/uL (4.0-10.0)
--- NOTE | 2020-11-03 13:08 | ECG_ITS ---
[facility] Test Date: 2020-11-03 Pat Name: Delores Mckeon Department: Room: Gender: Female Palliative Care Physician: : 1975 Requested By: Eveline Ramos Order Number: [id number] Garland MD: Odalis Johnston M.D. Measurements Intervals [place] Rate: 96 P: 13 HI: 145 QRS: -2 QRSD: 89 T: 6 QT: 381 QTc: 483 Interpretive Statements SINUS RHYTHM LOW QRS VOLTAGE IN PRECORDIAL LEADS [QRS DEFLECTION < 1.0 mV IN CHEST LEADS] MODERATE T-WAVE ABNORMALITY, CONSIDER ANTERIOR ISCHEMIA [-0.1+ mV T WAVE IN V3/V4] Compared to ECG 11/03/2020 11:00:27 No significant changes Electronically Signed On 11-03-2020 22:17:20 TOPOGRAPHY TECHNICIAN by Odalis Johnston M.D. [id number]
[2020-11-03] MEDS: morphine 4 mg/mL SDV 1 mL IVP ×3 (13:16→23:36)
[2020-11-03] MEDS: pantoprazole 40 mg SDV IV (13:16)
[2020-11-03 13:25] LABS: Partial Thromboplastin Time 30.5 SECONDS (23.9-36.7)
--- NOTE | 2020-11-03 13:29 | PC.NURSE ---
EKG done at 1326 and shown to ROSALINDA PALMA
[2020-11-03 13:36] LABS: Troponin(5th) Baseline 7 ng/L (0-10)
[2020-11-03 13:44] LABS: Alanine Aminotransferase 32 U/L (0-33); Albumin Level 2.6 g/dL (3.5-5.2); Alkaline Phosphatase 203 IU/L (35-105); Anion Gap 10.1 (5-19); Aspartate Amino Transferase 45 U/L (0-32); Blood Urea Nitrogen 2 mg/dL (6-20); Calcium 7.1 mg/dL (8.5-10.5); Carbon Dioxide 34 mmol/L (22-29); Chloride 104 mmol/L (98-107); Creatinine Clr Calc Pharmacy 101.6169; Globulin 4.3 g/dL (1.3-4.6); Glomerular Filtration Rate 90.1 mL/min (90-130); Glucose 122 mg/dL (65-115); NT Pro B Type Natriuretic Pept 107 pg/mL (0-125); Osmolality Calculated 297 mOsm/kg (285-295); Potassium 3.1 mmol/L (3.5-5.1); Sodium 145 mmol/L (136-145); Total Bilirubin 0.4 mg/dL (0.15-1.2); Total Protein 6.9 g/dL (6.6-8.7)
[2020-11-03 13:52] LABS: Alcohol Level 302 mg/dL (0-10)
[2020-11-03 14:39] LABS: Troponin 5 2HR 7.72 ng/L (0-10); Troponin 5 2HR Delta 0.72 ABS# (0-10)
--- NOTE | 2020-11-03 15:26 | PC.NURSE ---
Patient hit her call light and informed me that her nose began to bleed. I got a nurse to evaluate her as the patient's nurse was in another room and got 4x4 gauze to have the patient hold pressure on her nose to stop the bleeding. The nurse was not greatly concerned at this time. I informed the patient's nurse and the PA that is over the patient's case. the PA is okay with her using the 4x4 gauze and to hold pressure until the bleeding stops. I informed the patient to keep pressure and to hit her call light should the bleeding worsen.
--- NOTE | 2020-11-03 15:30 | PC.NURSE ---
gave 4x4 gauze for a nose bleed, see previous note.
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
--- NOTE | 2020-11-03 18:10 | XRR_ITS ---
PROCEDURE INFORMATION: Exam: XR Chest Exam date and time: 11/03/2020 6:18 PM Age: 45 years old Clinical indication: Device placement; Other: Central line placement TECHNIQUE: Imaging protocol: XR of the chest Views: 1 view. Total images: 1 COMPARISON: 1. CR XR chest 1V portable [id number] 11/03/2020 11:[address] angio chest PE protcl [id number] 11/02/2020 5:10:50 PM FINDINGS: Tubes, catheters and devices: Interval placement of a right jugular central venous catheter tip mid SVC level. Lungs: Again note of a small approximately 10 mm pulmonary nodule right lung base. No visible consolidated alveolar airspace disease. Pleural spaces: Unremarkable. No pleural effusion. No pneumothorax. Heart/Mediastinum: Cardiac structures and configuration stable. Bones/joints: Unremarkable. Soft tissues: Foramen of Bochdelek hernia with hiatal hernia. Other findings: Heavy body habitus. XR/XR chest 1V portable [id number] IMPRESSION: Interval placement of a right jugular central venous catheter tip at the mid SVC level without radiographic evidence of complicating features.
[2020-11-03] MEDS: LORazepam 2 mg/mL INJ 1 mL 1 MG IVP (19:20)
[2020-11-03 19:37] LABS: Troponin 5 6HR 7.34 ng/L (0-10); Troponin 5 6HR Delta 0.34 ng/L (0-12)
[2020-11-03] MEDS: LORazepam 2 mg/mL INJ 1 mL IVP (20:43)
[2020-11-03] MEDS: sennosides 8.6 mg Tablet 17.2 MG PO (21:18)
[2020-11-03] MEDS: pantoprazole DR 40 mg Tablet PO (21:18)
[2020-11-03] MEDS: potassium chloride ER 20 mEq Tablet 40 MEQ PO ×2 (21:18→23:36)
[2020-11-03] MEDS: heparin drip 25,000 UNIT/500 ML PREMIX 19.6 UNIT IV (21:19)
[2020-11-03] MEDS: magnesium oxide 400 mg tablet PO (21:19)
[2020-11-03] MEDS: levETIRAcetam 500 mg Tablet 1000 MG PO (21:54)
[2020-11-03] MEDS: fluticasone nasal spray 16gm Btl 1 SPRAY INTRANASAL (21:54)
--- NOTE | 2020-11-03 22:24 | PC.NURSE ---
ICU Arrival: Pt arrived to ICU @2029 via gurney from ED. 3L NC-SPO2 96%. Pt was transferred over to ICU bed with assistance of nursing staff X3. Belongings placed in bedside closet. Phone was placed with pt. Pt observed to be under the influence. Slurring words, confused on date, but can verbalize that she is in ICU. Pt c/o pain in her lower legs and was continuously scratching at legs leaving morfin up and down already dry legs. Pt unable to lay still and c/o severe anxiety and not being able to breath/catch breath. RN gave PRN Ativan, and pt was able to breath and answer some questions. Call light in reach. Bed low and locked with bed alarm activated. No verbalized needs at this time.
--- NOTE | 2020-11-03 22:31 | PC.NURSE ---
Heparin Gtt: Heparin gtt initiated and infusing at 12u/kg as ordered. No bolus given via reported history of GI bleed. Verified protocol with second RN Darron.
[2020-11-03] MEDS: ondansetron 2 mg/ML SDV 2 mL 4 MG IVP (23:43)
[2020-11-04] VITALS (174 sets, daily range): BP systolic 94–159; BP diastolic 58–110; PULSE 58–122; RESP 17–33; TEMP 35.9–37.2; O2SAT 73–100
[2020-11-04] MEDS: LORazepam 2 mg/mL INJ 1 mL IVP ×2 (00:08→00:25)
[2020-11-04] MEDS: CLONazepam 0.5 mg Tablet 0.25 MG PO (00:15)
[2020-11-04] MEDS: dexmedetomidine 400 MCG in sodium chloride 0.9% (100 ml) 100 ML 8.5 MCG IV (00:39)
[2020-11-04 04:02] LABS: Eosinophils # 0.1 10^3/uL (0.0-0.8); Eosinophils % 2.6 %; Hematocrit 25.5 % (37.0-47.0); Hemoglobin 6.9 g/dL (11.5-15.3); Lymphocytes # 1.3 10^3/uL (0.8-4.8); Lymphocytes % 43.4 %; Mean Corpuscular HGB Conc 27.1 g/dL (30.0-36.0); Mean Corpuscular Hemoglobin 21.5 pg (28.0-34.0); Mean Corpuscular Volume 79.4 fL (81-99); Mean Platelet Volume 9.7 fL (7.4-10.4); Monocytes # 0.4 10^3/uL (0.2-0.9); Monocytes % 11.3 %; Neutrophils # 1.28 10^3/uL (1.8-7.7); Neutrophils % 41.4 %; Nucleated Red Blood Cells % 0 %; Platelet Count 253 10^3/cmm (130-400); Red Blood Count 3.21 10^6/uL (4.1-5.3); Red Cell Distribution Width 23.8 % (12.1-15.1); White Blood Count 3.1 10^3/uL (4.0-10.0)
[2020-11-04 04:15] LABS: Partial Thromboplastin Time 49.3 SECONDS (23.9-36.7)
[2020-11-04 04:34] LABS: Alanine Aminotransferase 25 U/L (0-33); Albumin Level 2.1 g/dL (3.5-5.2); Alkaline Phosphatase 168 IU/L (35-105); Anion Gap 7.7 (5-19); Aspartate Amino Transferase 30 U/L (0-32); Blood Urea Nitrogen 4 mg/dL (6-20); Calcium 6.6 mg/dL (8.5-10.5); Carbon Dioxide 33 mmol/L (22-29); Chloride 107 mmol/L (98-107); Globulin 4.1 g/dL (1.3-4.6); Glomerular Filtration Rate 77.2 mL/min (90-130); Glucose 89 mg/dL (65-115); Magnesium 1.7 mg/dL (1.7-2.3); Osmolality Calculated 294 mOsm/kg (285-295); Potassium 3.7 mmol/L (3.5-5.1); Sodium 144 mmol/L (136-145); Total Bilirubin 0.6 mg/dL (0.15-1.2); Total Protein 6.2 g/dL (6.6-8.7)
--- NOTE | 2020-11-04 04:45 | PC.NURSE ---
RN contacted MD commanding officer traffic division to verify heparin gtt order/protocol and update on current status. MD Kathe commanding officer traffic division updated on patient's ptt results, and gave new order to increase heparin gtt per protocol-no bolus to be given. See MAR for titration changes.
[2020-11-04] MEDS: morphine 4 mg/mL SDV 1 mL IVP ×3 (05:20→18:06)
[2020-11-04] MEDS: levothyroxine 100 mcg Tablet 200 MCG PO (05:21)
[2020-11-04] MEDS: thiamine 100 mg Tablet PO (05:21)
[2020-11-04] MEDS: cholecalciferol (vitamin D3) 5,000 unit Tablet 5000 UNIT PO (05:21)
[2020-11-04] MEDS: levothyroxine 50 mcg Tablet PO (05:21)
[2020-11-04] MEDS: folic acid 1 mg Tablet PO (05:23)
[2020-11-04] MEDS: levETIRAcetam 500 mg Tablet 1000 MG PO ×2 (05:23→17:49)
[2020-11-04] MEDS: fluticasone nasal spray 16gm Btl 1 SPRAY INTRANASAL ×2 (05:23→17:55)
[2020-11-04] MEDS: pantoprazole DR 40 mg Tablet PO ×2 (05:27→17:49)
--- NOTE | 2020-11-04 07:04 | PC.NURSE ---
Shift Summary/New orders: manager consumer phoned to update on pt condition and status. RN observed pt RR in 30-40 with SPO2 at 98%. HR 123-130's. C/O severe pain. Pt also stated she can't breathe . RN gave pain medications, as well as PRN Ativan in attempts to decrease pain levels/agitation. MD Kathe manager consumer gave v/o to give an early/extra dose of 2mg Ativan, and if that was unsuccessful in decreasing anxiety/agitation then to start a precedex gtt per protocol. Precedex gtt initiated. See MAR flowsheet for titrations. Pt later then verbally requested RN to give her Dilaudid because she felt as if the Morphine was causing her To spit..... And Dilaudid did not have that effect Pt now currently sleeping. Report given to ap viera RN.
[2020-11-04] MEDS: budesonide 0.5 mg/2 mL Neb 0.25 MG INHALATION ×2 (08:06→20:49)
--- NOTE | 2020-11-04 08:57 | PM.PN ---
Subjective Subjective: Interval history: Patient denies chest pain or abdominal pain this morning. Denies shortness of breath. She had no bowel movement yet. Her hemoglobin dropped down to 6.9. She is hemodynamically stable. Vitals/I&O/Wt Last Vital Signs Temp 98.6 F 11/04/20 04:15 Pulse 66 11/04/20 08:29 Resp 20 H 11/04/20 08:22 BP 146/91 11/04/20 06:05 Pulse Ox 96 11/04/20 08:22 11/03/20 11/04/20 11/04/20 22:59 06:59 14:59 Intake Total 150 / 150 436.090 / 586.090 16.433 / 16.433 Balance 150 / 150 436.090 / 586.090 16.433 / 16.433 Weight last 48 hrs Weight 81.648 kg Weight 81.647 kg Physical Exam Narrative: EXAM NARRATIVE: Lungs overall decreased air movement but otherwise clear. No wheezing rales or rhonchi appreciated. Heart is regular. Abdomen is soft and nontender. No lower extremity pitting edema. Data : 11/04/20 03:30 11/04/20 03:30 A&P Assessment and plan (1) Pulmonary embolism: Patient does have IVC filter. This could be in situ PE secondary to suspected lung malignancy versus embolizing from IVC itself. Status: Acute (2) Pancytopenia: Concern for alcohol induced versus hep C versus malignancy. Status: Acute (3) Atypical chest pain: This appears to be pleuritic related to PE. Acute coronary syndrome felt highly unlikely. Troponin negative and EKG is without acute findings. Status: Acute (4) Chronic alcohol abuse: Status: Acute (5) Acute alcohol intoxication: Status: Acute Qualifiers: Complication of substance-induced condition: uncomplicated Qualified Code(s): F10.920 - Alcohol use, unspecified with intoxication, uncomplicated (6) Hepatitis C: Status: Acute (7) Seizure disorder: Status: Acute (8) History of GI bleed: Fecal occult blood test positive in ER. Status: Acute (9) Obesity (BMI 30.0-34.9): Status: Acute (10) Medical non-compliance: Status: Acute (11) Pulmonary nodule, right: Concerning for malignancy especially with previous history of breast cancer. Status: Acute (12) Gastritis due to alcohol without hemorrhage: Status: Acute (13) COPD (chronic obstructive pulmonary disease): Currently not in exacerbation. Status: Acute Qualifiers: COPD type: COPD with acute exacerbation Qualified Code(s): J44.1 - Chronic obstructive pulmonary disease with (acute) exacerbation (14) Hypokalemia: Status: Acute Additional A&P Information PLAN: Discussed with RN and we will decrease PTT targets to 45-65 but I still will continue anticoagulation at this point with close monitoring of vitals and hemoglobin. We will give 1 unit of PRBC. Patient to be started on Librium this morning. Should there be evidence of GI bleed we will have to discontinue heparin drip and consider transferring patient to [facility] for mechanical thrombectomy versus targeted TPA administration. Attestations Medical Necessity Statement*: Patient with PE and high risk for GI bleed requires close ICU monitoring and treatment. Time Spent in Patient Care: 16 - 35 minutes Coding Level of Care Code Acute Fashion Consultant Selling for [facility] Diagnoses Pulmonary embolism I26.99 Pancytopenia D61.818 Atypical chest pain R07.89 Chronic alcohol abuse F10.10 Acute alcohol intoxication F10.920 Complication of substance-induced condition: uncomplicated Hepatitis C B19.20 Seizure disorder G40.909 History of GI bleed Z87.19 Obesity (BMI 30.0-34.9) E66.9 Medical non-compliance Z91.19 Pulmonary nodule, right R91.1 Gastritis due to alcohol without hemorrhage K29.20 COPD (chronic obstructive pulmonary disease) J44.1 COPD type: COPD with acute exacerbation Hypokalemia E87.6
[2020-11-04] MEDS: multivitamin therapeutic Tablet 1 TAB PO (09:09)
[2020-11-04] MEDS: magnesium oxide 400 mg tablet PO ×2 (09:09→17:49)
[2020-11-04] MEDS: atorvastatin 40 mg Tablet PO (09:10)
[2020-11-04] MEDS: polyethylene glycol 3350 Pkt 17 gm PO (09:10)
[2020-11-04] MEDS: sodium chloride 0.9% (100 ml) 100 ML 50 ML (10:59)
[2020-11-04 11:03] LABS: Partial Thromboplastin Time 63.5 SECONDS (23.9-36.7)
[2020-11-04] MEDS: dexmedetomidine 400 MCG in sodium chloride 0.9% (100 ml) 100 ML IV (11:31)
[2020-11-04] MEDS: chlordiazePOXIDE 25 mg Capsule PO ×2 (13:02→17:49)
--- NOTE | 2020-11-04 13:11 | PC.CHAP ---
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 deposition operator visit [] Patient/Family/Request visit [] Outpatient visit [] Follow-up visit [] Physician referral [] Code/Alert [] Routine visit [] Staff referral [] Actively dying [xx] Patient sleeping [] Family support [] [] Out of room [] Palliative care [] [] Receiving care in room [] Pre-surgical visit [] Trauma [] Long length of stay [xx] ICU visit [] Other: Relational/Emotional Strength [] Patient feels connected with others/family/visitors/staff [] Distress [] Loneliness/isolation [] Abandonment Spirituality of Patient [] Person of Angy [] Attends Bahai of their Angy [] Believes in Prayer [] Reads Bible or Mosque materials [] There are Spiritual issues to be addressed Mining Detail Draftsperson Interventions [] Prayer [] Active listening [] Non-anxious presence [] Spiritual/emotional support [] Crisis/trauma care [] Spiritual counseling [] Bereavement support [] Provided bereavement packet [] Provided Bible/devotional materials [] Provided toy/stuffed animal, coloring book to patient or family member [] Provided Communion [] Anointing/[place] [] Salvation [] Completed spiritual assessment [] Other: Impact on Illness or Injury [] Angry [] Fearful [] Anxious [] Often cries [] Exhaustion [] Unable to work [] Unable to attend mandaen [] Unable to walk/stand [] Unable to read [] Unable to drive [] Unable to eat/drink [] Unable to sleep [] Unable to be with family [] Patient intubated [] Other: Summary Follow up needed Time spent with patient
[2020-11-04 17:22] LABS: Partial Thromboplastin Time 48.2 SECONDS (23.9-36.7)
[2020-11-04] MEDS: diphenhydrAMINE 25 mg Capsule PO (17:49)
--- NOTE | 2020-11-04 18:54 | PC.PT ---
Nursing requests hold physical therapy evaluation today due to patient bilateral PEs, in addition to other contraindications, will reattempt tomorrow
[2020-11-04] MEDS: heparin drip 25,000 UNIT/500 ML PREMIX 21.6 UNIT IV (21:03)
[2020-11-04] MEDS: sennosides 8.6 mg Tablet 17.2 MG PO (21:05)
[2020-11-04 22:27] LABS: Hematocrit 30.5 % (37.0-47.0); Hemoglobin 8.4 g/dL (11.5-15.3)
[2020-11-04 22:39] LABS: Partial Thromboplastin Time 46.9 SECONDS (23.9-36.7)
[2020-11-04] MEDS: dexmedetomidine 400 MCG in sodium chloride 0.9% (100 ml) 100 ML 12.7 MCG IV (23:12)
[2020-11-05] VITALS (294 sets, daily range): BP systolic 83–126; BP diastolic 43–92; PULSE 69–101; RESP 13–41; TEMP 36.5–37.1; O2SAT 81–100
[2020-11-05] MEDS: chlordiazePOXIDE 25 mg Capsule PO ×5 (00:20→23:55)
[2020-11-05] MEDS: diphenhydrAMINE 25 mg Capsule PO ×3 (00:20→14:14)
[2020-11-05 00:49] LABS: Add Urine Microscopic? NO
[2020-11-05 01:06] LABS: Bilirubin Urine Neg (Negative); Blood Urine Neg (Negative); Glucose Urine UA Norm (Normal); Ketones Urine 1+ (Negative); Leukocyte Esterase Urine Negative (Negative); Nitrate Urine Negative (Negative); Protein Urine Neg (Negative); Sulfosalicylic Acid Urine Negative (Negative); Urine Appearance Clear (CLEAR); Urine Color Yellow (Yellow); Urobilinogen Urine 1 mg/dL (Negative); pH Urine 9 (5-7)
[2020-11-05] MEDS: thiamine 100 mg Tablet PO (05:08)
[2020-11-05] MEDS: pantoprazole DR 40 mg Tablet PO ×2 (05:08→19:13)
[2020-11-05] MEDS: levothyroxine 100 mcg Tablet 200 MCG PO (05:08)
[2020-11-05] MEDS: fluticasone nasal spray 16gm Btl 1 SPRAY INTRANASAL ×2 (05:08→17:23)
[2020-11-05] MEDS: folic acid 1 mg Tablet PO (05:08)
[2020-11-05] MEDS: levothyroxine 50 mcg Tablet PO (05:08)
[2020-11-05] MEDS: cholecalciferol (vitamin D3) 5,000 unit Tablet 5000 UNIT PO (05:08)
[2020-11-05] MEDS: levETIRAcetam 500 mg Tablet 1000 MG PO ×2 (05:08→17:21)
[2020-11-05] MEDS: morphine 4 mg/mL SDV 1 mL IVP ×5 (05:09→22:10)
[2020-11-05 05:49] LABS: Basophils % 0.3 %; Eosinophils # 0.1 10^3/uL (0.0-0.8); Eosinophils % 1.6 %; Hematocrit 30.8 % (37.0-47.0); Hemoglobin 8.5 g/dL (11.5-15.3); Lymphocytes # 0.7 10^3/uL (0.8-4.8); Lymphocytes % 10.2 %; Mean Corpuscular HGB Conc 27.6 g/dL (30.0-36.0); Mean Corpuscular Hemoglobin 22.3 pg (28.0-34.0); Mean Corpuscular Volume 80.8 fL (81-99); Mean Platelet Volume 10.2 fL (7.4-10.4); Monocytes # 0.2 10^3/uL (0.2-0.9); Monocytes % 3.7 %; Neutrophils # 5.41 10^3/uL (1.8-7.7); Neutrophils % 83.9 %; Nucleated Red Blood Cells % 0 %; Platelet Count 239 10^3/cmm (130-400); Red Blood Count 3.81 10^6/uL (4.1-5.3); Red Cell Distribution Width 22.4 % (12.1-15.1); White Blood Count 6.5 10^3/uL (4.0-10.0)
[2020-11-05 06:00] LABS: Alanine Aminotransferase 22 U/L (0-33); Albumin Level 2.3 g/dL (3.5-5.2); Alkaline Phosphatase 203 IU/L (35-105); Anion Gap 10.5 (5-19); Aspartate Amino Transferase 32 U/L (0-32); Blood Urea Nitrogen 8 mg/dL (6-20); Calcium 7.3 mg/dL (8.5-10.5); Carbon Dioxide 29 mmol/L (22-29); Chloride 103 mmol/L (98-107); Globulin 4.2 g/dL (1.3-4.6); Glomerular Filtration Rate 77.2 mL/min (90-130); Glucose 88 mg/dL (65-115); Osmolality Calculated 284 mOsm/kg (285-295); Potassium 4.5 mmol/L (3.5-5.1); Sodium 138 mmol/L (136-145); Total Bilirubin 1.2 mg/dL (0.15-1.2); Total Protein 6.5 g/dL (6.6-8.7)
[2020-11-05] MEDS: magnesium oxide 400 mg tablet PO ×2 (08:12→17:22)
[2020-11-05] MEDS: polyethylene glycol 3350 Pkt 17 gm PO (08:13)
[2020-11-05] MEDS: atorvastatin 40 mg Tablet PO (08:13)
[2020-11-05] MEDS: multivitamin therapeutic Tablet 1 TAB PO (08:13)
[2020-11-05] MEDS: tizanidine 4 mg Tablet 2 MG PO ×2 (08:20→18:49)
[2020-11-05] MEDS: budesonide 0.5 mg/2 mL Neb 0.25 MG INHALATION ×2 (08:44→20:27)
--- NOTE | 2020-11-05 09:03 | PC.NURSE ---
assisted up to chair. babs. well benadryl given for itching. weaned precedex off.
--- NOTE | 2020-11-05 09:36 | PC.NURSE ---
remains in chair, sleeping mostly. ptt drawn from cvl, prox. port.
--- NOTE | 2020-11-05 10:18 | PC.NURSE ---
remains sleeping in chair.
[2020-11-05 10:46] LABS: Partial Thromboplastin Time 46.1 SECONDS (23.9-36.7)
--- NOTE | 2020-11-05 10:53 | PM.PN ---
Subjective Subjective: Interval history: Patient denies chest pain or abdominal pain. Denies shortness of breath at rest. Reports chronic back pain and reports uncomfortable but. Frequently wants to reposition herself. She is itching a lot because of morphine. Her hemoglobin is stable. Vitals/I&O/Wt Last Vital Signs Temp 97.8 F 11/05/20 04:25 Pulse 75 11/05/20 10:00 Resp 24 H 11/05/20 10:00 BP 95/68 11/05/20 10:00 Pulse Ox 93 11/05/20 10:00 11/04/20 11/05/20 11/05/20 22:59 06:59 14:59 Intake Total 561.052 / 1351.934 490.115 / 1842.049 484.37 / 484.37 Output Total 1200 / 1500 Balance 561.052 / 1051.934 -709.885 / 342.049 484.37 / 484.37 Weight last 48 hrs Weight 82.126 kg Weight 81.648 kg Physical Exam Narrative: EXAM NARRATIVE: Lungs overall decreased air movement but otherwise clear. No wheezing rales or rhonchi appreciated. Heart is regular. Abdomen is soft and nontender. No lower extremity pitting edema. Urinary Catheter Management^: Cosme: Cath Placed During This Visit: yes Reason for Continuing Indwelling Catheter: Accurate Measurement of Urinary Output in Critically Ill Patients Urinary Catheter Date of Insertion: 11/05/20 Urinary Catheter Time of Insertion: 00:40 Data : 11/05/20 03:30 11/05/20 03:30 A&P Assessment and plan (1) Pulmonary embolism: Patient does have IVC filter. This could be in situ PE secondary to suspected lung malignancy versus embolizing from IVC itself. Status: Acute (2) Pancytopenia: Ruled out as patient had pancytopenia approximately 1 month ago. Entered by mistake. Status: Acute (3) Atypical chest pain: This appears to be pleuritic related to PE. Acute coronary syndrome felt highly unlikely. Troponin negative and EKG is without acute findings. Status: Acute (4) Chronic alcohol abuse: Status: Acute (5) Acute alcohol intoxication: Status: Acute Qualifiers: Complication of substance-induced condition: uncomplicated Qualified Code(s): F10.920 - Alcohol use, unspecified with intoxication, uncomplicated (6) Hepatitis C: Status: Acute (7) Seizure disorder: Status: Acute (8) History of GI bleed: Fecal occult blood test positive in ER. Status: Acute (9) Obesity (BMI 30.0-34.9): Status: Acute (10) Medical non-compliance: Status: Acute (11) Pulmonary nodule, right: Concerning for malignancy especially with previous history of breast cancer. Status: Acute (12) Gastritis due to alcohol without hemorrhage: Status: Acute (13) COPD (chronic obstructive pulmonary disease): Currently not in exacerbation. Status: Acute Qualifiers: COPD type: COPD with acute exacerbation Qualified Code(s): J44.1 - Chronic obstructive pulmonary disease with (acute) exacerbation (14) Hypokalemia: Status: Acute Additional A&P Information PLAN: We will continue close ICU monitoring and treatment. Discussed with refinement we will increase patient's PTT target to 55-75. Patient had no bowel movement yet. We will monitor. We will get patient out of bed in the chair. Continue monitoring hemoglobin and platelets. Leukopenia improved and likely was related to alcohol use. Continue Librium. Discontinue Precedex drip. Attestations Medical Necessity Statement*: Patient with high risk for GI bleed presents with PE requiring close ICU monitoring and treatment including heparin drip. Time Spent in Patient Care: 16 - 35 minutes Coding Level of Care Code Acute Wire Stripping Machine Operator for g Fwd Diagnoses Pulmonary embolism I26.99 Pancytopenia D61.818 Atypical chest pain R07.89 Chronic alcohol abuse F10.10 Acute alcohol intoxication F10.920 Complication of substance-induced condition: uncomplicated Hepatitis C B19.20 Seizure disorder G40.909 History of GI bleed Z87.19 Obesity (BMI 30.0-34.9) E66.9 Medical non-compliance Z91.19 Pulmonary nodule, right R91.1 Gastritis due to alcohol without hemorrhage K29.20 COPD (chronic obstructive pulmonary disease) J44.1 COPD type: COPD with acute exacerbation Hypokalemia E87.6
[2020-11-05] MEDS: heparin 5,000 unit/mL INJ 1 mL IV (11:05)
--- NOTE | 2020-11-05 11:23 | PC.NURSE ---
p.t. in assisted back to bed. babs. well
[2020-11-05] MEDS: LORazepam 2 mg/mL INJ 1 mL IVP ×2 (13:12→19:12)
--- NOTE | 2020-11-05 13:27 | PC.NURSE ---
had given pain med for chest pain after a coughing episode. prod. cough thick, clear secretions. within 15 min. noted her scratching and moving legs around in bed. moaning, requesting something for anxiety. stated her mom had called/text and it upset me. doesnt want any info. given to her. stated she gave me up when i was born, dont know why she is concerned now. documented on face sheet she doesnt want info given out.
--- NOTE | 2020-11-05 15:36 | PC.NURSE ---
up to b.s.c.. no b.m. then to chair. at bedside. hair combed
--- NOTE | 2020-11-05 16:55 | PC.NURSE ---
back to bed. babs. up well. asking for pain med.
[2020-11-05 17:47] LABS: Partial Thromboplastin Time 63.5 SECONDS (23.9-36.7)
[2020-11-05] MEDS: heparin drip 25,000 UNIT/500 ML PREMIX 26.3 UNIT IV (18:36)
[2020-11-05] MEDS: sennosides 8.6 mg Tablet 17.2 MG PO (20:22)
[2020-11-06] VITALS (284 sets, daily range): BP systolic 83–142; BP diastolic 52–120; PULSE 68–134; RESP 0–72; TEMP 36.2–37.3; O2SAT 78–99
[2020-11-06 00:59] LABS: Partial Thromboplastin Time 52.2 SECONDS (23.9-36.7)
[2020-11-06] MEDS: heparin 5,000 unit/mL INJ 1 mL IV (01:41)
--- NOTE | 2020-11-06 02:02 | PC.NURSE ---
01:[address] Archuleta in regards to heparin gtt with current PTT level. Order received to follow heparin gtt protocol without the written modifications. New heparin gtt record sheet started, please see original sheet for initiation of drip.
[2020-11-06] MEDS: morphine 4 mg/mL SDV 1 mL IVP ×2 (03:26→07:11)
[2020-11-06 04:31] LABS: Alanine Aminotransferase 23 U/L (0-33); Albumin Level 2.1 g/dL (3.5-5.2); Alkaline Phosphatase 222 IU/L (35-105); Anion Gap 10.2 (5-19); Aspartate Amino Transferase 50 U/L (0-32); Blood Urea Nitrogen 7 mg/dL (6-20); Carbon Dioxide 26 mmol/L (22-29); Chloride 106 mmol/L (98-107); Glomerular Filtration Rate 67.4 mL/min (90-130); Glucose 101 mg/dL (65-115); Magnesium 1.9 mg/dL (1.7-2.3); Osmolality Calculated 284 mOsm/kg (285-295); Potassium 4.2 mmol/L (3.5-5.1); Sodium 138 mmol/L (136-145); Total Bilirubin 0.6 mg/dL (0.15-1.2); Total Protein 6.1 g/dL (6.6-8.7)
[2020-11-06] MEDS: LORazepam 2 mg/mL INJ 1 mL IVP (05:04)
[2020-11-06] MEDS: levETIRAcetam 500 mg Tablet 1000 MG PO ×2 (05:23→17:43)
[2020-11-06] MEDS: levothyroxine 100 mcg Tablet 200 MCG PO (05:24)
[2020-11-06] MEDS: levothyroxine 50 mcg Tablet PO (05:24)
[2020-11-06] MEDS: cholecalciferol (vitamin D3) 5,000 unit Tablet 5000 UNIT PO (05:24)
[2020-11-06] MEDS: thiamine 100 mg Tablet PO (05:24)
[2020-11-06] MEDS: folic acid 1 mg Tablet PO (05:24)
[2020-11-06] MEDS: chlordiazePOXIDE 25 mg Capsule PO (05:24)
[2020-11-06] MEDS: fluticasone nasal spray 16gm Btl 1 SPRAY INTRANASAL ×2 (05:25→17:46)
[2020-11-06] MEDS: pantoprazole DR 40 mg Tablet PO ×2 (05:25→17:42)
--- NOTE | 2020-11-06 07:51 | PC.NURSE ---
up to chair at bedside. exertional wheezes.
--- NOTE | 2020-11-06 07:53 | PC.NURSE ---
dr. courtney in
[2020-11-06 08:07] LABS: Basophils % 0.7 %; Eosinophils # 0.1 10^3/uL (0.0-0.8); Eosinophils % 2.9 %; Hematocrit 27.6 % (37.0-47.0); Hemoglobin 7.5 g/dL (11.5-15.3); Lymphocytes # 1.1 10^3/uL (0.8-4.8); Lymphocytes % 26.3 %; Mean Corpuscular HGB Conc 27.2 g/dL (30.0-36.0); Mean Corpuscular Hemoglobin 22.3 pg (28.0-34.0); Mean Corpuscular Volume 81.9 fL (81-99); Mean Platelet Volume 10.4 fL (7.4-10.4); Monocytes # 0.2 10^3/uL (0.2-0.9); Monocytes % 5.6 %; Neutrophils # 2.64 10^3/uL (1.8-7.7); Neutrophils % 64.3 %; Nucleated Red Blood Cells % 0 %; Platelet Count 195 10^3/cmm (130-400); Red Blood Count 3.37 10^6/uL (4.1-5.3); Red Cell Distribution Width 22.5 % (12.1-15.1); White Blood Count 4.1 10^3/uL (4.0-10.0)
[2020-11-06] MEDS: budesonide 0.5 mg/2 mL Neb 0.25 MG INHALATION (08:19)
[2020-11-06 08:47] LABS: Partial Thromboplastin Time 58.1 SECONDS (23.9-36.7)
[2020-11-06] MEDS: magnesium oxide 400 mg tablet PO ×2 (08:58→17:42)
[2020-11-06] MEDS: atorvastatin 40 mg Tablet PO (08:58)
[2020-11-06] MEDS: multivitamin therapeutic Tablet 1 TAB PO (08:59)
[2020-11-06] MEDS: polyethylene glycol 3350 Pkt 17 gm PO (08:59)
--- NOTE | 2020-11-06 09:26 | PC.NURSE ---
mariella galvez with nura
--- NOTE | 2020-11-06 09:39 | PM.PN ---
Subjective Subjective: Interval history: Patient reports that she continues to have chest pain and is asking for IV morphine every 4 hours. Patient reported pain during my evaluation this morning. She got to chair and was able to eat her breakfast. She did not appear in any distress. She had no bowel movement yet. Her hemoglobin dropped down to 7.5 and platelets are down to 195. Her BUN is not elevated. Vitals/I&O/Wt Last Vital Signs Temp 97.2 F L 11/06/20 03:38 Pulse 102 H 11/06/20 08:26 Resp 0 L 11/06/20 08:22 BP 96/63 11/06/20 06:05 Pulse Ox 96 11/06/20 08:22 11/05/20 11/06/20 11/06/20 22:59 06:59 14:59 Intake Total 480 / 1289.33 541.552 / 1830.882 Output Total 475 / 475 275 / 750 Balance 5 / 814.33 266.552 / 1080.882 Weight last 48 hrs Weight 91 kg Weight 82.126 kg Physical Exam Narrative: EXAM NARRATIVE: Lungs overall decreased air movement but otherwise clear. No wheezing rales or rhonchi appreciated. Heart is regular. Abdomen is soft and nontender. No lower extremity pitting edema. Urinary Catheter Management^: Cosme: Cath Placed During This Visit: yes Reason for Continuing Indwelling Catheter: Accurate Measurement of Urinary Output in Critically Ill Patients Urinary Catheter Date of Insertion: 11/05/20 Urinary Catheter Time of Insertion: 00:40 Data : 11/06/20 03:16 11/06/20 03:16 A&P Assessment and plan (1) Pulmonary embolism: Patient does have IVC filter. This could be in situ PE secondary to suspected lung malignancy versus embolizing from IVC itself. Status: Acute (2) Pancytopenia: Ruled out as patient had pancytopenia approximately 1 month ago. Entered by mistake. Status: Acute (3) Atypical chest pain: This appears to be pleuritic related to PE. Acute coronary syndrome felt highly unlikely. Troponin negative and EKG is without acute findings. Status: Acute (4) Chronic alcohol abuse: Status: Acute (5) Acute alcohol intoxication: Status: Acute Qualifiers: Complication of substance-induced condition: uncomplicated Qualified Code(s): F10.920 - Alcohol use, unspecified with intoxication, uncomplicated (6) Hepatitis C: Status: Acute (7) Seizure disorder: Status: Acute (8) History of GI bleed: Fecal occult blood test positive in ER. Status: Acute (9) Obesity (BMI 30.0-34.9): Status: Acute (10) Medical non-compliance: Status: Acute (11) Pulmonary nodule, right: Concerning for malignancy especially with previous history of breast cancer. Status: Acute (12) Gastritis due to alcohol without hemorrhage: Status: Acute (13) COPD (chronic obstructive pulmonary disease): Currently not in exacerbation. Status: Acute Qualifiers: COPD type: COPD with acute exacerbation Qualified Code(s): J44.1 - Chronic obstructive pulmonary disease with (acute) exacerbation (14) Hypokalemia: Status: Acute Additional A&P Information PLAN: Continue current monitoring and treatment. Once hemoglobin stabilizes we will consider switching to Lovenox. As for now continue heparin with PTT target 55-75. Continue Librium. Will change IV morphine to oral. Continue monitoring CBC daily. Continue monitoring vitals. Continue CIWA protocol. Tachycardia could be related to withdrawal. Will increase Librium to 50 mg every 6 hours and continue with Ativan as needed. Consider Precedex drip. Doubt PE propagation at this point. Should patient get hypotensive will consider transfusing with PRBC and discontinuing heparin drip. Attestations Medical Necessity Statement*: Patient with PE and high risk for GI bleed requires close ICU monitoring and treatment. Coding Level of Care Code Acute Hand Spinner for [facility] Fwd Diagnoses Pulmonary embolism I26.99 Pancytopenia D61.818 Atypical chest pain R07.89 Chronic alcohol abuse F10.10 Acute alcohol intoxication F10.920 Complication of substance-induced condition: uncomplicated Hepatitis C B19.20 Seizure disorder G40.909 History of GI bleed Z87.19 Obesity (BMI 30.0-34.9) E66.9 Medical non-compliance Z91.19 Pulmonary nodule, right R91.1 Gastritis due to alcohol without hemorrhage K29.20 COPD (chronic obstructive pulmonary disease) J44.1 COPD type: COPD with acute exacerbation Hypokalemia E87.6
--- NOTE | 2020-11-06 09:40 | PC.SOCIAL ---
Pg 2 IMM Explained to pt Pg 2 IMM. No questions voiced. Provided pt a copy. Initialed, dated, & timed a copy & placed in chart.
[2020-11-06] MEDS: morphine IR 15 mg Tablet PO ×3 (10:21→18:40)
[2020-11-06] MEDS: CLONazepam 0.5 mg Tablet 0.25 MG PO (10:22)
--- NOTE | 2020-11-06 10:52 | PC.NURSE ---
became anxious d/t not having plug in for phone staff development manager.
--- NOTE | 2020-11-06 11:47 | PC.NURSE ---
extra dose of 25mg of librium not given.
--- NOTE | 2020-11-06 12:10 | PC.NURSE ---
ex at bedside. note almost constant movement of lower extremities. she req. his hel instead of calling for nurse.
--- NOTE | 2020-11-06 12:33 | PC.NURSE ---
c/o my heart hurts points to upper chest area. remains moaning, moving legs ect.
[2020-11-06] MEDS: diphenhydrAMINE 25 mg Capsule PO (12:47)
--- NOTE | 2020-11-06 13:50 | ECG_ITS ---
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: : 1975 Requested By: Sreedhar Blackwood Order Number: [id number] Reading MD: LAWRENCE DOMINGO Measurements Intervals [place] Rate: 119 P: 20 [place]: 164 QRS: -4 QRSD: 74 T: 21 QT: 340 QTc: 478 Interpretive Statements SINUS TACHYCARDIA POSSIBLE INFERIOR MYOCARDIAL INFARCTION [30 ms Q WAVE IN II/aVF], PROBABLY OLD ABNORMAL RHYTHM ECG Compared to ECG 11/03/2020 13:23:10 Myocardial infarct finding now present Sinus rhythm no longer present T-wave abnormality no longer present Possible ischemia no longer present Electronically Signed On 11-06-2020 17:43:01 STEEL GRINDER by LAWRENCE DOMINGO [email or web address] [id number]
--- NOTE | 2020-11-06 14:06 | PC.NURSE ---
ekg in progress.
--- NOTE | 2020-11-06 14:07 | PC.NURSE ---
ex. trying to leave. pt. calling out instructions to him, angry he is leaving.
[2020-11-06 14:47] LABS: Troponin(5th) Baseline 6 ng/L (0-10)
--- NOTE | 2020-11-06 14:47 | PC.NURSE ---
having coughing episode. moist. encouraged to take slow deep breaths.
--- NOTE | 2020-11-06 15:50 | ECG_ITS ---
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: : 1975 Requested By: Sreedhar Blackwood Order Number: [id number] Reading MD: LAWRENCE DOMINGO Measurements Intervals [place] Rate: 116 P: 31 ND: 165 QRS: 2 QRSD: 77 T: 51 QT: 335 QTc: 466 Interpretive Statements SINUS TACHYCARDIA MINIMAL ST DEPRESSION [0.025+ mV ST DEPRESSION] ABNORMAL RHYTHM ECG Compared to ECG 11/06/2020 14:06:51 ST (T wave) deviation now present Myocardial infarct finding no longer present Electronically Signed On 11-06-2020 17:44:33 OPTICAL GLASS SILVERER by LAWRENCE DOMINGO [id number]
[2020-11-06 16:19] LABS: Partial Thromboplastin Time 48.7 SECONDS (23.9-36.7)
[2020-11-06] MEDS: dexmedetomidine 400 MCG in sodium chloride 0.9% (100 ml) 100 ML IV (16:25)
--- NOTE | 2020-11-06 16:27 | PC.NURSE ---
prbcs via medial port
[2020-11-06 16:29] LABS: Troponin 5 2HR Delta 0 ABS# (0-10)
[2020-11-06] MEDS: chlordiazePOXIDE 25 mg Capsule 50 MG PO ×2 (16:34→22:17)
--- NOTE | 2020-11-06 16:39 | PC.NURSE ---
crying, requesting dilaudid. it always helps my chest pain
[2020-11-06] MEDS: HYDROcodone-acetaminophen 5-325 mg Tablet 1 TAB PO (17:43)
--- NOTE | 2020-11-06 17:44 | PC.NURSE ---
pt. crying requesting i call phys. and ask for more pain med. did so back to room pt. snoring.
[2020-11-06] MEDS: heparin drip 25,000 UNIT/500 ML PREMIX 27.6 UNIT IV (17:58)
--- NOTE | 2020-11-06 19:50 | ECG_ITS ---
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: : 1975 Requested By: Sreedhar Blackwood Order Number: [id number] Reading MD: LAWRENCE DOMINGO Measurements Intervals [place] Rate: 74 P: 17 [place]: 164 QRS: 18 QRSD: 74 T: 31 QT: 417 QTc: 465 Interpretive Statements SINUS RHYTHM LOW QRS VOLTAGE IN PRECORDIAL LEADS [QRS DEFLECTION < 1.0 mV IN CHEST LEADS] MINIMAL ST DEPRESSION [0.025+ mV ST DEPRESSION] Compared to ECG 11/06/2020 16:06:11 Low QRS voltage now present Sinus tachycardia no longer present ST (T wave) deviation still present Electronically Signed On 11-07-2020 18:31:30 SUPPORT ANALYST by LAWRENCE DOMINGO [id number]
[2020-11-06] MEDS: sennosides 8.6 mg Tablet 17.2 MG PO (21:15)
[2020-11-06 21:31] LABS: Troponin 5 6HR Delta 0 ng/L (0-12)
--- NOTE | 2020-11-06 23:25 | PC.NURSE ---
Unable to complete CTA chest due to not being able to obtain peripheral IV access and radiologist anabella said it's against hospital protocol to use central line for contrast infusion. Several attempts made by multiple staff members using ultrasound. Adele, data warehouse specialist, was able to get an IV with ultrasound which infiltrated during contrast injection. Dr. Archuleta notified, stated to hold CTA and pass on in shift change report.
[2020-11-07] VITALS (98 sets, daily range): BP systolic 80–134; BP diastolic 51–94; PULSE 65–110; RESP 15–43; TEMP 36.3–37; O2SAT 87–97
[2020-11-07 01:05] LABS: Hematocrit 30.2 % (37.0-47.0); Hemoglobin 8.6 g/dL (11.5-15.3)
[2020-11-07] MEDS: heparin 5,000 unit/mL INJ 1 mL IV ×2 (01:44→08:30)
[2020-11-07] MEDS: dexmedetomidine 400 MCG in sodium chloride 0.9% (100 ml) 100 ML 8.5 MCG IV (03:53)
[2020-11-07] MEDS: chlordiazePOXIDE 25 mg Capsule 50 MG PO ×4 (04:06→21:39)
[2020-11-07] MEDS: morphine IR 15 mg Tablet PO ×3 (04:11→17:15)
[2020-11-07 04:31] LABS: Basophils % 0.8 %; Eosinophils # 0.1 10^3/uL (0.0-0.8); Eosinophils % 3.8 %; Hematocrit 31.6 % (37.0-47.0); Hemoglobin 8.8 g/dL (11.5-15.3); Lymphocytes # 1.1 10^3/uL (0.8-4.8); Lymphocytes % 29.9 %; Mean Corpuscular HGB Conc 27.8 g/dL (30.0-36.0); Mean Corpuscular Hemoglobin 23.2 pg (28.0-34.0); Mean Corpuscular Volume 83.4 fL (81-99); Mean Platelet Volume 10.6 fL (7.4-10.4); Monocytes # 0.3 10^3/uL (0.2-0.9); Monocytes % 8.4 %; Neutrophils # 2.09 10^3/uL (1.8-7.7); Neutrophils % 56.8 %; Nucleated Red Blood Cells % 0 %; Platelet Count 197 10^3/cmm (130-400); Red Blood Count 3.79 10^6/uL (4.1-5.3); Red Cell Distribution Width 22.5 % (12.1-15.1); White Blood Count 3.7 10^3/uL (4.0-10.0)
[2020-11-07 05:00] LABS: Alanine Aminotransferase 26 U/L (0-33); Albumin Level 2.3 g/dL (3.5-5.2); Alkaline Phosphatase 249 IU/L (35-105); Aspartate Amino Transferase 42 U/L (0-32); Blood Urea Nitrogen 6 mg/dL (6-20); Calcium 7.5 mg/dL (8.5-10.5); Carbon Dioxide 25 mmol/L (22-29); Chloride 107 mmol/L (98-107); Globulin 4.4 g/dL (1.3-4.6); Glomerular Filtration Rate 77.2 mL/min (90-130); Glucose 84 mg/dL (65-115); Magnesium 2.2 mg/dL (1.7-2.3); Osmolality Calculated 285 mOsm/kg (285-295); Sodium 139 mmol/L (136-145); Total Bilirubin 0.9 mg/dL (0.15-1.2); Total Protein 6.7 g/dL (6.6-8.7)
[2020-11-07] MEDS: cholecalciferol (vitamin D3) 5,000 unit Tablet 5000 UNIT PO (05:56)
[2020-11-07] MEDS: levothyroxine 100 mcg Tablet 200 MCG PO (05:56)
[2020-11-07] MEDS: folic acid 1 mg Tablet PO (05:57)
[2020-11-07] MEDS: levothyroxine 50 mcg Tablet PO (05:57)
[2020-11-07] MEDS: levETIRAcetam 500 mg Tablet 1000 MG PO ×2 (05:57→18:34)
[2020-11-07] MEDS: pantoprazole DR 40 mg Tablet PO ×2 (05:57→18:34)
[2020-11-07] MEDS: thiamine 100 mg Tablet PO (05:57)
[2020-11-07] MEDS: fluticasone nasal spray 16gm Btl 1 SPRAY INTRANASAL ×2 (05:57→17:16)
[2020-11-07] MEDS: budesonide 0.5 mg/2 mL Neb 0.25 MG INHALATION ×2 (07:29→21:14)
[2020-11-07 08:42] LABS: Partial Thromboplastin Time 79.4 SECONDS (23.9-36.7)
--- NOTE | 2020-11-07 09:07 | P.PN_ITS ---
Subjective Subjective: Interval history: Patient was talking to her significant other on the phone this morning and requesting him to bring food she likes. Reports that she continues to have pleuritic chest pain. She is asking for more pain medications. She is not in any distress during my evaluation. Her hemoglobin responded nicely to blood transfusion and remained stable. Her MCV appears to be gradually improving. Platelets are stable. Yesterday patient had worsening chest pain therefore EKG and troponin were obtained. She showed minimal lateral lead ST depressions while tachycardic and this appears to be related to tachycardia. Her troponin remained negative. She was started on Precedex for concern for withdrawal. Her vitals gradually improved. Because patient was complaining of significant chest pain CTA was requested again to make sure her clots are not propagating. Since today she only reports pain with cough I will go ahead and discontinue CT angio which for some reason was not done yet. Her BUN remains in normal range. She did not have bowel movement yet. Vitals/I&O/Wt Last Vital Signs Temp 97.8 F 11/07/20 04:00 Pulse 69 11/07/20 07:36 Resp 18 11/07/20 07:31 BP 114/80 11/07/20 06:10 Pulse Ox 93 11/07/20 07:31 11/06/20 11/07/20 11/07/20 22:59 06:59 14:59 Intake Total 717.668 / 1388.388 810.87 / 2199.258 Output Total 1850 / 1850 1200 / 3050 Balance -1132.332 / -461.612 -389.13 / -850.742 Weight last 48 hrs Weight 95.209 kg Weight 91 kg Physical Exam Narrative: EXAM NARRATIVE: Lungs overall decreased air movement but otherwise clear. No wheezing rales or rhonchi appreciated. Heart is regular. Abdomen is soft and nontender. No lower extremity pitting edema. Urinary Catheter Management^: Cosme: Cath Placed During This Visit: yes Reason for Continuing Indwelling Catheter: Accurate Measurement of Urinary Output in Critically Ill Patients Urinary Catheter Date of Insertion: 11/05/20 Urinary Catheter Time of Insertion: 00:40 Data : 11/07/20 04:12 11/07/20 04:12 A&P Assessment and plan (1) Pulmonary embolism: Patient does have IVC filter. This could be in situ PE secondary to suspected lung malignancy versus embolizing from IVC itself. Status: Acute (2) Pancytopenia: Ruled out as patient had pancytopenia approximately 1 month ago. Entered by mistake. Status: Acute (3) Atypical chest pain: This appears to be pleuritic related to PE. Acute coronary syndrome felt highly unlikely. Troponin negative and EKG is without acute findings. Status: Acute (4) Chronic alcohol abuse: Status: Acute (5) Acute alcohol intoxication: Status: Acute Qualifiers: Complication of substance-induced condition: uncomplicated Qualified Code(s): F10.920 - Alcohol use, unspecified with intoxication, uncomplicated (6) Hepatitis C: Status: Acute (7) Seizure disorder: Status: Acute (8) History of GI bleed: Fecal occult blood test positive in ER. Status: Acute (9) Obesity (BMI 30.0-34.9): Status: Acute (10) Medical non-compliance: Status: Acute (11) Pulmonary nodule, right: Concerning for malignancy especially with previous history of breast cancer. Status: Acute (12) Gastritis due to alcohol without hemorrhage: Status: Acute (13) COPD (chronic obstructive pulmonary disease): Currently not in exacerbation. Status: Acute Qualifiers: COPD type: COPD with acute exacerbation Qualified Code(s): J44.1 - Chronic obstructive pulmonary disease with (acute) exacerbation (14) Hypokalemia: Status: Acute Additional A&P Information PLAN: I think it is safe to switch patient to Lovenox subcu. We will stop heparin and start Lovenox later this evening. continue high-dose Protonix. Continue ICU monitoring for now. Discussed with patient regarding risks and benefits of opiate analgesics and she voiced understanding. She is okay to continue with her current regimen. Continue Librium and continue monitoring on CIWA protocol. Add senna/Colace. Attestations Medical Necessity Statement*: Patient with high risk for GI bleed and pulmonary emboli requires close ICU monitoring and treatment. Time Spent in Patient Care: 16 - 35 minutes Coding Level of Care Code Acute Master Sheet Clerk for Janeen Ray Diagnoses Pulmonary embolism I26.99 Pancytopenia D61.818 Atypical chest pain R07.89 Chronic alcohol abuse F10.10 Acute alcohol intoxication F10.920 Complication of substance-induced condition: uncomplicated Hepatitis C B19.20 Seizure disorder G40.909 History of GI bleed Z87.19 Obesity (BMI 30.0-34.9) E66.9 Medical non-compliance Z91.19 Pulmonary nodule, right R91.1 Gastritis due to alcohol without hemorrhage K29.20 COPD (chronic obstructive pulmonary disease) J44.1 COPD type: COPD with acute exacerbation Hypokalemia E87.6
[2020-11-07] MEDS: atorvastatin 40 mg Tablet PO (09:32)
[2020-11-07] MEDS: multivitamin therapeutic Tablet 1 TAB PO (09:32)
[2020-11-07] MEDS: magnesium oxide 400 mg tablet PO ×2 (09:32→17:15)
[2020-11-07] MEDS: polyethylene glycol 3350 Pkt 17 gm PO (09:35)
[2020-11-07] MEDS: sennosides-docusate Tablet 2 TAB PO ×2 (09:35→17:15)
--- NOTE | 2020-11-07 09:40 | PC.CHAP ---
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 supervisor dehydrogenation visit [] Patient/Family/Request visit [] Outpatient visit [] Follow-up visit [] Physician referral [] Code/Alert [x] Routine visit [] Staff referral [] Actively dying [] Patient sleeping [] Family support [] [] Out of room [] Palliative care [] [x] Receiving care in room [] Pre-surgical visit [] Trauma [] Long length of stay [x] ICU visit [x] Other: physical therapy working with patient Relational/Emotional Strength [] Patient feels connected with others/family/visitors/staff [] Distress [] Loneliness/isolation [] Abandonment Spirituality of Patient [] Person of Angy [] Attends Sabianist of their Angy [] Believes in Prayer [] Reads Bible or Roman Catholic materials [] There are Spiritual issues to be addressed Senior Software Development Manager Interventions [x] Prayer [] Active listening [] Non-anxious presence [] Spiritual/emotional support [] Crisis/trauma care [] Spiritual counseling [] Bereavement support [] Provided bereavement packet [] Provided Bible/devotional materials [] Provided toy/stuffed animal, coloring book to patient or family member [] Provided Communion [] Anointing/[place] [] Salvation [x] Completed spiritual assessment [] Other: Impact on Illness or Injury [] Angry [] Fearful [] Anxious [] Often cries [] Exhaustion [] Unable to work [] Unable to attend mandaen [] Unable to walk/stand [] Unable to read [] Unable to drive [] Unable to eat/drink [] Unable to sleep [] Unable to be with family [] Patient intubated [] Other: Summary Time spent with patient
[2020-11-07] MEDS: ondansetron 2 mg/ML SDV 2 mL 4 MG IVP (12:19)
[2020-11-07] MEDS: diphenhydrAMINE 25 mg Capsule PO (17:14)
[2020-11-07] MEDS: dexmedetomidine 400 MCG in sodium chloride 0.9% (100 ml) 100 ML IV ×2 (17:16→21:46)
--- NOTE | 2020-11-07 18:45 | PC.NURSE ---
Received bedside report on patient from Alicia Anna RN. Assumed care at this time.
[2020-11-07] MEDS: enoxaparin 100 mg/mL Syringe SUBCUT (21:39)
[2020-11-07] MEDS: sennosides 8.6 mg Tablet 17.2 MG PO (21:39)
[2020-11-07] MEDS: tizanidine 4 mg Tablet 2 MG PO (22:43)
[2020-11-08] VITALS (26 sets, daily range): BP systolic 79–124; BP diastolic 46–95; PULSE 71–97; RESP 11–35; TEMP 36.4–36.7; O2SAT 84–100
[2020-11-08 03:56] LABS: Basophils % 0.7 %; Eosinophils # 0.1 10^3/uL (0.0-0.8); Eosinophils % 2.4 %; Hematocrit 32.1 % (37.0-47.0); Hemoglobin 8.9 g/dL (11.5-15.3); Lymphocytes # 0.9 10^3/uL (0.8-4.8); Lymphocytes % 20.2 %; Mean Corpuscular HGB Conc 27.7 g/dL (30.0-36.0); Mean Corpuscular Hemoglobin 23.4 pg (28.0-34.0); Mean Corpuscular Volume 84.3 fL (81-99); Mean Platelet Volume 10.6 fL (7.4-10.4); Monocytes # 0.5 10^3/uL (0.2-0.9); Monocytes % 10.5 %; Neutrophils # 2.99 10^3/uL (1.8-7.7); Neutrophils % 65.8 %; Nucleated Red Blood Cells % 0 %; Platelet Count 213 10^3/cmm (130-400); Red Blood Count 3.81 10^6/uL (4.1-5.3); Red Cell Distribution Width 23.2 % (12.1-15.1); White Blood Count 4.6 10^3/uL (4.0-10.0)
[2020-11-08] MEDS: chlordiazePOXIDE 25 mg Capsule 50 MG PO ×3 (04:04→16:35)
[2020-11-08 04:09] LABS: Alanine Aminotransferase 24 U/L (0-33); Albumin Level 2.3 g/dL (3.5-5.2); Alkaline Phosphatase 242 IU/L (35-105); Aspartate Amino Transferase 45 U/L (0-32); Blood Urea Nitrogen 6 mg/dL (6-20); Calcium 7.8 mg/dL (8.5-10.5); Carbon Dioxide 27 mmol/L (22-29); Chloride 104 mmol/L (98-107); Globulin 4.4 g/dL (1.3-4.6); Glomerular Filtration Rate 67.4 mL/min (90-130); Glucose 93 mg/dL (65-115); Magnesium 2.1 mg/dL (1.7-2.3); Osmolality Calculated 281 mOsm/kg (285-295); Sodium 137 mmol/L (136-145); Total Bilirubin 0.8 mg/dL (0.15-1.2); Total Protein 6.7 g/dL (6.6-8.7)
[2020-11-08] MEDS: fluticasone nasal spray 16gm Btl 1 SPRAY INTRANASAL ×2 (05:54→18:48)
[2020-11-08] MEDS: levothyroxine 100 mcg Tablet 200 MCG PO (05:55)
[2020-11-08] MEDS: folic acid 1 mg Tablet PO (05:56)
[2020-11-08] MEDS: levETIRAcetam 500 mg Tablet 1000 MG PO ×2 (05:56→18:48)
[2020-11-08] MEDS: levothyroxine 50 mcg Tablet PO (05:57)
[2020-11-08] MEDS: pantoprazole DR 40 mg Tablet PO ×2 (05:57→18:48)
[2020-11-08] MEDS: thiamine 100 mg Tablet PO (05:58)
--- NOTE | 2020-11-08 07:44 | P.PN_ITS ---
Subjective Subjective: Interval history: Patient continues to have chest pain every time she coughs. Denies any other complaints. Her vitals are stable her hemoglobin and platelets are stable as well. She is on Precedex drip this morning. Patient is asking if she can go home. I had discussion with patient regarding opioid use. She is always asking for opiate medications. We discussed for patient to follow-up with her primary care physician and consider seeing pain clinical services professional. She does not appear in any distress yet reports severe pain. Discussed with RN who took care of patient last night and she reports that patient slept well throughout the whole night. Vitals/I&O/Wt Last Vital Signs Temp 97.8 F 11/08/20 00:00 Pulse 71 11/08/20 06:00 Resp 19 H 11/08/20 06:00 BP 98/64 11/08/20 06:00 Pulse Ox 100 11/08/20 06:00 11/07/20 11/08/20 11/08/20 22:59 06:59 14:59 Intake Total 865.87 / 1415.87 330 / 1745.87 Output Total 800 / 800 1300 / 2100 Balance 65.87 / 615.87 -970 / -354.13 Weight last 48 hrs Weight 99.836 kg Weight 95.209 kg Physical Exam Narrative: EXAM NARRATIVE: Lungs overall decreased air movement but otherwise clear. No wheezing rales or rhonchi appreciated. Heart is regular. Abdomen is soft and nontender. No lower extremity pitting edema. Urinary Catheter Management^: Cosme: Cath Placed During This Visit: yes Reason for Continuing Indwelling Catheter: Accurate Measurement of Urinary Output in Critically Ill Patients Urinary Catheter Date of Insertion: 11/05/20 Urinary Catheter Time of Insertion: 00:40 Data : 11/08/20 03:02 11/08/20 03:02 A&P Assessment and plan (1) Pulmonary embolism: Patient does have IVC filter. This could be in situ PE secondary to suspected lung malignancy versus embolizing from IVC itself. Status: Acute (2) Pancytopenia: Ruled out as patient had pancytopenia approximately 1 month ago. Entered by mistake. Status: Acute (3) Atypical chest pain: This appears to be pleuritic related to PE. Acute coronary syndrome felt highly unlikely. Troponin negative and EKG is without acute findings. Status: Acute (4) Chronic alcohol abuse: Status: Acute (5) Acute alcohol intoxication: Status: Acute Qualifiers: Complication of substance-induced condition: uncomplicated Qualified Code(s): F10.920 - Alcohol use, unspecified with intoxication, uncomplicated (6) Hepatitis C: Status: Acute (7) Seizure disorder: Status: Acute (8) History of GI bleed: Fecal occult blood test positive in ER. Status: Acute (9) Obesity (BMI 30.0-34.9): Status: Acute (10) Medical non-compliance: Status: Acute (11) Pulmonary nodule, right: Concerning for malignancy especially with previous history of breast cancer. Status: Acute (12) Gastritis due to alcohol without hemorrhage: Status: Acute (13) COPD (chronic obstructive pulmonary disease): Currently not in exacerbation. Status: Acute Qualifiers: COPD type: COPD with acute exacerbation Qualified Code(s): J44.1 - Chronic obstructive pulmonary disease with (acute) exacerbation (14) Hypokalemia: Status: Acute Additional A&P Information PLAN: Continue Lovenox therapeutic anticoagulation. Again discussed with patient regarding importance of staying abstinent from alcohol. Patient voiced unde rstanding. We will remove Cosme catheter and stop Precedex. Will decrease Librium to 50 mg every [address] scan of the chest was not done because apparently we were unable to get a ac IV line. Her vitals are looking. And patient saturating 100% on 2 L by nasal cannula therefore propagation of PE felt highly unlikely. Patient appears to be exhibiting drug-seeking behavior. I will monitor patient for 1 more day in ICU and if remains stable we could possibly let her go home tomorrow. Attestations Medical Necessity Statement*: Patient with PE and high risk for GI bleed requires close ICU monitoring and treatment. 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
[2020-11-08] MEDS: enoxaparin 100 mg/mL Syringe SUBCUT ×2 (08:59→21:28)
[2020-11-08] MEDS: polyethylene glycol 3350 Pkt 17 gm PO (08:59)
[2020-11-08] MEDS: magnesium oxide 400 mg tablet PO (09:00)
[2020-11-08] MEDS: morphine IR 15 mg Tablet PO (09:00)
[2020-11-08] MEDS: sennosides-docusate Tablet 2 TAB PO (09:00)
[2020-11-08] MEDS: multivitamin therapeutic Tablet 1 TAB PO (09:01)
[2020-11-08] MEDS: atorvastatin 40 mg Tablet PO (09:01)
[2020-11-08] MEDS: budesonide 0.5 mg/2 mL Neb 0.25 MG INHALATION ×2 (09:11→19:39)
[2020-11-08] MEDS: cholecalciferol (vitamin D3) 5,000 unit Tablet 5000 UNIT PO (09:17)
--- NOTE | 2020-11-08 09:21 | PC.SOCIAL ---
IMM Update Pg. 2 of IMM updated. Copy provided to patient.
--- NOTE | 2020-11-08 11:20 | PC.CHAP ---
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 tire maker visit [] Patient/Family/Request visit [] Outpatient visit [] Follow-up visit [] Physician referral [] Code/Alert [] Routine visit [] Staff referral [] Actively dying [] Patient sleeping [] Family support [] [x] Out of room [] Palliative care [] [] Receiving care in room [] Pre-surgical visit [] Trauma [] Long length of stay [] ICU visit [] Other: Relational/Emotional Strength [] Patient feels connected with others/family/visitors/staff [] Distress [] Loneliness/isolation [] Abandonment Spirituality of Patient [] Person of Angy [] Attends Zoroastrian of their Angy [] Believes in Prayer [] Reads Bible or Orthodoxy materials [] There are Spiritual issues to be addressed Venipuncturist Interventions [] Prayer [] Active listening [] Non-anxious presence [] Spiritual/emotional support [] Crisis/trauma care [] Spiritual counseling [] Bereavement support [] Provided bereavement packet [] Provided Bible/devotional materials [] Provided toy/stuffed animal, coloring book to patient or family member [] Provided Communion [] Anointing/[place] [] Salvation [] Completed spiritual assessment [] Other: Impact on Illness or Injury [] Angry [] Fearful [] Anxious [] Often cries [] Exhaustion [] Unable to work [] Unable to attend tenriism [] Unable to walk/stand [] Unable to read [] Unable to drive [] Unable to eat/drink [] Unable to sleep [] Unable to be with family [] Patient intubated [] Other: Summary Time spent with patient
[2020-11-08] MEDS: tizanidine 4 mg Tablet 2 MG PO (11:28)
--- NOTE | 2020-11-08 12:13 | PC.NURSE ---
Change patient's central line dressing. Sutures still intact et stable. Patient tolerated dressing change well. Will continue to monitor.
--- NOTE | 2020-11-08 18:45 | PC.NURSE ---
Received bedside report on patient from Alicia BARRETT. Assumed care at this time.
[2020-11-08] MEDS: diphenhydrAMINE 25 mg Capsule PO (22:11)
[2020-11-09] VITALS (24 sets, daily range): BP systolic 100–125; BP diastolic 59–87; PULSE 86–110; RESP 16–37; TEMP 36.4–36.9; O2SAT 82–98; BMI 39.0
[2020-11-09] MEDS: tizanidine 4 mg Tablet 2 MG PO (01:12)
[2020-11-09] MEDS: diphenhydrAMINE 25 mg Capsule PO (02:16)
[2020-11-09 04:21] LABS: Basophils % 0.6 %; Eosinophils # 0.2 10^3/uL (0.0-0.8); Eosinophils % 3.2 %; Hematocrit 32.8 % (37.0-47.0); Hemoglobin 9.1 g/dL (11.5-15.3); Lymphocytes # 1.2 10^3/uL (0.8-4.8); Lymphocytes % 25.8 %; Mean Corpuscular HGB Conc 27.7 g/dL (30.0-36.0); Mean Corpuscular Hemoglobin 23.5 pg (28.0-34.0); Mean Corpuscular Volume 84.5 fL (81-99); Mean Platelet Volume 10.2 fL (7.4-10.4); Monocytes # 0.6 10^3/uL (0.2-0.9); Monocytes % 12.3 %; Neutrophils # 2.72 10^3/uL (1.8-7.7); Neutrophils % 57.7 %; Nucleated Red Blood Cells % 0 %; Platelet Count 240 10^3/cmm (130-400); Red Blood Count 3.88 10^6/uL (4.1-5.3); Red Cell Distribution Width 24.2 % (12.1-15.1); White Blood Count 4.7 10^3/uL (4.0-10.0)
[2020-11-09 04:41] LABS: Alanine Aminotransferase 21 U/L (0-33); Albumin Level 2.6 g/dL (3.5-5.2); Alkaline Phosphatase 221 IU/L (35-105); Anion Gap 10.3 (5-19); Aspartate Amino Transferase 31 U/L (0-32); Blood Urea Nitrogen 5 mg/dL (6-20); Calcium 8.1 mg/dL (8.5-10.5); Carbon Dioxide 28 mmol/L (22-29); Chloride 106 mmol/L (98-107); Globulin 4.4 g/dL (1.3-4.6); Glomerular Filtration Rate 67.4 mL/min (90-130); Glucose 94 mg/dL (65-115); Osmolality Calculated 287 mOsm/kg (285-295); Potassium 4.3 mmol/L (3.5-5.1); Sodium 140 mmol/L (136-145); Total Bilirubin 0.6 mg/dL (0.15-1.2)
[2020-11-09] MEDS: thiamine 100 mg Tablet PO (06:09)
[2020-11-09] MEDS: levETIRAcetam 500 mg Tablet 1000 MG PO ×2 (06:09→18:09)
[2020-11-09] MEDS: levothyroxine 100 mcg Tablet 200 MCG PO (06:09)
[2020-11-09] MEDS: levothyroxine 50 mcg Tablet PO (06:09)
[2020-11-09] MEDS: morphine IR 15 mg Tablet PO ×2 (06:09→14:00)
[2020-11-09] MEDS: folic acid 1 mg Tablet PO (06:09)
[2020-11-09] MEDS: pantoprazole DR 40 mg Tablet PO ×2 (06:11→18:10)
[2020-11-09] MEDS: cholecalciferol (vitamin D3) 5,000 unit Tablet 5000 UNIT PO (06:12)
[2020-11-09] MEDS: fluticasone nasal spray 16gm Btl 1 SPRAY INTRANASAL ×2 (06:12→18:09)
[2020-11-09] MEDS: budesonide 0.5 mg/2 mL Neb 0.25 MG INHALATION (08:01)
[2020-11-09] MEDS: magnesium oxide 400 mg tablet PO ×2 (08:19→18:09)
[2020-11-09] MEDS: multivitamin therapeutic Tablet 1 TAB PO (08:19)
[2020-11-09] MEDS: atorvastatin 40 mg Tablet PO (08:19)
[2020-11-09] MEDS: enoxaparin 100 mg/mL Syringe SUBCUT ×2 (08:20→19:01)
--- NOTE | 2020-11-09 09:00 | PC.NURSE ---
Patient requested something for anxiety. Patient did not seem to be in distress. Nurse came back into room and patient was asleep and snoring.
--- NOTE | 2020-11-09 09:24 | PC.CHAP ---
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 grant administrator visit [] Patient/Family/Request visit [] Outpatient visit [] Follow-up visit [] Physician referral [] Code/Alert [x] Routine visit [] Staff referral [] Actively dying [] Patient sleeping [] Family support [] [] Out of room [] Palliative care [] [] Receiving care in room [] Pre-surgical visit [] Trauma [] Long length of stay [x] ICU visit [] Other: Relational/Emotional Strength [] Patient feels connected with others/family/visitors/staff [] Distress [] Loneliness/isolation [] Abandonment Spirituality of Patient [] Person of Angy [] Attends Voodoo of their Angy [] Believes in Prayer [] Reads Bible or Orthodoxy materials [] There are Spiritual issues to be addressed Interior Decorator Paperhanging Interventions [x] Prayer [] Active listening [] Non-anxious presence [] Spiritual/emotional support [] Crisis/trauma care [] Spiritual counseling [] Bereavement support [] Provided bereavement packet [] Provided Bible/devotional materials [] Provided toy/stuffed animal, coloring book to patient or family member [] Provided Communion [] Anointing/[place] [] Salvation [x] Completed spiritual assessment [] Other: Impact on Illness or Injury [] Angry [] Fearful [] Anxious [] Often cries [] Exhaustion [] Unable to work [] Unable to attend faith [] Unable to walk/stand [] Unable to read [] Unable to drive [] Unable to eat/drink [] Unable to sleep [] Unable to be with family [] Patient intubated [] Other: Summary Time spent with patient
--- NOTE | 2020-11-09 09:35 | CT_ITS ---
WS: [id number] CTA OF THE CHEST WITH PULMONARY EMBOLISM PROTOCOL TECHNIQUE: High-resolution contrast enhanced CTA of the chest with coronal and sagittal reformatted i mages with pulmonary embolism protocol. MIP images are also reviewed. CLINICAL INFORMATION: PE COMPARISON: CTA November 02, 2020 DLP: 520.[address] scans at [facility] use at least one of these dose optimization techniques: automat ed exposure control; mA and/or kV adjustment per patient size (includes targeted exams where dose is matched to clinical indication); or iterative reconstruction. FINDINGS: Proximal main pulmonary arteries are normal. Again seen is pulmonary embolus in the right upper segme ntal pulmonary artery unchanged from November 02, 2020. This extends slightly into the subsegmental righ t upper lobe pulmonary arteries. Improved filling of the right lower lobe pulmonary arteries today. No visualized left-sided pulmonary emboli. No new pulmonary emboli. Large esophageal hiatal hernia unchanged. Normal caliber thoracic aorta. Lungs are well aerated. No a cute pulmonary infiltrates. Bibasilar atelectasis. Stable right lower lobe pulmonary opacity along th e fissure measuring 10 mm. Adrenal glands are normal. Cholecystectomy clips. CT/CT angio chest PE protcl [id number] IMPRESSION: 1. Again seen is pulmonary embolus in the right upper lobe segmental and subse gmental pulmonary arteries unchanged from previous. Embolus in the medial basal segment right lower lobe appears improved. No new pulmonary emboli. 2. No acute pulmonary infiltrates. 3. Suspicious 12 mm opacity right lower lobe along the fissure with slightly s piculated margins. This is increased in size since 2017. This was FDG negative on the prior PET/CT in 2018. Recommend additional further evaluation with PET/C T considering increase in size and spiculation. 4. Large esophageal hiatal hernia. Notified Sreedhar Blackwood MD at 11/09/2020 4:06 PM.
[2020-11-09] MEDS: chlordiazePOXIDE 25 mg Capsule 50 MG PO ×2 (10:21)
--- NOTE | 2020-11-09 11:55 | PC.NURSE ---
Pupils are unequal. Dr. tierney
--- NOTE | 2020-11-09 13:58 | PC.NURSE ---
Patient continues to remove herself off of monitors. Education provided
[2020-11-09] MEDS: iohexol 350 mg/mL 100 mL Btl IV (15:04)
--- NOTE | 2020-11-09 15:19 | PC.NURSE ---
Patient taken to CT by this nurse. Tolerated well
--- NOTE | 2020-11-09 16:31 | PC.NURSE ---
Patient has a brief episode of coughing that lasted less than 5 minuets. When this nurse entered room patient was saying, get me to a doctor, now. This nurse put a new oxygen probe on forehead and read oxygen level at 99%. Patients lungs sounds are clear.
--- NOTE | 2020-11-09 16:56 | P.DS_ITS ---
Discharge Providers Date of Admission: 11/03/20 16:52 Date of Discharge: November 09, 2020 Attending Provider at Admission: Sreedhar Blackwood MD Attending Provider at Discharge: Sreedhar Blackwood MD Primary Care Provider: Octaviano Sue MD Diagnoses at Discharge Discharge Diagnosis (1) Pulmonary embolism: Status: Acute (2) Atypical chest pain: Status: Acute Permanent problem details: Pleuritic, Musculoskeletal versus PE (3) Chronic alcohol abuse: Status: Acute (4) Acute alcohol intoxication: Status: Acute Qualifiers: Complication of substance-induced condition: uncomplicated Qualified Code(s): F10.920 - Alcohol use, unspecified with intoxication, uncomplicated (5) Hepatitis C: Status: Acute (6) Seizure disorder: Status: Acute (7) History of GI bleed: Status: Acute (8) Obesity (BMI 30.0-34.9): Status: Acute (9) Medical non-compliance: Status: Acute (10) Pulmonary nodule, right: Status: Acute Permanent problem details: Concern for malignancy (11) Gastritis due to alcohol without hemorrhage: Status: Acute (12) COPD (chronic obstructive pulmonary disease): Status: Acute Permanent problem details: -oxygen dependent Qualifiers: COPD type: COPD with acute exacerbation Qualified Code(s): J44.1 - Chronic obstructive pulmonary disease with (acute) exacerbation (13) Hypokalemia: Status: Acute Reason for Visit Reason for Visit: SOB Hospital Course Hospital Course Patient with alcohol use disorder and previous history of GI bleed presents with pleuritic chest pain secondary to PE. Patient was admitted to ICU and started on high-dose Protonix. She was initially treated with heparin drip and required 1 unit of PRBC transfusion as patient likely was hemodiluted. Her hemoglobin remained stable and actually gradually improved. I had extensive discussion with patient regarding risks and benefits of anticoagulation. Patient voiced understanding and wants to continue with anticoagulation for treatment of PE. Patient reports that she is not going to drink. Reports that she is usually drinking because of chronic pain. I will prescribe patient morphine to be used as needed and patient was told to arrange evaluation by pain clinic. Patient did have episodes of withdrawal and was treated with Precedex drip and Librium. She gradually improved. I will continue patient on Librium for 3 more days. I have discussed with Dr. Cr who will see patient early next week. Dr. Cr is planning to perform PET/CT for concerning pulmonary nodule. Dr. Cr is okay to continue therapeutic Lovenox. I had multiple times discussed with patient importance not to drink alcohol as she may develop alcohol induced gastritis and have life-threatening GI bleed. Physical Exam Narrative: EXAM NARRATIVE: Patient's lungs are clear and heart is regular. Abdomen is soft and nontender with positive bowel sounds. Urinary Catheter Management^: Cosme: Cath Placed During This Visit: yes, but has since been removed by the nurse Reason for Continuing Indwelling Catheter: Accurate Measurement of Urinary Output in Critically Ill Patients Urinary Catheter Date of Insertion: 11/05/20 Urinary Catheter Time of Insertion: 00:40 Date Urinary Catheter Removed: 11/08/20 Time Urinary Catheter Discontinued: 17:00 Discharge Data Data Completed and Pending: Completed Studies During Hospitalization Category Date Time Status CTA chest [CT ang io chest PE protcl [id number]] Routine Cat Scan 11/09/20 09:35 Completed XR chest 1V nichole ble [id number] Stat Exams 11/03/20 18:10 Completed XR chest 1V nichole ble [id number] Urgent Exams 11/03/20 11:07 Completed Labs from last 24 hours 11/09/20 11/09/20 04:05 04:05 WBC 4.7 RBC 3.88 L Hgb 9.1 L Hct 32.8 L MCV 84.5 MCH 23.5 L MCHC 27.7 L RDW 24.2 H Plt Count 240 MPV 10.2 Neut % (Auto) 57.7 Lymph % (Auto) 25.8 [place] % (Auto) 12.3 Eos % (Auto) 3.2 Baso % (Auto) 0.6 Neut # (Auto) 2.72 Lymph # (Auto) 1.2 [place] # (Auto) 0.6 Eos # (Auto) 0.2 Baso # (Auto) 0.0 Nucleated RBC % (a uto) 0 Nucleated RBCs # 0.0 Sodium 140 Potassium 4.3 Chloride 106 Carbon Dioxide 28 Anion Gap 10.3 BUN 5 L Creatinine 0.9 GFR Calculation 67.4 L Glucose 94 Calculated Osmolal ity 287 Calcium 8.1 L Magnesium 2.0 Total Bilirubin 0.6 AST 31 ALT 21 Alkaline Phosphata se 221 H Total Protein 7.0 Albumin 2.6 L Globulin 4.4 Vitals: Last Vital Signs Temp 98.5 F 11/09/20 06:00 Pulse 104 H 11/09/20 16:01 Resp 16 11/09/20 16:01 BP 100/59 11/09/20 15:00 Pulse Ox 98 11/09/20 16:01 Discharge Plan Discharge Patient Disposition: Home Condition: Stable Prescriptions: New morphine 15 mg Tablet 15 mg PO Q12H PRN (Reason: Severe Pain) Qty: 20 RF: 0 chlordiazepoxide HCl 25 mg capsule See Rx Instructions .ROUTE .COMPLEX Qty: 6 RF: 0 enoxaparin 100 mg/mL Syringe 100 mg SUBCUT Q12H Qty: 60 RF: 0 sennosides-docusate sodium 8.6-50 mg Tablet 1 tab-cap PO BID Qty: 60 RF: 0 Continued epinephrine [EpiPen 2-Tim] 0.3 mg/0.3 mL auto-injector 0.3 mg IM PRN PRN (Reason: Allergic Reaction) RF: 0 levetiracetam [Keppra] 500 mg tablet 1,000 mg PO BID@0600,1800 RF: 0 albuterol sulfate [Ventolin HFA] 90 mcg/actuation HFA aerosol inhaler See Rx Instructions .ROUTE .COMPLEX Qty: 18 RF: 0 furosemide 40 mg tablet 40 mg PO BID@0600,1800 RF: 0 potassium chloride [Klor-Con M20] 20 mEq tablet,ER particles/crystals 20 meq PO BID@0600,1800 RF: 0 budesonide 0.25 mg/2 mL suspension for nebulization 0.25 mg INHALATION BID@0600,1800 RF: 0 folic acid 1 mg tablet 1 mg PO DAILY@0600 RF: 0 fluticasone propionate [Flonase Allergy Relief] 50 mcg/actuation spray,suspension 1 spray INTRANASAL BID@0600,1800 RF: 0 cholecalciferol (vitamin D3) 125 mcg (5,000 unit) tablet 5,000 unit PO DAILY@0600 RF: 0 thiamine mononitrate (vit B1) [Vitamin B-1 (mononitrate)] 100 mg tablet 100 mg PO DAILY@0600 RF: 0 Spiriva Respimat 2.5 mcg/actuation mist 2 puff INHALATION DAILY@0600 RF: 0 levothyroxine 200 mcg capsule 200 mcg PO DAILY@0600 RF: 0 tizanidine [Zanaflex] 2 mg capsule 2 mg PO Q12H PRN (Reason: muscle spasticity) Qty: 10 RF: 0 ipratropium-albuterol 0.5 mg-3 mg(2.5 mg base)/3 mL solution for nebulization 3 ml INHALATION Q6H Qty: 15 RF: 0 albuterol sulfate 0.63 mg/3 mL solution for nebulization 0.63 mg INHALATION Q4H PRN (Reason: Shortness Of Breath) RF: 0 Incruse Ellipta 62.5 mcg/actuation blister with device 1 inh INHALATION DAILY@0600 RF: 0 clonazepam 0.5 mg tablet 0.25 mg PO BID PRN (Reason: anxiety) Qty: 14 RF: 0 polyethylene glycol 3350 17 gram Powder In Packet 17 g PO DAILY Qty: 30 RF: 0 liothyronine 25 mcg Tablet 50 mcg PO DAILY Qty: 30 RF: 0 magnesium oxide 400 mg (241.3 mg magnesium) Tablet 400 mg PO BID Qty: 60 RF: 0 levothyroxine 50 mcg Tablet 50 mcg PO DAILY@0600 Qty: 30 RF: 0 multivitamin with folic acid [Thera] 400 mcg Tablet 1 tab PO DAILY Qty: 30 RF: 0 atorvastatin 40 mg Tablet 40 mg PO DAILY Qty: 30 RF: 0 pantoprazole 40 mg tablet,delayed release (DR/EC) 40 mg PO BID@0600,1800 Qty: 60 RF: 0 Discontinued levofloxacin 750 mg Tablet 750 mg PO DAILY@0600 Qty: 5 RF: 0 Discharge Orders: Discharge Order (Routine); Ordered 11/09/20 Ordered By: Sreedhar Blackwood Referrals: Octaviano Sue MD [Primary Care Provider] - 4-7 days Arvind Cr MD [Hospitalist] - 4-7 days Discharge Diet: Advance as tolerated Discharge Activity: Increase activity as tolerated Activity Restrictions/Additional Instructions: Please call your doctor or present to emergency department if your condition worsens or you develop diarrhea, lightheadedness, fatigue or see blood in your stool or black stool. Please arrange follow-up with pain clinic as soon as possible. Please follow-up with Dr. Cr early next week. He is aware and will be waiting for you. Please absolutely avoid drinking alcohol or taking NSAIDs or steroids due to high risk for life-threatening GI bleed as we have discussed. 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
[2020-11-09] MEDS: chlordiazePOXIDE 25 mg Capsule PO (17:25)
[2020-11-09] MEDS: sennosides-docusate Tablet 2 TAB PO (18:10)
== END 2020-11-09 19:00 | disposition home or self-care (01) | DRG 176 ==
LOC: ER 17:02 → ICU 19:35
PROVIDERS: Internal Medicine; Admitting Provider Internal Medicine; Emergency Provider Physician Assistant; PCP Internal Medicine; Visit Provider Internal Medicine
DX: I26.99 Other pulmonary embolism without acute cor pulmonale (principal); F10.239 Alcohol dependence with withdrawal, unspecified; J44.1 Chronic obstructive pulmonary disease with (acute) exacerbation; I13.0 Hypertensive heart and chronic kidney disease with heart failure and stage 1 through stage 4 chronic kidney disease, or unspecified chronic kidney disease; I50.32 Chronic diastolic (congestive) heart failure; D61.818 Other pancytopenia; F10.229 Alcohol dependence with intoxication, unspecified; Y90.8 Blood alcohol level of 240 mg/100 ml or more; G40.909 Epilepsy, unspecified, not intractable, without status epilepticus; Z85.3 Personal history of malignant neoplasm of breast; Z92.21 Personal history of antineoplastic chemotherapy; Z92.3 Personal history of irradiation; Z99.81 Dependence on supplemental oxygen; Z95.828 Presence of other vascular implants and grafts; Z86.718 Personal history of other venous thrombosis and embolism; D50.9 Iron deficiency anemia, unspecified; K22.70 Barrett's esophagus without dysplasia; F31.9 Bipolar disorder, unspecified; N18.30 Chronic kidney disease, stage 3 unspecified; B19.20 Unspecified viral hepatitis C without hepatic coma; E03.9 Hypothyroidism, unspecified; Z86.711 Personal history of pulmonary embolism; Z79.51 Long term (current) use of inhaled steroids; G89.29 Other chronic pain; E87.6 Hypokalemia; K29.20 Alcoholic gastritis without bleeding; R91.8 Other nonspecific abnormal finding of lung field; Z91.14 Patient's other noncompliance with medication regimen; E66.9 Obesity, unspecified; Z68.39 Body mass index [BMI] 39.0-39.9, adult; Z89.021 Acquired absence of right finger(s)
CPT/HCPCS: 36415; 36430; 36592; 51702; 71045; 71275; 80053; 80306; 80307; 81001; 81003; 82140; 83690; 83735; 83880; 84484; 85014; 85018; 85025; 85049; 85378; 85610; 85730; 86850; 86900; 86920; 87086; 93005; 94640; 96361; 96372; 96374; 96375; 96376; 97110; 97116; 97163; 97530; 99284; 99285; C9113; J1644; J1650; J1940; J2060; J2270; J2405; J7030; J7611; J7626; P9016; Q9967

== ENCOUNTER 2021-01-19 18:11 | Emergency (ER) | payer MEDICARE, MEDICAID, SELFPAY ==
--- NOTE | 2021-01-19 18:15 | XRR_ITS ---
PROCEDURE INFORMATION: Exam: XR Chest Exam date and time: 01/19/2021 6:18 PM Age: 45 years old Clinical indication: Dyspnea and shortness of breath; Prior surgery; Surgery type: Previously had port - L side; Patient HX: SOB, cough. PT reports HX lung masses TECHNIQUE: Imaging protocol: XR of the chest. Views: 1 view. COMPARISON: CR (CHEST, ) 11/03/2020 6:18 PM FINDINGS: Lungs: Atelectasis in the lingula and left lower lobe. The lungs are otherwise clear. Pleural spaces: Unremarkable. No pleural effusion. No pneumothorax. Heart/Mediastinum: Unremarkable. No cardiomegaly. Bones/joints: Unremarkable. Organs: Large hiatal/gastric hernia. Stable 1.2 cm nodule in the right lower lobe. XR/XR chest 1V portable [id number] IMPRESSION: 1. No acute finding. 2. 1.2 cm nodule in the right lung base. Please refer to CTA chest report on 11/02/2020 for recommended follow-up.
[2021-01-19 18:19] VITALS: BP 104/65; PULSE 113; RESP 20; TEMP 37.1; O2SAT 92; BMI 39.4
[2021-01-19 18:50] VITALS: BP 109/89; PULSE 114; RESP 27; O2SAT 97
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
--- NOTE | 2021-01-19 19:25 | CTR_ITS ---
PROCEDURE INFORMATION: Exam: CT Head Without Contrast Exam date and time: 01/19/2021 7:26 PM Age: 45 years old Clinical indication: Pain and injury or trauma; Fall; Blunt trauma (contusions or hematomas); Headache TECHNIQUE: Imaging protocol: Computed tomography of the head without contrast. Radiation optimization: All CT scans at this facility use at least one of these dose optimization techniques: automated exposure control; mA and/or kV adjustment per patient size (includes targeted exams where dose is matched to clinical indication); or iterative reconstruction. COMPARISON: CT head wo con* [id number] 10/04/2020 11:46 PM RADIATION DOSE METRICS: Total DLP (mGy-cm): 899.5 FINDINGS: Brain: Mild diffuse cortical volume loss. No abnormal brain attenuation. No intracranial hemorrhage. Cerebral ventricles: No ventriculomegaly. Bones/joints: Unremarkable. No acute fracture. Paranasal sinuses: Visualized sinuses are unremarkable. No fluid levels. Mastoid air cells: Visualized mastoid air cells are well aerated. Soft tissues: Possible small left frontal scalp contusion. CT/CT head wo con* [id number] IMPRESSION: 1. No acute intracranial abnormality. Radiation Dose CTDIVOL = (mGy): DLP = 899.5 (mGy-cm)
[2021-01-19 19:34] LABS: Basophils # 0.1 10^3/uL (0.0-0.1); Basophils % 1.2 %; Eosinophils # 0.2 10^3/uL (0.0-0.8); Eosinophils % 2.4 %; Hematocrit 28.5 % (37.0-47.0); Hemoglobin 8.1 g/dL (11.5-15.3); Lymphocytes # 1.6 10^3/uL (0.8-4.8); Lymphocytes % 22.8 %; Mean Corpuscular HGB Conc 28.4 g/dL (30.0-36.0); Mean Corpuscular Hemoglobin 24.5 pg (28.0-34.0); Mean Corpuscular Volume 86.1 fL (81-99); Mean Platelet Volume 8.8 fL (7.4-10.4); Monocytes # 0.6 10^3/uL (0.2-0.9); Monocytes % 8.8 %; Neutrophils # 4.37 10^3/uL (1.8-7.7); Neutrophils % 64.4 %; Nucleated Red Blood Cells % 0 %; Platelet Count 245 10^3/cmm (130-400); Red Blood Count 3.31 10^6/uL (4.1-5.3); Red Cell Distribution Width 23.1 % (12.1-15.1); White Blood Count 6.8 10^3/uL (4.0-10.0)
[2021-01-19 20:04] LABS: Troponin(5th) Baseline 7 ng/L (0-10)
[2021-01-19 20:09] VITALS: PULSE 106; RESP 19; O2SAT 94
[2021-01-19] MEDS: ipratropium-albuterol 3 mL Neb INHALATION (20:09)
[2021-01-19 20:11] LABS: Alanine Aminotransferase 19 U/L (0-33); Albumin Level 2.4 g/dL (3.5-5.2); Alkaline Phosphatase 312 IU/L (35-105); Anion Gap 15.8 (5-19); Aspartate Amino Transferase 54 U/L (0-32); Blood Urea Nitrogen 2 mg/dL (6-20); Calcium 6.4 mg/dL (8.5-10.5); Carbon Dioxide 26 mmol/L (22-29); Chloride 98 mmol/L (98-107); Globulin 3.4 g/dL (1.3-4.6); Glomerular Filtration Rate 90.1 mL/min (90-130); Glucose 116 mg/dL (65-115); NT Pro B Type Natriuretic Pept 137 pg/mL (0-125); Osmolality Calculated 281 mOsm/kg (285-295); Sodium 137 mmol/L (136-145); Total Bilirubin 0.3 mg/dL (0.15-1.2); Total Protein 5.8 g/dL (6.6-8.7)
[2021-01-19 20:15] VITALS: PULSE 105
--- NOTE | 2021-01-19 20:15 | ECG_ITS ---
[facility] Test Date: 2021-01-19 Pat Name: Delores Mckeon Department: Room: Gender: Female Manager Games: : 1975 Requested By: Navarro Plata Order Number: [id number] Garland MD: Ravinder House M.D. Measurements Intervals [place] Rate: 103 P: -9 NM: 154 QRS: -9 QRSD: 93 T: 103 QT: 276 QTc: 362 Interpretive Statements SINUS TACHYCARDIA LOW QRS VOLTAGE IN PRECORDIAL LEADS [QRS DEFLECTION < 1.0 mV IN CHEST LEADS] POSSIBLE ANTERIOR MYOCARDIAL INFARCTION , OF INDETERMINATE AGE [30 ms Q WAVE IN V3/V4, OR R < 0.2 mV IN V4] Compared to ECG 11/06/2020 22:08:48 Myocardial infarct finding now present Sinus rhythm no longer present ST (T wave) deviation no longer present Electronically Signed On 01-20-2021 0:11:09 CDT by Ravinder House M.D. [id number]
[2021-01-19] MEDS: ondansetron 2 mg/ML SDV 2 mL 4 MG IVP (20:18)
[2021-01-19] MEDS: morphine 4 mg/mL SDV 1 mL IVP ×2 (20:18→20:50)
[2021-01-19] MEDS: FUROsemide 10 mg/mL SDV 4mL 40 MG IVP (20:20)
[2021-01-19 20:21] VITALS: BP 95/71; PULSE 104; RESP 27; O2SAT 95
[2021-01-19 20:26] LABS: Potassium 2.8 mmol/L (3.5-5.1)
[2021-01-19] MEDS: potassium chloride ER 20 mEq Tablet 40 MEQ PO (20:39)
[2021-01-19 20:40] VITALS: BP 112/70; PULSE 108; RESP 20; O2SAT 95
[2021-01-19] MEDS: promethazine 25 mg/mL SDV 1 mL 12.5 MG IM (20:50)
== END 2021-01-19 21:06 | disposition home or self-care (01) ==
PROVIDERS: Emergency Provider Emergency Medicine; PCP Internal Medicine
DX: R06.00 Dyspnea, unspecified (principal); E87.6 Hypokalemia; N18.30 Chronic kidney disease, stage 3 unspecified; J44.9 Chronic obstructive pulmonary disease, unspecified; I50.30 Unspecified diastolic (congestive) heart failure; Z86.19 Personal history of other infectious and parasitic diseases; Z77.22 Contact with and (suspected) exposure to environmental tobacco smoke (acute) (chronic)
CPT/HCPCS: 70450; 71045; 80053; 83880; 84484; 85025; 93005; 94640; 96374; 96375; 96376; 99284; J1940; J2270; J2405; J2550

== ENCOUNTER 2021-01-23 21:04 | Inpatient (IN) | payer MEDICARE, MEDICAID, SELFPAY ==
[2021-01-23 21:24] VITALS: BP 128/68; PULSE 114; RESP 19; TEMP 36.7; O2SAT 93; BMI 40.7
--- NOTE | 2021-01-23 21:40 | CTR_ITS ---
PROCEDURE INFORMATION: Exam: CT Abdomen And Pelvis With Contrast Exam date and time: 01/23/2021 10:25 PM Age: 45 years old Clinical indication: Abdominal pain; Localized; Right lower quadrant (rlq); Prior surgery; Surgery type: Gb, hyst; Patient HX: HX. Breast and cervical cancer; Additional info: Rlq pain TECHNIQUE: Imaging protocol: Computed tomography of the abdomen and pelvis with contrast. Radiation optimization: All CT scans at this facility use at least one of these dose optimization techniques: automated exposure control; mA and/or kV adjustment per patient size (includes targeted exams where dose is matched to clinical indication); or iterative reconstruction. Contrast material: OMNI 300; Contrast volume: 95 ml; Contrast route: INTRAVENOUS (IV); COMPARISON: CT abdomen pelvis w con* [id number] 10/02/2020 6:03 AM RADIATION DOSE METRICS: Total DLP (mGy-cm): 1786.72 FINDINGS: Mediastinal space: Stable moderate to large intrathoracic hiatal hernia with prominent surrounding mesenteric fat. Liver: Severe fatty infiltration of the liver. Gallbladder and bile ducts: Stable cholecystectomy. Pancreas: Radiographic resolution of previously noted pancreatitis. Spleen: Normal. No splenomegaly. Adrenal glands: Normal. No mass. Kidneys and ureters: Normal. No hydronephrosis. Stomach and bowel: Severe colonic diverticulosis. Appendix: No evidence of appendicitis. Intraperitoneal space: Unremarkable. No free air. No significant fluid collection. Vasculature: Stable IVC filter. One or more calcified pelvic phleboliths. Lymph nodes: Interval inflammation in the region of right external iliac lymph node anterior to the external iliac vessels suggesting mild lymphadenitis. Axial series 2, image 72. Additional minimal right inguinal lymph node inflammation. Probably reactive. Urinary bladder: Unremarkable as visualized. Reproductive: Unremarkable as visualized. Bones/joints: Unremarkable. No acute fracture. Soft tissues: Stable umbilical/periumbilical hernia containing fat. CT/CT abdomen pelvis w con* [id number] IMPRESSION: 1. Stable moderate to large intrathoracic hiatal hernia with prominent surrounding mesenteric fat. 2. Radiographic resolution of previously noted pancreatitis. 3. Stable IVC filter. 4. Severe colonic diverticulosis. 5. Interval inflammation in the region of right external iliac lymph node anterior to the external iliac vessels suggesting mild lymphadenitis. Axial series 2, image 72. Additional minimal right inguinal lymph node inflammation. Probably reactive. COMMENTS: For patients with an IVC filter, recommend assessment for a management plan for the patient's IVC filter. If there is no established management plan, recommend referral to an interventional clinician on a nonemergent basis for evaluation. Radiation Dose CTDIVOL = (mGy): DLP = 1786.72 (mGy-cm)
--- NOTE | 2021-01-23 21:40 | XRR_ITS ---
PROCEDURE INFORMATION: Exam: XR Chest Exam date and time: 01/23/2021 9:55 PM Age: 45 years old Clinical indication: Cough and shortness of breath; Patient HX: HX cervical/breast cancers TECHNIQUE: Imaging protocol: XR of the chest. Views: 1 view. COMPARISON: CR (CHEST, ) 01/19/2021 6:18 PM FINDINGS: Lungs: Unremarkable. No consolidation. Pleural spaces: Unremarkable. No pleural effusion. No pneumothorax. Heart/Mediastinum: Stable large intrathoracic hiatal hernia. Bones/joints: Unremarkable. XR/XR chest 1V portable [id number] IMPRESSION: No acute findings.
[2021-01-23] MEDS: metoclopramide 5 mg/mL SDV 2 mL 10 MG IVP (22:06)
[2021-01-23 22:10] LABS: Basophils # 0.1 10^3/uL (0.0-0.1); Basophils % 1.5 %; Eosinophils # 0.5 10^3/uL (0.0-0.8); Eosinophils % 8.3 %; Hematocrit 26.6 % (37.0-47.0); Hemoglobin 7.7 g/dL (11.5-15.3); Lymphocytes # 1.1 10^3/uL (0.8-4.8); Lymphocytes % 18.1 %; Mean Corpuscular HGB Conc 28.9 g/dL (30.0-36.0); Mean Corpuscular Hemoglobin 24.9 pg (28.0-34.0); Mean Corpuscular Volume 86.1 fL (81-99); Mean Platelet Volume 9.1 fL (7.4-10.4); Monocytes # 0.3 10^3/uL (0.2-0.9); Monocytes % 5.6 %; Neutrophils % 65.8 %; Nucleated Red Blood Cells % 0 %; Platelet Count 290 10^3/cmm (130-400); Red Blood Count 3.09 10^6/uL (4.1-5.3); Red Cell Distribution Width 21.9 % (12.1-15.1); White Blood Count 5.9 10^3/uL (4.0-10.0)
[2021-01-23] MEDS: FUROsemide 10 mg/mL SDV 4mL 40 MG IVP (22:11)
[2021-01-23 22:12] VITALS: RESP 18; O2SAT 97
[2021-01-23] MEDS: morphine 4 mg/mL SDV 1 mL IVP (22:12)
[2021-01-23] MEDS: diphenhydrAMINE 50 mg/mL SDV 1mL 25 MG IVP (22:12)
[2021-01-23] MEDS: iohexol 300 mg/mL 100 mL Btl IV (22:45)
[2021-01-23 22:51] LABS: Alanine Aminotransferase 19 U/L (0-33); Albumin Level 2.3 g/dL (3.5-5.2); Alkaline Phosphatase 331 IU/L (35-105); Anion Gap 19.1 (5-19); Aspartate Amino Transferase 39 U/L (0-32); Blood Urea Nitrogen 3 mg/dL (6-20); Calcium 6.3 mg/dL (8.5-10.5); Carbon Dioxide 24 mmol/L (22-29); Chloride 96 mmol/L (98-107); Globulin 3.4 g/dL (1.3-4.6); Glomerular Filtration Rate 107.6 mL/min (90-130); Glucose 95 mg/dL (65-115); Lipase 9 U/L (13-60); NT Pro B Type Natriuretic Pept 144 pg/mL (0-125); Osmolality Calculated 278 mOsm/kg (285-295); Potassium 3.1 mmol/L (3.5-5.1); Sodium 136 mmol/L (136-145); Total Bilirubin 0.5 mg/dL (0.15-1.2); Total Protein 5.7 g/dL (6.6-8.7)
[2021-01-23 23:07] LABS: Glucose Urine UA Norm (Normal); Protein Urine Neg (Negative); Urine Appearance Clear (CLEAR); Urine Color Yellow (Yellow); pH Urine 5 (5-7)
[2021-01-23 23:08] LABS: Add Urine Microscopic? YES; Bilirubin Urine Neg (Negative); Blood Urine 3+ (Negative); Ketones Urine Negative (Negative); Leukocyte Esterase Urine Trace (Negative); Nitrate Urine Positive (Negative); Urobilinogen Urine Norm (Negative)
[2021-01-23 23:09] LABS: Bacteria Urine 4+ /hpf; RBC Urine 25-40 /hpf (0-2)
[2021-01-23 23:10] LABS: Add Urine Culture? Yes
[2021-01-24] VITALS (14 sets, daily range): BP systolic 103–144; BP diastolic 53–89; PULSE 90–117; RESP 16–22; TEMP 36.4–37.2; O2SAT 91–100
[2021-01-24] MEDS: ondansetron 2 mg/ML SDV 2 mL 4 MG IVP ×2 (00:25→05:24)
[2021-01-24] MEDS: morphine 4 mg/mL SDV 1 mL IVP ×2 (00:43→05:24)
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
[2021-01-24] MEDS: LORazepam 2 mg/mL INJ 1 mL 1 MG IVP ×2 (01:58→05:24)
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
[2021-01-24] MEDS: levothyroxine 200 mcg Tablet PO (05:20)
[2021-01-24] MEDS: levETIRAcetam 500 mg Tablet 1000 MG PO ×2 (05:20→17:40)
[2021-01-24] MEDS: thiamine 100 mg Tablet PO (05:20)
[2021-01-24] MEDS: folic acid 1 mg Tablet PO (05:20)
[2021-01-24] MEDS: levothyroxine 50 mcg Tablet PO (05:20)
[2021-01-24] MEDS: pantoprazole DR 40 mg Tablet PO ×2 (05:20→17:40)
[2021-01-24] MEDS: iron polysaccharide complex 150 mg Capsule PO (08:26)
[2021-01-24] MEDS: doxycycline 100 mg Tablet PO (08:26)
[2021-01-24] MEDS: potassium chloride oral liq 20 mEq/15 mL UDC 40 MEQ PO (08:27)
--- NOTE | 2021-01-24 10:44 | PC.CHAP ---
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 operations forester visit [] Patient/Family/Request visit [] Outpatient visit [] Follow-up visit [] Physician referral [] Code/Alert [x] Routine visit [] Staff referral [] Actively dying [] Patient sleeping [] Family support [] [] Out of room [] Palliative care [] [] Receiving care in room [] Pre-surgical visit [] Trauma [] Long length of stay [] ICU visit [] Other: Relational/Emotional Strength [] Patient feels connected with others/family/visitors/staff [] Distress [] Loneliness/isolation [] Abandonment Spirituality of Patient [] Person of Angy [] Attends Yarsani of their Angy [] Believes in Prayer [] Reads Bible or Anabaptism materials [] There are Spiritual issues to be addressed Nursing Clinical Director Interventions [] Prayer [] Active listening [] Non-anxious presence [] Spiritual/emotional support [] Crisis/trauma care [] Spiritual counseling [] Bereavement support [] Provided bereavement packet [] Provided Bible/devotional materials [] Provided toy/stuffed animal, coloring book to patient or family member [] Provided Communion [] Anointing/[place] [] Salvation [x] Completed spiritual assessment [] Other: Impact on Illness or Injury [] Angry [] Fearful [] Anxious [] Often cries [] Exhaustion [] Unable to work [] Unable to attend shinto [] Unable to walk/stand [] Unable to read [] Unable to drive [] Unable to eat/drink [] Unable to sleep [] Unable to be with family [] Patient intubated [] Other: Summary patient very sick says she hurts stomach Time spent with patient 10 min
[2021-01-24] MEDS: diphenhydrAMINE 25 mg Capsule PO (15:29)
[2021-01-24] MEDS: prochlorperazine 10 mg Tablet 5 MG PO (15:29)
--- NOTE | 2021-01-24 17:58 | PM.PN ---
Subjective Subjective: Interval history: Continues having pain in right lower quadrant. Nausea. Very poor oral intake. Had minimal amount of broth, minimal amount of root beer. Had a bowel movement which she says was liquid, although not witnessed by her the nurse. Vitals/I&O/Wt Last Vital Signs Temp 98.1 F 01/24/21 16:07 Pulse 95 01/24/21 16:07 Resp 18 01/24/21 16:07 BP 117/81 01/24/21 16:07 Pulse Ox 100 01/24/21 16:07 01/24/21 01/24/21 01/24/21 06:59 14:59 22:59 Intake Total 490 / 490 Output Total 0 / 0 Balance 0 / 0 490 / 490 Weight last 48 hrs Weight 104.326 kg Physical Exam Const: COMMON NORMALS: no acute distress and patient oriented x3 HENMT: COMMON NORMALS: oropharynx normal Neck/C-Spine: COMMON NORMALS: no JVD Resp: COMMON NORMALS: normal respiratory effort and clear to auscultation bilaterally AUSCULTATION: clear to auscultation bilaterally Cardio: COMMON NORMALS: no JVD, regular rhythm, S1 normal heart sound present, S2 normal heart sound present and No murmurs present (Cardio) RHYTHM: regular rhythm HEART SOUNDS: S1 normal heart sound present and S2 normal heart sound present GI: COMMON NORMALS: Normal to inspection, nondistended, normoactive bowel sounds present, Soft to palpation and non-tender PALPATION: Yes Soft to palpation Extremity: COMMON NORMALS: no joint enlargement and no pedal edema Neuro: COMMON NORMALS: patient oriented x3 and moves all extremities Skin: COMMON NORMALS: no rashes or lesions noted GENERAL SKIN EXAM: no rashes or lesions noted Data : 01/23/21 22:05 01/23/21 22:05 A&P Assessment and plan (1) Abdominal pain: Persistent right lower quadrant abdominal pain. Discussed with her results of the CT. Hiatal hernia is present, but not related to location of her pain. Lipase was normal. Resolution of pancreatitis noted on CT. IVC filter on CT appears stable. Pain does not appear related to her hip joint as there is no pain with abduction, external, internal rotation. Pain/tenderness in the right groin as well. Will obtain venous duplex. She also reports having a loose stool today. Very poor appetite. Persistent severe nausea. Loose stool not witnessed by the nurse. Has had only one episode. Requested let us know if she has more so we can collect sample. Continue pain, nausea control. As she has not eaten barely anything we will provide IV fluid support. Mesenteric lymphadenitis noted Status: Acute (2) Intractable nausea and vomiting: Not responsive to Zofran. Reglan contraindicated due to seizure history. Discussed with pharmacy. Adding Compazine as needed. Monitor. Status: Acute (3) Acute hypokalemia: Replace. Status: Acute (4) Obesity (BMI 30.0-34.9): Status: Acute Additional A&P Information Hiatal hernia IVC filter Oxygen dependent COPD without acute exacerbation currently saturating well on 4 L nasal cannula Acute on chronic anemia: Patient previous EGD revealed gastritis, has had multiple blood transfusions in the past, we will keep her on Protonix, will transfuse if hemoglobin less than 7. patient is denying active GI bleed, continue thiamine and folic acid as well Pyuria: Denies urinary symptoms. Full urine culture. Attestations Medical Necessity Statement*: Admission of over 2 midnights needed for assessment and management of persistent right lower quadrant abdominal pain, severe nausea, lack of oral intake. Coding Level of Care Code Acute Photographic Plate Maker for g Fwd Diagnoses Abdominal pain R10.9 Intractable nausea and vomiting R11.2 Acute hypokalemia E87.6 Obesity (BMI 30.0-34.9) E66.9
[2021-01-24] MEDS: morphine 4 mg/mL SDV 1 mL 2 MG IVP (18:27)
[2021-01-24] MEDS: lactated ringers 1,000 ML 75 ML IV (18:54)
--- NOTE | 2021-01-24 19:13 | PC.NURSE ---
Report to Nyasia HOUSTON at this time.
[2021-01-24] MEDS: morphine IR 15 mg Tablet PO (22:54)
[2021-01-24] MEDS: ondansetron 4 MG Tablet PO (22:54)
[2021-01-25] VITALS (9 sets, daily range): BP systolic 113–124; BP diastolic 77–81; PULSE 100–114; RESP 12–18; TEMP 36.7–36.9; O2SAT 92–97
[2021-01-25] MEDS: morphine IR 15 mg Tablet PO ×3 (03:24→15:05)
--- NOTE | 2021-01-25 05:10 | PC.NURSE ---
shift summary Patient has been awake for most of the night, asking for pain medication as soon she is due to have it. Patient had an ultrasound IV place in the right arm at shift change and apporx. 30 minutes later patient had pull it out of her arm. Physician notified and also notified of the IV medications that patient was on. Physician stated to not restart the IV and order for medications to be changed to PO medications.
[2021-01-25] MEDS: levothyroxine 200 mcg Tablet PO (05:41)
[2021-01-25] MEDS: levothyroxine 50 mcg Tablet PO (05:41)
[2021-01-25] MEDS: thiamine 100 mg Tablet PO (05:43)
[2021-01-25] MEDS: pantoprazole DR 40 mg Tablet PO (05:43)
[2021-01-25] MEDS: levETIRAcetam 500 mg Tablet 1000 MG PO (05:43)
[2021-01-25] MEDS: folic acid 1 mg Tablet PO (05:43)
[2021-01-25] MEDS: doxycycline 100 mg Tablet PO (08:11)
[2021-01-25] MEDS: iron polysaccharide complex 150 mg Capsule PO (08:12)
[2021-01-25] MEDS: potassium chloride oral liq 20 mEq/15 mL UDC 40 MEQ PO (08:13)
--- NOTE | 2021-01-25 10:08 | PC.CHAP ---
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 sanding machine buffer visit [] Patient/Family/Request visit [] Outpatient visit [] Follow-up visit [] Physician referral [] Code/Alert [x] Routine visit [] Staff referral [] Actively dying [] Patient sleeping [] Family support [] [] Out of room [] Palliative care [] [] Receiving care in room [] Pre-surgical visit [] Trauma [] Long length of stay [] ICU visit [] Other: Relational/Emotional Strength [] Patient feels connected with others/family/visitors/staff [] Distress [] Loneliness/isolation [] Abandonment Spirituality of Patient [] Person of Angy [] Attends Pentecostal of their Angy [] Believes in Prayer [] Reads Bible or Pentecostal materials [] There are Spiritual issues to be addressed Jointer Operator Interventions [] Prayer [] Active listening [] Non-anxious presence [] Spiritual/emotional support [] Crisis/trauma care [] Spiritual counseling [] Bereavement support [] Provided bereavement packet [] Provided Bible/devotional materials [] Provided toy/stuffed animal, coloring book to patient or family member [] Provided Communion [] Anointing/Morrow [] Salvation [] Completed spiritual assessment [] Other: Impact on Illness or Injury [] Angry [] Fearful [] Anxious [] Often cries [] Exhaustion [] Unable to work [] Unable to attend episcopalian [] Unable to walk/stand [] Unable to read [] Unable to drive [] Unable to eat/drink [] Unable to sleep [] Unable to be with family [] Patient intubated [] Other: Summary patient no improvemrnt since yesterday Time spent with patient
[2021-01-25] MEDS: ondansetron 4 MG Tablet PO (10:39)
[2021-01-25] MEDS: diphenhydrAMINE 25 mg Capsule PO (10:39)
--- NOTE | 2021-01-25 11:13 | P.DS_ITS ---
Discharge Providers Date of Admission: 01/24/21 18:03 Date of Discharge: January 25, 2021 Attending Provider at Admission: Magda Dennis MD Attending Provider at Discharge: Herminio Ovalle Primary Care Provider: Octaviano Sue MD Diagnoses at Discharge Discharge Diagnosis (1) Abdominal pain: Status: Acute (2) Intractable nausea and vomiting: Status: Acute (3) Acute hypokalemia: Status: Acute (4) Obesity (BMI 30.0-34.9): Status: Acute Reason for Visit Reason for Visit: SOB Hospital Course Hospital Course 45-year-old lady was admitted versus management of intractable nausea vomiting, right lower quadrant abdominal pain, later also noting chronic pain in the right foot. She has chronic lymphedema bilateral lower extremities, with noted excoriations, mild cellulitis noted on presentation for which she was started on doxycycline. CT abdomen pelvis was performed on admission with finding of stable moderate to large intrathoracic hiatal hernia with prominent surrounding mesenteric fat, resolution of previously noted pancreatitis, stable IVC filter, severe colonic diverticulosis, interval inflammation in the region of right external iliac lymph node anterior to the external iliac vessels suggesting mild lymphadenitis, additional minimal right inguinal lymph node inflammation probably reactive. This corresponded to the location of her pain in the right groin more so her other right lower quadrant. There was no evidence of appendicitis. She had no evidence of sepsis while in the hospital. With nausea improvement she was able to tolerate oral intake. She is asked to complete doxycycline course. She is asked to follow-up with primary provider for resolution of suspect inflammatory/reactive lymph node enlargement causing her pain and discomfort, and/or consideration of additional assessment/consideration of excisional biopsy in case symptoms persist. Given presence of IVC filter, chronic edema, right groin pain, she was also assessed by venous duplex ultrasound which was negative for DVT. She was previously on anticoagulation was discharged on any chelation during last hospital stay, however, states had followed up with hematology and reports they had agreed to stop the anticoagulation due to concern for bleeding. She states she will be following up with them in 2 weeks. She is asked to follow-up with regards to anemia with close hematology, and primary provider. She brings up chronic pain/chronic bone destruction in her right foot. Due to this she is asked to follow-up with podiatry in office. Physical Exam Const: COMMON NORMALS: no acute distress and patient oriented x3 NUTRITIONAL APPEARANCE: obese HENMT: COMMON NORMALS: oropharynx normal Neck/C-Spine: COMMON NORMALS: no JVD Resp: COMMON NORMALS: normal respiratory effort and clear to auscultation bilaterally AUSCULTATION: clear to auscultation bilaterally Cardio: COMMON NORMALS: no JVD, regular rhythm, S1 normal heart sound present, S2 normal heart sound present and No murmurs present (Cardio) RHYTHM: regular rhythm HEART SOUNDS: S1 normal heart sound present and S2 normal heart sound present GI: COMMON NORMALS: Normal to inspection, nondistended, normoactive bowel sounds present, Soft to palpation and non-tender PALPATION: Yes Soft to palpation Extremity: COMMON NORMALS: no joint enlargement and no pedal edema OTHER: Chronic bilateral lymphedema. Chronic venous stasis dermatitis. Neuro: COMMON NORMALS: patient oriented x3 and moves all extremities Skin: COMMON NORMALS: no rashes or lesions noted GENERAL SKIN EXAM: no rashes or lesions noted OTHER: Mildly more prominent erythema of skin above right ankle. No ulcers/wounds or erythema or swelling of the right foot. Discharge Data Data Completed and Pending: Completed Studies During Hospitalization Category Date Time Status CT abdomen pelvis w con* [id number] Urge nt Cat Scan 01/23/21 21:40 Completed XR chest 1V nichole ble [id number] Urgent Exams 01/23/21 21:40 [place] [id number] Routin e Ultrasound 01/25/21 18:06 Completed Pending at discharge Category Date Time Status Complete Blood Co unt w/Auto Routine Lab 01/25/21 08:22 Ordered Comprehensive Met abolic Panel [facility] 01/25/21 08:22 Ordered Enteric Bacterial Panel by PCR [facility] 01/24/21 18:04 Uncollected Labs from last 24 hours 01/25/21 01/25/21 10:46 10:46 WBC Pending RBC Pending Hgb Pending Hct Pending MCV Pending MCH Pending MCHC Pending RDW Pending Plt Count Pending MPV Pending Lymph % (Auto) Pending [place] % (Auto) Pending Lymph # (Auto) Pending [place] # (Auto) Pending Sodium Pending Potassium Pending Chloride Pending Carbon Dioxide Pending Anion Gap Pending BUN Pending Creatinine Pending GFR Calculation Pending Glucose Pending Calculated Osmolal ity Pending Calcium Pending Total Bilirubin Pending AST Pending ALT Pending Alkaline Phosphata se Pending Total Protein Pending Albumin Pending Globulin Pending Vitals: Last Vital Signs Temp 98.1 F 01/25/21 07:34 Pulse 114 H 01/25/21 07:34 Resp 18 01/25/21 08:12 BP 113/77 01/25/21 07:34 Pulse Ox 96 01/25/21 07:34 Discharge Plan Discharge Patient Disposition: Home Condition: Stable Prescriptions: New morphine 15 mg tablet 15 mg PO Q6H PRN (Reason: pain) Qty: 10 RF: 0 doxycycline monohydrate 100 mg Tablet 100 mg PO DAILY Qty: 12 RF: 0 ondansetron HCl [Zofran] 4 mg tablet 4 mg PO DAILY PRN (Reason: nausea and vomiting) 4 Days Qty: 12 RF: 0 Continued promethazine 12.5 mg suppository 12.5 mg WI TID PRN (Reason: nausea and vomiting) Qty: 12 RF: 0 ondansetron 4 mg tablet,disintegrating 4 mg PO Q8H PRN (Reason: nausea and vomiting) Qty: 10 RF: 0 epinephrine [EpiPen 2-Tim] 0.3 mg/0.3 mL auto-injector 0.3 mg IM PRN PRN (Reason: Allergic Reaction) RF: 0 albuterol sulfate [Ventolin HFA] 90 mcg/actuation HFA aerosol inhaler See Rx Instructions .ROUTE .COMPLEX Qty: 18 RF: 3 furosemide 40 mg tablet 40 mg PO BID@0600,1800 RF: 0 potassium chloride [Klor-Con M20] 20 mEq tablet,ER particles/crystals 20 meq PO BID@0600,1800 RF: 0 budesonide 0.25 mg/2 mL suspension for nebulization 0.25 mg INHALATION BID@0600,1800 RF: 0 folic acid 1 mg tablet 1 mg PO DAILY@0600 RF: 0 fluticasone propionate [Flonase Allergy Relief] 50 mcg/actuation spray,suspension 1 spray INTRANASAL BID@0600,1800 RF: 0 cholecalciferol (vitamin D3) 125 mcg (5,000 unit) tablet 5,000 unit PO DAILY@0600 RF: 0 thiamine mononitrate (vit B1) [Vitamin B-1 (mononitrate)] 100 mg tablet 100 mg PO DAILY@0600 RF: 0 Spiriva Respimat 2.5 mcg/actuation mist 2 puff INHALATION DAILY@0600 RF: 0 levothyroxine 200 mcg capsule 200 mcg PO DAILY@0600 RF: 0 tizanidine [Zanaflex] 2 mg capsule 2 mg PO Q12H PRN (Reason: muscle spasticity) Qty: 10 RF: 0 potassium chloride 20 mEq packet 40 meq PO TID Qty: 6 RF: 0 ipratropium-albuterol 0.5 mg-3 mg(2.5 mg base)/3 mL solution for nebulization 3 ml INHALATION Q6H Qty: 15 RF: 0 albuterol sulfate 0.63 mg/3 mL solution for nebulization 0.63 mg INHALATION Q4H PRN (Reason: Shortness Of Breath) RF: 0 Incruse Ellipta 62.5 mcg/actuation blister with device 1 inh INHALATION DAILY@0600 RF: 0 clonazepam 0.5 mg tablet 0.25 mg PO BID PRN (Reason: anxiety) Qty: 14 RF: 0 polyethylene glycol 3350 17 gram Powder In Packet 17 g PO DAILY Qty: 30 RF: 0 magnesium oxide 400 mg (241.3 mg magnesium) Tablet 400 mg PO BID Qty: 60 RF: 0 levothyroxine 50 mcg Tablet 50 mcg PO DAILY@0600 Qty: 30 RF: 0 multivitamin with folic acid [Thera] 400 mcg Tablet 1 tab PO DAILY Qty: 30 RF: 0 sennosides-docusate sodium 8.6-50 mg Tablet 1 tab-cap PO BID Qty: 60 RF: 0 morphine 15 mg Tablet 15 mg PO Q12H PRN (Reason: Severe Pain) Qty: 20 RF: 0 pantoprazole 40 mg tablet,delayed release (DR/EC) 40 mg PO BID@0600,1800 Qty: 60 RF: 0 liothyronine 25 mcg tablet 25 mcg PO DAILY RF: 0 Discharge Orders: Discharge Order (Routine); Ordered 01/25/21 Ordered By: Herminio Ovalle Referrals: Russell Felix DPM [Physician] - 02/09/21 2:45 pm (R foot chronic bone problem) Jessica Jaffe MD [Physician] - 02/01/21 4:00 pm Discharge Diet: Advance as tolerated Discharge Activity: Increase activity as tolerated Patient Instructions: Opioid Safety Activity Restrictions/Additional Instructions: Please follow up with your primary care doctor regarding inflammation and pain of the right groin lymph node. If symptoms persist, they may consider lymph node excision biopsy for additional evaluation. Please complete antibiotic course for mild episode of cellulitis. Please have your primary doctor recheck your blood count with regards to anemia. Please follow-up with podiatry doctor regarding chronic bone problems in your foot. Discharge Attestations Time Spent in Discharge Care*: greater than 30 min Status at Discharge: Cognitive status at discharge: cognitively intact , Behavioral status at discharge: cooperative , Quality Metrics Clinical Quality Measures During this hospital stay, did patient experience: None Coding Level of Care Code Acute Chg FW DC note Exam Comprehensive Diagnoses Abdominal pain R10.9 Intractable nausea and vomiting R11.2 Acute hypokalemia E87.6 Obesity (BMI 30.0-34.9) E66.9
--- NOTE | 2021-01-25 18:06 | USCV_ITS ---
Mike Delores Age: 45 Gender: F : 1975 Exam Date: 01/25/2021 07:13 Ordering Phys: Herminio Ovalle MD Technologist: Maryana Pimentel Exam Location: [facility]_ Indication: RT GROIN PAIN HISTORY: Lower extremity pain. PROCEDURES: Venous duplex imaging was performed in only the right lower extremity. The following venous structures were evaluated: common femoral vein, profunda vein, proximal portion of the greater saphenous vein, superficial femoral vein, and the popliteal vein. Serial compression, augmentation maneuvers, and spectral Doppler flow evaluation were performed. FINDINGS: Examination was technically limited due to body habitus. No evidence of DVT seen in any vessel visualized at this time. PTV AND PERN V NOT SEEN DUE TO EDEMA AND LARGE BODY HABITUS MULTIPLE LYMPH NODES SEEN IN GROIN IN AOP CONCLUSIONS No DVT right lower extremity. Technically limited study. Dr. Kassie Darnell DO (Electronically Signed) Final Date: 25 Jan 2021 08:26 S
--- NOTE | 2021-01-27 15:05 | PC.RESP ---
Pulmonary Rehab information sent to patient.
== END 2021-01-25 18:00 | disposition home or self-care (01) | DRG 392 ==
LOC: ER 01-24 00:24 → MEDSURG 01-24 03:25
PROVIDERS: Admitting Provider Internal Medicine; Emergency Provider Student in an Organized Health Care Education/Training Program; PCP Internal Medicine; Visit Provider Internal Medicine
DX: R10.31 Right lower quadrant pain (principal); I50.30 Unspecified diastolic (congestive) heart failure; L03.116 Cellulitis of left lower limb; L03.115 Cellulitis of right lower limb; Z68.41 Body mass index [BMI] 40.0-44.9, adult; J44.9 Chronic obstructive pulmonary disease, unspecified; Z99.81 Dependence on supplemental oxygen; D63.1 Anemia in chronic kidney disease; F10.10 Alcohol abuse, uncomplicated; E87.6 Hypokalemia; K44.9 Diaphragmatic hernia without obstruction or gangrene; K22.70 Barrett's esophagus without dysplasia; F31.9 Bipolar disorder, unspecified; N18.30 Chronic kidney disease, stage 3 unspecified; Z86.19 Personal history of other infectious and parasitic diseases; Z86.010 Personal history of colon polyps; Z86.718 Personal history of other venous thrombosis and embolism; E03.9 Hypothyroidism, unspecified; Z95.828 Presence of other vascular implants and grafts; R91.8 Other nonspecific abnormal finding of lung field; Z86.711 Personal history of pulmonary embolism; Z79.51 Long term (current) use of inhaled steroids; K57.90 Diverticulosis of intestine, part unspecified, without perforation or abscess without bleeding; G89.29 Other chronic pain; M25.571 Pain in right ankle and joints of right foot; I88.0 Nonspecific mesenteric lymphadenitis; K29.70 Gastritis, unspecified, without bleeding; E66.9 Obesity, unspecified; Z89.021 Acquired absence of right finger(s); R16.1 Splenomegaly, not elsewhere classified
CPT/HCPCS: 36415; 71045; 74177; 80053; 81001; 83690; 83880; 85025; 87086; 93971; 96374; 96375; 96376; 99285; G0378; J1200; J1940; J2060; J2270; J2405; J2765; Q0162; Q0164; Q9967

== ENCOUNTER 2021-01-27 20:59 | Inpatient (IN) | payer MEDICARE, MEDICAID, SELFPAY ==
--- NOTE | 2021-01-27 21:09 | XRR_ITS ---
PROCEDURE INFORMATION: Exam: XR Chest Exam date and time: 01/27/2021 9:11 PM Age: 45 years old Clinical indication: Shortness of breath; Additional info: SOB TECHNIQUE: Imaging protocol: XR of the chest. Views: 1 view. COMPARISON: CR (CHEST, ) 01/23/2021 10:07 PM FINDINGS: Lungs: Unremarkable. No consolidation. Pleural spaces: Unremarkable. No pleural effusion. No pneumothorax. Heart/Mediastinum: Unremarkable. No cardiomegaly. Bones/joints: Unremarkable. XR/XR chest 1V portable [id number] IMPRESSION: No acute findings.
[2021-01-27 21:11] VITALS: BP 133/101; PULSE 135; RESP 20; TEMP 36.6; O2SAT 94; BMI 40.7
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
[2021-01-27 21:26] VITALS: RESP 18
[2021-01-27] MEDS: HYDROmorphone 1 mg/mL INJ 1 mL IVP (21:26)
[2021-01-27] MEDS: ondansetron 2 mg/ML SDV 2 mL 4 MG IVP (21:26)
[2021-01-27 21:30] LABS: Basophils # 0.1 10^3/uL (0.0-0.1); Basophils % 0.8 %; Eosinophils # 0.3 10^3/uL (0.0-0.8); Eosinophils % 2.6 %; Hematocrit 26.1 % (37.0-47.0); Hemoglobin 7.5 g/dL (11.5-15.3); Mean Corpuscular HGB Conc 28.7 g/dL (30.0-36.0); Mean Corpuscular Hemoglobin 25.3 pg (28.0-34.0); Mean Corpuscular Volume 87.9 fL (81-99); Mean Platelet Volume 9.9 fL (7.4-10.4); Monocytes # 0.7 10^3/uL (0.2-0.9); Monocytes % 6.3 %; Neutrophils # 8.66 10^3/uL (1.8-7.7); Neutrophils % 80.7 %; Nucleated Red Blood Cells % 0 %; Platelet Count 271 10^3/cmm (130-400); Red Blood Count 2.97 10^6/uL (4.1-5.3); Red Cell Distribution Width 22.5 % (12.1-15.1); White Blood Count 10.7 10^3/uL (4.0-10.0)
[2021-01-27 21:56] LABS: Alanine Aminotransferase 12 U/L (0-33); Albumin Level 2.4 g/dL (3.5-5.2); Alkaline Phosphatase 304 IU/L (35-105); Anion Gap 13.9 (5-19); Aspartate Amino Transferase 18 U/L (0-32); Blood Urea Nitrogen 7 mg/dL (6-20); Calcium 6.3 mg/dL (8.5-10.5); Carbon Dioxide 27 mmol/L (22-29); Chloride 94 mmol/L (98-107); Globulin 4.2 g/dL (1.3-4.6); Glomerular Filtration Rate 34.7 mL/min (90-130); Glucose 100 mg/dL (65-115); Lipase 9 U/L (13-60); Osmolality Calculated 268 mOsm/kg (285-295); Potassium 4.9 mmol/L (3.5-5.1); Sodium 130 mmol/L (136-145); Total Bilirubin 0.8 mg/dL (0.15-1.2); Total Protein 6.6 g/dL (6.6-8.7)
--- NOTE | 2021-01-27 22:15 | CTR_ITS ---
PROCEDURE INFORMATION: Exam: CT Abdomen And Pelvis Without Contrast Exam date and time: 01/27/2021 10:27 PM Age: 45 years old Clinical indication: Abdominal pain; Localized; Right lower quadrant (rlq); Prior surgery; Surgery type: Ivc filter. Gb. Hystrectomy. ; Patient HX: Rlq pain. ; Additional info: Abd pain TECHNIQUE: Imaging protocol: Computed tomography of the abdomen and pelvis without contrast. Radiation optimization: All CT scans at this facility use at least one of these dose optimization techniques: automated exposure control; mA and/or kV adjustment per patient size (includes targeted exams where dose is matched to clinical indication); or iterative reconstruction. COMPARISON: CT abdomen pelvis w con* [id number] 01/23/2021 10:38 PM RADIATION DOSE METRICS: Total DLP (mGy-cm): 1662.85 FINDINGS: Lungs: 12 mm nonspecific nodule again seen in the right lower lobe. This is not significantly changed, even dating back to exam of 02/04/2018, possibly slightly smaller since that exam. Lack of interval growth in an almost 3 year interval would make malignancy unlikely. Further follow-up could still be useful, as clinically directed. Pleural spaces: No pleural fluid. Mediastinal space: Prominent hiatal hernia, 6-7 cm in diameter, not significantly changed. Liver: There is prominent fatty infiltration of the liver. The liver appears somewhat enlarged, with right lobe length of 22-23 cm. No definite/significant focal hepatic abnormality. Gallbladder and bile ducts: Prior cholecystectomy, no significant biliary tree dilation. Pancreas: Essentially unchanged appearance of the pancreas, no definite surrounding fluid. Spleen: Unremarkable. Adrenal glands: Unremarkable. Kidneys and ureters: No hydronephrosis of either kidney. No visible renal or ureteral calculus. No perinephric fluid. Stomach and bowel: There is diverticulosis of the sigmoid and descending colon, without CT evidence of diverticulitis. Appendix: The appendix is visualized and appears normal. Intraperitoneal space: No free air, ascites, or bowel distention. Vasculature: No evidence for abdominal aortic aneurysm. An IVC filter is present. Lymph nodes: Numerous borderline/mildly prominent retroperitoneal/periaortic and right iliac chain lymph nodes, not significantly changed, a nonspecific appearance. This may represent reactive lymphadenopathy. Followup may be useful to exclude progression, especially if there is concern for metastatic disease or lymphoma. Several mildly enlarged inguinal lymph nodes bilaterally, similar to the prior exam. Urinary bladder: Possibly some mild diffuse urinary bladder wall thickening. However, evaluation is limited, as the bladder is almost empty. While nonspecific, this could indicate evidence for cystitis. Please correlate clinically. Reproductive: Prior hysterectomy. No definite ovarian/adnexal cyst or mass by CT. Bones/joints: Moderate degenerative/arthritic changes in the lower lumbar spine. Soft tissues: Small umbilical hernia, containing only fat, not significantly changed. CT/CT abdomen pelvis wo con [id number] IMPRESSION: 1. Normal appendix. 2. No free air or bowel distention. 3. Possible mild urinary bladder wall thickening, see above. 4. Mild lymphadenopathy, details above. 5. Prominent hiatal hernia. 6. Right lung nodule, see above discussion. 7. Other findings discussed above. COMMENTS: For patients with an IVC filter, recommend assessment for a management plan for the patient's IVC filter. If there is no established management plan, recommend referral to an interventional clinician on a nonemergent basis for evaluation. Radiation Dose CTDIVOL = (mGy): DLP = 1662.85 (mGy-cm)
[2021-01-27] MEDS: metoclopramide 5 mg/mL SDV 2 mL IVP (22:21)
[2021-01-27] MEDS: diphenhydrAMINE 50 mg/mL SDV 1mL 25 MG IVP (22:23)
[2021-01-27 22:24] LABS: Add Urine Microscopic? YES; Bilirubin Urine 1+ (Negative); Blood Urine 2+ (Negative); Glucose Urine UA Norm (Normal); Ketones Urine Negative (Negative); Leukocyte Esterase Urine 2+ (Negative); Nitrate Urine Negative (Negative); Protein Urine Trace (Negative); Urine Appearance Cloudy (CLEAR); Urine Color Yellow (Yellow); Urobilinogen Urine 8 mg/dL (Negative); pH Urine 5 (5-7)
[2021-01-27 22:25] LABS: Add Urine Culture? Yes; Bacteria Urine 4+ /hpf; RBC Urine 0-4 /hpf (0-2); WBC Urine >100 /hpf (0-5)
[2021-01-27] MEDS: ciprofloxacin 400 MG/200 ML PREMIX 200 MG IV (22:41)
[2021-01-27 22:51] LABS: Lactate (Lactic Acid level) 3.6 mmol/L (0.5-2.2)
[2021-01-27] MEDS: sodium chloride 0.9% 1,000 ML 999 ML IV (23:19)
[2021-01-28] VITALS (12 sets, daily range): BP systolic 94–104; BP diastolic 60–80; PULSE 99–121; RESP 16–21; TEMP 36.6–37.1; O2SAT 93–100
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
--- NOTE | 2021-01-28 01:59 | PC.NURSE ---
pt arrived to room from ER via wheelchair. pt transferred with 1 assist. pt very visibly anxious with repetitive speech, crying with no tears at 0204
[2021-01-28] MEDS: sodium chloride 0.9% 250 ML IV (02:24)
[2021-01-28] MEDS: aztreonam 2,000 MG in sodium chloride 0.9% (plus) 100 ML 200 MG IV (02:24)
[2021-01-28] MEDS: morphine IR 15 mg Tablet PO ×2 (02:30→09:15)
[2021-01-28] MEDS: ondansetron 2 mg/ML SDV 2 mL 4 MG IVP ×2 (02:40→09:15)
[2021-01-28] MEDS: CLONazepam 0.5 mg Tablet 0.25 MG PO ×2 (03:49→15:14)
[2021-01-28] MEDS: levothyroxine 200 mcg Tablet PO (06:08)
[2021-01-28] MEDS: thiamine 100 mg Tablet PO (06:08)
[2021-01-28] MEDS: levothyroxine 50 mcg Tablet PO (06:08)
[2021-01-28] MEDS: folic acid 1 mg Tablet PO (06:08)
[2021-01-28] MEDS: benzonatate 100 mg Capsule PO (06:10)
[2021-01-28 06:31] LABS: Glucose Point of Care 101 mg/dL (70-110)
[2021-01-28] MEDS: pantoprazole DR 40 mg Tablet PO (09:18)
[2021-01-28] MEDS: iron polysaccharide complex 150 mg Capsule PO ×2 (09:18→17:49)
[2021-01-28] MEDS: nystatin powder 15 gm Btl 1 APPLIC TOPICAL ×2 (09:21→17:56)
[2021-01-28] MEDS: aztreonam 2,000 MG in sodium chloride 0.9% (plus) 100 ML 100 MG IV (09:23)
[2021-01-28 11:03] LABS: Glucose Point of Care 96 mg/dL (70-110)
--- NOTE | 2021-01-28 11:14 | PC.PHAR ---
Addendum entered by Kerri Garrison 01/28/21 11:18: PT STATES SHE KNOWS SHE IS TAKING KEPPRA 500MG TAKES 1000MG BID-[facility] LAST FILLED ON 05/27/2019 30D/S-PT STATES SHE HAD A BUILD UP OF THIS MEDICATION Original Note: PT STATES ED HELPS HER WITH HER MEDICATIONS-CALLED ED NO VOICEMAIL TO LEAVE MESSAGE ON -MEDICATIONS ENTERED ARE WHAT MEDICATION WERE ON A PREVIOUS ENTERED MED LIST FROM 01/24/21 NOTES ARE MADE IN THE PHARMACY COMMENTS OF EACH RX
[2021-01-28] MEDS: diphenhydrAMINE 50 mg/mL SDV 1mL 25 MG IVP ×2 (11:57→17:49)
--- NOTE | 2021-01-28 14:09 | PM.PN ---
Vitals/I&O/Wt Last Vital Signs Temp 98.4 F 01/28/21 11:43 Pulse 101 H 01/28/21 11:43 Resp 18 01/28/21 11:43 BP 97/60 01/28/21 11:43 Pulse Ox 100 01/28/21 11:43 01/27/21 01/28/21 01/28/21 22:59 06:59 14:59 Intake Total 1550 / 1550 340 / 340 Balance 1550 / 1550 340 / 340 Weight last 48 hrs Weight 104.326 kg Physical Exam Const: COMMON NORMALS: no acute distress ORIENTATION/CONSCIOUSNESS: Yes awake, Yes oriented to person, Yes oriented to place and Yes oriented to time Resp: COMMON NORMALS: normal respiratory effort, No retractions, No use of accessory muscles and clear to auscultation bilaterally AUSCULTATION: clear to auscultation bilaterally Cardio: COMMON NORMALS: regular rate, regular rhythm, S1 normal heart sound present and S2 normal heart sound present RATE: regular rate RHYTHM: regular rhythm HEART SOUNDS: S1 normal heart sound present and S2 normal heart sound present GI: COMMON NORMALS: Normal to inspection, nondistended, normoactive bowel sounds present, Soft to palpation and non-tender PALPATION: Yes Soft to palpation Extremity: NARRATIVE EXTREMITY EXAM: 1+ edema Neuro: SENSORIUM/ORIENTATION: Yes oriented to person, Yes oriented to place and Yes oriented to time Data : 01/27/21 21:28 01/27/21 21:28 Micro: Microbiology 01/28/21 06:28 Blood Culture - Preliminary Blood SPECIMEN COLLECTED A&P Assessment and plan (1) Sepsis: -Secondary to UTI -Sepsis criteria met on admission due to tachycardia, tachypnea, leukocytosis, lactic acidemia -CT scan does not show any evidence of pyelonephritis, no obstructive uropathy -Blood pressures are soft, heart rates are improved, -Continues to have complains of generalized pain Plan: -Obtain lactic acid, CRP, pro-Yoel -Follow blood cultures, urine cultures -Switched to Primaxin for antibiotic coverage -Monitor vitals, monitor hemodynamics -Morphine IV for pain -LR for IV hydration -Full code -SCDs for DVT prophylaxis, IVC filter in place Status: Acute (2) UTI (urinary tract infection): Status: Acute (3) TR[place] (acute kidney injury): Creatinine 1.6, secondary dehydration, UTI, continue IV hydration Status: Acute (4) Intractable nausea and vomiting: Status: Acute (5) Bilateral pulmonary embolism: Status post IVC filter placement Status: Acute (6) Chronic kidney disease, stage III (moderate): Status: Acute (7) COPD (chronic obstructive pulmonary disease): Status: Acute Qualifiers: COPD type: COPD with acute exacerbation Qualified Code(s): J44.1 - Chronic obstructive pulmonary disease with (acute) exacerbation (8) Pulmonary nodule, right: Status: Acute (9) Anemia: Chronic anemia, hemoglobin between 7 and 8 chronically, no reported bloody or black stools Status: Acute Additional A&P Information Patient is endorsing tick bites, she has removed 6 ticks in last few days(she has recently received doxycycline for possible cellulitis), her skin excoriation and rash seems particular for a flea bite, would use calamine lotion and skin moisturizer and topical nystatin Oxygen dependent COPD without acute exacerbation currently saturating well on 4 L nasal cannula, chest x-ray unremarkable Chronic anemia without acute exacerbation baseline hemoglobin seems to be around 7-8, Continue folic acid and iron supplementation Consistent carb diet DVT prophylaxis SCDs Full code Attestations Medical Necessity Statement*: Patient requires hospitalization, inpatient, greater than 2 midnights, for sepsis secondary to UTI Coding Level of Care Code Acute Public Health Sanitarian Technician for Chg Fwd Diagnoses Sepsis A41.9 UTI (urinary tract infection) N39.0 [place] (acute kidney injury) N17.9 Intractable nausea and vomiting R11.2 Bilateral pulmonary embolism I26.99 Chronic kidney disease, stage III (moderate) N18.3 COPD (chronic obstructive pulmonary disease) J44.1 COPD type: COPD with acute exacerbation Pulmonary nodule, right R91.1 Anemia D64.9
[2021-01-28] MEDS: lactated ringers 1,000 ML 100 ML IV (15:05)
[2021-01-28] MEDS: morphine 4 mg/mL SDV 1 mL 1 MG IVP ×2 (15:14→19:56)
--- NOTE | 2021-01-28 16:23 | PC.NURSE ---
Patient states, I want the IV in my left upper arm taken out. I feel like it is infiltrated. It schafer up in my shoulder. IV with fluids running in the line. No swelling noted at the site. NO swelling noted up the arm. IV fluids stopped. Line flushed and it flushes good. Discussed all these things with patient who still request that it be taken out. IV removed intact.
--- NOTE | 2021-01-28 16:29 | PC.NURSE ---
Patient called this nurse to the room patient states that the other IV in right AC that has fluids running right now is burning and she wants it removed. There is no infiltration and the fluid is running smoothly. Patient States, I do not care it is hurting me and I want it out. ER called to try and get another IV at this time.
[2021-01-28 16:51] LABS: Glucose Point of Care 105 mg/dL (70-110)
--- NOTE | 2021-01-28 19:24 | PC.NURSE ---
Report to Arely [facility] at this time.
[2021-01-28 20:42] LABS: Glucose Point of Care 115 mg/dL (70-110)
[2021-01-29] VITALS (13 sets, daily range): BP systolic 82–100; BP diastolic 44–60; PULSE 80–109; RESP 16–18; TEMP 36.5–36.8; O2SAT 93–99
[2021-01-29] MEDS: diphenhydrAMINE 50 mg/mL SDV 1mL 25 MG IVP ×3 (03:52→20:12)
[2021-01-29] MEDS: levothyroxine 200 mcg Tablet PO (05:54)
[2021-01-29] MEDS: levothyroxine 50 mcg Tablet PO (05:54)
[2021-01-29] MEDS: folic acid 1 mg Tablet PO (05:54)
[2021-01-29] MEDS: thiamine 100 mg Tablet PO (05:54)
[2021-01-29 06:16] LABS: Glucose Point of Care 94 mg/dL (70-110)
[2021-01-29] MEDS: morphine 4 mg/mL SDV 1 mL 1 MG IVP ×4 (06:23→20:12)
[2021-01-29] MEDS: ondansetron 2 mg/ML SDV 2 mL 4 MG IVP ×2 (06:23→15:10)
[2021-01-29] MEDS: lactated ringers 1,000 ML 100 ML IV (08:00)
[2021-01-29] MEDS: iron polysaccharide complex 150 mg Capsule PO ×2 (08:00→17:13)
[2021-01-29] MEDS: nystatin powder 15 gm Btl 1 APPLIC TOPICAL ×2 (08:01→17:13)
[2021-01-29] MEDS: pantoprazole DR 40 mg Tablet PO (08:01)
--- NOTE | 2021-01-29 09:28 | PC.NURSE ---
rcvd verbal order from Dr Arita to stop LR.
[2021-01-29 10:58] LABS: Glucose Point of Care 106 mg/dL (70-110)
--- NOTE | 2021-01-29 12:08 | PC.NURSE ---
Notified Jim with Lab that Dr Arita wants labs drawn on patient.
--- NOTE | 2021-01-29 13:13 | P.PN_ITS ---
Subjective Subjective: Interval history: Patient was examined this morning, she tells me that she is feeling better, no fevers, no chills, no nausea, no vomiting, does have some abdominal tightness, she thinks that it is the fluid that she is getting Vitals/I&O/Wt Last Vital Signs Temp 97.8 F 01/29/21 11:13 Pulse 88 01/29/21 11:13 Resp 18 01/29/21 11:13 BP 82/44 01/29/21 11:13 Pulse Ox 99 01/29/21 11:13 01/28/21 01/29/21 01/29/21 22:59 06:59 14:59 Intake Total 460 / 1100 100 / 1200 1360 / 1360 Balance 460 / 1100 100 / 1200 1360 / 1360 Weight last 48 hrs Weight 104.326 kg Physical Exam Const: COMMON NORMALS: no acute distress and patient oriented x3 Resp: COMMON NORMALS: normal respiratory effort, No retractions, No use of accessory muscles and clear to auscultation bilaterally AUSCULTATION: clear to auscultation bilaterally Cardio: COMMON NORMALS: regular rate, regular rhythm, S1 normal heart sound present and S2 normal heart sound present RATE: regular rate RHYTHM: regular rhythm HEART SOUNDS: S1 normal heart sound present and S2 normal heart sound present GI: COMMON NORMALS: Normal to inspection, nondistended, normoactive bowel sounds present and Soft to palpation PALPATION: Yes Soft to palpation Extremity: NARRATIVE EXTREMITY EXAM: 1+ edema OTHER: 1+ pitting edema Neuro: COMMON NORMALS: patient oriented x3 Psych: COMMON NORMALS: mental status grossly normal Data : 01/27/21 21:28 01/27/21 21:28 Micro: Microbiology 01/27/21 22:15 Urine Culture - Preliminary Urine,Clean Catch Gram Negative Rods 01/28/21 06:28 Blood Culture - Preliminary Blood NEGATIVE TO DATE A&P Assessment and plan (1) Sepsis: -Secondary to UTI -Sepsis criteria met on admission due to tachycardia, tachypnea, leukocytosis, lactic acidemia -CT scan does not show any evidence of pyelonephritis, no obstructive uropathy -Blood pressures are soft, heart rates are improved, -Continues to have complains of generalized pain Plan: -Repeat labs, lactic acid, CRP, pro-Yoel, morning labs are all pending as patient was having pain when her second IV was placed, asked nurses to remove it, she is a hard stick, I have asked the lab to redraw her labs they have not been drawn as of yet, will order labs again as stat -She does have 1+ pitting edema, abdomen feels tight, stop fluids -Blood pressures are soft, left blood pressure is 82/44, alert oriented x3, following all commands, no lightheadedness, dizziness, will continue to monitor, hold off on fluid boluses due to concerns for fluid overload -Follow blood cultures, urine cultures -Switched to Primaxin for antibiotic coverage -Monitor vitals, monitor hemodynamics -Morphine IV for pain -Hold fluids -Full code -SCDs for DVT prophylaxis, IVC filter in place Status: Acute (2) UTI (urinary tract infection): Status: Acute (3) [place] (acute kidney injury): Creatinine 1.6, secondary dehydration, UTI, continue IV hydration Status: Acute (4) Intractable nausea and vomiting: Status: Acute (5) Bilateral pulmonary embolism: Status post IVC filter placement Status: Acute (6) Chronic kidney disease, stage III (moderate): Status: Acute (7) COPD (chronic obstructive pulmonary disease): Status: Acute Qualifiers: COPD type: COPD with acute exacerbation Qualified Code(s): J44.1 - Chronic obstructive pulmonary disease with (acute) exacerbation (8) Pulmonary nodule, right: Status: Acute (9) Anemia: Chronic anemia, hemoglobin between 7 and 8 chronically, no reported bloody or black stools Status: Acute Additional A&P Information Patient is endorsing tick bites, she has removed 6 ticks in last few days(she has recently received doxycycline for possible cellulitis), her skin excoriation and rash seems particular for a flea bite, would use calamine lotion and skin moisturizer and topical nystatin Oxygen dependent COPD without acute exacerbation currently saturating well on 2 L nasal cannula, chest x-ray unremarkable Chronic anemia without acute exacerbation baseline hemoglobin seems to be around 7-8, Continue folic acid and iron supplementation Consistent carb diet DVT prophylaxis SCDs Full code Attestations Medical Necessity Statement*: Patient requires hospitalization for sepsis secondary UTI, currently on Primaxin, awaiting morning labs Coding Level of Care Code Acute Biomedical Engineering Internship for [facility] Fwd Diagnoses Sepsis A41.9 UTI (urinary tract infection) N39.0 [place] (acute kidney injury) N17.9 Intractable nausea and vomiting R11.2 Bilateral pulmonary embolism I26.99 Chronic kidney disease, stage III (moderate) N18.3 COPD (chronic obstructive pulmonary disease) J44.1 COPD type: COPD with acute exacerbation Pulmonary nodule, right R91.1 Anemia D64.9
--- NOTE | 2021-01-29 14:42 | PC.NURSE ---
morphine given at 1111 today and did not scan. staff writer gave Benadryl and morphine at the same time.
[2021-01-29] MEDS: CLONazepam 0.5 mg Tablet 0.25 MG PO (15:10)
[2021-01-29 16:54] LABS: Glucose Point of Care 106 mg/dL (70-110)
[2021-01-29 19:08] LABS: Basophils # 0.1 10^3/uL (0.0-0.1); Basophils % 1.3 %; Eosinophils # 0.2 10^3/uL (0.0-0.8); Eosinophils % 5.4 %; Hematocrit 25.5 % (37.0-47.0); Hemoglobin 7.3 g/dL (11.5-15.3); Lymphocytes # 0.7 10^3/uL (0.8-4.8); Lymphocytes % 15.1 %; Mean Corpuscular HGB Conc 28.6 g/dL (30.0-36.0); Mean Corpuscular Hemoglobin 25.4 pg (28.0-34.0); Mean Corpuscular Volume 88.9 fL (81-99); Mean Platelet Volume 9.9 fL (7.4-10.4); Monocytes # 0.4 10^3/uL (0.2-0.9); Monocytes % 9.7 %; Neutrophils # 3.03 10^3/uL (1.8-7.7); Neutrophils % 68.1 %; Nucleated Red Blood Cells % 0 %; Platelet Count 212 10^3/cmm (130-400); Red Blood Count 2.87 10^6/uL (4.1-5.3); Red Cell Distribution Width 23.4 % (12.1-15.1); White Blood Count 4.5 10^3/uL (4.0-10.0)
[2021-01-29 19:29] LABS: Lactate (Lactic Acid level) 1.8 mmol/L (0.5-2.2)
[2021-01-29 19:39] LABS: NT Pro B Type Natriuretic Pept 1976 pg/mL (0-125); Procalcitonin 0.24 ng/mL (0-0.5)
[2021-01-29 19:51] LABS: Alanine Aminotransferase 8 U/L (0-33); Albumin Level 1.9 g/dL (3.5-5.2); Alkaline Phosphatase 234 IU/L (35-105); Anion Gap 14.4 (5-19); Aspartate Amino Transferase 10 U/L (0-32); Blood Urea Nitrogen 8 mg/dL (6-20); C Reactive Protein 34.7 mg/L (0.0-4.9); Calcium 6.2 mg/dL (8.5-10.5); Carbon Dioxide 21 mmol/L (22-29); Chloride 100 mmol/L (98-107); Globulin 3.4 g/dL (1.3-4.6); Glomerular Filtration Rate 59.7 mL/min (90-130); Glucose 94 mg/dL (65-115); Magnesium 1.4 mg/dL (1.7-2.3); Osmolality Calculated 270 mOsm/kg (285-295); Potassium 4.4 mmol/L (3.5-5.1); Sodium 131 mmol/L (136-145); Total Bilirubin 0.5 mg/dL (0.15-1.2); Total Protein 5.3 g/dL (6.6-8.7)
[2021-01-29 21:17] LABS: Glucose Point of Care 95 mg/dL (70-110)
[2021-01-30] VITALS (8 sets, daily range): BP systolic 90–120; BP diastolic 56–60; PULSE 89–98; RESP 18; TEMP 36.2–36.6; O2SAT 94–100
[2021-01-30] MEDS: CLONazepam 0.5 mg Tablet 0.25 MG PO (00:47)
[2021-01-30] MEDS: ondansetron 2 mg/ML SDV 2 mL 4 MG IVP ×2 (00:47→10:13)
[2021-01-30] MEDS: morphine 4 mg/mL SDV 1 mL 1 MG IVP ×4 (00:47→13:52)
[2021-01-30] MEDS: thiamine 100 mg Tablet PO (05:19)
[2021-01-30] MEDS: levothyroxine 50 mcg Tablet PO (05:19)
[2021-01-30] MEDS: levothyroxine 200 mcg Tablet PO (05:19)
[2021-01-30] MEDS: folic acid 1 mg Tablet PO (05:20)
[2021-01-30] MEDS: diphenhydrAMINE 50 mg/mL SDV 1mL 25 MG IVP (05:20)
[2021-01-30 07:28] LABS: Glucose Point of Care 84 mg/dL (70-110)
[2021-01-30] MEDS: iron polysaccharide complex 150 mg Capsule PO (09:48)
[2021-01-30] MEDS: nystatin powder 15 gm Btl 1 APPLIC TOPICAL (09:48)
[2021-01-30] MEDS: pantoprazole DR 40 mg Tablet PO (09:48)
--- NOTE | 2021-01-30 10:00 | PC.NURSE ---
rcvd verbal order from Dr Arita for lasix 40mg IVP once. engineering writer put order in.
[2021-01-30] MEDS: FUROsemide 10 mg/mL SDV 4mL 40 MG IVP (10:13)
[2021-01-30 11:42] LABS: Glucose Point of Care 100 mg/dL (70-110)
--- NOTE | 2021-01-30 13:02 | P.DS_ITS ---
Discharge Providers Date of Admission: 01/28/21 00:53 Date of Discharge: January 30, 2021 Attending Provider at Admission: Magda Dennis MD Attending Provider at Discharge: Bran Arita MD Primary Care Provider: Octaviano Sue MD Diagnoses at Discharge Discharge Diagnosis (1) Sepsis: Status: Acute (2) UTI (urinary tract infection): Status: Acute (3) [place] (acute kidney injury): Status: Acute (4) Intractable nausea and vomiting: Status: Acute (5) Bilateral pulmonary embolism: Status: Acute (6) Chronic kidney disease, stage III (moderate): Status: Acute (7) COPD (chronic obstructive pulmonary disease): Status: Acute Permanent problem details: -oxygen dependent Qualifiers: COPD type: COPD with acute exacerbation Qualified Code(s): J44.1 - Chronic obstructive pulmonary disease with (acute) exacerbation (8) Pulmonary nodule, right: Status: Acute Permanent problem details: Concern for malignancy (9) Anemia: Status: Acute Reason for Visit Reason for Visit: PAIN AND FLUID Hospital Course Hospital Course This is a 45-year-old female with a past medical history of acute on chronic anemia, history of PE status post IVC filter placement, COPD, chronic pain, history recurrent UTIs, history of intractable nausea vomiting abdominal pain who presents to [facility] due to abdominal pain, nausea, vomiting Patient was admitted to [facility] for sepsis secondary to UTI, CT scan did not show any evidence of pyelonephritis, no obstructive uropathy, she received IV fluids, Primaxin for antibiotic coverage, and clinically monitored. Her blood cultures have been unremarkable, urine cultures show E. coli sensitive to Primaxin and Macrobid. Blood draws were difficult, her blood pressures remained soft throughout her hospitalization, she is asymptomatic, afebrile, no lightheadedness, dizziness, ambulating without significant symptomatology, lactic acid was 1.8, no significant leukocytosis, pro-Yoel was within normal range and CRP 34.6 were within normal range. Discharged on 7 remaining days of Macrobid, follow-up with urology as outpatient. Patient was advised if she were to have lightheadedness, dizziness, fevers, abdominal pain go to emergency room. Patient was discharged on a short supply of Percocet for abdominal pain, advised that we will not give her any further pain medications, nor will I give her morphine. Physical Exam Const: COMMON NORMALS: no acute distress and patient oriented x3 GENERAL APPEARANCE: comfortable Resp: COMMON NORMALS: normal respiratory effort, No retractions, No use of accessory muscles and clear to auscultation bilaterally AUSCULTATION: clear to auscultation bilaterally Cardio: COMMON NORMALS: regular rate, regular rhythm, S1 normal heart sound present, S2 normal heart sound present, No gallops present (Cardio), No clicks present (Cardio) and No murmurs present (Cardio) RATE: regular rate RHYTHM: regular rhythm HEART SOUNDS: S1 normal heart sound present and S2 normal heart sound present GI: COMMON NORMALS: Normal to inspection, nondistended, normoactive bowel sounds present and Soft to palpation PALPATION: Yes Soft to palpation Extremity: COMMON NORMALS: normal to inspection and no pedal edema Neuro: COMMON NORMALS: patient oriented x3, CN's II-XII intact bilaterally, moves all extremities and no focal motor deficits Discharge Data Data Completed and Pending: Completed Studies During Hospitalization Category Date Time Status CT abdomen pelvis wo con [id number] Urge nt Cat Scan 01/27/21 22:15 Completed XR chest 1V nichole ble [id number] Urgent Exams 01/27/21 21:09 Completed Pending at discharge Category Date Time Status Blood Culture Sta t Lab 01/28/21 01:01 Results C Reactive Protei n AM LABS Lab 01/31/21 04:00 Ordered C Reactive Protei n AM LABS Lab 02/01/21 04:00 Ordered Complete Blood Co unt w/Auto AM LABS Lab 01/31/21 04:00 Ordered Complete Blood Co unt w/Auto AM LABS Lab 02/01/21 04:00 Ordered Comprehensive Met abolic Panel AM LA BS Lab 01/31/21 04:00 Ordered Comprehensive Met abolic Panel AM LA BS Lab 02/01/21 04:00 Ordered Lactate (Lactic A jhonny level) AM LABS Lab 01/31/21 04:00 Ordered Lactate (Lactic A jhonny level) AM LABS Lab 02/01/21 04:00 Ordered Magnesium AM LABS Lab 01/31/21 04:00 Ordered Magnesium AM LABS Lab 02/01/21 04:00 Ordered NT Pro B Type Suzi riuretic Pept QAM Lab 01/31/21 06:00 Ordered NT Pro B Type Suzi riuretic Pept QAM Lab 02/01/21 06:00 Ordered Phosphorus AM LAB S Lab 01/31/21 04:00 Ordered Phosphorus AM LAB S Lab 02/01/21 04:00 Ordered Procalcitonin AM LABS Lab 01/31/21 04:00 Ordered Procalcitonin AM LABS Lab 02/01/21 04:00 Ordered Prothrombin Time INR AM LABS Lab 01/31/21 04:00 Ordered Prothrombin Time INR AM LABS Lab 02/01/21 04:00 Ordered Thyroid Stimulati ng Hormone Stat Lab 01/30/21 12:53 Ordered Labs from last 24 hours 01/30/21 01/30/21 01/29/21 11:40 06:19 20:56 WBC RBC Hgb Hct MCV MCH MCHC RDW Plt Count MPV Neut % (Auto) Lymph % (Auto) [place] % (Auto) Eos % (Auto) Baso % (Auto) Neut # (Auto) Lymph # (Auto) [place] # (Auto) Eos # (Auto) Baso # (Auto) Nucleated RBC % (a uto) Nucleated RBCs # Sodium Potassium Chloride Carbon Dioxide Anion Gap BUN Creatinine GFR Calculation Glucose POC Glucose 100 84 95 Calculated Osmolal ity Lactate Calcium Magnesium Total Bilirubin AST ALT Alkaline Phosphata se C-Reactive Protein NT-Pro-B Natriuret Pep Total Protein Albumin Globulin Procalcitonin 01/29/21 01/29/21 01/29/21 19:00 19:00 19:00 WBC 4.5 RBC 2.87 L Hgb 7.3 L Hct 25.5 L MCV 88.9 MCH 25.4 L MCHC 28.6 L RDW 23.4 H Plt Count 212 MPV 9.9 Neut % (Auto) 68.1 Lymph % (Auto) 15.1 [place] % (Auto) 9.7 Eos % (Auto) 5.4 Baso % (Auto) 1.3 Neut # (Auto) 3.03 Lymph # (Auto) 0.7 L [place] # (Auto) 0.4 Eos # (Auto) 0.2 Baso # (Auto) 0.1 Nucleated RBC % (a uto) 0 Nucleated RBCs # 0.0 Sodium 131 L Potassium 4.4 Chloride 100 Carbon Dioxide 21 L Anion Gap 14.4 BUN 8 Creatinine 1.0 H GFR Calculation 59.7 L Glucose 94 POC Glucose Calculated Osmolal ity 270 L Lactate 1.8 Calcium 6.2 L Magnesium 1.4 L Total Bilirubin 0.5 AST 10 ALT 8 Alkaline Phosphata se 234 H C-Reactive Protein 34.7 H NT-Pro-B Natriuret Pep 1976 H Total Protein 5.3 L Albumin 1.9 L Globulin 3.4 Procalcitonin 0.24 01/29/21 16:40 WBC RBC Hgb Hct MCV MCH MCHC RDW Plt Count MPV Neut % (Auto) Lymph % (Auto) [place] % (Auto) Eos % (Auto) Baso % (Auto) Neut # (Auto) Lymph # (Auto) [place] # (Auto) Eos # (Auto) Baso # (Auto) Nucleated RBC % (a uto) Nucleated RBCs # Sodium Potassium Chloride Carbon Dioxide Anion Gap BUN Creatinine GFR Calculation Glucose POC Glucose 106 Calculated Osmolal ity Lactate Calcium Magnesium Total Bilirubin AST ALT Alkaline Phosphata se C-Reactive Protein NT-Pro-B Natriuret Pep Total Protein Albumin Globulin Procalcitonin Vitals: Last Vital Signs Temp 97.7 F 01/30/21 11:08 Pulse 98 01/30/21 11:08 Resp 18 01/30/21 11:08 BP 90/56 01/30/21 11:08 Pulse Ox 100 01/30/21 11:08 Discharge Plan Discharge Patient Disposition: Home Condition: Stable Prescriptions: New oxycodone 5 mg tablet 2.5 mg PO DAILY 5 Days Qty: 2.5 RF: 0 nitrofurantoin monohyd/m-cryst [Macrobid] 100 mg capsule 100 mg PO BID 7 Days Qty: 14 RF: 0 Continued epinephrine [EpiPen 2-Tim] 0.3 mg/0.3 mL auto-injector 0.3 mg IM PRN PRN (Reason: Allergic Reaction) RF: 0 albuterol sulfate [Ventolin HFA] 90 mcg/actuation HFA aerosol inhaler See Rx Instructions .ROUTE .COMPLEX Qty: 18 RF: 3 potassium chloride [Klor-Con M20] 20 mEq tablet,ER particles/crystals 20 meq PO BID@0600,1800 RF: 0 budesonide 0.25 mg/2 mL suspension for nebulization 0.25 mg INHALATION BID@0600,1800 RF: 0 folic acid 1 mg tablet 1 mg PO DAILY@0600 RF: 0 fluticasone propionate [Flonase Allergy Relief] 50 mcg/actuation spray,suspension 1 spray INTRANASAL BID@0600,1800 RF: 0 cholecalciferol (vitamin D3) 125 mcg (5,000 unit) tablet 5,000 unit PO DAILY@0600 RF: 0 thiamine mononitrate (vit B1) [Vitamin B-1 (mononitrate)] 100 mg tablet 100 mg PO DAILY@0600 RF: 0 Spiriva Respimat 2.5 mcg/actuation mist 2 puff INHALATION DAILY@0600 RF: 0 levothyroxine 200 mcg capsule 200 mcg PO DAILY@0600 RF: 0 tizanidine [Zanaflex] 2 mg capsule 2 mg PO Q12H PRN (Reason: muscle spasticity) Qty: 10 RF: 0 ipratropium-albuterol 0.5 mg-3 mg(2.5 mg base)/3 mL solution for nebulization 3 ml INHALATION Q6H Qty: 15 RF: 0 albuterol sulfate 0.63 mg/3 mL solution for nebulization 0.63 mg INHALATION Q4H PRN (Reason: Shortness Of Breath) RF: 0 Incruse Ellipta 62.5 mcg/actuation blister with device 1 inh INHALATION DAILY@0600 RF: 0 clonazepam 0.5 mg tablet 0.25 mg PO BID PRN (Reason: anxiety) Qty: 14 RF: 0 polyethylene glycol 3350 17 gram Powder In Packet 17 g PO DAILY Qty: 30 RF: 0 magnesium oxide 400 mg (241.3 mg magnesium) Tablet 400 mg PO BID Qty: 60 RF: 0 multivitamin with folic acid [Thera] 400 mcg Tablet 1 tab PO DAILY Qty: 30 RF: 0 sennosides-docusate sodium 8.6-50 mg Tablet 1 tab-cap PO BID Qty: 60 RF: 0 pantoprazole 40 mg tablet,delayed release (DR/EC) 40 mg PO BID@0600,1800 Qty: 60 RF: 0 liothyronine 25 mcg tablet 25 mcg PO DAILY RF: 0 ondansetron HCl [Zofran] 4 mg tablet 4 mg PO DAILY PRN (Reason: nausea and vomiting) 4 Days Qty: 12 RF: 0 Keppra 500 mg Tablet See Rx Instructions .ROUTE .COMPLEX RF: 0 Changed furosemide 40 mg tablet 40 mg PO DAILY 30 Days Qty: 30 RF: 0 levothyroxine 50 mcg Tablet 75 mcg PO DAILY@0600 30 Days Qty: 30 RF: 0 Discontinued promethazine 12.5 mg suppository [address] TID PRN (Reason: nausea and vomiting) Qty: 12 RF: 0 ondansetron 4 mg tablet,disintegrating 4 mg PO Q8H PRN (Reason: nausea and vomiting) Qty: 10 RF: 0 potassium chloride 20 mEq packet 40 meq PO TID Qty: 6 RF: 0 morphine 15 mg Tablet 15 mg PO Q12H PRN (Reason: Severe Pain) Qty: 20 RF: 0 morphine 15 mg tablet 15 mg PO Q6H PRN (Reason: pain) Qty: 10 RF: 0 doxycycline hyclate 100 mg tablet 100 mg PO DAILY RF: 0 Discharge Orders: Discharge Order (Routine); Ordered 01/30/21 Ordered By: Bran Arita Referrals: Octaviano Sue MD [Primary Care Provider] - Garrison Schwab MD [Physician] - 1 month (recurrent uti) Jessica Jaffe MD [Physician] - 02/01/21 4:00 pm Discharge Diet: Cardiac Discharge Activity: Resume usual activity and Increase activity as tolerated Patient Instructions: Opioid Safety Activity Restrictions/Additional Instructions: -Follow-up with primary care provider -Continue antibiotics for 7 days -Follow-up with urology for recurrent UTIs -Use pain medication sparingly -If have recurrent fevers go to the emergency room Discharge Attestations Time Spent in Discharge Care*: greater than 30 min Status at Discharge: Cognitive status at discharge: cognitively intact , Behavioral status at discharge: cooperative , Quality Metrics Clinical Quality Measures During this hospital stay, did patient experience: None Coding Level of Care Code Acute Chg FW DC note Exam Detailed Diagnoses Sepsis A41.9 UTI (urinary tract infection) N39.0 [place] (acute kidney injury) N17.9 Intractable nausea and vomiting R11.2 Bilateral pulmonary embolism I26.99 Chronic kidney disease, stage III (moderate) N18.3 COPD (chronic obstructive pulmonary disease) J44.1 COPD type: COPD with acute exacerbation Pulmonary nodule, right R91.1 Anemia D64.9
--- NOTE | 2021-01-30 15:04 | PC.NURSE ---
patient and family given discharge instructions, both verbalized understanding of instructions. IV removed and covered with 2x2 and coban. patient taken to private vehicle via wheelchair by staff. patient requested oxycodone script be sent to [facility] and not [facility], because [facility] is closed today. sheet writer notified Dr Arita and he said ok.
== END 2021-01-30 15:08 | disposition home or self-care (01) | DRG 872 ==
LOC: ER 01-28 00:55 → MEDSURG 01-28 01:09
PROVIDERS: Admitting Provider Internal Medicine; Emergency Provider Emergency Medicine; PCP Internal Medicine; Visit Provider Family Medicine
DX: A41.9 Sepsis, unspecified organism (principal); N39.0 Urinary tract infection, site not specified; I50.32 Chronic diastolic (congestive) heart failure; J44.1 Chronic obstructive pulmonary disease with (acute) exacerbation; E87.2 Acidosis; N17.9 Acute kidney failure, unspecified; Z68.41 Body mass index [BMI] 40.0-44.9, adult; I89.0 Lymphedema, not elsewhere classified; D63.1 Anemia in chronic kidney disease; Z86.718 Personal history of other venous thrombosis and embolism; Z86.711 Personal history of pulmonary embolism; F10.10 Alcohol abuse, uncomplicated; Z88.0 Allergy status to penicillin; K22.70 Barrett's esophagus without dysplasia; F31.9 Bipolar disorder, unspecified; N18.30 Chronic kidney disease, stage 3 unspecified; Z86.19 Personal history of other infectious and parasitic diseases; K44.9 Diaphragmatic hernia without obstruction or gangrene; E03.9 Hypothyroidism, unspecified; R56.9 Unspecified convulsions; Z79.51 Long term (current) use of inhaled steroids; B96.20 Unspecified Escherichia coli [E. coli] as the cause of diseases classified elsewhere; Z87.440 Personal history of urinary (tract) infections; G89.29 Other chronic pain; R21 Rash and other nonspecific skin eruption; R91.8 Other nonspecific abnormal finding of lung field; E86.0 Dehydration; Z99.81 Dependence on supplemental oxygen; Z89.021 Acquired absence of right finger(s); E66.9 Obesity, unspecified
CPT/HCPCS: 36415; 36416; 71045; 74176; 80053; 81001; 82962; 83605; 83690; 83735; 83880; 84145; 84443; 85025; 86140; 87040; 87077; 87086; 87186; 96365; 96375; 99291; J0743; J0744; J1170; J1200; J1940; J2270; J2405; J2765; J3490; J7030; J7050

== ENCOUNTER 2021-02-08 16:32 | Inpatient (IN) | payer MEDICARE, MEDICAID, SELFPAY ==
[2021-02-08] VITALS (13 sets, daily range): BP systolic 70–153; BP diastolic 44–67; PULSE 95–131; RESP 20–34; TEMP 36.6–36.9; O2SAT 97–100; BMI 35.4
--- NOTE | 2021-02-08 16:48 | XRR_ITS ---
PROCEDURE INFORMATION: Exam: XR Chest Exam date and time: 02/08/2021 4:51 PM Age: 45 years old Clinical indication: Shortness of breath; Additional info: Cough TECHNIQUE: Imaging protocol: XR of the chest. Views: 1 view. Total images: 1 COMPARISON: CR (CHEST, ) 01/27/2021 9:35 PM FINDINGS: Lungs: Diminished inspiratory effort. Vascular crowding in the lung bases. Subsegmental atelectasis left lung base. Pleural spaces: Unremarkable. No pleural effusion. No pneumothorax. Heart/Mediastinum: Cardiac structures and configuration with cardiomegaly. Large intrathoracic stomach/hiatal hernia. Bones/joints: Unremarkable as visualized. Other findings: Obesity. XR/XR chest 1V portable [id number] IMPRESSION: 1. Diminished inspiratory effort. 2. Vascular crowding in the lung bases. 3. Subsegmental atelectasis left lung base.
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
--- NOTE | 2021-02-08 16:52 | ECG_ITS ---
[facility] Test Date: 2021-02-08 Pat Name: Delores Mckeon Department: Room: Gender: Female Support Director: : 1975 Requested By: Devin Pressley Order Number: [id number] Garland MD: Odalis Johnston M.D. Measurements Intervals [place] Rate: 117 P: 71 NE: 205 QRS: 16 QRSD: 75 T: 219 QT: 236 QTc: 330 Interpretive Statements SINUS TACHYCARDIA LOW QRS VOLTAGE IN PRECORDIAL LEADS [QRS DEFLECTION < 1.0 mV IN CHEST LEADS] POSSIBLE ANTERIOR MYOCARDIAL INFARCTION [30 ms Q WAVE IN V3/V4, OR R < 0.2 mV IN V4], OF INDETERMINATE AGE Compared to ECG 01/19/2021 20:29:09 No significant changes Electronically Signed On 02-08-2021 22:01:57 CDT by Odalis Johnston M.D. [email or web address]
[2021-02-08 17:47] LABS: Add Urine Microscopic? YES; Bilirubin Urine 1+ (Negative); Blood Urine 1+ (Negative); Glucose Urine UA Norm (Normal); Ketones Urine Negative (Negative); Leukocyte Esterase Urine 1+ (Negative); Nitrate Urine Negative (Negative); Protein Urine Trace (Negative); Urine Appearance Clear (CLEAR); Urine Color Yellow (Yellow); Urobilinogen Urine 4 mg/dL (Negative); pH Urine 5 (5-7)
[2021-02-08 17:48] LABS: Add Urine Culture? No; Bacteria Urine 1+ /hpf; RBC Urine 0-4 /hpf (0-2); Squamous Epithelial Cell Urine 0-4 /hpf (0-5); WBC Urine 0-4 /hpf (0-5)
[2021-02-08 18:56] LABS: Troponin(5th) Baseline 9 ng/L (0-10)
[2021-02-08 19:06] LABS: Alanine Aminotransferase 12 U/L (0-33); Albumin Level 1.8 g/dL (3.5-5.2); Alkaline Phosphatase 335 IU/L (35-105); Aspartate Amino Transferase 15 U/L (0-32); Blood Urea Nitrogen 9 mg/dL (6-20); Calcium 6.1 mg/dL (8.5-10.5); Carbon Dioxide 19 mmol/L (22-29); Chloride 90 mmol/L (98-107); Globulin 3.7 g/dL (1.3-4.6); Glomerular Filtration Rate 40.5 mL/min (90-130); Glucose 84 mg/dL (65-115); NT Pro B Type Natriuretic Pept 439 pg/mL (0-125); Osmolality Calculated 260 mOsm/kg (285-295); Sodium 126 mmol/L (136-145); Total Bilirubin 0.9 mg/dL (0.15-1.2); Total Protein 5.5 g/dL (6.6-8.7)
[2021-02-08] MEDS: vancomycin 1,000 MG in sodium chloride 0.9% 250 ML 250 MG IV (19:31)
[2021-02-08] MEDS: sodium chloride 0.9% 1,000 ML 999 ML IV (19:40)
[2021-02-08 19:47] LABS: Alcohol Level 19 mg/dL (0-10)
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
[2021-02-08 20:05] LABS: INR 1.39 (0.8-1.2)
[2021-02-08 20:06] LABS: Basophils # 0.1 10^3/uL (0.0-0.1); Basophils % 0.5 %; Eosinophils # 0.6 10^3/uL (0.0-0.8); Eosinophils % 2.4 %; Hematocrit 23.8 % (37.0-47.0); Hemoglobin 7.2 g/dL (11.5-15.3); Mean Corpuscular HGB Conc 30.3 g/dL (30.0-36.0); Mean Corpuscular Hemoglobin 25.4 pg (28.0-34.0); Mean Corpuscular Volume 83.8 fL (81-99); Mean Platelet Volume 10.6 fL (7.4-10.4); Monocytes # 0.9 10^3/uL (0.2-0.9); Monocytes % 3.6 %; Neutrophils % 88.8 %; Nucleated Red Blood Cells % 0 %; Partial Thromboplastin Time 34.6 SECONDS (23.9-36.7); Platelet Count 244 10^3/cmm (130-400); Red Blood Count 2.84 10^6/uL (4.1-5.3); Red Cell Distribution Width 20.1 % (12.1-15.1)
[2021-02-08 20:27] LABS: Reflex Lactate Order REFLEX LACTIC ORDERD
[2021-02-08] MEDS: levofloxacin-dextrose 5 % 750 MG/150 ML PREMIX 100 MG IV (20:30)
[2021-02-08 20:56] LABS: Amphetamines Screen Urine Negative (Negative); Barbiturates Screen Urine Negative (Negative); Benzodiazepines Screen Urine Positive (Negative); Cocaine Screen Urine Negative (Negative); Opiate Screen Urine Positive (Negative); PCP Screen Urine Negative (Negative); THC Screen Urine Negative (Negative)
[2021-02-08 21:33] LABS: ABG PCO2 35.3 mmHg (35-45); ABG PH Result 7.47 (7.35-7.45); Arterial Blood Gas Hematocrit 21.7 % (37-47); Base Excess ABG 1.9 mmol/L (-2.0-2.0); Blood Gas Allen Test Pos; Blood Gas Operator Identificat JB; Blood Gas Sample Site Radial, right; Blood Gas Sample Type Arterial; HCO3 ABG 25.7 mmol/L (22-26); Oxygen Device NC
[2021-02-08 21:53] LABS: C Reactive Protein 53.4 mg/L (0.0-4.9); Phosphorus 2.7 mg/dL (2.5-4.5)
[2021-02-08 21:55] LABS: Lactic Acid level (Lactate) 4.3 mmol/L (0.5-2.2)
[2021-02-08 21:59] LABS: Procalcitonin 7.25 ng/mL (0-0.5)
[2021-02-08] MEDS: LORazepam 1 mg Tablet PO (22:09)
[2021-02-08] MEDS: ondansetron 2 mg/ML SDV 2 mL 4 MG IVP (23:04)
--- NOTE | 2021-02-08 23:14 | PC.PHAR ---
Vancomycin is dosed at 1500mg IVPB every 24 hours to produce a predicted trough level of 15.50 (population based pharmacokinetic analysis). A trough level has been ordered from the lab to be obtained before the fourth dose to confirm and adjust if needed.
[2021-02-09] VITALS (100 sets, daily range): BP systolic 64–130; BP diastolic 38–91; PULSE 30–98; RESP 16–30; TEMP 36.5–36.7; O2SAT 87–100
[2021-02-09] MEDS: fluconazole premix 400 MG/200 ML PIGGYBACK 200 MG IV (00:30)
[2021-02-09] MEDS: aztreonam 2,000 MG in sodium chloride 0.9% (plus) 100 ML 200 MG IV ×2 (00:31→06:02)
[2021-02-09] MEDS: oxyCODONE 5 mg IR Tab/Cap PO ×3 (00:37→18:22)
[2021-02-09] MEDS: magnesium sulfate premix 4 GM/100 ML PREMIX IV (02:47)
[2021-02-09] MEDS: nystatin powder 15 gm Btl 1 APPLIC TOPICAL ×2 (03:09→17:44)
[2021-02-09] MEDS: sodium chloride 0.9% 1,000 ML 100 ML IV (03:09)
[2021-02-09] MEDS: vancomycin 1,500 MG/300 ML PIGGYBACK 150 MG IV (03:45)
[2021-02-09] MEDS: LORazepam 2 mg/mL INJ 1 mL IVP (03:54)
--- NOTE | 2021-02-09 05:26 | PC.NURSE ---
ASSUMING CARE Patient transferred to ICU from ED by NENA Lopez. High flow nasal cannula at 5L. Normal saline bolus infusing. Orders for hylton catheter to be placed due to skin conditions. Blisters over bilateral feet, abrasions and blisters over entirety of body. Bilateral legs 3+ weeping edema. Panis and beneath breasts excoriated. Patient bathed, hylton catheter inserted and interdry placed in skin folds. Dr. Ann contacted to see about order for nystatin powder.
[2021-02-09] MEDS: fluticasone nasal spray 16gm Btl 1 SPRAY INTRANASAL ×2 (06:00→17:43)
[2021-02-09] MEDS: folic acid 1 mg Tablet PO (06:01)
[2021-02-09] MEDS: potassium chloride ER 20 mEq Tablet PO ×2 (06:01→17:45)
[2021-02-09] MEDS: thiamine 100 mg Tablet PO (06:01)
[2021-02-09] MEDS: pantoprazole DR 40 mg Tablet PO ×2 (06:01→17:45)
[2021-02-09] MEDS: levothyroxine 100 mcg Tablet 200 MCG PO (06:01)
--- NOTE | 2021-02-09 08:27 | PC.CHAP ---
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 assembler convertible top visit [] Patient/Family/Request visit [] Outpatient visit [] Follow-up visit [] Physician referral [] Code/Alert [x] Routine visit [] Staff referral [] Actively dying [x] Patient sleeping [] Family support [] [] Out of room [] Palliative care [] [] Receiving care in room [] Pre-surgical visit [] Trauma [] Long length of stay [x] ICU visit [] Other: Relational/Emotional Strength [] Patient feels connected with others/family/visitors/staff [] Distress [] Loneliness/isolation [] Abandonment Spirituality of Patient [] Person of Angy [] Attends Shinto of their Angy [] Believes in Prayer [] Reads Bible or Taoism materials [] There are Spiritual issues to be addressed Vegetable Inspector Interventions [x] Prayer [] Active listening [] Non-anxious presence [] Spiritual/emotional support [] Crisis/trauma care [] Spiritual counseling [] Bereavement support [] Provided bereavement packet [] Provided Bible/devotional materials [] Provided toy/stuffed animal, coloring book to patient or family member [] Provided Communion [] Anointing/[place] [] Salvation [x] Completed spiritual assessment [] Other: Impact on Illness or Injury [] Angry [] Fearful [] Anxious [] Often cries [] Exhaustion [] Unable to work [] Unable to attend confucianism [] Unable to walk/stand [] Unable to read [] Unable to drive [] Unable to eat/drink [] Unable to sleep [] Unable to be with family [] Patient intubated [] Other: Summary Time spent with patient
[2021-02-09] MEDS: multivitamin therapeutic Tablet 1 TAB PO (09:02)
[2021-02-09] MEDS: levETIRAcetam 500 mg Tablet 1000 MG PO ×2 (09:02→17:44)
[2021-02-09] MEDS: sennosides-docusate Tablet 1 TAB PO ×2 (09:02→17:44)
[2021-02-09] MEDS: magnesium oxide 400 mg tablet PO ×2 (09:02→17:44)
[2021-02-09] MEDS: lactobacillus 1 Tablet 1 TAB PO ×3 (09:02→17:44)
[2021-02-09] MEDS: budesonide 0.5 mg/2 mL Neb 0.25 MG INHALATION (09:23)
[2021-02-09] MEDS: CLONazepam 0.5 mg Tablet 0.25 MG PO (09:27)
--- NOTE | 2021-02-09 11:09 | P.PN_ITS ---
Vitals/I&O/Wt Last Vital Signs Temp 97.8 F 02/09/21 09:15 Pulse 85 02/09/21 10:30 Resp 22 H 02/09/21 10:30 BP 92/74 02/09/21 10:30 Pulse Ox 97 02/09/21 10:30 02/08/21 02/09/21 02/09/21 22:59 06:59 14:59 Intake Total 150 / 150 4104.36 / 4254.36 450 / 450 Output Total 375 / 375 Balance 150 / 150 3729.36 / 3879.36 450 / 450 Weight last 48 hrs Weight 117.571 kg Weight 90.718 kg Physical Exam Const: COMMON NORMALS: patient oriented x3 HENMT: COMMON NORMALS: normocephalic and atraumatic HEAD & SCALP: normocephalic and atraumatic Chest: CHEST: Yes Symmetrical chest wall rise Resp: COMMON NORMALS: normal respiratory effort EFFORT & INSPECTION: Yes symmetric chest movement OTHER: Minimal Basal Crackles Present in both Lungs Dailey. Cardio: COMMON NORMALS: regular rate, regular rhythm, S1 normal heart sound present, S2 normal heart sound present, No gallops present (Cardio), No murmurs present (Cardio), No rub (Cardio) and Peripheral pulses 2+ throughout RATE: regular rate RHYTHM: regular rhythm HEART SOUNDS: S1 normal heart sound present and S2 normal heart sound present PERIPHERAL PULSES: Peripheral pulses 2+ throughout GI: COMMON NORMALS: Normal to inspection, nondistended, normoactive bowel sounds present, Soft to palpation, non-tender, No hepatosplenomegaly present and no masses AUSCULTATION: Yes normoactive bowel sounds PALPATION: Yes Soft to palpation and Yes No hepatosplenomegaly present RECTAL EXAM: deferred : OTHER: Erythema and excoriation in the groin otherwise normal external genitalia Extremity: NARRATIVE EXTREMITY EXAM: B/L L/E erythema and redness present. Neuro: COMMON NORMALS: patient oriented x3 Skin: NARRATIVE SKIN EXAM: Excoriation under both breasts, under pannus, in the groin Urinary Catheter Management^: Cosme: Cath Placed During This Visit: yes Reason for Continuing Indwelling Catheter: Assist Healing of Perineal & Sacral Wounds- Incontinent Patients Urinary Catheter Date of Insertion: 02/08/21 Urinary Catheter Time of Insertion: 23:15 Data : 02/09/21 13:50 06/10/21 13:50 Micro: Microbiology 02/08/21 18:13 Blood Culture - Preliminary Blood SPECIMEN COLLECTED 02/08/21 18:16 Blood Culture - Preliminary Blood SPECIMEN COLLECTED A&P Assessment and plan (1) Sepsis: Sepsis likely 2/2 l/e cellulitis. Lactic acid has appropriately trended down Procalcitonin : 7.25 X-ray chest: Vascular crowding in the lung bases. Blood culture Urine culture Sputum culture Vancomycin Imipenem Status: Acute Qualifiers: Sepsis acute organ dysfunction status: without acute organ dysfunction Sepsis type: sepsis due to unspecified organism Qualified Code(s): A41.9 - Sepsis, unspecified organism (2) Cellulitis: Plan as 1 Status: Acute Qualifiers: Site of cellulitis: other site Qualified Code(s): L03.818 - Cellulitis of other sites (3) Anemia: Severe normocytic anemia: Likely secondary to chronic alcohol abuse, nutritional deficiencies.She has recent EGD which was suggestive of gastritis, no other significant finding has been noted. H&H is dropped to: 6.5/ as compared to admission H&H of 7.2/. Will transfuse 2Us PRBC and Monitor CBC for now. Status: Chronic Qualifiers: Anemia type: iron deficiency Iron deficiency anemia type: unspecified iron deficiency Qualified Code(s): D50.9 - Iron deficiency anemia, unspecified (4) Seizure disorder: Continue KEPPRA 1000 MG PO BID Status: Chronic (5) Chronic alcohol abuse: Monitor For Withdrawal On CIWA Protocol Status: Chronic (6) Hyponatremia: Hypovolemic Hyponatremia. She has responded appropriately to I.V Hydration. Monitor BMP. Status: Acute (7) Hepatitis C: Status: Chronic (8) Chronic kidney disease, stage III (moderate): [place] CKD Stage 3 Likely 2/2 To sepsis Baseline SCR :0.7-1 Admission SCR : 1.4 Monitor BMP Avoid Nephrotoxic Status: Chronic Qualifiers: Chronic kidney disease stage 3 subtype: stage 3b (GFR 30-44) Qualified Code(s): N18.32 - Chronic kidney disease, stage 3b (9) Pulmonary embolism: She is not on Ac given her Prior h/o G.I Bleed.S/P IVC Filter Placement. Status: Chronic Qualifiers: Acute cor pulmonale presence: unspecified Chronicity: chronic Pulmonary embolism type: other Qualified Code(s): I27.82 - Chronic pulmonary embolism (10) COPD (chronic obstructive pulmonary disease): Status: Chronic Qualifiers: COPD type: COPD with acute exacerbation Qualified Code(s): J44.1 - Chronic obstructive pulmonary disease with (acute) exacerbation (11) Hypothyroidism: Continue Levothyroxine 25 mcg po Daily. Most Recent TSH ( 01/29 ): 17:30 Will order Repeat TSH as well as Free T3,Free T4 and Total T3 Status: Chronic Qualifiers: Hypothyroidism type: unspecified Qualified Code(s): E03.9 - Hypothyroidism, unspecified (12) Obesity (BMI 30.0-34.9): Status: Chronic (13) Hypokalemia: Status: Acute (14) Hypocalcemia: Corrected Serum Calcium : 7.4 1gm Calcium Gluconate I.V Monitor BMP. Status: Acute Additional A&P Information Code Status :Full code DVT Ppx: SCDs Attestations Medical Necessity Statement*: Patient needs to be in hospital for the management of sepsis. 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 Diagnoses Sepsis A41.9 Sepsis acute organ dysfunction status: without acute organ dysfunction Sepsis type: sepsis due to unspecified organism Cellulitis L03.818 Site of cellulitis: other site Anemia D50.9 Anemia type: iron deficiency Iron deficiency anemia type: unspecified iron deficiency Seizure disorder G40.909 Chronic alcohol abuse F10.10 Hyponatremia E87.1 Hepatitis C B19.20 Chronic kidney disease, stage III (moderate) N18.32 Chronic kidney disease stage 3 subtype: stage 3b (GFR 30-44) Pulmonary embolism I27.82 Acute cor pulmonale presence: unspecified Chronicity: chronic Pulmonary embolism type: other COPD (chronic obstructive pulmonary disease) J44.1 COPD type: COPD with acute exacerbation Hypothyroidism E03.9 Hypothyroidism type: unspecified Obesity (BMI 30.0-34.9) E66.9 Hypokalemia E87.6 Hypocalcemia E83.51
--- NOTE | 2021-02-09 13:49 | PC.NURSE ---
Midline placed, ready for use. Primary nurse notified.
[2021-02-09] MEDS: ondansetron 2 mg/ML SDV 2 mL 4 MG IVP (14:27)
[2021-02-09 14:41] LABS: Basophils # 0.1 10^3/uL (0.0-0.1); Basophils % 0.6 %; Eosinophils # 1.1 10^3/uL (0.0-0.8); Eosinophils % 10.2 %; Hematocrit 21.1 % (37.0-47.0); Lymphocytes # 0.7 10^3/uL (0.8-4.8); Lymphocytes % 6.3 %; Mean Corpuscular HGB Conc 30.8 g/dL (30.0-36.0); Mean Corpuscular Hemoglobin 25.7 pg (28.0-34.0); Mean Corpuscular Volume 83.4 fL (81-99); Mean Platelet Volume 10.3 fL (7.4-10.4); Monocytes # 0.3 10^3/uL (0.2-0.9); Monocytes % 2.7 %; Neutrophils # 8.19 10^3/uL (1.8-7.7); Nucleated Red Blood Cells % 0 %; Platelet Count 157 10^3/cmm (130-400); Red Blood Count 2.53 10^6/uL (4.1-5.3); Red Cell Distribution Width 19.9 % (12.1-15.1); White Blood Count 10.3 10^3/uL (4.0-10.0)
[2021-02-09 14:52] LABS: Hemoglobin 6.5 g/dL (11.5-15.3)
[2021-02-09 14:53] LABS: Slide Review Slide Review Perform
[2021-02-09 15:00] LABS: Lactate (Lactic Acid level) 1.8 mmol/L (0.5-2.2)
[2021-02-09 15:01] LABS: Alanine Aminotransferase 7 U/L (0-33); Albumin Level 1.9 g/dL (3.5-5.2); Alkaline Phosphatase 243 IU/L (35-105); Aspartate Amino Transferase 9 U/L (0-32); Blood Urea Nitrogen 9 mg/dL (6-20); Carbon Dioxide 24 mmol/L (22-29); Chloride 97 mmol/L (98-107); Globulin 2.5 g/dL (1.3-4.6); Glomerular Filtration Rate 59.7 mL/min (90-130); Glucose 88 mg/dL (65-115); Magnesium 1.9 mg/dL (1.7-2.3); Osmolality Calculated 270 mOsm/kg (285-295); Sodium 131 mmol/L (136-145); Total Bilirubin 0.7 mg/dL (0.15-1.2); Total Protein 4.4 g/dL (6.6-8.7)
[2021-02-09 15:04] LABS: Calcium 5.7 mg/dL (8.5-10.5)
[2021-02-09] MEDS: sodium chloride 0.9% 100 mL Bag 50 ML IV (15:45)
[2021-02-09] MEDS: LORazepam 2 mg Tablet PO (16:36)
[2021-02-09] MEDS: FUROsemide 40 mg Tablet PO (17:56)
[2021-02-09] MEDS: lidocaine 1% 5 ML in potassium chloride premix 100 ML 50 ML IV (20:55)
[2021-02-09] MEDS: fluconazole premix 200 MG/100 ML PREMIX 100 MG IV (22:57)
[2021-02-10] VITALS (43 sets, daily range): BP systolic 94–136; BP diastolic 46–108; PULSE 88–103; RESP 4–31; TEMP 36.2–36.6; O2SAT 90–100
[2021-02-10] MEDS: ondansetron 2 mg/ML SDV 2 mL 4 MG IVP (01:13)
[2021-02-10] MEDS: oxyCODONE 5 mg IR Tab/Cap PO ×2 (01:13→18:18)
--- NOTE | 2021-02-10 02:46 | PC.NURSE ---
ASSUMING CARE 1900 Patient is resting in bed on 2L nasal cannula. Alert and oriented x 4. Cosme catheter in place and draining. Patients significant other is at bedside. Patient is currently asleep with second unit of PRBC infusing. Patient somewhat hard to arouse without stimulation.
[2021-02-10] MEDS: LORazepam 2 mg Tablet PO (03:00)
[2021-02-10] MEDS: vancomycin 1,500 MG/300 ML PIGGYBACK 150 MG IV (03:39)
[2021-02-10 04:51] LABS: Basophils # 0.1 10^3/uL (0.0-0.1); Basophils % 0.9 %; Eosinophils # 1.1 10^3/uL (0.0-0.8); Eosinophils % 15.8 %; Hematocrit 26.6 % (37.0-47.0); Hemoglobin 8.1 g/dL (11.5-15.3); Lymphocytes # 0.5 10^3/uL (0.8-4.8); Lymphocytes % 7.8 %; Mean Corpuscular HGB Conc 30.5 g/dL (30.0-36.0); Mean Corpuscular Hemoglobin 25.8 pg (28.0-34.0); Mean Corpuscular Volume 84.7 fL (81-99); Mean Platelet Volume 10.4 fL (7.4-10.4); Monocytes # 0.3 10^3/uL (0.2-0.9); Monocytes % 3.9 %; Neutrophils # 4.78 10^3/uL (1.8-7.7); Neutrophils % 71.3 %; Nucleated Red Blood Cells % 0 %; Platelet Count 158 10^3/cmm (130-400); Red Blood Count 3.14 10^6/uL (4.1-5.3); Red Cell Distribution Width 19.5 % (12.1-15.1); White Blood Count 6.7 10^3/uL (4.0-10.0)
[2021-02-10 05:01] LABS: Anion Gap 9.3 (5-19); Blood Urea Nitrogen 10 mg/dL (6-20); Calcium 6.4 mg/dL (8.5-10.5); Carbon Dioxide 26 mmol/L (22-29); Chloride 103 mmol/L (98-107); Creatinine Clr Calc Pharmacy 79.1619; Glomerular Filtration Rate 53.5 mL/min (90-130); Glucose 95 mg/dL (65-115); Magnesium 1.6 mg/dL (1.7-2.3); Osmolality Calculated 279 mOsm/kg (285-295); Potassium 3.3 mmol/L (3.5-5.1); Sodium 135 mmol/L (136-145)
[2021-02-10 05:15] LABS: Thyroid Stimulating Hormone 31.91 uIU/mL (0.27-4.20)
[2021-02-10 05:16] LABS: Slide Review Slide Review Perform
[2021-02-10] MEDS: thiamine 100 mg Tablet PO (06:10)
[2021-02-10] MEDS: fluticasone nasal spray 16gm Btl 1 SPRAY INTRANASAL ×2 (06:10→18:24)
[2021-02-10] MEDS: pantoprazole DR 40 mg Tablet PO ×2 (06:10→18:24)
[2021-02-10] MEDS: potassium chloride ER 20 mEq Tablet PO ×2 (06:10→18:24)
[2021-02-10] MEDS: folic acid 1 mg Tablet PO (06:10)
[2021-02-10] MEDS: levothyroxine 100 mcg Tablet 200 MCG PO (06:10)
[2021-02-10] MEDS: budesonide 0.5 mg/2 mL Neb 0.25 MG INHALATION ×2 (08:02→21:18)
[2021-02-10] MEDS: ipratropium-albuterol 3 mL Neb INHALATION ×2 (08:02→21:19)
[2021-02-10] MEDS: magnesium oxide 400 mg tablet PO ×2 (08:47→18:18)
[2021-02-10] MEDS: lactobacillus 1 Tablet 1 TAB PO ×4 (08:47→20:05)
[2021-02-10] MEDS: levETIRAcetam 500 mg Tablet 1000 MG PO ×2 (08:47→18:20)
[2021-02-10] MEDS: multivitamin therapeutic Tablet 1 TAB PO (08:48)
[2021-02-10] MEDS: FUROsemide 10 mg/mL SDV 4mL 40 MG IVP ×2 (08:48→20:05)
[2021-02-10] MEDS: magnesium sulfate premix 2 GM/50 ML PIGGYBACK IV (08:48)
[2021-02-10] MEDS: sennosides-docusate Tablet 1 TAB PO ×2 (08:48→18:19)
[2021-02-10] MEDS: lidocaine 1% 5 ML in potassium chloride premix 100 ML 50 ML IV (09:09)
--- NOTE | 2021-02-10 09:37 | P.PN_ITS ---
Subjective Subjective: Interval history: Patient was seen and examined this morning,was anxious last night ended up getting ativan both PO and I.V.was sleepy this morning, but later on the day she was more awake and alert. Vitals and labs have been reviewed. Medications: Reviewed: Yes Vitals/I&O/Wt Last Vital Signs Temp 97.2 F L 02/10/21 08:00 Pulse 94 02/10/21 08:05 Resp 27 H 02/10/21 08:00 BP 120/64 02/10/21 08:00 Pulse Ox 95 02/10/21 08:00 02/09/21 02/10/21 02/10/21 22:59 06:59 14:59 Intake Total 1210 / 2860 545 / 3405 120 / 120 Output Total 200 / 1000 900 / 1900 Balance 1010 / 1860 -355 / 1505 120 / 120 Weight last 48 hrs Weight 118.433 kg Weight 117.571 kg Weight 90.718 kg Physical Exam Const: COMMON NORMALS: patient oriented x3 HENMT: COMMON NORMALS: normocephalic and atraumatic HEAD & SCALP: normocephalic and atraumatic Chest: CHEST: Yes Symmetrical chest wall rise Resp: COMMON NORMALS: normal respiratory effort EFFORT & INSPECTION: Yes symmetric chest movement OTHER: Minimal Basal Crackles Present in both Lungs Dailey. Cardio: COMMON NORMALS: regular rate, regular rhythm, S1 normal heart sound present, S2 normal heart sound present, No gallops present (Cardio), No murmurs present (Cardio), No rub (Cardio) and Peripheral pulses 2+ throughout RATE: regular rate RHYTHM: regular rhythm HEART SOUNDS: S1 normal heart sound present and S2 normal heart sound present PERIPHERAL PULSES: Peripheral pulses 2+ throughout GI: COMMON NORMALS: Normal to inspection, nondistended, normoactive bowel sounds present, Soft to palpation, non-tender, No hepatosplenomegaly present and no masses AUSCULTATION: Yes normoactive bowel sounds PALPATION: Yes Soft to palpation and Yes No hepatosplenomegaly present RECTAL EXAM: deferred : OTHER: Erythema and excoriation in the groin otherwise normal external genitalia Extremity: NARRATIVE EXTREMITY EXAM: B/L L/E erythema and redness present. Neuro: COMMON NORMALS: patient oriented x3 Skin: NARRATIVE SKIN EXAM: Excoriation under both breasts, under pannus, in the groin Urinary Catheter Management^: Cosme: Cath Placed During This Visit: yes Reason for Continuing Indwelling Catheter: Accurate Measurement of Urinary Output in Critically Ill Patients Urinary Catheter Date of Insertion: 02/08/21 Urinary Catheter Time of Insertion: 23:15 Data : 02/10/21 04:11 02/10/21 04:11 Micro: Microbiology 02/08/21 18:16 Blood Culture - Preliminary Blood NEGATIVE TO DATE 02/08/21 18:13 Blood Culture - Preliminary Blood NEGATIVE TO DATE A&P Assessment and plan (1) Sepsis: Sepsis likely 2/2 l/e cellulitis. Lactic acid has appropriately trended down Procalcitonin : 7.25 X-ray chest: Vascular crowding in the lung bases. Blood culture:NTD Urine culture Sputum culture Vancomycin Imipenem Status: Acute Qualifiers: Sepsis acute organ dysfunction status: without acute organ dysfunction Sepsis type: sepsis due to unspecified organism Qualified Code(s): A41.9 - Sepsis, unspecified organism (2) Cellulitis: Plan as 1 Status: Acute Qualifiers: Site of cellulitis: other site Qualified Code(s): L03.818 - Cellulitis of other sites (3) Anemia: Severe normocytic anemia: Likely secondary to chronic alcohol abuse, nutritional deficiencies.She has recent EGD which was suggestive of gastritis, no other significant finding has been noted. H&H is dropped to: 6.5/ as compared to admission H&H of 7.2/. Will transfuse 2Us PRBC and Monitor CBC for now. Status: Chronic Qualifiers: Anemia type: iron deficiency Iron deficiency anemia type: unspecified iron deficiency Qualified Code(s): D50.9 - Iron deficiency anemia, unspecified (4) Congestive heart failure: HFpEF Lasix 40 mg I.V Q12 H Daily I/O Charting Daily weight K>4, Mg>2 Status: Chronic Qualifiers: Heart failure chronicity: acute on chronic Heart failure type: diastolic Qualified Code(s): I50.33 - Acute on chronic diastolic (congestive) heart failure (5) Seizure disorder: Continue KEPPRA 1000 MG PO BID Status: Chronic (6) Chronic alcohol abuse: Monitor For Withdrawal On CIWA Protocol Status: Chronic (7) Hyponatremia: Hypovolemic Hyponatremia. She has responded appropriately to I.V Hydration. Monitor BMP. Status: Acute (8) Hepatitis C: Status: Chronic (9) Chronic kidney disease, stage III (moderate): [place] CKD Stage 3 Likely 2/2 To sepsis Baseline SCR :0.7-1 Admission SCR : 1.4 Monitor BMP Avoid Nephrotoxic Status: Chronic Qualifiers: Chronic kidney disease stage 3 subtype: stage 3b (GFR 30-44) Qualified Code(s): N18.32 - Chronic kidney disease, stage 3b (10) Pulmonary embolism: She is not on Ac given her Prior h/o G.I Bleed.S/P IVC Filter Placement. Status: Chronic Qualifiers: Acute cor pulmonale presence: unspecified Chronicity: chronic Pulmonary embolism type: other Qualified Code(s): I27.82 - Chronic pulmonary embolism (11) COPD (chronic obstructive pulmonary disease): Status: Chronic Qualifiers: COPD type: COPD with acute exacerbation Qualified Code(s): J44.1 - Chronic obstructive pulmonary disease with (acute) exacerbation (12) Hypothyroidism: Continue Levothyroxine 25 mcg po Daily. Most Recent TSH ( 01/29 ): 17:30 Will order Repeat TSH as well as Free T3,Free T4 and Total T3 Status: Chronic Qualifiers: Hypothyroidism type: unspecified Qualified Code(s): E03.9 - H ypothyroidism, unspecified (13) Obesity (BMI 30.0-34.9): Status: Chronic (14) Hypokalemia: Status: Acute (15) Hypocalcemia: Corrected Serum Calcium : 7.4 1gm Calcium Gluconate I.V Monitor BMP. Status: Acute Additional A&P Information Code Status :Full code DVT Ppx: SCDs Attestations Medical Necessity Statement*: Patient needs to be in hospital for management of sepsis. 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 Diagnoses Sepsis A41.9 Sepsis acute organ dysfunction status: without acute organ dysfunction Sepsis type: sepsis due to unspecified organism Cellulitis L03.818 Site of cellulitis: other site Anemia D50.9 Anemia type: iron deficiency Iron deficiency anemia type: unspecified iron deficiency Congestive heart failure I50.33 Heart failure chronicity: acute on chronic Heart failure type: diastolic Seizure disorder G40.909 Chronic alcohol abuse F10.10 Hyponatremia E87.1 Hepatitis C B19.20 Chronic kidney disease, stage III (moderate) N18.32 Chronic kidney disease stage 3 subtype: stage 3b (GFR 30-44) Pulmonary embolism I27.82 Acute cor pulmonale presence: unspecified Chronicity: chronic Pulmonary embolism type: other COPD (chronic obstructive pulmonary disease) J44.1 COPD type: COPD with acute exacerbation Hypothyroidism E03.9 Hypothyroidism type: unspecified Obesity (BMI 30.0-34.9) E66.9 Hypokalemia E87.6 Hypocalcemia E83.51
[2021-02-10] MEDS: nystatin powder 15 gm Btl 1 APPLIC TOPICAL ×2 (10:27→18:24)
[2021-02-10] MEDS: CLONazepam 0.5 mg Tablet 0.25 MG PO (18:19)
[2021-02-10] MEDS: LORazepam 2 mg/mL INJ 1 mL IVP (18:59)
[2021-02-10] MEDS: fluconazole premix 200 MG/100 ML PREMIX 100 MG IV (21:01)
--- NOTE | 2021-02-10 23:30 | PC.NURSE ---
Cdiff results received of positive findings. No new orders received. Continue care.
[2021-02-11] VITALS (35 sets, daily range): BP systolic 79–121; BP diastolic 47–89; PULSE 88–107; RESP 15–40; TEMP 36.1–37.2; O2SAT 87–100
[2021-02-11] MEDS: vancomycin 1,500 MG/300 ML PIGGYBACK 150 MG IV (02:34)
[2021-02-11] MEDS: oxyCODONE 5 mg IR Tab/Cap PO ×4 (02:34→20:53)
[2021-02-11] MEDS: LORazepam 2 mg/mL INJ 1 mL IM (02:34)
[2021-02-11] MEDS: pantoprazole DR 40 mg Tablet PO ×2 (05:44→17:35)
[2021-02-11] MEDS: fluticasone nasal spray 16gm Btl 1 SPRAY INTRANASAL ×2 (05:44→17:38)
[2021-02-11] MEDS: levothyroxine 100 mcg Tablet 200 MCG PO (05:44)
[2021-02-11] MEDS: potassium chloride ER 20 mEq Tablet PO ×2 (05:44→17:35)
[2021-02-11] MEDS: folic acid 1 mg Tablet PO (05:45)
[2021-02-11] MEDS: thiamine 100 mg Tablet PO (05:45)
--- NOTE | 2021-02-11 07:10 | PC.NURSE ---
Pt requesting more pain medication. Wanting Morphine or Dilaudid. Unable to keep her eyes focused or open and speech is slurred. Night nurse states that she sent a request to the night Dr asking for more pain medications and . declined. Stating the OXY IR is adequate.
[2021-02-11] MEDS: CLONazepam 0.5 mg Tablet 0.25 MG PO (08:13)
[2021-02-11] MEDS: multivitamin therapeutic Tablet 1 TAB PO (08:14)
[2021-02-11] MEDS: magnesium oxide 400 mg tablet PO ×2 (08:14→17:35)
[2021-02-11] MEDS: lactobacillus 1 Tablet 1 TAB PO ×4 (08:15→20:22)
[2021-02-11] MEDS: levETIRAcetam 500 mg Tablet 1000 MG PO ×2 (08:15→17:35)
[2021-02-11] MEDS: FUROsemide 10 mg/mL SDV 4mL 40 MG IVP (08:19)
[2021-02-11 09:08] LABS: Basophils # 0.1 10^3/uL (0.0-0.1); Basophils % 0.9 %; Eosinophils # 0.9 10^3/uL (0.0-0.8); Hematocrit 28.1 % (37.0-47.0); Hemoglobin 8.6 g/dL (11.5-15.3); Lymphocytes % 15.3 %; Mean Corpuscular HGB Conc 30.6 g/dL (30.0-36.0); Mean Corpuscular Hemoglobin 25.7 pg (28.0-34.0); Mean Corpuscular Volume 84.1 fL (81-99); Mean Platelet Volume 10.5 fL (7.4-10.4); Monocytes # 0.5 10^3/uL (0.2-0.9); Monocytes % 7.2 %; Neutrophils # 4.16 10^3/uL (1.8-7.7); Neutrophils % 62.4 %; Nucleated Red Blood Cells % 0 %; Platelet Count 181 10^3/cmm (130-400); Red Blood Count 3.34 10^6/uL (4.1-5.3); Red Cell Distribution Width 19.8 % (12.1-15.1); White Blood Count 6.7 10^3/uL (4.0-10.0)
[2021-02-11] MEDS: budesonide 0.5 mg/2 mL Neb 0.25 MG INHALATION ×2 (09:13→19:50)
[2021-02-11] MEDS: ipratropium-albuterol 3 mL Neb INHALATION ×2 (09:13→19:51)
[2021-02-11] MEDS: LORazepam 2 mg Tablet PO (09:23)
[2021-02-11 09:26] LABS: Anion Gap 12.1 (5-19); Blood Urea Nitrogen 7 mg/dL (6-20); Calcium 6.3 mg/dL (8.5-10.5); Carbon Dioxide 30 mmol/L (22-29); Chloride 99 mmol/L (98-107); Glomerular Filtration Rate 77.2 mL/min (90-130); Glucose 101 mg/dL (65-115); Osmolality Calculated 284 mOsm/kg (285-295); Potassium 3.1 mmol/L (3.5-5.1); Sodium 138 mmol/L (136-145)
--- NOTE | 2021-02-11 10:44 | DCPLANNER ---
IMM completed with pt on 02/11/21 @ 3171. Pt stated she understood IMM rights and a copy of rights were provided to pt.
[2021-02-11] MEDS: FUROsemide 10 mg/mL SDV 2mL 20 MG IVP (12:01)
[2021-02-11] MEDS: lidocaine 1% 5 ML in potassium chloride premix 100 ML 25 ML IV (12:03)
[2021-02-11] MEDS: nystatin powder 15 gm Btl 1 APPLIC TOPICAL ×2 (12:04→17:36)
--- NOTE | 2021-02-11 12:09 | P.PN_ITS ---
Subjective Subjective: Interval history: Patient was seen and examined this morning, no acute event overnight, robust urine output with diuresis, overall doing better. Medications: Reviewed: Yes Medication Review Details: I personally reviewed home medication list and medications/fluids received day of admission thus far. Vitals/I&O/Wt Last Vital Signs Temp 97.2 F L 02/10/21 16:00 Pulse 102 H 02/11/21 10:00 Resp 15 02/11/21 12:02 BP 102/72 02/11/21 10:00 Pulse Ox 96 02/11/21 09:05 02/10/21 02/11/21 02/11/21 22:59 06:59 14:59 Intake Total 950 / 1170 520 / 1690 240 / 240 Output Total 3101 / 4801 2600 / 7401 Balance -2151 / -3631 -2080 / -5711 240 / 240 Weight last 48 hrs Weight 113.426 kg Weight 118.433 kg Physical Exam Const: COMMON NORMALS: patient oriented x3 HENMT: COMMON NORMALS: normocephalic and atraumatic HEAD & SCALP: normocephalic and atraumatic Chest: CHEST: Yes Symmetrical chest wall rise Resp: COMMON NORMALS: normal respiratory effort EFFORT & INSPECTION: Yes symmetric chest movement OTHER: Minimal Basal Crackles Present in both Lungs Dailey. Cardio: COMMON NORMALS: regular rate, regular rhythm, S1 normal heart sound present, S2 normal heart sound present, No gallops present (Cardio), No murmurs present (Cardio), No rub (Cardio) and Peripheral pulses 2+ throughout RATE: regular rate RHYTHM: regular rhythm HEART SOUNDS: S1 normal heart sound present and S2 normal heart sound present PERIPHERAL PULSES: Peripheral pulses 2+ throughout GI: COMMON NORMALS: Normal to inspection, nondistended, normoactive bowel sounds present, Soft to palpation, non-tender, No hepatosplenomegaly present and no masses AUSCULTATION: Yes normoactive bowel sounds PALPATION: Yes Soft to palpation and Yes No hepatosplenomegaly present RECTAL EXAM: deferred : OTHER: Erythema and excoriation in the groin otherwise normal external genitalia Extremity: NARRATIVE EXTREMITY EXAM: B/L L/E erythema and redness present. Neuro: COMMON NORMALS: patient oriented x3 Skin: NARRATIVE SKIN EXAM: Excoriation under both breasts, under pannus, in the groin Urinary Catheter Management^: Cosme: Cath Placed During This Visit: yes Reason for Continuing Indwelling Catheter: Accurate Measurement of Urinary Output in Critically Ill Patients Urinary Catheter Date of Insertion: 02/08/21 Urinary Catheter Time of Insertion: 23:15 Data : 02/11/21 08:57 02/11/21 08:57 Micro: Microbiology 02/08/21 18:00 C.difficile Toxin B Gene (PCR) - Final Stool A&P Assessment and plan (1) Sepsis: Sepsis likely 2/2 l/e cellulitis. Lactic acid has appropriately trended down Procalcitonin : 7.25 X-ray chest: Vascular crowding in the lung bases. Blood culture:NTD Urine culture Sputum culture Vancomycin Imipenem Status: Acute Qualifiers: Sepsis acute organ dysfunction status: without acute organ dysfunction Sepsis type: sepsis due to unspecified organism Qualified Code(s): A41.9 - Seps is, unspecified organism (2) Cellulitis: Plan as 1 Status: Acute Qualifiers: Site of cellulitis: other site Qualified Code(s): L03.818 - Cellulitis of other sites (3) Congestive heart failure: HFpEF Lasix 40 mg I.V Q12 H Daily I/O Charting Daily weight K>4, Mg>2 Status: Chronic Qualifiers: Heart failure chronicity: acute on chronic Heart failure type: diastolic Qualified Code(s): I50.33 - Acute on chronic diastolic (congestive) heart failure (4) C. difficile diarrhea: Vancomycin 125 mg p.o. Q6H daily for 7 days Status: Acute (5) Anemia: Severe normocytic anemia: Likely secondary to chronic alcohol abuse, nutritional deficiencies.She has recent EGD which was suggestive of gastritis, no other significant finding has been noted. H&H is dropped to: 6.5/ as compared to admission H&H of 7.2/. Will transfuse 2Us PRBC and Monitor CBC for now. Status: Chronic Qualifiers: Anemia type: iron deficiency Iron deficiency anemia type: unspecified iron deficiency Qualified Code(s): D50.9 - Iron deficiency anemia, unspecified (6) Seizure disorder: Continue KEPPRA 1000 MG PO BID Status: Chronic (7) Chronic alcohol abuse: Monitor For Withdrawal On CIWA Protocol Status: Chronic (8) Hyponatremia: Hypovolemic Hyponatremia. She has responded appropriately to I.V Hydration. Monitor BMP. Status: Acute (9) Hepatitis C: Status: Chronic (10) Chronic kidney disease, stage III (moderate): [place] CKD Stage 3 Likely 2/2 To sepsis Baseline SCR :0.7-1 Admission SCR : 1.4 Monitor BMP Avoid Nephrotoxic Status: Chronic Qualifiers: Chronic kidney disease stage 3 subtype: stage 3b (GFR 30-44) Qualified Code(s): N18.32 - Chronic kidney disease, stage 3b (11) Pulmonary embolism: She is not on Ac given her Prior h/o G.I Bleed.S/P IVC Filter Placement. Status: Chronic Qualifiers: Acute cor pulmonale presence: unspecified Chronicity: chronic Pulmona ry embolism type: other Qualified Code(s): I27.82 - Chronic pulmonary embolism (12) COPD (chronic obstructive pulmonary disease): Status: Chronic Qualifiers: COPD type: COPD with acute exacerbation Qualified Code(s): J44.1 - Chronic obstructive pulmonary disease with (acute) exacerbation (13) Hypothyroidism: Continue Levothyroxine 25 mcg po Daily. Most Recent TSH ( 01/29 ): 17:30 Will order Repeat TSH as well as Free T3,Free T4 and Total T3 Status: Chronic Qualifiers: Hypothyroidism type: unspecified Qualified Code(s): E03.9 - Hypothyroidism, unspecified (14) Obesity (BMI 30.0-34.9): Status: Chronic (15) Hypokalemia: Status: Acute (16) Hypocalcemia: Corrected Serum Calcium : 7.4 1gm Calcium Gluconate I.V Monitor BMP. 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 difficile diarrhea A04.72 Anemia D50.9 Anemia type: iron deficiency Iron deficiency anemia type: unspecified iron deficiency Seizure disorder G40.909 Chronic alcohol abuse F10.10 Hyponatremia E87.1 Hepatitis C B19.20 Chronic kidney disease, stage III (moderate) N18.32 Chronic kidney disease stage 3 subtype: stage 3b (GFR 30-44) Pulmonary embolism I27.82 Acute cor pulmonale presence: unspecified Chronicity: chronic Pulmonary embolism type: other COPD (chronic obstructive pulmonary disease) J44.1 COPD type: COPD with acute exacerbation Hypothyroidism E03.9 Hypothyroidism type: unspecified Obesity (BMI 30.0-34.9) E66.9 Hypokalemia E87.6 Hypocalcemia E83.51
--- NOTE | 2021-02-11 14:05 | PC.NURSE ---
Pt refuses to be up in chair. Assisted back to bed.
[2021-02-11] MEDS: guaiFENesin-dextromethorphan UDC 10 mL PO ×2 (17:36→20:22)
[2021-02-11] MEDS: FUROsemide 10 mg/mL SDV 10mL 60 MG IVP (17:54)
[2021-02-11] MEDS: fluconazole premix 200 MG/100 ML PREMIX 100 MG IV (21:00)
[2021-02-12] VITALS (22 sets, daily range): BP systolic 82–118; BP diastolic 56–85; PULSE 96–108; RESP 14–28; TEMP 36.6–37; O2SAT 93–100
[2021-02-12] MEDS: CLONazepam 0.5 mg Tablet 0.25 MG PO ×2 (00:33→10:37)
[2021-02-12] MEDS: oxyCODONE 5 mg IR Tab/Cap PO ×4 (02:14→19:32)
[2021-02-12] MEDS: guaiFENesin-dextromethorphan UDC 10 mL PO ×5 (05:42→20:29)
[2021-02-12] MEDS: fluticasone nasal spray 16gm Btl 1 SPRAY INTRANASAL ×2 (05:46→17:14)
[2021-02-12] MEDS: potassium chloride ER 20 mEq Tablet PO ×2 (05:47→17:13)
[2021-02-12] MEDS: levothyroxine 100 mcg Tablet 200 MCG PO (05:47)
[2021-02-12] MEDS: pantoprazole DR 40 mg Tablet PO ×2 (05:47→17:13)
[2021-02-12] MEDS: folic acid 1 mg Tablet PO (05:47)
[2021-02-12] MEDS: FUROsemide 10 mg/mL SDV 10mL 60 MG IVP ×2 (05:47→17:14)
[2021-02-12] MEDS: thiamine 100 mg Tablet PO (05:47)
[2021-02-12] MEDS: budesonide 0.5 mg/2 mL Neb 0.25 MG INHALATION ×2 (07:54→20:07)
[2021-02-12] MEDS: ipratropium-albuterol 3 mL Neb INHALATION ×2 (07:54→20:07)
[2021-02-12] MEDS: magnesium oxide 400 mg tablet PO ×2 (08:15→17:13)
[2021-02-12] MEDS: levETIRAcetam 500 mg Tablet 1000 MG PO ×2 (08:15→17:13)
[2021-02-12] MEDS: lactobacillus 1 Tablet 1 TAB PO ×4 (08:15→20:29)
[2021-02-12] MEDS: multivitamin therapeutic Tablet 1 TAB PO (08:15)
[2021-02-12 09:08] LABS: Basophils # 0.1 10^3/uL (0.0-0.1); Eosinophils # 0.6 10^3/uL (0.0-0.8); Eosinophils % 11.3 %; Hemoglobin 8.6 g/dL (11.5-15.3); Lymphocytes # 1.5 10^3/uL (0.8-4.8); Lymphocytes % 27.3 %; Mean Corpuscular HGB Conc 29.7 g/dL (30.0-36.0); Mean Corpuscular Hemoglobin 25.7 pg (28.0-34.0); Mean Corpuscular Volume 86.6 fL (81-99); Mean Platelet Volume 10.7 fL (7.4-10.4); Monocytes # 0.5 10^3/uL (0.2-0.9); Monocytes % 9.6 %; Neutrophils # 2.77 10^3/uL (1.8-7.7); Neutrophils % 49.4 %; Nucleated Red Blood Cells % 0 %; Platelet Count 194 10^3/cmm (130-400); Red Blood Count 3.35 10^6/uL (4.1-5.3); Red Cell Distribution Width 19.8 % (12.1-15.1); White Blood Count 5.6 10^3/uL (4.0-10.0)
[2021-02-12 09:21] LABS: Chloride 95 mmol/L (98-107); Potassium 3.3 mmol/L (3.5-5.1); Sodium 141 mmol/L (136-145)
[2021-02-12 09:55] LABS: Anion Gap 13.3 (5-19); Blood Urea Nitrogen 5 mg/dL (6-20); Carbon Dioxide 36 mmol/L (22-29); Glomerular Filtration Rate 77.2 mL/min (90-130); Glucose 119 mg/dL (65-115); Osmolality Calculated 290 mOsm/kg (285-295)
[2021-02-12 10:00] LABS: Calcium 5.9 mg/dL (8.5-10.5)
--- NOTE | 2021-02-12 10:50 | PC.NURSE ---
This AM patient has been complaining of generalized pain 04/11. PRN medication was given with little relief. Shortly after patient was requesting something for anxiety. Patients words were slurred and pupils were unequal. PRN medication given later before transfer to [facility]. Patient refused nystatin powder this morning and requested it later in shift before transfer.
--- NOTE | 2021-02-12 11:10 | PC.NURSE ---
Patient was transferred to [facility] at around 1100 on 2L NC via wheelchair. Patient was able to transfer herself to wheelchair and back to bed. All belongings were with patient including shoes and night gown. Patients called and stated that patient was not answering her cell phone but when this nurse looked no phone was found in room.
--- NOTE | 2021-02-12 11:13 | PC.NURSE ---
PT ARRIVED TO THIS FLOOR AROUND 1100. PT WAS MOVED INTO BED SAFELY BY ICU NURSE AND STUDENT NURSE. PTS LUNGS SOUND CLEAR. HEART RATE NORMAL RHYTHM, FAST BUT NORMAL. BOWEL SOUNDS ARE ACTIVE. PT DOES HAVE WHAT LOOKS LIKE USED TO BE CELLULITIS TO BLE. BLE ARE NOT RED BUT THEY ARE DARKER IN COLOR. THERE IS NONPITTING EDEMA PRESENT. PT DOES HAVE SOME EXCORIATION UNDER NEATH BREASTS AND PANIS. PT IS CURRENTLY RESTING IN BED. WILL CONTINUE TO MONITOR.
--- NOTE | 2021-02-12 13:37 | PM.PN ---
Subjective Subjective: Interval history: Patient was seen and examined this morning.No acute event overnight. Overall doing better. working with physical therapy.Robust Urine output with I.V lasix. Medications: Reviewed: Yes Medication Review Details: I personally reviewed home medication list and medications/fluids received day of admission thus far. Vitals/I&O/Wt Last Vital Signs Temp 98.0 F 02/12/21 07:00 Pulse 104 H 02/12/21 10:00 Resp 27 H 02/12/21 10:00 BP 118/85 02/12/21 11:00 Pulse Ox 96 02/12/21 07:53 02/11/21 02/12/21 02/12/21 22:59 06:59 14:59 Intake Total 965 / 1305 2020 / 3325 700 / 700 Output Total 1600 / 2600 250 / 2850 1600 / 1600 Balance -635 / -1295 1770 / 475 -900 / -900 Weight last 48 hrs Weight 109.061 kg Weight 113.426 kg Physical Exam Const: COMMON NORMALS: patient oriented x3 HENMT: COMMON NORMALS: normocephalic and atraumatic HEAD & SCALP: normocephalic and atraumatic Chest: CHEST: Yes Symmetrical chest wall rise Resp: COMMON NORMALS: normal respiratory effort and clear to auscultation bilaterally EFFORT & INSPECTION: Yes symmetric chest movement AUSCULTATION: clear to auscultation bilaterally Cardio: COMMON NORMALS: regular rate, regular rhythm, S1 normal heart sound present, S2 normal heart sound present, No gallops present (Cardio), No murmurs present (Cardio), No rub (Cardio) and Peripheral pulses 2+ throughout RATE: regular rate RHYTHM: regular rhythm HEART SOUNDS: S1 normal heart sound present and S2 normal heart sound present PERIPHERAL PULSES: Peripheral pulses 2+ throughout GI: COMMON NORMALS: Normal to inspection, nondistended, normoactive bowel sounds present, Soft to palpation, non-tender, No hepatosplenomegaly present and no masses AUSCULTATION: Yes normoactive bowel sounds PALPATION: Yes Soft to palpation and Yes No hepatosplenomegaly present RECTAL EXAM: deferred : OTHER: Erythema and excoriation in the groin otherwise normal external genitalia Extremity: NARRATIVE EXTREMITY EXAM: B/L L/E erythema and redness present. Neuro: COMMON NORMALS: patient oriented x3 Skin: NARRATIVE SKIN EXAM: Excoriation under both breasts, under pannus, in the groin Urinary Catheter Management^: Cosme: Cath Placed During This Visit: yes Reason for Continuing Indwelling Catheter: Accurate Measurement of Urinary Output in Critically Ill Patients Urinary Catheter Date of Insertion: 02/08/21 Urinary Catheter Time of Insertion: 23:15 Data : 02/12/21 08:49 02/12/21 08:49 A&P Assessment and plan (1) Sepsis: Sepsis likely 2/2 l/e cellulitis. Lactic acid has appropriately trended down Procalcitonin : 7.25 X-ray chest: Vascular crowding in the lung bases. Blood culture:NTD Urine culture Sputum culture Vancomycin (02/08 to 02/11) Imipenem Fluconazole I.V was discontinued on 02/12 and switched to PO Fluconazole. Status: Acute Qualifiers: Sepsis acute organ dysfunction status: without acute organ dysfunction Sepsis type: sepsis due to unspecified organism Qualified Code(s): A41.9 - Sepsis, unspecified organism (2) Cellulitis: Plan as 1 Status: Acute Qualifiers: Site of cellulitis: other site Qualified Code(s): L03.818 - Cellulitis of other sites (3) Congestive heart failure: HFpEF currently compensated Lasix 60 mg I.V Q12 H Daily. Will switch to po lasix 80 mg BID from Am I/O Charting Daily weight K>4, Mg>2 Status: Chronic Qualifiers: Heart failure chronicity: acute on chronic Heart failure type: diastolic Qualified Code(s): I50.33 - Acute on chronic diastolic (congestive) heart failure (4) C. difficile diarrhea: Vancomycin 125 mg p.o. Q6H daily for 7 days ( 02/11) Status: Acute (5) Anemia: Severe normocytic anemia: Likely secondary to chronic alcohol abuse, nutritional deficiencies.She has recent EGD which was suggestive of gastritis, no other significant finding has been noted. H&H is dropped to: 6.5/ as compared to admission H&H of 7.2/. Will transfuse 2Us PRBC and Monitor CBC for now. Status: Chronic Qualifiers: Anemia type: iron deficiency Iron deficiency anemia type: unspecified iron deficiency Qualified Code(s): D50.9 - Iron deficiency anemia, unspecified (6) Seizure disorder: Continue KEPPRA 1000 MG PO BID Status: Chronic (7) Chronic alcohol abuse: Monitor For Withdrawal On CIWA Protocol Status: Chronic (8) Hyponatremia: Hypovolemic Hyponatremia.Resolved Monitor BMP. Status: Acute (9) Hepatitis C: Status: Chronic (10) Chronic kidney disease, stage III (moderate): [place] CKD Stage 3 :Resolved Baseline SCR :0.7-1 Admission SCR : 1.4 Current SCR : 0.8 Monitor BMP Avoid Nephrotoxic Status: Chronic Qualifiers: Chronic kidney disease stage 3 subtype: stage 3b (GFR 30-44) Qualified Code(s): N18.32 - Chronic kidney disease, stage 3b (11) Pulmonary embolism: She is not on Ac given her Prior h/o G.I Bleed.S/P IVC Filter Placement. Status: Chronic Qualifiers: Acute cor pulmonale presence: unspecified Chronicity: chronic Pulmonary embolism type: other Qualified Code(s): I27.82 - Chronic pulmonary embolism (12) COPD (chronic obstructive pulmonary disease): Currently not in exacerbation at her baseline oxygen. [employer] [place] Status: Chronic Qualifiers: COPD type: COPD with acute exacerbation Qualified Code(s): J44.1 - Chronic obstructive pulmonary disease with (acute) exacerbation (13) Hypothyroidism: Continue Levothyroxine 200 mcg po Daily and Liothyronine 25 mcg po daily. TSH : 34,Free T4: 070 TSH is high, with low free T4.Rest of thyroid panel pending. Will ensure compliance with PO medication replacement.Will avoid I,V Replacement for now. Repeat TSH in 4 -6 weeks. Status: Chronic Qualifiers: Hypothyroidism type: unspecified Qualified Code(s): E03.9 - Hypothyroidism, unspecified (14) Obesity (BMI 30.0-34.9): Status: Chronic (15) Hypokalemia: Status: Acute (16) Hypocalcemia: Corrected Serum Calcium : 7.4 Have received I.V Calcium Follow Serum Phosphorous,25OH Vitamin D, Intact PTH, Magnesium Status: Acute Additional A&P Information Code Status:Full code DVT Ppx: SCDs Disposition: SNF Attestations Medical Necessity Statement*: Patient needs to be in hospital for the management of sepsis. 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 difficile diarrhea A04.72 Anemia D50.9 Anemia type: iron deficiency Iron deficiency anemia type: unspecified iron deficiency Seizure disorder G40.909 Chronic alcohol abuse F10.10 Hyponatremia E87.1 Hepatitis C B19.20 Chronic kidney disease, stage III (moderate) N18.32 Chronic kidney disease stage 3 subtype: stage 3b (GFR 30-44) Pulmonary embolism I27.82 Acute cor pulmonale presence: unspecified Chronicity: chronic Pulmonary embolism type: other COPD (chronic obstructive pulmonary disease) J44.1 COPD type: COPD with acute exacerbation Hypothyroidism E03.9 Hypothyroidism type: unspecified Obesity (BMI 30.0-34.9) E66.9 Hypokalemia E87.6 Hypocalcemia E83.51
[2021-02-12] MEDS: ondansetron 2 mg/ML SDV 2 mL 4 MG IVP (14:01)
[2021-02-12] MEDS: LORazepam 2 mg Tablet PO ×2 (14:37→20:54)
[2021-02-12] MEDS: lidocaine 1% 5 ML in potassium chloride premix 100 ML 25 ML IV (15:16)
[2021-02-12] MEDS: nystatin powder 15 gm Btl 1 APPLIC TOPICAL (17:14)
[2021-02-13] VITALS (16 sets, daily range): BP systolic 91–124; BP diastolic 59–80; PULSE 91–116; RESP 15–20; TEMP 36.4–36.9; O2SAT 90–95
[2021-02-13] MEDS: guaiFENesin-dextromethorphan UDC 10 mL PO ×6 (00:39→19:53)
[2021-02-13] MEDS: cholecalciferol (vitamin D3) 5,000 unit Tablet 5000 UNIT PO (05:49)
[2021-02-13] MEDS: fluticasone nasal spray 16gm Btl 1 SPRAY INTRANASAL (05:49)
[2021-02-13] MEDS: FUROsemide 10 mg/mL SDV 10mL 60 MG IVP (05:49)
[2021-02-13] MEDS: folic acid 1 mg Tablet PO (05:49)
[2021-02-13] MEDS: pantoprazole DR 40 mg Tablet PO ×2 (05:50→16:46)
[2021-02-13] MEDS: levothyroxine 100 mcg Tablet 200 MCG PO (05:50)
[2021-02-13] MEDS: potassium chloride ER 20 mEq Tablet PO ×2 (05:50→16:45)
[2021-02-13] MEDS: thiamine 100 mg Tablet PO (05:50)
[2021-02-13 06:09] LABS: Basophils # 0.1 10^3/uL (0.0-0.1); Basophils % 1.6 %; Eosinophils # 0.5 10^3/uL (0.0-0.8); Eosinophils % 8.9 %; Hematocrit 27.3 % (37.0-47.0); Hemoglobin 8.3 g/dL (11.5-15.3); Lymphocytes # 1.6 10^3/uL (0.8-4.8); Lymphocytes % 27.5 %; Mean Corpuscular HGB Conc 30.4 g/dL (30.0-36.0); Mean Corpuscular Hemoglobin 26.2 pg (28.0-34.0); Mean Corpuscular Volume 86.1 fL (81-99); Mean Platelet Volume 10.6 fL (7.4-10.4); Monocytes # 0.6 10^3/uL (0.2-0.9); Monocytes % 11.2 %; Neutrophils # 2.84 10^3/uL (1.8-7.7); Neutrophils % 50.4 %; Nucleated Red Blood Cells % 0 %; Platelet Count 204 10^3/cmm (130-400); Red Blood Count 3.17 10^6/uL (4.1-5.3); Red Cell Distribution Width 19.6 % (12.1-15.1); White Blood Count 5.6 10^3/uL (4.0-10.0)
[2021-02-13 06:30] LABS: Alanine Aminotransferase < 5 U/L (0-33); Alkaline Phosphatase 202 IU/L (35-105); Anion Gap 9.4 (5-19); Aspartate Amino Transferase 8 U/L (0-32); Blood Urea Nitrogen 5 mg/dL (6-20); Carbon Dioxide 38 mmol/L (22-29); Chloride 96 mmol/L (98-107); Globulin 3.2 g/dL (1.3-4.6); Glomerular Filtration Rate 90.1 mL/min (90-130); Glucose 79 mg/dL (65-115); Osmolality Calculated 286 mOsm/kg (285-295); Phosphorus 3.8 mg/dL (2.5-4.5); Potassium 3.4 mmol/L (3.5-5.1); Sodium 140 mmol/L (136-145); Total Bilirubin 0.5 mg/dL (0.15-1.2); Total Protein 5.2 g/dL (6.6-8.7)
[2021-02-13 06:33] LABS: Calcium 5.6 mg/dL (8.5-10.5); Magnesium 0.9 mg/dL (1.7-2.3)
[2021-02-13 06:36] LABS: Procalcitonin 0.27 ng/mL (0-0.5)
[2021-02-13 06:54] LABS: Calcium 5.6 mg/dL (8.5-10.5)
[2021-02-13 06:58] LABS: Parathyroid Hormone 75.5 pg/mL (15-65)
[2021-02-13 07:10] LABS: 25 Hydroxy Vitamin D 17 ng/mL (30-100)
[2021-02-13] MEDS: magnesium sulfate premix 4 GM/100 ML PREMIX IV ×2 (07:40→15:36)
[2021-02-13] MEDS: magnesium oxide 400 mg tablet PO ×2 (07:41→16:45)
[2021-02-13] MEDS: levETIRAcetam 500 mg Tablet 1000 MG PO ×2 (07:41→16:46)
[2021-02-13] MEDS: lactobacillus 1 Tablet 1 TAB PO ×4 (07:41→20:51)
[2021-02-13] MEDS: fluconazole 100 mg Tablet 200 MG PO (07:42)
[2021-02-13] MEDS: sennosides-docusate Tablet 1 TAB PO (07:42)
[2021-02-13] MEDS: multivitamin therapeutic Tablet 1 TAB PO (07:42)
[2021-02-13] MEDS: magnesium lactate 84 mg Tablet PO ×3 (07:42→20:51)
[2021-02-13] MEDS: nystatin powder 15 gm Btl 1 APPLIC TOPICAL (07:45)
--- NOTE | 2021-02-13 10:05 | PC.NURSE ---
Patient requesting anxiety medication and pain medication. notified Dr Tillman. orders placed.
[2021-02-13] MEDS: oxyCODONE 5 mg IR Tab/Cap PO ×3 (10:43→22:10)
[2021-02-13] MEDS: CLONazepam 0.5 mg Tablet 0.25 MG PO ×2 (10:44→22:10)
--- NOTE | 2021-02-13 10:57 | PC.SOCIAL ---
IMM Update Pg. 2 of IMM Updated and reviewed with patient, who verbalized understanding. Copy provided.
[2021-02-13] MEDS: ipratropium-albuterol 3 mL Neb INHALATION ×3 (11:31→20:06)
--- NOTE | 2021-02-13 14:52 | PC.NURSE ---
pressure area noted to right heel. notified
[2021-02-13 15:35] LABS: Free T4 Free Thyroxine 1.02 ng/dL (0.82-1.77); T3 Free 2.6 PG/ML (2.0-4.4); Thyroid Stimulating Hormone 18.17 uIU/mL (0.27-4.20)
--- NOTE | 2021-02-13 16:13 | PM.PN ---
Subjective Subjective: Interval history: Hospital course, labs appreciated. On examination patient comfortable in bed. Denies any nausea, wanting, headache. States she is feeling better. Still working minimally with physical therapy. Patient has been denied at [facility]. Patient is adamant that she would like to go home. No further diarrhea. Denies any nausea, vomiting. Asking for pain medications. Has remained afebrile hemodynamically stable. Currently on 2 L saturating 94%. Medications: Reviewed: Yes Medication Review Details: I personally reviewed home medication list and medications/fluids received day of admission thus far. Vitals/I&O/Wt Last Vital Signs Temp 97.8 F 02/13/21 12:00 Pulse 91 02/13/21 16:10 Resp 16 02/13/21 16:10 BP 99/65 02/13/21 12:00 Pulse Ox 94 02/13/21 16:10 02/13/21 02/13/21 02/13/21 06:59 14:59 22:59 Intake Total 180 / 1605 715 / 715 100 / 815 Output Total 2800 / 4400 2800 / 2800 Balance -2620 / -2795 -2085 / -2085 100 / -1985 Weight last 48 hrs Weight 109.061 kg Physical Exam Urinary Catheter Management^: Cosme: Cath Placed During This Visit: yes, but has since been removed by the nurse Reason for Continuing Indwelling Catheter: Decision to DC Catheter Urinary Catheter Date of Insertion: 02/08/21 Urinary Catheter Time of Insertion: 23:15 Date Urinary Catheter Removed: 02/13/21 Time Urinary Catheter Discontinued: 15:02 Data : 02/13/21 05:57 02/13/21 05:57 Micro: Microbiology 02/11/21 22:00 Urine Culture - Preliminary Urine Catheterized A&P Assessment and plan (1) Hypocalcemia: Status: Acute (2) Sepsis: Status: Acute Qualifiers: Sepsis acute organ dysfunction status: without acute organ dysfunction Sepsis type: sepsis due to unspecified organism Qualified Code(s): A41.9 - Sepsis, unspecified organism (3) Cellulitis: Plan as 1 Status: Acute Qualifiers: Site of cellulitis: other site Qualified Code(s): L03.818 - Cellulitis of other sites (4) C. difficile diarrhea: Status: Acute (5) Congestive heart failure: Status: Chronic Qualifiers: Heart failure chronicity: acute on chronic Heart failure type: diastolic Qualified Code(s): I50.33 - Acute on chronic diastolic (congestive) heart failure (6) Anemia: Post 2 unit PRBC transfusion. Hemoglobin has remained stable. Severe normocytic anemia: Likely secondary to chronic alcohol abuse, nutritional deficiencies. She has recent EGD which was suggestive of gastritis, no other significant finding has been noted. Oral iron supplementation. Status: Chronic Qualifiers: Anemia type: iron deficiency Iron deficiency anemia type: unspecified iron deficiency Qualified Code(s): D50.9 - Iron deficiency anemia, unspecified (7) Hypothyroidism: Status: Chronic Qualifiers: Hypothyroidism type: unspecified Qualified Code(s): E03.9 - Hypothyroidism, unspecified (8) Chronic kidney disease, stage III (moderate): Status: Chronic Qualifiers: Chronic kidney disease stage 3 subtype: stage 3b (GFR 30-44) Qualified Code(s): N18.32 - Chronic kidney disease, stage 3b (9) Pulmonary embolism: She is not on Ac given her Prior h/o G.I Bleed.S/P IVC Filter Placement. Status: Inactive Qualifiers: Acute cor pulmonale presence: unspecified Chronicity: chronic Pulmonary embolism type: other Qualified Code(s): I27.82 - Chronic pulmonary embolism (10) COPD (chronic obstructive pulmonary disease): Currently not in exacerbation at her baseline oxygen. [place] Status: Chronic Qualifiers: COPD type: COPD with acute exacerbation Qualified Code(s): J44.1 - Chronic obstructive pulmonary disease with (acute) exacerbation (11) Obesity (BMI 30.0-34.9): Status: Chronic (12) Hypokalemia: Status: Acute (13) Seizure disorder: Continue KEPPRA 1000 MG PO BID Status: Chronic (14) Chronic alcohol abuse: Monitor For Withdrawal On CIWA Protocol Status: Chronic (15) Hyponatremia: Resolved. Hypovolemic Hyponatremia Monitor BMP. Status: Acute (16) Hepatitis C: Status: Chronic (17) Hyperparathyroidism , secondary, non-renal: Status: Acute (18) Vitamin D deficiency disease: Status: Acute Additional A&P Information Sepsis secondary to cellulitis and C. difficile: Leukocytosis has resolved, no fevers. On review of notes it seems patient was recently treated for UTI as well. UTI was secondary to E. coli. Patient history completed treatment for UTI. Currently on imipenem for cellulitis. Day 5 of treatment today. We will stop imipenem after finishing the course of antibiotics today. Blood cultures have remained negative. Continue with vancomycin 125 mg 4 times daily to finish a course of 14 days or for 7 days post completion of antibiotic course. Congestive heart failure: Diastolic: Echocardiogram done in May 22 shows an EF of 57%, trace TR. Patient is net negative balance. Change IV Lasix to Lasix 80 mg twice daily. Daily weights. Strict input output charting. DC Cosme catheter. CKD: Acute kidney injury on CKD has resolved. Creatinine back to baseline. Medical reconciliation done for nephrotoxic drugs. Hypothyroidism: Free T3 during this admission elevated. Free T4 on the lower side. Continue with home dose of levothyroxine and liothyronine. Recheck TSH and free T3. Hypomagnesia/hypocalcemia: PTH level elevated, vitamin D levels low. Hypocalcemia could be secondary to low vitamin D levels. Start patient on Calcitrol 0.5 mg daily along with vitamin D supplementation. Replace 4 mg IV magnesium and 2 mg IV calcium. Check thyroid ultrasound. Patient would benefit for outpatient endocrine follow-up. Restart other oral medications including Klonopin twice daily as needed, Keppra, oxycodone IR every 4 hours as needed. Code Status:Full code DVT Ppx: SCDs Discharge planning: Most likely given severe generalized deconditioning and physical therapy evaluation patient would benefit for placement to SNF. Patient has been declined at [facility]. Patient declines and denies going to any other SNF. Discussed in detail regarding need for patient to be at SNF for aggressive physical therapy. Patient continues to deny. Will try and convince patient again tomorrow. Otherwise we will have to try for home health. Attestations Medical Necessity Statement*: Patient requires further hospitalization for management of sepsis secondary to cellulitis and C. difficile colitis, severe hypomagnesemia, severe hypocalcemia while safe discharge planning is sought. Time Spent in Patient Care: Greater than 35 minutes (>than 50% of time spent in counselling and/or direct pt care on unit). 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 difficile diarrhea A04.72 Congestive heart failure I50.33 Heart failure chronicity: acute on chronic Heart failure type: diastolic Anemia D50.9 Anemia type: iron deficiency Iron deficiency anemia type: unspecified iron deficiency Hypothyroidism E03.9 Hypothyroidism type: unspecified Chronic kidney disease, stage III (moderate) N18.32 Chronic kidney disease stage 3 subtype: stage 3b (GFR 30-44) Pulmonary embolism I27.82 Acute cor pulmonale presence: unspecified Chronicity: chronic Pulmonary embolism type: other COPD (chronic obstructive pulmonary disease) J44.1 COPD type: COPD with acute exacerbation Obesity (BMI 30.0-34.9) E66.9 Hypokalemia E87.6 Seizure disorder G40.909 Chronic alcohol abuse F10.10 Hyponatremia E87.1 Hepatitis C B19.20 Hyperparathyroidism , secondary, non-renal E21.1 Vitamin D deficiency disease E55.9
[2021-02-13] MEDS: FUROsemide 40 mg Tablet 80 MG PO (16:45)
[2021-02-13] MEDS: ferrous gluconate 324 mg Tablet PO (16:45)
[2021-02-13] MEDS: calcitriol 0.25 mcg Capsule 0.5 MCG PO (16:45)
[2021-02-13] MEDS: budesonide 0.5 mg/2 mL Neb 0.25 MG INHALATION (20:06)
[2021-02-14] VITALS (9 sets, daily range): BP systolic 91–118; BP diastolic 54–74; PULSE 100–107; RESP 16–18; TEMP 36.6–37.1; O2SAT 90–96
[2021-02-14] MEDS: guaiFENesin-dextromethorphan UDC 10 mL PO ×3 (00:14→09:54)
[2021-02-14] MEDS: levothyroxine 75 mcg Tablet PO (05:24)
[2021-02-14] MEDS: levothyroxine 200 mcg Tablet PO (05:24)
[2021-02-14] MEDS: thiamine 100 mg Tablet PO (05:25)
[2021-02-14] MEDS: folic acid 1 mg Tablet PO (05:25)
[2021-02-14] MEDS: pantoprazole DR 40 mg Tablet PO (05:25)
[2021-02-14] MEDS: potassium chloride ER 20 mEq Tablet PO (05:25)
[2021-02-14] MEDS: cholecalciferol (vitamin D3) 5,000 unit Tablet 5000 UNIT PO (05:25)
[2021-02-14] MEDS: fluticasone nasal spray 16gm Btl 1 SPRAY INTRANASAL (05:25)
[2021-02-14] MEDS: oxyCODONE 5 mg IR Tab/Cap PO ×2 (05:33→09:54)
[2021-02-14 06:03] LABS: Basophils # 0.1 10^3/uL (0.0-0.1); Basophils % 1.6 %; Eosinophils # 0.3 10^3/uL (0.0-0.8); Eosinophils % 6.3 %; Hematocrit 27.9 % (37.0-47.0); Hemoglobin 8.3 g/dL (11.5-15.3); Lymphocytes # 1.2 10^3/uL (0.8-4.8); Lymphocytes % 27.5 %; Mean Corpuscular HGB Conc 29.7 g/dL (30.0-36.0); Mean Corpuscular Hemoglobin 25.9 pg (28.0-34.0); Mean Corpuscular Volume 87.2 fL (81-99); Mean Platelet Volume 11.1 fL (7.4-10.4); Monocytes # 0.6 10^3/uL (0.2-0.9); Monocytes % 12.7 %; Neutrophils % 51.2 %; Nucleated Red Blood Cells % 0 %; Platelet Count 234 10^3/cmm (130-400); Red Cell Distribution Width 19.9 % (12.1-15.1); White Blood Count 4.5 10^3/uL (4.0-10.0)
[2021-02-14 06:14] LABS: Alanine Aminotransferase < 5 U/L (0-33); Albumin Level 1.9 g/dL (3.5-5.2); Alkaline Phosphatase 182 IU/L (35-105); Anion Gap 8.2 (5-19); Aspartate Amino Transferase 9 U/L (0-32); Blood Urea Nitrogen 6 mg/dL (6-20); Carbon Dioxide 39 mmol/L (22-29); Chloride 97 mmol/L (98-107); Globulin 3.3 g/dL (1.3-4.6); Glomerular Filtration Rate 107.6 mL/min (90-130); Glucose 79 mg/dL (65-115); Osmolality Calculated 289 mOsm/kg (285-295); Potassium 3.2 mmol/L (3.5-5.1); Sodium 141 mmol/L (136-145); Total Bilirubin 0.5 mg/dL (0.15-1.2); Total Protein 5.2 g/dL (6.6-8.7)
[2021-02-14] MEDS: magnesium lactate 84 mg Tablet PO (09:52)
[2021-02-14] MEDS: sennosides-docusate Tablet 1 TAB PO (09:52)
[2021-02-14] MEDS: calcitriol 0.25 mcg Capsule 0.5 MCG PO (09:52)
[2021-02-14] MEDS: lactobacillus 1 Tablet 1 TAB PO (09:52)
[2021-02-14] MEDS: ferrous gluconate 324 mg Tablet PO (09:53)
[2021-02-14] MEDS: multivitamin therapeutic Tablet 1 TAB PO (09:53)
[2021-02-14] MEDS: magnesium oxide 400 mg tablet PO (09:53)
[2021-02-14] MEDS: fluconazole 100 mg Tablet 200 MG PO (09:53)
[2021-02-14] MEDS: levETIRAcetam 500 mg Tablet 1000 MG PO (09:53)
[2021-02-14] MEDS: ondansetron 2 mg/ML SDV 2 mL 4 MG IVP (09:54)
[2021-02-14] MEDS: FUROsemide 40 mg Tablet 80 MG PO (09:59)
[2021-02-14] MEDS: CLONazepam 0.5 mg Tablet 0.25 MG PO (09:59)
--- NOTE | 2021-02-14 10:51 | P.DS_ITS ---
Discharge Providers Date of Admission: 02/08/21 19:37 Date of Discharge: February 14, 2021 Attending Provider at Admission: Bettie Ann MD Attending Provider at Discharge: Edgardo Alexander MD Primary Care Provider: Octaviano Sue MD Diagnoses at Discharge Discharge Diagnosis (1) Hypocalcemia: Status: Acute (2) Sepsis: Status: Acute Qualifiers: Sepsis acute organ dysfunction status: without acute organ dysfunction Sepsis type: sepsis due to unspecified organism Qualified Code(s): A41.9 - Sepsis, unspecified organism (3) Cellulitis: Status: Acute Qualifiers: Site of cellulitis: other site Qualified Code(s): L03.818 - Cellulitis of other sites (4) C. difficile diarrhea: Status: Acute (5) Congestive heart failure: Status: Chronic Qualifiers: Heart failure chronicity: acute on chronic Heart failure type: diastolic Qualified Code(s): I50.33 - Acute on chronic diastolic (congestive) heart failure (6) Anemia: Status: Chronic Permanent problem details: requires intermittent transfusion Qualifiers: Anemia type: iron deficiency Iron deficiency anemia type: unspecified iron deficiency Qualified Code(s): D50.9 - Iron deficiency anemia, unspecified (7) Hypothyroidism: Status: Chronic Qualifiers: Hypothyroidism type: unspecified Qualified Code(s): E03.9 - Hypothyroidism, unspecified (8) Chronic kidney disease, stage III (moderate): Status: Chronic Qualifiers: Chronic kidney disease stage 3 subtype: stage 3b (GFR 30-44) Qualified Code(s): N18.32 - Chronic kidney disease, stage 3b (9) Pulmonary embolism: Status: Inactive Permanent problem details: has IVC filter, no anticoagulation due to anemia and recurrent bleeding Qualifiers: Acute cor pulmonale presence: unspecified Chronicity: chronic Pulmonary embolism type: other Qualified Code(s): I27.82 - Chronic pulmonary embolism (10) COPD (chronic obstructive pulmonary disease): Status: Chronic Permanent problem details: oxygen dependent Qualifiers: COPD type: COPD with acute exacerbation Qualified Code(s): J44.1 - Chronic obstructive pulmonary disease with (acute) exacerbation (11) Obesity (BMI 30.0-34.9): Status: Chronic (12) Hypokalemia: Status: Acute (13) Seizure disorder: Status: Chronic Permanent problem details: margie (14) Chronic alcohol abuse: Status: Chronic (15) Hyponatremia: Status: Acute (16) Hepatitis C: Status: Chronic (17) Hyperparathyroidism , secondary, non-renal: Status: Acute (18) Vitamin D deficiency disease: Status: Acute Reason for Visit Reason for Visit: LOWER EXT SWELLING Hospital Course Hospital Course 45-year-old female with a past medical history of acute on chronic anemia, history of PE status post IVC filter placement, COPD, chronic pain, history recurrent UTIs, history of intractable nausea vomiting abdominal pain who presents to [facility] due to abdominal pain, nausea, vomiting. She was recently in the hospital and was discharged on January 30 when she was d ischarged for E. coli UTI and she was discharged on Macrobid. She presented again to the hospital on February 08 with complaints of chills, subjective fever at home, hurting all over increasing swelling.On arrival to the emergency room she was tachycardic and had normal blood pressures. Work-up revealed a white count of 24,000. Lactic acid was 7. She had anion gap of 20. While in the emergency room, her blood pressures dropped to 90 systolic. She became more tachycardic. No fevers documented. She received normal saline bolus and repeat lactic acid is pending. She complains of hurting all over, no specific location worse than others beyond her legs. She has weeping edema from both lower extremities left greater than right. She also has weeping underneath her breast and in her groin, underneath her pannus. Diuretic dosing was changed from twice daily to daily at last hospital stay and she reports that she has gained weight and had increased swelling since then. Has had to increase her oxygen from usual 2 to 4 L to 5 L. Does not really describe orthopnea or PND. Has not been able to exert herself very much. She is wanting something for her nerves and for pain. Denies any headache, chest pain, productive cough or increased difficulty breathing at rest. IV was able to be placed in the left upper extremity under ultrasound guidance in the emergency room. X-ray patient with a hospital started on IV diuresis for generalized anasarca. She was found to be in sepsis which was thought to be because of cellulitis and stool studies were positive for C. difficile. She was started on IV imipenem and oral vancomycin. She responded well to the treatment and her cellulitis improved with skin changes back to baseline of chronic lymphedema. Patient did not have any further diarrhea while in the hospitalization. During hospitalization she was found to have fairly abnormal electrolytes which were initially thought to be because of dehydration but they resolved with minimal IV fluids and diuretics as patient was found to be intravascularly depleted. Her diuretic regimen was adjusted. She is also found to have severely deranged magnesium, calcium levels. Further work-up was done it was found that patient has elevated PTH, low vitamin D levels. It is possible that patient's low calcium level is because of hypomagnesia and deficiency of vitamin D. She was started calcitriol. Physical therapy was consulted for evaluation and they advised patient for extensive physical therapy for which SNF placement was sought but patient declined placement to any SNF rather than [facility]. Unfortunately [facility] declined the patient. Patient was counseled again for further placement to a different SNF but she continued to decline. Eventually home health was arranged for the patient. Patient has been discharged in hemodynamically stable condition with advised to follow-up with his primary care provider within next 1 week for repeat BMP, magnesium and calcium levels. She is also advised in detail to follow-up with endocrine office for further work-up for calcium metabolism and severe parathyroidism. Physical Exam Const: COMMON NORMALS: patient oriented x3 HENMT: COMMON NORMALS: normocephalic and atraumatic HEAD & SCALP: normocephalic and atraumatic Chest: CHEST: Yes Symmetrical chest wall rise Resp: COMMON NORMALS: normal respiratory effort and clear to auscultation bilaterally EFFORT & INSPECTION: Yes symmetric chest movement AUSCULTATION: clear to auscultation bilaterally OTHER: Minimal Basal Crackles Present in both Lungs Dailey. Cardio: COMMON NORMALS: regular rate, regular rhythm, S1 normal heart sound present, S2 normal heart sound present, No gallops present (Cardio), No murmurs present (Cardio), No rub (Cardio) and Peripheral pulses 2+ throughout RATE: regular rate RHYTHM: regular rhythm HEART SOUNDS: S1 normal heart sound present and S2 normal heart sound present PERIPHERAL PULSES: Peripheral pulses 2+ throughout GI: COMMON NORMALS: Normal to inspection, nondistended, normoactive bowel sounds present, Soft to palpation, non-tender, No hepatosplenomegaly present and no masses AUSCULTATION: Yes normoactive bowel sounds PALPATION: Yes Soft to palpation and Yes No hepatosplenomegaly present RECTAL EXAM: deferred : OTHER: Erythema and excoriation in the groin otherwise normal external genitalia Extremity: NARRATIVE EXTREMITY EXAM: B/L L/E erythema and redness present. Neuro: COMMON NORMALS: patient oriented x3 Skin: NARRATIVE SKIN EXAM: Excoriation under both breasts, under pannus, in the groin Urinary Catheter Management^: Cosme: Cath Placed During This Visit: yes, but has since been removed by the nurse Reason for Continuing Indwelling Catheter: Decision to DC Catheter Urinary Catheter Date of Insertion: 02/08/21 Urinary Catheter Time of Insertion: 23:15 Date Urinary Catheter Removed: 02/13/21 Time Urinary Catheter Discontinued: 15:02 Discharge Data Data Completed and Pending: Completed Studies During Hospitalization Category Date Time Status XR chest 1V nichole ble [id number] Stat Exams 02/08/21 16:48 Completed Pending at discharge Category Date Time Status Complete Blood Co unt w/Auto AM LABS Lab 02/15/21 04:00 Ordered Comprehensive Met abolic Panel AM LA BS Lab 02/15/21 04:00 Ordered Thyroid Peroxidas e Antobodies Routi ne Lab 02/13/21 05:57 [place] [id number] Routine Ultrasound 02/14/21 10:20 Ordered Labs from last 24 hours 02/14/21 02/14/21 02/13/21 05:26 05:26 05:57 WBC 4.5 RBC 3.20 L Hgb 8.3 L Hct 27.9 L MCV 87.2 MCH 25.9 L MCHC 29.7 L RDW 19.9 H Plt Count 234 MPV 11.1 H Neut % (Auto) 51.2 Lymph % (Auto) 27.5 [place] % (Auto) 12.7 Eos % (Auto) 6.3 Baso % (Auto) 1.6 Neut # (Auto) 2.30 Lymph # (Auto) 1.2 [place] # (Auto) 0.6 Eos # (Auto) 0.3 Baso # (Auto) 0.1 Nucleated RBC % (a uto) 0 Nucleated RBCs # 0.0 Sodium 141 Potassium 3.2 L Chloride 97 L Carbon Dioxide 39 H Anion Gap 8.2 BUN 6 Creatinine 0.6 GFR Calculation 107.6 Glucose 79 Calculated Osmolal ity 289 Calcium 6.0 L Total Bilirubin 0.5 AST 9 ALT < 5 Alkaline Phosphata se 182 H Total Protein 5.2 L Albumin 1.9 L Globulin 3.3 TSH Free T4 Free T3 Thyroid Peroxidase Ab Pending 02/13/21 05:57 WBC RBC Hgb Hct MCV MCH MCHC RDW Plt Count MPV Neut % (Auto) Lymph % (Auto) [place] % (Auto) Eos % (Auto) Baso % (Auto) Neut # (Auto) Lymph # (Auto) [place] # (Auto) Eos # (Auto) Baso # (Auto) Nucleated RBC % (a uto) Nucleated RBCs # Sodium Potassium Chloride Carbon Dioxide Anion Gap BUN Creatinine GFR Calculation Glucose Calculated Osmolal ity Calcium Total Bilirubin AST ALT Alkaline Phosphata se Total Protein Albumin Globulin TSH 18.17 H Free T4 1.02 Free T3 2.6 Thyroid Peroxidase Ab Addt'l Data from Hospital Stay: Abnormal lab results 02/13/21 02/14/21 02/14/21 Range/Units 05:57 05:26 05:26 RBC 3.20 L (4.1-5.3) 10^6/u L Hgb 8.3 L (11.5-15.3) g/dL Hct 27.9 L (37.0-47.0) % MCH 25.9 L (28.0-34.0) pg MCHC 29.7 L (30.0-36.0) g/dL RDW 19.9 H (12.1-15.1) % MPV 11.1 H (7.4-10.4) fL Potassium 3.2 L (3.5-5.1) mmol/L Chloride 97 L (98-107) mmol/L Carbon Dioxide 39 H (22-29) mmol/L Calcium 6.0 L (8.5-10.5) mg/dL Alkaline Phosphata se 182 H (35-105) IU/L Total Protein 5.2 L (6.6-8.7) g/dL Albumin 1.9 L (3.5-5.2) g/dL TSH 18.17 H (0.27-4.20) uIU/ mL Laboratory Results Microbiology 02/11/21 22:00 Urine Catheterized Urine Culture - Final 02/08/21 18:16 Blood Blood Culture - Final NO GROWTH AFTER 5 DAYS 02/08/21 18:13 Blood Blood Culture - Final NO GROWTH AFTER 5 DAYS 02/08/21 18:00 Stool C.difficile Toxin B Gene (PCR) - Final?positive Impressions Chest X-Ray 02/08/21 16:48 IMPRESSION: 1. Diminished inspiratory effort. 2. Vascular crowding in the lung bases. 3. Subsegmental atelectasis left lung base. Vitals: Last Vital Signs Temp 98.1 F 02/14/21 07:47 Pulse 103 H 02/14/21 07:47 Resp 18 02/14/21 09:54 BP 103/58 02/14/21 07:47 Pulse Ox 94 02/14/21 09:54 Discharge Plan Discharge Patient Disposition: Home Health Service Condition: Stable Prescriptions: New furosemide 40 mg Tablet 80 mg PO BID@08,16 Qty: 60 RF: 0 calcitriol 0.25 mcg Capsule 0.5 mcg PO DAILY Qty: 30 RF: 0 ferrous gluconate 324 mg (37.5 mg iron) Tablet 324 mg PO BIDWM Qty: 60 RF: 0 fluconazole 100 mg Tablet 200 mg PO DAILY Qty: 5 RF: 0 Vancocin 125 mg capsule 125 mg PO Q6H 7 Days Qty: 28 RF: 0 Continued epinephrine [EpiPen 2-Tim] 0.3 mg/0.3 mL auto-injector 0.3 mg IM PRN PRN (Reason: Allergic Reaction) RF: 0 albuterol sulfate [Ventolin HFA] 90 mcg/actuation HFA aerosol inhaler See Rx Instructions .ROUTE .COMPLEX Qty: 18 RF: 3 potassium chloride [Klor-Con M20] 20 mEq tablet,ER particles/crystals 20 meq PO BID@0600,1800 RF: 0 budesonide 0.25 mg/2 mL suspension for nebulization 0.25 mg INHALATION BID@0600,1800 RF: 0 folic acid 1 mg tablet 1 mg PO DAILY@0600 RF: 0 fluticasone propionate [Flonase Allergy Relief] 50 mcg/actuation spray,suspension 1 spray INTRANASAL BID@0600,1800 RF: 0 cholecalciferol (vitamin D3) 125 mcg (5,000 unit) tablet 5,000 unit PO DAILY@0600 RF: 0 thiamine mononitrate (vit B1) [Vitamin B-1 (mononitrate)] 100 mg tablet 100 mg PO DAILY@0600 RF: 0 levothyroxine 200 mcg capsule 200 mcg PO DAILY@0600 RF: 0 tizanidine [Zanaflex] 2 mg capsule 2 mg PO Q12H PRN (Reason: muscle spasticity) Qty: 10 RF: 0 Narcan 4 mg/actuation spray,non-aerosol 4 mg INTRANASAL PRN PRN (Reason: OVERDOSE) RF: 0 ipratropium-albuterol 0.5 mg-3 mg(2.5 mg base)/3 mL solution for nebulization 3 ml INHALATION Q6H Qty: 15 RF: 0 albuterol sulfate 0.63 mg/3 mL solution for nebulization 0.63 mg INHALATION Q4H PRN (Reason: Shortness Of Breath) RF: 0 Incruse Ellipta 62.5 mcg/actuation blister with device 1 inh INHALATION DAILY@0600 RF: 0 clonazepam 0.5 mg tablet 0.25 mg PO BID PRN (Reason: anxiety) Qty: 14 RF: 0 polyethylene glycol 3350 17 gram Powder In Packet 17 g PO DAILY Qty: 30 RF: 0 magnesium oxide 400 mg (241.3 mg magnesium) Tablet 400 mg PO BID Qty: 60 RF: 0 multivitamin with folic acid [Thera] 400 mcg Tablet 1 tab PO DAILY Qty: 30 RF: 0 sennosides-docusate sodium 8.6-50 mg Tablet 1 tab-cap PO BID Qty: 60 RF: 0 pantoprazole 40 mg tablet,delayed release (DR/EC) 40 mg PO BID@0600,1800 Qty: 60 RF: 0 liothyronine 25 mcg tablet 25 mcg PO DAILY RF: 0 levetiracetam [Keppra] 500 mg Tablet 1,000 mg PO BID RF: 0 levothyroxine 50 mcg Tablet 75 mcg PO DAILY@0600 30 Days Qty: 30 RF: 0 Discontinued Spiriva Respimat 2.5 mcg/actuation mist 2 puff INHALATION DAILY@0600 RF: 0 furosemide 40 mg tablet 40 mg PO DAILY 30 Days Qty: 30 RF: 0 Discharge Orders: Discharge Order (Routine); Ordered 02/14/21 Ordered By: Edgardo Alexander Referrals: Octaviano Snyder MD [Physician] - (Hyperparathyroidism, decreased vitamin D levels, severely deranged magnesium and calcium levels) Jessica Jaffe MD [Physician] - (Repeat BMP, calcium, phosphorus levels.) Discharge Diet: Regular Discharge Activity: Resume usual activity and Increase activity as tolerated Patient Instructions: Opioid Safety Activity Restrictions/Additional Instructions: Please follow-up with your primary care provider within next 1 week for repeat BMP, calcium, magnesium levels. You will be on oral vancomycin for 7 more days for C. difficile. Please follow-up with endocrinology office for further work-up of severe parathyroidism, vitamin D deficiency. Discharge Attestations Time Spent in Discharge Care*: greater than 30 min Specific Discharge Activities: educating patient, discussing with pcp/other providers, discussing with human services case manager/social workers/dc planners, documenting/other paperwork and evaluating patient/reviewing data Status at Discharge: Cognitive status at discharge: cognitively intact , Behavioral status at discharge: cooperative , Functional status at discharge: uses cane/walker Overall status at discharge: patient is progressing back to baseline Quality Metrics Clinical Quality Measures During this hospital stay, did patient experience: None Coding Level of Care Code Acute Chg FW DC note Diagnoses Hypocalcemia E83.51 Sepsis A41.9 Sepsis acute organ dysfunction status: without acute organ dysfunction Sepsis type: sepsis due to unspecified organism Cellulitis L03.818 Site of cellulitis: other site C. difficile diarrhea A04.72 Congestive heart failure I50.33 Heart failure chronicity: acute on chronic Heart failure type: diastolic Anemia D50.9 Anemia type: iron deficiency Iron deficiency anemia type: unspecified iron deficiency Hypothyroidism E03.9 Hypothyroidism type: unspecified Chronic kidney disease, stage III (moderate) N18.32 Chronic kidney disease stage 3 subtype: stage 3b (GFR 30-44) Pulmonary embolism I27.82 Acute cor pulmonale presence: unspecified Chronicity: chronic Pulmonary embolism type: other COPD (chronic obstructive pulmonary disease) J44.1 COPD type: COPD with acute exacerbation Obesity (BMI 30.0-34.9) E66.9 Hypokalemia E87.6 Seizure disorder G40.909 Chronic alcohol abuse F10.10 Hyponatremia E87.1 Hepatitis C B19.20 Hyperparathyroidism , secondary, non-renal E21.1 Vitamin D deficiency disease E55.9
--- NOTE | 2021-02-14 11:09 | PC.NURSE ---
lotion rubbed on patient's legs as requested
--- NOTE | 2021-02-14 11:10 | PC.NURSE ---
patient refuses US. Dr Bee notified.
--- NOTE | 2021-02-14 12:14 | PC.NURSE ---
Addendum entered by Betina Michelle RN 02/14/21 14:46: removed PICC line Original Note: Rcvd PICC line per Dr Bee. patient taken to private vehicle via wheelchair by staff.
[2021-02-14 14:48] LABS: Thyroid Peroxidase Antobodies 13 IU/mL (<9)
== END 2021-02-14 12:16 | disposition home health service (06) | DRG 871 ==
LOC: ER 19:26 → ICU 19:48 → MEDSURG 02-12 11:02
PROVIDERS: Internal Medicine; Admitting Provider Hospitalist; Emergency Provider Emergency Medicine; PCP Internal Medicine; Visit Provider Student in an Organized Health Care Education/Training Program
DX: A41.9 Sepsis, unspecified organism (principal); I50.33 Acute on chronic diastolic (congestive) heart failure; L03.116 Cellulitis of left lower limb; L03.115 Cellulitis of right lower limb; J44.1 Chronic obstructive pulmonary disease with (acute) exacerbation; Z68.41 Body mass index [BMI] 40.0-44.9, adult; A04.72 Enterocolitis due to Clostridium difficile, not specified as recurrent; N17.9 Acute kidney failure, unspecified; N39.0 Urinary tract infection, site not specified; E87.2 Acidosis; E87.1 Hypo-osmolality and hyponatremia; I27.82 Chronic pulmonary embolism; Z87.440 Personal history of urinary (tract) infections; Z88.0 Allergy status to penicillin; Z86.718 Personal history of other venous thrombosis and embolism; F10.10 Alcohol abuse, uncomplicated; K22.70 Barrett's esophagus without dysplasia; F31.9 Bipolar disorder, unspecified; N18.32 Chronic kidney disease, stage 3b; B18.2 Chronic viral hepatitis C; K44.9 Diaphragmatic hernia without obstruction or gangrene; Z86.010 Personal history of colon polyps; E03.9 Hypothyroidism, unspecified; D50.9 Iron deficiency anemia, unspecified; E66.9 Obesity, unspecified; Z95.828 Presence of other vascular implants and grafts; E86.0 Dehydration; E55.9 Vitamin D deficiency, unspecified; E83.42 Hypomagnesemia; G40.909 Epilepsy, unspecified, not intractable, without status epilepticus; B96.20 Unspecified Escherichia coli [E. coli] as the cause of diseases classified elsewhere; E21.3 Hyperparathyroidism, unspecified; Z79.51 Long term (current) use of inhaled steroids; F41.9 Anxiety disorder, unspecified; G89.29 Other chronic pain; B37.3 Candidiasis of vulva and vagina; E88.09 Other disorders of plasma-protein metabolism, not elsewhere classified; E87.6 Hypokalemia; I87.2 Venous insufficiency (chronic) (peripheral); I95.9 Hypotension, unspecified; Z89.021 Acquired absence of right finger(s)
CPT/HCPCS: 36415; 36430; 36569; 36592; 51702; 71045; 80048; 80053; 80306; 80307; 81001; 82306; 82310; 82803; 83605; 83735; 83880; 83970; 84100; 84145; 84439; 84443; 84481; 84484; 85025; 85610; 85730; 86140; 86376; 86850; 86900; 86920; 87040; 87086; 87493; 93005; 94640; 96365; 96367; 96372; 97110; 97116; 97162; 99285; C1751; J0610; J0743; J1450; J1940; J1956; J2060; J2405; J3370; J3411; J3475; J3480; J3490; J7030; J7050; J7626; P9016; P9047

== ENCOUNTER 2021-02-21 17:26 | Inpatient (IN) | payer MEDICARE, MEDICAID, SELFPAY ==
[2021-02-21] VITALS (19 sets, daily range): BP systolic 60–112; BP diastolic 37–88; PULSE 90–105; RESP 16–22; TEMP 36.8; O2SAT 95–100; BMI 42.5
--- NOTE | 2021-02-21 17:46 | ECG_ITS ---
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 Molder: : 1975 Requested By: Gideon Gamble Order Number: [id number] Reading MD: LAWRENCE DOMINGO Measurements Intervals [place] Rate: 103 P: 29 MS: 151 QRS: 6 QRSD: 89 T: 95 QT: 349 QTc: 457 Interpretive Statements SINUS TACHYCARDIA LOW QRS VOLTAGE IN PRECORDIAL LEADS [QRS DEFLECTION < 1.0 mV IN CHEST LEADS] POSSIBLE ANTERIOR MYOCARDIAL INFARCTION [30 ms Q WAVE IN V3/V4, OR R < 0.2 mV IN V4], PROBABLY OLD ABNORMAL RHYTHM ECG Compared to ECG 02/08/2021 17:40:04 No significant changes Electronically Signed On 02-21-2021 18:39:07 CDT by LAWRENCE DOMINGO [email or web address]
--- NOTE | 2021-02-21 18:35 | XRR_ITS ---
PROCEDURE INFORMATION: Exam: XR Chest Exam date and time: 02/21/2021 6:35 PM Age: 45 years old Clinical indication: Device placement; Patient HX: Check central line placement; TECHNIQUE: Imaging protocol: XR of the chest. Views: 1 view. COMPARISON: 1. CR (CHEST, ) 02/08/2021 4:48 PM 2. CR (CHEST, ) 01/27/2021 9:35 PM 3. CR (CHEST, ) 01/23/2021 10:07 PM 4. CR (CHEST, ) 01/19/2021 6:18 PM FINDINGS: There is a right internal jugular central venous catheter with tip likely in the axillary vein. This should be repositioned. The lung hernandez are hypoventilated. No infiltrates are present. There is no pleural effusion or pneumothorax. There is cardiomegaly. There is a large hiatal hernia. XR/XR chest 1V portable [id number] IMPRESSION: 1. Right internal jugular central venous catheter with tip in the right axillary vein. This should be repositioned. 2. Marked cardiomegaly. 3. Large hiatal hernia.
--- NOTE | 2021-02-21 18:35 | XRR_ITS ---
PROCEDURE INFORMATION: Exam: XR Chest Exam date and time: 02/21/2021 6:35 PM Age: 45 years old Clinical indication: Device placement; Other: Central line attempt to reposition then removed; Patient HX: Central line attempt to reposition and then removed; Additional info: Central line placement TECHNIQUE: Imaging protocol: XR of the chest. Views: 1 view. COMPARISON: 1. CR (CHEST, ) 02/21/2021 6:32 PM 2. CR (CHEST, ) 02/08/2021 4:48 PM 3. CR (CHEST, ) 01/27/2021 9:35 PM 4. CR (CHEST, ) 01/23/2021 10:07 PM FINDINGS: Is the right central venous catheter is been removed. There continues to be cardiomegaly. The lung hernandez remain hypoventilated. There is a large hiatal hernia. XR/XR chest 1V [id number] IMPRESSION: 1. Removal of the right internal jugular central venous catheter. No pneumothorax. 2. Cardiomegaly. 3. Hypoventilated lungs.
[2021-02-21] MEDS: sodium chloride 0.9% 1,000 ML 999 ML IV (18:49)
[2021-02-21] MEDS: metroNIDAZOLE IV 500 MG/100 ML PREMIX 100 MG IV (18:49)
--- NOTE | 2021-02-21 19:06 | PC.NURSE ---
ok to use central line per Dr. Gamble
[2021-02-21] MEDS: aztreonam 2,000 MG in sodium chloride 0.9% (plus) 100 ML 200 MG IV (19:23)
--- NOTE | 2021-02-21 19:24 | PC.NURSE ---
hold on all iv medications due to reposition central line
[2021-02-21 19:36] LABS: Basophils # 0.2 10^3/uL (0.0-0.1); Basophils % 1.1 %; Eosinophils % 11.3 %; Hematocrit 27.1 % (37.0-47.0); Hemoglobin 8.1 g/dL (11.5-15.3); Lymphocytes # 2.4 10^3/uL (0.8-4.8); Lymphocytes % 13.8 %; Mean Corpuscular HGB Conc 29.9 g/dL (30.0-36.0); Mean Corpuscular Hemoglobin 26.9 pg (28.0-34.0); Mean Platelet Volume 11.7 fL (7.4-10.4); Monocytes # 1.5 10^3/uL (0.2-0.9); Monocytes % 8.5 %; Neutrophils # 11.38 10^3/uL (1.8-7.7); Neutrophils % 64.2 %; Nucleated Red Blood Cells % 0 %; Platelet Count 315 10^3/cmm (130-400); Positive M 1; Red Blood Count 3.01 10^6/uL (4.1-5.3); Red Cell Distribution Width 20.3 % (12.1-15.1); White Blood Count 17.7 10^3/uL (4.0-10.0)
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
--- NOTE | 2021-02-21 19:47 | PC.NURSE ---
;patient is alert, no acute distress noted at this time
[2021-02-21] MEDS: clindamycin 900 MG/50 ML PREMIX 100 MG IV (19:55)
--- NOTE | 2021-02-21 19:57 | PC.NURSE ---
central line removed by MD, patient tolerated well
[2021-02-21] MEDS: diphenhydrAMINE 50 mg/mL SDV 1mL 25 MG IVP ×2 (19:59→21:55)
[2021-02-21 20:03] LABS: Lactic Sepsis W/Reflex 1.7 mmol/L (0.5-2.2)
[2021-02-21 20:05] LABS: Troponin(5th) Baseline 56 ng/L (0-10)
[2021-02-21 20:13] LABS: Alanine Aminotransferase 8 U/L (0-33); Albumin Level 1.8 g/dL (3.5-5.2); Alkaline Phosphatase 222 IU/L (35-105); Anion Gap 14.3 (5-19); Aspartate Amino Transferase 28 U/L (0-32); Blood Urea Nitrogen 34 mg/dL (6-20); Calcium 6.6 mg/dL (8.5-10.5); Carbon Dioxide 30 mmol/L (22-29); Chloride 93 mmol/L (98-107); Creatine Phosphokinase 308 U/L (26-192); Globulin 3.3 g/dL (1.3-4.6); Glomerular Filtration Rate 5.6 mL/min (90-130); Glucose 95 mg/dL (65-115); NT Pro B Type Natriuretic Pept 8092 pg/mL (0-125); Osmolality Calculated 283 mOsm/kg (285-295); Potassium 4.3 mmol/L (3.5-5.1); Sodium 133 mmol/L (136-145); Total Bilirubin 0.6 mg/dL (0.15-1.2); Total Protein 5.1 g/dL (6.6-8.7)
[2021-02-21 20:24] LABS: Alcohol Level < 10 mg/dL (0-10)
--- NOTE | 2021-02-21 20:33 | CTR_ITS ---
PROCEDURE INFORMATION: Exam: CT Abdomen And Pelvis Without Contrast Exam date and time: 02/21/2021 8:33 PM Age: 45 years old Clinical indication: Abdominal pain; Prior surgery; Surgery type: Gb. Hysterectomy. Ivc filter. ; Patient HX: Generalized abd pain. Renal failure. ; Additional info: Abdominal pain. New onset renail failure/ UTI TECHNIQUE: Imaging protocol: Computed tomography of the abdomen and pelvis without contrast. Radiation optimization: All CT scans at this facility use at least one of these dose optimization techniques: automated exposure control; mA and/or kV adjustment per patient size (includes targeted exams where dose is matched to clinical indication); or iterative reconstruction. COMPARISON: 1. CT abdomen pelvis wo con [id number] 01/27/2021 11:[address] abdomen pelvis w con* [id number] 01/23/2021 10:38 PM RADIATION DOSE METRICS: Total DLP (mGy-cm): 1296.06 FINDINGS: There is mild cardiomegaly. There is a large hiatal hernia. There is atelectasis within the lung bases. There are degenerative changes of the spine. There is fatty infiltration of the liver. There is no liver mass. There is no intrahepatic biliary dilatation. The patient is status post cholecystectomy. The pancreas is unremarkable. The spleen is unremarkable. There is no adrenal mass. There is no hydronephrosis. There are no renal calculi. There is no perinephric stranding. There is no renal mass. The aorta is normal in caliber. IVC filter is noted. Small retroperitoneal lymph nodes are present. These are unchanged. There is no mesenteric adenopathy. There is no gastric wall thickening. The small bowel loops in the upper abdomen are nondistended with no bowel wall thickening. Feces is seen throughout the colon. There is no thickening of the wall of the ascending, transverse or descending colons. There is a small fat containing umbilical hernia. There is subcutaneous edema. Within the pelvis: The appendix is not visualized to advantage. However, there is no CT evidence for acute appendicitis. The bladder is decompressed with a Cosme catheter. The patient is status post hysterectomy. There are no adnexal masses. There is no free fluid within the pelvis. Prominent bilateral inguinal lymph nodes are present, unchanged. There is sigmoid diverticulosis. CT/CT abdomen pelvis wo con [id number] IMPRESSION: 1. Overall, findings appear similar to the previous exam. 2. Large hiatal hernia. 3. Fatty infiltration of the liver. 4. Moderate fecal burden suggesting constipation. No evidence for bowel obstruction or bowel wall thickening. 5. Prominent retroperitoneal and inguinal lymph nodes, stable. The Radiation Dose CTDIVOL = (mGy): DLP = 1296.06 (mGy-cm)
[2021-02-21 20:39] LABS: Amphetamines Screen Urine Negative (Negative); Barbiturates Screen Urine Negative (Negative); Benzodiazepines Screen Urine Positive (Negative); Cocaine Screen Urine Negative (Negative); Opiate Screen Urine Positive (Negative); PCP Screen Urine Negative (Negative); THC Screen Urine Negative (Negative)
[2021-02-21] MEDS: sodium chloride 0.9% 1,000 ML 75 ML IV (20:39)
[2021-02-21 20:44] LABS: Add Urine Microscopic? YES; Bilirubin Urine 1+ (Negative); Blood Urine 2+ (Negative); Glucose Urine UA Norm (Normal); Ketones Urine 1+ (Negative); Leukocyte Esterase Urine 2+ (Negative); Nitrate Urine Negative (Negative); Protein Urine 1+ (Negative); Specific Gravity, Urine 1.015 (1.005-1.030); Urine Appearance Cloudy (CLEAR); Urine Color Brown (Yellow); Urobilinogen Urine 1 mg/dL (Negative); pH Urine 5 (5-7)
[2021-02-21 20:45] LABS: Add Urine Culture? Yes; Bacteria Urine 4+ /hpf; RBC Urine 0-4 /hpf (0-2); Squamous Epithelial Cell Urine 0-4 /hpf (0-5); WBC Urine TOO NUMEROUS TO CNT /hpf (0-5)
[2021-02-21 21:57] LABS: Troponin 5 2HR 56.89 ng/L (0-10); Troponin 5 2HR Delta 0.89 ABS# (0-10)
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
--- NOTE | 2021-02-21 22:40 | PC.NURSE ---
rash to chest, abdomen, arms and legs with excoriations from itching. medication given. will continue to monitor
[2021-02-21 23:37] LABS: Magnesium 1.8 mg/dL (1.7-2.3)
[2021-02-21 23:44] LABS: Procalcitonin 41.03 ng/mL (0-0.5)
[2021-02-22] VITALS (104 sets, daily range): BP systolic 86–131; BP diastolic 53–88; PULSE 0–112; RESP 12–34; TEMP 36.2–37; O2SAT 76–100; BMI 40.1
--- NOTE | 2021-02-22 01:22 | PC.PHAR ---
Vancomycin is dosed at 750mg IVPB every 48 hours to produce a predicted trough level of 15.03 (population based pharmacokinetic analysis). A trough level has been ordered from the lab to be obtained before the fourth dose to confirm and adjust if needed.
[2021-02-22] MEDS: metroNIDAZOLE 500 MG Tablet PO ×3 (01:34→17:48)
[2021-02-22] MEDS: hydrocortisone 100 mg/2 mL SDV IVP (01:35)
[2021-02-22] MEDS: diphenhydrAMINE 50 mg/mL SDV 1mL 12.5 MG IVP ×4 (01:35→12:57)
[2021-02-22] MEDS: sodium chloride 0.9% 1,000 ML 75 ML IV (01:37)
[2021-02-22] MEDS: ergocalciferol (vitamin D2) 50,000 Unit Capsule 50000 UNIT PO (03:32)
[2021-02-22] MEDS: thiamine 100 mg Tablet PO (05:12)
[2021-02-22] MEDS: levothyroxine 200 mcg Tablet PO (05:12)
[2021-02-22] MEDS: levothyroxine 75 mcg Tablet PO (05:12)
[2021-02-22] MEDS: folic acid 1 mg Tablet PO (05:12)
[2021-02-22] MEDS: aztreonam 1,000 MG in sodium chloride 0.9% (plus) 50 ML 100 MG IV ×2 (08:04→19:23)
--- NOTE | 2021-02-22 08:52 | PM.PN ---
Subjective Subjective: Interval history: She states she feels perhaps lightly better. She is having pain in her feet especially when she moves them. Denies chest pain or pressure. Denies shortness of breath. She will have some breakfast. States at home she lives with her ex-. Vitals/I&O/Wt Last Vital Signs Temp 98.6 F 02/22/21 04:00 Pulse 73 02/22/21 07:15 Resp 18 02/22/21 07:15 BP 121/72 02/22/21 07:15 Pulse Ox 95 02/22/21 06:45 02/21/21 02/22/21 02/22/21 22:59 06:59 14:59 Intake Total 1718.923 / 1718.923 575.660 / 2294.583 48.514 / 48.514 Output Total 100 / 100 Balance 1718.923 / 1718.923 475.660 / 2194.583 48.514 / 48.514 Weight last 48 hrs Weight 102.965 kg Weight 108.862 kg Physical Exam Const: COMMON NORMALS: no acute distress GENERAL APPEARANCE: disheveled NUTRITIONAL APPEARANCE: obese ORIENTATION/CONSCIOUSNESS: Yes awake OTHER: Appears generally weak. Mumbling answers, but does speak when asked to clarify. HENMT: COMMON NORMALS: oropharynx normal OTHER: No oral lesions. Neck/C-Spine: COMMON NORMALS: no JVD Resp: COMMON NORMALS: normal respiratory effort and clear to auscultation bilaterally AUSCULTATION: clear to auscultation bilaterally Cardio: COMMON NORMALS: no JVD, regular rhythm, S1 normal heart sound present, S2 normal heart sound present and No murmurs present (Cardio) RHYTHM: regular rhythm HEART SOUNDS: S1 normal heart sound present and S2 normal heart sound present GI: COMMON NORMALS: Normal to inspection, nondistended, normoactive bowel sounds present, Soft to palpation and non-tender PALPATION: Yes Soft to palpation Extremity: COMMON NORMALS: no joint enlargement and no pedal edema OTHER: Dirt under fingernails. Neuro: COMMON NORMALS: moves all extremities Skin: OTHER: Patches/confluent rash under armpits, groin, under pannus. Dark pink, appear to be healing. 2 old maculopapular rings on the chest, which appears to have formed around adhesives which are no longer there. Chronic bilateral lower extremity dermatitis below knees secondary to stasis, with areas of cracked skin, no significant weeping. Dry skin, cracks, shallow ulcerations on bilateral feet. Minimal if any erythema. Patches of cornified skin covering shallow ulcerations with small amount of purulence possibly ruptured/old blisters. Urinary Catheter Management^: Cosme: Cath Placed During This Visit: yes Reason for Continuing Indwelling Catheter: Accurate Measurement of Urinary Output in Critically Ill Patients Urinary Catheter Date of Insertion: 02/21/21 Urinary Catheter Time of Insertion: 20:23 Data : 02/21/21 19:17 02/21/21 19:17 Micro: Microbiology 02/21/21 21:31 Blood Culture - Preliminary Blood SPECIMEN COLLECTED 02/21/21 19:17 Blood Culture - Preliminary Blood SPECIMEN COLLECTED A&P Assessment and plan (1) Septic shock: Blood pressures appear to be improving. Weaning of Levophed. Currently down to 2 mcg. Continue antibiotics for urinary tract infection, possible cellulitis. We also covered with Flagyl. No sign of continued C. difficile colitis. Follow-up blood, urine cultures. Conitnue diflucan. Status: Acute (2) TRENTON (acute kidney injury): 250mL urine output overnight (not charted). Monitor I&O. Suspected secondary to septic shock, hypoperfusion. She does states she was taking her medications, although per report did not fill her antibiotic prescription. She does deny having diarrhea. CT scan shows large stool burden/constipation. This morning's lab for some reason does not appear collected. Requested to collect a follow-up renal function. Monitor urine output. Hold off diuretic for now. She is receiving additional gentle fluid challenge with infusion at 75 mL/h. Continue for now, but monitor volume status, urine output, oxygenation, shot up in case of signs of overload. No obstruction noted on CT abdomen pelvis. We will add urine studies. Status: Acute (3) UTI (urinary tract infection): No obstructive uropathy noted. Continue aztreonam. Follow-up urine culture. Status: Acute (4) Generalized maculopapular rash: Rash under armpits, groin, under pannus. Eczematous appearance. Otherwise chronic venous stasis dermatitis bilateral lower extremities, erythema, although unclear whether acute cellulitis is also present. Feet with bilateral skin cracking, dry skin, cornified dry skin patches over areas appearing like shallow ulcerations with small amount of purulence, possibly old/ruptured blisters. No oral lesions. At the surgery hospitalization prescription for fluconazole was given it appears alongside oral vancomycin, but per report she had not picked up antibiotic prescription from the pharmacy. Rashes appear to be improving with dull red/pink coloration. Possibility of fungal infection which appers to be resolving. Drug reaction possible as well including possibly a reaction to Lasix with history of sulfa allergy. Does not appear to have stigmata of SJS/TEN. Had been started on steroids, continue for now. Monitor symptoms. Benadryl as needed for itching as she does pick at her rashes/wounds. Calamine lotion. Continue diflucan. Status: Acute (5) Drug allergy: Status: Acute (6) Eczema: Status: Acute (7) Vitamin D deficiency disease: Status: Acute (8) Hyperparathyroidism , secondary, non-renal: Status: Acute (9) Cellulitis: Possible cellulitis, continue vancomycin. Status: Acute Qualifiers: Site of cellulitis: other site Qualified Code(s): L03.818 - Cellulitis of other sites Additional A&P Information Recent C. difficile colitis: Does not appreciate picked up her antibiotics, however, he seems also she has not been having diarrhea either. Monitor. Hypocalcemia secondary to vitamin D deficiency and hypomagnesemia Continue calcitriol Hypomagnesemia: Replace Chronic anemia, hemoglobin stable Patient required multiple transfusions in the past History of alcoholism: Patient is denying recent alcohol intake Full code DVT prophylaxis: Contraindicated due to history of GI bleed, active anemia and cellulitis she has IVC filter, she is at high risk for recurrent DVTs Unsafe to be discharged home she will need long-term custodial placement Central line was removed in the ER as it was positioned in the right axillary vein Consistent carb diet Attestations Medical Necessity Statement*: Continue admission for assessment and management of sepsis, septic shock, UTI, cellulitis, acute kidney injury. Critical Care Time: In addition to noncritical issues 40 minutes critical care time spent on assessment/management of hemodynamic status, volume status, intake and output with TRENTON, IV fluid, pressor, antibiotics. Discussed w patient, nursing staff. Coding Level of Care Code Acute Environmental Services Assistant for Janeen Ray Diagnoses Septic shock A41.9; R65.21 TRENTON (acute kidney injury) N17.9 UTI (urinary tract infection) N39.0 Generalized maculopapular rash R21 Drug allergy Z88.9 Eczema L30.9 Vitamin D deficiency disease E55.9 Hyperparathyroidism , secondary, non-renal E21.1 Cellulitis L03.818 Site of cellulitis: other site
[2021-02-22 08:55] LABS: Glucose Point of Care 174 mg/dL (70-110)
[2021-02-22 09:20] LABS: Basophils # 0.1 10^3/uL (0.0-0.1); Basophils % 0.7 %; Eosinophils # 0.1 10^3/uL (0.0-0.8); Eosinophils % 1.1 %; Hematocrit 28.4 % (37.0-47.0); Hemoglobin 8.5 g/dL (11.5-15.3); Lymphocytes # 0.5 10^3/uL (0.8-4.8); Lymphocytes % 6.6 %; Mean Corpuscular HGB Conc 29.9 g/dL (30.0-36.0); Mean Corpuscular Volume 90.2 fL (81-99); Monocytes # 0.1 10^3/uL (0.2-0.9); Monocytes % 1.9 %; Neutrophils % 88.3 %; Nucleated Red Blood Cells % 0 %; Platelet Count 305 10^3/cmm (130-400); Red Blood Count 3.15 10^6/uL (4.1-5.3); Red Cell Distribution Width 20.3 % (12.1-15.1)
[2021-02-22] MEDS: fluconazole 100 mg Tablet 200 MG PO (10:02)
[2021-02-22] MEDS: levETIRAcetam 500 mg Tablet 1000 MG PO ×2 (10:02→17:48)
[2021-02-22] MEDS: magnesium oxide 400 mg tablet PO ×2 (10:02→17:48)
[2021-02-22] MEDS: petrolatum oint Pkt 5 gm 1 APPLIC TOPICAL ×3 (10:03→20:58)
--- NOTE | 2021-02-22 10:10 | PC.CHAP ---
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 senior operator visit [] Patient/Family/Request visit [] Outpatient visit [] Follow-up visit [] Physician referral [] Code/Alert [x] Routine visit [] Staff referral [] Actively dying [] Patient sleeping [] Family support [] [] Out of room [] Palliative care [] [] Receiving care in room [] Pre-surgical visit [] Trauma [] Long length of stay [x] ICU visit [] Other: Relational/Emotional Strength [] Patient feels connected with others/family/visitors/staff [] Distress [] Loneliness/isolation [] Abandonment Spirituality of Patient [] Person of Angy [] Attends Amish of their Angy [] Believes in Prayer [] Reads Bible or Judaism materials [] There are Spiritual issues to be addressed Numerical Control Drill Press Operator Interventions [x] Prayer [x] Active listening [x] Non-anxious presence [x] Spiritual/emotional support [] Crisis/trauma care [] Spiritual counseling [] Bereavement support [] Provided bereavement packet [] Provided Bible/devotional materials [] Provided toy/stuffed animal, coloring book to patient or family member [] Provided Communion [] Anointing/[place] [] Salvation [x] Completed spiritual assessment [] Other: Impact on Illness or Injury [] Angry [] Fearful [] Anxious [] Often cries [] Exhaustion [] Unable to work [] Unable to attend zoroastrian [] Unable to walk/stand [] Unable to read [] Unable to drive [] Unable to eat/drink [] Unable to sleep [] Unable to be with family [] Patient intubated [] Other: Summary patient very uncomfortable.. trying to eat Time spent with patient 5 min
[2021-02-22 11:18] LABS: Anion Gap 15.5 (5-19); Blood Urea Nitrogen 34 mg/dL (6-20); Calcium 6.7 mg/dL (8.5-10.5); Carbon Dioxide 26 mmol/L (22-29); Chloride 95 mmol/L (98-107); Glomerular Filtration Rate 7.1 mL/min (90-130); Glucose 164 mg/dL (65-115); Osmolality Calculated 285 mOsm/kg (285-295); Potassium 4.5 mmol/L (3.5-5.1); Sodium 132 mmol/L (136-145)
[2021-02-22 11:18] LABS: Urine Creatinine 177 mg/dL (28-217)
[2021-02-22 12:02] LABS: Urea Nitrogen,Urine Random 221 mg/dL
[2021-02-22 13:06] LABS: Glucose Point of Care 151 mg/dL (70-110)
--- NOTE | 2021-02-22 13:39 | PC.NURSE ---
Afternoon insulin delayed until patient ate lunch
[2021-02-22 17:37] LABS: Anion Gap 14.4 (5-19); Blood Urea Nitrogen 33 mg/dL (6-20); Calcium 6.9 mg/dL (8.5-10.5); Carbon Dioxide 27 mmol/L (22-29); Chloride 95 mmol/L (98-107); Glucose 143 mg/dL (65-115); Osmolality Calculated 284 mOsm/kg (285-295); Potassium 4.4 mmol/L (3.5-5.1); Sodium 132 mmol/L (136-145)
[2021-02-22 17:47] LABS: Glucose Point of Care 137 mg/dL (70-110)
--- NOTE | 2021-02-22 18:38 | PC.NURSE ---
Shift SUmmary: Uneventful shift. Patient's creatinine is still critical, but is trending the right direction. Urine output is very low 0.19ml/kg/hr for the last [address] aware and wants nurse to discontinue IV fluids if it does not improve. Patient has multiple small skin ulcers and a large rash covering most of body. Rash was marked by nurse and it is reducing in size and redness.
[2021-02-22 20:49] LABS: Glucose Point of Care 169 mg/dL (70-110)
[2021-02-23] VITALS (66 sets, daily range): BP systolic 97–142; BP diastolic 65–97; PULSE 40–105; RESP 13–35; TEMP 36.4–36.6; O2SAT 92–98
[2021-02-23] MEDS: metroNIDAZOLE 500 MG Tablet PO ×4 (00:10→23:52)
[2021-02-23] MEDS: sodium chloride 0.9% 1,000 ML 75 ML IV (01:39)
[2021-02-23 05:06] LABS: Basophils % 0.3 %; Hematocrit 27.8 % (37.0-47.0); Hemoglobin 7.8 g/dL (11.5-15.3); Lymphocytes # 0.4 10^3/uL (0.8-4.8); Lymphocytes % 13.3 %; Mean Corpuscular HGB Conc 28.1 g/dL (30.0-36.0); Mean Corpuscular Hemoglobin 26.8 pg (28.0-34.0); Mean Corpuscular Volume 95.5 fL (81-99); Mean Platelet Volume 11.5 fL (7.4-10.4); Monocytes # 0.2 10^3/uL (0.2-0.9); Monocytes % 5.7 %; Neutrophils % 79.4 %; Nucleated Red Blood Cells % 0 %; Platelet Count 223 10^3/cmm (130-400); Red Blood Count 2.91 10^6/uL (4.1-5.3); Red Cell Distribution Width 19.9 % (12.1-15.1); White Blood Count 3.2 10^3/uL (4.0-10.0)
[2021-02-23] MEDS: thiamine 100 mg Tablet PO (05:20)
[2021-02-23] MEDS: levothyroxine 200 mcg Tablet PO (05:20)
[2021-02-23] MEDS: levothyroxine 75 mcg Tablet PO (05:20)
[2021-02-23] MEDS: folic acid 1 mg Tablet PO (05:20)
[2021-02-23] MEDS: tizanidine 4 mg Tablet 2 MG PO (05:20)
[2021-02-23 05:28] LABS: Alanine Aminotransferase 7 U/L (0-33); Albumin Level 1.8 g/dL (3.5-5.2); Alkaline Phosphatase 186 IU/L (35-105); Anion Gap 13.3 (5-19); Aspartate Amino Transferase 12 U/L (0-32); Blood Urea Nitrogen 35 mg/dL (6-20); Calcium 6.9 mg/dL (8.5-10.5); Carbon Dioxide 27 mmol/L (22-29); Chloride 100 mmol/L (98-107); Globulin 3.5 g/dL (1.3-4.6); Glomerular Filtration Rate 8.9 mL/min (90-130); Glucose 152 mg/dL (65-115); Magnesium 2.2 mg/dL (1.7-2.3); Osmolality Calculated 293 mOsm/kg (285-295); Potassium 4.3 mmol/L (3.5-5.1); Sodium 136 mmol/L (136-145); Total Bilirubin 0.3 mg/dL (0.15-1.2); Total Protein 5.3 g/dL (6.6-8.7)
[2021-02-23] MEDS: aztreonam 1,000 MG in sodium chloride 0.9% (plus) 50 ML 100 MG IV ×2 (07:57→20:56)
--- NOTE | 2021-02-23 08:11 | XR_ITS ---
WS: [id number] Portable AP upright chest, 02/23/2021 Clinical Data: hypoxia Comparison: Portable chest, 02/21/2021. Findings: The heart is enlarged. There are patchy opacities at the left lung base and at the right ca rdiophrenic angle. No pneumothorax is present. No nodules or masses are seen. The patient has a poor inspiratory effort. Monitor leads are on the chest wall. XR/XR chest 1V portable [id number] Impression: 1. Cardiomegaly with poor inspiratory effort. 2. Patchy opacities at right cardiophrenic angle and left lung basilar scarring which may represent consolidation and/or atelectasis.
--- NOTE | 2021-02-23 08:26 | PC.CHAP ---
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 supervisory it specialist visit [] Patient/Family/Request visit [] Outpatient visit [] Follow-up visit [] Physician referral [] Code/Alert [x] Routine visit [] Staff referral [] Actively dying [x] Patient sleeping [] Family support [] [] Out of room [] Palliative care [] [] Receiving care in room [] Pre-surgical visit [] Trauma [] Long length of stay []x ICU visit [] Other: Relational/Emotional Strength [] Patient feels connected with others/family/visitors/staff [] Distress [] Loneliness/isolation [] Abandonment Spirituality of Patient [] Person of Angy [] Attends Evangelical of their Angy [] Believes in Prayer [] Reads Bible or Anabaptist materials [] There are Spiritual issues to be addressed Installer Apprentice Interventions [x] Prayer [] Active listening [] Non-anxious presence [] Spiritual/emotional support [] Crisis/trauma care [] Spiritual counseling [] Bereavement support [] Provided bereavement packet [] Provided Bible/devotional materials [] Provided toy/stuffed animal, coloring book to patient or family member [] Provided Communion [] Anointing/[place] [] Salvation [x] Completed spiritual assessment [] Other: Impact on Illness or Injury [] Angry [] Fearful [] Anxious [] Often cries [] Exhaustion [] Unable to work [] Unable to attend rastafari [] Unable to walk/stand [] Unable to read [] Unable to drive [] Unable to eat/drink [] Unable to sleep [] Unable to be with family [] Patient intubated [] Other: Summary Time spent with patient
[2021-02-23 08:49] LABS: Glucose Point of Care 163 mg/dL (70-110)
--- NOTE | 2021-02-23 09:49 | ECG_ITS ---
[facility] Test Date: 2021-02-23 Pat Name: Delores Mckeon Department: Room: ICU12 Gender: Female Mate Chief: : 1975 Requested By: Herminio Ovalle Order Number: [id number] Gar[place] MD: Odalis Johnston M.D. Measurements Intervals [place] Rate: 44 P: 34 CA: 146 QRS: 24 QRSD: 88 T: 36 QT: 559 QTc: 480 Interpretive Statements SINUS BRADYCARDIA WITH MARKED SINUS ARRHYTHMIA LOW QRS VOLTAGE IN PRECORDIAL LEADS [QRS DEFLECTION < 1.0 mV IN CHEST LEADS] PROLONGED QT INTERVAL Compared to ECG 02/21/2021 17:54:43 Prolonged QT interval now present Sinus tachycardia no longer present Myocardial infarct finding no longer present Electronically Signed On 02-24-2021 14:26:43 CDT by Odalis Johnston M.D. [email or web address]
--- NOTE | 2021-02-23 10:16 | PM.PN ---
Subjective Subjective: Interval history: Reports pain in her feet and down her flanks. Breathing otherwise this is okay. At home is on 2-4 L. Asks for pain medicine. Vitals/I&O/Wt Last Vital Signs Temp 98 F 02/23/21 05:30 Pulse 48 L 02/23/21 09:25 Resp 15 02/23/21 08:00 BP 119/73 02/23/21 08:00 Pulse Ox 98 02/23/21 09:25 02/22/21 02/23/21 02/23/21 22:59 06:59 14:59 Intake Total 650 / 1980.833 100 / 2080.833 Output Total 100 / 500 275 / 775 Balance 550 / 1480.833 -175 / 1305.833 Weight last 48 hrs Weight 105.778 kg Weight 102.965 kg Weight 108.862 kg Physical Exam Const: COMMON NORMALS: no acute distress and alert GENERAL APPEARANCE: disheveled NUTRITIONAL APPEARANCE: obese ORIENTATION/CONSCIOUSNESS: Yes awake OTHER: Generally weak, but a little stronger today. Mumbling answers, but does speak when asked to clarify. HENMT: COMMON NORMALS: oropharynx normal OTHER: No oral lesions. Neck/C-Spine: COMMON NORMALS: no JVD Resp: COMMON NORMALS: normal respiratory effort and clear to auscultation bilaterally AUSCULTATION: clear to auscultation bilaterally Cardio: COMMON NORMALS: no JVD, regular rhythm, S1 normal heart sound present, S2 normal heart sound present and No murmurs present (Cardio) RHYTHM: regular rhythm HEART SOUNDS: S1 normal heart sound present and S2 normal heart sound present GI: COMMON NORMALS: Normal to inspection, nondistended, normoactive bowel sounds present, Soft to palpation and non-tender PALPATION: Yes Soft to palpation Extremity: COMMON NORMALS: no joint enlargement and no pedal edema Neuro: COMMON NORMALS: moves all extremities SENSORIUM/ORIENTATION: Yes alert Skin: OTHER: Improving, now duller/pink patches/confluent rash under armpits, groin, under pannus. Dark pink, appear to be healing. 2 old maculopapular rings on the chest Chronic bilateral lower extremity dermatitis below knees secondary to stasis, with areas of cracked skin, no significant weeping. Dry skin, cracks, shallow ulcerations on bilateral feet. Minimal if any erythema. Patches of cornified skin now moisturized Urinary Catheter Management^: Cosme: Cath Placed During This Visit: yes Reason for Continuing Indwelling Catheter: Accurate Measurement of Urinary Output in Critically Ill Patients Urinary Catheter Date of Insertion: 02/21/21 Urinary Catheter Time of Insertion: 20:23 Data : 02/23/21 04:55 02/23/21 04:55 Micro: Microbiology 02/21/21 20:17 Urine Culture - Preliminary Urine,Clean Catch Gram Negative Rods 02/21/21 21:31 Blood Culture - Preliminary Blood Gram positive cocci 02/21/21 19:17 Blood Culture - Preliminary Blood NEGATIVE TO DATE A&P Assessment and plan (1) Septic shock: Septic shock resolved. Weaned off pressor. Maintaining blood pressures well. Sepsis: Continue antibiotics for urinary tract infection, possible cellulitis. GNR in urine. GPC 1/4 bottle in blood. Repeat blood culture. Discussed with her. Continue estrogen, vancomycin, Flagyl. Conitnue diflucan for possible fungal skin infection. Status: Acute (2) TR[place]ON (acute kidney injury): Slow/gradual improvement in creatinine, although urine output has been somewhat precarious. She is in positive balance, still receiving infusions, low urine output, will hold additional IVF for now as has some worsening of hypoxia. Repeat chest x-ray. Recent C. difficile colitis, but so far no diarrhea reported. Follow-up renal function. Monitor urine output. Hold off diuretic for now. No obstruction noted on CT abdomen pelvis. Prerenal TRENTON by urine studies yesterday. Status: Acute (3) UTI (urinary tract infection): No obstructive uropathy noted. Continue aztreonam. Follow-up urine culture. Status: Acute (4) Generalized maculopapular rash: Improving. Continue steroid for now. She states Benadryl worked better for itching, will switch. Continue Diflucan for possible fungal superinfection. Continue to biotics for cellulitis of lower extremities. Rash under armpits, groin, under pannus. Eczematous appearance. Otherwise chronic venous stasis dermatitis bilateral lower extremities, erythema, although unclear whether acute cellulitis is also present. Feet with bilateral skin cracking, dry skin, cornified dry skin patches over areas appearing like shallow ulcerations with small amount of purulence, possibly old/ruptured blisters. No oral lesions. At the surgery hospitalization prescription for fluconazole was given it appears alongside oral vancomycin, but per report she had not picked up antibiotic prescription from the pharmacy. Rashes appear to be improving with dull red/pink coloration. Possibility of fungal infection which appers to be resolving. Drug reaction possible as well including possibly a reaction to Lasix with history of sulfa allergy. Does not appear to have stigmata of SJS/TEN. Had been started on steroids, continue for now. Monitor symptoms. Benadryl as needed for itching as she does pick at her rashes/wounds. Calamine lotion. Status: Acute (5) Drug allergy: Status: Acute (6) Eczema: Status: Acute (7) Vitamin D deficiency disease: Status: Acute (8) Hyperparathyroidism , secondary, non-renal: Status: Acute (9) Cellulitis: Continue vancomycin. Status: Acute Qualifiers: Site of cellulitis: other site Qualified Code(s): L03.818 - Cellulitis of other sites Additional A&P Information Bradycardia: Noted this morning. Continue telemetry monitoring. Will request EKG. Stop tizanidine. Repeat BMP with renal failure to reassess potassium. Recent C. difficile colitis: So far no further diarrhea. Monitor. Hypocalcemia secondary to vitamin D deficiency and hypomagnesemia Continue calcitriol Hypomagnesemia: Replaced Chronic anemia, hemoglobin stable Patient required multiple transfusions in the past History of alcoholism: Patient is denying recent alcohol intake Attestations Medical Necessity Statement*: Continue admission for assessment of management of sepsis, UTI, cellulitis, severe acute kidney injury, low urine output, eczematous rash, possibly drug reaction, bradycardia. 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
[2021-02-23] MEDS: fluconazole 100 mg Tablet 200 MG PO (10:17)
[2021-02-23] MEDS: levETIRAcetam 500 mg Tablet 1000 MG PO (10:18)
[2021-02-23] MEDS: magnesium oxide 400 mg tablet PO ×2 (10:19→18:24)
[2021-02-23] MEDS: petrolatum oint Pkt 5 gm 1 APPLIC TOPICAL ×3 (10:28→21:47)
[2021-02-23 11:02] LABS: Anion Gap 14.3 (5-19); Blood Urea Nitrogen 36 mg/dL (6-20); Calcium 7.1 mg/dL (8.5-10.5); Carbon Dioxide 25 mmol/L (22-29); Chloride 99 mmol/L (98-107); Glomerular Filtration Rate 9.3 mL/min (90-130); Glucose 174 mg/dL (65-115); Osmolality Calculated 291 mOsm/kg (285-295); Potassium 4.3 mmol/L (3.5-5.1); Sodium 134 mmol/L (136-145)
[2021-02-23 12:37] LABS: Glucose Point of Care 206 mg/dL (70-110)
[2021-02-23 17:08] LABS: Glucose Point of Care 156 mg/dL (70-110)
[2021-02-23] MEDS: diphenhydrAMINE 50 mg/mL SDV 1mL 25 MG IVP ×2 (17:44→21:47)
[2021-02-23 18:16] LABS: Thyroid Stimulating Hormone 19.22 uIU/mL (0.27-4.20)
[2021-02-23] MEDS: fluticasone nasal spray 16gm Btl 1 SPRAY INTRANASAL (18:21)
[2021-02-23] MEDS: levETIRAcetam 500 mg Tablet 250 MG PO (18:23)
[2021-02-23] MEDS: pantoprazole DR 40 mg Tablet PO (18:24)
[2021-02-23 21:24] LABS: Glucose Point of Care 129 mg/dL (70-110)
--- NOTE | 2021-02-23 22:29 | PC.NURSE ---
Orders received to transfer pt to [facility]. Report called. Pt transferred on bed by nurse with meds and belongings at 2215. VSS.
[2021-02-24] VITALS (38 sets, daily range): BP systolic 107–126; BP diastolic 72–93; PULSE 66–94; RESP 16–28; TEMP 36.3–36.4; O2SAT 94–99
[2021-02-24] MEDS: oxyCODONE 5 mg IR Tab/Cap PO ×3 (02:49→17:14)
[2021-02-24 04:06] LABS: Basophils % 0.2 %; Hematocrit 28.5 % (37.0-47.0); Lymphocytes # 0.5 10^3/uL (0.8-4.8); Mean Corpuscular HGB Conc 28.1 g/dL (30.0-36.0); Mean Corpuscular Volume 96.3 fL (81-99); Mean Platelet Volume 11.9 fL (7.4-10.4); Monocytes # 0.2 10^3/uL (0.2-0.9); Monocytes % 3.3 %; Neutrophils # 4.14 10^3/uL (1.8-7.7); Neutrophils % 84.7 %; Nucleated Red Blood Cells % 0 %; Platelet Count 278 10^3/cmm (130-400); Red Blood Count 2.96 10^6/uL (4.1-5.3); Red Cell Distribution Width 20.1 % (12.1-15.1); White Blood Count 4.9 10^3/uL (4.0-10.0)
[2021-02-24 04:25] LABS: Alanine Aminotransferase 6 U/L (0-33); Alkaline Phosphatase 181 IU/L (35-105); Anion Gap 21.6 (5-19); Aspartate Amino Transferase 9 U/L (0-32); Blood Urea Nitrogen 44 mg/dL (6-20); Calcium 7.4 mg/dL (8.5-10.5); Carbon Dioxide 22 mmol/L (22-29); Chloride 99 mmol/L (98-107); Globulin 3.6 g/dL (1.3-4.6); Glucose 111 mg/dL (65-115); Osmolality Calculated 298 mOsm/kg (285-295); Potassium 4.6 mmol/L (3.5-5.1); Sodium 138 mmol/L (136-145); Total Bilirubin 0.3 mg/dL (0.15-1.2); Total Protein 5.6 g/dL (6.6-8.7)
[2021-02-24] MEDS: levothyroxine 75 mcg Tablet PO (05:40)
[2021-02-24] MEDS: fluticasone nasal spray 16gm Btl 1 SPRAY INTRANASAL (05:40)
[2021-02-24] MEDS: levothyroxine 200 mcg Tablet PO (05:40)
[2021-02-24] MEDS: thiamine 100 mg Tablet PO (05:41)
[2021-02-24] MEDS: pantoprazole DR 40 mg Tablet PO ×2 (05:41→18:45)
[2021-02-24] MEDS: folic acid 1 mg Tablet PO (05:41)
[2021-02-24] MEDS: diphenhydrAMINE 50 mg/mL SDV 1mL 25 MG IVP ×3 (05:45→19:40)
[2021-02-24 06:42] LABS: Glucose Point of Care 110 mg/dL (70-110)
[2021-02-24] MEDS: fluconazole 100 mg Tablet 200 MG PO (08:12)
[2021-02-24] MEDS: metroNIDAZOLE 500 MG Tablet PO (08:14)
[2021-02-24] MEDS: magnesium oxide 400 mg tablet PO ×2 (08:14→18:45)
[2021-02-24] MEDS: levETIRAcetam 500 mg Tablet 250 MG PO ×2 (08:14→18:44)
[2021-02-24] MEDS: petrolatum oint Pkt 5 gm 1 APPLIC TOPICAL ×3 (08:14→21:48)
[2021-02-24] MEDS: aztreonam 1,000 MG in sodium chloride 0.9% (plus) 50 ML 100 MG IV ×2 (08:15→19:39)
--- NOTE | 2021-02-24 09:06 | DCPLANNER ---
Pg 2 of IM updated and reviewed with pt. No questions but comments that she should have used this opportunity the last time she was here. Copy provided.
--- NOTE | 2021-02-24 10:20 | P.PN_ITS ---
Subjective Subjective: Interval history: She is doing about all right, but abdomen feels bloated. She did have a bowel movement earlier today. Some persistent abdominal discomfort. Otherwise doing okay. Vitals/I&O/Wt Last Vital Signs Temp 97.5 F L 02/24/21 04:00 Pulse 82 02/24/21 10:00 Resp 27 H 02/24/21 10:00 BP 107/75 02/24/21 10:00 Pulse Ox 96 02/24/21 10:00 02/23/21 02/24/21 02/24/21 22:59 06:59 14:59 Intake Total 225 / 1160 50 / 50 Output Total 300 / 850 Balance -75 / 310 50 / 50 Weight last 48 hrs Weight 112.854 kg Weight 105.778 kg Physical Exam Const: COMMON NORMALS: no acute distress and alert GENERAL APPEARANCE: disheveled NUTRITIONAL APPEARANCE: obese ORIENTATION/CONSCIOUSNESS: Yes awake OTHER: Generally weak. A little stronger. We will bit more interactive today and easier to understand/bring a bit more effort into speaking clearly. HENMT: COMMON NORMALS: oropharynx normal OTHER: No oral lesions. Neck/C-Spine: COMMON NORMALS: no JVD Resp: COMMON NORMALS: normal respiratory effort and clear to auscultation bilaterally AUSCULTATION: clear to auscultation bilaterally Cardio: COMMON NORMALS: no JVD, regular rhythm, S1 normal heart sound present, S2 normal heart sound present and No murmurs present (Cardio) RHYTHM: regular rhythm HEART SOUNDS: S1 normal heart sound present and S2 normal heart sound present GI: COMMON NORMALS: Normal to inspection, nondistended, normoactive bowel sounds present, Soft to palpation and non-tender PALPATION: Yes Soft to palpation Extremity: COMMON NORMALS: no joint enlargement and no pedal edema Neuro: COMMON NORMALS: moves all extremities SENSORIUM/ORIENTATION: Yes alert Skin: OTHER: Resolving erythema patches/confluent rash under armpits, groin, under pannus. Dark pink, appear to be healing. Chronic bilateral lower extremity dermatitis below knees secondary to stasis, with areas of cracked skin, no weeping. Dry skin, cracks, shallow ulcerations on bilateral feet now moisturized and healing. No erythema. Patches of cornified skin now moisturized Urinary Catheter Management^: Cosme: Cath Placed During This Visit: yes Reason for Continuing Indwelling Catheter: Accurate Measurement of Urinary Output in Critically Ill Patients Urinary Catheter Date of Insertion: 02/21/21 Urinary Catheter Time of Insertion: 20:23 Data : 02/24/21 03:34 02/24/21 03:34 Micro: Microbiology 02/23/21 10:38 Blood Culture - Preliminary Blood SPECIMEN COLLECTED 02/23/21 10:30 Blood Culture - Preliminary Blood SPECIMEN COLLECTED 02/21/21 20:17 Urine Culture - Preliminary Urine,Clean Catch Gram Negative Rods 02/21/21 21:31 Blood Culture - Preliminary Blood Gram positive cocci A&P Assessment and plan (1) Bacteremia: Enterococcus in blood, 1/4 bottles. Follow-up sensitivity. So far no growth on repeat culture 02/23. Repeat culture 02/24. Continue vancomycin. Would suspect skin is a port of entry, due to significant contamination, very dirty on presentation, with maggots on her feet. Obtain limited TTE. Check ESR, CRP. Status: Acute (2) [place] (acute kidney injury): Creatinine very slowly improving, suspect now ATN. Creatinine today down to 4.7. He is making some urine. Continue to monitor urine output, renal function. Monitor oxygenation as is at risk of fluid overload with suboptimal urine output. Cardiomegaly, patchy opacities right cardiophrenic angle and lung basilar scarring, possibly consolidation and/or atelectasis. Possible pneumonia, continue aztreonam, vancomycin. Recent C. difficile colitis, but so far no diarrhea reported. Follow-up renal function. Monitor urine output. Hold off diuretic for now. No obstruction noted on CT abdomen pelvis. Prerenal TR[place]ON by urine studies yesterday. Status: Acute (3) UTI (urinary tract infection): E. coli resistant to ampicillin, intermediate Unasyn, resistant to robbin olones, tetracycline, Bactrim. No obstructive uropathy noted. Continue aztreonam. Follow-up urine culture. Status: Acute (4) Septic shock: Septic shock resolved. Weaned off pressor. Maintaining blood pressures well. Sepsis: Stop flagyl. Continue antibiotics for bacteremia, urinary tract infection, cellulitis. GNR in urine. Enterococcus 1/4 bottle in blood. Repeat blood culture. Continue estrogen, vancomycin. Conitnue diflucan for possible fungal skin infection. Status: Acute (5) Generalized maculopapular rash: Rash under armpits, groin/abdomen, quite significantly improving/resolving. Yesterday changed to Benadryl for itching due to QT prolongation with hydroxyzine. Stop steroid. Continue Diflucan for possible fungal superinfection. Continue to antibiotics for cellulitis of lower extremities. Resolving rash under armpits, groin, under pannus. Eczematous appearance. Otherwise chronic venous stasis dermatitis bilateral lower extremities, erythema, although unclear whether acute cellulitis is also present. Feet with bilateral skin cracking, dry skin, cornified dry skin patches over areas appearing like shallow ulcerations with small amount of purulence, possibly old/ruptured blisters. No oral lesions. Drug reaction possible as well including possibly a reaction to Lasix with history of sulfa allergy. Added lasix to allergy list as possible culprit. No stigmata of SJS/TEN. Had been started on steroids, continue for now. Monitor symptoms. Benadryl as needed for itching as she does pick at her rashes/wounds. Calamine lotion. Status: Acute (6) Drug allergy: Status: Acute (7) Eczema: Status: Acute (8) Vitamin D deficiency disease: Status: Acute (9) Hyperparathyroidism , secondary, non-renal: Status: Acute (10) Cellulitis: Continue vancomycin. Benadryl as needed for itching. Status: Acute Qualifiers: Site of cellulitis: other site Qualified Code(s): L03.818 - Cellulitis of other sites (11) Hypothyroidism: Discussed with her TSH elevated at 19.22. She states she had been taking her medications at home. Perhaps Keppra level may help us with some indication whether she is adherent and/or not absorbing her medications. Continue levothyroxine at this time. Follow-up with endocrinology. Status: Acute Qualifiers: Hypothyroidism type: unspecified Qualified Code(s): E03.9 - Hypothyroidism, unspecified Additional A&P Information Possible pneumonia: Hypoxia improving, continue aztreonam, vancomycin. Add I-S. Bradycardia: Resolved. Noted 02/23. Transient. Possibly secondary to electrolyte shifts secondary to changes in renal function. Continue telemetry monitoring. Stopped tizanidine. Stopped hydroxyzine due to QT prolongation. QT prolongation: 02/23. Stop hydroxyzine. Recent C. difficile colitis: So far no further diarrhea. Monitor. Hypocalcemia secondary to vitamin D deficiency and hypomagnesemia Continue calcitriol Hypomagnesemia: Replaced Chronic anemia, hemoglobin stable Patient required multiple transfusions in the past History of alcoholism: Patient is denying recent alcohol intake Attestations Medical Necessity Statement*: Continue admission for assessment management of enterococcal bacteremia, slowly resolving severe acute kidney injury/ATN, with poor urine output, risk of fluid overload, treatment of additional infections with urinary tract infection, cellulitis, monitoring of resolving rash involving large areas of skin suspected drug reaction, possible superinfection, possibly fungal, treatment of possible pneumonia, disposition planning and arrangements. Coding Level of Care Code Acute Per Diem Interpreter for [facility] Fwd Diagnoses Bacteremia R78.81 [place] (acute kidney injury) N17.9 UTI (urinary tract infection) N39.0 Septic shock A41.9; R65.21 Generalized maculopapular rash R21 Drug allergy Z88.9 Eczema L30.9 Vitamin D deficiency disease E55.9 Hyperparathyroidism , secondary, non-renal E21.1 Cellulitis L03.818 Site of cellulitis: other site Hypothyroidism E03.9 Hypothyroidism type: unspecified
--- NOTE | 2021-02-24 10:36 | USCV_ITS ---
Delores Mckeon Age: 45 Gender: F : 1975 Exam Date: 02/24/2021 12:19 Ordering Phys: Herminio Ovalle MD Technologist: Becky James Exam Location: [facility] [place] Indication: GPC bacteremia BP: 107 / 75 HR: 83 Rhythm: Sinus Technical Quality: Adequate MEASUREMENTS (Male / Female) Normal Values 2D ECHO LV Diastolic Diameter PLAX 4.7 cm 4.2 - 5.9 / 3.9 - 5.3 cm LV Systolic Diameter PLAX 3.6 cm IVS Diastolic Thickness 0.7 cm 0.6 - 1.0 / 0.6 - 0.9 cm IVS Systolic Thickness 0.7 cm LVPW Diastolic Thickness 1.1 cm 0.6 - 1.0 / 0.6 - 0.9 cm LVPW Systolic Thickness 1.8 cm LVOT Diameter 2.1 cm LV Ejection Fraction 2D Teich 47.3 % LV Ejection Fraction MOD 2C 39.3 % LV Ejection Fraction 2C AL 41.7 % LA Diameter 4.1 cm LA Width 3.7 cm LA Height 6.2 cm RA Width 3.9 cm RA Height 5.7 cm Aorta at Sinotubular Diameter 2.9 cm M-MODE LV Diastolic Diameter MM 4.4 cm 4.2 - 5.9 / 3.9 - 5.3 cm LV Systolic Diameter MM 3.6 cm LV Ejection Fraction MM Teich 37.6 % IVS Diastolic Thickness MM 0.7 cm 0.6 - 1.0 / 0.6 - 0.9 cm IVS Systolic Thickness MM 0.6 cm LVPW Diastolic Thickness MM 0.9 cm 0.6 - 1.0 / 0.6 - 0.9 cm LVPW Systolic Thickness MM 1.6 cm Aortic Annulus Diameter 3.0 cm LA Ao Ratio MM 1.4 MV E Point Septal Separation 1.2 cm DOPPLER AV Peak Velocity 104.0 cm/s LVOT Peak Velocity 75.0 cm/s AV Area Cont Eq vti 2.8 cm squared AV Area Cont Eq pk 2.4 cm squared MV Peak Velocity 121.0 cm/s MV Area PHT 3.7 cm squared Mitral E to A Ratio 3.0 MV E' Velocity 127.0 cm/s Mitral E to LV E' Septal Ratio 12.1 TR Peak Velocity 355.0 cm/s TR Peak Gradient 50.4 mmHg TR Mean Velocity 232.2 cm/s TR Mean Gradient 24.6 mmHg TR Velocity Time Integral 118.5 cm Right Atrial Pressure 10.0 mmHg Pulmonary Artery Systolic Pressu 60.4 mmHg PV Peak Velocity 78.0 cm/s RV Acceleration Time 0.1 s RV Ejection Time 0.3 s RV AcT/ET 0.4 FINDINGS Left Ventricle Normal left ventricular size and systolic function, EF 55 %. No regional wall motion abnormalities. Right Ventricle Normal right ventricular size and systolic function. Right Atrium Mildly increased right atrial size. Left Atrium Mildly increased left atrial size. Mitral Valve Mild-moderate mitral valve regurgitation. Mild prolapse of the anterior mitral leaflet. Minimal thickening of the anterior mitral leaflet Aortic Valve Mild aortic valve regurgitation. Tricuspid Valve The anterior leaflet appears to be thickened.. Moderately srvere tricuspid valve regurgitation. Estimated pulmonary artery peak systolic pressure of 60 mm of Hg Pulmonic Valve Mild pulmonary valve regurgitation. Pericardium No pericardial effusion. Aorta Normal ascending aorta dimension. CONCLUSIONS Normal left ventricular size and systolic function, EF 55 %. No regional wall motion abnormalities. Mild biatrial enlargement. Mild-moderate mitral valve regurgitation. Slightly thickened anterior mitral leaflet with minimal prolapse. Thickening of the anterior tricuspid leaflet with moderately severe tricuspid regurgitation Mild aortic valve regurgitation. Mild pulmonary valve regurgitation. Moderate pulmonary hypertension with estimated pulmonary artery peak systolic pressure of 60 mmHg Consider HANY, to better evaluate the tricuspid valve. In view of the technical limitations, a vegetation on the tricuspid leaflet cannot be ruled out. Compared to the study from 05/16/2020, there is worsening of the mitral and tricuspid regurgitation Dr Ravinder House MD [facility] (Electronically Signed) Final Date: 24 February 2021 16:13 S
[2021-02-24 10:55] LABS: C Reactive Protein 61.2 mg/L (0.0-4.9)
[2021-02-24 11:16] LABS: Erythrocyte Sedimentation Rate 55 mm/hr (0-15)
[2021-02-24 11:38] LABS: Glucose Point of Care 143 mg/dL (70-110)
[2021-02-24 17:21] LABS: Glucose Point of Care 120 mg/dL (70-110)
[2021-02-24] MEDS: CLONazepam 0.5 mg Tablet 0.125 MG PO (19:40)
[2021-02-24 21:32] LABS: Glucose Point of Care 136 mg/dL (70-110)
[2021-02-24] MEDS: vancomycin 750 MG in sodium chloride 0.9% 250 ML 250 MG IV (21:48)
[2021-02-25] VITALS (15 sets, daily range): BP systolic 103–199; BP diastolic 69–96; PULSE 74–100; RESP 14–25; TEMP 36.4–36.9; O2SAT 91–99
[2021-02-25] MEDS: oxyCODONE 5 mg IR Tab/Cap PO ×4 (00:35→21:55)
[2021-02-25] MEDS: diphenhydrAMINE 50 mg/mL SDV 1mL 25 MG IVP ×6 (00:36→23:44)
--- NOTE | 2021-02-25 00:54 | PC.NURSE ---
Bedside report received from Corrie BARRETT. Patient is resting in bed with her significant other at the bedside. Patient is drinking a [address] and eating [place] food. Patient was educated on nutrition needs for a diabetic and for proper wound healing. Patient has C/O of anxiety and severe itching. PRN medication provided as ordered.
--- NOTE | 2021-02-25 00:58 | PC.NURSE ---
Provided chucho-care and applied barrier cream to patients buttocks. Patient refused to be turned and pillows placed. Nurse will continue to encourage patient the importance of alleviating pressure to her bottom.
[2021-02-25] MEDS: folic acid 1 mg Tablet PO (05:35)
[2021-02-25] MEDS: pantoprazole DR 40 mg Tablet PO ×2 (05:35→18:51)
[2021-02-25] MEDS: fluticasone nasal spray 16gm Btl 1 SPRAY INTRANASAL (05:35)
[2021-02-25] MEDS: thiamine 100 mg Tablet PO (05:36)
[2021-02-25] MEDS: levothyroxine 200 mcg Tablet PO (05:36)
[2021-02-25] MEDS: levothyroxine 75 mcg Tablet PO (05:36)
--- NOTE | 2021-02-25 06:11 | PC.NURSE ---
Complete linen change and patient up to chair with moderate assistance
--- NOTE | 2021-02-25 06:47 | PC.NURSE ---
POC Glucose was 119. Not crossing over in [facility]
[2021-02-25] MEDS: aztreonam 1,000 MG in sodium chloride 0.9% (plus) 50 ML 100 MG IV ×2 (07:39→20:30)
[2021-02-25] MEDS: levETIRAcetam 500 mg Tablet 250 MG PO ×2 (08:41→18:50)
[2021-02-25] MEDS: magnesium oxide 400 mg tablet PO ×2 (08:42→18:50)
[2021-02-25] MEDS: fluconazole 100 mg Tablet 200 MG PO (08:42)
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
[2021-02-25 11:02] LABS: Glucose Point of Care 111 mg/dL (70-110)
--- NOTE | 2021-02-25 15:00 | PC.NURSE ---
Patient declined skin care at this time. Patient eating food brought by her .
[2021-02-25 16:26] LABS: Glucose Point of Care 104 mg/dL (70-110)
[2021-02-25] MEDS: CLONazepam 0.5 mg Tablet 0.125 MG PO (16:29)
--- NOTE | 2021-02-25 18:19 | P.PN_ITS ---
Subjective Subjective: Interval history: Her abdomen feels somewhat full/distended, although she had a bowel movement, she is passing flatus. No nausea or vomiting. No irritation. Tolerating oral intake. Denies chest pain or pressure. Breathing is comfortable. Vitals/I&O/Wt Last Vital Signs Temp 97.6 F 02/25/21 08:00 Pulse 92 02/25/21 14:00 Resp 22 H 02/25/21 13:25 BP 199/95 02/25/21 11:30 Pulse Ox 97 02/25/21 11:30 02/25/21 02/25/21 02/25/21 06:59 14:59 22:59 Intake Total 250 / 915 720 / 720 Output Total 400 / 1335 Balance -150 / -420 720 / 720 Weight last 48 hrs Weight 112.945 kg Weight 112.854 kg Physical Exam Const: COMMON NORMALS: no acute distress and alert GENERAL APPEARANCE: disheveled NUTRITIONAL APPEARANCE: obese ORIENTATION/CONSCIOUSNESS: Yes awake OTHER: She is entirely alert, interacting well. Speaking clearly. Continues to become stronger. HENMT: COMMON NORMALS: oropharynx normal OTHER: No oral lesions. Neck/C-Spine: COMMON NORMALS: no JVD Resp: COMMON NORMALS: normal respiratory effort and clear to auscultation bilaterally AUSCULTATION: clear to auscultation bilaterally Cardio: COMMON NORMALS: no JVD, regular rhythm, S1 normal heart sound present, S2 normal heart sound present and No murmurs present (Cardio) RHYTHM: regular rhythm HEART SOUNDS: S1 normal heart sound present and S2 normal heart sound present GI: COMMON NORMALS: Normal to inspection, nondistended, normoactive bowel sounds present, Soft to palpation and non-tender PALPATION: Yes Soft to palpation Extremity: COMMON NORMALS: no joint enlargement and no pedal edema Neuro: COMMON NORMALS: moves all extremities SENSORIUM/ORIENTATION: Yes alert Skin: OTHER: Resolving erythema patches/confluent rash under armpits, groin, under pannus. Dark pink, appear to be healing. Chronic bilateral lower extremity dermatitis below knees secondary to stasis, with areas of cracked skin, no weeping. Dry skin, cracks, shallow ulcerations on bilateral feet now moisturized and healing. No erythema. Patches of cornified skin now moisturized Urinary Catheter Management^: Cosme: Cath Placed During This Visit: yes Reason for Continuing Indwelling Catheter: Accurate Measurement of Urinary Output in Critically Ill Patients Urinary Catheter Date of Insertion: 02/21/21 Urinary Catheter Time of Insertion: 20:23 Data : 02/24/21 03:34 02/24/21 03:34 Micro: Microbiology 02/21/21 21:31 Blood Culture - Preliminary Blood Enterococcus faecalis A&P Assessment and plan (1) Bacteremia: Echocardiogram from today appreciated. Some possible thickening of anterior tricuspid leaflet, unable to exclude vegetation on the study. Discussed findings with her, as well as with cardiology. She is agreeable for consultation for HANY. Enterococcus in blood, 1/4 bottles. Follow-up sensitivity. So far no growth on repeat culture 02/23. Repeat culture 02/24. Continue vancomycin. Would suspect skin is a port of entry, due to significant contamination, very dirty on presentation, with maggots on her feet. ESR 55, CRP 61.2. Status: Acute (2) [place] (acute kidney injury): Labs could not be obtained this morning despite multiple attempts. Discussed to attempt this evening if not, will reattempt in the morning. Creatinine very slowly improving, suspect now ATN. Urine output somewhat borderline, but continues to make urine. Last creatinine 02/24 down to 4.7. Continue to monitor urine output, renal function. Monitor oxygenation as is at risk of fluid overload with suboptimal urine output. Cardiomegaly, patchy opacities right cardiophrenic angle and lung basilar scarring, possibly consolidation and/or atelectasis. Possible pneumonia, continue aztreonam, vancomycin. Recent C. difficile colitis, but so far no diarrhea reported. Follow-up renal function. Monitor urine output. Hold off diuretic for now. No obstruction noted on CT abdomen pelvis. Prerenal [place] by urine studies yesterday. Status: Acute (3) UTI (urinary tract infection): E. coli resistant to ampicillin, intermediate Unasyn, resistant to quinolones, tetracycline, Bactrim. No obstructive uropathy noted. Continue aztreonam. Status: Acute (4) Septic shock: Sepsis: Continue antibiotics for bacteremia, urinary tract infection, cellulitis. GNR in urine. Enterococcus 1/4 bottle in blood. Repeat blood culture. Continue aztreonam, vancomycin for bacteremia, PNA, UTI, cellulitis. Conitnue diflucan for possible fungal skin infection. Septic shock resolved. Weaned off pressor. Maintaining blood pressures well. Status: Acute (5) Generalized maculopapular rash: Resolving rash under armpits, groin/abdomen, quite significantly improving/resolving. Benadryl for itching. QT prolongation with hydroxyzine. Recheck EKG. Watch off steroid. Continue Diflucan for possible fungal superinfection. Continue to antibiotics for cellulitis of lower extremities. Resolving rash under armpits, groin, under pannus. Eczematous appearance. Otherwise chronic venous stasis dermatitis bilateral lower extremities, erythema, although unclear whether acute cellulitis is also present. Feet with bilateral skin cracking, dry skin, cornified dry skin patches over areas appearing like shallow ulcerations with small amount of purulence, possibly old/ruptured blisters. No oral lesions. Drug reaction possible as well including possibly a reaction to Lasix with history of sulfa allergy. Added lasix to allergy list as possible culprit. No stigmata of SJS/TEN. Had been started on steroids, continue for now. Monitor symptoms. Benadryl as needed for itching as she does pick at her rashes/wounds. Calamine lotion. Status: Acute (6) Drug allergy: Status: Acute (7) Eczema: Status: Acute (8) Vitamin D deficiency disease: Status: Acute (9) Hyperparathyroidism , secondary, non-renal: Status: Acute (10) Cellulitis: LE cellulitis improving. Continue vancomycin. Benadryl as needed for itching. Status: Acute Qualifiers: Site of cellulitis: other site Qualified Code(s): L03.818 - Cellulitis of other sites (11) Hypothyroidism: Discussed with her TSH elevated at 19.22. She states she had been taking her medications at home. Perhaps Keppra level may help us with some indication whether she is adherent and/or not absorbing her medications. Continue levothyroxine at this time. Follow-up with endocrinology. Status: Acute Qualifiers: Hypothyroidism type: unspecified Qualified Code(s): E03.9 - Hypothyroidism, unspecified Additional A&P Information Possible pneumonia: Hypoxia improving, appears to be close to baseline oxygenation, continue aztreonam, vancomycin. IS. Bradycardia: Resolved. Noted 02/23. Transient. Possibly secondary to electrolyte shifts secondary to changes in renal function. Continue telemetry monitoring. Stopped tizanidine. Stopped hydroxyzine due to QT prolongation. QT prolongation: 02/23. Stopped hydroxyzine. Recheck EKG. Recent C. difficile colitis: So far no further diarrhea. Monitor. Hypocalcemia secondary to vitamin D deficiency and hypomagnesemia Continue calcitriol Hypomagnesemia: Replaced Chronic anemia, hemoglobin stable Patient required multiple transfusions in the past History of alcoholism: Patient is denying recent alcohol intake Attestations Medical Necessity Statement*: Continue admission for assessment and management of bacteremia with additional assessment by HANY, IV antibiotics, improving sepsis, pneumonia, UTI, cellulitis, slowly improving acute kidney injury. Coding Level of Care Code Acute Binding Bench Worker for g Fwd Diagnoses Bacteremia R78.81 [place] (acute kidney injury) N17.9 UTI (urinary tract infection) N39.0 Septic shock A41.9; R65.21 Generalized maculopapular rash R21 Drug allergy Z88.9 Eczema L30.9 Vitamin D deficiency disease E55.9 Hyperparathyroidism , secondary, non-renal E21.1 Cellulitis L03.818 Site of cellulitis: other site Hypothyroidism E03.9 Hypothyroidism type: unspecified
--- NOTE | 2021-02-25 18:42 | ECG_ITS ---
[facility] Test Date: 2021-02-25 Pat Name: Delores Mckeon Department: Room: 103 Gender: Female [employer]: : 1975 Requested By: Herminio Ovalle Order Number: [id number] Reading MD: Ravinder House M.D. Measurements Intervals [place] Rate: 87 P: 32 MO: 153 QRS: 30 QRSD: 92 T: 91 QT: 377 QTc: 455 Interpretive Statements SINUS RHYTHM LOW QRS VOLTAGE IN PRECORDIAL LEADS [QRS DEFLECTION < 1.0 mV IN CHEST LEADS] NONSPECIFIC T-WAVE ABNORMALITY Compared to ECG 02/23/2021 13:29:28 T-wave abnormality now present Sinus bradycardia no longer present Sinus arrhythmia no longer present Prolonged QT interval no longer present Electronically Signed On 02-26-2021 9:51:36 CDT by Ravinder House M.D. [id number]
--- NOTE | 2021-02-25 20:42 | PC.NURSE ---
Bedside report received from Corrie BARRETT. Patient is resting in bed eating [employer]. Assisted patient to bedside commode and changed lines. Patient does not C/O of pain or other needs at this time.
[2021-02-25] MEDS: petrolatum oint Pkt 5 gm 1 APPLIC TOPICAL (21:55)
[2021-02-25 22:47] LABS: Eosinophils # 0.1 10^3/uL (0.0-0.8); Hematocrit 27.3 % (37.0-47.0); Hemoglobin 7.7 g/dL (11.5-15.3); Lymphocytes # 1.5 10^3/uL (0.8-4.8); Lymphocytes % 26.3 %; Mean Corpuscular HGB Conc 28.2 g/dL (30.0-36.0); Mean Corpuscular Hemoglobin 26.6 pg (28.0-34.0); Mean Corpuscular Volume 94.5 fL (81-99); Mean Platelet Volume 11.2 fL (7.4-10.4); Monocytes # 0.4 10^3/uL (0.2-0.9); Monocytes % 6.8 %; Neutrophils # 3.51 10^3/uL (1.8-7.7); Neutrophils % 63.1 %; Nucleated Red Blood Cells % 0 %; Platelet Count 240 10^3/cmm (130-400); Red Blood Count 2.89 10^6/uL (4.1-5.3); Red Cell Distribution Width 19.6 % (12.1-15.1); White Blood Count 5.6 10^3/uL (4.0-10.0)
[2021-02-25 22:58] LABS: Alanine Aminotransferase 6 U/L (0-33); Albumin Level 1.9 g/dL (3.5-5.2); Alkaline Phosphatase 147 IU/L (35-105); Anion Gap 16.9 (5-19); Aspartate Amino Transferase 7 U/L (0-32); Blood Urea Nitrogen 44 mg/dL (6-20); Calcium 7.3 mg/dL (8.5-10.5); Carbon Dioxide 21 mmol/L (22-29); Chloride 106 mmol/L (98-107); Globulin 3.5 g/dL (1.3-4.6); Glomerular Filtration Rate 16.8 mL/min (90-130); Glucose 98 mg/dL (65-115); Magnesium 2.1 mg/dL (1.7-2.3); Osmolality Calculated 301 mOsm/kg (285-295); Potassium 3.9 mmol/L (3.5-5.1); Sodium 140 mmol/L (136-145); Total Bilirubin 0.4 mg/dL (0.15-1.2); Total Protein 5.4 g/dL (6.6-8.7)
--- NOTE | 2021-02-25 23:08 | PC.NURSE ---
Cleansed patients feet and legs with soap and water. Applied Calamine lotion and Vaseline to lower extremities. Patient declined Noemy care at this time.
[2021-02-25 23:22] LABS: Slide Review Slide Review Perform
[2021-02-25 23:52] LABS: Glucose Point of Care 99 mg/dL (70-110)
[2021-02-26] VITALS (35 sets, daily range): BP systolic 95–140; BP diastolic 54–108; PULSE 84–100; RESP 10–32; TEMP 36.4–36.8; O2SAT 81–100
[2021-02-26] MEDS: CLONazepam 0.5 mg Tablet 0.125 MG PO ×2 (04:01→19:53)
[2021-02-26] MEDS: pantoprazole DR 40 mg Tablet PO ×2 (05:33→18:19)
[2021-02-26] MEDS: fluticasone nasal spray 16gm Btl 1 SPRAY INTRANASAL ×2 (05:33→18:19)
[2021-02-26] MEDS: thiamine 100 mg Tablet PO (05:33)
[2021-02-26] MEDS: folic acid 1 mg Tablet PO (05:33)
[2021-02-26] MEDS: levothyroxine 200 mcg Tablet PO (05:33)
[2021-02-26] MEDS: levothyroxine 75 mcg Tablet PO (05:34)
[2021-02-26] MEDS: diphenhydrAMINE 50 mg/mL SDV 1mL 25 MG IVP ×3 (05:34→19:52)
[2021-02-26 06:47] LABS: Glucose Point of Care 88 mg/dL (70-110)
[2021-02-26] MEDS: aztreonam 1,000 MG in sodium chloride 0.9% (plus) 50 ML 100 MG IV ×2 (07:19→19:51)
--- NOTE | 2021-02-26 08:09 | PM.PN ---
Subjective Subjective: Interval history: The patient is feeling okay. Denies any chest pain or chest tightness. Shortness of breath is improving. She underwent a transesophageal echocardiogram at bedside. She was found to have moderate tricuspid regurgitation with mild to moderate mitral regurgitation. There was no vegetations in the valves. No intracardiac masses were noted. Medications: Reviewed: Yes Medication Review Details: Current Medications Acetaminophen (Acetaminophen 325 Mg Tablet) 650 mg PO Q6H PRN PRN Reason: MILD PAIN Calamine (Calamine Lotion 177 Ml Btl) 1 applic TOPICAL TID [facility] Last Admin: 02/25/21 21:56 Dose: 1 applic Documented by: Clonazepam (Clonazepam 0.5 Mg Tablet) 0.125 mg PO BID PRN PRN Reason: anxiety Last Admin: 02/26/21 04:01 Dose: 0.125 mg Documented by: Dextrose (Dextrose 50% Syringe 50 Ml) 25 ml IVP ONCE PRN; Protocol PRN Reason: hypoglycemia protocol Dextrose (Dextrose 50% Syringe 50 Ml) 50 ml IVP PRN PRN; Protocol PRN Reason: hypoglycemia protocol Diphenhydramine HCl (Diphenhydramine 50 Mg/Ml Sdv 1ml) 25 mg IVP Q4H PRN PRN Reason: ITCHING Last Admin: 02/26/21 05:34 Dose: 25 mg Documented by: Emollient Ointment (Petrolatum Oint Pkt 5 Gm) 1 applic TOPICAL TID [facility] Last Admin: 02/25/21 21:55 Dose: 1 applic Documented by: Ergocalciferol (Ergocalciferol (Vitamin D2) 50,000 Unit Capsule) 50,000 unit PO Q7D [facility] Last Admin: 02/22/21 03:32 Dose: 50,000 unit Documented by: Fluconazole (Fluconazole 100 Mg Tablet) 200 mg PO DAILY [facility] Last Admin: 02/25/21 08:42 Dose: 200 mg Documented by: Fluticasone Propionate (Fluticasone Nasal [place] 16gm Btl) 1 spray INTRANASAL BID@0600,1800 [facility] Last Admin: 02/26/21 05:33 Dose: 1 spray Documented by: Folic Acid (Folic Acid 1 Mg Tablet) 1 mg PO DAILY@0600 [facility] Last Admin: 02/26/21 05:33 Dose: 1 mg Documented by: Glucagon (Glucagon 1 Mg/Ml Inj 1 Ml) 1 mg IM ONCE PRN; Protocol PRN Reason: Adult Acute Hypoglycemia Prot. Dextrose (D5w) 500 mls @ 100 mls/hr IV ONCE PRN; Protocol PRN Reason: Adult Acute Hypoglycemia Prot Aztreonam 1,000 mg/ Sodium (Chloride) 50 mls @ 100 mls/hr IV Q12H [facility]; Protocol Last Infusion: 02/26/21 07:59 Dose: Infused Documented by: Vancomycin HCl 750 mg/ Sodium (Chloride) 250 mls @ 250 mls/hr IV Q48H [facility] Last Infusion: 02/24/21 23:23 Dose: Infused Documented by: Sodium Chloride (Sodium Chloride 0.9%) 1,000 mls @ 30 mls/hr IV .Q24H ONE Stop: 02/27/21 13:29 Insulin Aspart (Insulin Aspart 100 Unit/1 Ml) 0 unit SUBCUT WM&BEDTIME [facility]; Protocol Last Admin: 02/26/21 07:23 Dose: Not Given Documented by: Levetiracetam (Levetiracetam 500 Mg Tablet) 250 mg PO BID [facility] Last Admin: 02/25/21 18:50 Dose: 250 mg Documented by: Levothyroxine Sodium (Levothyroxine 200 Mcg Tablet) 200 mcg PO DAILY@0600 [facility] Last Admin: 02/26/21 05:33 Dose: 200 mcg Documented by: Levothyroxine Sodium (Levothyroxine 75 Mcg Tablet) 75 mcg PO DAILY@0600 [facility] Last Admin: 02/26/21 05:34 Dose: 75 mcg Documented by: Magnesium Oxide (Magnesium Oxide 400 Mg Tablet) 400 mg PO BID [facility] Last Admin: 02/25/21 18:50 Dose: 400 mg Documented by: Non-Formulary Medication (Epinephrine [Epipen 2-Tim]) 0.3 mg IM PRN PRN PRN Reason: Allergic Reaction Non-Formulary Medication (Naloxone [Narcan]) 4 mg INTRANASAL PRN PRN PRN Reason: OVERDOSE Oxycodone HCl (Oxycodone 5 Mg Ir Tab/Cap) 5 mg PO Q6H PRN PRN Reason: MODERATE PAIN Last Admin: 02/25/21 21:55 Dose: 5 mg Documented by: Pantoprazole Sodium (Pantoprazole Dr 40 Mg Tablet) 40 mg PO BID@0600,1800 [facility] Last Admin: 02/26/21 05:33 Dose: 40 mg Documented by: Thiamine Mononitrate (Thiamine 100 Mg Tablet) 100 mg PO DAILY@0600 [facility] Last Admin: 02/26/21 05:33 Dose: 100 mg Documented by: Vitals/I&O/Wt Last Vital Signs Temp 97.6 F 02/26/21 03:40 Pulse 89 02/26/21 07:38 Resp 20 H 02/26/21 03:40 BP 121/72 02/26/21 03:40 Pulse Ox 100 02/26/21 07:38 02/25/21 02/26/21 02/26/21 22:59 06:59 14:59 Intake Total 450 / 1220 50 / 50 Output Total 800 / 800 1280 / 2080 Balance -350 / 420 -1280 / -860 50 / 50 Weight last 48 hrs Weight 232 lb 3.2 oz Weight 249 lb Physical Exam Narrative: EXAM NARRATIVE: GENERAL: The patient is alert and oriented times three. Not in any acute distress. HEENT: Mild pallor, icterus or lymphadenopathy.Oral cavity: There are no mucous membrane lesions. NECK: Trachea appears to be central. No masses noted. No JVD or thyromegaly appreciated. RESPIRATORY: Chest is symmetrical. No intercostals muscle retraction or any accessory muscle activation. There is no chest wall tenderness. Breath sounds are heard bilaterally. No rales or rhonchi heard. No evidence of any consolidation. Diminished intensity of breath sounds in the bases. BREASTS: Deferred. HEART: The heart sounds are normal. No S3 or S4. Short systolic murmur in the left sternal border. No diastolic murmurs.. No pericardial rub ABDOMEN: Abdomen obese. Has some vague tenderness in the periumbilical region. No rebound tenderness.. No organomegaly appreciated. Bowel sounds are normally heard. : Deferred. RECTAL: Deferred. LYMPHATIC: No lymphadenopathy noted in the neck . EXTREMITIES: 1+ edema both lower extremities. No cyanosis. MUSCULOSKELETAL: No acute joint deformities or swelling SKIN: Patient has diffuse miliary rashes in the trunk and lower extremities, appears to be fading away NEUROPSYCHIATRIC: The patient is alert and oriented x3. No focal motor deficits. Urinary Catheter Management^: Cosme: Cath Placed During This Visit: yes Reason for Continuing Indwelling Catheter: Accurate Measurement of Urinary Output in Critically Ill Patients Urinary Catheter Date of Insertion: 02/21/21 Urinary Catheter Time of Insertion: 20:23 Data : 02/25/21 22:31 02/25/21 22:31 Other Labs: Laboratory Last Values WBC 5.6 10^3/uL (4.0-10.0) 02/25/21 22: RBC 2.89 10^6/uL (4.1-5.3) L 02/25/21 22:31 Hgb 7.7 g/dL (11.5-15.3) L 02/25/21 22:31 Hct 27.3 % (37.0-47.0) L 02/25/21 22:31 MCV 94.5 fL (81-99) 02/25/21 22:31 MCH 26.6 pg (28.0-34.0) L 02/25/21 22: MCHC 28.2 g/dL (30.0-36.0) L 02/25/21 22: RDW 19.6 % (12.1-15.1) H 02/25/21 22:31 Plt Count 240 10^3/cmm (130-400) 02/25/21 22: MPV 11.2 fL (7.4-10.4) H 02/25/21 22:31 Neut % (Auto) 63.1 % 02/25/21 22: Lymph % (Auto) 26.3 % 02/25/21 22: [place] % (Auto) 6.8 % 02/25/21 22: Eos % (Auto) 2.0 % 02/25/21 22: Baso % (Auto) 0.0 % 02/25/21 22:31 Neut # (Auto) 3.51 10^3/uL (1.8-7.7) 02/25/21 22: Lymph # (Auto) 1.5 10^3/uL (0.8-4.8) 02/25/21 22: [place] # (Auto) 0.4 10^3/uL (0.2-0.9) 02/25/21 22:31 Eos # (Auto) 0.1 10^3/uL (0.0-0.8) 02/25/21 22:31 Baso # (Auto) 0.0 10^3/uL (0.0-0.1) 02/25/21 22:31 Nucleated RBC % (auto) 0 % 02/25/21 22:31 Nucleated RBCs # 0.0 /100WBC 02/25/21 22:31 ESR 55 mm/hr (0-15) H 02/23/21 04:55 Sodium 140 mmol/L (136-145) 02/25/21 22:31 Potassium 3.9 mmol/L (3.5-5.1) 02/25/21 22:31 Chloride 106 mmol/L (98-107) 02/25/21 22:31 Carbon Dioxide 21 mmol/L (22-29) L 02/25/21 22:31 Anion Gap 16.9 (5-19) 02/25/21 22:31 BUN 44 mg/dL (6-20) H 02/25/21 22:31 Creatinine 3.0 mg/dL (0.5-0.9) H 02/25/21 22:31 GFR Calculation 16.8 mL/min (90-130) L 02/25/21 22:31 Glucose 98 mg/dL (65-115) 02/25/21 22:31 POC Glucose 88 mg/dL (70-110) 02/26/21 06:44 Calculated Osmolality 301 mOsm/kg (285-295) H 02/25/21 22:31 Lactic Acid 1.7 mmol/L (0.5-2.2) 02/21/21 19:17 Calcium 7.3 mg/dL (8.5-10.5) L 02/25/21 22:31 Magnesium 2.1 mg/dL (1.7-2.3) 02/25/21 22:31 Total Bilirubin 0.4 mg/dL (0.15-1.2) 02/25/21 22:31 AST 7 U/L (0-32) 02/25/21 22:31 ALT 6 U/L (0-33) 02/25/21 22:31 Alkaline Phosphatase 147 IU/L (35-105) H 02/25/21 22:31 Creatine Kinase 308 U/L (26-192) H 02/21/21 19:17 Troponin T Baseline 56 ng/L (0-10) H 02/21/21 19:17 Troponin T 120 Minute 56.89 ng/L (0-10) H 02/21/21 21:31 Delta Troponin T 0.89 ABS# (0-10) 02/21/21 21:31 C-Reactive Protein 61.2 mg/L (0.0-4.9) H 02/24/21 03:34 NT-Pro-B Natriuret Pep 8092 pg/mL (0-125) H 02/21/21 19:17 Total Protein 5.4 g/dL (6.6-8.7) L 02/25/21 22:31 Albumin 1.9 g/dL (3.5-5.2) L 02/25/21 22:31 Globulin 3.5 g/dL (1.3-4.6) 02/25/21 22:31 Procalcitonin 41.03 ng/mL (0-0.5) H 02/21/21 21:31 TSH 19.22 uIU/mL (0.27-4.20) H 02/23/21 10:30 Urine Color Brown (Yellow) 02/21/21 20:17 Urine Appearance Cloudy (CLEAR) 02/21/21 20:17 Urine pH 5 (5-7) 02/21/21 20:17 Ur Specific [place] 1.015 (1.005-1.030) 02/21/21 20:17 Urine Protein 1+ (Negative) H 02/21/21 20:17 Urine Glucose (UA) Norm (Normal) 02/21/21 20:17 Urine Ketones 1+ (Negative) H 02/21/21 20:17 Urine Blood 2+ (Negative) H 02/21/21 20:17 Urine Nitrate Negative (Negative) 02/21/21 20:17 Urine Bilirubin 1+ (Negative) H 02/21/21 20:17 Urine Urobilinogen 1 mg/dL (Negative) H 02/21/21 20:17 Ur Leukocyte Esterase 2+ (Negative) H 02/21/21 20:17 Urine RBC 0-4 /hpf (0-2) H 02/21/21 20:17 Urine WBC Too numerous to cnt /hpf (0-5) H 02/21/21 20:17 Ur Squamous Epith Cells 0-4 /hpf (0-5) H 02/21/21 20:17 Amorphous Sediment Not Reportable 02/21/21 20:17 Urine Bacteria 4+ /hpf (NONE) H 02/21/21 20:17 Ur Random Urea Nitrogn 221 mg/dL 02/22/21 10:50 Urine Creatinine 177 mg/dL (28-217) 02/22/21 10:50 Urine Opiates Screen Positive ng/mL (Negative) H 02/21/21 20:17 Ur Barbiturates Screen Negative ng/mL (Negative) 02/21/21 20:17 Levetiracetam Cancelled 02/22/21 09:13 Ur Phencyclidine Scrn Negative ng/mL (Negative) 02/21/21 20:17 Ur Amphetamines Screen Negative ng/mL (Negative) 02/21/21 20:17 U Benzodiazepines Scrn Positive ng/mL (Negative) H 02/21/21 20:17 Urine Cocaine Screen Negative ng/mL (Negative) 02/21/21 20:17 U Marijuana (THC) Screen Negative ng/mL (Negative) 02/21/21 20:17 Ethyl Alcohol < 10 mg/dL (0-10) 02/21/21 19:17 Micro: Microbiology 02/21/21 21:31 Blood Culture - Preliminary Blood Enterococcus faecalis A&P Assessment and plan (1) Sepsis: Patient continues remain afebrile. Clinically seems to be improving. Status: Acute Qualifiers: Acute renal failure type: unspecified Sepsis acute organ dysfunction status: with acute organ dysfunction Sepsis type: sepsis due to unspecified organism Severe sepsis acute organ dysfunction type: acute renal failure Severe sepsis shock status: unspecified Qualified Code(s): A41.9 - Sepsis, unspecified organism; R65.20 - Severe sepsis without septic shock; N17.9 - Acute kidney failure, unspecified (2) Bacteremia: No evidence of endocarditis based on the HANY. Most likely bacteremia is from the cellulitis in the foot Status: Acute (3) Acute on chronic diastolic (congestive) heart failure: The renal failure may have precipitated the heart failure. Possibility of underlying coronary ischemia is a consideration. Patient may benefit from a myocardial perfusion imaging, to evaluate for any underlying coronary ischemia. Status: Acute (4) Tricuspid valve regurgitation, secondary: Appears to be moderate based on the transesophageal echocardiogram. May not require any specific intervention at this point. Advised to continue on the current measures. Status: Acute (5) Presence of IVC filter: Seems to be stable with no recurrence of DVT. Status: Chronic (6) Acute renal failure: Management as per nephrology. Status: Acute Qualifiers: Acute renal failure type: with acute tubular necrosis Qualified Code(s): N17.0 - Acute kidney failure with tubular necrosis Additional A&P Information Other problems History of diastolic heart failure COPD exacerbation, seems to be stable Sleep apnea GERD/Ghosh's esophagus History of recurrent cellulitis Seizure disorder Chronic anemia May consider doing a myocardial perfusion imaging, once her clinical status stabilized, to evaluate for any underlying coronary ischemia. Attestations Medical Necessity Statement*: Disposition as per the primary. Coding Level of Care Code Acute Healthcare Insurance Sales Agent for g Fwd Diagnoses Sepsis A41.9; R65.20; N17.9 Acute renal failure type: unspecified Sepsis acute organ dysfunction status: with acute organ dysfunction Sepsis type: sepsis due to unspecified organism Severe sepsis acute organ dysfunction type: acute renal failure Severe sepsis shock status: unspecified Bacteremia R78.81 Acute on chronic diastolic (congestive) heart failure I50.33 Tricuspid valve regurgitation, secondary I07.1 Presence of IVC filter Z95.828 Acute renal failure N17.0 Acute renal failure type: with acute tubular necrosis
--- NOTE | 2021-02-26 08:19 | DCPLANNER ---
Pg 2 of IM updated and reviewed with pt. No questions. Copy provided.
[2021-02-26 08:32] LABS: Glucose Point of Care 71 mg/dL (70-110)
[2021-02-26] MEDS: levETIRAcetam 500 mg Tablet 250 MG PO ×2 (09:06→18:19)
[2021-02-26] MEDS: fluconazole 100 mg Tablet 200 MG PO (09:07)
[2021-02-26] MEDS: magnesium oxide 400 mg tablet PO ×2 (09:07→18:19)
--- NOTE | 2021-02-26 09:43 | PC.NURSE ---
Did not apply Calamine or patrolatum to affected areas at this time due to areas remain covered with medication from last administration
[2021-02-26 09:56] LABS: Glucose Point of Care 82 mg/dL (70-110)
--- NOTE | 2021-02-26 09:57 | PC.NURSE ---
Patients BG checked at this time due to low BG readings on first check and NPO status for future procedure
[2021-02-26 11:21] LABS: Glucose Point of Care 85 mg/dL (70-110)
[2021-02-26] MEDS: vancomycin 750 MG in sodium chloride 0.9% 250 ML 250 MG IV (12:09)
--- NOTE | 2021-02-26 12:36 | PC.CHAP ---
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 export coordinator visit [] Patient/Family/Request visit [] Outpatient visit [XX] Follow-up visit [] Physician referral [] Code/Alert [XX] Routine visit [] Staff referral [] Actively dying [] Patient sleeping [] Family support [] [] Out of room [] Palliative care [] [] Receiving care in room [] Pre-surgical visit [] Trauma [XX] Long length of stay [] ICU visit [] Other: Relational/Emotional Strength [XX] Patient feels connected with others/family/visitors/staff [] Distress [] Loneliness/isolation [] Abandonment Spirituality of Patient [XX] Person of Angy [XX] Attends Hindu of their Angy [XX] Believes in Prayer [XX] Reads Bible or Scientology materials [] There are Spiritual issues to be addressed Graphics Manager Interventions [XX] Prayer [XX] Active listening [XX] Non-anxious presence [] Spiritual/emotional support [] Crisis/trauma care [] Spiritual counseling [] Bereavement support [] Provided bereavement packet [XX] Provided Bible/devotional materials [] Provided toy/stuffed animal, coloring book to patient or family member [] Provided Communion [] Anointing/[place] [] Salvation [XX] Completed spiritual assessment [] Other: Impact on Illness or Injury [] Angry [] Fearful [XX] Anxious [] Often cries [] Exhaustion [] Unable to work [] Unable to attend congregational [] Unable to walk/stand [] Unable to read [] Unable to drive [] Unable to eat/drink [] Unable to sleep [] Unable to be with family [] Patient intubated [] Other: Summary: Graphics Manager met with pt and . They are Christians. Pt has had sepsis, renal failure (near-failure), and lung cancer. Pt has lung bx today. Pt states that lung ca dx was made a few years ago. Pt states that bx is to learn what type. Pt unsure if ca has metastasized. When asked how export coordinator could join pt in prayer, pt stated that her family be okay if she dies. Graphics Manager provided Daily Bread and prayed with the couple. Time spent with patient: 15 mins
--- NOTE | 2021-02-26 13:31 | USCV_ITS ---
Delores Mckeon Age: 45 Gender: F : 1975 Exam Date: 02/26/2021 13:37 Ordering Phys: Ravinder House MD ([email or web address]) Technologist: Daphne Cantu Exam Location: [facility] – [place] Indication: R/o endocarditis, moderately severe TR, positive BC BP: / HR: Rhythm: Sinus Technical Quality: MEASUREMENTS (Male / Female) Normal Values Medications IV propofol administered by the anesthesia service Complications Patient tolerated procedure well. No complication Proc. Components The HANY was performed in the patient room 103.the HANY probe was passed into the posterior pharynx , mid-esophagus, distal esophagus. Because of patient's history of Ghosh's esophagus and gastric ulcers, transgastric which are stenotic FINDINGS Left Ventricle Appeared to be of normal size with no intracavitary masses. Right Ventricle Appear to be normal size no intracavitary masses. Right Atrium No intracavitary masses. Left Atrium No intracavitary masses. Appears mildly dilated. LA Appendage Patient to be of normal size and contractility. Intact interatrial septum with no evidence of any PFO or ASD, based on the color flow Doppler examination and saline contrast injection. IA Septum Mitral Valve Mild-moderate mitral valve regurgitation. 2 regurgitant jets were noted mild to moderate mitral regurgitation. Aortic Valve Trace to mild aortic valve regurgitation. Tricuspid Valve Multiple regurgitant jets were noted. At least moderate tricuspid regurgitation. Pulmonic Valve No masses or vegetations noted Pericardium No pericardial effusion. Aorta Normal aortic root with no evidence of a unstable plaques or lesions. The ascending aorta appeared to be of normal size. No aneurysm CONCLUSIONS This exam was completed on a [employer] Aplio 500 with a PET-512MC Transesophogeal transducer. 1. No intracavitary masses. 2. No masses or vegetations on the valves. 3. Moderate tricuspid regurgitation with multiple regurgitant jets. 4. Mild to moderate mitral regurgitation with two regurgitant jets 5. Trace to mild aortic regurgitation 6. Normal left ventricular size ejection fraction. 7. Normal aortic root with no evidence of aneurysm 8. Mildly dilated left atrium. No previous similar( HANY) studies available for comparison Dr Ravinder House MD [facility] (Electronically Signed) Final Date: 26 February 2021 18:25 S
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
[2021-02-26] MEDS: sodium chloride 0.9% 1,000 ML 30 ML IV (13:57)
--- NOTE | 2021-02-26 14:25 | ANE.PACU2 ---
Inpatient post-anesthesia follow up: Airway intact: Yes Vital signs: Temperature 97.6 F Pulse Rate [Monito r] 105 Pulse Rate 94 Respiratory Rate 22 Blood Pressure [Ri ght Arm] 77/49 Blood Pressure 122/77 Pulse Oximetry 100 Oxygen Delivery Me thod [ Nasal Cannula Current Rate & Del reji] Oxygen Delivery Me thod Nasal Cannula Oxygen Flow Rate [ Current Rate 4 & Delivery] Oxygen Flow Rate 2 Fraction of Inspir ed Oxygen Hydration adequate: Yes Nausea and vomiting: No Pain level: 1 Mental status: Baseline
[2021-02-26] MEDS: petrolatum oint Pkt 5 gm 1 APPLIC TOPICAL (15:16)
--- NOTE | 2021-02-26 15:58 | P.PN_ITS ---
Subjective Subjective: Interval history: Reports she is doing all right today. Abdomen still somewhat bloated. She states she is lactose intolerant. Discussed with her we will add lactulose restriction. Denies chest pain or pressure. States breathing is comfortable. Vitals/I&O/Wt Last Vital Signs Temp 97.6 F 02/26/21 09:49 Pulse 91 02/26/21 14:34 Resp 16 02/26/21 14:34 BP 115/87 02/26/21 14:34 Pulse Ox 87 L 02/26/21 14:34 02/26/21 02/26/21 02/26/21 06:59 14:59 22:59 Intake Total 300 / 300 Output Total 1280 / 2080 Balance -1280 / -860 300 / 300 Weight last 48 hrs Weight 105.324 kg Weight 112.945 kg Physical Exam Const: COMMON NORMALS: no acute distress and alert GENERAL APPEARANCE: cooperative and disheveled NUTRITIONAL APPEARANCE: obese ORIENTATION /CONSCIOUSNESS: Yes awake OTHER: HENMT: COMMON NORMALS: oropharynx normal OTHER: No oral lesions. Neck/C-Spine: COMMON NORMALS: no JVD Resp: COMMON NORMALS: normal respiratory effort and clear to auscultation bilaterally AUSCULTATION: clear to auscultation bilaterally Cardio: COMMON NORMALS: no JVD, regular rhythm, S1 normal heart sound present, S2 normal heart sound present and No murmurs present (Cardio) RHYTHM: regular rhythm HEART SOUNDS: S1 normal heart sound present and S2 normal heart sound present GI: COMMON NORMALS: Normal to inspection, nondistended, normoactive bowel sounds present, Soft to palpation and non-tender PALPATION: Yes Soft to palp ation Extremity: COMMON NORMALS: no joint enlargement and no pedal edema OTHER: Dirt under fingernails. Neuro: COMMON NORMALS: moves all extremities SENSORIUM/ORIENTATION: Yes alert Skin: OTHER: Resolving erythema patches/confluent rash under armpits, groin, under pannus. Dark pink, appear to be healing. Chronic bilateral lower extremity dermatitis below knees secondary to stasis, with areas of cracked skin, no weeping. Dry skin, cracks, shallow ulcerations on bilateral feet now moisturized and healing. No erythema. Patches of cornified skin now moisturized Urinary Catheter Management^: Cosme: Cath Placed During This Visit: yes Reason for Continuing Indwelling Catheter: Accurate Measurement of Urinary Output in Critically Ill Patients Urinary Catheter Date of Insertion: 02/21/21 Urinary Catheter Time of Insertion: 20:23 Data : 02/25/21 22:31 02/25/21 22:31 Micro: Microbiology 02/21/21 21:31 Blood Culture - Preliminary Blood Enterococcus faecalis A&P Assessment and plan (1) Bacteremia: HANY today-no sign of vegetation, perivalvular abscess. Discussed with her, will request midline catheter placement tomorrow so she may complete 2 weeks of IV antibiotics at [facility]. Enterococcus in blood, 1/4 bottles. Follow-up sensitivity. So far no growth on repeat culture 02/23. Repeat culture 02/24. Continue vancomycin. Would suspect skin is a port of entry, due to significant contamination, very dirty on presentation, with maggots on her feet. ESR 55, CRP 61.2. Status: Acute (2) TRENTON (acute kidney injury): Continue to gradually improve. Creatinine is down to 3. Encourage oral nutrition/hydration. Monitor renal function, urine output. Urine output improving. Last creatinine 02/24 down to 4.7. Continue to monitor urine output, renal function. Monitor oxygenation as is at risk of fluid overload with suboptimal urine output. Cardiomegaly, patchy opacities right cardiophrenic angle and lung basilar scar ring, possibly consolidation and/or atelectasis. Recent C. difficile colitis, but so far no diarrhea reported. Follow-up renal function. Monitor urine output. Hold off diuretic for now. No obstruction noted on CT abdomen pelvis. Prerenal TRENTON by urine studies yesterday. Status: Acute (3) Pneumonia: Continue aztreonam, vancomycin. Status: Acute (4) UTI (urinary tract infection): E. coli resistant to ampicillin, intermediate Unasyn, resistant to quinolones, tetracycline, Bactrim. No obstructive uropathy noted. Continue aztreonam. Status: Acute (5) Septic shock: Sepsis: Continue antibiotics for bacteremia, urinary tract infection, cellulitis. GNR in urine. Enterococcus 1/4 bottle in blood. Repeat blood culture so far without growth. Continue aztreonam, vancomycin for bacteremia, PNA, UTI, cellulitis. Conitnue diflucan for possible fungal skin infection. Septic shock resolved. Weaned off pressor. Maintaining blood pressures well. With significant deconditioning, requiring IV antibiotics, preparations are being made for rehabilitation at long term facility after discharge. Status: Acute (6) Generalized maculopapular rash: Almost entirely resolved rash under armpits, groin/abdomen, quite significantly. Benadryl for itching. QT prolongation with hydroxyzine. Recheck EKG better. Watch off steroid. Continue Diflucan for possible fungal superinfection. Continue to antibiotics for cellulitis of lower extremities. Resolved rash under armpits, groin, under pannus. Eczematous appearance. Otherwise chronic venous stasis dermatitis bilateral lower extremities, erythema. Lower extremities look much better. Superimposed cellulitis improving/resolving. Wounds on feet are healing, look much better. Feet with bilateral skin cracking, dry skin, cornified dry skin patches over areas appearing like shallow ulcerations with small amount of purulence, possibly old/ruptured blisters. No oral lesions. Drug reaction possible as well including possibly a reaction to Lasix with history of sulfa allergy. Added lasix to allergy list as possible culprit. No stigmata of SJS/TEN. Had been started on steroids initially, doing well off steroids currently. Monitor symptoms. Benadryl as needed for itching as she does pick at her rashes/wounds. Calamine lotion. Status: Acute (7) Drug allergy: Status: Acute (8) Eczema: Status: Acute (9) Vitamin D deficiency disease: Status: Acute (10) Hyperparathyroidism , secondary, non-renal: Status: Acute (11) Cellulitis: LE cellulitis improving. Continue vancomycin. Benadryl as needed for itching. Status: Acute Qualifiers: Site of cellulitis: other site Qualified Code(s): L03.818 - Cellulitis of other sites (12) Hypothyroidism: Discussed with her TSH elevated at 19.22. She states she had been taking her medications at home. Perhaps Keppra level may help us with some indication whether she is adherent and/or not absorbing her medications. Continue levothyroxine at this time. Follow-up with endocrinology. Status: Acute Qualifiers: Hypothyroidism type: unspecified Qualified Code(s): E03.9 - Hypothyroidism, unspecified Additional A&P Information Bloating: She is lactose intolerant, added lactose restriction to diet. Simethicone as needed. Bradycardia: Resolved. Noted 02/23. Transient. Possibly secondary to electrolyte shifts secondary to changes in renal function. Continue telemetry monitoring. Stopped tizanidine. Stopped hydroxyzine due to QT prolongation. QT prolongation: 02/23. Stopped hydroxyzine. Recheck EKG. Recent C. difficile colitis: So far no further diarrhea. Monitor. Hypocalcemia secondary to vitamin D deficiency and hypomagnesemia Continue calcitriol Hypomagnesemia: Replaced Chronic anemia, hemoglobin stable Patient required multiple transfusions in the past History of alcoholism: Patient is denying recent alcohol intake Attestations Medical Necessity Statement*: Continue admission for assessment management of enterococcal bacteremia, pneumonia, UTI, cellulitis after resolved sepsis, midline catheter insertion, adjustment of antibiotic regimen with continued IV antibiotics after discharge, disposition planning and arrangements. Coding Level of Care Code Acute [employer] for [facility] Fwd Diagnoses Bacteremia R78.81 TR[place] (acute kidney injury) N17.9 Pneumonia J18.9 UTI (urinary tract infection) N39.0 Septic shock A41.9; R65.21 Generalized maculopapular rash R21 Drug allergy Z88.9 Eczema L30.9 Vitamin D deficiency disease E55.9 Hyperparathyroidism , secondary, non-renal E21.1 Cellulitis L03.818 Site of cellulitis: other site Hypothyroidism E03.9 Hypothyroidism type: unspecified
[2021-02-26 18:11] LABS: Glucose Point of Care 85 mg/dL (70-110)
[2021-02-26 20:32] LABS: Glucose Point of Care 135 mg/dL (70-110)
[2021-02-27] VITALS (12 sets, daily range): BP systolic 101–162; BP diastolic 72–87; PULSE 84–101; RESP 16–27; TEMP 36.4–36.6; O2SAT 91–100
--- NOTE | 2021-02-27 | CT_ITS ---
WS: [id number] NONCONTRAST CT RIGHT FOOT TECHNIQUE: Noncontrast CT right foot with coronal and sagittal reformatted images. CLINICAL INFORMATION: POSSIBLE FLUID COLLECTION COMPARISON: None. DLP: [address] scans at [facility] use at least one of these dose optimization techniques: automat ed exposure control; mA and/or kV adjustment per patient size (includes targeted exams where dose is matched to clinical indication); or iterative reconstruction. FINDINGS: Exam is somewhat limited due to patient positioning. Noncontrast CT right foot. Limited examination due to positioning. Osteopenia. Diffuse soft tissue ed beryl lower leg, ankle, and foot. No evidence of drainable abscess or fluid collection. Sclerosis involving the talar dome. No evidence of talar dome collapse. Tiny plantar calcaneal spur. Degenerative arthritis at the talocalcaneal articulation. Normal cuboid. Degenerative arthritis invol ving the midfoot and forefoot. No other significant findings. CT/CT foot RT wo con* [id number] IMPRESSION: No evidence of drainable abscess or fluid collection.
--- NOTE | 2021-02-27 | CT_ITS ---
WS: [id number] NONCONTRAST CT LEFT FOOT TECHNIQUE: Noncontrast CT left foot with coronal and sagittal reformatted images. CLINICAL INFORMATION: POSSIBLE FLUID COLLECTION COMPARISON: None. DLP: [address] scans at [facility] use at least one of these dose optimization techniques: automat ed exposure control; mA and/or kV adjustment per patient size (includes targeted exams where dose is matched to clinical indication); or iterative reconstruction. FINDINGS: Exam is somewhat limited due to positioning. Noncontrast CT left foot, with coronal and sagittal reformatted images. Diffuse soft tissue edema low er leg and ankle and foot. No evidence of drainable abscess or fluid collection. Tiny plantar calcane al spur. Tiny Achilles enthesophyte. Normal talocalcaneal articulation. Normal cuboid. Visualized met atarsals appear normal. Degenerative arthritis the midfoot and forefoot. CT/CT foot LT wo con* [id number] IMPRESSION: No evidence of drainable abscess or fluid collection.
[2021-02-27] MEDS: oxyCODONE 5 mg IR Tab/Cap PO ×2 (01:27→21:58)
[2021-02-27] MEDS: diphenhydrAMINE 50 mg/mL SDV 1mL 25 MG IVP ×4 (01:27→21:33)
--- NOTE | 2021-02-27 05:45 | PC.NURSE ---
Bedside report received from Yumiko BARRETT. Patient is resting in bed with her significant other at bedside. Patient has C/O of itching and affect is depressed. Patient states she does not feel good today. Benadryl administered
[2021-02-27] MEDS: folic acid 1 mg Tablet PO (05:48)
[2021-02-27] MEDS: levothyroxine 200 mcg Tablet PO (05:48)
[2021-02-27] MEDS: levothyroxine 75 mcg Tablet PO (05:48)
[2021-02-27] MEDS: thiamine 100 mg Tablet PO (05:48)
[2021-02-27] MEDS: fluticasone nasal spray 16gm Btl 1 SPRAY INTRANASAL ×2 (05:48→17:49)
[2021-02-27] MEDS: pantoprazole DR 40 mg Tablet PO ×2 (05:48→17:48)
[2021-02-27 06:36] LABS: Glucose Point of Care 81 mg/dL (70-110)
[2021-02-27 07:26] LABS: Basophils % 0.2 %; Eosinophils # 0.8 10^3/uL (0.0-0.8); Eosinophils % 15.3 %; Hemoglobin 8.6 g/dL (11.5-15.3); Lymphocytes # 1.6 10^3/uL (0.8-4.8); Lymphocytes % 29.3 %; Mean Corpuscular HGB Conc 27.7 g/dL (30.0-36.0); Mean Corpuscular Hemoglobin 26.8 pg (28.0-34.0); Mean Corpuscular Volume 96.6 fL (81-99); Mean Platelet Volume 10.8 fL (7.4-10.4); Monocytes # 0.3 10^3/uL (0.2-0.9); Monocytes % 6.1 %; Neutrophils # 2.59 10^3/uL (1.8-7.7); Neutrophils % 47.8 %; Nucleated Red Blood Cells % 0 %; Platelet Count 334 10^3/cmm (130-400); Red Blood Count 3.21 10^6/uL (4.1-5.3); Red Cell Distribution Width 19.3 % (12.1-15.1); White Blood Count 5.4 10^3/uL (4.0-10.0)
[2021-02-27] MEDS: levETIRAcetam 500 mg Tablet 250 MG PO ×2 (07:38→17:18)
[2021-02-27] MEDS: magnesium oxide 400 mg tablet PO ×2 (07:38→17:18)
[2021-02-27] MEDS: fluconazole 100 mg Tablet 200 MG PO (07:38)
[2021-02-27 07:44] LABS: Alanine Aminotransferase 6 U/L (0-33); Albumin Level 1.9 g/dL (3.5-5.2); Alkaline Phosphatase 114 IU/L (35-105); Blood Urea Nitrogen 27 mg/dL (6-20); Calcium 7.1 mg/dL (8.5-10.5); Carbon Dioxide 30 mmol/L (22-29); Chloride 110 mmol/L (98-107); Globulin 3.1 g/dL (1.3-4.6); Glomerular Filtration Rate 48.4 mL/min (90-130); Glucose 81 mg/dL (65-115); Osmolality Calculated 306 mOsm/kg (285-295); Sodium 146 mmol/L (136-145); Total Bilirubin 0.3 mg/dL (0.15-1.2)
[2021-02-27 07:45] LABS: Aspartate Amino Transferase 9 U/L (0-32)
--- NOTE | 2021-02-27 09:03 | PC.NURSE ---
pt wants bath tonight
[2021-02-27 11:00] LABS: Glucose Point of Care 108 mg/dL (70-110)
--- NOTE | 2021-02-27 11:21 | P.PN_ITS ---
Subjective Subjective: Interval history: Hospital course appreciated. Denies any nausea vomiting, headache. Today morning seen around PICC line placement. States itching is better but still having the same. Complaining of pain in bilateral heel on touch. Patient does not have any decubitus ulcer on examination but does have small superficial skin cuts. Discussed again that at this point possible deconditioning and recurrent admissions because of noncompliance in the past and current admission will not get it is necessary that patient goes to SNF for further rehabitation. Vitals/I&O/Wt Last Vital Signs Temp 97.9 F 02/27/21 10:34 Pulse 94 02/27/21 10:34 Resp 25 H 02/27/21 10:34 BP 101/72 02/27/21 10:34 Pulse Ox 100 02/27/21 10:34 02/26/21 02/27/21 02/27/21 22:59 06:59 14:59 Intake Total 490 / 790 200 / 990 Output Total 1550 / 1550 Balance 490 / 790 -1350 / -560 Weight last 48 hrs Weight 108.409 kg Weight 105.324 kg Physical Exam Const: COMMON NORMALS: no acute distress and alert GENERAL APPEARANCE: cooperative and disheveled NUTRITIONAL APPEARANCE: obese ORIENTATION/CONSCIOUSNESS: Yes awake OTHER: HENMT: COMMON NORMALS: oropharynx normal OTHER: No oral lesions. Neck/C-Spine: COMMON NORMALS: no JVD Resp: COMMON NORMALS: normal respiratory effort and clear to auscultation bilaterally AUSCULTATION: clear to auscultation bilaterally Cardio: COMMON NORMALS: no JVD, regular rhythm, S1 normal heart sound present, S2 normal heart sound present and No murmurs present (Cardio) RHYTHM: regular rhythm HEART SOUNDS: S1 normal heart sound present and S2 normal heart sound present GI: COMMON NORMALS: Normal to inspection, nondistended, normoactive bowel sounds present, Soft to palpation and non-tender PALPATION: Yes Soft to palpation Extremity: COMMON NORMALS: no joint enlargement and no pedal edema OTHER: Dirt under fingernails. Neuro: COMMON NORMALS: moves all extremities SENSORIUM/ORIENTATION: Yes alert Skin: OTHER: Resolving erythema patches/confluent rash under armpits, groin, under pannus. Dark pink, appear to be healing. Chronic bilateral lower extremity dermatitis below knees secondary to stasis, with areas of cracked skin, no weeping. Dry skin, cracks, shallow ulcerations on bilateral feet now moisturized and hea ling. No erythema. Patches of cornified skin now moisturized Urinary Catheter Management^: Cosme: Cath Placed During This Visit: yes Reason for Continuing Indwelling Catheter: Acute Urinary Retention or Obs truction Urinary Catheter Date of Insertion: 02/21/21 Urinary Catheter Time of Insertion: 20:23 Data : 02/27/21 07:10 02/27/21 07:10 Micro: Microbiology 02/21/21 19:17 Blood Culture - Final Blood NO GROWTH AFTER 5 DAYS A&P Assessment and plan (1) Bacteremia: Status: Acute (2) Pneumonia: Continue aztreonam, vancomycin. Oxygen limitation keeping saturation over 90%. Status: Acute (3) UTI (urinary tract infection): E. coli resistant to ampicillin, intermediate Unasyn, resistant to quinolones, tetracycline, Bactrim. No obstructive uropathy noted. Continue aztreonam. Status: Acute (4) TRENT[place] (acute kidney injury): Status: Acute (5) Generalized maculopapular rash: Almost entirely resolved rash under armpits, groin/abdomen, quite significantly. Benadryl for itching. QT prolongation with hydroxyzine. Recheck EKG better. Watch off steroid. Continue Diflucan for possible fungal superinfection to finish a 7-day course. Continue to antibiotics for cellulitis of lower extremities. Resolved rash under armpits, groin, under pannus. Eczematous appearance. Otherwise chronic venous stasis dermatitis bilateral lower extremities, erythema. Lower extremities look much better. Superimposed cellulitis improving/resolving. Wounds on feet are healing, look much better. Drug reaction possible as well including possibly a reaction to Lasix with history of sulfa allergy. Added lasix to allergy list as possible culprit. No stigmata of SJS/TEN. Had been started on steroids initially, doing well off steroids currently. Monitor symptoms. Benadryl as needed for itching as she does pick at her rashes/wounds. Calamine lotion. Status: Acute (6) Eczema: Status: Acute (7) Vitamin D deficiency disease: Status: Acute (8) Hyperparathyroidism , secondary, non-renal: Status: Acute (9) Cellulitis: LE cellulitis improving. Continue vancomycin. Benadryl as needed for itching. Status: Acute Qualifiers: Site of cellulitis: other site Qualified Code(s): L03.818 - Cellulitis of other sites (10) Hypothyroidism: Discussed with her TSH elevated at 19.22. She states she had been taking her medications at home. Perhaps Keppra level may help us with some indication whether she is adherent and/or not absorbing her medications. Continue levothyroxine at this time. Follow-up with endocrinology. Status: Acute Qualifiers: Hypothyroidism type: unspecified Qualified Code(s): E03.9 - Hypothyroidism, unspecified (11) Septic shock: Sepsis: Continue antibiotics for bacteremia, urinary tract infection, cellulitis. GNR in urine. Enterococcus 1/4 bottle in blood. Repeat blood culture so far without growth. Continue aztreonam, vancomycin for bacteremia, PNA, UTI, cellulitis. Conitnue diflucan for possible fungal skin infection. Septic shock resolved. Weaned off pressor. Maintaining blood pressures well. With significant deconditioning, requiring IV antibiotics, preparations are being made for rehabilitation at long-term facility after discharge. Status: Acute (12) Drug allergy: Status: Acute Additional A&P Information Enterococcus bacteremia: HANY negative for vegetation. Most likely source of infection is to port of entry from skin. Continue vancomycin as per culture results. Patient will require 14 days of IV antibiotic course from last positive blood culture. PICC line in place. Sepsis: Septic shock resolved: Likely secondary to a combination of pneumonia and UTI. DC Cosme catheter. Continue with aztreonam to finish a 7-day course for complicated UTI. Patient has a history of E. coli in the past. Same bacteria growing now. History of C. difficile colitis in the past. Most recent 1 week ago. As patient will be on antibiotics for at least 10 more days will start patient on oral vancomycin 125 mg 4 times daily. TR[place]ON: Most likely secondary to sepsis. Creatinine trending down with 1.2 today. Medical reconstruction done for nephrotoxic drugs. Follow-up urine output. Hypernatremia: Patient seems mildly dehydrated. Continue to hold off on diuretics. Start on half NS at 50 cc/h. Will monitor for fluid overload. Bilateral foot pain: Most likely secondary neuropathy. Start patient gabapentin. Get bilateral foot CT scans to rule out fluid collection, Charcot's. Anemia: Hemoglobin 8.6. Check iron panel, vitamin B12, folate levels. Start on IV iron supplementation accordingly. Check stool for occult blood. We will continue to monitor hemoglobin daily. History of pulmonary embolism: On oxygen supplementation right now. Not on ant icoagulation. Has DVT filter. Post DVT. Filter developed more pulmonary embolism. Will monitor hemoglobin and check stool for occult blood. If positive will consult surgery otherwise will start patient on anticoagulation. Bloating: She is lactose intolerant, added lactose restriction to diet. S imethicone as needed. Bradycardia: Resolved. Noted 02/23. Transient. Possibly secondary to electro lyte shifts secondary to changes in renal function. Continue telemetry monitoring. Stopped tizanidine. Stopped hydroxyzine due to QT prolongation. QT prolongation: 02/23. Stopped hydroxyzine. Recheck EKG. Hypocalcemia secondary to vitamin D deficiency and hypomagnesemia Continue calcitriol Hypomagnesemia: Replaced History of alcoholism: Patient is denying recent alcohol intake Discharge planning: Most likely patient requires discharge to SNF for further rehabitation. PT/OT evaluation. Full code. Plan for DVT prophylaxis. Carb consistent lactose intolerant diet. Attestations Medical Necessity Statement*: Requires further hospitalization for management of enterococcal bacteremia, sepsis, resolving TR[place]ON, anemia while safe discharge planning is sought. Time Spent in Patient Care: Greater than 35 minutes (>than 50% of time spent in counselling and/or direct pt care on unit) . Coding Level of Care Code Acute [employer] Technician for [facility] Fwd Diagnoses Bacteremia R78.81 Pneumonia J18.9 UTI (urinary tract infection) N39.0 [place] (acute kidney injury) N17.9 Generalized maculopapular rash R21 Eczema L30.9 Vitamin D deficiency disease E55.9 Hyperparathyroidism , secondary, non-renal E21.1 Cellulitis L03.818 Site of cellulitis: other site Hypothyroidism E03.9 Hypothyroidism type: unspecified Septic shock A41.9; R65.21 Drug allergy Z88.9
--- NOTE | 2021-02-27 11:26 | XRR_ITS ---
PROCEDURE INFORMATION: Exam: XR Chest Exam date and time: 02/27/2021 11:26 AM Age: 45 years old Clinical indication: Device placement; Picc; Additional info: Post picc line insertion TECHNIQUE: Imaging protocol: XR of the chest. Views: 1 view. COMPARISON: CR XR chest 1V [id number] 02/21/2021 7:27 PM FINDINGS: Tubes, catheters and devices: A right arm PICC is present with the tip projecting on the right innominate vein. Lungs: Unremarkable. No consolidation. Pleural spaces: Unremarkable. No pleural effusion. No pneumothorax. Heart/Mediastinum: The heart is not enlarged. There is a large hiatal hernia. Bones/joints: Unremarkable. XR/XR chest 1V portable [id number] IMPRESSION: 1. The tip of the right arm PICC projects near the origin of the right innominate vein. 2. Large hiatal hernia.
[2021-02-27 11:54] LABS: C Reactive Protein 11.5 mg/L (0.0-4.9); Ferritin 51 ng/mL (15-150); Iron 17 ug/dL (37-145); Magnesium 1.6 mg/dL (1.7-2.3); Phosphorus 4.1 mg/dL (2.5-4.5)
--- NOTE | 2021-02-27 11:55 | PC.NURSE ---
PICC RIGHT arm ready for use.
[2021-02-27 11:57] LABS: Percent Saturation 8.9 % (20-50); Total Iron Binding Capacity 191 mcg/dl; Unsaturated Iron Binding 174 ug/dL (112-347)
[2021-02-27 12:08] LABS: Erythrocyte Sedimentation Rate 36 mm/hr (0-15)
[2021-02-27] MEDS: aztreonam 1,000 MG in sodium chloride 0.9% (plus) 50 ML 100 MG IV (12:20)
[2021-02-27] MEDS: sodium chloride 0.45% 1,000 ML 50 ML IV (12:21)
[2021-02-27 12:28] LABS: Vitamin B12 1379 pg/mL (232-1245)
--- NOTE | 2021-02-27 14:03 | PC.NURSE ---
pt refuses to sit in chair does not want out of bed
[2021-02-27] MEDS: gabapentin 100 mg Capsule 200 MG PO ×2 (14:27→21:31)
[2021-02-27] MEDS: vancomycin 750 MG in sodium chloride 0.9% 250 ML 250 MG IV (14:29)
--- NOTE | 2021-02-27 15:28 | PC.NUTR ---
Nutrition reassessment: Will discontinue morrow icy at this time as average po intakes have improved slightly since last review. Recommend to provide pt preferences as appropriate within dietary guidelines and encourage pt to make healthy meal and snack choices to promote glucose control. Noted that nutrition education r/t DM and wound healing was provided by nursing on 02/25/21 per chart review. See RD assessment for further details.
[2021-02-27 15:48] LABS: Levetiracetam Keppra 8.7 mcg/mL
[2021-02-27] MEDS: CLONazepam 0.5 mg Tablet 0.125 MG PO (16:10)
[2021-02-27] MEDS: magnesium sulfate premix 2 GM/50 ML PIGGYBACK IV (16:16)
[2021-02-27 16:33] LABS: Glucose Point of Care 105 mg/dL (70-110)
[2021-02-27] MEDS: iron sucrose 200 MG in sodium chloride 0.9% (100 ml) 100 ML 220 MG IV (17:19)
[2021-02-27] MEDS: heparin 5,000 unit/mL INJ 1 mL 5000 UNIT SUBCUT (18:12)
[2021-02-27 20:35] LABS: Glucose Point of Care 108 mg/dL (70-110)
[2021-02-28] VITALS (12 sets, daily range): BP systolic 108–126; BP diastolic 62–84; PULSE 90–101; RESP 16–29; TEMP 36.4–37.1; O2SAT 88–100
[2021-02-28] MEDS: aztreonam 1,000 MG in sodium chloride 0.9% (plus) 50 ML 100 MG IV ×2 (00:47→13:39)
[2021-02-28] MEDS: diphenhydrAMINE 50 mg/mL SDV 1mL 25 MG IVP ×5 (02:06→22:49)
[2021-02-28] MEDS: heparin 5,000 unit/mL INJ 1 mL 5000 UNIT SUBCUT ×3 (02:06→18:39)
[2021-02-28] MEDS: oxyCODONE 5 mg IR Tab/Cap PO ×3 (05:16→20:26)
[2021-02-28] MEDS: folic acid 1 mg Tablet PO (05:16)
[2021-02-28] MEDS: pantoprazole DR 40 mg Tablet PO ×2 (05:16→18:39)
[2021-02-28] MEDS: fluticasone nasal spray 16gm Btl 1 SPRAY INTRANASAL ×2 (05:16→18:39)
[2021-02-28] MEDS: thiamine 100 mg Tablet PO (05:16)
[2021-02-28] MEDS: levothyroxine 200 mcg Tablet PO (05:17)
[2021-02-28] MEDS: levothyroxine 75 mcg Tablet PO (05:17)
[2021-02-28 05:22] LABS: Basophils % 0.3 %; Eosinophils # 0.9 10^3/uL (0.0-0.8); Eosinophils % 15.5 %; Hematocrit 27.9 % (37.0-47.0); Hemoglobin 7.7 g/dL (11.5-15.3); Lymphocytes # 1.5 10^3/uL (0.8-4.8); Lymphocytes % 25.5 %; Mean Corpuscular HGB Conc 27.6 g/dL (30.0-36.0); Mean Corpuscular Hemoglobin 26.5 pg (28.0-34.0); Mean Corpuscular Volume 95.9 fL (81-99); Mean Platelet Volume 10.2 fL (7.4-10.4); Monocytes # 0.4 10^3/uL (0.2-0.9); Neutrophils % 51.9 %; Nucleated Red Blood Cells % 0 %; Platelet Count 282 10^3/cmm (130-400); Red Blood Count 2.91 10^6/uL (4.1-5.3); Red Cell Distribution Width 19.4 % (12.1-15.1)
[2021-02-28 05:40] LABS: Alanine Aminotransferase < 5 U/L (0-33); Alkaline Phosphatase 98 IU/L (35-105); Anion Gap 8.2 (5-19); Aspartate Amino Transferase 7 U/L (0-32); Blood Urea Nitrogen 17 mg/dL (6-20); Carbon Dioxide 31 mmol/L (22-29); Chloride 107 mmol/L (98-107); Globulin 2.8 g/dL (1.3-4.6); Glomerular Filtration Rate 77.2 mL/min (90-130); Glucose 68 mg/dL (65-115); Magnesium 1.6 mg/dL (1.7-2.3); Osmolality Calculated 296 mOsm/kg (285-295); Phosphorus 3.3 mg/dL (2.5-4.5); Potassium 3.2 mmol/L (3.5-5.1); Sodium 143 mmol/L (136-145); Total Bilirubin 0.3 mg/dL (0.15-1.2); Total Protein 4.8 g/dL (6.6-8.7)
[2021-02-28 05:54] LABS: Folate Level 6.8 ng/mL (4.8-37.3)
[2021-02-28 06:25] LABS: Glucose Point of Care 82 mg/dL (70-110)
--- NOTE | 2021-02-28 09:15 | P.PN_ITS ---
Subjective Subjective: Interval history: No problems overnight. Denies any nausea vomiting, headache. Lying comfortably in bed. States itching is stable. Vitals/I&O/Wt Last Vital Signs Temp 98.7 F 02/28/21 07:26 Pulse 99 02/28/21 07:26 Resp 20 H 02/28/21 07:26 BP 108/68 02/28/21 07:26 Pulse Ox 100 02/28/21 07:26 02/27/21 02/28/21 02/28/21 22:59 06:59 14:59 Intake Total 1650 / 1700 1741 / 3441 Output Total 100 / 550 250 / 800 Balance 1550 / 1150 1491 / 2641 Weight last 48 hrs Weight 110.132 kg Weight 108.409 kg Physical Exam Const: COMMON NORMALS: no acute distress and alert GENERAL APPEARANCE: co operative and disheveled NUTRITIONAL APPEARANCE: obese SORAYA ENTATION/CONSCIOUSNESS: Yes awake OTHER: HENMT: COMMON NORMALS: oropharynx normal OTHER: No oral lesions. Neck/C-Spine: COMMON NORMALS: no JVD Resp: COMMON NORMALS: normal respiratory effort and clear to auscultation bilaterally AUSCULTATION: clear to auscultation bilaterally Cardio: COMMON NORMALS: no JVD, regular rhythm, S1 normal heart sound present, S2 normal heart sound present and No murmurs present (Cardio) RHYTHM: regular rhythm HEART SOUNDS: S1 normal heart sound present and S2 normal heart sound present GI: COMMON NORMALS: Normal to inspection, nondistended, normoactive bowel sounds present, Soft to palpation and non-tender PALPATION: Yes Soft to palpation Extremity: COMMON NORMALS: no joint enlargement and no pedal edema OTHER: Dirt under fingernails. Neuro: COMMON NORMALS: moves all extremities SENSORIUM/ORIENTATION: Yes alert Skin: OTHER: Resolving erythema patches/confluent rash under armpits, groin, under pannus. Dark pink, appear to be healing. Chronic bilateral lower extremity dermatitis below knees secondary to stasis, with areas of cracked skin, no weeping. Dry skin, cracks, shallow ulcerations on bilateral feet now moisturized and healing. No erythema. Patches of cornified skin now moisturized Urinary Catheter Management^: Cosme: Cath Placed During This Visit: yes, but has since been removed by the nurse Reason for Continuing Indwelling Catheter: Decision to DC Catheter Urinary Catheter Date of Insertion: 02/21/21 Urinary Catheter Time of Insertion: 20:23 Date Urinary Catheter Removed: 02/27/21 Time Urinary Catheter Discontinued: 11:00 Data : 02/28/21 04:31 02/28/21 04:31 Micro: Microbiology 02/21/21 21:31 Blood Culture - Final Blood Enterococcus faecalis A&P Assessment and plan (1) Bacteremia: Status: Acute (2) Pneumonia: Continue aztreonam, vancomycin. Oxygen limitation keeping saturation over 90%. Status: Acute (3) UTI (urinary tract infection): E. coli resistant to ampicillin, intermediate Unasyn, resistant to quinolones, tetracycline, Bactrim. No obstructive uropathy noted. Continue aztreonam. Status: Acute (4) TRENTON (acute kidney injury): Status: Acute (5) Generalized maculopapular rash: Almost entirely resolved rash under armpits, groin/abdomen, quite significantly. Benadryl for itching. QT prolongation with hydroxyzine. Recheck EKG better. Watch off steroid. Continue Diflucan for possible fungal superinfection to finish a 10-day course. Continue to antibiotics for cellulitis of lower extremities. Resolved rash under armpits, groin, under pannus. Eczematous appearance. Otherwise chronic venous stasis dermatitis bilateral lower extremities, erythema. Lower extremities look much better. Superimposed cellulitis improving/resolving. Wounds on feet are healing, look much better. Drug reaction possible as well including possibly a reaction to Lasix with history of sulfa allergy. Added lasix to allergy list as possible culprit. No stigmata of SJS/TEN. Had been started on steroids initially, doing well off steroids currently. Monitor symptoms. Benadryl as needed for itching as she does pick at her rashes/wounds. Calamine lotion. Status: Acute (6) Eczema: Status: Acute (7) Vitamin D deficiency disease: Status: Acute (8) Hyperparathyroidism , secondary, non-renal: Status: Acute (9) Cellulitis: LE cellulitis improving. Continue vancomycin. Benadryl as needed for itching. Status: Acute Qualifiers: Site of cellulitis: other site Qualified Code(s): L03.818 - Cellulitis of other sites (10) Hypothyroidism: Discussed with her TSH elevated at 19.22. She states she had been taking her medications at home. Perhaps [facility] reagan may help us with some indication whether she is adherent and/or not absorbing her medications. Continue levothyroxine at this time. Follow-up with endocrinology. Status: Acute Qualifiers: Hypothyroidism type: unspecified Qualified Code(s): E03.9 - Hypothyroidism, unspecified (11) Septic shock: Status: Acute (12) Drug allergy: Status: Acute Additional A&P Information Enterococcus bacteremia: HANY negative for vegetation. Most likely source of infection is to port of entry from skin. Continue vancomycin as per culture results. Patient will require 14 days of IV antibiotic course from last positive blood culture. PICC line in place. Sepsis: Septic shock resolved: Likely secondary to a combination of pneumonia and UTI. DC Cosme catheter. Continue with aztreonam to finish a 7-day course for complicated UTI with last dose on March 01. Patient has a history of E. coli in the past. Same bacteria growing now. Cosme removed on February 27. History of C. difficile colitis in the past. Most recent 1 week ago. As patient will be on antibiotics for at least 10 more days will start patient on oral vancomycin 125 mg 4 times daily I will continue antibiotics for 7 days after stopping IV antibiotics. TRENTON: Resolved. Most likely secondary to sepsis. Creatinine trending down with 1.2 today. Medical reconstruction done for nephrotoxic drugs. Follow-up urine output. Hypernatremia: Resolved. Patient seems mildly dehydrated. Continue to hold off on diuretics. Start on half NS at 50 cc/h. Will monitor for fluid overload. Bilateral foot pain: Most likely secondary neuropathy. Continue gabapentin. CT foot results appreciated. Anemia: Baseline seems to be from 7.5-8.6. Hemoglobin at baseline. Severe iron deficiency anemia. Vitamin B12, folate levels normal. Check stool for occult blood. We will continue to monitor hemoglobin daily. History of pulmonary embolism: On oxygen supplementation right now. Not on anticoagulation. Has DVT filter. Post DVT. Filter developed more pulmonary embolism. Will monitor hemoglobin and check stool for occult blood. If positive will consult surgery otherwise will start patient on anticoagulation. Bloating: She is lactose intolerant, added lactose restriction to diet. Simethicone as needed. Bradycardia: Resolved. Noted 02/23. Transient. Possibly secondary to electrolyte shifts secondary to changes in renal function. Continue telemetry monitoring. Stopped tizanidine. Stopped hydroxyzine due to QT prolongation. QT prolongation: 02/23. Stopped hydroxyzine. Recheck EKG. Hypocalcemia secondary to vitamin D deficiency and hypomagnesemia Continue calcitriol Hypomagnesemia: Replaced History of alcoholism: Patient is denying recent alcohol intake Discharge planning: Most likely patient requires discharge to SNF for further rehabitation. PT/OT evaluation. Full code. Heparin for DVT prophylaxis. Carb consistent lactose intolerant diet. Bowel regimen. Attestations Medical Necessity Statement*: Requires further hospitalization for management of Enterococcus bacteremia, resolving TR[place]ON, history of C. difficile while safe discharge planning is sought. Time Spent in Patient Care: Greater than 35 minutes (>than 50% of time spent in counselling and/or direct pt care on unit) . Coding Level of Care Code Acute Surface Water Manager for [facility] Fwd Exam Comprehensive Diagnoses Bacteremia R78.81 Pneumonia J18.9 UTI (urinary tract infection) N39.0 [place] (acute kidney injury) N17.9 Generalized maculopapular rash R21 Eczema L30.9 Vitamin D deficiency disease E55.9 Hyperparathyroidism , secondary, non-renal E21.1 Cellulitis L03.818 Site of cellulitis: other site Hypothyroidism E03.9 Hypothyroidism type: unspecified Septic shock A41.9; R65.21 Drug allergy Z88.9
[2021-02-28] MEDS: fluconazole 100 mg Tablet 200 MG PO (09:57)
[2021-02-28] MEDS: gabapentin 100 mg Capsule 200 MG PO ×3 (09:58→20:12)
[2021-02-28] MEDS: levETIRAcetam 500 mg Tablet 250 MG PO ×2 (09:58→18:39)
[2021-02-28] MEDS: magnesium oxide 400 mg tablet PO ×2 (09:58→18:39)
[2021-02-28 11:15] LABS: Glucose Point of Care 92 mg/dL (70-110)
[2021-02-28 12:18] LABS: Vancomycin Trough 12.6 ug/mL (10-15)
[2021-02-28] MEDS: vancomycin 750 MG in sodium chloride 0.9% 250 ML 250 MG IV (13:14)
[2021-02-28 16:20] LABS: Glucose Point of Care 90 mg/dL (70-110)
[2021-02-28] MEDS: iron sucrose 200 MG in sodium chloride 0.9% (100 ml) 100 ML 220 MG IV (16:30)
[2021-02-28] MEDS: petrolatum oint Pkt 5 gm 1 APPLIC TOPICAL (20:12)
[2021-02-28 20:45] LABS: Glucose Point of Care 100 mg/dL (70-110)
[2021-03-01] VITALS (12 sets, daily range): BP systolic 106–140; BP diastolic 58–83; PULSE 84–107; RESP 16–26; TEMP 36.6; O2SAT 92–98
[2021-03-01] MEDS: aztreonam 1,000 MG in sodium chloride 0.9% (plus) 50 ML 100 MG IV (01:15)
[2021-03-01] MEDS: heparin 5,000 unit/mL INJ 1 mL 5000 UNIT SUBCUT (01:16)
[2021-03-01] MEDS: oxyCODONE 5 mg IR Tab/Cap PO ×2 (03:03→23:31)
[2021-03-01] MEDS: diphenhydrAMINE 50 mg/mL SDV 1mL 25 MG IVP (03:54)
[2021-03-01 05:32] LABS: Basophils % 0.4 %; Eosinophils # 1.1 10^3/uL (0.0-0.8); Hematocrit 31.7 % (37.0-47.0); Hemoglobin 8.6 g/dL (11.5-15.3); Lymphocytes # 1.9 10^3/uL (0.8-4.8); Mean Corpuscular HGB Conc 27.1 g/dL (30.0-36.0); Mean Corpuscular Hemoglobin 26.5 pg (28.0-34.0); Mean Corpuscular Volume 97.8 fL (81-99); Mean Platelet Volume 10.3 fL (7.4-10.4); Monocytes # 0.6 10^3/uL (0.2-0.9); Monocytes % 7.7 %; Neutrophils # 3.55 10^3/uL (1.8-7.7); Neutrophils % 50.1 %; Nucleated Red Blood Cells % 0 %; Platelet Count 380 10^3/cmm (130-400); Red Blood Count 3.24 10^6/uL (4.1-5.3); Red Cell Distribution Width 19.1 % (12.1-15.1); White Blood Count 7.1 10^3/uL (4.0-10.0)
[2021-03-01 05:50] LABS: Alanine Aminotransferase 7 U/L (0-33); Albumin Level 2.4 g/dL (3.5-5.2); Alkaline Phosphatase 114 IU/L (35-105); Anion Gap 11.5 (5-19); Aspartate Amino Transferase 8 U/L (0-32); Blood Urea Nitrogen 9 mg/dL (6-20); Calcium 7.4 mg/dL (8.5-10.5); Carbon Dioxide 30 mmol/L (22-29); Chloride 106 mmol/L (98-107); Globulin 3.1 g/dL (1.3-4.6); Glomerular Filtration Rate 90.1 mL/min (90-130); Glucose 72 mg/dL (65-115); Osmolality Calculated 295 mOsm/kg (285-295); Potassium 3.5 mmol/L (3.5-5.1); Sodium 144 mmol/L (136-145); Total Bilirubin 0.3 mg/dL (0.15-1.2); Total Protein 5.5 g/dL (6.6-8.7)
[2021-03-01] MEDS: levothyroxine 200 mcg Tablet PO (06:26)
[2021-03-01] MEDS: levothyroxine 75 mcg Tablet PO (06:26)
[2021-03-01] MEDS: folic acid 1 mg Tablet PO (06:26)
[2021-03-01] MEDS: pantoprazole DR 40 mg Tablet PO ×2 (06:26→18:17)
[2021-03-01] MEDS: thiamine 100 mg Tablet PO (06:26)
[2021-03-01] MEDS: fluticasone nasal spray 16gm Btl 1 SPRAY INTRANASAL (06:27)
[2021-03-01 06:43] LABS: Glucose Point of Care 87 mg/dL (70-110)
[2021-03-01] MEDS: CLONazepam 0.5 mg Tablet 0.125 MG PO ×2 (09:23→18:16)
[2021-03-01] MEDS: fluconazole 100 mg Tablet 200 MG PO (09:23)
[2021-03-01] MEDS: diphenhydrAMINE 25 mg Capsule PO ×3 (09:23→21:16)
[2021-03-01] MEDS: magnesium oxide 400 mg tablet PO ×2 (09:24→18:16)
[2021-03-01] MEDS: gabapentin 100 mg Capsule 200 MG PO ×3 (09:24→21:05)
[2021-03-01] MEDS: levETIRAcetam 500 mg Tablet 250 MG PO ×2 (09:25→18:16)
[2021-03-01] MEDS: petrolatum oint Pkt 5 gm 1 APPLIC TOPICAL ×3 (09:26→22:42)
--- NOTE | 2021-03-01 09:30 | PC.CHAP ---
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 administration intern visit [] Patient/Family/Request visit [] Outpatient visit [] Follow-up visit [] Physician referral [] Code/Alert [x] Routine visit [] Staff referral [] Actively dying [] Patient sleeping [] Family support [] [] Out of room [] Palliative care [] [] Receiving care in room [] Pre-surgical visit [] Trauma [] Long length of stay [] ICU visit [] Other: Relational/Emotional Strength [] Patient feels connected with others/family/visitors/staff [] Distress [] Loneliness/isolation [] Abandonment Spirituality of Patient [] Person of Angy [] Attends Mu-Ism of their Angy [] Believes in Prayer [] Reads Bible or Scientology materials [] There are Spiritual issues to be addressed Mortgage Professional Interventions [x] Prayer [x] Active listening [x] Non-anxious presence [x] Spiritual/emotional support [] Crisis/trauma care [] Spiritual counseling [] Bereavement support [] Provided bereavement packet [] Provided Bible/devotional materials [] Provided toy/stuffed animal, coloring book to patient or family member [] Provided Communion [] Anointing/[place] [] Salvation [x] Completed spiritual assessment [] Other: Impact on Illness or Injury [] Angry [] Fearful [] Anxious [] Often cries [] Exhaustion [] Unable to work [] Unable to attend mormon [] Unable to walk/stand [] Unable to read [] Unable to drive [] Unable to eat/drink [] Unable to sleep [] Unable to be with family [] Patient intubated [] Other: Summary made some improvement... walk a little yesterday.. pleased with that.. Time spent with patient 5 min
[2021-03-01] MEDS: multivitamin therapeutic Tablet 1 TAB PO (11:09)
[2021-03-01] MEDS: apixaban 5 mg Tablet 2.5 MG PO ×2 (11:09→21:06)
[2021-03-01] MEDS: vancomycin 750 MG in sodium chloride 0.9% 250 ML 250 MG IV (11:16)
[2021-03-01 11:54] LABS: Glucose Point of Care 96 mg/dL (70-110)
[2021-03-01] MEDS: iron sucrose 200 MG in sodium chloride 0.9% (100 ml) 100 ML 220 MG IV (16:05)
[2021-03-01 17:03] LABS: Glucose Point of Care 84 mg/dL (70-110)
--- NOTE | 2021-03-01 17:26 | P.PN_ITS ---
Subjective Subjective: Interval history: No acute events overnight. Working well with physical therapy. Denies any nausea, done, headache. States pain in her ankles are better now after starting gabapentin. Vitals/I&O/Wt Last Vital Signs Temp 97.8 F 03/01/21 08:00 Pulse 84 03/01/21 13:56 Resp 21 H 03/01/21 12:00 BP 106/76 03/01/21 12:00 Pulse Ox 98 03/01/21 13:56 03/01/21 03/01/21 03/01/21 06:59 14:59 22:59 Intake Total 400 / 1420 596 / 596 110 / 706 Balance 400 / 1170 596 / 596 110 / 706 Weight last 48 hrs Weight 107.955 kg Weight 110.132 kg Physical Exam Const: COMMON NORMALS: no acute distress and alert GENERAL APPEARANCE: cooperative and disheveled NUTRITIONAL APPEARANCE: obese ORIENTATION/CONSCIOUSNESS: Yes awake OTHER: HENMT: COMMON NORMALS: oropharynx normal OTHER: No oral lesions. Neck/C-Spine: COMMON NORMALS: no JVD Resp: COMMON NORMALS: normal respiratory effort and clear to auscultation bilaterally AUSCULTATION: clear to auscultation bilaterally Cardio: COMMON NORMALS: no JVD, regular rhythm, S1 normal heart sound present, S2 normal heart sound present and No murmurs present (Cardio) RHYTHM: regular rhythm HEART SOUNDS: S1 normal heart sound present and S2 normal heart sound present GI: COMMON NORMALS: Normal to inspection, nondistended, normoactive bowel sounds present, Soft to palpation and non-tender PALPATION: Yes Soft to palpation Extremity: COMMON NORMALS: no joint enlargement and no pedal edema OTHER: Dirt under fingernails. Neuro: COMMON NORMALS: moves all extremities SENSORIUM/ORIENTATION: Yes alert Skin: OTHER: Resolving erythema patches/confluent rash under armpits, groin, under pannus. Dark pink, appear to be healing. Chronic bilateral lower extremity dermatitis below knees secondary to stasis, with areas of cracked skin, no weeping. Dry skin, cracks, shallow ulcerations on bilateral feet now moisturized and healing. No erythema. Patches of cornified skin now moisturized Urinary Catheter Management^: Cosme: Cath Placed During This Visit: yes, but has since been removed by the nurse Reason for Continuing Indwelling Catheter: Decision to DC Catheter Urinary Catheter Date of Insertion: 02/21/21 Urinary Catheter Time of Insertion: 20:23 Date Urinary Catheter Removed: 02/27/21 Time Urinary Catheter Discontinued: 11:00 Data : 03/01/21 04:20 03/01/21 04:20 Micro: Microbiology 02/28/21 19:28 Occult Blood (FIT) - Final Stool Microbiology 02/28/21 19:28 Stool Occult Blood (FIT) - Final 02/23/21 10:38 Blood Blood Culture - Final NO GROWTH AFTER 5 DAYS 02/23/21 10:30 Blood Blood Culture - Final NO GROWTH AFTER 5 DAYS 02/21/21 21:31 Blood Blood Culture - Final Enterococcus faecalis 02/21/21 19:17 Blood Blood Culture - Final NO GROWTH AFTER 5 DAYS 02/21/21 20:17 Urine,Clean Catch Urine Culture - Final Escherichia coli A&P Assessment and plan (1) Bacteremia: Status: Acute (2) Pneumonia: Continue aztreonam, vancomycin. Oxygen limitation keeping saturation over 90%. Status: Acute (3) UTI (urinary tract infection): E. coli resistant to ampicillin, intermediate Unasyn, resistant to quinolones, tetracycline, Bactrim. No obstructive uropathy noted. Continue aztreonam. Status: Acute (4) [place] (acute kidney injury): Status: Acute (5) Generalized maculopapular rash: Almost entirely resolved rash under armpits, groin/abdomen, quite significantly. Benadryl for itching. QT prolongation with hydroxyzine. Recheck EKG better. Watch off steroid. Continue Diflucan for possible fungal superinfection to finish a 10-day course. Continue to antibiotics for cellulitis of lower extremities. Resolved rash under armpits, groin, under pannus. Eczematous appearance. Otherwise chronic venous stasis dermatitis bilateral lower extremities, erythema. Lower extremities look much better. Superimposed cellulitis improving/resolving. Wounds on feet are healing, look much better. Drug reaction possible as well including possibly a reaction to Lasix with history of sulfa allergy. Added lasix to allergy list as possible culprit. No stigmata of SJS/TEN. Had been started on steroids initially, doing well off steroids currently. Monitor symptoms. Benadryl as needed for itching as she does pick at her rashes/wounds. Calamine lotion. Status: Acute (6) Eczema: Status: Acute (7) Vitamin D deficiency disease: Status: Acute (8) Hyperparathyroidism , secondary, non-renal: Status: Acute (9) Cellulitis: LE cellulitis improving. Continue vancomycin. Benadryl as needed for itching. Status: Acute Qualifiers: Site of cellulitis: other site Qualified Code(s): L03.818 - Cellulitis of other sites (10) Hypothyroidism: Discussed with her TSH elevated at 19.22. She states she had been taking her medications at home. Perhaps Keppra level may help us with some indication whether she is adherent and/or not absorbing her medications. Continue levothyroxine at this time. Follow-up with endocrinology. Status: Acute Qualifiers: Hypothyroidism type: unspecified Qualified Code(s): E03.9 - Hypothyroidism, unspecified (11) Septic shock: Status: Acute (12) Drug allergy: Status: Acute Additional A&P Information Enterococcus bacteremia: HANY negative for vegetation. Most likely source of infection is to port of entry from skin. Continue vancomycin as per culture results. Patient will require 14 days of IV antibiotic course from last positive blood culture. PICC line in place. Sepsis: Septic shock resolved: Likely secondary to a combination of pneumonia and UTI. Continue with aztreonam to finish a 7-day course for complicated UTI with last dose on March 01. Patient has a history of E. coli in the past. Same bacteria growing now. Cosme removed on February 27. History of C. difficile colitis in the past. Most recent 1 week ago. As patient will be on antibiotics for at least 10 more days will start patient on oral vancomycin 125 mg 4 times daily I will continue antibiotics for 7 days after stopping IV antibiotics. [place]: Resolved. Most likely secondary to sepsis. Medical reconstruction done for nephrotoxic drugs. Follow-up urine output. Hypernatremia: Resolved. Patient seems mildly dehydrated. Continue to hold off on diuretics. Stop IV fluids. Bilateral foot pain: Most likely secondary neuropathy. Continue gabapentin. CT foot results appreciated. Anemia: Baseline seems to be from 7.5-8.6. Hemoglobin at baseline. Severe iron deficiency anemia. Vitamin B12, folate levels normal. 2 focal blood negative. We will continue to monitor hemoglobin daily. History of pulmonary embolism: On oxygen supplementation right now. Not on anticoagulation. Has DVT filter. Post DVT. Filter developed more pulmonary embolism. Stool for occult blood is negative. We will start patient on Eliquis 2.5 mg twice daily. Patient is agreeable to starting the same medication. Will need HD check a CBC in a week post discharge. Hypothyroidism: States she takes medications at home. At home she is supposed to be on 275 mcg of levothyroxine. TSH elevated, free T3, free T4 within normal limits. TPO sent last time high. Keppra levels low. Chronically low magnesium and calcium levels. Patient will do well with endocrine follow-up as an outpatient. Bloating: She is lactose intolerant, added lactose restriction to diet. Simethicone as needed. Bradycardia: Resolved. Noted 02/23. Transient. Possibly secondary to electrolyte shifts secondary to changes in renal function. Continue telemetry monitoring. Stopped tizanidine. Stopped hydroxyzine due to QT prolongation. QT prolongation: 02/23. Stopped hydroxyzine. Recheck EKG. Hypocalcemia secondary to vitamin D deficiency and hypomagnesemia Continue calcitriol Hypomagnesemia: Replaced History of alcoholism: Patient is denying recent alcohol intake Discharge planning: Patient has a history of noncompliance in the past, will need SNF for further rehabilitation before going back home. Patient is agreeable to same. Patient working well with physical therapy. Patient would need IV vancomycin on discharge to finish a 14-day course and oral vancomycin for a week after finishing IV vancomycin course. Patient would also need to recheck CBC in 1 week. Plan for discharge to SNF once accepted. PT/OT evaluation. Full code. Eliquis will also help with DVT prophylaxis. Carb consistent lactose intolerant diet. Bowel regimen. Attestations Medical Necessity Statement*: Patient requires further hospitalization for management of Enterococcus bacteremia secondary to cellulitis, history of C. difficile, hypothyroidism while safe discharge planning is sought. Time Spent in Patient Care: Greater than 35 minutes (>than 50% of time spent in counselling and/or direct pt care on unit) . 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
[2021-03-01 20:59] LABS: Glucose Point of Care 97 mg/dL (70-110)
--- NOTE | 2021-03-01 22:15 | PC.NURSE ---
1944 Patient whimpering/crying states she is hurting all over and itching. Falls asleep prior to my departing the room and crying is interrupted by her discussing her ambulation today. Benadryl given for itching. Will continue to monitor.
--- NOTE | 2021-03-01 23:32 | PC.NURSE ---
2330 Patient awakened to fix telemetry. Lornefaith states her pain is a 10/10 and requests her pain pill. PRN pain medication utilized as ordered.
[2021-03-02] VITALS: BP 126/83; PULSE 99; RESP 16; TEMP 36.6; O2SAT 95
[2021-03-02 04:00] VITALS: BP 104/56; PULSE 95; RESP 16; TEMP 37.2; O2SAT 95
[2021-03-02] MEDS: fluticasone nasal spray 16gm Btl 1 SPRAY INTRANASAL (05:51)
[2021-03-02] MEDS: pantoprazole DR 40 mg Tablet PO (05:52)
[2021-03-02] MEDS: folic acid 1 mg Tablet PO (05:52)
[2021-03-02] MEDS: thiamine 100 mg Tablet PO (05:52)
[2021-03-02] MEDS: levothyroxine 75 mcg Tablet PO (05:52)
[2021-03-02] MEDS: levothyroxine 200 mcg Tablet PO (05:52)
[2021-03-02 06:00] VITALS: PULSE 94
--- NOTE | 2021-03-02 06:37 | PC.NURSE ---
0620 Patient drowsy this a.m. awakened for A.M. meds. Upon awakening, patient whimpering and asking for pain medications. Patient fell asleep prior to my departing the room. Will continue to monitor.
[2021-03-02 06:51] LABS: Glucose Point of Care 85 mg/dL (70-110)
[2021-03-02 08:00] VITALS: BP 120/70; PULSE 98; RESP 20; TEMP 36.6; O2SAT 99
[2021-03-02] MEDS: apixaban 5 mg Tablet 2.5 MG PO (09:11)
[2021-03-02] MEDS: fluconazole 100 mg Tablet 200 MG PO (09:11)
[2021-03-02] MEDS: diphenhydrAMINE 25 mg Capsule PO (09:12)
[2021-03-02] MEDS: levETIRAcetam 500 mg Tablet 250 MG PO (09:12)
[2021-03-02] MEDS: gabapentin 100 mg Capsule 200 MG PO (09:13)
[2021-03-02] MEDS: multivitamin therapeutic Tablet 1 TAB PO (09:13)
[2021-03-02] MEDS: magnesium oxide 400 mg tablet PO (09:13)
--- NOTE | 2021-03-02 09:22 | PC.SOCIAL ---
IMM updated IMM updated Pg. 2 updated with patient. Patient verbalized an understanding. Copy provided. Initialled, dated, timed, and place in chart.
[2021-03-02 10:17] LABS: SARS Covid-2 Antigen Negative (Negative)
--- NOTE | 2021-03-02 10:45 | PM.DCS ---
Discharge Providers Date of Admission: 02/21/21 19:48 Date of Discharge: March 02, 2021 Attending Provider at Admission: Magda Dennis MD Attending Provider at Discharge: Edgardo Alexander MD Primary Care Provider: Octaviano Sue MD Diagnoses at Discharge Discharge Diagnosis (1) Bacteremia: Status: Acute (2) Pneumonia: Status: Acute (3) UTI (urinary tract infection): Status: Acute (4) TRENTON (acute kidney injury): Status: Acute (5) Generalized maculopapular rash: Status: Acute (6) Eczema: Status: Acute (7) Vitamin D deficiency disease: Status: Acute (8) Hyperparathyroidism , secondary, non-renal: Status: Acute (9) Cellulitis: Status: Acute Qualifiers: Site of cellulitis: other site Qualified Code(s): L03.818 - Cellulitis of other sites (10) Hypothyroidism: Status: Acute Qualifiers: Hypothyroidism type: unspecified Qualified Code(s): E03.9 - Hypothyroidism, unspecified (11) Septic shock: Status: Acute (12) Drug allergy: Status: Acute Reason for Visit Reason for Visit: POSSIBLE SEPSIS Hospital Course Hospital Course Delores Mckeon is a 45 year old female acute on chronic anemia, history of chronic lymphedema, PE status post IVC filter placement, COPD oxygen dependent uses 2 L, chronic pain, history recurrent UTIs, history of intractable nausea vomiting abdominal pain who presents to chief complaint of worsening bilateral extremity pain and maggots in her left foot. Patient is stating that today her visiting nurse checked on her and found maggots in her left foot she was in excruciating pain hence she was sent to the hospital for further evaluation. She is endorsing development of hives all over her body 4 days ago, she is endorsing rigors/chills, subjective fevers, no active nausea, vomiting, chest pain or shortness of breath, she is not a reliable historian. She is endorsing dysuria and decreased urine output. Denies active diarrhea, runny nose, runny eyes, cough, abdominal pain, headache, neck pain. Patient has had multiple admissions last few months, on her prior admission she was diagnosed with sepsis secondary to cellulitis and UTI for which she was treated with Primaxin however developed hives and required Benadryl she was discharged on Macrobid, her hospitalization was complicated with C. difficile diarrhea for which she received oral vancomycin. Her urine culture grew E. coli. She has multiple drug allergies. On her previous admission she was discharged home on higher dose of Lasix and calcitriol because of hypocalcemia ( secondary to low vitamin D and hypomagnesemia). On previous admission, when she was diagnosed with sepsis her white count was 24 lactic acid 7 and her systolic blood pressure was in 90s. Patient refused SNF placement and she was also declined by [facility] unfortunately Diagnostics in the ER revealed sepsis, septic shock, 9 maggots were removed from left fifth toe, she has maculopapular rash with excoriation all over her body, multiple skin scabs, during my evaluation she kept picking on her wounds, extremely dry skin of lower extremities with lymphedema however no bullae formation or pustules noted. She was started on Levophed which was running at 10 at the time of my evaluation, she was administered aztreonam, metronidazole and vancomycin, clindamycin by the ER physician, she was given 25 mg of Benadryl Central line was placed in the ER which went into her right axillary vein, her central line was removed, she has PIV in her left upper arm, I have requested CT abdomen pelvis without contrast, blood and urine culture sent. She was admitted to the hospital for further management of septic shock. She started on broad-spectrum antibiotics. Her blood cultures from day 1 grew Enterococcus. It is believed source of bacteremia is from skin break from her cellulitis on which she was found to have maggots on admission. Other sources of bacteremia were ruled out with a negative HANY and negative spine CT scans. Urine culture grew E. coli. It is seen that patient has had multiple urine culture with E. coli in the past it is most likely a commensal. Patient has a history of recent C. difficile colitis for which she was started back on oral vancomycin at a lower dose because of her being on IV antibiotics for now. Plan is to continue oral vancomycin for at least a week after stopping her IV antibiotics to prevent recurrence of C. difficile. Eventually she responded well to the treatment and was eventually transferred out of ICU after hemodynamics remained stable. Patient was found to have generalized maculopapular rash most likely from eczema and possible fungal superinfection which was treated with oral Diflucan. She is to complete a course of 10 days of Diflucan. Itching all over her body most likely from allergic reaction to Lasix. Patient is known allergic to sulfa-containing medications. After stopping Lasix her itching improved. Medication has been added to her allergy list. She did not have any segment of SJS/TENS. Patient is to be discharged on slow steroid taper and would benefit from a dermatology referral. Patient was also found to be hypothyroid again with a TSH elevated to 19.22 with a normal free T3 and normal free T4. TPO was found to be in a higher levels with lower Keppra levels with a chronically low magnesium and calcium levels. Patient will benefit from endocrine referral as an outpatient. She is to continue taking levothyroxine, Keppra, magnesium and calcitriol at current dose. From past history of pulmonary embolism on top of IVC filter patient was started on low-dose Eliquis after checking the stool for occult blood which came back negative. Patient is to recheck her CBC in 1 week. Because of multiple admissions in the past, significant deconditioning patient was counseled for possible discharge to SNF for short-term to regain her physical strength with regular physical therapy. Patient agreed. It was difficult to place patient because of denial from multiple facilities. Finally she was accepted and is been discharged in hemodynamically stable condition. Physical Exam Const: COMMON NORMALS: no acute distress and alert GENERAL APPEARANCE: cooperative and disheveled NUTRITIONAL APPEARANCE: obese ORIENTATION/CONSCIOUSNESS: Yes awake OTHER: HENMT: COMMON NORMALS: oropharynx normal OTHER: No oral lesions. Neck/C-Spine: COMMON NORMALS: no JVD Resp: COMMON NORMALS: normal respiratory effort and clear to auscultation bilaterally AUSCULTATION: clear to auscultation bilaterally Cardio: COMMON NORMALS: no JVD, regular rhythm, S1 normal heart sound present, S2 normal heart sound present and No murmurs present (Cardio) RHYTHM: regular rhythm HEART SOUNDS: S1 normal heart sound present and S2 normal heart sound present GI: COMMON NORMALS: Normal to inspection, nondistended, normoactive bowel sounds present, Soft to palpation and non-tender PALPATION: Yes Soft to palpation Extremity: COMMON NORMALS: no joint enlargement and no pedal edema OTHER: Dirt under fingernails. Neuro: COMMON NORMALS: moves all extremities SENSORIUM/ORIENTATION: Yes alert Skin: OTHER: Resolving erythema patches/confluent rash under armpits, groin, under pannus. Dark pink, appear to be healing. Chronic bilateral lower extremity dermatitis below knees secondary to stasis, with areas of cracked skin, no weeping. Dry skin, cracks, shallow ulcerations on bilateral feet now moisturized and healing. No erythema. Patches of cornified skin now moisturized Urinary Catheter Management^: Cosme: Cath Placed During This Visit: yes, but has since been removed by the nurse Reason for Continuing Indwelling Catheter: Decision to DC Catheter Urinary Catheter Date of Insertion: 02/21/21 Urinary Catheter Time of Insertion: 20:23 Date Urinary Catheter Removed: 02/27/21 Time Urinary Catheter Discontinued: 11:00 Discharge Data Data Completed and Pending: Completed Studies During Hospitalization Category Date Time Status CT abdomen pelvis wo con [id number] Stat Cat Scan 02/21/21 20:[address] foot LT wo con * [id number] Routine Cat Scan 02/27/[address] foot RT wo con * [id number] Routine Cat Scan 02/27/21 Completed XR chest 1V [id number] Stat Exams 02/21/21 18:35 Completed XR chest 1V nichole ble [id number] Routine Exams 02/23/21 08:11 Completed XR chest 1V nichole ble [id number] Routine Exams 02/27/21 11:26 Completed XR chest 1V nichole ble [id number] Stat Exams 02/21/21 18:35 Completed CV echo limited 9 [id number] Routine Ultrasound 02/24/21 10:36 Completed CV echo transesop hageal [id number] Routi ne Ultrasound 02/26/21 13:31 Completed Labs from last 24 hours 03/02/21 03/02/21 03/01/21 09:20 06:48 20:57 POC Glucose 85 97 SARS-CoV-2 Ag (Rap id) Negative 03/01/21 03/01/21 16:49 11:20 POC Glucose 84 96 SARS-CoV-2 Ag (Rap id) Addt'l Data from Hospital Stay: Laboratory Results WBC 7.1 10^3/uL (4.0- 10.0) 03/01/21 04:20 RBC 3.24 10^6/uL (4.1 -5.3) L 03/01/21 04:20 Hgb 8.6 g/dL (11.5-15 .3) L 03/01/21 04:20 Hct 31.7 % (37.0-47.0 ) L 03/01/21 04:20 MCV 97.8 fL (81-99) 03/01/21 04:20 MCH 26.5 pg (28.0-34. 0) L 03/01/21 04:20 MCHC 27.1 g/dL (30.0-3 6.0) L 03/01/21 04:20 RDW 19.1 % (12.1-15.1 ) H 03/01/21 04:20 Plt Count 380 10^3/cmm (130 -400) 03/01/21 04:20 MPV 10.3 fL (7.4-10.4 ) 03/01/21 04:20 Neut % (Auto) 50.1 % 03/01/21 04:20 Lymph % (Auto) 26.0 % 03/01/21 04:20 Glades % (Auto) 7.7 % 03/01/21 04:20 Eos % (Auto) 15.0 % 03/01/21 04:20 Baso % (Auto) 0.4 % 03/01/21 04:20 Neut # (Auto) 3.55 10^3/uL (1.8 -7.7) 03/01/21 04:20 Lymph # (Auto) 1.9 10^3/uL (0.8- 4.8) 03/01/21 04:20 Glades # (Auto) 0.6 10^3/uL (0.2- 0.9) 03/01/21 04:20 Eos # (Auto) 1.1 10^3/uL (0.0- 0.8) H 03/01/21 04:20 Baso # (Auto) 0.0 10^3/uL (0.0- 0.1) 03/01/21 04:20 Nucleated RBC % (a uto) 0 % 03/01/21 04:20 Nucleated RBCs # 0.0 /100WBC 03/01/21 04:20 ESR 36 mm/hr (0-15) H 02/27/21 07:10 Sodium 144 mmol/L (136-1 45) 03/01/21 04:20 Potassium 3.5 mmol/L (3.5-5 .1) 03/01/21 04:20 Chloride 106 mmol/L (98-10 7) 03/01/21 04:20 Carbon Dioxide 30 mmol/L (22-29) H 03/01/21 04:20 Anion Gap 11.5 (5-19) 03/01/21 04:20 BUN 9 mg/dL (6-20) 03/01/21 04:20 Creatinine 0.7 mg/dL (0.5-0. 9) 03/01/21 04:20 GFR Calculation 90.1 mL/min (90-1 30) 03/01/21 04:20 Glucose 72 mg/dL (65-115) 03/01/21 04:20 POC Glucose 85 mg/dL (70-110) 03/02/21 06:48 Calculated Osmolal ity 295 mOsm/kg (285- 295) 03/01/21 04:20 Lactic Acid 1.7 mmol/L (0.5-2 .2) 02/21/21 19:17 Calcium 7.4 mg/dL (8.5-10 .5) L 03/01/21 04:20 Phosphorus 3.3 mg/dL (2.5-4. 5) 02/28/21 04:31 Magnesium 1.6 mg/dL (1.7-2. 3) L 02/28/21 04:31 Iron 17 ug/dL (37-145) L 02/27/21 07:10 TIBC 191 mcg/dl 02/27/21 07:10 % Saturation 8.9 % (20-50) L 02/27/21 07:10 Unsat Iron Binding 174 ug/dL (112-34 7) 02/27/21 07:10 Ferritin 51 ng/mL (15-150) 02/27/21 07:10 Total Bilirubin 0.3 mg/dL (0.15-1 .2) 03/01/21 04:20 AST 8 U/L (0-32) 03/01/21 04:20 ALT 7 U/L (0-33) 03/01/21 04:20 Alkaline Phosphata se 114 IU/L (35-105) H 03/01/21 04:20 Creatine Kinase 308 U/L (26-192) H 02/21/21 19:17 Troponin T Baselin e 56 ng/L (0-10) H 02/21/21 19:17 Troponin T 120 Min solomon 56.89 ng/L (0-10) H 02/21/21 21:31 Delta Troponin T 0.89 ABS# (0-10) 02/21/21 21:31 C-Reactive Protein 11.5 mg/L (0.0-4. 9) H 02/27/21 07:10 NT-Pro-B Natriuret Pep 8092 pg/mL (0-125 ) H 02/21/21 19:17 Total Protein 5.5 g/dL (6.6-8.7 ) L 03/01/21 04:20 Albumin 2.4 g/dL (3.5-5.2 ) L 03/01/21 04:20 Globulin 3.1 g/dL (1.3-4.6 ) 03/01/21 04:20 Vitamin B12 1379 pg/mL (232-1 245) H 02/27/21 07:10 Folate 6.8 ng/mL (4.8-37 .3) 02/28/21 04:31 Procalcitonin 41.03 ng/mL (0-0. 5) H 02/21/21 21:31 TSH 19.22 uIU/mL (0.2 7-4.20) H 02/23/21 10:30 Urine Color Brown (Yellow) 02/21/21 20:17 Urine Appearance Cloudy (CLEAR) 02/21/21 20:17 Urine pH 5 (5-7) 02/21/21 20:17 Ur Specific Gravit y 1.015 (1.005-1.0 30) 02/21/21 20:17 Urine Protein 1+ (Negative) H 02/21/21 20:17 Urine Glucose (UA) Norm (Normal) 02/21/21 20:17 Urine Ketones 1+ (Negative) H 02/21/21 20:17 Urine Blood 2+ (Negative) H 02/21/21 20:17 Urine Nitrate Negative (Negati ve) 02/21/21 20:17 Urine Bilirubin 1+ (Negative) H 02/21/21 20:17 Urine Urobilinogen 1 mg/dL (Negative ) H 02/21/21 20:17 Ur Leukocyte Maryellen ase 2+ (Negative) H 02/21/21 20:17 Urine RBC 0-4 /hpf (0-2) H 02/21/21 20:17 Urine WBC Too numerous to c nt /hpf (0-5) H 02/21/21 20:17 Ur Squamous Epith Cells 0-4 /hpf (0-5) H 02/21/21 20:17 Amorphous Sediment Not Reportable 02/21/21 20:17 Urine Bacteria 4+ /hpf (NONE) H 02/21/21 20:17 Ur Random Urea Nit rogn 221 mg/dL 02/22/21 10:50 Urine Creatinine 177 mg/dL (28-217 ) 02/22/21 10:50 Vancomycin Trough 12.6 ug/mL (10-15 ) 02/28/21 11:30 Urine Opiates Scre en Positive ng/mL (N egative) H 02/21/21 20:17 Ur Barbiturates Sc reen Negative ng/mL (N egative) 02/21/21 20:17 Levetiracetam 8.7 mcg/mL L 02/22/21 10:55 Ur Phencyclidine S crn Negative ng/mL (N egative) 02/21/21 20:17 Ur Amphetamines Sc reen Negative ng/mL (N egative) 02/21/21 20:17 U Benzodiazepines Scrn Positive ng/mL (N egative) H 02/21/21 20:17 Urine Cocaine Scre en Negative ng/mL (N egative) 02/21/21 20:17 U Marijuana (THC) Screen Negative ng/mL (N egative) 02/21/21 20:17 Ethyl Alcohol < 10 mg/dL (0-10) 02/21/21 19:17 SARS-CoV-2 Ag (Rap id) Negative (Negati ve) 03/02/21 09:20 Impressions Abdomen/Pelvis CT 02/21/21 20:33 IMPRESSION: 1. Overall, findings appear similar to the previous exam. 2. Large hiatal hernia. 3. Fatty infiltration of the liver. 4. Moderate fecal burden suggesting constipation. No evidence for bowel obstruction or bowel wall thickening. 5. Prominent retroperitoneal and inguinal lymph nodes, stable. The Radiation Dose CTDIVOL = (mGy): DLP = 1296.06 (mGy-cm) Foot CT 02/27/21 00:00 IMPRESSION: No evidence of drainable abscess or fluid collection. Chest X-Ray 02/27/21 11:26 IMPRESSION: 1. The tip of the right arm PICC projects near the origin of the right innominate vein. 2. Large hiatal hernia. Microbiology 02/28/21 19:28 Stool Occult Blood (FIT) - Final 02/23/21 10:38 Blood Blood Culture - Final NO GROWTH AFTER 5 DAYS 02/23/21 10:30 Blood Blood Culture - Final NO GROWTH AFTER 5 DAYS 02/21/21 21:31 Blood Blood Culture - Final Enterococcus faecalis 02/21/21 19:17 Blood Blood Culture - Final NO GROWTH AFTER 5 DAYS 02/21/21 20:17 Urine,Clean Catch Urine Culture - Final Escherichia coli Vitals: Last Vital Signs Temp 97.8 F 03/02/21 08:00 Pulse 98 03/02/21 08:00 Resp 20 H 03/02/21 08:00 BP 120/70 03/02/21 08:00 Pulse Ox 99 03/02/21 08:00 Discharge Plan Discharge Patient Disposition: [facility] Condition: Stable Prescriptions: New Eliquis 5 mg Tablet 2.5 mg PO BID@0900,2100 30 Days Qty: 30 RF: 0 calamine-zinc oxide 8-8 % Lotion 1 applic topical TID 15 Days Qty: 177 RF: 0 diphenhydramine HCl 25 mg Capsule 25 mg PO Q6H PRN (Reason: Itching) Qty: 30 RF: 0 gabapentin 100 mg Capsule 200 mg PO TID 30 Days Qty: 180 RF: 0 vancomycin 750 mg recon soln 750 mg IV DAILY 7 Days Qty: 7 RF: 0 vancomycin 125 mg capsule 125 mg PO QID 14 Days Qty: 56 RF: 0 ethacrynic acid 25 mg tablet 25 mg PO DAILY PRN (Reason: edema) Qty: 14 RF: 0 Continued epinephrine [EpiPen 2-Tim] 0.3 mg/0.3 mL auto-injector 0.3 mg IM PRN PRN (Reason: Allergic Reaction) RF: 0 albuterol sulfate [Ventolin HFA] 90 mcg/actuation HFA aerosol inhaler See Rx Instructions .ROUTE .COMPLEX Qty: 18 RF: 3 potassium chloride [Klor-Con M20] 20 mEq tablet,ER particles/crystals 20 meq PO BID@0600,1800 RF: 0 budesonide 0.25 mg/2 mL suspension for nebulization 0.25 mg INHALATION BID@0600,1800 RF: 0 folic acid 1 mg tablet 1 mg PO DAILY@0600 RF: 0 fluticasone propionate [Flonase Allergy Relief] 50 mcg/actuation spray,suspension 1 spray INTRANASAL BID@0600,1800 RF: 0 cholecalciferol (vitamin D3) 125 mcg (5,000 unit) tablet 5,000 unit PO DAILY@0600 RF: 0 thiamine mononitrate (vit B1) [Vitamin B-1 (mononitrate)] 100 mg tablet 100 mg PO DAILY@0600 RF: 0 levothyroxine 200 mcg capsule 200 mcg PO DAILY@0600 RF: 0 tizanidine [Zanaflex] 2 mg capsule 2 mg PO Q12H PRN (Reason: muscle spasticity) Qty: 10 RF: 0 Narcan 4 mg/actuation spray,non-aerosol 4 mg INTRANASAL PRN PRN (Reason: OVERDOSE) RF: 0 calcitriol 0.25 mcg Capsule 0.5 mcg PO DAILY Qty: 30 RF: 0 ferrous gluconate 324 mg (37.5 mg iron) Tablet 324 mg PO BIDWM Qty: 60 RF: 0 ipratropium-albuterol 0.5 mg-3 mg(2.5 mg base)/3 mL solution for nebulization 3 ml INHALATION Q6H Qty: 15 RF: 0 albuterol sulfate 0.63 mg/3 mL solution for nebulization 0.63 mg INHALATION Q4H PRN (Reason: Shortness Of Breath) RF: 0 Incruse Ellipta 62.5 mcg/actuation blister with device 1 inh INHALATION DAILY@0600 RF: 0 clonazepam 0.5 mg tablet 0.25 mg PO BID PRN (Reason: anxiety) Qty: 14 RF: 0 polyethylene glycol 3350 17 gram Powder In Packet 17 g PO DAILY Qty: 30 RF: 0 magnesium oxide 400 mg (241.3 mg magnesium) Tablet 400 mg PO BID Qty: 60 RF: 0 multivitamin with folic acid [Thera] 400 mcg Tablet 1 tab PO DAILY Qty: 30 RF: 0 sennosides-docusate sodium 8.6-50 mg Tablet 1 tab-cap PO BID Qty: 60 RF: 0 pantoprazole 40 mg tablet,delayed release (DR/EC) 40 mg PO BID@0600,1800 Qty: 60 RF: 0 levothyroxine 50 mcg Tablet 75 mcg PO DAILY@0600 30 Days Qty: 30 RF: 0 fluconazole 100 mg Tablet 200 mg PO DAILY Qty: 3 RF: 0 levetiracetam [Keppra] 500 mg Tablet 1,000 mg PO BID Qty: 0 RF: 0 Discontinued furosemide 40 mg Tablet 80 mg PO BID@08,16 Qty: 60 RF: 0 liothyronine 25 mcg tablet 25 mcg PO DAILY RF: 0 Discharge Orders: Discharge Order (Routine); Ordered 03/02/21 Ordered By: Edgardo Alexander Referrals: Octaviano Sue MD [Primary Care Provider] - Anastacia Brand DO [Physician] - 1 week Octaviano Snyder MD [Physician] - 1 month (High TSH, high TPO, low T4, normal T3, low magnesium, low calcium even though she is on vitamin D and calcitriol) Discharge Diet: Diabetic Discharge Activity: Resume usual activity Patient Instructions: Opioid Safety Discharge Attestations Time Spent in Discharge Care*: greater than 30 min Specific Discharge Activities: educating patient, discussing with pcp/other providers, discussing with case making machine operator/social workers/dc planners, documenting/other paperwork and evaluating patient/reviewing data Status at Discharge: Cognitive status at discharge: cognitively intact, Behavioral status at discharge: cooperative, Functional status at discharge: independent ambulation Overall status at discharge: patient is progressing back to baseline Quality Metrics Clinical Quality Measures During this hospital stay, did patient experience: None Coding Level of Care Code Acute [employer] DC note Diagnoses Bacteremia R78.81 Pneumonia J18.9 UTI (urinary tract infection) N39.0 TR[place] (acute kidney injury) N17.9 Generalized maculopapular rash R21 Eczema L30.9 Vitamin D deficiency disease E55.9 Hyperparathyroidism , secondary, non-renal E21.1 Cellulitis L03.818 Site of cellulitis: other site Hypothyroidism E03.9 Hypothyroidism type: unspecified Septic shock A41.9; R65.21 Drug allergy Z88.9
[2021-03-02 11:53] VITALS: BP 121/79; PULSE 97; RESP 17; TEMP 37.1; O2SAT 99
[2021-03-02 11:58] LABS: Glucose Point of Care 105 mg/dL (70-110)
[2021-03-02] MEDS: vancomycin 750 MG in sodium chloride 0.9% 250 ML 250 MG IV (13:07)
[2021-03-02 14:39] VITALS: BP 121/79; PULSE 97; RESP 17; TEMP 37.1; O2SAT 99
--- NOTE | 2021-03-02 15:01 | PC.NURSE ---
At 1430 when transporter from [facility] arrived patient stated she was not going to rehab. I contacted the social work case manager , who came immediately to see the patient. It was emphasized to the patient the extreme need for one more week of IV antibiotics; and her need for strengthening through rehab. Patient still refused to go to rehab and stated she would just go AMA . Dr. Alexander was called and situation was reported to him. Dr. Alexander also came immediately to room and talked with patient regarding the importance of continuing the antibiotics. . Patient agreed to go to rehab after discussion with physician.
== END 2021-03-02 15:00 | disposition skilled nursing facility (03) | DRG 871 ==
LOC: ER 22:15 → ICU 23:47 → CSU 02-23 22:30
PROVIDERS: Internal Medicine; Admitting Provider Internal Medicine; Emergency Provider Family Medicine; PCP Internal Medicine; Visit Provider Student in an Organized Health Care Education/Training Program
DX: A41.9 Sepsis, unspecified organism (principal); R65.21 Severe sepsis with septic shock; J18.9 Pneumonia, unspecified organism; N17.0 Acute kidney failure with tubular necrosis; J44.0 Chronic obstructive pulmonary disease with (acute) lower respiratory infection; I50.30 Unspecified diastolic (congestive) heart failure; N25.81 Secondary hyperparathyroidism of renal origin; Z16.11 Resistance to penicillins; Z16.23 Resistance to quinolones and fluoroquinolones; Z16.29 Resistance to other single specified antibiotic; N39.0 Urinary tract infection, site not specified; L03.116 Cellulitis of left lower limb; L03.115 Cellulitis of right lower limb; Z68.41 Body mass index [BMI] 40.0-44.9, adult; D50.9 Iron deficiency anemia, unspecified; Z86.711 Personal history of pulmonary embolism; Z95.828 Presence of other vascular implants and grafts; Z99.81 Dependence on supplemental oxygen; G89.29 Other chronic pain; Z87.440 Personal history of urinary (tract) infections; B87.0 Cutaneous myiasis; L27.0 Generalized skin eruption due to drugs and medicaments taken internally; T50.915A Adverse effect of multiple unspecified drugs, medicaments and biological substances, initial encounter; Z86.718 Personal history of other venous thrombosis and embolism; F10.21 Alcohol dependence, in remission; K22.70 Barrett's esophagus without dysplasia; F31.9 Bipolar disorder, unspecified; N18.30 Chronic kidney disease, stage 3 unspecified; Z86.19 Personal history of other infectious and parasitic diseases; E03.9 Hypothyroidism, unspecified; I95.9 Hypotension, unspecified; Z79.51 Long term (current) use of inhaled steroids; E73.9 Lactose intolerance, unspecified; G62.9 Polyneuropathy, unspecified; R00.1 Bradycardia, unspecified; I45.81 Long QT syndrome; Z91.14 Patient's other noncompliance with medication regimen; G47.30 Sleep apnea, unspecified; I08.1 Rheumatic disorders of both mitral and tricuspid valves; B95.2 Enterococcus as the cause of diseases classified elsewhere; E83.42 Hypomagnesemia; E83.51 Hypocalcemia; E55.9 Vitamin D deficiency, unspecified; E66.01 Morbid (severe) obesity due to excess calories
CPT/HCPCS: 36415; 36416; 36569; 36592; 51702; 71045; 73700; 74176; 80048; 80053; 80177; 80202; 80306; 80307; 81001; 82274; 82550; 82570; 82607; 82728; 82746; 82962; 83540; 83550; 83605; 83735; 83880; 84100; 84145; 84443; 84484; 84540; 85025; 85651; 86140; 87040; 87077; 87086; 87186; 87205; 87426; 93005; 93308; 93312; 93320; 93325; 96365; 96366; 96367; 96372; 96375; 96376; 97116; 97161; 97530; 99291; 99292; C1751; J1200; J1644; J1720; J1756; J1815; J2704; J2920; J3370; J3475; J3490; J7030; J7040; J7050; S0030

== ENCOUNTER 2021-03-04 14:17 | Emergency (ER) | payer MEDICARE, MEDICAID, SELFPAY ==
[2021-03-04 14:35] VITALS: BP 138/80; PULSE 100; RESP 18; TEMP 36.2; O2SAT 100; BMI 32.4
--- NOTE | 2021-03-04 14:41 | USR_ITS ---
PROCEDURE INFORMATION: Exam: US Duplex Right Upper Extremity Veins, Limited Exam date and time: 03/04/2021 2:41 PM Age: 45 years old Clinical indication: Other: Picc line site redness; Additional info: Picc line. R/O dvt, order clarified with Dr matt TECHNIQUE: Imaging protocol: Real-time Duplex ultrasound of the Right Upper Extremity with 2-D gutierrez scale, color Doppler flow and spectral waveform analysis with image documentation. Limited exam focused on the right upper extremity veins. COMPARISON: [place] [id number] 05/29/2020 8:35 AM FINDINGS: Right deep veins: Unremarkable. Axillary and brachial veins are patent throughout without thrombus. Normal Doppler waveforms. Normal compressibility and/or augmentation response. Visualized internal jugular and subclavian veins are patent. Right superficial veins: Unremarkable. Visualized cephalic and basilic veins are patent without thrombus. Soft tissues: Unremarkable. US/[place] [id number] IMPRESSION: No sonographic evidence of deep vein thrombosis.
[2021-03-04 14:47] VITALS: BP 138/80; PULSE 99; RESP 18; O2SAT 100
[2021-03-04] MEDS: diphenhydrAMINE 50 mg/mL SDV 1mL 25 MG IVP (15:25)
--- NOTE | 2021-03-04 15:57 | PC.NURSE ---
Attempted to flush PICC line. Pt stated one lumen hadn't worked for a long time. Observed blood in the hub. Other side was very difficult to flush - lots of resistance.
[2021-03-04 16:27] LABS: Basophils # 0.1 10^3/uL (0.0-0.1); Basophils % 1.9 %; Eosinophils # 0.6 10^3/uL (0.0-0.8); Hemoglobin 8.5 g/dL (11.5-15.3); Lymphocytes # 0.8 10^3/uL (0.8-4.8); Lymphocytes % 14.4 %; Mean Corpuscular HGB Conc 26.6 g/dL (30.0-36.0); Mean Corpuscular Hemoglobin 27.2 pg (28.0-34.0); Mean Corpuscular Volume 102.6 fL (81-99); Mean Platelet Volume 10.4 fL (7.4-10.4); Monocytes # 0.6 10^3/uL (0.2-0.9); Monocytes % 10.9 %; Neutrophils # 3.51 10^3/uL (1.8-7.7); Neutrophils % 61.4 %; Nucleated Red Blood Cells % 0 %; Platelet Count 343 10^3/cmm (130-400); Red Blood Count 3.12 10^6/uL (4.1-5.3); Red Cell Distribution Width 19.7 % (12.1-15.1); White Blood Count 5.7 10^3/uL (4.0-10.0)
[2021-03-04 16:46] LABS: Alanine Aminotransferase < 5 U/L (0-33); Albumin Level 2.1 g/dL (3.5-5.2); Alkaline Phosphatase 120 IU/L (35-105); Anion Gap 8.9 (5-19); Aspartate Amino Transferase 9 U/L (0-32); Blood Urea Nitrogen 2 mg/dL (6-20); Calcium 6.7 mg/dL (8.5-10.5); Carbon Dioxide 32 mmol/L (22-29); Chloride 105 mmol/L (98-107); Globulin 3.1 g/dL (1.3-4.6); Glomerular Filtration Rate 107.6 mL/min (90-130); Glucose 90 mg/dL (65-115); Osmolality Calculated 292 mOsm/kg (285-295); Sodium 143 mmol/L (136-145); Total Bilirubin 0.4 mg/dL (0.15-1.2); Total Protein 5.2 g/dL (6.6-8.7)
[2021-03-04 16:48] LABS: Potassium 2.9 mmol/L (3.5-5.1)
[2021-03-04 17:29] VITALS: PULSE 99; O2SAT 100
[2021-03-04] MEDS: potassium chloride ER 20 mEq Tablet 40 MEQ PO (18:02)
--- NOTE | 2021-03-04 18:33 | PC.NURSE ---
pt continues to be upset. wants to go home. does not want to wait for answer as to when PICC line will be replaced. ED provider notified.
--- NOTE | 2021-03-04 19:11 | PC.NURSE ---
picc line removed by Devin Kee RN. site cleansed with betadine and wrapped with coban
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
== END 2021-03-04 19:20 | disposition home or self-care (01) ==
PROVIDERS: Emergency Provider Family Medicine; PCP Internal Medicine
DX: R21 Rash and other nonspecific skin eruption (principal); Z79.01 Long term (current) use of anticoagulants; Z77.22 Contact with and (suspected) exposure to environmental tobacco smoke (acute) (chronic); I13.0 Hypertensive heart and chronic kidney disease with heart failure and stage 1 through stage 4 chronic kidney disease, or unspecified chronic kidney disease; N18.30 Chronic kidney disease, stage 3 unspecified; I50.33 Acute on chronic diastolic (congestive) heart failure; J44.9 Chronic obstructive pulmonary disease, unspecified; Z86.19 Personal history of other infectious and parasitic diseases; Z86.711 Personal history of pulmonary embolism
CPT/HCPCS: 36415; 80053; 85025; 93971; 96374; 99283; J1200

== ENCOUNTER 2021-03-09 17:43 | Inpatient (IN) | payer MEDICARE, MEDICAID, SELFPAY ==
[2021-03-09 18:12] VITALS: BP 103/83; PULSE 123; RESP 16; TEMP 36.9; O2SAT 95
--- NOTE | 2021-03-09 18:33 | XRR_ITS ---
PROCEDURE INFORMATION: Exam: XR Chest Exam date and time: 03/09/2021 6:33 PM Age: 45 years old Clinical indication: Shortness of breath; Additional info: SOB TECHNIQUE: Imaging protocol: XR of the chest. Views: 1 view. Total images: 1 COMPARISON: 1. CR XR chest 1V portable [id number] 02/27/2021 11:[address] abdomen pelvis wo con [id number] 02/21/2021 8:53:17 PM 3. CR XR chest 1V [id number] 02/21/2021 7:27:38 PM FINDINGS: Lungs: Diminished inspiratory effort. Unable to adequately assess the left lung base. No definite evidence of active interstitial or alveolar airspace disease, however. Pleural spaces: Unremarkable. No pleural effusion. No pneumothorax. Heart/Mediastinum: Cardiac structures and configuration with evidence of cardiomegaly. Bones/joints: Unremarkable. Soft tissues: Foramen of Bochdelek hernia. Other findings: Obesity. XR/XR chest 1V portable [id number] IMPRESSION: Diminished inspiratory effort.
--- NOTE | 2021-03-09 18:33 | CTR_ITS ---
PROCEDURE INFORMATION: Exam: CT Head Without Contrast Exam date and time: 03/09/2021 6:33 PM Age: 45 years old Clinical indication: Altered mental status/memory loss; Additional info: AMS TECHNIQUE: Imaging protocol: Computed tomography of the head without contrast. Total images: 208 Radiation optimization: All CT scans at this facility use at least one of these dose optimization techniques: automated exposure control; mA and/or kV adjustment per patient size (includes targeted exams where dose is matched to clinical indication); or iterative reconstruction. COMPARISON: CT head wo con* [id number] 01/19/2021 7:53 PM RADIATION DOSE METRICS: Total DLP (mGy-cm): 903.11 FINDINGS: Brain: No evidence of active or acute intracranial pathologic process, hemorrhage, or trauma. No visible hyperdense MCA or insular ribbon sign. No visible evidence of diffuse cerebral edema or generalized demyelination. No mass effect. No midline shift. Cerebral ventricles: No ventriculomegaly. Paranasal sinuses: Visualized sinuses are unremarkable. No fluid levels. Mastoid air cells: Visualized mastoid air cells are well aerated. Bones/joints: Unremarkable. No acute fracture. Soft tissues: Unremarkable. CT/CT head wo con* [id number] IMPRESSION: No evidence of active or acute intracranial pathologic process, hemorrhage, or trauma. Radiation Dose CTDIVOL = (mGy): DLP = 903.11 (mGy-cm)
--- NOTE | 2021-03-09 18:34 | ECG_ITS ---
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 Measurements Intervals [place] Rate: 108 P: 33 W[place]: 162 QRS: 48 QRSD: 67 T: 32 QT: 365 QTc: 490 Interpretive Statements SINUS TACHYCARDIA LOW QRS VOLTAGE IN PRECORDIAL LEADS [QRS DEFLECTION < 1.0 mV IN CHEST LEADS] Compared to ECG 03/09/2021 17:59:06 Supraventricular tachycardia no longer present Electronically Signed On 03-10-2021 6:11:03 CDT by Odalis Johnston M.D. [email or web address]
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
[2021-03-09 19:41] LABS: ABG PCO2 39.3 mmHg (35-45); ABG PH Result 7.31 (7.35-7.45); Arterial Blood Gas Hematocrit 31.7 % (37-47); Base Excess ABG -6.3 mmol/L (-2.0-2.0); Blood Gas Allen Test Pos; Blood Gas Sample Type Arterial; HCO3 ABG 19.6 mmol/L (22-26); PO2 ABG 74.5 mmHg (80.0-100.0)
[2021-03-09 19:43] LABS: Blood Gas Sample Site Radial, right; Oxygen Device NC
[2021-03-09 20:13] LABS: Glucose Point of Care 40 mg/dL (70-110)
--- NOTE | 2021-03-09 20:34 | ECG_ITS ---
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 Measurements Intervals [place] Rate: 125 P: MO: QRS: 33 QRSD: 85 T: 16 QT: 351 QTc: 508 Interpretive Statements SINUS TACHYCARDIA LOW QRS VOLTAGE IN PRECORDIAL LEADS [QRS DEFLECTION < 1.0 mV IN CHEST LEADS] POSSIBLE RIGHT VENTRICULAR CONDUCTION DELAY [RSR (QR) IN V1/V2] Compared to ECG 02/25/2021 22:15:22 Sinus rhythm no longer present T-wave abnormality no longer present Electronically Signed On 03-10-2021 6:35:48 CDT by Odalis Johnston M.D. [id number]
[2021-03-09 20:36] LABS: Glucose Point of Care 42 mg/dL (70-110)
[2021-03-09 20:48] LABS: Basophils # 0.1 10^3/uL (0.0-0.1); Basophils % 0.5 %; Eosinophils # 0.1 10^3/uL (0.0-0.8); Hematocrit 29.5 % (37.0-47.0); Hemoglobin 8.4 g/dL (11.5-15.3); Lymphocytes # 1.6 10^3/uL (0.8-4.8); Lymphocytes % 13.5 %; Mean Corpuscular HGB Conc 28.5 g/dL (30.0-36.0); Mean Corpuscular Hemoglobin 27.6 pg (28.0-34.0); Mean Platelet Volume 11.7 fL (7.4-10.4); Monocytes % 8.4 %; Neutrophils # 8.71 10^3/uL (1.8-7.7); Neutrophils % 75.8 %; Nucleated Red Blood Cells % 0.3 %; Platelet Count 311 10^3/cmm (130-400); Red Blood Count 3.04 10^6/uL (4.1-5.3); Red Cell Distribution Width 19.8 % (12.1-15.1); White Blood Count 11.5 10^3/uL (4.0-10.0)
[2021-03-09] MEDS: dextrose 50% syringe 50 mL IVP (20:48)
[2021-03-09 21:27] LABS: Alanine Aminotransferase 43 U/L (0-33); Albumin Level 2.2 g/dL (3.5-5.2); Alkaline Phosphatase 235 IU/L (35-105); Anion Gap 26.3 (5-19); Aspartate Amino Transferase 128 U/L (0-32); Blood Urea Nitrogen 13 mg/dL (6-20); Calcium 6.6 mg/dL (8.5-10.5); Carbon Dioxide 19 mmol/L (22-29); Chloride 99 mmol/L (98-107); Globulin 2.8 g/dL (1.3-4.6); Glomerular Filtration Rate 8.9 mL/min (90-130); Glucose 64 mg/dL (65-115); Osmolality Calculated 286 mOsm/kg (285-295); Potassium 5.3 mmol/L (3.5-5.1); Sodium 139 mmol/L (136-145); Total Bilirubin 0.8 mg/dL (0.15-1.2)
[2021-03-09 21:44] LABS: Glucose Point of Care 139 mg/dL (70-110)
[2021-03-09 21:49] LABS: NT Pro B Type Natriuretic Pept 6620 pg/mL (0-125)
[2021-03-09 21:50] LABS: Creatine Phosphokinase 2564 U/L (26-192)
[2021-03-09] MEDS: sodium chloride 0.9% 1,000 ML 999 ML IV (22:20)
[2021-03-09] MEDS: sodium chloride 0.9% 1,000 ML 100 ML IV (22:20)
[2021-03-10] VITALS (14 sets, daily range): BP systolic 86–133; BP diastolic 40–100; PULSE 81–113; RESP 16–20; TEMP 36.5–37.3; O2SAT 91–97
--- NOTE | 2021-03-10 00:34 | ECG_ITS ---
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
[2021-03-10 01:01] LABS: Glucose Point of Care 113 mg/dL (70-110)
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
[2021-03-10 07:02] LABS: Glucose Point of Care 86 mg/dL (70-110)
[2021-03-10] MEDS: heparin 5,000 unit/mL INJ 1 mL 5000 UNIT SUBCUT ×2 (07:37→18:43)
--- NOTE | 2021-03-10 08:33 | PC.RESP ---
PULMONARY REHAB INFORMATION SENT TO PATIENT.
[2021-03-10] MEDS: docusate sodium 100 mg Capsule PO ×2 (09:03→18:10)
[2021-03-10 09:28] LABS: Basophils # 0.1 10^3/uL (0.0-0.1); Basophils % 0.9 %; Eosinophils # 0.3 10^3/uL (0.0-0.8); Eosinophils % 4.4 %; Hematocrit 28.3 % (37.0-47.0); Lymphocytes % 14.3 %; Mean Corpuscular HGB Conc 28.3 g/dL (30.0-36.0); Mean Corpuscular Hemoglobin 27.7 pg (28.0-34.0); Mean Corpuscular Volume 97.9 fL (81-99); Mean Platelet Volume 11.7 fL (7.4-10.4); Monocytes # 0.5 10^3/uL (0.2-0.9); Monocytes % 6.9 %; Neutrophils # 5.11 10^3/uL (1.8-7.7); Neutrophils % 73.1 %; Nucleated Red Blood Cells % 0.3 %; Platelet Count 208 10^3/cmm (130-400); Red Blood Count 2.89 10^6/uL (4.1-5.3); Red Cell Distribution Width 19.9 % (12.1-15.1)
[2021-03-10 09:56] LABS: Alanine Aminotransferase 61 U/L (0-33); Albumin Level 1.8 g/dL (3.5-5.2); Alkaline Phosphatase 195 IU/L (35-105); Anion Gap 16.9 (5-19); Aspartate Amino Transferase 188 U/L (0-32); Blood Urea Nitrogen 13 mg/dL (6-20); Calcium 6.1 mg/dL (8.5-10.5); Carbon Dioxide 24 mmol/L (22-29); Chloride 107 mmol/L (98-107); Globulin 2.9 g/dL (1.3-4.6); Glomerular Filtration Rate 9.5 mL/min (90-130); Glucose 111 mg/dL (65-115); Magnesium 1.4 mg/dL (1.7-2.3); Osmolality Calculated 297 mOsm/kg (285-295); Phosphorus 6.1 mg/dL (2.5-4.5); Potassium 4.9 mmol/L (3.5-5.1); Sodium 143 mmol/L (136-145); Total Bilirubin 0.8 mg/dL (0.15-1.2); Total Protein 4.7 g/dL (6.6-8.7); Uric Acid 10.5 mg/dL (2.4-5.7)
[2021-03-10 10:19] LABS: Creatine Phosphokinase 2808 U/L (26-192)
--- NOTE | 2021-03-10 10:24 | PM.PN ---
Subjective Subjective: Interval history: Patient was seen and examined this morning, continues to be encephalopathic, currently not responding appropriately, complaining of severe itching. Continues to remain afebrile Medications: Reviewed: Yes Vitals/I&O/Wt Last Vital Signs Temp 97.7 F 03/10/21 08:44 Pulse 81 03/10/21 08:44 Resp 17 03/10/21 08:44 BP 133/100 03/10/21 08:44 Pulse Ox 95 03/10/21 08:44 03/09/21 03/10/21 03/10/21 22:59 06:59 14:59 Intake Total 1080 / 1080 200 / 200 Output Total 600 / 600 Balance 1080 / 1080 -400 / -400 Physical Exam Narrative: EXAM NARRATIVE: Alert and awake HENMT: COMMON NORMALS: normocephalic and atraumatic HEAD & SCALP: normocephalic and atraumatic Resp: COMMON NORMALS: clear to auscultation bilaterally AUSCULTATION: clear to auscultation bilaterally Cardio: COMMON NORMALS: regular rate, regular rhythm, S1 normal heart sound present, S2 normal heart sound present, No gallops present (Cardio), No murmurs present (Cardio), No rub (Cardio) and Peripheral pulses 2+ throughout RATE: regular rate RHYTHM: regular rhythm HEART SOUNDS: S1 normal heart sound present and S2 normal heart sound present PERIPHERAL PULSES: Peripheral pulses 2+ throughout GI: COMMON NORMALS: Normal to inspection, nondistended, normoactive bowel sounds present, Soft to palpation, non-tender, No hepatosplenomegaly present and no masses AUSCULTATION: Yes normoactive bowel sounds PALPATION: Yes Soft to palpation and Yes No hepatosplenomegaly present RECTAL EXAM: deferred Extremity: OTHER: Extensive stasis changes to both lower extremities distally with hyperkeratosis of the skin. Urinary Catheter Management^: Cosme: Cath Placed During This Visit: yes Urinary Catheter Date of Insertion: 03/10/21 Urinary Catheter Time of Insertion: 10:08 Data : 03/10/21 09:07 03/10/21 09:07 A&P Assessment and plan (1) Acute metabolic encephalopathy: Related to acute kidney injury, metabolic acidosis, effect of medications in the setting of such and possibly being overheated today. Status: Acute (2) Acute kidney injury: On chronic kidney disease in a patient with recurrent significant acute kidney injury lately, some hyperkalemia Status: Acute (3) Rhabdomyolysis: Presumptively from lying in her 's truck all day in the heat Status: Acute Qualifiers: Rhabdomyolysis type: non-traumatic Qualified Code(s): M62.82 - Rhabdomyolysis (4) Hypoglycemia: Status: Acute (5) Congestive heart failure: Currently with anasarca. Unknown if she has been taking diuretics or not at home. Lasix had previously been stopped and ethacrynic acid prescribed Status: Chronic Qualifiers: Heart failure chronicity: acute on chronic Heart failure type: diastolic Qualified Code(s): I50.33 - Acute on chronic diastolic (congestive) heart failure (6) COPD (chronic obstructive pulmonary disease): Status: Acute Qualifiers: COPD type: unspecified COPD Qualified Code(s): J44.9 - Chronic obstructive pulmonary disease, unspecified (7) Hypothyroidism: Status: Chronic Qualifiers: Hypothyroidism type: unspecified Qualified Code(s): E03.9 - Hypothyroidism, unspecified Additional A&P Information History of DVT, PE with IVC filter and recent reinitiation of anticoagulation described History of GI bleeding History of chronic abdominal pain Extensive rash lately that was felt to be due to Lasix allergy History of alcohol dependence History of endocarditis, bacteremia, urinary tract infections, cellulitis, line infections Multiple other comorbid conditions as noted above deviously well documented in the records Inpatient admission IV fluids Check urinalysis Recheck CK and renal function in the morning Monitor blood pressures closely Cosme catheter for close monitoring of urine output We will need diuresis at some point in time If does not improve with IV fluids consider nephrology consultation Monitor blood sugars Continue oxygen, breathing treatments if needed Hold most home medications currently until starts to show signs of improvement Will provide some Vistaril for itching Need to clarify current home medication list since she left the intermediate We will need to monitor peripheral IV access, we were able to get a line placed in the ED which she quickly pulled out; aware lab draws and IVs are challenging with Mrs. Mckeon Subcu heparin for DVT prophylaxis currently, I am unclear if she is taking Eliquis or not Supportive care otherwise Anticipated disposition is wherever Mrs. Mckeon will agree to when she is medically stable. She typically refuses to go to skilled facility and when she does she leaves it shortly thereafter. I do not know that there is much that we can do to change her current health care course for the better though we do repeatedly try. Full code Attestations Medical Necessity Statement*: Patient needs to be in the [facility]ospitall for the management of acute encephalopathy as well as [place] Coding Level of Care Code Acute Wire Stretcher for [facility] Diagnoses Acute metabolic encephalopathy G93.41 Acute kidney injury N17.9 Rhabdomyolysis M62.82 Rhabdomyolysis type: non-traumatic Hypoglycemia E16.2 Congestive heart failure I50.33 Heart failure chronicity: acute on chronic Heart failure type: diastolic COPD (chronic obstructive pulmonary disease) J44.9 COPD type: unspecified COPD Hypothyroidism E03.9 Hypothyroidism type: unspecified
[2021-03-10 11:24] LABS: Add Urine Microscopic? YES; Bilirubin Urine 1+ (Negative); Blood Urine 3+ (Negative); Glucose Urine UA Norm (Normal); Ketones Urine Negative (Negative); Leukocyte Esterase Urine 1+ (Negative); Nitrate Urine Negative (Negative); Protein Urine 1+ (Negative); Urine Appearance SL Hazy (CLEAR); Urine Color Yellow (Yellow); Urobilinogen Urine Norm (Negative); pH Urine 5 (5-7)
[2021-03-10 11:25] LABS: WBC Urine 15-25 /hpf (0-5)
[2021-03-10 11:26] LABS: Bacteria Urine 1+ /hpf; Hyaline Casts Urine 0-4 /lpf; Squamous Epithelial Cell Urine 0-4 /hpf (0-5)
[2021-03-10 11:27] LABS: Add Urine Culture? Yes
[2021-03-10] MEDS: sodium chloride 0.9% 1,000 ML 125 ML IV ×2 (11:43→18:44)
[2021-03-10 12:11] LABS: Glucose Point of Care 147 mg/dL (70-110)
--- NOTE | 2021-03-10 14:20 | PC.CHAP ---
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 parts department manager visit [] Patient/Family/Request visit [] Outpatient visit [] Follow-up visit [] Physician referral [] Code/Alert [xx] Routine visit [] Staff referral [] Actively dying [] Patient sleeping [] Family support [] [] Out of room [] Palliative care [] [] Receiving care in room [] Pre-surgical visit [] Trauma [] Long length of stay [] ICU visit [] Other: Relational/Emotional Strength [xx] Patient feels connected with others/family/visitors/staff [] Distress [] Loneliness/isolation [] Abandonment Spirituality of Patient [] Person of Angy [] Attends Mosque of their Angy [xx] Believes in Prayer [] Reads Bible or Anabaptist materials [] There are Spiritual issues to be addressed Sanitor Interventions [xx] Prayer [] Active listening [xx] Non-anxious presence [] Spiritual/emotional support [] Crisis/trauma care [] Spiritual counseling [] Bereavement support [] Provided bereavement packet [] Provided Bible/devotional materials [] Provided toy/stuffed animal, coloring book to patient or family member [] Provided Communion [] Anointing/Rolla [] Salvation [xx] Completed spiritual assessment [] Other: Impact on Illness or Injury [] Angry [] Fearful [] Anxious [] Often cries [] Exhaustion [] Unable to work [] Unable to attend restoration [] Unable to walk/stand [] Unable to read [] Unable to drive [] Unable to eat/drink [] Unable to sleep [] Unable to be with family [] Patient intubated [] Other: Summary Patient not feeling well enough for conversation. She did, however, want prayer. Time spent with patient 4 minutes
[2021-03-10] MEDS: diphenhydrAMINE 50 mg/mL SDV 1mL 25 MG IVP ×2 (14:22→22:38)
[2021-03-10] MEDS: ipratropium-albuterol 3 mL Neb INHALATION (14:50)
[2021-03-10 17:11] LABS: Glucose Point of Care 144 mg/dL (70-110)
[2021-03-10] MEDS: levETIRAcetam 500 mg Tablet 1000 MG PO (20:49)
[2021-03-10 22:05] LABS: Glucose Point of Care 108 mg/dL (70-110)
[2021-03-10 22:57] LABS: Basophils # 0.1 10^3/uL (0.0-0.1); Basophils % 1.4 %; Eosinophils # 0.5 10^3/uL (0.0-0.8); Hematocrit 25.8 % (37.0-47.0); Hemoglobin 7.2 g/dL (11.5-15.3); Lymphocytes # 0.9 10^3/uL (0.8-4.8); Lymphocytes % 18.8 %; Mean Corpuscular HGB Conc 27.9 g/dL (30.0-36.0); Mean Corpuscular Hemoglobin 27.7 pg (28.0-34.0); Mean Corpuscular Volume 99.2 fL (81-99); Mean Platelet Volume 11.9 fL (7.4-10.4); Monocytes # 0.4 10^3/uL (0.2-0.9); Monocytes % 7.2 %; Neutrophils # 3.06 10^3/uL (1.8-7.7); Neutrophils % 62.6 %; Nucleated Red Blood Cells % 0 %; Platelet Count 183 10^3/cmm (130-400); Red Cell Distribution Width 19.9 % (12.1-15.1); White Blood Count 4.9 10^3/uL (4.0-10.0)
[2021-03-10 23:18] LABS: Alanine Aminotransferase 85 U/L (0-33); Alkaline Phosphatase 231 IU/L (35-105); Anion Gap 15.5 (5-19); Aspartate Amino Transferase 178 U/L (0-32); Blood Urea Nitrogen 12 mg/dL (6-20); Calcium 6.1 mg/dL (8.5-10.5); Carbon Dioxide 23 mmol/L (22-29); Chloride 106 mmol/L (98-107); Glomerular Filtration Rate 10.5 mL/min (90-130); Glucose 103 mg/dL (65-115); Magnesium 1.2 mg/dL (1.7-2.3); Osmolality Calculated 290 mOsm/kg (285-295); Phosphorus 5.3 mg/dL (2.5-4.5); Potassium 4.5 mmol/L (3.5-5.1); Sodium 140 mmol/L (136-145); Total Bilirubin 0.8 mg/dL (0.15-1.2)
[2021-03-10 23:34] LABS: Creatine Phosphokinase 2280 U/L (26-192)
--- NOTE | 2021-03-10 23:45 | PC.NURSE ---
Change in patient status At 2034 this nurse entered patients room for shift assessment and medication pass. Upon assessing patient, patient was confused and not able to answer questions. Patient was mumbling and not able to speak clearly. Patient was unable to follow commands. Pupils were unequal left eye was reactive 2mm right eye was unreactive/fixed 5mm. Patient continued to stair forward with no reaction to stimuli. Day shift nurse assess patient with this nurse agreeing that patients condition had changed since shift change report. Vitals were taken and WNL. After 5 minutes of assessing and speaking with the patient, she was able to tell this nurse her name, , and location. Patients words were mumbled and difficult to understand. Charge Nurse notified and assessed the patient with this nurse. Physician notified with new orders placed. Patient is now A&O x3, Left pupil is unchanged and right pupil is reactive 3mm.
[2021-03-11] VITALS (29 sets, daily range): BP systolic 72–114; BP diastolic 42–69; PULSE 61–115; RESP 15–39; TEMP 36.4–37.2; O2SAT 90–100
[2021-03-11] MEDS: sodium chloride 0.9% 250 ML IV (01:51)
[2021-03-11] MEDS: sodium chloride 0.9% 1,000 ML 125 ML IV ×2 (03:06→14:45)
[2021-03-11] MEDS: sodium chloride 0.9% 500 ML IV (03:46)
[2021-03-11 04:08] LABS: Glucose Point of Care 95 mg/dL (70-110)
--- NOTE | 2021-03-11 04:26 | PC.NURSE ---
Change in patient status Patient is very lethargic. Difficult to arouse, but will slowly respond with continuous stimuli. Patient appears disoriented, but oriented to Person, , and location. Pupils are slightly reactive. Vitals Temp: 97.6, HR 82, RR22, BP 82/44. Physician notified of change of status. Dr. Ann assessed patient with this nurse and will place appropriate orders for patient.
--- NOTE | 2021-03-11 05:36 | CTR_ITS ---
PROCEDURE INFORMATION: Exam: CT Head Without Contrast Exam date and time: 03/11/2021 5:36 AM Age: 45 years old Clinical indication: Altered mental status/memory loss; Confusion or disorientation; Additional info: Anioscoria new, AMS, anticoagulation TECHNIQUE: Imaging protocol: Computed tomography of the head without contrast. Radiation optimization: All CT scans at this facility use at least one of these dose optimization techniques: automated exposure control; mA and/or kV adjustment per patient size (includes targeted exams where dose is matched to clinical indication); or iterative reconstruction. COMPARISON: CT head wo con* [id number] 03/09/2021 6:43 PM RADIATION DOSE METRICS: Total DLP (mGy-cm): 712.37 FINDINGS: Brain: No acute intracranial hemorrhage or mass effect. No definite acute infarct by CT. MRI could be more sensitive/specific for detection, as clinically directed. Cerebral ventricles: Ventricle size is normal for age. Paranasal sinuses: Included paranasal sinuses are essentially clear. Mastoid air cells: No significant acute finding. Bones/joints: No definite acute skull fracture. Soft tissues: Nonspecific soft tissue/scalp swelling in the left parietal region, not significantly changed. There is some subcutaneous fluid in this region. CT/CT head wo con* [id number] IMPRESSION: 1. No acute intracranial hemorrhage or mass effect. 2. No definite acute infarct by CT, see above. 3. Other findings discussed above. Radiation Dose CTDIVOL = (mGy): DLP = 712.37 (mGy-cm)
--- NOTE | 2021-03-11 05:37 | PM.EVENT ---
Event Note Event Note: Delores not acting quite herself this evening. Intermittently not responsive, speech is hard to understand at times and most recently has been noted to have anisocoria with right pupuil being larger than left. I do not recall nor can find that this was present before. Since she had been prescribed eliquis again, and has this objective finding on exam have ordered CT head without contrast. Neuro checks ordered. Gave fluid bolus a few times for bordeline BPs. She has been alert and oriented at times. Keppra resumed last evening. Not on any benzos or narcotics presently.
[2021-03-11 05:55] LABS: Basophils # 0.1 10^3/uL (0.0-0.1); Eosinophils # 0.4 10^3/uL (0.0-0.8); Eosinophils % 8.5 %; Hematocrit 25.5 % (37.0-47.0); Hemoglobin 7.1 g/dL (11.5-15.3); Lymphocytes # 0.9 10^3/uL (0.8-4.8); Lymphocytes % 17.5 %; Mean Corpuscular HGB Conc 27.8 g/dL (30.0-36.0); Mean Corpuscular Hemoglobin 27.1 pg (28.0-34.0); Mean Corpuscular Volume 97.3 fL (81-99); Monocytes # 0.4 10^3/uL (0.2-0.9); Monocytes % 7.5 %; Neutrophils # 3.31 10^3/uL (1.8-7.7); Neutrophils % 65.1 %; Nucleated Red Blood Cells % 0 %; Platelet Count 165 10^3/cmm (130-400); Red Blood Count 2.62 10^6/uL (4.1-5.3); Red Cell Distribution Width 19.9 % (12.1-15.1); White Blood Count 5.1 10^3/uL (4.0-10.0)
[2021-03-11 06:11] LABS: Alanine Aminotransferase 78 U/L (0-33); Albumin Level 1.9 g/dL (3.5-5.2); Alkaline Phosphatase 211 IU/L (35-105); Anion Gap 13.3 (5-19); Aspartate Amino Transferase 156 U/L (0-32); Blood Urea Nitrogen 12 mg/dL (6-20); Carbon Dioxide 23 mmol/L (22-29); Chloride 109 mmol/L (98-107); Globulin 2.7 g/dL (1.3-4.6); Glomerular Filtration Rate 11.1 mL/min (90-130); Glucose 91 mg/dL (65-115); Osmolality Calculated 291 mOsm/kg (285-295); Potassium 4.3 mmol/L (3.5-5.1); Sodium 141 mmol/L (136-145); Total Bilirubin 0.7 mg/dL (0.15-1.2); Total Protein 4.6 g/dL (6.6-8.7)
[2021-03-11 06:13] LABS: Calcium 5.9 mg/dL (8.5-10.5); Creatine Phosphokinase 1484 U/L (26-192)
[2021-03-11] MEDS: levothyroxine 75 mcg Tablet PO (06:23)
[2021-03-11] MEDS: cholecalciferol (vitamin D3) 5,000 unit Tablet 5000 UNIT PO (06:23)
[2021-03-11] MEDS: thiamine 100 mg Tablet PO (06:23)
[2021-03-11] MEDS: heparin 5,000 unit/mL INJ 1 mL 5000 UNIT SUBCUT ×2 (06:24→20:25)
[2021-03-11] MEDS: docusate sodium 100 mg Capsule PO ×2 (09:26→18:25)
[2021-03-11] MEDS: levETIRAcetam 500 mg Tablet 1000 MG PO ×2 (09:26→20:25)
[2021-03-11 12:06] LABS: Glucose Point of Care 121 mg/dL (70-110)
[2021-03-11] MEDS: ipratropium-albuterol 3 mL Neb INHALATION (15:01)
--- NOTE | 2021-03-11 15:30 | PM.PN ---
Subjective Subjective: Interval history: Patient was seen and examined this morning, she was complaining of severe itching,Hb has dropped to 7.1. Medications: Reviewed: Yes Vitals/I&O/Wt Last Vital Signs Temp 98.0 F 03/11/21 12:00 Pulse 97 03/11/21 15:06 Resp 18 03/11/21 15:06 BP 114/62 03/11/21 12:00 Pulse Ox 95 03/11/21 15:06 03/11/21 03/11/21 03/11/21 06:59 14:59 22:59 Intake Total 1750 / 3827.083 1240 / 1240 Output Total 400 / 1000 Balance 1350 / 2827.083 1240 / 1240 Weight last 48 hrs Weight 108.454 kg Weight 108.21 kg Physical Exam Narrative: EXAM NARRATIVE: Alert and awake HENMT: COMMON NORMALS: normocephalic and atraumatic HEAD & SCALP: normocephalic and atraumatic Resp: COMMON NORMALS: clear to auscultation bilaterally AUSCULTATION: clear to auscultation bilaterally Cardio: COMMON NORMALS: regular rate, regular rhythm, S1 normal heart sound present, S2 normal heart sound present, No gallops present (Cardio), No murmurs present (Cardio), No rub (Cardio) and Peripheral pulses 2+ throughout RATE: regular rate RHYTHM: regular rhythm HEART SOUNDS: S1 normal heart sound present and S2 normal heart sound present PERIPHERAL PULSES: Peripheral pulses 2+ throughout GI: COMMON NORMALS: Normal to inspection, nondistended, normoactive bowel sounds present, Soft to palpation, non-tender, No hepatosplenomegaly present and no masses AUSCULTATION: Yes normoactive bowel sounds PALPATION: Yes Soft to palpation and Yes No hepatosplenomegaly present RECTAL EXAM: deferred Extremity: OTHER: Extensive stasis changes to both lower extremities distally with hyperkeratosis of the skin. Urinary Catheter Management^: Cosme: Cath Placed During This Visit: yes Reason for Continuing Indwelling Catheter: Accurate Measurement of Urinary Output in Critically Ill Patients Urinary Catheter Date of Insertion: 03/10/21 Urinary Catheter Time of Insertion: 10:08 Data : 03/11/21 05:07 03/11/21 05:07 Micro: Microbiology 03/10/21 10:02 Urine Culture - Preliminary Urine,Clean Catch Yeast A&P Assessment and plan (1) Acute metabolic encephalopathy: Related to acute kidney injury, metabolic acidosis, effect of medications in the setting of such and possibly being overheated today. Status: Acute (2) Acute kidney injury: On chronic kidney disease in a patient with recurrent significant acute kidney injury lately, some hyperkalemia Status: Acute (3) Anemia: Likely Anemia of Chronic Disease. Current PLAN IS TO TRANSFUSE 1 U PRBC Monitor CBC FOBT Status: Acute (4) Rhabdomyolysis: Presumptively from lying in her 's truck all day in the heat. Monitor CPK I/O Charting Status: Acute Qualifiers: Rhabdomyolysis type: non-traumatic Qualified Code(s): M62.82 - Rhabdomyolysis (5) Hypoglycemia: Status: Acute (6) Congestive heart failure: Currently with anasarca. Unknown if she has been taking diuretics or not at home. Bumex 1 mg po daily. Status: Chronic Qualifiers: Heart failure chronicity: acute on chronic Heart failure type: diastolic Qualified Code(s): I50.33 - Acute on chronic diastolic (congestive) heart failure (7) COPD (chronic obstructive pulmonary disease): Status: Acute Qualifiers: COPD type: unspecified COPD Qualified Code(s): J44.9 - Chronic obstructive pulmonary disease, unspecified (8) Hypothyroidism: Status: Chronic Qualifiers: Hypothyroidism type: unspecified Qualified Code(s): E03.9 - Hypothyroidism, unspecified Additional A&P Information History of DVT, PE with IVC filter and recent reinitiation of anticoagulation described History of GI bleeding History of chronic abdominal pain Extensive rash lately that was felt to be due to Lasix allergy History of alcohol dependence History of endocarditis, bacteremia, urinary tract infections, cellulitis, line infections Multiple other comorbid conditions as noted above deviously well documented in the records Inpatient admission IV fluids Check urinalysis Recheck CK and renal function in the morning Monitor blood pressures closely Cosme catheter for close monitoring of urine output We will need diuresis at some point in time If does not improve with IV fluids consider nephrology consultation Monitor blood sugars Continue oxygen, breathing treatments if needed Hold most home medications currently until starts to show signs of improvement Will provide some Vistaril for itching Need to clarify current home medication list since she left the skilled nursing We will need to monitor peripheral IV access, we were able to get a line placed in the ED which she quickly pulled out; aware lab draws and IVs are challenging with Mrs. Mckeon Subcu heparin for DVT prophylaxis currently, I am unclear if she is taking Eliquis or not Supportive care otherwise Anticipated disposition is wherever Mrs. Mckeon will agree to when she is medically stable. She typically refuses to go to skilled facility and when she does she leaves it shortly thereafter. I do not know that there is much that we can do to change her current health care course for the better though we do repeatedly try. Full code Attestations Medical Necessity Statement*: Patient needs to be hospital for the management of encephalopathy,TRENTON, Anasarca. Coding Level of Care Code Acute Work Environment Safety Inspector for [facility] Fwd Diagnoses Acute metabolic encephalopathy G93.41 Acute kidney injury N17.9 Anemia D64.9 Rhabdomyolysis M62.82 Rhabdomyolysis type: non-traumatic Hypoglycemia E16.2 Congestive heart failure I50.33 Heart failure chronicity: acute on chronic Heart failure type: diastolic COPD (chronic obstructive pulmonary disease) J44.9 COPD type: unspecified COPD Hypothyroidism E03.9 Hypothyroidism type: unspecified
[2021-03-11] MEDS: diphenhydrAMINE 50 mg/mL SDV 1mL 25 MG IVP (16:07)
--- NOTE | 2021-03-11 16:16 | PC.NURSE ---
PRBC 1ST UNIT OF PRBC UP PER THIS NURSE - PREMEDICATION WITH 25MG BENADRYL IVP - TRANSFUSION STARTED AT 75ML/HR - WILL MONITOR UNIT #[id number]
--- NOTE | 2021-03-11 16:31 | PC.NURSE ---
PRBC PT JENNI TRANSFUSION WITHOUT DIFFICULTY - INFUSION INCREASED TO 125ML/HR - LINDA, QUALITY MANAGER AT SIDE TO TAKE OVER MONITOR PTS
[2021-03-11] MEDS: sodium chloride 0.9% (100 ml) 100 ML 15 ML (18:25)
[2021-03-11 20:14] LABS: Glucose Point of Care 114 mg/dL (70-110)
[2021-03-11 20:14] LABS: Glucose Point of Care 98 mg/dL (70-110)
--- NOTE | 2021-03-11 23:51 | PC.NURSE ---
Patient arrived to ICU at 2320. Patients linens changed and patient washed due to being dirty. Continue care.
--- NOTE | 2021-03-11 23:53 | PC.NURSE ---
Patient had maggots on self during assessment. Wound on left hip probable cause. Patient cleaned
[2021-03-12] VITALS (71 sets, daily range): BP systolic 77–110; BP diastolic 42–76; PULSE 70–97; RESP 10–44; TEMP 36.6–36.9; O2SAT 92–100
[2021-03-12] MEDS: bumetanide 0.25 mg/mL SDV 4 mL 1 MG IV ×2 (00:46→12:16)
[2021-03-12 05:04] LABS: Basophils # 0.1 10^3/uL (0.0-0.1); Basophils % 1.2 %; Eosinophils # 1.1 10^3/uL (0.0-0.8); Hematocrit 31.5 % (37.0-47.0); Hemoglobin 9.2 g/dL (11.5-15.3); Lymphocytes # 1.3 10^3/uL (0.8-4.8); Lymphocytes % 16.6 %; Mean Corpuscular HGB Conc 29.2 g/dL (30.0-36.0); Mean Corpuscular Hemoglobin 27.9 pg (28.0-34.0); Mean Corpuscular Volume 95.5 fL (81-99); Mean Platelet Volume 12.3 fL (7.4-10.4); Monocytes # 0.5 10^3/uL (0.2-0.9); Monocytes % 6.2 %; Neutrophils # 4.56 10^3/uL (1.8-7.7); Neutrophils % 60.6 %; Nucleated Red Blood Cells % 0 %; Platelet Count 182 10^3/cmm (130-400); Red Cell Distribution Width 19.9 % (12.1-15.1); White Blood Count 7.5 10^3/uL (4.0-10.0)
[2021-03-12 05:23] LABS: Albumin Level 1.9 g/dL (3.5-5.2); Alkaline Phosphatase 229 IU/L (35-105); Blood Urea Nitrogen 14 mg/dL (6-20); Calcium 6.2 mg/dL (8.5-10.5); Carbon Dioxide 24 mmol/L (22-29); Chloride 106 mmol/L (98-107); Globulin 3.1 g/dL (1.3-4.6); Glomerular Filtration Rate 12.4 mL/min (90-130); Glucose 90 mg/dL (65-115); Osmolality Calculated 292 mOsm/kg (285-295); Sodium 141 mmol/L (136-145); Total Bilirubin 0.9 mg/dL (0.15-1.2)
[2021-03-12] MEDS: levothyroxine 75 mcg Tablet PO (06:06)
[2021-03-12] MEDS: thiamine 100 mg Tablet PO (06:06)
[2021-03-12] MEDS: heparin 5,000 unit/mL INJ 1 mL 5000 UNIT SUBCUT ×2 (06:30→20:45)
[2021-03-12] MEDS: cholecalciferol (vitamin D3) 5,000 unit Tablet 5000 UNIT PO (06:41)
[2021-03-12 06:46] LABS: Alanine Aminotransferase 88 U/L (0-33); Anion Gap 16.2 (5-19); Aspartate Amino Transferase 149 U/L (0-32); Potassium 5.2 mmol/L (3.5-5.1)
[2021-03-12 06:48] LABS: Creatine Phosphokinase 964 U/L (26-192)
[2021-03-12] MEDS: docusate sodium 100 mg Capsule PO ×2 (08:47→17:41)
[2021-03-12] MEDS: levETIRAcetam 500 mg Tablet 1000 MG PO ×2 (08:47→20:44)
[2021-03-12 08:51] LABS: Glucose Point of Care 84 mg/dL (70-110)
--- NOTE | 2021-03-12 11:00 | PC.NURSE ---
Dr Almonte notified of pt's multiple pressure areas all over body. Dr at bedside and viewing areas of concern.
[2021-03-12 11:28] LABS: ABG PCO2 50.7 mmHg (35-45); ABG PH Result 7.29 (7.35-7.45); Arterial Blood Gas Hematocrit 26.8 % (37-47); Base Excess ABG -2.6 mmol/L (-2.0-2.0); Blood Gas Allen Test Pos; Blood Gas Sample Site Radial, right; Blood Gas Sample Type Arterial; HCO3 ABG 24.2 mmol/L (22-26); Oxygen Device NC; PO2 ABG 94.6 mmHg (80.0-100.0)
--- NOTE | 2021-03-12 12:30 | PC.NURSE ---
Pt pulled out IV line. Attempting to start line.
--- NOTE | 2021-03-12 13:20 | PC.SOCIAL ---
IMM Update Pg. 2 of IMM updated and reviewed with patient. Copy provided.
[2021-03-12 13:30] LABS: Glucose Point of Care 74 mg/dL (70-110)
[2021-03-12] MEDS: fluconazole premix 100 MG in empty flexible container 1 EACH 50 MG IV (14:27)
--- NOTE | 2021-03-12 15:30 | PC.NURSE ---
In-person report given to [facility]'s NENA Calderon.
[2021-03-12] MEDS: diphenhydrAMINE 50 mg/mL SDV 1mL 25 MG IVP ×2 (15:33→20:44)
--- NOTE | 2021-03-12 15:45 | PC.NURSE ---
Pt transferred to CSU via bed. Pt walked approximately 4 feet to bed with walker. Tolerated transfer well. NENA Calderon at bedside.
--- NOTE | 2021-03-12 16:15 | PC.NURSE ---
Nystatin powder, triple antibiotic ointment and IV antibiotic delivered to ICU via pharmacy manager. Immediately walked to CSU as meds are due and nurses have been waiting on meds for administration prior to transfer.
[2021-03-12] MEDS: nystatin powder 15 gm Btl 1 APPLIC TOPICAL (17:13)
[2021-03-12] MEDS: neomycin-poly-bacitracin oint 28 gm 1 APPLIC TOPICAL (17:14)
[2021-03-12] MEDS: cefTRIAXone 1,000 MG in sodium chloride 0.9% (plus) 50 ML 100 MG IV (17:41)
[2021-03-12] MEDS: midodrine 5 mg TABLET 10 MG PO ×2 (17:41→20:44)
--- NOTE | 2021-03-12 18:59 | PM.PN ---
Subjective Subjective: Interval history: Last night patient was hypotensive, and slightly volume overloaded secondary to, PRBC transfusion, she was transferred to ICU for being placed on Levophed as well as for IV diuresis, she was on Levophed transiently, after that she was able to maintain her MAP. She has been started on midodrine, and Levophed has been stopped. Currently she is saturating well on 3.5 L oxygens through nasal cannula. Medications: Reviewed: Yes Vitals/I&O/Wt Last Vital Signs Temp 97.7 F 03/11/21 23:50 Pulse 94 03/12/21 18:26 Resp 18 03/12/21 18:26 BP 95/67 03/12/21 12:00 Pulse Ox 96 03/12/21 18:26 03/12/21 03/12/21 03/12/21 06:59 14:59 22:59 Intake Total 103.175 / 2028.175 224.14 / 224.14 1100 / 1324.14 Output Total 450 / 650 Balance -346.825 / 1378.175 224.14 / 224.14 1100 / 1324.14 Weight last 48 hrs Weight 109.344 kg Weight 108.454 kg Weight 108.21 kg Physical Exam Narrative: EXAM NARRATIVE: Alert and awake HENMT: COMMON NORMALS: normocephalic and atraumatic HEAD & SCALP: normocephalic and atraumatic Resp: COMMON NORMALS: clear to auscultation bilaterally AUSCULTATION: clear to auscultation bilaterally Cardio: COMMON NORMALS: regular rate, regular rhythm, S1 normal heart sound present, S2 normal heart sound present, No gallops present (Cardio), No murmurs present (Cardio), No rub (Cardio) and Peripheral pulses 2+ throughout RATE: regular rate RHYTHM: regular rhythm HEART SOUNDS: S1 normal heart sound present and S2 normal heart sound present PERIPHERAL PULSES: Peripheral pulses 2+ throughout GI: COMMON NORMALS: Normal to inspection, nondistended, normoactive bowel sounds present, Soft to palpation, non-tender, No hepatosplenomegaly present and no masses AUSCULTATION: Yes normoactive bowel sounds PALPATION: Yes Soft to palpation and Yes No hepatosplenomegaly present RECTAL EXAM: deferred Extremity: OTHER: Extensive stasis changes to both lower extremities distally with hyperkeratosis of the skin. Urinary Catheter Management^: Cosme: Cath Placed During This Visit: yes Reason for Continuing Indwelling Catheter: Accurate Measurement of Urinary Output in Critically Ill Patients Urinary Catheter Date of Insertion: 03/10/21 Urinary Catheter Time of Insertion: 10:08 Data : 03/12/21 04:07 03/12/21 04:07 Micro: Microbiology 03/12/21 13:50 Occult Blood (FIT) - Final Stool Routine Collection A&P Assessment and plan (1) Acute metabolic encephalopathy: Multifactorial: Secondary to TRENTON on CKD, metabolic acidosis. Resolved currently she is at her baseline mentation. Status: Acute (2) Acute kidney injury: TRENTON on CKD stage III: Likely prerenal: Baseline serum creatinine: Is around 1.5-2 Admission serum creatinine:5.2 Current serum creatinine is 3.9. Currently she has been adequately hydrated. Serum creatinine is trending down. Given the fact that she net 6.6 ls positive, and slightly wet. Total urine output since admission 1.6 Ls Bumex 1 mg IV daily has been resumed. Monitor intake output Monitor BMP Renal dosing of the medication. Avoid nephrotoxic's Status: Acute (3) Pressure ulcers of skin of multiple topographic sites: Appropriate wound care in place (OPTi foam, triple antibiotics) Empirically on ceftriaxone. Status: Acute (4) UTI (urinary tract infection): Urine culture is growing yeast; Currently on fluconazole. Continue ceftriaxone Status: Acute (5) Anemia: Likely Anemia of Chronic Disease. S/P 1 U PRBC transfusion. Currently H&H is stable Monitor CBC FOBT : Positive Status: Acute (6) Rhabdomyolysis: Presumptively from lying in her 's truck all day in the heat. Monitor CPK I/O Charting Status: Acute Qualifiers: Rhabdomyolysis type: non-traumatic Qualified Code(s): M62.82 - Rhabdomyolysis (7) Hypoglycemia: Status: Acute (8) Congestive heart failure: Currently with anasarca. Continue Bumex 1 mg IV daily Continue midodrine 10 mg 3 times daily as the blood pressure is on the softer side. Status: Chronic Qualifiers: Heart failure chronicity: acute on chronic Heart failure type: diastolic Qualified Code(s): I50.33 - Acute on chronic diastolic (congestive) heart failure (9) COPD (chronic obstructive pulmonary disease): Status: Acute Qualifiers: COPD type: unspecified COPD Qualified Code(s): J44.9 - Chronic obstructive pulmonary disease, unspecified (10) Hypothyroidism: Status: Chronic Qualifiers: Hypothyroidism type: unspecified Qualified Code(s): E03.9 - Hypothyroidism, unspecified Additional A&P Information History of DVT, PE with IVC filter and recent reinitiation of anticoagulation described History of GI bleeding History of chronic abdominal pain Extensive rash lately that was felt to be due to Lasix allergy History of alcohol dependence History of endocarditis, bacteremia, urinary tract infections, cellulitis, line infections Multiple other comorbid conditions as noted above deviously well documented in the records Inpatient admission IV fluids Check urinalysis Recheck CK and renal function in the morning Monitor blood pressures closely Cosme catheter for close monitoring of urine output We will need diuresis at some point in time If does not improve with IV fluids consider nephrology consultation Monitor blood sugars Continue oxygen, breathing treatments if needed Hold most home medications currently until starts to show signs of improvement Will provide some Vistaril for itching Need to clarify current home medication list since she left the half-way We will need to monitor peripheral IV access, we were able to get a line placed in the ED which she quickly pulled out; aware lab draws and IVs are challenging with Mrs. Mckeon Subcu heparin for DVT prophylaxis currently, I am unclear if she is taking Eliquis or not Supportive care otherwise Anticipated disposition is wherever Mrs. Mckeon will agree to when she is medically stable. She typically refuses to go to skilled facility and when she does she leaves it shortly thereafter. I do not know that there is much that we can do to change her current health care course for the better though we do repeatedly try. Full code Attestations Medical Necessity Statement*: Patient needs to be in hospital for management of TRENTON on CKD, metabolic encephalopathy, anemia. Coding Level of Care Code Acute Regenerator Operator for [facility] Fwd Diagnoses Acute metabolic encephalopathy G93.41 Acute kidney injury N17.9 Pressure ulcers of skin of multiple topographic sites L89.90 UTI (urinary tract infection) N39.0 Anemia D64.9 Rhabdomyolysis M62.82 Rhabdomyolysis type: non-traumatic Hypoglycemia E16.2 Congestive heart failure I50.33 Heart failure chronicity: acute on chronic Heart failure type: diastolic COPD (chronic obstructive pulmonary disease) J44.9 COPD type: unspecified COPD Hypothyroidism E03.9 Hypothyroidism type: unspecified
[2021-03-12 22:22] LABS: Glucose Point of Care 91 mg/dL (70-110)
[2021-03-13] VITALS (24 sets, daily range): BP systolic 82–105; BP diastolic 52–73; PULSE 75–86; RESP 7–24; TEMP 36.6–37.2; O2SAT 93–100
[2021-03-13 04:22] LABS: Basophils # 0.1 10^3/uL (0.0-0.1); Basophils % 1.2 %; Eosinophils # 1.2 10^3/uL (0.0-0.8); Eosinophils % 20.4 %; Hematocrit 30.1 % (37.0-47.0); Lymphocytes # 1.2 10^3/uL (0.8-4.8); Lymphocytes % 20.6 %; Mean Corpuscular HGB Conc 29.9 g/dL (30.0-36.0); Mean Corpuscular Volume 93.8 fL (81-99); Mean Platelet Volume 12.2 fL (7.4-10.4); Monocytes # 0.5 10^3/uL (0.2-0.9); Monocytes % 7.9 %; Neutrophils # 2.89 10^3/uL (1.8-7.7); Neutrophils % 49.7 %; Nucleated Red Blood Cells % 0 %; Platelet Count 160 10^3/cmm (130-400); Red Blood Count 3.21 10^6/uL (4.1-5.3); Red Cell Distribution Width 19.6 % (12.1-15.1); White Blood Count 5.8 10^3/uL (4.0-10.0)
[2021-03-13] MEDS: diphenhydrAMINE 50 mg/mL SDV 1mL 25 MG IVP ×3 (04:32→18:55)
[2021-03-13] MEDS: cholecalciferol (vitamin D3) 5,000 unit Tablet 5000 UNIT PO (04:32)
[2021-03-13] MEDS: thiamine 100 mg Tablet PO (04:33)
[2021-03-13] MEDS: levothyroxine 75 mcg Tablet PO (04:33)
[2021-03-13 04:41] LABS: Alanine Aminotransferase 69 U/L (0-33); Albumin Level 1.8 g/dL (3.5-5.2); Alkaline Phosphatase 196 IU/L (35-105); Anion Gap 15.6 (5-19); Aspartate Amino Transferase 83 U/L (0-32); Blood Urea Nitrogen 13 mg/dL (6-20); Carbon Dioxide 24 mmol/L (22-29); Chloride 108 mmol/L (98-107); Globulin 2.6 g/dL (1.3-4.6); Glomerular Filtration Rate 15.1 mL/min (90-130); Glucose 59 mg/dL (65-115); Osmolality Calculated 296 mOsm/kg (285-295); Potassium 3.6 mmol/L (3.5-5.1); Sodium 144 mmol/L (136-145); Total Bilirubin 0.6 mg/dL (0.15-1.2); Total Protein 4.4 g/dL (6.6-8.7)
[2021-03-13 05:08] LABS: Calcium 5.7 mg/dL (8.5-10.5); Creatine Phosphokinase 622 U/L (26-192)
[2021-03-13 06:55] LABS: Glucose Point of Care 68 mg/dL (70-110)
[2021-03-13] MEDS: levETIRAcetam 500 mg Tablet 1000 MG PO ×2 (08:21→21:07)
[2021-03-13] MEDS: docusate sodium 100 mg Capsule PO (08:21)
[2021-03-13] MEDS: heparin 5,000 unit/mL INJ 1 mL 5000 UNIT SUBCUT (08:22)
[2021-03-13] MEDS: bumetanide 0.25 mg/mL SDV 4 mL 1 MG IV (08:22)
[2021-03-13] MEDS: midodrine 5 mg TABLET 10 MG PO ×3 (08:22→21:07)
--- NOTE | 2021-03-13 09:05 | P.PN_ITS ---
Subjective Subjective: Interval history: Overnight, the patient's BP has been intermittently hypotensive but improved w/ midodrine. She has had an episode of hypoglycemia. She endorsed feeling tight all over especially in her hip and heels. She endorsed shortness of breath, endorse chest pain if she moved as well as palpitations and dizziness if she moved. She denied any fever chills nausea vomiting abdominal pain. Endorses poor p.o. intake. Vitals/I&O/Wt Last Vital Signs Temp 98.4 F 03/13/21 03:07 Pulse 80 03/13/21 08:27 Resp 18 03/13/21 08:27 BP 92/52 03/13/21 04:00 Pulse Ox 98 03/13/21 08:27 03/12/21 03/13/21 03/13/21 22:59 06:59 14:59 Intake Total 1100 / 1324.14 Output Total 1200 / 1200 Balance 1100 / 1324.14 -1200 / 124.14 Weight last 48 hrs Weight 113.897 kg Weight 109.344 kg Physical Exam Const: COMMON NORMALS: no acute distress and patient oriented x3 GENERAL APPEARANCE: cooperative NUTRITIONAL APPEARANCE: overweight ORIENTATION/CONSCIOUSNESS: Yes awake, Yes oriented to person and Yes oriented to place HENMT: COMMON NORMALS: normocephalic, atraumatic, external ears normal and Normal external nose present HEAD & SCALP: normocephalic and atraumatic FA CE & SINUS: normal facial exam NOSE: Normal external nose present EXTERNAL EAR: Yes external ears normal MOUTH: Normal oral and palatal mucosa present Eye: COMMON NORMALS: Equal, round and reactive pupils present and conjunctivae normal CONJUNCTIVA: Yes conjunctivae normal PUPIL: Yes Equal, round and reactive pupils present EOM: No EOM abnormal Neck/C-Spine: COMMON NORMALS: Thyroid normal GENERAL: Yes trachea midline, No anterior neck swelling and No lymphadenopathy THYROID: Thyroid normal Resp: AUSCULTATION: diminished lung sounds bilateral in the lower lung hernandez Cardio: COMMON NORMALS: regular rate and regular rhythm RATE: regular rate RHYTHM: regular rhythm HEART SOUNDS: no click, no gallops, no murmurs and no rubs GI: COMMON NORMALS: Soft to palpation and No hepatosplenomegaly present PALPATION: Yes Soft to palpation, No Firmness to palpation present (GI), No Tenderness to palpation present (GI), No Guarding due to palpation present (GI), No Rigid due to palpation and Yes No hepatosplenomegaly present Extremity: GENERAL: No clubbing, No cyanosis and Yes edema (3+ pitting dependent edema to the lower abdomen) Neuro: COMMON NORMALS: patient oriented x3 SENSORIUM/ORIENTATION: Yes oriented to person and Yes oriented to place CRANIAL NERVES: Yes CN normal except as noted GAIT: Yes Unable to assess gait Psych: ATTITUDE: Yes calm ACTIVITY/MOTOR BEHAVIOR: Yes appropriate eye contact SPEECH: Yes slow MOOD & AFFECT: Yes euthymic mood Skin: WOUNDS: Yes wounds noted (R. heel, R. buttock (stage 2)) Urinary Catheter Management^: Cosme: Cath Placed During This Visit: yes Reason for Continuing Indwelling Catheter: Accurate Measurement of Urinary Output in Critically Ill Patients Urinary Catheter Date of Insertion: 03/10/21 Urinary Catheter Time of Insertion: 10:08 Data : 03/13/21 03:54 03/13/21 03:54 Micro: Microbiology 03/12/21 13:50 Occult Blood (FIT) - Final Stool Routine Collection A&P Assessment and plan (1) Hypotension: Status: Acute (2) Pressure ulcers of skin of multiple topographic sites: Status: Acute (3) UTI (urinary tract infection): Status: Acute (4) Volume overload: Status: Acute (5) Anemia: Status: Acute Qualifiers: Iron deficiency anemia type: chronic blood loss (6) Hypoglycemia: Status: Acute (7) Hypothyroidism: Status: Chronic Qualifiers: Hypothyroidism type: unspecified Qualified Code(s): E03.9 - Hy pothyroidism, unspecified (8) COPD (chronic obstructive pulmonary disease): Status: Acute Qualifiers: COPD type: unspecified COPD Qualified Code(s): J44.9 - Chronic obstructive pulmonary disease, unspecified (9) Acute metabolic encephalopathy: Status: Acute (10) Bipolar 1 disorder: Status: Chronic (11) Acute on chronic heart failure with preserved ejection fraction (HFpEF): Status: Acute (12) Acute kidney injury: Status: Acute Ms. Mckeon is a 45yo woman w/ multiple medical conditions including DM2, chronic HFpEF, GI bleed, and COPD, who presented to the ED on the evening of 03/09/2021, and was admitted in the early a.m. of 03/10/2021 for acute metabolic encephalopathy, Hypoglycemia, TRENTON on CKD with concern for rhabdomyolysis, and Acute on chronic HFpEF, after ED records indicated that she had been outside all day in the truck from 9 AM to 5 PM. Of note, the patient was hospitalized from 02/21 to 03/02/2021 for septic shock due to E. coli UTI and E. faecalis bacteremia. In the 02/21-03/02 hospitalization, patient was noted to have maggots in her and foot and extensive excoriations in her b/l LE extremities. See the H&P written on 03/10/2021 for further details. On admission, she was transfused prbc and given IVF. She was transferred to the ICU for hypotension and vol overload deemed to be due to 1 prbc transfusion. She briefly required Norepinephrine and was weaned to midodrine. She was transferred to back to the floor on 03/12/2021. # Acute metabolic encephalopathy #Hypotension - Multifactorial: Possible infectious vs TRENTON vs Acute on chronic HFpEF in the setting of Pulm HTN - Her TTE on 02/24 shows an EF of 55% w/ mild-moderate MV regurgitation. She has severe tricuspid regurge w/ PA pressures of 60mmHg concerning for pulmonary Hypertension. - Her HANY on 02/26/2021 shows no signs of endocarditis, but she may have an occu lt infection. Her UA on admission shows Yazmin Krusei so she was started on Diflucan on 03/12/2021 BID. - PLAN: Consulted ID, who recommended Caspofungin. Involvement appreciated. F/u BCx, Fungal cx, veous doppler US of the b/l LE, TSH/free T4, cortisol. - Continue Midodrine # Wounds - Stage 2 ulcers on L ischium, R. heel. - Ordered Dakins solution. Will attempt to reach wound care clinic and get phone recs. # Anasarca, Vol overload, Acute on chronic HF # Possible b/l LE lymphedema # TRENTON - Will consult Nephrology. - Per H&P, patient is allergic to Lasix, so she is on Bumetanide. #Anemia # Possible acute on chronic GI bleed - FOBT positive. Held subq heparin. F/u Iron studies. - Will order EGD on 03/14. - Started IV PPI BID # Hypoglycemia - Unclear cause again. Will order hypoglycemia protocol. # COPD - Will find out what pharmacy has b/c Incruse Ellipta is non-formulary DVT ppx: none for now. Attestations Medical Necessity Statement*: The patient requires continued hospitalization for her multiple medical issues that include acute metabolic encephalopathy, hypotension, hypoglycemia, and possible acute on chronic GI bleed. Coding Level of Care Code Acute Access Specialist for [facility] Fwd Diagnoses Hypotension I95.9 Pressure ulcers of skin of multiple topographic sites L89.90 UTI (urinary tract infection) N39.0 Volume overload E87.70 Anemia D64.9 Iron deficiency anemia type: chronic blood loss Hypoglycemia E16.2 Hypothyroidism E03.9 Hypothyroidism type: unspecified COPD (chronic obstructive pulmonary disease) J44.9 COPD type: unspecified COPD Acute metabolic encephalopathy G93.41 Bipolar 1 disorder F31.9 Acute on chronic heart failure with preserved ejection fraction (HFpEF) I50.33 Acute kidney injury N17.9
--- NOTE | 2021-03-13 09:17 | PC.NUTR ---
Nutrition assessment triggered d/t presence of stage 2 wounds. Will add Nepro with meals to provide additional kcal/protein to promote wound healing. Recommend to encourage po intakes of meals/supplements, and to encourage pt to limit intake of regular sodas or fast food.
[2021-03-13 10:58] LABS: Glucose Point of Care 83 mg/dL (70-110)
[2021-03-13 11:04] LABS: Calcium 5.9 mg/dL (8.5-10.5)
[2021-03-13 11:47] LABS: 25 Hydroxy Vitamin D 21 ng/mL (30-100); Magnesium 1.1 mg/dL (1.7-2.3); Phosphorus 5.2 mg/dL (2.5-4.5)
[2021-03-13 13:21] LABS: Ionized Calcium 0.7 mmol/L (1.1-1.4)
[2021-03-13 13:46] LABS: Parathyroid Hormone 114.5 pg/mL (15-65)
[2021-03-13] MEDS: fluconazole premix 100 MG in empty flexible container 1 EACH 50 MG IV (14:51)
[2021-03-13] MEDS: cefTRIAXone 1,000 MG in sodium chloride 0.9% (plus) 50 ML 100 MG IV (16:29)
[2021-03-13 17:08] LABS: Glucose Point of Care 91 mg/dL (70-110)
--- NOTE | 2021-03-13 19:15 | CTR_ITS ---
PROCEDURE INFORMATION: Exam: CT Chest Without Contrast; Diagnostic Exam date and time: 03/13/2021 7:15 PM Age: 45 years old Clinical indication: Other: Uti/aneudy; Shortness of breath; Prior surgery; Additional info: UTI, aneudy, dyspnea TECHNIQUE: Imaging protocol: Diagnostic computed tomography of the chest without contrast. Radiation optimization: All CT scans at this facility use at least one of these dose optimization techniques: automated exposure control; mA and/or kV adjustment per patient size (includes targeted exams where dose is matched to clinical indication); or iterative reconstruction. COMPARISON: CT abdomen pelvis [facility] [id number] 02/21/2021 8:53 PM RADIATION DOSE METRICS: Total DLP (mGy-cm): 2367.86 FINDINGS: Lungs: Lower lobe compressive atelectasis. Mild emphysematous lung changes. Negative for endobronchial obstruction. No peripheral honeycombing. Pleural spaces: Small volume bilateral pleural effusions. Heart: Unremarkable. No cardiomegaly. No pericardial effusion. Mediastinal space: Large posterior mediastinal herniation of fat and partially the stomach. Aorta: Unremarkable. No aortic aneurysm. Lymph nodes: Unremarkable. No enlarged lymph nodes. Bones/joints: Unremarkable. No acute fracture. Soft tissues: Mild body wall anasarca. IMPRESSION: Nonspecific fluid overload changes. PROCEDURE INFORMATION: Exam: CT Abdomen And Pelvis Without Contrast Exam date and time: 03/13/2021 7:15 PM Age: 45 years old Clinical indication: Other: Uti/aneudy; Shortness of breath; Prior surgery; Additional info: UTI, aneudy, dyspnea TECHNIQUE: Imaging protocol: Computed tomography of the abdomen and pelvis without contrast. Radiation optimization: All CT scans at this facility use at least one of these dose optimization techniques: automated exposure control; mA and/or kV adjustment per patient size (includes targeted exams where dose is matched to clinical indication); or iterative reconstruction. COMPARISON: CT abdomen pelvis [facility] [id number] 02/21/2021 8:53 PM RADIATION DOSE METRICS: Total DLP (mGy-cm): 2367.86 FINDINGS: Liver: Hepatic steatosis. Gallbladder and bile ducts: Cholecystectomy. Negative for biliary system dilation. Pancreas: Normal. No ductal dilation. Spleen: Normal. No splenomegaly. Adrenal glands: Normal. No mass. Kidneys and ureters: Normal. No hydronephrosis. Stomach and bowel: Diverticulosis coli. No inflammatory bowel wall thickening. No focal bowel mass. Negative for obstruction. Negative for perforation. Appendix: No evidence of appendicitis. Intraperitoneal space: Unremarkable. No free air. Trace pelvic free fluid. Vasculature: Infrarenal IVC filter present. Abdominal aorta is nonaneurysmal. Lymph nodes: Unremarkable. No enlarged lymph nodes. Urinary bladder: Cosme catheter within bladder. Decompressed bladder. Reproductive: Hysterectomy. Bones/joints: Unremarkable. No acute fracture. Soft tissues: Body wall anasarca. CT/CT chest abd pel wo con IMPRESSION: Negative for acute abdominopelvic abnormality. COMMENTS: For patients with an IVC filter, recommend assessment for a management plan for the patient's IVC filter. If there is no established management plan, recommend referral to an interventional clinician on a nonemergent basis for evaluation. Radiation Dose CTDIVOL = (mGy): DLP = 2367.86~2367.86 (mGy-cm)
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
[2021-03-13 20:58] LABS: Glucose Point of Care 70 mg/dL (70-110)
[2021-03-13] MEDS: sodium hypochlorite 0.25% Btl 473 mL 1 APPLIC TOPICAL (21:06)
[2021-03-13] MEDS: pantoprazole 40 mg SDV IVP (21:07)
[2021-03-13] MEDS: TRAMadol 50 mg Tablet PO (23:17)
[2021-03-14] VITALS (34 sets, daily range): BP systolic 83–105; BP diastolic 43–64; PULSE 69–85; RESP 16–23; TEMP 36.3–36.6; O2SAT 84–99
[2021-03-14] MEDS: diphenhydrAMINE 50 mg/mL SDV 1mL 25 MG IVP ×4 (03:12→20:47)
[2021-03-14 05:19] LABS: Basophils # 0.1 10^3/uL (0.0-0.1); Basophils % 1.3 %; Eosinophils # 1.3 10^3/uL (0.0-0.8); Eosinophils % 24.9 %; Hematocrit 33.2 % (37.0-47.0); Hemoglobin 9.6 g/dL (11.5-15.3); Lymphocytes # 1.2 10^3/uL (0.8-4.8); Lymphocytes % 22.9 %; Mean Corpuscular HGB Conc 28.9 g/dL (30.0-36.0); Mean Corpuscular Hemoglobin 27.6 pg (28.0-34.0); Mean Corpuscular Volume 95.4 fL (81-99); Mean Platelet Volume 11.6 fL (7.4-10.4); Monocytes # 0.5 10^3/uL (0.2-0.9); Monocytes % 9.6 %; Neutrophils # 2.14 10^3/uL (1.8-7.7); Neutrophils % 40.9 %; Nucleated Red Blood Cells % 0 %; Platelet Count 203 10^3/cmm (130-400); Red Blood Count 3.48 10^6/uL (4.1-5.3); Red Cell Distribution Width 19.5 % (12.1-15.1); White Blood Count 5.2 10^3/uL (4.0-10.0)
[2021-03-14 05:55] LABS: Folate Level 10.5 ng/mL (4.8-37.3)
[2021-03-14 05:56] LABS: Alanine Aminotransferase 49 U/L (0-33); Albumin Level 1.7 g/dL (3.5-5.2); Alkaline Phosphatase 156 IU/L (35-105); Anion Gap 14.1 (5-19); Aspartate Amino Transferase 41 U/L (0-32); Blood Urea Nitrogen 13 mg/dL (6-20); Calcium 6.1 mg/dL (8.5-10.5); Carbon Dioxide 24 mmol/L (22-29); Chloride 106 mmol/L (98-107); Creatine Phosphokinase 305 U/L (26-192); Ferritin 248 ng/mL (15-150); Globulin 2.5 g/dL (1.3-4.6); Glomerular Filtration Rate 20.7 mL/min (90-130); Glucose 67 mg/dL (65-115); Iron 23 ug/dL (37-145); Magnesium 1.1 mg/dL (1.7-2.3); NT Pro B Type Natriuretic Pept 25868 pg/mL (0-125); Osmolality Calculated 290 mOsm/kg (285-295); Percent Saturation 22.7 % (20-50); Phosphorus 5.2 mg/dL (2.5-4.5); Potassium 3.1 mmol/L (3.5-5.1); Sodium 141 mmol/L (136-145); Thyroid Stimulating Hormone 55.89 uIU/mL (0.27-4.20); Total Bilirubin 0.4 mg/dL (0.15-1.2); Total Iron Binding Capacity 101 mcg/dl; Total Protein 4.2 g/dL (6.6-8.7); Unsaturated Iron Binding 78 ug/dL (112-347); Vitamin B12 1743 pg/mL (232-1245)
[2021-03-14] MEDS: levothyroxine 75 mcg Tablet PO (05:59)
[2021-03-14] MEDS: TRAMadol 50 mg Tablet PO ×2 (05:59→14:14)
[2021-03-14] MEDS: cholecalciferol (vitamin D3) 5,000 unit Tablet 5000 UNIT PO (06:00)
[2021-03-14] MEDS: thiamine 100 mg Tablet PO (06:00)
[2021-03-14 06:34] LABS: Glucose Point of Care 71 mg/dL (70-110)
[2021-03-14 06:38] LABS: Cortisol Random 5.12 ug/dL (2.47-19.5); Free T4 Free Thyroxine 0.43 ng/dL (0.82-1.77)
[2021-03-14] MEDS: pantoprazole 40 mg SDV IVP ×2 (08:53→20:47)
[2021-03-14] MEDS: potassium chloride ER 20 mEq Tablet 40 MEQ PO (08:53)
[2021-03-14] MEDS: bumetanide 0.25 mg/mL SDV 4 mL 1 MG IV (08:53)
[2021-03-14] MEDS: midodrine 5 mg TABLET 10 MG PO ×3 (08:54→20:47)
[2021-03-14] MEDS: levETIRAcetam 500 mg Tablet 1000 MG PO ×2 (08:55→20:47)
--- NOTE | 2021-03-14 09:02 | PC.SOCIAL ---
IMM update Gave pt an update of medicare rights. Verbalized understanding. Initialed, dated timed, copy placed in chart and given to pt.
[2021-03-14] MEDS: calcitriol 0.25 mcg Capsule 0.5 MCG PO ×2 (11:13→18:17)
[2021-03-14 11:31] LABS: Glucose Point of Care 101 mg/dL (70-110)
[2021-03-14] MEDS: neomycin-poly-bacitracin oint 28 gm 1 APPLIC TOPICAL (16:05)
[2021-03-14] MEDS: nystatin powder 15 gm Btl 1 APPLIC TOPICAL (16:05)
[2021-03-14] MEDS: magnesium sulfate premix 4 GM/100 ML PREMIX IV (16:20)
[2021-03-14 16:35] LABS: Glucose Point of Care 91 mg/dL (70-110)
--- NOTE | 2021-03-14 16:55 | PC.NURSE ---
Patient complained of pain at IV site when the IV magnesium was started at 50 ml/hr. Flushed with 20 ml of NS, and patient denied any pain with the flush. Lowered the IV rate to 35 ml/hr.
--- NOTE | 2021-03-14 19:13 | USCV_ITS ---
Mike Delores Age: 45 Gender: F : 1975 Exam Date: 03/14/2021 06:27 Ordering Phys: Evelin Hawley MD Technologist: SHARI Exam Location: [facility] [place] Indication: EDEMA PROCEDURES: Venous duplex imaging was performed in bilateral lower extremities. The following venous structures were evaluated: common femoral vein, profunda vein, proximal portion of the greater saphenous vein, superficial femoral vein, and the popliteal vein. In addition, the posterior tibial and peroneal trunk were evaluated. Serial compression, augmentation maneuvers, and spectral Doppler flow evaluation were performed. FINDINGS: Normal 2-D Doppler and augmentation and compressibility throughout the lower extremity venous structures. Additional imaging through the proximal calf veins also reveals no thrombus. Limited evaluation of the greater saphenous vein is patent with no thrombus.. CONCLUSIONS No evidence of right lower extremity DVT. No evidence of left lower extremity DVT. Carmine Blank MD (Electronically Signed) Final Date: 14 March 2021 12:28 S
[2021-03-14 20:22] LABS: Glucose Point of Care 128 mg/dL (70-110)
--- NOTE | 2021-03-14 20:32 | PC.NURSE ---
Tramadol q8 hours currently ordered. The patient is stating to me that the day shift doc told her she would order more pain medication for her. There is nothing else ordered. She requested that I ask the doctor for more pain medication. Dr. Smith notified.
[2021-03-14] MEDS: sodium hypochlorite 0.25% Btl 473 mL 1 APPLIC TOPICAL (20:47)
--- NOTE | 2021-03-14 21:39 | PC.NURSE ---
Patient states that she takes Oxycodone at home, however it is not on her home med list. Dr. Smith notified.
--- NOTE | 2021-03-14 21:45 | P.PN_ITS ---
Subjective Subjective: Interval history: Today She endorsed feeling pain in her hip and heels. She was given Trazodone overnight. She denies CP, palpitations, dizziness, light headedness, SOB. Medications: Reviewed: Yes Vitals/I&O/Wt Last Vital Signs Temp 97.4 F L 03/14/21 20:00 Pulse 78 03/14/21 20:27 Resp 16 03/14/21 20:27 BP 93/50 03/14/21 20:00 Pulse Ox 98 03/14/21 20:27 03/14/21 03/14/21 03/14/21 06:59 14:59 22:59 Intake Total 200 / 1090 120 / 120 400.000 / 520.000 Output Total 450 / 2930 800 / 800 600 / 1400 Balance -250 / -1840 -680 / -680 -200.000 / -880.000 Weight last 48 hrs Weight 113.806 kg Weight 113.897 kg Physical Exam Const: COMMON NORMALS: no acute distress and patient oriented x3 GENERAL APPEARANCE: cooperative NUTRITIONAL APPEARANCE: overweight ORIENTATION/CONSCIOUSNESS: Yes awake, Yes oriented to person and Yes oriented to place HENMT: COMMON NORMALS: normocephalic, atraumatic, external ears normal and Normal external nose present HEAD & SCALP: normocephalic and atraumatic FACE & SINUS: normal facial exam NOSE: Normal external nose present EXTERNAL EAR: Yes external ears normal MOUTH: Normal oral and palatal mucosa present Eye: COMMON NORMALS: Equal, round and reactive pupils present and conjunctivae normal CONJUNCTIVA: Yes conjunctivae normal PUPIL: Yes Equal, round and reactive pupils present EOM: No EOM abnormal Neck/C-Spine: COMMON NORMALS: Thyroid normal GENERAL: Yes trachea midline, No anterior neck swelling and No lymphadenopathy THYROID: Thyroid normal Resp: AUSCULTATION: diminished lung sounds bilateral in the lower lung hernandez Cardio: COMMON NORMALS: regular rate and regular rhythm RATE: regular rate RHYTHM: regular rhythm HEART SOUNDS: no click, no gallops, no murmurs and no rubs GI: COMMON NORMALS: Soft to palpation and No hepatosplenomegaly present PALPATION: Yes Soft to palpation, No Firmness to palpation present (GI), No Tenderness to palpation present (GI), No Guarding due to palpation present (GI), No Rigid due to palpation and Yes No hepatosplenomegaly present Extremity: GENERAL: No clubbing, No cyanosis and Yes edema (3+ pitting dependent edema to the lower abdomen) Neuro: COMMON NORMALS: patient oriented x3 SENSORIUM/ORIENTATION: Yes oriented to person and Yes oriented to place CRANIAL NERVES: Yes CN normal except as noted GAIT: Yes Unable to assess gait Psych: ATTITUDE: Yes calm ACTIVITY/MOTOR BEHAVIOR: Yes appropriate eye contact SPEECH: Yes slow MOOD & AFFECT: Yes euthymic mood Skin: WOUNDS: Yes wounds noted (R. heel, R. buttock (stage 2)) Urinary Catheter Management^: Cosme: Cath Placed During This Visit: yes Reason for Continuing Indwelling Catheter: Accurate Measurement of Urinary Output in Critically Ill Patients Urinary Catheter Date of Insertion: 03/10/21 Urinary Catheter Time of Insertion: 10:08 Data : 03/14/21 04:30 03/14/21 04:30 Micro: Microbiology 03/13/21 20:37 Blood Culture - Preliminary Blood NEGATIVE TO DATE 03/13/21 20:33 Blood Culture - Preliminary Blood NEGATIVE TO DATE A&P Assessment and plan (1) Hypotension: Status: Acute (2) Pressure ulcers of skin of multiple topographic sites: Status: Acute (3) UTI (urinary tract infection): Status: Acute (4) Volume overload: Status: Acute (5) Anemia: Status: Acute Qualifiers: Iron deficiency anemia type: chronic blood loss (6) Hypoglycemia: Status: Acute (7) Hypothyroidism: Status: Chronic Qualifiers: Hypothyroidism type: unspecified Qualified Code(s): E03.9 - Hypothyroidism, unspecified (8) COPD (chronic obstructive pulmonary disease): Status: Acute Qualifiers: COPD type: unspecified COPD Qualified Code(s): J44.9 - Chronic obstructive pulmonary disease, unspecified (9) Acute metabolic encephalopathy: Status: Acute (10) Bipolar 1 disorder: Status: Chronic (11) Acute on chronic heart failure with preserved ejection fraction (HFpEF): Status: Acute (12) Acute kidney injury: Status: Acute Ms. Mckeon is a 45yo woman w/ multiple medical conditions including DM2, chronic HFpEF, GI bleed, and COPD, who presented to the ED on the evening of 03/09/2021, and was admitted in the early a.m. of 03/10/2021 for acute metabolic encephalopathy, Hypoglycemia, [place] on CKD with concern for rhabdomyolysis, and Acute on chronic HFpEF, after ED records indicated that she had been outside all day in the truck from 9 AM to 5 PM. Of note, the patient was hospitalized from 02/21 to 03/02/2021 for septic shock due to E. coli UTI and E. faecalis bacteremia. In the 02/21-03/02 hospitalization, patient was noted to have maggots in her and foot and extensive excoriations in her b/l LE extremities. See the H&P written on 03/10/2021 for further details. On admission, she was transfused prbc and given IVF. She was transferred to the ICU for hypotension and vol overload deemed to be due to 1 prbc transfusion. She briefly required Norepinephrine and was weaned to midodrine. She was transferred to back to the floor on 03/12/2021. # Acute metabolic encephalopathy #Hypotension - Multifactorial: Possible infectious vs TRENTON vs Acute on chronic HFpEF in the setting of Pulm HTN - Her TTE on 02/24 shows an EF of 55% w/ mild-moderate MV regurgitation. She has severe tricuspid regurge w/ PA pressures of 60mmHg concerning for pulmonary Hypertension. - Her HANY on 02/26/2021 shows no signs of endocarditis, but she may have an occult infection. Her UA on admission shows Yazmin Krusei so she was started on Diflucan on 03/12/2021 BID. - PLAN: Consulted ID, who recommended Caspofungin. Involvement appreciated. F/u BCx, Fungal cx, TSH/free T4, cortisol. - Continue Midodrine #Severe hypothyroidism, Myxedema of the legs. # Possible Adrenal insufficiency - Random cortisol drawn unfortunately at 4am is suggestive of Adrenal insufficiency. More over, patient's symptoms of hypoglycemia, hypotension, suggests that she may have hypoglycemia. - Will order Cosyntropin stimulation test for 8am on 03/15/2021. # Wounds - Stage 2 ulcers on L ischium, R. heel. - Ordered Dakins solution. Will attempt to reach wound care clinic and get phone recs. # Anasarca, Vol overload, Acute on chronic HF # Possible b/l LE lymphedema # [place] - Was planning on consulting nephrology, but patient's renal fxn continues to improve, so will hold for now. . - Per H&P, patient is allergic to Lasix, so she is on Bumetanide. - Venous doppler of b/l LE showing no signs of DVT. #Anemia # Possible acute on chronic GI bleed - FOBT positive. Held subq heparin. F/u Iron studies. - Will order EGD on 03/14. - Started IV PPI BID # Hypoglycemia - Unclear cause again. Will order hypoglycemia protocol. # COPD - Will find out what pharmacy has b/c Incruse Ellipta is non-formulary. Will order [place]. DVT ppx: none for now. Attestations Medical Necessity Statement*: The patient requires continued hospitalization for her volume overload, hypertension, severe hypothyroidism, requirement for a cosyntropin stimulation test to evaluate for adrenal insufficiency. Coding Level of Care Code Acute Wildfire Prevention Specialist for g Fwd Diagnoses Hypotension I95.9 Pressure ulcers of skin of multiple topographic sites L89.90 UTI (urinary tract infection) N39.0 Volume overload E87.70 Anemia D64.9 Iron deficiency anemia type: chronic blood loss Hypoglycemia E16.2 Hypothyroidism E03.9 Hypothyroidism type: unspecified COPD (chronic obstructive pulmonary disease) J44.9 COPD type: unspecified COPD Acute metabolic encephalopathy G93.41 Bipolar 1 disorder F31.9 Acute on chronic heart failure with preserved ejection fraction (HFpEF) I50.33 Acute kidney injury N17.9
[2021-03-14] MEDS: oxyCODONE 5 mg IR Tab/Cap PO (22:09)
[2021-03-15] VITALS (26 sets, daily range): BP systolic 87–121; BP diastolic 50–64; PULSE 80–104; RESP 13–30; TEMP 36.3–36.8; O2SAT 92–100
--- NOTE | 2021-03-15 00:41 | PC.NURSE ---
Dr. Smith notified that patient's IV to right chest infiltrated. IV was started with IV ultrasound by ICU nurse and it immediately infiltrated. ED was asked to try with ultrasound machine and they stated the ED nurse and doctor had both already tried on this patient within the last couple of days. Caspofungin IV was not able to finish infusing before IV infiltrated. Dr. Smith notified. Ordered okay to leave IV out. Ordered okay to change IV Benadryl to PO.
[2021-03-15] MEDS: diphenhydrAMINE 25 mg Capsule PO ×3 (01:00→22:09)
[2021-03-15] MEDS: TRAMadol 50 mg Tablet PO ×3 (01:00→22:08)
--- NOTE | 2021-03-15 02:01 | PC.NURSE ---
Patient is currently resting with eyes closed. Will monitor.
--- NOTE | 2021-03-15 05:56 | PC.NURSE ---
Lab and nurse unable to obtain lab draw for AM labs at this time.
[2021-03-15] MEDS: cholecalciferol (vitamin D3) 5,000 unit Tablet 5000 UNIT PO (05:58)
[2021-03-15] MEDS: oxyCODONE 5 mg IR Tab/Cap PO ×2 (05:58→15:58)
[2021-03-15] MEDS: levothyroxine 75 mcg Tablet PO (05:58)
[2021-03-15] MEDS: thiamine 100 mg Tablet PO (05:58)
[2021-03-15 06:52] LABS: Glucose Point of Care 92 mg/dL (70-110)
--- NOTE | 2021-03-15 08:08 | PC.NURSE ---
Pt lying in bed eating breakfast and talking to staff. Pt resp even and non-labored no distress noted. Pt O2 at 2.5 Lpm via nc. Pt had no c/o pain or discomfort at the present time. No needs voiced. Call light in reach.
[2021-03-15 09:08] LABS: Basophils # 0.1 10^3/uL (0.0-0.1); Basophils % 1.2 %; Eosinophils # 1.1 10^3/uL (0.0-0.8); Eosinophils % 21.3 %; Hematocrit 30.5 % (37.0-47.0); Hemoglobin 9.2 g/dL (11.5-15.3); Lymphocytes # 1.1 10^3/uL (0.8-4.8); Lymphocytes % 22.3 %; Mean Corpuscular HGB Conc 30.2 g/dL (30.0-36.0); Mean Platelet Volume 10.9 fL (7.4-10.4); Monocytes # 0.5 10^3/uL (0.2-0.9); Monocytes % 10.8 %; Neutrophils % 44.2 %; Nucleated Red Blood Cells % 0 %; Platelet Count 226 10^3/cmm (130-400); Red Blood Count 3.28 10^6/uL (4.1-5.3); Red Cell Distribution Width 18.8 % (12.1-15.1)
[2021-03-15 09:23] LABS: Creatine Phosphokinase 181 U/L (26-192)
[2021-03-15 09:24] LABS: Alanine Aminotransferase 38 U/L (0-33); Albumin Level 1.5 g/dL (3.5-5.2); Alkaline Phosphatase 142 IU/L (35-105); Anion Gap 11.3 (5-19); Aspartate Amino Transferase 20 U/L (0-32); Blood Urea Nitrogen 9 mg/dL (6-20); Calcium 6.1 mg/dL (8.5-10.5); Carbon Dioxide 25 mmol/L (22-29); Chloride 104 mmol/L (98-107); Globulin 2.6 g/dL (1.3-4.6); Glomerular Filtration Rate 32.4 mL/min (90-130); Glucose 100 mg/dL (65-115); Magnesium 1.4 mg/dL (1.7-2.3); Osmolality Calculated 283 mOsm/kg (285-295); Phosphorus 4.2 mg/dL (2.5-4.5); Potassium 3.3 mmol/L (3.5-5.1); Sodium 137 mmol/L (136-145); Total Bilirubin 0.4 mg/dL (0.15-1.2); Total Protein 4.1 g/dL (6.6-8.7)
[2021-03-15] MEDS: levETIRAcetam 500 mg Tablet 1000 MG PO ×2 (09:29→20:31)
[2021-03-15] MEDS: docusate sodium 100 mg Capsule PO ×2 (09:30→18:58)
[2021-03-15] MEDS: midodrine 5 mg TABLET 10 MG PO ×3 (09:30→20:30)
[2021-03-15] MEDS: calcitriol 0.25 mcg Capsule 0.5 MCG PO ×2 (09:31→18:58)
[2021-03-15 09:37] LABS: Cosyntropin Baseline 5.29 mcg/dL
[2021-03-15] MEDS: cosyntropin 0.25 mg SDV IM (09:41)
[2021-03-15] MEDS: neomycin-poly-bacitracin oint 28 gm 1 APPLIC TOPICAL ×2 (09:44→20:32)
[2021-03-15] MEDS: nystatin powder 15 gm Btl 1 APPLIC TOPICAL ×2 (09:45→20:31)
[2021-03-15 10:32] LABS: Glucose Point of Care 104 mg/dL (70-110)
[2021-03-15 10:51] LABS: Cosyntropin 30 Minute 8.62 mcg/dL
[2021-03-15 11:29] LABS: Cosyntropin 1 Hour 9.57 mcg/dL
[2021-03-15] MEDS: ondansetron 2 mg/ML SDV 2 mL 4 MG IVP (15:58)
[2021-03-15 16:48] LABS: Glucose Point of Care 114 mg/dL (70-110)
--- NOTE | 2021-03-15 19:22 | P.PN_ITS ---
Subjective Subjective: Interval history: Today, the patient complained of bilateral leg pain such that she felt nauseous and could not eat. Denies any shortness of breath, chest pain, palpitations. When the patient was asked whether she was hypothyroid, she stated yes that she was hypothyroid, and that she normally took to 25 mcg of levothyroxine in addition to another 25 mcg of T3. According to her nurse, she has poor peripheral IV access, and consult for midline placement was placed. Medications: Reviewed: Yes Vitals/I&O/Wt Last Vital Signs Temp 98.3 F 03/15/21 15:35 Pulse 91 03/15/21 15:35 Resp 20 H 03/15/21 16:00 BP 87/58 03/15/21 15:35 Pulse Ox 96 03/15/21 15:35 03/15/21 03/15/21 03/15/21 06:59 14:59 22:59 Intake Total 150 / 720.000 700 / 700 360 / 1060 Output Total 500 / 1900 600 / 600 Balance -350 / -1180.000 700 / 700 -240 / 460 Weight last 48 hrs Weight 111.13 kg Weight 113.806 kg Physical Exam Const: COMMON NORMALS: no acute distress and patient oriented x3 GENERAL APPEARANCE: cooperative NUTRITIONAL APPEARANCE: overweight ORIENTATION/CONSCIOUSNESS: Yes awake, Yes oriented to person and Yes oriented to place HENMT: COMMON NORMALS: normocephalic, atraumatic, external ears normal and Normal external nose present HEAD & SCALP: normocephalic and atraumatic FACE & SINUS: normal facial exam NOSE: Normal external nose present EXTERNAL EAR: Yes external ears normal MOUTH: Normal oral and palatal mucosa present Eye: COMMON NORMALS: Equal, round and reactive pupils present and conjunctivae normal CONJUNCTIVA: Yes conjunctivae normal PUPIL: Yes Equal, round and reactive pupils present EOM: No EOM abnormal Neck/C-Spine: COMMON NORMALS: Thyroid normal GENERAL: Yes trachea midline, No anterior neck swelling and No lymphadenopathy THYROID: Thyroid normal Resp: AUSCULTATION: diminished lung sounds bilateral in the lower lung hernandez Cardio: COMMON NORMALS: regular rate and regular rhythm RATE: regular rate RHYTHM: regular rhythm HEART SOUNDS: no click, no gallops, no murmurs and no rubs GI: COMMON NORMALS: Soft to palpation and No hepatosplenomegaly present PALPATION: Yes Soft to palpation, No Firmness to palpation present (GI), No Tenderness to palpation present (GI), No Guarding due to palpation present (GI), No Rigid due to palpation and Yes No hepatosplenomegaly present Extremity: GENERAL: No clubbing, No cyanosis and Yes edema (3+ pitting depe ndent edema to the lower abdomen) Neuro: COMMON NORMALS: patient oriented x3 SENSORIUM/ORIENTATION: Yes oriented to person and Yes oriented to place CRANIAL NERVES: Yes CN normal except as noted GAIT: Yes Unable to assess gait Psych: ATTITUDE: Yes calm ACTIVITY/MOTOR BEHAVIOR: Yes appropriate eye contact SPEECH: Yes slow MOOD & AFFECT: Yes euthymic mood Skin: WOUNDS: Yes wounds noted (R. heel, R. buttock (stage 2)) Urinary Catheter Management^: Cosme: Cath Placed During This Visit: yes Reason for Continuing Indwelling Catheter: Other Urinary Catheter Date of Insertion: 03/10/21 Urinary Catheter Time of Insertion: 10:08 Data : 03/15/21 08:54 03/15/21 08:54 Micro: Microbiology 03/13/21 20:37 Blood Culture - Preliminary Blood NEGATIVE TO DATE 03/13/21 20:33 Blood Culture - Preliminary Blood NEGATIVE TO DATE A&P Assessment and plan (1) Hypotension: Status: Acute (2) Pressure ulcers of skin of multiple topographic sites: Status: Acute (3) UTI (urinary tract infection): Status: Acute (4) Volume overload: Status: Acute (5) Anemia: Status: Acute Qualifiers: Iron deficiency anemia type: chronic blood loss (6) Hypoglycemia: Status: Acute (7) Hypothyroidism: Status: Chronic Qualifiers: Hypothyroidism type: unspecified Qualified Code(s): E03.9 - Hypothyroidism, unspecified (8) COPD (chronic obstructive pulmonary disease): Status: Acute Qualifiers: COPD type: unspecified COPD Qualified Code(s): J44.9 - Chronic obstru ctive pulmonary disease, unspecified (9) Acute metabolic encephalopathy: Status: Acute (10) Bipolar 1 disorder: Status: Chronic (11) Acute on chronic heart failure with preserved ejection fraction (HFpEF): Status: Acute (12) Acute kidney injury: Status: Acute Ms. Mckeon is a 45yo woman w/ multiple medical conditions including DM2, chronic HFpEF, GI bleed, and COPD, who presented to the ED on the evening of 03/09/2021, and was admitted in the early a.m. of 03/10/2021 for acute metabolic encephalopathy, Hypoglycemia, [place] on CKD with concern for rhabdomyolysis, and Acute on chronic HFpEF, after ED records indicated that she had been outside all day in the truck from 9 AM to 5 PM. Of note, the patient was hospitalized from 02/21 to 03/02/2021 for septic shock due to E. coli UTI and E. faecalis bacteremia. In the 02/21-03/02 hospitalization, patient was noted to have maggots in her and foot and extensive excoriations in her b/l LE extremities. See the H&P written on 03/10/2021 for further details. On admission, she was transfused prbc and given IVF. She was transferred to the ICU for hypotension and vol overload deemed to be due to 1 prbc transfusion. She briefly required Norepinephrine and was weaned to midodrine. She was transferred to back to the floor on 03/12/2021. # Acute metabolic encephalopathy #Hypotension - Multifactorial: Possible infectious vs [place] vs Acute on chronic HFpEF in the setting of Pulm HTN - Her TTE on 02/24 shows an EF of 55% w/ mild-moderate MV regurgitation. She has severe tricuspid regurge w/ PA pressures of 60mmHg concerning for pulmonary Hypertension. - Her HANY on 02/26/2021 shows no signs of endocarditis, but she may have an occult infection. Her UA on admission shows Yazmin Krusei so she was started on Diflucan on 03/12/2021 BID. - PLAN: Consulted ID, who recommended Caspofungin. Involvement appreciated. F/u BCx, Fungal cx - Continue Midodrine #Severe hypothyroidism, Myxedema of the legs. # Possible Adrenal insufficiency -F/u Cosyntropin stimulation test for 8am on 03/15/2021. -Added 112.5 mcg of IV levothyroxine to be given at 6 AM daily. # Wounds - Stage 2 ulcers on L ischium, R. heel. - Ordered Dakins solution. Will attempt to reach wound care clinic and get phone recs. # Anasarca, Vol overload, Acute on chronic HF # Possible b/l LE lymphedema # [place] - Was planning on consulting nephrology, but patient's renal fxn continues to improve, so will hold for now.Cr of 1.7 - Per H&P, patient is allergic to Lasix, so she is on Bumetanide. - Venous doppler of b/l LE showing no signs of DVT. #Anemia # Possible acute on chronic GI bleed - FOBT positive. Held subq heparin. F/u Iron studies. - Will order EGD on 03/16. - Started IV PPI BID # Hypoglycemia - Unclear cause again. Will order hypoglycemia protocol. # COPD - Will find out what pharmacy has b/c Incruse Ellipta is non-formulary. Ordered Andrés. DVT ppx: none for now. With respect to dispo, patient Attestations 2 Medical Necessity Statement*: The patient requires continued hospitalization for her volume overload, hypotension, severe hypothyroidism, & evaluation of her adrenal insufficiency. Coding Level of Care Code Acute Audit Consultant for Chg Fwd Diagnoses Hypotension I95.9 Pressure ulcers of skin of multiple topographic sites L89.90 UTI (urinary tract infection) N39.0 Volume overload E87.70 Anemia D64.9 Iron deficiency anemia type: chronic blood loss Hypoglycemia E16.2 Hypothyroidism E03.9 Hypothyroidism type: unspecified COPD (chronic obstructive pulmonary disease) J44.9 COPD type: unspecified COPD Acute metabolic encephalopathy G93.41 Bipolar 1 disorder F31.9 Acute on chronic heart failure with preserved ejection fraction (HFpEF) I50.33 Acute kidney injury N17.9
[2021-03-15] MEDS: sodium hypochlorite 0.25% Btl 473 mL 1 APPLIC TOPICAL (20:31)
[2021-03-15] MEDS: pantoprazole 40 mg SDV IVP (20:31)
[2021-03-15 21:27] LABS: Glucose Point of Care 86 mg/dL (70-110)
[2021-03-15] MEDS: magnesium sulfate premix 4 GM/100 ML PREMIX IV (22:08)
--- NOTE | 2021-03-15 22:30 | PC.NURSE ---
Hylton was not fully clamped. Hylton leaked onto floor. Unable to measure. Closed system and hylton still intact.
[2021-03-16] VITALS (14 sets, daily range): BP systolic 96–121; BP diastolic 52–66; PULSE 81–91; RESP 16–22; TEMP 36.6–37; O2SAT 91–100
[2021-03-16] MEDS: potassium chloride premix 100 ML 25 MEQ IV (00:48)
[2021-03-16] MEDS: oxyCODONE 5 mg IR Tab/Cap PO ×3 (02:05→20:59)
[2021-03-16] MEDS: levothyroxine 75 mcg Tablet PO (05:12)
[2021-03-16] MEDS: cholecalciferol (vitamin D3) 5,000 unit Tablet 5000 UNIT PO (05:12)
[2021-03-16] MEDS: thiamine 100 mg Tablet PO (05:12)
[2021-03-16] MEDS: TRAMadol 50 mg Tablet PO (05:21)
[2021-03-16] MEDS: diphenhydrAMINE 25 mg Capsule PO (05:21)
--- NOTE | 2021-03-16 05:29 | PC.NURSE ---
Called Dr. Smith to clarify Synthroid orders. Ordered to clarify with day shift doctor.
[2021-03-16 05:47] LABS: Basophils # 0.1 10^3/uL (0.0-0.1); Eosinophils # 1.2 10^3/uL (0.0-0.8); Eosinophils % 21.1 %; Hematocrit 31.6 % (37.0-47.0); Hemoglobin 9.5 g/dL (11.5-15.3); Lymphocytes % 18.1 %; Mean Corpuscular HGB Conc 30.1 g/dL (30.0-36.0); Mean Corpuscular Hemoglobin 28.3 pg (28.0-34.0); Mean Platelet Volume 11.2 fL (7.4-10.4); Monocytes # 0.7 10^3/uL (0.2-0.9); Neutrophils # 2.72 10^3/uL (1.8-7.7); Neutrophils % 47.5 %; Nucleated Red Blood Cells % 0 %; Platelet Count 260 10^3/cmm (130-400); Red Blood Count 3.36 10^6/uL (4.1-5.3); Red Cell Distribution Width 18.4 % (12.1-15.1); White Blood Count 5.7 10^3/uL (4.0-10.0)
[2021-03-16 06:05] LABS: Alanine Aminotransferase 28 U/L (0-33); Albumin Level 1.6 g/dL (3.5-5.2); Alkaline Phosphatase 140 IU/L (35-105); Anion Gap 9.8 (5-19); Aspartate Amino Transferase 15 U/L (0-32); Blood Urea Nitrogen 6 mg/dL (6-20); Calcium 6.8 mg/dL (8.5-10.5); Carbon Dioxide 27 mmol/L (22-29); Chloride 106 mmol/L (98-107); Globulin 2.7 g/dL (1.3-4.6); Glomerular Filtration Rate 44.1 mL/min (90-130); Glucose 86 mg/dL (65-115); Osmolality Calculated 285 mOsm/kg (285-295); Potassium 3.8 mmol/L (3.5-5.1); Sodium 139 mmol/L (136-145); Total Bilirubin 0.4 mg/dL (0.15-1.2); Total Protein 4.3 g/dL (6.6-8.7)
[2021-03-16 06:06] LABS: Creatine Phosphokinase 102 U/L (26-192)
[2021-03-16 06:47] LABS: Glucose Point of Care 80 mg/dL (70-110)
[2021-03-16] MEDS: levETIRAcetam 500 mg Tablet 1000 MG PO ×2 (08:44→20:55)
[2021-03-16] MEDS: pantoprazole 40 mg SDV IVP ×2 (08:44→20:55)
[2021-03-16] MEDS: midodrine 5 mg TABLET 10 MG PO ×2 (08:44→15:37)
[2021-03-16] MEDS: calcitriol 0.25 mcg Capsule 0.5 MCG PO ×2 (08:45→17:41)
[2021-03-16] MEDS: nystatin powder 15 gm Btl 1 APPLIC TOPICAL ×2 (09:00→17:45)
[2021-03-16] MEDS: neomycin-poly-bacitracin oint 28 gm 1 APPLIC TOPICAL ×2 (09:00→17:45)
--- NOTE | 2021-03-16 09:17 | PC.SOCIAL ---
IMM Update Updated pt of medicare rights. Verbalized understanding. Gave pt a copy and placed initialed, dated, timed copy in pt's chart.
[2021-03-16 10:51] LABS: Glucose Point of Care 84 mg/dL (70-110)
[2021-03-16] MEDS: sodium hypochlorite 0.25% Btl 473 mL 1 APPLIC TOPICAL (12:00)
[2021-03-16] MEDS: ondansetron 2 mg/ML SDV 2 mL 4 MG IVP (12:22)
[2021-03-16 16:38] LABS: Glucose Point of Care 111 mg/dL (70-110)
--- NOTE | 2021-03-16 19:37 | PM.PN ---
Subjective Subjective: Interval history: I spoke with GI earlier in the day, who mentioned that she has the EGDs, up to 25, here and at outside hospitals, and every time he does an EGD on the patient, he generally notes some alcoholic gastritis, so an EGD will not be repeated. Patient complained of being weak and cold. She is very worried that she has a diagnosis of hypothyroidism. On discussion with her, she is very clear that she takes 225 mcg of levothyroxine at 6 AM on an empty stomach, and she states that she does not miss her medications. I also discussed her diagnosis of adrenal insufficiency and the results of the cosyntropin stimulation test. She also states that she is on 2 to 4 L of O2 at home. When Medications: Reviewed: Yes Vitals/I&O/Wt Last Vital Signs Temp 98.6 F 03/16/21 16:00 Pulse 87 03/16/21 16:00 Resp 20 H 03/16/21 16:00 BP 100/54 03/16/21 16:00 Pulse Ox 92 03/16/21 16:00 03/16/21 03/16/21 03/16/21 06:59 14:59 22:59 Intake Total 350 / 1810 240 / 240 Output Total 200 / 800 500 / 500 Balance 150 / 1010 240 / 240 -500 / -260 Weight last 48 hrs Weight 110.677 kg Weight 111.13 kg Physical Exam Const: COMMON NORMALS: no acute distress and patient oriented x3 GENERAL APPEARANCE: cooperative NUTRITIONAL APPEARANCE: overweight ORIENTATION/CONSCIOUSNESS: Yes awake, Yes oriented to person and Yes oriented to place HENMT: COMMON NORMALS: normocephalic, atraumatic, external ears normal and Normal external nose present HEAD & SCALP: normocephalic and atraumatic FACE & SINUS: normal facial exam NOSE: Normal external nose present EXTERNAL EAR: Yes external ears normal MOUTH: Normal oral and palatal mucosa present Eye: COMMON NORMALS: Equal, round and reactive pupils present and conjunctivae normal CONJUNCTIVA: Yes conjunctivae normal PUPIL: Yes Equal, round and reactive pupils present EOM: No EOM abnormal Neck/C-Spine: COMMON NORMALS: Thyroid normal GENERAL: Yes trachea midline, No anterior neck swelling and No lymphadenopathy THYROID: Thyroid normal Resp: AUSCULTATION: diminished lung sounds bilateral in the lower lung hernandez Cardio: COMMON NORMALS: regular rate and regular rhythm RATE: regular rate RHYTHM: regular rhythm HEART SOUNDS: no click, no gallops, no murmurs and no rubs GI: COMMON NORMALS: Soft to palpation and No hepatosplenomegaly present PALPATION: Yes Soft to palpation, No Firmness to palpation present (GI), No Tenderness to palpation present (GI), No Guarding due to palpation present (GI), No Rigid due to palpation and Yes No hepatosplenomegaly present Extremity: GENERAL: No clubbing, No cyanosis and Yes edema (3+ pitting dependent edema to the lower abdomen) Neuro: COMMON NORMALS: patient oriented x3 SENSORIUM/ORIENTATION: Yes oriented to person and Yes oriented to place CRANIAL NERVES: Yes CN normal except as noted GAIT: Yes Unable to assess gait Psych: ATTITUDE: Yes calm ACTIVITY/MOTOR BEHAVIOR: Yes appropriate eye contact SPEECH: Yes slow MOOD & AFFECT: Yes euthymic mood Skin: WOUNDS: Yes wounds noted (R. heel, R. buttock (stage 2)) Urinary Catheter Management^: Cosme: Cath Placed During This Visit: yes Reason for Continuing Indwelling Catheter: Other Urinary Catheter Date of Insertion: 03/10/21 Urinary Catheter Time of Insertion: 10:08 Data : 03/16/21 05:17 03/16/21 05:17 A&P Assessment and plan (1) Hypotension: Status: Acute (2) Pressure ulcers of skin of multiple topographic sites: Status: Acute (3) UTI (urinary tract infection): Status: Acute (4) Volume overload: Status: Acute (5) Anemia: Status: Acute Qualifiers: Iron deficiency anemia type: chronic blood loss (6) Hypoglycemia: Status: Acute (7) Hypothyroidism: Status: Chronic Qualifiers: Hypothyroidism type: unspecified Qualified Code(s): E03.9 - Hypothyroidism, unspecified (8) COPD (chronic obstructive pulmonary disease): Status: Acute Qualifiers: COPD type: unspecified COPD Qualified Code(s): J44.9 - Chronic obstructive pulmonary disease, unspecified (9) Acute metabolic encephalopathy: Status: Acute (10) Bipolar 1 disorder: Status: Chronic (11) Acute on chronic heart failure with preserved ejection fraction (HFpEF): Status: Acute (12) Acute kidney injury: Status: Acute Ms. Mckeon is a 45yo woman w/ multiple medical conditions including DM2, chronic HFpEF, GI bleed, and COPD, who presented to the ED on the evening of 03/09/2021, and was admitted in the early a.m. of 03/10/2021 for acute metabolic encephalopathy, Hypoglycemia, [place] on CKD with concern for rhabdomyolysis, and Acute on chronic HFpEF, after ED records indicated that she had been outside all day in the truck from 9 AM to 5 PM. Of note, the patient was hospitalized from 02/21 to 03/02/2021 for septic shock due to E. coli UTI and E. faecalis bacteremia. In the 02/21-03/02 hospitalization, patient was noted to have maggots in her and foot and extensive excoriations in her b/l LE extremities. See the H&P written on 03/10/2021 for further details. On admission, she was transfused prbc and given IVF. She was transferred to the ICU for hypotension and vol overload deemed to be due to 1 prbc transfusion. She briefly required Norepinephrine and was weaned to midodrine. She was transferred to back to the floor on 03/12/2021. # Acute metabolic encephalopathy #Hypotension - Multifactorial: Possible infectious vs [place] vs Acute on chronic HFpEF in the setting of Pulm HTN - Her TTE on 02/24 shows an EF of 55% w/ mild-moderate MV regurgitation. She has severe tricuspid regurge w/ PA pressures of 60mmHg concerning for pulmonary Hypertension. - Her HANY on 02/26/2021 shows no signs of endocarditis, but she may have an occult infection. Her UA on admission shows Yazmin Krusei so she was started on Diflucan on 03/12/2021 BID. - PLAN: Consulted ID, who recommended Caspofungin. Involvement appreciated. F/u BCx, Fungal cx - Continue Midodrine #Severe hypothyroidism, Myxedema of the legs. # Adrenal insufficiency -Based on cosyntropin stimulation test done on 03/15/2021. Started hydrocortisone 100 mg IVP x1. Will give a dose of 50mg q6h x 3 days, then taper to 50mg q12h x 2 days then daily. Continuation of physiologic doses will depend on her response. Will monitor her BG because she states that anytime she is given steroids, she generally needs to be given insulin. - Gave her 200mcg IVP starting 03/17 daily for 2 days. IV Levothyroxine was ordered due to the level of edema that she has and concern that she may not absorb orally. Switch to an increased dose of po Levothyroxine after the 2 days of IVP. # Wounds - Stage 2 ulcers on L ischium, R. heel. - Ordered Dakins solution. Will attempt to reach wound care clinic and get phone recs. # Anasarca, Vol overload, Acute on chronic HF # Possible b/l LE lymphedema # [place] - Was planning on consulting nephrology, but patient's renal fxn continues to improve, so will hold for now. - Per H&P, patient is allergic to Lasix, so she is on Bumetanide. - Venous doppler of b/l LE showing no signs of DVT. #Anemia # Possible acute on chronic GI bleed - FOBT positive. Held subq heparin. F/u Iron studies. - I spoke with GI on 03/16, who mentioned that she has the EGDs, up to 25, here and at outside hospitals, and every time he does an EGD on the patient, he generally notes some alcoholic gastritis, so will hold on requesting EGD. Switch PPI IV to po BID, and resume subq heparin. # Hypoglycemia - Unclear cause again. Will order hypoglycemia protocol. # COPD - Will find out what pharmacy has b/c Incruse Ellipta is non-formulary. Ordered [place]. DVT ppx: none for now. With respect to dispo, patient Additional A&P Information History of DVT, PE with IVC filter and recent reinitiation of anticoagulation described History of GI bleeding History of chronic abdominal pain Extensive rash lately that was felt to be due to Lasix allergy History of alcohol dependence History of endocarditis, bacteremia, urinary tract infections, cellulitis, line infections Multiple other comorbid conditions as noted above deviously well documented in the records Inpatient admission IV fluids Check urinalysis Recheck CK and renal function in the morning Monitor blood pressures closely Cosme catheter for close monitoring of urine output We will need diuresis at some point in time If does not improve with IV fluids consider nephrology consultation Monitor blood sugars Continue oxygen, breathing treatments if needed Hold most home medications currently until starts to show signs of improvement Will provide some Vistaril for itching Need to clarify current home medication list since she left the retirement We will need to monitor peripheral IV access, we were able to get a line placed in the ED which she quickly pulled out; aware lab draws and IVs are challenging with Mrs. Brown Subcu heparin for DVT prophylaxis currently, I am unclear if she is taking Eliquis or not Supportive care otherwise Anticipated disposition is wherever Mrs. Mckeon will agree to when she is medically stable. She typically refuses to go to skilled facility and when she does she leaves it shortly thereafter. I do not know that there is much that we can do to change her current health care course for the better though we do repeatedly try. Full code Attestations Medical Necessity Statement*: Patient requires continued hospitalization for monitoring of the effects of hydrocortisone and initiation of IV levothyroxine. Coding Level of Care Code Acute Cigarette Inspector for Chg Fwd Diagnoses Hypotension I95.9 Pressure ulcers of skin of multiple topographic sites L89.90 UTI (urinary tract infection) N39.0 Volume overload E87.70 Anemia D64.9 Iron deficiency anemia type: chronic blood loss Hypoglycemia E16.2 Hypothyroidism E03.9 Hypothyroidism type: unspecified COPD (chronic obstructive pulmonary disease) J44.9 COPD type: unspecified COPD Acute metabolic encephalopathy G93.41 Bipolar 1 disorder F31.9 Acute on chronic heart failure with preserved ejection fraction (HFpEF) I50.33 Acute kidney injury N17.9
[2021-03-16] MEDS: hydrocortisone 100 mg/2 mL SDV IVP (20:56)
[2021-03-16] MEDS: magnesium sulfate premix 4 GM/100 ML PREMIX IV (21:15)
[2021-03-16 22:18] LABS: Glucose Point of Care 104 mg/dL (70-110)
[2021-03-17] VITALS (12 sets, daily range): BP systolic 95–110; BP diastolic 55–63; PULSE 74–87; RESP 16–29; TEMP 36.4–36.9; O2SAT 89–97; BMI 43.0
[2021-03-17] MEDS: levothyroxine 100 mcg SDV 200 MCG IVP (05:42)
[2021-03-17] MEDS: hydrocortisone 100 mg/2 mL SDV 50 MG IVP ×3 (05:43→17:56)
[2021-03-17] MEDS: oxyCODONE 5 mg IR Tab/Cap PO ×2 (05:44→18:43)
[2021-03-17] MEDS: cholecalciferol (vitamin D3) 5,000 unit Tablet 5000 UNIT PO (06:18)
[2021-03-17] MEDS: thiamine 100 mg Tablet PO (06:18)
[2021-03-17 07:05] LABS: Glucose Point of Care 199 mg/dL (70-110)
--- NOTE | 2021-03-17 08:33 | P.PN_ITS ---
Subjective Subjective: Interval history: The patient states that she is short of breath today and endorses a nonproductive cough. Denies any chest pain palpitations, dizziness, lightheadedness. Her bumetanide was stopped 2 days earlier due to concerns that her urine output was becoming more concentrated, concerning for decreasing intravascular volume. Vitals/I&O/Wt Last Vital Signs Temp 97.6 F 03/17/21 07:27 Pulse 80 03/17/21 07:27 Resp 22 H 03/17/21 07:27 BP 109/63 03/17/21 07:27 Pulse Ox 89 L 03/17/21 07:27 03/16/21 03/17/21 03/17/21 22:59 06:59 14:59 Intake Total 350 / 590 Output Total 1240 / 1240 900 / 2140 Balance -1240 / -1000 -550 / -1550 Weight last 48 hrs Weight 110.042 kg Weight 110.677 kg Physical Exam Const: COMMON NORMALS: no acute distress and patient oriented x3 GENERAL APPEARANCE: cooperative NUTRITIONAL APPEARANCE: overweight ORIENT ATION/CONSCIOUSNESS: Yes awake, Yes oriented to person and Yes oriented to place HENMT: COMMON NORMALS: normocephalic, atraumatic, external ears normal and Normal external nose present HEAD & SCALP: normocephalic and atraumatic FACE & SINUS: normal facial exam NOSE: Normal external nose present EXTERNAL EAR: Yes external ears normal MOUTH: Normal oral and palatal mucosa present Eye: COMMON NORMALS: Equal, round and reactive pupils present and conjunctivae normal CONJUNCTIVA: Yes conjunctivae normal PUPIL: Yes Equal, round and reactive pupils present EOM: No EOM abnormal Neck/C-Spine: COMMON NORMALS: Thyroid normal GENERAL: Yes trachea midline, No anterior neck swelling and No lymphadenopathy THYROID: Thyroid normal Resp: AUSCULTATION: diminished lung sounds bilateral in the lower lung hernandez Cardio: COMMON NORMALS: regular rate and regular rhythm RATE: regular rate RHYTHM: regular rhythm HEART SOUNDS: no click, no gallops, no murmurs and no rubs GI: COMMON NORMALS: Soft to palpation and No hepatosplenomegaly present PALPATION: Yes Soft to palpation, No Firmness to palpation present (GI), No Tenderness to palpation present (GI), No Guarding due to palpation present (GI), No Rigid due to palpation and Yes No hepatosplenomegaly present Extremity: GENERAL: No clubbing, No cyanosis and Yes edema (3+ pitting dependent edema to the lower abdomen) Neuro: COMMON NORMALS: patient oriented x3 SENSORIUM/ORIENTATION: Yes oriented to person and Yes oriented to place CRANIAL NERVES: Yes CN normal except as noted GAIT: Yes Unable to assess gait Psych: ATTITUDE: Yes calm ACTIVITY/MOTOR BEHAVIOR: Yes appropriate eye contact SPEECH: Yes slow MOOD & AFFECT: Yes euthymic mood Skin: WOUNDS: Yes wounds noted (R. heel, R. buttock (stage 2)) Urinary Catheter Management^: Cosme: Cath Placed During This Visit: yes Reason for Continuing Indwelling Catheter: Other Urinary Catheter Date of Insertion: 03/10/21 Urinary Catheter Time of Insertion: 10:08 Data : 03/16/21 05:17 03/16/21 05:17 A&P Assessment and plan (1) Hypotension: Status: Acute (2) Pressure ulcers of skin of multiple topographic sites: Status: Acute (3) UTI (urinary tract infection): Status: Acute (4) Volume overload: Status: Acute (5) Anemia: Status: Acute Qualifiers: Iron deficiency anemia type: chronic blood loss (6) Hypoglycemia: Status: Acute (7) Hypothyroidism: Status: Chronic Qualifiers: Hypothyroidism type: unspecified Qualified Code(s): E03.9 - Hypothyroid ism, unspecified (8) COPD (chronic obstructive pulmonary disease): Status: Acute Qualifiers: COPD type: unspecified COPD Qualified Code(s): J44.9 - Chronic obstructive pulmonary disease, unspecified (9) Acute metabolic encephalopathy: Status: Acute (10) Bipolar 1 disorder: Status: Chronic (11) Acute on chronic heart failure with preserved ejection fraction (HFpEF): Status: Acute (12) Acute kidney injury: Status: Acute Ms. Mckeon is a 45yo woman w/ multiple medical conditions including DM2, chronic HFpEF, GI bleed, and COPD, who presented to the ED on the evening of 03/09/2021, and was admitted in the early a.m. of 03/10/2021 for acute metabolic encephalopathy, Hypoglycemia, TRENTON on CKD with concern for rhabdomyolysis, and Acute on chronic HFpEF, after ED records indicated that she had been outside all day in the truck from 9 AM to 5 PM. Of note, the patient was hospitalized from 02/21 to 03/02/2021 for septic shock due to E. coli UTI and E. faecalis bacteremia. In the 02/21-03/02 hospitalization, patient was noted to have maggots in her and foot and extensive excoriations in her b/l LE extremities. See the H&P written on 03/10/2021 for further details. On admission, she was transfused prbc and given IVF. She was transferred to the ICU for hypotension and vol overload deemed to be due to 1 prbc transfusion. She briefly required Norepinephrine and was weaned to midodrine. She was transferred to back to the floor on 03/12/2021. # Acute metabolic encephalopathy #Hypotension - Multifactorial: Possible infectious vs TRENTON vs Acute on chronic HFpEF in the setting of Pulm HTN - Her TTE on 02/24 shows an EF of 55% w/ mild-moderate MV regurgitation. She has severe tricuspid regurge w/ PA pressures of 60mmHg concerning for pulmonary Hyp ertension. - Her HANY on 02/26/2021 shows no signs of endocarditis, but she may have an occult infection. Her UA on admission shows Yazmin Krusei so she was started on Diflucan on 03/12/2021 BID. Asked lab to send it for sensitivities. - PLAN: Consulted ID, who recommended Caspofungin. Involvement appreciated. BCX negative. - Continue Midodrine #Severe hypothyroidism, Myxedema of the legs. # Adrenal insufficiency -Based on cosyntropin stimulation test done on 03/15/2021. Started hydrocortisone 100 mg IVP x1. Will give a dose of 50mg q6h x 3 days, then taper to 50mg q12h x 2 days then daily. Continuation of physiologic doses will depend on her response. Will monitor her BG because she states that anytime she is given steroids, she generally needs to be given insulin. - Gave her 200mcg IVP starting 03/17 daily for 2 days. IV Levothyroxine was ordered due to the level of edema that she has and concern that she may not absorb orally. Switch to an increased dose of po Levothyroxine after the 2 days of IVP. # Wounds - Stage 2 ulcers on L ischium, R. heel and lateral L. heal, gluteus. - Consulted General Surgeon, Dr. Nixon, who states that she would need to go to the OR for debridement, after which she would likely need a halfway. # Anasarca, Vol overload, Acute on chronic HF # Possible b/l LE lymphedema # TRENTON - Was planning on consulting nephrology, but patient's renal fxn continues to improve, so will hold on the consult for now. - Per H&P, patient is allergic to Lasix, so she is on Bumetanide. - Venous doppler of b/l LE showing no signs of DVT. #Anemia # Possible acute on chronic GI bleed - FOBT positive. Held subq heparin. F/u Iron studies. - I spoke with GI on 03/16, who mentioned that she has the EGDs, up to 25, here and at outside hospitals, and every time he does an EGD on the patient, he generally notes some alcoholic gastritis, so will hold on requesting EGD. - On PPI IV to po BID - Can resume heparin if it is clear that patient will not undergo surgical debridement on 03/18. # Hypoglycemia - Unclear cause. Likely due to her adrenal insufficiency for which she was started on hydrocortisone. # COPD - Will find out what pharmacy has b/c Incruse Ellipta is non-formulary. Ordered Andrés. DVT ppx: none for now. Restart Heparin held on 03/14 after FOBT was noted. With respect to dispo, after the patient's wounds are debrided, she would likely need a halfway. Attestations Medical Necessity Statement*: Patient requires continued hospitalization for her endocrine abnormalities as well as need for surgical debridement of her wounds. 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
[2021-03-17] MEDS: levETIRAcetam 500 mg Tablet 1000 MG PO ×2 (09:00→21:14)
[2021-03-17] MEDS: pantoprazole 40 mg SDV IVP ×2 (09:01→21:14)
[2021-03-17] MEDS: calcitriol 0.25 mcg Capsule 0.5 MCG PO ×2 (09:01→17:55)
[2021-03-17] MEDS: nystatin powder 15 gm Btl 1 APPLIC TOPICAL ×2 (09:54→17:57)
[2021-03-17] MEDS: neomycin-poly-bacitracin oint 28 gm 1 APPLIC TOPICAL (09:55)
[2021-03-17] MEDS: bumetanide 0.25 mg/mL SDV 4 mL 1 MG IV (09:56)
[2021-03-17] MEDS: TRAMadol 50 mg Tablet PO (11:32)
[2021-03-17] MEDS: diphenhydrAMINE 25 mg Capsule PO ×2 (11:32→21:14)
[2021-03-17 12:04] LABS: Glucose Point of Care 216 mg/dL (70-110)
[2021-03-17] MEDS: ondansetron 2 mg/ML SDV 2 mL 4 MG IVP ×2 (12:33→21:19)
[2021-03-17] MEDS: sodium hypochlorite 0.25% Btl 473 mL 1 APPLIC TOPICAL (14:30)
[2021-03-17 16:59] LABS: Glucose Point of Care 157 mg/dL (70-110)
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
[2021-03-17 21:33] LABS: Glucose Point of Care 178 mg/dL (70-110)
[2021-03-18] VITALS (33 sets, daily range): BP systolic 81–151; BP diastolic 59–87; PULSE 68–98; RESP 16–31; TEMP 36.6–37.3; O2SAT 89–99
[2021-03-18] MEDS: hydrocortisone 100 mg/2 mL SDV 50 MG IVP ×3 (01:01→12:27)
--- NOTE | 2021-03-18 04:00 | XRR_ITS ---
PROCEDURE INFORMATION: Exam: XR Chest Exam date and time: 03/18/2021 4:00 AM Age: 45 years old Clinical indication: Patient HX: Persistent tachypnea. TECHNIQUE: Imaging protocol: XR of the chest. Views: 1 view. COMPARISON: CT chest abd pel wo con 03/13/2021 7:42 PM FINDINGS: Lungs: There is left basilar atelectasis. Hazy opacity in the right mid lung zone is probably fluid in the minor fissure. There is a poor inspiration with elevation of the diaphragm. Pleural spaces: There is a small right pleural effusion. No pneumothorax is seen. Heart/Mediastinum: The heart is normal for the AP lordotic projection. There is a large hiatal hernia. Bones/joints: Unremarkable. XR/XR chest 1V portable [id number] IMPRESSION: 1. Poor inspiration with basilar atelectasis. 2. Small right pleural effusion.
[2021-03-18] MEDS: oxyCODONE 5 mg IR Tab/Cap PO ×2 (04:22→15:48)
[2021-03-18 06:01] LABS: Basophils % 0.3 %; Eosinophils % 0.2 %; Hemoglobin 9.1 g/dL (11.5-15.3); Lymphocytes # 0.7 10^3/uL (0.8-4.8); Lymphocytes % 11.7 %; Mean Corpuscular HGB Conc 29.4 g/dL (30.0-36.0); Mean Corpuscular Hemoglobin 27.6 pg (28.0-34.0); Mean Corpuscular Volume 93.9 fL (81-99); Mean Platelet Volume 10.7 fL (7.4-10.4); Monocytes # 0.4 10^3/uL (0.2-0.9); Monocytes % 6.4 %; Neutrophils # 4.89 10^3/uL (1.8-7.7); Neutrophils % 80.7 %; Nucleated Red Blood Cells % 0 %; Platelet Count 341 10^3/cmm (130-400); Red Cell Distribution Width 17.4 % (12.1-15.1); White Blood Count 6.1 10^3/uL (4.0-10.0)
[2021-03-18 06:27] LABS: Alanine Aminotransferase 20 U/L (0-33); Albumin Level 1.9 g/dL (3.5-5.2); Alkaline Phosphatase 128 IU/L (35-105); Anion Gap 10.6 (5-19); Aspartate Amino Transferase 11 U/L (0-32); Blood Urea Nitrogen 5 mg/dL (6-20); Calcium 7.3 mg/dL (8.5-10.5); Carbon Dioxide 29 mmol/L (22-29); Chloride 106 mmol/L (98-107); Globulin 2.8 g/dL (1.3-4.6); Glomerular Filtration Rate 77.2 mL/min (90-130); Glucose 128 mg/dL (65-115); Magnesium 1.6 mg/dL (1.7-2.3); NT Pro B Type Natriuretic Pept 6936 pg/mL (0-125); Osmolality Calculated 293 mOsm/kg (285-295); Phosphorus 3.3 mg/dL (2.5-4.5); Potassium 3.6 mmol/L (3.5-5.1); Sodium 142 mmol/L (136-145); Total Bilirubin 0.3 mg/dL (0.15-1.2); Total Protein 4.7 g/dL (6.6-8.7)
[2021-03-18] MEDS: thiamine 100 mg Tablet PO (06:50)
[2021-03-18] MEDS: cholecalciferol (vitamin D3) 5,000 unit Tablet 5000 UNIT PO (06:50)
[2021-03-18] MEDS: levothyroxine 100 mcg SDV 200 MCG IVP (07:05)
[2021-03-18] MEDS: calcitriol 0.25 mcg Capsule 0.5 MCG PO ×2 (08:03→17:15)
[2021-03-18] MEDS: levETIRAcetam 500 mg Tablet 1000 MG PO ×2 (08:03→21:35)
[2021-03-18] MEDS: pantoprazole 40 mg SDV IVP ×2 (08:04→21:34)
[2021-03-18] MEDS: bumetanide 0.25 mg/mL SDV 4 mL 1 MG IV (08:06)
[2021-03-18] MEDS: nystatin powder 15 gm Btl 1 APPLIC TOPICAL ×2 (08:08→17:16)
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
[2021-03-18] MEDS: HYDROmorphone 1 mg/mL INJ 1 mL 0.5 MG IVP (08:59)
[2021-03-18] MEDS: sodium chloride 0.9% 1,000 ML 30 ML IV (08:59)
[2021-03-18 09:21] LABS: Glucose Point of Care 111 mg/dL (70-110)
--- NOTE | 2021-03-18 09:21 | SUR.PHASEI ---
0855 PT AWAKE ALERT PERMIT SIGNED PT STATES SHE TALKED WITH DR VERA AND UNDERSTAND THE PROCEDURE ,DR VERA NOW AT BEDSIDE, 0859 SEE PAIN MED GIVEN ORDERED IV PATENT TO RT PICC LINE , DRIPS FREELY, TRACER CHECK DONE (111) PT ALERT AND TALKATIVE SATS 94% ON 4LNC ON THE FLOOR.
[2021-03-18] MEDS: clindamycin 900 MG/50 ML PREMIX 100 MG IV (09:42)
[2021-03-18] MEDS: lidocaine 2% INJ 20 mL 40 ML INJECTION (10:45)
--- NOTE | 2021-03-18 10:54 | P.OP_ITS ---
Operative Report Date of procedure: March 18, 2021 Pre-op Diagnosis: Pressure injury ulcers Post-op diagnosis: other (Multiple pressure injury ulcers) Procedure Done: Sharp Debridement of left gluteal, left heel and right heel pressure injury ulcers Specimens removed/disposition: Left gluteal pressure injury ulcer tissues for permanent pathology Left gluteal tissues for cultures and sensitivities Right heel ulcer tissues for cultures and sensitivities Surgeon: Marco A Nixon Meat Soaker: watch repair technician Teodora Vick Circulating nurse Ramila Anesthesia: General (LMA vice president quality improvement Kim) Estimated blood loss (mL): 15 IV fluids (mL): 400 Condition: stable Disposition: floor Brief History: Multiple pressure injury ulcers. Full H&P and informed consent per chart Procedure: After identifying the patient in the holding area, patient was then taken directly to the operative suite, patient was on her hospital bed and received an LMA per anesthesia provider, there after was placed in right lateral position. All pressure points were padded by me and the OR team.patient was already on therapeutic antibiotics. prep and drape of the left gluteal region as well as bilateral heel areas, all were done under the usual sterile technique. Time-out was done verifying the patient's name/date of /planned procedure and destination after the procedure, all were in agreement. Started by excising the unhealthy necrotic indurated tissues of the left gluteal pressure injury ulcer first.Incision was created at the skin level and went all the way down to the subcutaneous, indurated unhealthy skin edges were excised as well, at this point sharp debridement was achieved. The debrided tissues were sent for permanent pathology and tissues were obtained for cultures and sensitivities from the necrotic subcutaneous tissues. Copious and thorough irrigation using Pulsavac with Vashe solution about 1 L and a half was used. Hemostasis was achieved using Bovie cauterization and [id number] 3-0 silk sutures followed by placement of a large piece of Surgicel.Followed by packing the wound with Kerlix impregnated and lidocaine 2%. Then ABDs. Attention now was deviated towards the left heel ulcer and sharp debridement was done as well all the way to the muscle layer. Hemostasis was using figure of eight 3-0 silk sutures, Pulsavac irrigation was used as well. Attention was deviated now towards the right heel ulcer, and sharp debridement was obtained and more tissues for cultures were sent from the right heel ulcer, central cavitation was appreciated all the way to the musculofascial layer. A total of 3 L of 4 solution was used for irrigation of all ulcers Left gluteal pressure injury ulcer stage III Predebridement measurements 12 x 10.5 x 0.1 cm Post debridement measurements 13.5 x 11 x 2 cm Cavitation towards the cephalad part of the ulcer, debridement was done all the way to the subcutaneous layer. Hemostasis using multiple 3-0 silk [id number] Left heel pressure injury ulcer stage IV Predebridement measurements 3 x 2 x 0.1 cm Post debridement measurements 3 x 2 x 0[address] to the muscle layer without bone exposure Figure of 3-0 silk for hemostasis Right heel pressure injury ulcer stage IV Predebridement measurements 6 x 3 x 0.1 cm Post debridement measurements 6 x 3 x 0[address] to the musculofascial layer without bone exposure Both heel ulcers were packed with Kerlix impregnated and lidocaine 2% followed by ABDs Kerlix and Castillo wrap Patient tolerated the procedure well, count of instruments ,needles and sponges were completed at the end of the procedure. Patient was then taken directly to the PACU in in a stable condition. I was present for the whole entire procedure
[2021-03-18] MEDS: fentaNYL 50 mcg/mL INJ 2mL IVP (11:16)
[2021-03-18] MEDS: HYDROmorphone 1 mg/mL INJ 1 mL IVP (11:34)
[2021-03-18 12:10] LABS: Glucose Point of Care 124 mg/dL (70-110)
--- NOTE | 2021-03-18 12:18 | PC.SOCIAL ---
IMM Updated Updated pt on Pg 2 IMM. No questions voiced. Provided pt a copy. Initialed, dated, & timed copy in chart.
[2021-03-18] MEDS: diphenhydrAMINE 25 mg Capsule PO ×2 (12:41→21:34)
[2021-03-18 13:03] LABS: INR 1.33 (0.8-1.2)
[2021-03-18 13:04] LABS: Partial Thromboplastin Time 32.6 SECONDS (23.9-36.7)
--- NOTE | 2021-03-18 13:19 | ANE.PACU2 ---
Inpatient post-anesthesia follow up: Airway intact: Yes Vital signs: Temperature 98.0 F Pulse Rate [Monito r] 123 Pulse Rate 68 Respiratory Rate 16 Blood Pressure [Le ft Arm] 103/83 Blood Pressure 151/69 Pulse Oximetry 96 Oxygen Delivery Me thod Room Air Oxygen Flow Rate 4 Fraction of Inspir ed Oxygen 30 Hydration adequate: Yes Nausea and vomiting: No Pain level: 4 Mental status: Baseline
--- NOTE | 2021-03-18 13:47 | P.PN_ITS ---
Subjective Subjective: Interval history: Status post debridement of left gluteal and bilateral heel pressure ulcers Has stayed afebrile with normal hemodynamics Complaining of throbbing in her feet Has been scratching her back throughout the interview Vitals/I&O/Wt Last Vital Signs Temp 98.0 F 03/18/21 12:05 Pulse 68 03/18/21 12:05 Resp 16 03/18/21 12:05 BP 151/69 03/18/21 12:05 Pulse Ox 96 03/18/21 12:05 03/17/21 03/18/21 03/18/21 22:59 06:59 14:59 Intake Total 550 / 1470 50 / 50 Output Total 400 / 400 1200 / 1600 20 / 20 Balance 150 / 1070 -1200 / -130 30 / 30 Weight last 48 hrs Weight 110.132 kg Weight 110.042 kg Physical Exam Narrative: EXAM NARRATIVE: Morbidly obese female Laying in her bed with mild distress complaining of throbbing in her feet Her feet are covered with dressing from the OR which were not removed Signs of excoriation and scabs with venous stasis dermatitis noticed of lower ex tremity Pannus with mild hyperemia without purulent drainage Anasarca Cushingoid appearance Multiple skin scabs Eczematous skin changes Awake alert oriented x3 GCS 15 No acute respiratory distress Abdominal skin hard otherwise no active signs of peritonitis Urinary Catheter Management^: Cosme: Cath Placed During This Visit: yes Reason for Continuing Indwelling Catheter: Other Urinary Catheter Date of Insertion: 03/10/21 Urinary Catheter Time of Insertion: 10:08 Data : 03/18/21 04:53 03/18/21 04:53 A&P Assessment and plan (1) Pressure ulcers of skin of multiple topographic sites: Status: Acute (2) Anemia: Status: Acute Qualifiers: Iron deficiency anemia type: chronic blood loss (3) Volume overload: Status: Acute (4) Hypotension: Status: Acute (5) Adrenal insufficiency: Status: Acute Additional A&P Information Metabolic encephalopathy: Improved Hypotension with myxedema of legs Patient presented with encephalopathy, hypoglycemia, hypotension and abnormal thyroid function Received 200 mcg of IV levothyroxine for 2 days, currently on p.o. regimen, dose adjusted to 300 mcg Inadequate response to cosyntropin, this is her third day on stress dose steroids, tolerated debridement in the OR Her TTE on 02/24 shows an EF of 55% w/ mild-moderate MV regurgitation. She has severe tricuspid regurge w/ PA pressures of 60mmHg concerning for pulmonary Hypertension. - Her HANY on 02/26/2021 shows no signs of endocarditis, but she may have an occult infection. Her UA on admission shows Yazmin Krusei so she was started on Diflucan on 03/12/2021 BID. Asked lab to send it for sensitivities. Consulted ID, who recommended Caspofungin. She has been weaned off vasopressors to midodrine on as needed basis I would add fludrocortisone along hydrocortisone tapering and avoid midodrine Blood cultures negative to date, sensitivity on Yazmin pending Pressure injury ulcer of heel bilaterally with left gluteal area Status post debridement Tolerated procedure well today no signs of hemodynamic instability Chronic anemia FOBT positive Multiple endoscopies in the past which revealed alcohol induced gastritis Continue Protonix, hemoglobin stable As per general surgery no acute indication for repeating endoscopy DVT prophylaxis: Start heparin from tomorrow Consistent carb diet We will need halfway status post debridement Attestations Medical Necessity Statement*: Status post debridement of pressure induced injury ulcer, currently requiring close monitoring, continue current hospitalization, anticipating discharge to a halfway in next week Time Spent in Patient Care: 30mins Coding Level of Care Code Acute Assessment Technician for Chg Fwd Diagnoses Pressure ulcers of skin of multiple topographic sites L89.90 Anemia D64.9 Iron deficiency anemia type: chronic blood loss Volume overload E87.70 Hypotension I95.9 Adrenal insufficiency E27.40
[2021-03-18 17:09] LABS: Glucose Point of Care 118 mg/dL (70-110)
[2021-03-18] MEDS: TRAMadol 50 mg Tablet PO (21:36)
[2021-03-18] MEDS: ondansetron 2 mg/ML SDV 2 mL 4 MG IVP (21:36)
[2021-03-19] VITALS (15 sets, daily range): BP systolic 97–125; BP diastolic 62–85; PULSE 61–90; RESP 13–23; TEMP 36.6–36.9; O2SAT 93–99
[2021-03-19] MEDS: oxyCODONE 5 mg IR Tab/Cap PO ×2 (00:22→16:18)
[2021-03-19] MEDS: hydrocortisone 100 mg/2 mL SDV IVP ×3 (00:27→23:44)
[2021-03-19] MEDS: TRAMadol 50 mg Tablet PO (06:24)
[2021-03-19] MEDS: thiamine 100 mg Tablet PO (06:24)
[2021-03-19] MEDS: cholecalciferol (vitamin D3) 5,000 unit Tablet 5000 UNIT PO (06:24)
[2021-03-19 06:37] LABS: Glucose Point of Care 115 mg/dL (70-110)
[2021-03-19] MEDS: pantoprazole 40 mg SDV IVP ×2 (09:03→21:19)
[2021-03-19] MEDS: bumetanide 0.25 mg/mL SDV 4 mL 1 MG IV (09:03)
[2021-03-19] MEDS: fludrocortisone 0.1 mg Tablet PO (09:04)
[2021-03-19] MEDS: levETIRAcetam 500 mg Tablet 1000 MG PO ×2 (09:04→21:21)
[2021-03-19] MEDS: heparin 5,000 unit/mL INJ 1 mL 5000 UNIT SUBCUT ×2 (09:05→16:19)
[2021-03-19] MEDS: nystatin powder 15 gm Btl 1 APPLIC TOPICAL ×2 (09:18→18:53)
[2021-03-19] MEDS: calcitriol 0.25 mcg Capsule 0.5 MCG PO ×2 (09:30→18:52)
[2021-03-19] MEDS: morphine 4 mg/mL SDV 1 mL 2 MG IVP (09:35)
--- NOTE | 2021-03-19 09:36 | P.PN_ITS ---
Subjective Subjective: Interval history: Patient overall feels well. No acute events overnight. Medications: Reviewed: Yes Vitals/I&O/Wt Last Vital Signs Temp 97.9 F 03/18/21 16:00 Pulse 80 03/19/21 08:35 Resp 18 03/19/21 08:35 BP 125/80 03/19/21 08:35 Pulse Ox 95 03/19/21 08:35 03/18/21 03/19/21 03/19/21 22:59 06:59 14:59 Intake Total 500 / 640.5 250 / 890.5 Output Total 1000 / 1020 200 / 1220 Balance -500 / -379.5 50 / -329.5 Weight last 48 hrs Weight 244 lb 6.4 oz Weight 242 lb 12.8 oz Physical Exam Narrative: EXAM NARRATIVE: Patient is conscious alert oriented X3 BMI 43.3 Physical exam of Pressure injury ulcers was done in the presence of female ceramic saw tender nursing staff. All dressing was taken down and packing of all wounds was done by me and with the assistance of the nursing staff bedside. Beds of left gluteal,left heel and right heel pressure injury ulcers look clean and no evidence of pus, some residual necrotic tissues. Urinary Catheter Management^: Cosme: Cath Placed During This Visit: yes Reason for Continuing Indwelling Catheter: Other Urinary Catheter Date of Insertion: 03/10/21 Urinary Catheter Time of Insertion: 10:08 Data : 03/18/21 04:53 03/18/21 04:53 Micro: Microbiology 03/13/21 20:37 Blood Culture - Final Blood NO GROWTH AFTER 5 DAYS 03/13/21 20:33 Blood Culture - Final Blood NO GROWTH AFTER 5 DAYS 03/18/21 10:44 Gram Stain - Final Foot - Right 03/18/21 10:44 Gram Stain - Final Thigh - Left A&P Assessment and plan (1) Pressure ulcers of skin of multiple topographic sites: 1-nutrition optimization and will put a consult for nutrition evaluation and recommendations. Will add prealbumin to assess nutrition status. 2-wound care in the form of packing daily all pressure injury ulcers with Kerlix wet-to-dry using half-strength Dakin'S solution followed by ABDs. For bilateral heels will use additional Kerlix and Castillo wrap Can change secondary dressing when excessive moisture is noticed by nursing staff. 3-management of medical comorbidities per hospitalist service. 4-physical therapy consultation. 5-assurance and education. 6-frequent turning in bed every 2 hours. Consider special mattress for offloading, recommend to have a gel mattress overlay Group 1 to start with. 7-referral to longterm care at discharge from the hospital. 8-bilateral lower extremities arterial duplex studies. Assurance and education All questions have been answered and all concerns have been addressed to patient's satisfaction. Status: Acute Attestations Medical Necessity Statement*: Patient requiring inpatient hospitalization passing 2 midnights for management of sepsis and surgical care of pressure injury ulcers. Time Spent in Patient Care: 16 - 35 minutes (>than 50% of time spent in counselling and/or direct pt care on unit) . Coding Level of Care Code Acute Certified Medical Transcriptionist for Janeen Ray Diagnoses Pressure ulcers of skin of multiple topographic sites L89.90
--- NOTE | 2021-03-19 10:02 | USCV_ITS ---
Delores Mckeon Age: 45 Gender: F : 1975 Exam Date: 03/19/2021 11:12 Ordering Phys: Marco A Nixon MD Technologist: Daphne Cantu Exam Location: [facility] [place] Indication: Bilateral heel ulcers Risk Factors: Previous Vascular Surgery: RIGHT LEFT Waveform Velocity (cm/s) Velocity (cm/s) Waveform Triphasic 122.7 Iliac Mid 140.3 Triphasic Triphasic 94.8 Iliac Distal 124.1 Triphasic Triphasic 67.0 FARM HAND 92.0 Triphasic Triphasic 70.6 SFA Prox 89.4 Triphasic Triphasic 77.2 SFA Mid 90.7 Triphasic Triphasic 69.5 SFA Dist 69.7 Triphasic Triphasic 88.2 POP 63.6 Triphasic Triphasic 104.1 ROUTE DELIVERY DRIVER 87.2 Triphasic Triphasic 60.6 DPA 34.2 Triphasic FINDINGS See measurements listed above. Normal Doppler flow velocities Normal triphasic Doppler waveforms throughout on both sides . CONCLUSIONS No evidence of any significant arterial obstruction, based on the above. No ABIs were obtained Dr Ravinder House MD [facility] (Electronically Signed) Final Date: 19 March 2021 19:29 S
--- NOTE | 2021-03-19 10:13 | PC.CHAP ---
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 healthcare project manager visit [] Patient/Family/Request visit [] Outpatient visit [] Follow-up visit [] Physician referral [] Code/Alert [x] Routine visit [] Staff referral [] Actively dying [] Patient sleeping [] Family support [] [] Out of room [] Palliative care [] [] Receiving care in room [] Pre-surgical visit [] Trauma [] Long length of stay [] ICU visit [] Other: Relational/Emotional Strength [x] Patient feels connected with others/family/visitors/staff [] Distress [] Loneliness/isolation [] Abandonment Spirituality of Patient [x] Person of Angy [] Attends Restoration of their Angy [x] Believes in Prayer [] Reads Bible or Buddhist materials [] There are Spiritual issues to be addressed Barrel Washer Interventions [x Prayer [x] Active listening [x] Non-anxious presence [x] Spiritual/emotional support [] Crisis/trauma care [] Spiritual counseling [] Bereavement support [] Provided bereavement packet [] Provided Bible/devotional materials [] Provided toy/stuffed animal, coloring book to patient or family member [] Provided Communion [] Anointing/[place] [] Salvation [x] Completed spiritual assessment [] Other: Impact on Illness or Injury [] Angry [] Fearful [] Anxious [] Often cries [] Exhaustion [] Unable to work [] Unable to attend faith [] Unable to walk/stand [] Unable to read [] Unable to drive [] Unable to eat/drink [] Unable to sleep [] Unable to be with family [] Patient intubated [] Other: Summary Barrel Washer prayed with patient and family member Time spent with patient 10 minutes
[2021-03-19 11:50] LABS: Glucose Point of Care 110 mg/dL (70-110)
--- NOTE | 2021-03-19 14:53 | P.PN_ITS ---
Subjective Subjective: Interval history: Patient was seen and examined this morning, was complaining of pain she was due for another opioid dosage. I have discontinued her tramadol secondary to history of seizure as per her her last seizure was about 3 months ago. Recommendations reviewed of Dr. Nixon. Patient is endorsing bowel movement, Cosme catheter draining clear urine, dressi ng changed by GS Vitals/I&O/Wt Last Vital Signs Temp 98.3 F 03/19/21 11:50 Pulse 72 03/19/21 11:50 Resp 14 03/19/21 11:50 BP 97/62 03/19/21 11:50 Pulse Ox 96 03/19/21 11:50 03/18/21 03/19/21 03/19/21 22:59 06:59 14:59 Intake Total 500 / 640.5 250 / 890.5 Output Total 1000 / 1020 200 / 1220 Balance -500 / -379.5 50 / -329.5 Weight last 48 hrs Weight 110.858 kg Weight 110.132 kg Physical Exam Narrative: EXAM NARRATIVE: Delores Mckeon was laying supine in her bed when I entered the room was complaining of pain Cushingoid appearance No worsening of skin cellulitis Venous stasis dermatitis Eczematous skin changes all over her body Multiple skin scabs S1, S2, generalized edema/anasarca Distended abdomen with hyperemia and moist and pannus with topical antifungal Distress mood secondary to pain at bedside EOMI, PERRLA No neurological deficit Cosme catheter draining clear yellow urine Stage III pressure abuse gluteal wound 13 x 11 x 2 Stage IV left heel pressure injury 3 x 2 x 0.4 cm Right heel pressure injury ulcer stage IV 6 x 3 x 0.8 cm Urinary Catheter Management^: Cosme: Cath Placed During This Visit: yes Reason for Continuing Indwelling Catheter: Other Urinary Catheter Date of Insertion: 03/10/21 Urinary Catheter Time of Insertion: 10:08 Data : 03/18/21 04:53 03/18/21 04:53 Micro: Microbiology 03/18/21 10:44 Gram Stain - Final Foot - Right Tissue Culture - Preliminary Gram Negative Rods Gram Negative Rods#2 Gram Negative Rods#3 03/18/21 10:44 Gram Stain - Final Thigh - Left Tissue Culture - Preliminary Gram Negative Rods Gram Negative Rods#2 03/13/21 20:37 Blood Culture - Final Blood NO GROWTH AFTER 5 DAYS 03/13/21 20:33 Blood Culture - Final Blood NO GROWTH AFTER 5 DAYS A&P Assessment and plan (1) Adrenal insufficiency: Status: Acute (2) Acute on chronic heart failure with preserved ejection fraction (HFpEF): Status: Acute (3) Hypotension: Status: Acute (4) Acute metabolic encephalopathy: Status: Acute (5) Anemia: Status: Acute Qualifiers: Iron deficiency anemia type: chronic blood loss Additional A&P Information Adrenal insufficiency Presented with hypotension and myxedema Switch to hydrocortisone 100 mg IV every 12 for 2 days and then 100 mg daily and then wean off gradually to maintenance dose, added fludrocortisone, midodrine was discontinued, hemodynamically has stayed stable Hypoglycemia improved I have increased her levothyroxine dose to 300 mcg on 03/18, initially she required IV levothyroxine Stage IV pressure injury ulcer of heel bilaterally with stage III left gluteal ulcer Awaiting culture and sensitivity from the sample taken in the OR, she will most likely need 3 to 4 weeks of antibiotics/chronic suppressive therapy She is at high risk of deterioration septic shock and demise considering her la ck of care and extensive pressure injury ulcers She is not a suitable candidate to go home as last time she presented with maggots in her foot, awaiting placement to a correction Nutrition consult PT consult Wound dressing to be changed daily as per recommendations from general surgery Generalized anasarca with preserved ejection fraction heart failure history Judicious use of diuretics considering hypotension with systolic blood pressure ranging between 95 to 100 mm No active chest pain or shortness of breath Hemoglobin stable, CBC pending from today No active bleeding Encephalopathy: Improved History of seizure: Discontinue tramadol, increase oxycodone dose to 10 mg p.o. every 6 hours Full code DVT prophylaxis: Heparin Consistent carb diet Attestations Medical Necessity Statement*: Anticipating stay in the hospital cross more than 2 midnights for continued medical management Time Spent in Patient Care: (>than 50% of time spent in counselling and/or direct pt care on unit) . 30mins Coding Level of Care Code Acute Clinical Information Systems Director for Janeen Ray Diagnoses Adrenal insufficiency E27.40 Acute on chronic heart failure with preserved ejection fraction (HFpEF) I50.33 Hypotension I95.9 Acute metabolic encephalopathy G93.41 Anemia D64.9 Iron deficiency anemia type: chronic blood loss
[2021-03-19 17:17] LABS: Glucose Point of Care 136 mg/dL (70-110)
[2021-03-19 20:13] LABS: Glucose Point of Care 124 mg/dL (70-110)
[2021-03-19] MEDS: diphenhydrAMINE 25 mg Capsule PO (22:52)
--- NOTE | 2021-03-19 22:58 | PC.NUTR ---
NUTR CONSULT: Consult received for pressure ulcers. Pt has been assessed and monitored during admission appropriately. Additional PRO needs have been established to facilitate wound healing, as well as, supplements to assist meeting increased PRO needs. PT has poor PO intake and records of refusing meals. Will cont to monitor appropriately and re-evaluate as needed.
[2021-03-20] VITALS (16 sets, daily range): BP systolic 120–145; BP diastolic 71–93; PULSE 50–85; RESP 16–28; TEMP 36.3–36.6; O2SAT 94–100
[2021-03-20] MEDS: heparin 5,000 unit/mL INJ 1 mL 5000 UNIT SUBCUT ×3 (00:35→19:24)
[2021-03-20] MEDS: oxyCODONE 5 mg IR Tab/Cap PO (03:53)
[2021-03-20 05:47] LABS: Hematocrit 31.6 % (37.0-47.0); Hemoglobin 8.9 g/dL (11.5-15.3); Lymphocytes # 0.6 10^3/uL (0.8-4.8); Lymphocytes % 12.9 %; Mean Corpuscular HGB Conc 28.2 g/dL (30.0-36.0); Mean Corpuscular Hemoglobin 27.6 pg (28.0-34.0); Mean Corpuscular Volume 97.8 fL (81-99); Mean Platelet Volume 10.3 fL (7.4-10.4); Monocytes # 0.3 10^3/uL (0.2-0.9); Monocytes % 6.7 %; Neutrophils # 3.89 10^3/uL (1.8-7.7); Neutrophils % 79.4 %; Nucleated Red Blood Cells % 0 %; Platelet Count 387 10^3/cmm (130-400); Red Blood Count 3.23 10^6/uL (4.1-5.3); White Blood Count 4.9 10^3/uL (4.0-10.0)
[2021-03-20] MEDS: thiamine 100 mg Tablet PO (06:03)
[2021-03-20] MEDS: cholecalciferol (vitamin D3) 5,000 unit Tablet 5000 UNIT PO (06:03)
[2021-03-20 06:35] LABS: Glucose Point of Care 116 mg/dL (70-110)
--- NOTE | 2021-03-20 06:42 | PC.NURSE ---
Patient resting in bed. No acute changes overnight. Very little urine output this shift. Continue care.
[2021-03-20] MEDS: levETIRAcetam 500 mg Tablet 1000 MG PO ×2 (08:07→20:41)
[2021-03-20] MEDS: ondansetron 2 mg/ML SDV 2 mL 4 MG IVP ×2 (08:07→20:41)
[2021-03-20] MEDS: docusate sodium 100 mg Capsule PO ×2 (08:07→19:24)
[2021-03-20] MEDS: bumetanide 0.25 mg/mL SDV 4 mL 1 MG IV (08:07)
[2021-03-20] MEDS: pantoprazole 40 mg SDV IVP ×2 (08:07→20:41)
[2021-03-20] MEDS: fludrocortisone 0.1 mg Tablet PO (08:18)
[2021-03-20] MEDS: calcitriol 0.25 mcg Capsule 0.5 MCG PO ×2 (08:18→20:41)
--- NOTE | 2021-03-20 09:56 | PC.SOCIAL ---
IMM Update Pg.2 of IMM updated and reviewed with patient, who verbalized understanding. Copy provided.
[2021-03-20 10:10] LABS: Prealbumin 12.3 mg/dL (20-40)
[2021-03-20] MEDS: diphenhydrAMINE 25 mg Capsule PO ×2 (11:54→20:41)
[2021-03-20 12:06] LABS: Glucose Point of Care 134 mg/dL (70-110)
[2021-03-20] MEDS: oxyCODONE 5 mg IR Tab/Cap 10 MG PO ×2 (12:36→19:24)
[2021-03-20] MEDS: hydrocortisone 100 mg/2 mL SDV IVP (13:58)
[2021-03-20] MEDS: HYDROmorphone 1 mg/mL INJ 1 mL 0.5 MG IVP ×2 (15:13→23:11)
--- NOTE | 2021-03-20 16:47 | PM.PN ---
Subjective Subjective: Interval history: No lower extremity DVT or signs of arterial insufficiency, prealbumin 12.3, Patient is complaining of pain in her feet requesting morphine I have added Dilaudid and increase oxycodone frequency No overnight events Vitals/I&O/Wt Last Vital Signs Temp 97.4 F L 03/20/21 16:00 Pulse 85 03/20/21 16:00 Resp 20 H 03/20/21 16:00 BP 142/87 03/20/21 16:00 Pulse Ox 98 03/20/21 16:00 03/20/21 03/20/21 03/20/21 06:59 14:59 22:59 Intake Total 100 / 410 250 / 250 Output Total 300 / 750 Balance -200 / -340 250 / 250 Weight last 48 hrs Weight 110.705 kg Weight 110.858 kg Physical Exam Narrative: EXAM NARRATIVE: Patient complaining of back pain Cosme catheter draining clear yellow urine Distress more because of pain Anasarca Eczematous skin changes EOMI, PERRLA No neurological deficit Stage III pressure abuse gluteal wound 13 x 11 x 2 Stage IV left heel pressure injury 3 x 2 x 0.4 cm Right heel pressure injury ulcer stage IV 6 x 3 x 0.8 cm Urinary Catheter Management^: Cosme: Cath Placed During This Visit: yes Reason for Continuing Indwelling Catheter: Other Urinary Catheter Date of Insertion: 03/10/21 Urinary Catheter Time of Insertion: 10:08 Data : 03/20/21 05:05 03/18/21 04:53 Micro: Microbiology 03/18/21 10:44 Gram Stain - Final Thigh - Left Tissue Culture - Preliminary Escherichia coli Proteus vulgaris A&P Assessment and plan (1) Adrenal insufficiency: Status: Acute (2) Hypotension: Status: Acute (3) Acute on chronic heart failure with preserved ejection fraction (HFpEF): Status: Acute (4) Anemia: Status: Acute Qualifiers: Iron deficiency anemia type: chronic blood loss (5) Pressure ulcers of skin of multiple topographic sites: Status: Acute (6) Acute metabolic encephalopathy: Status: Acute Additional A&P Information Adrenal insufficiency I will switch her to 100 mg of hydrocortisone IV for 2 days and then start maintenance dose of 10 mg twice a day I have increased her levothyroxine dose to 300 mcg on 03/18, initially she required IV levothyroxine Stage IV pressure injury ulcer of heel bilaterally with stage III left gluteal ulcer Status post debridement Dr. Nixon Awaiting culture and sensitivity from the sample taken in the OR, she will most likely need 3 to 4 weeks of antibiotics/chronic suppressive therapy She is at high risk of deterioration septic shock and demise considering her lack of care and extensive pressure injury ulcers She is not a suitable candidate to go home as last time she presented with maggots in her foot, awaiting placement to a long term Nutrition consult PT consult Wound dressing to be changed daily as per recommendations from general surgery For analgesia would use Dilaudid for severe pain and oxycodone 10 mg for mild to moderate pain Culture from the OR showing gram-negative rods and from left thigh showing E. coli with Proteus sensitive to Levaquin, start Levaquin 03/20 She will need 2-week therapy for Yazmin krusei with caspofungin to avoid bloodstream infection no candidemia during this hospitalization Generalized anasarca with preserved ejection fraction heart failure history Judicious use of diuretics considering hypotension with systolic blood pressure ranging between 95 to 100 mmhg No active chest pain or shortness of breath Hemoglobin stable Encephalopathy: Improved History of seizure: Discontinue tramadol [place]: Improved Full code DVT prophylaxis: Heparin Consistent carb diet Disposition: She has been refused by multiple SNF, case management working on getting her placed to a suitable SNF Attestations Medical Necessity Statement*: Continue medical management, awaiting placement Time Spent in Patient Care: 30mins Coding Level of Care Code Acute Director Geothermal Operations for Janeen Ray Diagnoses Adrenal insufficiency E27.40 Hypotension I95.9 Acute on chronic heart failure with preserved ejection fraction (HFpEF) I50.33 Anemia D64.9 Iron deficiency anemia type: chronic blood loss Pressure ulcers of skin of multiple topographic sites L89.90 Acute metabolic encephalopathy G93.41
[2021-03-20 17:34] LABS: Glucose Point of Care 119 mg/dL (70-110)
[2021-03-20] MEDS: nystatin powder 15 gm Btl 1 APPLIC TOPICAL (19:36)
[2021-03-20] MEDS: sodium hypochlorite 0.25% Btl 473 mL 1 APPLIC TOPICAL (20:42)
[2021-03-20 20:57] LABS: Glucose Point of Care 166 mg/dL (70-110)
[2021-03-21] VITALS (20 sets, daily range): BP systolic 120–150; BP diastolic 76–96; PULSE 60–82; RESP 13–30; TEMP 36.6–37; O2SAT 96–98
[2021-03-21] MEDS: heparin 5,000 unit/mL INJ 1 mL 5000 UNIT SUBCUT ×3 (00:44→18:44)
--- NOTE | 2021-03-21 02:46 | PC.NURSE ---
Patient is currently resting in bed with eyes closed. Will monitor. Earlier in shift, patient voiced concern to me about not being able to find placement. Patient states, what will they do with me if they can't find anywhere that will accept me?
[2021-03-21] MEDS: thiamine 100 mg Tablet PO (04:52)
[2021-03-21] MEDS: oxyCODONE 5 mg IR Tab/Cap 10 MG PO ×4 (04:52→23:40)
[2021-03-21] MEDS: cholecalciferol (vitamin D3) 5,000 unit Tablet 5000 UNIT PO (04:52)
[2021-03-21] MEDS: levoFLOXacin 750 mg Tablet PO (04:52)
[2021-03-21] MEDS: diphenhydrAMINE 25 mg Capsule PO ×2 (05:19→23:40)
[2021-03-21] MEDS: ondansetron 2 mg/ML SDV 2 mL 4 MG IVP ×2 (05:36→18:44)
[2021-03-21 06:50] LABS: Glucose Point of Care 92 mg/dL (70-110)
[2021-03-21] MEDS: pantoprazole 40 mg SDV IVP ×2 (07:48→19:54)
[2021-03-21] MEDS: HYDROmorphone 1 mg/mL INJ 1 mL 0.5 MG IVP ×3 (07:48→22:20)
[2021-03-21] MEDS: levETIRAcetam 500 mg Tablet 1000 MG PO ×2 (07:48→19:54)
--- NOTE | 2021-03-21 09:12 | PC.CHAP ---
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 seed service advisor visit [] Patient/Family/Request visit [] Outpatient visit [] Follow-up visit [] Physician referral [] Code/Alert [x] Routine visit [] Staff referral [] Actively dying [] Patient sleeping [] Family support [] [] Out of room [] Palliative care [] [] Receiving care in room [] Pre-surgical visit [] Trauma [] Long length of stay [] ICU visit [] Other: Relational/Emotional Strength [] Patient feels connected with others/family/visitors/staff [] Distress [] Loneliness/isolation [] Abandonment Spirituality of Patient [] Person of Angy [] Attends Roman Catholic of their Angy [] Believes in Prayer [] Reads Bible or Advent materials [] There are Spiritual issues to be addressed Ramp Flight Attendant Interventions [x] Prayer [x] Active listening [x] Non-anxious presence [x] Spiritual/emotional support [] Crisis/trauma care [] Spiritual counseling [] Bereavement support [] Provided bereavement packet [] Provided Bible/devotional materials [] Provided toy/stuffed animal, coloring book to patient or family member [] Provided Communion [] Anointing/[place] [] Salvation [x] Completed spiritual assessment [] Other: Impact on Illness or Injury [] Angry [] Fearful [] Anxious [] Often cries [] Exhaustion [] Unable to work [] Unable to attend yarsanism [] Unable to walk/stand [] Unable to read [] Unable to drive [] Unable to eat/drink [] Unable to sleep [] Unable to be with family [] Patient intubated [] Other: Summary patient had wounds dressed.. for a while there is discomfort .. in good spirits Time spent with patient 10 min
[2021-03-21] MEDS: bumetanide 0.25 mg/mL SDV 4 mL 1 MG IV (09:43)
[2021-03-21] MEDS: hydrocortisone 100 mg/2 mL SDV IVP (09:43)
[2021-03-21] MEDS: fludrocortisone 0.1 mg Tablet PO (09:47)
[2021-03-21] MEDS: calcitriol 0.25 mcg Capsule 0.5 MCG PO ×2 (09:47→18:44)
[2021-03-21 10:41] LABS: Glucose Point of Care 129 mg/dL (70-110)
[2021-03-21] MEDS: HYDROmorphone 1 mg/mL INJ 1 mL IVP (11:45)
--- NOTE | 2021-03-21 12:07 | PC.NURSE ---
dressing changes 0645AM-first dressing change to left lateral hip during shift change this morning. 2nd dressing change at this time with Doctor at bedside to assess the wounds on left lateral hip and heels. Verbal order received to give dilaudid 1 mg now during dressing changes. pt tolerated the dressing change poorly. maximum assist needed during dressing changes.
--- NOTE | 2021-03-21 13:50 | PC.NUTR ---
Nutrition follow up: Pt has been assessed multiple times by RD this admission. Today interviewed pt to discuss meal preferences and encourage po intake. Will change Nepro supplement to a blended drink of Nepro with orange sherbet. Will add preference for either a salad or a roast beef sandwich with lunch and supper meals. Added no fish/seafood (pt reports allergy) and lactose intolerance to diet per pt report. Notified unit of pt reported allergy. See RD assessments for further details.
[2021-03-21] MEDS: neomycin-poly-bacitracin oint 28 gm 1 APPLIC TOPICAL ×2 (15:13→18:55)
[2021-03-21] MEDS: nystatin powder 15 gm Btl 1 APPLIC TOPICAL ×2 (15:13→18:56)
[2021-03-21 16:36] LABS: Glucose Point of Care 114 mg/dL (70-110)
--- NOTE | 2021-03-21 18:19 | PM.PN ---
Subjective Subjective: Interval history: Seen and dressing was changed today, she has been requiring dressing change 2-3 times a day, her dressing gets soaked pretty frequently, Her wounds were examined with the help of nurses today She has necrotic tissue of right heel Tunneling of left thigh wound Patient is in excruciating pain during dressing change She does not want to go to any [facility], she has been refused by multiple SNF Vitals/I&O/Wt Last Vital Signs Temp 97.8 F 03/21/21 16:00 Pulse 66 03/21/21 16:00 Resp 13 03/21/21 16:00 BP 150/91 03/21/21 16:00 Pulse Ox 97 03/21/21 16:00 03/21/21 03/21/21 03/21/21 06:59 14:59 22:59 Intake Total 100 / 1410 600 / 600 Output Total 900 / 901 Balance -800 / 509 600 / 600 Weight last 48 hrs Weight 110.677 kg Weight 110.705 kg Physical Exam Narrative: EXAM NARRATIVE: Patient excruciating pain during dressing change of her wounds Cosme catheter draining clear yellow urine Multiple excoriations/ scratch morfin Anasarca Eczematous skin changes No neurological deficit Stage III pressure abuse gluteal wound 13 x 11 x 2 Stage IV left heel pressure injury 3 x 2 x 0.4 cm Right heel pressure injury ulcer stage IV 6 x 3 x 0.8 cm Urinary Catheter Management^: Cosme: Cath Placed During This Visit: yes Reason for Continuing Indwelling Catheter: Other Urinary Catheter Date of Insertion: 03/10/21 Urinary Catheter Time of Insertion: 10:08 Data : 03/20/21 05:05 03/18/21 04:53 Micro: Microbiology 03/18/21 10:44 Gram Stain - Final Foot - Right Tissue Culture - Preliminary Gram Negative Rods Gram Negative Rods#2 Gram Negative Rods#3 03/18/21 10:44 Gram Stain - Final Thigh - Left Tissue Culture - Final Escherichia coli Proteus vulgaris A&P Assessment and plan (1) Adrenal insufficiency: Status: Acute (2) Acute on chronic heart failure with preserved ejection fraction (HFpEF): Status: Acute (3) Hypotension: Status: Acute (4) Pressure ulcers of skin of multiple topographic sites: Status: Acute (5) Anemia: Status: Acute Qualifiers: Iron deficiency anemia type: chronic blood loss (6) Acute metabolic encephalopathy: Status: Acute Additional A&P Information Adrenal insufficiency Start on hydrocortisone p.o. regimen 10 mg twice a day from tomorrow along with fludrocortisone I have increased her levothyroxine dose to 300 mcg on 03/18, initially she required IV levothyroxine for myxedema Stage IV pressure injury ulcer of heel bilaterally with stage III left gluteal ulcer Culture from the OR showing gram-negative rods and from left thigh showing E. coli with Proteus sensitive to Levaquin, start Levaquin 03/20 She will need 2-week therapy for Yazmin krusei with caspofungin to avoid bloodstream infection no candidemia during this hospitalization, antifungal regimen to be finished on 03/22 Continue Levaquin long-term as chronic suppressive therapy as she is at high risk of septic shock and recurrent admissions and demise Generalized anasarca with preserved ejection fraction heart failure history Judicious use of diuretics Encephalopathy: Improved History of seizure: Discontinue tramadol [place]: Improved Full code DVT prophylaxis: Heparin Consistent carb diet Disposition: She has been refused by multiple SNF, will try to look into LTAC and swing bed options for her Attestations Medical Necessity Statement*: Continue current medical management awaiting placement to swing bed versus LTAC Time Spent in Patient Care: 30mins Coding Level of Care Code Acute University President for Chg Fwd Diagnoses Adrenal insufficiency E27.40 Acute on chronic heart failure with preserved ejection fraction (HFpEF) I50.33 Hypotension I95.9 Pressure ulcers of skin of multiple topographic sites L89.90 Anemia D64.9 Iron deficiency anemia type: chronic blood loss Acute metabolic encephalopathy G93.41
[2021-03-21] MEDS: sodium hypochlorite 0.25% Btl 473 mL 1 APPLIC TOPICAL (19:54)
--- NOTE | 2021-03-21 20:14 | PC.NURSE ---
Patient is on the phone stating, my heart rate is going crazy. Patient's heart rate is currently 56 in SR. Will monitor.
--- NOTE | 2021-03-21 21:01 | PC.NURSE ---
Awaiting pharmacy to bring Caspofungin.
--- NOTE | 2021-03-21 21:01 | PC.NURSE ---
Interdry placed under abdomen, groin, and under breasts.
[2021-03-21 21:50] LABS: Glucose Point of Care 209 mg/dL (70-110)
[2021-03-22] VITALS (17 sets, daily range): BP systolic 124–144; BP diastolic 77–91; PULSE 68–90; RESP 15–32; TEMP 36.5–36.6; O2SAT 90–98
[2021-03-22] MEDS: heparin 5,000 unit/mL INJ 1 mL 5000 UNIT SUBCUT ×2 (00:26→10:17)
--- NOTE | 2021-03-22 02:52 | PC.NURSE ---
Patient is currently resting with eyes closed. Will monitor.
[2021-03-22] MEDS: oxyCODONE 5 mg IR Tab/Cap 10 MG PO ×4 (03:17→21:42)
[2021-03-22 04:03] LABS: Basophils % 0.1 %; Eosinophils % 0.3 %; Hemoglobin 8.6 g/dL (11.5-15.3); Lymphocytes # 1.1 10^3/uL (0.8-4.8); Lymphocytes % 15.4 %; Mean Corpuscular HGB Conc 28.7 g/dL (30.0-36.0); Mean Corpuscular Hemoglobin 27.7 pg (28.0-34.0); Mean Corpuscular Volume 96.8 fL (81-99); Mean Platelet Volume 10.3 fL (7.4-10.4); Monocytes # 0.6 10^3/uL (0.2-0.9); Neutrophils # 5.42 10^3/uL (1.8-7.7); Neutrophils % 74.3 %; Nucleated Red Blood Cells % 0.3 %; Platelet Count 328 10^3/cmm (130-400); Red Cell Distribution Width 16.6 % (12.1-15.1); White Blood Count 7.3 10^3/uL (4.0-10.0)
[2021-03-22 04:23] LABS: Anion Gap 9.4 (5-19); Blood Urea Nitrogen 6 mg/dL (6-20); Calcium 7.6 mg/dL (8.5-10.5); Carbon Dioxide 30 mmol/L (22-29); Chloride 108 mmol/L (98-107); Glomerular Filtration Rate 90.1 mL/min (90-130); Glucose 87 mg/dL (65-115); Osmolality Calculated 295 mOsm/kg (285-295); Potassium 3.4 mmol/L (3.5-5.1); Sodium 144 mmol/L (136-145)
[2021-03-22] MEDS: HYDROmorphone 1 mg/mL INJ 1 mL 0.5 MG IVP ×3 (05:58→20:22)
[2021-03-22] MEDS: levoFLOXacin 750 mg Tablet PO (05:58)
[2021-03-22] MEDS: diphenhydrAMINE 25 mg Capsule PO ×2 (05:58→20:22)
[2021-03-22] MEDS: ondansetron 2 mg/ML SDV 2 mL 4 MG IVP ×2 (05:58→20:23)
[2021-03-22] MEDS: cholecalciferol (vitamin D3) 5,000 unit Tablet 5000 UNIT PO (05:58)
[2021-03-22] MEDS: thiamine 100 mg Tablet PO (05:58)
[2021-03-22 06:47] LABS: Glucose Point of Care 97 mg/dL (70-110)
[2021-03-22] MEDS: hydrocortisone 100 mg/2 mL SDV IVP (10:18)
[2021-03-22] MEDS: pantoprazole 40 mg SDV IVP (10:18)
[2021-03-22] MEDS: bumetanide 0.25 mg/mL SDV 4 mL 1 MG IV (10:18)
[2021-03-22] MEDS: potassium chloride ER 20 mEq Tablet 40 MEQ PO (10:19)
[2021-03-22] MEDS: calcitriol 0.25 mcg Capsule 0.5 MCG PO ×2 (10:19→17:54)
[2021-03-22] MEDS: fludrocortisone 0.1 mg Tablet PO (10:19)
[2021-03-22] MEDS: nystatin powder 15 gm Btl 1 APPLIC TOPICAL ×2 (10:21→17:56)
[2021-03-22] MEDS: levETIRAcetam 500 mg Tablet 1000 MG PO ×2 (10:39→20:22)
[2021-03-22 11:53] LABS: Glucose Point of Care 83 mg/dL (70-110)
--- NOTE | 2021-03-22 12:10 | PC.SOCIAL ---
IMM Update Pg. 2 of IMM updated and reviewed with patient, verbalized understanding. Initialed, dated, timed, and placed in chart. Copy provided to patient.
--- NOTE | 2021-03-22 13:51 | P.PN_ITS ---
Subjective Subjective: Interval history: No overnight events, patient is distress complaining that every time her dressing is changed she gets excruciating pain Today she is agreeable for swing bed or LTAC and stating that she is not safe to go home and live by herself Potassium was repleted today We will change IV Bumex to p.o. today Vitals/I&O/Wt Last Vital Signs Temp 97.8 F 03/22/21 11:32 Pulse 77 03/22/21 11:32 Resp 20 H 03/22/21 13:25 BP 124/80 03/22/21 11:32 Pulse Ox 98 03/22/21 13:25 03/21/21 03/22/21 03/22/21 22:59 06:59 14:59 Intake Total 1310 / 1910 450 / 2360 Output Total 300 / 300 Balance 1310 / 1910 150 / 2060 Weight last 48 hrs Weight 110.677 kg Weight 110.677 kg Physical Exam Narrative: EXAM NARRATIVE: She was laying comfortably today in her bed Cosme catheter draining clear yellow urine Multiple excoriations/ scratch morfin Anasarca Eczematous skin changes No neurological deficit EOMI, PERRLA Stage III pressure abuse gluteal wound 13 x 11 x 2 Stage IV left heel pressure injury 3 x 2 x 0.4 cm Right heel pressure injury ulcer stage IV 6 x 3 x 0.8 cm Urinary Catheter Management^: Cosme: Cath Placed During This Visit: yes Reason for Continuing Indwelling Catheter: Other Urinary Catheter Date of Insertion: 03/10/21 Urinary Catheter Time of Insertion: 10:08 Data : 03/22/21 03:52 03/22/21 03:52 Micro: Microbiology 03/18/21 10:44 Gram Stain - Final Foot - Right Tissue Culture - Preliminary Gram Negative Rods Gram Negative Rods#2 Gram Negative Rods#3 03/18/21 10:44 Gram Stain - Final Thigh - Left Tissue Culture - Final Escherichia coli Proteus vulgaris A&P Assessment and plan (1) Adrenal insufficiency: Status: Acute (2) Acute on chronic heart failure with preserved ejection fraction (HFpEF): Status: Acute (3) Hypotension: Status: Acute (4) Volume overload: Status: Acute (5) Acute metabolic encephalopathy: Status: Acute (6) Poor venous access: Status: Chronic Additional A&P Information Adrenal insufficiency start hydrocortisone 10 mg twice daily along fludrocortisone daily regimen we will keep her on increased dose of levothyroxine 300 mcg for now onwards blood pressure stable Stage IV pressure injury ulcer of heel bilaterally with stage III left gluteal ulcer Culture from the OR showing gram-negative rods and from left thigh showing E. coli with Proteus sensitive to Levaquin, started Levaquin 03/20 She will need 2-week therapy for Yazmin krusei with caspofungin to avoid bloodstream infection no candidemia during this hospitalization, antifungal 2- week IV regimen finished today we will keep her on p.o. Levaquin from now onwards as chronic suppressive therapy Generalized anasarca with preserved ejection fraction heart failure history: Change IV Bumex to p.o. Encephalopathy: Improved History of seizure: Discontinue tramadol [place]: Improved Full code DVT prophylaxis: Heparin Consistent carb diet disposition swing bed versus LTAC she has been declined by multiple SNF Attestations Medical Necessity Statement*: Awaiting placement to a SNF Time Spent in Patient Care: 30mins Coding Level of Care Code Acute Cap And Stud Machine Operator for Janeen Ray Diagnoses Adrenal insufficiency E27.40 Acute on chronic heart failure with preserved ejection fraction (HFpEF) I50.33 Hypotension I95.9 Volume overload E87.70 Acute metabolic encephalopathy G93.41 Poor venous access I87.8
[2021-03-22] MEDS: enoxaparin 30 mg/0.3 mL Syringe SUBCUT (15:42)
[2021-03-22 17:13] LABS: Glucose Point of Care 165 mg/dL (70-110)
[2021-03-22] MEDS: hydrocortisone 10 mg Tablet 5 MG PO (17:54)
[2021-03-22] MEDS: neomycin-poly-bacitracin oint 28 gm 1 APPLIC TOPICAL (17:56)
[2021-03-22] MEDS: sodium hypochlorite 0.25% Btl 473 mL 1 APPLIC TOPICAL (20:22)
[2021-03-22 20:27] LABS: Glucose Point of Care 118 mg/dL (70-110)
--- NOTE | 2021-03-22 21:03 | PC.NURSE ---
Bedside report received from Radha BARRETT. Patient has significant other at bedside. They are arguing in raised voices. This nurse asked patient to please lower her voice due to other patients on the unit. Patient stated she would calm down. Significant other left at this time. Patient is A & O. Gave IV Dilaudid to help with pain during dressing change and Zofran for C/O nausea.
--- NOTE | 2021-03-22 22:37 | PC.NURSE ---
Wound care to left hip and bilateral heels. Cleansed with Dakins and applied wet to dry dressing. Covered with ABD's and wrapped. patient tolerated well.
[2021-03-23] VITALS (17 sets, daily range): BP systolic 124–144; BP diastolic 78–84; PULSE 84–94; RESP 15–24; TEMP 36.4–36.9; O2SAT 90–97
[2021-03-23] MEDS: HYDROmorphone 1 mg/mL INJ 1 mL 0.5 MG IVP ×3 (02:27→19:24)
[2021-03-23] MEDS: diphenhydrAMINE 25 mg Capsule PO ×3 (02:27→20:05)
[2021-03-23] MEDS: enoxaparin 30 mg/0.3 mL Syringe SUBCUT ×2 (02:27→14:16)
[2021-03-23] MEDS: oxyCODONE 5 mg IR Tab/Cap 10 MG PO ×4 (05:12→22:58)
[2021-03-23 06:25] LABS: Glucose Point of Care 78 mg/dL (70-110)
[2021-03-23] MEDS: ondansetron 2 mg/ML SDV 2 mL 4 MG IVP ×2 (08:39→17:12)
[2021-03-23] MEDS: pantoprazole DR 40 mg Tablet PO (08:40)
[2021-03-23] MEDS: hydrocortisone 10 mg Tablet 5 MG PO ×2 (08:40→18:36)
[2021-03-23] MEDS: thiamine 100 mg Tablet PO (08:40)
[2021-03-23] MEDS: cholecalciferol (vitamin D3) 5,000 unit Tablet 5000 UNIT PO (08:40)
[2021-03-23] MEDS: levETIRAcetam 500 mg Tablet 1000 MG PO ×2 (08:40→19:56)
[2021-03-23] MEDS: fludrocortisone 0.1 mg Tablet PO (10:04)
[2021-03-23] MEDS: calcitriol 0.25 mcg Capsule 0.5 MCG PO ×2 (10:04→18:37)
[2021-03-23 11:40] LABS: Glucose Point of Care 84 mg/dL (70-110)
--- NOTE | 2021-03-23 11:50 | PM.PN ---
Subjective Subjective: Interval history: Patient was seen and examined today in the presence of female linux architect nursing staff Corrie. Overall patient feels better. Medications: Reviewed: Yes Vitals/I&O/Wt Last Vital Signs Temp 97.6 F 03/23/21 07:38 Pulse 92 03/23/21 07:56 Resp 22 H 03/23/21 11:27 BP 124/80 03/23/21 07:38 Pulse Ox 95 03/23/21 07:56 03/22/21 03/23/21 03/23/21 22:59 06:59 14:59 Intake Total 200 / 560 240 / 800 360 / 360 Output Total 550 / 550 Balance 200 / 560 -310 / 250 360 / 360 Weight last 48 hrs Weight 249 lb 8 oz Weight 244 lb Physical Exam Narrative: EXAM NARRATIVE: Patient is conscious alert oriented X3 BMI 44 Head and neck examination PERRLA no masses no cervical lymphadenopathy no jaundice Left gluteal wound shows residual necrotic tissues yet no evidence of purulent discharge, multiple 4 x 4's were used for packing and all were removed and the wound was repacked again by myself using single strip of Kerlix soaked in Dakin's solution wet-to-dry followed by ABDs. Bilateral heel ulcers shows residual necrotic tissues but no induration and well palpable dorsalis pedis arteries, we will plan to apply Santyl on daily basis followed by ABDs and Castillo wrap. Urinary Catheter Management^: Cosme: Cath Placed During This Visit: yes Reason for Continuing Indwelling Catheter: Other Urinary Catheter Date of Insertion: 03/10/21 Urinary Catheter Time of Insertion: 10:08 Data : 03/22/21 03:52 03/22/21 03:52 Micro: Microbiology 03/18/21 10:44 Gram Stain - Final Foot - Right Tissue Culture - Final Escherichia coli Proteus vulgaris Flavobacterium odoratum Other data: Bilateral arterial duplex studies shown below; CONCLUSIONS No evidence of any significant arterial obstruction, based on the above. No ABIs were obtained A&P Assessment and plan (1) Pressure ulcers of skin of multiple topographic sites: 1-nutrition optimization, prealbumin 12.3 2-wound care in the form of packing daily LEFT gluteal pressure injury ulcer with Kerlix wet-to-dry using half-strength Dakin'S solution followed by ABDs. For bilateral heels will use Santyl daily ointment offered by ABDs followed by Kerlix and Castillo wrap Can change secondary dressing when excessive moisture is noticed by nursing staff. 3-management of medical comorbidities per hospitalist service. 4-physical therapy. 5-assurance and education. 6-frequent turning in bed every 2 hours. 7-referral to prison care at discharge from the hospital. Return to wound care center upon discharge. Assurance and education All questions have been answered and all concerns have been addressed to patient's satisfaction. Status: Acute Attestations Medical Necessity Statement*: Awaiting placement to a SNF Time Spent in Patient Care: 16 - 35 minutes (>than 50% of time spent in counselling and/or direct pt care on unit). Coding Level of Care Code Acute Chip Silo Tender for Janeen Rya Diagnoses Pressure ulcers of skin of multiple topographic sites L89.90
--- NOTE | 2021-03-23 14:11 | P.PN_ITS ---
Subjective Subjective: Interval history: Patient awaiting acceptance for swing bed versus LTAC No overnight events, patient endorsing that her pain is under control today I talked with Dr. Carrillo who will evaluate her wounds today as well Dressing recommendations: wound care in the form of packing daily LEFT gluteal pressure injury ulcer with Kerlix wet-to-dry using half-strength Dakin'S solution followed by ABDs. For bilateral heels will use Santyl daily ointment offered by ABDs followed by Kerjaelx and Castillo wrap Can change secondary dressing when excessive moisture is noticed by nursing staff. Vitals/I&O/Wt Last Vital Signs Temp 97.6 F 03/23/21 12:00 Pulse 88 03/23/21 12:00 Resp 19 H 03/23/21 12:00 BP 132/84 03/23/21 12:00 Pulse Ox 97 03/23/21 12:00 03/22/21 03/23/21 03/23/21 22:59 06:59 14:59 Intake Total 200 / 560 240 / 800 720 / 720 Output Total 550 / 550 Balance 200 / 560 -310 / 250 720 / 720 Weight last 48 hrs Weight 113.171 kg Weight 110.677 kg Physical Exam Narrative: EXAM NARRATIVE: Patient did not endorse pain when I saw her in the room she was laying supine comfortable Stage III pressure abuse gluteal wound 13 x 11 x 2, no purulent drainage, pink granulation tissue at the edges Stage IV left heel pressure injury 3 x 2 x 0.4 cm Right heel pressure injury ulcer stage IV, black eschar around proximal wound edge 6 x 3 x 0.8 cm EOMI, PERRLA S1, S2 generalized anasarca Excoriation morfin Urinary Catheter Management^: Cosme: Cath Placed During This Visit: yes Reason for Continuing Indwelling Catheter: Other Urinary Catheter Date of Insertion: 03/10/21 Urinary Catheter Time of Insertion: 10:08 Data : 03/22/21 03:52 03/22/21 03:52 Micro: Microbiology 03/18/21 10:44 Gram Stain - Final Foot - Right Tissue Culture - Final Escherichia coli Proteus vulgaris Flavobacterium odoratum A&P Assessment and plan (1) Adrenal insufficiency: Status: Acute (2) Acute on chronic heart failure with preserved ejection fraction (HFpEF): Status: Acute (3) Hypotension: Status: Acute (4) Volume overload: Status: Acute (5) Acute kidney injury superimposed on CKD: Status: Acute (6) Pressure ulcers of skin of multiple topographic sites: Status: Acute Additional A&P Information Adrenal insufficiency On hydrocortisone maintenance regimen along fludrocortisone Blood pressure stable Continue increased dose of levothyroxine Stage IV pressure injury ulcer of heel bilaterally with stage III left gluteal ulcer Culture from the OR showing gram-negative rods and from left thigh showing E. coli with Proteus sensitive to Levaquin, started Levaquin 03/20 Finished 14 days of IV caspofungin, currently getting Levaquin for chronic suppressive therapy, culture and sensitivity reviewed Appreciate Dr. Nixon recommendation Generalized anasarca with preserved ejection fraction heart failure history: Continue p.o. Bumex 1 mg daily, in order to avoid contamination of her gluteal wound she will need chronic indwelling catheter at the time of discharge Encephalopathy: Improved History of seizure: Discontinued tramadol [place]: Improved Full code DVT prophylaxis: Heparin Consistent carb diet disposition swing bed versus LTAC she has been declined by multiple SNF Attestations Medical Necessity Statement*: Awaiting placement to LTAC versus swing bed Time Spent in Patient Care: 15mins Coding Level of Care Code Acute [employer] for [employer] Fwd Diagnoses Adrenal insufficiency E27.40 Acute on chronic heart failure with preserved ejection fraction (HFpEF) I50.33 Hypotension I95.9 Volume overload E87.70 Acute kidney injury superimposed on CKD N17.9; N18.9 Pressure ulcers of skin of multiple topographic sites L89.90
[2021-03-23] MEDS: levoFLOXacin 750 mg Tablet PO (14:16)
[2021-03-23] MEDS: collagenase oint 30 gm 1 APPLIC TOPICAL ×2 (14:17→19:56)
[2021-03-23 16:48] LABS: Glucose Point of Care 99 mg/dL (70-110)
[2021-03-23] MEDS: sodium hypochlorite 0.25% Btl 473 mL 1 APPLIC TOPICAL (19:56)
[2021-03-23 20:50] LABS: Glucose Point of Care 105 mg/dL (70-110)
--- NOTE | 2021-03-23 23:57 | PC.NURSE ---
Patient is currently resting with eyes closed. Will monitor.
[2021-03-24] VITALS (18 sets, daily range): BP systolic 138–150; BP diastolic 85–95; PULSE 63–92; RESP 13–24; TEMP 36.4–36.9; O2SAT 87–98
[2021-03-24] MEDS: diphenhydrAMINE 25 mg Capsule PO ×2 (02:45→20:17)
[2021-03-24] MEDS: oxyCODONE 5 mg IR Tab/Cap 10 MG PO ×3 (02:45→16:48)
[2021-03-24] MEDS: enoxaparin 30 mg/0.3 mL Syringe SUBCUT ×2 (02:45→16:49)
[2021-03-24] MEDS: cholecalciferol (vitamin D3) 5,000 unit Tablet 5000 UNIT PO (05:18)
[2021-03-24] MEDS: HYDROmorphone 1 mg/mL INJ 1 mL 0.5 MG IVP ×3 (05:18→20:17)
[2021-03-24] MEDS: thiamine 100 mg Tablet PO (05:18)
[2021-03-24] MEDS: levoFLOXacin 750 mg Tablet PO (05:19)
[2021-03-24] MEDS: ondansetron 2 mg/ML SDV 2 mL 4 MG IVP (05:20)
[2021-03-24 06:30] LABS: Glucose Point of Care 94 mg/dL (70-110)
[2021-03-24] MEDS: calcitriol 0.25 mcg Capsule 0.5 MCG PO ×2 (08:28→16:52)
[2021-03-24] MEDS: docusate sodium 100 mg Capsule PO (08:29)
[2021-03-24] MEDS: pantoprazole DR 40 mg Tablet PO (08:29)
[2021-03-24] MEDS: hydrocortisone 10 mg Tablet 5 MG PO ×2 (08:29→16:51)
[2021-03-24] MEDS: levETIRAcetam 500 mg Tablet 1000 MG PO ×2 (08:29→20:16)
[2021-03-24] MEDS: fludrocortisone 0.1 mg Tablet PO (08:30)
[2021-03-24] MEDS: collagenase oint 30 gm 1 APPLIC TOPICAL ×2 (08:32→20:18)
--- NOTE | 2021-03-24 11:18 | PC.SOCIAL ---
IMM UPDATE Gave patient IMM update, provided copy of pg 2. Verbalized understanding 03/24/21 @ 1010 Initialed, dated, timed and placed in chart.
[2021-03-24 12:06] LABS: Glucose Point of Care 120 mg/dL (70-110)
--- NOTE | 2021-03-24 14:02 | XR_ITS ---
WS: [id number] Right foot, 2 views, 03/24/2021 Clinical Data: ulcer Comparison: None. Findings: No fractures or dislocations are seen. The joint spaces and soft tissues are normal. There is a soft tissue ulcer inferior to the calcaneus. No air-fluid levels are seen. XR/XR foot RT 2V [id number] Impression: Ulcer inferior to the right calcaneus.
--- NOTE | 2021-03-24 14:02 | XR_ITS ---
WS: [id number] Left foot, 2 views, 03/24/2021 Clinical Data: pressure ulcer Comparison: None. Findings: No fractures or dislocations are seen. No bone destruction or erosion is noted. The joint spaces and soft tissues are normal. XR/XR foot LT 2V [id number] Impression: Negative left foot.
--- NOTE | 2021-03-24 14:04 | P.PN_ITS ---
Subjective Subjective: Interval history: No overnight events, patient complaining of moderate pain We will renew her oxycodone and Dilaudid today Talk to Dr. Lujan who is not planning for any further debridement for now No plan for wound VAC I have requested ESR and foot x-ray to rule out osteomyelitis and ESR Dressing recommendations: wound care in the form of packing daily LEFT gluteal pressure injury ulcer with Kerlix wet-to-dry using half-strength Dakin'S solution followed by ABDs. For bilateral heels will use Santyl daily ointment offered by ABDs followed by Gerardo and Castillo wrap Can change secondary dressing when excessive moisture is noticed by nursing staff. Vitals/I&O/Wt Last Vital Signs Temp 98.4 F 03/24/21 07:49 Pulse 84 03/24/21 08:32 Resp 20 H 03/24/21 08:31 BP 146/87 03/24/21 07:49 Pulse Ox 98 03/24/21 08:31 03/23/21 03/24/21 03/24/21 22:59 06:59 14:59 Intake Total 360 / 1080 300 / 1380 Output Total 350 / 350 350 / 700 Balance 0 -50 / 680 Weight last 48 hrs Weight 113.171 kg Weight 113.171 kg Physical Exam Narrative: EXAM NARRATIVE: Patient laying in supine position Stage III pressure abuse gluteal wound 13 x 11 x 2, no purulent drainage, pink granulation tissue at the edges Stage IV left heel pressure injury 3 x 2 x 0.4 cm Right heel pressure injury ulcer stage IV, black eschar around proximal wound edge 6 x 3 x 0.8 cm EOMI, PERRLA S1, S2 generalized anasarca Excoriation morfin Appropriate mood and affect No respiratory distress Standard abdomen with obesity Abdominal pannus without active cellulitis has mild hyperemia with nystatin topical powder Urinary Catheter Management^: Cosme: Cath Placed During This Visit: yes Reason for Continuing Indwelling Catheter: Other Urinary Catheter Date of Insertion: 03/10/21 Urinary Catheter Time of Insertion: 10:08 Data : 03/22/21 03:52 03/22/21 03:52 A&P Assessment and plan (1) Adrenal insufficiency: Status: Acute (2) Acute on chronic heart failure with preserved ejection fraction (HFpEF): Status: Acute (3) Volume overload: Status: Acute (4) Acute kidney injury superimposed on CKD: Status: Acute (5) Pressure ulcers of skin of multiple topographic sites: Status: Acute (6) Anemia: Status: Acute Qualifiers: Iron deficiency anemia type: chronic blood loss (7) Poor venous access: Status: Chronic Additional A&P Information Multiple pressure injury ulcers Stage IV bilateral heel ulcers stage III left gluteal ulcer Requested x-ray to rule out osteomyelitis along ESR currently on p.o. Levaquin Afebrile hemodynamically stable Dressing recommendations as mentioned above No further plan for wound VAC placement or debridement Will be discharged to LTAC versus swing bed with a Cosme catheter Appropriate nutrition, keeping diabetes under control, change position every 2 hours, special bed, wound care clinic follow-up Adrenal insufficiency: Blood pressure stable on maintenance dose of hydrocorti sone along fludrocortisone, no further adjustment needed for levothyroxine dosage Preserved ejection fraction with generalized anasarca: Continue p.o. Bumex, scheduled potassium supplementation TRENTON resolved Full code Lovenox for DVT prophylaxis, Lovenox 30 mg twice a day Consistent carb diet Awaiting placement to LTAC versus swing bed acceptance Attestations Medical Necessity Statement*: Awaiting disposition Time Spent in Patient Care: 15-30 minutes Coding Level of Care Code Acute Outdoor Emergency Care Technician for [facility] Fwmarisela Diagnoses Adrenal insufficiency E27.40 Acute on chronic heart failure with preserved ejection fraction (HFpEF) I50.33 Volume overload E87.70 Acute kidney injury superimposed on CKD N17.9; N18.9 Pressure ulcers of skin of multiple topographic sites L89.90 Anemia D64.9 Iron deficiency anemia type: chronic blood loss Poor venous access I87.8
[2021-03-24] MEDS: potassium chloride ER 20 mEq Tablet PO (16:48)
[2021-03-24] MEDS: neomycin-poly-bacitracin oint 28 gm 1 APPLIC TOPICAL (16:52)
[2021-03-24] MEDS: nystatin powder 15 gm Btl 1 APPLIC TOPICAL (16:53)
[2021-03-24 18:14] LABS: Glucose Point of Care 132 mg/dL (70-110)
[2021-03-24] MEDS: sodium hypochlorite 0.25% Btl 473 mL 1 APPLIC TOPICAL (20:18)
[2021-03-24 20:49] LABS: Glucose Point of Care 108 mg/dL (70-110)
[2021-03-25] VITALS (19 sets, daily range): BP systolic 98–127; BP diastolic 55–82; PULSE 82–107; RESP 15–24; TEMP 36.6–37.5; O2SAT 93–97
[2021-03-25] MEDS: enoxaparin 30 mg/0.3 mL Syringe SUBCUT (02:14)
[2021-03-25] MEDS: oxyCODONE 5 mg IR Tab/Cap 10 MG PO ×3 (02:15→18:33)
[2021-03-25] MEDS: ondansetron 2 mg/ML SDV 2 mL 4 MG IVP ×3 (04:30→20:34)
[2021-03-25] MEDS: HYDROmorphone 1 mg/mL INJ 1 mL 0.5 MG IVP ×3 (04:31→20:33)
--- NOTE | 2021-03-25 05:12 | PC.NURSE ---
Wound care to left hip. Cleansed with Dakins and applied wet to dry Kerlix dressing. Covered with ABD's and wrapped. patient tolerated well.
[2021-03-25 05:45] LABS: Basophils % 0.1 %; Eosinophils # 0.3 10^3/uL (0.0-0.8); Eosinophils % 3.1 %; Hematocrit 30.7 % (37.0-47.0); Hemoglobin 8.7 g/dL (11.5-15.3); Lymphocytes # 1.3 10^3/uL (0.8-4.8); Lymphocytes % 12.3 %; Mean Corpuscular HGB Conc 28.3 g/dL (30.0-36.0); Mean Corpuscular Hemoglobin 27.6 pg (28.0-34.0); Mean Corpuscular Volume 97.5 fL (81-99); Mean Platelet Volume 11.1 fL (7.4-10.4); Monocytes # 0.9 10^3/uL (0.2-0.9); Monocytes % 8.2 %; Neutrophils # 8.08 10^3/uL (1.8-7.7); Neutrophils % 74.9 %; Nucleated Red Blood Cells % 0 %; Platelet Count 301 10^3/cmm (130-400); Red Blood Count 3.15 10^6/uL (4.1-5.3); Red Cell Distribution Width 17.2 % (12.1-15.1); White Blood Count 10.8 10^3/uL (4.0-10.0)
[2021-03-25] MEDS: levoFLOXacin 750 mg Tablet PO (06:15)
[2021-03-25] MEDS: cholecalciferol (vitamin D3) 5,000 unit Tablet 5000 UNIT PO (06:15)
[2021-03-25] MEDS: thiamine 100 mg Tablet PO (06:16)
[2021-03-25 06:29] LABS: Anion Gap 9.4 (5-19); Blood Urea Nitrogen 3 mg/dL (6-20); Calcium 7.2 mg/dL (8.5-10.5); Carbon Dioxide 32 mmol/L (22-29); Chloride 107 mmol/L (98-107); Glomerular Filtration Rate 107.6 mL/min (90-130); Glucose 76 mg/dL (65-115); Osmolality Calculated 295 mOsm/kg (285-295); Potassium 3.4 mmol/L (3.5-5.1); Sodium 145 mmol/L (136-145)
[2021-03-25 06:42] LABS: Glucose Point of Care 85 mg/dL (70-110)
[2021-03-25] MEDS: calcitriol 0.25 mcg Capsule 0.5 MCG PO ×2 (08:03→18:34)
[2021-03-25] MEDS: hydrocortisone 10 mg Tablet 5 MG PO ×2 (08:03→18:33)
[2021-03-25] MEDS: potassium chloride ER 20 mEq Tablet PO (08:04)
[2021-03-25] MEDS: levETIRAcetam 500 mg Tablet 1000 MG PO ×2 (08:04→20:39)
[2021-03-25] MEDS: fludrocortisone 0.1 mg Tablet PO (08:04)
[2021-03-25] MEDS: neomycin-poly-bacitracin oint 28 gm 1 APPLIC TOPICAL ×2 (08:05→18:35)
[2021-03-25] MEDS: pantoprazole DR 40 mg Tablet PO (08:06)
[2021-03-25 08:49] LABS: Erythrocyte Sedimentation Rate 22 mm/hr (0-15)
[2021-03-25 11:37] LABS: Glucose Point of Care 104 mg/dL (70-110)
--- NOTE | 2021-03-25 13:23 | P.PN_ITS ---
Subjective Subjective: Interval history: No events overnight pain under control Vitals/I&O/Wt Last Vital Signs Temp 98.0 F 03/25/21 11:54 Pulse 86 03/25/21 11:54 Resp 18 03/25/21 12:43 BP 124/76 03/25/21 11:54 Pulse Ox 95 03/25/21 11:54 03/24/21 03/25/21 03/25/21 22:59 06:59 14:59 Intake Total 100 / 336 360 / 360 Output Total 750 / 750 350 / 1100 Balance -750 / -514 -250 / -764 360 / 360 Weight last 48 hrs Weight 112.219 kg Weight 113.171 kg Physical Exam Narrative: EXAM NARRATIVE: Patient comfortable Stage III pressure abuse gluteal wound 13 x 11 x 2, no purulent drainage, pink granulation tissue at the edges Stage IV left heel pressure injury 3 x 2 x 0.4 cm Right heel pressure injury ulcer stage IV, black eschar around proximal wound edge 6 x 3 x 0.8 cm EOMI, PERRLA generalized anasarca No murmur appreciated, S1-S2 Excoriation morfin seems to be improving Appropriate mood and affect No respiratory distress Distended abdomen Abdominal pannus without active cellulitis has mild hyperemia with nystatin topical powder Urinary Catheter Management^: Cosme: Cath Placed During This Visit: yes Reason for Continuing Indwelling Catheter: Other Urinary Catheter Date of Insertion: 03/10/21 Urinary Catheter Time of Insertion: 10:08 Data : 03/25/21 04:44 03/25/21 04:44 A&P Assessment and plan (1) Adrenal insufficiency: Status: Acute (2) Acute on chronic heart failure with preserved ejection fraction (HFpEF): Status: Acute (3) Volume overload: Status: Acute (4) Pressure ulcers of skin of multiple topographic sites: Status: Acute (5) Anemia: Status: Acute Qualifiers: Iron deficiency anemia type: chronic blood loss (6) Hypothyroidism: Status: Chronic Qualifiers: Hypothyroidism type: unspecified Qualified Code(s): E03.9 - Hypothyroidism, unspecified (7) Acute metabolic encephalopathy: Status: Acute Additional A&P Information Multiple pressure injury ulcers Stage IV bilateral heel ulcers stage III left gluteal ulcer status post debridement Finished IV caspofungin regimen Currently on p.o. Levaquin chronic suppressive therapy as per culture and sensitivity report No signs of osteomyelitis Adrenal insufficiency: Hydrocortisone fludrocortisone and levothyroxine to be continued hemodynamically stable Preserved ejection fraction with generalized anasarca: Continue PO potassium and Bumex TR[place] resolved Full code Lovenox for DVT prophylaxis, Lovenox 30 mg twice a day Consistent carb diet Awaiting placement to LTAC versus swing bed acceptance Dressing recommendations: wound care in the form of packing daily LEFT gluteal pressure injury ulcer with Kerlix wet-to-dry using half-strength Dakin'S solution followed by ABDs. For bilateral heels will use Santyl daily ointment offered by ABDs followed by Gerardo and Castillo wrap Can change secondary dressing when excessive moisture is noticed by nursing staff. 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
[2021-03-25] MEDS: potassium chloride oral liq 20 mEq/15 mL UDC 40 MEQ PO (16:49)
[2021-03-25 17:41] LABS: Glucose Point of Care 103 mg/dL (70-110)
[2021-03-25] MEDS: collagenase oint 30 gm 1 APPLIC TOPICAL (18:22)
[2021-03-25] MEDS: nystatin powder 15 gm Btl 1 APPLIC TOPICAL ×2 (18:23→18:37)
[2021-03-25] MEDS: diphenhydrAMINE 25 mg Capsule PO (20:38)
[2021-03-25] MEDS: sodium hypochlorite 0.25% Btl 473 mL 1 APPLIC TOPICAL (20:41)
[2021-03-25 21:45] LABS: Glucose Point of Care 98 mg/dL (70-110)
[2021-03-26] VITALS (18 sets, daily range): BP systolic 114–128; BP diastolic 68–95; PULSE 84–102; RESP 9–20; TEMP 36.4–37; O2SAT 93–99
[2021-03-26] MEDS: HYDROmorphone 1 mg/mL INJ 1 mL 0.5 MG IVP ×6 (00:30→21:33)
[2021-03-26] MEDS: enoxaparin 30 mg/0.3 mL Syringe SUBCUT (04:12)
[2021-03-26] MEDS: ondansetron 2 mg/ML SDV 2 mL 4 MG IVP ×2 (04:33→17:32)
[2021-03-26] MEDS: thiamine 100 mg Tablet PO (06:02)
[2021-03-26] MEDS: oxyCODONE 5 mg IR Tab/Cap 10 MG PO ×2 (06:02→20:43)
[2021-03-26] MEDS: levoFLOXacin 750 mg Tablet PO (06:04)
[2021-03-26] MEDS: cholecalciferol (vitamin D3) 5,000 unit Tablet 5000 UNIT PO (06:04)
[2021-03-26] MEDS: diphenhydrAMINE 25 mg Capsule PO ×2 (06:04→18:35)
[2021-03-26 07:03] LABS: Glucose Point of Care 80 mg/dL (70-110)
[2021-03-26] MEDS: pantoprazole DR 40 mg Tablet PO (08:59)
[2021-03-26] MEDS: potassium chloride ER 20 mEq Tablet PO (08:59)
[2021-03-26] MEDS: levETIRAcetam 500 mg Tablet 1000 MG PO ×2 (08:59→20:39)
[2021-03-26] MEDS: hydrocortisone 10 mg Tablet 5 MG PO ×2 (09:00→18:32)
[2021-03-26] MEDS: calcitriol 0.25 mcg Capsule 0.5 MCG PO ×2 (09:00→18:32)
[2021-03-26] MEDS: neomycin-poly-bacitracin oint 28 gm 1 APPLIC TOPICAL ×2 (09:00→18:36)
[2021-03-26] MEDS: nystatin powder 15 gm Btl 1 APPLIC TOPICAL ×2 (09:00→18:38)
[2021-03-26] MEDS: collagenase oint 30 gm 1 APPLIC TOPICAL (09:00)
[2021-03-26] MEDS: fludrocortisone 0.1 mg Tablet PO (09:01)
--- NOTE | 2021-03-26 11:46 | PM.PN ---
Subjective Subjective: Interval history: Dr. Nixon is planning to do debridement tomorrow We will make her n.p.o. after midnight and stop her Lovenox No overnight events pain well controlled at current regimen Vitals/I&O/Wt Last Vital Signs Temp 97.5 F L 03/26/21 08:00 Pulse 87 03/26/21 09:52 Resp 20 H 03/26/21 09:52 BP 128/81 03/26/21 08:00 Pulse Ox 98 03/26/21 09:52 03/25/21 03/26/21 03/26/21 22:59 06:59 14:59 Intake Total 120 / 480 236 / 236 Output Total 900 / 900 200 / 1100 Balance -780 / -420 -200 / -620 236 / 236 Weight last 48 hrs Weight 111.493 kg Weight 112.219 kg Physical Exam Narrative: EXAM NARRATIVE: She had covered her face with the blanket when I entered the room, very pleasant and cooperative during my evaluation stage III pressure abuse gluteal wound 13 x 11 x 2, no purulent drainage, pink granulation tissue at the edges Stage IV left heel pressure injury 3 x 2 x 0.4 cm Right heel pressure injury ulcer stage IV, black eschar around proximal wound edge 6 x 3 x 0.8 cm EOMI, PERRLA generalized anasarca No murmur appreciated, S1-S2 Excoriation morfin seems to be improving Appropriate mood and affect No respiratory distress Distended abdomen Abdominal pannus without active cellulitis has mild hyperemia with nystatin topical powder Urinary Catheter Management^: Cosme: Cath Placed During This Visit: yes Reason for Continuing Indwelling Catheter: Other Urinary Catheter Date of Insertion: 03/10/21 Urinary Catheter Time of Insertion: 10:08 Data : 03/25/21 04:44 03/25/21 04:44 A&P Assessment and plan (1) Adrenal insufficiency: Status: Acute (2) Acute on chronic heart failure with preserved ejection fraction (HFpEF): Status: Acute (3) Volume overload: Status: Acute (4) Acute kidney injury superimposed on CKD: Status: Acute (5) Chronic heart failure with preserved ejection fraction (HFpEF): Status: Acute (6) Pressure ulcers of skin of multiple topographic sites: Status: Acute (7) Hypoglycemia: Status: Acute (8) Hypothyroidism: Status: Chronic Qualifiers: Hypothyroidism type: unspecified Qualified Code(s): E03.9 - Hypothyroidism, unspecified (9) Acute metabolic encephalopathy: Status: Acute (10) Acute kidney injury: Status: Acute Additional A&P Information Stage IV bilateral heel ulcers Status post debridement Black eschar tissue with yellow to gutierrez discharge from left heel noted, Dr. Nixon will take her to the OR for debridement tomorrow Status post I&D and currently on p.o. Levaquin chronic suppressive therapy Her ESR is 22, x-ray did not show any active signs of osteomyelitis however she is at high risk for osteomyelitis, sepsis, septic shock and demise wound care in the form of packing daily LEFT gluteal pressure injury ulcer with Kerlix wet-to-dry using half-strength Dakin'S solution followed by ABDs. No signs of arterial insufficiency, no signs of DVT For bilateral heels will use Santyl daily ointment offered by ABDs followed by Kerlix and Castillo wrap Can change secondary dressing when excessive moisture is noticed by nursing staff. Adrenal insufficiency currently blood pressure is stable on fludrocortisone and hydrocortisone maintenance regimen Anasarca: Resume Bumex with potassium supplementation Lovenox for DVT prophylaxis: On hold in anticipation of debridement tomorrow I put her on 30 mg twice a day because of her higher BMI Full code Attestations Medical Necessity Statement*: Going for debridement tomorrow Time Spent in Patient Care: 15 to 30 minutes Coding Level of Care Code Acute Public Health Internship for [facility]g Fwd Diagnoses Adrenal insufficiency E27.40 Acute on chronic heart failure with preserved ejection fraction (HFpEF) I50.33 Volume overload E87.70 Acute kidney injury superimposed on CKD N17.9; N18.9 Chronic heart failure with preserved ejection fraction (HFpEF) I50.32 Pressure ulcers of skin of multiple topographic sites L89.90 Hypoglycemia E16.2 Hypothyroidism E03.9 Hypothyroidism type: unspecified Acute metabolic encephalopathy G93.41 Acute kidney injury N17.9
--- NOTE | 2021-03-26 12:10 | PC.SOCIAL ---
IMM UPDATE Gave patient IMM update. Provided copy of pg 2 of IMM. Verbalized understanding. Initialed, dated, timed and placed in chart.
--- NOTE | 2021-03-26 12:49 | PC.NURSE ---
Physician instructions to hold lovenox and make pt NPO after midnight for surgery in the morning.
--- NOTE | 2021-03-26 13:18 | PC.NUTR ---
Addendum entered by Javier Guzman 03/26/21 13:20: Continue to recommend addition of lactose intolerance and fish/seafood allergy to EMR, per pt report at previous assessment. Original Note: Nutrition follow up: Dietary staff previously reported to this RD that pt did not like the nepro/sherbet blend, and this has been stopped. Receiving Nepro with meals. Recommend to encourage po intakes of meals/supplements to optimize nutrition and promote wound healing. No changes warranted at this time. Recommend to include 8 oz Nepro supplementation with meals again when diet resumed after NPO status. See RD assessments for further details.
[2021-03-26 20:53] LABS: Glucose Point of Care 107 mg/dL (70-110)
[2021-03-27] VITALS (38 sets, daily range): BP systolic 102–160; BP diastolic 61–84; PULSE 70–103; RESP 12–25; TEMP 36.4–37.1; O2SAT 18–99
[2021-03-27] MEDS: diphenhydrAMINE 25 mg Capsule PO ×3 (00:30→22:10)
[2021-03-27] MEDS: oxyCODONE 5 mg IR Tab/Cap 10 MG PO ×3 (00:30→22:10)
[2021-03-27] MEDS: ondansetron 2 mg/ML SDV 2 mL 4 MG IVP ×3 (01:35→22:11)
[2021-03-27] MEDS: HYDROmorphone 1 mg/mL INJ 1 mL 0.5 MG IVP ×6 (01:35→23:17)
--- NOTE | 2021-03-27 05:34 | PC.NURSE ---
left hip dressing not changed due to no dakins solution available per pharmacy
[2021-03-27] MEDS: cholecalciferol (vitamin D3) 5,000 unit Tablet 5000 UNIT PO (06:20)
[2021-03-27] MEDS: thiamine 100 mg Tablet PO (06:20)
[2021-03-27] MEDS: levoFLOXacin 750 mg Tablet PO (06:20)
[2021-03-27 06:44] LABS: Glucose Point of Care 103 mg/dL (70-110)
[2021-03-27 06:44] LABS: Glucose Point of Care 62 mg/dL (70-110)
[2021-03-27] MEDS: levETIRAcetam 500 mg Tablet 1000 MG PO ×2 (08:56→19:10)
[2021-03-27] MEDS: fludrocortisone 0.1 mg Tablet PO (08:56)
[2021-03-27] MEDS: hydrocortisone 10 mg Tablet 5 MG PO ×2 (08:56→19:10)
[2021-03-27] MEDS: bumetanide 1 mg Tablet PO (08:56)
[2021-03-27] MEDS: calcitriol 0.25 mcg Capsule 0.5 MCG PO ×2 (08:56→19:09)
[2021-03-27] MEDS: potassium chloride ER 20 mEq Tablet PO (08:57)
[2021-03-27] MEDS: docusate sodium 100 mg Capsule PO (08:57)
[2021-03-27] MEDS: pantoprazole DR 40 mg Tablet PO (08:57)
[2021-03-27] MEDS: collagenase oint 30 gm 1 APPLIC TOPICAL ×2 (09:04→20:18)
[2021-03-27] MEDS: nystatin powder 15 gm Btl 1 APPLIC TOPICAL ×2 (09:04→19:13)
[2021-03-27 10:16] LABS: Basophils % 0.4 %; Eosinophils # 0.6 10^3/uL (0.0-0.8); Hematocrit 30.8 % (37.0-47.0); Hemoglobin 8.9 g/dL (11.5-15.3); Lymphocytes # 1.2 10^3/uL (0.8-4.8); Lymphocytes % 15.1 %; Mean Corpuscular HGB Conc 28.9 g/dL (30.0-36.0); Mean Corpuscular Hemoglobin 28.2 pg (28.0-34.0); Mean Corpuscular Volume 97.5 fL (81-99); Mean Platelet Volume 11.2 fL (7.4-10.4); Monocytes % 11.6 %; Neutrophils % 64.7 %; Nucleated Red Blood Cells % 0 %; Platelet Count 213 10^3/cmm (130-400); Red Blood Count 3.16 10^6/uL (4.1-5.3); Red Cell Distribution Width 17.2 % (12.1-15.1); White Blood Count 8.2 10^3/uL (4.0-10.0)
[2021-03-27 10:34] LABS: Anion Gap 9.8 (5-19); Blood Urea Nitrogen 3 mg/dL (6-20); Calcium 7.5 mg/dL (8.5-10.5); Carbon Dioxide 34 mmol/L (22-29); Chloride 103 mmol/L (98-107); Glomerular Filtration Rate 171.8 mL/min (90-130); Glucose 78 mg/dL (65-115); Osmolality Calculated 291 mOsm/kg (285-295); Potassium 3.8 mmol/L (3.5-5.1); Sodium 143 mmol/L (136-145)
--- NOTE | 2021-03-27 10:58 | PC.NURSE ---
Pt refused blood sugar check
[2021-03-27] MEDS: neomycin-poly-bacitracin oint 28 gm 1 APPLIC TOPICAL ×2 (11:04→19:12)
[2021-03-27 12:19] LABS: Glucose Point of Care 90 mg/dL (70-110)
--- NOTE | 2021-03-27 13:00 | PC.NURSE ---
hylton catheter emptied on departure to OPS for surgery prep. 1300ml out
--- NOTE | 2021-03-27 13:05 | PM.PN ---
Subjective Subjective: Interval history: Patient overall is about the same Medications: Reviewed: Yes Vitals/I&O/Wt Last Vital Signs Temp 97.6 F 03/27/21 12:51 Pulse 78 03/27/21 12:51 Resp 18 03/27/21 12:51 BP 160/84 03/27/21 12:51 Pulse Ox 95 03/27/21 12:51 03/26/21 03/27/21 03/27/21 22:59 06:59 14:59 Output Total 650 / 650 400 / 1050 1300 / 1300 Balance -650 / -414 -400 / -814 -1300 / -1300 Weight last 48 hrs Weight 253 lb 8 oz Weight 245 lb 12.8 oz Physical Exam Narrative: EXAM NARRATIVE: Patient is conscious alert oriented X3 BMI 45 Head and neck examination PERRLA no masses no cervical lymphadenopathy no jaundice Dressing on the left gluteal and bilateral heels in place Urinary Catheter Management^: Cosme: Cath Placed During This Visit: yes Reason for Continuing Indwelling Catheter: Other Urinary Catheter Date of Insertion: 03/10/21 Urinary Catheter Time of Insertion: 10:08 Data : 03/27/21 09:32 03/27/21 09:32 A&P Assessment and plan (1) Pressure ulcers of skin of multiple topographic sites: As the patient's continues being in the hospital and requiring multiple dressing changes through the day. Her pressure injury ulcers developed necrotic tissues and will require sharp debridement in the OR today. Indications, risks, benefits alternatives all discussed with the patient she did agree to proceed accordingly. Informed consent per chart Status: Acute Attestations Medical Necessity Statement*: Per hospitalist service Time Spent in Patient Care: (>than 50% of time spent in counselling and/or direct pt care on unit). Coding Level of Care Code Acute Electric Cell Tender for Janeen Ray Diagnoses Pressure ulcers of skin of multiple topographic sites L89.90
--- NOTE | 2021-03-27 13:13 | PM.PN ---
Subjective Subjective: Interval history: Patient awaiting debridement by Dr. Nixon today, no overnight events Vitals/I&O/Wt Last Vital Signs Temp 97.6 F 03/27/21 12:51 Pulse 78 03/27/21 12:51 Resp 18 03/27/21 12:51 BP 160/84 03/27/21 12:51 Pulse Ox 95 03/27/21 12:51 03/26/21 03/27/21 03/27/21 22:59 06:59 14:59 Output Total 650 / 650 400 / 1050 1300 / 1300 Balance -650 / -414 -400 / -814 -1300 / -1300 Weight last 48 hrs Weight 114.986 kg Weight 111.493 kg Physical Exam Narrative: EXAM NARRATIVE: stage III pressure abuse gluteal wound 13 x 11 x 2, no purulent drainage, pink granulation tissue at the edges Stage IV left heel pressure injury 3 x 2 x 0.4 cm Right heel pressure injury ulcer stage IV, black eschar around proximal wound edge 6 x 3 x 0.8 cm EOMI, PERRLA generalized anasarca No murmur appreciated, S1-S2 Excoriation morfin seems to be improving Appropriate mood and affect No respiratory distress Distended abdomen Abdominal pannus without active cellulitis has mild hyperemia with nystatin topical Urinary Catheter Management^: Cosme: Cath Placed During This Visit: yes Reason for Continuing Indwelling Catheter: Other Urinary Catheter Date of Insertion: 03/10/21 Urinary Catheter Time of Insertion: 10:08 Data : 03/27/21 09:32 03/27/21 09:32 A&P Assessment and plan (1) Adrenal insufficiency: Status: Acute (2) Volume overload: Status: Acute (3) Hypotension: Status: Acute (4) Acute on chronic heart failure with preserved ejection fraction (HFpEF): Status: Acute (5) Acute kidney injury superimposed on CKD: Status: Acute (6) Anemia: Status: Acute Qualifiers: Iron deficiency anemia type: chronic blood loss (7) Hypoglycemia: Status: Acute (8) Acute kidney injury: Status: Acute (9) Pressure ulcers of skin of multiple topographic sites: Status: Acute (10) Stage IV pressure ulcer: Status: Acute (11) Stage III pressure ulcer: Status: Acute Additional A&P Information Stage IV bilateral heel ulcers Awaiting debridement in the in the OR today by Dr. Giurgius For bilateral heels will use Santyl daily ointment offered by Dillan followed by Gerardo and Castillo wrap Can change secondary dressing when excessive moisture is noticed by nursing staff. Adrenal insufficiency currently blood pressure is stable on fludrocortisone and hydrocortisone maintenance regimen Anasarca: Resume Bumex with potassium supplementation Lovenox for DVT prophylaxis: Resume her Lovenox 6 hours after her debridement Full code She has been accepted at the [facility] likely will be discharged tomorrow Attestations Medical Necessity Statement*: Anticipating discharge tomorrow Time Spent in Patient Care: less than 15 minutes Coding Level of Care Code Acute Service Center Manager for [facility]g Fwd Diagnoses Adrenal insufficiency E27.40 Volume overload E87.70 Hypotension I95.9 Acute on chronic heart failure with preserved ejection fraction (HFpEF) I50.33 Acute kidney injury superimposed on CKD N17.9; N18.9 Anemia D64.9 Iron deficiency anemia type: chronic blood loss Hypoglycemia E16.2 Acute kidney injury N17.9 Pressure ulcers of skin of multiple topographic sites L89.90 Stage IV pressure ulcer L89.94 Stage III pressure ulcer L89.93
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
--- NOTE | 2021-03-27 14:21 | P.OP_ITS ---
Operative Report Date of procedure: March 27, 2021 Pre-op Diagnosis: Pressure injury ulcers Post-op diagnosis: same Procedure Done: Sharp debridement of pressure injury ulcers of the left gluteal and bilateral heel areas Implants: Packing of left gluteal pressure injury ulcer with large piece of Surgicel followed by Kerlix wet-to-dry using saline Packing of bilateral heel ulcers with Kerlix wet-to-dry using normal saline Specimens removed/disposition: Tissues for cultures and sensitivities from left gluteal and bilateral heel pressure injury ulcer Surgeon: Marco A Nixon Aircraft Sales Representative: Yumiko Amor Circulating nurse Marina Anesthesia: General (LMA c software engineer Kim) Estimated blood loss (mL): 15 Complications: No immediate complications Condition: stable Disposition: floor Brief History: Symptomatic pressure injury ulcers Procedure: After identifying the patient in the holding area, patient was then taken directly to the operative suite, patient was on her hospital bed and received an LMA per anesthesia provider, there after was placed in right lateral position. All pressure points were padded by me and the OR team.patient was already on therapeutic antibiotics. prep and drape of the left gluteal region as well as bilateral heel areas, all were done under the usual sterile technique. Time-out was done verifying the patient's name/date of /planned procedure and destination after the procedure, all were in agreement. Started by excising the unhealthy necrotic indurated tissues of the left gluteal pressure injury ulcer first which looked much better in comparison to the prior debridement.Incision was created at the skin level and went all the way down to the subcutaneous and musculofascial layer,at this point sharp debridement was achieved, noticed tunneling cephalad. The necrotic tissues were sent for cultures and sensitivities. Copious and thorough irrigation using Pulsavac with warm normal saline, hemostasis was achieved using Bovie cauterization and [id number] 3-0 silk sutures followed by placement of a large piece of Surgicel.Followed by packing the wound with Kerlix impregnated normal saline to dry.Then ABDs. Attention now was deviated towards the left heel ulcer and sharp debridement was done as well all the way to the muscle layer, cultures were sent in the form of tissues. Followed by packing with a dry using Kerlix and normal saline Attention was deviated now towards the right heel ulcer, and sharp debridement was obtained and more tissues for cultures were sent from the right heel ulcer, sharp debridement was done all the way to the musculofascial layer. Left gluteal pressure injury ulcer stage IV Predebridement measurements 13.4 x 10.5 x 5 cm Post debridement measurements 14 x 11 x [address] to the musculofascial layer Undermining was appreciated towards the cephalad part of the left gluteal pressure injury ulcer Left heel pressure injury ulcer stage IV Predebridement measurements 4.4 x 3 x 0.5 cm Post debridement measurements 4.4 x 3 x [address] to the musculofascial layer Right heel pressure injury ulcer stage IV Predebridement measurements 5.5 x 4 x 0.3 Post debridement measurements 6 x 4.3 x [address] to the musculofascial layer without bone exposure Dry dressing was applied in the form of ABDs Kerlix and Castillo wrap to the bilateral heel ulcers Patient tolerated the procedure well, count of instruments ,needles and sponges were completed at the end of the procedure. Patient was then taken directly to the PACU in in a stable condition. I was present for the whole entire procedure
[2021-03-27] MEDS: fentaNYL 50 mcg/mL INJ 2mL IVP (14:44)
--- NOTE | 2021-03-27 15:11 | SUR.PHASEI ---
1435 RECIEVED PT TO PACU AWAKE ALERT CRYING WITH PAIN , PT VERBALLY ASKING FOR PAIN MEDS SEE MEDS GIVEN, DILAUDID PULLED BUT NO ORDER 1503 DR CALDWELL AT BEDSIDE AND DILAUDID ORDERED 0.5MG , SEE PAIN MED GIVEN 1508 PT NOW C/O OF NAUSEA FROM PAIN, SEE MED GIVEN VSS
--- NOTE | 2021-03-27 16:47 | ANE.PACU2 ---
Inpatient post-anesthesia follow up: Airway intact: Yes Vital signs: Temperature 97.8 F Pulse Rate [Monito r] 123 Pulse Rate 70 Respiratory Rate 18 Blood Pressure [Le ft Arm] 103/83 Blood Pressure 129/80 Pulse Oximetry 98 Oxygen Delivery Me thod Nasal Cannula Oxygen Flow Rate 4 Fraction of Inspir ed Oxygen 30 Hydration adequate: Yes Nausea and vomiting: No Pain level: 3 Mental status: Baseline
[2021-03-27 17:11] LABS: Glucose Point of Care 101 mg/dL (70-110)
[2021-03-27] MEDS: enoxaparin 40 mg/0.4 mL Syringe SUBCUT (19:11)
[2021-03-27] MEDS: sodium hypochlorite 0.25% Btl 473 mL 1 APPLIC TOPICAL (20:18)
[2021-03-27 20:32] LABS: Glucose Point of Care 147 mg/dL (70-110)
--- NOTE | 2021-03-27 21:19 | PC.NURSE ---
Patient refuses to have wound dressings looked at or changed. Patient states, the doctor said no one is supposed to touch them tonight.
--- NOTE | 2021-03-27 22:22 | PC.NURSE ---
Addendum entered by Krissy Garrison RN 03/28/21 01:31: Benadryl was found in sheets and disposed of properly. Original Note: Patient dropped Benadryl in bed. Unable to find. Obtained another Benadryl from [facility].
[2021-03-28] VITALS (15 sets, daily range): BP systolic 106–126; BP diastolic 58–80; PULSE 30–101; RESP 12–25; TEMP 36.6–36.8; O2SAT 95–99
[2021-03-28] MEDS: HYDROmorphone 1 mg/mL INJ 1 mL 0.5 MG IVP ×3 (03:52→13:30)
[2021-03-28] MEDS: cholecalciferol (vitamin D3) 5,000 unit Tablet 5000 UNIT PO (05:52)
[2021-03-28] MEDS: thiamine 100 mg Tablet PO (05:52)
[2021-03-28] MEDS: levoFLOXacin 750 mg Tablet PO (05:53)
[2021-03-28] MEDS: oxyCODONE 5 mg IR Tab/Cap 10 MG PO ×2 (05:53→11:43)
[2021-03-28 06:45] LABS: Glucose Point of Care 113 mg/dL (70-110)
[2021-03-28 07:41] LABS: Blood Urea Nitrogen 3 mg/dL (6-20); Calcium 7.2 mg/dL (8.5-10.5); Carbon Dioxide 36 mmol/L (22-29); Chloride 102 mmol/L (98-107); Glomerular Filtration Rate 132.8 mL/min (90-130); Glucose 93 mg/dL (65-115); Osmolality Calculated 296 mOsm/kg (285-295); Sodium 145 mmol/L (136-145)
[2021-03-28 07:44] LABS: Anion Gap 10.5 (5-19); Potassium 3.5 mmol/L (3.5-5.1)
[2021-03-28] MEDS: levETIRAcetam 500 mg Tablet 1000 MG PO (08:55)
[2021-03-28] MEDS: pantoprazole DR 40 mg Tablet PO (08:55)
[2021-03-28] MEDS: fludrocortisone 0.1 mg Tablet PO (08:55)
[2021-03-28] MEDS: potassium chloride ER 20 mEq Tablet PO (08:55)
[2021-03-28] MEDS: calcitriol 0.25 mcg Capsule 0.5 MCG PO (08:55)
[2021-03-28] MEDS: bumetanide 1 mg Tablet PO (08:55)
--- NOTE | 2021-03-28 09:53 | PC.CHAP ---
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 outcomes specialist visit [] Patient/Family/Request visit [] Outpatient visit [] Follow-up visit [] Physician referral [] Code/Alert [x] Routine visit [] Staff referral [] Actively dying [] Patient sleeping [] Family support [] [] Out of room [] Palliative care [] [] Receiving care in room [] Pre-surgical visit [] Trauma [] Long length of stay [] ICU visit [] Other: Relational/Emotional Strength [] Patient feels connected with others/family/visitors/staff [] Distress [] Loneliness/isolation [] Abandonment Spirituality of Patient [] Person of Angy [] Attends Islam of their Angy [] Believes in Prayer [] Reads Bible or Jew materials [] There are Spiritual issues to be addressed Camera Tuning Engineer Interventions [x] Prayer [x] Active listening [x] Non-anxious presence [x] Spiritual/emotional support [] Crisis/trauma care [] Spiritual counseling [] Bereavement support [] Provided bereavement packet [] Provided Bible/devotional materials [] Provided toy/stuffed animal, coloring book to patient or family member [] Provided Communion [] Anointing/[place] [] Salvation [x] Completed spiritual assessment [] Other: Impact on Illness or Injury [] Angry [] Fearful [] Anxious [] Often cries [] Exhaustion [] Unable to work [] Unable to attend mu-ism [] Unable to walk/stand [] Unable to read [] Unable to drive [] Unable to eat/drink [] Unable to sleep [] Unable to be with family [] Patient intubated [] Other: [facility].. still has open wounds on legs, surgery again yesterday Time spent with patient 15 min
[2021-03-28 11:01] LABS: Glucose Point of Care 74 mg/dL (70-110)
--- NOTE | 2021-03-28 11:31 | PC.SOCIAL ---
IMM Update Pg. 2 of IMM updated and reviewed with patient. Copy provided.
[2021-03-28 11:37] LABS: SARS Covid-2 Antigen Negative (Negative)
[2021-03-28] MEDS: diphenhydrAMINE 25 mg Capsule PO (11:44)
--- NOTE | 2021-03-28 13:30 | PC.NURSE ---
Drsgs changed per MDs order. Pt received Dilaudid 0.5mg IVP for pain.
--- NOTE | 2021-03-28 16:11 | PC.NURSE ---
Pt discharged to [place]. Pt IV removed no redness or swelling noted. Pt discharge instructions given. Pt had no c/o pain or discomfort at the time of discharge. Pt transferred via EMS.
--- NOTE | 2021-03-28 18:18 | P.DS_ITS ---
Discharge Providers Date of Admission: 03/09/21 23:30 Date of Discharge: March 28, 2021 Attending Provider at Admission: Bettie Ann MD Attending Provider at Discharge: Magda Dennis MD Primary Care Provider: Octaviano Sue MD Diagnoses at Discharge Discharge Diagnosis (1) Adrenal insufficiency: Status: Acute (2) Volume overload: Status: Acute (3) Hypotension: Status: Acute (4) Acute on chronic heart failure with preserved ejection fraction (HFpEF): Status: Acute (5) Acute kidney injury superimposed on CKD: Status: Acute (6) Anemia: Status: Acute Qualifiers: Iron deficiency anemia type: chronic blood loss (7) Hypoglycemia: Status: Acute (8) Acute kidney injury: Status: Acute (9) Pressure ulcers of skin of multiple topographic sites: Status: Acute (10) Stage IV pressure ulcer: Status: Acute (11) Stage III pressure ulcer: Status: Acute Reason for Visit Reason for Visit: SOB, fluid coming out of legs Hospital Course Hospital Course Delores Mckeon is a 45-year-old woman with multiple medical conditions including type 2 diabetes heart failure preserved ejection fraction, GI bleed, COPD who was admitted on 03/10/2021 for acute metabolic encephalopathy, hypoglycemia, acute on chronic kidney disease,. ED records indicated that she has been outside all day in the truck from 9 AM to 5 PM. On admission, she was transfused PRBC and given IV fluids. She was transferred to the ICU for hypotension and volume overloaded state. She briefly required norepinephrine and was weaned to midodrine. She was transferred back to medical floor on 03/12/2021. Her pressure was maintained with midodrine. Work-up of hypotension led to diagnosis of adrenal insufficiency and hypothyroidism. She was started on IV hydrocortisone which was tapered down to p.o. regimen. Her levothyroxine dose was increased to 300 mcg. For her wounds general surgery was consulted. She was also positive with GI bleed FOBT positive, Dr. Sue was not keen to do another endoscopy given her wounds and edema. During her hospitalization she was treated with IV caspofungin for positive urine culture Yazmin Krusei for 14 days Her broad-spectrum antibiotics were deescalated to p.o. Levaquin after culture and sensitivity report No bacteremia noted hydroCortisone 5 mg twice a day along fludrocortisone 0.1mg daily, levothyroxine 300 mcg For DVT prophylaxis she was kept on Lovenox, no further GI bleed were noticed, hemoglobin stayed stable no hypotension noticed. Venous Doppler ruled out DVT Arterial Doppler did not reveal any arterial ischemia Her wound culture that was sent from the OR grew E. coli, Proteus vulgaris, flavobacterium, sensitive to Levaquin She was refused by most of senior living facilities in [place], patient was reluctant to go go to long-term LTAC or swing bed however agreed and she finally got accepted at [facility] I have decided to discharge her on her home regimen of Eliquis considering the fact her hemoglobin stayed stable and her bedbound status to prevent DVT She will need Levaquin chronic suppressive therapy Her foot x-ray did not reveal osteomyelitis ESR 22 Her PICC line was placed on 03/15 which will be discontinued before discharge She will be discharged with a Cosme catheter to avoid contamination of her stage IV left gluteal ulcer, catheter was placed on 03/10 She went for wound debridement twice First debridement on 03/18 Left gluteal pressure injury ulcer stage III Predebridement measurements 12 x 10.5 x 0.1 cm Post debridement measurements 13.5 x 11 x 2 cm Cav[place] towards the cephalad part of the ulcer, debridement was done all the way to the subcutaneous layer. Hemostasis using multiple 3-0 silk [id number] Left heel pressure injury ulcer stage IV Predebridement measurements 3 x 2 x 0.1 cm Post debridement measurements 3 x 2 x 0[address] to the muscle layer without bone exposure Figure of 3-0 silk for hemostasis Right heel pressure injury ulcer stage IV Predebridement measurements 6 x 3 x 0.1 cm Post debridement measurements 6 x 3 x 0.[address] to the musculofascial layer without bone exposure Second debridement on 03/27 Sharp debridement of pressure injury ulcers of left gluteal and bilateral heel Left gluteal pressure injury ulcer stage IV Predebridement measurements 13.4 x 10.5 x 5 cm Post debridement measurements 14 x 11 x [address] to the musculofascial layer Undermining was appreciated towards the cephalad part of the left gluteal pressure injury ulcer Left heel pressure injury ulcer stage IV Predebridement measurements 4.4 x 3 x 0.5 cm Post debridement measurements 4.4 x 3 x [address] to the musculofascial layer Right heel pressure injury ulcer stage IV Predebridement measurements 5.5 x 4 x 0.3 Post debridement measurements 6 x 4.3 x 0.[address] to the musculofascial layer without bone exposure Pathology report 03/22: Final Diagnosis A. Skin and soft tissue, left gluteal ulcer , excision: ?Ulcerated skin with gangrenous necrosis, microabscesses and granulation tissue, consistent with pressure ulcer. ?No malignancy identified. Dr. Nixon is available at wound care clinic for follow-up if Delores has no issues with transportation wound care in the form of packing daily LEFT gluteal pressure injury ulcer with Kerlix wet-to-dry using half-strength Dakin'S solution followed by ABDs. Physical Exam Narrative: EXAM NARRATIVE: stage III pressure abuse gluteal wound 13 x 11 x 2, no purulent drainage, pink granulation tissue at the edges Stage IV left heel pressure injury 3 x 2 x 0.4 cm Right heel pressure injury ulcer stage IV, black eschar around proximal wound edge 6 x 3 x 0.8 cm EOMI, PERRLA generalized anasarca No murmur appreciated, S1-S2 Excoriation morfin seems to be improving Appropriate mood and affect No respiratory distress Distended abdomen Abdominal pannus without active cellulitis has mild hyperemia with nystatin topical Urinary Catheter Management^: Cosme: Urinary Catheter Management^: Cosme: Cath Placed During This Visit: yes Reason for Continuing Indwelling Catheter: Other Urinary Catheter Date of Insertion: 03/10/21 Urinary Catheter Time of Insertion: 10:08 Discharge Data Data Completed and Pending: Completed Studies During Hospitalization Category Date Time Status CT chest abd pel wo con Routine Cat Scan 03/13/21 19:[address] head wo con* 7 0450 Routine Cat Scan 03/11/21 05:[address] head wo con* 7 0450 Urgent Cat Scan 03/09/21 18:33 Completed XR chest 1V nichole ble [id number] Routine Exams 03/18/21 04:00 Completed XR chest 1V nichole ble [id number] Urgent Exams 03/09/21 18:33 Completed XR foot LT 2V 736 20 Routine Exams 03/24/21 14:02 Completed XR foot RT 2V 736 20 Routine Exams 03/24/21 14:02 Completed Pathology: Surgic al [PTH] Routine Pth 03/18/21 11:06 [place] [id number] Rout ine Ultrasound 03/19/21 10:02 [place] [id number] Routin e Ultrasound 03/14/21 19:13 Completed Pending at discharge Category Date Time Status Tissue Culture an d Gram Stain Routi ne Lab 03/27/21 14:15 Results Tissue Culture an d Gram Stain Routi ne Lab 03/27/21 14:15 Results Tissue Culture an d Gram Stain Routi ne Lab 03/27/21 14:15 Results Labs from last 24 hours 03/28/21 03/28/21 03/28/21 11:00 10:52 07:12 Sodium 145 Potassium 3.5 Chloride 102 Carbon Dioxide 36 H Anion Gap 10.5 BUN 3 L Creatinine 0.5 GFR Calculation 132.8 H Glucose 93 POC Glucose 74 Calculated Osmolal ity 296 H Calcium 7.2 L SARS-CoV-2 Ag (Rap id) Negative 03/28/21 03/27/21 06:36 20:23 Sodium Potassium Chloride Carbon Dioxide Anion Gap BUN Creatinine GFR Calculation Glucose POC Glucose 113 H 147 H Calculated Osmolal ity Calcium SARS-CoV-2 Ag (Rap id) Vitals: Last Vital Signs Temp 98.1 F 03/28/21 16:00 Pulse 72 03/28/21 16:00 Resp 19 H 03/28/21 16:00 BP 126/80 03/28/21 16:12 Pulse Ox 95 03/28/21 15:00 Discharge Plan Discharge Patient Disposition: Xfer SNF Condition: Fair Prescriptions: New midodrine 5 mg Tablet 10 mg PO TID PRN (Reason: Systolic Blood Pressure) 30 Days Qty: 90 RF: 2 hydrocortisone 10 mg Tablet 5 mg PO BID 60 Days Qty: 120 RF: 2 levofloxacin 750 mg Tablet 750 mg PO DAILY@0600 30 Days Qty: 30 RF: 3 fludrocortisone 0.1 mg Tablet 0.1 mg PO DAILY 30 Days Qty: 30 RF: 3 Triple Antibiotic 3.5mg-400 unit- 5,000 unit/gram Ointment 1 applic topical BID Qty: 30 RF: 2 Nystop 100,000 unit/gram Powder 1 applic topical BID Qty: 60 RF: 0 oxycodone 5 mg Tablet 10 mg PO Q4H PRN (Reason: Severe Pain) 5 Days Qty: 20 RF: 0 HySept 0.25 % Solution 1 applic topical Q24H 30 Days Qty: 10 RF: 0 Continued epinephrine [EpiPen 2-Tim] 0.3 mg/0.3 mL auto-injector 0.3 mg IM PRN PRN (Reason: Allergic Reaction) RF: 0 potassium chloride [Klor-Con M20] 20 mEq tablet,ER particles/crystals 20 meq PO BID@799,1999 RF: 0 folic acid 1 mg tablet 1 mg PO DAILY@0700 RF: 0 fluticasone propionate [Flonase Allergy Relief] 50 mcg/actuation spray,suspension 1 spray INTRANASAL BID@799,1999 RF: 0 cholecalciferol (vitamin D3) 125 mcg (5,000 unit) tablet 5,000 unit PO DAILY@0700 RF: 0 thiamine mononitrate (vit B1) [Vitamin B-1 (mononitrate)] 100 mg tablet 100 mg PO DAILY@0700 RF: 0 tizanidine [Zanaflex] 2 mg capsule 2 mg PO Q12H PRN (Reason: muscle spasticity) Qty: 10 RF: 0 Narcan 4 mg/actuation spray,non-aerosol 4 mg INTRANASAL PRN PRN (Reason: OVERDOSE) RF: 0 diphenhydramine HCl 25 mg Capsule 25 mg PO Q6H PRN (Reason: Itching) Qty: 30 RF: 0 fluconazole 100 mg tablet 200 mg PO DAILY@0700 RF: 0 polyethylene glycol 3350 [Miralax] 17 gram powder in packet 17 g PO DAILY@0700 RF: 0 levetiracetam [Keppra] 500 mg tablet 1,000 mg PO BID@799,1999 RF: 0 sennosides-docusate sodium 8.6-50 mg tablet 1 tab-cap PO BID@799,1999 RF: 0 pantoprazole 40 mg tablet,delayed release (DR/EC) 40 mg PO BID@799,1999 RF: 0 gabapentin 100 mg capsule 200 mg PO TID@0800,1399,1999 RF: 0 albuterol sulfate [Ventolin HFA] 90 mcg/actuation HFA aerosol inhaler 2 puff inhalation DAILY@0700 RF: 0 calcitriol 0.25 mcg capsule 0.5 mcg PO DAILY@0700 RF: 0 ferrous gluconate 324 mg (37.5 mg iron) tablet 324 mg PO BID@799,1999 RF: 0 Eliquis 5 mg tablet 2.5 mg PO BID@0800,1999 RF: 0 Incruse Ellipta 62.5 mcg/actuation blister with device 1 inh INHALATION DAILY@0800 RF: 0 clonazepam 0.5 mg tablet 0.25 mg PO BID PRN (Reason: anxiety) Qty: 14 RF: 0 Changed Lasix 40 mg Tablet 40 mg PO DAILY MDD see pharmacy note Qty: 0 RF: 0 magnesium oxide 400 mg (241.3 mg magnesium) tablet 400 mg PO DAILY Qty: 0 RF: 0 levothyroxine 200 mcg capsule 300 mcg PO DAILY@0600 Qty: 0 RF: 0 Discontinued ibuprofen 200 mg Tablet 200 mg PO Q6H PRN (Reason: Pain) RF: 0 multivitamin with folic acid [Thera] 400 mcg tablet 1 tab PO DAILY@0700 RF: 0 linezolid 600 mg tablet 600 mg PO BID Qty: 8 RF: 0 levothyroxine 50 mcg Tablet 75 mcg PO DAILY@0600 30 Days Qty: 30 RF: 0 Discharge Orders: Discharge Order (Routine); Ordered 03/28/21 Ordered By: Magda Dennis Referrals: Octaviano Sue MD [Primary Care Provider] - Marco A Nixon MD [Physician] - None (Patient can follow-up with Dr. Nixon if no wound care available at [place]) Discharge Diet: Diabetic Discharge Activity: As per PT/OT instructions Patient Instructions: Wound Infection (DC), Pressure Ulcer (DC), Pressure Ulcer (GEN) Activity Restrictions/Additional Instructions: wound care in the form of packing daily LEFT gluteal pressure injury ulcer with Kerlix wet-to-dry using half-strength Dakin'S solution followed by ABDs Discharge Attestations Time Spent in Discharge Care*: less than 30 min Status at Discharge: Cognitive status at discharge: cognitively intact , Behavioral status at discharge: cooperative , Quality Metrics Clinical Quality Measures During this hospital stay, did patient experience: None Coding Level of Care Code Acute Chg FW DC note Diagnoses Adrenal insufficiency E27.40 Volume overload E87.70 Hypotension I95.9 Acute on chronic heart failure with preserved ejection fraction (HFpEF) I50.33 Acute kidney injury superimposed on CKD N17.9; N18.9 Anemia D64.9 Iron deficiency anemia type: chronic blood loss Hypoglycemia E16.2 Acute kidney injury N17.9 Pressure ulcers of skin of multiple topographic sites L89.90 Stage IV pressure ulcer L89.94 Stage III pressure ulcer L89.93
== END 2021-03-28 16:11 | disposition skilled nursing facility (03) | DRG 673 ==
LOC: ER 22:43 → MEDSURG 23:30 → ICU 03-11 23:43 → CSU 03-12 15:36
PROVIDERS: Internal Medicine; Surgery; Admitting Provider Hospitalist; Emergency Provider Emergency Medicine; PCP Internal Medicine; Visit Provider Internal Medicine
PROC: 0JBM0ZZ Excision of Left Upper Leg Subcutaneous Tissue and Fascia, Open Approach (ICD-10-PCS; principal; 2021-03-18 09:35)
PROC: 0KBW0ZZ Excision of Left Foot Muscle, Open Approach (ICD-10-PCS; principal; 2021-03-27 14:15)
DX: N17.9 Acute kidney failure, unspecified (principal); G93.41 Metabolic encephalopathy; L89.224 Pressure ulcer of left hip, stage 4; L89.624 Pressure ulcer of left heel, stage 4; L89.614 Pressure ulcer of right heel, stage 4; I50.33 Acute on chronic diastolic (congestive) heart failure; M62.82 Rhabdomyolysis; Z68.41 Body mass index [BMI] 40.0-44.9, adult; E87.2 Acidosis; K92.2 Gastrointestinal hemorrhage, unspecified; E27.40 Unspecified adrenocortical insufficiency; N39.0 Urinary tract infection, site not specified; Z87.440 Personal history of urinary (tract) infections; Z95.828 Presence of other vascular implants and grafts; Z86.718 Personal history of other venous thrombosis and embolism; K22.70 Barrett's esophagus without dysplasia; F31.9 Bipolar disorder, unspecified; F10.20 Alcohol dependence, uncomplicated; E11.22 Type 2 diabetes mellitus with diabetic chronic kidney disease; N18.30 Chronic kidney disease, stage 3 unspecified; E11.649 Type 2 diabetes mellitus with hypoglycemia without coma; J44.9 Chronic obstructive pulmonary disease, unspecified; Z99.81 Dependence on supplemental oxygen; Z86.19 Personal history of other infectious and parasitic diseases; E03.9 Hypothyroidism, unspecified; E66.9 Obesity, unspecified; Z86.711 Personal history of pulmonary embolism; I08.1 Rheumatic disorders of both mitral and tricuspid valves; E87.5 Hyperkalemia; Z79.01 Long term (current) use of anticoagulants; Z79.51 Long term (current) use of inhaled steroids; I27.20 Pulmonary hypertension, unspecified; D50.0 Iron deficiency anemia secondary to blood loss (chronic); I95.9 Hypotension, unspecified; B37.9 Candidiasis, unspecified; L89.222 Pressure ulcer of left hip, stage 2; L89.622 Pressure ulcer of left heel, stage 2; L89.612 Pressure ulcer of right heel, stage 2
CPT/HCPCS: 36415; 36416; 36430; 36569; 36592; 36600; 51702; 70450; 71045; 71250; 73620; 74176; 80048; 80053; 81001; 82274; 82306; 82310; 82330; 82533; 82550; 82607; 82728; 82746; 82747; 82803; 82962; 83540; 83550; 83735; 83880; 83970; 84100; 84134; 84439; 84443; 84550; 85025; 85610; 85651; 85730; 86850; 86900; 86920; 87040; 87070; 87077; 87086; 87106; 87176; 87186; 87205; 87426; 88304; 93005; 93925; 93970; 94640; 94660; 94664; 96361; 96372; 96374; 97110; 97162; 97530; 99285; C1751; C9113; J0610; J0637; J0696; J0834; J1170; J1200; J1450; J1644; J1650; J1720; J2270; J2370; J2405; J2704; J3010; J3475; J3480; J3490; J7030; J7040; J7050; J8499; P9016

== ENCOUNTER 2021-06-03 02:06 | Inpatient (IN) | payer MEDICARE, MEDICAID, SELFPAY ==
[2021-06-03] VITALS (46 sets, daily range): BP systolic 55–116; BP diastolic 40–78; PULSE 63–152; RESP 16–29; TEMP 36.3–36.9; O2SAT 85–98; BMI 32.4
--- NOTE | 2021-06-03 03:00 | XRR_ITS ---
PROCEDURE INFORMATION: Exam: XR Chest Exam date and time: 06/03/2021 3:00 AM Age: 45 years old Clinical indication: Chest wall pain; Additional info: Hypotension TECHNIQUE: Imaging protocol: XR of the chest. Views: 1 view. COMPARISON: CR XR chest 1V portable [id number] 03/18/2021 5:14 AM FINDINGS: Lungs: There is mild indistinctness of the pulmonary vasculature and some subtle increased linear opacities in the right mid and lower hemithorax, findings could represent mild pulmonary edema. Pleural spaces: Unremarkable. No pleural effusion. No pneumothorax. Heart/Mediastinum: There is a large hiatal hernia present measuring 14 5 cm transverse dimension. Bones/joints: Unremarkable. XR/XR chest 1V portable [id number] IMPRESSION: 1. Large hiatal hernia measuring 14.5 cm transverse dimension. 2. Mild indistinctness of the pulmonary vasculature with subtle increased linear opacities in the right mid and lower hemithorax may represent mild pulmonary edema.
[2021-06-03 03:39] LABS: Basophils % 0.3 %; Eosinophils # 0.5 10^3/uL (0.0-0.8); Eosinophils % 3.4 %; Hematocrit 34.9 % (37.0-47.0); Hemoglobin 11.1 g/dL (11.5-15.3); Lymphocytes # 1.5 10^3/uL (0.8-4.8); Mean Corpuscular HGB Conc 31.8 g/dL (30.0-36.0); Mean Corpuscular Hemoglobin 27.3 pg (28.0-34.0); Mean Platelet Volume 10.5 fL (7.4-10.4); Monocytes # 0.9 10^3/uL (0.2-0.9); Monocytes % 6.3 %; Neutrophils # 11.55 10^3/uL (1.8-7.7); Neutrophils % 79.5 %; Nucleated Red Blood Cells % 0 %; Platelet Count 291 10^3/cmm (130-400); Red Blood Count 4.06 10^6/uL (4.1-5.3); Red Cell Distribution Width 14.6 % (12.1-15.1); White Blood Count 14.6 10^3/uL (4.0-10.0)
[2021-06-03 03:58] LABS: Alanine Aminotransferase 8 U/L (0-33); Albumin Level 2.2 g/dL (3.5-5.2); Alcohol Level 262 mg/dL (0-10); Alkaline Phosphatase 215 IU/L (35-105); Anion Gap 22.2 (5-19); Aspartate Amino Transferase 7 U/L (0-32); Blood Urea Nitrogen 33 mg/dL (6-20); C Reactive Protein 51.3 mg/L (0.0-4.9); Calcium 7.3 mg/dL (8.5-10.5); Carbon Dioxide 16 mmol/L (22-29); Chloride 94 mmol/L (98-107); Glomerular Filtration Rate 12.4 mL/min (90-130); Glucose 136 mg/dL (65-115); Osmolality Calculated 277 mOsm/kg (285-295); Potassium 3.2 mmol/L (3.5-5.1); Sodium 129 mmol/L (136-145); Total Bilirubin 0.3 mg/dL (0.15-1.2); Total Protein 5.2 g/dL (6.6-8.7)
[2021-06-03 04:04] LABS: Procalcitonin 0.52 ng/mL (0-0.5)
[2021-06-03 04:11] LABS: Lactate (Lactic Acid level) 4.4 mmol/L (0.5-2.2)
[2021-06-03] MEDS: sodium chloride 0.9% 1,000 ML 999 ML IV (04:16)
[2021-06-03] MEDS: ondansetron 2 mg/ML SDV 2 mL 4 MG IVP ×2 (04:17→08:55)
[2021-06-03] MEDS: fentaNYL 50 mcg/mL INJ 2mL 75 MCG IVP (04:17)
[2021-06-03] MEDS: levofloxacin-dextrose 5 % 500 MG/100 ML PREMIX 100 MG IV (05:05)
[2021-06-03] MEDS: diphenhydrAMINE 50 mg/mL SDV 1mL IVP (05:50)
[2021-06-03] MEDS: HYDROmorphone 1 mg/mL INJ 1 mL 0.5 MG IVP (05:50)
[2021-06-03] MEDS: sodium chloride 0.9% 500 ML 999 ML IV (05:50)
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
--- NOTE | 2021-06-03 08:19 | PC.NURSE ---
Admission assessment: Pt stated she had dentures but they are not with her on admit. Pt stated she lives on her son's place but does not have anyone to help her at [facility]. Pt stated she has not been able to walk for a while now.
[2021-06-03] MEDS: ferrous gluconate 324 mg Tablet PO ×2 (08:47→20:29)
[2021-06-03] MEDS: apixaban 5 mg Tablet 2.5 MG PO ×2 (08:47→20:29)
[2021-06-03] MEDS: fludrocortisone 0.1 mg Tablet PO (08:47)
[2021-06-03] MEDS: midodrine 5 mg TABLET 10 MG PO (08:48)
[2021-06-03] MEDS: pantoprazole DR 40 mg Tablet PO (08:48)
[2021-06-03] MEDS: fluconazole 100 mg Tablet 200 MG PO (08:48)
[2021-06-03] MEDS: albuterol 8 gm MDI 2 PUFF INHALATION (08:55)
--- NOTE | 2021-06-03 10:41 | PC.PHAR ---
PT UNABLE TO VERIFY MEDICATIONS- WOULD NOT STAY AWAKE TO VERIFY MEDS. PT HAS NOT FILLED MOST MEDS SINCE MARCH. HYDROCORTISONE 50MG BID, LEVOTHYROXINE 300MCG PO DAILY, POTASSIUM CHLOR 20MEQ BID, CALCITRIOL 0.5 MG DAILY, FLUDROCORTISONE 0.1MG ONCE DAILY, KEPPRA 1000MG BID ALL FILLED ON 05/19/21.
[2021-06-03 11:03] LABS: Glucose Point of Care 83 mg/dL (70-110)
[2021-06-03 11:07] LABS: Glucose Point of Care 98 mg/dL (70-110)
--- NOTE | 2021-06-03 13:06 | P.PN_ITS ---
Subjective Subjective: Interval history: Patient was seen and examined this morning, she was complaining of generalized body pain as well as itching all over the body, has remained afebrile, made 250 cc urine output so far. On minimum levophed. Medications: Reviewed: Yes Vitals/I&O/Wt Last Vital Signs Temp 98.5 F 06/03/21 07:45 Pulse 113 H 06/03/21 10:45 Resp 27 H 06/03/21 10:45 BP 94/55 06/03/21 10:45 Pulse Ox 92 06/03/21 10:45 06/02/21 06/03/21 06/03/21 22:59 06:59 14:59 Intake Total 15.685 / 15.685 Balance 15.685 / 15.685 Weight last 48 hrs Weight 83.007 kg Physical Exam Const: COMMON NORMALS: patient oriented x3 HENMT: COMMON NORMALS: normocephalic and atraumatic HEAD & SCALP: normocephalic and atraumatic Resp: COMMON NORMALS: clear to auscultation bilaterally EFFORT & INSPECTION: Yes symmetric chest movement AUSCULTATION: clear to auscultation bilaterally Cardio: COMMON NORMALS: regular rate, regular rhythm, S1 normal heart sound present, S2 normal heart sound present, No gallops present (Cardio), No murmurs present (Cardio), No rub (Cardio) and Peripheral pulses 2+ throughout RATE: regular rate RHYTHM: regular rhythm HEART SOUNDS: S1 normal heart sound present and S2 normal heart sound present PERIPHERAL PULSES: Peripheral pulses 2+ throughout GI: COMMON NORMALS: Normal to inspection, nondistended, normoactive bowel sounds present, Soft to palpation, non-tender, No hepatosplenomegaly present and no masses AUSCULTATION: Yes normoactive bowel sounds PALPATION: Yes Soft to palpation and Yes No hepatosplenomegaly present RECTAL EXAM: deferred Extremity: NARRATIVE EXTREMITY EXAM: Lt outer quadrant thigh deep clean wound Neuro: COMMON NORMALS: patient oriented x3 Skin: NARRATIVE SKIN EXAM: Diffuse erythematous rash in both L/E Data : 06/03/21 03:30 06/03/21 03:30 Micro: Microbiology 06/03/21 03:30 Blood Culture - Preliminary Blood SPECIMEN COLLECTED 06/03/21 03:15 Blood Culture - Preliminary Blood SPECIMEN COLLECTED A&P Assessment and plan (1) Sepsis: Sepsis due to infected LLE wound. Blood Culture Urine Culture Lactic acid Procal Vancomycin Imipenam Status: Acute (2) Rash and nonspecific skin eruption: Diffuse Rash - nonspecific skin eruption ? Allergic reaction Benadryl Monitor for SJS Status: Acute (3) Adrenal insufficiency: Resume Forinef Midodrine 10 MG PO TID Status: Acute (4) Stage IV pressure ulcer: Status: Acute (5) Acute kidney injury: Acute Kidney injury / Hyponatremia Creatinine 3.9 NS bolus in ER Cautious IV hydration Cosme placed Nephrology consulted Status: Acute (6) Alcohol intoxication: Withdrawal protocol Status: Acute (7) DVT prophylaxis: Eliquis 2.5 mg BID Status: Acute Attestations Medical Necessity Statement*: Patient needs to be in the hospital for management of sepsis. Coding Level of Care Code Acute Dairy Lab Technician for [facility] Fwd Diagnoses Sepsis A41.9 Rash and nonspecific skin eruption R21 Adrenal insufficiency E27.40 Stage IV pressure ulcer L89.94 Acute kidney injury N17.9 Alcohol intoxication F10.929 DVT prophylaxis Z29.9
[2021-06-03] MEDS: diphenhydrAMINE 25 mg Capsule PO (13:09)
[2021-06-03] MEDS: gabapentin 100 mg Capsule 200 MG PO ×2 (13:10→20:29)
[2021-06-03 15:06] LABS: Add Urine Microscopic? YES; Bilirubin Urine 1+ (Negative); Blood Urine 3+ (Negative); Glucose Urine UA Norm (Normal); Ketones Urine 1+ (Negative); Leukocyte Esterase Urine 2+ (Negative); Nitrate Urine Negative (Negative); Protein Urine 2+ (Negative); Specific Gravity, Urine 1.015 (1.005-1.030); Urine Appearance Cloudy (CLEAR); Urine Color Dark Yellow (Yellow); Urobilinogen Urine 1 mg/dL (Negative); pH Urine 5 (5-7)
[2021-06-03 15:07] LABS: Add Urine Culture? Yes; Bacteria Urine 2+ /hpf; Squamous Epithelial Cell Urine 0-4 /hpf (0-5); WBC Urine TOO NUMEROUS TO CNT /hpf (0-5)
[2021-06-03 18:03] LABS: Glucose Point of Care 72 mg/dL (70-110)
--- NOTE | 2021-06-03 18:43 | PC.NURSE ---
Shift Note: Pt has been drowsy or yelling out about pain. She has been cranky, does not want to be moed or touched. She has Dilaudid PPRn for pain, has received it once this shift. She remains on Levophed gtt, it has been reduced to 2mcg/min. She did receive a dose of Midodrine today. Wet to dry dressings applied to left upper leg and right heel. Her legs and perineal area remain macerated, weepy, and edematous.. her blood sugars 79-100mg/dl this shift. She has refused to eat most of the food. HEr liquid intake has been minimal. Her son bought her a diet Dr Alexander. Frequent safety and comfort rounds continue. Orders and/or nursing care completed as indicated. Patient monitored for response to intervention and treatment(s). Education provided includes Levophed, wound care, Diabetic diets,. Patient and/or in home sales representative verbalized understanding but will continue to reinforce.. Will continue to monitor.
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
[2021-06-03 19:38] LABS: Glucose Point of Care 83 mg/dL (70-110)
[2021-06-03] MEDS: levETIRAcetam 500 mg Tablet 1000 MG PO (20:31)
--- NOTE | 2021-06-03 23:19 | PC.NURSE ---
Nurse Note; Start of shift; Pt alert and oriented x4, moves all extremities and sometimes follows commands; Difficult to arrouse at times but fully alert once awakened. Levophed at 2mcg at start of shift /currently running at 6mcg d/t map less than 65. BP within defined limits at present. Currently resting with eyes closed. 02 on @ 2L per NC/placed on while sleeping for 02 sats dropping to mid 80's. Pt c/o pain in legs, pain medication given as ordered and was effective per patient. All vs and assessments as charted; no distress noted at this time.
[2021-06-04] VITALS (60 sets, daily range): BP systolic 68–118; BP diastolic 42–83; PULSE 74–112; RESP 13–28; TEMP 36.2–37.4; O2SAT 88–98
[2021-06-04] MEDS: diphenhydrAMINE 25 mg Capsule PO ×3 (02:45→14:27)
--- NOTE | 2021-06-04 04:41 | PC.NURSE ---
NURSING NOTE: REFUSAL OF CARE: WENT INTO PATIENT'S ROOM AT THIS TIME TO CHECK ON PATIENT. OFFERED TO COMPLETELY CHANGE BED LINIENS AND CLEAN PT UP AT THIS TIME . PT REFUSED CARE AT THIS TIME STATING IT JUST HURTS TOO MUCH RIGHT NOW. PAIN MEDICATION GIVEN ORDERED THROUGHOUT SHIFT. PT C/O PAIN IN HANDS AND FEET D/T EDEMA. EXTEMITIES ELEVATED ON PILLOWS AND PATIENT REPOSITIONED FOR COMFORT. WILL CONTINUE TO MONITOR. ALL VS AND ASSESSMENTS CHARTED.
[2021-06-04] MEDS: levothyroxine 100 mcg Tablet 300 MCG PO (05:18)
[2021-06-04] MEDS: ondansetron 2 mg/ML SDV 2 mL 4 MG IVP ×2 (05:46→20:53)
[2021-06-04 06:14] LABS: Alanine Aminotransferase < 5 U/L (0-33); Albumin Level 1.8 g/dL (3.5-5.2); Alkaline Phosphatase 217 IU/L (35-105); Aspartate Amino Transferase 8 U/L (0-32); Blood Urea Nitrogen 32 mg/dL (6-20); Calcium 6.8 mg/dL (8.5-10.5); Carbon Dioxide 15 mmol/L (22-29); Chloride 102 mmol/L (98-107); Globulin 2.4 g/dL (1.3-4.6); Glomerular Filtration Rate 18.2 mL/min (90-130); Glucose 83 mg/dL (65-115); Magnesium 1.7 mg/dL (1.7-2.3); Osmolality Calculated 278 mOsm/kg (285-295); Sodium 131 mmol/L (136-145); Total Bilirubin 0.6 mg/dL (0.15-1.2); Total Protein 4.2 g/dL (6.6-8.7)
[2021-06-04 06:22] LABS: Anion Gap 17.9 (5-19); Potassium 3.9 mmol/L (3.5-5.1)
[2021-06-04 06:34] LABS: NT Pro B Type Natriuretic Pept 3540 pg/mL (0-125); Procalcitonin 0.46 ng/mL (0-0.5)
[2021-06-04] MEDS: fluconazole 100 mg Tablet 200 MG PO (06:39)
[2021-06-04 08:09] LABS: Glucose Point of Care 89 mg/dL (70-110)
[2021-06-04] MEDS: apixaban 5 mg Tablet 2.5 MG PO ×2 (08:27→20:37)
[2021-06-04] MEDS: levETIRAcetam 500 mg Tablet 1000 MG PO ×2 (08:28→20:37)
[2021-06-04] MEDS: fludrocortisone 0.1 mg Tablet PO (08:28)
[2021-06-04] MEDS: ferrous gluconate 324 mg Tablet PO ×2 (08:28→20:37)
[2021-06-04] MEDS: midodrine 5 mg TABLET 10 MG PO ×2 (08:28→17:44)
[2021-06-04] MEDS: pantoprazole DR 40 mg Tablet PO (08:28)
[2021-06-04] MEDS: gabapentin 100 mg Capsule 200 MG PO ×3 (08:28→20:37)
[2021-06-04 09:43] LABS: Lactic Sepsis W/Reflex 3.4 mmol/L (0.5-2.2)
[2021-06-04] MEDS: nystatin powder 15 gm Btl 1 APPLIC TOPICAL ×2 (09:43→17:44)
[2021-06-04] MEDS: albuterol 8 gm MDI 2 PUFF INHALATION (11:00)
[2021-06-04 11:02] LABS: Reflex Lactate Order REFLEX LACTIC ORDERD
[2021-06-04 12:41] LABS: Glucose Point of Care 95 mg/dL (70-110)
--- NOTE | 2021-06-04 13:39 | PC.NURSE ---
Pt requested Zofran at lunch time while consuming food with more interest. She has ate nearly 75% of her tray, resting with eyes closed. No s/s of any distress. No belching, nausea or reflex noted up to this time. Zofran not administered.
[2021-06-04 17:38] LABS: Glucose Point of Care 98 mg/dL (70-110)
--- NOTE | 2021-06-04 18:46 | PC.NURSE ---
Shift Note: Pt rested in bed. She has requested Zofran several times today while exhibiting no sings of nausea or GI upset, she requested at lnch and dinner while eating without any distress. she is still on Levophed gtt, now at 4mcg/min. Had Levophed to 2mcg/min from 8mcg/mi then her B/P started to decline again. Midodrine admin in am am right before dinner. She has receveid PRN Benadryl and Dilaudid each twice this shift. She allowed herself to be bathed today. Groin more excoriated than yesterday. B/P cuff caused raw area in right AC. Her O2 sats decrease while sleeping. She was feeling better today. More alertness noted and appetite good. She is eating at least half of every meal. Urine output 425 ml. Frequent safety and comfort rounds continue. Orders and/or nursing care completed as indicated. Patient monitored for response to intervention and treatment(s). Education provided includes nystatin, bathing, skin care Patient and/or customer field representative reluctant but verbalized understanding. . Will continue to monitor.
--- NOTE | 2021-06-04 19:29 | P.PN_ITS ---
Subjective Subjective: Interval history: Patient was seen and examined this morning, complaining of swelling in both lower extremity as well as itching, Total Urine output: 525 cc. Continue to be on levophed. Medications: Reviewed: Yes Vitals/I&O/Wt Last Vital Signs Temp 98.8 F 06/04/21 12:30 Pulse 101 H 06/04/21 16:00 Resp 18 06/04/21 17:47 BP 80/42 06/04/21 16:00 Pulse Ox 91 06/04/21 17:47 06/04/21 06/04/21 06/04/21 06:59 14:59 22:59 Intake Total 192.837 / 6884.981 3218.242 / 1285.242 655.500 / 1940.742 Output Total 100 / 470 425 / 425 Balance 92.837 / 6007.750 0749.242 / 1285.242 230.500 / 1515.742 Weight last 48 hrs Weight 88.479 kg Weight 83.007 kg Physical Exam Const: COMMON NORMALS: patient oriented x3 HENMT: COMMON NORMALS: normocephalic and atraumatic HEAD & SCALP: normocephalic and atraumatic Resp: COMMON NORMALS: clear to auscultation bilaterally EFFORT & INSPECTION: Yes symmetric chest movement AUSCULTATION: clear to auscultation bilaterally Cardio: COMMON NORMALS: regular rate, regular rhythm, S1 normal heart sound present, S2 normal heart sound present, No gallops present (Cardio), No murmurs present (Cardio), No rub (Cardio) and Peripheral pulses 2+ throughout RATE: regular rate RHYTHM: regular rhythm HEART SOUNDS: S1 normal heart sound present and S2 normal heart sound present PERIPHERAL PULSES: Peripheral pulses 2+ throughout GI: COMMON NORMALS: Normal to inspection, nondistended, normoactive bowel sounds present, Soft to palpation, non-tender, No hepatosplenomegaly present and no masses AUSCULTATION: Yes normoactive bowel sounds PALPATION: Yes Soft to palpation and Yes No hepatosplenomegaly present RECTAL EXAM: deferred Extremity: NARRATIVE EXTREMITY EXAM: Lt outer quadrant thigh deep clean wound Neuro: COMMON NORMALS: patient oriented x3 Skin: NARRATIVE SKIN EXAM: Diffuse erythematous rash in both L/E Urinary Catheter Management^: Cosme: Cath Placed During This Visit: no Reason for Continuing Indwelling Catheter: Chronic Indwelling Urinary Catheter on Admission Data : 06/03/21 03:30 06/04/21 05:25 Micro: Microbiology 06/03/21 14:15 Urine Culture - Preliminary Urine,Clean Catch Gram Negative Rods 06/03/21 03:30 Blood Culture - Preliminary Blood NEGATIVE TO DATE 06/03/21 03:15 Blood Culture - Preliminary Blood NEGATIVE TO DATE A&P Assessment and plan (1) Sepsis: Septic shock due to infected LLE wound. Blood Culture: NTD Urine Culture: GNR Lactic acid : 4.4 Repeat Lactic acid:3.4 Procal : 0.46 Vancomycin Imipenam Levophed Maintain MAP>65 Status: Acute (2) Rash and nonspecific skin eruption: Diffuse Rash - nonspecific skin eruption ? Allergic reaction Benadryl Monitor for SJS Status: Acute (3) Adrenal insufficiency: Resume Forinef Midodrine 10 MG PO TID Status: Acute (4) Stage IV pressure ulcer: Status: Acute (5) Acute kidney injury: Acute Kidney injury / Hyponatremia Admission Serum Creatinine 3.9 Current SCR: 2.8 NS bolus in ER Cautious IV hydration Cosme placed Nephrology consulted Status: Acute (6) Alcohol intoxication: Withdrawal protocol Status: Acute (7) DVT prophylaxis: Eliquis 2.5 mg BID Status: Acute Attestations Medical Necessity Statement*: Patient needs to be in the hospital for management of sepsis. Coding Level of Care Code Acute Rod Finisher for [facility] 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 Diagnoses Sepsis A41.9 Rash and nonspecific skin eruption R21 Adrenal insufficiency E27.40 Stage IV pressure ulcer L89.94 Acute kidney injury N17.9 Alcohol intoxication F10.929 DVT prophylaxis Z29.9
[2021-06-04] MEDS: FUROsemide 10 mg/mL SDV 2mL 20 MG IVP (20:36)
[2021-06-05] VITALS (82 sets, daily range): BP systolic 71–138; BP diastolic 37–112; PULSE 70–171; RESP 13–33; TEMP 36.6–37.7; O2SAT 68–100
[2021-06-05] MEDS: vancomycin 1,000 MG in sodium chloride 0.9% 250 ML 250 MG IV (04:13)
[2021-06-05] MEDS: fluconazole 100 mg Tablet 200 MG PO (06:02)
[2021-06-05] MEDS: levothyroxine 100 mcg Tablet 300 MCG PO (06:03)
--- NOTE | 2021-06-05 06:38 | PC.NURSE ---
NURSE NOTE: SHIFT SUMMARY: PT ALERT AND ORIENTED X4, MOVES ALL EXTREMITIES AND FOLLOWS COMMANDS. LEVOPHED GTT INFUSING @ 6MCG-MAP MAINTAINING AT 65-71. SAN CATH PATENT TO DD. OUTPUT ADEQUATE. C/O LEG PAIN OF 8 THIS SHIFT/PAIN MEDICATION GIVEN ORDERED AND IS EFFECTIVE PER PATIENT. CURRENTLY RESTING WITH EYES CLOSED , NO DISTRESS NOTED AT THIS TIME. COSTUME MISTRESS UNABLE TO GET LABS THIS MORNING-DR. RODRIGUEZ NOTIFIED AND THIS NURSE REQUESTED A PICC OR MIDLINE FOR LAB DRAWS AND FOR INFUSION OF LEVOPHED GTT. NO RESPONSE NOTED YET. WILL PASS ON TO DAYSHIFT FOR FOLLOW THROUGH. ALL VS AND ASSESSMENTS CHARTED.
--- NOTE | 2021-06-05 06:50 | PC.NURSE ---
NURSE NOTE: FOLLOW/UP REQUEST FOR CENTRAL LINE/PICC/MIDLINE DR. RODRIGUEZ RESPONDED PER RICARDO : PT PROBABLY DOES NEED LINE BUT DAY SHIFT WILL HAVE TO ADDRESS IT.
[2021-06-05 08:15] LABS: Glucose Point of Care 90 mg/dL (70-110)
[2021-06-05] MEDS: gabapentin 100 mg Capsule 200 MG PO ×3 (08:16→20:24)
[2021-06-05] MEDS: fludrocortisone 0.1 mg Tablet PO (08:16)
[2021-06-05] MEDS: apixaban 5 mg Tablet 2.5 MG PO ×2 (08:16→20:23)
[2021-06-05] MEDS: ferrous gluconate 324 mg Tablet PO ×2 (08:16→20:22)
[2021-06-05] MEDS: levETIRAcetam 500 mg Tablet 1000 MG PO ×2 (08:16→20:23)
[2021-06-05] MEDS: pantoprazole DR 40 mg Tablet PO (08:16)
[2021-06-05] MEDS: nystatin powder 15 gm Btl 1 APPLIC TOPICAL ×2 (08:17→17:30)
[2021-06-05] MEDS: morphine 4 mg/mL SDV 1 mL 2 MG IVP (08:58)
[2021-06-05] MEDS: albuterol 8 gm MDI 2 PUFF INHALATION (08:58)
--- NOTE | 2021-06-05 09:21 | CT_ITS ---
WS: [id number] CT abdomen pelvis wo con [id number] REASON FOR EXAM: sepsis, multple pressure ulcers IV CONTRAST ADMINISTERED: None. TOTAL EXAM DLP: 1155.[address] scans at [facility] use at least one of these dose optimization techniques: automat ed exposure control; mA and/or kV adjustment per patient size (includes targeted exams where dose is matched to clinical indication); or iterative reconstruction. FINDINGS: ABDOMEN: Large hiatal hernia Severe fatty infiltration of the liver. Atrophy and fatty infiltration of the pancreas. Normal spleen. Gallbladder surgically removed. Kidneys demonstrate no mass, calculus, or hydronephrosis. No mass, adenopathy, free fluid, or focal fluid collection. PELVIS: No mass, adenopathy, free fluid, or focal fluid collection. Cosme catheter within the bladder. L5-S1 disc space changes as described on the lumbar spine CT. Left femur changes as described on the left femur CT. CT/CT abdomen pelvis wo con [id number] IMPRESSION: Severe fatty infiltration of the liver. Fatty atrophic pancreas. No intra-abdom inal mass or fluid collection. Lumbar spine and left femur changes as above.
--- NOTE | 2021-06-05 09:21 | CT_ITS ---
WS: [id number] CT femur LT wo con* [id number] REASON FOR EXAM: deep abscess IV CONTRAST ADMINISTERED: None. TOTAL EXAM DLP: 1057.[address] scans at [facility] use at least one of these dose optimization techniques: automat ed exposure control; mA and/or kV adjustment per patient size (includes targeted exams where dose is matched to clinical indication); or iterative reconstruction. FINDINGS: Deep decubitus ulcer posterior to the left femur approximately 8 cm distal to the lesser trochanter. Associated with the decubitus ulcers is and ill-defined soft tissue density that measures approximate ly 10 x 5 cm. The posterior aspect of the femur that is contiguous with this soft tissue density show s definite cortical destruction and irregular periosteal reaction. CT/CT femur LT wo con* [id number] IMPRESSION: Posterior left upper thigh decubitus ulcer with associated inflammatory mass an d changes in the adjacent femur compatible with osteomyelitis.
--- NOTE | 2021-06-05 10:04 | PC.CHAP ---
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 seed cleaning manager visit [] Patient/Family/Request visit [] Outpatient visit [] Follow-up visit [] Physician referral [] Code/Alert [x] Routine visit [] Staff referral [] Actively dying [] Patient sleeping [] Family support [] [] Out of room [] Palliative care [] [] Receiving care in room [] Pre-surgical visit [] Trauma [] Long length of stay [x] ICU visit [] Other: Relational/Emotional Strength [] Patient feels connected with others/family/visitors/staff [] Distress [] Loneliness/isolation [] Abandonment Spirituality of Patient [] Person of Angy [] Attends Scientology of their Angy [] Believes in Prayer [] Reads Bible or Protestant materials [] There are Spiritual issues to be addressed Interventional Physiatrist Interventions [x] Prayer [x] Active listening [x] Non-anxious presence [x] Spiritual/emotional support [] Crisis/trauma care [] Spiritual counseling [] Bereavement support [] Provided bereavement packet [] Provided Bible/devotional materials [] Provided toy/stuffed animal, coloring book to patient or family member [] Provided Communion [] Anointing/[place] [] Salvation [x] Completed spiritual assessment [] Other: Impact on Illness or Injury [] Angry [] Fearful [] Anxious [] Often cries [] Exhaustion [] Unable to work [] Unable to attend lutheran [] Unable to walk/stand [] Unable to read [] Unable to drive [] Unable to eat/drink [] Unable to sleep [] Unable to be with family [] Patient intubated [] Other: Summary patient has visited hospital before with infection... prayed for healing.. enjoyed her breakfast Time spent with patient 10 min
[2021-06-05] MEDS: diphenhydrAMINE 25 mg Capsule PO ×3 (11:19→23:36)
--- NOTE | 2021-06-05 11:41 | CT_ITS ---
WS: [id number] CT lumbar spine wo con* [id number] REASON FOR EXAM: osteo IV CONTRAST ADMINISTERED: None. TOTAL EXAM DLP: 2280.[address] scans at [facility] use at least one of these dose optimization techniques: automat ed exposure control; mA and/or kV adjustment per patient size (includes targeted exams where dose is matched to clinical indication); or iterative reconstruction. FINDINGS: From T12 to L4 no significant vertebral body abnormality is identified. There is moderate narrowing of the intervertebral disc spaces at at L1-L2 (degenerative interspace ga s) and L3-L4. Mild disc space narrowing at L2-L3. At L5-S1. The endplates of L5 and S1 demonstrates irregularity and sclerosis. This appearance is unch anged compared to the lumbar spine demonstrated on the CT scan of the abdomen and pelvis 10/02/2020. No soft tissue abnormality. CT/CT lumbar spine wo con* [id number] IMPRESSION: The lumbar spine is stable in appearance compared to 10/02/2020. There are findi ngs of degenerative spondylosis. The findings at L5-S1 could represent chronic disc space infection however ther e are no adjacent soft tissue changes and the appearance of this level has not changed since 10/02/2020.
--- NOTE | 2021-06-05 11:41 | CT_ITS ---
WS: [id number] CT cervical spin wo con* [id number] REASON FOR EXAM: osteo IV CONTRAST ADMINISTERED: None. TOTAL EXAM DLP: 554.[address] scans at [facility] use at least one of these dose optimization techniques: automat ed exposure control; mA and/or kV adjustment per patient size (includes targeted exams where dose is matched to clinical indication); or iterative reconstruction. FINDINGS: Mild straightening of the normal lordosis of the cervical spine. No significant compression deformity or other focal cervical vertebral body abnormality demonstrated. Degenerative change in the odontoid C1 articulation. From C3 to T1 there is narrowing of the intervertebral disc spaces with anterior osteophytic spurring . No significant listhesis. No soft tissue abnormality is identified. Thyroid gland, submaxillary salivary glands, and parotid gl ands are normal. No cervical adenopathy. CT/CT cervical spin wo con* [id number] IMPRESSION: Changes of degenerative spondylosis with no definite acute abnormality of the c ervical spine either inflammatory or traumatic.
--- NOTE | 2021-06-05 11:41 | CT_ITS ---
WS: [id number] CT thoracic spin wo con* [id number] REASON FOR EXAM: osteo IV CONTRAST ADMINISTERED: None. TOTAL EXAM DLP: 1552.[address] scans at [facility] use at least one of these dose optimization techniques: automat ed exposure control; mA and/or kV adjustment per patient size (includes targeted exams where dose is matched to clinical indication); or iterative reconstruction. FINDINGS: Normal alignment of the thoracic spine. No significant compression deformity or other focal vertebral body abnormality. Narrowing of the thoracic disc spaces. No paraspinous soft tissue mass. Atelectasis in the medial segment of the lingula of the left lung adjacent to the large hiatal hernia . CT/CT thoracic spin wo con* [id number] IMPRESSION: Degenerative disc disease without significant focal abnormality.
[2021-06-05 12:01] LABS: Glucose Point of Care 103 mg/dL (70-110)
--- NOTE | 2021-06-05 14:18 | PC.RESP ---
sent pulmonary rehab information
--- NOTE | 2021-06-05 15:52 | XR_ITS ---
WS: [id number] XR chest 1V portable [id number] REASON FOR EXAM: PICC placement FINDINGS: Compared to the previous examination of 06/03/2021 a right arm PICC line is been placed. The tip is pr operly located in the superior vena cava. Compared to the previous examination of 06/03/2021 there is moderate amount of central vascular conges tion. The chest is otherwise unchanged. XR/XR chest 1V portable [id number] IMPRESSION: Right arm PICC line placement and Central vascular congestion as above.
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
--- NOTE | 2021-06-05 16:35 | PC.NURSE ---
PICC RIGHT arm ready for use.
--- NOTE | 2021-06-05 17:24 | PM.PN ---
Subjective Subjective: Interval history: Patient was seen this morning, she is currently having breakfast, has lower back pain, no fevers overnight, I did do a thorough skin exam, she was in a lot of pain when turning her, she remains on 7 of Levophed, Vitals/I&O/Wt Last Vital Signs Temp 98.4 F 06/05/21 16:00 Pulse 112 H 06/05/21 16:45 Resp 18 06/05/21 17:12 BP 92/56 06/05/21 16:45 Pulse Ox 99 06/05/21 17:12 06/05/21 06/05/21 06/05/21 06:59 14:59 22:59 Intake Total 939.936 / 3220.678 590.17 / 590.17 127.127 / 717.297 Output Total 800 / 1425 800 / 800 650 / 1450 Balance 139.936 / 1795.678 -209.83 / -209.83 -522.873 / -732.703 Weight last 48 hrs Weight 87.628 kg Weight 88.479 kg Physical Exam Const: COMMON NORMALS: no acute distress ORIENTATION/CONSCIOUSNESS: Yes awake, Yes oriented to person, Yes oriented to place and Yes oriented to time Resp: COMMON NORMALS: normal respiratory effort, No retractions, No use of accessory muscles and clear to auscultation bilaterally AUSCULTATION: clear to auscultation bilaterally Cardio: COMMON NORMALS: regular rate, regular rhythm, S1 normal heart sound present and S2 normal heart sound present RATE: regular rate RHYTHM: regular rhythm HEART SOUNDS: S1 normal heart sound present and S2 normal heart sound present GI: COMMON NORMALS: Normal to inspection, nondistended, normoactive bowel sounds present, Soft to palpation and non-tender PALPATION: Yes Soft to palpation Extremity: COMMON NORMALS: no pedal edema Neuro: SENSORIUM/ORIENTATION: Yes oriented to person, Yes oriented to place and Yes oriented to time Skin: NARRATIVE SKIN EXAM: Diffuse macular rash, bilateral lower extremities, lower abdomen, chest, back, spares the face, no tongue involvement, no mouth involvement, poorly defined borders, irregular Bilateral heels, Right heel, 1 x 1 cm heel DTI, no visible bone Left heel, 1 x 1 cm heel, DTI, lateral to the heel, Right forearm, 1 x 1 cm linear, DTI Left, thigh, posterior, 1 x 2 cm, by 4 cm DTI, with tunneling to the bone, Urinary Catheter Management^: Cosme: Cath Placed During This Visit: no Reason for Continuing Indwelling Catheter: Chronic Indwelling Urinary Catheter on Admission Data : 06/03/21 03:30 06/04/21 05:25 Micro: Microbiology 06/03/21 14:15 Urine Culture - Preliminary Urine,Clean Catch Escherichia coli Gram Negative Rods A&P Assessment and plan (1) Sepsis: Septic shock secondary to multiple DTI, lower extremity cellulitis Remains on Levophed Blood Culture: NTD Urine Culture: GNR Lactic acid : 4.4 Repeat Lactic acid:3.4 Procal : 0.46 Morning labs pending Vancomycin Imipenem Levophed currently at seven Maintain MAP>65 As she remains in septic shock, despite broad-spectrum antibiotic therapy, will do scan of left thigh DTI, given tunneling down to bone, concerning for possible osteomyelitis, scan of CT scanning abdomen, scan no vertebral column, repeat inflammatory markers If she remains in septic shock, will consider starting IV caspofungin, given history of Yazmin Martinez to UTI in the past Place PICC line Status: Acute (2) Rash and nonspecific skin eruption: Diffuse Rash - nonspecific skin eruption ? Allergic reaction Benadryl Has features similar to toxic epidermal necrolysis versus Jim Bladimir syndrome We will discuss with general surgery for possible skin biopsy Status: Acute (3) Adrenal insufficiency: Resume Forinef Midodrine 10 MG PO TID Status: Acute (4) Stage IV pressure ulcer: -Bilateral heels, left thigh -On hospital admission March 28, 2021, had debridement -Continue offloading, wound care, monitor closely Status: Acute (5) Acute kidney injury: Acute Kidney injury / Hyponatremia Admission Serum Creatinine 3.9 Serum creatinine yesterday 2.8, currently blood work pending NS bolus in ER Cautious IV hydration Cosme placed Has good urine output Status: Acute (6) Alcohol intoxication: Withdrawal protocol Status: Acute (7) DVT prophylaxis: Eliquis 2.5 mg BID Status: Acute Additional A&P Information Heart failure preserved ejection fraction Type 2 diabetes mellitus History of GI bleed History of COPD Hypothyroidism Currently on Eliquis chronically for DVT prophylaxis, given prolonged immobility Recent history of Yazmin Martinez GI UTI Attestations Medical Necessity Statement*: Patient requires hospitalization, for sepsis, septic shock secondary to DTI's, cellulitis, [place], Coding Level of Care Code 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
[2021-06-05 17:47] LABS: Glucose Point of Care 98 mg/dL (70-110)
[2021-06-05 19:15] LABS: Basophils % 0.3 %; Eosinophils # 1.1 10^3/uL (0.0-0.8); Eosinophils % 10.2 %; Lymphocytes % 10.1 %; Mean Corpuscular HGB Conc 32.3 g/dL (30.0-36.0); Mean Corpuscular Hemoglobin 27.9 pg (28.0-34.0); Mean Corpuscular Volume 86.6 fl (81-99); Mean Platelet Volume 9.8 fL (7.4-10.4); Monocytes # 0.4 10^3/uL (0.2-0.9); Monocytes % 3.8 %; Neutrophils # 7.76 10^3/uL (1.8-7.7); Nucleated Red Blood Cells % 0 %; Platelet Count 166 10^3/cmm (130-400); Red Blood Count 3.58 10^6/uL (4.1-5.3); Red Cell Distribution Width 15.1 % (12.1-15.1); White Blood Count 10.3 10^3/uL (4.0-10.0)
[2021-06-05 19:44] LABS: Lactate (Lactic Acid level) 2.9 mmol/L (0.5-2.2)
[2021-06-05 19:45] LABS: Alanine Aminotransferase < 5 U/L (0-33); Albumin Level 1.7 g/dL (3.5-5.2); Alkaline Phosphatase 203 IU/L (35-105); Anion Gap 14.2 (5-19); Aspartate Amino Transferase 8 U/L (0-32); Blood Urea Nitrogen 21 mg/dL (6-20); C Reactive Protein 84.7 mg/L (0.0-4.9); Calcium 6.7 mg/dL (8.5-10.5); Carbon Dioxide 18 mmol/L (22-29); Chloride 104 mmol/L (98-107); Globulin 2.4 g/dL (1.3-4.6); Glomerular Filtration Rate 40.5 mL/min (90-130); Glucose 116 mg/dL (65-115); Osmolality Calculated 280 mOsm/kg (285-295); Potassium 3.2 mmol/L (3.5-5.1); Sodium 133 mmol/L (136-145); Total Bilirubin 0.5 mg/dL (0.15-1.2); Total Protein 4.1 g/dL (6.6-8.7)
[2021-06-05 19:49] LABS: Procalcitonin 0.32 ng/mL (0-0.5)
[2021-06-05 20:22] LABS: Glucose Point of Care 125 mg/dL (70-110)
[2021-06-05] MEDS: midodrine 5 mg TABLET 10 MG PO (20:22)
[2021-06-05] MEDS: HYDROmorphone 1 mg/mL INJ 1 mL 0.5 MG IVP (20:23)
[2021-06-05] MEDS: potassium chloride oral liq 20 mEq/15 mL UDC 40 MEQ PO (21:27)
[2021-06-06] VITALS (104 sets, daily range): BP systolic 71–122; BP diastolic 40–83; PULSE 73–117; RESP 13–28; TEMP 36.4–37.6; O2SAT 68–100
[2021-06-06] MEDS: HYDROmorphone 1 mg/mL INJ 1 mL 0.5 MG IVP (03:14)
[2021-06-06 05:02] LABS: Basophils % 0.5 %; Eosinophils # 1.4 10^3/uL (0.0-0.8); Eosinophils % 15.7 %; Hematocrit 29.2 % (37.0-47.0); Hemoglobin 9.4 g/dL (11.5-15.3); Lymphocytes # 1.3 10^3/uL (0.8-4.8); Lymphocytes % 14.8 %; Mean Corpuscular HGB Conc 32.2 g/dL (30.0-36.0); Mean Corpuscular Hemoglobin 27.6 pg (28.0-34.0); Mean Corpuscular Volume 85.6 fl (81-99); Mean Platelet Volume 10.1 fL (7.4-10.4); Monocytes # 0.5 10^3/uL (0.2-0.9); Monocytes % 5.4 %; Neutrophils # 5.47 10^3/uL (1.8-7.7); Nucleated Red Blood Cells % 0 %; Platelet Count 172 10^3/cmm (130-400); Red Blood Count 3.41 10^6/uL (4.1-5.3); Red Cell Distribution Width 15.2 % (12.1-15.1); White Blood Count 8.7 10^3/uL (4.0-10.0)
[2021-06-06] MEDS: diphenhydrAMINE 25 mg Capsule PO (05:14)
[2021-06-06] MEDS: levothyroxine 100 mcg Tablet 300 MCG PO (05:14)
[2021-06-06 05:23] LABS: INR 1.96 (0.8-1.2)
[2021-06-06 05:29] LABS: Alanine Aminotransferase < 5 U/L (0-33); Albumin Level 1.8 g/dL (3.5-5.2); Alkaline Phosphatase 197 IU/L (35-105); Aspartate Amino Transferase 7 U/L (0-32); Blood Urea Nitrogen 18 mg/dL (6-20); C Reactive Protein 78.3 mg/L (0.0-4.9); Calcium 6.7 mg/dL (8.5-10.5); Carbon Dioxide 19 mmol/L (22-29); Chloride 101 mmol/L (98-107); Globulin 2.1 g/dL (1.3-4.6); Glomerular Filtration Rate 44.1 mL/min (90-130); Glucose 116 mg/dL (65-115); Magnesium 1.1 mg/dL (1.7-2.3); Osmolality Calculated 273 mOsm/kg (285-295); Phosphorus 2.8 mg/dL (2.5-4.5); Sodium 130 mmol/L (136-145); Total Bilirubin 0.7 mg/dL (0.15-1.2); Total Protein 3.9 g/dL (6.6-8.7)
[2021-06-06 05:30] LABS: Anion Gap 13.6 (5-19); Lactate (Lactic Acid level) 2.8 mmol/L (0.5-2.2); Potassium 3.6 mmol/L (3.5-5.1)
[2021-06-06 05:39] LABS: NT Pro B Type Natriuretic Pept 9252 pg/mL (0-125); Procalcitonin 0.34 ng/mL (0-0.5)
[2021-06-06 05:51] LABS: Creatine Phosphokinase 16 U/L (26-192); Ferritin 281 ng/mL (15-150)
[2021-06-06] MEDS: vancomycin 1,250 MG/250 ML PIGGYBACK 250 MG IV (05:56)
[2021-06-06] MEDS: fluconazole 100 mg Tablet 200 MG PO (06:00)
--- NOTE | 2021-06-06 07:00 | XR_ITS ---
WS: [id number] XR chest 1V portable [id number] REASON FOR EXAM: sob FINDINGS: Right arm PICC line remains in proper position. The central pulmonary vascularity remains congested compared to 06/03/2021 but stable compared to the previous day. Large hiatal hernia again noted. No new abnormalities. XR/XR chest 1V portable [id number] IMPRESSION: Stable abnormal chest
[2021-06-06 07:33] LABS: Glucose Point of Care 79 mg/dL (70-110)
[2021-06-06] MEDS: gabapentin 100 mg Capsule 200 MG PO ×3 (08:18→21:36)
[2021-06-06] MEDS: levETIRAcetam 500 mg Tablet 1000 MG PO ×2 (08:19→21:36)
[2021-06-06] MEDS: pantoprazole DR 40 mg Tablet PO (08:20)
[2021-06-06] MEDS: apixaban 5 mg Tablet 2.5 MG PO ×2 (08:20→21:35)
[2021-06-06] MEDS: ferrous gluconate 324 mg Tablet PO ×2 (08:20→21:36)
[2021-06-06] MEDS: fludrocortisone 0.1 mg Tablet PO (08:20)
[2021-06-06] MEDS: midodrine 5 mg TABLET 10 MG PO ×4 (08:20→22:59)
[2021-06-06] MEDS: magnesium sulfate premix 4 GM/100 ML PREMIX IV (08:31)
[2021-06-06] MEDS: nystatin powder 15 gm Btl 1 APPLIC TOPICAL ×2 (08:32→18:08)
[2021-06-06] MEDS: hyDROXYzine 25 mg Capsule PO (08:32)
--- NOTE | 2021-06-06 09:21 | PC.NURSE ---
Turned patient to be right side lying. Patient stated that it really hurt her hip and did not want to lay that way. Turned the patient to be supine.
--- NOTE | 2021-06-06 09:34 | PC.NURSE ---
Used central line dressing change kit and sorba view shield in PICC line dressing change
--- NOTE | 2021-06-06 09:36 | PC.SOCIAL ---
IMM Update Pg. 2 of IMM updated and reviewed with patient who verbalized understanding. Copy provided.
[2021-06-06] MEDS: albuterol 8 gm MDI 2 PUFF INHALATION (10:00)
[2021-06-06 11:29] LABS: Glucose Point of Care 146 mg/dL (70-110)
[2021-06-06] MEDS: ondansetron 2 mg/ML SDV 2 mL 4 MG IVP (13:11)
--- NOTE | 2021-06-06 14:09 | PC.NURSE ---
Patient up to chair for lunch. Patient states that pain gets worse when getting up from chair to bed. Patient stayed in chair for around an hour. Patient got nauseated and vomited right before getting back to bed. Patient received Zofran. Patient back in bed and went to sleep.
--- NOTE | 2021-06-06 15:46 | PC.NURSE ---
Called and updated Life Partner, Oziel Mckeon on the patient. Updated the change of medication from Benadryl to Vistaril. Updated that patient got up to chair for an hour. Updated that the patient is still on Levophed. Updated on the vital signs of the patient and that the heart rate did go up when patient was being moved from bed to chair. Updated on the rounding with doctor. Updated on the CT scan and osteomyelitis.
--- NOTE | 2021-06-06 16:43 | P.PN_ITS ---
Subjective Subjective: Interval history: Patient was seen this morning, no acute events overnight, she continues to be on minimal Levophed, 4, has good urine output, afebrile overnight, she continues to have a diffuse maculopapular rash, not desquamating, no tongue pain, no oral ulcers, but it is quite pruritic, spares the face, spares the palms of the hands, spares mucous membranes, she continues to have lower extremity pain, but overall she is doing better she tells me, no nausea, no vomiting, no chest pain Medications: Reviewed: Yes Vitals/I&O/Wt Last Vital Signs Temp 98.5 F 06/06/21 12:15 Pulse 90 06/06/21 14:00 Resp 16 06/06/21 12:15 BP 112/61 06/06/21 12:15 Pulse Ox 93 06/06/21 12:15 06/06/21 06/06/21 06/06/21 06:59 14:59 22:59 Intake Total 471.837 / 9712.896 4172.78 / 2364.78 29.972 / 2394.752 Output Total 450 / 1900 Balance 21.837 / -592.896 2729.78 / 2364.78 29.972 / 2394.752 Weight last 48 hrs Weight 87.543 kg Weight 87.628 kg Physical Exam Const: COMMON NORMALS: no acute distress ORIENTATION/CONSCIOUSNESS: Yes awake, Yes oriented to person, Yes oriented to place and Yes oriented to time Resp: COMMON NORMALS: normal respiratory effort, No retractions, No use of accessory muscles and clear to auscultation bilaterally AUSCULTATION: clear to auscultation bilaterally Cardio: COMMON NORMALS: regular rate, regular rhythm, S1 normal heart sound present and S2 normal heart sound present RATE: regular rate RHYTHM: regular rhythm HEART SOUNDS: S1 normal heart sound present and S2 normal heart sound present GI: COMMON NORMALS: Normal to inspection, nondistended, normoactive bowel sounds present, Soft to palpation and non-tender PALPATION: Yes Soft to palpation Extremity: COMMON NORMALS: no pedal edema Neuro: SENSORIUM/ORIENTATION: Yes oriented to person, Yes oriented to place and Yes oriented to time Skin: NARRATIVE SKIN EXAM: Diffuse macular rash, bilateral lower extremities, lower abdomen, chest, back, spares the face, no tongue involvement, no mouth i nvolvement, poorly defined borders, irregular Bilateral shins, extending up to the knees, erythema, swelling, chronic skin changes Bilateral heels, Right heel, 1 x 1 cm heel DTI, no visible bone Left heel, 1 x 1 cm heel, DTI, lateral to the heel, Right forearm, 1 x 1 cm linear, DTI Left, thigh, posterior, 1 x 2 cm, by 4 cm DTI, with tunneling to the bone, Urinary Catheter Management^: Cosme: Cath Placed During This Visit: no Reason for Continuing Indwelling Catheter: Assist healing open wound Data : 06/06/21 04:40 06/06/21 04:40 Micro: Microbiology 06/03/21 14:15 Urine Culture - Final Urine,Clean Catch Escherichia coli Enterobacter cloacae A&P Assessment and plan (1) Sepsis: [facility] CT scan she has showed: -Posterior left upper thigh decubitus ulcer with associated inflammatory mass and changes in the adjacent femur compatible with osteomyelitis -The lumbar spine is stable in appearance compared to 10/02/2020. There are findi ngs of degenerative spondylosis. The findings at L5-S1 could represent chronic disc space infection however there are no adjacent soft tissue changes and the appearance of this level has not changed since 10/02/2020. continues to have lower back pain, on low-dose Levophed, afebrile, CRP 78.3, procal 0.34 Remains on Levophed Blood Culture: NTD Urine Culture: E. coli, Enterobacter cloacae sensitive to imipenem Lactic acid : 4.4 -Etiology, multifactorial, from bilateral lower extremity cellulitis, from thigh decubitus ulcer with osteomyelitis, bilateral heel sacral ulcers, discitis -Certainly it is a significant possibility possible patient has discitis given her continued lower back pain complaints, and especially as she was discharged home and remained bedbound -We will consult Dr. Bello, order MRI -Nonetheless treatment for the osteomyelitis and discitis would be of the same broad-spectrum antibiotic therapy for at least 6 weeks Vancomycin Imipenem Continue fluconazole for possible fungal infection Levophed currently at seven Maintain MAP>65 Has a history of adrenal insufficiency, continue hydrocortisone, fludrocortisone, check a.m. cortisol, if remains on Levophed we will consider stress dosing steroids Levothyroxine 300 mcg, recheck TSH Magnesium 1.1, will replace Creatinine 1.3, monitor urine output, monitor creatinine If she remains in septic shock, will consider starting IV caspofungin, given history of Yazmin UTI in the past Place PICC line Status: Acute (2) Rash and nonspecific skin eruption: Diffuse Rash - nonspecific skin eruption Possible allergic reaction, continues to have diffuse maculopapular rash, pruritic Has features of dress syndrome, elevated eosinophils Possibilities also include toxic epidermal necrolysis versus Jim Bladimir syndrome versus dress syndrome Repeat cultures, obtain HIV, RPR, acute hep General surgery will perform a skin biopsy Status: Acute (3) Adrenal insufficiency: Resume Forinef, hydrocortisone Midodrine 10 MG PO TID Status: Acute (4) Stage IV pressure ulcer: -Bilateral heels, left thigh -On hospital admission March 28, 2021, had debridement -Continue offloading, wound care, monitor closely Status: Acute (5) Acute kidney injury: Acute Kidney injury / Hyponatremia Admission Serum Creatinine 1.3 Cautious IV hydration Cosme placed Has good urine output Status: Acute (6) Alcohol intoxication: Withdrawal protocol Status: Acute (7) DVT prophylaxis: Eliquis 2.5 mg BID Status: Acute (8) Osteomyelitis of femur: Status: Acute (9) Discitis: Status: Acute Additional A&P Information Heart failure preserved ejection fraction Type 2 diabetes mellitus History of GI bleed, hemoglobin down to 9.4 continue to monitor History of COPD Hypothyroidism Currently on Eliquis chronically for DVT prophylaxis, given prolonged immobility Recent history of Yazmin Martinez GI UTI Attestations Medical Necessity Statement*: Patient requires hospitalization for multifactorial sepsis, osteomyelitis, discitis, Coding Level of Care Code 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
[2021-06-06] MEDS: FUROsemide 10 mg/mL SDV 2mL 20 MG IVP (17:12)
[2021-06-06 17:30] LABS: Glucose Point of Care 68 mg/dL (70-110)
[2021-06-06 17:46] LABS: Glucose Point of Care 84 mg/dL (70-110)
[2021-06-06] MEDS: hydrocortisone 10 mg Tablet 5 MG PO (18:07)
[2021-06-06 18:32] LABS: Thyroid Stimulating Hormone 14.04 uIU/mL (0.27-4.20)
[2021-06-06 18:33] LABS: Glucose Point of Care 131 mg/dL (70-110)
[2021-06-06 18:34] LABS: Rapid Plasma Reagin Syphilis Nonreactive (Nonreactive)
[2021-06-06 18:36] LABS: Hepatitis A Antibody IgM Non-Reactive (Nonreactive); Hepatitis B Core IgM Non-Reactive (Nonreactive); Hepatitis B Surface Antigen Non-Reactive (Nonreactive); Hepatitis C Virus Antibody Reactive (Nonreactive)
--- NOTE | 2021-06-06 18:59 | PC.NURSE ---
Shift Note Frequent safety and comfort rounds continue. Orders and/or nursing care completed as indicated. Patient monitored for response to intervention and treatment(s). Education provided includes activity, medication, new results and care plan. Patient and/or industrial relations representative verbalized understanding. Patient got up to chair today. Patient's came around 1800. Patient stated that she woke up to burning and then got the rash and blisters. Afterwards the patient stated that she went to the hospital. Patient stated that started to decrease the amount of sugar consumption, but nothing else was changed. Patient is resting in bed, watching TV, and visitor at bedside.
[2021-06-06 20:01] LABS: HIV 1 & 2 Antibody Non-Reactive (Non-Reactiv); HIV 1 & 2 Antigen Non-Reactive (Non-Reactiv)
[2021-06-06 21:24] LABS: Glucose Point of Care 107 mg/dL (70-110)
[2021-06-07] VITALS (36 sets, daily range): BP systolic 67–118; BP diastolic 38–102; PULSE 80–110; RESP 15–27; TEMP 36.5–36.9; O2SAT 70–100; BMI 34.2
[2021-06-07 04:22] LABS: Basophils % 0.4 %; Eosinophils # 1.1 10^3/uL (0.0-0.8); Eosinophils % 15.8 %; Hematocrit 28.5 % (37.0-47.0); Hemoglobin 9.1 g/dL (11.5-15.3); Lymphocytes % 14.5 %; Mean Corpuscular HGB Conc 31.9 g/dL (30.0-36.0); Mean Corpuscular Hemoglobin 27.5 pg (28.0-34.0); Mean Corpuscular Volume 86.1 fl (81-99); Mean Platelet Volume 9.9 fL (7.4-10.4); Monocytes # 0.4 10^3/uL (0.2-0.9); Monocytes % 6.5 %; Neutrophils # 4.25 10^3/uL (1.8-7.7); Neutrophils % 62.4 %; Nucleated Red Blood Cells % 0 %; Platelet Count 177 10^3/cmm (130-400); Red Blood Count 3.31 10^6/uL (4.1-5.3); Red Cell Distribution Width 15.5 % (12.1-15.1); White Blood Count 6.8 10^3/uL (4.0-10.0)
[2021-06-07] MEDS: midodrine 5 mg TABLET 10 MG PO ×3 (04:27→18:08)
[2021-06-07 04:39] LABS: Lactate (Lactic Acid level) 1.4 mmol/L (0.5-2.2)
[2021-06-07 04:42] LABS: INR 1.62 (0.8-1.2)
[2021-06-07 04:58] LABS: NT Pro B Type Natriuretic Pept 6068 pg/mL (0-125); Procalcitonin 0.24 ng/mL (0-0.5)
[2021-06-07 05:09] LABS: Alanine Aminotransferase < 5 U/L (0-33); Albumin Level 1.7 g/dL (3.5-5.2); Alkaline Phosphatase 171 IU/L (35-105); Anion Gap 12.1 (5-19); Aspartate Amino Transferase 7 U/L (0-32); Blood Urea Nitrogen 12 mg/dL (6-20); C Reactive Protein 48.9 mg/L (0.0-4.9); Calcium 6.8 mg/dL (8.5-10.5); Carbon Dioxide 22 mmol/L (22-29); Chloride 106 mmol/L (98-107); Creatine Phosphokinase 15 U/L (26-192); Ferritin 275 ng/mL (15-150); Globulin 2.4 g/dL (1.3-4.6); Glomerular Filtration Rate 59.7 mL/min (90-130); Glucose 84 mg/dL (65-115); Magnesium 1.4 mg/dL (1.7-2.3); Osmolality Calculated 283 mOsm/kg (285-295); Potassium 3.1 mmol/L (3.5-5.1); Sodium 137 mmol/L (136-145); Total Bilirubin 0.4 mg/dL (0.15-1.2); Total Protein 4.1 g/dL (6.6-8.7)
[2021-06-07 05:46] LABS: Cortisol Random 8.81 ug/dL (2.47-19.5)
[2021-06-07] MEDS: fluconazole 100 mg Tablet 200 MG PO (06:01)
[2021-06-07] MEDS: levothyroxine 100 mcg Tablet 300 MCG PO (06:02)
[2021-06-07] MEDS: vancomycin 1,250 MG/250 ML PIGGYBACK 250 MG IV (06:58)
--- NOTE | 2021-06-07 07:00 | PC.NURSE ---
Shift Note Frequent safety and comfort rounds continue. Orders and/or nursing care completed as indicated. Patient monitored for response to intervention and treatment(s). Education provided to the patient. Levophed drip was turned off at 2100. There were no other significant changes noted at this time.
[2021-06-07 07:11] LABS: Glucose Point of Care 85 mg/dL (70-110)
[2021-06-07] MEDS: albuterol 8 gm MDI 2 PUFF INHALATION (07:40)
[2021-06-07] MEDS: gabapentin 100 mg Capsule 200 MG PO ×3 (07:57→20:26)
[2021-06-07] MEDS: ferrous gluconate 324 mg Tablet PO ×2 (07:58→20:26)
[2021-06-07] MEDS: apixaban 5 mg Tablet 2.5 MG PO ×2 (07:58→20:26)
[2021-06-07] MEDS: levETIRAcetam 500 mg Tablet 1000 MG PO ×2 (07:58→20:26)
[2021-06-07] MEDS: pantoprazole DR 40 mg Tablet PO (07:59)
[2021-06-07] MEDS: fludrocortisone 0.1 mg Tablet PO (07:59)
[2021-06-07] MEDS: hydrocortisone 10 mg Tablet 5 MG PO ×2 (07:59→17:37)
[2021-06-07] MEDS: nystatin powder 15 gm Btl 1 APPLIC TOPICAL (08:05)
[2021-06-07] MEDS: hyDROXYzine 25 mg Capsule PO ×2 (08:12→16:33)
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
--- NOTE | 2021-06-07 09:29 | PC.CHAP ---
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 airways control specialist visit [] Patient/Family/Request visit [] Outpatient visit [] Follow-up visit [] Physician referral [] Code/Alert [x] Routine visit [] Staff referral [] Actively dying [x] Patient sleeping [] Family support [] [] Out of room [] Palliative care [] [] Receiving care in room [] Pre-surgical visit [] Trauma [] Long length of stay [x] ICU visit [] Other: Relational/Emotional Strength [] Patient feels connected with others/family/visitors/staff [] Distress [] Loneliness/isolation [] Abandonment Spirituality of Patient [] Person of Angy [] Attends Anabaptist of their Angy [] Believes in Prayer [] Reads Bible or Jainism materials [] There are Spiritual issues to be addressed Can Carrier Interventions [x] Prayer [] Active listening [] Non-anxious presence [] Spiritual/emotional support [] Crisis/trauma care [] Spiritual counseling [] Bereavement support [] Provided bereavement packet [] Provided Bible/devotional materials [] Provided toy/stuffed animal, coloring book to patient or family member [] Provided Communion [] Anointing/[place] [] Salvation [x] Completed spiritual assessment [] Other: Impact on Illness or Injury [] Angry [] Fearful [] Anxious [] Often cries [] Exhaustion [] Unable to work [] Unable to attend oriental orthodox [] Unable to walk/stand [] Unable to read [] Unable to drive [] Unable to eat/drink [] Unable to sleep [] Unable to be with family [] Patient intubated [] Other: Summary Time spent with patient
[2021-06-07] MEDS: ondansetron 2 mg/ML SDV 2 mL 4 MG IVP ×2 (10:01→17:48)
[2021-06-07 10:31] LABS: Glucose Point of Care 104 mg/dL (70-110)
--- NOTE | 2021-06-07 10:38 | PC.OT ---
OT TREATMENT ATTEMPTED. PATIENT DECLINES TREATMENT SHE IS NOT FEELING WELL AT THIS TIME. UNABLE TO STATE EXACT REASON. WILL ATTEMPT AGAIN AT A LATER TIME.
--- NOTE | 2021-06-07 13:13 | PC.NURSE ---
0700 Report received, assessment completed as charted. No c/o pain or SOB. Makes all needs known, AAOX4. Levophed off since last night around 2100 per off gong nurse. BP remains WNL, MAP >65. No issues noted. 1200 BM x 2 today, c/o pain rto hip and feet. BP drops slightly after pain meds are administered but is WNL. Will monitor.
--- NOTE | 2021-06-07 13:28 | PC.OT ---
OT TREATMENT ATTEMPTED TWICE TODAY. PATIENT IS RUDE AND ARGUMENTATIVE, ADAMANTLY REFUSING TO PARTICIPATE IN TREATMENT. STATES THAT SHE CAN DO THINGS AND TRANSFER BUT WILL DEMONSTRATE OR PERFORM WITH THERAPY
[2021-06-07 13:40] LABS: Erythrocyte Sedimentation Rate 6 mm/hr (0-15)
[2021-06-07] MEDS: CLONazepam 0.5 mg Tablet 0.25 MG PO (14:31)
--- NOTE | 2021-06-07 14:39 | PC.NURSE ---
Pt taken to MRI via [facility].
--- NOTE | 2021-06-07 15:53 | PC.NURSE ---
1545 Pt transferred to room 270. Report given to Gerri BARRETT. Pt tolerated tx well.
--- NOTE | 2021-06-07 17:07 | MR_ITS ---
WS: [id number] MRI LUMBAR SPINE NONCONTRAST HISTORY: l5-s1 possible discitis COMPARISON: None available. TECHNIQUE: Sagittal and axial multisequence imaging is submitted. Quality of this examination is limited by motion artifact. Also no IV contrast was given. Posterior alignment is normal. No marrow edema or fluid within the disc spaces to suggest discitis. N o fractures. Moderate disc space narrowing at L5-S1. Conus terminates normally at L1-2 disc level. L1-L2: Normal. L2-L3: Mild facet and ligamentum flavum hypertrophy. L3-L4: Small amount of fluid in the facet joints. No stenosis. L4-L5: Mild ligamentum flavum hypertrophy and facet arthritis. No significant stenosis. L5-S1: Diffuse annular disc bulging. No focal disc protrusions. Mild facet arthritis. Mild bilateral foraminal narrowing. Visualized retroperitoneum is negative. MR/MR lumbar spine wo con* [id number] IMPRESSION: 1. Quality of this examination is limited by motion and body habitus. Also no IV contrast was given to evaluate for discitis. 2. There are no secondary findings to suggest discitis or osteomyelitis. No si gnificant stenosis or compression upon the thecal sac.
--- NOTE | 2021-06-07 17:23 | P.PN_ITS ---
Subjective Subjective: Interval history: This morning patient was seen, she is off pressors, remains afebrile, she tells me that she feeling a lot better, she was able to sit in the chair yesterday, no nausea, no vomiting, no chest pain, her rash is also improving Vitals/I&O/Wt Last Vital Signs Temp 98.4 F 06/07/21 12:00 Pulse 80 06/07/21 13:44 Resp 18 06/07/21 16:32 BP 92/56 06/07/21 12:00 Pulse Ox 95 06/07/21 16:32 06/07/21 06/07/21 06/07/21 06:59 14:59 22:59 Intake Total 300 / 3612.122 1159.0909 / 1159.0909 Output Total 500 / 900 Balance -200 / 2712.122 1159.0909 / 1159.0909 Weight last 48 hrs Weight 87.543 kg Weight 87.543 kg Physical Exam Const: COMMON NORMALS: no acute distress ORIENTATION/CONSCIOUSNESS: Yes awake, Yes oriented to person, Yes oriented to place and Yes oriented to time Resp: COMMON NORMALS: normal respiratory effort, No retractions, No use of accessory muscles and clear to auscultation bilaterally AUSCULTATION: clear to auscultation bilaterally Cardio: COMMON NORMALS: regular rate, regular rhythm, S1 normal heart sound present and S2 normal heart sound present RATE: regular rate RHYTHM: regular rhythm HEART SOUNDS: S1 normal heart sound present and S2 normal heart sound present GI: COMMON NORMALS: Normal to inspection, nondistended, normoactive bowel sounds present, Soft to palpation and non-tender PALPATION: Yes Soft to palpation Extremity: COMMON NORMALS: no pedal edema Neuro: SENSORIUM/ORIENTATION: Yes oriented to person, Yes oriented to place and Yes oriented to time Skin: NARRATIVE SKIN EXAM: Diffuse macular rash, bilateral lower extremities, lower abdomen, chest, back, spares the face, no tongue involvement, no mouth involvement, poorly defined borders, irregular Bilateral shins, extending up to the knees, erythema, swelling, chronic skin changes Bilateral heels, Right heel, 1 x 1 cm heel DTI, no visible bone Left heel, 1 x 1 cm heel, DTI, lateral to the heel, Right forearm, 1 x 1 cm linear, DTI Left, thigh, posterior, 1 x 2 cm, by 4 cm DTI, with tunneling to the bone, Urinary Catheter Management^: Cosme: Cath Placed During This Visit: no Reason for Continuing Indwelling Catheter: Accurate Measurement of Urinary Output in Critically Ill Patients Data : 06/07/21 04:00 06/07/21 04:00 Micro: Microbiology 06/06/21 17:41 Bacterial Antigens - Final Urine,Clean Catch 06/07/21 04:05 Blood Culture - Preliminary Blood SPECIMEN COLLECTED 06/07/21 04:00 Blood Culture - Preliminary Blood SPECIMEN COLLECTED 06/03/21 14:15 Urine Culture - Final Urine,Clean Catch Escherichia coli Enterobacter cloacae A&P Assessment and plan (1) Sepsis: [facility] CT scan she has showed: -Posterior left upper thigh decubitus ulcer with associated inflammatory mass and changes in the adjacent femur compatible with osteomyelitis -The lumbar spine is stable in appearance compared to 10/02/2020. There are findings of degenerative spondylosis. The findings at L5-S1 could represent chronic disc space infection however there are no adjacent soft tissue changes and the appearance of this level has not changed since 10/02/2020. continues to have lower back pain, on low-dose Levophed, afebrile, CRP 78.3, procal 0.34 Off Levophed Blood Culture: NTD Urine Culture: E. coli, Enterobacter cloacae sensitive to imipenem -Etiology, multifactorial, from bilateral lower extremity cellulitis, from thigh decubitus ulcer with osteomyelitis, bilateral heel sacral ulcers, discitis -Certainly it is a significant possibility possible patient has discitis given her continued lower back pain complaints, and especially as she was discharged home and remained bedbound -MRI pending, Dr. Bello on consult -Nonetheless treatment for the osteomyelitis and discitis would be of the same broad-spectrum antibiotic therapy for at least 6 weeks Vancomycin Imipenem Continue fluconazole for possible fungal infection Maintain MAP>65 Has a history of adrenal insufficiency, continue hydrocortisone, fludrocortisone Levothyroxine 300 mcg, Replace magnesium, potassium, phosphorus Creatinine 1.0, monitor urine output, monitor creatinine PICC line in place Plan for today moved to general medical floors, continue IV antibiotics, await MRI, plan on chcf placement Status: Acute (2) Rash and nonspecific skin eruption: Diffuse Rash - nonspecific skin eruption Possible allergic reaction, continues to have diffuse maculopapular rash, pruritic Has features of dress syndrome, elevated eosinophils Possibilities also include toxic epidermal necrolysis versus Jim Bladimir syndrome versus dress syndrome Hepatitis C positive, possible lichen planus General surgery will perform a skin biopsy Status: Acute (3) Adrenal insufficiency: Resume Forinef, hydrocortisone Midodrine 10 MG PO TID Status: Acute (4) Stage IV pressure ulcer: -Bilateral heels, left thigh -On hospital admission March 28, 2021, had debridement -Continue offloading, wound care, monitor closely Status: Acute (5) Acute kidney injury: Acute Kidney injury / Hyponatremia Admission Serum Creatinine 1.0 Cautious IV hydration Cosme placed Has good urine output Status: Acute (6) Alcohol intoxication: Withdrawal protocol Status: Acute (7) DVT prophylaxis: Eliquis 2.5 mg BID Status: Acute (8) Osteomyelitis of femur: Status: Acute (9) Discitis: Status: Acute Additional A&P Information Heart failure preserved ejection fraction Type 2 diabetes mellitus History of GI bleed, hemoglobin down to 9.1 continue to monitor History of COPD Hypothyroidism Currently on Eliquis chronically for DVT prophylaxis, given prolonged immobility Recent history of Yazmin Martinez GI UTI Attestations Medical Necessity Statement*: Patient requires hospitalization for sepsis secondary to osteomyelitis, cellulitis, Coding Level of Care Code Acute Bobj Developer for [facility] Fwd 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
[2021-06-07 17:37] LABS: Glucose Point of Care 112 mg/dL (70-110)
[2021-06-07 18:18] LABS: Potassium 3.7 mmol/L (3.5-5.1)
--- NOTE | 2021-06-07 18:55 | PC.NURSE ---
Report to Michelle BARRETT at this time.
[2021-06-07 20:54] LABS: Glucose Point of Care 109 mg/dL (70-110)
[2021-06-08] VITALS (13 sets, daily range): BP systolic 88–110; BP diastolic 47–74; PULSE 65–99; RESP 15–20; TEMP 36.4–36.9; O2SAT 94–98
[2021-06-08] MEDS: hyDROXYzine 25 mg Capsule PO (00:23)
[2021-06-08] MEDS: midodrine 5 mg TABLET 10 MG PO ×4 (00:23→15:54)
[2021-06-08] MEDS: vancomycin 1,250 MG/250 ML PIGGYBACK 250 MG IV (05:49)
[2021-06-08] MEDS: levothyroxine 100 mcg Tablet 300 MCG PO (05:49)
[2021-06-08 06:42] LABS: Basophils % 0.6 %; Eosinophils % 15.3 %; Hematocrit 27.6 % (37.0-47.0); Hemoglobin 8.6 g/dL (11.5-15.3); Lymphocytes # 1.7 10^3/uL (0.8-4.8); Lymphocytes % 26.2 %; Mean Corpuscular HGB Conc 31.2 g/dL (30.0-36.0); Mean Corpuscular Hemoglobin 27.4 pg (28.0-34.0); Mean Corpuscular Volume 87.9 fl (81-99); Mean Platelet Volume 9.6 fL (7.4-10.4); Monocytes # 0.8 10^3/uL (0.2-0.9); Monocytes % 11.7 %; Neutrophils # 3.01 10^3/uL (1.8-7.7); Neutrophils % 45.6 %; Nucleated Red Blood Cells % 0 %; Platelet Count 204 10^3/cmm (130-400); Red Blood Count 3.14 10^6/uL (4.1-5.3); Red Cell Distribution Width 15.7 % (12.1-15.1); White Blood Count 6.6 10^3/uL (4.0-10.0)
[2021-06-08 06:43] LABS: Glucose Point of Care 87 mg/dL (70-110)
[2021-06-08] MEDS: thiamine 100 mg Tablet PO (06:53)
[2021-06-08] MEDS: folic acid 1 mg Tablet PO (06:53)
[2021-06-08] MEDS: fluconazole 100 mg Tablet 200 MG PO (06:53)
[2021-06-08 06:59] LABS: Lactate (Lactic Acid level) 1.1 mmol/L (0.5-2.2)
[2021-06-08 07:18] LABS: Alanine Aminotransferase < 5 U/L (0-33); Albumin Level 2.2 g/dL (3.5-5.2); Alkaline Phosphatase 137 IU/L (35-105); Aspartate Amino Transferase 6 U/L (0-32); Blood Urea Nitrogen 10 mg/dL (6-20); C Reactive Protein 23.2 mg/L (0.0-4.9); Calcium 7.1 mg/dL (8.5-10.5); Carbon Dioxide 24 mmol/L (22-29); Chloride 108 mmol/L (98-107); Globulin 2.2 g/dL (1.3-4.6); Glomerular Filtration Rate 67.4 mL/min (90-130); Glucose 73 mg/dL (65-115); Magnesium 1.4 mg/dL (1.7-2.3); Osmolality Calculated 288 mOsm/kg (285-295); Sodium 140 mmol/L (136-145); Total Bilirubin 0.3 mg/dL (0.15-1.2); Total Protein 4.4 g/dL (6.6-8.7)
[2021-06-08 07:25] LABS: NT Pro B Type Natriuretic Pept 8132 pg/mL (0-125); Procalcitonin 0.15 ng/mL (0-0.5)
[2021-06-08] MEDS: hydrocortisone 10 mg Tablet 5 MG PO ×2 (07:45→15:55)
[2021-06-08] MEDS: fludrocortisone 0.1 mg Tablet PO (07:46)
[2021-06-08] MEDS: apixaban 5 mg Tablet 2.5 MG PO (07:46)
[2021-06-08] MEDS: levETIRAcetam 500 mg Tablet 1000 MG PO ×2 (07:46→21:44)
[2021-06-08] MEDS: gabapentin 100 mg Capsule 200 MG PO ×3 (07:46→21:44)
[2021-06-08] MEDS: fluticasone nasal spray 16gm Btl 1 SPRAY INTRANASAL ×2 (07:47→21:45)
[2021-06-08] MEDS: pantoprazole DR 40 mg Tablet PO (07:47)
--- NOTE | 2021-06-08 07:58 | PM.PN ---
Documented by User: MINERVA Gonzalez 06/08/21 08:01 Subjective Subjective: Interval history: Pt resting comfortably. Vitals/I&O/Wt Last Vital Signs Temp 98.1 F 06/08/21 07:45 Pulse 89 06/08/21 07:45 Resp 19 H 06/08/21 07:45 BP 102/64 06/08/21 07:45 Pulse Ox 97 06/08/21 07:45 06/07/21 06/08/21 06/08/21 22:59 06:59 14:59 Intake Total 220 / 1379.0909 560 / 1939.0909 100 / 100 Output Total 450 / 450 250 / 700 Balance -230 / 929.0909 310 / 1239.0909 100 / 100 Weight last 48 hrs Weight 193 lb Physical Exam Narrative: EXAM NARRATIVE: Continued back pain wiggles her toes are warm to the touch. Urinary Catheter Management^: Cosme: Cath Placed During This Visit: no Reason for Continuing Indwelling Catheter: Assist Healing of Perineal & Sacral Wounds- Incontinent Patients Data : 06/08/21 06:27 06/08/21 06:27 Micro: Microbiology 06/03/21 03:30 Blood Culture - Final Blood NO GROWTH AFTER 5 DAYS 06/03/21 03:15 Blood Culture - Final Blood NO GROWTH AFTER 5 DAYS 06/07/21 04:00 Blood Culture - Preliminary Blood NEGATIVE TO DATE 06/07/21 04:05 Blood Culture - Preliminary Blood 06/06/21 17:41 Bacterial Antigens - Final Urine,Clean Catch A&P Assessment and plan (1) DDD (degenerative disc disease), lumbar: Status: Acute (2) Osteomyelitis of femur: Status: Acute Additional A&P Information MRI scan did not show any discitis. Most of her pain with seems to be associated with her degenerative disc disease. We will discuss treatment course with Dr. Bello. At this point we will be available if her symptoms change. Attestations Medical Necessity Statement*: defer to medical team Coding Level of Care Code Acute Manager Intensive Care for [facility] Fwd Diagnoses DDD (degenerative disc disease), lumbar M51.36 Osteomyelitis of femur M86.9 Documented by User: Aron Bello DO 06/08/21 08:08 Physical Exam Urinary Catheter Management^: Cosme: Cath Placed During This Visit: no Data : 06/08/21 06:27 06/08/21 06:27 A&P Assessment and plan (1) DDD (degenerative disc disease), lumbar: MRI reviewed. No evidence of infection at L5/S1 or in lumbar spine. At thsi point would just continue with pain management for the back Status: Acute Coding Level of Care Code Acute Manager Intensive Care for g Fwd Diagnoses DDD (degenerative disc disease), lumbar M51.36 Osteomyelitis of femur M86.9
[2021-06-08] MEDS: albuterol 8 gm MDI 2 PUFF INHALATION (08:00)
[2021-06-08] MEDS: ferrous gluconate 324 mg Tablet PO ×2 (09:04→21:42)
[2021-06-08] MEDS: lidocaine 1% 5 ML in potassium chloride premix 100 ML 25 ML IV (10:05)
[2021-06-08] MEDS: FUROsemide 10 mg/mL SDV 4mL 40 MG IVP (10:06)
[2021-06-08] MEDS: nystatin powder 15 gm Btl 1 APPLIC TOPICAL ×2 (10:06→15:57)
--- NOTE | 2021-06-08 10:27 | PC.SOCIAL ---
IMM Updated Updataed pt on IMM. No questions voiced. Provided pt a copy Initialed, dated, & timed copy in chart.
[2021-06-08] MEDS: magnesium sulfate premix 4 GM/100 ML PREMIX IV (10:43)
[2021-06-08 10:48] LABS: Vancomycin Random 32.5 ug/mL (20.0-40.0)
--- NOTE | 2021-06-08 11:00 | PC.CHAP ---
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 reimbursement coordinator visit [] Patient/Family/Request visit [] Outpatient visit [] Follow-up visit [] Physician referral [] Code/Alert [] Routine visit [] Staff referral [] Actively dying [] Patient sleeping [] Family support [] [] Out of room [] Palliative care [] [] Receiving care in room [] Pre-surgical visit [] Trauma [] Long length of stay [] ICU visit [x] Other: under doctor and staff care Relational/Emotional Strength [] Patient feels connected with others/family/visitors/staff [] Distress [] Loneliness/isolation [] Abandonment Spirituality of Patient [] Person of Angy [] Attends Taoism of their Angy [] Believes in Prayer [] Reads Bible or Jain materials [] There are Spiritual issues to be addressed Food Demonstrator Interventions [] Prayer [] Active listening [] Non-anxious presence [] Spiritual/emotional support [] Crisis/trauma care [] Spiritual counseling [] Bereavement support [] Provided bereavement packet [] Provided Bible/devotional materials [] Provided toy/stuffed animal, coloring book to patient or family member [] Provided Communion [] Anointing/[place] [] Salvation [] Completed spiritual assessment [] Other: Impact on Illness or Injury [] Angry [] Fearful [] Anxious [] Often cries [] Exhaustion [] Unable to work [] Unable to attend methodist [] Unable to walk/stand [] Unable to read [] Unable to drive [] Unable to eat/drink [] Unable to sleep [] Unable to be with family [] Patient intubated [] Other: Summary under doctor and staff care Time spent with patient 5 mins
--- NOTE | 2021-06-08 11:20 | PC.OT ---
OT TREATMENT ATTEMPTED. PATIENT MUMBLES SOMETHING ABOUT PAIN MEDS; WHEN ASKED TO CLARIFY SHE YELLED, I SAID THAT I DIDN'T HAVE ANY PAIN MEDS AND I'M NOT F------ DOING ANYTHING. WHEN WE STATED THAT WE DID NOT HEAR HER AND WERE JUST CLARIFYING WHAT WE THOUGHT THAT WE HEARD HER SAY, SHE STATED, YOU DIDN'T HEAR BUT YET YOU TYPE EVERYTHING I SAY. SHE STATED, WHEN THAT HEIFER BRINGS ME MY PAIN MEDS, MAYBE THEN I WILL DO SOMETHING. THERAPY STATED THAT WE WOULD TRY TO SEE HER AGAIN THIS AFTERNOON.
[2021-06-08 11:26] LABS: Glucose Point of Care 95 mg/dL (70-110)
[2021-06-08] MEDS: HYDROmorphone 1 mg/mL INJ 1 mL 0.2 MG IVP (12:10)
[2021-06-08] MEDS: lidocaine 1% INJ 20 mL INTRADERMA (12:14)
--- NOTE | 2021-06-08 12:26 | P.PN_ITS ---
Subjective Subjective: Interval history: Patient was seen this morning, she tells me that she is having a lot of pain in her lower back, in her left heel, no fevers overnight, no nausea, no vomiting, no lightheadedness, no dizziness, denies any bloody or black stools Patient initially declined group home stay, she tells me she is not going to any group home, I advised patient that she has significant left thigh DTI with tunneling down to the bone with osteomyelitis, and she will require long-term IV antibiotic therapy, wound care, she voiced understanding, she is agreeable to group home stay but she wants to go to nursing homes in [place], is agreeable to possible swing bed Vitals/I&O/Wt Last Vital Signs Temp 98.4 F 06/08/21 11:33 Pulse 65 06/08/21 11:33 Resp 17 06/08/21 12:10 BP 106/74 06/08/21 11:33 Pulse Ox 98 06/08/21 11:33 06/07/21 06/08/21 06/08/21 22:59 06:59 14:59 Intake Total 220 / 1379.0909 560 / 1939.0909 910 / 910 Output Total 450 / 450 250 / 700 Balance -230 / 929.0909 310 / 1239.0909 910 / 910 Weight last 48 hrs Weight 87.543 kg Physical Exam Const: COMMON NORMALS: no acute distress ORIENTATION/CONSCIOUSNESS: Yes awake, Yes oriented to person, Yes oriented to place and Yes oriented to time Resp: COMMON NORMALS: normal respiratory effort, No retractions, No use of accessory muscles and clear to auscultation bilaterally AUSCULTATION: clear to auscultation bilaterally Cardio: COMMON NORMALS: regular rate, regular rhythm, S1 normal heart sound present and S2 normal heart sound present RATE: regular rate RHYTHM: regular rhythm HEART SOUNDS: S1 normal heart sound present and S2 normal heart sound present GI: COMMON NORMALS: Normal to inspection, nondistended, normoactive bowel sounds present, Soft to palpation and non-tender PALPATION: Yes Soft to palpation Extremity: NARRATIVE EXTREMITY EXAM: 1+ edema Neuro: SENSORIUM/ORIENTATION: Yes oriented to person, Yes oriented to place and Yes oriented to time Skin: NARRATIVE SKIN EXAM: Diffuse macular rash, bilateral lower extremities, lower abdomen, chest, back, spares the face, no tongue involvement, no mouth involvement, poorly defined borders, irregular, now crusting off and flaking of the skin Bilateral shins, extending up to the knees, erythema, swelling, chronic skin changes Bilateral heels, Right heel, 1 x 1 cm heel DTI, no visible bone Left heel, 1 x 1 cm heel, DTI, lateral to the heel, Right forearm, 1 x 1 cm linear, DTI Left, thigh, posterior, 1 x 2 cm, by 4 cm DTI, with tunneling to the bone, Urinary Catheter Management^: Cosme: Cath Placed During This Visit: no Reason for Continuing Indwelling Catheter: Assist Healing of Perineal & Sacral Wounds- Incontinent Patients Data : 06/08/21 06:27 06/08/21 06:27 Micro: Microbiology 06/06/21 10:05 Gram Stain - Final Sputum - Expectorated Sputum 06/03/21 03:30 Blood Culture - Final Blood NO GROWTH AFTER 5 DAYS 06/03/21 03:15 Blood Culture - Final Blood NO GROWTH AFTER 5 DAYS 06/07/21 04:00 Blood Culture - Preliminary Blood NEGATIVE TO DATE 06/07/21 04:05 Blood Culture - Preliminary Blood 06/06/21 17:41 Bacterial Antigens - Final Urine,Clean Catch A&P Assessment and plan (1) Sepsis: [facility] CT scan she has showed: -Posterior left upper thigh decubitus ulcer with associated inflammatory mass an d changes in the adjacent femur compatible with osteomyelitis -The lumbar spine is stable in appearance compared to 10/02/2020. There are findings of degenerative spondylosis. The findings at L5-S1 could represent chronic disc space infection however there are no adjacent soft tissue changes and the appearance of this level has not changed since 10/02/2020. -MRI of the lumbar spine showed no secondary features suggestive of discitis or osteomyelitis Blood Culture: NTD Urine Culture: E. coli, Enterobacter cloacae sensitive to imipenem -Etiology, multifactorial, from bilateral lower extremity cellulitis, from thigh decubitus ulcer with osteomyelitis, bilateral heel sacral ulcers Plan 6 weeks of vancomycin Given resistant bacterial organisms for urine culture as above, continue Primaxin for at least 5 days, de-escalate to Cipro 500 twice daily for osteomyelitis Continue fluconazole for possible fungal infection Continue midodrine, albumin therapy 1 dose of Lasix today Has a history of adrenal insufficiency, continue hydrocortisone, fludrocortisone Levothyroxine 300 mcg, Replace magnesium, potassium, phosphorus Creatinine 0.9, monitor urine output, monitor creatinine PICC line in place Plan for today moved to general medical floors, continue IV antibiotics, working on group home placement Status: Acute (2) Rash and nonspecific skin eruption: Diffuse Rash - nonspecific skin eruption, now flaking off Possible allergic reaction, continues to have diffuse maculopapular rash, pruritic Has features of dress syndrome, elevated eosinophils Possibilities also include toxic epidermal necrolysis versus Jim Bladimir syndrome versus dress syndrome Hepatitis C positive, possible lichen planus General surgery will perform a skin biopsy Status: Acute (3) Adrenal insufficiency: Resume Forinef, hydrocortisone Midodrine 10 MG PO TID Status: Acute (4) Stage IV pressure ulcer: -Bilateral heels, left thigh -On hospital admission March 28, 2021, had debridement -Continue offloading, wound care, monitor closely Status: Acute (5) Acute kidney injury: Acute Kidney injury / Hyponatremia Admission Serum Creatinine 0.9 Cautious IV hydration Cosme placed Has good urine output Status: Acute (6) Alcohol intoxication: Withdrawal protocol Status: Acute (7) DVT prophylaxis: Status: Acute (8) Osteomyelitis of femur: Status: Acute Additional A&P Information Hepatitis C antibody positive, will order genotype and PCR Heart failure preserved ejection fraction Type 2 diabetes mellitus Acute on chronic anemia secondary to history of GI bleed, hemoglobin down to 8.6, recheck hemoglobin the afternoon, Hemoccult stool, hold Eliquis for now History of COPD Hypothyroidism Eliquis on hold ty Recent history of Yazmin Martinez GI UTI Attestations Medical Necessity Statement*: Patient requires hospitalization for sepsis secondary to osteomyelitis, thigh DTI, adrenal insufficiency, now with anemia Coding Level of Care Code Acute Complaint Supervisor for [facility] Fwd Diagnoses Sepsis A41.9 Rash and nonspecific skin eruption R21 Adrenal insufficiency E27.40 Stage IV pressure ulcer L89.94 Acute kidney injury N17.9 Alcohol intoxication F10.929 DVT prophylaxis Z29.9 Osteomyelitis of femur M86.9
--- NOTE | 2021-06-08 13:39 | PM.ACPR ---
Procedure/Consent Time out: Time Out Performed: Yes Consent: Consent for Procedure: Consent obtained from patient Procedure Narrative: Preoperative diagnosis: Generalized erythematous rash Postop diagnosis: Same Surgeon: Jenaro Anesthesia: Local Procedure: Punch biopsy right thigh x2 Description of the procedure. After consent was obtained the right thigh was prepped and draped in a sterile manner over the area of erythematous rash and 5 cc of 1% lidocaine was infiltrated in the subcutaneous space. 4 mm punch biopsy x2 was obtained and hemostasis ensured with silver nitrate. Sterile dressings were applied. Patient tolerated procedure well. Acute Procedures Epistaxis Control: Time out performed: Yes
[2021-06-08] MEDS: lidocaine 1% 5 ML in potassium chloride premix 100 ML 50 ML IV (14:20)
--- NOTE | 2021-06-08 14:39 | PC.NURSE ---
Gown changed, did not want her bed sheets changed.
[2021-06-08 17:11] LABS: Glucose Point of Care 109 mg/dL (70-110)
[2021-06-08 20:11] LABS: Hematocrit 25.1 % (37.0-47.0); Hemoglobin 7.9 g/dL (11.5-15.3)
[2021-06-08 20:33] LABS: Glucose Point of Care 132 mg/dL (70-110)
[2021-06-09] VITALS (16 sets, daily range): BP systolic 102–123; BP diastolic 57–82; PULSE 55–102; RESP 14–18; TEMP 36.6–37.2; O2SAT 92–98
[2021-06-09] MEDS: midodrine 5 mg TABLET 10 MG PO ×5 (00:37→22:26)
[2021-06-09] MEDS: hyDROXYzine 25 mg Capsule PO ×2 (04:45→23:13)
[2021-06-09] MEDS: ondansetron 2 mg/ML SDV 2 mL 4 MG IVP ×2 (05:50→15:39)
[2021-06-09] MEDS: vancomycin 1,250 MG/250 ML PIGGYBACK 250 MG IV (05:58)
[2021-06-09] MEDS: tizanidine 4 mg Tablet 2 MG PO ×2 (06:04→23:13)
[2021-06-09] MEDS: levothyroxine 100 mcg Tablet 300 MCG PO (06:04)
[2021-06-09] MEDS: folic acid 1 mg Tablet PO (06:04)
[2021-06-09] MEDS: thiamine 100 mg Tablet PO (06:04)
[2021-06-09 06:33] LABS: Glucose Point of Care 95 mg/dL (70-110)
[2021-06-09 06:38] LABS: Basophils # 0.1 10^3/uL (0.0-0.1); Basophils % 1.1 %; Eosinophils # 0.6 10^3/uL (0.0-0.8); Eosinophils % 10.2 %; Hematocrit 25.7 % (37.0-47.0); Hemoglobin 7.9 g/dL (11.5-15.3); Lymphocytes # 1.8 10^3/uL (0.8-4.8); Mean Corpuscular HGB Conc 30.7 g/dL (30.0-36.0); Mean Corpuscular Hemoglobin 27.1 pg (28.0-34.0); Mean Platelet Volume 9.4 fL (7.4-10.4); Monocytes # 0.7 10^3/uL (0.2-0.9); Monocytes % 11.6 %; Neutrophils # 2.57 10^3/uL (1.8-7.7); Neutrophils % 44.9 %; Nucleated Red Blood Cells % 0 %; Platelet Count 267 10^3/cmm (130-400); Red Blood Count 2.92 10^6/uL (4.1-5.3); Red Cell Distribution Width 15.9 % (12.1-15.1); White Blood Count 5.7 10^3/uL (4.0-10.0)
[2021-06-09 06:58] LABS: Alanine Aminotransferase < 5 U/L (0-33); Albumin Level 2.6 g/dL (3.5-5.2); Alkaline Phosphatase 112 IU/L (35-105); Anion Gap 11.9 (5-19); Aspartate Amino Transferase 7 U/L (0-32); Blood Urea Nitrogen 8 mg/dL (6-20); C Reactive Protein 13.4 mg/L (0.0-4.9); Calcium 7.5 mg/dL (8.5-10.5); Carbon Dioxide 26 mmol/L (22-29); Chloride 110 mmol/L (98-107); Globulin 2.1 g/dL (1.3-4.6); Glomerular Filtration Rate 67.4 mL/min (90-130); Glucose 82 mg/dL (65-115); Magnesium 1.8 mg/dL (1.7-2.3); Osmolality Calculated 297 mOsm/kg (285-295); Phosphorus 2.6 mg/dL (2.5-4.5); Sodium 145 mmol/L (136-145); Total Bilirubin 0.2 mg/dL (0.15-1.2); Total Protein 4.7 g/dL (6.6-8.7)
[2021-06-09 07:01] LABS: Potassium 2.9 mmol/L (3.5-5.1)
[2021-06-09 07:06] LABS: NT Pro B Type Natriuretic Pept 11218 pg/mL (0-125); Procalcitonin 0.11 ng/mL (0-0.5)
[2021-06-09] MEDS: hydrocortisone 10 mg Tablet 5 MG PO ×2 (07:31→17:07)
--- NOTE | 2021-06-09 07:31 | PM.PN ---
Documented by User: MINERVA Gonzalez 06/09/21 07:42 Subjective Subjective: Interval history: Patient resting comfortably. when she is awake c/o Low back and Left leg pain. No changes since hospitalization. Vitals/I&O/Wt Last Vital Signs Temp 98.3 F 06/09/21 04:00 Pulse 100 06/09/21 04:00 Resp 18 06/09/21 04:45 BP 123/62 06/09/21 04:00 Pulse Ox 95 06/09/21 04:00 06/08/21 06/09/21 06/09/21 22:59 06:59 14:59 Intake Total 645 / 2240 750 / 2990 Output Total 650 / 2700 Balance -5 / -460 750 / 290 Physical Exam Resp: COMMON NORMALS: normal respiratory effort Cardio: COMMON NORMALS: regular rate and regular rhythm RATE: regular rate RHYTHM: regular rhythm Psych: COMMON NORMALS: cooperative Urinary Catheter Management^: Cosme: Cath Placed During This Visit: no Reason for Continuing Indwelling Catheter: Required Immobilization for Trauma or Surgery or Anesthesia Data : 06/09/21 06:19 06/09/21 06:19 Micro: Microbiology 06/07/21 04:00 Blood Culture - Preliminary Blood Gram positive cocci 06/07/21 04:05 Blood Culture - Preliminary Blood Gram Negative Rods 06/06/21 10:05 Gram Stain - Final Sputum - Expectorated Sputum Sputum Culture - Preliminary 06/03/21 03:30 Blood Culture - Final Blood NO GROWTH AFTER 5 DAYS 06/03/21 03:15 Blood Culture - Final Blood NO GROWTH AFTER 5 DAYS A&P Assessment and plan (1) DDD (degenerative disc disease), lumbar: Status: Acute Additional A&P Information Discussed that most of her back pain seems to be resonating from the degenerative disc disease there is no signs of discitis. Orthopedics will be available if her symptoms change. Attestations Medical Necessity Statement*: defer to medical team Coding Level of Care Code Acute Senior [employer] Developer for [facility] Fwd Exam Expanded Problem Focused Diagnoses DDD (degenerative disc disease), lumbar M51.36 Documented by User: Aron Bello DO 06/09/21 09:03 Physical Exam Urinary Catheter Management^: Cosme: Cath Placed During This Visit: no Data : 06/09/21 06:19 06/09/21 06:19 A&P Assessment and plan (1) DDD (degenerative disc disease), lumbar: patient seen agree with above A/P Status: Acute Coding Level of Care Code Acute Senior [employer] Developer for [facility] Fwd Exam Expanded Problem Focused Diagnoses DDD (degenerative disc disease), lumbar M51.36
[2021-06-09] MEDS: fludrocortisone 0.1 mg Tablet PO (07:32)
[2021-06-09] MEDS: ferrous gluconate 324 mg Tablet PO ×2 (07:32→22:25)
[2021-06-09] MEDS: gabapentin 100 mg Capsule 200 MG PO ×3 (07:33→22:25)
[2021-06-09] MEDS: levETIRAcetam 500 mg Tablet 1000 MG PO ×2 (07:34→22:25)
[2021-06-09] MEDS: pantoprazole DR 40 mg Tablet PO (07:35)
[2021-06-09] MEDS: albuterol 8 gm MDI 2 PUFF INHALATION (07:54)
[2021-06-09] MEDS: nystatin powder 15 gm Btl 1 APPLIC TOPICAL ×2 (08:33→17:08)
[2021-06-09] MEDS: fluticasone nasal spray 16gm Btl 1 SPRAY INTRANASAL (08:33)
[2021-06-09] MEDS: lidocaine 1% 5 ML in potassium chloride premix 100 ML 25 ML IV (09:10)
[2021-06-09] MEDS: metoclopramide 5 mg/mL SDV 2 mL IVP (09:56)
[2021-06-09 10:58] LABS: Glucose Point of Care 153 mg/dL (70-110)
--- NOTE | 2021-06-09 14:25 | P.PN_ITS ---
Subjective Subjective: Interval history: Patient was seen this morning, she has no complaints, no fevers, chills, nausea, vomiting, no lightheadedness, dizziness, she is agreed for halfway placement, she is a bit hesitant to participate ead with physical therapy Vitals/I&O/Wt Last Vital Signs Temp 98.6 F 06/09/21 14:16 Pulse 79 06/09/21 14:16 Resp 14 06/09/21 14:16 BP 119/65 06/09/21 14:16 Pulse Ox 96 06/09/21 11:37 06/08/21 06/09/21 06/09/21 22:59 06:59 14:59 Intake Total 645 / 2240 750 / 2990 425 / 425 Output Total 650 / 2700 Balance -5 / -460 750 / 290 425 / 425 Physical Exam Const: COMMON NORMALS: no acute distress and alert ORIENTATION/CONSCIOUSNESS: Yes awake, Yes oriented to person, Yes oriented to place and Yes oriented to time Chest: COMMONS NORMALS: normal inspection of the chest Resp: COMMON NORMALS: normal respiratory effort, No retractions, No use of accessory muscles and clear to auscultation bilaterally AUSCULTATION: clear to auscultation bilaterally Cardio: COMMON NORMALS: regular rate, regular rhythm, S1 normal heart sound present and S2 normal heart sound present RATE: regular rate RHYTHM: regular rhythm HEART SOUNDS: S1 normal heart sound present and S2 normal heart sound present GI: COMMON NORMALS: Normal to inspection, nondistended, normoactive bowel sounds present, Soft to palpation and non-tender PALPATION: Yes Soft to palpation Extremity: COMMON NORMALS: no pedal edema NARRATIVE EXTREMITY EXAM: 1+ edema Neuro: SENSORIUM/ORIENTATION: Yes alert, Yes oriented to person, Yes oriented to place and Yes oriented to time Skin: NARRATIVE SKIN EXAM: Diffuse macular rash, bilateral lower extremities, lower abdomen, chest, back, spares the face, no tongue involvement, no mouth i nvolvement, poorly defined borders, irregular, now crusting off and flaking of the skin Bilateral shins, extending up to the knees, erythema, swelling, chronic skin changes significantly improved Bilateral heels, Right heel, 1 x 1 cm heel DTI, no visible bone Left heel, 1 x 1 cm heel, DTI, lateral to the heel, Right forearm, 1 x 1 cm linear, DTI Left, thigh, posterior, 1 x 2 cm, by 4 cm DTI, with tunneling to the bone, packed Urinary Catheter Management^: Cosme: Cath Placed During This Visit: no Reason for Continuing Indwelling Catheter: Required Immobilization for Trauma or Surgery or Anesthesia Data : 06/09/21 06:19 06/09/21 06:19 Micro: Microbiology 06/09/21 11:00 Blood Culture - Preliminary Blood SPECIMEN COLLECTED 06/09/21 11:50 Blood Culture - Preliminary Blood SPECIMEN COLLECTED 06/07/21 04:00 Blood Culture - Preliminary Blood Enterococcus species 06/06/21 10:05 Gram Stain - Final Sputum - Expectorated Sputum Sputum Culture - Final 06/07/21 04:05 Blood Culture - Preliminary Blood Acinetobacter baumannii/haemol A&P Assessment and plan (1) Sepsis: [facility] CT scan she has showed: -Posterior left upper thigh decubitus ulcer with associated inflammatory mass and changes in the adjacent femur compatible with osteomyelitis -The lumbar spine is stable in appearance compared to 10/02/2020. There are findings of degenerative spondylosis. The findings at L5-S1 could represent chronic disc space infection however there are no adjacent soft tissue changes and the appearance of this level has not changed since 10/02/2020. -MRI of the lumbar spine showed no secondary features suggestive of discitis or osteomyelitis Blood Culture: NTD Urine Culture: E. coli, Enterobacter cloacae sensitive to imipenem -Etiology, multifactorial, from bilateral lower extremity cellulitis, from thigh decubitus ulcer with osteomyelitis, bilateral heel sacral ulcers Plan 6 weeks of vancomycin , random vanc trough 06/10/2021 Given resistant bacterial organisms for urine culture as above, continue Primaxin for at least 5 days, de-escalate to Cipro 500 twice daily for osteomyelitis 2 blood cultures show Enterococcus and acinobacter, likely contamination repeat blood cultures ordered Hemoglobin 7.9, transfuse 1 unit PRBC, Eliquis on hold Continue midodrine, albumin therapy Potassium 2.9, will replace Has a history of adrenal insufficiency, continue hydrocortisone, fludrocortisone Levothyroxine 300 mcg, Replace magnesium, potassium, phosphorus Creatinine 0.9, monitor urine output, monitor creatinine PICC line in place Plan for today continue antibiotics, 1 dose of Lasix, transfuse 1 unit PRBC, replace potassium, working on halfway placement Status: Acute (2) Rash and nonspecific skin eruption: Diffuse Rash - nonspecific skin eruption, now flaking off Possible allergic reaction, continues to have diffuse maculopapular rash, pruritic Has features of dress syndrome, elevated eosinophils Possibilities also include toxic epidermal necrolysis versus Jim Bladimir syndrome versus dress syndrome Hepatitis C positive, possible lichen planus Skin biopsy pending Status: Acute (3) Adrenal insufficiency: Resume Forinef, hydrocortisone Midodrine 10 MG PO TID Status: Acute (4) Stage IV pressure ulcer: -Bilateral heels, left thigh -On hospital admission March 28, 2021, had debridement -Continue offloading, wound care, monitor closely Status: Acute (5) Acute kidney injury: Acute Kidney injury / Hyponatremia Admission Serum Creatinine 0.9 Cautious IV hydration Cosme placed Has good urine output Status: Acute (6) Alcohol intoxication: Withdrawal protocol Status: Acute (7) DVT prophylaxis: Status: Acute (8) Osteomyelitis of femur: Status: Acute Additional A&P Information Hepatitis C antibody positive, will order genotype and PCR Heart failure preserved ejection fraction Type 2 diabetes mellitus Acute on chronic anemia secondary to history of GI bleed, hemoglobin down to 7.9, transfuse 1 unit PRBC, Hemoccult stool, hold Eliquis History of COPD Hypothyroidism Eliquis on hold ty Recent history of Yazmin Martinez GI UTI Attestations Medical Necessity Statement*: Patient requires hospitalization for sacral decubitus ulcer with sepsis, requiring chronic antibiotic therapy, wound now wit h anemia, Coding Level of Care Code Acute Rn Transport for [facility] Fwd Diagnoses Sepsis A41.9 Rash and nonspecific skin eruption R21 Adrenal insufficiency E27.40 Stage IV pressure ulcer L89.94 Acute kidney injury N17.9 Alcohol intoxication F10.929 DVT prophylaxis Z29.9 Osteomyelitis of femur M86.9
[2021-06-09] MEDS: FUROsemide 10 mg/mL SDV 4mL 40 MG IVP (15:39)
--- NOTE | 2021-06-09 15:44 | PC.NURSE ---
Clarified Lasix 40mg IVP with Dr. Arita pt's K 2.9 Orders received to administer PO potasium 40mg once with lasix 40mg IVP.
[2021-06-09] MEDS: potassium chloride ER 20 mEq Tablet 40 MEQ PO (15:51)
[2021-06-09 17:06] LABS: Glucose Point of Care 104 mg/dL (70-110)
[2021-06-09] MEDS: CLONazepam 0.5 mg Tablet 0.25 MG PO (17:07)
[2021-06-09 17:32] LABS: Hemoglobin 8.7 g/dL (11.5-15.3)
[2021-06-09 17:37] LABS: Hematocrit 27.6 % (37.0-47.0)
[2021-06-09 22:08] LABS: Glucose Point of Care 130 mg/dL (70-110)
[2021-06-10] VITALS (14 sets, daily range): BP systolic 104–130; BP diastolic 66–90; PULSE 55–110; RESP 16–20; TEMP 36.5–37.1; O2SAT 94–97
--- NOTE | 2021-06-10 03:30 | PC.NURSE ---
This nurse gave report to Yumiko Delgado LPN who then assumed care of patient at 0330.
[2021-06-10] MEDS: midodrine 5 mg TABLET 10 MG PO ×4 (04:15→23:12)
[2021-06-10 05:05] LABS: Basophils # 0.1 10^3/uL (0.0-0.1); Basophils % 1.1 %; Eosinophils # 0.6 10^3/uL (0.0-0.8); Eosinophils % 7.5 %; Hematocrit 30.2 % (37.0-47.0); Hemoglobin 9.5 g/dL (11.5-15.3); Lymphocytes # 1.9 10^3/uL (0.8-4.8); Lymphocytes % 24.7 %; Mean Corpuscular HGB Conc 31.5 g/dL (30.0-36.0); Mean Corpuscular Hemoglobin 28.5 pg (28.0-34.0); Mean Corpuscular Volume 90.7 fl (81-99); Mean Platelet Volume 9.5 fL (7.4-10.4); Monocytes # 0.7 10^3/uL (0.2-0.9); Monocytes % 9.7 %; Neutrophils # 4.25 10^3/uL (1.8-7.7); Neutrophils % 56.6 %; Nucleated Red Blood Cells % 0 %; Platelet Count 264 10^3/cmm (130-400); Red Blood Count 3.33 10^6/uL (4.1-5.3); Red Cell Distribution Width 15.9 % (12.1-15.1); White Blood Count 7.5 10^3/uL (4.0-10.0)
[2021-06-10 05:35] LABS: Vancomycin Trough 15.4 ug/mL (10-15)
[2021-06-10 05:37] LABS: Alanine Aminotransferase < 5 U/L (0-33); Albumin Level 3.3 g/dL (3.5-5.2); Alkaline Phosphatase 109 IU/L (35-105); Anion Gap 9.3 (5-19); Aspartate Amino Transferase 9 U/L (0-32); Blood Urea Nitrogen 6 mg/dL (6-20); C Reactive Protein 8.2 mg/L (0.0-4.9); Calcium 7.7 mg/dL (8.5-10.5); Carbon Dioxide 29 mmol/L (22-29); Chloride 109 mmol/L (98-107); Glomerular Filtration Rate 107.6 mL/min (90-130); Glucose 93 mg/dL (65-115); Magnesium 1.4 mg/dL (1.7-2.3); Osmolality Calculated 295 mOsm/kg (285-295); Phosphorus 2.3 mg/dL (2.5-4.5); Potassium 3.3 mmol/L (3.5-5.1); Sodium 144 mmol/L (136-145); Total Bilirubin 0.4 mg/dL (0.15-1.2); Total Protein 5.3 g/dL (6.6-8.7)
[2021-06-10] MEDS: levothyroxine 100 mcg Tablet 300 MCG PO (05:58)
[2021-06-10] MEDS: vancomycin 1,250 MG/250 ML PIGGYBACK 250 MG IV (05:58)
[2021-06-10] MEDS: folic acid 1 mg Tablet PO (06:00)
[2021-06-10] MEDS: thiamine 100 mg Tablet PO (06:00)
[2021-06-10 06:15] LABS: NT Pro B Type Natriuretic Pept 12215 pg/mL (0-125); Procalcitonin 0.07 ng/mL (0-0.5)
[2021-06-10 06:53] LABS: Glucose Point of Care 86 mg/dL (70-110)
[2021-06-10] MEDS: metoclopramide 5 mg/mL SDV 2 mL IVP (07:42)
[2021-06-10] MEDS: albuterol 8 gm MDI 2 PUFF INHALATION (08:48)
[2021-06-10] MEDS: levETIRAcetam 500 mg Tablet 1000 MG PO ×2 (09:13→19:25)
[2021-06-10] MEDS: pantoprazole DR 40 mg Tablet PO (09:14)
[2021-06-10] MEDS: ferrous gluconate 324 mg Tablet PO ×2 (09:14→19:25)
[2021-06-10] MEDS: fludrocortisone 0.1 mg Tablet PO (09:14)
[2021-06-10] MEDS: gabapentin 100 mg Capsule 200 MG PO ×3 (09:14→19:25)
[2021-06-10] MEDS: hydrocortisone 10 mg Tablet 5 MG PO ×2 (09:14→17:29)
[2021-06-10] MEDS: fluticasone nasal spray 16gm Btl 1 SPRAY INTRANASAL ×2 (09:29→19:25)
[2021-06-10] MEDS: nystatin powder 15 gm Btl 1 APPLIC TOPICAL ×2 (09:32→17:29)
--- NOTE | 2021-06-10 09:40 | PC.SOCIAL ---
IMM update IMM updated with patient. Verbalized an understanding. Copy Pg2 provided. Initialled,dated, timed, and placed in chart.
[2021-06-10 11:07] LABS: Glucose Point of Care 94 mg/dL (70-110)
--- NOTE | 2021-06-10 13:50 | PM.PN ---
Subjective Subjective: Interval history: Patient was seen this morning, no fevers, chills, no nausea, vomiting she is a bit frustrated about going to a senior care, she is wondering why she cannot go home, patient declines to work with physical therapy staff at times, advised patient that is very important for her to work with physical therapy staff, and to get up to the side of the bed, to offload her ulcers, as she is increased risk of developing worsening DTI's, Vitals/I&O/Wt Last Vital Signs Temp 97.8 F 06/10/21 11:36 Pulse 88 06/10/21 11:36 Resp 18 06/10/21 11:36 BP 104/72 06/10/21 11:36 Pulse Ox 96 06/10/21 11:36 06/09/21 06/10/21 06/10/21 22:59 06:59 14:59 Intake Total 1090 / 1515 1900 / 3415 950 / 950 Output Total 1000 / 1000 820 / 1820 800 / 800 Balance 90 / 515 1080 / 1595 150 / 150 Weight last 48 hrs Weight 87.543 kg Physical Exam Const: COMMON NORMALS: no acute distress ORIENTATION/CONSCIOUSNESS: Yes awake, Yes oriented to person, Yes oriented to place and Yes oriented to time Chest: COMMONS NORMALS: normal inspection of the chest Resp: COMMON NORMALS: normal respiratory effort, No retractions, No use of accessory muscles and clear to auscultation bilaterally AUSCULTATION: clear to auscultation bilaterally Cardio: COMMON NORMALS: regular rate, regular rhythm, S1 normal heart sound present and S2 normal heart sound present RATE: regular rate RHYTHM: regular rhythm HEART SOUNDS: S1 normal heart sound present and S2 normal heart sound present GI: COMMON NORMALS: Normal to inspection, nondistended, normoactive bowel sounds present, Soft to palpation and non-tender PALPATION: Yes Soft to palpation Extremity: COMMON NORMALS: no pedal edema OTHER: Right arm PICC line Neuro: SENSORIUM/ORIENTATION: Yes oriented to person, Yes oriented to place and Yes oriented to time Skin: NARRATIVE SKIN EXAM: Diffuse macular rash, bilateral lower extremities, lower abdomen, chest, back, spares the face, no tongue involvement, no mouth involvement, poorly defined borders, irregular, now crusting off and flaking of the skin Bilateral shins, extending up to the knees, erythema, swelling, chronic skin changes significantly improved Bilateral heels, Right heel, 1 x 1 cm heel DTI, no visible bone Left heel, 1 x 1 cm heel, DTI, lateral to the heel, Right forearm, 1 x 1 cm linear, DTI Left, thigh, posterior, 1 x 2 cm, by 4 cm DTI, with tunneling to the bone, packed Urinary Catheter Management^: Cosme: Cath Placed During This Visit: no Reason for Continuing Indwelling Catheter: Assist Healing of Perineal & Sacral Wounds- Incontinent Patients Data : 06/10/21 04:55 06/10/21 04:55 Micro: Microbiology 06/07/21 04:00 Blood Culture - Preliminary Blood Enterococcus faecium vre Acinetobacter baumannii/haemol 06/09/21 11:00 Blood Culture - Preliminary Blood NEGATIVE TO DATE 06/09/21 11:50 Blood Culture - Preliminary Blood NEGATIVE TO DATE 06/07/21 04:05 Blood Culture - Preliminary Blood Acinetobacter baumannii/haemol Gram positive cocci 06/09/21 15:16 Occult Blood (FIT) - Final Stool Routine Collection 06/06/21 10:05 Gram Stain - Final Sputum - Expectorated Sputum Sputum Culture - Final A&P Assessment and plan (1) Sepsis: [facility] CT scan she has showed: -Posterior left upper thigh decubitus ulcer with associated inflammatory mass and changes in the adjacent femur compatible with osteomyelitis -The lumbar spine is stable in appearance compared to 10/02/2020. There are findings of degenerative spondylosis. The findings at L5-S1 could represent chronic disc space infection however there are no adjacent soft tissue changes and the appearance of this level has not changed since 10/02/2020. -MRI of the lumbar spine showed no secondary features suggestive of discitis or osteomyelitis Blood Culture: NTD Urine Culture: E. coli, Enterobacter cloacae sensitive to imipenem -Etiology, multifactorial, from bilateral lower extremity cellulitis, from thigh decubitus ulcer with osteomyelitis, bilateral heel sacral ulcers, UTI Plan 6 weeks of vancomycin , vancomycin trough 15.4 Completed 5 days of Primaxin for UTI Continue Cipro 500 twice daily for osteomyelitis 1 blood culture showed VRE Enterococcus and another blood culture showed acinobacter, likely contamination repeat blood cultures ordered which are negative, as patient is clinically getting better However if repeat blood cultures show above organisms, will have to remove Cosme catheter, and PICC line, continue antibiotics for 48 hours, ensure repeat blood cultures are negative before putting new PICC line I did order a echocardiogram to evaluate for possible endocarditis, however patient was verbally abusive with fingernail technician staff, and refused Hemoglobin 9.5, status post 1 unit PRBC, Eliquis on hold Continue midodrine, albumin therapy 1 dose of Lasix today, potassium 3.3, will replace Has a history of adrenal insufficiency, continue hydrocortisone, fludrocortisone Levothyroxine 300 mcg, Replace magnesium, potassium, phosphorus PICC line in place Full code SCDs for DVT prophylaxis, anticoagulation contraindicated given GI bleed, anemia Plan for today continue antibiotics, 1 dose of Lasix, replace potassium, working on senior care placement, encourage PT OT Status: Acute (2) Rash and nonspecific skin eruption: Diffuse Rash - nonspecific skin eruption, now flaking off Possible allergic reaction, continues to have diffuse maculopapular rash, pruritic Has features of dress syndrome, elevated eosinophils Possibilities also include toxic epidermal necrolysis versus Jim Bladimir syndrome versus dress syndrome Hepatitis C positive, possible lichen planus Skin biopsy pending Status: Acute (3) Adrenal insufficiency: Resume Forinef, hydrocortisone Midodrine 10 MG PO TID Status: Acute (4) Stage IV pressure ulcer: -Bilateral heels, left thigh -On hospital admission March 28, 2021, had debridement -Continue offloading, wound care, monitor closely Status: Acute (5) Acute kidney injury: Acute Kidney injury / Hyponatremia Admission Serum Creatinine 0.9 Cautious IV hydration Cosme placed Has good urine output Status: Acute (6) Alcohol intoxication: Withdrawal protocol Status: Acute (7) DVT prophylaxis: Status: Acute (8) Osteomyelitis of femur: Status: Acute Additional A&P Information Hepatitis C antibody positive, will order genotype and PCR Heart failure preserved ejection fraction Type 2 diabetes mellitus Acute on chronic anemia secondary to history of GI bleed, hemoglobin now 9.5 status post 1 unit PRBC, Hemoccult stool, hold Eliquis History of COPD Hypothyroidism Eliquis on hold Attestations Medical Necessity Statement*: Patient requires hospitalization for sepsis secondary to sacral ulcers, DTI's, left thigh DTI, UTI, requiring 6 weeks of IV antibiotics Coding Level of Care Code Acute Collar Stitcher for [facility] Fwd Diagnoses Sepsis A41.9 Rash and nonspecific skin eruption R21 Adrenal insufficiency E27.40 Stage IV pressure ulcer L89.94 Acute kidney injury N17.9 Alcohol intoxication F10.929 DVT prophylaxis Z29.9 Osteomyelitis of femur M86.9
[2021-06-10] MEDS: CLONazepam 0.5 mg Tablet 0.25 MG PO (14:11)
[2021-06-10] MEDS: lidocaine 1% 5 ML in potassium chloride premix 100 ML 25 ML IV (14:14)
[2021-06-10] MEDS: FUROsemide 10 mg/mL SDV 4mL 40 MG IVP (14:14)
[2021-06-10] MEDS: hyDROXYzine 25 mg Capsule PO ×2 (14:38→19:26)
--- NOTE | 2021-06-10 15:55 | PC.NURSE ---
Pt continues to scratch at chest and pulls telemetry leads off. Pt was educated on purpose of heart monitor.
[2021-06-10 17:05] LABS: Glucose Point of Care 101 mg/dL (70-110)
[2021-06-10 20:16] LABS: Glucose Point of Care 89 mg/dL (70-110)
[2021-06-10 23:37] LABS: HEP C RNA Viral Load Quant <1.18 NOT DETECTED Log IU/mL (NOT DETECTED); HEP C RNA Viral Load Quant <15 NOT DETECTED IU/mL (NOT DETECTED)
[2021-06-11] VITALS (14 sets, daily range): BP systolic 101–125; BP diastolic 63–85; PULSE 76–103; RESP 15–19; TEMP 36.4–36.9; O2SAT 92–98
[2021-06-11] MEDS: ondansetron 2 mg/ML SDV 2 mL 4 MG IVP ×3 (00:05→14:02)
[2021-06-11] MEDS: CLONazepam 0.5 mg Tablet 0.25 MG PO ×2 (00:05→18:26)
[2021-06-11] MEDS: midodrine 5 mg TABLET 10 MG PO ×4 (04:03→22:05)
[2021-06-11] MEDS: thiamine 100 mg Tablet PO (06:01)
[2021-06-11] MEDS: vancomycin 1,250 MG/250 ML PIGGYBACK 250 MG IV (06:01)
[2021-06-11] MEDS: levothyroxine 100 mcg Tablet 300 MCG PO (06:01)
[2021-06-11] MEDS: folic acid 1 mg Tablet PO (06:02)
[2021-06-11 06:06] LABS: Basophils # 0.1 10^3/uL (0.0-0.1); Basophils % 1.4 %; Eosinophils # 0.6 10^3/uL (0.0-0.8); Hemoglobin 9.5 g/dL (11.5-15.3); Lymphocytes % 22.6 %; Mean Corpuscular HGB Conc 30.6 g/dL (30.0-36.0); Mean Corpuscular Hemoglobin 28.2 pg (28.0-34.0); Mean Platelet Volume 9.4 fL (7.4-10.4); Monocytes # 0.8 10^3/uL (0.2-0.9); Monocytes % 9.5 %; Neutrophils # 5.07 10^3/uL (1.8-7.7); Neutrophils % 58.9 %; Nucleated Red Blood Cells % 0 %; Platelet Count 302 10^3/cmm (130-400); Red Blood Count 3.37 10^6/uL (4.1-5.3); Red Cell Distribution Width 16.6 % (12.1-15.1); White Blood Count 8.6 10^3/uL (4.0-10.0)
[2021-06-11 06:25] LABS: Glucose Point of Care 90 mg/dL (70-110)
[2021-06-11 06:38] LABS: Alanine Aminotransferase < 5 U/L (0-33); Albumin Level 3.3 g/dL (3.5-5.2); Alkaline Phosphatase 98 IU/L (35-105); Anion Gap 13.2 (5-19); Aspartate Amino Transferase 8 U/L (0-32); Blood Urea Nitrogen 5 mg/dL (6-20); C Reactive Protein 7.7 mg/L (0.0-4.9); Calcium 7.7 mg/dL (8.5-10.5); Carbon Dioxide 28 mmol/L (22-29); Chloride 107 mmol/L (98-107); Globulin 2.1 g/dL (1.3-4.6); Glomerular Filtration Rate 107.2 mL/min (90-130); Glucose 78 mg/dL (65-115); Magnesium 1.2 mg/dL (1.7-2.3); Osmolality Calculated 296 mOsm/kg (285-295); Phosphorus 2.6 mg/dL (2.5-4.5); Potassium 3.2 mmol/L (3.5-5.1); Sodium 145 mmol/L (136-145); Total Bilirubin 0.4 mg/dL (0.15-1.2); Total Protein 5.4 g/dL (6.6-8.7)
[2021-06-11 07:02] LABS: NT Pro B Type Natriuretic Pept 18778 pg/mL (0-125); Procalcitonin 0.08 ng/mL (0-0.5)
[2021-06-11] MEDS: ferrous gluconate 324 mg Tablet PO (07:49)
[2021-06-11] MEDS: gabapentin 100 mg Capsule 200 MG PO ×3 (07:49→20:00)
[2021-06-11] MEDS: hydrocortisone 10 mg Tablet 5 MG PO ×2 (07:49→16:16)
[2021-06-11] MEDS: fludrocortisone 0.1 mg Tablet PO (07:50)
[2021-06-11] MEDS: pantoprazole DR 40 mg Tablet PO (07:50)
[2021-06-11] MEDS: levETIRAcetam 500 mg Tablet 1000 MG PO ×2 (07:50→20:00)
[2021-06-11] MEDS: nystatin powder 15 gm Btl 1 APPLIC TOPICAL ×2 (07:51→16:23)
[2021-06-11] MEDS: fluticasone nasal spray 16gm Btl 1 SPRAY INTRANASAL ×2 (07:51→20:00)
[2021-06-11] MEDS: albuterol 8 gm MDI 2 PUFF INHALATION (09:36)
[2021-06-11 11:40] LABS: Glucose Point of Care 95 mg/dL (70-110)
--- NOTE | 2021-06-11 12:14 | CTR_ITS ---
PROCEDURE INFORMATION: Exam: CT Head Without And With Contrast Exam date and time: 06/11/2021 12:14 PM Age: 46 years old Clinical indication: Visual disturbance; Patient HX: Anisocoria TECHNIQUE: Imaging protocol: Computed tomography of the head without and with intravenous contrast. Radiation optimization: All CT scans at this facility use at least one of these dose optimization techniques: automated exposure control; mA and/or kV adjustment per patient size (includes targeted exams where dose is matched to clinical indication); or iterative reconstruction. Contrast material: OMNI 300; Contrast volume: 95 ml; Contrast route: INTRAVENOUS (IV); COMPARISON: CT head wo con* [id number] 03/11/2021 6:36 AM RADIATION DOSE METRICS: Total DLP (mGy-cm): 1318.28 FINDINGS: Brain: There is volume loss and periventricular low density compatible with chronic small vessel disease changes. There is no acute hemorrhage, edema or mass effect. There are small bifrontal benign hygromas. No enhancing abnormality is identified. Cerebral ventricles: The ventricles are diffusely mildly dilated compared to the prior exam. The transverse measurement of the 3rd ventricle is 12.5 mm today compared to 10 mm previously. The transverse measurement the body of the left lateral ventricle today is 1.8 cm compared to 1.6 cm previously. Temporal horns of the ventricles are also slightly more dilated. Paranasal sinuses: Visualized sinuses are unremarkable. No fluid levels. Mastoid air cells: Visualized mastoid air cells are well aerated. Bones/joints: Unremarkable. No acute fracture. Soft tissues: Unremarkable. CT/CT head wo/w con [id number] IMPRESSION: New mild diffuse hydrocephalus compared to the prior exam. Underlying chronic volume loss and small vessel disease changes are noted. Radiation Dose CTDIVOL = (mGy): DLP = 1318.28 (mGy-cm)
[2021-06-11] MEDS: iohexol 300 mg/mL 100 mL Btl IV (14:55)
[2021-06-11 15:03] LABS: Lipase 18 U/L (13-60)
[2021-06-11] MEDS: hyDROXYzine 25 mg Capsule PO (16:16)
[2021-06-11 17:02] LABS: Glucose Point of Care 99 mg/dL (70-110)
[2021-06-11] MEDS: metoclopramide 5 mg/mL SDV 2 mL IVP (19:59)
[2021-06-11] MEDS: magnesium sulfate premix 2 GM/50 ML PIGGYBACK IV (20:34)
[2021-06-11 20:56] LABS: Glucose Point of Care 136 mg/dL (70-110)
--- NOTE | 2021-06-11 21:38 | PM.PN ---
Subjective Subjective: Interval history: Reports was nauseated overnight with vomiting. Discussed with her consideration of bowel rest, however, during my visit was brought to [facility] by her son, and was wanting to try it as she was feeling better. No headache. Noticing mild inspiratory I discussed with her, she states she was told has had this for days, and reports has had diminished eyesight in her left eye ever since the hospitalization. Had to squint each eye to double check, confirming the left eye (smaller pupil) had worse vision. States also that the pupil has not been reactive, although on examination both pupils are directly and reciprocally reactive. In addition I again has been having discomfort in her right lower quadrant. This appears to have been a chronic recurrent issue in the past with multiple imaging studies done previously. She tells me all her blood studies have been drawn from the PICC line. Reports rash/leg erythema has been improving. Vitals/I&O/Wt Last Vital Signs Temp 98.4 F 06/11/21 19:18 Pulse 76 06/11/21 19:18 Resp 18 06/11/21 20:34 BP 125/85 06/11/21 19:18 Pulse Ox 96 06/11/21 19:18 06/11/21 06/11/21 06/11/21 06:59 14:59 22:59 Intake Total 200 / 1915 810 / 810 100 / 910 Output Total 250 / 2500 650 / 650 Balance -50 / -585 810 / 810 -550 / 260 Weight last 48 hrs Weight 87.543 kg Weight 87.543 kg Physical Exam Narrative: EXAM NARRATIVE: Visited by her son. Const: COMMON NORMALS: no acute distress, patient oriented x3 and alert GENERAL APPEARANCE: cooperative and comfortable NUTRITIONAL APPEARANCE: overweight ORIENTATION/CONSCIOUSNESS: Yes awake HENMT: COMMON NORMALS: oropharynx normal Eye: PUPIL: Yes Pupils anisocoria (Both reactive to light directly and reciprocally) right pupil size greater than left Neck/C-Spine: COMMON NORMALS: no JVD Resp: COMMON NORMALS: normal respiratory effort and clear to auscultation bilaterally AUSCULTATION: clear to auscultation bilaterally Cardio: COMMON NORMALS: no JVD, regular rhythm, S1 normal heart sound present, S2 normal heart sound present and No murmurs present (Cardio) RHYTHM: regular rhythm HEART SOUNDS: S1 normal heart sound present and S2 normal heart sound present GI: COMMON NORMALS: Normal to inspection, nondistended, normoactive bowel sounds present, Soft to palpation and non-tender PALPATION: Yes Soft to palpation Extremity: COMMON NORMALS: no joint enlargement and no pedal edema OTHER: R arm picc Neuro: COMMON NORMALS: patient oriented x3 and moves all extremities SENSORIUM/ORIENTATION: Yes alert Skin: LESIONS: lesion noted (Left heel shallow pressure ulceration with pink appearing base, no necr/mabel) WOUNDS: Yes wounds noted (L hip ) OTHER: Erythema, soft tissue swelling bilateral lower extremity, shallow desquamation without bullae, healing, dry scales. No impetigo. No purulent drainage. Excoriations noted bilaterally. Urinary Catheter Management^: Cosme: Cath Placed During This Visit: no Reason for Continuing Indwelling Catheter: Assist Healing of Perineal & Sacral Wounds- Incontinent Patients Data : 06/11/21 05:45 06/11/21 05:45 Micro: Microbiology 06/07/21 04:00 Blood Culture - Final Blood Enterococcus faecium vre Acinetobacter baumannii/haemol 06/07/21 04:05 Blood Culture - Final Blood Acinetobacter baumannii/haemol Enterococcus faecium vre A&P Assessment and plan (1) Bacteremia: Acinetobacter, Enterococcus, prescription with micro appears there may have been some contamination of endplate with one of the bottles, so numbers in terms of sats may not be accurate. Cultures are being repleted. So far repeat culture 06/09 -. Discussed with her and her son. On empiric antibiotics, although neither organism is susceptible to either antibiotic. These will need to be changed, however, do appreciate consultation with infectious disease with regards to recommendations and whether PICC line given recent placement can stay in for now given very difficult PIV access. Status: Acute (2) Anisocoria: Unclear timing of onset of this. Not a clear cause of this. She states she is had diminished vision ever since the beginning of this hospitalization. Pupils do appear to be reactive to light. Due to nausea as per discussion with her her son we obtained also CT of the head as there has been no prior head imaging to date. This appears to show appearance of mild diffuse hydrocephalus. Small bifrontal benign hygromas. At this time hold fludrocortisone which potentially can increase intracranial pressure. We will also hold further albumin infusions. Consider lumbar puncture. She is off anticoagulation, although will have to have access on the back not affected by her wounds. Status: Acute (3) Sepsis: Mall[facility] CT scan she has showed: -Posterior left upper thigh decubitus ulcer with associated inflammatory mass and changes in the adjacent femur compatible with osteomyelitis -The lumbar spine is stable in appearance compared to 10/02/2020. There are findings of degenerative spondylosis. The findings at L5-S1 could represent chronic disc space infection however there are no adjacent soft tissue changes and the appearance of this level has not changed since 10/02/2020. -MRI of the lumbar spine showed no secondary features suggestive of discitis or osteomyelitis Blood Culture: NTD Urine Culture: E. coli, Enterobacter cloacae sensitive to imipenem -Etiology, multifactorial, from bilateral lower extremity cellulitis, from thigh decubitus ulcer with osteomyelitis, bilateral heel sacral ulcers, UTI Status: Acute (4) Rash and nonspecific skin eruption: Diffuse Rash - nonspecific skin eruption, now flaking off Per patient improving. Punch biopsy obtained, pending. Had rash previously. Was thought to be associated possibly with Lasix, although low cross-reactivity with sulfa usually, but rash is back and she appears to again have been on Lasix. Avoid Lasix. Possible allergic reaction, continues to have diffuse maculopapular rash, pruritic Has features of dress syndrome, elevated eosinophils Possibilities also include toxic epidermal necrolysis versus Jim Bladimir syndrome versus dress syndrome Hepatitis C positive, PCR negative. Skin biopsy pending Status: Acute (5) Adrenal insufficiency: hydrocortisone. Hold Florinef. Monitor blood pressures. Midodrine 10 MG PO TID Status: Acute (6) Stage IV pressure ulcer: -Bilateral heels, left thigh -On hospital admission March 28, 2021, had debridement -Continue offloading, wound care, monitor closely Status: Acute (7) Acute kidney injury: Resolved. Hyponatremia Admission Serum Creatinine 0.9 Cautious IV hydration Cosme placed Has good urine output Status: Acute (8) Alcohol intoxication: Withdrawal protocol Status: Acute (9) DVT prophylaxis: Status: Acute (10) Osteomyelitis of femur: Status: Acute Additional A&P Information Hepatitis C antibody positive, HCV PCR negative. Heart failure preserved ejection fraction Type 2 diabetes mellitus Acute on chronic anemia secondary to history of GI bleed, hemoglobin now 9.5 status post 1 unit PRBC, Hemoccult stool, hold Eliquis History of COPD Hypothyroidism Eliquis on hold Attestations Medical Necessity Statement*: Continue admission for assessment management of bacteremia. Coding Level of Care Code Acute [employer] Operator for [facility] Fwd Diagnoses Bacteremia R78.81 Anisocoria H57.02 Sepsis A41.9 Rash and nonspecific skin eruption R21 Adrenal insufficiency E27.40 Stage IV pressure ulcer L89.94 Acute kidney injury N17.9 Alcohol intoxication F10.929 DVT prophylaxis Z29.9 Osteomyelitis of femur M86.9
--- NOTE | 2021-06-11 22:38 | PC.NURSE ---
Addendum entered by Lilli Collins RN 06/11/21 22:41: Pt reported that the tubing to her PICC and IV antibiotics was stuck under her blankets and got pulled resulting in PICC line being pulled out. Original Note: Pt noted to be yelling hurry, hurry, help me . Upon entering room pt right arm up in the air and PICC line 4 cm out of arm. Charge nurse in room to assist this RN. Dr. Smith on unit and made aware. Stated pull PICC. Pt continues to yell don't let me bleed to . Pt reoriented that she isn't bleeding and pressure is applied. Catheter tip in place. Site covered with sterile 4x4 and tegaderm. Call placed to dye house vat worker for ultrasound assisted IV needed.
[2021-06-12] VITALS (9 sets, daily range): BP systolic 105–127; BP diastolic 66–95; PULSE 78–110; RESP 16–21; TEMP 36.6–36.8; O2SAT 90–99
[2021-06-12] MEDS: midodrine 5 mg TABLET 10 MG PO ×3 (04:03→17:34)
[2021-06-12] MEDS: CLONazepam 0.5 mg Tablet 0.25 MG PO ×3 (04:19→23:06)
--- NOTE | 2021-06-12 04:41 | PC.NURSE ---
This RN flushed pt IV with 10 mL of NS. Line flushed without difficulty. Connected to primaxin. Pt begins yelling owe. That's infiltrated. Medication stopped. Skin felt soft and normal in color. Flushed with another 10 mL of NS without difficult. Pt continues to yell stop, stop, that hurts . This RN stopped. Charge nurse assessed IV and agreed with this caustic room attendant. Pt yelling take it out and nothing is going to fucking go through it . This RN explained no medication is running at this time and the importance of antibiotic therapy. Pt stated I don't care and you're not going to fucking touch it . Pt also stated they can do a PICC in the morning . This RN educated pt that while that is correct that does mean antibiotics are missed. Pt continue to yell at this RN. Dr. Smith made aware of pt wanting IV removed and refusing IV antibiotics. No new orders noted. Pt educated on clear liquid diet as well. Noreen kohli found under pt sheets in wrapper and patient drinking Dr. Alexander stating well you better tell the kitchen because that's what they sent me and I'm nauseated but you all haven't done a fucking thing about it. Why can't you be nice and do something .
[2021-06-12 05:43] LABS: Basophils # 0.1 10^3/uL (0.0-0.1); Basophils % 1.6 %; Eosinophils # 0.6 10^3/uL (0.0-0.8); Eosinophils % 9.9 %; Hematocrit 29.4 % (37.0-47.0); Hemoglobin 9.1 g/dL (11.5-15.3); Lymphocytes # 1.6 10^3/uL (0.8-4.8); Lymphocytes % 28.9 %; Mean Corpuscular Hemoglobin 28.3 pg (28.0-34.0); Mean Corpuscular Volume 91.3 fl (81-99); Mean Platelet Volume 9.5 fL (7.4-10.4); Monocytes # 0.6 10^3/uL (0.2-0.9); Monocytes % 10.2 %; Neutrophils # 2.77 10^3/uL (1.8-7.7); Neutrophils % 48.9 %; Nucleated Red Blood Cells % 0 %; Platelet Count 309 10^3/cmm (130-400); Red Blood Count 3.22 10^6/uL (4.1-5.3); Red Cell Distribution Width 16.8 % (12.1-15.1); White Blood Count 5.7 10^3/uL (4.0-10.0)
[2021-06-12] MEDS: folic acid 1 mg Tablet PO (06:20)
[2021-06-12] MEDS: levothyroxine 100 mcg Tablet 300 MCG PO (06:20)
[2021-06-12] MEDS: thiamine 100 mg Tablet PO (06:20)
[2021-06-12 06:29] LABS: Alanine Aminotransferase < 5 U/L (0-33); Albumin Level 3.1 g/dL (3.5-5.2); Alkaline Phosphatase 89 IU/L (35-105); Anion Gap 10.8 (5-19); Aspartate Amino Transferase 8 U/L (0-32); Blood Urea Nitrogen 4 mg/dL (6-20); Calcium 7.7 mg/dL (8.5-10.5); Carbon Dioxide 29 mmol/L (22-29); Chloride 111 mmol/L (98-107); Globulin 2.1 g/dL (1.3-4.6); Glomerular Filtration Rate 132.2 mL/min (90-130); Glucose 82 mg/dL (65-115); Magnesium 1.7 mg/dL (1.7-2.3); Osmolality Calculated 302 mOsm/kg (285-295); Sodium 148 mmol/L (136-145); Total Bilirubin 0.4 mg/dL (0.15-1.2); Total Protein 5.2 g/dL (6.6-8.7)
[2021-06-12 06:36] LABS: Glucose Point of Care 84 mg/dL (70-110)
[2021-06-12 06:39] LABS: Potassium 2.8 mmol/L (3.5-5.1)
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
[2021-06-12] MEDS: ferrous gluconate 324 mg Tablet PO (09:09)
[2021-06-12] MEDS: gabapentin 100 mg Capsule 200 MG PO ×3 (09:10→20:15)
[2021-06-12] MEDS: potassium chloride ER 20 mEq Tablet 40 MEQ PO (09:10)
[2021-06-12] MEDS: fluticasone nasal spray 16gm Btl 1 SPRAY INTRANASAL ×2 (09:10→21:09)
[2021-06-12] MEDS: levETIRAcetam 500 mg Tablet 1000 MG PO ×2 (09:11→20:17)
[2021-06-12] MEDS: pantoprazole DR 40 mg Tablet PO (09:11)
[2021-06-12] MEDS: hydrocortisone 10 mg Tablet 5 MG PO ×2 (09:11→17:34)
[2021-06-12] MEDS: nystatin powder 15 gm Btl 1 APPLIC TOPICAL ×2 (09:15→17:35)
--- NOTE | 2021-06-12 10:11 | PC.CHAP ---
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 convenience recycle center tech visit [] Patient/Family/Request visit [] Outpatient visit [] Follow-up visit [] Physician referral [] Code/Alert [x] Routine visit [] Staff referral [] Actively dying [] Patient sleeping [] Family support [] [] Out of room [] Palliative care [] [] Receiving care in room [] Pre-surgical visit [] Trauma [] Long length of stay [] ICU visit [] Other: Relational/Emotional Strength [] Patient feels connected with others/family/visitors/staff [] Distress [] Loneliness/isolation [] Abandonment Spirituality of Patient [x] Person of Angy [] Attends Religious of their Angy [] Believes in Prayer [] Reads Bible or Hoahaoism materials [] There are Spiritual issues to be addressed [employer] Interventions [x] Prayer [] Active listening [] Non-anxious presence [] Spiritual/emotional support [] Crisis/trauma care [] Spiritual counseling [] Bereavement support [] Provided bereavement packet [] Provided Bible/devotional materials [] Provided toy/stuffed animal, coloring book to patient or family member [] Provided Communion [] Anointing/[place] [] Salvation [x] Completed spiritual assessment [] Other: Impact on Illness or Injury [] Angry [] Fearful [] Anxious [] Often cries [] Exhaustion [] Unable to work [] Unable to attend adventism [] Unable to walk/stand [] Unable to read [] Unable to drive [] Unable to eat/drink [] Unable to sleep [] Unable to be with family [] Patient intubated [] Other: Summary Time spent with patient 10 min
[2021-06-12] MEDS: albuterol 8 gm MDI 2 PUFF INHALATION (10:44)
[2021-06-12 11:30] LABS: Glucose Point of Care 93 mg/dL (70-110)
--- NOTE | 2021-06-12 12:58 | PC.SOCIAL ---
IMM Update pg 2 of IMM updated and reviewed w/ patient. Copy provided.
--- NOTE | 2021-06-12 13:16 | PM.PN ---
Subjective Subjective: Interval history: Lost PICC line access overnight, states accidentally got pulled out when she wrapped herself in a blanket. She has been itching, continues to scratch her skin and pick at loose/dry skin flakes. Denies headache. Eating well today. Request to advance diet from liquid to solids. Denies any more nausea or vomiting. Denies any additional changes in vision. Vitals/I&O/Wt Last Vital Signs Temp 98.3 F 06/12/21 11:09 Pulse 102 H 06/12/21 11:09 Resp 20 H 06/12/21 11:09 BP 120/95 06/12/21 11:09 Pulse Ox 90 06/12/21 11:09 06/11/21 06/12/21 06/12/21 22:59 06:59 14:59 Intake Total 250 / 1060 240 / 1300 300 / 300 Output Total 650 / 650 300 / 950 Balance -400 / 410 -60 / 350 300 / 300 Weight last 48 hrs Weight 87.543 kg Physical Exam Const: COMMON NORMALS: no acute distress, patient oriented x3 and alert GENERAL APPEARANCE: cooperative and comfortable NUTRITIONAL APPEARANCE: overweight ORIENTATION/CONSCIOUSNESS: Yes awake HENMT: COMMON NORMALS: oropharynx normal Eye: PUPIL: Yes Pupils anisocoria (Both reactive to light directly and reciprocally) right pupil size greater than left Neck/C-Spine: COMMON NORMALS: no JVD Resp: COMMON NORMALS: normal respiratory effort and clear to auscultation bilaterally AUSCULTATION: clear to auscultation bilaterally Cardio: COMMON NORMALS: no JVD, regular rhythm, S1 normal heart sound present, S2 normal heart sound present and No murmurs present (Cardio) RHYTHM: regular rhythm HEART SOUNDS: S1 normal heart sound present and S2 normal heart sound present GI: COMMON NORMALS: Normal to inspection, nondistended, normoactive bowel sounds present, Soft to palpation and non-tender PALPATION: Yes Soft to palpation Extremity: COMMON NORMALS: no joint enlargement and no pedal edema OTHER: R arm picc gone Neuro: COMMON NORMALS: patient oriented x3 and moves all extremities SENSORIUM/ORIENTATION: Yes alert Skin: LESIONS: lesion noted (Left heel shallow pressure ulceration with pink appearing base, no necr/mabel) WOUNDS: Yes wounds noted (L hip ) OTHER: Erythema, soft tissue swelling bilateral lower extremity, shallow desquamation without bullae, healing, dry scales. No impetigo. No purulent drainage. Excoriations noted bilaterally. Urinary Catheter Management^: Cosme: Cath Placed During This Visit: no Reason for Continuing Indwelling Catheter: Assist Healing of Perineal & Sacral Wounds- Incontinent Patients Data : 06/12/21 05:20 06/12/21 05:20 Micro: Microbiology 06/07/21 04:00 Blood Culture - Final Blood Enterococcus faecium vre Acinetobacter baumannii/haemol 06/07/21 04:05 Blood Culture - Final Blood Acinetobacter baumannii/haemol Enterococcus faecium vre A&P Assessment and plan (1) Bacteremia: Pulled out PICC line inadvertently overnight. We do not have to worry about consideration of removing the PICC currently, however, does not have IV access. PIV insertion offered several times with ultrasound, but declines. PICC line replacement requested, but unable to complete today. For now transitioned antibiotic to linezolid, however, pending additional IV access does not have antibiotic coverage currently for Acinetobacter. Repeat blood cultures negative so far from 06/09. Greatly appreciate ID assessment. Acinetobacter, Enterococcus, prescription with micro appears there may have been some contamination of endplate with one of the bottles, so numbers in terms of sats may not be accurate. Cultures from 06/07 were replated. Status: Acute (2) Anisocoria: Requested additional evaluation by ophthalmology given bacteremia. Appreciate consultation and looking forward to assessment findings. Discussed findings of possible hydrocephalus with our radiologist. On review of prior images this appears to be a somewhat gradual process, and not impressive for obstructive hydrocephalus. Again no high-grade obstruction on MRI to suggest cord compression in the lumbar spine. Suspected more likely ex vacuo process. Today symptomatically also she is doing much better, no nausea or vomiting, no headache, or other progression of symptoms, and he is requesting to advance to solid diet. Discussed with her consideration of LP, although does have excoriations on her back from scratching. No overt cellulitis, but may be high risk for infection with transdermal transit. Without other meningeal signs. As hydrocephalus also possibly more likely ex vacuo, for now held off on lumbar puncture, but may have to pursue in case there are changes for the worse. Continue to hold fludrocortisone and albumin infusions. She has not been wanting to go back to MRI given she had a very miserable experience there with her lumbar scan. Unclear timing of onset of anisocoria. Not a clear cause of this. She states she is had diminished vision ever since the beginning of this hospitalization. Pupils do appear to be reactive to light. Status: Acute (3) Hydrocephalus: Discussed findings of possible hydrocephalus with our radiologist. On review of prior images this appears to be a somewhat gradual process, and not impressive for obstructive hydrocephalus. Again no high-grade obstruction on MRI to suggest cord compression in the lumbar spine. Suspected more likely ex vacuo process with atrophy advanced for age. Perhaps relating to alcohol use disorder. Small bifrontal benign hygromas. Status: Acute (4) Sepsis: Pending additional IV access. For now switched to linezolid. Unknown organism in osteomyelitis. Completed short course with Primaxin for urinary tract infection. Mall[place] CT scan she has showed: -Posterior left upper thigh decubitus ulcer with associated inflammatory mass and changes in the adjacent femur compatible with osteomyelitis -The lumbar spine is stable in appearance compared to 10/02/2020. There are findings of degenerative spondylosis. The findings at L5-S1 could represent chronic disc space infection however there are no adjacent soft tissue changes and the appearance of this level has not changed since 10/02/2020. -MRI of the lumbar spine showed no secondary features suggestive of discitis or osteomyelitis Blood Culture: NTD Urine Culture: E. coli, Enterobacter cloacae sensitive to imipenem -Etiology, multifactorial, from bilateral lower extremity cellulitis, from thigh decubitus ulcer with osteomyelitis, bilateral heel sacral ulcers, UTI Status: Acute (5) Rash and nonspecific skin eruption: Diffuse Rash - nonspecific skin eruption, now flaking off. Pruritic. She request for Benadryl. States it works better for her than Vistaril. Per patient improving. Punch biopsy obtained, pending. Blood pressure is good. Hold midodrine which can also cause pruritus. Had rash previously. Was thought to be associated possibly with Lasix, although low cross-reactivity with sulfa usually, but rash is back and she appears to again have been on Lasix. Avoid Lasix. Possible allergic reaction, continues to have diffuse maculopapular rash, pruritic Has features of dress syndrome, elevated eosinophils Possibilities also include toxic epidermal necrolysis versus Jim Bladimir syndrome versus dress syndrome Hepatitis C positive, PCR negative. Skin biopsy pending Status: Acute (6) Adrenal insufficiency: hydrocortisone. Hold Florinef. Monitor blood pressures. Currently blood pressure is good, on midodrine which can also cause pruritus. Status: Acute (7) Stage IV pressure ulcer: -Bilateral heels, left thigh -On hospital admission March 28, 2021, had debridement -Continue offloading, wound care, monitor closely Status: Acute (8) Acute kidney injury: Resolved. Hyponatremia resolved Admission Serum Creatinine 0.9 Cautious IV hydration stopped Cosme Has good urine output Status: Acute (9) Alcohol intoxication: Currently not in withdrawal Status: Acute (10) DVT prophylaxis: Status: Acute (11) Osteomyelitis of femur: Status: Acute Additional A&P Information Hypokalemia: Replace Hypomagnesemia: Replaced Attestations Medical Necessity Statement*: Continue admission for assessment of management of bacteremia, obtaining IV access, continue treatment of pressure wounds, osteomyelitis, assessment of anisocoria, additional comorbidities as above. Coding Level of Care Code Acute Health Program Analyst for [facility] Fwd Exam Comprehensive Diagnoses Bacteremia R78.81 Anisocoria H57.02 Hydrocephalus G91.9 Sepsis A41.9 Rash and nonspecific skin eruption R21 Adrenal insufficiency E27.40 Stage IV pressure ulcer L89.94 Acute kidney injury N17.9 Alcohol intoxication F10.929 DVT prophylaxis Z29.9 Osteomyelitis of femur M86.9
[2021-06-12] MEDS: hyDROXYzine 25 mg Capsule PO (13:29)
[2021-06-12 17:10] LABS: Glucose Point of Care 84 mg/dL (70-110)
[2021-06-12] MEDS: linezolid 600 mg Tablet PO (17:33)
[2021-06-12] MEDS: tizanidine 4 mg Tablet 2 MG PO (20:15)
[2021-06-12 20:58] LABS: Glucose Point of Care 154 mg/dL (70-110)
[2021-06-12] MEDS: insulin lispro 100 unit/1 mL SUBCUT (21:09)
[2021-06-12] MEDS: diphenhydrAMINE 25 mg Capsule PO (23:08)
[2021-06-13] VITALS (9 sets, daily range): BP systolic 96–135; BP diastolic 65–87; PULSE 71–107; RESP 16–20; TEMP 36.5–36.8; O2SAT 90–97
[2021-06-13] MEDS: diphenhydrAMINE 25 mg Capsule PO (04:06)
[2021-06-13] MEDS: linezolid 600 mg Tablet PO ×2 (05:13→17:48)
[2021-06-13] MEDS: levothyroxine 100 mcg Tablet 300 MCG PO (05:13)
[2021-06-13 07:13] LABS: Glucose Point of Care 99 mg/dL (70-110)
[2021-06-13] MEDS: albuterol 8 gm MDI 2 PUFF INHALATION (07:43)
[2021-06-13] MEDS: fluticasone nasal spray 16gm Btl 1 SPRAY INTRANASAL ×2 (07:45→20:10)
[2021-06-13] MEDS: hydrocortisone 10 mg Tablet 5 MG PO ×2 (07:45→17:48)
[2021-06-13] MEDS: levETIRAcetam 500 mg Tablet 1000 MG PO ×2 (07:45→20:10)
[2021-06-13] MEDS: pantoprazole DR 40 mg Tablet PO (07:45)
[2021-06-13] MEDS: gabapentin 100 mg Capsule 200 MG PO ×3 (07:45→20:10)
--- NOTE | 2021-06-13 08:00 | P.PN_ITS ---
Subjective Subjective: Interval history: Infectious disease progress note interim events noted, Picc line unable to be placed again hemodynamically stable, afberile, no new complaints except for known chronic pain over hip and back Medications: Reviewed: Yes Vitals/I&O/Wt Last Vital Signs Temp 98.0 F 06/15/21 15:56 Pulse 67 06/15/21 15:56 Resp 17 06/15/21 18:29 BP 133/89 06/15/21 15:56 Pulse Ox 94 06/15/21 15:56 06/15/21 06/15/21 06/15/21 06:59 14:59 22:59 Intake Total 500 / 2980 580 / 580 340 / 920 Output Total 50 / 50 200 / 250 Balance 500 / 2579 530 / 530 140 / 670 Weight last 48 hrs Weight 90.31 kg Weight 90.01 kg Physical Exam Narrative: EXAM NARRATIVE: GEN: Awake, alert and oriented, no acute distress CVS: S1S2 N RS: CTA B/L Abd: Soft, nt/nd , bs+ FIRE REGULATOR: no focal neuro deficits EXT: residual rash over B/L LE, reportedly much improved compared to admission per patient. Urinary Catheter Management^: Cosme: Cath Placed During This Visit: no Reason for Continuing Indwelling Catheter: Acute Urinary Retention or Obstruction Data : 06/15/21 05:13 06/15/21 05:13 Micro: Microbiology 06/14/21 09:45 Gram Stain - Final Leg - #1 Tissue Culture - Preliminary A&P Assessment and plan (1) Bacteremia: Status: Acute (2) Osteomyelitis of femur: Status: Acute Qualifiers: Osteomyelitis type: other chronic Laterality: unspecified laterality Qualified Code(s): M86.659 - Other chronic osteomyelitis, unspecified thigh (3) Rash and nonspecific skin eruption: Status: Acute (4) Adrenal insufficiency: Status: Acute Additional A&P Information Patient presenting with HPI as above. Concern for septic shock upon admission. Infectious w/up notable for + UA and urine cx, transient bacteremia with Acinetobacter and VRE and osteomyelitis of femur on imaging. # Bacteremia with Acenitobacter baumanii and VRE fecium Blood cx negative on admission, + 06/07 (2 of 4 bottles?? ), then clear on 06/09 serial check. Picc line accidentally pulled out by patient 06/12 no clear source of bacteremia appears evident at this time May represent contamination, however with 2 organisms (one GPC and one GNR), one of which is Acinetobacter, hesitant to dismiss as just contaminated culture. Recommend to treat for transient bacteremia for 2 weeks from clearance (06/09- 06/22). Isolate of acinetobacter appears resistant to multiple abx incl cefepime, CTX, FQs, tetracycline. Imipenem SUNG 4. Meropenem SUNG, polymixin susceptibilities unable to be ontained at lab- requested send out. Given sustained clinical improvement on current regimen of imipenem and linezolid, recommend to continue the same for now. Patient does not currently have any leukocytosis, afberile during admission except on 06/06 tmax 99.9F. UA and urine cx + for E.coli and Enterobacter cloacae, adequately covered with imipenem. Overall suspect that hypotension on admission may have been related to adrenal insufficiency and improved quickly after addition of Florinef and midodrine. # osteomyelitis of femur in setting of open pressure ulcer : Patient unable to tell me how long she has had this pressure ulcer. recommend bone biopsy with culture to guide further treatment # Diffuse rash at presentation. Differentials included SJS vs DRESS at presentation, pending skin biopsy Will follow Attestations Medical Necessity Statement*: per admitting, need for iv abx Coding Level of Care Code Acute Orthodontist Vice President for [facility] Diagnoses Bacteremia R78.81 Osteomyelitis of femur M86.659 Osteomyelitis type: other chronic Laterality: unspecified laterality Rash and nonspecific skin eruption R21 Adrenal insufficiency E27.40
--- NOTE | 2021-06-13 09:10 | SUR.PREOP ---
TIME OUT FOR PICC LINE INSERTION.
--- NOTE | 2021-06-13 09:11 | SUR.PREOP ---
PICC ATTEMPT NOTE Patient consented and procedure began per usual steril fashion. 2 attempts made at picc access from the right approach but were unsuccessful. 1st attempt made at upper bascilic access as this was the best presentation for access but resistance met with needle and wire access- removed as a whole and pressure held at site. 2nd attempt made at upper median cubital vein. Vessel dilated but unable to advance the catheter through the dilator. The patient was not upset but very tearful with any manipulation or attempt at advancement out of the dilator. Sheathing system and catheter removed as a whole and pressure held at site until hemostasis obtained. Disscussion with the patient about whether to proceed at this point. Decision to cancel the line now made. Report called to the floor. Patient returned via wheelchair. Report off to Emily BARRETT.
--- NOTE | 2021-06-13 11:06 | PC.CHAP ---
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 service desk team lead visit [] Patient/Family/Request visit [] Outpatient visit [] Follow-up visit [] Physician referral [] Code/Alert [x] Routine visit [] Staff referral [] Actively dying [] Patient sleeping [] Family support [] [] Out of room [] Palliative care [] [] Receiving care in room [] Pre-surgical visit [] Trauma [] Long length of stay [] ICU visit [] Other: Relational/Emotional Strength [x] Patient feels connected with others/family/visitors/staff [] Distress [] Loneliness/isolation [] Abandonment Spirituality of Patient [x] Person of Angy [x] Attends Jain of their Nagy [x] Believes in Prayer [x] Reads Bible or Faith materials [] There are Spiritual issues to be addressed Induction Furnace Operator Interventions [x] Prayer [x] Active listening [] Non-anxious presence [x] Spiritual/emotional support [] Crisis/trauma care [x] Spiritual counseling [] Bereavement support [] Provided bereavement packet [] Provided Bible/devotional materials [] Provided toy/stuffed animal, coloring book to patient or family member [] Provided Communion [] Anointing/Atlas [] Salvation [] Completed spiritual assessment [] Other: Impact on Illness or Injury [] Angry [x] Fearful [] Anxious [] Often cries [] Exhaustion [] Unable to work [] Unable to attend orthodoxy [] Unable to walk/stand [] Unable to read [] Unable to drive [] Unable to eat/drink [] Unable to sleep [] Unable to be with family [] Patient intubated [] Other: Summary I've known this woman for many years, but never met her until today. She has been a cancer patient for several years, and today said she doesn't want to alone. I suggested maybe her could be with her at that time, but she thought he may not be strong enough to do so. She was a close friend to Jessica Nuñez, who once worked for [employer]. Her angy seems strong in the Lord, and said her soul is ready. A good woman. Time spent with patient 15 minutes.
[2021-06-13 11:56] LABS: Glucose Point of Care 120 mg/dL (70-110)
[2021-06-13] MEDS: CLONazepam 0.5 mg Tablet 0.25 MG PO (12:04)
--- NOTE | 2021-06-13 13:20 | PM.PN ---
Subjective Subjective: Interval history: Difficulties with getting IV access today. PICC line attempted today, but could not be placed. In pain. She declined further attempts. Multiple times peripherally, attempt by anesthesia obtain access in left antecubital fossa, but lost shortly after. Discussed with her consideration of additional steps, consideration of placement of central line, possibly with anesthesia as she is in quite a bit of pain with peripheral attempts and PICC line attempted. Discussed with her situation with resistant organisms including Acinetobacter, as well as Enterococcus, for Enterococcus we are continue linezolid, however, need additional coverage for Acinetobacter. Discussed additionally osteomyelitis which so far we do not have a causative organism known. Discussed consideration of obtaining bone biopsy to further diagnose organism causing the osteomyelitis to allow to target with antibiotic, especially given we are dealing with resistant organisms with difficulties with coverage and access. She verbalized understanding, agreement to pursue additional IV access, bone biopsy. She otherwise has walked with physical therapy. Was struggling, but pushed herself to persist and accomplish 70 feet. Request to increase her pain medication to every 4 hours scheduled. Vitals/I&O/Wt Last Vital Signs Temp 97.9 F 06/13/21 11:38 Pulse 86 06/13/21 11:38 Resp 16 06/13/21 11:38 BP 117/79 06/13/21 11:38 Pulse Ox 90 06/13/21 11:38 06/12/21 06/13/21 06/13/21 22:59 06:59 14:59 Intake Total 200 / 950 20 / 20 Output Total 325 / 325 300 / 625 Balance -125 / 625 -300 / 325 20 / 20 Physical Exam Const: COMMON NORMALS: no acute distress, patient oriented x3 and alert GENERAL APPEARANCE: cooperative and comfortable NUTRITIONAL APPEARANCE: overweight ORIENTATION/CONSCIOUSNESS: Yes awake HENMT: COMMON NORMALS: oropharynx normal Eye: PUPIL: Yes Pupils anisocoria (Both reactive to light directly and reciprocally. Reactive to accommodation) right pupil size greater than left Neck/C-Spine: COMMON NORMALS: no JVD Resp: COMMON NORMALS: normal respiratory effort and clear to auscultation bilaterally AUSCULTATION: clear to auscultation bilaterally Cardio: COMMON NORMALS: no JVD, regular rhythm, S1 normal heart sound present, S2 normal heart sound present and No murmurs present (Cardio) RHYTHM: regular rhythm HEART SOUNDS: S1 normal heart sound present and S2 normal heart sound present GI: COMMON NORMALS: Normal to inspection, nondistended, normoactive bowel sounds present, Soft to palpation and non-tender PALPATION: Yes Soft to palpation Extremity: COMMON NORMALS: no joint enlargement and no pedal edema Neuro: COMMON NORMALS: patient oriented x3 and moves all extremities SENSORIUM/ORIENTATION: Yes alert Skin: LESIONS: lesion noted (Left heel shallow pressure ulceration with pink appearing base, no necr/mabel) WOUNDS: Yes wounds noted (Wounds l heel, thigh, sacrum ) OTHER: Erythema, sig improving. Soft tissue swelling bilateral lower extremity subsiding, shallow desquamation without bullae, healing, dry scales. No impetigo. No purulent drainage. Excoriations noted bilaterally. Urinary Catheter Management^: Cosme: Cath Placed During This Visit: no Reason for Continuing Indwelling Catheter: Assist Healing of Perineal & Sacral Wounds- Incontinent Patients Data : 06/12/21 05:20 06/12/21 05:20 A&P Assessment and plan (1) Bacteremia: Unfortunately additional attempted PICC line placement today unsuccessful. Empirically had PIV placed after multiple tries by anesthesia, but it stopped working soon after. Discussed with ID, appreciate recommendations. Needs continued IV antibiotic for coverage for Acinetobacter, which is also made difficult due to resistance to multiple organisms. Intermediate sensitivity to Primaxin, and so far has been improving, so for now this would be the antibiotic of choice for coverage. Otherwise continues with linezolid coverage for Enterococcus as well. Unsuccessful multiple attempts at peripheral IV placement after unsuccessful PICC line attempt earlier today. Discussed with her, discussed with surgery, appreciate placement of central line, which likely require anesthesia given pain intolerance. As per discussion with ID, if possible would be extremely helpful to obtain bone biopsy from osteomyelitis site to further target antibiotic therapy especially given different organisms, resistance patterns as well as difficulties with peripheral access. Appreciate surgery assistance with this as well. Status: Acute (2) Anisocoria: Requested additional evaluation by ophthalmology given bacteremia. Appreciate consultation and looking forward to assessment findings. Discussed findings of possible hydrocephalus with our radiologist. On review of prior images this appears to be a somewhat gradual process, and not impressive for obstructive hydrocephalus. Again no high-grade obstruction on MRI to suggest cord compression in the lumbar spine. Suspected more likely ex vacuo process. Today symptomatically also she is doing much better, no nausea or vomiting, no headache, or other progression of symptoms, and he is requesting to advance to solid diet. Discussed with her consideration of LP, although does have excoriations on her back from scratching. No overt cellulitis, but may be high risk for infection with transdermal transit. Without other meningeal signs. As hydrocephalus also possibly more likely ex vacuo, for now held off on lumbar puncture, but may have to pursue in case there are changes for the worse. Continue to hold fludrocortisone and albumin infusions. She has not been wanting to go back to MRI given she had a very miserable experience there with her lumbar scan. Unclear timing of onset of anisocoria. Not a clear cause of this. She states she is had diminished vision ever since the beginning of this hospitalization. Pupils do appear to be reactive to light. Status: Acute (3) Hydrocephalus: Discussed findings of possible hydrocephalus with our radiologist. On review of prior images this appears to be a somewhat gradual process, and not impressive for obstructive hydrocephalus. Again no high-grade obstruction on MRI to suggest cord compression in the lumbar spine. Suspected more likely ex vacuo process with atrophy advanced for age. Perhaps relating to alcohol use disorder. Small bifrontal benign hygromas. Status: Acute (4) Sepsis: Pending additional IV access. For now switched to linezolid. Unknown organism in osteomyelitis. Completed short course with Primaxin for urinary tract infection. [place] CT scan she has showed: -Posterior left upper thigh decubitus ulcer with associated inflammatory mass and changes in the adjacent femur compatible with osteomyelitis -The lumbar spine is stable in appearance compared to 10/02/2020. There are findings of degenerative spondylosis. The findings at L5-S1 could represent chronic disc space infection however there are no adjacent soft tissue changes and the appearance of this level has not changed since 10/02/2020. -MRI of the lumbar spine showed no secondary features suggestive of discitis or osteomyelitis Blood Culture: NTD Urine Culture: E. coli, Enterobacter cloacae sensitive to imipenem -Etiology, multifactorial, from bilateral lower extremity cellulitis, from thigh decubitus ulcer with osteomyelitis, bilateral heel sacral ulcers, UTI Status: Acute (5) Rash and nonspecific skin eruption: Improving. Have held midodrine, and also have been avoiding Lasix, and rash appears to be resolving. Not sure which of these agents may been contributing, but added both to adverse reaction list, as these rashes appear to be recurrent, and she appears to frequently inadvertently again end up on these medications. Skin punch biopsy unremarkable/unrevealing. Diffuse Rash - nonspecific skin eruption, now flaking off. Pruritic. She request for Benadryl. States it works better for her than Vistaril. Blood pressure is good. Hold midodrine which can also cause pruritus. Had rash previously. Was thought to be associated possibly with Lasix, although low cross-reactivity with sulfa usually, but rash is back and she appears to again have been on Lasix. Avoid Lasix. Possible allergic reaction, continues to have diffuse maculopapular rash, pruritic Has features of dress syndrome, elevated eosinophils Possibilities also include toxic epidermal necrolysis versus Jim Bladimir syndrome versus dress syndrome Hepatitis C positive, PCR negative. Status: Acute (6) Adrenal insufficiency: hydrocortisone. Hold Florinef. Monitor blood pressures. Currently blood pressure is good, midodrine stopped as can also cause pruritus. Status: Acute (7) Stage IV pressure ulcer: -Bilateral heels, left thigh -On hospital admission March 28, 2021, had debridement -Continue offloading, wound care, monitor closely Status: Acute (8) Acute kidney injury: Resolved. Hyponatremia resolved Admission Serum Creatinine 0.9 Cautious IV hydration stopped Carmelina Has good urine output Status: Acute (9) Alcohol intoxication: Currently not in withdrawal Discussed with her to avoid any alcohol. She verbalized understanding and agreement. Status: Acute (10) DVT prophylaxis: Status: Acute (11) Osteomyelitis of femur: Status: Acute Additional A&P Information Hypokalemia: Replace Hypomagnesemia: Replaced Attestations Medical Necessity Statement*: Continue admission for assessment of management of bacteremia with several resistant organisms, with difficulties with IV access. 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
[2021-06-13 16:37] LABS: Glucose Point of Care 112 mg/dL (70-110)
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
[2021-06-13] MEDS: ferrous gluconate 324 mg Tablet PO (20:10)
[2021-06-13 20:15] LABS: Glucose Point of Care 137 mg/dL (70-110)
--- NOTE | 2021-06-13 20:40 | PC.NURSE ---
i reported high pulse 107 to nurse
--- NOTE | 2021-06-13 20:59 | USCV_ITS ---
Delores Mckeon Age: 46 Gender: F : 1975 Exam Date: 06/13/2021 06:45 Ordering Phys: Herminio Ovalle MD Technologist: Maryana Pimentel Exam Location: [facility] [place] Indication: ANISOCORIA Risk Factors: Previous Vascular Surgery: Right Brachial BP: / Left Brachial BP: / Right Left Velocity (cm/s) Spectral Plaque Velocity (cm/s) Spectral Plaque Syst/Diast Broadening Syst/Diast Broadening 110.30/30.90 Prox CCA 123.50/ 24.30 53.00/ 20.50 Mid CCA 69.10 / 12.40 55.50/ 13.70 Distal CCA 55.20 / 17.10 39.60/ 12.00 Prox ICA 36.50 / 16.30 47.50/ 15.10 Mid ICA 66.80 / 19.40 53.70/ 21.90 Distal ICA 77.70 / 19.40 42.80 ECA 83.10 0.49 ICA/CCA 0.63 Antegrade Vertebral Antegrade 25.60/ 17.10 cm/s 71.50/ 31.80 cm/s Tri Subclavian Tri 118.0 69.10 0 FINDINGS Comparison: none available. No significant elevation of systolic or diastolic velocities. No significant amount of calcified plaque or intimal thickening identified. Waveforms are normal. CONCLUSIONS Normal carotid doppler ultrasound. Dr. Kassie Darnell DO (Electronically Signed) Final Date: 13 June 2021 07:58 S
[2021-06-13] MEDS: tizanidine 4 mg Tablet 2 MG PO (22:21)
[2021-06-14] VITALS (24 sets, daily range): BP systolic 94–132; BP diastolic 59–88; PULSE 72–104; RESP 16–28; TEMP 36.2–37; O2SAT 90–100
--- NOTE | 2021-06-14 | SCC_ITS ---
Procedure Done: 1. Right internal jugular triple-lumen catheter placement utilizing intraoperative ultrasound with intraoperative fluoroscopy interpretation. 2. Left femur bone biopsy via open wound. 2 seconds of fluoroscopic guidance, for a cumulative dose of 1.4 mGy, was provided to Dr. Clements by the radiology department. C-arm images of the chest were saved for the patient's permanent record. VICENTE
[2021-06-14] MEDS: CLONazepam 0.5 mg Tablet 0.25 MG PO ×2 (02:45→17:20)
[2021-06-14 03:15] LABS: Basophils # 0.1 10^3/uL (0.0-0.1); Basophils % 2.1 %; Eosinophils # 0.5 10^3/uL (0.0-0.8); Eosinophils % 10.9 %; Hematocrit 33.2 % (37.0-47.0); Hemoglobin 9.5 g/dL (11.5-15.3); Lymphocytes # 1.4 10^3/uL (0.8-4.8); Lymphocytes % 28.5 %; Mean Corpuscular HGB Conc 28.6 g/dL (30.0-36.0); Mean Corpuscular Hemoglobin 27.7 pg (28.0-34.0); Mean Corpuscular Volume 96.8 fl (81-99); Monocytes # 0.5 10^3/uL (0.2-0.9); Monocytes % 9.5 %; Neutrophils # 2.37 10^3/uL (1.8-7.7); Neutrophils % 48.8 %; Nucleated Red Blood Cells % 0 %; Platelet Count 250 10^3/cmm (130-400); Red Blood Count 3.43 10^6/uL (4.1-5.3); Red Cell Distribution Width 17.9 % (12.1-15.1); White Blood Count 4.9 10^3/uL (4.0-10.0)
[2021-06-14 03:41] LABS: Alanine Aminotransferase < 5 U/L (0-33); Albumin Level 3.2 g/dL (3.5-5.2); Alkaline Phosphatase 97 IU/L (35-105); Aspartate Amino Transferase 9 U/L (0-32); Blood Urea Nitrogen 4 mg/dL (6-20); Calcium 8.3 mg/dL (8.5-10.5); Carbon Dioxide 24 mmol/L (22-29); Chloride 110 mmol/L (98-107); Globulin 2.6 g/dL (1.3-4.6); Glomerular Filtration Rate 107.2 mL/min (90-130); Glucose 93 mg/dL (65-115); Osmolality Calculated 295 mOsm/kg (285-295); Sodium 144 mmol/L (136-145); Total Bilirubin 0.4 mg/dL (0.15-1.2); Total Protein 5.8 g/dL (6.6-8.7)
[2021-06-14 03:43] LABS: Anion Gap 13.7 (5-19); Potassium 3.7 mmol/L (3.5-5.1)
[2021-06-14] MEDS: linezolid 600 mg Tablet PO ×2 (04:38→17:20)
--- NOTE | 2021-06-14 04:53 | PC.NURSE ---
i reported high pulse 104 to nurse
[2021-06-14] MEDS: thiamine 100 mg Tablet PO (06:29)
[2021-06-14] MEDS: levothyroxine 100 mcg Tablet 300 MCG PO (06:29)
[2021-06-14] MEDS: folic acid 1 mg Tablet PO (06:29)
[2021-06-14 06:34] LABS: Glucose Point of Care 95 mg/dL (70-110)
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
[2021-06-14] MEDS: levETIRAcetam 500 mg Tablet 1000 MG PO ×2 (07:39→20:37)
[2021-06-14] MEDS: hydrocortisone 10 mg Tablet 5 MG PO ×2 (07:39→17:19)
[2021-06-14] MEDS: fluticasone nasal spray 16gm Btl 1 SPRAY INTRANASAL ×2 (07:39→20:38)
[2021-06-14] MEDS: gabapentin 100 mg Capsule 200 MG PO ×3 (07:40→20:37)
[2021-06-14] MEDS: pantoprazole DR 40 mg Tablet PO (07:41)
[2021-06-14] MEDS: diphenhydrAMINE 25 mg Capsule PO (07:50)
[2021-06-14] MEDS: albuterol 8 gm MDI 2 PUFF INHALATION (07:58)
--- NOTE | 2021-06-14 08:31 | P.PN_ITS ---
Subjective Subjective: Interval history: The patient's central line placement and bone biopsy were canceled yesterday due to the fact that we found that she ordered food for hospital delivery and ate chicken wings in the afternoon when she knew she was supposed to be n.p.o. Staff reports that they found some Dr. Alexander in her bedside table this morning but she swears that she has not had anything to eat or drink since midnight last night other than a small sip of water with her medications this morning. She has no questions regarding the procedures that we discussed already. Vitals/I&O/Wt Last Vital Signs Temp 97.7 F 06/14/21 07:17 Pulse 76 06/14/21 07:59 Resp 20 H 06/14/21 07:59 BP 94/59 06/14/21 07:17 Pulse Ox 99 06/14/21 07:59 06/13/21 06/14/21 06/14/21 22:59 06:59 14:59 Intake Total 420 / 640 200 / 640 0 / 0 Output Total 550 / 550 Balance 420 / 90 -350 / 90 0 / 0 Physical Exam Narrative: EXAM NARRATIVE: No significant change. Urinary Catheter Management^: Cosme: Cath Placed During This Visit: no Reason for Continuing Indwelling Catheter: Other Data : 06/14/21 03:00 06/14/21 03:00 A&P Assessment and plan (1) Poor venous access: Planning central line placement this morning. Status: Acute (2) Osteomyelitis of femur: Planning bone biopsy of the left femur this morning. Status: Acute Attestations Medical Necessity Statement*: See admitting service's notation. Coding Level of Care Code Acute Financial Quantitative Analyst for Franky Cory Diagnoses Poor venous access I87.8 Osteomyelitis of femur M86.9
[2021-06-14] MEDS: sodium chloride 0.9% 1,000 ML 30 ML IV (08:42)
[2021-06-14] MEDS: clindamycin 900 MG/50 ML PREMIX 100 MG IV (08:44)
--- NOTE | 2021-06-14 09:14 | SC_ITS ---
WS: [id number] C-ARM RADIOGRAPHS CHEST; 3 IMAGES HISTORY: Intraoperative imaging COMPARISON: None available. Intraoperative imaging during procedure performed by Dr. Clements. Nondiagnostic imaging quality. SC/C-arm [place] for CVA [id number] IMPRESSION: Intraoperative imaging.
[2021-06-14] MEDS: heparin, porcine 1,000 unit/mL INJ 10 mL 2000 UNIT XX (09:35)
--- NOTE | 2021-06-14 09:43 | PM.OP ---
Operative Report Date of procedure: June 14, 2021 Pre-op Diagnosis: 1. Poor peripheral venous access. 2. Suspected osteomyelitis left femur. Post-op diagnosis: same Procedure Done: 1. Right internal jugular triple-lumen catheter placement utilizing intraoperative ultrasound with intraoperative fluoroscopy interpretation. 2. Left femur bone biopsy via open wound. Specimens removed/disposition: 1. Small fragments of left femur. Surgeon: William Clements Anesthesia: MAC Estimated blood loss (mL): 5 Complications: None. Condition: stable Disposition: PACU Procedure: The patient was brought to the operating room and was placed in a supine position on the operating room table. A monitored anesthetic was induced. The right side of the neck and chest were prepped and draped in a sterile fashion. A combination of 1% lidocaine and 0.5% bupivacaine with 1 to 200,000 parts epinephrine were utilized for local anesthesia throughout the procedures. The intraoperative ultrasound was utilized to find the right internal jugular vein as evidenced by its size and compressibility. The patient was placed in Trendelenburg position. The patient's right internal jugular vein was accessed on the first pass with a needle and syringe as evidenced by the return of dark nonpulsatile blood. The J-wire was passed down the needle and the needle was withdrawn. The C-arm was positioned and showed the wire extending into the right atrium/ventricle. The wire was withdrawn slightly. The site at the entrance point on the right side of the neck was incised slightly with a scalpel and then the dilator was passed over the wire. The dilator was removed and the triple-lumen catheter was easily passed over the guidewire and the wire was removed. The ports aspirated well and flushed well with hep flush solution. The port was sewn in place using multiple sutures of 3-0 silk and 2-0 Prolene. A sterile dressing was placed over the site. The patient was then moved to a modified right lateral decubitus position on the table to get access to the posterior lateral aspect of the left thigh. The patient had an open wound which tracked down to the left femur by palpation. The surrounding area was prepped and the entire area was draped. Retractor was used to expose the bone and an elevator was used to remove some of the superficial connective tissue. Rongeurs were used to take 2 small fragments of bone from the visible aspect of the femur. The wound was packed and a sterile dressing was applied. The patient was taken to the recovery area in stable condition postoperatively. INTRAOPERATIVE FLUOROSCOPY INTERPRETATION: Intraoperative fluoroscopic images of a central line placement were reviewed. An initial image reveals a J-wire likely entering the right internal jugular vein and extending down into the right atrium/ventricle. Subsequent images reveal a central venous catheter extending down to the right atrial area. No obvious pneumothorax is identified.
[2021-06-14] MEDS: HYDROmorphone 1 mg/mL INJ 1 mL 0.5 MG IVP ×2 (10:02→10:36)
--- NOTE | 2021-06-14 10:43 | SUR.OPER ---
at 0820- When transferring patient from [facility] to [facility] patient was asked if she had eaten or had anything to drink since midnight. Patient stated she had not. A chicken wing bone was noted under her bed and two 1/2 bottles of were noted at her bedside table. Dr. Clements notified. Patient also stated she is not able to wear the scd's. Dr. Clements notifed about that as well. HD
[2021-06-14 11:53] LABS: Glucose Point of Care 93 mg/dL (70-110)
[2021-06-14] MEDS: ondansetron 2 mg/ML SDV 2 mL 4 MG IVP ×2 (13:25→22:43)
--- NOTE | 2021-06-14 15:06 | ANE.PACU2 ---
Inpatient post-anesthesia follow up: Airway intact: Yes Vital signs: Temperature 97.2 F Pulse Rate [Monito r] 97 Pulse Rate 76 Respiratory Rate 18 Blood Pressure [Le ft Arm] 66/53 Blood Pressure 132/85 Pulse Oximetry 100 Oxygen Delivery Me thod Nasal Cannula Oxygen Flow Rate 3 Fraction of Inspir ed Oxygen Hydration adequate: Yes Nausea and vomiting: No Pain level: 2 Mental status: Baseline
[2021-06-14 16:24] LABS: Glucose Point of Care 117 mg/dL (70-110)
[2021-06-14] MEDS: nystatin powder 15 gm Btl 1 APPLIC TOPICAL (17:19)
[2021-06-14] MEDS: midodrine 5 mg TABLET 10 MG PO ×2 (17:20→22:00)
--- NOTE | 2021-06-14 20:26 | P.PN_ITS ---
Subjective Subjective: Interval history: Having some pain at the access site, requesting for additional doses of pain medication. Vitals/I&O/Wt Last Vital Signs Temp 98.6 F 06/14/21 15:06 Pulse 82 06/14/21 15:06 Resp 17 06/14/21 15:06 BP 109/69 06/14/21 15:06 Pulse Ox 99 06/14/21 15:06 06/14/21 06/14/21 06/14/21 06:59 14:59 22:59 Intake Total 200 / 640 1630 / 1630 580 / 2210 Output Total 550 / 550 400 / 401 Balance -350 / 90 1629 / 1629 180 / 1809 Weight last 48 hrs Weight 90.01 kg Physical Exam Const: COMMON NORMALS: no acute distress, patient oriented x3 and alert GENERAL APPEARANCE: cooperative and comfortable NUTRITIONAL APPEARANCE: overweight ORIENTATION/CONSCIOUSNESS: Yes awake HENMT: COMMON NORMALS: oropharynx normal Eye: PUPIL: Yes Pupils anisocoria (Both reactive to light directly and reciprocally. Reactive to accommodation) right pupil size greater than left Neck/C-Spine: COMMON NORMALS: no JVD Resp: COMMON NORMALS: normal respiratory effort and clear to auscultation bilaterally AUSCULTATION: clear to auscultation bilaterally Cardio: COMMON NORMALS: no JVD, regular rhythm, S1 normal heart sound present, S2 normal heart sound present and No murmurs present (Cardio) RHYTHM: regular rhythm HEART SOUNDS: S1 normal heart sound present and S2 normal heart sound present GI: COMMON NORMALS: Normal to inspection, nondistended, normoactive bowel sounds present, Soft to palpation and non-tender PALPATION: Yes Soft to palpation Extremity: COMMON NORMALS: no joint enlargement and no pedal edema OTHER: R arm picc gone Neuro: COMMON NORMALS: patient oriented x3 and moves all extremities SENSORIUM/ORIENTATION: Yes alert Skin: LESIONS: lesion noted (Left heel shallow pressure ulceration with pink appearing base, no necr/mabel) WOUNDS: Yes wounds noted (Wounds l heel, thigh, sacrum ) OTHER: Erythema, sig improving. Soft tissue swelling bilateral lower extremity subsiding, shallow desquamation without bullae, healing, dry scales. No impetigo. No purulent drainage. Excoriations noted bilaterally. Urinary Catheter Management^: Cosme: Cath Placed During This Visit: no Reason for Continuing Indwelling Catheter: Other Data : 06/14/21 03:00 06/14/21 03:00 Micro: Microbiology 06/09/21 11:00 Blood Culture - Final Blood NO GROWTH AFTER 5 DAYS 06/09/21 11:50 Blood Culture - Final Blood NO GROWTH AFTER 5 DAYS A&P Assessment and plan (1) Bacteremia: Central venous access obtained today. Continued on Primaxin. At this time tentative plan for additional 7 days of therapy. Needs continued IV antibiotic for coverage for Acinetobacter, which is also made difficult due to resistance to multiple organisms. Intermediate sensitivity to Primaxin, and so far has been improving, so for now this would be the antibiotic of choice for coverage. Otherwise continues with linezolid coverage for Enterococcus as well. Also bone biopsies obtained from osteomyelitis site of left femur. Follow-up culture results. These will provide us with additional information useful in further determining duration of antibiotic therapy. Status: Acute (2) Anisocoria: Requested additional evaluation by ophthalmology given bacteremia. Appreciate consultation and looking forward to assessment findings. Discussed findings of possible hydrocephalus with our radiologist. On review of prior images this appears to be a somewhat gradual process, and not impressive for obstructive hydrocephalus. Again no high-grade obstruction on MRI to suggest cord compression in the lumbar spine. Suspected more likely ex vacuo process. Today symptomatically also she is doing much better, no nausea or vomiting, no headache, or other progression of symptoms, and he is requesting to advance to solid diet. Discussed with her consideration of LP, although does have excoriations on her back from scratching. No overt cellulitis, but may be high risk for infection with transdermal transit. Without other meningeal signs. As hydrocephalus also possibly more likely ex vacuo, for now held off on lumbar puncture, but may have to pursue in case there are changes for the worse. Continue to hold fludrocortisone and albumin infusions. She has not been wanting to go back to MRI given she had a very miserable experience there with her lumbar scan. Unclear timing of onset of anisocoria. Not a clear cause of this. She states she is had diminished vision ever since the beginning of this hospitalization. Pupils do appear to be reactive to light. Status: Acute (3) Hydrocephalus: Discussed findings of possible hydrocephalus with our radiologist. On review of prior images this appears to be a somewhat gradual process, and not impressive for obstructive hydrocephalus. Again no high-grade obstruction on MRI to suggest cord compression in the lumbar spine. Suspected more likely ex vacuo process with atrophy advanced for age. Perhaps relating to alcohol use disorder. Small bifrontal benign hygromas. Status: Acute (4) Sepsis: Bone biopsies obtained from osteomyelitis of left femur on 06/14. Follow- up culture. Continue Primaxin for Acinetobacter bacteremia, linezolid for VRE bacteremia. [place] CT scan she has showed: -Posterior left upper thigh decubitus ulcer with associated inflammatory mass and changes in the adjacent femur compatible with osteomyelitis -The lumbar spine is stable in appearance compared to 10/02/2020. There are findings of degenerative spondylosis. The findings at L5-S1 could represent chronic disc space infection however there are no adjacent soft tissue changes a nd the appearance of this level has not changed since 10/02/2020. -MRI of the lumbar spine showed no secondary features suggestive of discitis or osteomyelitis Blood Culture: NTD Urine Culture: E. coli, Enterobacter cloacae sensitive to imipenem -Etiology, multifactorial, from bilateral lower extremity cellulitis, from thigh decubitus ulcer with osteomyelitis, bilateral heel sacral ulcers, UTI Status: Acute (5) Rash and nonspecific skin eruption: Improving. Have held midodrine, and also have been avoiding Lasix, and rash appears to be resolving. Not sure which of these agents may been contributing, but added both to adverse reaction list, as these rashes appear to be recurrent, and she appears to frequently inadvertently again end up on these medications. Skin punch biopsy unremarkable/unrevealing. Diffuse Rash - nonspecific skin eruption, now flaking off. Pruritic. She request for Benadryl. States it works better for her than Vistaril. Blood pressure is good. Hold midodrine which can also cause pruritus. Had rash previously. Was thought to be associated possibly with Lasix, although low cross-reactivity with sulfa usually, but rash is back and she appears to again have been on Lasix. Avoid Lasix. Possible allergic reaction, continues to have diffuse maculopapular rash, pruritic Has features of dress syndrome, elevated eosinophils Possibilities also include toxic epidermal necrolysis versus Jim Bladimir syndrome versus dress syndrome Hepatitis C positive, PCR negative. Status: Acute (6) Adrenal insufficiency: hydrocortisone. Hold Florinef. Monitor blood pressures. Currently blood pressure is good, midodrine stopped as can also cause pruritus. Status: Acute (7) Stage IV pressure ulcer: -Bilateral heels, left thigh -On hospital admission March 28, 2021, had debridement -Continue offloading, wound care, monitor closely Status: Acute (8) Acute kidney injury: Resolved. Hyponatremia resolved Admission Serum Creatinine 0.9 Cautious IV hydration stopped Cosme Has good urine output Status: Acute (9) Alcohol intoxication: Currently not in withdrawal Discussed with her to avoid any alcohol. She verbalized understanding and agr eement. Status: Acute (10) DVT prophylaxis: Status: Acute (11) Osteomyelitis of femur: Status: Acute Additional A&P Information Hypokalemia: Replace Hypomagnesemia: Replaced Attestations Medical Necessity Statement*: Continue admission for assessment management of Acinetobacter and VRE bacteremia, with difficult peripheral access requiring central venous line placement for continued IV antibiotic treatment of multidrug-resistant organism, follow-up on culture results from osteomyelitis bone biopsy to help determine duration of treatment for bacteremia. Coding Level of Care Code Acute Sales Contracts Analyst for [facility] Diagnoses Bacteremia R78.81 Anisocoria H57.02 Hydrocephalus G91.9 Sepsis A41.9 Rash and nonspecific skin eruption R21 Adrenal insufficiency E27.40 Stage IV pressure ulcer L89.94 Acute kidney injury N17.9 Alcohol intoxication F10.929 DVT prophylaxis Z29.9 Osteomyelitis of femur M86.9
[2021-06-14 20:31] LABS: Glucose Point of Care 117 mg/dL (70-110)
[2021-06-14] MEDS: apixaban 5 mg Tablet 2.5 MG PO (20:34)
[2021-06-14] MEDS: ferrous gluconate 324 mg Tablet PO (20:37)
--- NOTE | 2021-06-14 22:43 | PC.NURSE ---
IVP zofran admin for primary nurse for pt c/o nausea
[2021-06-15] VITALS (13 sets, daily range): BP systolic 122–168; BP diastolic 66–90; PULSE 59–79; RESP 16–20; TEMP 36.6–36.8; O2SAT 92–98
[2021-06-15] MEDS: tizanidine 4 mg Tablet 2 MG PO ×2 (00:55→21:55)
[2021-06-15] MEDS: levothyroxine 100 mcg Tablet 300 MCG PO (05:17)
[2021-06-15] MEDS: midodrine 5 mg TABLET 10 MG PO ×4 (05:17→22:06)
[2021-06-15] MEDS: linezolid 600 mg Tablet PO ×2 (05:22→17:03)
[2021-06-15] MEDS: folic acid 1 mg Tablet PO (06:02)
[2021-06-15] MEDS: thiamine 100 mg Tablet PO (06:02)
[2021-06-15 06:18] LABS: Basophils # 0.1 10^3/uL (0.0-0.1); Basophils % 1.9 %; Eosinophils # 0.7 10^3/uL (0.0-0.8); Eosinophils % 11.2 %; Hematocrit 29.6 % (37.0-47.0); Hemoglobin 8.9 g/dL (11.5-15.3); Lymphocytes # 1.6 10^3/uL (0.8-4.8); Mean Corpuscular HGB Conc 30.1 g/dL (30.0-36.0); Mean Corpuscular Hemoglobin 27.9 pg (28.0-34.0); Mean Corpuscular Volume 92.8 fl (81-99); Mean Platelet Volume 10.4 fL (7.4-10.4); Monocytes # 0.5 10^3/uL (0.2-0.9); Monocytes % 8.3 %; Neutrophils # 2.97 10^3/uL (1.8-7.7); Neutrophils % 51.4 %; Nucleated Red Blood Cells % 0 %; Platelet Count 277 10^3/cmm (130-400); Red Blood Count 3.19 10^6/uL (4.1-5.3); Red Cell Distribution Width 17.9 % (12.1-15.1); White Blood Count 5.8 10^3/uL (4.0-10.0)
[2021-06-15 06:42] LABS: Anion Gap 13.2 (5-19); Blood Urea Nitrogen 4 mg/dL (6-20); Calcium 8.3 mg/dL (8.5-10.5); Carbon Dioxide 27 mmol/L (22-29); Chloride 109 mmol/L (98-107); Creatinine Clr Calc Pharmacy 123.6327; Glomerular Filtration Rate 107.2 mL/min (90-130); Glucose 71 mg/dL (65-115); Osmolality Calculated 297 mOsm/kg (285-295); Potassium 3.2 mmol/L (3.5-5.1); Sodium 146 mmol/L (136-145)
[2021-06-15 07:00] LABS: Glucose Point of Care 81 mg/dL (70-110)
[2021-06-15] MEDS: albuterol 8 gm MDI 2 PUFF INHALATION (08:56)
[2021-06-15] MEDS: hydrocortisone 10 mg Tablet 5 MG PO ×2 (09:08→17:03)
[2021-06-15] MEDS: apixaban 5 mg Tablet 2.5 MG PO ×2 (09:08→19:47)
[2021-06-15] MEDS: ferrous gluconate 324 mg Tablet PO ×2 (09:08→19:47)
[2021-06-15] MEDS: levETIRAcetam 500 mg Tablet 1000 MG PO ×2 (09:08→19:46)
[2021-06-15] MEDS: gabapentin 100 mg Capsule 200 MG PO ×3 (09:08→19:46)
[2021-06-15] MEDS: pantoprazole DR 40 mg Tablet PO (09:09)
[2021-06-15] MEDS: potassium chloride ER 20 mEq Tablet PO (09:09)
[2021-06-15] MEDS: fluticasone nasal spray 16gm Btl 1 SPRAY INTRANASAL ×2 (09:09→19:52)
[2021-06-15] MEDS: nystatin powder 15 gm Btl 1 APPLIC TOPICAL ×2 (09:10→17:04)
[2021-06-15] MEDS: ondansetron 2 mg/ML SDV 2 mL 4 MG IVP ×2 (10:11→22:14)
--- NOTE | 2021-06-15 10:55 | PC.NURSE ---
Dr. Ovalle asked this nurse to call Dr. Rai office to see if he was able to come and consult pt-he had been contacted a few days ago by Dr. Ovalle. Message left with Dr. Rai office regarding this.
[2021-06-15 11:59] LABS: Glucose Point of Care 91 mg/dL (70-110)
[2021-06-15 17:40] LABS: Glucose Point of Care 112 mg/dL (70-110)
--- NOTE | 2021-06-15 19:46 | PM.PN ---
Subjective Subjective: Interval history: infectious disease progress note. Interim events noted, CVC placed for iv access, bone biopsy obtained Medications: Reviewed: Yes Vitals/I&O/Wt Last Vital Signs Temp 98.0 F 06/15/21 15:56 Pulse 67 06/15/21 15:56 Resp 17 06/15/21 18:29 BP 133/89 06/15/21 15:56 Pulse Ox 94 06/15/21 15:56 06/15/21 06/15/21 06/15/21 06:59 14:59 22:59 Intake Total 500 / 2980 580 / 580 340 / 920 Output Total 50 / 50 200 / 250 Balance 500 / 2579 530 / 530 140 / 670 Weight last 48 hrs Weight 90.31 kg Weight 90.01 kg Physical Exam Narrative: EXAM NARRATIVE: not examined today. Chart reviewed and care discussed with hospitalist Urinary Catheter Management^: Cosme: Cath Placed During This Visit: no Reason for Continuing Indwelling Catheter: Acute Urinary Retention or Obstruction Data : 06/15/21 05:13 06/15/21 05:13 Micro: Microbiology 06/14/21 09:45 Gram Stain - Final Leg - #1 Tissue Culture - Preliminary A&P Assessment and plan (1) Bacteremia: Status: Acute (2) Osteomyelitis of femur: Status: Acute Qualifiers: Osteomyelitis type: other chronic Laterality: unspecified laterality Qualified Code(s): M86.659 - Other chronic osteomyelitis, unspecified thigh (3) Rash and nonspecific skin eruption: Status: Acute (4) Adrenal insufficiency: Status: Acute Additional A&P Information Patient presenting with HPI as above. Concern for septic shock upon admission. Infectious w/up notable for + UA and urine cx, transient bacteremia with Acinetobacter and VRE and osteomyelitis of femur on imaging. # Bacteremia with Acenitobacter baumanii and VRE fecium Transient bacteremia on 06/07 Blood cx negative on admission, + 06/07 (2 of 4 bottles?? ), then clear on 06/09 serial check. no clear source of bacteremia appears evident at this time May represent contamination, however with 2 organisms (one GPC and one GNR), one of which is Acinetobacter, hesitant to dismiss as just contaminated culture. Recommend to treat for transient bacteremia for 2 weeks from clearance (06/09-06/22). Isolate of acinetobacter appears resistant to multiple abx incl cefepime, CTX, FQs, tetracycline. Imipenem SUNG 4. Meropenem SUNG, polymixin susceptibilities unable to be obtained at lab- requested send out. Given sustained clinical improvement on current regimen of imipenem and linezolid, recommend to continue the same for now. UA and urine cx + for E.coli and Enterobacter cloacae, adequately covered and treated with imipenem. Overall suspect that hypotension on admission may have been related to adrenal insufficiency and improved quickly after addition of Florinef and midodrine. # osteomyelitis of femur in setting of open pressure ulcer : Appreciate bone biopsy, awaiting results, further treatment course dependent on the same # Diffuse rash at presentation. 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
[2021-06-15] MEDS: CLONazepam 0.5 mg Tablet 0.25 MG PO (21:55)
[2021-06-15 22:13] LABS: Glucose Point of Care 95 mg/dL (70-110)
--- NOTE | 2021-06-15 22:18 | PM.PN ---
Subjective Subjective: Interval history: States she is in pain at the site of the bone biopsy and central venous catheter, request for additional pain medication. States she walked 70 feet and was shaking while doing so, but did. States does not want to become bedridden. Vitals/I&O/Wt Last Vital Signs Temp 97.9 F 06/15/21 20:00 Pulse 66 06/15/21 20:55 Resp 20 H 06/15/21 20:55 BP 168/66 06/15/21 20:00 Pulse Ox 98 06/15/21 20:55 06/15/21 06/15/21 06/15/21 06:59 14:59 22:59 Intake Total 500 / 2980 580 / 580 340 / 920 Output Total 50 / 50 200 / 250 Balance 500 / 2579 530 / 530 140 / 670 Weight last 48 hrs Weight 90.31 kg Weight 90.01 kg Physical Exam Const: COMMON NORMALS: no acute distress, patient oriented x3 and alert GENERAL APPEARANCE: anxious NUTRITIONAL APPEARANCE: overweight ORIENTATION/CONSCIOUSNESS: Yes awake HENMT: COMMON NORMALS: oropharynx normal Eye: PUPIL: Yes Pupils anisocoria (Both reactive to light directly and reciprocally. Reactive to accommodation) right pupil size greater than left Neck/C-Spine: COMMON NORMALS: no JVD Chest: OTHER: R IJ CVC Resp: COMMON NORMALS: normal respiratory effort and clear to auscultation bilaterally AUSCULTATION: clear to auscultation bilaterally Cardio: COMMON NORMALS: no JVD, regular rhythm, S1 normal heart sound present, S2 normal heart sound present and No murmurs present (Cardio) RHYTHM: regular rhythm HEART SOUNDS: S1 normal heart sound present and S2 normal heart sound present GI: COMMON NORMALS: Normal to inspection, nondistended, normoactive bowel sounds present, Soft to palpation and non-tender PALPATION: Yes Soft to palpation Extremity: COMMON NORMALS: no joint enlargement and no pedal edema Neuro: COMMON NORMALS: patient oriented x3 and moves all extremities SENSORIUM/ORIENTATION: Yes alert Skin: LESIONS: lesion noted (Left heel shallow pressure ulceration with pink appearing base, no necr/mabel) WOUNDS: Yes wounds noted (Wounds l heel, thigh, sacrum ) OTHER: Erythema, sig improving. Soft tissue swelling bilateral lower extremity subsiding, shallow desquamation without bullae, healing, dry scales. No impetigo. No purulent drainage. Excoriations noted bilaterally. Urinary Catheter Management^: Cosme: Cath Placed During This Visit: no Reason for Continuing Indwelling Catheter: Acute Urinary Retention or Obstruction Data : 06/15/21 05:13 06/15/21 05:13 Micro: Microbiology 06/14/21 09:45 Gram Stain - Final Leg - #1 Tissue Culture - Preliminary A&P Assessment and plan (1) Bacteremia: Continue Primaxin for Acinetobacter, multidrug resistant. Follow-up bone biopsy culture results. Tentatively continue until 06/22 currently unless results of bone biopsy may alter need for treatment. Continue linezolid for VRE. Status: Acute (2) Osteomyelitis of femur: Follow-up bone biopsy results. Status: Acute Qualifiers: Osteomyelitis type: other chronic Laterality: unspecified laterality Qualified Code(s): M86.659 - Other chronic osteomyelitis, unspecified thigh (3) Rash and nonspecific skin eruption: Gradually resolving, erythema mostly gone, excoriated/desquamated areas gradually healing with granulation tissue. Of midodrine, and also have been avoiding Lasix, and rash appears to be resolving. Not sure which of these agents may been contributing, but added both to adverse reaction list, as these rashes appear to be recurrent, and she appears to frequently inadvertently again end up on these medications. Skin punch biopsy unremarkable/unrevealing. Diffuse Rash - nonspecific skin eruption, now flaking off. Pruritic. She request for Benadryl. States it works better for her than Vistaril. Blood pressure is good. Hold midodrine which can also cause pruritus. Had rash previously. Was thought to be associated possibly with Lasix, although low cross-reactivity with sulfa usually, but rash is back and she appears to again have been on Lasix. Avoid Lasix. Possible allergic reaction, continues to have diffuse maculopapular rash, pruritic Has features of dress syndrome, elevated eosinophils Possibilities also include toxic epidermal necrolysis versus Jim Bladimir syndrome versus dress syndrome Hepatitis C positive, PCR negative. Status: Acute (4) Adrenal insufficiency: hydrocortisone. Hold Florinef. Monitor blood pressures. Currently blood pressure is good, midodrine stopped as can also cause pruritus. Status: Acute (5) Anisocoria: Requested additional evaluation by ophthalmology given bacteremia. Appreciate consultation and looking forward to assessment findings. Discussed findings of possible hydrocephalus with our radiologist. On review of prior images this appears to be a somewhat gradual process, and not impressive for obstructive hydrocephalus. Again no high-grade obstruction on MRI to suggest cord compression in the lumbar spine. Suspected more likely ex vacuo process. Today symptomatically also she is doing much better, no nausea or vomiting, no headache, or other progression of symptoms, and he is requesting to advance to solid diet. Discussed with her consideration of LP, although does have excoriations on her back from scratching. No overt cellulitis, but may be high risk for infection with transdermal transit. Without other meningeal signs. As hydrocephalus also possibly more likely ex vacuo, for now held off on lumbar puncture, but may have to pursue in case there are changes for the worse. Continue to hold fludrocortisone and albumin infusions. She has not been wanting to go back to MRI given she had a very miserable experience there with her lumbar scan. Unclear timing of onset of anisocoria. Not a clear cause of this. She states she is had diminished vision ever since the beginning of this hospitalization. Pupils do appear to be reactive to light. Status: Acute (6) Hydrocephalus: Discussed findings of possible hydrocephalus with our radiologist. On review of prior images this appears to be a somewhat gradual process, and not impressive for obstructive hydrocephalus. Again no high-grade obstruction on MRI to suggest cord compression in the lumbar spine. Suspected more likely ex vacuo process with atrophy advanced for age. Perhaps relating to alcohol use disorder. Small bifrontal benign hygromas. Status: Acute (7) Poor venous access: Status: Acute (8) Stage IV pressure ulcer: -Bilateral heels, left thigh -On hospital admission March 28, 2021, had debridement -Continue offloading, wound care, monitor closely Status: Acute (9) Acute kidney injury: Resolved. Hyponatremia resolved Admission Serum Creatinine 0.9 Cautious IV hydration stopped Cosme Has good urine output Status: Acute (10) Alcohol intoxication: Currently not in withdrawal Discussed with her to avoid any alcohol. She verbalized understanding and agreement. Status: Acute (11) Sepsis: Sepsis resolved. Continue treatment for bacteremia as above. Bone biopsies obtained from osteomyelitis of left femur on 06/14. Follow-up culture. Continue Primaxin for Acinetobacter bacteremia, linezolid for VRE bacteremia. [place] CT scan she has showed: -Posterior left upper thigh decubitus ulcer with associated inflammatory mass and changes in the adjacent femur compatible with osteomyelitis -The lumbar spine is stable in appearance compared to 10/02/2020. There are findings of degenerative spondylosis. The findings at L5-S1 could represent chronic disc space infection however there are no adjacent soft tissue changes and the appearance of this level has not changed since 10/02/2020. -MRI of the lumbar spine showed no secondary features suggestive of discitis or osteomyelitis Blood Culture: NTD Urine Culture: E. coli, Enterobacter cloacae sensitive to imipenem -Etiology, multifactorial, from bilateral lower extremity cellulitis, from thigh decubitus ulcer with osteomyelitis, bilateral heel sacral ulcers, UTI Status: Acute (12) DVT prophylaxis: Status: Acute Additional A&P Information Hypokalemia: Replace Hypomagnesemia: Replaced Attestations Medical Necessity Statement*: Continue admission for assessment management of multidrug-resistant bacteremia with Acinetobacter, VRE, poor peripheral IV access, need for central line to continue IV antibiotics. 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
[2021-06-16] VITALS (12 sets, daily range): BP systolic 110–147; BP diastolic 68–95; PULSE 47–79; RESP 16–20; TEMP 36.4–36.9; O2SAT 90–97
[2021-06-16] MEDS: diphenhydrAMINE 25 mg Capsule PO (00:38)
[2021-06-16] MEDS: linezolid 600 mg Tablet PO ×2 (04:59→17:49)
[2021-06-16] MEDS: midodrine 5 mg TABLET 10 MG PO ×4 (04:59→23:15)
[2021-06-16] MEDS: levothyroxine 100 mcg Tablet 300 MCG PO (04:59)
[2021-06-16] MEDS: metoclopramide 5 mg/mL SDV 2 mL IVP (05:35)
[2021-06-16 05:49] LABS: Basophils # 0.2 10^3/uL (0.0-0.1); Basophils % 2.8 %; Eosinophils # 0.8 10^3/uL (0.0-0.8); Eosinophils % 12.6 %; Hematocrit 31.2 % (37.0-47.0); Hemoglobin 9.6 g/dL (11.5-15.3); Lymphocytes # 1.6 10^3/uL (0.8-4.8); Lymphocytes % 25.2 %; Mean Corpuscular HGB Conc 30.8 g/dL (30.0-36.0); Mean Corpuscular Hemoglobin 29.3 pg (28.0-34.0); Mean Corpuscular Volume 95.1 fl (81-99); Mean Platelet Volume 10.3 fL (7.4-10.4); Monocytes # 0.6 10^3/uL (0.2-0.9); Monocytes % 9.3 %; Neutrophils # 3.16 10^3/uL (1.8-7.7); Neutrophils % 49.8 %; Nucleated Red Blood Cells % 0 %; Platelet Count 275 10^3/cmm (130-400); Red Blood Count 3.28 10^6/uL (4.1-5.3); White Blood Count 6.4 10^3/uL (4.0-10.0)
[2021-06-16] MEDS: folic acid 1 mg Tablet PO (06:06)
[2021-06-16] MEDS: thiamine 100 mg Tablet PO (06:06)
[2021-06-16 06:11] LABS: Anion Gap 9.9 (5-19); Blood Urea Nitrogen 4 mg/dL (6-20); Calcium 8.1 mg/dL (8.5-10.5); Carbon Dioxide 29 mmol/L (22-29); Chloride 109 mmol/L (98-107); Creatinine Clr Calc Pharmacy 148.3593; Glomerular Filtration Rate 132.2 mL/min (90-130); Glucose 81 mg/dL (65-115); Osmolality Calculated 294 mOsm/kg (285-295); Potassium 3.9 mmol/L (3.5-5.1); Sodium 144 mmol/L (136-145)
[2021-06-16 06:36] LABS: Glucose Point of Care 96 mg/dL (70-110)
[2021-06-16] MEDS: hydrocortisone 10 mg Tablet 5 MG PO ×2 (08:06→17:49)
[2021-06-16] MEDS: ferrous gluconate 324 mg Tablet PO ×2 (08:06→21:12)
[2021-06-16] MEDS: levETIRAcetam 500 mg Tablet 1000 MG PO ×2 (08:06→21:10)
[2021-06-16] MEDS: gabapentin 100 mg Capsule 200 MG PO ×3 (08:06→21:10)
[2021-06-16] MEDS: fluticasone nasal spray 16gm Btl 1 SPRAY INTRANASAL (08:07)
[2021-06-16] MEDS: apixaban 5 mg Tablet 2.5 MG PO ×2 (08:07→21:11)
[2021-06-16] MEDS: pantoprazole DR 40 mg Tablet PO (08:07)
[2021-06-16] MEDS: ondansetron 2 mg/ML SDV 2 mL 4 MG IVP ×2 (08:21→23:36)
--- NOTE | 2021-06-16 09:07 | ECG_ITS ---
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 Measurements Intervals [place] Rate: 56 P: 29 TN: 156 QRS: 37 QRSD: 85 T: 61 QT: 480 QTc: 467 Interpretive Statements SINUS BRADYCARDIA LOW QRS VOLTAGE IN PRECORDIAL LEADS [QRS DEFLECTION < 1.0 mV IN CHEST LEADS] POSSIBLE ANTERIOR MYOCARDIAL INFARCTION , OF INDETERMINATE AGE [30 ms Q WAVE IN V3/V4, OR R < 0.2 mV IN V4] Compared to ECG 03/10/2021 00:16:37 Myocardial infarct finding now present Sinus tachycardia no longer present Electronically Signed On 06-16-2021 18:35:30 CDT by Johnny Walsh M.D. [id number]
[2021-06-16] MEDS: albuterol 8 gm MDI 2 PUFF INHALATION (09:09)
--- NOTE | 2021-06-16 09:20 | PC.SOCIAL ---
IMM Update pg.2 of IMM updated and reviewed with patient, who verbalized understanding. Copy provided.
[2021-06-16 10:07] LABS: Troponin(5th) Baseline 18 ng/L (0-10)
[2021-06-16 11:07] LABS: Glucose Point of Care 99 mg/dL (70-110)
[2021-06-16] MEDS: nystatin powder 15 gm Btl 1 APPLIC TOPICAL ×2 (12:01→18:48)
[2021-06-16] MEDS: CLONazepam 0.5 mg Tablet 0.25 MG PO ×2 (12:08→21:13)
[2021-06-16 14:52] LABS: Troponin 5 2HR 14.71 ng/L (0-10)
[2021-06-16 14:59] LABS: Troponin 5 2HR Delta -3.26 ABS# (0-10)
--- NOTE | 2021-06-16 15:07 | ECG_ITS ---
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 Measurements Intervals [place] Rate: 54 P: 26 OR: 144 QRS: 46 QRSD: 86 T: 75 QT: 492 QTc: 468 Interpretive Statements SINUS BRADYCARDIA WITH SINUS ARRHYTHMIA LOW QRS VOLTAGE IN PRECORDIAL LEADS [QRS DEFLECTION < 1.0 mV IN CHEST LEADS] Compared to ECG 06/16/2021 09:30:32 Prolonged QT interval now present Myocardial infarct finding no longer present Electronically Signed On 06-16-2021 18:39:02 CDT by Johnny Walsh M.D. [email or web address] adult [id number]
[2021-06-16 16:20] LABS: Troponin 5 6HR 14.34 ng/L (0-10); Troponin 5 6HR Delta -3.66 ng/L (0-12)
[2021-06-16 16:56] LABS: Glucose Point of Care 96 mg/dL (70-110)
[2021-06-16 20:08] LABS: Hepatitis C Genotype RNA NOT DETECTED
[2021-06-16 21:51] LABS: Glucose Point of Care 119 mg/dL (70-110)
--- NOTE | 2021-06-16 21:53 | P.PN_ITS ---
Subjective Subjective: Interval history: She is overall doing little bit better. Denies shortness of breath currently. No chest pain. Was seen by ophthalmology last night. States they will be performing additional evaluation. Vitals/I&O/Wt Last Vital Signs Temp 98.0 F 06/16/21 20:00 Pulse 69 06/16/21 20:00 Resp 18 06/16/21 21:48 BP 139/95 06/16/21 20:00 Pulse Ox 92 06/16/21 20:00 06/16/21 06/16/21 06/16/21 06:59 14:59 22:59 Intake Total 320 / 1360 340 / 340 100 / 440 Output Total 250 / 500 250 / 250 Balance 70 / 860 340 / 340 -150 / 190 Weight last 48 hrs Weight 90.129 kg Weight 90.31 kg Physical Exam Const: COMMON NORMALS: no acute distress, patient oriented x3 and alert GENERAL APPEARANCE: anxious NUTRITIONAL APPEARANCE: overweight ORIENTATION/CONSCIOUSNESS: Yes awake HENMT: COMMON NORMALS: oropharynx normal Eye: PUPIL: Yes Pupils anisocoria (Both reactive to light directly and reciprocally. Reactive to accommodation) right pupil size greater than left Neck/C-Spine: COMMON NORMALS: no JVD Chest: OTHER: R IJ CVC Resp: COMMON NORMALS: normal respiratory effort and clear to auscultation soledad aterally AUSCULTATION: clear to auscultation bilaterally Cardio: COMMON NORMALS: no JVD, regular rhythm, S1 normal heart sound present, S2 normal heart sound present and No murmurs present (Cardio) RHYTHM: regular rhythm HEART SOUNDS: S1 normal heart sound present and S2 normal heart sound present GI: COMMON NORMALS: Normal to inspection, nondistended, normoactive bowel sounds present, Soft to palpation and non-tender PALPATION: Yes Soft to palpation Extremity: COMMON NORMALS: no joint enlargement and no pedal edema Neuro: COMMON NORMALS: patient oriented x3 and moves all extremities SENSORIUM/ORIENTATION: Yes alert Skin: LESIONS: lesion noted (Left heel shallow pressure ulceration with pink appearing base, no necr/mabel) WOUNDS: Yes wounds noted (Wounds l heel, thigh, sacrum ) OTHER: Erythema, sig improving. Soft tissue swelling bilateral lower extremity subsiding, shallow desquamation without bullae, healing, dry scales. No impetigo. No purulent drainage. Excoriations noted bilaterally. Urinary Catheter Management^: Cosme: Cath Placed During This Visit: yes, but has since been removed by the nurse Reason for Continuing Indwelling Catheter: Not indwelling catheter Urinary Catheter Date of Insertion: 06/16/21 Urinary Catheter Time of Insertion: 13:50 Date Urinary Catheter Removed: 06/16/21 Time Urinary Catheter Discontinued: 13:40 Data : 06/16/21 05:28 06/16/21 05:28 Micro: Microbiology 06/14/21 09:45 Gram Stain - Final Leg - #1 Tissue Culture - Preliminary Acinetobacter baumannii/haemol A&P Assessment and plan (1) Bacteremia: Sepsis resolved. Continue antibiotics. Tentative plan was to continue until 06/22. We are getting, however, Acinetobacter growing from bone biopsy on preliminary culture, suspect likely was the source of her bacteremia. Continue Primaxin for Acinetobacter, multidrug resistant. Continue linezolid for VRE. Follow-up final bone cultures. Status: Acute (2) Osteomyelitis of femur: Follow-up bone biopsy results - appears to be growing Acinetobacter from the bone biopsy. May have been the source of bacteremia. Status: Acute Qualifiers: Osteomyelitis type: other chronic Laterality: unspecified laterality Qualified Code(s): M86.659 - Other chronic osteomyelitis, unspecified thigh (3) Rash and nonspecific skin eruption: Gradually resolving, erythema mostly gone, excoriated/desquamated areas gradually healing with granulation tissue. Of midodrine, and also have been avoiding Lasix, and rash appears to be resolving. Not sure which of these agents may been contributing, but added both to adverse reaction list, as these rashes appear to be recurrent, and she appears to frequently inadvertently again end up on these medications. Skin punch biopsy unremarkable/unrevealing. Diffuse Rash - nonspecific skin eruption, now flaking off. Pruritic. She request for Benadryl. States it works better for her than Vistaril. Blood pressure is good. Hold midodrine which can also cause pruritus. Had rash previously. Was thought to be associated possibly with Lasix, although low cross-reactivity with sulfa usually, but rash is back and she appears to again have been on Lasix. Avoid Lasix. Possible allergic reaction, continues to have diffuse maculopapular rash, pruritic Has features of dress syndrome, elevated eosinophils Possibilities also include toxic epidermal necrolysis versus Jim Bladimir syndrome versus dress syndrome Hepatitis C positive, PCR negative. Status: Acute (4) Adrenal insufficiency: hydrocortisone. Hold Florinef. Monitor blood pressures. Currently blood pressure is good, midodrine stopped as can also cause pruritus. Status: Acute (5) Anisocoria: Appreciate nephrology evaluation. Pending additional relation. So far no obvious signs of septic seeding or thrombosis. Given variable sensitivity to light between the eyes concern for an optic nerve problem. Discussed findings of possible hydrocephalus with our radiologist. On review of prior images this appears to be a somewhat gradual process, and not impressive for obstructive hydrocephalus. Again no high-grade obstruction on MRI to suggest cord compression in the lumbar spine. Suspected more likely ex vacuo process. Today symptomatically also she is doing much better, no nausea or vomiting, no headache, or other progression of symptoms, and he is requesting to advance to solid diet. Discussed with her consideration of LP, although does have excoriations on her back from scratching. No overt cellulitis, but may be high risk for infection w ith transdermal transit. Without other meningeal signs. As hydrocephalus also possibly more likely ex vacuo, for now held off on lumbar puncture, but may have to pursue in case there are changes for the worse. Continue to hold fludrocortisone and albumin infusions. She has not been wanting to go back to MRI given she had a very miserable experience there with her lumbar scan. Unclear timing of onset of anisocoria. Not a clear cause of this. She states she is had diminished vision ever since the beginning of this hospitalization. Pupils do appear to be reactive to light. Status: Acute (6) Hydrocephalus: Discussed findings of possible hydrocephalus with our radiologist. On review of prior images this appears to be a somewhat gradual process, and not impressive for obstructive hydrocephalus. Again no high-grade obstruction on MRI to suggest cord compression in the lumbar spine. Suspected more likely ex vacuo process with atrophy advanced for age. Perhaps relating to alcohol use disorder. Small bifrontal benign hygromas. Status: Acute (7) Poor venous access: Status: Acute (8) Stage IV pressure ulcer: -Bilateral heels, left thigh -On hospital admission March 28, 2021, had debridement -Continue offloading, wound care, monitor closely Status: Acute (9) Acute kidney injury: Resolved. Hyponatremia resolved Admission Serum Creatinine 0.9 Cosme maintained for now due to wound Has good urine output Status: Acute (10) Alcohol intoxication: Currently not in withdrawal Discussed with her to avoid any alcohol. She verbalized understanding and agreement. Status: Acute (11) Sepsis: Sepsis resolved. Continue treatment for bacteremia as above. Bone biopsies obtained from osteomyelitis of left femur on 06/14. Follow-up culture. Continue Primaxin for Acinetobacter bacteremia, linezolid for VRE bacteremia. Mall[place] CT scan she has showed: -Posterior left upper thigh decubitus ulcer with associated inflammatory mass and changes in the adjacent femur compatible with osteomyelitis -The lumbar spine is stable in appearance compared to 10/02/2020. There are findings of degenerative spondylosis. The findings at L5-S1 could represent chronic disc space infection however there are no adjacent soft tissue changes and the appearance of this level has not changed since 10/02/2020. -MRI of the lumbar spine showed no secondary features suggestive of discitis or osteomyelitis Blood Culture: NTD Urine Culture: E. coli, Enterobacter cloacae sensitive to imipenem -Etiology, multifactorial, from bilateral lower extremity cellulitis, from thigh decubitus ulcer with osteomyelitis, bilateral heel sacral ulcers, UTI Status: Acute (12) DVT prophylaxis: Status: Acute Additional A&P Information Hypokalemia: Replaced Hypomagnesemia: Replaced Attestations Medical Necessity Statement*: Continue admission for assessment of management of Acinetobacter bacteremia resistant to multiple antibiotics, with difficult peripheral access, unable to obtain PICC line, needing continued antibiotic t herapy, additional assessment of anisocoria. 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
[2021-06-17] VITALS (13 sets, daily range): BP systolic 116–143; BP diastolic 57–90; PULSE 44–99; RESP 16–20; TEMP 36.4–36.9; O2SAT 92–98
[2021-06-17] MEDS: tizanidine 4 mg Tablet 2 MG PO ×2 (00:25→13:58)
[2021-06-17] MEDS: oxyCODONE 5 mg IR Tab/Cap PO (00:32)
[2021-06-17] MEDS: linezolid 600 mg Tablet PO ×2 (05:45→17:37)
[2021-06-17] MEDS: levothyroxine 100 mcg Tablet 300 MCG PO (05:46)
[2021-06-17] MEDS: folic acid 1 mg Tablet PO (05:46)
[2021-06-17] MEDS: thiamine 100 mg Tablet PO (05:46)
[2021-06-17] MEDS: midodrine 5 mg TABLET 10 MG PO ×4 (05:46→22:56)
[2021-06-17 06:16] LABS: Basophils # 0.1 10^3/uL (0.0-0.1); Basophils % 2.2 %; Eosinophils # 0.7 10^3/uL (0.0-0.8); Eosinophils % 10.7 %; Hematocrit 31.6 % (37.0-47.0); Hemoglobin 9.5 g/dL (11.5-15.3); Lymphocytes # 1.8 10^3/uL (0.8-4.8); Lymphocytes % 27.6 %; Mean Corpuscular HGB Conc 30.1 g/dL (30.0-36.0); Mean Corpuscular Hemoglobin 28.6 pg (28.0-34.0); Mean Corpuscular Volume 95.2 fl (81-99); Mean Platelet Volume 10.3 fL (7.4-10.4); Monocytes # 0.6 10^3/uL (0.2-0.9); Monocytes % 8.6 %; Neutrophils # 3.25 10^3/uL (1.8-7.7); Neutrophils % 50.6 %; Nucleated Red Blood Cells % 0 %; Platelet Count 248 10^3/cmm (130-400); Red Blood Count 3.32 10^6/uL (4.1-5.3); White Blood Count 6.4 10^3/uL (4.0-10.0)
[2021-06-17 06:26] LABS: Glucose Point of Care 88 mg/dL (70-110)
[2021-06-17] MEDS: ondansetron 2 mg/ML SDV 2 mL 4 MG IVP (06:45)
[2021-06-17 06:47] LABS: Anion Gap 8.1 (5-19); Blood Urea Nitrogen 4 mg/dL (6-20); Calcium 8.2 mg/dL (8.5-10.5); Carbon Dioxide 30 mmol/L (22-29); Chloride 112 mmol/L (98-107); Glomerular Filtration Rate 132.2 mL/min (90-130); Glucose 91 mg/dL (65-115); Osmolality Calculated 298 mOsm/kg (285-295); Potassium 4.1 mmol/L (3.5-5.1); Sodium 146 mmol/L (136-145)
[2021-06-17] MEDS: apixaban 5 mg Tablet 2.5 MG PO ×2 (09:16→21:05)
[2021-06-17] MEDS: hydrocortisone 10 mg Tablet 5 MG PO ×2 (09:17→17:37)
[2021-06-17] MEDS: pantoprazole DR 40 mg Tablet PO (09:18)
[2021-06-17] MEDS: levETIRAcetam 500 mg Tablet 1000 MG PO ×2 (09:18→21:05)
[2021-06-17] MEDS: gabapentin 100 mg Capsule 200 MG PO ×3 (09:18→21:07)
[2021-06-17] MEDS: ferrous gluconate 324 mg Tablet PO ×2 (09:19→21:05)
[2021-06-17] MEDS: fluticasone nasal spray 16gm Btl 1 SPRAY INTRANASAL ×2 (09:19→21:12)
[2021-06-17] MEDS: CLONazepam 0.5 mg Tablet 0.25 MG PO ×2 (09:19→22:56)
[2021-06-17] MEDS: nystatin powder 15 gm Btl 1 APPLIC TOPICAL ×2 (09:22→17:38)
[2021-06-17] MEDS: albuterol 8 gm MDI 2 PUFF INHALATION (09:43)
[2021-06-17 11:13] LABS: Glucose Point of Care 115 mg/dL (70-110)
[2021-06-17 17:10] LABS: Glucose Point of Care 133 mg/dL (70-110)
[2021-06-17 19:20] LABS: Glucose Point of Care 108 mg/dL (70-110)
--- NOTE | 2021-06-17 19:26 | PC.NURSE ---
i did report to nurse about low pulse 46 and that was a recheck because the first check was 42
--- NOTE | 2021-06-17 21:23 | P.PN_ITS ---
Subjective Subjective: Interval history: She again is having vomiting after eating. Declines additional imaging tonight. Agrees to do abdominal series in the morning. States otherwise is doing okay. Is visited by her son who is napping in the recliner beside her. Vitals/I&O/Wt Last Vital Signs Temp 98.4 F 06/17/21 19:25 Pulse 46 L 06/17/21 19:25 Resp 18 06/17/21 21:11 BP 143/74 06/17/21 19:25 Pulse Ox 98 06/17/21 19:25 06/17/21 06/17/21 06/17/21 06:59 14:59 22:59 Intake Total 320 / 320 100 / 420 Output Total 850 / 850 Balance 320 / 320 -750 / -430 Weight last 48 hrs Weight 94.574 kg Weight 90.129 kg Physical Exam Narrative: EXAM NARRATIVE: Visited by her son. Const: COMMON NORMALS: no acute distress, patient oriented x3 and alert GENERAL APPEARANCE: anxious NUTRITIONAL APPEARANCE: overweight ORIENTATION/CONSCIOUSNESS: Yes awake HENMT: COMMON NORMALS: oropharynx normal Eye: PUPIL: Yes Pupils anisocoria (Both reactive to light directly and reciprocally. Reactive to accommodation) right pupil size greater than left Neck/C-Spine: COMMON NORMALS: no JVD Chest: OTHER: R IJ CVC Resp: COMMON NORMALS: normal respiratory effort and clear to auscultation bilaterally AUSCULTATION: clear to auscultation bilaterally Cardio: COMMON NORMALS: no JVD, regular rhythm, S1 normal heart sound present, S2 normal heart sound present and No murmurs present (Cardio) RHYTHM: regular rhythm HEART SOUNDS: S1 normal heart sound present and S2 normal heart sound present GI: COMMON NORMALS: Normal to inspection, nondistended, normoactive bowel angela nds present, Soft to palpation and non-tender PALPATION: Yes Soft to palpation Extremity: COMMON NORMALS: no joint enlargement and no pedal edema Neuro: COMMON NORMALS: patient oriented x3 and moves all extremities SENSORIUM/ORIENTATION: Yes alert Skin: LESIONS: lesion noted (Left heel shallow pressure ulceration with pink appearing base, no necr/mabel) WOUNDS: Yes wounds noted (Wounds l heel, thigh, sacrum ) OTHER: Erythema, sig improving. Resolving soft tissue swelling bilateral lower extremity subsiding, healing shallow desquamation without bullae, healing, resolved dry scales. No impetigo. No purulent drainage. Excoriations resolving. Urinary Catheter Management^: Cosme: Cath Placed During This Visit: yes, but has since been removed by the nurse Reason for Continuing Indwelling Catheter: Assist healing open wound Urinary Catheter Date of Insertion: 06/16/21 Urinary Catheter Time of Insertion: 13:50 Date Urinary Catheter Removed: 06/16/21 Time Urinary Catheter Discontinued: 13:40 Data : 06/17/21 06:00 06/17/21 06:00 Micro: Microbiology 06/14/21 09:45 Gram Stain - Final Leg - #1 Tissue Culture - Final Acinetobacter baumannii/haemol A&P Assessment and plan (1) Bacteremia: Sepsis resolved. Continue antibiotics. Tentative plan was to continue until 06/22. We are getting, however, Acinetobacter growing from bone biopsy on preliminary culture, suspect likely was the source of her bacteremia. Continue Primaxin for Acinetobacter, multidrug resistant. Continue linezolid for VRE. Confirm with infectious disease when available with regards to duration of a ntibiotic in light of bone biopsy culture results. If treatment needed for 6 weeks, may require other means of IV access. Possible consideration of attempted midline again, or discussion with surgery regarding possible other access options which will allow her to discharge to nursing home facility or home. However, there is also high risk of infection of bone as long as the wound remains open. Status: Acute (2) Vomiting: Reports again vomiting after eating. Does have history of gastritis. No history of diabetes or gastroparesis. Some right lower quadrant chronic discomfort which intermittently reappears with multiple prior CT scans. De-escalate diet to clear liquids for now. Increase PPI to twice daily. Consider gastric emptying study when she is doing little better. EGD 07/27/2020 with moderate size hiatal hernia without obstruction or gangrene. Mild gastritis in antrum. Possibly contributing to her symptoms. Follow-up with additional abdominal series in the morning. Consider work-up im aging depending on condition. Status: Acute (3) Osteomyelitis of femur: Follow-up bone biopsy results - appears to be growing Acinetobacter from the bone biopsy. May have been the source of bacteremia. Needs continued wound care follow-up. Wound culture Continued risk of infection of bone as long as the wound remains open. Status: Acute Qualifiers: Osteomyelitis type: other chronic Laterality: unspecified laterality Qualified Code(s): M86.659 - Other chronic osteomyelitis, unspecified thigh (4) Anisocoria: Appreciate ophthalmology consultation by Dr Rai. Note not in due to reported difficulties w access to chart. Pending additional evaluation. So far no obvious signs of septic seeding or thrombosis. Given variable sensitivity to light between the eyes concern for an optic nerve problem. Please contact with any questions. Discussed findings of possible hydrocephalus with our radiologist. On review of prior images this appears to be a somewhat gradual process, and not impressive for obstructive hydrocephalus. Again no high-grade obstruction on MRI to suggest cord compression in the lumbar spine. Suspected more likely ex vacuo process. Today symptomatically also she is doing much better, no nausea or vomiting, no headache, or other progression of symptoms, and he is requesting to advance to solid diet. Discussed with her consideration of LP, although does have excoriations on her back from scratching. No overt cellulitis, but may be high risk for infection w ith transdermal transit. Without other meningeal signs. As hydrocephalus also possibly more likely ex vacuo, for now held off on lumbar puncture, but may have to pursue in case there are changes for the worse. Continue to hold fludrocortisone and albumin infusions. She has not been wanting to go back to MRI given she had a very miserable experience there with her lumbar scan. Unclear timing of onset of anisocoria. Not a clear cause of this. She states she is had diminished vision ever since the beginning of this hospitalization. Pupils do appear to be reactive to light. Status: Acute (5) Rash and nonspecific skin eruption: Gradually resolving, erythema mostly gone, excoriated/desquamated areas gradually healing with granulation tissue. Of midodrine, and also have been avoiding Lasix, and rash appears to be resolving. Not sure which of these agents may been contributing, but added both to adverse reaction list, as these rashes appear to be recurrent, and she appears to frequently inadvertently again end up on these medications. Skin punch biopsy unremarkable/unrevealing. Diffuse Rash - nonspecific skin eruption, now flaking off. Pruritic. She request for Benadryl. States it works better for her than Vistaril. Blood pressure is good. Hold midodrine which can also cause pruritus. Had rash previously. Was thought to be associated possibly with Lasix, although low cross-reactivity with sulfa usually, but rash is back and she appears to again have been on Lasix. Avoid Lasix. Possible allergic reaction, continues to have diffuse maculopapular rash, pruritic Has features of dress syndrome, elevated eosinophils Possibilities also include toxic epidermal necrolysis versus Jim Bladimir syndrome versus dress syndrome Hepatitis C positive, PCR negative. Status: Acute (6) Adrenal insufficiency: hydrocortisone. Hold Florinef. Monitor blood pressures. Currently blood pressure is good, midodrine stopped as can also cause pruritus. Status: Acute (7) Hydrocephalus: Discussed findings of possible hydrocephalus with our radiologist. On review of prior images this appears to be a somewhat gradual process, and not impressive for obstructive hydrocephalus. Again no high-grade obstruction on MRI to suggest cord compression in the lumbar spine. Suspected more likely ex vacuo process with atrophy advanced for age. Perhaps relating to alcohol use disorder. Small bifrontal benign hygromas. Consider follow-up with neurology. Status: Acute (8) Poor venous access: Status: Acute (9) Stage IV pressure ulcer: -Bilateral heels, left thigh -On hospital admission March 28, 2021, had debridement -Continue offloading, wound care, monitor closely Status: Acute (10) Acute kidney injury: Resolved. Hyponatremia resolved Admission Serum Creatinine 0.9 Cosme maintained for now due to wound Has good urine output Status: Acute (11) Alcohol intoxication: Currently not in withdrawal Discussed with her to avoid any alcohol. She verbalized understanding and agreement. Status: Acute (12) Sepsis: Sepsis resolved. Continue treatment for bacteremia as above. Bone biopsies obtained from osteomyelitis of left femur on 06/14. Follow-up culture. Continue Primaxin for Acinetobacter bacteremia, linezolid for VRE bacteremia. [place] CT scan she has showed: -Posterior left upper thigh decubitus ulcer with associated inflammatory mass and changes in the adjacent femur compatible with osteomyelitis -The lumbar spine is stable in appearance compared to 10/02/2020. There are findings of degenerative spondylosis. The findings at L5-S1 could represent chronic disc space infection however there are no adjacent soft tissue changes and the appearance of this level has not changed since 10/02/2020. -MRI of the lumbar spine showed no secondary features suggestive of discitis or osteomyelitis Blood Culture: NTD Urine Culture: E. coli, Enterobacter cloacae sensitive to imipenem -Etiology, multifactorial, from bilateral lower extremity cellulitis, from thigh decubitus ulcer with osteomyelitis, bilateral heel sacral ulcers, UTI Status: Acute (13) DVT prophylaxis: Status: Acute Additional A&P Information Hypokalemia: Replaced Hypomagnesemia: Replaced Attestations Medical Necessity Statement*: Continue admission for assessment management of multidrug-resistant organism bacteremia requiring IV antibiotics via central line due to inability to obtain peripheral or PICC access. 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
[2021-06-18] VITALS (12 sets, daily range): BP systolic 94–143; BP diastolic 61–76; PULSE 60–90; RESP 8–18; TEMP 36.4–37.1; O2SAT 91–97
[2021-06-18 04:58] LABS: Cryoglobulins Qualitative None Detected (None Detected)
[2021-06-18] MEDS: linezolid 600 mg Tablet PO ×2 (05:58→16:31)
[2021-06-18] MEDS: levothyroxine 100 mcg Tablet 300 MCG PO (05:58)
[2021-06-18] MEDS: thiamine 100 mg Tablet PO (05:59)
[2021-06-18] MEDS: folic acid 1 mg Tablet PO (05:59)
[2021-06-18] MEDS: midodrine 5 mg TABLET 10 MG PO ×3 (05:59→16:31)
[2021-06-18 06:36] LABS: Glucose Point of Care 84 mg/dL (70-110)
[2021-06-18 06:43] LABS: Basophils # 0.2 10^3/uL (0.0-0.1); Basophils % 2.8 %; Eosinophils # 0.8 10^3/uL (0.0-0.8); Eosinophils % 13.1 %; Hematocrit 31.7 % (37.0-47.0); Hemoglobin 9.4 g/dL (11.5-15.3); Lymphocytes # 1.5 10^3/uL (0.8-4.8); Mean Corpuscular HGB Conc 29.7 g/dL (30.0-36.0); Mean Corpuscular Hemoglobin 28.1 pg (28.0-34.0); Mean Corpuscular Volume 94.9 fl (81-99); Mean Platelet Volume 10.7 fL (7.4-10.4); Monocytes # 0.4 10^3/uL (0.2-0.9); Monocytes % 7.4 %; Neutrophils % 51.5 %; Nucleated Red Blood Cells % 0 %; Platelet Count 236 10^3/cmm (130-400); Red Blood Count 3.34 10^6/uL (4.1-5.3); White Blood Count 5.8 10^3/uL (4.0-10.0)
[2021-06-18 07:11] LABS: Alanine Aminotransferase 7 U/L (0-33); Albumin Level 3.1 g/dL (3.5-5.2); Alkaline Phosphatase 111 IU/L (35-105); Aspartate Amino Transferase 11 U/L (0-32); Blood Urea Nitrogen 5 mg/dL (6-20); Carbon Dioxide 30 mmol/L (22-29); Creatinine Clr Calc Pharmacy 152.1045; Globulin 2.4 g/dL (1.3-4.6); Glomerular Filtration Rate 132.2 mL/min (90-130); Glucose 76 mg/dL (65-115); Total Bilirubin 0.5 mg/dL (0.15-1.2); Total Protein 5.5 g/dL (6.6-8.7)
[2021-06-18 07:50] LABS: Anion Gap 10.3 (5-19); Chloride 110 mmol/L (98-107); Osmolality Calculated 298 mOsm/kg (285-295); Potassium 4.3 mmol/L (3.5-5.1); Sodium 146 mmol/L (136-145)
--- NOTE | 2021-06-18 08:00 | XRR_ITS ---
PROCEDURE INFORMATION: Exam: XR Abdomen Exam date and time: 06/18/2021 8:00 AM Age: 46 years old Clinical indication: Vomiting; Prior surgery; Additional info: Vomiting after food TECHNIQUE: Imaging protocol: XR of the abdomen. Views: 2 Views. Upright and supine views. COMPARISON: CT chest abd pel wo con 03/13/2021 7:42 PM FINDINGS: Tubes, catheters and devices: Right IJ approach MediPort is in satisfactory position, with distal tip at the level of the SVC/RA junction. Heart/Mediastinum: Stable cardiomediastinal silhouette. Lungs: Low lung volumes. There is a small right pleural effusion with adjacent atelectasis. Pneumonia should be excluded clinically. No pneumothorax. Gastrointestinal tract: Nonspecific bowel gas pattern. No air-fluid levels. Intraperitoneal space: Normal. No free air. Organs: Cholecystectomy clips project over the right upper quadrant. Vasculature: And IVC filter projects over the upper lumbar spine. Bones/joints: Unremarkable for age. XR/XR acute abdomen series [id number] IMPRESSION: 1. Small right pleural effusion with adjacent atelectasis. Pneumonia should be excluded clinically. 2. Nonspecific bowel gas pattern. COMMENTS: For patients with an IVC filter, recommend assessment for a management plan for the patient's IVC filter. If there is no established management plan, recommend referral to an interventional clinician on a nonemergent basis for evaluation. Radiation Dose CTDIVOL = (mGy): DLP = (mGy-cm)
[2021-06-18 08:01] LABS: Magnesium 1.6 mg/dL (1.7-2.3)
[2021-06-18] MEDS: hydrocortisone 10 mg Tablet 5 MG PO ×2 (08:16→18:44)
[2021-06-18] MEDS: diphenhydrAMINE 25 mg Capsule PO (08:16)
[2021-06-18] MEDS: pantoprazole DR 40 mg Tablet PO ×2 (08:17→18:45)
[2021-06-18] MEDS: apixaban 5 mg Tablet 2.5 MG PO ×2 (08:17→20:38)
[2021-06-18] MEDS: ferrous gluconate 324 mg Tablet PO ×2 (08:17→20:37)
[2021-06-18] MEDS: levETIRAcetam 500 mg Tablet 1000 MG PO ×2 (08:17→20:39)
[2021-06-18] MEDS: fluticasone nasal spray 16gm Btl 1 SPRAY INTRANASAL (08:18)
[2021-06-18] MEDS: gabapentin 100 mg Capsule 200 MG PO ×3 (08:18→20:37)
[2021-06-18] MEDS: albuterol 8 gm MDI 2 PUFF INHALATION (09:13)
[2021-06-18] MEDS: nystatin powder 15 gm Btl 1 APPLIC TOPICAL ×2 (09:51→18:46)
[2021-06-18 10:58] LABS: Glucose Point of Care 83 mg/dL (70-110)
--- NOTE | 2021-06-18 11:48 | PC.SOCIAL ---
IMM Updated Updated pt on Pg 2 IMM. No questions voiced. Provided pt a copy. Initialed, dated, & timed copy in chart.
[2021-06-18] MEDS: CLONazepam 0.5 mg Tablet 0.25 MG PO (16:31)
[2021-06-18 17:16] LABS: Glucose Point of Care 150 mg/dL (70-110)
--- NOTE | 2021-06-18 17:26 | P.PN_ITS ---
Subjective Subjective: Interval history: Patient was seen this morning, her ex- is at bedside, she tells me that she is working with physical therapy, she is planning on going home, denies any fevers, no chills, no chest pain overnight, no nausea, no vomiting Vitals/I&O/Wt Last Vital Signs Temp 98.7 F 06/18/21 16:00 Pulse 89 06/18/21 16:00 Resp 18 06/18/21 16:00 BP 112/73 06/18/21 16:00 Pulse Ox 93 06/18/21 16:00 06/18/21 06/18/21 06/18/21 06:59 14:59 22:59 Intake Total 560 / 1180 1300 / 1300 100 / 1400 Output Total 480 / 1330 Balance 80 / -150 1300 / 1300 100 / 1400 Weight last 48 hrs Weight 94.574 kg Physical Exam Const: COMMON NORMALS: no acute distress and patient oriented x3 HENMT: COMMON NORMALS: normocephalic HEAD & SCALP: normocephalic Resp: COMMON NORMALS: normal respiratory effort, No retractions, No use of accessory muscles and clear to auscultation bilaterally AUSCULTATION: clear to auscultation bilaterally Cardio: COMMON NORMALS: regular rate, regular rhythm, S1 normal heart sound present and S2 normal heart sound present RATE: regular rate RHYTHM: regular rhythm HEART SOUNDS: S1 normal heart sound present and S2 normal heart sound present GI: COMMON NORMALS: Normal to inspection, nondistended, normoactive bowel sounds present, Soft to palpation and non-tender PALPATION: Yes Soft to palpation Extremity: COMMON NORMALS: no pedal edema Neuro: COMMON NORMALS: patient oriented x3 Psych: COMMON NORMALS: mental status grossly normal Urinary Catheter Management^: Cosme: Cath Placed During This Visit: yes, but has since been removed by the nurse Reason for Continuing Indwelling Catheter: Assist Healing of Perineal & Sacral Wounds- Incontinent Patients Urinary Catheter Date of Insertion: 06/16/21 Urinary Catheter Time of Insertion: 13:50 Date Urinary Catheter Removed: 06/16/21 Time Urinary Catheter Discontinued: 13:40 Data : 06/18/21 06:15 06/18/21 06:15 A&P Assessment and plan (1) Bacteremia: Sepsis resolved. Continue antibiotics. Tentative plan was to continue until 06/22. We are getting, however, Acinetobacter growing from bone biopsy on preliminary culture, suspect likely was the source of her bacteremia. Continue Primaxin for Acinetobacter, multidrug resistant. Continue linezolid for VRE. Confirm with infectious disease when available with regards to duration of antibiotic in light of bone biopsy culture results. If treatment needed for 6 weeks, may require other means of IV access, likely port, will solve out full susceptibilities. Possible consideration of attempted midline again, or discussion with surgery regarding possible other access options which will allow her to discharge to long term facility or home. However, there is also high risk of infection of bone as long as the wound remains open. Status: Acute (2) Vomiting: Reports again vomiting after eating. Does have history of gastritis. No history of diabetes or gastroparesis. Some right lower quadrant chronic discomfort which intermittently reappears with multiple prior CT scans. De-escalate diet to clear liquids for now. Increase PPI to twice daily. Consider gastric emptying study when she is doing little better. EGD 07/27/2020 with moderate size hiatal hernia without obstruction or gangrene. Mild gastritis in antrum. Possibly contributing to her symptoms. Follow-up with additional abdominal series in the morning. Consider work-up imaging depending on condition. Status: Acute (3) Osteomyelitis of femur: Follow-up bone biopsy results - appears to be growing Acinetobacter from the bone biopsy. May have been the source of bacteremia. Needs continued wound care follow-up. Wound culture Continued risk of infection of bone as long as the wound remains open. Status: Acute Qualifiers: Osteomyelitis type: other chronic Laterality: unspecified laterality Qualified Code(s): M86.659 - Other chronic osteomyelitis, unspecified thigh (4) Anisocoria: Appreciate ophthalmology consultation by Dr Rai. Note not in due to reported difficulties w access to chart. Pending additional evaluation. So far no obvious signs of septic seeding or thrombosis. Given variable sensitivity to light between the eyes concern for an optic nerve problem. Please contact with any questions. Discussed findings of possible hydrocephalus with our radiologist. On review of prior images this appears to be a somewhat gradual process, and not impressive for obstructive hydrocephalus. Again no high-grade obstruction on MRI to suggest cord compression in the lumbar spine. Suspected more likely ex vacuo process. Today symptomatically also she is doing much better, no nausea or vomiting, no headache, or other progression of symptoms, and he is requesting to advance to solid diet. Discussed with her consideration of LP, although does have excoriations on her back from scratching. No overt cellulitis, but may be high risk for infection with transdermal transit. Without other meningeal signs. As hydrocephalus also possibly more likely ex vacuo, for now held off on lumbar puncture, but may have to pursue in case there are changes for the worse. Continue to hold fludrocortisone and albumin infusions. She has not been wanting to go back to MRI given she had a very miserable ex perience there with her lumbar scan. Unclear timing of onset of anisocoria. Not a clear cause of this. She states she is had diminished vision ever since the beginning of this hospitalization. Pupils do appear to be reactive to light. Status: Acute (5) Rash and nonspecific skin eruption: Gradually resolving, erythema mostly gone, excoriated/desquamated areas gradually healing with granulation tissue. Of midodrine, and also have been avoiding Lasix, and rash appears to be resolving. Not sure which of these agents may been contributing, but added both to adverse reaction list, as these rashes appear to be recurrent, and she appears to frequently inadvertently again end up on these medications. Skin punch biopsy unremarkable/unrevealing. Diffuse Rash - nonspecific skin eruption, now flaking off. Pruritic. She request for Benadryl. States it works better for her than Vistaril. Blood pressure is good. Hold midodrine which can also cause pruritus. Had rash previously. Was thought to be associated possibly with Lasix, although low cross-reactivity with sulfa usually, but rash is back and she appears to again have been on Lasix. Avoid Lasix. Possible allergic reaction, continues to have diffuse maculopapular rash, pruritic Has features of dress syndrome, elevated eosinophils Possibilities also include toxic epidermal necrolysis versus Jim Bladimir syndrome versus dress syndrome Hepatitis C positive, PCR negative. Status: Acute (6) Adrenal insufficiency: hydrocortisone. Hold Florinef. Monitor blood pressures. Currently blood pressure is good, midodrine stopped as can also cause pruritus. Status: Acute (7) Hydrocephalus: Discussed findings of possible hydrocephalus with our radiologist. On review of prior images this appears to be a somewhat gradual process, and not impressive for obstructive hydrocephalus. Again no high-grade obstruction on MRI to suggest cord compression in the lumbar spine. Suspected more likely ex vacuo process with atrophy advanced for age. Perhaps relating to alcohol use disorder. Small bifrontal benign hygromas. Consider follow-up with neurology. Status: Acute (8) Poor venous access: Status: Acute (9) Stage IV pressure ulcer: -Bilateral heels, left thigh -On hospital admission March 28, 2021, had debridement -Continue offloading, wound care, monitor closely Status: Acute (10) Acute kidney injury: Resolved. Hyponatremia resolved Admission Serum Creatinine 0.5 Cosme maintained for now due to wound Has good urine output Status: Acute (11) Alcohol intoxication: Currently not in withdrawal Discussed with her to avoid any alcohol. She verbalized understanding and agreement. Status: Acute (12) Sepsis: Sepsis resolved. Continue treatment for bacteremia as above. Bone biopsies obtained from osteomyelitis of left femur on 06/14. Follow-up culture. Continue Primaxin for Acinetobacter bacteremia, linezolid for VRE bacteremia. Mall[place] CT scan she has showed: -Posterior left upper thigh decubitus ulcer with associated inflammatory mass and changes in the adjacent femur compatible with osteomyelitis -The lumbar spine is stable in appearance compared to 10/02/2020. There are findings of degenerative spondylosis. The findings at L5-S1 could represent chronic disc space infection however there are no adjacent soft tissue changes and the appearance of this level has not changed since 10/02/2020. -MRI of the lumbar spine showed no secondary features suggestive of discitis or osteomyelitis Blood Culture: Initially seen in [facility], repeat negative Urine Culture: E. 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
[2021-06-18] MEDS: insulin lispro 100 unit/1 mL SUBCUT (18:44)
[2021-06-18 19:20] LABS: Glucose Point of Care 82 mg/dL (70-110)
[2021-06-18] MEDS: tizanidine 4 mg Tablet 2 MG PO (20:37)
--- NOTE | 2021-06-18 20:53 | PC.NURSE ---
Non-compliant with diet orders. 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
[2021-06-19] VITALS (11 sets, daily range): BP systolic 102–122; BP diastolic 65–84; PULSE 61–83; RESP 16–20; TEMP 36.4–36.8; O2SAT 90–97
[2021-06-19] MEDS: thiamine 100 mg Tablet PO (05:49)
[2021-06-19] MEDS: levothyroxine 100 mcg Tablet 300 MCG PO (05:49)
[2021-06-19] MEDS: folic acid 1 mg Tablet PO (05:49)
[2021-06-19] MEDS: linezolid 600 mg Tablet PO ×2 (05:56→17:24)
[2021-06-19 06:37] LABS: Glucose Point of Care 83 mg/dL (70-110)
[2021-06-19 06:42] LABS: Basophils # 0.1 10^3/uL (0.0-0.1); Basophils % 1.9 %; Eosinophils # 0.5 10^3/uL (0.0-0.8); Eosinophils % 12.6 %; Hematocrit 29.1 % (37.0-47.0); Hemoglobin 8.7 g/dL (11.5-15.3); Lymphocytes # 1.2 10^3/uL (0.8-4.8); Lymphocytes % 28.2 %; Mean Corpuscular HGB Conc 29.9 g/dL (30.0-36.0); Mean Corpuscular Hemoglobin 28.7 pg (28.0-34.0); Mean Platelet Volume 10.7 fL (7.4-10.4); Monocytes # 0.3 10^3/uL (0.2-0.9); Monocytes % 7.5 %; Neutrophils # 2.13 10^3/uL (1.8-7.7); Neutrophils % 49.6 %; Nucleated Red Blood Cells % 0 %; Platelet Count 186 10^3/cmm (130-400); Red Blood Count 3.03 10^6/uL (4.1-5.3); White Blood Count 4.3 10^3/uL (4.0-10.0)
[2021-06-19 07:14] LABS: Alanine Aminotransferase < 5 U/L (0-33); Albumin Level 2.9 g/dL (3.5-5.2); Alkaline Phosphatase 99 IU/L (35-105); Anion Gap 10.9 (5-19); Aspartate Amino Transferase 10 U/L (0-32); Blood Urea Nitrogen 5 mg/dL (6-20); Calcium 8.1 mg/dL (8.5-10.5); Carbon Dioxide 29 mmol/L (22-29); Chloride 109 mmol/L (98-107); Globulin 2.4 g/dL (1.3-4.6); Glomerular Filtration Rate 107.2 mL/min (90-130); Glucose 83 mg/dL (65-115); Magnesium 1.4 mg/dL (1.7-2.3); Osmolality Calculated 296 mOsm/kg (285-295); Phosphorus 3.8 mg/dL (2.5-4.5); Potassium 3.9 mmol/L (3.5-5.1); Sodium 145 mmol/L (136-145); Total Bilirubin 0.5 mg/dL (0.15-1.2); Total Protein 5.3 g/dL (6.6-8.7)
[2021-06-19] MEDS: gabapentin 100 mg Capsule 200 MG PO ×3 (08:19→21:05)
[2021-06-19] MEDS: levETIRAcetam 500 mg Tablet 1000 MG PO ×2 (08:19→21:08)
[2021-06-19] MEDS: pantoprazole DR 40 mg Tablet PO ×2 (08:19→17:25)
[2021-06-19] MEDS: ferrous gluconate 324 mg Tablet PO ×2 (08:19→21:07)
[2021-06-19] MEDS: nystatin powder 15 gm Btl 1 APPLIC TOPICAL ×2 (08:19→18:18)
[2021-06-19] MEDS: fluticasone nasal spray 16gm Btl 1 SPRAY INTRANASAL (08:20)
[2021-06-19] MEDS: apixaban 5 mg Tablet 2.5 MG PO ×2 (08:20→21:03)
[2021-06-19] MEDS: hydrocortisone 10 mg Tablet 5 MG PO ×2 (08:20→17:24)
[2021-06-19] MEDS: CLONazepam 0.5 mg Tablet 0.25 MG PO ×2 (08:23→21:12)
[2021-06-19] MEDS: diphenhydrAMINE 25 mg Capsule PO (08:23)
[2021-06-19] MEDS: albuterol 8 gm MDI 2 PUFF INHALATION (08:36)
[2021-06-19] MEDS: ondansetron 2 mg/ML SDV 2 mL 4 MG IVP (09:14)
[2021-06-19] MEDS: tizanidine 4 mg Tablet 2 MG PO ×2 (09:14→21:12)
[2021-06-19] MEDS: midodrine 5 mg TABLET 10 MG PO ×2 (10:07→17:24)
[2021-06-19] MEDS: magnesium sulfate premix 2 GM/50 ML PIGGYBACK IV (10:08)
[2021-06-19] MEDS: FUROsemide 10 mg/mL SDV 4mL 40 MG IVP (10:08)
[2021-06-19 11:59] LABS: Glucose Point of Care 92 mg/dL (70-110)
[2021-06-19] MEDS: oxyCODONE 5 mg IR Tab/Cap 10 MG PO ×2 (12:20→18:17)
[2021-06-19 17:01] LABS: Glucose Point of Care 104 mg/dL (70-110)
--- NOTE | 2021-06-19 17:41 | P.PN_ITS ---
Subjective Subjective: Interval history: Patient was seen this morning, she is ambulating with physical therapy, patient was examined at bedside, she sitting up in bed, complaining of significant pain, after ambulation this morning, I advised her that her bone marrow biopsies have been positive for acinetobacter, and there might be a possibility that she might require IV antibiotics she is quite upset, I advised her that we are going to send out sensitivities, and we will know in the next few days, she tells me that she is doing her best to try to get better, she does not want to go to a jail, she tells me that one of her family members is getting a triple bypass and she really wants to be at home for them, Medications: Reviewed: Yes Vitals/I&O/Wt Last Vital Signs Temp 97.6 F 06/19/21 15:29 Pulse 68 06/19/21 15:29 Resp 20 H 06/19/21 15:29 BP 108/74 06/19/21 15:29 Pulse Ox 93 06/19/21 15:29 06/19/21 06/19/21 06/19/21 06:59 14:59 22:59 Intake Total 320 / 2440 630 / 630 Output Total 360 / 1210 2550 / 2550 Balance -40 / 1230 -1920 / -1920 Physical Exam Const: COMMON NORMALS: no acute distress ORIENTATION/CONSCIOUSNESS: Yes awake, Yes oriented to person and Yes oriented to place Resp: COMMON NORMALS: normal respiratory effort, No retractions, No use of accessory muscles and clear to auscultation bilaterally AUSCULTATION: clear to auscultation bilaterally Cardio: COMMON NORMALS: regular rate, regular rhythm, S1 normal heart sound present and S2 normal heart sound present RATE: regular rate RHYTHM: regular rhythm HEART SOUNDS: S1 normal heart sound present and S2 normal heart sound present GI: COMMON NORMALS: Normal to inspection, nondistended, normoactive bowel sounds present, Soft to palpation and non-tender PALPATION: Yes Soft to pal pation Extremity: COMMON NORMALS: no pedal edema OTHER: Right arm PICC line Neuro: SENSORIUM/ORIENTATION: Yes oriented to person and Yes oriented to place Skin: NARRATIVE SKIN EXAM: Bilateral shins, extending up to the knees, erythema, swelling, chronic skin changes significantly improved Bilateral heels, Right heel, 1 x 1 cm heel DTI, no visible bone Left heel, 1 x 1 cm heel, DTI, lateral to the heel, Right forearm, 1 x 1 cm linear, DTI Left, thigh, posterior, 1 x 2 cm, by 4 cm DTI, with tunneling to the bone, packe d Urinary Catheter Management^: Cosme: Cath Placed During This Visit: yes, but has since been removed by the nurse Reason for Continuing Indwelling Catheter: Assist Healing of Perineal & Sacral Wounds- Incontinent Patients Urinary Catheter Date of Insertion: 06/16/21 Urinary Catheter Time of Insertion: 13:50 Date Urinary Catheter Removed: 06/16/21 Time Urinary Catheter Discontinued: 13:40 Data : 06/19/21 06:00 06/19/21 06:00 A&P Assessment and plan (1) Bacteremia: Sepsis resolved. Continue antibiotics. Tentative plan was to continue until 06/22. however, Acinetobacter growing from bone biopsy on preliminary culture, suspect likely was the source of her bacteremia. Continue Primaxin for Acinetobacter, multidrug resistant. Continue linezolid for VRE. Confirm with infectious disease when available with regards to duration of antibiotic in light of bone biopsy culture results. If treatment needed for 6 weeks, may require other means of IV access, likely port, will send full susceptibilities. Possible consideration of attempted midline again, or discussion with surgery regarding possible other access options which will allow her to discharge to fpc facility or home. However, there is also high risk of infection of bone as long as the wound remains open. Plan is on discharge home, with home health care, possible IV antibiotics Status: Acute (2) Vomiting: Reports again vomiting after eating. Does have history of gastritis. No history of diabetes or gastroparesis. Some right lower quadrant chronic discomfort which intermittently reappears with multiple prior CT scans. De-escalate diet to clear liquids for now. Increase PPI to twice daily. Consider gastric emptying study when she is doing little better. EGD 07/27/2020 with moderate size hiatal hernia without obstruction or gangrene. Mild gastritis in antrum. Possibly contributing to her symptoms. Follow-up with additional abdominal series in the morning. Consider work-up imaging depending on condition. Status: Acute (3) Osteomyelitis of femur: Follow-up bone biopsy results - appears to be growing Acinetobacter from the bone biopsy. May have been the source of bacteremia. Needs continued wound care follow-up. Wound culture Continued risk of infection of bone as long as the wound remains open. Status: Acute Qualifiers: Osteomyelitis type: other chronic Laterality: unspecified laterality Qualified Code(s): M86.659 - Other chronic osteomyelitis, unspecified thigh (4) Anisocoria: Currently no complaints of blurry vision, nausea, vomiting, Appreciate ophthalmology consultation by Dr Rai. Note not in due to reported difficulties w access to chart. Pending additional evaluation. So far no obvious signs of septic seeding or thrombosis. Given variable sensitivity to light between the eyes concern for an optic nerve problem. Please contact with any questions. Discussed findings of possible hydrocephalus with our radiologist. On review of prior images this appears to be a somewhat gradual process, and not impressive for obstructive hydrocephalus. Again no high-grade obstruction on MRI to suggest cord compression in the lumbar spine. Suspected more likely ex vacuo process. Today symptomatically also she is doing much better, no nausea or vomiting, no headache, or other progression of symptoms, and he is requesting to advance to solid diet. Discussed with her consideration of LP, although does have excoriations on her back from scratching. No overt cellulitis, but may be high risk for infection with transdermal transit. Without other meningeal signs. As hydrocephalus also possibly more likely ex vacuo, for now held off on lumbar puncture, but may have to pursue in case there are changes for the worse. Continue to hold fludrocortisone and albumin infusions. She has not been wanting to go back to MRI given she had a very miserable experience there with her lumbar scan. Unclear timing of onset of anisocoria. Not a clear cause of this. She states she is had diminished vision ever since the beginning of this hospitalization. Pupils do appear to be reactive to light. Status: Acute (5) Rash and nonspecific skin eruption: Gradually resolving, erythema mostly gone, excoriated/desquamated areas gradually healing with granulation tissue. Of midodrine, and also have been avoiding Lasix, and rash appears to be resolving. Not sure which of these agents may been contributing, but added both to adverse reaction list, as these rashes appear to be recurrent, and she appears to frequently inadvertently again end up on these medications. Skin punch biopsy unremarkable/unrevealing. Diffuse Rash - nonspecific skin eruption, now flaking off. Pruritic. She request for Benadryl. States it works better for her than Vistaril. Blood pressure is good. Hold midodrine which can also cause pruritus. Had rash previously. Was thought to be associated possibly with Lasix, although low cross-reactivity with sulfa usually, but rash is back and she appears to again have been on Lasix. Avoid Lasix. Possible allergic reaction, continues to have diffuse maculopapular rash, pruritic Has features of dress syndrome, elevated eosinophils Possibilities also include toxic epidermal necrolysis versus Jim Bladimir syndrome versus dress syndrome Hepatitis C positive, PCR negative. Status: Acute (6) Adrenal insufficiency: hydrocortisone. Hold Florinef. Monitor blood pressures. Currently blood pressure is good, midodrine stopped as can also cause pruritus. Status: Acute (7) Hydrocephalus: Discussed findings of possible hydrocephalus with our radiologist. On review of prior images this appears to be a somewhat gradual process, and not impressive for obstructive hydrocephalus. Again no high-grade obstruction on M RI to suggest cord compression in the lumbar spine. Suspected more likely ex vacuo process with atrophy advanced for age. Perhaps relating to alcohol use disorder. Small bifrontal benign hygromas. Consider follow-up with neurology. Status: Acute (8) Poor venous access: Status: Acute (9) Stage IV pressure ulcer: -Bilateral heels, left thigh -On hospital admission March 28, 2021, had debridement -Continue offloading, wound care, monitor closely Status: Acute (10) Acute kidney injury: Resolved. Hyponatremia resolved Admission Serum Creatinine 0.5 Cosme maintained for now due to wound Has good urine output Status: Acute (11) Alcohol intoxication: Currently not in withdrawal Discussed with her to avoid any alcohol. She verbalized understanding and agreement. Status: Acute (12) Sepsis: Sepsis resolved. Continue treatment for bacteremia as above. Bone biopsies obtained from osteomyelitis of left femur on 06/14. Follow-up culture. Continue Primaxin for Acinetobacter bacteremia, linezolid for VRE bacteremia. Mall[place] CT scan she has showed: -Posterior left upper thigh decubitus ulcer with associated inflammatory mass and changes in the adjacent femur compatible with osteomyelitis -The lumbar spine is stable in appearance compared to 10/02/2020. There are findings of degenerative spondylosis. The findings at L5-S1 could represent chronic disc space infection however there are no adjacent soft tissue changes and the appearance of this level has not changed since 10/02/2020. -MRI of the lumbar spine showed no secondary features suggestive of discitis or osteomyelitis Blood Culture: Initially seen in [facility], repeat negative Urine Culture: E. coli, Enterobacter cloacae sensitive to imipenem -Etiology, multifactorial, from bilateral lower extremity cellulitis, from thigh decubitus ulcer with osteomyelitis, bilateral heel sacral ulcers, UTI Status: Acute (13) DVT prophylaxis: Status: Acute Additional A&P Information Hypokalemia: Replaced Hypomagnesemia: Replaced Attestations Medical Necessity Statement*: Patient requires hospitalization for osteomyel itis, bacteremia Coding Level of Care Code Acute Fish Skinning Machine Feeder for [facility] Diagnoses Bacteremia R78.81 Vomiting R11.10 Osteomyelitis of femur M86.659 Osteomyelitis type: other chronic Laterality: unspecified laterality Anisocoria H57.02 Rash and nonspecific skin eruption R21 Adrenal insufficiency E27.40 Hydrocephalus G91.9 Poor venous access I87.8 Stage IV pressure ulcer L89.94 Acute kidney injury N17.9 Alcohol intoxication F10.929 Sepsis A41.9 DVT prophylaxis Z29.9
[2021-06-19 19:29] LABS: Glucose Point of Care 123 mg/dL (70-110)
[2021-06-20] VITALS (16 sets, daily range): BP systolic 110–148; BP diastolic 60–93; PULSE 68–108; RESP 16–20; TEMP 36.6–37.1; O2SAT 90–100
[2021-06-20] MEDS: oxyCODONE 5 mg IR Tab/Cap 10 MG PO ×3 (00:06→15:05)
[2021-06-20] MEDS: midodrine 5 mg TABLET 10 MG PO ×2 (00:06→10:47)
[2021-06-20] MEDS: diphenhydrAMINE 25 mg Capsule PO (01:32)
[2021-06-20] MEDS: morphine 4 mg/mL SDV 1 mL 2 MG IVP ×3 (03:37→23:35)
[2021-06-20] MEDS: levothyroxine 100 mcg Tablet 300 MCG PO (06:29)
[2021-06-20] MEDS: folic acid 1 mg Tablet PO (06:30)
[2021-06-20] MEDS: linezolid 600 mg Tablet PO ×2 (06:30→17:58)
[2021-06-20 06:50] LABS: Basophils # 0.1 10^3/uL (0.0-0.1); Basophils % 2.6 %; Eosinophils # 0.8 10^3/uL (0.0-0.8); Eosinophils % 17.8 %; Lymphocytes # 1.5 10^3/uL (0.8-4.8); Lymphocytes % 32.9 %; Mean Corpuscular Volume 93.5 fl (81-99); Mean Platelet Volume 10.6 fL (7.4-10.4); Monocytes # 0.5 10^3/uL (0.2-0.9); Monocytes % 9.9 %; Neutrophils % 36.6 %; Nucleated Red Blood Cells % 0 %; Platelet Count 223 10^3/cmm (130-400); Red Blood Count 3.21 10^6/uL (4.1-5.3); Red Cell Distribution Width 17.8 % (12.1-15.1); White Blood Count 4.7 10^3/uL (4.0-10.0)
[2021-06-20 07:07] LABS: Glucose Point of Care 77 mg/dL (70-110)
[2021-06-20 07:12] LABS: Alanine Aminotransferase 6 U/L (0-33); Anion Gap 9.8 (5-19); Aspartate Amino Transferase 11 U/L (0-32); Blood Urea Nitrogen 5 mg/dL (6-20); Carbon Dioxide 33 mmol/L (22-29); Chloride 103 mmol/L (98-107); Glomerular Filtration Rate 107.2 mL/min (90-130); Glucose 74 mg/dL (65-115); Magnesium 1.6 mg/dL (1.7-2.3); Osmolality Calculated 290 mOsm/kg (285-295); Phosphorus 3.3 mg/dL (2.5-4.5); Potassium 3.8 mmol/L (3.5-5.1); Sodium 142 mmol/L (136-145); Total Bilirubin 0.7 mg/dL (0.15-1.2); Total Protein 5.5 g/dL (6.6-8.7)
[2021-06-20 07:13] LABS: Alkaline Phosphatase 108 IU/L (35-105); Globulin 2.5 g/dL (1.3-4.6)
[2021-06-20] MEDS: ferrous gluconate 324 mg Tablet PO ×2 (08:28→21:07)
[2021-06-20] MEDS: gabapentin 100 mg Capsule 200 MG PO ×3 (08:28→21:06)
[2021-06-20] MEDS: pantoprazole DR 40 mg Tablet PO ×2 (08:29→17:58)
[2021-06-20] MEDS: levETIRAcetam 500 mg Tablet 1000 MG PO ×2 (08:29→21:09)
[2021-06-20] MEDS: hydrocortisone 10 mg Tablet 5 MG PO ×2 (08:29→17:59)
[2021-06-20] MEDS: apixaban 5 mg Tablet 2.5 MG PO ×2 (08:29→21:07)
[2021-06-20] MEDS: nystatin powder 15 gm Btl 1 APPLIC TOPICAL ×2 (08:39→17:59)
[2021-06-20] MEDS: albuterol 8 gm MDI 2 PUFF INHALATION (09:14)
--- NOTE | 2021-06-20 10:40 | PC.SOCIAL ---
IMM Update Pg. 2 of [facility] updated and reviewed with patient who verbalized understanding, copy provided.
--- NOTE | 2021-06-20 10:45 | PC.SOCIAL ---
IMM Update Pg. 2 of [facility] updated and reviewed with patient who verbalized understanding, copy provided.
[2021-06-20 11:27] LABS: Glucose Point of Care 128 mg/dL (70-110)
--- NOTE | 2021-06-20 11:43 | PC.CHAP ---
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 organizational development manager visit [] Patient/Family/Request visit [] Outpatient visit [] Follow-up visit [] Physician referral [] Code/Alert [x] Routine visit [] Staff referral [] Actively dying [] Patient sleeping [] Family support [] [] Out of room [] Palliative care [] [] Receiving care in room [] Pre-surgical visit [] Trauma [] Long length of stay [] ICU visit [] Other: Relational/Emotional Strength [x] Patient feels connected with others/family/visitors/staff [] Distress [] Loneliness/isolation [] Abandonment Spirituality of Patient [x] Person of Angy [x] Attends Yarsani of their Angy [x] Believes in Prayer [x] Reads Bible or Restorationism materials [] There are Spiritual issues to be addressed Traditional Chinese Herbalist Interventions [x] Prayer [x] Active listening [x] Non-anxious presence [x] Spiritual/emotional support [] Crisis/trauma care [] Spiritual counseling [] Bereavement support [] Provided bereavement packet [] Provided Bible/devotional materials [] Provided toy/stuffed animal, coloring book to patient or family member [] Provided Communion [] Anointing/[place] [] Salvation [x] Completed spiritual assessment [] Other: Impact on Illness or Injury [] Angry [x] Fearful [] Anxious [] Often cries [] Exhaustion [] Unable to work [] Unable to attend anglican [] Unable to walk/stand [] Unable to read [] Unable to drive [] Unable to eat/drink [] Unable to sleep [] Unable to be with family [] Patient intubated [] Other: Summary Pt again mentioned she is fearful not of but of the dying process. We explored this in some detail and organizational development manager assured her hospice would work to insure the process is a painless and as comfortable as possible. She has made her arrangements and states she is ready to go when the time comes. However, she does have a grandchild scheduled for open heart surgery and she desires to go and care for the child while recovering. She has spoke with her doctor about this. When she is discharged it is expected to be placed on hospice. She will be able to place a hospital bed in the home of her ex . He will be present at night and she will have children able to come during the daytime, especially when she becomes worse, to sit with her and provide comfort. Traditional Chinese Herbalist made pleanty of time to speak with Pt as it seemed Pt needed it. Traditional Chinese Herbalist did explain to her on hospice a organizational development manager would be assigned her case. In speaking with her Traditional Chinese Herbalist I knew her family. Time spent with patient 30 m
[2021-06-20 16:32] LABS: Glucose Point of Care 99 mg/dL (70-110)
--- NOTE | 2021-06-20 16:36 | P.PN_ITS ---
Subjective Subjective: Interval history: Patient was seen this morning, she ambulated with physical therapy up to 100 feet, no fevers, chills, nausea, no vomiting Vitals/I&O/Wt Last Vital Signs Temp 98.7 F 06/20/21 15:41 Pulse 87 06/20/21 15:41 Resp 17 06/20/21 15:41 BP 148/93 06/20/21 15:41 Pulse Ox 90 06/20/21 15:41 06/20/21 06/20/21 06/20/21 06:59 14:59 22:59 Intake Total 200 / 930 700 / 700 Balance 200 / -1920 700 / 700 Physical Exam Const: COMMON NORMALS: no acute distress and patient oriented x3 Resp: COMMON NORMALS: normal respiratory effort, No retractions, No use of accessory muscles and clear to auscultation bilaterally AUSCULTATION: clear to auscultation bilaterally Cardio: COMMON NORMALS: regular rate, regular rhythm, S1 normal heart sound present and S2 normal heart sound present RATE: regular rate RHYTHM: regular rhythm HEART SOUNDS: S1 normal heart sound present and S2 normal heart sound present GI: COMMON NORMALS: Normal to inspection, nondistended, normoactive bowel sounds present, Soft to palpation and non-tender PALPATION: Yes Soft to palpation Extremity: COMMON NORMALS: no pedal edema Neuro: COMMON NORMALS: patient oriented x3 Psych: COMMON NORMALS: mental status grossly normal Urinary Catheter Management^: Cosme: Cath Placed During This Visit: yes, but has since been removed by the nurse Reason for Continuing Indwelling Catheter: Decision to DC Catheter Urinary Catheter Date of Insertion: 06/16/21 Urinary Catheter Time of Insertion: 13:50 Date Urinary Catheter Removed: 06/19/21 Time Urinary Catheter Discontinued: 17:54 Data : 06/20/21 06:30 06/20/21 06:30 A&P Assessment and plan (1) Bacteremia: Sepsis resolved. Continue antibiotics. Tentative plan was to continue until 06/22. however, Acinetobacter growing from bone biopsy on preliminary culture, suspect likely was the source of her bacteremia. Continue Primaxin for Acinetobacter, multidrug resistant. Continue linezolid for VRE. Confirm with infectious disease when available with regards to duration of antibiotic in light of bone biopsy culture results. If treatment needed for 6 weeks, may require other means of IV access, likely port, will send full susceptibilities. Possible consideration of attempted midline again, or discussion with surgery regarding possible other access options which will allow her to discharge to [facility] facility or home. However, there is also high risk of infection of bone as long as the wound remains open. Plan is on discharge home, with home health care, possible IV antibiotics Status: Acute (2) Vomiting: Reports again vomiting after eating. Does have history of gastritis. No history of diabetes or gastroparesis. Some right lower quadrant chronic discomfort which intermittently reappears with multiple prior CT scans. De-escalate diet to clear liquids for now. Increase PPI to twice daily. Consider gastric emptying study when she is doing little better. EGD 07/27/2020 with moderate size hiatal hernia without obstruction or gangrene. Mild gastritis in antrum. Possibly contributing to her symptoms. Follow-up with additional abdominal series in the morning. Consider work-up imaging depending on condition. Status: Acute (3) Osteomyelitis of femur: Follow-up bone biopsy results - appears to be growing Acinetobacter from the bone biopsy. May have been the source of bacteremia. Needs continued wound care follow-up. Wound culture Continued risk of infection of bone as long as the wound remains open. Status: Acute Qualifiers: Osteomyelitis type: other chronic Laterality: unspecified laterality Qualified Code(s): M86.659 - Other chronic osteomyelitis, unspecified thigh (4) Anisocoria: Currently no complaints of blurry vision, nausea, vomiting, Appreciate ophthalmology consultation by Dr Rai. Note not in due to reported difficulties w access to chart. Pending additional evaluation. So far no obvious signs of septic seeding or thrombosis. Given variable sensitivity to light between the eyes concern for an optic nerve problem. Please contact with any questions. Discussed findings of possible hydrocephalus with our radiologist. On review of prior images this appears to be a somewhat gradual process, and not impressive for obstructive hydrocephalus. Again no high-grade obstruction on MRI to sugges t cord compression in the lumbar spine. Suspected more likely ex vacuo process. Today symptomatically also she is doing much better, no nausea or vomiting, no headache, or other progression of symptoms, and he is requesting to advance to solid diet. Discussed with her consideration of LP, although does have excoriations on her back from scratching. No overt cellulitis, but may be high risk for infection with transdermal transit. Without other meningeal signs. As hydrocephalus also possibly more likely ex vacuo, for now held off on lumbar puncture, but may have to pursue in case there are changes for the worse. Continue to hold fludrocortisone and albumin infusions. She has not been wanting to go back to MRI given she had a very miserable experience there with her lumbar scan. Unclear timing of onset of anisocoria. Not a clear cause of this. She states she is had diminished vision ever since the beginning of this hospitalization. Pupils do appear to be reactive to light. Status: Acute (5) Rash and nonspecific skin eruption: Gradually resolving, erythema mostly gone, excoriated/desquamated areas gradually healing with granulation tissue. Of midodrine, and also have been avoiding Lasix, and rash appears to be resolving. Not sure which of these agents may been contributing, but added both to adverse reaction list, as these rashes appear to be recurrent, and she appears to frequently inadvertently again end up on these medications. Skin punch biopsy unremarkable/unrevealing. Diffuse Rash - nonspecific skin eruption, now flaking off. Pruritic. She request for Benadryl. States it works better for her than Vistaril. Blood pressure is good. Hold midodrine which can also cause pruritus. Had rash previously. Was thought to be associated possibly with Lasix, although low cross-reactivity with sulfa usually, but rash is back and she appears to again have been on Lasix. Avoid Lasix. Possible allergic reaction, continues to have diffuse maculopapular rash, pruritic Has features of dress syndrome, elevated eosinophils Possibilities also include toxic epidermal necrolysis versus Jim Bladimir syndrome versus dress syndrome Hepatitis C positive, PCR negative. Status: Acute (6) Adrenal insufficiency: hydrocortisone. Hold Florinef. Monitor blood pressures. Currently blood pressure is good, midodrine stopped as can also cause pruritus. Status: Acute (7) Hydrocephalus: Discussed findings of possible hydrocephalus with our radiologist. On review of prior images this appears to be a somewhat gradual process, and not impressive for obstructive hydrocephalus. Again no high-grade obstruction on MRI to suggest cord compression in the lumbar spine. Suspected more likely ex vacuo process with atrophy advanced for age. Perhaps relating to alcohol use disorder. Small bifrontal benign hygromas. Consider follow-up with neurology. Status: Acute (8) Poor venous access: Status: Acute (9) Stage IV pressure ulcer: -Bilateral heels, left thigh -On hospital admission March 28, 2021, had debridement -Continue offloading, wound care, monitor closely Status: Acute (10) Acute kidney injury: Resolved. Hyponatremia resolved Admission Serum Creatinine 0.5 Cosme maintained for now due to wound Has good urine output Status: Acute (11) Alcohol intoxication: Currently not in withdrawal Discussed with her to avoid any alcohol. She verbalized understanding and agreement. Status: Acute (12) Sepsis: Sepsis resolved. Continue treatment for bacteremia as above. Bone biopsies obtained from osteomyelitis of left femur on 06/14. Follow-up culture. Continue Primaxin for Acinetobacter bacteremia, linezolid for VRE bacteremia. [facility] CT scan she has showed: -Posterior left upper thigh decubitus ulcer with associated inflammatory mass and changes in the adjacent femur compatible with osteomyelitis -The lumbar spine is stable in appearance compared to 10/02/2020. There are findings of degenerative spondylosis. The findings at L5-S1 could represent chronic disc space infection however there are no adjacent soft tissue changes and the appearance of this level has not changed since 10/02/2020. -MRI of the lumbar spine showed no secondary features suggestive of discitis or osteomyelitis Blood Culture: Initially seen in [facility], repeat negative Urine Culture: E. coli, Enterobacter cloacae sensitive to imipenem -Etiology, multifactorial, from bilateral lower extremity cellulitis, from thigh decubitus ulcer with osteomyelitis, bilateral heel sacral ulcers, UTI Status: Acute (13) DVT prophylaxis: Status: Acute Attestations Medical Necessity Statement*: Patient requires hospitalization for osteomyelitis, bacteremia, Coding Level of Care Code Acute Pyridine Operator for [facility] Diagnoses Bacteremia R78.81 Vomiting R11.10 Osteomyelitis of femur M86.659 Osteomyelitis type: other chronic Laterality: unspecified laterality Anisocoria H57.02 Rash and nonspecific skin eruption R21 Adrenal insufficiency E27.40 Hydrocephalus G91.9 Poor venous access I87.8 Stage IV pressure ulcer L89.94 Acute kidney injury N17.9 Alcohol intoxication F10.929 Sepsis A41.9 DVT prophylaxis Z29.9
[2021-06-20] MEDS: CLONazepam 0.5 mg Tablet 0.25 MG PO (17:58)
[2021-06-20 19:05] LABS: Glucose Point of Care 104 mg/dL (70-110)
[2021-06-20] MEDS: oxyCODONE 5 mg IR Tab/Cap PO (21:30)
[2021-06-20] MEDS: ondansetron 2 mg/ML SDV 2 mL 4 MG IVP (23:36)
[2021-06-21] VITALS (14 sets, daily range): BP systolic 104–151; BP diastolic 64–91; PULSE 71–84; RESP 17–20; TEMP 36.4–36.7; O2SAT 90–100
[2021-06-21] MEDS: oxyCODONE 5 mg IR Tab/Cap 10 MG PO ×3 (03:09→16:29)
[2021-06-21] MEDS: folic acid 1 mg Tablet PO (05:38)
[2021-06-21] MEDS: levothyroxine 100 mcg Tablet 300 MCG PO (05:38)
[2021-06-21] MEDS: linezolid 600 mg Tablet PO ×2 (05:39→16:29)
[2021-06-21 06:35] LABS: Basophils # 0.1 10^3/uL (0.0-0.1); Basophils % 2.2 %; Eosinophils # 0.6 10^3/uL (0.0-0.8); Eosinophils % 16.2 %; Hematocrit 28.1 % (37.0-47.0); Hemoglobin 8.4 g/dL (11.5-15.3); Lymphocytes # 1.2 10^3/uL (0.8-4.8); Lymphocytes % 33.7 %; Mean Corpuscular HGB Conc 29.9 g/dL (30.0-36.0); Mean Corpuscular Hemoglobin 28.1 pg (28.0-34.0); Monocytes # 0.4 10^3/uL (0.2-0.9); Monocytes % 9.7 %; Neutrophils # 1.37 10^3/uL (1.8-7.7); Neutrophils % 38.2 %; Nucleated Red Blood Cells % 0 %; Platelet Count 178 10^3/cmm (130-400); Red Blood Count 2.99 10^6/uL (4.1-5.3); White Blood Count 3.6 10^3/uL (4.0-10.0)
[2021-06-21 07:04] LABS: Alanine Aminotransferase < 5 U/L (0-33); Albumin Level 2.9 g/dL (3.5-5.2); Alkaline Phosphatase 112 IU/L (35-105); Anion Gap 10.1 (5-19); Aspartate Amino Transferase 9 U/L (0-32); Blood Urea Nitrogen 4 mg/dL (6-20); Carbon Dioxide 32 mmol/L (22-29); Chloride 104 mmol/L (98-107); Creatinine Clr Calc Pharmacy 152.1045; Globulin 2.2 g/dL (1.3-4.6); Glomerular Filtration Rate 132.2 mL/min (90-130); Glucose 74 mg/dL (65-115); Magnesium 1.7 mg/dL (1.7-2.3); Osmolality Calculated 290 mOsm/kg (285-295); Phosphorus 3.4 mg/dL (2.5-4.5); Potassium 4.1 mmol/L (3.5-5.1); Sodium 142 mmol/L (136-145); Total Bilirubin 0.7 mg/dL (0.15-1.2); Total Protein 5.1 g/dL (6.6-8.7)
[2021-06-21 07:11] LABS: Glucose Point of Care 74 mg/dL (70-110)
[2021-06-21] MEDS: albuterol 8 gm MDI 2 PUFF INHALATION (08:27)
[2021-06-21] MEDS: hydrocortisone 10 mg Tablet 5 MG PO ×2 (09:20→18:31)
[2021-06-21] MEDS: levETIRAcetam 500 mg Tablet 1000 MG PO ×2 (09:21→20:01)
[2021-06-21] MEDS: apixaban 5 mg Tablet 2.5 MG PO ×2 (09:21→20:02)
[2021-06-21] MEDS: pantoprazole DR 40 mg Tablet PO ×2 (09:21→18:31)
[2021-06-21] MEDS: ferrous gluconate 324 mg Tablet PO ×2 (09:21→20:02)
[2021-06-21] MEDS: midodrine 5 mg TABLET 10 MG PO ×3 (09:21→20:03)
[2021-06-21] MEDS: gabapentin 100 mg Capsule 200 MG PO ×3 (09:24→20:02)
[2021-06-21] MEDS: nystatin powder 15 gm Btl 1 APPLIC TOPICAL ×2 (09:26→18:32)
--- NOTE | 2021-06-21 09:28 | PC.NURSE ---
This nurse introduced student and self to patient. Patient is seizure precautions. Patient requested to not pad side rails due to not being able to get out of bed and go to the bathroom. Patient also request that dressing changes not be done at this time. Will attempt to changes dressings later today.
[2021-06-21] MEDS: metoclopramide 5 mg/mL SDV 2 mL IVP (10:53)
[2021-06-21 11:09] LABS: Glucose Point of Care 89 mg/dL (70-110)
--- NOTE | 2021-06-21 14:17 | P.PN_ITS ---
Subjective Subjective: Interval history: Patient was seen this morning, she is a bit nauseous this morning, complained of generalized abdominal pain, is reporting adequate bowel movements, no fevers, no chills, no lightheadedness, no dizziness, afebrile overnight Vitals/I&O/Wt Last Vital Signs Temp 97.7 F 06/21/21 11:01 Pulse 84 06/21/21 11:01 Resp 20 H 06/21/21 11:01 BP 129/70 06/21/21 11:01 Pulse Ox 93 06/21/21 11:01 06/20/21 06/21/21 06/21/21 22:59 06:59 14:59 Intake Total 700 / 1400 340 / 1740 200 / 200 Output Total 180 / 180 Balance 700 / 1400 160 / 1560 200 / 200 Physical Exam Const: COMMON NORMALS: no acute distress and patient oriented x3 Resp: COMMON NORMALS: normal respiratory effort, No retractions, No use of accessory muscles and clear to auscultation bilaterally AUSCULTATION: clear to auscultation bilaterally Cardio: COMMON NORMALS: regular rate, regular rhythm, S1 normal heart sound present and S2 normal heart sound present RATE: regular rate RHYTHM: regular rhythm HEART SOUNDS: S1 normal heart sound present and S2 normal heart sound present GI: COMMON NORMALS: Normal to inspection, nondistended, normoactive bowel sounds present, Soft to palpation and non-tender PALPATION: Yes Soft to pal pation Extremity: COMMON NORMALS: no pedal edema Neuro: COMMON NORMALS: patient oriented x3 Urinary Catheter Management^: Cosme: Cath Placed During This Visit: yes, but has since been removed by the nurse Reason for Continuing Indwelling Catheter: Decision to DC Catheter Urinary Catheter Date of Insertion: 06/16/21 Urinary Catheter Time of Insertion: 13:50 Date Urinary Catheter Removed: 06/19/21 Time Urinary Catheter Discontinued: 17:54 Data : 06/21/21 06:10 06/21/21 06:10 A&P Assessment and plan (1) Bacteremia: Sepsis resolved. Continue antibiotics. Tentative plan was to continue until 06/22. however, Acinetobacter growing from bone biopsy on preliminary culture, suspect likely was the source of her bacteremia. Continue Primaxin for Acinetobacter, multidrug resistant. Continue linezolid for VRE. Confirm with infectious disease when available with regards to duration of antibiotic in light of bone biopsy culture results. If treatment needed for 6 weeks, may require other means of IV access, likely port, full susceptibilities sent out on Saturday, and on Saturday, should be back today tomorrow. Possible consideration of attempted midline again, or discussion with surgery regarding possible other access options which will allow her to discharge to [facility] facility or home. However, there is also high risk of infection of bone as long as the wound remains open. Plan is on discharge home, with home health care, possible IV versus p.o. antibiotics Status: Acute (2) Vomiting: Reports again vomiting after eating this morning. Does have history of gastritis. No history of diabetes or gastroparesis. Some right lower quadrant chronic discomfort which intermittently reappears with multiple prior CT scans. Continue clear liquids. Increase PPI to twice daily. Consider gastric emptying study as outpatient EGD 07/27/2020 with moderate size hiatal hernia without obstruction or gangrene. Mild gastritis in antrum. Possibly contributing to her symptoms. Status: Acute (3) Osteomyelitis of femur: Follow-up bone biopsy results - appears to be growing Acinetobacter from the bone biopsy. May have been the source of bacteremia. Needs continued wound care follow-up. Wound culture Continued risk of infection of bone as long as the wound remains open. Status: Acute Qualifiers: Osteomyelitis type: other chronic Laterality: unspecified laterality Qualified Code(s): M86.659 - Other chronic osteomyelitis, unspecified thigh (4) Anisocoria: Currently no complaints of blurry vision, nausea, vomiting, Appreciate ophthalmology consultation by Dr Rai. Note not in due to reported difficulties w access to chart. Pending additional evaluation. So far no obvious signs of septic seeding or thrombosis. Given variable sensitivity to light between the eyes concern for an optic nerve problem. Please contact with any questions. Discussed findings of possible hydrocephalus with our radiologist. On review of prior images this appears to be a somewhat gradual process, and not impressive for obstructive hydrocephalus. Again no high-grade obstruction on MRI to suggest cord compression in the lumbar spine. Suspected more likely ex vacuo process. Today symptomatically also she is doing much better, no nausea or vomiting, no headache, or other progression of symptoms, and he is requesting to advance to solid diet. Discussed with her consideration of LP, although does have excoriations on her back from scratching. No overt cellulitis, but may be high risk for infection with transdermal transit. Without other meningeal signs. As hydrocephalus also possibly more likely ex vacuo, for now held off on lumbar puncture, but may have to pursue in case there are changes for the worse. Continue to hold fludrocortisone and albumin infusions. She has not been wanting to go back to MRI given she had a very miserable experience there with her lumbar scan. Unclear timing of onset of anisocoria. Not a clear cause of this. She states she is had diminished vision ever since the beginning of this hospitalization. Pupils do appear to be reactive to light. Status: Acute (5) Rash and nonspecific skin eruption: Gradually resolving, erythema mostly gone, excoriated/desquamated areas gradually healing with granulation tissue. Of midodrine, and also have been avoiding Lasix, and rash appears to be resolving. Not sure which of these agents may been contributing, but added both to adverse reaction list, as these rashes appear to be recurrent, and she appears to frequently inadvertently again end up on these medications. Skin punch biopsy unremarkable/unrevealing. Diffuse Rash - nonspecific skin eruption, now flaking off. Pruritic. She request for Benadryl. States it works better for her than Vistaril. Blood pressure is good. Hold midodrine which can also cause pruritus. Had rash previously. Was thought to be associated possibly with Lasix, although low cross-reactivity with sulfa usually, but rash is back and she appears to again have been on Lasix. Avoid Lasix. Possible allergic reaction, continues to have diffuse maculopapular rash, pruritic Has features of dress syndrome, elevated eosinophils Possibilities also include toxic epidermal necrolysis versus Jim Bladimir syndrome versus dress syndrome Hepatitis C positive, PCR negative. Status: Acute (6) Adrenal insufficiency: hydrocortisone. Hold Florinef. Monitor blood pressures. Currently blood pressure is good, midodrine stopped as can also cause pruritus. Status: Acute (7) Hydrocephalus: Discussed findings of possible hydrocephalus with our radiologist. On review of prior images this appears to be a somewhat gradual process, and not impressive for obstructive hydrocephalus. Again no high-grade obstruction on MRI to suggest cord compression in the lumbar spine. Suspected more likely ex vacuo process with atrophy advanced for age. Perhaps relating to alcohol use disorder. Small bifrontal benign hygromas. Consider follow-up with neurology. Status: Acute (8) Poor venous access: Status: Acute (9) Stage IV pressure ulcer: -Bilateral heels, left thigh -On hospital admission March 28, 2021, had debridement -Continue offloading, wound care, monitor closely Status: Acute (10) Acute kidney injury: Resolved. Hyponatremia resolved Admission Serum Creatinine 0.5 Cosme maintained for now due to wound Has good urine output Status: Acute (11) Alcohol intoxication: Currently not in withdrawal Discussed with her to avoid any alcohol. She verbalized understanding and agreement. Status: Acute (12) Sepsis: Sepsis resolved. Continue treatment for bacteremia as above. Bone biopsies obtained from osteomyelitis of left femur on 06/14. Follow-up culture. Continue Primaxin for Acinetobacter bacteremia, linezolid for VRE bacteremia. [facility] CT scan she has showed: -Posterior left upper thigh decubitus ulcer with associated inflammatory mass and changes in the adjacent femur compatible with osteomyelitis -The lumbar spine is stable in appearance compared to 10/02/2020. There are findings of degenerative spondylosis. The findings at L5-S1 could represent chronic disc space infection however there are no adjacent soft tissue changes and the appearance of this level has not changed since 10/02/2020. -MRI of the lumbar spine showed no secondary features suggestive of discitis or osteomyelitis Blood Culture: Initially seen in [facility], repeat negative Urine Culture: E. coli, Enterobacter cloacae sensitive to imipenem -Etiology, multifactorial, from bilateral lower extremity cellulitis, from thigh decubitus ulcer with osteomyelitis, bilateral heel sacral ulcers, UTI Status: Acute (13) DVT prophylaxis: Status: Acute Attestations Medical Necessity Statement*: Patient requires hospitalization for acinetobacter bacteremia, osteomyelitis Coding Level of Care Code Acute Cloth Spreader Screen Printing for [facility] [place] Diagnoses Bacteremia R78.81 Vomiting R11.10 Osteomyelitis of femur M86.659 Osteomyelitis type: other chronic Laterality: unspecified laterality Anisocoria H57.02 Rash and nonspecific skin eruption R21 Adrenal insufficiency E27.40 Hydrocephalus G91.9 Poor venous access I87.8 Stage IV pressure ulcer L89.94 Acute kidney injury N17.9 Alcohol intoxication F10.929 Sepsis A41.9 DVT prophylaxis Z29.9
[2021-06-21] MEDS: morphine 4 mg/mL SDV 1 mL 2 MG IVP ×2 (14:19→21:13)
[2021-06-21 17:18] LABS: Glucose Point of Care 101 mg/dL (70-110)
[2021-06-21] MEDS: tizanidine 4 mg Tablet 2 MG PO (18:31)
[2021-06-21] MEDS: fluticasone nasal spray 16gm Btl 1 SPRAY INTRANASAL (20:03)
[2021-06-21 20:56] LABS: Glucose Point of Care 135 mg/dL (70-110)
[2021-06-21] MEDS: ondansetron 2 mg/ML SDV 2 mL 4 MG IVP (21:13)
[2021-06-22] VITALS (12 sets, daily range): BP systolic 115–142; BP diastolic 65–86; PULSE 56–83; RESP 16–19; TEMP 36.4–36.7; O2SAT 92–99
[2021-06-22] MEDS: oxyCODONE 5 mg IR Tab/Cap 10 MG PO ×4 (02:36→23:34)
[2021-06-22] MEDS: morphine 4 mg/mL SDV 1 mL 2 MG IVP ×4 (04:17→20:29)
[2021-06-22] MEDS: levothyroxine 100 mcg Tablet 300 MCG PO (05:06)
[2021-06-22] MEDS: linezolid 600 mg Tablet PO ×2 (05:09→17:01)
[2021-06-22 05:48] LABS: Basophils # 0.1 10^3/uL (0.0-0.1); Basophils % 2.2 %; Eosinophils # 0.7 10^3/uL (0.0-0.8); Eosinophils % 16.6 %; Hemoglobin 8.6 g/dL (11.5-15.3); Lymphocytes # 1.2 10^3/uL (0.8-4.8); Lymphocytes % 29.4 %; Mean Corpuscular HGB Conc 29.7 g/dL (30.0-36.0); Mean Corpuscular Hemoglobin 27.9 pg (28.0-34.0); Mean Corpuscular Volume 94.2 fl (81-99); Mean Platelet Volume 10.6 fL (7.4-10.4); Monocytes # 0.4 10^3/uL (0.2-0.9); Monocytes % 9.9 %; Neutrophils # 1.73 10^3/uL (1.8-7.7); Neutrophils % 41.7 %; Nucleated Red Blood Cells % 0 %; Platelet Count 190 10^3/cmm (130-400); Red Blood Count 3.08 10^6/uL (4.1-5.3); Red Cell Distribution Width 17.4 % (12.1-15.1); White Blood Count 4.2 10^3/uL (4.0-10.0)
--- NOTE | 2021-06-22 05:48 | PC.NURSE ---
Refused her thiamine and folic acid this morning. stated im not taking that shit it makes me sick. CELSO Bray
--- NOTE | 2021-06-22 06:39 | PC.NURSE ---
Patient slept well through out the night. resting in bed this morning with call light in [place]. Eunice Qiu LPN
[2021-06-22 06:58] LABS: Glucose Point of Care 70 mg/dL (70-110)
[2021-06-22 07:09] LABS: Alanine Aminotransferase < 5 U/L (0-33); Alkaline Phosphatase 113 IU/L (35-105); Anion Gap 10.2 (5-19); Aspartate Amino Transferase 10 U/L (0-32); Blood Urea Nitrogen 4 mg/dL (6-20); Carbon Dioxide 30 mmol/L (22-29); Chloride 105 mmol/L (98-107); Creatinine Clr Calc Pharmacy 151.8252; Globulin 2.1 g/dL (1.3-4.6); Glomerular Filtration Rate 132.2 mL/min (90-130); Glucose 71 mg/dL (65-115); Magnesium 1.6 mg/dL (1.7-2.3); Osmolality Calculated 287 mOsm/kg (285-295); Phosphorus 3.3 mg/dL (2.5-4.5); Potassium 4.2 mmol/L (3.5-5.1); Sodium 141 mmol/L (136-145); Total Bilirubin 0.8 mg/dL (0.15-1.2); Total Protein 5.1 g/dL (6.6-8.7)
[2021-06-22] MEDS: gabapentin 100 mg Capsule 200 MG PO ×3 (07:58→20:23)
[2021-06-22] MEDS: pantoprazole DR 40 mg Tablet PO ×2 (07:59→16:55)
[2021-06-22] MEDS: apixaban 5 mg Tablet 2.5 MG PO ×2 (07:59→20:23)
[2021-06-22] MEDS: midodrine 5 mg TABLET 10 MG PO ×3 (07:59→20:30)
[2021-06-22] MEDS: levETIRAcetam 500 mg Tablet 1000 MG PO ×2 (07:59→20:23)
[2021-06-22] MEDS: ferrous gluconate 324 mg Tablet PO ×2 (07:59→20:23)
[2021-06-22] MEDS: hydrocortisone 10 mg Tablet 5 MG PO ×2 (07:59→17:01)
[2021-06-22] MEDS: albuterol 8 gm MDI 2 PUFF INHALATION (08:00)
[2021-06-22] MEDS: nystatin powder 15 gm Btl 1 APPLIC TOPICAL ×2 (08:03→16:55)
[2021-06-22] MEDS: fluticasone nasal spray 16gm Btl 1 SPRAY INTRANASAL ×2 (08:36→20:24)
[2021-06-22] MEDS: ondansetron 2 mg/ML SDV 2 mL 4 MG IVP ×2 (10:29→20:30)
--- NOTE | 2021-06-22 11:10 | PC.SOCIAL ---
IMM Update: pg 2 of IMM updated and reviewed w/ patient. Copy provided.
--- NOTE | 2021-06-22 12:26 | PC.CHAP ---
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 intelligence group supervisor visit [] Patient/Family/Request visit [] Outpatient visit [] Follow-up visit [] Physician referral [] Code/Alert [x] Routine visit [] Staff referral [] Actively dying [] Patient sleeping [] Family support [] [] Out of room [] Palliative care [] [x] Receiving care in room [] Pre-surgical visit [] Trauma [] Long length of stay [] ICU visit [] Other: Relational/Emotional Strength [x] Patient feels connected with others/family/visitors/staff [] Distress [] Loneliness/isolation [] Abandonment Spirituality of Patient [x] Person of Angy [] Attends Denominational of their Angy [x] Believes in Prayer [] Reads Bible or Hinduism materials [] There are Spiritual issues to be addressed [employer] Directors Interventions [x] Prayer [x] Active listening [x] Non-anxious presence [x] Spiritual/emotional support [] Crisis/trauma care [x] Spiritual counseling [] Bereavement support [] Provided bereavement packet [] Provided Bible/devotional materials [] Provided toy/stuffed animal, coloring book to patient or family member [] Provided Communion [] Anointing/[place] [] Salvation [x] Completed spiritual assessment [] Other: Impact on Illness or Injury [] Angry [] Fearful [x] Anxious [] Often cries [] Exhaustion [] Unable to work [] Unable to attend jehovah's witness [] Unable to walk/stand [] Unable to read [] Unable to drive [] Unable to eat/drink [] Unable to sleep [] Unable to be with family [] Patient intubated [] Other: Summary second surgery had ahip in hip thinks it is going to be OK has good attitude and is going home feelinh better Time spent with patient 10 mins
[2021-06-22] MEDS: metoclopramide 5 mg/mL SDV 2 mL IVP (12:55)
[2021-06-22 13:02] LABS: Glucose Point of Care 59 mg/dL (70-110)
--- NOTE | 2021-06-22 13:17 | PC.NURSE ---
pt blood sugar 59, and she is complaining of nausea. patient doesn't think that she can eat/drink anything. discussed giving patient D50, and she refused, stating that it would make her blood sugar too high. pt stated she could try to drink a sprite. blood sugar rechecked after she was able to drink about half a can of sprite and was 71
[2021-06-22 13:29] LABS: Glucose Point of Care 71 mg/dL (70-110)
--- NOTE | 2021-06-22 15:11 | P.PN_ITS ---
Subjective Subjective: Interval history: Patient complains of diarrhea this morning, no abdominal complaints, no nausea, but tells me that whenever she eats solids it does not settle well, no blurry vision, no photophobia, Vitals/I&O/Wt Last Vital Signs Temp 97.5 F L 06/22/21 11:28 Pulse 70 06/22/21 11:28 Resp 16 06/22/21 11:28 BP 120/69 06/22/21 11:28 Pulse Ox 92 06/22/21 11:28 06/22/21 06/22/21 06/22/21 06:59 14:59 22:59 Intake Total 320 / 1240 570 / 570 Output Total 550 / 550 Balance -230 / 690 570 / 570 Weight last 48 hrs Weight 94.256 kg Physical Exam Const: COMMON NORMALS: no acute distress and patient oriented x3 Resp: COMMON NORMALS: normal respiratory effort, No retractions, No use of accessory muscles and clear to auscultation bilaterally AUSCULTATION: clear to auscultation bilaterally Cardio: COMMON NORMALS: regular rate, regular rhythm, S1 normal heart sound present and S2 normal heart sound present RATE: regular rate RHYTHM: regular rhythm HEART SOUNDS: S1 normal heart sound present and S2 normal heart sound present GI: COMMON NORMALS: Normal to inspection, nondistended, normoactive bowel sounds present, Soft to palpation and non-tender PALPATION: Yes Soft to palpation Extremity: COMMON NORMALS: no pedal edema Neuro: COMMON NORMALS: patient oriented x3 Psych: COMMON NORMALS: mental status grossly normal Urinary Catheter Management^: Cosme: Cath Placed During This Visit: yes, but has since been removed by the nurse Reason for Continuing Indwelling Catheter: Decision to DC Catheter Urinary Catheter Date of Insertion: 06/16/21 Urinary Catheter Time of Insertion: 13:50 Date Urinary Catheter Removed: 06/19/21 Time Urinary Catheter Discontinued: 17:54 Data : 06/22/21 05:35 06/22/21 05:35 A&P Assessment and plan (1) Bacteremia: Sepsis resolved. Continue antibiotics. Tentative plan was to continue until 06/22. however, Acinetobacter growing from bone biopsy on preliminary culture, suspect likely was the source of her bacteremia. Continue Primaxin for Acinetobacter, multidrug resistant. Continue linezolid for VRE. Confirm with infectious disease when available with regards to duration of antibiotic in light of bone biopsy culture results. If treatment needed for 6 weeks, may require other means of IV access, likely port, full susceptibilities sent out on Saturday, and on Saturday, should be back today tomorrow. Possible consideration of attempted midline again, or discussion with surgery regarding possible other access options which will allow her to discharge to fdc facility or home. However, there is also high risk of infection of bone as long as the wound remains open. Plan is on discharge home, with home health care, possible IV versus p.o. antibiotics Status: Acute (2) Vomiting: Reports again vomiting after eating this morning. Does have history of gastritis. No history of diabetes or gastroparesis. Some right lower quadrant chronic discomfort which intermittently reappears with multiple prior CT scans. Continue clear liquids. Increase PPI to twice daily. Consider gastric emptying study as outpatient EGD 07/27/2020 with moderate size hiatal hernia without obstruction or gangrene. Mild gastritis in antrum. Possibly contributing to her symptoms. Status: Acute (3) Osteomyelitis of femur: Follow-up bone biopsy results - appears to be growing Acinetobacter from the bone biopsy. May have been the source of bacteremia. Needs continued wound care follow-up. Wound culture Continued risk of infection of bone as long as the wound remains open. Status: Acute Qualifiers: Osteomyelitis type: other chronic Laterality: unspecified laterality Qualified Code(s): M86.659 - Other chronic osteomyelitis, unspecified thigh (4) Anisocoria: Currently no complaints of blurry vision, nausea, vomiting, Appreciate ophthalmology consultation by Dr Rai. Note not in due to reported difficulties w access to chart. Pending additional evaluation. So far no obvious signs of septic seeding or thrombosis. Given variable sensitivity to light between the eyes concern for an optic nerve problem. Please contact with any questions. Discussed findings of possible hydrocephalus with our radiologist. On review of prior images this appears to be a somewhat gradual process, and not impressive for obstructive hydrocephalus. Again no high-grade obstruction on MRI to suggest cord compression in the lumbar spine. Suspected more likely ex vacuo process. Today symptomatically also she is doing much better, no nausea or vomiting, no headache, or other progression of symptoms, and he is requesting to advance to solid diet. Discussed with her consideration of LP, although does have excoriations on her back from scratching. No overt cellulitis, but may be high risk for infection with transdermal transit. Without other meningeal signs. As hydrocephalus also possibly more likely ex vacuo, for now held off on lumbar puncture, but may have to pursue in case there are changes for the worse. Continue to hold fludrocortisone and albumin infusions. She has not been wanting to go back to MRI given she had a very miserable experience there with her lumbar scan. Unclear timing of onset of anisocoria. Not a clear cause of this. She states she is had diminished vision ever since the beginning of this hospitalization. Pupils do appear to be reactive to light. Status: Acute (5) Rash and nonspecific skin eruption: Gradually resolving, erythema mostly gone, excoriated/desquamated areas gradually healing with granulation tissue. Of midodrine, and also have been avoiding Lasix, and rash appears to be resolving. Not sure which of these agents may been contributing, but added both to adverse reaction list, as these rashes appear to be recurrent, and she appears to frequently inadvertently again end up on these medications. Skin punch biopsy unremarkable/unrevealing. Diffuse Rash - nonspecific skin eruption, now flaking off. Pruritic. She request for Benadryl. States it works better for her than Vistaril. Blood pressure is good. Hold midodrine which can also cause pruritus. Had rash previously. Was thought to be associated possibly with Lasix, although low cross-reactivity with sulfa usually, but rash is back and she appears to again have been on Lasix. Avoid Lasix. Possible allergic reaction, continues to have diffuse maculopapular rash, pruritic Has features of dress syndrome, elevated eosinophils Possibilities also include toxic epidermal necrolysis versus Jim Bladimir syndrome versus dress syndrome Hepatitis C positive, PCR negative. Status: Acute (6) Adrenal insufficiency: hydrocortisone. Hold Florinef. Monitor blood pressures. Currently blood pressure is good, midodrine stopped as can also cause pruritus. Status: Acute (7) Hydrocephalus: Discussed findings of possible hydrocephalus with our radiologist. On review of prior images this appears to be a somewhat gradual process, and not impressive for obstructive hydrocephalus. Again no high-grade obstruction on MRI to suggest cord compression in the lumbar spine. Suspected more likely ex vacuo process with atrophy advanced for age. Perhaps relating to alcohol use disorder. Small bifrontal benign hygromas. Consider follow-up with neurology. Status: Acute (8) Poor venous access: Status: Acute (9) Stage IV pressure ulcer: -Bilateral heels, left thigh -On hospital admission March 28, 2021, had debridement -Continue offloading, wound care, monitor closely Status: Acute (10) Acute kidney injury: Resolved. Hyponatremia resolved Admission Serum Creatinine 0.5 Cosme maintained for now due to wound Has good urine output Status: Acute (11) Alcohol intoxication: Currently not in withdrawal Discussed with her to avoid any alcohol. She verbalized understanding and agr eement. Status: Acute (12) Sepsis: Sepsis resolved. Continue treatment for bacteremia as above. Bone biopsies obtained from osteomyelitis of left femur on 06/14. Follow-up culture. Continue Primaxin for Acinetobacter bacteremia, linezolid for VRE bacteremia. Mall[place] CT scan she has showed: -Posterior left upper thigh decubitus ulcer with associated inflammatory mass and changes in the adjacent femur compatible with osteomyelitis -The lumbar spine is stable in appearance compared to 10/02/2020. There are findi ngs of degenerative spondylosis. The findings at L5-S1 could represent chronic disc space infection however there are no adjacent soft tissue changes and the appearance of this level has not changed since 10/02/2020. -MRI of the lumbar spine showed no secondary features suggestive of discitis or osteomyelitis Blood Culture: Initially seen in [facility], repeat negative Urine Culture: E. coli, Enterobacter cloacae sensitive to imipenem -Etiology, multifactorial, from bilateral lower extremity cellulitis, from thigh decubitus ulcer with osteomyelitis, bilateral heel sacral ulcers, UTI Status: Acute (13) DVT prophylaxis: Status: Acute Additional A&P Information Diarrhea, C. difficile Attestations 2 Medical Necessity Statement*: Patient requires hospitalization for a symptom factor factor uremia, osteomyelitis, Coding Level of Care Code Acute N[employer] And Bolts Assembler for [facility] Fwd Diagnoses Bacteremia R78.81 Vomiting R11.10 Osteomyelitis of femur M86.659 Osteomyelitis type: other chronic Laterality: unspecified laterality Anisocoria H57.02 Rash and nonspecific skin eruption R21 Adrenal insufficiency E27.40 Hydrocephalus G91.9 Poor venous access I87.8 Stage IV pressure ulcer L89.94 Acute kidney injury N17.9 Alcohol intoxication F10.929 Sepsis A41.9 DVT prophylaxis Z29.9
[2021-06-22 17:23] LABS: Glucose Point of Care 63 mg/dL (70-110)
[2021-06-22 17:40] LABS: Glucose Point of Care 113 mg/dL (70-110)
[2021-06-22 21:02] LABS: Glucose Point of Care 111 mg/dL (70-110)
[2021-06-23] VITALS (10 sets, daily range): BP systolic 113–122; BP diastolic 75–82; PULSE 72–92; RESP 16–19; TEMP 36.5–37.1; O2SAT 94–98
[2021-06-23] MEDS: metoclopramide 5 mg/mL SDV 2 mL IVP ×2 (02:25→13:03)
[2021-06-23] MEDS: morphine 4 mg/mL SDV 1 mL 2 MG IVP ×2 (02:26→08:15)
[2021-06-23] MEDS: levothyroxine 100 mcg Tablet 300 MCG PO (05:24)
[2021-06-23] MEDS: linezolid 600 mg Tablet PO (05:24)
[2021-06-23] MEDS: oxyCODONE 5 mg IR Tab/Cap 10 MG PO ×2 (05:27→12:17)
[2021-06-23 05:35] LABS: Basophils # 0.1 10^3/uL (0.0-0.1); Basophils % 2.4 %; Eosinophils # 0.6 10^3/uL (0.0-0.8); Eosinophils % 14.2 %; Hematocrit 28.1 % (37.0-47.0); Hemoglobin 8.4 g/dL (11.5-15.3); Lymphocytes # 1.2 10^3/uL (0.8-4.8); Lymphocytes % 29.8 %; Mean Corpuscular HGB Conc 29.9 g/dL (30.0-36.0); Mean Corpuscular Hemoglobin 27.7 pg (28.0-34.0); Mean Corpuscular Volume 92.7 fl (81-99); Monocytes # 0.4 10^3/uL (0.2-0.9); Monocytes % 10.8 %; Neutrophils # 1.74 10^3/uL (1.8-7.7); Neutrophils % 42.6 %; Nucleated Red Blood Cells % 0 %; Platelet Count 188 10^3/cmm (130-400); Red Blood Count 3.03 10^6/uL (4.1-5.3); Red Cell Distribution Width 17.2 % (12.1-15.1); White Blood Count 4.1 10^3/uL (4.0-10.0)
[2021-06-23 05:53] LABS: Alanine Aminotransferase < 5 U/L (0-33); Alkaline Phosphatase 121 IU/L (35-105); Anion Gap 10.1 (5-19); Aspartate Amino Transferase 13 U/L (0-32); Blood Urea Nitrogen 4 mg/dL (6-20); Calcium 8.1 mg/dL (8.5-10.5); Carbon Dioxide 30 mmol/L (22-29); Chloride 103 mmol/L (98-107); Globulin 2.4 g/dL (1.3-4.6); Glomerular Filtration Rate 107.2 mL/min (90-130); Glucose 74 mg/dL (65-115); Magnesium 1.5 mg/dL (1.7-2.3); Osmolality Calculated 284 mOsm/kg (285-295); Phosphorus 3.4 mg/dL (2.5-4.5); Potassium 4.1 mmol/L (3.5-5.1); Sodium 139 mmol/L (136-145); Total Bilirubin 0.7 mg/dL (0.15-1.2); Total Protein 5.4 g/dL (6.6-8.7)
--- NOTE | 2021-06-23 07:12 | PM.PN ---
Subjective Subjective: Interval history: infectious disease progress note no acute interim events since last seen completing 2 weeks of imipenem and linezolid today bone bx from femur with acinetobacter baumanii clinically appears to be improving planned for discharge home, not interested in SNF placement Medications: Reviewed: Yes Vitals/I&O/Wt Last Vital Signs Temp 97.7 F 06/23/21 04:00 Pulse 72 06/23/21 04:00 Resp 16 06/23/21 05:27 BP 122/80 06/23/21 04:00 Pulse Ox 94 06/23/21 05:27 06/22/21 06/23/21 06/23/21 22:59 06:59 14:59 Intake Total 750 / 1320 300 / 1620 Balance 750 / 1320 300 / 1620 Weight last 48 hrs Weight 93.803 kg Weight 94.256 kg Physical Exam Narrative: EXAM NARRATIVE: GEN: Awake, alert and oriented, no acute distress CVS: S1S2 N RS: CTA B/L Abd: Soft, nt/nd , bs+ ELECT[employer]IC TRAIN [employer]IVER: no focal neuro deficits Urinary Catheter Management^: Cosme: Cath Placed During This Visit: yes, but has since been removed by the nurse Reason for Continuing Indwelling Catheter: Decision to DC Catheter Urinary Catheter Date of Insertion: 06/16/21 Urinary Catheter Time of Insertion: 13:50 Date Urinary Catheter Removed: 06/19/21 Time Urinary Catheter Discontinued: 17:54 Data : 06/23/21 05:17 06/23/21 05:17 A&P Assessment and plan (1) Bacteremia: Status: Acute (2) Osteomyelitis of femur: Status: Acute Qualifiers: Osteomyelitis type: other chronic Laterality: unspecified laterality Qualified Code(s): M86.659 - Other chronic osteomyelitis, unspecified thigh (3) Rash and nonspecific skin eruption: Status: Acute (4) Adrenal insufficiency: Status: Acute Additional A&P Information # Bacteremia with Acenitobacter baumanii and VRE fecium Transient bacteremia on 06/07 Blood cx negative on admission, + 06/07, then clear on 06/09 serial check. May represent contamination, however with 2 organisms (one GPC and one GNR), one of which is Acinetobacter, hesitant to dismiss as contaminated culture. Additionally femur bone biopsy now with growth of Acinetobacter Baumanii. Isolate of acinetobacter appears resistant to multiple abx incl cefepime, CTX, FQs,. Imipenem SUNG 4. Meropenem SUNG, polymixin susceptibilities unable to be obtained at lab- requested send out from blood and bone- remain pending today. Given sustained clinical improvement on current regimen of imipenem and linezolid, she has continued treatment with treatment with same for 2 weeks from clearance (06/09-06/22). # osteomyelitis of femur in setting of open pressure ulcer : Appreciate bone biopsy, Also with growth of MDR Acinetobacter baumanii no good oral po option available for discharge Continuing imipenem not feasible for home discharge, unable to administer medication multiple times a day, difficulty with maintaining iv access and h/o multiple complications related to PICC line. She is refusing discharge to SNF. Currently patient clinically much improved after 2 weeks of treatment. Stable for discharge. No current cellulitis. Can be discharged off abx for now, will follow closely as outpatient in ID clinic once additional susceptibilities available. While tetracyclines may have been a presumptive oral option while pensing susceptibilities, patient reports unknown allergy. Hesitant to use trial of a listed allergen with recent presentation with possible SJS vs DRESS from unknown culprit. Recommend wound care follow up for local care Attestations Medical Necessity Statement*: per admitting Coding Level of Care Code Acute Operations And Maintenance Specialist for [facility] Fwd Diagnoses Bacteremia R78.81 Osteomyelitis of femur M86.659 Osteomyelitis type: other chronic Laterality: unspecified laterality Rash and nonspecific skin eruption R21 Adrenal insufficiency E27.40
[2021-06-23 07:16] LABS: Glucose Point of Care 78 mg/dL (70-110)
[2021-06-23] MEDS: albuterol 8 gm MDI 2 PUFF INHALATION (07:56)
[2021-06-23] MEDS: ondansetron 2 mg/ML SDV 2 mL 4 MG IVP (08:10)
[2021-06-23] MEDS: ferrous gluconate 324 mg Tablet PO (08:11)
[2021-06-23] MEDS: hydrocortisone 10 mg Tablet 5 MG PO (08:11)
[2021-06-23] MEDS: gabapentin 100 mg Capsule 200 MG PO ×2 (08:11→13:04)
[2021-06-23] MEDS: nystatin powder 15 gm Btl 1 APPLIC TOPICAL (08:12)
[2021-06-23] MEDS: pantoprazole DR 40 mg Tablet PO (08:12)
[2021-06-23] MEDS: levETIRAcetam 500 mg Tablet 1000 MG PO (08:12)
[2021-06-23] MEDS: midodrine 5 mg TABLET 10 MG PO (08:12)
[2021-06-23] MEDS: fluticasone nasal spray 16gm Btl 1 SPRAY INTRANASAL (08:20)
--- NOTE | 2021-06-23 11:04 | P.DS_ITS ---
Discharge Providers Date of Admission: 06/03/21 05:00 Date of Discharge: June 23, 2021 Attending Provider at Admission: Oralia Gabriel Attending Provider at Discharge: Bran Arita MD Diagnoses at Discharge Discharge Diagnosis (1) Bacteremia: Status: Acute (2) Osteomyelitis of femur: Status: Acute Qualifiers: Laterality: unspecified laterality Osteomyelitis type: other chronic Qualified Code(s): M86.659 - Other chronic osteomyelitis, unspecified thigh (3) Rash and nonspecific skin eruption: Status: Acute (4) Adrenal insufficiency: Status: Acute Reason for Visit Reason for Visit: OPEN WOUND L HIP Hospital Course Hospital Course 45-year-old female with a past medical history significant for diabetes mellitus, chronic heart failure with preserved EF, chronic obstructive pulmonary disease, chronic kidney disease, multiple extensive wounds including stage 3 left gluteal ulcer, stage IV bilateral heel pressure ulcer who is presenting with diffuse rash.Patient is a poor historian not very clear on onset of symptoms. the subjective fever and chills. Complaining of diffuse pain her particularly in left lower extremity. Patient was admitted to [facility] for sepsis secondary to left upper thigh decubitus ulcer with femur osteomyelitis, with acinteobacter bacteremia and positive bone cultures thank you biopsy and Enterobacter UTI Sepsis: Malloy CT scan she has showed: -Posterior left upper thigh decubitus ulcer with associated inflammatory mass and changes in the adjacent femur compatible with osteomyelitis -acinetobacter growing from bone biopsy -Blood cultures positive for VRE fecium -The lumbar spine is stable in appearance compared to 10/02/2020. There are findings of degenerative spondylosis. The findings at L5-S1 could represent chronic disc space infection however there are no adjacent soft tissue changes and the appearance of this level has not changed since 10/02/2020. -MRI of the lumbar spine showed no secondary features suggestive of discitis or osteomyelitis Urine Culture: E. coli, Enterobacter cloacae sensitive to imipenem -Infectious disease was consulted -Isolate of acinetobacter appears resistant to multiple abx incl cefepime, CTX, FQs,. Imipenem SUNG 4. Meropenem SUNG, polymixin susceptibilities unable to be obtained at lab- requested send out from blood and bone- remain pending today. -Patient clinically improved with 2 weeks of imipenem and Zyvox, wound care, given significant improvement after 2 weeks of treatment, no good oral options, difficulties with IV options, and significant clinical improvement, treatment was completed as inpatient from 06/09-06/22 -Continue local wound care, continue offloading, continue to be ambulatory, follow-up with Dr. smith Rash and nonspecific skin eruption: Diffuse Rash - nonspecific skin eruption, now flaking off, then resolves, biopsies unremarkable Adrenal insufficiency: florinef, hydrocortisone Midodrine 10 MG PO TID Stage IV pressure ulcer: -bilateral heels, left thigh -Wound care, offloading -On hospital admission March 28, 2021, had debridement -Continue offloading, wound care, monitor closely Status: Acute Acute kidney injury: Acute Kidney injury / Hyponatremia Admission Serum Creatinine 0.9 Resolved Alcohol intoxication: Withdrawal protocol Resolved DVT prophylaxis: Remains mobile on discharge, can ambulate greater than 100 feet, on aspirin 81 mg, discontinue Eliquis for DVT prophylaxis on discharge Hepatitis C antibody positive, will order genotype and PCR, follow-up as outpatient, follow-up with infectious disease for treatment Heart failure preserved ejection fraction Type 2 diabetes mellitus, no insulin on discharge, diet controlled Acute on chronic anemia secondary to history of GI bleed, hemoglobin now 8.4, status post 1 unit PRBC Eliquis discontinued on discharge, patient remains mobile History of COPD Hypothyroidism Anisocoria: We'll have patient follow with Dr. Rai, and neurology as outpatient Physical Exam Const: COMMON NORMALS: no acute distress and patient oriented x3 Resp: COMMON NORMALS: normal respiratory effort, No retractions, No use of accessory muscles and clear to auscultation bilaterally AUSCULTATION: clear to auscultation bilaterally Cardio: COMMON NORMALS: regular rate, regular rhythm, S1 normal heart sound present and S2 normal heart sound present RATE: regular rate RHYTHM: regular rhythm HEART SOUNDS: S1 normal heart sound present and S2 normal heart sound present GI: COMMON NORMALS: Normal to inspection, nondistended, normoactive bowel sounds present, Soft to palpation, non-tender, no masses and no bruits PALPATION: Yes Soft to palpation Extremity: COMMON NORMALS: no pedal edema Neuro: COMMON NORMALS: patient oriented x3 Psych: COMMON NORMALS: mental status grossly normal Urinary Catheter Management^: Cosme: Cath Placed During This Visit: yes, but has since been removed by the nurse Reason for Continuing Indwelling Catheter: Decision to DC Catheter Urinary Catheter Date of Insertion: 06/16/21 Urinary Catheter Time of Insertion: 13:50 Date Urinary Catheter Removed: 06/19/21 Time Urinary Catheter Discontinued: 17:54 Discharge Data Data Completed and Pending: Completed Studies During Hospitalization Category Date Time Status CT abdomen pelvis wo con 30871 Rout ine Cat Scan 06/05/21 09:[address] cervical spin wo con* [id number] Rout ine Cat Scan 06/05/21 11:[address] femur LT wo co n* [id number] Routine Cat Scan 06/05/21 09:[address] head wo/w con 28701 Routine Cat Scan 06/11/21 12:[address] lumbar spine w o con* [id number] Routi ne Cat Scan 06/05/21 11:[address] thoracic spin wo con* [id number] Rout ine Cat Scan 06/05/21 11:41 Completed XR acute abdomen series [id number] Routi ne Exams 06/18/21 08:00 Completed XR chest 1V nichole ble [id number] Routine Exams 06/06/21 07:00 Completed XR chest 1V nichole ble [id number] Stat Exams 06/05/21 15:52 Completed XR chest 1V nichole ble [id number] Urgent Exams 06/03/21 03:00 Completed MR lumbar spine w o con* [id number] Routi ne MRI 06/07/21 17:07 Completed Pathology: Surgic al [PTH] Routine Pth 06/08/21 13:04 Completed CV carotid duplex BI* [id number] Routine Ultrasound 06/13/21 20:59 Completed Pending at discharge Category Date Time Status Complete Blood Co unt w/Auto AM LABS Lab 06/24/21 04:00 Ordered Comprehensive Met abolic Panel AM LA BS Lab 06/24/21 04:00 Ordered Magnesium AM LABS Lab 06/24/21 04:00 Ordered Miscellaneous Ernestine t Routine Lab 06/15/21 19:22 Received Miscellaneous Ernestine t Stat Lab 06/19/21 13:50 Received Phosphorus AM LAB S Lab 06/24/21 04:00 Ordered Labs from last 24 hours 06/23/21 06/23/21 06/23/21 06:55 05:17 05:17 WBC 4.1 RBC 3.03 L Hgb 8.4 L Hct 28.1 L MCV 92.7 MCH 27.7 L MCHC 29.9 L RDW 17.2 H Plt Count 188 MPV 11.0 H Neut % (Auto) 42.6 Lymph % (Auto) 29.8 Hudspeth % (Auto) 10.8 Eos % (Auto) 14.2 Baso % (Auto) 2.4 Neut # (Auto) 1.74 L Lymph # (Auto) 1.2 [place] # (Auto) 0.4 Eos # (Auto) 0.6 Baso # (Auto) 0.1 Nucleated RBC % (a uto) 0 Nucleated RBCs # 0.0 Sodium 139 Potassium 4.1 Chloride 103 Carbon Dioxide 30 H Anion Gap 10.1 BUN 4 L Creatinine 0.6 GFR Calculation 107.2 Glucose 74 POC Glucose 78 Calculated Osmolal ity 284 L Calcium 8.1 L Phosphorus 3.4 Magnesium 1.5 L Total Bilirubin 0.7 AST 13 ALT < 5 Alkaline Phosphata se 121 H Total Protein 5.4 L Albumin 3.0 L Globulin 2.4 06/22/21 06/22/21 06/22/21 20:50 17:37 16:49 WBC RBC Hgb Hct MCV MCH MCHC RDW Plt Count MPV Neut % (Auto) Lymph % (Auto) [place] % (Auto) Eos % (Auto) Baso % (Auto) Neut # (Auto) Lymph # (Auto) [place] # (Auto) Eos # (Auto) Baso # (Auto) Nucleated RBC % (a uto) Nucleated RBCs # Sodium Potassium Chloride Carbon Dioxide Anion Gap BUN Creatinine GFR Calculation Glucose POC Glucose 111 H 113 H 63 L Calculated Osmolal ity Calcium Phosphorus Magnesium Total Bilirubin AST ALT Alkaline Phosphata se Total Protein Albumin Globulin 06/22/21 06/22/21 13:15 12:50 WBC RBC Hgb Hct MCV MCH MCHC RDW Plt Count MPV Neut % (Auto) Lymph % (Auto) [place] % (Auto) Eos % (Auto) Baso % (Auto) Neut # (Auto) Lymph # (Auto) [place] # (Auto) Eos # (Auto) Baso # (Auto) Nucleated RBC % (a uto) Nucleated RBCs # Sodium Potassium Chloride Carbon Dioxide Anion Gap BUN Creatinine GFR Calculation Glucose POC Glucose 71 59 L Calculated Osmolal ity Calcium Phosphorus Magnesium Total Bilirubin AST ALT Alkaline Phosphata se Total Protein Albumin Globulin Vitals: Last Vital Signs Temp 97.7 F 06/23/21 07:54 Pulse 79 06/23/21 07:58 Resp 18 06/23/21 08:15 BP 113/75 06/23/21 07:54 Pulse Ox 95 06/23/21 07:58 Discharge Plan Discharge Patient Disposition: Home Condition: Stable Prescriptions: New oxycodone 5 mg tablet 5 mg PO BID PRN (Reason: pain) 7 Days Qty: 14 RF: 0 nystatin [Nystop] 100,000 unit/gram Powder 1 applic topical BID Qty: 60 RF: 0 aspirin 81 mg tablet,delayed release (DR/EC) 81 mg PO DAILY 30 Days Qty: 30 RF: 0 Continued epinephrine [EpiPen 2-Tim] 0.3 mg/0.3 mL auto-injector 0.3 mg IM PRN PRN (Reason: Allergic Reaction) RF: 0 potassium chloride [Klor-Con M20] 20 mEq tablet,ER particles/crystals 20 meq PO BID@799,1999 RF: 0 folic acid 1 mg tablet 1 mg PO DAILY@0700 RF: 0 fluticasone propionate [Flonase Allergy Relief] 50 mcg/actuation spray,suspension 1 spray INTRANASAL BID@799,1999 RF: 0 cholecalciferol (vitamin D3) 125 mcg (5,000 unit) tablet 5,000 unit PO DAILY@0700 RF: 0 thiamine mononitrate (vit B1) [Vitamin B-1 (mononitrate)] 100 mg tablet 100 mg PO DAILY@0700 RF: 0 tizanidine [Zanaflex] 2 mg capsule 2 mg PO Q12H PRN (Reason: muscle spasticity) Qty: 10 RF: 0 Narcan 4 mg/actuation spray,non-aerosol 4 mg INTRANASAL PRN PRN (Reason: OVERDOSE) RF: 0 diphenhydramine HCl 25 mg Capsule 25 mg PO Q6H PRN (Reason: Itching) Qty: 30 RF: 0 polyethylene glycol 3350 [Miralax] 17 gram powder in packet 17 g PO DAILY@0700 RF: 0 levetiracetam [Keppra] 500 mg tablet 1,000 mg PO BID@799,1999 RF: 0 sennosides-docusate sodium 8.6-50 mg tablet 1 tab-cap PO BID@799,1999 RF: 0 pantoprazole 40 mg tablet,delayed release (DR/EC) 40 mg PO BID@799,1999 RF: 0 gabapentin 100 mg capsule 200 mg PO TID@0800,1399,1999 RF: 0 albuterol sulfate [Ventolin HFA] 90 mcg/actuation HFA aerosol inhaler 2 puff inhalation Q4H PRN (Reason: Shortness Of Breath) RF: 0 calcitriol 0.25 mcg capsule 0.5 mcg PO DAILY@0700 RF: 0 ferrous gluconate 324 mg (37.5 mg iron) tablet 324 mg PO BID@799,1999 RF: 0 midodrine 5 mg Tablet 10 mg PO TID PRN (Reason: Systolic Blood Pressure) 30 Days Qty: 90 RF: 2 hydrocortisone 10 mg Tablet 5 mg PO BID 60 Days Qty: 120 RF: 2 fludrocortisone 0.1 mg Tablet 0.1 mg PO DAILY 30 Days Qty: 30 RF: 3 Triple Antibiotic 3.5mg-400 unit- 5,000 unit/gram Ointment 1 applic topical BID Qty: 30 RF: 2 nystatin [Nystop] 100,000 unit/gram Powder 1 applic topical BID Qty: 60 RF: 0 furosemide [Lasix] 40 mg Tablet 40 mg PO DAILY MDD see pharmacy note Qty: 0 RF: 0 magnesium oxide 400 mg (241.3 mg magnesium) tablet 400 mg PO DAILY Qty: 0 RF: 0 levothyroxine 200 mcg capsule 300 mcg PO DAILY@0600 Qty: 0 RF: 0 Incruse Ellipta 62.5 mcg/actuation blister with device 1 inh INHALATION DAILY@0800 RF: 0 clonazepam 0.5 mg tablet 0.25 mg PO BID PRN (Reason: anxiety) Qty: 14 RF: 0 Discontinued fluconazole 100 mg tablet 200 mg PO DAILY@0700 RF: 0 Eliquis 5 mg tablet 2.5 mg PO BID@ RF: 0 Discharge Orders: Discharge Order (Routine); Ordered 06/23/21 Ordered By: Bran Arita Other Ambulatory Orders: DME: Jax (Order) Location: None Selected Ordered By: Herminio Ovalle Referrals: [facility] [Outside] Shelley Matson MD [Physician] - 1 month (hydrocephaluas) Hussein Rai MD [Physician] - 4-7 days (anisocoria ) Klaudia Smith MD [Hospitalist] - 2 weeks [facility], [Staff Physician] - 4-7 days (sacral ulcer) Jessica Jaffe MD [Physician] - (Patient will need appointment w/ 1-2 days of discharge. ) Discharge Diet: Cardiac Discharge Activity: Resume usual activity Patient Instructions: Opioid Safety Activity Restrictions/Additional Instructions: -Please avoid alcohol consumption -Please remain mobile, offloading pressure ulcers -Follow-up with wound care -Home health care wound care -Follow-up with Dr. Smith in 2 weeks Discharge Attestations Time Spent in Discharge Care*: less than 30 min Status at Discharge: Cognitive status at discharge: cognitively intact , Behavioral status at discharge: cooperative , Quality Metrics Clinical Quality Measures During this hospital stay, did patient experience: None Coding Level of Care Code Acute [facility] note Exam Detailed Diagnoses Bacteremia R78.81 Osteomyelitis of femur M86.659 Laterality: unspecified laterality Osteomyelitis type: other chronic Rash and nonspecific skin eruption R21 Adrenal insufficiency E27.40
[2021-06-23 12:05] LABS: Glucose Point of Care 94 mg/dL (70-110)
--- NOTE | 2021-06-23 13:29 | PC.CHAP ---
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 multigraph operator visit [] Patient/Family/Request visit [] Outpatient visit [xx] Follow-up visit [] Physician referral [] Code/Alert [xx] Routine visit [] Staff referral [] Actively dying [] Patient sleeping [] Family support [] [] Out of room [] Palliative care [] [] Receiving care in room [] Pre-surgical visit [] Trauma [xx] Long length of stay [] ICU visit [] Other: Relational/Emotional Strength [xx] Patient feels connected with others/family/visitors/staff [] Distress [] Loneliness/isolation [] Abandonment Spirituality of Patient [xx] Person of Angy [] Attends Quaker of their Angy [xx] Believes in Prayer [xx] Reads Bible or Muslim materials [] There are Spiritual issues to be addressed Manager Storage Interventions [xx] Prayer [xx] Active listening [xx] Non-anxious presence [] Spiritual/emotional support [] Crisis/trauma care [] Spiritual counseling [] Bereavement support [] Provided bereavement packet [] Provided Bible/devotional materials [] Provided toy/stuffed animal, coloring book to patient or family member [] Provided Communion [] Anointing/[place] [] Salvation [xx] Completed spiritual assessment [] Other: Impact on Illness or Injury [] Angry [] Fearful [] Anxious [] Often cries [] Exhaustion [] Unable to work [] Unable to attend spiritism [] Unable to walk/stand [] Unable to read [] Unable to drive [] Unable to eat/drink [] Unable to sleep [] Unable to be with family [] Patient intubated [] Other: Summary Patient is excited! After 21 days she is going home. She will have her familiar bed, manriquez and scenery. She can pet her dogs and visit her grandchildren ages 6 months to 8 years. She stated this alone is giving her better mental health and will affect her physical health also. All home health and housekeeping needs have been arranged for her. She is longing to get home. Time spent with patient 13 minutes
--- NOTE | 2021-06-23 14:36 | PC.NURSE ---
DC central line. Catheter intact after pulled and pressure applied for 10mins, site covered with pressure drsg. Pt educated in regards to applying pressure to site if she noticed bleeding. Patient tolerated procedure well.
--- NOTE | 2021-06-27 10:56 | PC.SOCIAL ---
pt reported that home health came out but didn't come in. spoke with [facility]. per [facility], they are unable to see the patient due to pt wanting to have wound care done out of a vehicle. the pt won't allow anyone into the home, so [facility] is unable to see patient. 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
== END 2021-06-23 14:42 | disposition home health service (06) | DRG 853 ==
LOC: ER 05:15 → ICU 05:34 → MEDSURG 06-07 15:43
PROVIDERS: Internal Medicine; Student in an Organized Health Care Education/Training Program; Surgery; Admitting Provider Hospitalist; Emergency Provider Emergency Medicine; Visit Provider Family Medicine
DX: A41.9 Sepsis, unspecified organism (principal); L89.323 Pressure ulcer of left buttock, stage 3; L89.624 Pressure ulcer of left heel, stage 4; L89.614 Pressure ulcer of right heel, stage 4; R65.21 Severe sepsis with septic shock; T83.518A Infection and inflammatory reaction due to other urinary catheter, initial encounter; M86.8X5 Other osteomyelitis, thigh; I50.32 Chronic diastolic (congestive) heart failure; E27.40 Unspecified adrenocortical insufficiency; N17.9 Acute kidney failure, unspecified; E87.1 Hypo-osmolality and hyponatremia; L03.116 Cellulitis of left lower limb; Z16.30 Resistance to unspecified antimicrobial drugs; E11.22 Type 2 diabetes mellitus with diabetic chronic kidney disease; E11.69 Type 2 diabetes mellitus with other specified complication; N18.30 Chronic kidney disease, stage 3 unspecified; J44.9 Chronic obstructive pulmonary disease, unspecified; L89.899 Pressure ulcer of other site, unspecified stage; F10.229 Alcohol dependence with intoxication, unspecified; B19.20 Unspecified viral hepatitis C without hepatic coma; Z86.718 Personal history of other venous thrombosis and embolism; E21.3 Hyperparathyroidism, unspecified; E66.9 Obesity, unspecified; Z68.36 Body mass index [BMI] 36.0-36.9, adult; Z95.828 Presence of other vascular implants and grafts; Z86.711 Personal history of pulmonary embolism; I07.1 Rheumatic tricuspid insufficiency; E55.9 Vitamin D deficiency, unspecified; Z79.51 Long term (current) use of inhaled steroids; E87.6 Hypokalemia; E83.42 Hypomagnesemia; I95.9 Hypotension, unspecified; E86.0 Dehydration; R21 Rash and other nonspecific skin eruption; D64.9 Anemia, unspecified; Z96.0 Presence of urogenital implants; M46.40 Discitis, unspecified, site unspecified; M51.36 Other intervertebral disc degeneration, lumbar region; Y73.1 Therapeutic (nonsurgical) and rehabilitative gastroenterology and urology devices associated with adverse incidents; B96.20 Unspecified Escherichia coli [E. coli] as the cause of diseases classified elsewhere; B95.2 Enterococcus as the cause of diseases classified elsewhere; B96.89 Other specified bacterial agents as the cause of diseases classified elsewhere; H57.02 Anisocoria; K22.70 Barrett's esophagus without dysplasia; D18.1 Lymphangioma, any site
CPT/HCPCS: 36415; 36416; 36430; 36569; 36592; 70470; 71045; 72125; 72128; 72131; 72148; 73700; 74022; 74176; 77001; 80048; 80053; 80074; 80202; 80307; 81001; 82274; 82533; 82550; 82595; 82728; 82962; 83605; 83690; 83735; 83880; 84100; 84132; 84145; 84443; 84484; 85014; 85018; 85025; 85610; 85651; 86140; 86403; 86592; 86850; 86900; 86920; 87040; 87070; 87077; 87086; 87176; 87186; 87205; 87493; 87522; 87806; 87902; 88304; 93005; 93880; 94640; 94664; 96365; 96367; 96372; 96375; 96376; 97110; 97116; 97162; 97167; 97530; 97535; 99285; C1751; J0743; J1170; J1200; J1644; J1815; J1940; J1956; J2250; J2270; J2405; J2704; J2765; J3010; J3370; J3475; J3480; J3490; J3535; J7030; J7040; J7050; J8499; P9016; P9047; Q9967